=== PATIENT | male | born 1955 | race Caucasian/White ===

== ENCOUNTER 2022-02-25 22:36 | Inpatient (IN) | payer MEDICARE, SELFPAY ==
--- NOTE | 2022-02-25 22:45 | RT.EKG_ITS ---
APPROVED REPORT Exam: Resting ECG Reason for Exam: confusion Patient Location: E HR:60 bpm ECG Measurements Heart Rate 60 AXIS IL 268 P 42 QRSd 104 QRS 42 QT 444 T 32 QTc 446 Conclusion Sinus rhythm...normal P axis, V-rate 60- 99 Prolonged IL interval...IL >220, V-rate 50- 90 I have reviewed and interpreted ECG and agree with software generated interpretation.
[2022-02-25 22:46] VITALS: BP 183/83; PULSE 62; RESP 16; TEMP 36.8; O2SAT 96
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
--- NOTE | 2022-02-25 23:00 | DI.CT_ITS ---
Exam(s) CT HEAD WO EXAM: CT HEAD WO CLINICAL HISTORY: recent stroke, agressive behavior. TECHNIQUE: Imaging Protocol: Axial computed tomography images with coronal and sagittal reformatted images were created and reviewed COMPARISON: No exams were available for comparison FINDINGS: Ventricles and Extra axial spaces: Normal in size and morphology for the patient's age. Hemorrhage: None. Cerebral parenchyma: Bilateral electrodes terminating in the basal ganglia regions creating mild arleth fact. Midline shift: None. Brainstem/Cerebellum: Normal. Calvarium: Normal. Visualized Paranasal sinuses/Mastoids: Clear. Soft Tissues: Unremarkable. IMPRESSION: Brain stimulator device. No acute intracranial process. RADIATION DOSE DELIVERED: 1,048.27mGy.cm Total DLP DATA REPOSITORY: All CT scans at this facility are submitted to the National Radiology Data Registry (NRDR) Dose Index Registry (DIR) with the [employer] (ACR). RADIATION OPTIMIZATION: All CT scans at this facility use at least one of these dose optimization te chniques: automated exposure control; mA and/or kV adjustment per patient size (includes targeted exa ms where dose is matched to clinical indication); or iterative reconstruction.
[2022-02-25 23:42] LABS: Abs Immature Grans 0.02 10^3/uL (0.0-0.06); Absolute Basophil Count 0.03 10^3/uL (0.0-0.2); Absolute Eosinophil Count 0.06 10^3/uL (0.0-0.7); Absolute Lymphocyte Count 3.61 10^3/uL (1.2-3.4); Absolute Monocyte Count 0.82 10^3/uL (0.1-0.8); Absolute Neutrophil Count 6.54 10^3/uL (1.2-6.7); Basophils % 0.3; Eosinophils % 0.5; HCT 37.6 % (40.0-50.0); HGB 12.6 g/dL (13.5-17.5); Immature Grans % 0.2; Lymphocytes % 32.6; MCHC 33.5 % (32.0-36.0); MCV 87 fL (80-95); MPV 11.8 fL (8.0-11.0); Monocytes % 7.4; Platelet Count 149 10^3/uL (130-400); RBC 4.34 10^6/uL (4.36-5.78); RDW 13.5 % (11.8-14.1); RDW-SD 42.4 fL; WBC 11.08 10^3/uL (4.4-10.8)
[2022-02-25 23:43] LABS: Source Nasal/Nares
[2022-02-25 23:58] LABS: Ammonia < 10 umol/L (11-32)
[2022-02-26 00:14] LABS: ALT 46 U/L (16-63); AST 22 U/L (15-37); Albumin 4.5 g/dL (3.4-5.0); Alkaline Phosphatase 99 U/L (46-116); Anion Gap 9.7 mmol/L (3-11); BUN 16 mg/dL (7-18); Bilirubin, Total 1.1 mg/dL (0.2-1.0); CO2 26.3 mmol/L (21.0-32.0); Calcium 9.5 mg/dL (8.5-10.1); Chloride 104 mmol/L (98-107); ETHANOL BLOOD < 3.0 mg/dL (<10); Glucose 143 mg/dL (74-106); Potassium 3.7 mmol/L (3.5-5.1); Sodium 140 mmol/L (136-145); TSH (W/Ref FT4) 3.56 uIU/mL (0.36-3.74); Total Protein 7.4 g/dL (6.4-8.2)
[2022-02-26 00:26] LABS: Acetaminophen < 2 ug/mL (10-30); Salicylate 4.8 mg/dL (<2.8)
--- NOTE | 2022-02-26 00:38 | DI.VRAD_ITS ---
PROCEDURE INFORMATION: Exam: CT Head Without Contrast Exam date and time: 02/25/2022 11:48 PM Age: 66 years old Clinical indication: Recent stroke, agressive behavior; Prior surgery; Surgery date: 6+ months; Surgery type: Implanted device TECHNIQUE: Imaging protocol: Computed tomography of the head without contrast. Radiation optimization: All CT scans at this facility use at least one of these dose optimization techniques: automated exposure control; mA and/or kV adjustment per patient size (includes targeted exams where dose is matched to clinical indication); or iterative reconstruction. COMPARISON: No relevant prior studies available. FINDINGS: Limitations: Intracranial and subcutaneous electrodes cause streak artifact, which limits evaluation of the adjacent brain parenchyma. Tubes, catheters and devices: There is evidence of bilateral electrodes terminating in the region of the subthalamic nuclei. Brain: There is a region of hypodensity seen in the left parietal and left temporal regions, which may represent an infarct. There is a linear region of hyperdensity seen within this infarct (image 24, series 8). No mass effect or midline shift. Cerebral ventricles: The ventricles are prominent in size, at least in part due to global cerebral volume loss. Paranasal sinuses: The paranasal sinuses are clear. No air-fluid levels. Mastoid air cells: The mastoid air cells are unremarkable. Bones/joints: No acute fracture. Soft tissues: No subcutaneous hematoma. IMPRESSION: 1. Limited examination due to streak artifact from electrodes. Evidence of small prior infarct in the left parietal and left temporal lobes. Linear hyperdensity in the region of infarct, may represent microhemorrhage, cortical laminar necrosis or evolving hematoma. Compare with prior imaging for stability. 2. THIS REPORT CONTAINS FINDINGS THAT MAY BE CRITICAL TO PATIENT CARE. The findings were verbally communicated via telephone conference with Dr. ALEXIS, at 12:28 AM EDT on 02/26/2022. The findings were acknowledged and understood. Dictated and Authenticated by: Kaylyn Carolina MD. Ordering:RYLEE Pereira MD
[2022-02-26 00:42] LABS: COVID-19 PCR Negative (Negative)
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
[2022-02-26 02:46] LABS: Bilirubin Negative (Negative); Blood Negative (Negative); Clarity Clear (Clear); Glucose Negative (Negative); Ketones Negative (Negative); Leukocyte Esterase Negative (Negative); Nitrite Negative (Negative); Specific Gravity 1.025 (1.005-1.025); Urobilinogen 0.2 EU/dL (Up TO 0.2); pH 5.5 (5-8)
[2022-02-26] MEDS: Acetaminophen 500 MG TAB 1000 MG PO (03:28)
--- OUTSIDE RECORDS SUMMARY | 2022-02-26 03:58 | XMS_ITS | Encounter Summary ---
:1955 Author Organization [facility] [place] [address] Care Team Providers Name Role Phone Griselda Stanley MD Primary Care Provider Reason for Referral Physical Therapy (Routine) - Pending Review Specialty Diagnoses / Procedures Referred By Contact Refer red To Contact Physical Therapy Diagnoses At risk for falls Winnie Stevenson, Physical Therapy, [facility] [address] [place], [place] [id number] [place] [id number] Referral ID Status Reason Start Expiration Visits Visits Date Date Requested Authorized [id number] Pending Evaluate and 09/04/2021 03/03/2022 12 12 Review Treat Reason for Visit Reason Onset Date Comments Other 09/04/2021 Encounter Details Date Type Department Care Team Description 09/04/2021 Telephone Neurology at [facility] Winnie Stevenson, [facility] [place] [address] [place] [address] NEUROLOGY [place], [place] [address] (Wo rk) Social History Tobacco Use Types Packs/Day Years Used Date Former Smoker Cigarettes Quit: 12/10/18 78 Smokeless Tobacco: Never Used Alcohol Use Standard Drinks/Week Comments No 0 (1 standard drink = 0.6 oz pure alcoho l) Physical Activity Answer Date Recorded On average, how many days per week do you engage in moderate 3 days 09/22/2021 to strenuous exercise (like walking fast, running, jogging, dancing, swimming, biking, or other activities that cause a light or heavy sweat)? On average, how many minutes do you engage in exercise at No t asked this level? Financial Resource Strain Answer Date Recorded How hard is it for you to pay for the very basics like Somew hat hard 09/22/2021 food, housing, medical care, and heating? Food Insecurity Answer Date Recorded Within the past 12 months, you worried that your food would Never true 09/22/2021 run out before you got money to buy more. Within the past 12 months, the food you bought just didn't N ever true 09/22/2021 last and you didn't have money to get more. Transportation Needs Answer Date Recorded In the past 12 months, has lack of transportation kept you f rom No 09/22/2021 medical appointments or from getting medications? In the past 12 months, has lack of transportation kept you f rom No 09/22/2021 meetings, work, or getting things needed for daily living? Housing Stability Answer Date Recorded In the last 12 months, was there a time when you were not ab le No 09/22/2021 to pay the mortgage or rent on time? In the last 12 months, how many places have you lived? 1 09/22/2021 In the last 12 months, was there a time when you did not hav e a No 09/22/[address] or slept in a nursing home (including now)? Sex Assigned at Date Recorded Not on file documented as of this encounter Miscellaneous Notes Telephone Encounter - Roxanna Alatorre RN - 09/04/2021 1:20 PM EST I phoned spouse back. Spouse reports pt is losing ground. She states he is having severe issues with his right ankle andfoot. She states it bends down under and won't support his weight. She has tried braces and sturdy shoes but by the afternoon he can barely walk as his foot won't support his weight and he needs to usea wheelchair. She states he is sitting down now and his Left foot is normal but his right foot is resting on it's side/ankle. She states he has no control of his right foot and he falls a lot. She states he has no control of his right foot and can't straighten it. She states they will try PT again but states they don't really suggest what type of brace would be right. She states they tell me that is not my job. She states PT referral should go to [facility]. Plan: I will forward to Winnie Stevenson for review. Telephone Encounter - Roxanna Alatorre RN - 09/04/2021 9:22 AM EST I attempted to phone pt/spouse to see how pt is doing. There was no answer. Message left on named voice mail to call back [phone]. documented in this encounter Plan of Treatment Upcoming Encounters Date Type Specialty Care Team Description 03/20/2022 Office Visit Neurology Vishnu Hooper MD [facility] NEUROLOGY DEPT. [place], [place] [address] (Wo rk) Scheduled Referrals Name Type Priority Associated Diagnoses Order S chedule Referral to Outpatient Referral Routine At risk for falls Ord ered: Physical Therapy 09/04/2021 documented as of this encounter Visit Diagnoses Diagnosis At risk for falls Personal history of fall documented in this encounter Care Teams Resolution Manager Relationship Specialty Start Date End Date Griselda Stanley MD PCP - General 07/04/10 02/03/22 documented as of this encounter
--- OUTSIDE RECORDS SUMMARY | 2022-02-26 03:58 | XMS_ITS | Encounter Summary ---
:1955 Author Organization [facility] [place] [place] [address] Care Team Providers Name Role Phone Griselda Stanley MD Primary Care Provider Reason for Visit Reason Onset Date Comments Medical Care Coordination 05/03/2021 Encounter Details Date Type Department Care Team Description 05/03/2021 Telephone Neurology at [facility] Margareth Rose, Medical Care [facility] [place] [address] Social History Tobacco Use Types Packs/Day Years [...] place to sleep or slept in a assisted (including now)? Sex Assigned at Date Recorded Not on file documented as of this encounter Miscellaneous Notes Telephone Encounter - Margareth Rose MSW - 05/03/2021 10:27 AM EDT Left message for Ana Lilia and Marcell to follow up on if they had been able to obtain the U-Step walker recommended by PT. Encouraged them to call back if ART G[employer] could be of support and/or assistance ROSCOE Nick Continuing Glassware Defect Repairer Outpatient Neurology Clinic Pager [phone] documented in this encounter Plan of Treatment Upcoming Encounters Date Type Specialty Care Team Description 03/20/2022 Office Visit Neurology Vishnu Hooper MD [facility] NEUROLOGY DEPT. [place], [place] [address] (Wo rk) documented as of this encounter Visit Diagnoses Not on filedocumented in this encounter Care Teams Supply Clerk Relationship Specialty Start Date End Date Griselda Stanley MD PCP - General 07/04/10 02/03/22 documented as of this encounter
--- OUTSIDE RECORDS SUMMARY | 2022-02-26 03:58 | XMS_ITS | Encounter Summary ---
:1955 Author Organization [facility] [place] [address] Care Team Providers Name Role Phone Griselda Stanley MD Primary Care Provider Encounter Details Date Type Department Care Team Description 07/12/2021 Telephone Neurology at [facility] Winnie Stevenson, [facility] [place] [address] [facility] [phone] NEUROLOGY [place] [phone] (Wo rk) Social History Tobacco Use Types [...] place to sleep or slept in a jail (including now)? Sex Assigned at Date Recorded Not on file documented as of this encounter Miscellaneous Notes Telephone Encounter - Winnie Stevenson APRN - 07/12/2021 4:43 PM EST 07/12/21 4:43 PM Started taking Amantadine 200mg daily on 07/05 (last Saturday). 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 Hallucinations started on Saturday. Saturday Marcell didn't know who Ana Lilia was. He is currently unable to feed himself. She started giving him one pill a day on Saturday. She feels he is a little better, he can at least call out for her and hold a conversation now. 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 Picking at objects that aren't there. He has had 2 previous UTIs over the previous 2 years. Ana Lilia will call PCP and have a UA done. I will have our nurse fax this over first thing in the morning. I also prescribed some low dose Seroquel, 12.5mg nightly prn to help with hallucinations/behavior should Ana Lilia need this for safety. She currently feels he and she are safe. Last QTc in December She wonders what to do about his ankle. This started last December when he was hospitalized. We went overthe EMG studies which showed some peripheral neuropathy. I explained that there can be several causes for this including diabetes, smoking, etc. Once we get his mentation stabilized, we should bring him back into look at other possible causes. Winnie Stevenson APRN documented in this encounter Plan of Treatment Upcoming Encounters Date Type Specialty Care Team Description 03/20/2022 Office Visit Neurology Vishnu Hooper MD [facility] NEUROLOGY DEPT. [place], [place] [address] (Wo rk) Scheduled Orders Name Type Priority Associated Diagnoses Order S chedule Urinalysis with reflex Lab Routine Altered mental sta tus, Expected: 07/12/2021, Culture unspecified altered Expires: 01/10/2023 mental status type documented as of this encounter Visit Diagnoses Diagnosis Altered mental status, unspecified alter ed mental status type documented in this encounter Care Teams Caser Up Relationship Specialty Start Date End Date Griselda Stanley MD PCP - General 07/04/10 02/03/22 documented as of this encounter
--- OUTSIDE RECORDS SUMMARY | 2022-02-26 03:58 | XMS_ITS | Encounter Summary ---
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 Acute CVA (cerebrovascular accident) Cerebrovascular accident (CVA), unspecified mechanism Aphasia Dysarthria Gilbert Barksdale MD [facility] Neurology [address] [place] [phone] Referral ID Status Reason Start Date Expiration Visits Visits Date Requested Authorized [id number] Authorized Consult, 02/13/2022 02/13/2023 1 1 Test & Treat Encounter Details Date Type Department Care Team Description 02/13/2022 Transcribe Orders eDH Incoming Rachel Barksdale i schemic stroke; Referrals [place] Acute ischemic left middle cerebral sarah ry (MCA) stroke; [phone] [address] [facility] Acute CVA (cerebrovascular accident); [place], [place] Cerebrovascul ar accident (CVA), unspecified mechanism; [id number] Aphasia; [phone] Dysarthria (Work) Social History Tobacco Use Types Packs/Day Years [...] place to sleep or slept in a skilled nursing (including now)? Sex Assigned at Date Recorded Not on file documented as of this encounter Plan of Treatment Upcoming Encounters Date Type Specialty Care Team Description 03/20/2022 Office Visit Neurology Vishnu Hooper MD [facility] NEUROLOGY DEPT. [place], [place] [address] (Wo rk) Scheduled Referrals Name Type Priority Associated Diagnoses Order S chedule Referral to Outpatient Referral Routine Arterial ischemic Ord ered: Neurology stroke 02/13/2022 Acute ischemic left middle cerebral artery (MCA) str tres Acute CVA (cerebrovascular accident) Cerebrovascular accident (CVA), unspecified mechanism Aphasia Dysarthria documented as of this encounter Visit Diagnoses Diagnosis Arterial ischemic stroke Unspecified cerebral artery occlusion wi th cerebral infarction Acute ischemic left middle cerebral sarah ry (MCA) stroke Unspecified cerebral artery occlusion wi th cerebral infarction Acute CVA (cerebrovascular accident) Cerebrovascular accident (CVA), unspecif ied mechanism Aphasia Dysarthria documented in this encounter Care Teams Typesetting Machine Tender Relationship Specialty Start Date End Date None PCP - General 02/04/22 None documented as of this encounter
--- OUTSIDE RECORDS SUMMARY | 2022-02-26 03:58 | XMS_ITS | Encounter Summary ---
:1955 Author Organization [facility] [place] [address] Care Team Providers Name Role Phone Griselda Stanley MD Primary Care Provider Reason for Visit Reason Onset Date Comments Medical Care Coordination 04/13/2021 Encounter Details Date Type Department Care Team Description 04/13/2021 Notes Only Neurology at [facility] Margareth Rose, Medical Care [facility] [place] [address] Social History Tobacco Use Types Packs/Day [...] place to sleep or slept in a detention (including now)? Sex Assigned at Date Recorded Not on file documented as of this encounter Progress Notes Margareth Rose, VICTORIAN LITERATURE PROFESSOR - 04/13/2021 11:56 AM EDT Received referral from [facility] to assist Marcell and , Ana Lilia, with determining which walker to get andif it will be covered by insurance. Chart reviewed. Called their home phone and spoke with Ana Lilia. Established rapport and spent time getting to know Ana Lilia and Marcell. Ana Lilia reports she and Marcell have been for 47 years with his Parkinson's disease diagnosis being about 25 years ago. Ana Lilia shares that they have one son, who resides 1.5 hours and a 4 yo granddaughter that they see at least monthly. Ana Lilia reports that her family all reside in [place], but one of patient's siblings is more local. Ana Lilia feels fortunate that she is able to continue working (remotely currently) so that she can provide support to Marcell whom she feels cannot be left alone for extended periods at this time due to recent falls. Ana Lilia notes that due to her employment, they do not qualify for Medicaid and the only respite time she gets is her weekly trip the dump and the grocery store. VICTORIAN LITERATURE PROFESSOR normalized the challenges of family caregiving and validated Ana Lilia's emotions. Ana Lilia acknowledged some feelings of grief and anger and feels like she can't share these feelings with family/friends.VICTORIAN LITERATURE PROFESSOR offered support. Discussed caregiving support groups and Ana Lilia was open to receiving more information on this. VICTORIAN LITERATURE PROFESSOR agreed to send information on [employer] forum that has been started by and the resources available at [email or web address] Also reinforced that this VICTORIAN LITERATURE PROFESSOR would be available for ongoing support to assist not just Marcell but Ana Lilia as well Discussed Marcell's recent falls and current care needs. Ana Lilia reports that she recently purchased an electric scooter as she felt it would allow Marcell to remain as independent possible. They have not yet received it, but did obtain both a transport wheelchair and a standard walker (which is too short forRick per Ana Lilia). Ana Lilia would like to get a more appropriate walker for Marcell through insurance. Home health services have ended for Marcell, but he continues to do outpatient PT at [facility] twice/week. Sent Ana Lilia resources via email. Reached out to the rehab department at [facility] and am awaiting a call back to see if they can recommend the most appropriate walker. ROSCOE Nick Department of Neurology Continuing College Instructor documented in this encounter Plan of Treatment Upcoming Encounters Date Type Specialty Care Team Description 03/20/2022 Office Visit Neurology Vishnu Hooper MD [facility] NEUR[facility] DEPT. [place], [place] [address] (Wo rk) documented as of this encounter Visit Diagnoses Not on filedocumented in this encounter Care Teams Historic Sites Registrar Relationship Specialty Start Date End Date Griselda Stanley MD PCP - General 07/04/10 02/03/22 documented as of this encounter
--- OUTSIDE RECORDS SUMMARY | 2022-02-26 03:58 | XMS_ITS | Encounter Summary ---
:1955 Author Organization [facility] [place] [address] Care Team Providers Name Role Phone Griselda Stanley MD Primary Care Provider Reason for Visit Reason Onset Date Comments Medical Care Coordination 11/20/2021 Vacation/respi te Encounter Details Date Type Department Care Team Description 11/20/2021 Notes Only Neurology at [facility] Margareth Rose, Medical Care [facility] (Vacation/respite) [place] [phone] Social History Tobacco Use Types Packs/Day [...] place to sleep or slept in a long-term (including now)? Sex Assigned at Date Recorded Not on file documented as of this encounter Progress Notes Margareth Rose MSW - 11/20/2021 11:59 PM EDT Received voicemail from Arlyn asking for guidance on her taking a vacation with family. Called Arlyn who relayed that she has been invited by her sister and two friends to join them for a vacation in May. Arlyn reports feeling guilty about leaving Marcell in the care of someone else. Reinforced the importance of caregiver respite and normalized her feelings of ambiguity about going.Provided reassurance that she should not feel guilty as she is being thoughtful to Marcell's needs and preferences. Encouraged her to connect with a personal care agency prior to her trip, so she and Marcell can meet the workers and build trust with them. ROSCOE Nick Continuing Quality Management Coordinator Outpatient Neurology Clinic Pager [phone] documented in this encounter Plan of Treatment Upcoming Encounters Date Type Specialty Care Team Description 03/20/2022 Office Visit Neurology Vishnu Hooper MD [facility] [place] NEUROLOGY DEPT. [place], [place] [address] (Wo rk) documented as of this encounter Visit Diagnoses Not on filedocumented in this encounter Care Teams Golf Cart Attendant Relationship Specialty Start Date End Date Griselda Stanley MD PCP - General 07/04/10 02/03/22 documented as of this encounter
--- OUTSIDE RECORDS SUMMARY | 2022-02-26 03:58 | XMS_ITS | Encounter Summary ---
:1955 Author Organization [facility] [place] [address] Care Team Providers Name Role Phone Griselda Stanley MD Primary Care Provider Reason for Visit Reason Onset Date Comments Medical Care Coordination 09/01/2021 Ongoing caregi lupe support Encounter Details Date Type Department Care Team Description 09/01/2021 Notes Only Neurology at [facility] Margareth Rose, Medical Care [facility] ACQUISITION SPECIALIST Coordinat ion ([address] caregiver support) [place] [address] Social History Tobacco Use Types Packs/Day [...] place to sleep or slept in a m[facility]p (including now)? Sex Assigned at Date Recorded Not on file documented as of this encounter Progress Notes Margareth Rose MSW - 09/01/2021 11:59 PM EST Contacted Arlyn (Marcell's ) at home to reassess their functioning. Arlyn reports that Marcell has gotten weaker as his ankle continues to give him trouble making transfers and ambulation difficult. They do not have any family nearby, so Arlyn tries to limit leaving the house to once/week for groceries. She tries to get Marcell all set up before she leaves and makes him promise not to get up. She did share an incident when she went outside early in the morning and he gotout of bed and fell trying to look for her. They are planning to travel to [place] to visit family. Arlyn's brother has arranged a hotel for them andhis house is fully accessible as he has a disabled son. Arlyn is aware of their upcoming appointment, but is disappointed that she never heard back about moving up appointment or getting referrals (if needed) for Marcell's ankles. Agreed to forward requests again on Saturday and follow up with her. ROSCOE Nick Continuing Professor Of Business Administration Outpatient Neurology Clinic Pager [phone] documented in this encounter Plan of Treatment Upcoming Encounters Date Type Specialty Care Team Description 03/20/2022 Office Visit Neurology Vishnu Hooper MD [facility] NEUR[facility] DEPT. [place], [place] [address] (Wo rk) documented as of this encounter Visit Diagnoses Not on filedocumented in this encounter Care Teams Trailer Sections Assembler Relationship Specialty Start Date End Date Griselda Stanley MD PCP - General 07/04/10 02/03/22 documented as of this encounter
--- OUTSIDE RECORDS SUMMARY | 2022-02-26 03:58 | XMS_ITS | Encounter Summary ---
:1955 Author Organization [facility] Address [facility] [place] [address] Care Team Providers Name Role Phone Griselda Stanley MD Primary Care Provider Reason for Visit Reason Onset Date Comments Medical Care Coordination 11/07/2021 Ongoing suppor t Encounter Details Date Type Department Care Team Description 11/07/2021 Notes Only Neurology at [facility] Margareth Rose, Medical Care [facility] TILE CONDUIT LAYER Coordinat ion ([address] support) [place] [phone] Social History Tobacco Use Types Packs/Day [...] place to sleep or slept in a [place] (including now)? Sex Assigned at Date Recorded Not on file documented as of this encounter Progress Notes Margareth Rose MSW - 11/07/2021 11:59 PM EDT Contacted Arlyn to see how she and Marcell have been doing. Arlyn reports Marcell did some more PT and hada new brace recommended for his ankle, but Medicare has denied paying for it as they had previously covered a non-customized brace. Arlyn reports they are in the process of appealing the denial and in the meantime, she has learned to wrap his ankle to give it more support. Arlyn reports that Marcell's sister and with the support of Marcell's family they were able totravel down and see her. Arlyn was also eager to share that she had been able to take Marcell with her to the grocery store where he used a motorized cart and we shopped together like a real couple. Arlyn continues to balance work and Marcell's care and notes that she has not been able to connect withany of the support groups or caregiver classes due to her work schedule. Sent her the information roselyn group that meets on Saturday and is comprised of two groups (one for patients and one for carers). Encouraged Arlyn to reach out as needed for support and resources and provided assurance that I would continue to check in periodically. Margareth Rose, TILE CONDUIT LAYER Continuing Cook Pressure Outpatient Neurology Clinic Pager [phone] documented in this encounter Plan of Treatment Upcoming Encounters Date Type Specialty Care Team Description 03/20/2022 Office Visit Neurology Vishnu Hooper MD [facility] NEUROLOGY DEPT. [place], [place] [address] (Wo rk) documented as of this encounter Visit Diagnoses Not on filedocumented in this encounter Care Teams Therapeutic Dietitian Relationship Specialty Start Date End Date Griselda Stanley MD PCP - General 07/04/10 02/03/22 documented as of this encounter
--- OUTSIDE RECORDS SUMMARY | 2022-02-26 03:58 | XMS_ITS | Encounter Summary ---
:1955 Author Organization [facility] [address] Care Team Providers Name Role Phone None Primary Care Provider Unavailable Reason for Visit Reason Comments Cerebrovascular Accident Encounter Details Date Type Department Care Team Description 02/04/2022 Emergency Emergency Department Dhruv Limon Ce rebrovascular accident [facility] ([facility]), unspecified [facility] mechanism [facility] EMERGENCY MEDICINE [place] [phone] Social History Tobacco Use Types Packs/Day Years Used Date Never Assessed Physical Activity Answer Date Recorded On average, [...] on file documented as of this encounter Last Filed Vital Signs Vital Sign Reading Time Taken Comments Blood Pressure 150/76 02/04/2022 12:45 PM EDT Pulse 69 02/04/2022 12:45 PM EDT Temperature 36.3 ??C (97.3 ??F) 02/04/2022 11:18 AM EDT Respiratory Rate 16 02/04/2022 12:45 PM EDT Oxygen Saturation 95% 02/04/2022 12:45 PM EDT Inhaled Oxygen Concentration - - Weight - - Height - - Body Mass Index - - documented in this encounter Medications at Time of Discharge Medication Sig Dispensed Refills Start Date End Date QUEtiapine (SEROquel) 25 Take 0.5 tablets by 5 tablet 0 mg Tablet mouth nightly as needed. gabapentin (Neurontin) 100 mg daily. 0 02/16/2021 100 mg Capsule metoprolol tartrate Take 50 mg by mouth 0 021 (Lopressor) 100 mg daily. Half in the Tablet morning and half at night DULoxetine DR (Cymbalta) Take 60 mg by mouth 2 0 12/01/2020 60 mg Capsule, Delayed times daily. Release(E.C.) metFORMIN (GLUCOPHAGE) Take 1,000 mg by mouth 0 0 11/09/2020 1,000 mg Tablet 2 times daily. metoprolol succinate XL Take 1 tablet by mouth 30 tablet 12 12/27/2020 (Toprol-XL) 50 mg Tablet daily. Sustained Release 24 hr blood sugar diagnostic by Other route. Use as 0 strips Strip instructed carbidopa-levodopa Take 1 tablet by mouth 150 tablet 3 08/23 (Sinemet) 25-250 mg 5 times daily. Take at TabletIndications: 9am, 12noon, 3pm, 6pm Parkinson's disease and 9 pm polyethylene glycol Take 17 g by mouth 14 each 0 12/30/19 20 (Miralax) 17 gram Powder daily as needed. in Packet atorvastatin (Lipitor) Take 1 tablet by mouth 90 tablet 3 0 12/30/2019 10 mg Tablet every evening. glipiZIDE (Glucotrol) 5 Take 5 mg by mouth 0 mg Tablet daily. entacapone (Comtan) 200 Take 1 tablet by mouth 90 tablet 5 11/30/2019 mg Tablet 3 times daily. Take with each dose of carbidopa-levodopa. Aware of previous intolerance because nausea acetaminophen (TYLENOL) Take 1,000 mg by mouth 0 500 mg Tablet every 6 hours as needed for Pain. cholecalciferol, Vitamin Take 1,000 Units by 0 D3, 1,000 unit Tablet mouth daily. omeprazole (PRILOSEC) 40 Take 40 mg by mouth 0 mg Capsule, Delayed daily as needed. 1 Release(E.C.) capsule three times weekly documented as of this encounter ED Notes Preet Mane MD - 02/04/2022 11:14 AM EDT ED Resident Note HPI: Heladio Zapata Unknown is a 66 y.o. male who presents to the Emergency Department as a stroke alert. History is limited as the patient is not speaking, however [facility]. Last known well was at 0530. He is not on blood thinners. His fast ED score was 3. Little additional history is obtainable as the patient is not speaking. He does have a known history of Parkinson's disease. Pt was seen under the supervision of an attending physician. Review of Systems Limited 2/2 patient mental status except as per HPI. Past Medical and Surgical Histories, Social History, Medications, Allergies were reviewed in the chart. Physical Exam General: Opening eyes and responding to commands appropriately, making noises but not answering questions. HEENT: Normocephalic/atraumatic Neck: Trachea midline Cardiovascular: RRR Pulmonary: LCTAB Abdomen: Soft, nondistended, no TTP, no rebound/guarding Skin: [place], warm, dry Extremities: No deformities. Neuro: CN II-XII grossly intact bilaterally. Garbled speech. Strength 4/5 RUE and RLE and 5/5 LUE and LLE. ED Course: I have reviewed labs and imaging, images and available reports, and they are significant for: No orders to display Assessment and Plan: 66 y.o. male presents to the emergency department with right arm and right leg weakness as well as new difficulty with speaking. Patient was made a stroke alert in the prehospital setting and was met on his arrival by ED staff as well as neurology staff. Physical exam is pertinent for right-sided weakness. Please see details of neurology note for detailed neurologic exam. Patient was taken emergentlyfor CT CTA of the head. This demonstrated a left MCA occlusion. Patient was given rectal aspirin perdiscussion with neurology. He is outside the tPA window. As we have no neuro interventional radiology capability at this hospital, we will transport the patient to another facility for thrombectomy. Neurology was able to call and find an accepting service at the [facility] and the patient was transported by helicopter for emergent thrombectomy. Preet Mane MD Resident 02/04/22 1409 Associated attestation - Dhruv Limon DO - 02/05/2022 9:29 AM EDT ED ATTENDING ATTESTATION The patient was seen in conjunction with the resident physician. I have independently performed the melton portions of the history and physical exam. I have personally reviewed nursing notes, vital signs,and diagnostic studies including labs, imaging studies and EKGs. I have discussed the details of the case with the resident and agree with the assessment and plan as described in the resident's note, unless stated otherwise in my separate note. 66 yo male w parkinsons BIBA for acute dysphasia starting approximately 0530, per . On exam, hasgarbled intelligible speech and right side weakness, with drift. Glc normal. Stroke pager activated upon initial eval and examination. CT/CTA performed and revealed L M1 occlusion. ASA given, out of window for tPA. Given no neuro intervention services today at [facility], in consultation with stroke neuro, decision to transfer to [facility] for neuro interventional services. Patient and updated, consented angela. Did this case involve critical care? Yes CRITICAL CARE DOCUMENTATION: Is there a high potential of sudden, clinically significant, or life threatening deterioration? Yes Are there life and/or organ supporting interventions that require frequent personal assessment and manipulation or support to treat/prevent vital organ failure/deterioration? yes I personally performed 30 minutes of aggregate critical care time exclusive of procedures and teaching during this emergency department visit. This includes time spent during direct patient evaluation and reassessment, interpreting diagnostic tests, directing life and/or organ supporting interventions, and documentation. documented in this encounter Miscellaneous Notes Consult Note - Madison Ascencio MD - 02/04/2022 12:26 PM EDT Images from the original note were not included. . Neurology Admission History and Physical Patient name: Heladio Zapata Unknown Date of : 1955 PCP: No primary care provider on file. Stroke Assessment: Date last well known:: 02/04/22 Time last well known:: 05 Date of discovery of symptoms:: 02/04/22 Time of discovery of symptoms:: 0830 The time difference from patients last known well to ED arrival OR inpatient stroke alert was (choose one): Greater than 4.5 hours Date acute stroke team was at bedside:: 02/04/22 Time acute stroke team was at bedside:: 1110 CT interpretation date: 02/04/22 CT interpretation time:: 1145 Was dysphagia screen performed?: No (Patient aphasic and not following commands. Not appropiate) FAST-ED Score = 2 ??? Facial Palsy: 0 ??? Arm Weakness: 1 ??? Speech Change: 1 ??? Eye Deviation: 0 ??? Denial/Neglect: 0 CC: Muted and R arm weakness HPI: Heladio Zapata Unknown is a 66 y.o. male With PMH of PD s/p DBS who presents for garble speech and R UE weakness. Patient was in his usual state of health, LKW was 530 am today. Then found him at 830 am with Rarm weakness and garble speech. Family called EMS and he was transferred to [facility]. mentioned that he was not speaking and she noted the R arm weakness. No previous trauma. No blood thinners. No recent traumas or hospitalizations. Baseline, he has PD on DBS. Walks with walker, ADLs independent with some supervision. No concern for memory problems. Home Medications: No current facility-administered medications on file prior to encounter. No current outpatient medications on file prior to encounter. Current Medications: Scheduled Meds: Past Medical & Surgical History: No past medical history on file. No past surgical history on file. Allergy: Not on File Family History: No family history on file. Social History Socioeconomic History ??? Marital status: Not on file Spouse name: Not on file ??? Number of children: Not on file ??? Years of education: Not on file ??? Highest education level: Not on file Occupational History ??? Not on file Tobacco Use ??? Smoking status: Not on file ??? Smokeless tobacco: Not on file Substance and Sexual Activity ??? Alcohol use: Not on file ??? Drug use: Not on file ??? Sexual activity: Not on file Other Topics Concern ??? Not on file Social History Narrative ??? Not on file Social Determinants of Health Financial Resource Strain: Not on file Food Insecurity: Not on file Transportation Needs: Not on file Physical Activity: Not on file Housing Stability: Not on file Review of systems: Not able to perform Physical Exam: GCS Scale Vitals: Temp: [36.3 ??C (97.3 ??F)] Heart Rate: [67] Resp: [16] BP: (178)/(95) SpO2: [95 %] Heart Rate from SpO2: -- Gen: Patient of apparent stated age, NAD Neck: Supple,no occipital tenderness Neuro Exam: MS: Alert, muted, follows simple commands of squeezing fingers and moving extremities. Does not repeat his name. CN: PERRL, EOMI, tracks examiner Facial not possible to test Hearing - hard hearing baseline Does not open mouth to command. At baseline he does not smile due to rigidity. DBS in place for parkinson in place. Motor: Normal bulk and tone. UE: 5/5 R, 5/5 L Maintains arms for more than 10 seconds. Mild pronator drift R arm LE: 5/5 R, 5/5 L Sensation: Intact to light touch, temperature, and vibration throughout Reflexes: DTRs 2+ R, 2+ L Biceps 2+ R, 2+ L Brachioradialis 2+ R, 2+ L Triceps 2+ R, 2+ L Patellar 2+ R, 2+ L Achilles tendon Toes - R down, L down Coordination: Pilling rolling tremor in R hand. Gait: Not tested NIH Stroke Scale NIH Stroke Scale Date 02/04/22 NIH Stroke Scale Time 1141 Level of Consciousness 0 LOC Questions 1 LOC Commands 1 Best Gaze 0 Vision 0 Facial Palsy 0 Motor Arm, Left 0 Motor Arm, Right 0 Motor Leg, Left 0 Motor Leg, Right 0 Limb Ataxia 0 Sensory 0 Best Language 3 Dysarthria 1 Extinction and Inattention: 0 NIH Total Score 6 Labs: Recent Results (from the past 24 hour(s)) POCT Glucose Result Value Ref Range POC Glucose 148 65 - 199 mg/dL BLOOD GAS 2 VENOUS Result Value Ref Range pH Manny 7.37 7.32 - 7.42 pCO2 Manny 44 41 - 51 mmHg pO2 Manny 20 (L) 25 - 40 mmHg HCO3 Manny 24.7 mmol/L BE Manny -0.6 mmol/L Hgb Blood Gas 12.7 (L) 13.7 - 16.5 g/dL O2HB Manny 30.1 % COHB Manny 1.8 % METHB Manny 1.1 <=1.5 % Na Whole Blood 142 135 - 145 mmol/L K Whole Blood 4.3 3.5 - 5.0 mmol/L ICa Whole Blood 1.16 1.15 - 1.33 mmol/L CL Whole Blood 105 98 - 107 mmol/L Gluc Whole Bld 140 65 - 199 mg/dL Lactate WB 2.0 0.5 - 2.2 mmol/L BGas Source Venous Prothrombin Time Result Value Ref Range PT 12.2 9.4 - 12.5 sec INR 1.1 APTT Result Value Ref Range PTT 27 25 - 37 sec Basic Metabolic Panel (non-fasting) Result Value Ref Range Glucose Lvl 151 65 - 199 mg/dL BUN 12 10 - 20 mg/dL Creatinine 0.86 0.80 - 1.50 mg/dL Sodium 142 135 - 145 mmol/L Potassium 4.3 3.5 - 5.0 mmol/L Chloride 106 98 - 107 mmol/L CO2 25 22 - 31 mmol/L Anion Gap 11 5 - 15 mmol/L Calcium 9.3 8.5 - 10.5 mg/dL Estimated GFR 95 >=60 mL/min/1.73 m?? Hemogram Result Value Ref Range WBC 8.3 4.0 - 9.5 x10(3)/mcL RBC 4.33 (L) 4.58 - 5.54 x10(6)/mcL Hemoglobin 12.5 (L) 13.7 - 16.5 g/dL Hematocrit 37.2 (L) 40.5 - 48.5 % MCV 85.9 82.9 - 93.1 fL MCH 28.9 27.5 - 32.1 pg MCHC 33.6 32.0 - 35.7 g/dL Platelets 144 (L) 145 - 357 x10(3)/mcL RDWSD 43.9 36.0 - 45.0 fL RDWCV 14.0 (H) 11.4 - 13.8 % MPV 11.6 7.6 - 12.9 fL nRBC % Auto 0.0 % nRBC Abs Auto 0.000 0.000 - 0.000 x10(3)/mcL Differential, Automated Result Value Ref Range Neutrophils % 66.3 % Neutr Abs (ANC) 5.48 1.70 - 6.10 x10(3)/mcL Lymphocytes % 25.0 % Lymphocytes Abs 2.1 0.9 - 3.2 x10(3)/mcL Monocytes % 7.3 % Monocyte Abs 0.6 0.3 - 0.9 x10(3)/mcL Eosinophils % 0.8 % Eosinophils Abs 0.1 0.0 - 0.4 x10(3)/mcL Basophils % 0.4 % Basophils Abs 0.0 0.0 - 0.1 x10(3)/mcL Immature Gran % 0.20 % Anneliese Gran Abs 0.02 0.00 - 0.04 x10(3)/mcL Gold Tube HOLD Result Value Ref Range Gold Hold Sample in lab. Assessment and Plan: Heladio Zapata Unknown is a 66 y.o. male with h/o With PMH of PD s/p DBS who presents for garble speech and R UE weakness. At arrival RUE weakness resolved. Patient globally aphasic with mild pronator drift in R arm. CTA showed left M1 occlusion. Patient outside of window for tpa. Patinet is transferred to [facility]. agreed and consented with transfer for Mechanical thrombectomy. Patient received ASA 300 mg and fluids. Alteplase: IV Thrombolytics decision time: 1142 Was IV Thrombolytics given?: No Other reasons (Hospital-related or other factors) 3 - 4.5 hour treatment window. Select all that apply.: Delay in patient arrival/outside window Attending accepting patient: Analy Ramirez. [facility] - Patient to be transferred to [facility] for MI Catina Rowland Martin Márquez MD Vascular Neurology Pager [phone] Neurology Attending Attestation I evaluated the patient with the Neurology Residents at the time of the stroke alert on 02/04/2022. Ihteresa reviewed the medical records and patient's history, as well as the resident???s and student's history and examination findings and I agree with the details as written. My neurologic examination confirms the resident???s findings. We formulated the assessment and plan after a detailed discussion, as documented. 66 y/o male presenting with L MCA syndrome. Initial NIHSS 6 mostly given by aphasia. Not candidate for thrombolytics as he is out of therapeutic window. Head Ct with no large area of acute ischemia or bleed. CTA reporting a distal left M1 occlusion. Unfortunately, there is no neruointervention endovascular coverage today. Patient is transferred to [facility] for consideration for endovascular treatment. Madison Ascencio MD Vascular Neurology Standard [facility] Swallow Screen: This screen is to be used to document a Swallow Screen prior to ingestion of water and /or oral medications for patients with possible stroke (Ischemic or Hemorrhagic). Exclusion Criteria: A swallow screen is not to be performed on patients who: ?? have a decreased level of consciousness. ?? are not able to follow simple commands. ?? are hypoxic, or have increasing O2 needs or may need to be intubated. ?? have a G/J tube for nutrition. ?? have a recent history of a swallowing disorder *These patients should remain NPO (HOLD MEDS) and the physician notified for further orders. Swallow Screen Using Water: None of the Exclusion Criteria as mentioned above is present? Patient is alert and sitting upright? Able to close lips and tongue is midline? Able to cough, manage oral secretions with dry voice? ONLY IF ABOVE ALL YES, Able to swallow 30 ml of water without coughing, displaying a wet voice or choking? Repeat Twice. ??? If YES to all responses, proceed with water and oral medications as well as diet as medical provider deems appropriate. Consider COMMERCIAL DRONE PILOT consult for full evaluation and diet recommendations. ??? If NO to any of the responses, stop immediately, keep patient NPO and notify physician. DBS information if needed for transfer: ?? [facility] Neurostimulator Programming Note ?? Patient ID: Timbo Su is a 66 y.o. year old male who presents in follow-up. ?? Programming note: From a symptom standpoint, he is best in the morning. Able to walk wihtout a walker without freezing. Then, later in the day, the right ankle becomes troublesome. DBS programming was performed today. Device was interrogated. Impedence checks obtained. Brain sense survey obtained, confirming leads chosen were most effective at detecting beta frequencyrange activity. Group C was modified with improved parkinsonian symptoms. ? Vishnu Hooper MD PhD [facility] Neurology ??1:43 AM ED Triage - Jenny Stephen RN - 02/04/2022 11:15 AM EDT Patient BIBA as stroke alert. Patient having new difficulty speaking. LKW 0530. Hx Parkinson's Disease with implanted devices. Can't smile at baseline. EMS reports family said no blood thinner use. EMSFAST 3. BS 148. Pt not speaking. Respiratory rate regular and unlabored. Skin flushed, warm and dry.Patient following some commands. Weaker R side. HPI (Adult) Stated Reason for Visit: Stroke alert, new difficulty with speech. Last known well 529. Hx Parkinson's Disease. Can't smile at baseline, no blood thinners History Obtained From: EMS documented in this encounter Plan of Treatment Upcoming Encounters Date Type Specialty Care Team Description 03/20/2022 Office Visit Neurology Vishnu Hooper MD [facility] NEUROLOGY DEPT. [place], [place] [address] (Wo rk) documented as of this encounter Procedures Procedure Name Priority Date/Time Associated Comments Diagnosis RAPID COVID-19 PCR STAT 02/04/2022 12:30 Resul ts for this ([facility]) PM EDT procedure are in the results section. CT HEAD WO & MULTIPHASE STAT 02/04/2022 11:52 Results for this CTA HEAD/NECK W (STROKE AM EDT proc edure are in PROTOCOL) the results section. HEMOGRAM STAT 02/04/2022 11:30 Results for this AM EDT procedure are i n the results section. DIFFERENTIAL, AUTOMATED STAT 02/04/2022 11:30 Results for this AM EDT procedure are i n the results section. GOLD TUBE HOLD STAT 02/04/2022 11:30 Results f or this AM EDT procedure are i n the results section. HC PARTIAL STAT 02/04/2022 11:30 Results for this THROMBOPLASTIN TIME AM EDT procedur e are in the results section. HC PROTHROMBIN TIME STAT 02/04/2022 11:30 Resu lts for this AM EDT procedure are i n the results section. HC CBC,PLT & AUTO DIFF STAT 02/04/2022 11:30 AM EDT BASIC METABOLIC PANEL STAT 02/04/2022 11:30 Re sults for this (NON-FASTING) AM EDT procedure are in the results section. BLOOD GAS 2 VENOUS Routine 02/04/2022 11:28 Resul ts for this AM EDT procedure are i n the results section. EKG 12-LEAD STAT 02/04/2022 11:16 Results for this AM EDT procedure are i n the results section. POCT GLUCOSE Routine 02/04/2022 11:16 Results for this AM EDT procedure are i n the results section. documented in this encounter Results COVID-19 PCR (02/04/2022 12:30 PM EDT) [facility] Method Time Signature SARS-CoV-2 Not Detected Not Detected GIUSEPPE RNA PCR [facility] Comment: This result should be interpreted in com bination with the clinical observations, patient history and epidem iological information. For testing of asymptomatic individuals, assay performa nce characteristics and clinical utility have not been evaluated. Testing for SARS-CoV-2 (Severe acute respiratory syndrome coronavirus 2, form erly known as 2019 novel coronavirus or 2019-nCoV) to aid in the diagnosis of CO VID-19 is performed using the [employer] COVID-19 Direct Assay by [employer] as authorized by the FDA issued Emergency Use Authorization (EUA). This assay is intended for In-vitro Diagnostic (IVD) use with nasopharyngeal swabs collected from individuals meeting the [facility] criteria for testing. Th e assay is performed based on the instructions for use and additional guid ance provided by the FDA. Testing is performed in the Microbiology Laboratory within the Department of Pathology and Laboratory Medicine at [facility], certified under the Clinical Laboratory Improvement Amendmen ts of 1988 (CLIA), 42 U.S.C. section 263a, to perform high complexity tests. Assay performance has been verified according to clinical laboratory regulat ory requirements. Test results are provided above. A resul t of Not Detected indicates that the viral RNA target is not present but does not preclude SARS-CoV-2 infection. False negative results may occur if a sp ecimen is improperly collected, transported or handled; if amplification inhibitors are present; or if inadequate numbers of viral particles ar e present in the specimen. A result of Detected suggests a current or recent infection and the patient is presumed to be infected. Positive and negative pr edictive values for this test are highly dependent on disease prevalence. A result of Invalid indicates the inability to conclusively determine the presence or absence of SARS-CoV-2 RNA in the sample which can be due to a vari ety of factors. Recollection is recommended in the case of an invalid re sult. CDC COVID-19 criteria for testing on hum an specimens and clinical management guidance information are available at e CDC Coronavirus Disease 2019 (COVID-19) webpage under Information fo r Healthcare Professionals (https://www.cdc.gov/coronavirus/2019-nc ov/hcp/index.html). Additional information about this and ot her EUA tests can be found in provider and patient fact sheets at the following FDA website: https://www.fda.gov/medical-devices/yvputznhool-scrslpt-5582-szeoy-06-phafygdqk- unn-rgrlpcwoprsnya-zunajlg-devices/rrotz-aknhkadwxfg-jsds SARS-CoV-2 Source [employer] FINAL INSPECTOR Swab [facility] Specimen (Source) Anatomical Collection Method Collection Time Re ceived Time Location / / Volume Laterality Nasopharyngeal Swab 02/04/2022 12:30 06/01/2022 PM EDT 1:10 PM EDT Comment: Symptoms->Surveillance Resulting Agency Comment Spec In Lab Dhruv Limon DO MICROBIOLOGY - GENERAL ORDER SHEKHAR Performing Organization Address City/State/[place] [address] Head wo & Multiphase CTA Head/Neck (THROMBECTOMY PROTOCOL) (02/04/2022 11:52 AM EDT) Anatomical Region Laterality Modality Head Computed Tomography Specimen (Source) Anatomical Collection Method Collection Time Re ceived Time Location / / Volume Laterality 02/04/2022 12:06 PM EDT Addenda Addendum by Ileana Caldera MD on 0 02/04/2022 12:42 PM EDT --------ADDENDUM #1-------- Delayed flow in the left MCA distributio n is noted. Thank you for letting us participate in the care of this patient. ??If you are a health care provider and have any questi ons regarding this report, please contact the number below. ??For patients who have questions please contact the health ocular care technologist that requested your imaging first. ? --------ORIGINAL REPORT -------- EXAMINATION: CT HEAD WO & MULTIPHASE CTA HEAD/NECK (THROMBECTOMY PROTOCOL) CLINICAL HISTORY: R arm and leg weakness and garbled speech, rule out CVA TECHNIQUE: CT of head without intravenous contrast. Multiphase CTA of the carotids and [place] is performed after the administration of 65cc of Omnipaque 350 intravenous contrast. MIP reconstruction s were created. COMPARISON: None FINDINGS: Head: Bilateral frontal approach deep br ain stimulators are present, creating streak artifact. No acute hemorrhage, ma ss effect or extra-axial collection. Probable early loss of lam-white differ entiation in the posterior opercular region. Ventricles are mildly prominent, consistent with parenchymal atrophy. Paranasal sinuses and mastoid air cells are essentially clear. CTA: No stenosis of the great vessel jesus gins arising from the aortic arch. Common carotid arteries are normal in co urse and caliber. Mild calcified plaque at the carotid bifurcations without sign ificant stenosis of the proximal internal carotid arteries. Cervical ICAs are normal in course and caliber. Minimal plaque along the cavernous ICAs without stenosis. Abrupt cut off of the left MCA distal to the anterior temporal artery with poor opacification at the MCA bifurcation. Reconstitution of multi ple MCA branches in the sylvian fissure and distally. Normal right MCA, ACAs and posterior circulation. The left vertebral artery is dominant. Vertebral arteries are normal in course and caliber throughout. Probable small left and questionable tiny right posterior communicating artery. IMPRESSION: Proximal left MCA occlusion. No acute hemorrhage. Questionable early changes of infarct in the left posterior opercular region versus artifact. Discussed with Dr. Catina Márquez by Dr. Ileana Caldera in person at the time of the exam 02/04/2022 11:50 AM and verified that the results were understood. Thank you for letting us participate in the care of this patient. ??If you are a health care provider and have any questi ons regarding this report, please contact the number below. ??For patients who have questions please contact the health ocular care technologist that requested your imaging first. ? Impressions 02/04/2022 12:05 PM EDT Proximal left MCA occlusion. No acute hemorrhage. Questionable early changes of infarct in the left posterior opercular region versus artifact. Discussed with Dr. Catina Márquez by Dr. Ileana Caldera in person at the time of the exam 02/04/2022 11:50 AM and verified that the results were understood. Thank you for letting us participate in the care of this patient. ??If you are a health care provider and have any questi ons regarding this report, please contact the number below. ??For patients who have questions please contact the health ocular care technologist that requested your imaging first. ? Narrative 02/04/2022 12:05 PM EDT EXAMINATION: CT HEAD WO & MULTIPHASE CTA HEAD/NECK (THROMBECTOMY PROTOCOL) CLINICAL HISTORY: R arm and leg weakness and garbled speech, rule out CVA TECHNIQUE: CT of head without intravenous contrast. Multiphase CTA of the carotids and [place] is performed after the administration of 65cc of Omnipaque 350 intravenous contrast. MIP reconstruction s were created. COMPARISON: None FINDINGS: Head: Bilateral frontal approach deep br ain stimulators are present, creating streak artifact. No acute hemorrhage, ma ss effect or extra-axial collection. Probable early loss of lam-white differ entiation in the posterior opercular region. Ventricles are mildly prominent, consistent with parenchymal atrophy. Paranasal sinuses and mastoid air cells are essentially clear. CTA: No stenosis of the great vessel jesus gins arising from the aortic arch. Common carotid arteries are normal in co urse and caliber. Mild calcified plaque at the carotid bifurcations without sign ificant stenosis of the proximal internal carotid arteries. Cervical ICAs are normal in course and caliber. Minimal plaque along the cavernous ICAs without stenosis. Abrupt cut off of the left MCA distal to the anterior temporal artery with poor opacification at the MCA bifurcation. Reconstitution of multi ple MCA branches in the sylvian fissure and distally. Normal right MCA, ACAs and posterior circulation. The left vertebral artery is dominant. Vertebral arteries are normal in course and caliber throughout. Probable small left and questionable tiny right posterior communicating artery. Procedure Note Ileana Caldera MD - 02/04/2022Form atting of this note might be different from the original. EXAMINATION: CT HEAD WO & MULTIPHASE CTA HEAD/NECK (THROMBECTOMY PROTOCOL) CLINICAL HISTORY: R arm and leg weakness and garbled speech, rule out CVA TECHNIQUE: CT of head without intravenous contrast. Multiphase CTA of the carotids and [place] is performed after the administration of 65cc of Omnipaque 350 intravenous contrast. MIP reconstruction s were created. COMPARISON: None FINDINGS: Head: Bilateral frontal approach deep br ain stimulators are present, creating streak artifact. No acute hemorrhage, ma ss effect or extra-axial collection. Probable early loss of lam-white differ entiation in the posterior opercular region. Ventricles are mildly prominent, consistent with parenchymal atrophy. Paranasal sinuses and mastoid air cells are essentially clear. CTA: No stenosis of the great vessel jesus gins arising from the aortic arch. Common carotid arteries are normal in co urse and caliber. Mild calcified plaque at the carotid bifurcations without sign ificant stenosis of the proximal internal carotid arteries. Cervical ICAs are normal in course and caliber. Minimal plaque along the cavernous ICAs without stenosis. Abrupt cut off of the left MCA distal to the anterior temporal artery with poor opacification at the MCA bifurcation. Reconstitution of multi ple MCA branches in the sylvian fissure and distally. Normal right MCA, ACAs and posterior circulation. The left vertebral artery is dominant. Vertebral arteries are normal in course and caliber throughout. Probable small left and questionable tiny right posterior communicating artery. IMPRESSION Proximal left MCA occlusion. No acute hemorrhage. Questionable early changes of infarct in the left posterior opercular region versus artifact. Discussed with Dr. Catina Márquez by Dr. Ileana Caldera in person at the time of the exam 02/04/2022 11:50 AM and verified that the results were understood. Thank you for letting us participate in the care of this patient. If you are a health care provider and have any questi ons regarding this report, please contact the number below. For patients w ho have questions please contact the health ocular care technologist that requested your imaging first. Dhruv Limon DO IMG CT ORDERABLES Gold Tube HOLD (02/04/2022 11:30 AM EDT) athologist Signature Gold Hold Sample in [facility]. [facility] Specimen Anatomical Collection Method Collection Time Receive d Time (Source) Location / / Volume Laterality Blood Venous Draw / 02/04/2022 11:30 02/04/2022 Unknown AM EDT 11:30 AM EDT Maida Chavez MD CHEMISTRY ORDERABLES Performing Organization Address City/State/[place] [address] Differential, Automated (02/04/2022 11:30 AM EDT) athologist Signature Neutrophils % 66.3 % [facility] Neutr Abs (ANC) 5.48 1.70 - [facility] 6.10 [facility] x10(3)/[facility] LABORATORY Lymphocytes % 25.0 % [facility] Lymphocytes Abs 2.1 0.9 - 3.2 [facility] x10(3)/[facility] LABORATORY Monocytes % 7.3 % [facility] Monocyte Abs 0.6 0.3 - 0.9 [facility] x10(3)/[facility] LABORATORY Eosinophils % 0.8 % [facility] Eosinophils Abs 0.1 0.0 - 0.4 [facility] x10(3)/[facility] LABORATORY Basophils % 0.4 % [facility] Basophils Abs 0.0 0.0 - 0.1 [facility] x10(3)/[facility] LABORATORY Immature Gran % 0.20 % [facility] Comment: Immature granulocytes(IG's)percentage an d absolute count will include metamyelocytes, myelocytes, and promyelo cytes. Blood smears from CBCs yielding IG's will be scanned manually for concor dance. If this scan disagrees with the automated IG or if promyelocytes are not ed, a manual differential will be performed. Anneliese Gran Abs 0.02 0.00 - 0.04 x10(3)/[facility] Y [facility] Specimen Anatomical Collection Method Collection Time Receive d Time (Source) Location / / Volume Laterality Blood 02/04/2022 11:30 02/04/2022 AM EDT 11:30 AM EDT Resulting Agency Comment Spec In Lab Maida Chavez MD HEMATOLOGY ORDERABLES Performing Organization Address City/State/ZIP Code Phon e Number [place] [id number] (ABNORMAL) Hemogram (02/04/2022 11:30 AM EDT) Analysis Performed At Patho logist Time Signature WBC 8.3 4.0 - 9.5 [facility] x10(3)/[facility] LABORATORY RBC 4.33 (L) 4.58 - [facility] 5.54 [facility] x10(6)/[facility] LABORATORY Hemoglobin 12.5 (L) 13.7 - [facility] 16.5 g/dL [facility] Hematocrit 37.2 (L) 40.5 - [facility] 48.5 % [facility] MCV 85.9 82.9 - [facility] 93.1 fL [facility] MCH 28.9 27.5 - [facility] pg [facility] MCHC 33.6 32.0 - [facility] 35.7 g/dL [facility] Platelets 144 (L) 145 - 357 [facility] x10(3)/[facility] LABORATORY RDWSD 43.9 36.0 - [facility] 45.0 [facility] LABORATORY RDWCV 14.0 (H) 11.4 - [facility] 13.8 % [facility] MPV 11.6 7.6 - 12.9 [facility] LABORATORY nRBC % Auto 0.0 % [facility] nRBC Abs Auto 0.000 0.000 - [facility] 0.000 [facility] x10(3)/[facility] LABORATORY Specimen Anatomical Collection Method Collection Time Receive d Time (Source) Location / / Volume Laterality Blood 02/04/2022 11:30 02/04/2022 AM EDT 11:30 AM EDT Resulting Agency Comment Spec In Lab Maida Chavez MD HEMATOLOGY ORDERABLES Performing Organization Address City/State/[place] [address] Basic Metabolic Panel (non-fasting) (02/04/2022 11:30 AM EDT) P athologist Signature Glucose Lvl 151 65 - 199 [facility] mg/dL [facility] Comment: Diabetes: >=200 mg/dL plus symp toms BUN 12 10 - 20 mg/dL [facility] Creatinine 0.86 0.80 - 1.50 mg/dL [facility] Sodium 142 135 - 145 mmol/L [facility] Potassium 4.3 3.5 - 5.0 mmol/L [facility] Comment: Please note: ??Patients with WBC >100,00 0 may have falsely elevated Potassium levels. ??For accurate Potassium quantif ication in these patients send serum separator tube (gold top) for subsequent determinations. ??Contact the Clinical Chemistry Laboratory if there are any qu estions. Chloride 106 98 - 107 mmol/L [facility] CO2 25 22 - 31 mmol/L [facility] Anion Gap 11 5 - 15 mmol/L [facility] Calcium 9.3 8.5 - 10.5 mg/dL [facility] Estimated GFR 95 >=60 mL/min/1.73 m?? [facility] Comment: This patient's estimated GFR was calcula josias using the 2020 CKD-EPI equation. The estimated GFR can vary from the renee ured GFR by up to 30% in the absence of rapidly changing kidney function. Assess ment of the estimated GFR is not appropriate when creatinine concentratio ns are rapidly changing. For clinical situations in which a more precise estim ate of GFR is necessary, consider alternative methods of GFR estimation wilson ch as a 24-hour urine creatinine clearance. Assignment of CKD stage 1-5 for patients with an eGFR near the transition point between stages may be based on clinical assessment of muscle mass and symptoms in addition to eGFR. Specimen Anatomical Collection Method Collection Time Receive d Time (Source) Location / / Volume Laterality Blood 02/04/2022 11:30 02/04/2022 AM EDT 11:30 AM EDT Resulting Agency Comment Spec In Lab Dhruv Limon DO CHEMISTRY ORDERABLES Performing Organization Address City/State/ZIP Code Phon e Number [address] APTT (02/04/2022 11:30 AM EDT) P athologist Signature PTT 27 25 - 37 sec [facility] Comment: The PTT is NOT appropriate for heparin m onitoring. Use the Anti-Xa level for heparin monitoring (HEP UFH) or LMWH mon itoring (HEP LMW). A PTT less than 37 seconds generally indicates adequate hem ostasis. Specimen Anatomical Collection Method Collection Time Receive d Time (Source) Location / / Volume Laterality Blood 02/04/2022 11:30 02/04/2022 AM EDT 11:30 AM EDT Resulting Agency Comment Spec In Lab Dhruv Limon DO HEMATOLOGY ORDERABLES Performing Organization Address City/State/[place] [address] Prothrombin Time (02/04/2022 11:30 AM EDT) P athologist Signature PT 12.2 9.4 - 12.5 [facility] LABORATORY INR 1.1 [facility] Comment: An INR <2.0 indicates adequate procoagul ant activity for hemostasis in most patients without underlying bleeding dis orders, though the INR may not adequately reflect hemostatic capacity i n patients with liver disease and synthetic impairment. The recommended ta rget INR range for therapeutic anticoagulation is 2.0 ? 3.0 for most applications, though lower and higher ranges may be appropriate depending on c linical circumstances. Specimen Anatomical Collection Method Collection Time Receive d Time (Source) Location / / Volume Laterality Blood 02/04/2022 11:30 02/04/2022 AM EDT 11:30 AM EDT Resulting Agency Comment Spec In Lab Dhruv Limon DO HEMATOLOGY ORDERABLES Performing Organization Address City/State/[place] [address] (ABNORMAL) BLOOD GAS 2 VENOUS (02/04/2022 11:28 AM EDT) Analysis Performed At Patho logist Time Signature pH Manny 7.37 7.32 - [facility] 7.42 [facility] pCO2 Manny 44 41 - 51 [facility] LABORATORY pO2 Manny 20 (L) 25 - 40 [facility] LABORATORY HCO3 Manny 24.7 mmol/L [facility] BE Manny -0.6 mmol/L [facility] Hgb Blood Gas 12.7 (L) 13.7 - [facility] 16.5 g/dL [facility] O2HB Manny 30.1 % [facility] COHB Manny 1.8 % [facility] Comment: Nonsmokers: 0.5-1.5% COHB Smokers: Variable, but usually less than 10% Toxic: 20-30% COHB Lethal: Greater than 60% COHB METHB Manny 1.1 <=1.5 % [facility] Na Whole Blood 142 135 - 145 mmol/L [facility] K Whole Blood 4.3 3.5 - 5.0 mmol/L [facility] Comment: Please note: Patients with WBC >100,000 may have falsely elevated Potassium levels. Contact the Clinical Chemistry L aboratory if there are any questions. ICa Whole Blood 1.16 1.15 - 1.33 mmol/L [facility] Comment: Note: ??Total bilirubin higher than 20 m g/dL may lead to falsely low ionized calcium. CL Whole Blood 105 98 - 107 mmol/L [facility] Gluc Whole Bld 140 65 - 199 mg/dL [facility] Comment: Diabetes: >=200 mg/dL plus symp toms Lactate WB 2.0 0.5 - 2.2 mmol/L [facility] BGas Source Venous [facility] Specimen Anatomical Collection Method Collection Time Receive d Time (Source) Location / / Volume Laterality Blood 02/04/2022 11:28 02/04/2022 AM EDT 11:28 AM EDT Dhruv Limon DO CHEMISTRY ORDERABLES Performing Organization Address City/[facility]/[place] [address] EKG 12 Lead (02/04/2022 11:16 AM EDT) [facility] gist Method Time Signature Ventricular rate 65 BPM MUSE SYSTEM Atrial Rate 65 BPM MUSE SYSTEM P-R Interval 238 ms MUSE SYSTEM QRS Duration 84 ms MUSE SYSTEM Q-T Interval 408 ms MUSE SYSTEM QTC Calculated 424 ms MUSE SYSTEM (Bezet) Calculated P [place] 87 degrees MUSE SYSTEM Calculated R [place] 42 degrees MUSE SYSTEM Calculated T [place] 46 degrees MUSE SYSTEM INTERPRETATION Sinus rhythm with 1st degree A-V block MUSE SYSTEM Otherwise normal ECG No previous ECGs available Confirmed by Delia Pierce MD ([id number]) on 02/14/2022 12:58:37 PM Specimen Anatomical Collection Method Collection Time Receive d Time (Source) Location / / Volume Laterality 02/04/2022 11:16 02/14/2022 AM EDT 12:58 PM EDT Dhruv Limon DO ECG ORDERABLES Performing Organization Address City/[facility]/ZIP Code Phon e Number MUSE SYSTEM POCT Glucose (02/04/2022 11:16 AM EDT) P athologist Signature POC Glucose 148 65 - 199 [facility] mg/dL [facility] Comment: Supplemental ranges: <140 mg/dL before meals <180 mg/dL all other times of the day Specimen Anatomical Collection Method Collection Time Receive d Time (Source) Location / / Volume Laterality Blood 02/04/2022 11:16 02/04/2022 AM EDT 11:16 AM EDT Md Emergency Dept MD POINT OF CARE TEST ORDERABLE S Performing Organization Address City/State/ZIP Code Phon e Number [facility] [place] [address] documented in this encounter Visit Diagnoses Diagnosis Cerebrovascular accident (CVA), unspecif ied mechanism documented in this encounter Administered Medications Inactive Administered Medications - up to 3 most recent administrations Medication Order MAR Action Action Date Dose Rate Site aspirin suppository 300 mg Given 02/04/2022 12:01 PM EDT 300 mg 300 mg, Rectal, ONCE, 1 dose, On 02/04/22 at 1156, STAT iohexoL (Omnipaque) (350 mg/mL) solution Given 02/04/2022 11:52 AM EDT 65 mLs 0-200 mL 0-200 mL, Intravenous, ONCE PRN, 1 dose, Starting on 02/04/22 at 1152, Until 02/04/22 at 1152, Per Protocol, Warning Vesicant/Irritant Medication , Radiology Contrast, Routine labetaloL (Normodyne) (5 mg/mL) injectio n solution 20 mg 20 mg, Intravenous, ONCE PRN, 1 dose, St arting on 02/04/22 at 1214, Until 02/04/22 at 1544, High Blood Pressure, SBP greater than 185 and DBP greater than 110, If systolic BP greater than or equa l to 185 mmHg and/or diastolic BP greater than or equal to 110 mmHg on two reading s 5-10 minutes apart: Administer 20 mg of labetalol over 2 minutes. Recheck BP in 15 minutes. If Labetalol does not satisfactorily control BP within 30 minutes of first d ose, notify physician and start niCARdipine STAT. HOLD if heart ra te is less than 50. Notify physician and start niCARdipine. Do not exceed 300 mg total dose of Labetalol., STAT niCARdipine (Cardene) (0.2 mg/mL) in sod ium chloride 200 mL infusion 0-15 mg/hr (0-75 mL/hr), Intravenous, CO NTINUOUS PRN, Starting on 02/04/22 at 1114, Until 02/04/22 at 1544, control blood pressure, Administer if inadequate blood pressure control in 30 minutes nakia pite labetalol or if labetalol not ordered. Start niCARdipine at 5mg/hr; Titrate to maintain SBP less than 185 mmHg or DBP less than 110 mmHg by increasing infusion rat e by 2.5 mg/hr every 5 minutes to a maximum of 15mg/hr. Monitor vital signs every 15 minutes for 1 hour after initiation of the niCARdipine infusion and after a dose changes, then ev constantin 30 minutes., STAT sodium chloride 0.9 % (flush) (BD PosiFlush Given 02/04/2022 11:26 AM EDT 5 mLs Normal Saline 0.9) flush 5-20 mL 5-20 mL, Intravenous, ONCE, 1 dose, On 02/04/22 at 1116, STAT sodium chloride 0.9% infusion New Bag 02/04/2022 11:26 AM EDT 100 mL/hr 100 mL/hr 100 mL/hr, Intravenous, CONTINUOUS, Starting on 02/04/22 at 1116, Until 02/04/22 at 1544 documented in this encounter Active and Recently Administered Medications Times are shown in EDT. Scheduled Medication Order 02/02/2022 02/03/2022 02/04/2022 aspirin suppository 300 mg (COMPLETED) 1201 (Given - Provider: Gerardo Forbes, AIDEN) 300 mg, Rectal, ONCE, 1 dose, On 02/04/22 at 1156, STAT sodium chloride 0.9 % (flush) (BD PosiFl [facility] Normal Saline 0.9) flush 5-20 mL (COMPLETED) 1126 (Given - Provid er: Jenny Stephen RN) 5-20 mL, Intravenous, ONCE, 1 dose, On 02/04/22 at 1116, STAT Continuous Medication Order 02/02/2022 02/03/2022 02/04/2022 sodium chloride 0.9% infusion 11 (New Bag - Provider: Jenny Stephen RN)1544 (Due: Stopped) 100 mL/hr, Intravenous, CONTINUOUS, Star ting on 02/04/22 at 1116, Until 02/04/22 at 1544 PRN Medication Order 02/02/2022 02/03/2022 02/04/2022 iohexoL (Omnipaque) (350 mg/mL) solution 0-200 mL (COMPLETED) 1152 (Given - Provider: Joe Moreno) 0-200 mL, Intravenous, ONCE PRN, 1 dose, Starting on 02/04/22 at 1152, Until 02/04/22 at 1152, Per Protocol, Warning Vesicant/Irritant Medication , Radiology Contrast, Routine labetaloL (Normodyne) (5 mg/mL) injection solution 10 mg 10 mg, Intravenous, ONCE PRN, Starting o n 02/04/22 at 1114, Until 02/04/22 at 1213, High Blood Pressure, SBP greater than 185 and DBP greater than 110, If systolic BP greater than or equal to 185 mmHg and/or diastolic BP greater than or equal to 110 mmHg on two readings 5-10 minutes apart: Administer 10 mg over 2 minutes. If inadequate effect in 15 minutes, increase to 20 mg for subsequent dose and recheck BP in 15 minutes. If Labetal ol does not satisfactorily control BP within 15 minutes of first dose, administer the second dose of 20 mg labetalol. HOLD if heart rate is less than 50. Notify p hysician and start niCARdipine. Do not e xceed 300 mg total dose of Labetalol., STAT labetaloL (Normodyne) (5 mg/mL) injection solution 20 mg 20 mg, Intravenous, ONCE PRN, 1 dose, St arting on 02/04/22 at 1214, Until 02/04/22 at 1544, High Blood Pressure, SBP greater than 185 and DBP greater than 110, If systolic BP greater than or equal to 185 mmHg and/or diastolic BP greater than or equal to 110 mmHg on two readings 5-10 minutes apart: Administer 20 mg of labetalol over 2 minutes. Recheck BP in 15 minutes. If Labetalol does not satis factorily control BP within 30 minutes o f first dose, notify physician and start niCARdipine STAT. HOLD if heart rate is less than 50. Notify physician and start niCARdipine. Do not exceed 300 mg total dose of Labetalol., STAT niCARdipine (Cardene) (0.2 mg/mL) in sodium chloride 200 mL infu jose 0-15 mg/hr (0-75 mL/hr), Intravenous, CO NTINUOUS PRN, Starting on 02/04/22 at 1114, Until 02/04/22 at 1544, control blood pressure, Administer if inadequate blood pressure control in 30 minutes de spite labetalol or if labetalol not orde red. Start niCARdipine at 5mg/hr; Titrate to maintain SBP less than 185 mmHg or DBP less than 110 mmHg by increasing infusion rate by 2.5 mg/hr every 5 minutes to a maximum of 15mg/hr. Monitor vital sig ns every 15 minutes for 1 hour after initiation of the niCARdipine infusion and after a dose changes, then every 30 minutes., STAT documented in this encounter Care Teams Microfilm Equipment Inspector Relationship Specialty Start Date End Date None PCP - General 02/04/22 None documented as of this encounter
--- OUTSIDE RECORDS SUMMARY | 2022-02-26 03:58 | XMS_ITS | Encounter Summary ---
:1955 Author Organization [place] [address] Care Team Providers Name Role Phone Griselda Stanley MD Primary Care Provider Encounter Details Date Type Department Care Team Description 07/05/2021 External Results [place]rology [place] [facility] [place] Daniel Hanson MD [facility] [place] [id number] NEUROLOGY DEPT. [phone] [place], [place] [address] (Wo rk) Social History Tobacco [...] 03/20/2022 Office Visit Neurology Vishnu Hooper MD [facility] NEUROLOGY DEPT. [place], [place] [address] (Wo rk) documented as of this encounter Procedures Procedure Name Priority Date/Time Associated Diagnosis Comme nts EMG SCAN Routine 07/05/2021 documented in this encounter Results Scan Doc: EMG (07/05/2021) Narrative This result has an attachment that is no t available. Luis Daniel Hanson MD MEDIA MGR SCAN EXT ORDR/RSLT documented in this encounter Visit Diagnoses Not on filedocumented in this encounter Care Teams Heel Cutter Relationship Specialty Start Date End Date Griselda Stanley MD PCP - General 07/04/10 02/03/22 documented as of this encounter
--- OUTSIDE RECORDS SUMMARY | 2022-02-26 03:58 | XMS_ITS | Encounter Summary ---
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 [facility] [place] [address] [place] [address] Referral ID Status Reason Start Date Expiration Date Visits V isits Requested Authorized [id number] Closed Evaluate and 09/04/2021 09/04/2022 12 12 Treat Encounter Details Date Type Department Care Team Description 09/04/2021 Orders Only Neurology at [facility] Winnie Stevenson At risk for falls [facility] [place] [address] [facility] [phone] NEUROLOGY [place], [place] [address] (Wo rk) Social History Tobacco [...] place to sleep or slept in a fpc (including now)? Sex Assigned at Date Recorded Not on file documented as of this encounter Plan of Treatment Upcoming Encounters Date Type Specialty Care Team Description 03/20/2022 Office Visit Neurology Vishnu Hooper MD [facility] NEUROLOGY DEPT. [place], [place] [address] (Wo rk) Scheduled Referrals Name Type Priority Associated Diagnoses Order S chedule Referral to Outpatient Referral Routine At risk for falls Ord ered: Physical Therapy 09/04/2021 documented as of this encounter Visit Diagnoses Diagnosis At risk for falls Personal history of fall documented in this encounter Care Teams Tool Engine Lathe Set Up Operator Relationship Specialty Start Date End Date Griselda Stanley MD PCP - General 07/04/10 02/03/22 documented as of this encounter
--- OUTSIDE RECORDS SUMMARY | 2022-02-26 03:58 | XMS_ITS | Encounter Summary ---
:1955 Author Organization [facility] [place] [address] Care Team Providers Name Role Phone Griselda Stanley MD Primary Care Provider Reason for Visit Reason Onset Date Comments Medical Care Coordination 08/01/2021 Encounter Details Date Type Department Care Team Description 08/01/2021 Notes Only Neurology at [facility] Margareth Rose, [place] [address] Social History Tobacco Use Types Packs/Day [...] place to sleep or slept in a mcc (including now)? Sex Assigned at Date Recorded Not on file documented as of this encounter Progress Notes Margareth Rose MSW - 08/01/2021 12:34 PM EST Contacted Arlyn, Marcell's , to follow up on his hallucinations and falls. Arlyn reports that the hallucinations have resolved and Marcell has had less falls in the past few weeks. Arlyn states that Marcell is walking less in the home and Arlyn is with him whenever he does, so thisis likely what has reduced the falls. She reports his ankle still gives out on him unexpectedly which leads to loss of balance. Arlyn had some questions about Marcell's care that SQL SERVER CONSULTANT agreed to forward to care team (whether he needed a sooner appointment and whether or not DBS needed to be adjusted) Arlyn reports she was able to purchase a wheelchair at [facility] and this allowed her to take Marcell [employer] shopping which they enjoyed. Arlyn states her son and his family will be coming to their house for the holiday and they are looking forward to spending time with their grandchildren. Encouraged continued self-care and for Arlyn to reach out as additional needs arise. ROSCOE Nick Continuing Ophthalmic Surgical Assistant Outpatient Neurology Clinic Pager [phone] documented in this encounter Plan of Treatment Upcoming Encounters Date Type Specialty Care Team Description 03/20/2022 Office Visit Neurology Vishnu Hooper MD [facility] NEUROLOGY DEPT. [place], [place] [address] (Wo rk) documented as of this encounter Visit Diagnoses Not on filedocumented in this encounter Care Teams Sports Reporter Relationship Specialty Start Date End Date Griselda Stanley MD PCP - General 07/04/10 02/03/22 documented as of this encounter
--- OUTSIDE RECORDS SUMMARY | 2022-02-26 03:58 | XMS_ITS | Encounter Summary ---
:1955 Author Organization [facility] [place] [address] Care Team Providers Name Role Phone Griselda Stanley MD Primary Care Provider Reason for Visit Reason Onset Date Comments Medical Care Coordination 04/19/2021 Encounter Details Date Type Department Care Team Description 04/19/2021 Notes Only Neurology at [facility] Margareth Rose, Medical Care [facility] [place] [address] Social History Tobacco Use Types Packs/Day [...] encounter Progress Notes Margareth Rose MSW - 04/19/2021 8:55 AM EDT Received voicemail from Óscar Hodgson, PT at [facility] who has been working with Marcell. Óscar is recommending a [employer] Vantage Platform walker for Marcell as it is designed for patients with Parkinson's and is covered by Medicare Contacted Marcell's , Ana Lilia and relayed the above. Informed her I would work with the providers to obtain the necessary supporting documentation and Rx to send to [employer]. Ana Lilia voiced appreciation anddenied other concerns/questions at this time. Let her know she could call at any time as needs arise and that I would check back in with her in a few weeks. ROSCOE Nick Continuing Taximeter Repairer Outpatient Neurology Clinic Pager [phone] documented in this encounter Plan of Treatment Upcoming Encounters Date Type Specialty Care Team Description 03/20/2022 Office Visit Neurology Vishnu Hooper MD [facility] NEUROLOGY DEPT. [place], [place] [address] (Wo rk) documented as of this encounter Visit Diagnoses Not on filedocumented in this encounter Care Teams Paint Crew Supervisor Relationship Specialty Start Date End Date Stanley, Griselda M, MD PCP - General 07/04/10 02/03/22 documented as of this encounter
--- OUTSIDE RECORDS SUMMARY | 2022-02-26 03:58 | XMS_ITS | Encounter Summary ---
:1955 Author Organization [facility] [place] [address] Care Team Providers Name Role Phone Griselda Stanley MD Primary Care Provider Reason for Visit Reason Onset Date Comments Medical Care Coordination 07/13/2021 hallucinations & need for caregiver support Encounter Details Date Type Department Care Team Description 07/13/2021 Notes Only Neurology at [facility] Margareth Rose, Medical Care [facility] (hallucinations & [place] [address] for caregiver support) [phone] Social History Tobacco Use Types Packs/Day Years [...] encounter Progress Notes Margareth Rose MSW - 07/13/2021 11:36 AM EST Received voicemail yesterday from Arlyn, Marcell's , stating that he continues to have hallucinations and she is unsure who to reach out to. Forwarded message to clinic RN and MD Left for Arlyn yesterday afternoon Contacted Arlyn this morning. She confirms that URIAH Zhou, called her and recommended that the new medication be stopped as it was likely causing the hallucinations. Arlyn reports that it has now been a full 24 hours since his last dose of the medication and the hallucinations to be improving. Provided supportive rehab/pre vocational counselor and reassurance to Virgie as she discussed Marcell's hallucinations. Arlyn reports Winnie ordered a new medication (Seroquel) which is ready at the pharmacy, but Arlyn is reluctant to give him any new medications since the last one caused an adverse side effect. Informed Arlyn that I had located another support group for PD Caregivers that is in [facility]. Agreed to send her the info via Marcell's patient portal. Encouraged Arlyn to reach back out if Marcell's symptoms do not resolve or if she needs any additional support ROSCOE Nick Continuing Coding Clerk Outpatient Neurology Clinic Pager [phone] documented in this encounter Plan of Treatment Upcoming Encounters Date Type Specialty Care Team Description 03/20/2022 Office Visit Neurology Vishnu Hooper MD [facility] NEUROLOGY DEPT. [place], [place] [address] (Wo rk) documented as of this encounter Visit Diagnoses Not on filedocumented in this encounter Care Teams Grain Mill Worker Relationship Specialty Start Date End Date Griselda Stanley MD PCP - General 07/04/10 02/03/22 documented as of this encounter
--- OUTSIDE RECORDS SUMMARY | 2022-02-26 03:58 | XMS_ITS | Encounter Summary ---
:1955 Author Organization [facility] Address [address] [place] [address] Care Team Providers Name Role Phone Griselda Stanley MD Primary Care Provider Reason for Visit Reason Onset Date Comments Medical Care Coordination 07/05/2021 Office Visit w / Dr Hooper Encounter Details Date Type Department Care Team Description 07/05/2021 Notes Only Neurology at [facility] Margareth Rose, Medical Care [facility] INTERMEDIATE MANAGER Coordinat ion (Office Drive Visit w/ Dr Hooper) [place] [address] Social History Tobacco Use Types Packs/Day [...] place to sleep or slept in a longterm (including now)? Sex Assigned at Date Recorded Not on file documented as of this encounter Progress Notes Margareth Rose MSW - 07/05/2021 7:37 AM EST Met with Nati in 3C during Marcell's follow up with Dr Hooper yesterday (07/04/21) Arlyn and Marcell report that Marcell has been having difficulty with one of his legs/feet and is scheduled for an EMG study tomorrow here at . They share that this difficulty has led to frequent falls recently. They did obtain the specialized walker which they find helpful. Marcell notes that his declining his mobility is impacting his mood. His PT through home health recently maxed out under Medicare and was ended. Arlyn is trying to do the exercises with him, but she is still balancing work as well. Arlyn notes that at times, she feels impatient with Marcell's needs and she would benefit from a caregiver support group. Discussed caregiver support groups available through [facility], and offerings through [facility]. Reminded Marcell and Arlyn that they are able to reach out to me directly as needed for support, resources and assistance Plan: ?? Mail support group listings to Arlyn ?? Add Nati to the mailing list at [facility] ?? Arlyn and Marcell to reach out as needed ?? Reassess needs on ongoing basis ROSCOE Nick Continuing Biological Technical Officer Outpatient Neurology Clinic Pager [phone] documented in this encounter Plan of Treatment Upcoming Encounters Date Type Specialty Care Team Description 03/20/2022 Office Visit Neurology Vishnu Hooper MD [facility] NEUROLOGY DEPT. [place], [place] [address] (Wo rk) documented as of this encounter Visit Diagnoses Not on filedocumented in this encounter Care Teams Head Of Advertising Relationship Specialty Start Date End Date Griselda Stanley MD PCP - General 07/04/10 02/03/22 documented as of this encounter
--- OUTSIDE RECORDS SUMMARY | 2022-02-26 03:58 | XMS_ITS | Encounter Summary ---
:1955 Author Organization [facility] [place] [address] Care Team Providers Name Role Phone Griselda Stanley MD Primary Care Provider Encounter Details Date Type Department Care Team Description 06/06/2021 Notes Only Neurology at [facility] Margareth Rose, [place] [address] Social History Tobacco Use Types Packs/Day [...] place to sleep or slept in a fdc (including now)? Sex Assigned at Date Recorded Not on file documented as of this encounter Progress Notes Margareth Rose MSW - 06/06/2021 12:32 PM EDT Left message for Ana Lilia and Marcell to follow up and offer ongoing support. Encouraged them to reach outif I could be of support or assistance ROSCOE Nick Continuing Coagulating Bath Operator Outpatient Neurology Clinic Pager [phone] documented in this encounter Plan of Treatment Upcoming Encounters Date Type Specialty Care Team Description 03/20/2022 Office Visit Neurology Vishnu Hooper MD [facility] NEUROLOGY DEPT. [place], [place] [address] (Wo rk) documented as of this encounter Visit Diagnoses Not on filedocumented in this encounter Care Teams Orthopedic Physical Therapist Relationship Specialty Start Date End Date Griselda Stanley MD PCP - General 07/04/10 02/03/22 documented as of this encounter
--- OUTSIDE RECORDS SUMMARY | 2022-02-26 03:58 | XMS_ITS | Encounter Summary ---
:1955 [place] [address] Care Team Providers Name Role Phone Griselda Stanley MD Primary Care Provider Encounter Details Date Type Department Care Team Description 07/10/2021 Telephone Neurology at [facility] Kenneth Trejo [facility] Kali [facility] [address] NEUROLOGY DEPT [phone] [place], [place] [address] (Wo rk) Social History Tobacco [...] place to sleep or slept in a group home (including now)? Sex Assigned at Date Recorded Not on file documented as of this encounter Miscellaneous Notes Telephone Encounter - Kenneth Trejo DO - 07/10/2021 7:29 PM EST wondered what would happen if she abruptly stopped amantadine. She would prefer not giving amantadine if possible. She had been advised to do a taper instead earlier. Advised that abrupt discontinuation of amantadine can similarly result in altered mental status including hallucination and delirium as patient is currently experiencing. The taper might be more preferred if it's at all possible. will continue the taper as instructed and have patient sleep in recliner tonight while she sleep on couch to prevent him from falling/wandering. Kenneth Trejo DO 07/10/2021 documented in this encounter Plan of Treatment Upcoming Encounters Date Type Specialty Care Team Description 03/20/2022 Office Visit Neurology Vishnu Hooper MD [facility] NEUROLOGY DEPT. [place], [place] [address] (Wo rk) documented as of this encounter Visit Diagnoses Not on filedocumented in this encounter Care Teams Pharmacy Coordinator Relationship Specialty Start Date End Date Griselda Stanley MD PCP - General 07/04/10 02/03/22 documented as of this encounter
--- OUTSIDE RECORDS SUMMARY | 2022-02-26 03:58 | XMS_ITS | Encounter Summary ---
:1955 Author Organization [place] [address] Care Team Providers Name Role Phone Griselda Stanley MD Primary Care Provider Encounter Details Date Type Department Care Team Description 05/29/2021 Interpretation Only [facility] Eddie Pierson PA [address] [id number] [phone] Social History Tobacco Use Types Packs/Day Years [...] Visit Neurology Vishnu Hooper MD [facility] NEUROLOGY DEPT. [place], [place] [address] (Wo rk) documented as of this encounter Procedures Procedure Name Priority Date/Time Associated Diagnosis Comme nts XR ANKLE MIN 3 Routine 05/29/2021 3:23 PM Results for this VIEWS BILAT EDT procedure are i n the results section. documented in this encounter Results XR Ankle Min 3 views Bilat (Generic) (05/29/2021 3:23 PM EDT) P athologist Signature PT CLASS O RAD ADMITDTTM RAD PT RAD INFO [id number]^J RAD [place]ON^EDDIE EXAM DESC [id number]^XR RAD RIGHT ANKLE COMPLETE^RIS Anatomical Region Laterality Modality Ankle Bilateral Radiographic Imaging Specimen (Source) Anatomical Location Collection Method / Collectio n Time Received Time / Laterality Volume Impressions 05/29/2021 3:30 PM EDT No fractures identified. Thank you for letting us participate in the care of this patient. ??If you are a health care provider and have any questi ons regarding this report, please contact the number below. ??For patients who have questions please contact the health assurance services manager health care that requested your imaging first. ? Electronically signed by: Gonzalez garcía MD, [facility] ([phone]), at 05/29/2021 3:30 PM Narrative 05/29/2021 3:30 PM EDT EXAMINATION: XR RIGHT ANKLE COMPLETE CLINICAL HISTORY: Pain in right ankle an d joints of right foot; multiple twisting injuries secondary to peroneal neuropathy. Assess for fx TECHNIQUE: 3 views of the right ankle COMPARISON: None. FINDINGS: Limited due to suboptimal projections. N o fractures seen. Minimal degenerative changes noted at the tip of the medial m alleolus. Superior calcaneal spurring is seen. Procedure Note Gonzalez Mar MD - 05/29/2021For matting of this note might be different from the original. EXAMINATION: XR RIGHT ANKLE COMPLETE CLINICAL HISTORY: Pain in right ankle an d joints of right foot; multiple twisting injuries secondary to peroneal neuropathy. Assess for fx TECHNIQUE: 3 views of the right ankle COMPARISON: None. FINDINGS: Limited due to suboptimal projections. N o fractures seen. Minimal degenerative changes noted at the tip of the medial m alleolus. Superior calcaneal spurring is seen. IMPRESSION No fractures identified. Thank you for letting us participate in the care of this patient. If you are a health care provider and have any questi ons regarding this report, please contact the number below. For patients w ho have questions please contact the health assurance services manager health care that requested your imaging first. Electronically signed by: Gonzalez garcía MD, [facility] ([phone]), at 05/29/2021 3:30 PM Eddie GARCIA IMG DX ORDERABLES documented in this encounter Visit Diagnoses Not on filedocumented in this encounter Care Teams Fluid Dynamicist Relationship Specialty Start Date End Date Griselda Stanley MD PCP - General 07/04/10 02/03/22 documented as of this encounter
--- OUTSIDE RECORDS SUMMARY | 2022-02-26 03:58 | XMS_ITS | Encounter Summary ---
:1955 Author Organization [facility] [place] [address] Care Team Providers Name Role Phone Griselda Stanley MD Primary Care Provider Encounter Details Date Type Department Care Team Description 07/04/2021 Office Visit Neurology at [facility] Vishnu Hooper MD Parkinson's disease [facility] [place] [address] NEUROLOGY DEPT. [phone] [place], [place] [address] (Wo rk) Social History Tobacco [...] place to sleep or slept in a alf (including now)? Sex Assigned at Date Recorded Not on file documented as of this encounter Last Filed Vital Signs Vital Sign Reading Time Taken Comments Blood Pressure 152/77 07/04/2021 2:04 PM EST Pulse 67 07/04/2021 2:04 PM EST Temperature - - Respiratory Rate - - Oxygen Saturation - - Inhaled Oxygen Concentration - - Weight - - Height - - Body Mass Index - - documented in this encounter Patient Instructions Patient InstructionsVishnu Hooper MD - 07/04/2021 2:00 PM EST You were seen in follow up for freeziing of gait. We tried various combination with no significant changes to your stffness of your legs. To help with freezing, we can try amantadine 100 mg 2xdaily Mayincrease if found to be helpful. I have created a new group C with hope broad field will provide some benefit. Other medications to consider would be ritalin or donepezil. documented in this encounter Progress Notes Vishnu Hooper MD - 07/04/2021 2:00 PM EST Images from the original note were not included. [facility] Follow-up Note Patient ID: Timbo Su is a 65 y.o. year old male who presents in follow-up. Subjective Patient Active Problem List Diagnosis ??? Encephalopathy, toxic ??? Urinary tract infection ??? UTI (urinary tract infection) ??? Frailty ??? Parkinson's disease Added automatically from request for surgery [id number] ??? Dysphagia ??? Atrial fibrillation ??? Viral meningitis ??? S/P deep brain stimulator placement ??? Mixed anxiety and depressive disorder ??? Sensory ataxia ??? Diabetic polyneuropathy ??? Orthostatic hypotension ??? Hypertension ??? Hyperlipidemia ??? Diabetes mellitus With mild sensory polyneuropathy ??? Carpal tunnel syndrome, bilateral ??? Sciatica of left side ??? Abnormal LFTs (liver function tests) ??? Cholelithiasis ??? REM behavioral disorder ??? Ankle fracture, left ??? Fatigue Interval history: New problem with the right leg turning in leading to falls. He was seen by [facility] in March and he was supposed to have had EMG conduction studies with Dr. Linton, with the plan to add on lower extremity studies as well. He is scheduled for the studies with Dr. Hanson tomorrow. With regards to his Parkinson symptoms, he continues to have freezing of gait. This is despite the deep brain stimulator adjustments that were made earlier. Review of Systems: [ ] Review of Systems otherwise negative. Adverse reactions/allergies: No Known Allergies Medications at start of encounter: Outpatient Medications Prior to Visit Medication Sig Dispense Refill ??? gabapentin (Neurontin) 100 mg Capsule 100 mg 2 times daily. ??? metoprolol tartrate (Lopressor) 100 mg Tablet Take 50 mg by mouth 2 times daily. ??? DULoxetine DR (Cymbalta) 60 mg Capsule, Delayed Release(E.C.) Take 60 mg by mouth 2 times daily. ??? metFORMIN (GLUCOPHAGE) 1,000 mg Tablet Take 1,000 mg by mouth 2 times daily. ??? blood sugar diagnostic strips Strip by Other route. Use as instructed ??? carbidopa-levodopa (Sinemet) 25-250 mg Tablet Take 1 tablet by mouth 5 times daily. Take at 9am,12noon, 3pm, 6pm and 9 pm (Patient taking differently: Take 1 tablet by mouth 4 times daily. Take at8am, 12noon, 4pm, and 9 pm) 150 tablet 3 ??? polyethylene glycol (Miralax) 17 gram Powder in Packet Take 17 g by mouth daily as needed. 14 each 0 ??? atorvastatin (Lipitor) 10 mg Tablet Take 1 tablet by mouth every evening. 90 tablet 3 ??? glipiZIDE (Glucotrol) 5 mg Tablet Take 5 mg by mouth 2 times daily (before meals). ??? entacapone (Comtan) 200 mg Tablet Take 1 tablet by mouth 3 times daily. Take with each dose of carbidopa-levodopa. Aware of previous intolerance because nausea 90 tablet 5 ??? acetaminophen (TYLENOL) 500 mg Tablet Take 1,000 mg by mouth every 6 hours as needed for Pain. ??? cholecalciferol, Vitamin D3, 1,000 unit Tablet Take 1,000 Units by mouth daily. ??? omeprazole (PRILOSEC) 40 mg Capsule, Delayed Release(E.C.) Take 40 mg by mouth daily as needed. ??? metoprolol succinate XL (Toprol-XL) 50 mg Tablet Sustained Release 24 hr Take 1 tablet by mouth daily. (Patient not taking: Reported on 07/04/2021) 30 tablet 12 No facility-administered medications prior to visit. Family and Social History: Interval changes: No family history on file. No family status information on file. Social History Socioeconomic History ??? Marital status: Spouse name: Not on file ??? Number of children: Not on file ??? Years of education: Not on file ??? Highest education level: Not on file Occupational History ??? Not on file Tobacco Use ??? Smoking status: Former Smoker Types: Cigarettes Quit date: 12/10/1977 Years since quittin.6 ??? Smokeless tobacco: Never Used Vaping Use ??? Vaping Use: Never used Substance and Sexual Activity ??? Alcohol use: No ??? Drug use: No ??? Sexual activity: Not on file Comment: Deferred Other Topics Concern ??? Not on file Social History Narrative Lived in [place], moved to [place] 1980. Social Determinants of Health Financial Resource Strain: Not on file Food Insecurity: Not on file Transportation Needs: Not on file Physical Activity: Not on file Housing Stability: Not on file Objective: Vitals: 07/04/21 1404 BP: 152/77 Pulse: 67 In addition to parkinsonism, he has a right foot drop. This makes him very unsteady with transfers. Deep brain stimulator settings were interrogated to make sure that they were not secondary to interference along the parietal tract. Turning of the stimulators did not appear to improve his right foot drop. Assessment and Plan: Parkinson's disease Timbo Su (Marcell) is a 65-year-old with Parkinson's disease, status post GPI DBS, with freezing ofgait, and complicated by a new right foot drop likely from some polyneuropathy. He has an assessmentby EMG tomorrow. In the meantime, from a Parkinson's standpoint, will try amantadine 100 mg twice daily. I will see him in follow-up in 3 months or sooner if the need arises. This was a DBS programmingsession. Patient instructions Patient Instructions You were seen in follow up for freeziing of gait. We tried various combination with no significant changes to your stffness of your legs. To help with freezing, we can try amantadine 100 mg 2xdaily Mayincrease if found to be helpful. I have created a new group C with hope broad field will provide some benefit. Other medications to consider would be ritalin or donepezil. Orders No orders of the defined types were placed in this encounter. Medication changes: Medication ordered or changed during this encounter, will not show discontinued medications Medications ??? Amantadine 100 mg Tablet Sig: Take 1 tablet by mouth 2 times daily. For freezing of gait, If slight improvement, may increase to 3 times per day. Dispense: 60 tablet Refill: 3 I am having Timbo Faith start on Amantadine. I am also having him maintain his omeprazole, cholecalciferol (Vitamin D3), acetaminophen, entacapone, glipiZIDE, polyethylene glycoL, atorvastatin, blood sugar diagnostic strips, carbidopa-levodopa, metoprolol succinate XL, metoprolol tartrate, D ULoxetine DR, metFORMIN, and gabapentin. Vishnu Hooper MD PhD [facility] documented in this encounter Miscellaneous Notes Assessment & Plan Note - Vishnu Hooper MD - 07/18/2021 7:35 AM ESTAssociated Problem(s): Parkinson's disease Timbo Su (Marcell) is a 65-year-old with Parkinson's disease, status post GPI DBS, with freezing ofgait, and complicated by a new right foot drop likely from some polyneuropathy. He has an assessmentby EMG tomorrow. In the meantime, from a Parkinson's standpoint, will try amantadine 100 mg twice daily. I will see him in follow-up in 3 months or sooner if the need arises. This was a DBS programmingsession. documented in this encounter Plan of Treatment Upcoming Encounters Date Type Specialty Care Team Description 03/20/2022 Office Visit Neurology Vishnu Hooper MD [facility] NEUROLOGY DEPT. [place], [place] [address] (Wo rk) documented as of this encounter Visit Diagnoses Diagnosis Parkinson's disease Paralysis agitans documented in this encounter Care Teams Melting Operator Relationship Specialty Start Date End Date Griselda Stanley MD PCP - General 07/04/10 02/03/22 documented as of this encounter
--- OUTSIDE RECORDS SUMMARY | 2022-02-26 03:58 | XMS_ITS | Encounter Summary ---
:1955 Author Organization [facility] [place] [address] Care Team Providers Name Role Phone Griselda Stanley MD Primary Care Provider Encounter Details Date Type Department Care Team Description 08/24/2021 Telephone Neurology at [facility] Margareth Rose, [employer] [place] [address] Social History Tobacco Use Types Packs/Day [...] Telephone Encounter - Margareth Rose MSW - 08/25/2021 6:40 AM EST Left message for Arlyn and Marcell to check in and see how Marcell has been doing. Encouraged Arlyn to call back if I could be of support and/or assistance. [facility]uing [facility] Pager [phone] documented in this encounter Plan of Treatment Upcoming Encounters Date Type Specialty Care Team Description 03/20/2022 Office Visit Neurology Vishnu Hooper MD [facility] NEUROLOGY DEPT. [place], [place] [address] (Wo rk) documented as of this encounter Visit Diagnoses Not on filedocumented in this encounter Care Teams Director Funds Development Relationship Specialty Start Date End Date Griselda Stanley MD PCP - General 07/04/10 02/03/22 documented as of this encounter
--- OUTSIDE RECORDS SUMMARY | 2022-02-26 03:58 | XMS_ITS | Encounter Summary ---
:1955 Author Organization [facility] [place] [address] Care Team Providers Name Role Phone Griselda Stanley MD Primary Care Provider Reason for Visit Reason Onset Date Comments Medical Care Coordination 05/08/2021 Encounter Details Date Type Department Care Team Description 05/08/2021 Notes Only Neurology at [facility] Margareth Rose, [place] [address] Social History Tobacco Use Types Packs/Day [...] encounter Progress Notes Margareth Rose MSW - 05/08/2021 12:48 PM EDT Received voicemail from Ana Lilia (Marcell's ) stating they had not yet received the U-Step walker but had spoken with the vendor. Ana Lilia stated they need to pay [id number] for it initially and then submit for reimbursement, so she is waiting until they can afford it. Ana Lilia also stated in voicemail that she had not received information on support groups yet (UTILITY TRACTOR OPERATOR had sent email with information). Gathered resources to mail through the postal services. Contacted Ana Lilia by phone and let her know information would be coming in the mail. Ana Lilia reports they went away to see family for a few days and rented a motorized chair for Marcell which they found very helpful. The one she had ordered through [employer] ended up being a scam so she was refunded the money and is looking at other purchasing options. Encouraged Ana Lilia to reach out as needed for support and assistance ROSCOE Nick Continuing She[facility] [employer] [facility] Pager [phone] documented in this encounter Plan of Treatment Upcoming Encounters Date Type Specialty Care Team Description 03/20/2022 Office Visit Neurology Vishnu Hooper MD [facility] NEUROLOGY DEPT. [place], [place] [address] (Wo rk) documented as of this encounter Visit Diagnoses Not on filedocumented in this encounter Care Teams Toolroom Machinist Relationship Specialty Start Date End Date Griselda Stanley MD PCP - General 07/04/10 02/03/22 documented as of this encounter
--- OUTSIDE RECORDS SUMMARY | 2022-02-26 03:58 | XMS_ITS | Clinical Summary ---
:1955 Author Organization [facility] [place] [address] Care Team Providers Name Role Phone None Primary Care Provider Unavailable Allergies No known active allergies Medications Medication Sig Dispensed Refills Start Date End Date Status omeprazole (PRILOSEC) Take 40 mg by mouth 0 04/02/20 16 Active 40 mg Capsule, daily as needed. 1 Delayed Release(E.C.) capsule three times weekly cholecalciferol, Take 1,000 Units by 0 Active Vitamin D3, 1,000 mouth daily. unit Tablet acetaminophen Take 1,000 mg by 0 Active (TYLENOL) 500 mg mouth every 6 hours Tablet as needed for Pain. entacapone (Comtan) Take 1 tablet by 90 tablet 5 11/30/2019 Active 200 mg Tablet mouth 3 times daily. Take with each dose of carbidopa-levodopa. Aware of previous intolerance because nausea glipiZIDE (Glucotrol) Take 5 mg by mouth 0 Active 5 mg Tablet daily. polyethylene glycol Take 17 g by mouth 14 each 0 12/30/2019 Active (Miralax) 17 gram daily as needed. Powder in Packet Additional Information Patient not taking. Reported on 09/22/2021 atorvastatin (Lipitor) 10 mg Take 1 tablet by mouth 90 tablet 3 12/30/2019 Active Tablet every evening. Additional Information Patient not taking. Reported on 09/22/2021 blood sugar diagnostic by Other route. Use as 0 Active strips Strip instructed carbidopa-levodopa Take 1 tablet by mouth 5 150 tablet 3 08/23 Active (Sinemet) 25-250 mg times daily. Take at 9am, TabletIndications: 12noon, 3pm, 6pm and 9 pm Parkinson's disease Additional Information Patient taking differently: 1 tablet Oral 3 TIMES DAILY, Take at 8am, 12noon, 4pm, and 9 pm, Reported on 09/22/2021 metoprolol succinate XL Take 1 tablet by mouth 30 tablet 12 Active (Toprol-XL) 50 mg Tablet daily. Sustained Release 24 hr metoprolol tartrate Take 50 mg by mouth 0 09/07/2020 Active (Lopressor) 100 mg Tablet daily. Half in the morning and half at night DULoxetine DR (Cymbalta) 60 Take 60 mg by mouth 2 0 12/01/2020 Active mg Capsule, Delayed times daily. Release(E.C.) metFORMIN (GLUCOPHAGE) 1,000 Take 1,000 mg by mouth 2 0 11/09/2020 Active mg Tablet times daily. gabapentin (Neurontin) 100 100 mg daily. 0 1 Active mg Capsule QUEtiapine (SEROquel) 25 mg Take 0.5 tablets by 5 tablet 0 Active Tablet mouth nightly as needed. Additional Information Patient not taking. Reported on 09/22/2021 Active Problems Problem Noted Date Encephalopathy, toxic 12/23/2020 Urinary tract infection 12/23/2020 UTI (urinary tract infection) 12/21/2020 Frailty 12/20/2020 Parkinson's disease 08/23/2020 Overview: Added automatically from request for lucia danial [id number] Last Assessment & Plan: Timbo Su (Staci) is a 65-year-old wit h Parkinson's disease, status post GPI DBS, with freezing of gait, and complicated by a new right foot drop likely from some polyneuropathy. He has an assessment by EMG tomorrow. In the meantime, from a Parkinson's standpoint, will try amantadine 100 mg twice daily. I will see him in follow-up in 3 months or sooner if the need arises. This was a DBS programming session. Dysphagia 12/27/2019 Atrial fibrillation 12/21/2019 Viral meningitis 12/20/2019 S/P deep brain stimulator placement 07/26/2017 Last Assessment & Plan: Formatting of th is note might be different from the original. Continue DBS stimulation for Parkinson's disease Mixed anxiety and depressive disorder 11/15/2015 Sensory ataxia 11/04/2014 Diabetic polyneuropathy 11/04/2014 Orthostatic hypotension 03/23/2014 Hypertension 12/11/2011 Hyperlipidemia 12/11/2011 Diabetes mellitus 12/11/2011 Overview: With mild sensory polyneuropathy Carpal tunnel syndrome, bilateral 12/11/2011 Sciatica of left side 12/11/2011 Abnormal LFTs (liver function tests) 12/11/2011 Cholelithiasis 12/11/2011 REM behavioral disorder 12/11/2011 Ankle fracture, left 12/11/2011 Fatigue 12/11/2011 Resolved Problems Problem Noted Date Resolved Date Altered mental status 12/20/2019 12/27/2019 Parkinson's disease 12/11/2011 08/23/2020 Last Assessment & Plan: Formatting of th is note is different from the original. Patient Instructions You are seen in follow-up for Parkinson' s disease. Overall I am pleased with the new settings which we programmed today. There is a new program D. You can adjust this as needed. Examination otherwise shows some mild ri gidity in the lower extremities. I am not sure if there is a setting that can address that. For the anxiety, with add back the buspi pepito which was helpful in the past. I would like to start off with 10 mg once daily, and increase every 3 or 4 days to taking 1 tablet 3 times daily. We can go fr om there if any other prescriptions or d ose adjustments are needed. Encouraged to keep exercising. Keep on w alking. Continue staying active. If the left stimulator lead over the cla vicle continues to bother you, I can refer you back to Dr. Lopez to find some way to reposition the leads. Encounters Date Type Specialty Care Team Description 02/13/2022 Transcribe Orders Primary Care Shamir Arterial i schemic stroke; MD Gilbert Acute ischemic left middle cerebral artery (MCA) stroke; Acute CVA (cere brovascular accident); Cerebrovascular accident (CVA), unspecified mechanism; Aphasia; Dysarthria 02/04/2022 Hospital Encounter Emergency Medicine Daryl Ingram MD 02/04/2022 Emergency Emergency Medicine Braxton, Cerebrova scular accident DO Dhruv (CVA), unspecif ied mechanism from Last 3 Months Social History Tobacco Use Types Packs/Day Years [...] place to sleep or slept in a half-way (including now)? Sex Assigned at Date Recorded Not on file Last Filed Vital Signs Vital Sign Reading Time Taken Comments Blood Pressure 150/76 02/04/2022 12:45 PM EDT Pulse 69 02/04/2022 12:45 PM EDT Temperature 36.3 ??C (97.3 ??F) 02/04/2022 11:18 AM EDT Respiratory Rate 16 02/04/2022 12:45 PM EDT Oxygen Saturation 95% 02/04/2022 12:45 PM EDT Inhaled Oxygen Concentration - - Weight 104.3 kg (230 lb) 09/22/2021 9:15 AM EST reporte d Height 185.4 cm (6' 1) 09/22/2021 9:15 AM EST reported Body Mass Index 30.34 09/22/2021 9:15 AM EST Plan of Treatment Upcoming Encounters Date Type Specialty Care Team Description 03/20/2022 Office Visit Neurology Vishnu Hooper MD [facility] [place], [place] [address] (Wo rk) Health Maintenance Due Date Last Done Comments Covid-19 Vaccine (#1) 1960 Pneumoccocal Vaccine: 65+ (1 - 1961 PCV) DM Hemoglobin A1c 1965 DM Opthalmology Exam 1965 DM Urine Microalbumin yearly 1965 Hepatitis C Screening 1973 Tdap adult 1974 Tetanus vaccine 1974 Colonoscopy 2000 Zoster vaccine (1 of 2) 2005 AAA Screen 2020 Influenza (Flu) vaccine (1 of 1 - 04/12/2022 Influenza standard series) DM Creatinine yearly 02/04/2023 02/04/2022, 12/27/2020, 12/26/2020, Additional history exists Medical Devices Implanted Type Area Car Seat Upholsterer Device Shelf Model / Identifier Expiration Serial / Date Lot Tool,Extrct,Tb,Insert ([id number]) - [id number] IMPLANTS Rashawnheaven staci Love 70-CN-ET / Implanted: Qty: 1 on 06/17/2017 by Randall Sapp MD at [facility] & Company - / [id number] Exten,Act,Dbs,60cm ([id number]) - [id number] IMPLANTS Cranial Medtr onic-Neuro 03/23/2021 [id number] / Implanted: Qty: 1 on 06/24/2017 by Randall Sapp MD at [facility] logical Div - [id number] / [id number] Battery Generator Neurostimulator [employer] ([id number]) - Log [id number] IMPLANTS Left: [employer] [place] 02/22/2022 [id number] / Implanted: Qty: 1 on 09/21/2020 by Randall Sapp MD at [facility] Chest [employer] - [employer] [id number] / Explanted Type Area Car Seat Upholsterer Device Shelf Model / Identifier Expiration Serial / Date Lot Battery,Pc,Neurostimulator ([id number]) - [id number] IMPLANTS Chest Medtronic-Neurol 10/23/2018 [id number] / Implanted: Qty: 1 on 06/24/2017 by Randall Sapp MD at [facility] Wall ogical Div - [id number] / Explanted: Qty: 1 on 09/21/2020 by Randall Sapp MD [id number] Procedures Procedure Name Priority Date/Time Associated Comments Diagnosis RAPID COVID-19 PCR STAT 02/04/2022 12:30 Resul ts for this ([facility]D/[facility]) PM EDT procedure are in the results section. CT HEAD WO & MULTIPHASE STAT 02/04/2022 11:52 Results for this CTA HEAD/NECK W (STROKE AM EDT proc edure are in PROTOCOL) the results section. GOLD TUBE HOLD STAT 02/04/2022 11:30 Results f or this AM EDT procedure are i n the results section. DIFFERENTIAL, AUTOMATED STAT 02/04/2022 11:30 Results for this AM EDT procedure are i n the results section. HEMOGRAM STAT 02/04/2022 11:30 Results for this AM EDT procedure are i n the results section. BASIC METABOLIC PANEL STAT 02/04/2022 11:30 Re sults for this (NON-FASTING) AM EDT procedure are in the results section. HC PARTIAL STAT 02/04/2022 11:30 Results for this THROMBOPLASTIN TIME AM EDT procedur e are in the results section. HC PROTHROMBIN TIME STAT 02/04/2022 11:30 Resu lts for this AM EDT procedure are i n the results section. HC CBC,PLT & AUTO DIFF STAT 02/04/2022 11:30 AM EDT BLOOD GAS 2 VENOUS Routine 02/04/2022 11:28 Resul ts for this AM EDT procedure are i n the results section. EKG 12-LEAD STAT 02/04/2022 11:16 Results for this AM EDT procedure are i n the results section. POCT GLUCOSE Routine 02/04/2022 11:16 Results for this AM EDT procedure are i n the results section. from Last 3 Months Results COVID-19 PCR (02/04/2022 12:30 PM EDT) [facility] Method Time Signature SARS-CoV-2 Not Detected Not Detected GIUSEPPE RNA PCR [facility] Comment: This result should be interpreted in com bination with the clinical observations, patient history and epidem iological information. For testing of asymptomatic individuals, assay performa nce characteristics and clinical utility have not been evaluated. Testing for SARS-CoV-2 (Severe acute respiratory syndrome coronavirus 2, form erly known as 2018 novel coronavirus or 2018-nCoV) to aid in the diagnosis of CO VID-19 is performed using the Simplexa COVID-19 Direct Assay by [employer]am[employer] as authorized by the FDA issued Emergency Use Authorization (EUA). This assay is intended for In-vitro Diagnostic (IVD) use with nasopharyngeal swabs collected from individuals meeting the CDC criteria for testing. Th e assay is performed based on the instructions for use and additional guid geovany provided by the FDA. Testing is performed in the Microbiology Laboratory within the Department of Pathology and Laboratory Medicine at [facility], certified under the Clinical Laboratory Improvement [...] clinical management guidance information are available at [facility] CDC Coronavirus Disease 2019 (COVID-19) webpage under Information fo r Healthcare Professionals (https://www.cdc.gov/coronavirus/2019-nc ov/hcp/index.html). Additional information about this and ot her EUA tests can be found in provider and patient fact sheets at the following FDA website: https://www.fda.gov/medical-devices/ahlocdtyyld-gwpwgam-2869-jllwn-82-syjmlkrpo- oao-mumdhhqtvtoriq-cnpmkfa-devices/zeimo-czgqsjdtpwf-feqi SARS-CoV-2 Source REJOGGER Swab [facility] Specimen (Source) Anatomical Collection Method Collection Time Re ceived Time Location / / Volume Laterality Nasopharyngeal Swab 02/04/2022 12:30 0601/2022 PM EDT 1:10 PM EDT Comment: Symptoms->Surveillance Resulting Agency Comment Spec In Lab Dhruv Limon DO MICROBIOLOGY - GENERAL ORDER SHEKHAR Performing Organization Address City/State/[place] [address] Head wo & [...] who have questions please contact the health out of school hours care worker that requested your imaging first. ? Electronically signed by: NGOC Hua Counts Include [address] [facility] ([phone]), at 02/04/2022 12:37 PM --------ORIGINAL REPORT -------- EXAMINATION: CT HEAD WO & MULTIPHASE CTA HEAD/NECK (THROMBECTOMY PROTOCOL) CLINICAL HISTORY: R arm and leg weakness and garbled speech, rule out CVA TECHNIQUE: CT of head without intravenous contrast. Multiphase CTA of the carotids and rampart of Serrato is performed after the administration [...] who have questions please contact the health out of school hours care worker that requested your imaging first. ? Electronically signed by: Ileana Caldera [facility] ([phone]), at 02/04/2022 12:05 PM Impressions 02/04/2022 12:05 PM EDT Proximal left [...] who have questions please contact the health out of school hours care worker that requested your imaging first. ? Electronically signed by: NGOC Hua Counts Include [address] [facility] ([phone]), at 02/04/2022 12:05 PM Narrative 02/04/2022 12:05 PM EDT EXAMINATION: CT HEAD WO & MULTIPHASE CTA HEAD/NECK (THROMBECTOMY PROTOCOL) CLINICAL HISTORY: R arm and leg weakness and garbled speech, rule out CVA TECHNIQUE: CT of head without intravenous contrast. Multiphase CTA of the carotids and rampart of Serrato is performed after the administration [...] contrast. Multiphase CTA of the carotids and rampart of [place]err[place] is performed after the administration [...] ho have questions please contact the health out of school hours care worker that requested your imaging first. Electronically signed by: Ileana Caldera [facility] ([phone]), at 02/04/2022 12:05 PM Dhruv Limon DO IMStefany CT ORDERABLES (ABNORMAL) Hemogram (02/04/2022 11:30 AM EDT) Analysis Performed At Patho logist Time Signature WBC 8.3 4.0 - 9.5 [facility] ESTELITA x10(3)/[facility] LABORATORY RBC 4.33 (L) 4.58 - GIUSEPPE EST[place] 5.54 [facility] x10(6)/[facility] LABORATORY Hemoglobin 12.5 (L) 13.7 - [facility] [place] 16.5 g/dL [facility] Hematocrit 37.2 (L) 40.5 - [facility] [place] 48.5 % [facility] MCV 85.9 82.9 - [facility] [place] 93.1 fL [facility] MCH 28.9 27.5 - [facility] [place] 32.1 pg [facility] MCHC 33.6 32.0 - [facility] ESTEL[place] 35.7 g/dL [facility] Platelets 144 (L) 145 - 357 [facility] x10(3)[facility] LABORATORY RDWSD 43.9 36.0 - [facility] 45.0 [facility] RDWCV 14.0 (H) 11.4 - [facility] 13.8 % [facility] MPV 11.6 7.6 - 12.9 [facility] LABORATORY nRBC % Auto 0.0 % [facility] nRBC Abs Auto 0.000 0.000 - [facility] 0.000 [facility] x10(3)/[facility] LABORATORY Specimen Anatomical Collection Method Collection Time Receive d Time (Source) Location / / Volume Laterality Blood 02/04/2022 11:30 02/04/2022 AM EDT 11:30 AM EDT Resulting Agency Comment Spec In Lab Maida Chavez MD HEMATOLOGY ORDERABLES Performing Organization Address City/State/[place] [address] Differential, Automated (02/04/2022 11:30 AM EDT) P athologist Signature Neutrophils % 66.3 % [facility] Neutr Abs (ANC) 5.48 1.70 - [facility] 6.10 [facility] x10(3)[facility] LABORATORY Lymphocytes % 25.0 % [facility] Lymphocytes Abs 2.1 0.9 - 3.2 [facility] x10(3)/[facility] LABORATORY Monocytes % 7.3 % [facility] Monocyte Abs 0.6 0.3 - 0.9 [facility] x10(3)[facility] LABORATORY Eosinophils % 0.8 % [facility] Eosinophils Abs 0.1 0.0 - 0.4 [facility] x10(3)[facility] LABORATORY Basophils % 0.4 % [facility] Basophils Abs 0.0 0.0 - 0.1 [facility] x10(3)[facility] LABORATORY Immature Gran % 0.20 % [facility] Comment: Immature granulocytes(IG's)percentage an d absolute count will include metamyelocytes, myelocytes, and promyelo cytes. Blood smears from CBCs yielding IG's will be scanned manually for concor dance. If this scan disagrees with the automated IG or if promyelocytes are not ed, a manual differential will be performed. Anneliese Gran Abs 0.02 0.00 - 0.04 x10(3)/mcL MAR Y [facility] Specimen Anatomical Collection Method Collection Time Receive d Time (Source) Location / / Volume Laterality Blood 02/04/2022 11:30 02/04/2022 AM EDT 11:30 AM EDT Resulting Agency Comment Spec In Lab Maida Chavez MD HEMATOLOGY ORDERABLES Performing Organization Address City/[facility]/ZIP Code Phon e Number [address] Gold Tube HOLD (02/04/2022 11:30 AM EDT) P athologist Signature Gold Hold Sample in [facility] LABORATORY Specimen Anatomical Collection Method Collection Time Receive d Time (Source) Location / / Volume Laterality Blood Venous Draw / 02/04/2022 11:30 02/04/2022 Unknown AM EDT 11:30 AM EDT Maida Chavez MD CHEMISTRY ORDERABLES Performing Organization Address City/[facility]/ZIP Code Phon e Number [address] APTT (02/04/2022 11:30 AM EDT) P athologist Signature PTT 27 25 - [address] [facility] Comment: The PTT is NOT [...] Limon DO HEMATOLOGY ORDERABLES Performing Organization Address City/[facility]/[place] [address] Prothrombin Time (02/04/2022 11:30 AM EDT) P athologist Signature PT 12.2 9.4 - 12.5 [facility] LABORATORY INR 1.[address] [facility] Comment: An INR <2.0 indicates [...] Organization Address City/State/ZIP Code Phon e Number [address] Basic Metabolic Panel (non-fasting) (02/04/2022 11:30 AM EDT) athologist Signature Glucose Lvl 151 65 - 199 [facility] mg/dL [facility] Comment: Diabetes: >=200 mg/dL plus symp toms BUN 12 10 - 20 mg/dL [facility] Creatinine 0.86 0.80 - 1.50 mg/dL [facility] Sodium 142 135 - 145 mmol/L [facility] Potassium 4.3 3.5 - 5.0 mmol/L [facility] Comment: Please note: ??Patients with WBC >100,00 0 may have falsely elevated Potassium levels. ??For accurate Potassium quantif ication in these patients send serum separator tube (gold top) for subsequent determinations. ??Contact the Clinical Chemistry Laboratory if there are any qu estions. Chloride 106 98 - 107 mmol/L [facility] CO2 25 22 - 31 mmol/L [facility] Anion Gap 11 5 - 15 mmol/L [facility] Calcium 9.3 8.5 - 10.5 mg/dL [facility] Estimated GFR 95 >=60 mL/min/1.73 m?? [facility] Comment: This patient's estimated GFR [...] Organization Address City/State/[place] [address] (ABNORMAL) BLOOD GAS 2 VENOUS (02/04/2022 11:28 AM EDT) Analysis Performed At Patho logist Time Signature pH Manny 7.37 7.32 - [facility] 7.42 [facility] pCO2 Manny 44 41 - 51 [facility] LABORATORY pO2 Manny 20 (L) 25 - 40 [facility] LABORATORY HCO3 Manny 24.7 mmol/L [facility] BE Manny -0.6 mmol/L [facility] Hgb Blood Gas 12.7 (L) 13.7 - [facility] 16.5 g/dL [facility] O2HB Manny 30.1 % [facility] COHB Manny 1.8 % [facility] Comment: Nonsmokers: 0.5-1.5% COHB Smokers: Variable, but usually less than 10% Toxic: 20-30% COHB Lethal: Greater than 60% COHB METHB Manny 1.1 <=1.5 % [facility] Na Whole Blood 142 135 - 145 mmol/L [facility] K Whole Blood 4.3 3.5 - 5.0 mmol/L [facility] Comment: Please note: Patients with WBC >100,000 may have falsely elevated Potassium levels. Contact the Clinical Chemistry L aboratory if there are any questions. ICa Whole Blood 1.16 1.15 - 1.33 mmol/L [facility] Comment: Note: ??Total bilirubin higher than 20 m g/dL may lead to falsely low ionized calcium. CL Whole Blood 105 98 - 107 mmol/L [facility] Gluc Whole Bld 140 65 - 199 mg/dL [facility] Comment: Diabetes: >=200 mg/dL plus symp toms Lactate WB 2.0 0.5 - 2.2 mmol/L [facility] BGas Source Venous [facility] Specimen Anatomical Collection Method Collection Time Receive d Time (Source) Location / / Volume Laterality Blood 02/04/2022 11:28 02/04/2022 AM EDT 11:28 AM EDT Dhruv Limon DO CHEMISTRY ORDERABLES Performing Organization Address City/State/[place] [address] EKG 12 Lead (02/04/2022 11:16 AM EDT) [facility] gist Method Time Signature Ventricular rate 65 BPM MUSE SYSTEM Atrial Rate 65 BPM MUSE SYSTEM P-R Interval 238 ms MUSE SYSTEM QRS Duration 84 ms MUSE SYSTEM Q-T Interval 408 ms MUSE SYSTEM QTC Calculated 424 ms MUSE SYSTEM (Bezet) Calculated P [place] 87 degrees MUSE SYSTEM Calculated R [place] 42 degrees MUSE SYSTEM Calculated T [place] 46 degrees MUSE SYSTEM INTERPRETATION Sinus rhythm with 1st degree A-V block MUSE SYSTEM Otherwise normal ECG No previous ECGs available Confirmed by Delia Pierce MD ([id number]) on 02/14/2022 12:58:37 PM Specimen Anatomical Collection Method Collection Time Receive d Time (Source) Location / / Volume Laterality 02/04/2022 11:16 02/14/2022 AM EDT 12:58 PM EDT Dhruv Napierel DO ECG ORDERABLES Performing Organization Address City/State/ZIP Code Phon e Number MUSE SYSTEM POCT Glucose (02/04/2022 11:16 AM EDT) P athologist Signature POC Glucose 148 65 - 199 [facility]/dL [facility] Comment: Supplemental ranges: <140 mg/dL before meals <180 mg/dL all other times of the day Specimen Anatomical Collection Method Collection Time Receive d Time (Source) Location / / Volume Laterality Blood 02/04/2022 11:16 02/04/2022 AM EDT 11:16 AM EDT Emergency Dept POINT OF CARE TEST ORDERABLE S Performing Organization Address City/State/[place] [address] from Last 3 Months Insurance Payer Benefit Plan / Subscriber ID Effective Phone Address T ype Group Dates MEDICARE MEDICARE PART A [id number] 2013-Prese [phone] [place] [address] [employer] MEDICARE A[employer]NA MEDICARE [id number] 2020-Pres [address] [address] [place] [address] Advance Directives Documents on File Type Date Recorded Patient Perioperative Nurse Explanati on Advance Directives and 12/23/2020 1:18 PM 021 Living Will Personal Perioperative Nurse 09/21/2020 6:40 AM Silvino raman Sharlene: Latest Code Status on File Code Status Date Activated Date Inactivated Comments Attempt Cardiopulmonary Resuscitation - 12/23/2020 4:08 PM 021 8:41 PM Inpatient Code Status decision made by: Patient Full Code 12/20/2020 8:56 PM 12/23/2020 2:21 PM Does patient have capacity to make decision: Yes Full Code 12/25/2019 1:44 PM 12/30/2019 2:57 PM Does patient have capacity to make decision: Yes Full Code 12/20/2019 5:20 PM 12/25/2019 1:44 PM Does patient have capacity to make decision: Yes Full Code 06/24/2017 7:16 AM 06/24/2017 2:26 PM Does patient have capacity to make decision: Yes Care Teams Foot Setter Relationship Specialty Start Date End Date None PCP - General 02/04/22 None
--- OUTSIDE RECORDS SUMMARY | 2022-02-26 03:58 | XMS_ITS | Encounter Summary ---
:1955 Author Organization [facility] [place] [address] Care Team Providers Name Role Phone Griselda Stanley MD Primary Care Provider Reason for Visit Consultation (Routine) - Closed Specialty Diagnoses / Procedures Referred By Contact Refer red To Contact Neurology Diagnoses Parkinson's disease Winnie Stevenson, [facility] Neu[facility] 3c [employer] [place] [address] [place] [address] Referral ID Status Reason Start Date Expiration Date Visits V isits Requested Authorized [id number] Closed Consult, 04/11/2021 04/11/2022 1 1 Test & Treat Encounter Details Date Type Department Care Team Description 07/05/2021 Procedure visit Neurology at [facility] Lui sDaniel Hanson Polyneuropathy [facility] MD Nroberto associated with [facility] underlying disease [facility] [address] NEUROLOGY DEPT. [phone] [place] [address] Social History Tobacco Use Types Packs/Day Years [...] documented as of this encounter Progress Notes Luis Daniel Hanson MD - 07/05/2021 9:45 AM EST Timbo Su referred for EDX studies by Winnie Stevenson APRN [facility] [place] [address] [address] to look for evidence peripheral neuropathy and proximal myopathy. Report scanned into ED. 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 Proximal EMG showed no evidence of a myopathic process. He did have distal active and chronic changes i n the right lower extremity. There was no recruitment in the peroneus longus on the right which likely explains the patient's inversion of the right foot as he did have some recruitment in the tibialisposterior albeit diminished. We did not pursue paraspinal EMG on this patient as he had a very hard time positioning himself on the examining table. There was some subtle neuropathic changes proximallyin his legs that could suggest an underlying diabetic amyotrophy as well. documented in this encounter Plan of Treatment Upcoming Encounters Date Type Specialty Care Team Description 03/20/2022 Office Visit Neurology Vishnu Hooper MD [facility] NEUROLOGY DEPT. [place], [place] [address] (Wo rk) Scheduled Referrals Name Type Priority Associated Diagnoses Order S chedule Referral to Outpatient Referral Routine Parkinson's disease O rdered: Neurology 04/11/2021 documented as of this encounter Visit Diagnoses Diagnosis Polyneuropathy associated with underlyin g disease documented in this encounter Care Teams Book Cutter Relationship Specialty Start Date End Date Griselda Stanley MD PCP - General 07/04/10 02/03/22 documented as of this encounter
--- OUTSIDE RECORDS SUMMARY | 2022-02-26 03:58 | XMS_ITS | Encounter Summary ---
:1955 Author Organization [facility] [address] Care Team Providers Name Role Phone Griselda Stanley MD Primary Care Provider Encounter Details Date Type Department Care Team Description 12/30/2020 Office Visit Neurology at [facility] Vishnu Hooper MD S/P deep brain stimulator placement; [facility] [address] [place]. [address] [place] [address] [phone] Social History Tobacco Use Types Packs/Day Years [...] place to sleep or slept in a usp (including now)? Sex Assigned at Date Recorded Not on file documented as of this encounter Last Filed Vital Signs Vital Sign Reading Time Taken Comments Blood Pressure 131/65 12/30/2020 10:12 AM EDT Pulse 56 12/30/2020 10:12 AM EDT Temperature - - Respiratory Rate - - Oxygen Saturation - - Inhaled Oxygen Concentration - - Weight 106.6 kg (235 lb) 12/30/2020 10:12 AM EDT Height 185.4 cm (6' 1) 12/30/2020 10:12 AM EDT reporte d Body Mass Index 31 12/30/2020 10:12 AM EDT documented in this encounter Progress Notes Vishnu Hooper MD - 12/30/2020 10:00 AM EDT [facility] Follow-up Note Patient ID: Timbo Su is a 65 y.o. year old male who presents in follow-up. Subjective Patient Active Problem List Diagnosis ??? Encephalopathy, toxic ??? Urinary tract infection ??? UTI (urinary tract infection) ??? Frailty ??? Parkinson's disease Added automatically from request for surgery [id number] ??? Dysphagia ??? Atrial fibrillation ??? Viral [...] Ankle fracture, left ??? Fatigue Interval history: I had a chance to see Tibmo Su in neurological follow-up for Parkinson's disease. He was recently discharged from the hospital for a urinary tract infection. Over the last 6 months since he was last seen in August, the major problem seems to be an emergence of gait freezing. He is stumbling a lot more and his has noted that he tends to lean towards the right when he walks.He has had an outbreak of shingles. He is also had this urinary tract infection a few weeks before as well. Review of Systems: Notable for significant complaints of low back pain and hip pain presumably from arthritic problems.[ ] Review of Systems otherwise negative. Adverse reactions/allergies: No Known Allergies Medications at start of encounter: Outpatient Medications Prior to Visit Medication Sig Dispense Refill ??? metoprolol succinate XL (Toprol-XL) 50 mg Tablet Sustained Release 24 hr Take 1 tablet by mouth daily. 30 tablet 12 ??? blood sugar diagnostic strips Strip by Other route. Use as instructed ??? carbidopa-levodopa (Sinemet) 25-250 mg Tablet Take 1 tablet by mouth 5 times daily. Take at 9am,12noon, 3pm, 6pm and 9 pm 150 tablet 3 ??? polyethylene glycol (Miralax) [...] intolerance because nausea 90 tablet 5 ??? DULoxetine (CYMBALTA) 30 mg Capsule, Delayed Release(E.C.) Take 60 mg by mouth 2 times daily. ??? acetaminophen (TYLENOL) 500 mg Tablet Take 1,000 mg by mouth every 6 hours as needed for Pain. ??? cholecalciferol, Vitamin D3, 1,000 unit Tablet Take 1,000 Units by mouth daily. ??? omeprazole (PRILOSEC) 40 mg Capsule, Delayed Release(E.C.) Take 40 mg by mouth daily as needed. ??? metFORMIN (GLUCOPHAGE) 500 mg tablet Take 1,000 mg by mouth 2 times daily (with meals). ??? metoprolol tartrate (Lopressor) 100 mg Tablet Take 60 mg by mouth daily. ??? DULoxetine DR (Cymbalta) 60 mg Capsule, Delayed Release(E.C.) Take 60 mg by mouth daily. ??? metFORMIN (GLUCOPHAGE) 1,000 mg Tablet Take 1,000 mg by mouth 2 times daily. ??? Miconazole Nitrate (Fungoid Tincture) 2 % Tincture Apply topically 2 times daily. ??? mirabegron 25 mg Tablet Sustained Release 24 hr Take 25 mg by mouth daily. ??? melatonin 3 mg Tablet Take 6 mg by mouth nightly as needed. No facility-administered medications prior to visit. Family [...] Types: Cigarettes Quit date: 12/10/1977 Years since quittin.1 ??? Smokeless tobacco: Never Used Vaping Use ??? Vaping Use: Never used Substance and Sexual Activity ??? Alcohol use: No ??? Drug use: No ??? Sexual activity: Not on file Comment: Deferred Other Topics Concern ??? Not on file Social History Narrative Lived in [place], moved to [place] 1980. Social Determinants of Health Financial Resource Strain: ??? Difficulty of Paying Living Expenses: Food Insecurity: ??? Worried About Running Out of Food in the Last Year: ??? Ran Out of Food in the Last Year: Transportation Needs: ??? Lack of Transportation (Medical): ??? Lack of Transportation (Non-Medical): Physical Activity: ??? Days of Exercise per Week: ??? Minutes of Exercise per Session: Objective: Vitals: 12/30/20 1012 BP: 131/65 Pulse: 56 Weight: 106.6 kg (235 lb) Height: 185.4 cm (6' 1) Deep brain stimulators were interrogated and he had very mild parkinsonism on examination. He did not have the classic freezing of gait but he did have left hip gluteal weakness and was unable to standon his own unsupported on one leg due to what appears to be gluteal weakness bilaterally. He was unable to stand with the right leg as well. Because of the inability to bear weight on 1 leg, he had to shuffle in order to advance one leg in front of the other. He had absent reflexes in the patella and ankles. Sensory exam was also diminished to vibration. Presumably related to diabetic neuropathy. He did have very little muscle mass as well although I do not see any fasciculations, there appears to be significant atrophy in the lower extremities. Laboratory studies include troponin and CK which were negative for troponins but on the recent hospitalization was 637 and 425 respectively. Assessment and Plan: S/P deep brain stimulator placement Continue DBS stimulation for Parkinson's disease Parkinson's disease Parkinson's appears to be stable, I changed the pulse width from 90-60, without any long-term consequence. I am hoping this reduction a point to help with maintaining battery life. At this point he hasvery minimal Parkinson's and he is doing well on the current medications. I am concerned that his elevated CK may represent a proximal myopathy resulting in hip girdle weakness. Also in the differential would be neuromuscular weakness from lumbosacral radiculopathy secondary to severe degenerative disc disease. Other possible causes of lower extremity hip weakness would be diabetic amyotrophy, but heappears to be too well and not complaining of pain to the extent that would make me suspicious of this. In any event, it would be helpful to obtain electrodiagnostic studies to rule out any myopathic changes in the gluteal muscles and also to possibly evaluate for any other signs of denervation that would suggest that he has a particular radiculopathy. If the helpful if motor nerve conduction studiescould be done in the lower extremities. He already has an appointment with Dr. Linton to performa carpal tunnel evaluation, and I am hoping that they would be able to also direct her attention to the lower extremities as well. I communicated this to Gwen and will ask them to follow-up with 's office for a repeat CK level. I would like to have him come back to see Winnie messer [facility] nurse practitioner in 3 months and with me in 6 months. Patient instructions There are no Patient Instructions on file for this visit. Orders No orders of the defined types were placed in this encounter. Medication changes: I am having Timbo Faith maintain his omeprazole, cholecalciferol (Vitamin D3), acetaminophen, entacapone, glipiZIDE, polyethylene glycoL, atorvastatin, blood sugar diagnostic strips, carbidopa-levodopa, metoprolol succinate XL, metoprolol tartrate, DULoxetine DR, and metFORMIN. Vishnu Hooper MD PhD [facility] Neurology documented in this encounter Miscellaneous Notes Assessment & Plan Note - Vishnu Hooper MD - 01/10/2021 2:31 PM EDTAssociated Problem(s): Parkinson's disease Parkinson's appears to be stable, I changed the pulse width from 90-60, without any long-term consequence. I am hoping this reduction a point to help with maintaining battery life. At this point he hasvery minimal Parkinson's and he is doing well on the current medications. I am concerned that his elevated CK may represent a proximal myopathy resulting in hip girdle weakness. Also in the differential would be neuromuscular weakness from lumbosacral radiculopathy secondary to severe degenerative disc disease. Other possible causes of lower extremity hip weakness would be diabetic amyotrophy, but heappears to be too well and not complaining of pain to the extent that would make me suspicious of this. In any event, it would be helpful to obtain electrodiagnostic studies to rule out any myopathic changes in the gluteal muscles and also to possibly evaluate for any other signs of denervation that would suggest that he has a particular radiculopathy. If the helpful if motor nerve conduction studiescould be done in the lower extremities. He already has an appointment with Dr. Linton to performa carpal tunnel evaluation, and I am hoping that they would be able to also direct her attention to the lower extremities as well. I communicated this to Gwen and will ask them to follow-up with 's office for a repeat CK level. I would like to have him come back to see Winnie messer movem Assessment & Plan Note - Vishnu Hooper MD - 01/10/2021 2:31 PM EDTAssociated Problem(s): S/P deep brain stimulator placement Continue DBS stimulation for Parkinson's disease documented in this encounter Plan of Treatment Upcoming Encounters Date Type Specialty Care Team Description 03/20/2022 Office Visit Neurology Vishnu Hooper MD [facility] NEUROLOGY DEPT. [place], [place] [address] (Wo rk) documented as of this encounter Visit Diagnoses Diagnosis S/P deep brain stimulator placement Parkinson's disease Paralysis agitans documented in this encounter Care Teams Cloth Dyer Relationship Specialty Start Date End Date Griselda Stanley MD PCP - General 07/04/10 02/03/22 documented as of this encounter
--- OUTSIDE RECORDS SUMMARY | 2022-02-26 03:58 | XMS_ITS | Encounter Summary ---
:1955 Author Organization [facility] [place] [address] Care Team Providers Name Role Phone Griselda Stanley MD Primary Care Provider Encounter Details Date Type Department Care Team Description 10/18/2021 Office Visit Neurology at [facility] Vishnu Hooper MD Parkinson's disease [facility] [place] [address] NEUROLOGY DEPT. [phone] [place], [place] [address] (Wo rk) Social History Tobacco [...] documented as of this encounter Progress Notes Vishnu Hooper MD - 10/18/2021 1:30 PM EST Images from the original note were not included. [facility] Neurology Clinic Neurostimulator Programming Note Patient ID: Timbo Su is a 66 y.o. year old male who presents in follow-up. Programming note: From a symptom standpoint, he [...] C was modified with improved parkinsonian symptoms. Vishnu Hooper MD PhD [facility] Neu[facility] documented in this encounter Procedure Notes Vishnu Hooper MD - 10/18/2021 1:30 PM ESTAssociated Order(s): NEUROSTIMULATOR REPROGRAMMING Procedure(s): NEUROSTIMULATOR REPROGRAMMING Pre-Procedure Diagnose(s): Parkinson's disease Please see details in the progress note. documented in this encounter Plan of Treatment Upcoming Encounters Date Type Specialty Care Team Description 03/20/2022 Office Visit Neurology Vishnu Hooper MD [facility] NEUROLOGY DEPT. [place] [address] (Wo rk) documented as of this encounter Procedures Procedure Name Priority Date/Time Associated Comments Diagnosis NEUROSTIMULATOR Routine 10/18/2021 1:30 Parkinson's Results f or this REPROGRAMMING PM EST disease procedure are in the results section. documented in this encounter Results NEUROSTIMULATOR REPROGRAMMING (10/18/2021 1:30 PM EST) Narrative Vishnu Hooper MD - 10/18/2021 1:30 PM EST Vishnu Hooper MD ? 10/31/2021 ??1:43 AM Please see details in the progress note. Vishnu Hooper MD NEUROLOGY ORDERABLES documented in this encounter Visit Diagnoses Diagnosis Parkinson's disease Paralysis agitans documented in this encounter Care Teams Director Of Enrollment Relationship Specialty Start Date End Date Griselda Stanley MD PCP - General 07/04/10 02/03/22 documented as of this encounter
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
--- OUTSIDE RECORDS SUMMARY | 2022-02-26 03:58 | XMS_ITS | Encounter Summary ---
:1955 Author Organization [facility] [place] [address] Care Team Providers Name Role Phone Griselda Stanley MD Primary Care Provider Reason for Visit Reason Onset Date Comments Medication Problem 07/10/2021 Encounter Details Date Type Department Care Team Description 07/10/2021 Telephone Neurology at [facility] Vishnu Hooper MD Medication Problem [facility] [place] [address] NEUROLOG[address] DEPT. [phone] [place], [place] [address] (Wo rk) Social History Tobacco [...] place to sleep or slept in a long term (including now)? Sex Assigned at Date Recorded Not on file documented as of this encounter Miscellaneous Notes Telephone Encounter - Roxanna Alatorre RN - 07/14/2021 9:32 AM EST Per Winnie Stevenson: Jhonny Mcneal and Nirmala, I talked to Ana Lilia. She started the 100mg Amantadine on Saturday and he received a dose Saturday and today. I told her she can stop after today. He seems like he is slowly getting a little more conversant, etc. I called in some seroquel, 12.5 nightly prn for rescue if she needs it. He has hx of UTIs NIRMALA Hu. - would you be able to fax it over to PCP first thing in morning? Ana Lilia will take him over to get tested. I told her to message us and let us know how he is. I'm inpatient tomorrow, let me know what you hear. Courtney Urine culture order was faxed to PCP on 07/13/21 Plan: as above Telephone Encounter - Roxanna Monreal RN - 07/10/2021 2:33 PM EST Call returned to pt's . Pt started having vivid dreams almost immediately after starting the Amantadine Vivid dreams have gotten consistently worse, he is now Thrashing and stomping his feet at night. The hallucinations started on Saturday and are increasing. Pt is distressed by the hallucinations instructed to have pt stop Amantadine. He will reduce to 1 tablet daily for a week and then stop Will forward to Winnie Stevenson APRN and Vishnu Hooper MD Telephone Encounter - Leonard Martinez - 07/10/2021 12:35 PM EST Call Center / [place] Message - Medication Issue (Not to be used for refill request or medication prior auth request) Provider patient sees in Clinic: Vishnu Hooper Caller and relationship (if other than patient-full name): David Sung's Call Back Number: [phone] Ok to leave a message: yes Reason for call: Medication Issue (if medication issue is a symptom do not use this phrase) Message/information for the nurse: Pt's stated the Pt was started on a new prescription, Amantadine, which is working and releiving the Pt's rigidness. Pt's stated the Pt is starting to hallucinate and feels he can move around and he is falling, Pt is constantly trying to pepper picker something that is not there, Pt will fall asleep with food in his hand and having wild dreams. Pt's stated the medication does seem to be working for the problem it was prescribed for however it has brought on a series of problems that require her to watch the Pt more closely to ensure he does not get hurt. Name of Medication: Amantadine 100 mg Tablet Issue with the medication: side effects Disposition of Call: Routine Message sent to the Nurse Nurse contacted via: Message: y Call: n Pager: n documented in this encounter Plan of Treatment Upcoming Encounters Date Type Specialty Care Team Description 03/20/2022 Office Visit Neurology Vishnu Hooper MD [facility] NEUROLOGY DEPT. [place], [place] [address] (Wo rk) documented as of this encounter Visit Diagnoses Not on filedocumented in this encounter Care Teams Equipment Hire Manager Relationship Specialty Start Date End Date Griselda Stanley MD PCP - General 07/04/10 02/03/22 documented as of this encounter
--- OUTSIDE RECORDS SUMMARY | 2022-02-26 03:58 | XMS_ITS | Encounter Summary ---
:1955 Author Organization [facility] [address] Care Team Providers Name Role Phone Griselda Stanley MD Primary Care Provider Encounter Details Date Type Department Care Team Description 09/22/2021 Office Visit [place] [facility] Jasson Wilson, Diabetic polyneuropathy asso ciated with type 2 diabetes mellitus; [facility] KEN Treviño RN Parkinson's disease [facility] [phone] NEUROLOGY [phone] [place], [place] [address] Social History Tobacco Use Types Packs/Day Years [...] Sign Reading Time Taken Comments Blood Pressure 112/62 09/22/2021 9:15 AM EST Pulse 66 09/22/2021 9:15 AM EST Temperature - - Respiratory Rate - - Oxygen Saturation - - Inhaled Oxygen Concentration - - Weight 104.3 kg (230 lb) 09/22/2021 9:15 AM EST reporte d Height 185.4 cm (6' 1) 09/22/2021 9:15 AM EST reported Body Mass Index 30.34 09/22/2021 9:15 AM EST documented in this encounter Progress Notes Winnie Stevenson, URIAH - 09/22/2021 9:00 AM EST Movement Disorders Follow-up Note [facility] Timbo Su is a R -handed male who has no past medical history on file. here for a follow-up of PD. In review: Last seen by Dr. Hooper on 07/04 with some FOG, rigidity. DBS changed from pulse width 90-60, new groupcreated. Interim: Wasn't able to tolerate the amantadine. Had confusion and hallucinations. Still with R foot problems, very inverted. EMG studies with 2 weeks ago appt with GP: referral to company in [place], [place] [facility] and orthopedic br[facility]. In February, saw a someone in ortho, and got the brace they have now. Some fatigue by the end of the day which makes the foot worse. Stopped in June because of medicare benefits. Frustrated with PT services. Is still moving the foot and trying to exercise it to help avoid atrophy and contractures. C/L 25/250: 4x daily 8-9, 1 p.m., 5 pm and nighttime. Entacapone for for first three doses. Besides foot problems, is getting along pretty well. Problem List: Patient Active Problem List Diagnosis [...] (urinary tract infection) N39.0 ??? Encephalopathy, toxic G92.9 ??? Urinary tract infection N39.0 Current Medications See updated medication list below. Outpatient Medications Prior to Visit Medication Sig Dispense Refill ??? gabapentin (Neurontin) 100 mg Capsule 100 mg daily. ??? metoprolol tartrate (Lopressor) 100 mg Tablet Take 50 mg by mouth daily. Half in the morning andhalf at night ??? DULoxetine DR (Cymbalta) 60 mg Capsule, [...] taking differently: Take 1 tablet by mouth 3 times daily. Take at8am, 12noon, 4pm, and 9 pm) 150 tablet 3 ??? glipiZIDE (Glucotrol) 5 mg Tablet Take 5 mg by mouth daily. ??? entacapone (Comtan) 200 mg Tablet Take [...] 40 mg by mouth daily as needed. 1 capsule three times weekly ??? QUEtiapine (SEROquel) 25 mg Tablet Take 0.5 tablets by mouth nightly as needed. (Patient not taking: Reported on 09/22/2021) 5 tablet 0 ??? Amantadine 100 mg Tablet Take 1 tablet by mouth 2 times daily. For freezing of gait, If slight improvement, may increase to 3 times per day. (Patient not taking: No sig reported) 60 tablet 3 ??? polyethylene glycol (Miralax) 17 gram Powder in Packet Take 17 g by mouth daily as needed. (Patient not taking: Reported on 09/22/2021) 14 each 0 ??? atorvastatin (Lipitor) 10 mg Tablet Take 1 tablet by mouth every evening. (Patient not taking: Reported on 09/22/2021) 90 tablet 3 No facility-administered medications prior to visit. Drug [...] from waist below Bowel/bladder: urinary frequency/constipation Walking/Falls: as above Dropping: denies dropping or mishandling objects Freezing: denies FOG Numbness/Tingling/Pain: denies On/Off: n/a PHYSICAL EXAMINATION General Physical Examination Appearance: The patient is healthy-appearing and appears of stated age. he appears well-nourished and comfortable. Vital Signs: Recorded by the nurse as listed above. Head: Atruamatic. Normocephalic. Neck: Supple with normal range of movements. No cervical muscle spasm or tenderness. Extremities: Normal limb color and temperature; normal [...] L Elbow flexion 5/5 R, 5/5 L Home And Family Living Professor LE: 5/5 R, 5/5 L Hip flexion [...] resting tremor, mild intention tremor with FTN Gait: deferred. ASSESSMENT AND PLAN Timbo Su is a pleasant 66 y.o. yr old male here in f/u for PD. History and exam today notable for increased rigidity, continued R foot inversion. He is stable froma cognitive/hallucinatory standpoint. In conversation with both Marcell and Ana Lilia, they would like to see the [facility] facility in [place] for brace fitting first. After that, they are open to trying Aricept for assistance with gait/balance/rigidity. We will schedule a follow up for DBS interrogation, would like this kathy to assess if contributing to rigidity. All questions were answered. The patient was told to call with any additional questions or concerns that should arise in the interim. [facility]- Movement [place] [address] TEL: [phone] FAX: [phone] documented in this encounter Plan of Treatment Upcoming Encounters Date Type Specialty Care Team Description 03/20/2022 Office Visit Neurology Vishnu Hooper MD [facility] [address] NEUROLOGY DEPT. [place] [address] (Wo rk) documented as of this encounter Visit Diagnoses Diagnosis Diabetic polyneuropathy associated with type 2 diabetes mellitus Parkinson's disease Paralysis agitans documented in this encounter Care Teams Market Maker Relationship Specialty Start Date End Date Griselda Stanley MD PCP - General 07/04/10 02/03/22 documented as of this encounter
--- OUTSIDE RECORDS SUMMARY | 2022-02-26 03:58 | XMS_ITS | Encounter Summary ---
:1955 Author Organization [facility] [place] [address] Care Team Providers Name Role Phone Griselda Stanley MD Primary Care Provider Encounter Details Date Type Department Care Team Description 09/07/2021 Telephone Physical Therapy [place] [facility] [place], [facility] [place] [address] Social History Tobacco Use Types Packs/Day [...] place to sleep or slept in a senior living (including now)? Sex Assigned at Date Recorded Not on file documented as of this encounter Miscellaneous Notes Telephone Encounter - Ursula Diallo - 09/07/2021 4:31 PM EST Left message #1 on an unidentified voicemail to please call back [facility] in regards to a referral. When call back is received please inquire if wanting to schedule referral to PT. Thank you, Ursula documented in this encounter Plan of Treatment Upcoming Encounters Date Type Specialty Care Team Description 03/20/2022 Office Visit Neurology Vishnu Hooper MD [facility] NEUROLOGY DEPT. [place], [place] [address] (Wo rk) documented as of this encounter Visit Diagnoses Not on filedocumented in this encounter Care Teams Cloth Bin Packer Relationship Specialty Start Date End Date Griselda Stanley MD PCP - General 07/04/10 02/03/22 documented as of this encounter
--- OUTSIDE RECORDS SUMMARY | 2022-02-26 03:59 | XMS_ITS | Encounter Summary ---
:1955 Author Organization [place] [address] Care Team Providers Name Role Phone Griselda Stanley MD Primary Care Provider Encounter Details Date Type Department Care Team Description 09/02/2020 Telephone Neurosurgery at [facility] [place] [address] Social History Tobacco Use Types Packs/Day [...] this encounter Miscellaneous Notes Telephone Encounter - Madhuri Irwin - 09/05/2020 1:25 PM EST I called Gwen and told her that per Dr. Stanley OK to hold Xarelto for 48 hours pre-op. I relayed this information to Gwen. Telephone Encounter - Rashmi Byrd - 09/05/2020 1:[address] Stanley RN returning call to inform has OK from doctor to hold Xarelto. Telephone Encounter - Madhuri Irwin - 09/05/2020 10:02 AM EST I LM for the RN at Dr. Stanley's office and let her know we would like Marcell to hold his Xarelto for 48hours prior to his surgery per Fidel Han PA-C. Requesting they provide OK for him to do this given his conflicting history via chart review as to why he is on this medication. Telephone Encounter - Madhuri Irwin - 09/02/2020 1:18 PM EST I spoke with Marcell's Gwen about his Xarelto and the requirement prior to surgery in regards to holding this. Gwen believe Marcell takes Xarelto d/t the infection he had resulting in extended hospitalization in December 2019. In reviewing his chart he was started on Eliquis on 12/28/2019 for DVT prophylaxis/AF with RVR, however at d/c he was only given #14 tablets with no refills and he has not been seen back by Hematology. Gwen looked at the bottle and said refills had come from Griselda Stanley (PCP). I will call Dr. Stanley and double check that he is OK to hold, and see why a change in medication had been made. I told her I would f/u with her Saturday about when Marcell needs to hold this. --------- I spoke with Simin at Dr. Stanley's office. She informed me that Marcell was was transitioned to Xarelto d/t insurance reasons in January 2020. I asked her to discuss whether Marcell is OK to hold this medication prior to surgery which she will do. Telephone Encounter - Madhuri Irwin - 09/02/2020 1:18 PM EST ----- Message from Harsh Montoya sent at 09/02/2020 12:38 PM EST ----- Spoke with patients , said he is taking a blood thinner and it was something I hadn't heard of so just want to double check with you. He is to have surgery on 09-21 at the [facility] documented in this encounter Plan of Treatment Upcoming Encounters Date Type Specialty Care Team Description 03/20/2022 Office Visit Neurology Vishnu Hooper MD [facility] NEUROLOG[facility] DEPT. [place], [place] [address] (Wo rk) documented as of this encounter Visit Diagnoses Not on filedocumented in this encounter Care Teams Corporate Counselor Relationship Specialty Start Date End Date Griselda Stanley MD PCP - General 07/04/10 02/03/22 documented as of this encounter
--- OUTSIDE RECORDS SUMMARY | 2022-02-26 03:59 | XMS_ITS | Encounter Summary ---
:1955 Author Organization [facility] [place] [address] Care Team Providers Name Role Phone Griselda Stanley MD Primary Care Provider Encounter Details Date Type Department Care Team Description 09/21/2020 Anesthesia Event Outpatient Surgery Wendy Blevins MD [address] ANESTHESIOLOGY [facility], [facility] [address] [place] [address] [phone] Anesthesia Record Procedure Summary Procedure Name Responsible Anesthesia Start Anesthesia Stop Anesthesiologist Time Time PLACEMENT ADD'L CRANIAL Wendy Blevins MD 09/21/20 0742 09/21 0849 NEUROSTIMULATOR (WRVU 9.93) (Left Chest) Events Date Time Event Comment 09/21/2020 0721 0742 AN Verify 0742 Start 0742 An Start Data 0747 An Induction 0749 An Intubation 0751 Anesthesia Ready 0803 Procedure Start 0803 Skin Incision 0840 Extubation/LMA Out 0841 an stop data 0849 Recovery or ICU Handoff Patient care was transferred to the destination unit staff after review of the patient's medica l history, current anesthetic/surgi abelardo status and plan, according to the Provider Handoff Checklist. 0849 Stop Name Total fentaNYL 50 mcg IV Lidocaine 100 mg Propofol 200 mg Propofol INF 1,030 mg Dexamethasone 4 mg PHENYLephrine 240 mcg cefTRIAXone 1 g Vancomycin 1 g lactated ringers infusion 800 mL Agents Name O2 Air N2O Blood No blood administrations on file. Lines, Drains, and Airways Type Details Placement Removal Pressure Injury 06/17/17; 0709; yes; 06/17/17 0709 by 12/22/20 0 010 by coccyx; Stage 2; LDA not Maria D Rose RN O kojie, Cigal N, RN present upon assessment; 12/22/20; 0010 Incision 06/17/17; 0835; head; LDA 06/17/17 0835 by 12/25 1352 by not present upon Gloria Travis RN Romero, I ris M, RN assessment; 12/25/20; 1352 Incision 06/24/17; 0822; head 06/24/17 0822 by 12/25/20 1 353 by (Head, neck and chest); Gwen Figueredo Romero, Iris M, RN LDA not present upon chicken catcher; 12/25/20; 1353 Incision 06/24/17; 0830; other 06/24/17 0830 by Lauren, 1353 by (see comments) (Left JANNETTE Camilo Iri s M RN clavicular area); transverse; LDA not present upon assessment; 12/25/20; 1353 PIV 09/21/20; 0651; 09/21/20 0651 by Gavin, 09/21/20 0912 by metacarpal vein (top of JANNETTE Gonzalez Hannah E RN hand), left; frhl-imr-fzrbal catheter system; 20 gauge; sys; intradermal injection; 09/21/20; 0912 Supraglottic Mask Ventilation: Not 09/21/20 0749 by 09/21/20 0840 by Attempted (0); LMA Type: Julián Le, Julián Collier, iGel; LMA Size: 4; COVERED BUCKLE ASSEMBLER COVERED BUCKLE ASSEMBLER Inserted by: ROXY Le Incision 09/21/20; 0803; Left, 09/21/20 0803 by 12/25/20 1353 by upper; chest; 12/25/20; Chela Carrillo Ro mero, Iris M, RN 1353 RN documented in this encounter Social History Tobacco Use Types Packs/Day Years [...] on file documented as of this encounter OR Notes Anesthesia Postprocedure Evaluation - Wendy Blevins MD - 09/21/2020 11:14 AM EST Department of Anesthesiology Post-procedure Note Patient: Timbo Su Procedure Summary Date: 09/21/20 Room / Location: [address] Anesthesia Start: 741 Anesthesia Stop: 848 Procedures: PLACEMENT ADD'L CRANIAL NEUROSTIMULATOR (WRVU 9.93) (Left Chest) MODIFIER,NEUROSTIMULATOR,BATTERY EXCHANGE (N/A ) MODIFIER MOVEMENT DISORDER (N/A ) Diagnosis: Parkinson's disease (PD) Surgeons: Randall Sapp MD Responsible Provider: Wendy Blevins MD Anesthesia Type: general ASA Status: 3 All Anesthesia Providers: Anesthesiologist: Wendy Blevins MD COVERED BUCKLE ASSEMBLER: Sita Lan CRNA Student Nurse Mechanical Engineering Professor: Julián Le RN Vitals Value Taken Time BP 144/70 09/21/20 0900 Temp 36.1 ??C (97 ??F) 09/21/20 0846 Pulse 63 09/21/20 0907 Resp 16 09/21/20 0900 SpO2 92 % 09/21/20 0907 Pain Level 0 09/21/20 0900 Vitals shown include unvalidated device data. Patient Location: PACU/[facility] Level of Consciousness: Awake and Alert Pain Management: Satisfactory Analgesia PONV: None Cardiovascular Status: At Baseline Respiratory Status: At Baseline Postoperative Fluid Status: Intravascular EUvolemia Possible Anesthetic Complications: NONE apparent at time of evaluation Final Primary Anesthesia Type: General (The anesthetic type performed was the same as planned.) Comments: Anesthesia Preprocedure Evaluation - Wendy Blevins MD - 09/20/2020 6:19 PM EST Pre-Anesthesia Evaluation for: Timbo Su a 65 y.o. male. Procedure(s): PLACEMENT ADD'L CRANIAL NEUROSTIMULATOR (WRVU 9.93) MODIFIER,NEUROSTIMULATOR,BATTERY EXCHANGE MODIFIER MOVEMENT DISORDER Patient Active Problem List Diagnosis ??? Parkinson's disease Added automatically from request for surgery [id number] ??? Dysphagia ??? Atrial fibrillation ??? Viral [...] disorder ??? Ankle fracture, left ??? Fatigue No past medical history on file. Past Surgical History: Procedure Laterality Date ??? CHOLECYSTECTOMY ??? HIP SURGERY as a child ??? PRO APPLY/REMOVE CRANIAL FIX DEV Bilateral 06/10/2017 PLACEMENT-STARFIX FIDUCIALS (WRVU 4) performed by Randall Sapp MD at [facility] ? ? PRO IMP STIM, CRANIAL, SUBQ, >1 ARRAY Bilateral 06/24/2017 PLACEMENT ADD'L CRANIAL NEUROSTIMULATOR (WRVU 9.93) performed by Randall Sapp MD at [facility] ??? PRO IMPLANT NEUROELECTRDE, ADDL N/A 06/17/2017 @IMPLANTATION OF ADD'L NEUROSTIMULATOR ELECTRODE (WRVU 7.91) performed by Randall Sapp MD at [facility] ??? PRO IMPLANT NEUROELECTRODE Bilateral 06/17/2017 @IMPLANTATION OF NEUROSTIMULATOR ELECTRODE-LISBETH (WRVU 33.03) performed by Randall Sapp MD at [facility] Social History Tobacco Use ??? Smoking status: Former Smoker Types: Cigarettes Quit date: 12/10/1977 Years since quittin.8 ??? Smokeless tobacco: Never Used Substance Use Topics ??? Alcohol use: No Social History Substance and Sexual Activity Drug Use No No Known Allergies Medications: MAR and/or home medications have been reviewed. Physical Exam: No data found. There is no height or weight on file to calculate BMI. Airway Assessment: Mallampati: II TM distance: >3 FB Neck ROM: limited Cardiovascular Assessment: system normal Pulmonary Assessment: pulmonary exam normal Dental Assessment: - normal exam Misc Assessment: IV access: Peripheral line Anesthesia Plan: ASA 3 general, with a(n) intravenous induction 65 y/o gentleman with multiple comorbidities including HTN, hyperlipidemia, DM, afib, Parkinson's disease, diabetic neuropathy, anxiety/depression to undergo cranial neurostimulator battery change. Rivaroxaban held Plan GA with LMA Region - Other Informed Consent: Anesthetic plan and risks discussed with patient. Plan discussed with COVERED BUCKLE ASSEMBLER. PAT Clinic Note documented in this encounter Plan of Treatment Upcoming Encounters Date Type Specialty Care Team Description 03/20/2022 Office Visit Neurology Vishnu Hooper MD [facility] NEUROLOG[facility] DEPT. [place], [place] [address] (Wo rk) documented as of this encounter Visit Diagnoses Not on filedocumented in this encounter Administered Medications Inactive Administered Medications - up to 3 most recent administrations Medication Order MAR Action Action Date Dose Rate Site cefTRIAXone (Rocephin) injection Given 09/21/2020 7:51 AM EST 1 g Intravenous, PRN, Starting on Sat09/21/20 at 0800, Until Sat09/21/20 at 0852, Anesthesia Intra-op, Routine dexamethasone (Decadron) injection Given 09/21/2020 8:13 AM EST 4 mg Intravenous, PRN, Starting on Sat09/21/20 at 0813, Until Sat09/21/20 at 0852, Anesthesia Intra-op, Routine fentaNYL (pf) (50 mcg/mL) multi-dose Given 09/21/2020 8:02 AM ES T 25 mcg injection Intravenous, PRN, Starting on Sat09/21/20 at 0756, Until Sat09/21/20 at 0852, Anesthesia Intra-op, Routine Given 09/21/2020 7:56 AM EST 25 mcg lactated ringers infusion Restarted 09/21/2020 8:07 AM EST 1,000 mL, at 100 mL/hr, Intravenous, CONTINUOUS, Starting on Sat09/21/20 at 0645, Until Sat09/21/20 at 0936, Day of Surgery (Day of Procedure) New Bag 09/21/2020 6:52 AM EST 1,000 mLs 100 mL/hr lidocaine (pf) (Xylocaine) (20 mg/mL) 2% Given 09/21/2020 7:47 A M EST 100 mg injection syringe Intravenous, PRN, Starting on Sat09/21/20 at 0747, Until Sat09/21/20 at 0852, Anesthesia Intra-op, Routine PHENYLephrine in NS (PF) (DEMETRIUS-SYNEPHRINE) 0.8 Given 8:22 AM EST 80 mcg mg/10 mL (80 mcg/mL) multi-dose injection Syrg Intravenous, PRN, Starting on Sat09/21/20 at 0810, Until Sat09/21/20 at 0852, Anesthesia Intra-op, Routine Given 09/21/2020 8:10 AM EST 160 mcg propofoL (Diprivan) 10 mg/mL bolus injection Given 05/2021 7:47 AM EST 200 mg (Anesthesia) Intravenous, PRN, Starting on Sat09/21/20 at 0747, Until Sat09/21/20 at 0852, Anesthesia Intra-op propofoL (Diprivan) infusion Rate/Dose 09/21/2020 8:26 50 mcg/kg/min 30.9 mL/hr Intravenous, CONTINUOUS PRN, Change AM EST Starting on Sat09/21/20 at 0749, Until Sat09/21/20 at 0852, Anesthesia Intra-op, Routine Rate/Dose Change 09/21/2020 8:22 AM EST 150 mcg/kg/min 92.7 mL/hr Rate/Dose Change 09/21/2020 8:12 AM EST 175 mcg/kg/min 108.15 mL/hr vancomycin (Vancocin) injection Given 09/21/2020 7:42 AM EST 1 g Intravenous, PRN, Starting on Sat09/21/20 at 0742, Until Sat09/21/20 at 0852, Anesthesia Intra-op, Routine documented in this encounter Care Teams Slip Cover Sewer Relationship Specialty Start Date End Date Griselda Stanley MD PCP - General 07/04/10 02/03/22 documented as of this encounter
--- OUTSIDE RECORDS SUMMARY | 2022-02-26 03:59 | XMS_ITS | Encounter Summary ---
:1955 Author Organization [facility] [place] [address] Care Team Providers Name Role Phone Griselda Stanley MD Primary Care Provider Reason for Visit Reason Onset Date Comments Triage 12/15/2020 Encounter Details Date Type Department Care Team Description 12/15/2020 Telephone Neurology at [facility] Vishnu Hooper MD Triage [facility] [place] [address] NEUROLOGY DEPT. [phone] [place], [place] [address] (Wo rk) Social History Tobacco [...] encounter Miscellaneous Notes Telephone Encounter - Roxanna Monreal RN - 12/16/2020 10:34 AM EDT Call returned to , Pt diagnosed with Shingles about 1.5 weeks ago. Lesions are still present, completed anti-virals Saturday. Pt was hospitalized last December and says he has never really regained his strength. In the past 2 weeks, says pt has gotten really weak. Shingles lesions are on R buttock and down leg, pt c/o pain in hip and lower back. When toucheshim, pt says it feels like an electrical shock reassured that shingles infection will exacerbate chronic conditions. Pt does not have any pain medications for shingles, instructed to call PCP office and request home health referral for PT since he was seen recently for help with strengthening and balance. instructed to let PCP office know that pt needs medication for the shingles pain as well. reassured after call, will follow up with PCP Telephone Encounter - Yari Rodriguez - 12/15/2020 4:37 PM EDT Call Center / [place] Message Fall / Falls / Falling Provider patient sees in Clinic: Vishnu Hooper Caller and Relationship (if other than patient): dakota Stoddard Call back number: [phone] OK to leave message: yes Reason for call: Fall/Falls If the patient did not fall and hit head ask How often are falls occurrinx a day When was your last fall: 30 mins ago Current questions: She's very concerned with how often this is occurring currently Additional information for the nurse: Battery changed in his deep brain stimulator a few months ago.He recently had Shingles. Disposition of Call ??? Routine message sent to nurse documented in this encounter Plan of Treatment Upcoming Encounters Date Type Specialty Care Team Description 03/20/2022 Office Visit Neurology Vishnu Hooper MD [facility] NEUR[facility] DE[facility]. [place], [place] [address] [phone] (Wo rk) documented as of this encounter Visit Diagnoses Not on filedocumented in this encounter Care Teams Primary Care Md Relationship Specialty Start Date End Date Griselda Stanley MD PCP - General 07/04/10 02/03/22 documented as of this encounter
--- OUTSIDE RECORDS SUMMARY | 2022-02-26 03:59 | XMS_ITS | Encounter Summary ---
:1955 Author Organization [facility] [place] [address] Care Team Providers Name Role Phone Griselda Stanley MD Primary Care Provider Reason for Visit Reason Onset Date Comments Triage 04/04/2020 Encounter Details Date Type Department Care Team Description 04/04/2020 Telephone Neurology at [facility] Vishnu Hooper MD Triage [facility] [place] [address] NEUROLOGY DEPT. [phone] [place], [place] [address] (Wo rk) Social History Tobacco [...] Telephone Encounter - Roxanna Monreal RN - 04/04/2020 1:15 PM EDT Call returned to , verbal permission given by pt to speak with states she thinks the parkinson's is progressing, he has had worse symptoms since he was in thespital in December. is willing to complete 7 day symptom log to help pinpoint problem times. Pt currently taking Carbidopa-Levodopa 25-250 4x/day. says he is having more gait freezing than he did before. WIll ask scheduling legal secretary to look for earlier appt/put pt on cancellation list Telephone Encounter - Ami Zendejas - 04/04/2020 11:06 AM EDT Call Center / [place] Message - General Issue Call Provider patient sees in Clinic: Vishnu Hooper Caller and relationship (if other than patient-full name): Gwen, Call back number: [phone] Ok to leave a message: yes Reason for call: Gwen, , is calling today to schedule a sooner appt. This agent scheduled patient for 08/23/2019, Gwen states she is unsure if patient should wait that long. Gwen states patients' symptoms are worsening and would like to see Dr. Hooper before August. Please call gwen to discuss further. Disposition of Call (choose one and remove others): Routine Message sent to the Nurse: yes documented in this encounter Plan of Treatment Upcoming Encounters Date Type Specialty Care Team Description 03/20/2022 Office Visit Neurology Vishnu Hooper MD [facility] NEUROLOGY DEPT. [place], [place] [address] (Wo rk) documented as of this encounter Visit Diagnoses Not on filedocumented in this encounter Care Teams Lead Custodian Relationship Specialty Start Date End Date Griselda Stanley MD PCP - General 07/04/10 02/03/22 documented as of this encounter
--- OUTSIDE RECORDS SUMMARY | 2022-02-26 03:59 | XMS_ITS | Encounter Summary ---
:1955 Author Organization [facility] [address] Care Team Providers Name Role Phone Griselda Stanley MD Primary Care Provider Encounter Details Date Type Department Care Team Description 08/25/2020 Telephone Neurosurgery at [facility] [place] [address] Social History Tobacco Use Types Packs/Day [...] place to sleep or slept in a penitentiary (including now)? Sex Assigned at Date Recorded Not on file documented as of this encounter Miscellaneous Notes Telephone Encounter - Harsh Montoya - 08/25/2020 2:31 PM EST Patient wants 2-10 documented in this encounter Plan of Treatment Upcoming Encounters Date Type Specialty Care Team Description 03/20/2022 Office Visit Neurology Vishnu Hooper MD [facility] NEUROLOG[facility] DEPT. [place], [place] [address] (Wo rk) documented as of this encounter Visit Diagnoses Not on filedocumented in this encounter Care Teams Woodworking Bench Carpenter Relationship Specialty Start Date End Date Griselda Stanley MD PCP - General 07/04/10 02/03/22 documented as of this encounter
--- OUTSIDE RECORDS SUMMARY | 2022-02-26 03:59 | XMS_ITS | Encounter Summary ---
:1955 Author Organization [facility] [place] [address] Care Team Providers Name Role Phone Griselda Stanley MD Primary Care Provider Encounter Details Date Type Department Care Team Description 09/21/2020 Surgery Outpatient Surgery Randall Sapp, PASQUALE CEMENT ADD'L CRANIAL Center Pattie Krueger MD NEUROSTIMULATOR ([facility] 9.93) [facility] [place] [address] [place] [address] [phone] Social History Tobacco Use Types Packs/Day Years [...] Sign Reading Time Taken Comments Blood Pressure 136/69 09/21/2020 6:31 AM EST Pulse 63 09/21/2020 6:31 AM EST Temperature 36.5 ??C (97.7 ??F) 09/21/2020 6:31 AM EST Respiratory Rate 16 09/21/2020 6:31 AM EST Oxygen Saturation 100% 09/21/2020 6:31 AM EST Inhaled Oxygen Concentration - - Weight 103 kg (227 lb) 09/21/2020 6:25 AM EST Height 182.9 cm (6') 09/21/2020 6:25 AM EST Body Mass Index 30.79 09/21/2020 6:25 AM EST documented in this encounter Discharge Instructions Patient InstructionsJayesh Chatman MD - 09/21/2020 8:44 AM EST Primary Reason for Surgery: h/o PD s/p DBS with IPG depletion requiring replacement Condition at Discharge: stable Discharge Instructions DBS IPG Change CALL YOUR PHYSICIAN IF: 1. You have a fever greater than 101 degrees Farenheit within one month of your surgery. 2. You have worsening back/neck pain, not controlled with your pain medication. 3. You begin having new trouble moving your arms or legs. 4. You develop pain, burning, urgency/frequency with urination. 5. You develop redness, swelling, or milky or watery drainage from your wound. Medications: -May resume xarelto on 09/26, 5 days after surgery. Pain control: -Take tylenol over the counter for pain. You may take 650mg every 4 hours as needed for pain. Pleasedo not take more than 4000mg daily. Activities: Take it easy for two weeks. Remember, If it hurts, don't do it. ? No heavy lifting. You may lift what is comfortable to lift with one arm. ? Avoid pushing and/or pulling objects. No washing delgado, windows, or floors, and no vacuuming or lifting heavy laundry or grocery bags. ? No shoveling, mowing lawns, climbing onto roofs or up ladders and no painting. ? Avoid prolonged periods of straight-back sitting (e.g., no more than 20 minutes at a time), without changing your position. ? No bending, twisting, or lifting. It is better to bend at the knees. Diet: ??? Eat a well-balanced diet. Fresh fruits, vegetables and fiber-containing foods are recommended. This will assist in wound healing. Recommendations: ??? Take it easy for two weeks. Remember, If it hurts, don't do it. ??? Take several slow, short walks each day for the first two weeks, and gradually increase your distance. We recommend at least 4 times a day. ??? You can go up and down stairs, but take your time and make sure your feet are securely placed oneach step. ??? You can resume sexual activity over the next several weeks. You should be positioned on your back or side. ??? Ankle pump exercises (like pressing and releasing the gas pedal) should be done several times each day until you are back to your normal activities. Wound Care: - You have absorbable sutures. - You may remove the sterile dressing 1 day after surgery. - After 2 days, you can shower per usual routine and wash the incision area gently. Pat incision drywith a clean, dry towel. ? Do not submerge the wound under water (avoid spas, pools and bathtubs) for at least 6 weeks until it is fully healed ? Do not use creams, oils, or ointments on the wound. ? Keep the wound open to air if it is not draining. Follow-up Appointments: Follow up with Dr. Sapp as needed. (X)You have absorbable sutures. They will absorb on their own. Dermabond will flake-off gradually. IMPORTANT PHONE NUMBERS: ?? During business hours, please call our office at [phone] with any questions. ?? After office hours (5PM to 8AM) and on weekends you can reach neurosurgery by calling the hospital regrinder operator at and ask for the Neurosurgery resident on-call documented in this encounter Medications at Time of Discharge Medication Sig Dispensed Refills Start Date End Date metoprolol tartrate Take 50 mg by mouth 0 021 (Lopressor) 100 mg daily. Half in the Tablet morning and half at night blood sugar diagnostic by Other route. Use 0 strips Strip as instructed carbidopa-levodopa Take 1 tablet by 150 tablet 3 08/23/2020 (Sinemet) 25-250 mg mouth 5 times daily. TabletIndications: Take at 9am, 12noon, Parkinson's disease 3pm, 6pm and 9 pm polyethylene glycol Take 17 g by mouth 14 each 0 12/30/19 20 (Miralax) 17 gram daily as needed. Powder in Packet atorvastatin (Lipitor) Take 1 tablet by 90 tablet 3 020 10 mg Tablet mouth every evening. glipiZIDE (Glucotrol) 5 Take 5 mg by mouth 0 mg Tablet daily. entacapone (Comtan) 200 Take 1 tablet by 90 tablet 5 2019 mg Tablet mouth 3 times daily. Take with each dose of carbidopa-levodopa. Aware of previous intolerance because nausea acetaminophen (TYLENOL) Take 1,000 mg by 0 500 mg Tablet mouth every 6 hours as needed for Pain. cholecalciferol, Take 1,000 Units by 0 Vitamin D3, 1,000 unit mouth daily. Tablet omeprazole (PRILOSEC) Take 40 mg by mouth 0 04/02 40 mg Capsule, Delayed daily as needed. 1 Release(E.C.) capsule three times weekly rivaroxaban (Xarelto) Take 20 mg by mouth 0 12/23/2020 20 mg Tablet daily. Miconazole Nitrate Apply topically 2 0 12/30/2020 (Fungoid Tincture) 2 % times daily. Tincture dilTIAZem XR (Dilacor Take 1 capsule by 0 12/29/2 020 12/27/2020 XR) 240 mg mouth daily. Capsule,Degradable Cnt Release metoprolol succinate XL Take 3 tablets by 30 tablet 12 12/2912/27/2020 (Toprol-XL) 50 mg mouth daily. Tablet Sustained Release 24 hr mirabegron 25 mg Tablet Take 25 mg by mouth 0 12/30/2020 Sustained Release 24 hr daily. DULoxetine (CYMBALTA) Take 60 mg by mouth 2 0 12/30/2020 30 mg Capsule, Delayed times daily. Release(E.C.) melatonin 3 mg Tablet Take 6 mg by mouth 0 12/30/2020 nightly as needed. metFORMIN (GLUCOPHAGE) Take 1,000 mg by 0 12/30/2020 500 mg tablet mouth 2 times daily (with meals). documented as of this encounter Progress Notes Malathi Palacio RN - 09/21/2020 9:36 AM EST Discharge instructions and medications reviewed with patient and . All questions answered and written copy sent home with patient. Patient ambulated to car for discharge accompanied by [facility] staff member. Pt tolerating oral fluids prior to discharge. Maida Denney RN - 09/20/2020 1:59 PM EST During this call the patient was questioned regarding travel outside of [facility], fever, cough, SOB or other illness in the last 14 days. Patient also questioned regarding any exposure to a COVID positive person, a person awaiting results from testing or a person in quarantine.Patient also denies attending a gathering of 50 people indoors or 100 people outdoors where a mask was unable to beworn.Patient denies any positive responses to the above questions for themselves or their escort forthe day of procedure. Patient informed of procedure to be followed upon arrival to the [facility]. That being, COVID questions will be asked again, temperature will be taken, patient and caregiver/jitney driver will be given a mask to wear the entire time they are in the [facility] building. Hawa Garcia RN - 2020 2:52 PM EST During this call the patient was questioned regarding travel outside of [facility], fever, cough, SOB or other illness in the last 14 days. Patient also questioned regarding any exposure to a COVID positive person, a person awaiting results from testing or a person in quarantine.Patient also denies attending a gathering of 50 people indoors or 100 people outdoors where a mask was unable to beworn.Patient denies any positive responses to the above questions for themselves or their escort forthe day of procedure. Patient informed of procedure to be followed upon arrival to the [facility]. That being, COVID questions will be asked again, temperature will be taken, patient and caregiver/jitney driver will be given a mask to wear the entire time they are in the [facility] building. documented in this encounter H&P Notes Jayesh Chatman MD - 09/21/2020 7:29 AM EST Pre-Op Neurosurgery 24-Hour Update Timbo Su was seen and examined in SDP with at bedside. No interval events or changes in health status since preoperative clinic visit (see EPIC note dated 08/23/20 by Vishnu Otto). Denies angina/dyspnea/fevers or malaise within the last 14 days. All questions were answered. Stable for surgery as scheduled. HPI: 65M on xarelto for afib (last taken 3 days ago) with PD s/p DBS with L IPG needing IPG replacement due to battery depletion. Exam: NAD RRR CTAB Neuro: Intact Plan: -Proceed with surgery as planned (L IPG change). Jayesh Chatman MD 09/21/20 7:29 AM documented in this encounter Miscellaneous Notes Op Note - Randall Sapp MD - 09/21/2020 8:03 AM EST [facility] Operative Note Patient Name: Timbo Su : [id number] MR#: [id number] Case Date: 09/21/2020 Surgeon: Surgeon(s) and Role: * Randall Sapp MD - Primary * Jayesh Chatman MD - Resident Preoperative diagnosis: PD Postoperative diagnosis: PD Procedure: Removal and replacement of left DBS IPG with connection to TWO electrode arrays Anesthesia: General Estimated Blood Loss: 10cc Specimens removed during surgery: None Drains: None Surgical Closure: Primary Closure - skin incision is completely closed without any wires, kayla, drains or other devices Disposition: awakened from anesthesia, extubated and taken to the recovery room in a stable condition, having suffered no apparent untoward event. Condition: doing well without problems (Please see the Surgical Encounter Summary for any Implant and Specimen details pertinent to this patient.) HPI/Surgical Indications: 65 yo man with PD s/p DBS placement, now with IPG depleted and requiring replacement. Procedure Description: The patient was brought to the operating room and transferred from the stretcher to the operating room table. He was monitored by the anesthesia team. Following induction of general anesthesia, he was intubated by the anesthesia team. He was then positioned supine with his head resting on a gel donut,turned to the right side. All pressure points were well padded. Pre-operative antibiotics were given. The prior IPG incision was located on the left chest and marked. The area was then prepped and draped in the usual sterile fashion. A [facility] mandated hard- stop time out was then performed, confirming the patient's name, procedure, laterality, and imaging. We then began by injecting local anesthetic, 0.5% marcaine with epinephrine, along our planned incision. We then incised along the old incision using a #10 blade. Hemostasis was obtained via bipolar cautery. We then used blunt dissection to dissectin the pocket until we encountered the capsule around the previous battery. The capsule was opened. We then removed the depleted battery and using the included [email or web address] screwdriver, removed the electrode extensions from the old battery, which was then removed from the field. This was then connected to a new [employer] PC battery. The leads were secured to the battery using the included screwdriver. Thepocket was copiously irrigated with irrigation and vancomycin powder was placed in the pocket.. The e xcess wire was coiled behind the battery and the battery was replaced in to the pocket. It was tested and found to be worked correctly with appropriate impedances. The pocket was closed using interrupted 3-0 vicryl sutures, followed by a layer of deep dermal 3-0 vicryl sutures, and finally, subcutaneous running 4-0 vicryl rapide, followed by dermabond. A sterile dressing was applied over the incision. The patient was then allowed to awaken from anesthesia and was successfully extubated. He was awake, alert, and following commands in all extremities. He was then taken to the recovery room. All sponge, needle, and instrument counts were correct. Infection Bundle used? N/A Attestation: Case Date: 09/21/2020 I was present and I participated during the entire procedure (does not need to include opening and closing). Randall Sapp MD 09/21/2020 documented in this encounter Plan of Treatment Upcoming Encounters Date Type Specialty Care Team Description 03/20/2022 Office Visit Neurology Vishnu Hooper MD [facility] NEUROLOGY DEPT. [place], [place] [address] (Wo rk) documented as of this encounter Procedures Procedure Name Priority Date/Time Associated Diagnosis Comme nts MODIFIER MOVEMENT DISORDER 09/21/2020 7:41 AM Parkinso n's disease EST MODIFIER,NEUROSTIMULATOR,B 09/21/2020 7:41 AM Parkinso n's disease ATTERY EXCHANGE EST PLACEMENT ADD'L CRANIAL 09/21/2020 7:41 AM Parkinson's disease NEUROSTIMULATOR ([facility] EST 9.93) PLACEMENT ADD'L CRANIAL Routine 09/21/2020 6:14 AM Parkinson's disease NEUROSTIMULATOR EST documented in this encounter Visit Diagnoses Diagnosis Parkinson's disease - Primary Paralysis agitans Parkinson's disease Paralysis agitans documented in this encounter Admitting Diagnoses Diagnosis Parkinson's disease Paralysis agitans documented in this encounter Administered Medications Inactive Administered Medications - up to 3 most recent administrations Medication Order MAR Action Action Date Dose Rate Site lactated ringers infusion Restarted 09/21/2020 8:07 AM EST 1,000 mL, at 100 mL/hr, Intravenous, CONTINUOUS, Starting on Sat09/21/20 at 0645, Until Sat09/21/20 at 0936, Day of Surgery (Day of Procedure) New Bag 09/21/2020 6:52 AM EST 1,000 mLs 100 mL/hr lidocaine (Xylocaine) 1% (10 Given 09/21/2020 8:03 AM EST 7 mLs 19- Surgical Site mg/mL) injection ONCE PRN, Starting on Sat09/21/20 at 0803, Until Sat09/21/20 at 1137, Intra-Operative (Intra-Procedure), Routine vancomycin (Vancocin) Given 09/21/2020 8:11 AM EST 500 mg 19- Surgical Site injection ONCE PRN, Starting on Sat09/21/20 at 0811, Until Sat09/21/20 at 1137, Intra-Operative (Intra-Procedure), Routine vancomycin in 0.9% sodium Chloride New Bag 09/21/2020 6:52 AM EST 1,000 mg (Vancocin) 1 gram/200 mL infusion 1 dose, Starting on Sat09/21/20 at 0622, Until Sat09/21/20 at 0652, ZEN GARCIA: cabinet override documented in this encounter Active and Recently Administered Medications Times are shown in EST. Continuous Medication Order 09/19/2020 09/20/2020 09/21/2020 lactated ringers infusion (CANCELED) 0652 (New Bag - Provider: Yolis Alonso RN)0806 (Paused - Provider: Julián Le RN - Comment: Switch to gravity)0807 (Restarted - Provider: Julián Le, JANNETTE)0821 (Anesthesia Volume Adjustment - Provider: Julián Le, RN) 1,000 mL, at 100 mL/hr, Intravenous, CON TINUOUS, Starting Sat09/21/20 at 0645, Until Sat09/21/20 at 0936, Day of Surgery (Day of Procedure) 0836 (Anesthesia Volume Adjustment - Provider: Julián Le, RN) PRN Medication Order 09/19/2020 09/20/2020 09/21/2020 lidocaine (Xylocaine) 1% (10 mg/mL) injection (CANCELED) 0803 (Given - Provider: Randall Sapp MD) ONCE PRN, Starting Sat09/21/20 at 0803, Until Sat09/21/20 at 1137, Intra- Operative (Intra-Procedure), Routine vancomycin (Vancocin) injection (CANCELED) 810 (Given - Provider: Randall Sapp MD - Comment: SPRINKLED INTO SURGICAL SITE PRIOR TO CLOSING.) ONCE PRN, Starting Sat09/21/20 at 0811, Until Sat09/21/20 at 1137, Intra- Operative (Intra-Procedure), Routine No Frequency Medication Order 09/19/2020 09/20/2020 09/21/2020 vancomycin in 0.9% sodium Chloride (Vanc ocin) 1 gram/200 mL infusion (COMPLETED) 651 (New Bag - Prov ider: Yolis Alonso, JANNETTE) 1 dose, Starting Sat09/21/20 at 0622, Un til Sat09/21/20 at 0652, ZEN GARCIA: cabinet override documented in this encounter Care Teams Assistant Golf Course Superintendent Relationship Specialty Start Date End Date Griselda Stanley MD PCP - General 07/04/10 02/03/22 documented as of this encounter
--- OUTSIDE RECORDS SUMMARY | 2022-02-26 03:59 | XMS_ITS | Encounter Summary ---
:1955 [place] [address] Care Team Providers Name Role Phone Griselda Stanley MD Primary Care Provider Encounter Details Date Type Department Care Team Description 09/21/2020 Hospital Encounter Outpatient Surgery Randall Sapp Parkinson's disease; Center Pattie Ribeiro MD Parkinson's disease [facility] [phone] Social History Tobacco Use Types Packs/Day Years [...] Sign Reading Time Taken Comments Blood Pressure 144/70 09/21/2020 9:00 AM EST Pulse 62 09/21/2020 9:00 AM EST Temperature 36.1 ??C (97 ??F) 09/21/2020 8:46 AM EST Respiratory Rate 16 09/21/2020 9:00 AM EST Oxygen Saturation 94% 09/21/2020 9:00 AM EST Inhaled Oxygen Concentration - - [...] business hours, please call our office at [phone] with any questions. ?? After office hours (5PM to 8AM) and on weekends you can reach neurosurgery by calling the hospital calender let off operator at and ask for the Neurosurgery [...] patient was questioned regarding travel outside of [facility], fever, cough, SOB or other illness [...] again, temperature will be taken, patient and caregiver/lyft driver will be given a mask to wear the entire time they are in the [facility] building. Hawa Garcia RN - 2020 2:52 PM EST During this call the patient was questioned regarding travel outside of [facility], fever, cough, SOB or other illness [...] again, temperature will be taken, patient and caregiver/lyft driver will be given a mask to [...] Sapp MD - 09/21/2020 8:03 AM EST [facility] Operative Note Patient Name: Timbo Su : [id number] MR#: [id number] Case Date: 09/21/2020 Surgeon: Surgeon(s) and Role: [...] draped in the usual sterile fashion. A [facility] mandated hard- stop time out was then [...] the depleted battery and using the included [employer] screwdriver, removed the electrode extensions from the old battery, which was then removed from the field. This was then connected to a new [employer] PC battery. The leads were secured to [...] 03/20/2022 Office Visit Neurology Vishnu Hooper MD [facility] NEUROLOGY DEPT. [place], [place] [address] (Wo rk) documented as of [...] Diagnosis Parkinson's disease - Primary Paralysis agitans documented in this encounter Admitting [...] 6:52 AM EST 1,000 mLs 100 mL/hr vancomycin in 0.9% sodium Chloride New Bag [...] Yolis Alonso RN)0806 (Paused - Provider: Julián Le, JANNETTE - Comment: Switch to gravity)0807 (Restarted - [...] Operative (Intra-Procedure), Routine vancomycin (Vancocin) injection (CANCELED) 0811 (Given - Provider: Randall Sapp MD - Comment: SPRINKLED INTO SURGICAL SITE PRIOR TO CLOSING.) ONCE PRN, Starting Sat09/21/20 at 0811, Until Sat09/21/20 at 1137, Intra- Operative (Intra-Procedure), Routine No Frequency Medication Order 09/19/2020 09/20/2020 09/21/2020 vancomycin in 0.9% sodium Chloride (Vanc ocin) 1 gram/200 mL infusion (COMPLETED) 0652 (New Bag - Prov ider: Yolis Alonso RN) 1 dose, Starting Sat09/21/20 at 0622, Un til Sat09/21/20 at 0652, ZEN GARCIA: cabinet override documented in this encounter Care Teams Telephone Plant Power Operator Relationship Specialty Start Date End Date Griselda Stanley MD PCP - General 07/04/10 02/03/22 documented as of this encounter
--- OUTSIDE RECORDS SUMMARY | 2022-02-26 03:59 | XMS_ITS | Encounter Summary ---
:1955 Author Organization [place] [address] Care Team Providers Name Role Phone Griselda Stanley MD Primary Care Provider Reason for Visit Reason Comments Follow-up Encounter Details Date Type Department Care Team Description 08/23/2020 Office Visit Neurology at [facility] [place] Vishnu Hooper MD Parkinson's disease [address]ly [facility] [place] [address] NEUROLOGY DEPT. [phone] [place], [place] [address] (Wo rk) Social History Tobacco [...] Sign Reading Time Taken Comments Blood Pressure 148/118 08/23/2020 3:05 PM left arm, rig ht arm EST 157/82 Pulse 62 08/23/2020 3:05 PM EST Temperature 37 ??C (98.6 ??F) 08/23/2020 3:05 PM EST Respiratory Rate - - Oxygen Saturation 99% 08/23/2020 3:05 PM EST Inhaled Oxygen - - Concentration Weight 103 kg (227 lb) 08/23/2020 3:05 PM EST Height 177.8 cm (5' 10) 08/23/2020 3:05 PM EST Body Mass Index 32.57 08/23/2020 3:05 PM EST documented in this encounter Patient Instructions Patient InstructionsVishnu Hooper MD - 08/23/2020 3:00 PM EST You were seen in follow up for worsening symptoms of Parkinson's. You battery needs to be replaced. Would consider placement of a PERCEPT battery. Make sure you discuss with Dr. Sapp the pain in the pocket. documented in this encounter Progress Notes Vishnu Hooper MD - 08/23/2020 3:00 PM EST Images from the original note were not included. [facility] Follow-up Note Patient ID: Timbo Su is a 64 y.o. year old male who presents in follow-up in the company of his Gwen, who as needed for the provision of collateral history in person. Subjective Patient Active Problem List Diagnosis ??? Parkinson's disease Added automatically from request for surgery [id number] ??? Dysphagia ??? Atrial fibrillation ??? Viral [...] Ankle fracture, left ??? Fatigue Interval history: has lost ground since I saw him briefly in December to turn off the DBS for his EEG when he was hospitalized. He has some good days and bad days. He does not have as many hallucinations but has dreams. His Gwen has noted that he can suddenly fall asleep. In June, he complained of numbness and tingling of the hands. Her PCP started him on b12 and that seemed to have helped a little. Review of Systems: [ ] Review of Systems otherwise negative. Adverse reactions/allergies: No Known Allergies Medications at start of encounter: Outpatient Medications Prior to Visit Medication Sig Dispense Refill ??? rivaroxaban (Xarelto) 20 mg Tablet Take 20 mg by mouth daily. ??? Miconazole Nitrate (Fungoid Tincture) 2 % Tincture Apply topically 2 times daily. ??? blood sugar diagnostic strips Strip by Other route. Use as instructed ??? dilTIAZem XR (Dilacor XR) 240 mg Capsule,Degradable Cnt Release Take 1 capsule by mouth daily. ??? metoprolol succinate XL (Toprol-XL) 50 mg Tablet Sustained Release 24 hr Take 3 tablets by mouthdaily. 30 tablet 12 ??? polyethylene glycol (Miralax) 17 gram Powder in Packet Take 17 g by mouth daily as needed. 14 each 0 ??? atorvastatin (Lipitor) 10 mg Tablet Take 1 tablet by mouth every evening. 90 tablet 3 ??? apixaban (Eliquis) 5 mg Tablet Take 1 tablet by mouth 2 times daily. 14 tablet 0 ??? glipiZIDE (Glucotrol) 5 mg Tablet Take 5 mg by mouth 2 times daily (before meals). ??? entacapone (Comtan) 200 mg Tablet Take 1 tablet by mouth 3 times daily. Take with each dose of carbidopa-levodopa. Aware of previous intolerance because nausea 90 tablet 5 ??? DULoxetine (CYMBALTA) 30 mg Capsule, Delayed Release(E.C.) Take 30 mg by mouth 3 times daily. ??? cholecalciferol, Vitamin D3, 1,000 unit Tablet Take 1,000 Units by mouth daily. ??? melatonin 3 mg Tablet Take 6 mg by mouth nightly as needed. ??? omeprazole (PRILOSEC) 40 mg Capsule, Delayed Release(E.C.) Take 40 mg by mouth daily as needed. ??? metFORMIN (GLUCOPHAGE) 500 mg tablet Take 1,000 mg by mouth 2 times daily (with meals). ??? carbidopa-levodopa (SINEMET) 25-250 mg per tablet Take 1 tablet by mouth 4 times daily. ??? mirabegron 25 mg Tablet Sustained Release 24 hr Take 25 mg by mouth daily. ??? acetaminophen (TYLENOL) 500 mg Tablet Take 1,000 mg by mouth every 6 hours as needed for Pain. No facility-administered medications prior to visit. Family and Social History: Interval changes: No family history on file. No family status information on file. Social History Socioeconomic History ??? Marital status: Spouse name: None ??? Number of children: None ??? Years of education: None ??? Highest education level: None Occupational History ??? None Social Needs ??? Financial resource strain: None ??? Food insecurity Worry: None Inability: None ??? Transportation needs Medical: None Non-medical: None Tobacco Use ??? Smoking status: Former Smoker Types: Cigarettes Quit date: 12/10/1977 Years since quittin.7 ??? Smokeless tobacco: Never Used Substance and Sexual Activity ??? Alcohol use: No ??? Drug use: No ??? Sexual activity: None Comment: Deferred Lifestyle ??? Physical activity Days per week: None Minutes per session: None ??? Stress: None Relationships ??? Social connections Talks on phone: None Gets together: None Attends caodaism service: None Active member of club or organization: None Attends meetings of clubs or organizations: None Relationship status: None ??? Intimate partner violence Fear of current or ex partner: None Emotionally abused: None Physically abused: None Forced sexual activity: None Other Topics Concern ??? None Social History Narrative Lived in [place], moved to [place] 1980. Objective: Vitals: 08/23/20 1505 BP: (!) 148/118 BP Location (NBP): Left arm Patient Position: Sitting BP Cuff Sizes: Adult (25-34 cm) Pulse: 62 Temp: 37 ??C (98.6 ??F) SpO2: 99% Weight: 103 kg (227 lb) Height: 177.8 cm (5' 10) Assessment and Plan: No problem-specific Assessment & Plan notes found for this encounter. Patient instructions Patient Instructions You were seen in follow up for worsening symptoms of Parkinson's. You battery needs to be replaced. Would consider placement of a PERCEPT battery. Make sure you discuss with Dr. Sapp the pain in the pocket. Orders Orders Placed This Encounter Procedures ??? Vitamin B12 Standing Status: Future Standing Expiration Date: 08/24/2021 ??? Methylmalonic acid, serum Standing Status: Future Standing Expiration Date: 08/24/2021 Medication changes: Medication ordered or changed during this encounter, will not show discontinued medications Medications ??? carbidopa-levodopa (Sinemet) 25-250 mg Tablet Sig: Take 1 tablet by mouth 5 times daily. Take at 9am, 12noon, 3pm, 6pm and 9 pm Dispense: 150 tablet Refill: 3 I have changed Timbo Luca [employer] Faith's carbidopa-levodopa. I am also having him maintain his metFORMIN, omeprazole, melatonin, cholecalciferol (Vitamin D3), acetaminophen, DULoxetine DR, entacapone, glipiZIDE, mirabegron, dilTIAZem XR, metoprolol succinate XL, polyethylene glycoL, atorvastatin, rivaroxaban, Fungoid Tincture, and blood sugar diagnostic strips. Vishnu Hooper MD PhD [facility] Neurology documented in this encounter Miscellaneous Notes Assessment & Plan Note - Vishnu Hooper MD - 09/06/2020 8:52 AM ESTAssociated Problem(s): Parkinson's disease Battery at [facility] which explains his worsening symptoms. Dr. Sapp should address the pain that he ishaving in the pocket. documented in this encounter Plan of Treatment Upcoming Encounters Date Type Specialty Care Team Description 03/20/2022 Office Visit Neurology Vishnu Hooper MD [facility] NEUROLOGY DEPT. [place], [place] [address] (Wo rk) documented as of this encounter Visit Diagnoses Diagnosis Parkinson's disease Paralysis agitans documented in this encounter Care Teams Final Inspector Relationship Specialty Start Date End Date Griselda Stanley MD PCP - General 07/04/10 02/03/22 documented as of this encounter
--- OUTSIDE RECORDS SUMMARY | 2022-02-26 03:59 | XMS_ITS | Encounter Summary ---
:1955 Author Organization [facility] [place] [address] Care Team Providers Name Role Phone Griselda Stanley MD Primary Care Provider Reason for Visit Reason Comments Extremity Weakness Auth/Cert Specialty Diagnoses / Procedures Referred By Contact Refer red To Contact Diagnoses Frailty UTI (urinary tract infection) Referral ID Status Reason Start Date Expiration Date Visits Requ ested Visits Authorized [id number] 1 1 Encounter Details Date Type Department Care Team Description 12/20/2020 - Hospital Encounter [address] [facility] Domingo Aguilera MD [facility] [place] [address] UTI (urinary tract infection) (Primary D x); 12/23/2020 [facility] Julián Vasquez MD [facility] [place] [address] Frailty; [facility] Sergei Nice MD [facility] [place] [address] Acute cystitis without hematuria; [facility] Renny Reyes MD [facility] [place] [address] [place] [address] Social History Tobacco Use Types Packs/Day Years [...] Sign Reading Time Taken Comments Blood Pressure 136/77 12/23/2020 11:53 AM EDT Pulse 84 12/22/2020 10:04 AM EDT Temperature 37 ??C (98.6 ??F) 12/23/2020 11:53 AM EDT Respiratory Rate 20 12/23/2020 11:53 AM EDT Oxygen Saturation 94% 12/23/2020 11:53 AM EDT Inhaled Oxygen Concentration - - Weight 107.5 kg (236 lb 15.9 oz) 12/22/2020 2:02 AM EDT Height 182.9 cm (6' 0.01) 12/22/2020 2:02 AM EDT Body Mass Index 32.14 12/22/2020 2:02 AM EDT documented in this encounter Discharge Summaries Renny Reyes MD - 12/22/2020 2:01 PM EDT Inpatient - Discharge Summary Patient Name: Timbo Su Patient Age: 65 y.o. Birthdate: 1955 Admit date: 12/20/2020 Discharge date and time: 12/23/2020 Attending Physician: No att. providers found Follow Up recommendations for providers: - Marcell is being discharged on a course of Cefpodoxime to treat a UTI. He should take 200 mg PO BID through December 26. Discharge Diagnoses (Hospital Problems) and Secondary Diagnoses (Chronic Problems): Active Hospital Problems Diagnosis ??? Encephalopathy, toxic ??? UTI (urinary tract infection) ??? Frailty ??? Parkinson's disease Added automatically from request for surgery [id number] ??? S/P deep brain stimulator placement ??? Mixed anxiety and depressive disorder ??? Sensory ataxia ??? Hypertension ??? Hyperlipidemia ??? Diabetes mellitus With mild sensory polyneuropathy Resolved Hospital Problems No resolved problems to display. Active Non-Hospital Problems Diagnosis ??? Dysphagia ??? Atrial fibrillation ??? Viral meningitis ??? Diabetic polyneuropathy ??? Orthostatic hypotension ??? Carpal tunnel syndrome, bilateral ??? Sciatica of left side ??? Abnormal LFTs (liver function tests) ??? Cholelithiasis ??? REM behavioral disorder ??? Ankle fracture, left ??? Fatigue Operations/Major Procedures: None History of Presentation: Imaging in the ED (CT Head, C-spine and XR Pelvis) negative for fracture or other acute abnormality.He was diagnosed with shingles two weeks ago and completed his course of therapy one week ago. The patient's reports that she noticed the patient becoming weaker while he was taking Acyclovir, andthere was a noticeable progression in weakness over the weekend. ?? Prior to his progressive decline, the patient ambulated carefully around the house, had to start using a walker approximately one week prior to presentation, and then over the two days prior to presentation, was too weak to walk at all. Additionally his notes increasing hallucinations over the past 2 days. She denies fevers and chills. States she was checking his temperature daily and it was never higher than 99 degrees Fahrenheit. His also notes that he has demonstrated increasing frequency of tonic clonic jerking over the past two weeks. Prior to this it was well controlled by his deep brain stimulator. ?? In the ED, labs were notable for WBC 10, HgB 12.2, Plt 198, Creatinine 1.01 (Baseline ~0.6), HepaticFunction panel unremarkable UA unremarkable. The patient's lactate was normal upon arrival, uptrended to 3.7, and has normalized to 1.9. Hospital Course: UTI Acute toxic metabolic encephalopathy The patient received 2 doses of Ceftriaxone with notable improvement in his mental status. Although he had a recent diagnosis of herpes zoster, he underwent a full course of treatment with Acyclovir. He was evaluated by Neurology who felt there was no clear suspicion for myelopathy or encephalitis andLP was deferred. Encephalopathy likely due to already impaired PD dementia with acute infection. On the day prior to discharge, 200 mg Cefpodoxime BID was started with plan to treat for a total course of 7 days. Parkinson's disease Home medication regimen was continued. He has follow up in two weeks with Dr. Hooper. Discharge Conditions/Prognosis: Patient is being discharged to rehab due to physical deconditioning. He is hemodynamically stable, without an oxygen requirement, tolerating a stable PO regimen. Discharge to: [facility] Discharge Medications: Your Medications New Medications Dose Details cefpodoxime 200 mg Tab Commonly known as: Vantin Take 1 tablet by mouth 2 times daily for 4 days. 200 mg Quantity: 8 tablet Refills: 0 Continued medications, unchanged Dose Details acetaminophen 500 mg Tab Commonly known as: Tylenol Take 1,000 mg by mouth every 6 hours as needed for Pain. 1,000 mg Refills: 0 atorvastatin 10 mg Tab Commonly known as: Lipitor Take 1 tablet by mouth every evening. 10 mg Quantity: 90 tablet Refills: 3 blood sugar diagnostic strips Strp by Other route. Use as instructed Refills: 0 carbidopa-levodopa 25-250 mg Tab Commonly known as: Sinemet Take 1 tablet by mouth 5 times daily. Take at 9am, 12noon, 3pm, 6pm and 9 pm 1 tablet Quantity: 150 tablet Refills: 3 cholecalciferol (Vitamin D3) 1,000 unit Tab Commonly known as: Vitamin D3 Take 1,000 Units by mouth daily. 1,000 Units Refills: 0 dilTIAZem XR 240 mg Cdcr Commonly known as: Dilacor XR Take 1 capsule by mouth daily. 240 mg Refills: [address] 30 mg Cpdr Commonly known as: Cymbalta Take 30 mg by mouth 3 times daily. 30 mg Refills: 0 entacapone 200 mg Tab Commonly known as: Comtan Take 1 tablet by mouth 3 times daily. Take with each dose of carbidopa-levodopa. Aware of previous intolerance because nausea 200 mg Quantity: 90 tablet Refills: 5 Fungoid Tincture 2 % Tinc Apply topically 2 times daily. Generic drug: Miconazole Nitrate Refills: 0 glipiZIDE 5 mg Tab Commonly known as: Glucotrol Take 5 mg by mouth 2 times daily (before meals). 5 mg Refills: 0 melatonin 3 mg Tab Take 6 mg by mouth nightly as needed. 6 mg Refills: 0 metFORMIN 500 mg Tab Commonly known as: Glucophage Take 1,000 mg by mouth 2 times daily (with meals). 1,000 mg Refills: 0 metoprolol succinate XL 50 mg Tablet sr Commonly known as: Toprol-XL Take 3 tablets by mouth daily. 150 mg Quantity: 30 tablet Refills: 12 mirabegron 25 mg Tablet sr Take 25 mg by mouth daily. 25 mg Refills: 0 omeprazole 40 mg Cpdr Commonly known as: PriLOSEC Take 40 mg by mouth daily as needed. 40 mg Refills: 0 polyethylene glycoL 17 gram Pwpk Commonly known as: Miralax Take 17 g by mouth daily as needed. 17 g Quantity: 14 each Refills: 0 STOPPED Medications rivaroxaban 20 mg Tab Commonly known as: Xarelto Updated Allergies/ADRs: No Known Allergies Instructions Given to Patient at Discharge: Patient Instructions Patient Instructions on Discharge to Home Why you were hospitalized - urinary tract infection Call your doctor or seek medical attention if you develop the following - chest pain, shortness of breath, feeling dizzy upon standing, passing out, diarrhea, constipation lasting longer than 2 days, fevers (temperature over 100.3), chills, abdominal pain, vomiting, difficulty or discomfort when urinating, bloody or black bowel movements, or any other acute or concerning symptom. Changes in Your Medications: New Medications: Cefpodoxime 200 mg twice a day until 12/26/20 Follow-up Appointments Future Appointments Date Time Provider Department Center 12/30/2020 10:00 AM Vishnu Hooper MD [facility] NEURO [facility] Your Inpatient Medical Team at [facility] Name(s) of your inpatient provider(s): [facility] Medicine Purple Team, pager [phone] For questions regarding issues relating to your hospitalization on the Hospital Medicine Service, please contact your inpatient physician through the [facility] V Belt Builder [phone]. Issues after hours and on weekends will be handled by the Hospitalist staff on-call. Your Primary Care Provider Griselda Stanley MD [phone] General Instructions None Future Appointments and Orders Future Appointments and Orders Future Appointments Provider Department Dept Phone 12/30/2020 10:00 AM Vishnu Hooper MD Neurology at [facility] Arrive at: Rewrite Editor Area [phone] Discharge References/Attachments: Discharge References/Attachments None Inpatient Provider Contact Information: Hospital Medicine Purple Team, pager [phone] Electronically Signed By: RENNY REYES MD 12/23/2020 documented in this encounter Discharge Instructions Patient InstructionsJenny Zhou MD - 12/22/2020 1:53 PM EDT Patient Instructions on Discharge to Home Why you were hospitalized - urinary tract infection Call your doctor or seek medical attention if you develop the following - chest pain, shortness of breath, feeling dizzy upon standing, passing out, diarrhea, constipation lasting longer than 2 days, fevers (temperature over 100.3), chills, abdominal pain, vomiting, difficulty or discomfort when urinating, bloody or black bowel movements, or any other acute or concerning symptom. Changes in Your Medications: New Medications: Cefpodoxime 200 mg twice a day until 12/26/20 Follow-up Appointments Future Appointments Date Time Provider Department Center 12/30/2020 10:00 AM Vishnu Hooper MD [facility] NEURO [facility] Your Inpatient Medical Team at [facility] Name(s) of your inpatient provider(s): Hospital Medicine Purple Team, pager [phone] For questions regarding issues relating to your hospitalization on the Hospital Medicine Service, please contact your inpatient physician through the [facility] V Belt Builder [phone]. Issues after hours and on weekends will be handled by the Hospitalist staff on-call. Your Primary Care Provider Griselda Stanley MD [phone] documented in this encounter Medications at Time of Discharge Medication Sig Dispensed Refills Start Date End Date metoprolol tartrate Take 50 mg by mouth 0 021 (Lopressor) 100 mg daily. Half in the Tablet morning and half at night DULoxetine DR Take 60 mg by mouth 2 0 12/01/2020 (Cymbalta) 60 mg times daily. Capsule, Delayed Release(E.C.) metFORMIN (GLUCOPHAGE) Take 1,000 mg by 0 021 1,000 mg Tablet mouth 2 times daily. metoprolol succinate XL Take 1 tablet by 30 tablet 12 2020 (Toprol-XL) 50 mg mouth daily. Tablet Sustained Release 24 hr blood sugar diagnostic [...] needed. 1 Release(E.C.) capsule three times weekly cefpodoxime (Vantin) Take 1 tablet by 8 tablet 0 1 12/27/2020 200 mg Tablet mouth 2 times daily for 4 days. Miconazole Nitrate Apply topically 2 0 12/30/2020 (Fungoid Tincture) 2 % times daily. Tincture dilTIAZem XR (Dilacor Take 1 capsule by 0 2 020 12/27/2020 XR) 240 mg mouth daily. [...] documented as of this encounter Progress Notes Renny Reyes MD - 12/23/2020 1:59 PM EDT Hospital Medicine - Attending Day of Discharge Documentation Discharge diagnosis Active Hospital Problems Diagnosis ??? Encephalopathy, toxic ??? UTI (urinary tract infection) ??? Frailty ??? Parkinson's disease ??? S/P deep brain stimulator placement ??? Mixed anxiety and depressive disorder ??? Sensory ataxia ??? Hypertension ??? Hyperlipidemia ??? Diabetes mellitus Resolved Hospital Problems No resolved problems to display. Secondary Issues Active Non-Hospital Problems Diagnosis ??? Dysphagia ??? Atrial fibrillation ??? Viral meningitis ??? Diabetic polyneuropathy ??? Orthostatic hypotension ??? Carpal tunnel syndrome, bilateral ??? Sciatica of left side ??? Abnormal LFTs (liver function tests) ??? Cholelithiasis ??? REM behavioral disorder ??? Ankle fracture, left ??? Fatigue I have personally seen and examined the patient and they are ready for discharge. I spent >30 minutes (Day of Discharge Code 97636) involved in the final examination of the patient, discussion of the hospital stay, instructions for continuing care to all relevant caregivers, and preparation of discharge records, prescriptions and referral forms. Plans ? Discharge to Swing ? Follow-up scheduled with Neurology ? Please see the Discharge Summary for complete details of any medication changes and additional plans. Jenny Alonso RN - 12/23/2020 1:57 PM EDT Pt was discharged to [facility] by ambulance at 1355. AVS given to patient and education complete. All belongings taken with patient. Safety maintained. Elian Hoang MSW - 12/23/2020 1:26 PM EDT Chart reviewed. Discussed patients daily goals, and plan for potential discharge during IDR. Discussed and provided education around [place] Advance Directives. Provided booklet and forms. Patient reiterated multiple times and identified his Gwen Palacios as the individual who he wants to be his DPOA-H Patient has full capacity to appoint and chose Gwen Su (Spouse) as his DPOA-H. Patient completed his [place] AD and chose and appointed his Gwen Su (Spouse) as his DPOA-H. Original and copy provided to the patient. [place] AD scanned into [employer]. Following for TEAM LEAD support, including coping through illness process and resource needs, through disposition. Elian Hoang TEAM LEAD Pager #[phone] Extension [phone] Michelle Rojas RN - 12/23/2020 12:57 PM EDT CARE MANAGEMENT FINAL DISCHARGE NOTE Chart reviewed, care reviewed with primary team and at interdisciplinary rounds. Patient is medically ready for discharge 12/23/20. Needs for Transition of Care Plan for discharge is: Rehab Agency Referrals: 1) [facility] ([facility]) ([facility]) [address] [place] [address] PHONE: [phone] FAX: [phone] Patient spouse accepts bed offer 2) [facility] ([facility]) ([facility]) [address] [place] [address] PHONE: [phone] FAX: [phone] 3) [facility] PHONE: [phone] FAX: [phone] Nurse to Nurse report: [phone] [address] [place] [address] Transportation: Ambulance transportation is medically necessary at discharge related to weakness, Parkinson's, confusion. I have discussed Medicare/Private Insurance reimbursement guidelines for ambulance transport. Patient spouse, Maci Sharlene, verbalizes understanding of their potential financial obligation and agree with ambulance transport. medical information specialist, confirmed [facility] ambulance transport for today, 12/23/20@1330 via [facility] transport from [facility], [facility], room 133B to [facility]. Patient is COVID 19 negative - 12/21/20. SW completing advance directives for patient at request of [facility]. Marble Mechanic Helper spoke with spouse regarding patient Entacapone and fact that it is not on formulary at their facility. Spouse, Gwen to drop off to [facility]. DME Needed at DC: None indicated, attending Rehab Patient is insured through: Primary Insurance: MEDICARE Payor: MEDICARE / Plan: MEDICARE PART A & B / Product Type: *No Product type* / Secondary Insurance: [employer] MEDICARE SUPPLEMENT Prescription Coverage: Yes, see above Preferred Pharmacy: See below [facility] - [place], [place] - [address] [address] [id number] [place], [place] - [address] [address] This plan was formulated with input from patient, Timbo Faith, spouse, Gwen Palacios (Arlyn) and team. All are in agreement with plan. Due to current public health concerns, I have verbally reviewed Medicare Discharge Rights with patient. Patient verbalizes understanding of right to appeal this discharge if feeling not medically ready. Offered a copy of this letter to spouse, Arlyn, she declines stating I am comfortable with his disc harge. Michelle Rojas RN Case Oil Developer of Care Management Pager: [phone] Beverley Reno - 12/23/2020 12:56 PM EDT Office of Care Management(OCM)/Dean(RS) Patient Name: Timbo Su : 1955 Patient has been offered a Swing bed at [facility]. [facility] arranged for a 1330 transport. Ambulance will need: Medicare ambulance form completed and signed (MD or Collar Padder Blindstitch) Copy of patient demographics [place] Out of Hospital DNR/DNI order, if active Please have MD call Dr Aguayo at [phone]: Please call Nursing Report to [phone], ask for night baker. Info to accompany patient: Narcotic Prescriptions Copies of Medication Administration Records and IV sheets for past two weeks. Plan: Dean will be available to the patient and Collar Padder Blindstitch for further assistance. Patient will be discharged to: [address] [place] [id number] Beverley Reno Dean Elian Hoang MSW - 12/23/2020 8:35 AM EDT Chart reviewed. Treatment Team working on dispo plan to ensure a continuity of care at discharge. Care Management consult completed. Following for TEAM LEAD support, including coping through illness process and resource needs, through disposition. Elian Hoang TEAM LEAD Pager #[phone] Extension [phone] Michelle Rojas RN - 12/22/2020 7:55 PM EDT Based on discussions with the multi-disciplinary healthcare team, the patient would benefit from Rehab level of care at discharge. ?? I have met with the patient's spouse, Gwen, to discuss discharge planning needs. I have provided the [facility], Office of Care Management letter from the Hotel Breakfast Attendant pertaining to rehab referrals. I have also provided a letter describing our affiliations within the [facility] and educated them about their right to choose where referrals are. ?? Provided patient with [facility] Star Quality Rating for SNF, LTAC and/or IRF hand out. ?? I reviewed the different levels of rehab including SNF, swing, acute and LTAC with the patient spouse. ?? The patient spouse has been provided a list of facilities within their preferred geographic area. ?? I have requested that the patient spouse provide at least three choices for referral. ?? The patient's spouse has requested referrals to: 1. [facility] ([facility]) [facility] [address] [place] [address] ?? PHONE: [phone] FAX: [phone] 2. [facility] ([facility]) ([facility]) [address] [place] [address] ?? PHONE: [phone] FAX: [phone] 3. [facility] PHONE: [phone] FAX: [phone] Nurse to Nurse report: [phone] [address] [place] [address] ?? Expected date of discharge: 12/23/20. Note routed to Dean who will communicate referrals to facilities and provide any required information. CM to continue to monitor. LONI Garcias Pager: [phone] Jenny Alonso RN - 12/22/2020 6:45 PM EDT Pt has arrived from as a transfer at 1840. Pt is only oriented to self. VSS on RA. Bed alarm on and call white within reach. Safety maintained. Elian Hoang, TEAM LEAD - 12/22/2020 4:33 PM EDT Chart reviewed. Discussed patients daily goals, and plan for potential discharge during IDR. Received VM from Gwen Palacios ([phone]) expressing the need for more information regarding patients care plan and discharge plan. Returned call and left VM with my contact number and RNCM contactnumber. Plan: Follow up with Gwen on 12/23 Following for TEAM LEAD support, including coping through illness process and resource needs, through disposition. Elian Hoang TEAM LEAD Pager #[phone] Extension [phone] Michelle Rojas RN - 12/22/2020 4:20 PM EDT Marble Mechanic Helper attempted to phone spouse, Gwen, to discuss discharge planning at [phone] (H) [phone] (W) [phone] (M). Left voicemail message on all numbers. Awaiting return call. CM to continue to monitor. Dolores Rojas RNCM Pager: [phone] Mary Whiting OTA - 12/22/2020 10:52 AM EDT Occupational Therapy Treatment Note Treatment Number OT: 2 Patient profile: Timbo Su??is a 65 y.o.??male??with a hx of parkinson's disease??with vagal nerve stimulator who presents to the Emergency Department??with concerns for increasing falls over the last 2 weeks as well as concerns for right-sided weakness. Patient was recently diagnosed with herpes zoster infection treated with antivirals. notes that he has had some visual hallucinations overthe last several days. Social History: Patient lives with his in a mobile home with 5 steps to enter. DME: walker, cane Baseline ADL/Mobility: independent with ADL, per chart he ambulates ~1.5 miles. performs IADL. ?? Precautions/Special Considerations: fall risk, seizure precautions, DBS, cognitive impairment S: I feel unsteady. O: Patient seen for skilled OT treatment, and demonstrated the following: ?? Self-care & Functional Mobility: ?? Pt dependent to anusha socks while in long sit, pt reports completes for him at home ?? Supine>sit max Ax2 ?? Sitting EOB balance, mod/max A, pt retropusive vc to lean forward ?? Preformed UB bathing with increased time and vc ?? Donned stacy shirt with mod A, attempted to anusha pants, pt able to lift BLE to have pants threaded while at EOB pt unable to stand for long enough period of time to have pants hiked (pt pants removed and replaced with clean angeline gown ?? Preformed oral care with min A at EOB ?? Pt attempted to stand 2x with max, pt with strong lateral lean to R, with rigid body vc to bed atwaist ?? Pt was able to take 2x steps toward HOB with max Ax2 fww and gait belt ?? Pt attempted to assist therapist to boost up in bed by bending BLE with assist, max A x2 to boost ?? Cognition: ?? Behavior / Mood: alert, cooperative and flat affect ?? Alert and oriented to: person, place, time and situation ?? Follows commands: 1 step, requires increased time and requires repetition ?? Attention: slow to process ?? Safety awareness: mild impairment ?? Endurance: decreased activity tolerance ?? Vitals: VSS per monitor Pain: Did not co pain Education: Pt/family/caregiver education ongoing regarding: Role of occupational therapy/rehabilitation, Assistive device/technique, ADL and Functional Mobility. Staff Communication: Patient status, treatment, and mobility recommendations discussed with nursing/other staff. ASSESSMENT: Pt seen for continuation of POC. Pt alert and pleasant able to participating in ADL retraining activities at EOB then attempt to stand with max Ax2, fww and gait belt, pt unsteady and unable to preform transfers.. Pt will benefit from ongoing therapeutic interventions to achieve pt's and therapy goals Anticipated Discharge Disposition (OT): inpatient rehabilitation facility Equipment Recommendations: TBD Daily schedule / Staff Recommendations: ?? Pt is dependent for transfers ?? Please encourage up to chair for meal times as able. Goals: To be achieved by 01/06/21 Pt will perform grooming routine sitting unsupported with supervision. Pt will dress LB with min A using AE as needed. Pt will perform functional transfers with CGA. Pt will stand for 2 min with BUE support and CGA for hygiene/pants hike following toileting. Pt will ambulate to bathroom with CGA using least restrictive device Therapy Frequency (OT): 2-3 times/wk Total Minutes, Occupational Therapy: 32(2x schm) Pager: [phone] CONNIE Maldonado Occupational Therapy Rehabilitation Department Jenny Zhou MD - 12/22/2020 9:18 AM EDT Inpatient - Progress Note Admit Date: 12/20/2020 Hospital Day 1 day Patient ID: Timbo Su is a 65 y.o. male with a history of advanced Parkinson's disease s/p DBS,afib with RVR, HTN, DM and hyperlipidemia brought to the ED by his for progressive AMS, weakness and falls for two weeks, with 3 falls the morning of his presentation, found to have a UTI. Problem List: Active Hospital Problems Diagnosis ??? UTI (urinary tract infection) ??? Frailty ??? Parkinson's disease ??? S/P deep brain stimulator placement ??? Mixed anxiety and depressive disorder ??? Sensory ataxia ??? Hypertension ??? Hyperlipidemia ??? Diabetes mellitus Resolved Hospital Problems No resolved problems to display. Active Non-Hospital Problems Diagnosis ??? Dysphagia ??? Atrial fibrillation ??? Viral meningitis ??? Diabetic polyneuropathy ??? Orthostatic hypotension ??? Carpal tunnel syndrome, bilateral ??? Sciatica of left side ??? Abnormal LFTs (liver function tests) ??? Cholelithiasis ??? REM behavioral disorder ??? Ankle fracture, left ??? Fatigue 24 Hour Events: NAEO Patient with improved cognition this morning, reports feeling better Physical Exam: Last Set of Vitals and range of vitals over past 24 hours: Last value Range last 24 hrs Temperature Temp: 36.4 ??C (97.5 ??F) Temp: [36.4 ??C (97.5 ??F)-37 ??C (98.6 ??F)] Heart Rate Heart Rate: 89 Heart Rate: [89-94] Blood Pressure BP: 146/79 BP: (128-159)/(76-84) Respiratory Rate Resp: 16 Resp: [16-21] SpO2 SpO2: 95 % SpO2: [95 %-98 %] Physical Exam Gen: Lying in bed, appears uncomfortable, HEENT: PERRLA, EOMI, Anicteric sclera, MMM, OP clear Neck: Supple with normal ROM, No cervical LAD appreciated, JVP flat CV: RRR, S1 and S2 noted, no m/g/r appreciated Resp: CTAB with good air movement throughout, normal effort Abd: +normoactive BS, soft NTND, no HSM or masses appreciated Back: No CVA tenderness noted EXT: No cyanosis or edema, DP pulses 2+ and symmetric bilaterally Skin: Scattered scabs Neuro: frequent full body clonic jerking. Sometimes seems to be on intention of movement. Laboratory (Last 24 Hours): Recent Results (from the past 24 hour(s)) POCT Glucose Result Value Ref Range POC Glucose 161 65 - 199 mg/dL POCT Glucose Result Value Ref Range POC Glucose 147 65 - 199 mg/dL POCT Glucose Result Value Ref Range POC Glucose 118 65 - 199 mg/dL POCT Glucose Result Value Ref Range POC Glucose 133 65 - 199 mg/dL POCT Glucose Result Value Ref Range POC Glucose 163 65 - 199 mg/dL POCT Glucose Result Value Ref Range POC Glucose 127 65 - 199 mg/dL Prothrombin Time Result Value Ref Range PT 13.8 (H) 9.4 - 12.5 sec INR 1.2 APTT Result Value Ref Range PTT 29 25.0 - 37.0 sec POCT Glucose Result Value Ref Range POC Glucose 162 65 - 199 mg/dL Microbiology: COVID negative Urine culture pending Radiology: XR Pelvis & Lat Hip Bilat Final Result No fracture or dislocation of the right or left hip joints. I have personally reviewed the image(s) and the resident's interpretation and agree with the findings, Daniela Barone MD at 12/20/2020 7:42 PM Thank you for letting us participate in the care of this patient. If you are a health care provider and have any questions regarding this report, please contact the number below. For patients who have questions please contact the health occasional caregiver that requested your imaging first. Electronically signed by: Daniela Barone MD, [facility] ([phone]), at 12/20/2020 7:[address] Head & Cervical Spine wo Contrast (Generic) Final Result 1. No intracranial hemorrhage or calvarial fracture. 2. No acute cervical spine fracture. Thank you for letting us participate in the care of this patient. If you are a health care provider and have any questions regarding this report, please contact the number below. For patients who have questions please contact the health occasional caregiver that requested your imaging first. Fluoro Guided Lumbar Puncture (Results Pending) Assessment: Timbo Su is a 65 y.o. male with a history of advanced Parkinson's disease s/p DBS, afib with RVR, HTN, DM and hyperlipidemia brought to the ED by his for progressive AMS, weakness and falls for two weeks, with 3 falls the morning of his presentation, found to have a UTI. ?? As we have identified a source of infection, don't feel that LP is warranted at this time. However if patient fails to improve with treatment of UTI may reconsider. Will continue to engage Neurology for assistance in managing his Parkinson's' disease. Remainder of plan as below. ?? Plan: ?? #UTI - s/p 2 doses Ceftriaxone - start Cipro 500 mg BID to finish a total course of 7 days (end date 12/26) ?? #Parkinson's Disease - continue Sinemet - continue Entacapone - continue Cymbalta - Neurology consult, appreciate recs ?? #afib with RVR - continue Metoprolol ?? #post-herpetic pain - continue Gabapentin ?? Jenny Zhou MD 12/22/2020 Associated attestation - Renny Reyes MD - 12/23/2020 9:26 AM EDT Attending Attestation Please see Dr. Zhou's note for details of the patient history of presentation and data. I have discussed, reviewed and agree with the documented History, Physical findings, Assessment and Plan of care. I have examined the patient myself and personally reviewed all studies. In addition, I certify that I am a D-H credentialed attending provider with admitting privileges and that the patient meets or has met medical necessity to require an inpatient IPI level of care meeting a minimum of two midnights or is on the [facility] inpatient only procedure list (status C) due to: Acute toxic metabolic encephalopathy secondary to UTI. Akua Waters RN - 12/22/2020 5:57 AM EDT Illness Severity [] Stable [x] Watcher [] Unstable Patient Summary Reason for admission: brought to the ED by his for progressive AMS, weakness and falls for two weeks, with 3 falls the morning of his presentation, found to have a UTI Relevant PMH: advanced Parkinson's disease s/p DBS, afib with RVR, HTN, DM and hyperlipidemia Significant 24 hour events: Admitted via the ED @ 2034 in lethargic state, responds to pain only with intermittent increased tonic-clonic jerking noted, seen by MD pump station operator at bedside. Woke up at 2300, confused, impulsive, poor safety awareness and hallucinations claiming there's glue on his legs, reassured as needed, repositioned. Cognitive restraints ordered but not utilized as patient responded positively to environmental modification and reassurances. Safety ensured, monitoring maintained Neuro: Q shift Neuro exam: Alert and oriented to self only, intermittently follows commands, hallucinating, strengths are 5/5, intermittent generalized tonic-clonic jerking Drains: IV access CV: WDL Resp: WDL GI: NPO give meds, LBM- TELEPHONER : Incontinent Heme/ID: WDL Skin: scattered bruises, abrasions, large purplish bruise on Rt hip, sacrum red/ blanchable Social: Spouse involved in care Action List Q Shift neuro checks Q4 vitals Q8 I/O Q4 BG Mobility goals: Heavy 2 Assist with FWW pending PT evaluation Patient education: safety measures, use of call white however patient is confused and impulsive and is not compliant Serial Labs: AM labs Other: Maintain safety, ensure investigations Situational Awareness & Contingency Planning (If/Then) If changes in neuro status/ vitals occurs, notify team Akua aWters RN - 12/21/2020 11:53 PM EDT Timbo Su arrived to 503A @ 2034 from the ED in lethargic, unresponsive state, sleeping deeply,aroused only to pain by flinching, assessment done, numerous bruises and scrapes as well as a purplish bruise noted on Rt hip measuring >7cm, suspicious of hematoma/fracture, team notified of patient's state, reviewed at bedside, X-ray ordered. Woke up at 2300, alert and Oriented to self only, confused, impulsive, oriented to room, call white within reach, educated on importance of using prior to getting OOB though does not seem to understand,belongings updated in eDH, bed locked in low position, purposeful hourly rounding, bed alarm on. Safety and monitoring ensured Sandra Cain, PT - 12/21/2020 12:13 PM EDT Physical Therapy Evaluation Patient profile: 65 y.o. male with worsening stabilization c/w frequent falls (3x today) for the past 2 weeks coinsiding with his shingles diagnosis, which first presented on his right calf and spread to his right lower back. Patient with the following active problems: History reviewed. No pertinent past medical history. Past Surgical History: Procedure Laterality Date ??? CHOLECYSTECTOMY ??? HIP SURGERY as a child ??? PRO APPLY/REMOVE CRANIAL FIX DEV Bilateral 06/10/2017 PLACEMENT-STARFIX FIDUCIALS (WRVU 4) [facility] ? ? PRO IMP STIM, CRANIAL, SUBQ, >1 ARRAY Bilateral 06/24/2017 PLACEMENT ADD'L CRANIAL NEUROSTIMULATOR (WRVU 9.93) performed by Randall Sapp MD at [facility] ? ? PRO IMP STIM, CRANIAL, SUBQ, >1 ARRAY Left 09/21/2020 PLACEMENT ADD'L CRANIAL NEUROSTIMULATOR (WRVU 9.93) performed by Randall Sapp MD at [facility] ??? PRO IMPLANT NEUROELECTRDE, ADDL N/A 06/17/2017 @IMPLANTATION OF ADD'L NEUROSTIMULATOR ELECTRODE (WRVU 7.91) performed by Randall Sapp MD at [facility] ??? PRO IMPLANT NEUROELECTRODE Bilateral 06/17/2017 @IMPLANTATION OF NEUROSTIMULATOR ELECTRODE-RUBY (WRVU 33.03) performed by Rnadall Sapp MD at [facility] Social History: Pt resides with his in a mobile home with 5 RENÉ (per chart, son is supposed to build a ramp). At his baseline, pt is an independent ambulator and appears to use a cane at times. Per chart note, ptis able to ambulate a distance of 1.5 miles as well as use an exercise bike. Pt had frequent recent falls, but was not able to elaborate on the circumstances leading to the falls. Precautions/Special Considerations: Seizure precautions, fall risk, cognitive impairment, DBS Mobility and Positioning Recommendations: ?? Pt is dependent for transfers ?? Please encourage up to chair for meal times as able. Subjective: ???See that trampoline bouncing up and down? (pointing at blank wall) Objective: Pt seen for PT evaluation today. Pain: denied Vital Signs: HR 108 (ar rest), 117 (with activity) SpO2 97% ora BP 160/118 (seated EOB) Mental Status: a&o to self, follows simple commands. Not aware he is at the hospital. Hallucinating. Decreased period of responsiveness following shaking episode. Vision: appears functional Musculoskeletal: ROM: difficulty flexing knees and hips, tendency to extend Strength: globally impaired; unable to formally test, but required substantial assist to stand or come to EOB Sensation: per chart review, baseline diabetic neuropathy of feet Patient had two episodes of seizure-like activity, each time in supine and each time preceded by patient stating he felt it coming (described it as tingling all over). During episodes, patient's limbs are shaking violently for about 5-10 sec. After episode, patient appears subdued with increased response times. Per patient, these episodes are not his baseline, but have started to occur fairly recently. Team updated and aware. Bed Mobility: Supine to Sit: max A x 2 Sit to Supine: max a x 2 Initially required max A to sit upright sec to a strong posterior lean (actively retropulsed), then progressed to min A/CGA with frequent verbal cues to lean forward Transfers: Sit to Stand: max a x 2, retropulses Stand to Sit: max A X 2, poor eccentric control Briefly stood at bedside with pronounced posterior lean, legs extended, unable to weightshift or take steps Bed to Chair: dependent Gait: Unable during this assessment Stairs: Unable during this assessment Balance: Sitting Static: poor Sitting Dynamic: unable Standing Static: unable Standing Dynamic / Gait: unable Education: Patient has been educated on Bed mobility, Transfers, Safety , Precautions/protocol, Gait, Role of therapy, Balance and Discharge planning, but will need reinforcement to understand. Patient status, treatment, and mobility recommendations discussed with nursing. Assessment: Timbo Su was seen today for physical therapy evaluation and presents with the following impairments: decreased strength, postural impairment, cognitive deficits/AMS, sensory impairments, a recent hx of frequent falls, decreased motor control, and seizure-type events (twice during this assessment, see under Musculoskeletal above), visual hallucinations, and an overall compromised mobility status, all of which impact patient's current functional level. At his baseline, pt appears to be an independent ambulator, at times with a cane, and resides with his in a mobile home. During this assessment, patient was unable to ambulate and only briefly stood at bedside with max A x 2 with a pronounced posterior lean, precluding any weightshifting or stepping. Pt actively hallucinated (saw a moving trampoline on the blank wall) and had two episodes of seizure-like activity followed by decreased responsiveness. As patient appears to be far form his baseline, anticipate he will benefit from a rehab stay once medically improved. The pt would benefit from skilled therapy services while in the hospital to maximize functional abilities. Discharge Recommendations: Based on the current findings, Anticipated Discharge Disposition (PT): inpatient rehabilitation facility when medically ready for hospital discharge. Consult Recommendations: No other consults recommended at this time. Equipment needs: TBD Goals: To be achieved by 01/09/2021 1. Pt to transition from supine to sitting EOB with min A 2. Pt to maintain EOB sitting with CGA x 10 min 3. Pt to transfer from sit to stand with RW and min A 4. Pt to transfer between bed and recliner with min A 5. Pt to ambulate room distances with RW and min A x 2 Plan: Therapy Frequency (PT): 2-4 times/wk for therapy including balance training, bed mobility training, gait training, motor coordination training, neuromuscular re-education, orthotic fitting and training, range of motion, stair training, strengthening, stretching and transfer training. Patient/family understand and agree with plan as stated above. 2017 PT Evaluation Code Rationale: ?? Diagnosis & Pertinent Co-Morbidities, personal factors, and present illness affecting Plan ofCare: (see above); Additional personal factors or co- morbidities that impact plan: ?? Total # of Factors: 0 1-2 3+ x ?? Examination of body system impairments, functional limitations and behaviors, and/or participation restrictions. Addressing 1-2 elements Addressing 3 + elements Addressing 4 + elements x ?? Clinical presentation: See assessment above. Stable/Uncomplicated Evolving/Fluctuating Symptoms Unstable/Unpredictable x ?? Clinical decision making of high complexity based on pt's functional performance as outlined in this evaluation. Time IN / OUT: [id number] Sandra Cain DPT Board-Certified Clinical Specialist in Geriatric Physical Therapy Board-Certified Clinical Specialist in Neurologic Physical Therapy Inpatient Rehabilitation Pager #[phone] Dyana Pate MD - 12/21/2020 11:18 AM EDT Images from the original note were not included. Pre Procedure Neuroradiology Note: PCP: Griselda Stanley MD Referring Physician: JOSE Reece Indication: 65 year old male with increased confusion and altered mental status and a recent herpes zoster infection. CT head was obtained which was negative. The team is concern for encephalitis. We are consulted for fluoroscopic guided lumbar puncture. Planned Procedure: Fluoroscopic guided lumbar puncture Labs: Lab Results Component Value Date WBC 8.1 12/20/2020 HGB 11.1 (L) 12/20/2020 HCT 32.3 (L) 12/20/2020 MCV 86.6 12/20/2020 PLATELET 167 12/20/2020 Lab Results Component Value Date NA 141 12/20/2020 K 3.5 12/20/2020 CL 106 12/20/2020 CO2 24 12/20/2020 BUN 13 12/20/2020 CREATININE 0.85 12/20/2020 GLUCOSE 174 12/20/2020 CALCIUM 8.7 12/20/2020 Lab Results Component Value Date INR 1.3 12/20/2019 Lab Results Component Value Date PT 14.7 (H) 12/20/2019 PTT 32 12/20/2019 Medications Scheduled Meds: ??? cefTRIAXone 1 g Intravenous Once ??? carbidopa-levodopa 1 tablet Oral 4 Times Daily ??? DULoxetine DR 60 mg Oral TID ??? entacapone 200 mg Oral TID ??? metoprolol succinate XL 100 mg Oral Daily ??? insulin lispro 1-4 Units Subcutaneous Q4H ENA ??? insulin lispro 0-8 Units Subcutaneous TID WC ??? cephALEXin 500 mg Oral 4 Times Daily ??? gabapentin 300 mg Oral TID Continuous Infusions: ??? sodium chloride 0.9% 100 mL/hr (12/21/20 0854) PRN Meds:.glucose 40% oral geL OR dextrose 10% OR glucagon Allergies No Known Allergies Imaging Assessment 65 year old male with increased confusion and altered mental status and a recent herpes zoster infection. CT head was obtained which was negative. The team is concern for encephalitis. We are consultedfor fluoroscopic guided lumbar puncture. Plan: Fluoroscopic guided lumbar puncture # Medications to STOP None # Labs to order day of procedure: PT/INR. CSF labs # Sedation requirements None # Prophylactic Antibiotics None # Additional medications for procedure Lidocaine for local analgesia # Planned access site Lumbar # Position Prone # Consent: To be obtained day of procedure Dyana Pate MD [facility] Alberto Quijano, OT - 12/21/2020 8:55 AM EDT Occupational Therapy Evaluation Patient profile: Timbo Su??is a 65 y.o.??male??with a hx of parkinson's disease??with vagal nerve stimulator who presents to the Emergency Department??with concerns for increasing falls over the last 2 weeks as well as concerns for right-sided weakness. Patient was recently diagnosed with herpes zoster infection treated with antivirals. notes that he has had some visual hallucinations overthe last several days. History reviewed. No pertinent past medical history. Past Surgical History: Procedure Laterality Date ??? CHOLECYSTECTOMY ??? HIP SURGERY as a child ??? PRO APPLY/REMOVE CRANIAL FIX DEV Bilateral 06/10/2017 PLACEMENT-STARFIX FIDUCIALS (WRVU 4) performed by Randall Sapp MD at [facility] ? ? PRO IMP STIM, CRANIAL, SUBQ, >1 ARRAY Bilateral 06/24/2017 PLACEMENT ADD'L CRANIAL NEUROSTIMULATOR (WRVU 9.93) performed by Randall Sapp MD at [facility] ? ? PRO IMP STIM, CRANIAL, SUBQ, >1 ARRAY Left 09/21/2020 PLACEMENT ADD'L CRANIAL NEUROSTIMULATOR (WRVU 9.93) performed by Randall Sapp MD at [facility] ??? PRO IMPLANT NEUROELECTRDE, ADDL N/A 06/17/2017 @IMPLANTATION OF ADD'L NEUROSTIMULATOR ELECTRODE (WRVU 7.91) performed by Randall Sapp MD at [facility] ??? PRO IMPLANT NEUROELECTRODE Bilateral 06/17/2017 @IMPLANTATION OF NEUROSTIMULATOR ELECTRODE-RUBY (WRVU 33.03) performed by Randall Sapp MD at [facility] Social History: Patient lives with his in a mobile home with 5 steps to enter. DME: walker, cane Baseline ADL/Mobility: independent with ADL, per chart he ambulates ~1.5 miles. performs IADL. Precautions/Special Considerations: fall risk, seizure precautions, DBS, cognitive impairment Subjective: I get tingly before it happens. re: seizure like episodes Objective: Seen today for OT evaluation in conjunction with PT. 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 Range of motion, strength, coordination: BUE good strength, rigid and tremulous BLE good strength, rigid and tremulous Activities of Daily Living: Self-feeding: not observed - anticipate he will require assist Dressing: max A for socks Bathing: max A Toileting: max A to manage urinal while supine (unable to maintain balance EOB despite significant assist to trial voiding while upright) Functional Mobility: Supine to sit: max A of 2 Sit to stand: max A of 2 Ambulation: unable to weight shift Stand to sit: max A of 2 Sit to supine: max A of 2 Balance: Sitting balance: poor, (+)retropulsion Standing balance: poor, (+)retropulsion IADL???s: Assistance available to patient. Vitals: SpO2 97% R< HR 107-117, BP 160/118 sitting Pain: denies Education: Role of occupational therapy/rehabilitation, ADL, Safety, Functional Mobility, Balance, Recommendations and Discharge planning Patient status, treatment, and mobility recommendations discussed with nursing. Assessment: Pt has been seen for occupational therapy evaluation. Timbo Su presents with the following performance skill deficits and client factors: decreased activity tolerance, decreased flexibility/ROM, decreased strength, decreased sitting/standing balance, cognitive deficits, decreased motor control, decreased postural control and compromised mobility status. These performance deficits have led to activity limitations and participation restrictions in the following areas of occupation: dressing, bathing, grooming, toileting, self- feeding and transfers/mobility. Pt alert, cooperative, answering questions, and following simple commands. He required significant assistance from 2 people to come to the EOB, balance, and then stand. Pt with 2 episodes of full body shaking with decreased responsiveness afterwards. Anticipate need for rehab. Pt would benefit from further inpatient OT interventions to address performance deficits and maximize participation and independence with occupations of daily living. Equipment needs at discharge: TBD Anticipated Discharge Disposition (OT): inpatient rehabilitation facility Goals: To be achieved by 01/06/21 Pt will perform grooming routine sitting unsupported with supervision. Pt will dress LB with min A using AE as needed. Pt will perform functional transfers with CGA. Pt will stand for 2 min with BUE support and CGA for hygiene/pants hike following toileting. Pt will ambulate to bathroom with CGA using least restrictive device. Plan: Therapy Frequency (OT): 2-3 times/wk Planned OT interventions: Role of occupational therapy/rehabilitation, Transfers, Assistive device/technique, ADL, Safety, Functional Mobility, Balance, Recommendations and Discharge planning. Total Minutes, Occupational Therapy: 20(eval) 2017 OT Evaluation Code Rationale: ?? Diagnosis & Pertinent Co-Morbidities affecting Plan of Care: see PMHx ?? Occupational Profile & Client History: Brief Expanded Extensive X ?? Assessment of Occupational Performance: 1-3 performance deficits 3-5 performance deficits 5 + performance deficits X ?? Clinical Decision Making: Low Moderate High X Clinical decision making of high complexity using standardized patient assessment instrument and measurable assessment of functional outcome. Pager: [phone] ALBERTO QUIJANO OT 12/21/2020 Occupational Therapy Rehabilitation Department Kamari Ruth RN - 12/21/2020 6:45 AM EDT Pt oriented to self and place. Pt has been intermittently confused throughout the night and having hallucinations while eyes are shut. Pt easily redirectable and able to settle with minimal reorientation. VS stable and pt denies pain. He has been incontinent of dark yellow urine. Pt also has frequent full body seizure like convulsions. However, pt is able to verbalize his whereabouts while having these muscle twitches. Oxygen was placed on pt at this time for inconsistent oxygenation while sleeping. Pt continues on IVF and abx for current UTI. Louisa Moore RN - 12/20/2020 8:10 PM EDT Office of Care Management/ ED RN CM CDU/SDP/Emergency Department [phone] Patient: Timbo Su : 1955 (65 y.o.) Home: [facility] [id number] LOS: 0 days Problem List Items Addressed This Visit None Parkinson's hx Shingles two weeks ago per team. Based on discussions with the multi-disciplinary healthcare team, the patient would benefit from ACUTE REHAB level of care at discharge. ?? I have met with Xiomy to discuss discharge planning needs. I have provided the [facility], Office of Care Management letter from the Hotel Breakfast Attendant pertaining to rehab referrals. I have also provided a letter describing our affiliations within the [facility] and educated them about their right to choose where referrals are. ?? Provided patient with [facility] Star Quality Rating for SNF, LTAC and/or IRF hand out. ?? I reviewed the different levels of rehab including SNF, swing, acute and LTAC with Nasrin ?? The Nasrin were provided a list of facilities within their preferred geographic area. ?? I have requested that the Nasrin provide at least three choices for referral. ?? Marcell and Gwen have requested referrals to: ?? 1. [facility] ?? 2. [facility] ?? 3. [facility] ?? Expected date of discharge: 12/21/20 Note routed to Dean who will communicate referrals to facilities and provide any required information. Anticipate pt will be admitted OBSVO status under Frailty Protocol. Ambulance transportation is medically necessary at discharge related to Parkinson's disease, weakness secondary to hx of shingles two weeks agon I have discussed Medicare/Private Insurance reimbursement guidelines for ambulance transport. Gwen and Marcell verbalize understanding of their potential financial obligation and agree with ambulance transport. History reviewed. No pertinent past medical history. Patient Active Problem List Diagnosis Code ??? [...] Viral meningitis A87.9 ??? Parkinson's disease G20 Social History Social History Narrative Lived in [place], moved to [place] 1980. Extended Emergency Contact Information Primary Emergency Contact: Gwen Su Address: [address] [place] [address] [place] [address] [facility] [phone] Mobile Relation: Spouse Secondary Emergency Contact: Óscar Su [facility] Mobile Relation: Child ?? Code status: History [facility] - [place], [place] - [address] [facility] [address] [facility] [id number] [id number] [place], [place] - [address] [address] Plan: Care Management will continue to monitor progress, follow for continuity of care, and assist with discharge planning. ?? PCP: Griselda Stanley MD, Future Appointments Date Time Provider Department Center 12/30/2020 10:00 AM Vishnu Hooper MD [facility] NEURO [facility] documented in this encounter H&P Notes Jenny Zhou MD - 12/21/2020 10:31 AM EDT [facility] Department of Internal Medicine Inpatient History and Physical Note Patient info: Timbo Su 1955 [id number] Griselda Stanley MD Date of Admission: 12/20/2020 ( Hospital Day 0 days ) Attending: Dr. Reyes Service: Medicine Source: patient, patient's , chart review Chief Complaint: Chief Complaint Patient presents with ??? Extremity Weakness Patient ID: Timbo Su is a 65 y.o. male with a history of advanced Parkinson's disease s/p DBS, afib with RVR, HTN, DM and hyperlipidemia brought to the ED by his for progressive AMS, weakness and falls for two weeks, with 3 falls the morning of his presentation, found to have a UTI. History of Present Illness: Imaging in the ED (CT Head, C-spine and XR Pelvis) negative for fracture or other acute abnormality.He was diagnosed with shingles two weeks ago and completed his course of therapy one week ago. The patient's reports that she noticed the patient becoming weaker while he was taking Acyclovir, andthere was a noticeable progression in weakness over the weekend. Prior to his progressive decline, the patient ambulated carefully around the house, had to start using a walker approximately one week prior to presentation, and then over the two days prior to presentation, was too weak to walk at all. Additionally his notes increasing hallucinations over the past 2 days. She denies fevers and chills. States she was checking his temperature daily and it was never higher than 99 degrees Fahrenheit. His also notes that he has demonstrated increasing frequency of tonic clonic jerking over the past two weeks. Prior to this it was well controlled by his deep brain stimulator. In the ED, labs were notable for WBC 10, HgB 12.2, Plt 198, Creatinine 1.01 (Baseline ~0.6), HepaticFunction panel unremarkable UA unremarkable. The patient's lactate was normal upon arrival, uptrended to 3.7, and has normalized to 1.9. ROS: Negative for abdominal pain, chest pain, trouble breathing Past Medical History: History reviewed. No pertinent past medical history. Past Surgical History: Past Surgical History: Procedure Laterality Date ??? CHOLECYSTECTOMY ??? HIP SURGERY as a child ??? PRO APPLY/REMOVE CRANIAL FIX DEV Bilateral 06/10/2017 PLACEMENT-STARFIX FIDUCIALS (WRVU 4) performed by Randall Sapp MD at [facility] ? ? PRO IMP STIM, CRANIAL, SUBQ, >1 ARRAY Bilateral 06/24/2017 PLACEMENT ADD'L CRANIAL NEUROSTIMULATOR (WRVU 9.93) performed by Randall Sapp MD at [facility] ? ? PRO IMP STIM, CRANIAL, SUBQ, >1 ARRAY Left 09/21/2020 PLACEMENT ADD'L CRANIAL NEUROSTIMULATOR (WRVU 9.93) performed by Randall Sapp MD at [facility] ??? PRO IMPLANT NEUROELECTRDE, ADDL N/A 06/17/2017 @IMPLANTATION OF ADD'L NEUROSTIMULATOR ELECTRODE (WRVU 7.91) performed by Randall Sapp MD at [facility] ??? PRO IMPLANT NEUROELECTRODE Bilateral 06/17/2017 @IMPLANTATION OF NEUROSTIMULATOR ELECTRODE-RUBY (WRVU 33.03) performed by Randall Sapp MD at [facility] Medication History: Outpatient Medications Marked as Taking for the 12/20/20 encounter (Hospital Encounter) Medication Sig Dispense Refill ??? dilTIAZem XR (Dilacor XR) 240 mg Capsule,Degradable Cnt Release Take 1 capsule by mouth daily. Allergies: No Known Allergies PHYSICAL EXAM: Vitals: Last value Range last 24 hrs Temperature Temp: 37 ??C (98.6 ??F) Temp: [36.8 ??C (98.2 ??F)-37.5 ??C (99.5 ??F)] Heart Rate Heart Rate: 89 Heart Rate: [71-109] Blood Pressure BP: 143/76 BP: (113-149)/(65-125) Respiratory Rate Resp: 21 Resp: [13-25] SpO2 SpO2: 98 % SpO2: [90 %-100 %] Intake/Output Summary (Last 24 hours) at 12/21/2020 1715 Last data filed at 12/21/2020 0500 Gross per 24 hour Intake 1300 ml Output 350 ml Net 950 ml Patient Vitals for the past 168 hrs: Weight 12/20/20 1412 107.5 kg (237 lb) Wt Readings from Last 3 Encounters: 12/20/20 107.5 kg (237 lb) 09/21/20 103 kg (227 lb) 08/23/20 103 kg (227 lb) Physical Exam: Gen: Lying in bed, appears uncomfortable, HEENT: PERRLA, EOMI, Anicteric sclera, MMM, OP clear Neck: Supple with normal ROM, No cervical LAD appreciated, JVP flat CV: RRR, S1 and S2 noted, no m/g/r appreciated Resp: CTAB with good air movement throughout, normal effort Abd: +normoactive BS, soft NTND, no HSM or masses appreciated Back: No CVA tenderness noted EXT: No cyanosis or edema, DP pulses 2+ and symmetric bilaterally Skin: Scattered scabs Neuro: frequent full body clonic jerking. Sometimes seems to be on intention of movement. Labs: Recent Labs 12/20/20222312/20/20 1535 WBC 8.1 10.0* HGB 11.1* 12.2* HCT 32.3* 36.0* PLATELET 167 198 NEUTROABS 4.70 6.43* Recent Labs 12/20/20 22212/20/20 1535 NA 141 142 K 3.5 3.9 CL 106 104 CO2 24 24 BUN 13 14 CREATININE 0.85 1.01 Recent Labs 12/20/20 2224 12/20/20 1535 CALCIUM 8.7 9.4 Recent Labs 12/20/20 1535 AST 35 ALT 18 ALKPHOS 113 BILITOT 0.7 BILIDIR 0.2 Recent Labs 12/20/20 2224 INR 1.1 PT 12.8* Microbiology: COVID pending BCx pending Imaging Studies: XR Pelvis & Lat Hip Bilat Final Result No fracture or dislocation of the right or left hip joints. I have personally reviewed the image(s) and the resident's interpretation and agree with the findings, Daniela Barone MD at 12/20/2020 7:42 PM Thank you for letting us participate in the care of this patient. If you are a health care provider and have any questions regarding this report, please contact the number below. For patients who have questions please contact the health occasional caregiver that requested your imaging first. Electronically signed by: Daniela Barone MD, [facility] ([phone]), at 12/20/2020 7:[address] Head & Cervical Spine wo Contrast (Generic) Final Result 1. No intracranial hemorrhage or calvarial fracture. 2. No acute cervical spine fracture. Thank you for letting us participate in the care of this patient. If you are a health care provider and have any questions regarding this report, please contact the number below. For patients who have questions please contact the health occasional caregiver that requested your imaging first. Fluoro Guided Lumbar Puncture (Results Pending) Assessment: Timbo Su is a 65 y.o. male with a history of advanced Parkinson's disease s/p DBS, afib with RVR, HTN, DM and hyperlipidemia brought to the ED by his for progressive AMS, weakness and falls for two weeks, with 3 falls the morning of his presentation, found to have a UTI. As we have identified a source of infection, don't feel that LP is warranted at this time. However if patient fails to improve with treatment of UTI may reconsider. Will continue to engage Neurology for assistance in managing his Parkinson's' disease. Remainder of plan as below. Plan: #UTI - continue Keflex #Parkinson's Disease - continue Sinemet - continue Entacapone - continue Cymbalta - Neurology consult, appreciate recs #afib with RVR - continue Metoprolol #post-herpetic pain - continue Gabapentin Jenny Zhou MD PGY-1, Internal Medicine [facility] Purple Team pager [phone] 12/21/2020 Associated attestation - Renny Reyes MD - 12/21/2020 9:32 PM EDT Attending Staff Admission Documentation I have examined the patient myself on 12/21/2020 and reviewed all labs and studies personally. Please see Dr. Zhou's documentation for details of the patient history of presentation and data. I have discussed, reviewed and agree with the documented history with ROS, physical findings, labs/studies, assessment and plan of care. documented in this encounter Procedure Notes Julián Vasquez MD - 12/21/2020 4:59 PM EDTProcedure(s): LUMBAR PUNCTURE - ED ONLY Lumbar Puncture Procedure Note Primary Indications for Procedure: Diagnosis of mental status change. Procedure Diagnosis: encephalopathy, acute Location of Procedure: Emergency Department. Risks and Benefits: The risks and benefits of this procedure were reviewed and informed consent was obtained. Time Out: Prior to the start of the procedure, the patient's identity, intended procedure, site/side, correct patient positioning and presence of the site chio was confirmed as applicable. The medical history and chart were reviewed to rule out potential contraindications to the planned procedure. Patient Position for Procedure: Right lateral decubitus Procedure Technique: Sterile draping was applied. Skin was prepped with chlorhexidine. 5 ml of 1% Lidocaine was injected for local anesthesia. Procedure Details: The insertion site for this procedure was L3-4 and L4-5. There were multiple attempts. The needle used was a 3.5 inch 20 gauge Quincke. Findings: Unable to obtain CSF. Procedure Comments: Failed LP. documented in this encounter ED Notes Chante Mckinley RN - 12/21/2020 4:49 PM EDT Pt repositioned again to his left side Chante Mckinley RN - 12/21/2020 3:45 PM EDT Pt repositioned in bed again, as he had his legs draped over the side rails. Chante Mckinley RN - 12/21/2020 2:46 PM EDT Repositioned in bed onto right side with pillows. Anish Keith PA - 12/21/2020 1:35 PM EDT CLINICAL DECISION UNIT - TRANSFER NOTE Admit date: 12/20/2020 Transfer date and time: 12/21/2020 Attending Physician: Renny Reyes MD Diagnoses at Time of Transfer: UTI Altered mental Status Reason(s) for Transfer: Altered mental status History of Presentation (from ED Note): Timbo Su is a 65 y.o. male with a hx of parkinson's disease with vagal nerve stimulator who presents to the Emergency Department with concerns for increasing falls over the last 2 weeks as well as concerns for right-sided weakness in that timeframe. Patient was recently diagnosed with herpes zoster infection treated with antivirals. Since this time he has been falling more frequently at home. Was using a cane and now is using a walker. states that he can barely walk with a walker now and seems to be leaning to the right. She notes that he had 3 falls today. He did hit his head. Patient notes slight left- sided hip pain. notes that he has had some visual hallucinations over the last several days. Recently started gabapentin 5 days ago. Denies fever, chills, numbness, tingling, weakness. ?? Of note, patient was admitted to this hospital approximately 1 year ago with viral meningitis and encephalitis. Required intubation due to altered mental status at that time. CDU Course: Patient admitted to the CDU for the frailty protocol. On arrival this morning he was having a difficult time standing and also appeared altered. He had several moments of jerking his entirebody however was responsive during all of these events. He was evaluated by neurology yesterday and in their note they mention if he becomes more altered while being observed overnight that a lumbar puncture should be pursued. Given this new change in his mental status we did attempt a lumbar puncturehowever we were unsuccessful. We did contact IR to have them do this however hospital medicine who the patient was admitted to has decided against pursuing this at this time and then will have neurology continue to follow the patient. Patient was given a gram of ceftriaxone for UTI. He appeared hemodynamically stable however was altered from his baseline. Patient does have a history of shingles whichdeveloped 3 weeks ago on this Saturday. He was intubated and admitted to the hospital roughly a year ago with viral meningitis/encephalitis. His feels that his presentation today was similar to how he presented a year ago. I communicated with his Gwen on several occasions this morning and did consent him for the lumbar puncture procedure. We also discussed that he will need to stay in the hospital until his mental status improved. Exam at Time of Transfer: BP 128/84 (BP Location (NBP): Right arm, Patient Position: Lying) Pulse 94 Temp 37 ??C (98.6 ??F) (Oral) Resp 20 Wt 107.5 kg (237 lb) SpO2 97% BMI 32.14 kg/m?? Constitutional: Appears altered. Does not know the year or president. Head: Normocephalic and atraumatic. Eyes: EOM are normal. Neck: Normal range of motion. Cardiovascular: Normal rate and regular rhythm. Pulmonary/Chest: Effort normal and breath sounds normal. Abdominal: Soft. Exhibits no distension. There is no tenderness. Musculoskeletal: Exhibits no edema or tenderness. Neurological: Occasionally his entire body convulses. Patient unable to ambulate. Skin: No rashes or ulcerations. Emergency Department/Clinical Decision Unit Course: -H&P -Labs -Neuro Consult -Keflex and ceftriaxone for UTI Summary of Important Studies and Lab Data: XR Pelvis & Lat Hip Bilat Final Result No fracture or dislocation of the right or left hip joints. I have personally reviewed the image(s) and the resident's interpretation and agree with the findings, Daniela Barone MD at 12/20/2020 7:42 PM Thank you for letting us participate in the care of this patient. If you are a health care provider and have any questions regarding this report, please contact the number below. For patients who have questions please contact the health occasional caregiver that requested your imaging first. Electronically signed by: Daniela Barone MD, [facility] ([phone]), at 12/20/2020 7:[address] Head & Cervical Spine wo Contrast (Generic) Final Result 1. No intracranial hemorrhage or calvarial fracture. 2. No acute cervical spine fracture. Thank you for letting us participate in the care of this patient. If you are a health care provider and have any questions regarding this report, please contact the number below. For patients who have questions please contact the health occasional caregiver that requested your imaging first. Fluoro Guided Lumbar Puncture (Results Pending) Recent Results (from the past 24 hour(s)) Basic Metabolic Panel (non-fasting) Result Value Ref Range Glucose Lvl 157 65 - 199 mg/dL BUN 14 10 - 20 mg/dL Creatinine 1.01 0.80 - 1.50 mg/dL Sodium 142 135 - 145 mmol/L Potassium 3.9 3.5 - 5.0 mmol/L Chloride 104 98 - 107 mmol/L CO2 24 22 - 31 mmol/L Anion Gap 14 5 - 15 mmol/L Calcium 9.4 8.5 - 10.5 mg/dL Estimated GFR 78 >=60 mL/min/1.73 m?? Hepatic Function Panel Result Value Ref Range Total Protein 7.0 6.1 - 8.0 gm/dL Albumin 4.3 3.2 - 5.2 gm/dL AST 35 0 - 39 unit/L ALT 18 0 - 55 unit/L Alk Phos 113 40 - 130 unit/L Total Bilirubin 0.7 0.2 - 1.3 mg/dL Bili, Direct 0.2 0.0 - 0.3 mg/dL Hemogram Result Value Ref Range WBC 10.0 (H) 4.0 - 9.5 x10(3)/mcL RBC 4.17 (L) 4.58 - 5.54 x10(6)/mcL Hemoglobin 12.2 (L) 13.7 - 16.5 gm/dL Hematocrit 36.0 (L) 40.5 - 48.5 % MCV 86.3 82.9 - 93.1 fL MCH 29.3 27.5 - 32.1 pg MCHC 33.9 32.0 - 35.7 gm/dL Platelets 198 145 - 357 x10(3)/mcL RDWSD 44.8 36.0 - 45.0 fL RDWCV 14.3 (H) 11.4 - 13.8 % MPV 11.0 7.6 - 12.9 fL nRBC % Auto 0.0 % nRBC Abs Auto 0.000 0.000 - 0.000 x10(3)/mcL Differential, Automated Result Value Ref Range Neutrophils % 64.5 % Neutr Abs (ANC) 6.43 (H) 1 - 6 x10(3)/mcL Lymphocytes % 24.9 % Lymphocytes Abs 2.5 0.9 - 3.2 x10(3)/mcL Monocytes % 9.4 % Monocyte Abs 0.9 0.3 - 0.9 x10(3)/mcL Eosinophils % 0.6 % Eosinophils Abs 0.1 0.0 - 0.4 x10(3)/mcL Basophils % 0.2 % Basophils Abs 0.0 0.0 - 0.1 x10(3)/mcL Immature Gran % 0.40 % Anneliese Gran Abs 0.04 0.00 - 0.04 x10(3)/mcL Blue Tube HOLD Result Value Ref Range Blue Hold Sample in lab. Gold Tube HOLD Result Value Ref Range Gold Hold Sample in lab. BLOOD GAS 2 VENOUS Result Value Ref Range pH Manny 7.41 7.32 - 7.42 pCO2 Manny 39 (L) 41 - 51 mmHg pO2 Manny 41 (H) 25 - 40 mmHg HCO3 Manny 24.4 mmol/L BE Manny -0.2 mmol/L Hgb Blood Gas 12.4 (L) 13.7 - 16.5 gm/dL O2HB Manny 74.2 % COHB Manny 0.9 % METHB Manny 0.6 <=1.5 % Na Whole Blood 140 135 - 145 mmol/L K Whole Blood 4.8 3.5 - 5.0 mmol/L ICa Whole Blood 1.11 (L) 1.15 - 1.33 mmol/L CL Whole Blood 104 98 - 107 mmol/L Gluc Whole Bld 153 65 - 199 mg/dL Lactate WB 3.7 (H) 0.5 - 2.2 mmol/L BGas Source Venous COVID-19 PCR Specimen: Nasopharyngeal Swab Symptoms->Surveillance Result Value Ref Range Rapid SARS-CoV-2 RNA Not Detected Not Detected SARS-CoV-2 Source LEAF FAT SCRAPER Swab Urinalysis with reflex Culture Specimen: Urine Result Value Ref Range Glucose UA Negative Negative mg/dL Protein UA 30 (A) Negative mg/dL Bilirubin UA Small (A) Negative mg/dL Urobilinogen UA Normal Normal mg/dL pH UA 5.0 5.0 - 8.0 Blood UA Negative Negative mg/dL Ketones UA 15 (A) Negative mg/dL Nitrite UA Positive (A) Negative Leukocytes UA Trace (A) Negative mcL Appearance UA Clear Clear Spec [place] UA >=1.030 (A) 1.006 - 1.030 Color UA Dark Yellow Yellow Culture Reflexed Yes Urinalysis Microscopic Exam Result Value Ref Range RBC UA 4 (H) 0 - 3 /HPF WBC UA 3 0 - 3 /HPF Bacteria UA Rare (A) None /HPF Squam Epith UA 1 <=4 /HPF Hyaline Cast UA 11 (H) 0 - 2 /LPF POCT Glucose Result Value Ref Range POC Glucose 164 65 - 199 mg/dL Basic Metabolic Panel (non-fasting) Result Value Ref Range Glucose Lvl 174 65 - 199 mg/dL BUN 13 10 - 20 mg/dL Creatinine 0.85 0.80 - 1.50 mg/dL Sodium 141 135 - 145 mmol/L Potassium 3.5 3.5 - 5.0 mmol/L Chloride 106 98 - 107 mmol/L CO2 24 22 - 31 mmol/L Anion Gap 11 5 - 15 mmol/L Calcium 8.7 8.5 - 10.5 mg/dL Estimated GFR 91 >=60 mL/min/1.73 m?? Hemogram Result Value Ref Range WBC 8.1 4.0 - 9.5 x10(3)/mcL RBC 3.73 (L) 4.58 - 5.54 x10(6)/mcL Hemoglobin 11.1 (L) 13.7 - 16.5 gm/dL Hematocrit 32.3 (L) 40.5 - 48.5 % MCV 86.6 82.9 - 93.1 fL MCH 29.8 27.5 - 32.1 pg MCHC 34.4 32.0 - 35.7 gm/dL Platelets 167 145 - 357 x10(3)/mcL RDWSD 44.8 36.0 - 45.0 fL RDWCV 14.3 (H) 11.4 - 13.8 % MPV 11.0 7.6 - 12.9 fL nRBC % Auto 0.0 % nRBC Abs Auto 0.000 0.000 - 0.000 x10(3)/mcL Differential, Automated Result Value Ref Range Neutrophils % 58.1 % Neutr Abs (ANC) 4.70 1 - 6 x10(3)/mcL Lymphocytes % 29.2 % Lymphocytes Abs 2.4 0.9 - 3.2 x10(3)/mcL Monocytes % 11.3 % Monocyte Abs 0.9 0.3 - 0.9 x10(3)/mcL Eosinophils % 1.0 % Eosinophils Abs 0.1 0.0 - 0.4 x10(3)/mcL Basophils % 0.2 % Basophils Abs 0.0 0.0 - 0.1 x10(3)/mcL Immature Gran % 0.20 % Anneliese Gran Abs 0.02 0.00 - 0.04 x10(3)/mcL Blue Tube HOLD Result Value Ref Range Blue Hold Sample in lab. Gold Tube HOLD Result Value Ref Range Gold Hold Sample in lab. Prothrombin Time Result Value Ref Range PT 12.8 (H) 9.4 - 12.5 sec INR 1.1 L-Lactate2 Whole Blood Result Value Ref Range Lactate WB 1.9 0.5 - 2.2 mmol/L POCT Glucose Result Value Ref Range POC Glucose 165 65 - 199 mg/dL COVID-19 PCR Specimen: Nasopharyngeal Swab Symptoms->Surveillance Result Value Ref Range Rapid SARS-CoV-2 RNA Not Detected Not Detected SARS-CoV-2 Source LEAF FAT SCRAPER Swab POCT Glucose Result Value Ref Range POC Glucose 161 65 - 199 mg/dL Pending Studies and Lab Data: n/a Condition at Time of Transfer: stable Transfer to: Hospital Medicine Accepting Service: Hospital Medicine Anish Keith PA 12/21/20 1441 Julián Vasquez MD - 12/21/2020 9:53 AM EDT ED Attending Note I received signout on this patient at 6:15am. There was a declining mental status over night and thepatient is now delirious and encephalopathic. Requires admission. Given his recent zoster infection we attempted an LP multiple times without success. Contacted neuro and hospital medicine. Plan for abx for UTI, holding IV acyclovir given another source of confusion, and admission to medicine. MD Christina Moss Matthew A, MD 12/25/20 1435 Alberto Moore RN - 12/21/2020 3:13 AM EDT Report to JANNETTE Benites at this time. Alberto Moore RN - 12/21/2020 1:40 AM EDT Patient moved to a hospital bed with 4 assist at this time. Patient unable to move self- had to be moved over. Patient appears very weak, redness noted to face. Temp WNL. Pt alert, appears intermittently confused. Will answer questions appropriately at this time. Alberto Moore RN - 12/21/2020 12:31 AM EDT Pt noted to have ripped out IV to right arm, intermittent confusion noted. Temp 99.0F oral. Awaitinga hospital bed at this time. Respirations even and unlabored. Joseph Marsh LNA - 12/20/2020 10:45 PM EDT Performed blood lactate and results give to Alberto [place], JANNETTE and sent to the lab. Daniel Madrigal PA - 12/20/2020 10:27 PM EDT Patient was reevaluated this evening at 9 PM. He appears more confused. He believes he is in [place] and states that he tore down the house yesterday. He is unable to eat food at this timeand through his sandwich on the ground. Given declining mental status with evidence of infection on UA, case was discussed with hospital medicine for possible admission for UTI with delirium. Hospital medicine will evaluate patient. Daniel Madrigal PA 12/20/202227 Nick Jean RN - 12/20/2020 6:52 PM EDT Pt in bed, spouse at bedside, to be CDU pt overnight w/ PT/OT in a.m.. Daniel Madrigal PA - 12/20/2020 3:38 PM EDT ED Provider Note HPI: Timbo Su is a 65 y.o. male with a hx of parkinson's disease with vagal nerve stimulator who presents to the Emergency Department with concerns for increasing falls over the last 2 weeks as well as concerns for right-sided weakness in that timeframe. Patient was recently diagnosed with herpes zoster infection treated with antivirals. Since this time he has been falling more frequently at home. Was using a cane and now is using a walker. states that he can barely walk with a walker now and seems to be leaning to the right. She notes that he had 3 falls today. He did hit his head. Patient notes slight left- sided hip pain. notes that he has had some visual hallucinations over the last several days. Recently started gabapentin 5 days ago. Denies fever, chills, numbness, tingling, weakness. Of note, patient was admitted to this hospital approximately 1 year ago with viral meningitis and encephalitis. Required intubation due to altered mental status at that time. Goals of Care: Patient's concerns / fears at todays visit are symptoms will get worse. Patient's expectations/hopes at today's visit are testing / diagnosis. Review of Systems Pertinent positives and negatives are included in the HPI, otherwise at least ten systems were reviewed and negative. Past Medical and Surgical Histories, Social History, Medications, Allergies were reviewed in the chart. Vitals: ED Triage Vitals [12/20/20 1412] BP: 110/84 Heart Rate: 71 Resp: 16 Temp: 36.7 ??C (98 ??F) Temp src: Temporal SpO2: 98 % O2 Device: RA O2 Flow Rate (L/min): n/a Physical Exam Vitals and nursing note reviewed. Constitutional: General: He is not in acute distress. Appearance: He is well-developed. He is not diaphoretic. HENT: Head: Normocephalic and atraumatic. Nose: Nose normal. Mouth/Throat: Mouth: Mucous membranes are moist. Pharynx: Oropharynx is clear. No oropharyngeal exudate. Eyes: General: Right eye: No discharge. Left eye: No discharge. Extraocular Movements: Extraocular movements intact. Conjunctiva/sclera: Conjunctivae normal. Pupils: Pupils are equal, round, and reactive to light. Cardiovascular: Rate and Rhythm: Normal rate and regular rhythm. Pulses: Normal pulses. Heart sounds: Normal heart sounds. No murmur. Pulmonary: Effort: Pulmonary effort is normal. No respiratory distress. Breath sounds: Normal breath sounds. No wheezing or rales. Abdominal: General: Abdomen is flat. Bowel sounds are normal. There is no distension. Palpations: Abdomen is soft. Tenderness: There is no abdominal tenderness. There is no guarding. Musculoskeletal: Cervical back: Normal range of motion and neck supple. No tenderness. Right lower leg: No edema. Left lower leg: No edema. Skin: General: Skin is warm and dry. Findings: No rash. Neurological: Mental Status: He is alert. Sensory: No sensory deficit. Motor: No weakness. Comments: Equal strength in the upper and lower extremities bilaterally. A&O x2. Baseline. Slight tremor ED Course: I have reviewed labs and imaging, images and available reports, and they are significant for: No focal neurologic deficits on exam. No significant leukocytosis. Minimal anemia. No significant electrolyte abnormalities. Kidney function normal. LFTs normal. UA shows potential evidence of infection with positive nitrites but minimal bacteria or white blood cells. We will treat with Keflex, however I do not believe that this is causing his weakness or inability to ambulate, but could potentially be contributing to his deconditioning. He was evaluated by neurology who does not recommend changes to his Parkinson's meds, gabapentin, or further work-up for meningitis/encephalitis. CT head and C-spine showed no acute fracture or dislocation. X-ray of the pelvis bilaterally given bilateral hip pain showed no acute fractures. He is able to stand and bear weight, but unable to walk significantly at this time. Less likely occult fracture. Patient's weakness and decreased ambulation likely related to his postherpetic infection pain. UA does show a degree of dehydration which could be contributing to his symptoms and patient will be rehydrated. case discussed with Dr. Oneil who agrees with admission to CDU for frailty protocol. Last 3 wbc, hgb, hct plt Recent Labs 12/20/20 1535 WBC 10.0* HGB 12.2* HCT 36.0* PLATELET 198 Last 3 Lytes Recent Labs 12/20/20 1535 NA 142 K 3.9 CL 104 CO2 24 BUN 14 CREATININE 1.01 GLUCOSE 157 Last 3 LFTs Recent Labs 12/20/20 1535 AST 35 ALT 18 ALKPHOS 113 BILITOT 0.7 BILIDIR 0.2 Last UA Recent Labs 12/20/20 1830 PHUADIP 5.0 SPGRAVITYUA >=1.030* BLOODUADIP Negative KETONESUA 15* GLUCOSEU Negative PROTEINUADIP 30* BILIRUBINUA Small* UROBILIUADIP Normal NITRATEUA Positive* LEUKOESTERUA Trace* Last Urine Micro Recent Labs 12/20/20 1830 RBCU 4* WBCUA 3 BACTERIAUA Rare* SQUAMEPIUA 1 HYALCAST 11* I reviewed the EKG tracing: Rhythm: NSR Rate: 68 Relevant findings: none XR Pelvis & Lat Hip Bilat Final Result No fracture or dislocation of the right or left hip joints. I have personally reviewed the image(s) and the resident's interpretation and agree with the findings, Daniela Barone MD at 12/20/2020 7:42 PM Thank you for letting us participate in the care of this patient. If you are a health care provider and have any questions regarding this report, please contact the number below. For patients who have questions please contact the health occasional caregiver that requested your imaging first. Electronically signed by: Daniela Barone MD, [facility] ([phone]), at 12/20/2020 7:42 PM XR Pelvis and Hip [address] Head & Cervical Spine wo Contrast (Generic) Final Result 1. No intracranial hemorrhage or calvarial fracture. 2. No acute cervical spine fracture. Thank you for letting us participate in the care of this patient. If you are a health care provider and have any questions regarding this report, please contact the number below. For patients who have questions please contact the health occasional caregiver that requested your imaging first. Procedures Assessment and Plan: 65 y.o. male with frailty, weakness, frequent falls, and mild UTI. Patient is overall well-appearing. Vital signs normal. No focal neurologic deficits. Given reassuring neuro exam with neurology evaluation and likely source of his debility being recent herpes zoster infection with residual pain, patient will be admitted to the CDU for PT OT evaluation in the morning and discharged to acute rehab. PT OT in a.m. Case management arranging rehab stay- will go to Rehab after pt/ot eval Discharge to rehab via BLS Cephalexin QID for UTI- prescription sent NS maintenance fluids overnight The visit findings, diagnosis, and care plan were discussed with the patient. CDU Protocol: Daniel Velasco PA 12/20/202056 Associated attestation - Domingo Aguilera MD - 12/21/2020 2:37 PM EDT ED ATTENDING ATTESTATION NOTE The patient was seen in conjunction with the GLEN I have independently performed the melton portions of the history and physical exam. I have reviewed the nursing notes, vital signs, and all diagnostic studies personally including labs, imaging studies and EKGs. I have discussed the details of the case with the GLEN and agree with the assessment and plan as described in his note unless noted otherwise. Brief Summary: I was asked to see this patient by associate provider Rohan. Patient is a [id number] with Parkinson's and a 2-week history of shingles involving the right lower extremity and 2-week history of difficulty walking and falls associated with apparent right lower extremity weakness. Patient has been on gabapentin for 4 days and brings him in now for difficulty managing him secondary to confusion and gait instability. On exam, patient is slow to respond but appropriate and nontoxic. There is evidence of resolving shingles on the right lower extremity but distal sensorimotor examis otherwise unremarkable. Work-up includes unremarkable labs (UA pending), negative x-rays, normal head and neck CT. Final Assessment: Gait instability and worsening confusion. Suspect shingles and gabapentin superimposed on Parkinson's disease. No evidence of other worrisome acute DOOR PATCHER event or localized infection atthis time. Anticipate observation emergency department overnight with rehab placement tomorrow if possible. Addendum: Patient's confusion increased during his ED stay. Hospital medicine consulted for possibleadmission for delirium superimposed on conditions noted above. documented in this encounter Miscellaneous Notes Plan of Care - Jenny Alonso RN - 12/23/2020 12:03 PM EDT OUTCOME EVALUATION NOTE: OUTCOME SUMMARY: Alert but only oriented to self and intermittently to place. VSS on RA. Assessment as documented. Ptreports pain with intermittent tremors, PRN tylenol given. Pt reports no SOB and no numbness or tingling. BG monitored and insulin given per order. Safety maintained. Pt due to be transferred to [facility] today. PLAN MOVING FORWARD: Transfer to [facility]. Safety. Monitor VS. Monitor BG. Reorient. INDIVIDUALIZED FALL PREVENTION INTERVENTIONS: Patient-specific fall risk factors per assessment: [current deficits]: IV. Weakness. Tremors. Confusion. Assistance [level of assistance required for transfers and ambulation]: 2A w/ walker Supervision [direct monitoring required during toileting and ADLs]: Hands on Surveillance [continuous indirect monitoring]: Masimo. Room near nursing station. Call white within reach. Bed alarm. Patient-specific fall prevention interventions for sensory deficits provided, if applicable: [X] Yes CPG GOAL OUTCOME EVALUATION: Plan of Care - Sandro Gan RN - 12/22/2020 10:58 PM EDT OUTCOME EVALUATION NOTE: OUTCOME SUMMARY: Alert and oriented xto self only, confused. Able to be redirected, and resting comfortably in bed after nighttime meds. VSS on RA. Physical assessment as documented. Scheduled Meds And insulin given per OCT. PRN tylenol given x1 for gen discomfort. Voiding adequate amounts bright yellow urine, incontinent, urinal at bedside. No acute events, will continue to monitor and page MD with updates. PLAN MOVING FORWARD: Reorientation PRN, Abx course to finish 12/26, dc planning INDIVIDUALIZED FALL PREVENTION INTERVENTIONS: Patient-specific fall risk factors per assessment: [current deficits]: Gen weakness, IV access, hospenvironment Assistance [level of assistance required for transfers and ambulation]: 2A FWW Supervision [direct monitoring required during toileting and ADLs]: SBA Surveillance [continuous indirect monitoring]: Call white within reach, bed alarm on, room near nurses station, masimo on, hourly rounding utilized. Patient-specific fall prevention interventions for sensory deficits provided, if applicable: [X] Yes CPG GOAL OUTCOME EVALUATION: Plan of Care - Elen Bush RN - 12/22/2020 4:50 PM EDT OUTCOME EVALUATION NOTE: OUTCOME SUMMARY: PT had a good day today. Pt was mostly alert to himself and location, occasionally to events and time with prompting. Pt was easily redirected twice today. Pt was NPO in the morning but this was changed to CC diet for the afternoon and evening. Pt able to eat about 50% of lunch and dinner; carb coverage provided. PT worked with PT/OT today. Provider team met with patient and determined he had a UTI and abx was ordered and administered. Pts was at bedside in the evening. No SOB or difficulty breathing noted, no n/v/d noted. No neurological events noted or than occasional Parkinsonian tremors that are worse than baseline.. VSS, WCTM. Timbo Su transferred to [id number]. Report called to 1E. All belongings and medications sent with patient. IV site CDI, skin free from pressure ulcers. Family notified of transfer. PLAN MOVING FORWARD: D/C in the next day or two INDIVIDUALIZED FALL PREVENTION INTERVENTIONS: Patient-specific fall risk factors per assessment: AMS, Parkinsons Assistance: 1-2 assist, Mechanical Lift Supervision: Hands on Surveillance: Bed locked in low position, call white within reach, purposeful hourly rounding, clutter free environment, bed/chair alarm on Patient-specific fall prevention interventions for sensory deficits provided: no CPG GOAL OUTCOME EVALUATION: Continue care plan as documented. Consult Note - Bennett Lui MD - 12/22/2020 9:14 AM EDT Images from the original note were not included. Admit Date 12/20/2020 ( Hospital Day 1 day ) Responsible Attending: Renny Reyes MD Primary Provider: Griselda Stanley MD [phone] Consult Question Falls Patient ID 65 yo M with pmhx Parkinsons s/p DBS, HTN, DM, presenting with two weeks of lethargy and increased falls. Interval Events - NAEO - LP deferred based on discussions with primary team yesterday ROS (+) As per HPI ROS (-) weight loss, fevers, chills, night sweats, headache, photophobia, rhinitis, sore throat, neck stiffness, chest pain, cough, dyspnea, abdominal pain, nausea, vomiting, diarrhea, hematemesis, hematochezia, melena, dysuria, edema. No Known Allergies History reviewed. No pertinent past medical history. Past Surgical History: Procedure Laterality Date ??? CHOLECYSTECTOMY ??? HIP SURGERY as a child ??? PRO APPLY/REMOVE CRANIAL FIX DEV Bilateral 06/10/2017 PLACEMENT-STARFIX FIDUCIALS (WRVU 4) performed by Randall Sapp MD at [facility] ? ? PRO IMP STIM, CRANIAL, SUBQ, >1 ARRAY Bilateral 06/24/2017 PLACEMENT ADD'L CRANIAL NEUROSTIMULATOR (WRVU 9.93) performed by Randall Sapp MD at [facility] ? ? PRO IMP STIM, CRANIAL, SUBQ, >1 ARRAY Left 09/21/2020 PLACEMENT ADD'L CRANIAL NEUROSTIMULATOR (WRVU 9.93) performed by Randall Sapp MD at [facility] ??? PRO IMPLANT NEUROELECTRDE, ADDL N/A 06/17/2017 @IMPLANTATION OF ADD'L NEUROSTIMULATOR ELECTRODE (WRVU 7.91) performed by Randall Sapp MD at [facility] ??? PRO IMPLANT NEUROELECTRODE Bilateral 06/17/2017 @IMPLANTATION OF NEUROSTIMULATOR ELECTRODE-RUBY (WRVU 33.03) performed by Randall Sapp MD at [facility] History reviewed. No pertinent family history. Social History Socioeconomic History ??? Marital status: Spouse name: Not on file ??? Number of children: Not on file ??? Years of education: Not on file ??? Highest education level: Not on file Occupational History ??? Not on file Tobacco Use ??? Smoking status: Former Smoker Types: Cigarettes Quit date: 12/10/1977 Years since quittin.0 ??? Smokeless tobacco: Never Used Substance and Sexual Activity ??? Alcohol use: No ??? Drug use: No ??? Sexual activity: Not on file Comment: Deferred Other Topics Concern ??? Not on file Social History Narrative Lived in [place], moved to [place] 1980. Social Determinants of Health Financial Resource Strain: ??? Difficulty of Paying Living Expenses: Food Insecurity: ??? Worried About Running Out of Food in the Last Year: ??? Ran Out of Food in the Last Year: Transportation Needs: ??? Lack of Transportation (Medical): ??? Lack of Transportation (Non-Medical): Physical Activity: ??? Days of Exercise per Week: ??? Minutes of Exercise per Session: Stress: ??? Feeling of Stress : Social Connections: ??? Frequency of Communication with Friends and Family: ??? Frequency of Social Gatherings with Friends and Family: ??? Attends Restoration Services: ??? Active Member of Clubs or Organizations: ??? Attends Club or Organization Meetings: ??? Marital Status: Intimate Partner Violence: ??? Fear of Current or Ex-Partner: ??? Emotionally Abused: ??? Physically Abused: ??? Sexually Abused: Physical Exam BP 146/79 (BP Location (NBP): Right arm, Patient Position: Lying) Pulse 89 Temp 36.4 ??C (97.5 ??F) (Temporal) Resp 16 Ht 182.9 cm (6' 0.01) Wt 107.5 kg (236 lb 15.9 oz) SpO2 95% BMI 32.14 kg/m?? Gen: Patient of apparent stated age, well nourished, well developed, awake, alert, NAD Neck: Supple, no meningismus Resp: normal respiratory effort Abd: soft, nontender, nondistended Ext: No edema. No bony deformity Neuro Exam: MS: AAOx - self, place, month, year, not day of motnh, clear language, no dysarthria, follows commands, slow to speak CN: PERRL, EOMI, visual ward full Facial sensation intact, no facial asymmetry Hearing intact to conversation Palate elevates symmetrically, tongue protrudes midline SCM and trap strength intact Motor: Normal bulk, cogwheel rigidity Segment Muscle Action Left Right C5 Deltoid Shoulder Abduction 5 5 C6 Biceps Elbow flexion 5 5 C6 Extensor carpi radialis Wrist extension 5 5 C7 Triceps Elbow extension 5 5 C8 Finger flexors Grasp 5 5 T1 Interossei Finger abduction 5 5 L2 Iliopsoas Hip flexion 5- 5- L3 Quadriceps Knee extension 5 5 L4 Tibialis anterior Dorsiflexion 5 5 L5 Extensor hallucis Great toe extension 5 5 S1 Gastrocnemius Plantar flexion 5 5 Sensation: Intact to light touch, throughout Reflexes: DTRs Deferred today Toes - R down, L down Coordination: Finger to nose intact, no dysmetria Rapid alternating movements & finger taps slowed Resting tremor Gait: Deferred Weight: Patient Vitals for the past 168 hrs: Weight 12/22/20 0202 107.5 kg (236 lb 15.9 oz) 12/20/20 1412 107.5 kg (237 lb) Intake/Output Trend: I/O last 3 completed shifts: In: 1305 [I.V.:1255; IV Piggyback:50] Out: 350 [Urine:350] No intake/output data recorded. Scheduled Meds: ??? atorvastatin 10 mg Oral QPM ??? carbidopa-levodopa 1 tablet Oral 4 Times Daily ??? DULoxetine DR 60 mg Oral TID ??? entacapone 200 mg Oral TID ??? metoprolol succinate XL 100 mg Oral Daily ??? insulin lispro 1-4 Units Subcutaneous Q4H ENA ??? insulin lispro 0-8 Units Subcutaneous TID WC Continuous Infusions: PRN Meds:.acetaminophen, melatonin, glucose 40% oral geL OR dextrose 10% OR glucagon BMP Recent Labs 12/20/20 2224 12/20/20 1535 NA 141 142 K 3.5 3.9 CL 106 104 CO2 24 24 BUN 13 14 CREATININE 0.85 1.01 GLUCOSE 174 157 Recent Labs 12/20/20 2224 12/20/20 1535 CALCIUM 8.7 9.4 CBC Recent Labs 12/20/204 12/20/20 1535 WBC 8.1 10.0* HGB 11.1* 12.2* HCT 32.3* 36.0* PLATELET 167 198 MCV 86.6 86.3 NEUTROABS 4.70 6.43* Hepatic Function Tests and Coags Recent Labs 12/20/20 1535 AST 35 ALT 18 ALKPHOS 113 BILITOT 0.7 BILIDIR 0.2 Recent Labs 12/22/20 0506 12/20/20 2224 INR 1.2 1.1 PT 13.8* 12.8* PTT 29 -- Diabetes and Lipids No results for input(s): HA1C, XGFMP4H, NGE3KXXA, LABGLUC2, MICROALBUR in the last 168 hours. No results for input(s): CHLPL, HDL, TRIG, LDLDIRECT in the last 168 hours. Additional Testing No results for input(s): PHART, VVL2KKQ, PO2ART, ATN4VAM in the last 168 hours. No results for input(s): LDH, HAPTOGLOBIN, URICACID in the last 168 hours. Micro Microbiology Results (Last 30 days) Procedure Component Value Units Date/Time COVID-19 PCR [[id number]] Collected: 12/21/20 0201 Lab Status: Final result Specimen: Nasopharyngeal Swab Updated: 12/21/20 0419 Rapid SARS-CoV-2 RNA Not Detected Comment: This result should be interpreted in combination with the clinical observations, patient history and epidemiological information. For testing of asymptomatic individuals, assay performance characteristics and clinical utility have not been evaluated. Testing for SARS-CoV-2 (Severe acute respiratory syndrome coronavirus 2, formerly known as 2019 novel coronavirus or 2019-nCoV) to aid in the diagnosis of COVID-19 is performed using the Simplexa COVID-19 Direct Assay by [employer] as authorized by the FDA issued Emergency Use Authorization (EUA). This assay is intended for In-vitro Diagnostic (IVD) use with nasopharyngeal swabs collected from individuals meeting the CDC criteria for testing. The assay is performed based on the instructions for use and additional guidance provided by the FDA. Testing is performed in the Microbiology Laboratory within the Department of Pathology and Laboratory Medicine at [facility], certified under the Clinical Laboratory Improvement Amendments of 1988 (CLIA), 42 U.S.C. section 263a, to perform high complexity tests. Assay performance has been verified according to clinical laboratory regulatory requirements. Test results are provided above. A result of Not Detected indicates that the viral RNA target is not present but does not preclude SARS-CoV-2 infection. False negative results may occur if a specimen is improperly collected, transported or handled; if amplification inhibitors are present; or if inadequate numbers of viral particles are present in the specimen. A result of Detected suggests a current or recent infection and the patient is presumed to be infected. Positive and negative predictive values for this test are highly dependent on disease prevalence. A result of Invalid indicates the inability to conclusively determine the presence or absence of SARS-CoV-2 RNA in the sample which can be due to a variety of factors. Recollection is recommended in the case of an invalid result. CDC COVID-19 criteria for testing on human specimens and clinical management guidance information are available at the CDC Coronavirus Disease 2019 (COVID-19) webpage under Information for Healthcare Professionals (https://www.cdc.gov/coronavirus/2019-ncov/hcp/index.html). Additional information about this and other EUA tests can be found in provider and patient fact sheets at the following FDA website: https://www.fda.gov/medical-devices/iftxfsvpcdm-vtaasna-1436-lthhd-22-prksoaorw- btu-qaxtbkxxaphtsx-deetlrz-devices/lbrmo-uyvxycgljwc-yzzw SARS-CoV-2 Source [employer] Swab COVID-19 PCR [[id number]] Collected: 12/20/20 1734 Lab Status: Final result Specimen: Nasopharyngeal Swab Updated: 12/20/202101 Rapid SARS-CoV-2 RNA Not Detected Comment: This result should be interpreted in combination with the clinical observations, patient history and epidemiological information. For testing of asymptomatic individuals, assay performance characteristics and clinical utility have not been evaluated. Testing for SARS-CoV-2 (Severe acute respiratory syndrome coronavirus 2, formerly known as 2019 novel coronavirus or 2019-nCoV) to aid in the diagnosis of COVID-19 is performed using the Simplexa COVID-19 Direct Assay by [employer] as authorized by the FDA issued Emergency Use Authorization (EUA). This assay is intended for In-vitro Diagnostic (IVD) use with nasopharyngeal swabs collected from individuals meeting the CDC criteria for testing. The assay is performed based on the instructions for use and additional guidance provided by the FDA. Testing is performed in the Microbiology Laboratory within the Department of Pathology and Laboratory Medicine at [facility], certified under the Clinical Laboratory Improvement Amendments of 1988 (CLIA), 42 U.S.C. section 263a, to perform high complexity tests. Assay performance has been verified according to clinical laboratory regulatory requirements. Test results are provided above. A result of Not Detected indicates that the viral RNA target is not present but does not preclude SARS-CoV-2 infection. False negative results may occur if a specimen is improperly collected, transported or handled; if amplification inhibitors are present; or if inadequate numbers of viral particles are present in the specimen. A result of Detected suggests a current or recent infection and the patient is presumed to be infected. Positive and negative predictive values for this test are highly dependent on disease prevalence. A result of Invalid indicates the inability to conclusively determine the presence or absence of SARS-CoV-2 RNA in the sample which can be due to a variety of factors. Recollection is recommended in the case of an invalid result. CDC COVID-19 criteria for testing on human specimens and clinical management guidance information are available at the CDC Coronavirus Disease 2019 (COVID-19) webpage under Information for Healthcare Professionals (https://www.cdc.gov/coronavirus/2019-ncov/hcp/index.html). Additional information about this and other EUA tests can be found in provider and patient fact sheets at the following FDA website: https://www.fda.gov/medical-devices/ehhihyofrbf-eiuinea-0768-aexzq-49-nbcqhbuyx- lhs-xgerglkceycohf-wmgjerv-devices/apcgb-hyyhwntagvy-nhde SARS-CoV-2 Source [employer] Swab Imaging/EKG CT Head & Cervical Spine wo Contrast (Generic): 12/20/2020 1. No intracranial hemorrhage or calvarial fracture. 2. No acute cervical spine fracture. Assessment/Plan 65 yo M with pmhx Parkinsons s/p DBS, HTN, DM, presenting with two weeks of lethargy and increased falls. Exam is reassuring at this point, no clear suspicion for myelopathy or encephalitis. It appearsto be an progressive worsening course, perhaps related to occult infection or UTI. He has follow up i n two weeks with Dr. Hooper for his Parkinsons disease. It is unclear if his DBS and neurostimulator can be cleared for MRI however this is not needed at this point. If he worsens clinically and there is further concern for an encephalitis he is off his blood thinner and LP would be reasonable. # Falls # Worsening hallucinations in setting of UTI - PT/OT - further treatment of UTI per primary team - we will sign off at this time - follow up as previously anticipated with Dr. Hooper - update on rounds - please send TSH, B12, thiamine as part of full encephalopathy workup Bennett Lui PGY-3 Neurology Consult Pager #[phone] Associated attestation - Rober Pinedo MD - 12/22/2020 3:11 PM EDT I have seen the patient and reviewed the resident's above history and I agree with the details as written. The assessment and plan were formulated in discussion with me and I agree with them as documented. Also would recommend, mag, phos, and ammonia levels and IV thiamine replacement. Rober Pinedo MD Consult Note - Bennett Lui MD - 12/20/2020 7:01 PM EDT Images from the original note were not included. Admit Date 12/20/2020 ( Hospital Day 0 days ) Responsible Attending: No att. providers found Primary Provider: Griselda Stanley MD [phone] Consult Question Falls Patient ID 65 yo M with pmhx Parkinsons s/p DBS, HTN, DM, presenting with two weeks of lethargy and increased falls. History of Presenting Illness Falls started two weeks ago, mostly as he is rising from sitting to standing, seems as if he falls to the right more often. Legs feel a bit weak bilaterally, he is not dragging his feet or tripping on things. He has some lower back pain and R hip pain but this is chronic and does not appear particularly worse. He had shingles two weeks ago in a R sided L5 or S1 distribution which was treated with acyclovir. He has had some worsening hallucinations - thinking people are tearing down the house in the past three days or so. No headache, no significant worsening of baseline tremor, no neck stiffness, no fevers. At baseline he is able to walk maybe half a mile and use an exercise bike. The only new medication he has been taking is gabapentin for post-herpetic neuralgia, he feels it has been helping. No fecal or urinary incontinence, has chronic constipation. He has stopped his rivaroxaban as they were told by primary care said this was carlos- procedural afib. ROS (+) As per HPI ROS (-) weight loss, fevers, chills, night sweats, headache, photophobia, rhinitis, sore throat, neck stiffness, chest pain, cough, dyspnea, abdominal pain, nausea, vomiting, diarrhea, hematemesis, hematochezia, melena, dysuria, edema. No Known Allergies History reviewed. No pertinent past medical history. Past Surgical History: Procedure Laterality Date ??? CHOLECYSTECTOMY ??? HIP SURGERY as a child ??? PRO APPLY/REMOVE CRANIAL FIX DEV Bilateral 06/10/2017 PLACEMENT-STARFIX FIDUCIALS (WRVU 4) performed by Randall Sapp MD at [facility] ? ? PRO IMP STIM, CRANIAL, SUBQ, >1 ARRAY Bilateral 06/24/2017 PLACEMENT ADD'L CRANIAL NEUROSTIMULATOR (WRVU 9.93) performed by Randall Sapp MD at [facility] ? ? PRO IMP STIM, CRANIAL, SUBQ, >1 ARRAY Left 09/21/2020 PLACEMENT ADD'L CRANIAL NEUROSTIMULATOR (WRVU 9.93) performed by Randall Sapp MD at [facility] ??? PRO IMPLANT NEUROELECTRDE, ADDL N/A 06/17/2017 @IMPLANTATION OF ADD'L NEUROSTIMULATOR ELECTRODE (WRVU 7.91) performed by Randall Sapp MD at [facility] ??? PRO IMPLANT NEUROELECTRODE Bilateral 06/17/2017 @IMPLANTATION OF NEUROSTIMULATOR ELECTRODE-RUBY (WRVU 33.03) performed by Randall Sapp MD at [facility] History reviewed. No pertinent family history. Social History Socioeconomic History ??? Marital status: Spouse name: Not on file ??? Number of children: Not on file ??? Years of education: Not on file ??? Highest education level: Not on file Occupational History ??? Not on file Tobacco Use ??? Smoking status: Former Smoker Types: Cigarettes Quit date: 12/10/1977 Years since quittin.0 ??? Smokeless tobacco: Never Used Substance and Sexual Activity ??? Alcohol use: No ??? Drug use: No ??? Sexual activity: Not on file Comment: Deferred Other Topics Concern ??? Not on file Social History Narrative Lived in [place], moved to [place] 1980. Social Determinants of Health Financial Resource Strain: ??? Difficulty of Paying Living Expenses: Food Insecurity: ??? Worried About Running Out of Food in the Last Year: ??? Ran Out of Food in the Last Year: Transportation Needs: ??? Lack of Transportation (Medical): ??? Lack of Transportation (Non-Medical): Physical Activity: ??? Days of Exercise per Week: ??? Minutes of Exercise per Session: Stress: ??? Feeling of Stress : Social Connections: ??? Frequency of Communication with Friends and Family: ??? Frequency of Social Gatherings with Friends and Family: ??? Attends Restoration Services: ??? Active Member of Clubs or Organizations: ??? Attends Club or Organization Meetings: ??? Marital Status: Intimate Partner Violence: ??? Fear of Current or Ex-Partner: ??? Emotionally Abused: ??? Physically Abused: ??? Sexually Abused: Physical Exam BP 123/71 Pulse 71 Temp 36.7 ??C (98 ??F) (Temporal) Resp 18 Wt 107.5 kg (237 lb) SpO2 95% BMI 32.14 kg/m?? Gen: Patient of apparent stated age, well nourished, well developed, awake, alert, NAD Neck: Supple, no meningismus Resp: normal respiratory effort Abd: soft, nontender, nondistended Ext: No edema. No bony deformity Neuro Exam: MS: AAOx4, clear language, no dysarthria, follows commands, slow to speak CN: PERRL, EOMI, visual ward full Facial sensation intact, no facial asymmetry Hearing intact to conversation Palate elevates symmetrically, tongue protrudes midline SCM and trap strength intact Motor: Normal bulk, cogwheel rigidity Segment Muscle Action Left Right C5 Deltoid Shoulder Abduction 5 5 C6 Biceps Elbow flexion 5 5 C6 Extensor carpi radialis Wrist extension 5 5 C7 Triceps Elbow extension 5 5 C8 Finger flexors Grasp 5 5 T1 Interossei Finger abduction 5 5 L2 Iliopsoas Hip flexion 5 5 L3 Quadriceps Knee extension 5 5 L4 Tibialis anterior Dorsiflexion 5 5 L5 Extensor hallucis Great toe extension 5 5 S1 Gastrocnemius Plantar flexion 5 5 Sensation: Intact to light touch, throughout Reflexes: DTRs 1+ R, 1+ L Biceps 1+ R, 1+ L Brachioradialis 1+ R, 1+ L Triceps 1+ R, 1+ L Patellar 1+ R, 1+ L Achilles tendon Vieira's negative bilaterally Toes - R down, L down Coordination: Finger to nose intact, no dysmetria Rapid alternating movements & finger taps slowed Resting tremor Gait: Deferred Weight: Patient Vitals for the past 168 hrs: Weight 12/20/20 1412 107.5 kg (237 lb) Intake/Output Trend: No intake/output data recorded. No intake/output data recorded. Scheduled Meds: ??? sodium chloride 0.9 % (flush) 5 mL Intravenous BID ??? carbidopa-levodopa 1 tablet Oral Once Continuous Infusions: PRN Meds:.sodium chloride 0.9 % (flush), lidocaine BMP Recent Labs 12/20/20 1535 NA 142 K 3.9 CL 104 CO2 24 BUN 14 CREATININE 1.01 GLUCOSE 157 Recent Labs 12/20/20 1535 CALCIUM 9.4 CBC Recent Labs 12/20/20 1535 WBC 10.0* HGB 12.2* HCT 36.0* PLATELET 198 MCV 86.3 NEUTROABS 6.43* Hepatic Function Tests and Coags Recent Labs 12/20/20 1535 AST 35 ALT 18 ALKPHOS 113 BILITOT 0.7 BILIDIR 0.2 No results for input(s): INR, PT, PTT in the last 72 hours. Diabetes and Lipids No results for input(s): HA1C, FSWPB7T, UAK7ZUDS, LABGLUC2, MICROALBUR in the last 168 hours. No results for input(s): CHLPL, HDL, TRIG, LDLDIRECT in the last 168 hours. Additional Testing No results for input(s): PHART, GIN2JHH, PO2ART, URD9GDI in the last 168 hours. No results for input(s): LDH, HAPTOGLOBIN, URICACID in the last 168 hours. Micro Microbiology Results (Last 30 days) No results found for the last 720 hours. Imaging/EKG CT Head & Cervical Spine wo Contrast (Generic): 12/20/2020 1. No intracranial hemorrhage or calvarial fracture. 2. No acute cervical spine fracture. Assessment/Plan 65 yo M with pmhx Parkinsons s/p DBS, HTN, DM, presenting with two weeks of lethargy and increased falls. Exam is reassuring at this point, no clear suspicion for myelopathy or encephalitis. It appearsto be an progressive worsening course, perhaps related to occult infection or UTI. He has follow up i n two weeks with Dr. Hooper for his Parkinsons disease. It is unclear if his DBS and neurostimulator can be cleared for MRI however this is not needed at this point. If he worsens clinically and there is further concern for an encephalitis he is off his blood thinner and LP would be reasonable. #Falls - PT/OT for falls - evaluate for underlying infection - no further recommendations regarding intracranial or spinal imaging. Bennett Lui PGY-3 Neurology Consult Pager #[phone] Initial Assessments - Arelis Capone RN - 12/20/2020 5:36 PM EDTSummary: KULWINDER initial assessment Office of Care Management Initial Assessment Arelis Capone RN reviewed record and discussed patient with Care Team. Source of Information: Pt, , medical record, and team Introduced self/reviewed role; services accepted. Reason for Hospitalization: Pt presents to the ED d/t multiple falls at home. Pt has a hx of Parkinson's (25years) and a recent hx of Shingles. Per pt fell down 3 times this am. Last COVID test date and time: Lab Results Component Value Date COVID19 Not Detected 12/27/2019 History reviewed. No pertinent past medical history. Hospitalizations Within the Past 30 Days: none Anticipated Length Of Stay (If known): unknown, pt is being worked up in the ED. Current Decision-Making Capacity: self Advance Care Planning: No. Discussed with patient importance and process for doing Advance Directives. Provided copy(ies) of [place] [employer] Advance Directives Taking Steps booklet with forms to boththe pt and . Explained to pt and . If AD's have not been completed Gwen Su (spouse) would be surrogate decision maker per [place] surrogate decision making law. (Only good for 90 days) Any patient receiving care at [facility] must abide by [place] law. The hierarchy for surrogate decision making is: (a) Patient???s spouse, or civil union partner or common law spouse unless there is a divorce proceeding, separation agreement, or restraining order limiting that person???s relationship with the patient. (b) Any adult son or daughter of the patient. (c) Either parent of the patient. (d) Any adult brother or sister of the patient. (e) Any adult grandchild of the patient. (f) Any grandparent of the patient. (g) Any adult aunt, uncle, niece, or nephew of the patient. (h) A close friend of the patient. (i) The agent with financial power of trade mark attorney or a conservator appointed in accordance with RSA 464-A. (j) The guardian of the patient???s estate. Current Coping/Education/Information Needs: Pt and are still awaiting the decision from the MD. Current Functional Ability: Pt is now falling when ambulating with a FWW. Pt will require an eval from PT and OT. Functional Status Prior to Admission: Prior to illness pt was able to be pretty independent without an assistive device or a cane. Pt's just recently bought a FWW for the pt. Home Environment: Pt lives with his in a mobile home with 5 steps going in. Per , son is supposed to build a ramp to assist the pt. Social & Family Supports/Community Resources: Pt and have only the 1 son, Óscar, and he lives 1hr [place] 20 min away. Spoke to about needing to plan if the pt would require more help as the Parkinson's progresses. She said that this incident is an eye [employer] assistant and will start to formulate a plan with her son and pt. Spoke to her about Medicare coverage and looking into hiring caregivers. Behavioral Health History: none noted Substance Use/Abuse: none noted Other Pertinent/Service Specific Information: Pt has a deep brain stimulator for his Parkinson's. Health/Prescription Coverage: Primary Insurance: MEDICARE Secondary Insurance: [employer] Prescription Coverage: yes Preferred Pharmacy: [facility], [place], [place] Other: none Primary Care Provider: Griselda Stanley MD [phone] Patient/Caregiver Goals of Treatment: Pt and would like the pt to go to rehab post discharge d/t pt's weakness. Potential Needs for Transition of Care: Rehab/SNF: Pt may benefit from Acute Rehab Home Health: none DME: none Dialysis: none Community Resources: none Transportation: Gwen (pt's ) Other: none Anticipated Barriers to Discharge/Special Considerations: None observed at this moment. Assessment: Pt is still being worked up in the ED. Pt will benefit from Acute Rehab d/t being independent prior to illness. Plan: Pt will need a PT and OT eval and be evaluated by the ED MD for possible admission. A member of the Care Management team will continue to monitor progress, follow for continuity of care and assist with transition of care planning. Arelis Capone RN Pager: [phone] Associate Provider Student Progress Note - Mai Latif - 12/20/2020 3:32 PM EDT ED GLEN Student Note HPI: Timbo Su is a 65 y.o. male who presents to the Emergency Department with progressive weakness and falls x 2 weeks. He has fallen 3 times this morning with the latest being unwitnessed and admits to hitting his head, denies LOC. He was diagnosed with shingles 2 weeks ago and started on an antiviral medication, which he finished a week ago. He has a PMH of Parkinson's on Sinemet and s/p DBS placement, diabetes on Metformin and glipizide with fasting blood sugars around 186. He denies fever, chills, nausea, vomiting, headache, vision changes, chest pain, shortness of breath, or dysuria. Goals of Care: Patient's concerns / fears at todays visit are symptoms will get worse. Patient's expectations/hopes at today's visit are testing / diagnosis. Review of Systems Constitutional: Positive for activity change (unable to ambulate independently; worsening x 2 weeks). Negative for chills and fever. HENT: Negative for ear pain, nosebleeds, sore throat, tinnitus and trouble swallowing. Eyes: Negative for discharge, redness and visual disturbance. Respiratory: Negative for cough and shortness of breath. Cardiovascular: Negative for chest pain and palpitations. Gastrointestinal: Negative for abdominal pain, diarrhea, nausea and vomiting. Genitourinary: Negative for difficulty urinating and dysuria. Musculoskeletal: Negative for arthralgias, neck pain and neck stiffness. Skin: Positive for rash (right LE. dx w/Shingles 2 wks ago). Negative for pallor. Allergic/Immunologic: Negative for environmental allergies and food allergies. Neurological: Positive for dizziness and numbness (b/l feet; diabetic neuropathy). Negative for seizures, syncope, facial asymmetry and headaches. Psychiatric/Behavioral: Positive for confusion (A&O to person and place; at baseline) and hallucinations (visual; since Saturday/starting Gabapentin). Negative for behavioral problems. Pertinent positives and negatives are included in the HPI, otherwise at least ten systems were reviewed and negative. Past Medical and Surgical Histories, Social History, Medications, Allergies were reviewed in the chart. Vitals: ED Triage Vitals [12/20/20 1412] BP: 110/84 Heart Rate: 71 Resp: 16 Temp: 36.7 ??C (98 ??F) Temp src: Temporal SpO2: 98 % O2 Device: RA O2 Flow Rate (L/min): n/a Physical Exam Constitutional: Appearance: He is ill-appearing. HENT: Head: Normocephalic. Nose: Nose normal. Mouth/Throat: Mouth: Mucous membranes are moist. Pharynx: Oropharynx is clear. Eyes: Extraocular Movements: Extraocular movements intact. Conjunctiva/sclera: Conjunctivae normal. Pupils: Pupils are equal, round, and reactive to light. Cardiovascular: Rate and Rhythm: Normal rate and regular rhythm. Pulses: Normal pulses. Heart sounds: Normal heart sounds. Pulmonary: Effort: Pulmonary effort is normal. Breath sounds: Normal breath sounds. Musculoskeletal: General: Tenderness (Left hip) present. No deformity. Right lower leg: No edema. Left lower leg: No edema. Skin: General: Skin is warm and dry. Findings: Rash (right LE; dx w/Shingles) present. Neurological: Mental Status: He is alert. Mental status is at baseline. Cranial Nerves: No cranial nerve deficit. Gait: Gait abnormal. Psychiatric: Mood and Affect: Mood normal. Behavior: Behavior normal. ED Course: I have reviewed labs and imaging, images and available reports, and they are significant for: Last 3 wbc, hgb, hct plt Recent Labs 12/20/20 1535 WBC 10.0* HGB 12.2* HCT 36.0* PLATELET 198 Last 3 Lactates Recent Labs 12/20/20 1538 LACTATEVEN 3.7* Last UA Recent Labs 12/20/20 1830 PHUADIP 5.0 SPGRAVITYUA >=1.030* BLOODUADIP Negative KETONESUA 15* GLUCOSEU Negative PROTEINUADIP 30* BILIRUBINUA Small* UROBILIUADIP Normal NITRATEUA Positive* LEUKOESTERUA Trace* Last Urine Micro Recent Labs 12/20/20 1830 RBCU 4* WBCUA 3 BACTERIAUA Rare* SQUAMEPIUA 1 HYALCAST 11* I reviewed the EKG tracing: Rhythm: NSR Rate: 68 Relevant findings: artifact from DBS; nonspecific T and P-wave abnormalities XR Pelvis & Lat Hip Bilat Final Result No fracture or dislocation of the right or left hip joints. I have personally reviewed the image(s) and the resident's interpretation and agree with the findings, Daniela Barone MD at 12/20/2020 7:42 PM Thank you for letting us participate in the care of this patient. If you are a health care provider and have any questions regarding this report, please contact the number below. For patients who have questions please contact the health occasional caregiver that requested your imaging first. Electronically signed by: Daniela Barone MD, [facility] ([phone]), at 12/20/2020 7:[address] Head & Cervical Spine wo Contrast (Generic) Final Result 1. No intracranial hemorrhage or calvarial fracture. 2. No acute cervical spine fracture. Thank you for letting us participate in the care of this patient. If you are a health care provider and have any questions regarding this report, please contact the number below. For patients who have questions please contact the health occasional caregiver that requested your imaging first. Assessment and Plan: 65 y.o. male with worsening stabilization c/w frequent falls (3x today) for the past 2 weeks coinsiding with his shingles diagnosis, which first presented on his right calf and spread to his right lower back. During this time, he was complaining of shock-like lower back pain, which prompted his provider to prescribe him Gabapentin (started on CT Head & Cervical Spine was ordered d/t hitting his head during an unwitnessed fall today is reassuring and does not reveal an intracranial hemorrhage or fracture. X-Ray of Hip & Pelvis was ordered d/t tenderness to palpation on physical exam, and is unremarkable; no signs of fracture or dislocatoin. Patient was encouraged to get up with assistance and use of walker, however, he was significantly uncoordinated and could not take one step forward. Urinalysis is significant for nitrates, leukoesterase, and elevated specific gravity most likely due todehydration and possible infection. 1,000 mL IV NS bolus was administered as well as a course of Keflex was started. Patient will be admitted to CDU and consulted by PT/OT in the morning for further evaluation and discussion of options, such as acute rehab. The visit findings, diagnosis, and care plan were discussed with the patient. ED Triage - Jasvir Acuna RN - 12/20/2020 2:13 PM EDT HPI (Adult) Stated Reason for Visit: Pt with Hx of parkinson's here s/p fall today and hitting of his head. Pt denies LOC, is not on thinners. Diagnosed 2 weeks with shingles states pt has been getting progressively weaker, having difficutly ambulating. It is like his legs don't hold him at all. Pt AAXO, in wheelchair, pwd, RRR, even, unlabored. All lesions appear to be scabbed over. History Obtained From: patient, family documented in this encounter Plan of Treatment Upcoming Encounters Date Type Specialty Care Team Description 03/20/2022 Office Visit Neurology Vishnu Hooper MD [facility] NEUROLOGY DEPT. [place], [place] [address] (Wo rk) documented as of this encounter Procedures Procedure Name Priority Date/Time Associated Comments Diagnosis POCT GLUCOSE Routine 12/23/2020 11:45 Results for this AM EDT procedure are i n the results section. BMP W/FASTING GLUCOSE Routine 12/23/2020 8:10 AM Results for this EDT procedure are i n the results section. HEMOGRAM Routine 12/23/2020 8:10 AM Results f or this EDT procedure are i n the results section. DIFFERENTIAL, AUTOMATED Routine 12/23/2020 8:10 AM Results for this EDT procedure are i n the results section. HC [facility] THIAMIN Routine 12/23/2020 8:10 AM Results for this LVL(VITAMIN B1) [facility] EDT proc edure are in the results section. HC CBC,PLT & AUTO DIFF Routine 12/23/2020 8:10 AM EDT HC THYROID STIMULATING Routine 12/23/2020 8:10 AM Results for this HORMONE, SERUM EDT procedure are in the results section. HC PHOSPHORUS, SERUM Routine 12/23/2020 8:10 AM R esults for this EDT procedure are i n the results section. HC MAGNESIUM, SERUM Routine 12/23/2020 8:10 AM Re sults for this EDT procedure are i n the results section. HC VITAMIN B12 SERUM Routine 12/23/2020 8:10 AM R esults for this EDT procedure are i n the results section. HC AMMONIA, PLASMA Routine 12/23/2020 8:10 AM Res ults for this EDT procedure are i n the results section. POCT GLUCOSE Routine 12/23/2020 6:18 AM Results f or this EDT procedure are i n the results section. POCT GLUCOSE Routine 12/23/2020 4:29 AM Results f or this EDT procedure are i n the results section. POCT GLUCOSE Routine 12/22/2020 11:13 Results for this PM EDT procedure are i n the results section. POCT GLUCOSE Routine 12/22/2020 8:53 PM Results f or this EDT procedure are i n the results section. POCT GLUCOSE Routine 12/22/2020 4:18 PM Results f or this EDT procedure are i n the results section. POCT GLUCOSE Routine 12/22/2020 12:48 Results for this PM EDT procedure are i n the results section. POCT GLUCOSE Routine 12/22/2020 9:55 AM Results f or this EDT procedure are i n the results section. BMP W/FASTING GLUCOSE Routine 12/22/2020 9:51 AM Results for this EDT procedure are i n the results section. HEMOGRAM Routine 12/22/2020 9:51 AM Results f or this EDT procedure are i n the results section. DIFFERENTIAL, AUTOMATED Routine 12/22/2020 9:51 AM Results for this EDT procedure are i n the results section. HC VENIPUNCTURE Routine 12/22/2020 9:51 AM EDT POCT GLUCOSE Routine 12/22/2020 7:58 AM Results f or this EDT procedure are i n the results section. HC PARTIAL STAT 12/22/2020 5:06 AM Results f or this THROMBOPLASTIN TIME EDT procedur e are in the results section. HC PROTHROMBIN TIME STAT 12/22/2020 5:06 AM Re sults for this EDT procedure are i n the results section. POCT GLUCOSE Routine 12/22/2020 4:38 AM Results f or this EDT procedure are i n the results section. POCT GLUCOSE Routine 12/22/2020 12:51 Results for this AM EDT procedure are i n the results section. POCT GLUCOSE Routine 12/21/2020 9:45 PM Results f or this EDT procedure are i n the results section. POCT GLUCOSE Routine 12/21/2020 7:54 PM Results f or this EDT procedure are i n the results section. POCT GLUCOSE Routine 12/21/2020 4:52 PM Results f or this EDT procedure are i n the results section. POCT GLUCOSE Routine 12/21/2020 11:32 Results for this AM EDT procedure are i n the results section. RAPID COVID-19 PCR STAT 12/21/2020 2:01 AM Res ults for this ([facility]) EDT procedure are in the results section. POCT GLUCOSE Routine 12/21/2020 12:26 Results for this AM EDT procedure are i n the results section. L-LACTATE2 WHOLE BLOOD Routine 12/20/2020 10:41 R esults for this PM EDT procedure are i n the results section. HEMOGRAM STAT 12/20/2020 10:24 Results for this PM EDT procedure are i n the results section. DIFFERENTIAL, AUTOMATED STAT 12/20/2020 10:24 Results for this PM EDT procedure are i n the results section. GOLD TUBE HOLD STAT 12/20/2020 10:24 Results f or this PM EDT procedure are i n the results section. BLUE TUBE HOLD STAT 12/20/2020 10:24 Results f or this PM EDT procedure are i n the results section. PROTHROMBIN TIME STAT 12/20/2020 10:24 Results for this PM EDT procedure are i n the results section. HC CBC,PLT & AUTO DIFF STAT 12/20/2020 10:24 PM EDT BASIC METABOLIC PANEL STAT 12/20/2020 10:24 Re sults for this (NON-FASTING) PM EDT procedure are in the results section. POCT GLUCOSE Routine 12/20/2020 9:59 PM Results f or this EDT procedure are i n the results section. URINALYSIS MICROSCOPIC STAT 12/20/2020 6:30 PM Results for this EXAM EDT procedure are i n the results section. URINALYSIS WITH REFLEX STAT 12/20/2020 6:30 PM Results for this CULTURE EDT procedure are i n the results section. URINE CULTURE STAT 12/20/2020 6:30 PM Results for this EDT procedure are i n the results section. XR PELVIS AND LAT HIP STAT 12/20/2020 5:44 PM Results for this BILAT EDT procedure are i n the results section. RAPID COVID-19 PCR STAT 12/20/2020 5:34 PM Res ults for this ([facility]) EDT procedure are in the results section. CT HEAD AND CERVICAL STAT 12/20/2020 4:20 PM R esults for this SPINE WO CONTRAST EDT procedure are in the results section. EKG 12-LEAD STAT 12/20/2020 3:40 PM Results f or this EDT procedure are i n the results section. BLOOD GAS 2 VENOUS Routine 12/20/2020 3:38 PM Res ults for this EDT procedure are i n the results section. HEMOGRAM STAT 12/20/2020 3:35 PM Results f or this EDT procedure are i n the results section. DIFFERENTIAL, AUTOMATED STAT 12/20/2020 3:35 PM Results for this EDT procedure are i n the results section. GOLD TUBE HOLD STAT 12/20/2020 3:35 PM Results for this EDT procedure are i n the results section. BLUE TUBE HOLD STAT 12/20/2020 3:35 PM Results for this EDT procedure are i n the results section. HC CBC,PLT & AUTO DIFF STAT 12/20/2020 3:35 PM EDT HEPATIC FUNCTION PANEL STAT 12/20/2020 3:35 PM Results for this EDT procedure are i n the results section. BASIC METABOLIC PANEL STAT 12/20/2020 3:35 PM Results for this (NON-FASTING) EDT procedure are in the results section. documented in this encounter Results POCT Glucose (12/23/2020 11:45 AM EDT) athologist [facility] POC Glucose 180 65 - 199 [facility] mg/dL [facility] Comment: Supplemental ranges: <140 mg/dL before meals <180 mg/dL all other times of the day Specimen Anatomical Collection Method Collection Time Receive d Time (Source) Location / / Volume Laterality Blood specimen 12/23/2020 11:45 1 (specimen) AM EDT 11:45 AM EDT Renny Reyes MD POINT OF CARE TEST ORDERABLE S Performing Organization Address City/State/ZIP Code Phon e Number [place] [id number] Differential, Automated (12/23/2020 8:10 AM EDT) athologist [facility] Neutrophils % 56.6 % [facility] Neutr Abs (ANC) 4.17 1.70 - [facility] 6.10 [facility] x10(3)/[facility] LABORATORY Lymphocytes % 31.9 % [facility] Lymphocytes Abs 2.4 0.9 - 3.2 [facility] x10(3)/[facility] LABORATORY Monocytes % 9.4 % [facility] Monocyte Abs 0.7 0.3 - 0.9 [facility] x10(3)/[facility] LABORATORY Eosinophils % 1.6 % [facility] Eosinophils Abs 0.1 0.0 - 0.4 [facility] x10(3)/[facility] LABORATORY Basophils % 0.4 % [facility] Basophils Abs 0.0 0.0 - 0.1 [facility] x10(3)/[facility] LABORATORY Immature Gran % 0.10 % [facility] Comment: Immature granulocytes(IG's)percentage an d absolute count will include metamyelocytes, myelocytes, and promyelo cytes. Blood smears from CBCs yielding IG's will be scanned manually for concor dance. If this scan disagrees with the automated IG or if promyelocytes are not ed, a manual differential will be performed. Anneliese Gran Abs 0.01 0.00 - 0.04 x10(3)/[facility]ORY Specimen Anatomical Collection Method Collection Time Receive d Time (Source) Location / / Volume Laterality Blood specimen 12/23/2020 8:10 AM 021 8:23 (specimen) EDT AM EDT Resulting Agency Comment Spec In Lab Carmen Herman MD HEMATOLOGY ORDERABLES Performing Organization Address City/State/[place] [address] (ABNORMAL) Hemogram (12/23/2020 8:10 AM EDT) Analysis Performed At Patho logist Time Signature WBC 7.4 4.0 - 9.5 [facility] x10(3)/[facility] LABORATORY RBC 4.14 (L) 4.58 - [facility] 5.54 [facility] x10(6)/[facility] LABORATORY Hemoglobin 12.3 (L) 13.7 - [facility]m/dL [facility] Hematocrit 36.1 (L) 40.5 - [facility] 48.5 % [facility] MCV 87.2 82.9 - [facility] 93.[address] [facility] LABORATORY MCH 29.7 27.5 - [facility] 32.1 pg [facility] MCHC 34.1 32.0 - [facility] 35.7 gm/dL [facility] Platelets 186 145 - 357 [facility] RDWSD 44.4 36.0 - [facility] 45.0 [facility] RDWCV 14.1 (H) 11.4 - [facility] 13.8 % [facility] MPV 10.8 7.6 - 12.9 [facility] fL [facility] nRBC % Auto 0.0 % [facility] nRBC Abs Auto 0.000 0.000 - [facility] 0.[address] [facility] x10(3)/[facility] LABORATORY Specimen Anatomical Collection Method Collection Time Receive d Time (Source) Location / / Volume Laterality Blood specimen 12/23/2020 8:10 AM 021 8:23 (specimen) EDT AM EDT Resulting Agency Comment Spec In Lab Carmen Herman MD HEMATOLOGY ORDERABLES Performing Organization Address City/State/ZIP Code Phon e Number [address] Vitamin B1, whole blood (12/23/2020 8:10 AM EDT) athologist Signature Vit B1 Lvl WB 95 70 - 180 [facility] nmol/L [facility] Comment: ADDITIONAL INFORMATIO N This test was developed and its performa nce characteristics determined by [facility] in a manner co nsistent with CLIA requirements. This test has not been jose de jesus ared or approved by the U.S. Food and Drug Administration. Test Performed by: [facility] [address] [place] [address] Joint Filler: Rosendo Yin M.D. Ph. D.; CLIA# [id number] Specimen Anatomical Collection Method Collection Time Receive d Time (Source) Location / / Volume Laterality Blood 12/23/2020 8:10 AM EDT 10:25 AM EDT Resulting Agency Comment Spec In Lab Renny Reyes MD CHEMISTRY ORDERABLES Performing Organization Address City/[facility]/ZIP Code Phon e Number [address] (ABNORMAL) BMP w/fasting Glucose (12/23/2020 8:10 AM EDT) P athologist Signature Glucose 149 (H) 65 - 99 [facility] Fasting mg/dL [facility] Comment: ?Fasting* Glucose Interpretive C riteria Normal ?65-99 mg/dL Impaired Fasting glucose ?100-125 mg/dL Consistent with Diabetes Mellitus ? >or= 126 mg/dL *Fasting is defined as no caloric intake for at least 8 hours In the absence of unequivocal hypergly cemia a plasma glucose value of >or= 126 mg/dL should be repeated on a subseq uent day. Diagnosis and Classification of Diabetes Mellitus, Position Statement from the [place] [employer]. ??Diabete s Care, Volume 33, Supplement 1, Aug 2009 BUN 11 10 - 20 mg/dL [facility] Creatinine 0.85 0.80 - 1.50 mg/dL [facility] Sodium 144 135 - 145 mmol/L [facility] Potassium 3.8 3.5 - 5.0 mmol/L [facility] Comment: Please note: ??Patients with WBC >100,00 0 may have falsely elevated Potassium levels. ??For accurate Potassium quantif ication in these patients send serum separator tube (gold top) for subsequent determinations. ??Contact the Clinical Chemistry Laboratory if there are any qu estions. Chloride 106 98 - 107 mmol/L [facility] CO2 28 22 - 31 mmol/L [facility] Anion Gap 10 5 - 15 mmol/L [facility] Calcium 9.2 8.5 - 10.5 mg/dL [facility] Estimated GFR 91 >=60 mL/min/1.73 m?? [facility] Comment: This patient? s estimated glomerular filtration rate (eGFR) is between 91 mL/min/1.73 m2 (patients with less muscl e mass per kg body weight) and 106 mL/min/1.73 m2 (patients with more muscl e mass per kg body weight) as determined by the CKD-EPI equation. Asse ssment of eGFR is not appropriate when creatinine concentrations are rapidly ch anging. For clinical decisions where creatinine clearance will affect therapy , a 24-hour urine creatinine clearance may be advised. Assignment of CKD stage 1 - 5 for patien ts with an eGFR near the transition point between stages may be based on cli nical assessment of muscle mass and symptoms in addition to eGFR. Specimen Anatomical Collection Method Collection Time Receive d Time (Source) Location / / Volume Laterality Blood specimen 12/23/2020 8:10 AM 021 8:23 (specimen) EDT AM EDT Resulting Agency Comment Spec In Lab Renny Reyes MD CHEMISTRY ORDERABLES Performing Organization Address City/State/ZIP Code Phon e Number [address] Vitamin B12 (12/23/2020 8:10 AM EDT) athologist Signature Vitamin B-12 563 232 - 1,245 [facility] pg/mL [facility] Specimen Anatomical Collection Method Collection Time Receive d Time (Source) Location / / Volume Laterality Blood specimen 12/23/2020 8:10 AM 021 8:23 (specimen) EDT AM EDT Resulting Agency Comment Spec In Lab Renny Reyes MD CHEMISTRY ORDERABLES Performing Organization Address City/[facility]/ZIP Code Phon e Number [address] TSH (12/23/2020 8:10 AM EDT) athologist Signature TSH 3.25 0.27 - 4.20 [facility] mcIU/mL [facility] Specimen Anatomical Collection Method Collection Time Receive d Time (Source) Location / / Volume Laterality Blood specimen 12/23/2020 8:10 AM 021 8:23 (specimen) EDT AM EDT Resulting Agency Comment Spec In Lab Renny Reyes MD CHEMISTRY ORDERABLES Performing Organization Address City/State/Z[place] [address] Ammonia (12/23/2020 8:10 AM EDT) athologist Signature Ammonia 22 16 - 60 [facility] mcmol/L [facility] Specimen Anatomical Collection Method Collection Time Receive d Time (Source) Location / / Volume Laterality Blood specimen 12/23/2020 8:10 AM 021 8:20 (specimen) EDT AM EDT Resulting Agency Comment Spec In Lab Renny Reyes MD CHEMISTRY ORDERABLES Performing Organization Address City/State/ZIP Code Phon e Number [address] Phosphorus (12/23/2020 8:10 AM EDT) athologist Signature Phosphorus 3.9 2.5 - 4.5 [facility] mg/dL [facility] Specimen Anatomical Collection Method Collection Time Receive d Time (Source) Location / / Volume Laterality Blood specimen 12/23/2020 8:10 AM 021 8:23 (specimen) EDT AM EDT Resulting Agency Comment Spec In Lab Renny Reyes MD CHEMISTRY ORDERABLES Performing Organization Address City/State/ZIP Code Phon e Number [address] Magnesium (12/23/2020 8:10 AM EDT) athologist Signature Magnesium 0.76 0.69 - 1.07 [facility] mmol/L [facility] Specimen Anatomical Collection Method Collection Time Receive d Time (Source) Location / / Volume Laterality Blood specimen 12/23/2020 8:10 AM 021 8:23 (specimen) EDT AM EDT Resulting Agency Comment Spec In Lab Renny Reyes MD CHEMISTRY ORDERABLES Performing Organization Address City/State/ZIP Code Phon e Number [address] POCT Glucose (12/23/2020 6:18 AM EDT) athologist Signature POC Glucose 167 65 - 199 [facility] mg/dL [facility] Comment: Supplemental ranges: <140 mg/dL before meals <180 mg/dL all other times of the day Specimen Anatomical Collection Method Collection Time Receive d Time (Source) Location / / Volume Laterality Blood specimen 12/23/2020 6:18 AM 021 6:18 (specimen) EDT AM EDT Renny Reyes MD POINT OF CARE TEST ORDERABLE S Performing Organization Address City/[facility]/ZIP Code Phon e Number [address] POCT Glucose (12/23/2020 4:29 AM EDT) athologist Signature POC Glucose 152 65 - 199 [facility] mg/dL [facility] Comment: Supplemental ranges: <140 mg/dL before meals <180 mg/dL all other times of the day Specimen Anatomical Collection Method Collection Time Receive d Time (Source) Location / / Volume Laterality Blood specimen 12/23/2020 4:29 AM 021 4:29 (specimen) EDT AM EDT Renny Reyes MD POINT OF CARE TEST ORDERABLE S Performing Organization Address City/State/ZIP Code Phon e Number [address] POCT Glucose (12/22/2020 11:13 PM EDT) athologist Signature POC Glucose 148 65 - 199 [facility] mg/dL [facility] Comment: Supplemental ranges: <140 mg/dL before meals <180 mg/dL all other times of the day Specimen Anatomical Collection Method Collection Time Receive d Time (Source) Location / / Volume Laterality Blood specimen 12/22/2020 11:13 1 (specimen) PM EDT 11:13 PM EDT Renny Reyes MD POINT OF CARE TEST ORDERABLE S Performing Organization Address City/State/ZIP Code Phon e Number [address] POCT Glucose (12/22/2020 8:53 PM EDT) athologist Signature POC Glucose 160 65 - 199 [facility] mg/dL [facility] Comment: Supplemental ranges: <140 mg/dL before meals <180 mg/dL all other times of the day Specimen Anatomical Collection Method Collection Time Receive d Time (Source) Location / / Volume Laterality Blood specimen 12/22/2020 8:53 PM 021 8:53 (specimen) EDT PM EDT Renny Reyes MD POINT OF CARE TEST ORDERABLE S Performing Organization Address City/[facility]/ZIP Code Phon e Number [address] POCT Glucose (12/22/2020 4:18 PM EDT) athologist Signature POC Glucose 157 65 - 199 [facility] mg/dL [facility] Comment: Supplemental ranges: <140 mg/dL before meals <180 mg/dL all other times of the day Specimen Anatomical Collection Method Collection Time Receive d Time (Source) Location / / Volume Laterality Blood specimen 12/22/2020 4:18 PM 021 4:18 (specimen) EDT PM EDT Renny Reyes MD POINT OF CARE TEST ORDERABLE S Performing Organization Address City/[facility]/ZIP Code Phon e Number [address] POCT Glucose (12/22/2020 12:48 PM EDT) athologist Signature POC Glucose 178 65 - 199 [facility] mg/dL [facility] Comment: Supplemental ranges: <140 mg/dL before meals <180 mg/dL all other times of the day Specimen Anatomical Collection Method Collection Time Receive d Time (Source) Location / / Volume Laterality Blood specimen 12/22/2020 12:48 1 (specimen) PM EDT 12:48 PM EDT Renny Reyes MD POINT OF CARE TEST ORDERABLE S Performing Organization Address City/State/ZIP Code Phon e Number [address] POCT Glucose (12/22/2020 9:55 AM EDT) athologist Signature POC Glucose 174 65 - 199 [facility] mg/dL [facility] Comment: Supplemental ranges: <140 mg/dL before meals <180 mg/dL all other times of the day Specimen Anatomical Collection Method Collection Time Receive d Time (Source) Location / / Volume Laterality Blood specimen 12/22/2020 9:55 AM 021 9:55 (specimen) EDT AM EDT Renny Reyes MD POINT OF CARE TEST ORDERABLE S Performing Organization Address City/State/[place] [address] Differential, Automated (12/22/2020 9:51 AM EDT) P athologist Signature Neutrophils % 61.8 % [facility] Neutr Abs (ANC) 3.70 1.70 - [facility] 6.[address] [facility] x10(3)/[facility] LABORATORY Lymphocytes % 27.3 % [facility] Lymphocytes Abs 1.6 0.9 - 3.2 [facility] x10(3)/[facility] LABORATORY Monocytes % 9.4 % [facility] Monocyte Abs 0.6 0.3 - 0.9 [facility] x10(3)/[facility] LABORATORY Eosinophils % 1.0 % [facility] Eosinophils Abs 0.1 0.0 - 0.4 [facility] x10(3)/[facility] LABORATORY Basophils % 0.2 % [facility] Basophils Abs 0.0 0.0 - 0.1 [facility] x10(3)/[facility] LABORATORY Immature Gran % 0.30 % [facility] Comment: Immature granulocytes(IG's)percentage an d absolute count will include metamyelocytes, myelocytes, and promyelo cytes. Blood smears from CBCs yielding IG's will be scanned manually for concor dance. If this scan disagrees with the automated IG or if promyelocytes are not ed, a manual differential will be performed. Anneliese Gran Abs 0.02 0.00 - 0.04 x10(3)/[facility] Specimen Anatomical Collection Method Collection Time Receive d Time (Source) Location / / Volume Laterality Blood specimen 12/22/2020 9:51 AM 021 9:57 (specimen) EDT AM EDT Resulting Agency Comment Spec In Lab Carmen Herman MD HEMATOLOGY ORDERABLES Performing Organization Address City/State/[place] [address] (ABNORMAL) Hemogram (12/22/2020 9:51 AM EDT) Analysis Performed At Patho logist Time Signature WBC 6.0 4.0 - 9.5 [facility] LABORATORY RBC 3.89 (L) 4.58 - [facility] 5.[address] [facility] x10(6)/[facility] LABORATORY Hemoglobin 11.5 (L) 13.7 - [facility] 16.5 gm/dL [facility] Hematocrit 33.4 (L) 40.5 - [facility] 48.5 % [facility] MCV 85.9 82.9 - [facility] LABORATORY MCH 29.6 27.5 - [facility] 32.1 pg [facility] MCHC 34.4 32.0 - [facility] 35.7 gm/dL [facility] Platelets 161 145 - 357 [facility] x10(3)/[facility] LABORATORY RDWSD 42.9 36.0 - [facility] 45.[address] [facility]ATORY RDWCV 13.9 (H) 11.4 - [facility] 13.8 % [facility] MPV 10.6 7.6 - 12.9 [facility] LABORATORY nRBC % Auto 0.0 % [facility] nRBC Abs Auto 0.000 0.000 - [facility] [address] [facility] x10(3)/[facility] LABORATORY Specimen Anatomical Collection Method Collection Time Receive d Time (Source) Location / / Volume Laterality Blood specimen 12/22/2020 9:51 AM 021 9:57 (specimen) EDT AM EDT Resulting Agency Comment Spec In Lab Carmen Herman MD HEMATOLOGY ORDERABLES Performing Organization Address City/[facility]/[place] [address] (ABNORMAL) BMP w/fasting Glucose (12/22/2020 9:51 AM EDT) P athologist Signature Glucose 154 (H) 65 - 99 [facility] Fasting mg/dL [facility] Comment: ?Fasting* Glucose Interpretive C riteria Normal ?65-99 mg/dL Impaired Fasting glucose ?100-125 mg/dL Consistent with Diabetes Mellitus ? >or= 126 mg/dL *Fasting is defined as no caloric intake for at least 8 hours In the absence of unequivocal hypergly cemia a plasma glucose value of >or= 126 mg/dL should be repeated on a subseq uent day. Diagnosis and Classification of Diabetes Mellitus, Position Statement from the [place] [employer]. ??Diabete s Care, Volume 33, Supplement 1, Aug 2009 BUN 7 (L) 10 - 20 mg/dL [facility] Creatinine 0.83 0.80 - 1.50 mg/dL [facility] Sodium 142 135 - 145 mmol/L [facility] Potassium 3.6 3.5 - 5.0 mmol/L [facility] Comment: Please note: ??Patients with WBC >100,00 0 may have falsely elevated Potassium levels. ??For accurate Potassium quantif ication in these patients send serum separator tube (gold top) for subsequent determinations. ??Contact the Clinical Chemistry Laboratory if there are any qu estions. Chloride 106 98 - 107 mmol/L [facility] CO2 25 22 - 31 mmol/L [facility] Anion Gap 11 5 - 15 mmol/L [facility] Calcium 8.9 8.5 - 10.5 mg/dL [facility] Estimated GFR 92 >=60 mL/min/1.73 m?? [facility] Comment: This patient? s estimated glomerular filtration rate (eGFR) is between 92 mL/min/1.73 m2 (patients with less muscl e mass per kg body weight) and 107 mL/min/1.73 m2 (patients with more muscl e mass per kg body weight) as determined by the CKD-EPI equation. Asse ssment of eGFR is not appropriate when creatinine concentrations are rapidly ch anging. For clinical decisions where creatinine clearance will affect therapy , a 24-hour urine creatinine clearance may be advised. Assignment of CKD stage 1 - 5 for patien ts with an eGFR near the transition point between stages may be based on cli nical assessment of muscle mass and symptoms in addition to eGFR. Specimen Anatomical Collection Method Collection Time Receive d Time (Source) Location / / Volume Laterality Blood specimen 12/22/2020 9:51 AM 021 9:57 (specimen) EDT AM EDT Resulting Agency Comment Spec In Lab Renny Reyes MD CHEMISTRY ORDERABLES Performing Organization Address City/[facility]/ZIP Code Phon e Number [address] POCT Glucose (12/22/2020 7:58 AM EDT) athologist Signature POC Glucose 162 65 - 199 [facility] mg/dL [facility] Comment: Supplemental ranges: <140 mg/dL before meals <180 mg/dL all other times of the day Specimen Anatomical Collection Method Collection Time Receive d Time (Source) Location / / Volume Laterality Blood specimen 12/22/2020 7:58 AM 021 7:58 (specimen) EDT AM EDT Renny Reyes MD POINT OF CARE TEST ORDERABLE S Performing Organization Address City/[facility] [place] [address] APTT (12/22/2020 5:06 AM EDT) athologist Signature PTT 29 25 - 37 sec [facility] Comment: The PTT is NOT appropriate for heparin m onitoring. Use the Anti-Xa level for heparin monitoring (HEP UFH) or LMWH mon itoring (HEP LMW). A PTT less than 37 seconds generally indicates adequate hem ostasis. Specimen Anatomical Collection Method Collection Time Receive d Time (Source) Location / / Volume Laterality Blood specimen 12/22/2020 5:06 AM 021 5:14 (specimen) EDT AM EDT Resulting Agency Comment Spec In Lab Renny Reyes MD HEMATOLOGY ORDERABLES Performing Organization Address City/State/[place] [address] (ABNORMAL) Prothrombin Time (12/22/2020 5:06 AM EDT) athologist Signature PT 13.8 (H) 9.4 - 12.5 [facility] LABORATORY INR 1.2 [facility] Comment: An INR <2.0 indicates [...] (Source) Location / / Volume Laterality Blood specimen 12/22/2020 5:06 AM 021 5:14 (specimen) EDT AM EDT Resulting Agency Comment Spec In Lab Renny Reyes MD HEMATOLOGY ORDERABLES Performing Organization Address City/[facility]/ZIP [place] [address] POCT Glucose (12/22/2020 4:38 AM EDT) athologist Signature POC Glucose 127 65 - 199 [facility] mg/dL [facility] Comment: Supplemental ranges: <140 mg/dL before meals <180 mg/dL all other times of the day Specimen Anatomical Collection Method Collection Time Receive d Time (Source) Location / / Volume Laterality Blood specimen 12/22/2020 4:38 AM 021 4:38 (specimen) EDT AM EDT Renny Reyes MD POINT OF CARE TEST ORDERABLE S Performing Organization Address City/State/Z[place] [address] POCT Glucose (12/22/2020 12:51 AM EDT) athologist Signature POC Glucose 163 65 - 199 [facility] mg/dL [facility] Comment: Supplemental ranges: <140 mg/dL before meals <180 mg/dL all other times of the day Specimen Anatomical Collection Method Collection Time Receive d Time (Source) Location / / Volume Laterality Blood specimen 12/22/2020 12:51 1 (specimen) AM EDT 12:51 AM EDT Renny Reyes MD POINT OF CARE TEST ORDERABLE S Performing Organization Address City/State/ZIP Code Phon e Number [address] POCT Glucose (12/21/2020 9:45 PM EDT) athologist Signature POC Glucose 133 65 - 199 [facility] GOME[facility]ELITA mg/dL [facility] Comment: Supplemental ranges: <140 mg/dL before meals <180 mg/dL all other times of the day Specimen Anatomical Collection Method Collection Time Receive d Time (Source) Location / / Volume Laterality Blood specimen 12/21/2020 9:45 PM 021 9:45 (specimen) EDT PM EDT Renny Reyes MD POINT OF CARE TEST ORDERABLE S Performing Organization Address City/State/ZIP Code Phon e Number [address] POCT Glucose (12/21/2020 7:54 PM EDT) athologist Signature POC Glucose 118 65 - 199 [facility] [place] mg/dL [facility] Comment: Supplemental ranges: <140 mg/dL before meals <180 mg/dL all other times of the day Specimen Anatomical Collection Method Collection Time Receive d Time (Source) Location / / Volume Laterality Blood specimen 12/21/2020 7:54 PM 021 7:54 (specimen) EDT PM EDT Renny Reyes MD POINT OF CARE TEST ORDERABLE S Performing Organization Address City/State/ZIP Code Phon e Number [address] POCT Glucose (12/21/2020 4:52 PM EDT) P athologist Signature POC Glucose 147 65 - 199 [facility] Comment: Supplemental ranges: <140 mg/dL before meals <180 mg/dL all other times of the day Specimen Anatomical Collection Method Collection Time Receive d Time (Source) Location / / Volume Laterality Blood specimen 12/21/2020 4:52 PM 021 4:52 (specimen) EDT PM EDT Renny Reyes MD POINT OF CARE TEST ORDERABLE S Performing Organization Address City/State/ZIP Code Phon e Number [address] POCT Glucose (12/21/2020 11:32 AM EDT) athologist Signature POC Glucose 161 65 - 199 [facility] Comment: Supplemental ranges: <140 mg/dL before meals <180 mg/dL all other times of the day Specimen Anatomical Collection Method Collection Time Receive d Time (Source) Location / / Volume Laterality Blood specimen 12/21/2020 11:32 1 (specimen) AM EDT 11:32 AM EDT Renny Reyes MD POINT OF CARE TEST ORDERABLE S Performing Organization Address City/State/[place] [address] COVID-19 PCR (12/21/2020 2:01 AM EDT) [facility] Method Time Signature SARS-CoV-2 Not Detected Not Detected [facility]USEPPE RNA PCR [facility] Comment: This result should be interpreted [...] using the Simplexa COVID-19 Direct Assay by [employer] as authorized by the FDA issued Emergency [...] Department of Pathology and Laboratory Medicine at [facility], certified under the Clinical Laboratory Improvement Amendmen [...] clinical management guidance information are available at [facility] CDC Coronavirus Disease 2019 (COVID-19) webpage under Information fo r Healthcare Professionals (https://www.cdc.gov/coronavirus/2019-nc ov/hcp/index.html). Additional information about this and ot her EUA tests can be found in provider and patient fact sheets at the following FDA website: https://www.fda.gov/medical-devices/yttcdwbfutx-dhitgbd-5315-acodu-86-txrvkdizh- fth-voqfcoxsygrayq-iqqtobk-devices/epngq-qroihdaoknq-emxm SARS-CoV-2 Source [employer] Swab [facility] Specimen (Source) Anatomical Collection Method Collection Time Re ceived Time Location / / Volume Laterality Nasopharyngeal swab 12/21/2020 2:01 12/21 (specimen) AM EDT 2:27 AM EDT Comment: Symptoms->Surveillance Resulting Agency Comment Spec In Lab Courtney Looney MD MICROBIOLOGY - GENERAL ORDER SHEKHAR Performing Organization Address City/State/[place] [address] POCT Glucose (12/21/2020 12:26 AM EDT) athologist Signature POC Glucose 165 65 - 199 [facility] Comment: Supplemental ranges: <140 mg/dL before meals <180 mg/dL all other times of the day Specimen Anatomical Collection Method Collection Time Receive d Time (Source) Location / / Volume Laterality Blood specimen 12/21/2020 12:26 1 (specimen) AM EDT 12:26 AM EDT Domingo Aguilera MD POINT OF CARE TEST ORDERABLE S Performing Organization Address City/State/ZIP Code Phon e Number [address] L-Lactate2 Whole Blood (12/20/2020 10:41 PM EDT) athologist [facility] Lactate WB 1.9 0.5 - 2.2 [facility] mmol/L [facility] Specimen Anatomical Collection Method Collection Time Receive d Time (Source) Location / / Volume Laterality Blood specimen 12/20/2020 10:41 1 (specimen) PM EDT 10:41 PM EDT Domingo Aguilera MD CHEMISTRY ORDERABLES Performing Organization Address City/State/[place] [address] (ABNORMAL) Prothrombin Time (12/20/2020 10:24 PM EDT) athologist Signature PT 12.8 (H) 9.4 - 12.5 [facility] LABORATORY INR 1.1 [facility] Comment: An INR <2.0 indicates [...] (Source) Location / / Volume Laterality Blood specimen Venous Draw / 12/20/2020 10:24 12/21/19 21 (specimen) Unknown PM EDT 11:04 PM EDT Resulting Agency Comment Spec In Lab Anish GARCIA HEMATOLOGY ORDERABLES Performing Organization Address City/State/ZIP Code Phon e Number [address] Gold Tube HOLD (12/20/2020 10:24 PM EDT) P athologist Signature Gold Hold Sample in [facility] LABORATORY Specimen Anatomical Collection Method Collection Time Receive d Time (Source) Location / / Volume Laterality Blood specimen Venous Draw / 12/20/2020 10:24 12/21/19 21 (specimen) Unknown PM EDT 11:04 PM EDT Daniel GARCIA CHEMISTRY ORDERABLES Performing Organization Address City/[facility]/ZIP Code Phon e Number [address] Blue Tube HOLD (12/20/2020 10:24 PM EDT) P athologist Signature Blue Hold Sample in [facility] LABORATORY Specimen Anatomical Collection Method Collection Time Receive d Time (Source) Location / / Volume Laterality Blood specimen Venous Draw / 12/20/2020 10:24 12/21/19 21 (specimen) Unknown PM EDT 11:04 PM EDT Daniel GARCIA HEMATOLOGY ORDERABLES Performing Organization Address City/[facility]/ZIP Code Phon e Number [address] Differential, Automated (12/20/2020 10:24 PM EDT) P athologist Signature Neutrophils % 58.1 % [facility] Neutr Abs (ANC) 4.70 1.70 - [facility] 6.[address] [facility] x10(3)/[facility] LABORATORY Lymphocytes % 29.2 % [facility] Lymphocytes Abs 2.4 0.9 - 3.2 [facility] x10(3)/[facility] LABORATORY Monocytes % 11.3 % [facility] Monocyte Abs 0.9 0.3 - 0.9 [facility] x10(3)/[facility] LABORATORY Eosinophils % 1.0 % [facility] Eosinophils Abs 0.1 0.0 - 0.4 [facility] x10(3)/[facility] LABORATORY Basophils % 0.2 % [facility] Basophils Abs 0.0 0.0 - 0.1 [facility] x10(3)/[facility] LABORATORY Immature Gran % 0.20 % [facility] Comment: Immature granulocytes(IG's)percentage an d absolute count will include metamyelocytes, myelocytes, and promyelo cytes. Blood smears from CBCs yielding IG's will be scanned manually for concor dance. If this scan disagrees with the automated IG or if promyelocytes are not ed, a manual differential will be performed. Anneliese Gran Abs 0.02 0.00 - 0.04 x10(3)/[facility] MAR Y [facility] LABORATORY Specimen Anatomical Collection Method Collection Time Receive d Time (Source) Location / / Volume Laterality Blood specimen 12/20/2020 10:24 1 (specimen) PM EDT 11:04 PM EDT Resulting Agency Comment Spec In Lab Daniel GARCIA HEMATOLOGY ORDERABLES Performing Organization Address City/State/ZIP Code Phon e Number [place] [phone] (ABNORMAL) Hemogram (12/20/2020 10:24 PM EDT) Analysis Performed At Patho logist Time Signature WBC 8.1 4.0 - 9.5 [facility] x10(3)/[facility] LABORATORY RBC 3.73 (L) 4.58 - [facility] [address] [facility] x10(6)/[facility] LABORATORY Hemoglobin 11.1 (L) 13.7 - [facility] 16.5 gm/dL [facility] Hematocrit 32.3 (L) 40.5 - [facility] 48.5 % [facility] MCV 86.6 82.9 - [facility] 93.1 fL [facility] MCH 29.8 27.5 - [facility] 32.1 pg [facility] MCHC 34.4 32.0 - [facility] 35.[facility] gm/dL [facility] Platelets 167 145 - 357 [facility] x10(3)/[facility] LABORATORY RDWSD 44.8 36.0 - [facility] 45.[address] [facility] LABORATORY RDWCV 14.3 (H) 11.4 - [facility] ESTELITA 13.8 % [facility] MPV 11.0 7.6 - 12.9 [facility] LABORATORY nRBC % Auto 0.0 % [facility] nRBC Abs Auto 0.000 0.000 - [facility] [address] [facility] x10(3)/[facility] LABORATORY Specimen Anatomical Collection Method Collection Time Receive d Time (Source) Location / / Volume Laterality Blood specimen 12/20/2020 10:24 1 (specimen) PM EDT 11:04 PM EDT Resulting Agency Comment Spec In Lab Daniel GARCIA HEMATOLOGY ORDERABLES Performing Organization Address City/State/[place] [address] Basic Metabolic Panel (non-fasting) (12/20/2020 10:24 PM EDT) athologist Signature Glucose Lvl 174 65 - 199 [facility] mg/dL [facility] Comment: Diabetes: >=200 mg/dL plus symp toms BUN 13 10 - 20 mg/dL [facility] Creatinine 0.85 0.80 - 1.50 mg/dL [facility] Sodium 141 135 - 145 mmol/L [facility] Potassium 3.5 3.5 - 5.0 mmol/L [facility] Comment: Please note: ??Patients with WBC >100,00 0 may have falsely elevated Potassium levels. ??For accurate Potassium quantif ication in these patients send serum separator tube (gold top) for subsequent determinations. ??Contact the Clinical Chemistry Laboratory if there are any qu estions. Chloride 106 98 - 107 mmol/L [facility] CO2 24 22 - 31 mmol/L [facility] Anion Gap 11 5 - 15 mmol/L [facility] Calcium 8.7 8.5 - 10.5 mg/dL [facility] Estimated GFR 91 >=60 mL/min/1.73 m?? [facility] Comment: This patient? s estimated glomerular filtration rate (eGFR) is between 91 mL/min/1.73 m2 (patients with less muscl e mass per kg body weight) and 106 mL/min/1.73 m2 (patients with more muscl e mass per kg body weight) as determined by the CKD-EPI equation. Asse ssment of eGFR is not appropriate when creatinine concentrations are rapidly ch anging. For clinical decisions where creatinine clearance will affect therapy , a 24-hour urine creatinine clearance may be advised. Assignment of CKD stage 1 - 5 for patien ts with an eGFR near the transition point between stages may be based on cli nical assessment of muscle mass and symptoms in addition to eGFR. Specimen Anatomical Collection Method Collection Time Receive d Time (Source) Location / / Volume Laterality Blood specimen 12/20/2020 10:24 (specimen) PM EDT 11:04 PM EDT Resulting Agency Comment Spec In Lab Domingo Aguilera MD CHEMISTRY ORDERABLES Performing Organization Address City/State/ZIP Code Phon e Number [address] POCT Glucose (12/20/2020 9:59 PM EDT) P athologist Signature POC Glucose 164 65 - 199 [facility] mg/dL [facility] Comment: Supplemental ranges: <140 mg/dL before meals <180 mg/dL all other times of the day Specimen Anatomical Collection Method Collection Time Receive d Time (Source) Location / / Volume Laterality Blood specimen 12/20/2020 9:59 PM 021 9:59 (specimen) EDT PM EDT Domingo Aguilera MD POINT OF CARE TEST ORDERABLE S Performing Organization Address City/State/[place] [address] (ABNORMAL) Urine culture (12/20/2020 6:30 PM EDT) Patholo gist Method Time Signature Urine Culture 10,000-49,000 cfu/ml mixed mucosal matt GIUSEPPE Note: Culture shows multiple bacterial species suggesting [facility] contamination. If symptoms c ontinue to indicate urinary tract infection, submit [facility] a new specimen. [facility] ([facility] LABORATORY Specimen Anatomical Collection Method Collection Time Receive d Time (Source) Location / / Volume Laterality Urine specimen 12/20/2020 6:30 PM 021 4:57 (specimen) EDT AM EDT Resulting Agency Comment Spec In Lab Preet Mane MD MICROBIOLOGY - GENERAL ORDER SHEKHAR Performing Organization Address City/[facility]/ZIP [facility] [place] [address] (ABNORMAL) Urinalysis Microscopic Exam (12/20/2020 6:30 PM EDT) Analysis Performed At Patho logist Time Signature RBC UA 4 (H) 0 - 3 /HPF [facility] WBC UA 3 0 - 3 /HPF [facility] Bacteria UA Rare (A) None /HPF [facility] Squam Epith UA 1 <=4 /HPF [facility] Hyaline Cast 11 (H) 0 - 2 /LPF [facility]OR[facility]ORY Specimen Anatomical Collection Method Collection Time Receive d Time (Source) Location / / Volume Laterality Urine specimen 12/20/2020 6:30 PM 021 6:38 (specimen) EDT PM EDT Resulting Agency Comment Spec In Lab Preet Mane MD URINE ORDERABLES Performing Organization Address [facility]/ZIP [facility] [place] [address] (ABNORMAL) Urinalysis with reflex Culture (12/20/2020 6:30 PM EDT) Patholo gist Method Time Signature Glucose UA Negative Negative [facility] mg/dL [facility] Protein UA 30 (A) Negative [facility] Bilirubin UA Small (A) Negative [facility] mg/dL [facility] Comment: Clinical correlation required for positi ve Urine Bilirubin results as false positive may occur with some drugs and d rug related products. If a false positive is suspected a serum total bili kapadia should be considered if clinically indicated. Urobilinogen UA Normal Normal mg/dL [facility] pH UA 5.0 5.0 - 8.0 [facility] Blood UA Negative Negative mg/dL [facility] Ketones UA 15 (A) Negative mg/dL [facility] Nitrite UA Positive (A) Negative [facility] Leukocytes UA Trace (A) Negative [facility] LABORATORY Appearance UA Clear Clear [facility] Spec [place] UA >=1.030 (A) 1.006 - 1.030 [facility] Color UA Dark Yellow Yellow [facility] Culture Reflexed Yes [facility] Specimen Anatomical Collection Method Collection Time Receive d Time (Source) Location / / Volume Laterality Urine specimen 12/20/2020 6:30 PM 021 6:38 (specimen) EDT PM EDT Resulting Agency Comment Spec In Lab Domingo Aguilera MD URINE ORDERABLES Performing Organization Address City/State/[place] [address] XR Pelvis & Lat Hip Bilat (12/20/2020 5:44 PM EDT) Anatomical Region Laterality Modality Pelvis, Hip Bilateral Digital Radiography Specimen (Source) Anatomical Location Collection Method / Collectio n Time Received Time / Laterality Volume Impressions 12/20/2020 7:42 PM EDT No fracture or dislocation of the right or left hip joints. I have personally reviewed the image(s) and the resident's interpretation and agree with the findings, Daniela Barone MD at 12/20/2020 7:42 PM Thank you for letting us participate in the care of this patient. ??If you are a health care provider and have any questi ons regarding this report, please contact the number below. ??For patients who have questions please contact the health occasional caregiver that requested your imaging first. ? Narrative 12/20/2020 7:42 PM EDT EXAMINATION: XR PELVIS AND LAT HIP BILAT CLINICAL HISTORY: fall, bilat hip pain TECHNIQUE: AP view the pelvis, lateral views of the bilateral hips COMPARISON: CT abdomen pelvis, 12/18/2019 FINDINGS: There is no displaced fracture of the vi sualized pelvis. Advanced degenerative changes of the lower lumbar spine notabl y at L5-S1 are noted, grossly unchanged from CT. Degenerative changes of the ruby ateral sacroiliac joints are also noted. No fracture or dislocation of the right or left hip joint. No proximal femur fractures. Moderate degenerative changes are present. Procedure Note Daniela Barone MD - 12/20/2020 EXAMINATION: XR PELVIS AND LAT HIP BILAT CLINICAL HISTORY: fall, bilat hip pain TECHNIQUE: AP view the pelvis, lateral views of the bilateral hips COMPARISON: CT abdomen pelvis, 12/18/2019 FINDINGS: There is no displaced fracture of the vi sualized pelvis. Advanced degenerative changes of the lower lumbar spine notabl y at L5-S1 are noted, grossly unchanged from CT. Degenerative changes of the ruby ateral sacroiliac joints are also noted. No fracture or dislocation of the right or left hip joint. No proximal femur fractures. Moderate degenerative changes are present. IMPRESSION No fracture or dislocation of the right or left hip joints. I have personally reviewed the image(s) and the resident's interpretation and agree with the findings, Daniela Barone MD at 12/20/2020 7:42 PM Thank you for letting us participate in the care of this patient. If you are a health care provider and have any questi ons regarding this report, please contact the number below. For patients w ho have questions please contact the health occasional caregiver that requested your imaging first. Rashmi Arredondo MD IMG DX ORDERABLES COVID-19 PCR (12/20/2020 5:34 PM EDT) [facility] Method Time Signature SARS-CoV-2 Not Detected Not Detected GIUSEPPE RNA PCR [facility] Comment: This result should be interpreted in com bination with the clinical observations, patient history and epidem iological information. For testing of asymptomatic individuals, assay performa nce characteristics and clinical utility have not been evaluated. Testing for SARS-CoV-2 (Severe acute respiratory syndrome coronavirus 2, form erly known as 2018 novel coronavirus or 2019-nCoV) to aid in the diagnosis of CO VID-19 is performed using the Simplexa COVID-19 Direct Assay by [email or web address] as authorized by the FDA issued Emergency [...] Department of Pathology and Laboratory Medicine at [facility], certified under the Clinical Laboratory Improvement Amendmen [...] clinical management guidance information are available at [facility] CDC Coronavirus Disease 2019 (COVID-19) webpage under Information fo r Healthcare Professionals (https://www.cdc.gov/coronavirus/2019-nc ov/hcp/index.html). Additional information about this and ot her EUA tests can be found in provider and patient fact sheets at the following FDA website: https://www.fda.gov/medical-devices/xuvxjhtkeep-ckejcmf-5013-iswte-91-qzwbitiwb- fco-vnwbsbhmxdyohi-hskzzuk-devices/ggtyy-bkvlbipxlti-lxmt SARS-CoV-2 Source [employer] Swab [facility] Specimen (Source) Anatomical Collection Method Collection Time Re ceived Time Location / / Volume Laterality Nasopharyngeal swab 12/20/2020 5:34 12/20 (specimen) PM EDT 7:00 PM EDT Comment: Symptoms->Surveillance Resulting Agency Comment Spec In Lab Rashmi Arredondo MD MICROBIOLOGY - GENERAL ORDER SHEKHAR Performing Organization Address City/State/Z[place] [address] Head & Cervical Spine wo Contrast (Generic) (12/20/2020 4:20 PM EDT) Anatomical Region Laterality Modality Head Computed Tomography Specimen (Source) Anatomical Location Collection Method / Collectio n Time Received Time / Laterality Volume Impressions 12/20/2020 4:28 PM EDT 1. No intracranial hemorrhage or calvarial fracture. 2. No acute cervical spine fracture. Thank you for letting us participate in the care of this patient. ??If you are a health care provider and have any questi ons regarding this report, please contact the number below. ??For patients who have questions please contact the health occasional caregiver that requested your imaging first. ? Narrative 12/20/2020 4:28 PM EDT EXAMINATION: CT HEAD AND CERVICAL SPINE WO CONTRAST (GENERIC) CLINICAL HISTORY: Patient with fall and head strike with history of Parkinson's TECHNIQUE: CT head and cervical spine performed wit hout intravenous contrast administration. COMPARISON: 12/21/2019, 12/20/2019 FINDINGS: CT head: The ventricles remain normal in size and contour. There is no intracranial hemorrhage or extra-axial c ollection. No intracranial mass, mass effect, shift. Bilateral DBS electrodes are present. There is no calvarial fracture. The appearance of brain parenc hyma is unchanged compared to the prior study. Cervical spine: The right C2-C3 facet rafa ints are fused. Overall cervical alignment is normal. There is no acute c ervical spine fracture. Changes of cervical spondylosis are present with di sc height loss, uncovertebral and facet arthropathy at multiple levels. Procedure Note Vishnu Mcneil MD - 12/20/2020Format ting of this note might be different from the original. EXAMINATION: CT HEAD AND CERVICAL SPINE WO CONTRAST (GENERIC) CLINICAL HISTORY: Patient with fall and head strike with history of Parkinson's TECHNIQUE: CT head and cervical spine performed wit hout intravenous contrast administration. COMPARISON: 12/21/2019, 12/20/2019 FINDINGS: CT head: The ventricles remain normal in size and contour. There is no intracranial hemorrhage or extra-axial c ollection. No intracranial mass, mass effect, shift. Bilateral DBS electrodes are present. There is no calvarial fracture. The appearance of brain parenc hyma is unchanged compared to the prior study. Cervical spine: The right C2-C3 facet rafa ints are fused. Overall cervical alignment is normal. There is no acute c ervical spine fracture. Changes of cervical spondylosis are present with di sc height loss, uncovertebral and facet arthropathy at multiple levels. IMPRESSION 1. No intracranial hemorrhage or calvari al fracture. 2. No acute cervical spine fracture. Thank you for letting us participate in the care of this patient. If you are a health care provider and have any questi ons regarding this report, please contact the number below. For patients w ho have questions please contact the health occasional caregiver that requested your imaging first. Domingo Aguilera MD IMG CT ORDERABLES EKG 12 Lead (12/20/2020 3:40 PM EDT) [facility] gist Method Time Signature Ventricular rate 68 BPM MUSE SYSTEM Atrial Rate 68 BPM MUSE SYSTEM P-R Interval 204 ms MUSE SYSTEM QRS Duration 86 ms MUSE SYSTEM Q-T Interval 408 ms MUSE SYSTEM QTC Calculated 433 ms MUSE SYSTEM (Bezet) Calculated P Encampment 87 degrees MUSE SYSTEM Calculated R Encampment 163 degrees MUSE SYSTEM Calculated T Encampment 164 degrees MUSE SYSTEM INTERPRETATION LA/RA lead reversal MUSE SYSTEM Normal sinus rhythm with 1st degree A-V block Abnormal ECG When compared with ECG of 27-DEC-2019 09:49, LA/RA lead reversal now present Confirmed by MD Gisele, [facility] [place] ([id number]) on 12/21/2020 12:5 3:34 PM Specimen Anatomical Collection Method Collection Time Receive d Time (Source) Location / / Volume Laterality 12/20/2020 3:40 PM EDT 12:53 PM EDT Domingo Aguilera MD ECG ORDERABLES Performing Organization Address City/State/ZIP Code Phon e Number MUSE SYSTEM (ABNORMAL) BLOOD GAS 2 VENOUS (12/20/2020 3:38 PM EDT) Analysis Performed At [facility] logist Time Signature pH Manny 7.41 7.32 - [facility] 7.42 [facility] pCO2 Manny 39 (L) 41 - 51 [facility] pO2 Manny 41 (H) 25 - 40 [facility] HCO3 Manny 24.4 mmol/L [facility] BE Manny -0.2 mmol/L [facility] Hgb Blood Gas 12.4 (L) 13.7 - [facility] 16.5 gm/dL [facility] O2HB Manny 74.2 % [facility] COHB Manny 0.9 % [facility] Comment: Nonsmokers: 0.5-1.5% COHB Smokers: Variable, but usually less than 10% Toxic: 20-30% COHB Lethal: Greater than 60% COHB METHB Manny 0.6 <=1.5 % [facility] Na Whole Blood 140 135 - 145 mmol/L [facility] K Whole Blood 4.8 3.5 - 5.0 mmol/L [facility] Comment: Please note: Patients with WBC >100,000 may have falsely elevated Potassium levels. Contact the Clinical Chemistry L aboratory if there are any questions. ICa Whole Blood 1.11 (L) 1.15 - 1.33 mmol/L [facility] Comment: Note: ??Total bilirubin higher than 20 m g/dL may lead to falsely low ionized calcium. CL Whole Blood 104 98 - 107 mmol/L [facility] Gluc Whole Bld 153 65 - 199 mg/dL [facility] Comment: Diabetes: >=200 mg/dL plus symp toms Lactate WB 3.7 (H) 0.5 - 2.2 mmol/L [facility] BGas Source Venous [facility] Specimen Anatomical Collection Method Collection Time Receive d Time (Source) Location / / Volume Laterality Blood specimen 12/20/2020 3:38 PM 021 3:38 (specimen) EDT PM EDT Emergency Dept CHEMISTRY ORDERABLES Performing Organization Address City/[facility] Phon e Number [address] Gold Tube HOLD (12/20/2020 3:35 PM EDT) P athologist Signature Gold Hold Sample in [facility]OR[facility]ORY Specimen Anatomical Collection Method Collection Time Receive d Time (Source) Location / / Volume Laterality Blood specimen Venous Draw / 12/20/2020 3:35 PM 2020 4:04 (specimen) Unknown EDT PM EDT Preet Mane MD CHEMISTRY ORDERABLES Performing Organization Address City/[facility]/ZIP [facility] Phon e Number [address] Blue Tube HOLD (12/20/2020 3:35 PM EDT) P athologist Signature Blue Hold Sample in [facility]. [facility] Specimen Anatomical Collection Method Collection Time Receive d Time (Source) Location / / Volume Laterality Blood specimen Venous Draw / 12/20/2020 3:35 PM 2020 4:03 (specimen) Unknown EDT PM EDT Preet Mane MD HEMATOLOGY ORDERABLES Performing Organization Address City/State/[place] [address] (ABNORMAL) Differential, Automated (12/20/2020 3:35 PM EDT) Patholo gist Method Time Signature Neutrophils % 64.5 % [facility] Neutr Abs (ANC) 6.43 (H) 1.70 - [facility] [address] [facility] x10(3)/[facility] LABORATORY Lymphocytes % 24.9 % [facility] Lymphocytes Abs 2.5 0.9 - 3.2 [facility] x10(3)/[facility] LABORATORY Monocytes % 9.4 % [facility] Monocyte Abs 0.9 0.3 - 0.9 [facility] x10(3)/[facility] LABORATORY Eosinophils % 0.6 % [facility] Eosinophils Abs 0.1 0.0 - 0.4 [facility] x10(3)/[facility] LABORATORY Basophils % 0.2 % [facility] Basophils Abs 0.0 0.0 - 0.1 [facility] x10(3)/[facility] LABORATORY Immature Gran % 0.40 % [facility] Comment: Immature granulocytes(IG's)percentage an d absolute count will include metamyelocytes, myelocytes, and promyelo cytes. Blood smears from CBCs yielding IG's will be scanned manually for concor dance. If this scan disagrees with the automated IG or if promyelocytes are not ed, a manual differential will be performed. Anneliese Gran Abs 0.04 0.00 - 0.04 x10(3)/[facility] Specimen Anatomical Collection Method Collection Time Receive d Time (Source) Location / / Volume Laterality Blood specimen 12/20/2020 3:35 PM 021 4:02 (specimen) EDT PM EDT Resulting Agency Comment Spec In Lab Preet Mane MD HEMATOLOGY ORDERABLES Performing Organization Address City/State/[place] [address] (ABNORMAL) Hemogram (12/20/2020 3:35 PM EDT) Analysis Performed At Patho logist Time Signature WBC 10.0 (H) 4.0 - 9.5 [facility] LAB[facility]ATORY RBC 4.17 (L) 4.58 - [facility] [address] [facility] x10(6)/[facility] LABORATORY Hemoglobin 12.2 (L) 13.7 - [facility] 16.5 gm/dL [facility] Hematocrit 36.0 (L) 40.5 - [facility] 48.5 % [facility] MCV 86.3 82.9 - [facility] [address] [facility] LABORATORY MCH 29.3 27.5 - [facility] 32.1 pg [facility] MCHC 33.9 32.0 - [facility] 35.7 gm/dL [facility] Platelets 198 145 - 357 [facility] x10(3)/[facility] LABORATORY RDWSD 44.8 36.0 - [facility] [address] [facility] LABORATORY RDWCV 14.3 (H) 11.4 - [facility] 13.8 % [facility] MPV 11.0 7.6 - 12.9 [facility] LABORATORY nRBC % Auto 0.0 % [facility] nRBC Abs Auto 0.000 0.000 - [facility] [address] [facility] x10(3)/[facility] LABORATORY Specimen Anatomical Collection Method Collection Time Receive d Time (Source) Location / / Volume Laterality Blood specimen 12/20/2020 3:35 PM 021 4:02 (specimen) EDT PM EDT Resulting Agency Comment Spec In Lab Preet Mane MD HEMATOLOGY ORDERABLES Performing Organization Address City/State/ZIP Code Phon e Number [address] Hepatic Function Panel (12/20/2020 3:35 PM EDT) athologist Signature Total Protein 7.0 6.1 - 8.0 [facility] gm/dL [facility] Albumin 4.3 3.2 - 5.2 [facility] gm/dL [facility] AST 35 0 - 39 [facility] unit/L [facility] ALT 18 0 - 55 [facility] unit/L [facility] Alk Phos 113 40 - 130 [facility] unit/L [facility] Total 0.7 0.2 - 1.3 [facility] Bilirubin mg/dL [facility] Bili, Direct 0.2 0.0 - 0.3 [facility] mg/dL [facility] Specimen Anatomical Collection Method Collection Time Receive d Time (Source) Location / / Volume Laterality Blood specimen 12/20/2020 3:35 PM 021 4:02 (specimen) EDT PM EDT Resulting Agency Comment Spec In Lab Domingo Aguilera MD CHEMISTRY ORDERABLES Performing Organization Address City/State/ZIP Code Phon e Number [address] Basic Metabolic Panel (non-fasting) (12/20/2020 3:35 PM EDT) athologist Signature Glucose Lvl 157 65 - 199 [facility] mg/dL [facility] Comment: Diabetes: >=200 mg/dL plus symp toms BUN 14 10 - 20 mg/dL [facility] Creatinine 1.01 0.80 - 1.50 mg/dL [facility] Sodium 142 135 - 145 mmol/L [facility] Potassium 3.9 3.5 - 5.0 mmol/L [facility] Comment: Please note: ??Patients with WBC >100,00 0 may have falsely elevated Potassium levels. ??For accurate Potassium quantif ication in these patients send serum separator tube (gold top) for subsequent determinations. ??Contact the Clinical Chemistry Laboratory if there are any qu estions. Chloride 104 98 - 107 mmol/L [facility] CO2 24 22 - 31 mmol/L [facility] Anion Gap 14 5 - 15 mmol/L [facility] Calcium 9.4 8.5 - 10.5 mg/dL [facility] Estimated GFR 78 >=60 mL/min/1.73 m?? [facility] Comment: This patient? s estimated glomerular filtration rate (eGFR) is between 78 mL/min/1.73 m2 (patients with less muscl e mass per kg body weight) and 90 mL/min/1.73 m2 (patients with more muscl e mass per kg body weight) as determined by the CKD-EPI equation. Asse ssment of eGFR is not appropriate when creatinine concentrations are rapidly ch anging. For clinical decisions where creatinine clearance will affect therapy , a 24-hour urine creatinine clearance may be advised. Assignment of CKD stage 1 - 5 for patien ts with an eGFR near the transition point between stages may be based on cli nical assessment of muscle mass and symptoms in addition to eGFR. Specimen Anatomical Collection Method Collection Time Receive d Time (Source) Location / / Volume Laterality Blood specimen 12/20/2020 3:35 PM 021 4:02 (specimen) EDT PM EDT Resulting Agency Comment Spec In Lab Domingo Aguilera MD CHEMISTRY ORDERABLES Performing Organization Address City/State/[place] [address] documented in this encounter Visit Diagnoses Diagnosis Frailty Senility without mention of psychosis Acute cystitis without hematuria Acute cystitis Generalized weakness Other malaise and fatigue UTI (urinary tract infection) Urinary tract infection, site not specif ied Hypertension Unspecified essential hypertension Hyperlipidemia Other and unspecified hyperlipidemia Diabetes mellitus Type II or unspecified type diabetes troy litus without mention of complication, not stated as uncontrolled Sensory ataxia Lack of coordination S/P deep brain stimulator placement Parkinson's disease Paralysis agitans Mixed anxiety and depressive disorder Dysthymic disorder documented in this encounter Admitting Diagnoses Diagnosis Frailty Senility without mention of psychosis UTI (urinary tract infection) Urinary tract infection, site not specif ied documented in this encounter Administered Medications Inactive Administered Medications - up to 3 most recent administrations Medication Order MAR Action Action Date Dose Rate Site acetaminophen (Tylenol) tablet Given 12/23/2020 10:52 AM EDT 1,0 00 mg 1,000 mg 1,000 mg, Oral, EVERY 6 HOURS PRN, Starting on Sat12/21/20 at 2127, Until Sat12/23/20 at 1421, Pain, Maximum dose of acetaminophen is 4000 mg from all sources in 24 hours. When ordered for pain, acetaminophen should be given even when other ordered pain medications are indicated. , Routine Given 12/22/2020 11:33 PM EDT 1,000 mg atorvastatin (Lipitor) tablet 10 mg Given 12/22/2020 5:09 PM EDT 10 mg 10 mg, Oral, EVERY EVENING, First dose on Sat12/21/20 at 2215, Until Discontinued, Routine Given 12/21/2020 10:40 PM EDT 10 mg carbidopa-levodopa (Sinemet) 25-250 mg per Given 12/20 7:52 PM EDT 1 tablet tablet 1 tablet 1 tablet, Oral, ONCE, 1 dose, On Sat12/20/20 at 1852, STAT carbidopa-levodopa (Sinemet) 25-250 mg per Given 12/23 12:19 PM EDT 1 tablet tablet 1 tablet 1 tablet, Oral, 4 TIMES DAILY, First dose on Sat12/20/20 at 2100, Until Discontinued, Routine Given 12/23/2020 9:23 AM EDT 1 tablet Given 12/22/2020 8:54 PM EDT 1 tablet cefpodoxime (Vantin) tablet 200 mg Given 12/23/2020 9:24 AM EDT 200 mg 200 mg, Oral, 2 TIMES DAILY, First dose on Sat12/22/20 at 1115, Until Discontinued, Routine Given 12/22/2020 8:54 PM EDT 200 mg Given 12/22/2020 11:52 AM EDT 200 mg cefTRIAXone (Rocephin) 1 g vial attach New Bag 12/20/2020 7:53 PM EDT 1 g 100 mL/hr to sodium chloride 0.9% 50 mL Mini-Bag Plus 1 g, Intravenous, ONCE, 1 dose, On Sat12/20/20 at 1947, Administer over 30 Minutes, Indication for (Active or Suspected): Urinary Tract/Pyelonephritis cefTRIAXone (Rocephin) 1 g vial New Bag 12/21/2020 11:34 AM EDT 1 g 100 mL/hr attach to sodium chloride 0.9% 50 mL Mini-Bag Plus 1 g, Intravenous, ONCE, 1 dose, On Sat12/21/20 at 0853, Administer over 30 Minutes, Indication for (Active or Suspected): Urinary Tract/Pyelonephritis cephALEXin (Keflex) capsule 500 mg Given 12/21/2020 4:56 PM EDT 500 mg 500 mg, Oral, 4 TIMES DAILY, First dose on Sat12/20/20 at 2100, Until Discontinued, STAT Given 12/21/2020 8:54 AM EDT 500 mg Given 12/20/2020 10:27 PM EDT 500 mg dextrose 10% infusion 250 mL, at 1,000 mL/hr, Intravenous, MELA RY 30 MIN PRN, Starting on Sat12/20/20 at 2056, Until Sat12/23/20 at 1421, For BG 50-70 mg/dL: Oral treatment preferred:?? If able to drink, give 120 mL Juice or R egular (not diet) soda OR If NPO, give 15 gram glucose 40% oral gel massaged into buccal mucosa OR if unconscious or uncooperative, give 25 gram (250 mL) Dex trose 10% IV over 15 minutes per protocol OR, if no IV access, 1 mg Glucagon IM. * * For BG less than 50 mg/dL: Oral treatment preferred:?? If able to drink, give 240 mL Juice or Regular (not diet) soda OR If NPO, give 30 gram glucose 40% oral gel m assaged in buccal mucosa OR if unconscious or uncooperative, give 25 gram (250 mL) Dextrose 10% I V over 15 minutes per protocol OR, if no IV access, 1 mg Glucagon IM. Rech britt BG in 30 minutes. May repeat juice/soda, gel, dextrose or gluc agon once per episode. For persistent hypoglycemia, consider longer-acting treatment for the duration of the active insulin. DULoxetine DR (Cymbalta) capsule 30 mg Given 12/23/2020 9:23 AM EDT 30 mg 30 mg, Oral, 3 TIMES DAILY, First dose (after last modification) on Marianne 12/22/20 at 1500, Until Discontinued, Routine Given 12/22/2020 8:54 PM EDT 30 mg Given 12/22/2020 5:08 PM EDT [address] (Cymbalta) capsule 60 mg Given 12/21/2020 10:39 PM EDT 60 mg 60 mg, Oral, 3 TIMES DAILY, First dose on Sat12/20/20 at 2100, Until Discontinued, Routine Given 12/21/2020 4:57 PM EDT 60 mg Given 12/21/2020 11:23 AM EDT 60 mg entacapone (Comtan) tablet 200 mg Given 12/23/2020 9:23 AM EDT 200 mg 200 mg, Oral, 3 TIMES DAILY, First dose on Sat12/20/20 at 2100, Until Discontinued, Routine Given 12/22/2020 8:54 PM EDT 200 mg Given 12/22/2020 5:08 PM EDT 200 mg gabapentin (Neurontin) capsule 300 mg Given 12/21/2020 4:56 PM EDT 300 mg 300 mg, Oral, 3 TIMES DAILY, First dose on Sat12/20/20 at 2100, Until Discontinued, Routine Given 12/21/2020 8:54 AM EDT 300 mg Given 12/20/2020 10:27 PM EDT 300 mg glucagon (Glucagen) (1 mg/mL) injection solution 1 mg 1 mg, Intramuscular, EVERY 30 MIN PRN, S tarting on Sat12/20/20 at 2056, Until Sat12/23/20 at 1421, Low blood sugar, For BG 50-70 mg/d L: Oral treatment preferred:?? If able to drink, give 120 mL Juice or Regular (not diet) soda OR If NPO, give 15 gram glucose 40% oral gel massaged into b uccal mucosa OR if unconscious or uncooperative, give 25 gr am (250 mL) Dextrose 10% IV over 15 minutes per protocol OR, if no IV access, 1 mg G lucagon IM. For BG less than 50 mg/dL: Oral treatment preferred:?? If able to drink, give 240 mL Juice or Regular (not diet) soda OR If NPO, give 30 gram gluco se 40% oral gel massaged in buccal mucosa OR if unconscious or uncooperative, give 25 gram (250 mL) Dextrose 10% IV over 15 minutes per protocol OR, if no IV access, 1 mg Glucago n IM. Recheck BG in 30 minutes. May repeat juice/soda, gel, dex trose or glucagon once per episode. For persistent hypoglycemia, consider longer -acting treatment for the duration of the active insulin., Routine glucose (GLUTOSE) 40% oral geL 15-30 g, Buccal, EVERY 30 MIN PRN, Starting on 12/10 at 2056, Until Sat12/23/20 at 1421, Low blood sugar, For BG 50-70 mg/d L: Oral treatment preferred:?? If able to drink, give 120 mL Juice or Regular (not diet) soda OR If NPO, give 15 gram glucose 40% oral gel massaged into b uccal mucosa OR if unconscious or uncooperative, give 25 gr am (250 mL) Dextrose 10% IV over 15 minutes per protocol OR, if no IV access, 1 mg G lucagon IM. For BG less than 50 mg/dL: Oral treatment preferred:?? If able to drink, give 240 mL Juice or Regular (not diet) soda OR If NPO, give 30 gram gluco se 40% oral gel massaged in buccal mucosa OR if unconscious or uncooperative, give 25 gram (250 mL) Dextrose 10% IV over 15 minutes per protocol OR, if no IV access, 1 mg Glucago n IM. Recheck BG in 30 minutes. May repeat juice/soda, gel, dex trose or glucagon once per episode. For persistent hypoglycemia, consider longer -acting treatment for the duration of the active insulin. 1 tube contains 15 grams of glucose (n et weight of tube = 37.5 grams., Routine insulin lispro (HumaLOG;Admelog) (100 Given 12/22/2020 6:11 PM E DT 4 Units unit/mL) subcutaneous injection vial 0-8 Units 0-8 Units, Subcutaneous, 3 TIMES DAILY WITH MEALS, First dose on Sat12/21/20 at 0800, Until Discontinued, [employer] Give 1 unit for every 10 grams carbohydrate. Hold if not eating or if BG less than 70., Routine Given 12/22/2020 1:27 PM EDT 4 Units Given 12/21/2020 5:29 PM EDT 2 Units insulin lispro (HumaLOG;Admelog) (100 Given 12/23/2020 11:47 AM EDT 1 Units unit/mL) subcutaneous injection vial 1-4 Units 1-4 Units, Subcutaneous, EVERY 4 HOURS SCHEDULED, First dose on Sat12/20/20 at 2058, Until Discontinued, CORRECTION BOLUS [1-4 Units] Sensitive Sliding Scale: Correction factor 40 (1 unit of insulin is expected to drop the glucose 40 mg/dL) BG 160 - 200 Give 1 unit BG 201 - 240 Give 2 units BG 241 - 280 Give 3 units BG greater than 280, give 4 units and recheck BG in 2 hours. - If recheck BG is LESS than 280, give no insulin and resume schedule - If recheck BG is GREATER than 280, give 4 units and repeat BG in 2 hours (no more than 3 times) & call for new insulin orders. DO NOT hold if NPO, unless specifically told to do so. Per Blood Glucose Monitoring Policy, re-check a BG of > 240 in 2 hours., Routine Given 12/23/2020 7:00 AM EDT 1 Units Given 12/22/2020 8:49 PM EDT 1 Units lactated Ringers 1,000 mL IV bolus New Bag 12/20/2020 10:33 PM EDT 2000 mL/hr at 2,000 mL/hr, Intravenous, ONCE, 1 dose, On Sat12/20/20 at 2229 melatonin tablet 6 mg Given 12/22/2020 11:33 PM EDT 6 mg 6 mg, Oral, NIGHTLY PRN, Starting on Sat12/21/20 at 2127, Until Sat12/23/20 at 1421, sleep, Routine Given 12/22/2020 1:04 AM EDT 6 mg metoprolol succinate XL (Toprol-XL) tablet Given 12/23/2020 9:22 AM EDT 100 mg 100 mg 100 mg, Oral, DAILY, First dose on Sat12/21/20 at 0900, Until Discontinued, DO NOT CRUSH OR OPEN, Routine Given 12/22/2020 10:04 AM EDT 100 mg Given 12/21/2020 8:54 AM EDT 100 mg sodium chloride 0.9% 1,000 mL IV bolus New Bag 12/20/2020 7:52 PM EDT 2000 mL/hr at 2,000 mL/hr, Intravenous, ONCE, 1 dose, On Sat12/20/20 at 1946 sodium chloride 0.9% infusion New Bag 12/21/2020 2:34 PM EDT 100 mL/hr 100 mL/hr 100 mL/hr, Intravenous, CONTINUOUS, Starting on Sat12/20/20 at 2058, Until Sat12/21/20 at 2127 New Bag 12/21/2020 8:54 AM EDT 100 mL/hr 100 mL/hr New Bag 12/21/2020 1:43 AM EDT 100 mL/hr 100 mL/hr documented in this encounter Active and Recently Administered Medications Times are shown in EDT. Scheduled Medication Order 12/21/2020 12/22/2020 12/23/2020 atorvastatin (Lipitor) tablet 10 mg 2240 (Given - Provider: Akua Waters RN) 170 (Given - Provider: Elen Bush RN) 10 mg, Oral, EVERY EVENING, First dose o n Sat12/21/20 at 2215, Until Discontinued, Routine carbidopa-levodopa (Sinemet) 25-250 mg per tablet 1 ta blet 0900 (Not Given - Provider: Chante Mckinley RN - Reason: Medication not available)1124 (Given - Provider: Chante Mckinley RN - Comment: given when received from pharmacy)1656 (Given - Provider: Chante Mckinley RN) 1000 (Given - Provider: Elen Bush RN)1300 (Not Given - Provider: Elen Bush RN - Reason: Medication not available)1709 (Given - Provider: Elen Bush RN)2053 (Given - Provider: Sandro Gan RN) 0923 (Given - Provider: Jenny Alonso, JANNETTE)1219 (Given - Provider: Jenny Alonso, JANNETTE) 1 tablet, Oral, 4 TIMES DAILY, First dos e on Sat12/20/20 at 2100, Until Discontinued, Routine 1930 (Due - Provider: Chante sanderson RN)223 (Given - Provider: Akua Waters RN) cefpodoxime (Vantin) tablet 200 mg 1152 (Given - Provider: Elen Bush RN)205 (Given - Provider: Sandro Gan RN) 0924 (Given - Provider: Jenny Alonso, JANNETTE) 200 mg, Oral, 2 TIMES DAILY, First dose on Sat12/22/20 at 1115, Until Discontinued, Routine cefTRIAXone (Rocephin) 1 g vial attach t o sodium chloride 0.9% 50 mL Mini-Bag Plus (COMPLETED) 1134 (New Bag - Provider: Chante abbott, JANNETTE)1204 (Stopped - Provider: Chante Mckinley RN) 1 g, Intravenous, ONCE, 1 dose, 12/21 at 0853, Administer over 30 Minutes, Indication for (Active or Suspected): Urinary Tract/Pyelonephritis cephALEXin (Keflex) capsule 500 mg (CANCELED) 0854 (Gi manny - Provider: Courtney Garcia RN)1300 (Not Given - Provider: Chante Mckinley RN - Reason: Patient not available)1656 (Given - Provider: Chante Mckinley, JANNETTE)2100 (Not Given - Provider: Akua Waters RN - Reason: Per MD Order) 500 mg, Oral, 4 TIMES DAILY, First dose on Sat12/20/20 at 2100, Until Discontinued, STAT DULoxetine DR (Cymbalta) capsule 30 mg 1 708 (Given - Provider: Elen Bush RN)2053 (Given - Provider: Sandro Gan RN) 0923 (Given - Provider: Jenny Alonso, JANNETTE) 30 mg, Oral, 3 TIMES DAILY, First dose ( after last modification) on Sat12/22/20 at 1500, Until Discontinued, Routine DULoxetine DR (Cymbalta) capsule 60 mg (CANCELED) 0900 (Not Given - Provider: Chante Mckinley RN - Reason: Medication not available)1123 (Given - Provider: Chante Mckinley RN - Comment: given when received from pharmacy)165 (Given - Provider: Chante Mckinley RN) 0900 (Not Given - Provider: Elen Bush RN - Reason: Medication Discontinued) 60 mg, Oral, 3 TIMES DAILY, First dose o n Sat12/20/20 at 2100, Until Discontinued, Routine 2239 (Given - Provider: Akua Waters RN) entacapone (Comtan) tablet 200 mg 0900 (Not Given - Pr ovider: Chante Mckinley RN - Reason: Medication not available)1123 (Given - Provider: Chante Mckinley RN - Comment: given when received from pharmacy)1657 (Given - Provid er: Chante Mckinley RN) 1001 (Given - Provider: Elen Bush RN)1708 (Given - Provider: Elen Bush RN)2054 (Given - Provider: Sandro Gan RN) 0923 (Given - Provider: Avinash Bernal) 200 mg, Oral, 3 TIMES DAILY, First dose on Sat12/20/20 at 2100, Until Discontinued, Routine 2239 (Given - Provider: Akua Waters RN) gabapentin (Neurontin) capsule 300 mg (CANCELED) 0854 (Given - Provider: Courtney Garcia RN)1656 (Given - Provider: Chante Mckinley RN)2100 (Not Given - Provider: Akua Waters RN - Reason: Per MD Order) 300 mg, Oral, 3 TIMES DAILY, First dose on Sat12/20/20 at 2100, Until Discontinued, Routine insulin lispro (HumaLOG;Admelog) (100 un it/mL) subcutaneous injection vial 0-8 Units 0800 (Not Given - Provider: Chante hilton RN - Reason: See comment)1200 (Not Given - Provider: Chante Mckinley RN - Reason: NPO)1729 (Given - Provider: Chante Mckinley RN) 0800 (Not Given - Provider: Elen Bush RN - Reason: Patient Unable - Comment: did not eat breakfast)1327 (Given - Provider: Elen Bush RN)1811 (Given - Provider: Elen Bush RN) 0800 (Not Given - Provider: Jenny leos RN - Reason: Order parameters not met - Comment: pt only ate 5 grams)1200 (Not Given - Provider: Jenny Alonso RN - Reason: Order parameters not met - Comment: only ate 6 gm) 0-8 Units, Subcutaneous, 3 TIMES DAILY W ITH MEALS, First dose on Sat12/21/20 at 0800, Until Discontinued, MEAL ASSOCIATED Give 1 unit for every 10 grams carbohydrate. Hold if not eating or if BG less than 70., Routine insulin lispro (HumaLOG;Admelog) (100 un it/mL) subcutaneous injection vial 1-4 Units(Linked Group 1) 0000 (Not Given - Provider: Alberto baker RN - Reason: Patient/family refused)0400 (Given - Provider: Kamari Ruth RN)0800 (Not Given - Provider: Chante Mckinley RN - Reason: See comment) 0112 (Given - Provider: Akua Waters, JANNETTE)0440 (Not Given - Provider: Akua Waters RN - Reason: Order parameters not met)0958 (Given - Provider: Elen Bush RN)1328 (Given - Provider: Elen Bush RN) 0000 (Not Given - Provider: Sandro Gan RN - Reason: Order parameters not met)0400 (Not Given - Provider: Sandro Gan RN - Reason: Order parameters not met)0700 (Given - Provider: Sandro Gan RN - Comment: bg 167) 1-4 Units, Subcutaneous, EVERY 4 HOURS S CHEDULED, First dose on Sat12/20/20 at 2058, Until Discontinued, CORRECTION BOLUS [1-4 Units] Sensitive Sliding Scale: Correction factor 40 (1 unit of insulin 1143 (Not Given - Provider: Chante Mckinley RN - Reason: Order parameters not met)1600 (Not Given - Provider: Chante Mckinley RN - Reason: Order parameters not met) 1600 (Not Given - Provider: Elen Bush RN - Reason: Order parameters not met - Comment: bg 157)2049 (Given - Provider: Sandro Gan RN - Comment: bg 160) 1147 (Given - Provider: Avinash Bernal - Comment: BG 180) is expected to drop the glucose 40 mg/d L) BG 160 - 200 Give 1 unit BG 201 - 240 Give 2 units BG 241 - 280 Give 3 units BG greater than 280, give 4 units and recheck BG in 2 hours. - If recheck BG is LE 2145 (Not Given - Provider: Akua Waters RN - Reason: Order parameters not met) SS than 280, give no insulin and resume schedule - If recheck BG is GREATER than 280, give 4 units and repeat BG in 2 hours (no more than 3 times) & call for new insulin orders. DO NOT hold if NPO, unless specifically told to do so. Per [facility] Glucose Monitoring Policy, re-check a BG of > 240 in 2 hours., Routine metoprolol succinate XL (Toprol-XL) tablet 100 mg 0854 (Given - Provider: Courtney Garcia, JANNETTE) 1004 (Given - Provider: Elen Bush, JANNETTE) 0922 (Gi manny - Provider: Jenny Alonso, RN) 100 mg, Oral, DAILY, First dose on Sat at 0900, Until Discontinued, DO NOT CRUSH OR OPEN, Routine Continuous Medication Order 12/21/2020 12/22/2020 12/23/2020 sodium chloride 0.9% infusion (CANCELED) 0143 (New Bag - Provider: Alberto Moore RN)0854 (New Bag - Provider: Courtney Garcia, JANNETTE)1434 (New Bag - Provider: Chante Mckinley RN) 100 mL/hr, at 100 mL/hr, Intravenous, CO NTINUOUS, Starting Sat12/20/20 at 2058, Until Sat12/21/20 at 2127 PRN Medication Order 12/21/2020 12/22/2020 12/23/2020 acetaminophen (Tylenol) tablet 1,000 mg 2333 (Given - Provider: Sandro Gan RN) 1052 (Given - Provider: Avinash Bernal) 1,000 mg, Oral, EVERY 6 HOURS PRN, Start ing Sat12/21/20 at 2127, Until Sat12/23/20 at 1421, Pain, Maximum dose of acetaminophen is 4000 mg from all sources in 24 hours. When ordered for pain, acetaminop hen should be given even when other orde red pain medications are indicated. , Routine dextrose 10% infusion(Linked Group 2) 250 mL, at 1,000 mL/hr, Intravenous, MELA RY 30 MIN PRN, Starting Sat12/20/20 at 2055, Until Sat12/23/20 at 1421, For BG 50-70 mg/dL: Oral treatment preferred:?? If able to drink, give 120 mL Juice or Regular (not diet) soda OR If NPO, give 15 gram glucose 40% oral gel massaged into buccal mucosa OR if unconscious or uncooperative, give 25 gram (250 mL) Dextrose 10% IV over 15 minutes per protocol OR , if no IV access, 1 mg Glucagon IM. For BG less than 50 mg/dL: Oral treatment preferred:?? If able to drink, give 240 mL Juice or Regular (not diet) soda OR If NPO, give 30 gram glucose 40% oral gel massaged in buccal mucosa OR if unconsc ious or uncooperative, give 25 gram (250 mL) Dextrose 10% IV over 15 minutes per protocol OR, if no IV access, 1 mg Glucagon IM. Recheck BG in 30 minutes. May r epeat juice/soda, gel, dextrose or gluca juan once per episode. For persistent hypoglycemia, consider longer-acting treatment for the duration of the active insulin. glucagon (Glucagen) (1 mg/mL) injection solution 1 mg(Linked Du up 2) 1 mg, Intramuscular, EVERY 30 MIN PRN, S tarting Sat12/20/20 at 2055, Until Sat12/23/20 at 1421, Low blood sugar, For BG 50-70 mg/dL: Oral treatment preferred:?? If able to drink, give 120 mL Juice or Regular (not diet) soda OR If NPO, give 15 gram glucose 40% oral gel massaged into buccal mucosa OR if unconscious or uncooperative, give 25 gram (250 mL) Dextrose 10% IV over 15 minutes per protocol O R, if no IV access, 1 mg Glucagon IM. For BG less than 50 mg/dL: Oral treatment preferred:?? If able to drink, give 240 mL Juice or Regular (not diet) soda OR If NPO, give 30 gram glucose 40% oral ge l massaged in buccal mucosa OR if uncons cious or uncooperative, give 25 gram (250 mL) Dextrose 10% IV over 15 minutes per protocol OR, if no IV access, 1 mg Glucagon IM. Recheck BG in 30 minutes. May repeat juice/soda, gel, dextrose or gluc agon once per episode. For persistent hypoglycemia, consider longer-acting treatment for the duration of the active insulin., Routine glucose (GLUTOSE) 40% oral geL(Linked Group 2) 15-30 g, Buccal, EVERY 30 MIN PRN, Start ing Sat12/20/20 at 2056, Until Sat12/23/20 at 1421, Low blood sugar, For BG 50-70 mg/dL: Oral treatment preferred:?? If able to drink, give 120 mL Juice or Reg ular (not diet) soda OR If NPO, give 15 gram glucose 40% oral gel massaged into buccal mucosa OR if unconscious or uncooperative, give 25 gram (250 mL) Dextrose 10% IV over 15 minutes per protocol OR, i f no IV access, 1 mg Glucagon IM. For BG less than 50 mg/dL: Oral treatment preferred:?? If able to drink, give 240 mL Juice or Regular (not diet) soda OR If NPO, give 30 gram glucose 40% oral gel ma ssaged in buccal mucosa OR if unconsciou s or uncooperative, give 25 gram (250 mL) Dextrose 10% IV over 15 minutes per protocol OR, if no IV access, 1 mg Glucagon IM. Recheck BG in 30 minutes. May repe at juice/soda, gel, dextrose or glucagon once per episode. For persistent hypoglycemia, consider longer-acting treatment for the duration of the active insulin. 1 tube contains 15 grams of glucose (net weight of tube = 37.5 grams., Routine melatonin tablet 6 mg 0104 (Given - Prov ider: Akua Waters RN)2333 (Given - Provider: Sandro Gan RN) 6 mg, Oral, NIGHTLY PRN, Starting 08/01 at 2127, Until Sat12/23/20 at 1421, sleep, Routine Linked Groups Order Group 1: POCT Fingerstick Glucose (CANCELED) Routine, EVERY 4 HOURS, First occurrence on Sat12/20/20 at 2100, Until Specified
Consider choosing EVERY 4 HOURS as frequency for: - Type 1 Diabetes - At least 24 hours after coming off an insu sy drip - At least 24 hours after admis jose for DKA - Hypoglycemia unawareness - Patients who are otherwise unstable Select the same frequency for the correction bolus insulin order And insulin lispro (HumaLOG;Admelog) (100 unit/mL) subcutaneous injection vial 1-4 UnitsJump to med 1-4 Units, Subcutaneous, EVERY 4 HOURS S CHEDULED, First dose on Sat12/20/20 at 2057, Until Discontinued
CORRECTION BOLUS [1-4 Units] Sensitive Sliding Scale: Correction factor 40 ( 1 unit of insulin is expected to drop th e glucose 40 mg/dL) BG 160 - 200 Give 1 unit BG 201 - 240 Give 2 units BG 241 - 280 Give 3 units BG greater raphael n 280, give 4 units and recheck BG in 2 hours. - If recheck BG is LESS than 280, give no insulin and resume schedule - If recheck BG is GREATER than 280, give 4 units and repeat BG in 2 hours (no more than 3 times) &nb sp;& call for new insulin orders. DO NOT hold if NPO, unless specifically told to do so. Per Blood Glucose Monitoring Policy, re-check a BG of > 240 in 2 hours.
Routine Group 2: glucose (GLUTOSE) 40% oral geLJump to med 15-30 g, Buccal, EVERY 30 MIN PRN, Start ing Sat12/20/20 at 2055, Until Sat12/23/20 at 1421, Low blood sugar
For BG 50-70 mg/dL: Oral treatment preferred:?? If able to drink, give 120 mL Juic e or Regular (not diet) soda OR If NPO, give 15 gram glucose 40% oral gel massaged into buccal mucosa OR if unconscious or uncooperative, give 25 gram (250 mL) Dextrose 10% IV over 15 minutes per protoc ol OR, if no IV access, 1 mg Glucagon IM . For BG less than 50 mg/dL: Oral treatment preferred:?? If able to drink, give 240 mL Juice or Regular (not diet) soda OR If NPO, give 30 gram gluco se 40% oral gel massaged in buccal mucos a OR if unconscious or uncooperative, give 25 gram (250 mL) Dextrose 10% IV over 15 minutes per protocol OR, if no IV access, 1 mg Glucagon IM. Recheck BG in 30 minutes. May repeat juice/soda , gel, dextrose or glucagon once per episode. For persistent hypoglycemia, consider longer-acting treatment for the duration of the active insulin. 1 tube contains 15 grams o f glucose (net weight of tube = 37.5 grams.
Routine Or dextrose 10% infusionJump to med 250 mL, at 1,000 mL/hr, Intravenous, MELA RY 30 MIN PRN, Starting Sat12/20/20 at 2055, Until Sat12/23/20 at 1421
For BG 50-70 mg/dL: Oral treatment preferred:?? If able to drink, give 120 mL J uice or Regular (not diet) soda OR If LEAF FAT SCRAPER O, give 15 gram glucose 40% oral gel massaged into buccal mucosa OR if unconscious or uncooperative, give 25 gram (250 mL) Dextrose 10% IV over 15 minutes per pro tocol OR, if no IV access, 1 mg Glucagon IM. For BG less than 50 mg/dL: Oral treatment preferred:?? If able to drink, give 240 mL Juice or Regular (not diet) soda OR If NPO, give 30 gram gl ucose 40% oral gel massaged in buccal mu cosa OR if unconscious or uncooperative, give 25 gram (250 mL) Dextrose 10% IV over 15 minutes per protocol OR, if no IV access, 1 mg Glucagon IM. Rech britt BG in 30 minutes. May repeat juice/s raffi, gel, dextrose or glucagon once per episode. For persistent hypoglycemia, consider longer-acting treatment for the duration of the active insulin.
Or glucagon (Glucagen) (1 mg/mL) injection solution 1 mgJump to med 1 mg, Intramuscular, EVERY 30 MIN PRN, S tarting Sat12/20/20 at 2055, Until Sat12/23/20 at 1421, Low blood sugar
For BG 50-70 mg/dL: Oral treatment preferred:?? If able to drink, give 120 mL Juice or Regular (not diet) soda OR If N PO, give 15 gram glucose 40% oral gel massaged into buccal mucosa OR if unconscious or uncooperative, give 25 gram (250 mL) Dextrose 10% IV over 15 minutes per pr otocol OR, if no IV access, 1 mg Glucago n IM. For BG less than 50 mg/dL: Oral treatment preferred:?? If able to drink, give 240 mL Juice or Regular (not diet) soda OR If NPO, give 30 gram g lucose 40% oral gel massaged in buccal m ucosa OR if unconscious or uncooperative, give 25 gram (250 mL) Dextrose 10% IV over 15 minutes per protocol OR, if no IV access, 1 mg Glucagon IM. Rec heck BG in 30 minutes. May repeat juice/ soda, gel, dextrose or glucagon once per episode. For persistent hypoglycemia, consider longer-acting treatment for the duration of the active insulin.
Routine documented in this encounter Care Teams Quality Control Microbiologist Relationship Specialty Start Date End Date Griselda Stanley MD PCP - General 07/04/10 02/03/22 documented as of this encounter
--- OUTSIDE RECORDS SUMMARY | 2022-02-26 03:59 | XMS_ITS | Encounter Summary ---
:1955 Author Organization [facility] [place] [address] Care Team Providers Name Role Phone Griselda Stanley MD Primary Care Provider Encounter Details Date Type Department Care Team Description 08/23/2020 Orders Only [place] [facility] [place]app, Parkinson's disease [facility] [place] [address] [facility] [phone] [address] [place], [place] [address] Social History Tobacco Use Types [...] place to sleep or slept in a snf (including now)? Sex Assigned at Date Recorded Not on file documented as of this encounter Plan of Treatment Upcoming Encounters Date Type Specialty Care Team Description 03/20/2022 Office Visit Neurology Vishnu Hooper MD [facility] NEUROLOGY DEPT. [place], [place] [address] (Wo rk) documented as of this encounter Visit Diagnoses Diagnosis Parkinson's disease Paralysis agitans documented in this encounter Care Teams Vertical Borer Relationship Specialty Start Date End Date Griselda Stanley MD PCP - General 07/04/10 02/03/22 documented as of this encounter
--- OUTSIDE RECORDS SUMMARY | 2022-02-26 03:59 | XMS_ITS | Encounter Summary ---
:1955 Author Organization [facility] [place] [address] Care Team Providers Name Role Phone Griselda Stanley MD Primary Care Provider Reason for Visit Reason Onset Date Comments Other 03/02/2020 Encounter Details Date Type Department Care Team Description 03/02/2020 Telephone Neurology [place] [facility] [place]nu Hooper MD Other [facility] [place] [address] NEUROLOGY DEPT. [phone] [place], [place] [address] (Wo rk) Social History Tobacco [...] this encounter Miscellaneous Notes Telephone Encounter - Montserrat Jesus - 03/02/2020 10:13 AM EDT Call Center / Content Designer Message - General Issue Call Provider patient sees in Clinic: Vishnu Hooper Caller and relationship (if other than patient-full name): Gwen, spouse Call back number: [phone] Ok to leave a message: yes Reason for call: Gwen is calling stating she would like to reschedule this patients appointment from december, this remote mortgage underwriter offered thee first available being in May. Gwen is wondering if there is possibly something much sooner, please call back to discuss. Disposition of Call (choose one and remove others): ??? Routine message sent to Content Designer: x documented in this encounter Plan of Treatment Upcoming Encounters Date Type Specialty Care Team Description 03/20/2022 Office Visit Neurology Vishnu Hooper MD [facility] NEUROLOGY DEPT. [place], [place] [address] (Wo rk) documented as of this encounter Visit Diagnoses Not on filedocumented in this encounter Care Teams Studio Associate Relationship Specialty Start Date End Date Griselda Stanley MD PCP - General 07/04/10 02/03/22 documented as of this encounter
--- OUTSIDE RECORDS SUMMARY | 2022-02-26 03:59 | XMS_ITS | Encounter Summary ---
:1955 Author Organization [facility] [address] Care Team Providers Name Role Phone Griselda Stanley MD Primary Care Provider Reason for Visit Auth/Cert Specialty Diagnoses / Procedures Referred By Contact Refer red To Contact Diagnoses Urinary tract infection Physical deconditioning and falls Referral ID Status Reason Start Date Expiration Date Visits Requ ested Visits Authorized [id number] 1 1 Encounter Details Date Type Department Care Team Description 12/23/2020 - Hospital Encounter Med [place] [address] Syncope, unspecified syncope type; 12/27/2020 [place] [address] Parkinson's disease; 10 Acute [place]stitis [place] [address] Social History Tobacco Use Types Packs/Day Years [...] place to sleep or slept in a prison (including now)? Sex Assigned at Date Recorded Not on file documented as of this encounter Last Filed Vital Signs Vital Sign Reading Time Taken Comments Blood Pressure 142/74 12/27/2020 3:55 PM EDT Pulse - - Temperature 36.6 ??C (97.9 ??F) 12/27/2020 3:55 PM EDT Respiratory Rate 19 12/27/2020 3:55 PM EDT Oxygen Saturation 96% 12/27/2020 3:55 PM EDT Inhaled Oxygen Concentration - - Weight 102.2 kg (225 lb 5 oz) 12/24/2020 6:25 PM EDT Height 182.9 cm (6' 0.01) 12/24/2020 6:25 PM EDT Body Mass Index 30.55 12/24/2020 6:25 PM EDT documented in this encounter Discharge Summaries Matt Petit MD - 12/27/2020 2:29 PM EDT Images from the original note were not included. [facility] Discharge Summary Admit date: 12/23/2020 Expected D/C date and time: 12/27/2020 2:39 PM Attending Physician: Matt Petit MD Discharge Physician: Matt Petit MD Discharge disposition: Home with services Discharge Diagnoses (Hospital Problems) Active Hospital Problems Urinary tract infection Resolved Hospital Problems No resolved problems to display. Active Hospital Problems Diagnosis ??? Urinary tract infection Resolved Hospital Problems No resolved problems to display. Active Non-Hospital Problems Diagnosis ??? Encephalopathy, toxic ??? UTI (urinary tract infection) ??? Frailty ??? Parkinson's disease ??? Dysphagia ??? Atrial fibrillation ??? Viral meningitis ??? S/P deep brain stimulator placement ??? Mixed anxiety and depressive disorder ??? Sensory ataxia ??? Diabetic polyneuropathy ??? Orthostatic hypotension ??? Hypertension ??? Hyperlipidemia ??? Diabetes mellitus ??? Carpal tunnel syndrome, bilateral ??? Sciatica of left side ??? Abnormal LFTs (liver function tests) ??? Cholelithiasis ??? REM behavioral disorder ??? Ankle fracture, left ??? Fatigue Follow-up Recommendations for Providers: #Patient's diltiazem was discontinued. His metoprolol was reduced to 50 mg. He exhibited good heart rate control with heart rates in the 70s on this regimen. Would recommend decreasing further if possible so as to minimize side effects such as lightheadedness/dizziness and blunting of physiologic heart rate responses Pending Studies and Lab Data: none Hospital course: Timbo Su is a 65 y.o. male with hx of advanced Parkinson's disease status post deep brain stimulator, atrial fibrillation, hypertension, diabetes, hyperlipidemia who was admitted at [facility] from 12/21-12/23 for progressively worsening altered mental status, weakness, and falls. ?? notes that at baseline, patient ambulates around the house and is able to use a recumbent exercise bike, albeit he has progressively become weaker. has noted increased frequency of tonic-clonic jerking as well. Additionally, noted increased hallucinations. Initial labs were notable for a creatinine of 1.01 and a lactate of 3.7. ?? He was ultimately found to have a UTI and is currently on cefpodoxime. However, of note, there was not significant pyuria in admission urine sample (3 WBC/hpf) and eventually, urine culture grew 10,000-49,000 CFU mixed mucosal matt. ?? Neurology was consulted, but did not believe that there was suspicion for myelopathy or encephalitis. They had not recommended an LP at that time. ?? Patient was transferred to [facility] for continued rehab. Shortly after transfer, patient was noted to have an episode of brief loss of consciousness with resultant collapse after standing up froma seated position. Patient was mildly confused thereafter, but quickly recovered. He reported no pain and no headache. Patient did not have any other notable symptomatology. Discussed case with atArlyn ann, and she had confirmed above history. Additionally, she notes that prior to admission, patient had been feeling more dizzy. His lab work suggested hypovolemia as evidenced by an elevatedBUN:Creatinine as well as urinalysis with elevated specific gravity and hyaline casts. Orthostatic vital signs were limited by patient's functional status but blood pressure improved with IV fluids. His symptoms and functional status improved throughout his stay. He was noted to be on a beta-anjelica with heart rates generally in the 50s to low 60s. Due to persistent though improved lightheadednessand dizziness, his metoprolol succinate was down tapered from 150 mg daily to 50 mg daily. His resting heart rate improved from the 60s to mid 70s. Could consider further dose titration as an outpatient. The patient worked with physical therapy and Occupational Therapy during his stay with improvement. He ultimately met criteria for discharge home. Significant Procedures, Labs and Imaging Tests: Operations: None Other Major Procedures: none Labs: Recent Labs 12/27/20 0623 12/26/20 0555 12/25/20 0625 WBC 5.8 6.3 6.0 HGB 11.6* 11.8* 11.8* PLATELET 175 178 183 Recent Labs 12/27/20 0623 12/26/20 0555 12/25/20 0625 NA 140 139 141 K 3.7 3.7 3.9 CL 104 104 105 CO2 27 25 27 BUN 12 13 13 CREATININE 0.80 0.69* 0.77* Recent Labs 12/27/20 0623 12/26/20 0555 12/25/20 0625 CALCIUM 9.1 9.0 9.1 MAGNESIUM 0.80 0.70 0.70 PHOS 3.5 3.6 3.0 Recent Labs 12/20/20 1535 AST 35 ALT 18 ALKPHOS 113 BILITOT 0.7 BILIDIR 0.2 Recent Labs 12/24/20 0630 12/23/20 1915 TROPONINT <0.01 <0.01 CK 475* 637* Studies: none Discharge Medications/Significant Medication Changes: Your Medications Continued medications with new dosing Dose Details metoprolol succinate XL 50 mg Tablet sr Commonly known as: Toprol-XL Take 1 tablet by mouth daily. What changed: how much to take 50 mg Quantity: 30 tablet Refills: 12 Continued medications, unchanged Dose Details acetaminophen 500 [...] by mouth daily. 1,000 Units Refills: [address] 30 mg Cpdr [...] daily (with meals). 1,000 mg Refills: 0 mirabegron 25 mg Tablet sr Take 25 mg by mouth daily. 25 mg Refills: 0 omeprazole 40 mg Cpdr Commonly known as: PriLOSEC Take 40 mg by mouth daily as needed. 40 mg Refills: 0 polyethylene glycoL 17 gram Pwpk Commonly known as: Miralax Take 17 g by mouth daily as needed. 17 g Quantity: 14 each Refills: 0 STOPPED Medications cefpodoxime 200 mg Tab Commonly known as: Vantin dilTIAZem XR 240 mg Cdcr Commonly known as: Dilacor XR rivaroxaban 20 mg Tab Commonly known as: Xarelto Allergies: No Known Allergies Discharge Condition: At the time of discharge patient's vitals were as noted below. Patient Vitals for the past 8 hrs: BP Temp Temp src SpO2 12/27/20 0830 -- 36.4 ??C (97.5 ??F) Oral 95 % 12/27/20 0825 150/87 -- -- -- Patient Instructions: Patient Instructions You were hospitalized for falls. You were found to have a suspected urinary tract infection. You were treated with biotics and improved. We also suspect that you likely were a bit dehydrated, probably because of your infection. This likely contributed to your feelings of lightheadedness and dizziness which caused you to fall. As we discussed, one of your medications (metoprolol) slows your heart ratedown. This can impede your body's ability to compensate for changing positions or exerting herself as it prevents the heart from speeding up to provide blood to your brain. Because of this, I have tapered her dose of metoprolol down to 50 mg. It is possible that this medication could be decreased evenfurther, perhaps to 25 mg as an outpatient. Another medication which also slows your heart rate down(called diltiazem) was stopped while you were at [facility]. Your heart rate has remained under good control during monitoring here. As such, I do not think you need to restart the diltiazem. We have made no other changes to your medications. Please see below for details of your follow-up appointments and medication list. PCP appointment: Saturday at 9:15am with Dr. Stanley Future Appointments Date Time Provider Department Center 12/30/2020 10:00 AM Vishnu Hooper [place] [facility] [place] [place] Instructions Discharge to: Home with services: Specific instructions related to your condition: Physical Therapy recommendations: Complete this exercises below while holding onto your wooden rail/bar you have at home. Have your tie the cierra theraband around your ankles then complete taking as big side steps as you are able. X 2 lengths of your bar each direction. Use your Front wheeled walker at all times. Close supervision/ light Contact guard for all standing mobility to decrease risk of falls. Cues to lift feet up and to keep feet apart. Occupational Therapy recommendations: Equipment Needs: Mobility Aids: Front Wheeled Walker Adaptive Equipment: Activities of Daily Living: Bathe: Dress: Socks: Shoes: Toilet Transfers: Shower Transfers: Have someone with him when he is transferring in and out of the shower. Dry him off as much and as well as possible before stepping out of the wet shower. Functional Mobility: Marcell needs supervision and contact guard assist when up and ambulating currently. He may periodically need verbal cues as well. He is rather impulsive. Functional Activities: Meal Preparation/plan: Clothing and bathing item collection: Future Appointments and Orders Future Appointments and Orders Future Appointments Provider Department Dept Phone 12/30/2020 10:00 AM Vishnu Hooper MD [place] [facility] [place]rive at: [place] [phone] Future Orders Complete By Expires Referral to Home Health - at DISCHARGE [[id number] CPT(R)] As directed Process Instructions: Scheduling Instructions: Comments: DOCUMENTATION FOR VNA SERVICES (INCLUDING THOSE PATIENTS WITH MEDICARE COVERAGE REQUIRING HOME VNA SERVICES AND/OR HOSPICE SERVICES) PATIENT'[place] LOCATION: [place] [address] or [facility] [phone] (home) Cell: No relevant phone numbers on file. Developmental Therapist's Name: dakota Cramer In discussion with the attending physician, it is certified that this patient is under their care and that they, or a Nurse Practitioner,Clinical Nurse specialist or Physician Lastex Operator who is working directly with them, had a face to face encounter that meets the physician face to face encounter requirements with this patient on 12/27/2020 The encounter with the patient was in whole, or in part, for the following medical condition, which is the primary reason for home health care services: weakness/falls In discussion with the provider, it is certified that, based on their findings, the following services are medically necessary for home health services. To provide the following care/treatments with the clinical findings supporting the need for servicesas follows: HOME CARE ORDERS: RN ORDERS:Assess wound or incision, vital signs, cardiopulmonary status, nutrition, hydration, elimination, meds effectiveness and management; reinforce education re health issues TIRE CLASSIFIER to assist with community referrals PT ORDERS: Continue rehab for endurance, gait stability and strength with mobility and transfers. Home safety evaluation. Home exercise program if appropriate. OT: assess and continue rehab for managing ADL's. Assess for DITCH CLEANER need HOME HEALTH CARE AGENCY: [facility] PHONE: [phone] FAX: [phone] Start of care: 24-48 hours post dc FOR MEDICARE ONLY: (please delete this section if not Medicare) In discussion with the attending physician, it is certified that the clinical findings support that this patient is homebound because absences from home require considerable and taxing effort due to: Unable to ambulate community surfaces or distances unassisted due to pain, LE weakness or decreased balance and risk for falls Unsteady Gait, poor balance , requiring assistive devices and/or assistance of another Please note that any additional orders needs or changes will need to be obtained from this patient'sPCP: Griselda Stanley MD [address] [place] [address] / [facility] [id number] All A agencies which cover the area of patient's residence have been reviewed, either verbally or in writing, and patient/family have chosen the home health care agency noted Questions: Agency name and contact information: [facility] Patient location post discharge: Home What services are requested: Registered Nurse Physical Therapy Social Work Occupational Therapy Home Health Aide Start date: Responsible MD post discharge contact info: PCP Inpatient Provider Contact Information: For questions regarding this summary or this inpatient hospitalization, please call the hospital cat scanner operator at [phone] and ask for the hospitalist welder setter electron beam machine. Matt Petit MD 12/27/2020 documented in this encounter Discharge Instructions Discharge InstructionsMatt Petit MD - 12/27/2020 2:39 PM EDT Images from the original note were not included. Discharge to: Home with services: Specific instructions related to your condition: Physical Therapy recommendations: Complete this exercises below while holding onto your wooden rail/bar you have at home. Have your tie the cierra theraband around your ankles then complete taking as big side steps as you are able. X 2 lengths of your bar each direction. Use your Front wheeled walker at all times. Close supervision/ light Contact guard for all standing mobility to decrease risk of falls. Cues to lift feet up and to keep feet apart. Occupational Therapy recommendations: Equipment Needs: Mobility Aids: Front Wheeled Walker Adaptive Equipment: Activities of Daily Living: Bathe: Dress: Socks: Shoes: Toilet Transfers: Shower Transfers: Have someone with him when he is transferring in and out of the shower. Dry him off as much and as well as possible before stepping out of the wet shower. Functional Mobility: Marcell needs supervision and contact guard assist when up and ambulating currently. He may periodically need verbal cues as well. He is rather impulsive. Functional Activities: Meal Preparation/plan: Clothing and bathing item collection: Patient InstructionsMatt Petit MD - 12/27/2020 2:20 PM EDT You were hospitalized for falls. You were found to have a suspected urinary tract infection. You were treated with biotics and improved. We also suspect that you likely were a bit dehydrated, probably because of your infection. This likely contributed to your feelings of lightheadedness and dizziness which caused you to fall. As we discussed, one of your medications (metoprolol) slows your heart ratedown. This can impede your body's ability to compensate for changing positions or exerting herself as it prevents the heart from speeding up to provide blood to your brain. Because of this, I have tapered her dose of metoprolol down to 50 mg. It is possible that this medication could be decreased evenfurther, perhaps to 25 mg as an outpatient. Another medication which also slows your heart rate down(called diltiazem) was stopped while you were at [facility]. Your heart rate has remained under good control during monitoring here. As such, I do not think you need to restart the diltiazem. We have made no other changes to your medications. Please see below for details of your follow-up appointments and medication list. PCP appointment: Saturday at 9:15am with Dr. Stanley Future Appointments Date Time Provider Department Center 12/30/2020 10:00 AM Vishnu Hooper MD [facility] [place] documented in this encounter Medications at Time [...] 17 g by mouth 14 each 0 12/29/20 20 (Miralax) 17 gram daily as needed. [...] needed. 1 Release(E.C.) capsule three times weekly Miconazole Nitrate Apply topically 2 0 12/30/2020 (Fungoid Tincture) 2 % times daily. Tincture mirabegron 25 mg Tablet Take 25 mg [...] documented as of this encounter Progress Notes Lorrie Dockery RN - 12/27/2020 6:36 PM EDT Timbo Su discharged per provider order to home with VNA via car. All IV???s removed. Dischargeinstructions reviewed with patient and spouse. All questions or concerns answered at this time. Patient encouraged to call with any further questions or concerns. Copy of After Visit Summary given to patient at time of discharge. All personal belongings returned to patient, including prescription medications. Patient assisted to personal vehicle via staff member and wheelchair. Lorrie Dockery RN, 12/27/2020 Denisha Villarreal OT - 12/27/2020 6:36 PM EDT Pt discharged prior to being seen by evaluating therapist. At the time of discharge pts Goals and Recommendations were as follows: Goals: ?1. LTG: Pt demonstrate improved independence to??Min A?with total body dressing taskswith AE/AD as needed. ?STG:?Pt demonstrate improved independence to??Mod A??with total body dressing tasks with AE/AD as needed. ?Date Goal Established:??12/24/20 ?Estimated date to achieve goal by:??12/30/20?[]?New Goal ?[]?Goal Partially Met ?[x]?Goal Ongoing ?[]?Goal Met ?2. LTG:??Pt demonstrate improved independence to??Min A?with total body sink level/shower bathing with AE/AD as needed. ?STG:?Pt demonstrate improved independence to??Mod A??with total body sinklevel/shower bathing with AE/AD as needed. ?Date Goal Established:??12/24/20 ?Estimated date to achieve goal by:??12/30/20?[]?New Goal ?[]?Goal Partially Met ?[x]?Goal Ongoing ?[]?Goal Met ?3.??LTG: Pt demonstrate improved independence to??SUP A??with total toileting tasks including toileting transfers with AE/AD as needed. ?STG:?Pt demonstrate improved independence to??Min A?with total toileting tasks including toileting transfers with AE/AD as needed.?Date Goal Established:??12/24/20 ?Estimated date to achieve goal by:??12/30/20?[]?New Goal ?[]?Goal Partially Met ?[x]?Goal Ongoing ?[]?Goal Met ?4.??LTG: Pt demonstrate improved independence to??SUP A??with FM tasks including feedingand opening containers??with AE/AD as needed.?STG:?Pt demonstrate improved independence to??SUP A??with FM tasks including feeding and opening containers??with AE/AD as needed.?Date Goal Established:??12/24/20 ?Estimated date to achieve goal by:??12/30/20?[x]?New Goal ?[x]?Goal Partially Met: met for self-feeding with built up utensils ?[]?Goal Ongoing ?[]?Goal Met Recommendations: Recommendation for pt to continue OT via for independence and safety in the homesetting with self care tasks. Recommendation for pt to continue sitting to complete self care tasks including showering and dressing, use adaptive AE for self care tasks including built up utensils. Maryse Moore BOTTLE PACKING MACHINE CLEANER - 12/27/2020 5:42 PM EDT P.T. TREATMENT FLOWSHEET: Diagnosis: Continued weakness, Parkinson's disease. Rehab Potential: Good Evaluation Date: 12/24/2020 Orders through: 01/07/2021 Referring Physician: Jan Aguayo MD Anticipated DME and discharge needs: TBD, has front wheeled walker and hospital bed. Precautions: Full code, fall risk Weight Bearing status: full Mod I room privileges (y/n): no Treatment included: Tx date and day# 12/26 AM Day 1 12/26 PM Day 1 12/27 AM Day 2 12/27 PM Day 2 Transfer Bed Mobs Sit/supine Sit/stand Supervision with FWW Supervision with FWW Supervision with FWW Supervision with FWW Gait CGA and VCs for ground clearance and wider CAROLINE, FWW, w/c follow, 210' x 2 Pt wearing slipper socks. Light CGA, shoes on, 210' + 275'. PT needed VCs for safety awareness, decreased speed, and widerBOS. Light CGA, shoes on, 210' x 2. Pt needed VCs for ground clearance and for general safety with FWW. Light CGA, w/c follow, 1000'+ x 2, inside and outside terrain, uneven surfaces, inclines. VCs needed for general safety. PT needed assist for safety when going over edge of throw rug in hallway. Stairs Up and down 4 x 1 with bilateral rails. Up and down 4 x 3 with single rial and VCs needed to avoid crossing feet over one another going up and down stairs to improve safety. PT needed CGA. Therex: Standing // bars: forward stepping over barriers with supervision. RTB: side steps x 1 length of // bar each direction. Sit to stand without UE from standard 18 w/c x10. Short Sitting Long Sitting Supine Neuro: Time in: 1140 1435 1155 1355 Total minutes: 25 30 20 35 Charges: Gt-1 therex-1 Gt-2 Gt-1 Gt-2 Initials: AW AW AW AW Comments (write date, AM/PM, and your comments needed.): Matt Petit MD - 12/27/2020 2:17 PM EDT Hospital Medicine - Attending Day of Discharge Documentation Discharge diagnosis Active Hospital Problems Diagnosis ??? Urinary tract infection Resolved Hospital Problems No resolved problems to display. Secondary Issues Active Non-Hospital Problems Diagnosis ??? Encephalopathy, toxic ??? UTI (urinary tract infection) ??? Frailty ??? Parkinson's disease ??? Dysphagia ??? Atrial fibrillation ??? Viral meningitis ??? S/P deep brain stimulator placement ??? Mixed anxiety and depressive disorder ??? Sensory ataxia ??? Diabetic polyneuropathy ??? Orthostatic hypotension ??? Hypertension ??? Hyperlipidemia ??? Diabetes mellitus ??? Carpal tunnel syndrome, bilateral ??? Sciatica of left side ??? Abnormal LFTs (liver function tests) ??? Cholelithiasis ??? REM behavioral disorder ??? Ankle fracture, left ??? Fatigue I have personally seen and examined the patient and they are ready for discharge. I spent >30 minutes (Day of Discharge Code 48335) involved in the final examination of the patient, discussion of the hospital stay, instructions for continuing care to all relevant caregivers, and preparation of discharge records, prescriptions and referral forms. Plans ? Discharge to home with VNA ? Follow-up scheduled with PCP ? Please see the Discharge Summary for complete details of any medication changes and additional plans. Matt Petit MD Larry Robbins - 12/27/2020 1:54 PM EDT OT Progress Note Larry Robbins Note Type: Daily Note Order Date: 12/30/20 Frequency: QD 4-6 x weekly Equipment Recommendations: At home pt has lift chair, FWW/cane, ramp, built in shower seat, bed withbed rail and trapeze and horizontal grab bar Equipment Provided: []? Seo Strategist []?Sock Aid []?Shoe Horn []?Dressing Stick []?Long Handled Sponge []?Elastic Shoe laces []?Walker Basket []?Other: ?? Discharge Recommendations: Recommend increased caregiver support at home, potential LTC. ?? Precautions/Restrictions: Full code, DM, HIGH fall risk Patient Assessment: Pt was seen for OT session. Focus of the session was on education and demonstration of use of built up handles for feeding utensils. Pt was seated in the chair when therapist arrived for session. Pt completed task practice with built up handles for feeding tasks. At the end of the session pt was left seated in the chair with all needs met, call white in reach. At the time of session pt reported he did not want to get dressed at this time. Pt reported s/p lunch meal increase ease of utilizing utensils with built up handles. Date 12/27/20 Treatment Day # 1 ADL's Bathing [] Independent [] Mod. I [] Min A [] Mod A [] Max A [] Dep [] Verb. Cues [] Supervision [] Set up [] CGA Upper Body Dressing [] Independent [] Mod. I [] Min A [] Mod A [] Max A [] Dep [] Verb. Cues [] Supervision [] Set up [] CGA Lower Body Dressing [] Independent [] Mod. I [] Min A [] Mod A [] Max A [] Dep [] Verb. Cues [] Supervision [] Set up [] CGA Toileting [] Independent [] Mod. I [] Min A [] Mod A [] Max A [] Dep [] Verb. Cues [] Supervision [] Set up [] CGA Feeding [] Independent [] Mod. I [] Min A [] Mod A [] Max A [] Dep [] Verb. Cues [x] Supervision [x] Set up [] CGA Task practice of placing red foam tubing on utensils for build up handle to ease grasp required during feeding tasks. Pt reported increased ease with holding utensils with built up handles. Grooming [] Independent [] Mod. I [] Min A [] Mod A [] Max A [] Dep [] Verb. Cues [] Supervision [] Set up [] CGA Mobility Functional Mobility Bed Mobility Toilet Transfers Shower Transfers Wheelchair Mobility Therapeutic Exercises ROM FM Skills Sitting/Standing Balance/Tolerance Sensory Splinting Cognition IADL's O2 HR BP O2 HR BP O2 HR BP O2 HR BP O2 HR BP Pre-activity During activity Post activity Start Time 11:40 AM Minutes 16 minutes Charges [x] Self-Care/Home Management x1 [] Self-Care/Home Management x [] Self- Care/Home Managementx [] Self-Care/Home Management x [] Self-Care/Home Management x [] Therapeutic/Functional Dynamic Activities x [] Therapeutic/Functional Dynamic Activities x [] Therapeutic/Functional Dynamic Activities x [] Therapeutic/Functional Dynamic Activities x [] Therapeutic/Functional Dynamic Activities x [] Therapeutic Exercise x [] Therapeutic Exercise x [] Therapeutic Exercise x [] Therapeutic Exercise x [] Therapeutic Exercise x [] Neuro Re-education x [] Neuro Re-education x [] Neuro Re-education x [] Neuro Re-education x [] Neuro Re-education x [] [] [] [] [] Pain Reported/RN notified Pt declined pain at this time. Focus for Next Session: Assure safety with spouse providing care at home with all self care tasks CONNIE/OTR in continuous communication regarding POC, supervision ongoing. Barriers to d/c at this time include: [] Home environment [] Family support [] Equipment needs [x] Cognitive deficits impacting functional independence [x] Physical deficits impacting functional independence [x] Self-care deficits impacting functional independence [] Other Education Completed ?? Education Topics: Role of OT and Adaptive Equipment training and recommendations ?? Completed with: [x] Patient [] Spouse [] Significant other [] Family [] Caregiver ?? [] Other ?? Completed by [x] Verbal education [x] Demonstration [] Handout [] Other: ?? Response to Education: [] Stated Understanding [x] Reinforcement necessary [x] Returned demonstration [] Demonstrated understanding [] No evidence of learning [] Refused Goals: ?1. LTG: Pt demonstrate improved independence to Min A with total body dressing tasks with AE/AD as needed. ?STG:?Pt demonstrate improved independence to Mod A with total body dressing tasks with AE/AD as needed. ?Date Goal Established: 12/24/20 ?Estimated date to achieve goal by: 12/30/20 ?[]?New Goal ?[]?Goal Partially Met ?[x]?Goal Ongoing ?[]?Goal Met ?2. LTG:??Pt demonstrate improved independence to Min A with total body sink level/shower bathing with AE/AD as needed. ?STG:?Pt demonstrate improved independence to Mod A with total body sink level/shower bathing with AE/AD as needed. ?Date Goal Established: 12/24/20 ?Estimated date to achieve goal by: 12/30/20 ?[]?New Goal ?[]?Goal Partially Met ?[x]?Goal Ongoing ?[]?Goal Met ?3.??LTG: Pt demonstrate improved independence to SUP A with total toileting tasks including toileting transfers with AE/AD as needed. ?STG:?Pt demonstrate improved independence to Min A with total toileting tasks including toileting transfers with AE/AD as needed. ?Date Goal Established: 12/24/20 ?Estimated date to achieve goal by: 12/30/20 ?[]?New Goal ?[]?Goal Partially Met ?[x]?Goal Ongoing ?[]?Goal Met ?4.??LTG: Pt demonstrate improved independence to SUP A with FM tasks including feeding and opening containers with AE/AD as needed. ?STG:?Pt demonstrate improved independence to SUP A with FM tasks including feeding and opening containers with AE/AD as needed. ?Date Goal Established: 12/24/20 ?Estimated date to achieve goal by: 12/30/20 ?[x]?New Goal ?[x]?Goal Partially Met: met for self-feeding with built up utensils ?[]?Goal Ongoing ?[]?Goal Met Yudy Pinzon RN - 12/27/2020 12:23 PM EDT Case Management Discharge Plan advanced Parkinson's disease Continued weakness DISCHARGE PLANNING: Chart reviewed with team; patient discussed at daily rounds and at bedside where pt was given the opportunity to have there questions and concerns addressed relative to medical plan of care. Anticipated Discharge Disposition: Home care from [facility] once home orders pended for SN/PT/OT/DITCH CLEANER/TIRE CLASSIFIER Expected DC Date: 12/27 Barriers to Discharge: None at this time Cm spoke to . She stated she is able to take pt home today but it would be after work between 6-7pm. CM spoke to provider and rehab and they both cleared pt for d.c. and are ok with time frame. CM brought up looking to the future and time when pt may need more care or placement. stated she isconcerned about it and asked for suggestions. CM encouraged her to go visit some facilities she may like and speak to them about admisson and payment options. CM encouraged her to apply for medicaid aspt may qualify for some form of it and it would open up other avenues of support. agreed to this and cm provided [facility] website or to call 211. CM reminded her it is a process and to take on small pieces at a time but to keep chipping away at it. She agreed. Nitin BHATIA Nola North RN - 12/27/2020 5:32 AM EDT Patient had a good night. Assisted to reposition himself in bed. He is quite needy. Bed alarm on andcall white within reach. 0700 Patient ripped his tele leads off. Says he is going home.He is a bit confused. A&Ox 3 reassured and encouraged get breakfast ordered. Bed alarm on Maryse Moore PTA - 12/26/2020 5:42 PM EDT P.T. TREATMENT FLOWSHEET: Diagnosis: Continued weakness, Parkinson's disease. Rehab Potential: Good Evaluation Date: 12/24/2020 Orders through: 01/07/2021 Referring Physician: Jan Aguayo MD Anticipated DME and discharge needs: TBD, has front wheeled walker and hospital bed. Precautions: Full code, fall risk Weight Bearing status: full Mod I room privileges (y/n): no Treatment included: Tx date and day# 12/26 AM Day 1 Transfer Bed Mobs Sit/supine Sit/stand Supervision with FWW Supervision with FWW Gait CGA and VCs for ground clearance and wider CAROLINE, FWW, w/c follow, 210' x 2 Pt wearing slipper socks. Light CGA, shoes on, 210' + 275'. PT needed VCs for safety awareness, decreased speed, and widerBOS. Stairs Up and down 4 x 1 with bilateral rails. Up and down 4 x 3 with single rial and VCs needed to avoid crossing feet over one another going up and down stairs to improve safety. PT needed CGA. Therex: Standing // bars: forward stepping over barriers with supervision. RTB: side steps x 1 length of // bar each direction. Sit to stand without UE from standard 18 w/c x10. Short Sitting Long Sitting Supine Neuro: Time in: 1140 1435 Total minutes: 25 30 Charges: Gt-1 therex-1 Gt-2 Initials: AW AW Comments (write date, AM/PM, and your comments needed.): Delia Thakkar RD - 12/26/2020 2:49 PM EDT Nutrition Consult Note Patient admitted with UTI,, relevant medical history includes advanced parkinson's,A-FIB,toxic encephalopathy,depressive disorder Timbo Su is a 65 y.o. male Reason for intervention: Nutritional assessment,consult Nutrition Recommendations: Patient is inappropriate for education;could not interview patient;not oriented. Will phone to assess education needs. Will follow intakes,labs,progress,nutritional status Active Orders Diet Consistent Carbohydrate diet 60/60/75 Frequency: Effective Now Number of Occurrences: Until Specified Lab Results Component Value Date NA 139 12/26/2020 K 3.7 12/26/2020 CL 104 12/26/2020 CO2 25 12/26/2020 BUN 13 12/26/2020 CREATININE 0.69 (L) 12/26/2020 ESTGFR 100 12/26/2020 MAGNESIUM 0.70 12/26/2020 CALCIUM 9.0 12/26/2020 PHOS 3.6 12/26/2020 AST 35 12/20/2020 ALT 18 12/20/2020 ALKPHOS 113 12/20/2020 BILITOT 0.7 12/20/2020 BILIDIR 0.2 12/20/2020 [id number] 12/23/2020 Lab Results Component Value Date POCGLU 259 (H) 12/26/2020 POCGLU 111 12/26/2020 POCGLU 79 12/25/2020 POCGLU 99 12/25/2020 Skin Status: Shift Pressure Injury Prevention Occiput: No Injury Thoracic Spine: No Injury Sacral: No Injury Ischial - left: No Injury Ischial - right: No Injury Heel - left: No Injury Heel - right: No Injury Elbow - left: No Injury Elbow - right: No Injury Device Sites: O2 sat monitor Relevant medications: noted;glipizide and metformin Last Bowel Movement: 12/23/20 Admit Weight: 102.2 kg Estimated body mass index is 30.55 kg/m?? as calculated from the following: Height as of this encounter: 182.9 cm (6' 0.01). Weight as of this encounter: 102.2 kg (225 lb 5 oz). Bruin Body Weight: 77.6kg Usual Body Weight: 107.5kg is reported;stable weight. Wt Readings from Last 10 Encounters: 12/24/20 102.2 kg (225 lb 5 oz) 12/22/20 107.5 kg (236 lb 15.9 oz) 09/21/20 103 kg (227 lb) 08/23/20 103 kg (227 lb) 12/25/19 105.3 kg (232 lb 2.3 oz) 12/21/19 103.9 kg (229 lb 0.9 oz) 06/11/19 98.4 kg (217 lb) 11/18/18 96.2 kg (212 lb) 08/14/18 94.8 kg (209 lb) 03/31/18 102.1 kg (225 lb) Assessment: Estimated needs: Calories: 2025 ([id number] ) Protein: 77-93 grams (1.0-1.2g/kg) Nutrition Focused Physical Exam (NFPE): Not performed Not indicated Nutrition intake and intake history/Interview: consuming 100% of CCC;level two diet Protein-calorie Malnutrition: Not identified (BELKIS Le J Parenteral Enteral Nutr. 2011;36(3): 273-83) Nutrition to continue to follow up while inpatient Delia Thakkar RD [phone] Yudy Pinzon RN - 12/26/2020 12:39 PM EDT Case Management Discharge Plan advanced Parkinson's disease Continued weakness DISCHARGE PLANNING: Chart reviewed with team; patient discussed at daily rounds and at bedside where pt was given the opportunity to have there questions and concerns addressed relative to medical plan of care. Anticipated Discharge Disposition: Home care from [facility] once home orders pended for SN/PT/OT/DITCH CLEANER/TIRE CLASSIFIER Expected DC Date: 12/27 or 12/28 Barriers to Discharge: None at this time KULWINDER spoke to who states she is anxious to get pt home after the phone call she has this morning.She states he has memory issues and when he is in the hospital he gets worse and today was telling her he is being held here and given drugs. She feels he does better in his home. CM agreed. KULWINDER reviewed home care companies with her as she was asking for assistance at home and had used [facility] in the past. Cm completed referral and pended orders. KULWINDER spoke to [place] at [facility] [phone] and shestated they can see pt no issues. states they have FWW/adj bed/trapez/commode over toilet/shower bench and good grab bars. She and son are completing ramp today to enter home. Cm provided contact info. An Important Message from Medicare about Your Rights letter reviewed with over the phone she verbalized understanding, refused copy and original placed in chart. Notice of transfer or DC also reviewed with BARallisonclint BHATIA Yudy Pinzon RN - 12/26/2020 12:15 PM EDT I reviewed a list of Home Health Agencies/DME vendors with patient which serve the preferred geographic area. Education was provided about the right to choose where referrals are placed. Patient requests referral to [facility]. PHONE: [phone] FAX: [phone] Expected date of discharge: 12/27 or 12/28 SN/PT/OT/DITCH CLEANER [facility] from 12/21-12/23 for progressively worsening altered mental status, weakness,and falls APD for swing stay Referral routed to the Automobile Service Advisor for matching with agency/vendor and to provide any required information. Rebecca Conrad RN - 12/26/2020 11:12 AM EDT Pt woke up at 0930, very confused, not knowing where he was and paranoid; saying that 'you are keeping me here for no reason', not trusting the RN, and refusing morning meds from her. Charge Nurse notified, and called the to have a chat with the patient and to reassure him. After having had a chat with the , pt relaxed and calmed down. Pt took all his meds and had breakfast at 10:30. Lorrie Dockery RN - 12/26/2020 7:33 AM EDT Patient walked from his room to the hallway and back to his room Marcelle James RN - 12/25/2020 4:[address] Petit (hospitalist) if we can hold the meal associated insulin tonight since the patient's blood sugar was only 99mg/dl. Informed Dr. Petit what happened yesterday when the patient's blood sugar was only 95 mg/dl but received his meal associated insulin. According to the manufacturing supervisor 2nd shift, his blood sugar went down to 66mg/dl when they checked it last night as per report this morning. So Dr. Petit said that it's ok to hold the meal associated insulin and he will review the patient's insulin and will make some adjustments. Marcelle James RN - 12/25/2020 8:[address] Petit that the patient was not on any anticoagulant since he's bee here. Dr. Petit added lovenox. Lynn Levy RN - 12/25/2020 4:12 AM EDT Patient's blood sugar was 66 juice and crackers given recheck blood sugar 91. No Tele events overnight, denies chest pain. Voids with help in the urinal. Matt Petit MD - 12/24/2020 1:24 PM EDT Brief interval progress note. Met with patient today to introduce myself. We reviewed his course and medical management. Patient states that he is overall feeling better but is still a bit woozy and lightheaded with positional changes. I reviewed that I share Dr. Hernandez's opinion that this is likely due in part to hypovolemia/dehydration, especially given the patient's elevated specific gravity and presence of hyaline casts on his UA, as well as with his elevated creatinine which has since improved. I encouraged him to continue to push oral fluids. We will hold on additional IV fluids for now. It is likely that his metoprolol is contributing as well and blunting his autonomic response to positional changes. As such, we will begin to taper his metoprolol succinate and will reduce dose to 100 mg tomorrow (from 150 mg). Matt Petit MD Denisha Villarreal OT - 12/24/2020 11:58 AM EDT OT Initial Evaluation Denisha Villarreal OT Low - 89641 Moderate - 63148 High - 33708 History [] Brief history including review of medical record [x] Expanded review of medical records; additional review of physical, cognitive, or psychosocial skills [] Review of medical records; extensive additional review of physical, cognitive, or psychosocial skills Examination [] Identification of 1-3 performance deficits [x]Identification of 3-5 performance deficits [] Identification of 5 or more performance deficits Decision Making [] No comorbidities that affect occupational performance; modification of tasks or assistance is not needed to complete eval [x] May present with comorbidities; minimal to moderate modification of tasks or assistance is needed to complete eval [] Presents with comorbidities; significant modification of tasks or assistance is needed to complete eval Clinical Decision Making Complexity: [] Low 38791 [x] Moderate 41445 [] High 40333 Start Time: 900 Minutes: 35 Order Date: 12/30/2020 Frequency: QD 4-6x weekly Equipment Recommendations: Unclear what pt has at home, will continue to assess. Equipment Provided: [] Seo Strategist []Sock Aid []Shoe Horn []Dressing Stick []Long Handled Sponge []Elastic Shoe laces []Walker Basket []Other: Discharge Recommendations: Recommend increased caregiver support at home, potential LTC. Precautions/Restrictions: Full code, DM, HIGH fall risk Patient Assessment: Pt is a 65 yo male [place] [facility] [place] with a history of parkinson. Pts hx significant for Patient Active Problem List Diagnosis Code ??? [...] toxic G92 ??? Urinary tract infection N39.0 Chart reviewed, evaluation completed. Pt was sleeping when OT arrived, woke to name being called andwas agreeable to engage in session. Pt is a poor historian and required increased time for answeringquestion and would frequently state I don't remember as an answer. Pt requires verbal and visual cues for placement of body in preparation for sitting EOB and completing functional mobility tasks with FWW. He demonstrated decreased balance with difficulty sequencing tasks consistent with PD. Pt reports that recently simple daily tasks have been an increased challenge. Pt would continue to benefit from skilled OT services to address ADL's, IADL's, UE strengthening, Functional mobility, AE needs, D/C planning. Patient Living Environment: Pt lives with who works from home and is pts caregiver. There are 3-4 RENÉ into mobile home with one railing. Walk in shower with a built in bench and grab bars. Toilet is standard height. Pt reports having a BSC and FWW. Patient Prior Level of Functioning: Pt reports assistance with ADLS and IADLS including assistance with dressing and showering. Pt feeds self but reports increased difficulty with FM tasks. History of Falls: Significant HOF Vital Signs: Appeared to remain stable throughout Cognition: A & O x 2. Pt oriented to name and . Today's day reported at 2001 and unaware of location. Vision: Pt wears glasses for reading ROM/MMT: With increased time pt shows functional ROM ADL: Feeding - DEP for set up including opening containers with increased difficulty holding utensils. May benefit from adaptive tools to assist with independence during meal time. Mobility: Bed Mobility - MOD A with HOB elevated. Once siting EOB with feet on ground pt maintained seated balance without support Functional Mobility - CGA/ Min A with verbal cues for sequencing fxl mobility tasks as seen in pt pushing walker into bench and requiring cues for which direction to turn to sit on reclining chair. Pt has a shuffling gait and requires increased time for fxl mobility. Motor Skills: Sitting/standing balance/tolerance - Pt leans back when standing with use of FWW requiring Min A to maintain standing balance. Sitting EOB pt able to sit with both hands on bed. 1. LTG: Pt demonstrate improved independence to Min A with total body dressing tasks with AE/AD as needed. STG: Pt demonstrate improved independence to Mod A with total body dressing tasks with AE/AD as needed. Date Goal Established: 12/24/20 Estimated date to achieve goal by: 12/30/20 [x] New Goal [] Goal Partially Met [] Goal Ongoing [] Goal Met 2. LTG: Pt demonstrate improved independence to Min A with total body sink level/shower bathing with AE/AD as needed. STG: Pt demonstrate improved independence to Mod A with total body sink level/shower bathing with AE/AD as needed. Date Goal Established: 12/24/20 Estimated date to achieve goal by: 12/30/20 [x] New Goal [] Goal Partially Met [] Goal Ongoing [] Goal Met 3. LTG: Pt demonstrate improved independence to SUP A with total toileting tasks including toileting transfers with AE/AD as needed. STG: Pt demonstrate improved independence to Min A with total toileting tasks including toileting transfers with AE/AD as needed. Date Goal Established: 12/24/20 Estimated date to achieve goal by: 12/30/20 [x] New Goal [] Goal Partially Met [] Goal Ongoing [] Goal Met 4. LTG: Pt demonstrate improved independence to SUP A with FM tasks including feeding and opening containers with AE/AD as needed. STG: Pt demonstrate improved independence to SUP A with FM tasks including feeding and opening containers with AE/AD as needed. Date Goal Established: 12/24/20 Estimated date to achieve goal by: 12/30/20 [x] New Goal [] Goal Partially Met [] Goal Ongoing [] Goal Met Clinical Impression: Rehab Potential: Fair Therapy Frequency: QD Duration of Therapy Interventions: 4-6x weekly Planned Interventions: [x] ADL Training [x] IADL Training [x] Balance Training [x] Bed Mobility Training [x] Fine Motor Coordination Training [] Joint Mobilization [] Motor Control/Coordination Training [] Neuro Re-Education [] Orthotic Fitting/Training [] Prosthetic Fitting/Training [x] Range of Motion [x] Strengthening [x] Stretching [x] Transfer Training [x] Caregiver Training The patient did not demonstrate any signs of symptoms of pain throughout session Education Completed ?? Education Topics: Role of OT, Walker Safety with ADLs and functional transfers, Fall Prevention, Home Modifications, Adaptive Equipment training and recommendations, Functional transfer training, Discharge recommendations and Other ?? Completed with: [x] Patient [] Spouse [] Significant other [] Family [] Caregiver ?? [] Other ?? Completed by [x] Verbal education [x] Demonstration [] Handout [] Other: ?? Response to Education: [] Stated Understanding [x] Reinforcement necessary [] Returned demonstration [] Demonstrated understanding [] No evidence of learning [] Refused Focus for next session: BADLS, FM tasks Barriers to d/c at this time include: [] Home environment [] Family support [x] Equipment needs (TBD) [x] Cognitive deficits impacting functional independence [x] Physical deficits impacting functional independence [x] Self-care deficits impacting functional independence [] Other Vijaya Carbone - 12/24/2020 12:27 AM EDT Early in shift, patient became agitated and consistently tried to get out of bed. Patient stated he was being held here against his will and he is not here for rehab. Staff was unsuccessful at deescalating the situation. Patient's was at the hospital and allowed on unit to assist with patient. She was able to calm him down. pulled this business writer and the charge nurse aside to inform us that he has had 3 previous suicide attempts. mentioned that patient had stated I can't do this anymore. Bed alarm was set and he was closely monitored for safety purposes. Lorrie Dockery RN - 12/23/2020 7:26 PM EDT Fall Event Note Timbo Su 12/23/2020 Time of Fall: 1839 Was the fall witnessed? yes If yes, by whom? Lorrie Navarrete RN and Malou Hu [employer]RAYON SORTING MACHINE FEEDER Patient???s description of the fall: Unable to verbalize Witnesses??? description of the fall: Was called by Malou that patient is trying to get up. I quickly ran to the room and saw that patient is already up from the chair standing. As we try to talk to him to sit back down, patient starting going down slowly. I was able to guide the head and body from injury and I called for help Anatomical point(s) of impact: Body Vital sign observations: BP 132/79, T 98.2, HR 76, R 18 Neurological observations: same on admission Post fall physical assessment changes: No Provider notified (name): Memo New interventions/orders: Tele, Labs, EKG Patient support contact/guardian notified (name): Jean Terrazas RN - 12/23/2020 6:06 PM EDT Patient dosed with 2u insulin coverage for 185. Patient declined meal coverage, worried that it is too much. Jean Terrazas RN - 12/23/2020 5:20 PM EDT Patient requested enema. He uses this at home approx once a month and felt it appropriate after fiveminutes on commode. Enema conducted with good success. Patient stool large and dark brown, toleratedenema well. Now in chair and alarmed. Patient moved stiffly with pivot, mobility hampered not by strength but by kinetic considerations requiring significant prompts. Jan Aguayo MD - 12/23/2020 5:20 PM EDT [facility] Swing Bed Patient Physician Certification Patient Name: Timbo Su Admission Date: 12/23/2020 Certification: Inpatient shelter services or skilled rehabilitation services are required for a UTI and physical deconditioning on an inpatient basis. The estimated time of need for continued Swing care is 1-2 weeks. This is a condition for which this patient was treated or which arose in a hospital stay that ended on 12/23/20. This patient is expected to need homecare services after discharge. Details of the patient's condition, skilled services, need for continuing care, and the discharge plans can be found in the patient's medical record. I have reviewed that record and attest that the medical record supports the need for continuing care at [facility], in a Swing Bed, and contains plans for home care if appropriate. Dulce Maria Li RN 12/23/2020 Sil Walters OTA - 12/23/2020 4:22 PM EDT Occupational Therapy Treatment Note Treatment Number OT: 3 Patient Dx: Timbo Su??is a 65 y.o.??male??with a hx of parkinson's disease??with vagal nerve stimulator who presents to the Emergency Department??with concerns for increasing falls over the last 2 weeks as well as concerns for right-sided weakness.?Patient was recently diagnosed with herpes zoster infection treated with antivirals. ?? notes that he has had some visual hallucinations overthe last several days. ?? Social History: Patient lives??with his in a mobile home with 5 steps to enter.?? DME:??walker, cane Baseline ADL/Mobility:??independent with ADL, per chart he ambulates ~1.5 miles. ?? performs IADL Precautions/Special Considerations: fall risk, seizure precautions, DBS, cognitive impairment?? S: What do you want me to do? O: Patient seen for skilled OT treatment, and demonstrated the following: ?? Self-care & Functional Mobility: ?? Pt supine upon arrival,agreeable to therapy ?? Pt doned shoes supine HOB elevated Max A ?? Supine to sit eob Min A ?? Sit to stand x2 trials Mod A x2 FWW,vcs for hand placement ?? Completed oral hygiene seated in visitor chair with set up,required assistance to manipulate toothpaste top,apply toothpaste to toothbrush. Facial hygiene with set up,vcs to wash forehead and cheeks ?? Pt mobilized around the bed 6' x2 with Mod A x2 FWW,vcs to weight shift to L side,retropulsive attimes ?? Pt returned to bed with SBA,vcs to position LE's in bed. Max A x2 to scoot up in bed ?? Pt left in chair position,call white and essentials in reach,bed alarm activated ? Cognition: ?? Behavior / Mood: alert and cooperative ?? Alert and oriented to: person ?? Follows commands: 1 step, 100% of the time, requires increased time and requires repetition ?? Attention: requires cues to redirect,slow to process ?? Safety awareness: decreased insight into deficits ?? Vision: WFL ?? Endurance: Fatigued easily with activity ?? Vitals: Stable on RA ?? Strength/ROM: WFL Pain: L hip,did not quantify Education: Pt/family/caregiver education ongoing regarding: Role of occupational therapy/rehabilitation, Transfers, Assistive device/technique, ADL, Positioning, Safety, Precautions/Protocol, Functional Mobility, Activity pacing/Energy conservation and Balance. Staff Communication: Patient status, treatment, and mobility recommendations discussed with nursing/other staff. ASSESSMENT: Patient was motivated to participate in session. Pt required vcs to weight shift to L side during functional mobility,vcs to lean forward secondary retropulsion. Pt required 2A to mobilize around the bed. Pt will benefit from rehab placement when medically ready . Pt will benefit from ongoing therapeutic interventions to achieve pt's and therapy goals Anticipated Discharge Disposition (OT): inpatient rehabilitation facility Equipment Recommendations: TBD ?? Daily schedule / Staff Recommendations: Pt is dependent for transfers Please encourage up to chair for meal times as able Occupational Therapy Goals: To be achieved by??01/06/21 Pt will perform grooming routine??sitting unsupported with supervision. Pt will dress LB with min A using AE as needed. Pt will perform functional transfers with CGA. Pt will stand for 2 min with BUE support and CGA for hygiene/pants hike following toileting. Pt will ambulate to bathroom with CGA using least restrictive device Therapy Frequency (OT): 2-3 times/wk Total Minutes, Occupational Therapy: 37(Schmx2) Pager: [phone] CONNIE Burnette Occupational Therapy Rehabilitation Department Jean Terrazas RN - 12/23/2020 3:03 PM EDT Admission assessment. Patient is alert and responsive to name. Patient's answers require time and some translation as patient indirect in response. (Are you in pain? Constantly. Where is the pain? You know where.) Patient speaks of family as if they are in the room or are arriving for important dates. Presents with tremors and spasms down side that, per my report, have been [place] [facility] [place]. Patient with limited ability to input into his admission process. Lying in bed, with hob elevated. Drinking diet pepsi. Lungs clear. Patient able to take deep, comfortable breaths on command. No dyspnea noted. Heart sounds regular, no edema. No fever. Pulses equal and palpable in all extremities. Patient with good bowel sounds, no distension. Per [facility] [place] and notes, patient has not stooled since 12/20. Treated with softeners. Patient with multiple scabs, described in report as pursuant to fall. Patient has immediate history of shingles. Consulted with hospitalist who believes this to be non-active. Bruise on right hip in state of healing as evidenced by yellow on margins. Oriented to bed, white, bathroom, television. Reviewed chart, orders, labs, vitals, mar, etc. Will continue to reassess as needed. documented in this encounter H&P Notes Robinson Hernandez MD - 12/23/2020 9:21 PM EDT [facility] Medicine Attending Admission H&P Patient Name: TIMBO SU Date of : 1955 Age: 65 y.o. Hospital Admit Date: 12/23/2020 Inpatient Attending: Dr. Robinson Hernandez PCP: Griselda Stanley MD Presenting Diagnosis/Chief Complaint: Continued weakness History of Present Illness: Timbo Su is a 65 y.o. male with hx of advanced Parkinson's disease status post deep brain stimulator, atrial fibrillation, hypertension, diabetes, hyperlipidemia who was admitted at [facility] from 12/21-12/23 for progressively worsening altered mental status, weakness, and falls. notes that at baseline, patient ambulates around the house and is able to use a recumbent exercise bike, albeit he has progressively become weaker. has noted increased frequency of tonic-clonic jerking as well. Additionally, noted increased hallucinations. Initial labs were notable for a creatinine of 1.01 and a lactate of 3.7. He was ultimately found to have a UTI and is currently on cefpodoxime. However, of note, there was not significant pyuria in admission urine sample (3 WBC/hpf) and eventually, urine culture grew 10,000-49,000 CFU mixed mucosal matt. Neurology was consulted, but did not believe that there was suspicion for myelopathy or encephalitis. They had not recommended an LP at that time. Today, patient was transferred to [facility] for continued rehab. Shortly after transfer, patient was noted to have an episode of brief loss of consciousness with resultant collapse after standing up from a seated position. Patient was mildly confused thereafter, but quickly recovered. He reportedno pain and no headache. Patient did not have any other notable symptomatology. Discussed case with at bedside, Arlyn, and she had confirmed above history. Additionally, she notes that prior to admission, patient had been feeling more dizzy. Review of Systems: GENERAL HEENT CV PULM X All negative X All negative X All negative X All negative Weight loss Headache Chest Pain Non-productive cough Weight gain Vision change Palpitations Productive cough Fevers Sinus congestion Orthopnea Wheezing Chills Hoarseness LE edema Hemoptysis Night sweats Epistaxis PND Pleuritic pain Fatigue Syncope SOB Claudication GROSS MSK RENAL ENDO GI All negative X All negative X All negative X All negative Arthralgias Frequency Heat intolerance Blood in stool Myalgias Urgency Cold intolerance Dysphagia X Weakness Hematuria Polydipsia Odynophagia Stiffness Flank pain Polyphagia Abdominal discomfort Dysuria Cushingoid Constipation Foamy urine Diarrhea Discharge Nausea/Vomiting LYMPH SKIN NEURO PSYCH X All negative X All negative All negative X All negative Swollen nodes Rash Seizures Depressed affect Tender nodes Ulcers Tremors Occupational stress Diffuse nodes Bruising X Spasticity Anxiety Local nodes Tanned skin Focal weakness Insomnia Night sweats Telangiectasias Diplopia Paresthesias X Dizziness Past Medical History: No past medical history on file. Patient Active Problem List Diagnosis Code ??? [...] toxic G92 ??? Urinary tract infection N39.0 Past Surgical History: Past Surgical History: Procedure Laterality Date ??? CHOLECYSTECTOMY ??? HIP SURGERY as a child ??? PRO APPLY/REMOVE CRANIAL FIX DEV Bilateral 06/10/2017 PLACEMENT-STARFIX FIDUCIALS (WRVU 4) performed by Randall Sapp MD at [facility] ? ? PRO IMP STIM, CRANIAL, SUBQ, >1 ARRAY Bilateral 06/24/2017 PLACEMENT ADD'L CRANIAL NEUROSTIMULATOR (WRVU 9.93) performed by Randall Sapp MD at [facility] ? ? PRO IMP STIM, CRANIAL, SUBQ, >1 ARRAY Left 09/21/2020 PLACEMENT ADD'L CRANIAL NEUROSTIMULATOR (WRVU 9.93) performed by Randall Sapp MD at [facility] ??? PRO IMPLANT NEUROELECTRDE, ADDL N/A 06/17/2017 @IMPLANTATION OF ADD'L NEUROSTIMULATOR ELECTRODE (WRVU 7.91) performed by Randall Sapp MD at [facility] ??? PRO IMPLANT NEUROELECTRODE Bilateral 06/17/2017 @IMPLANTATION OF NEUROSTIMULATOR ELECTRODE-LISBETH (WRVU 33.03) performed by Randall Sapp MD at [facility] Social History: Social History Socioeconomic History ??? Marital status: [...] on file Social History Narrative Lived in [place], moved to [place] 1981. Social Determinants of Health Financial Resource Strain: [...] Gatherings with Friends and Family: ??? Attends Synagogue Services: ??? Active Member of Clubs or Organizations: ??? Attends Club or Organization Meetings: ??? Marital Status: Intimate Partner Violence: ??? Fear of Current or Ex-Partner: ??? Emotionally Abused: ??? Physically Abused: ??? Sexually Abused: Family History: No family history on file. Allergies: No Known Allergies Medications: Medications Prior to Admission Medication Sig Dispense Refill Last Dose ??? cefpodoxime (Vantin) 200 mg Tablet Take 1 tablet by mouth 2 times daily for 4 days. 8 tablet 0 12/23/2020 at 0924 ??? blood sugar diagnostic strips Strip by Other route. Use as instructed 12/23/2020 at 1145 ??? carbidopa-levodopa (Sinemet) 25-250 mg Tablet Take 1 tablet by mouth 5 times daily. Take at 9am,12noon, 3pm, 6pm and 9 pm 150 tablet 3 12/23/2020 at 1219 ??? metoprolol succinate XL (Toprol-XL) 50 mg Tablet Sustained Release 24 hr Take 3 tablets by mouthdaily. 30 tablet 12 12/23/2020 at 0922 ??? atorvastatin (Lipitor) 10 mg Tablet Take 1 tablet by mouth every evening. 90 tablet 3 12/22/2020 at 1709 ??? entacapone (Comtan) 200 mg Tablet Take 1 tablet by mouth 3 times daily. Take with each dose of carbidopa-levodopa. Aware of previous intolerance because nausea 90 tablet 5 12/23/2020 at 923 ??? DULoxetine (CYMBALTA) 30 mg Capsule, Delayed Release(E.C.) Take 30 mg by mouth 3 times daily. 12/23/2020 at 0923 ??? acetaminophen (TYLENOL) 500 mg Tablet Take 1,000 mg by mouth every 6 hours as needed for Pain. 12/23/2020 at 1052 ??? melatonin 3 mg Tablet Take 6 mg by mouth nightly as needed. 12/22/2020 at 2333 ??? Miconazole Nitrate (Fungoid Tincture) 2 % Tincture Apply topically 2 times daily. Unknown at Unknown time ??? dilTIAZem XR (Dilacor XR) 240 mg Capsule,Degradable Cnt Release Take 1 capsule by mouth daily. Unknown at Unknown time ??? polyethylene glycol (Miralax) 17 gram Powder in Packet Take 17 g by mouth daily as needed. 14 each 0 Unknown at Unknown time ??? glipiZIDE (Glucotrol) 5 mg Tablet Take 5 mg by mouth 2 times daily (before meals). Unknown at Unknown time ??? mirabegron 25 mg Tablet Sustained Release 24 hr Take 25 mg by mouth daily. Unknown at Unknown time ??? cholecalciferol, Vitamin D3, 1,000 unit Tablet Take 1,000 Units by mouth daily. Unknown at Unknown time ??? omeprazole (PRILOSEC) 40 mg Capsule, Delayed Release(E.C.) Take 40 mg by mouth daily as needed. Unknown at Unknown time ??? metFORMIN (GLUCOPHAGE) 500 mg tablet Take 1,000 mg by mouth 2 times daily (with meals). Unknown at Unknown time PHYSICAL EXAM: Last value Range last 24 hrs Temperature Temp: 36.8 ??C (98.2 ??F) Temp: [36.7 ??C (98.1 ??F)-37.4 ??C (99.3 ??F)] Heart Rate Heart Rate: -- Blood Pressure BP: 102/64 BP: (102-145)/(61-82) Respiratory Rate Resp: 18 Resp: [17-20] SpO2 SpO2: 95 % SpO2: [94 %-97 %] Gen: NAD, lying in bed HEENT: Oropharynx clear, dry mucus membranes, CVP within normal limits CV: Normal rate, regular rhythm, No murmurs/rubs/gallops Pulm: Normal respiratory effort, speaking normally, clear to auscultation bilaterally, normal expiratory phase, no rales/rhonchi/wheezes Abd: Non-distended, normal bowel sounds in all 4 quadrants, soft, non-tender Ext: No pedal edema, 2+ radial/DP pulses Skin: Warm, dry, no rashes. Bruising appreciated on R hip. Neuro: CN 2-12 intact, strength 5/5 in UE and LE b/l, cogwheel rigidity LABS: Recent Labs 12/23/20191412/23/20 0810 12/22/20 0951 WBC 7.7 7.4 6.0 HGB 12.6* 12.3* 11.5* HCT 36.2* 36.1* 33.4* PLATELET 200 186 161 Recent Labs 12/23/20191412/22/20 0506 12/20/20 2224 INR 1.2 1.2 1.1 Recent Labs 12/23/20191412/23/20 0810 12/22/20 0951 NA 142 144 142 K 3.3* 3.8 3.6 CL 103 106 106 CO2 24 28 25 BUN 17 11 7* CREATININE 1.02 0.85 0.83 Recent Labs 12/20/20 1535 AST 35 ALT 18 ALKPHOS 113 BILITOT 0.7 BILIDIR 0.2 Recent Labs 12/23/20 1915 12/23/20 0810 12/22/20 0951 CALCIUM 9.5 9.2 8.9 MAGNESIUM 0.80 0.76 -- PHOS 3.7 3.9 -- Recent Labs 12/23/201914 CK 637* TROPONINT <0.01 Recent Labs 12/23/20 0810 TSH 3.25 No results for input(s): HA1C in the last 7068 hours. Lab Results Component Value Date TRIG 369 12/22/2019 Imaging/Diagnostics: CT Head and Neck, 12/20 IMPRESSION 1. No intracranial hemorrhage or calvarial fracture. 2. No acute cervical spine fracture. ASSESSMENT and PLAN: Timbo Su is a 65 y.o. male with hx of advanced Parkinson's disease status post deep brain stimulator, atrial fibrillation, hypertension, diabetes, hyperlipidemia who was admitted at [facility] from 12/21-12/23 for progressively worsening altered mental status, weakness, and falls. He was ultimately found to have a UTI and is currently on cefpodoxime. However, of note, there was not significant pyuria in admission urine sample (3 WBC/hpf) and eventually, urine culture grew 10,000-49,000 CFU mixed mucosal matt. In reviewing [facility]'s hospital course, it could be that patient's presentation wasdriven by occult infection and also dehydration. It is unclear to me if UTI is the culprit given lack of pyuria and growth with urine cultures. However, reasonable to continue treatment with Cefpodoxime. Today, I believe that patient syncopized and is most consistent with orthostatic hypotension. Unfortunately, orthostatic vital signs were unreliable. However, given rising creatinine from baseline of0.6-0.7 to 1.02 this afternoon, reasonable to start bolus and maintenance fluids and then reassess tomorrow. #Orthostatic hypotension -Start 1 L LR bolus -Start LR at 100 cc an hour thereafter -Unable to do orthostatic vital signs -Start telemetry tonight, please note that twelve-lead EKG is unreliable due to artifact from deep brain stimulator -Troponin unremarkable #UTI -Status post ceftriaxone -Continue Cefpodoxime 200 mg twice daily until 12/26 #Parkinson's disease, advanced -Continue Sinemet 25-250mg 5 times daily -Continue entacapone 200 mg 3 times daily -Continue Cymbalta 30 mg 3 times daily -TSH, B12, folate within normal limits #Atrial fibrillation -Continue home metoprolol 1 and 50 mg daily #Diabetes -Continue meal associated insulin -Continue insulin sliding scale -Continue Metformin 1000 mg twice daily -Continue glipizide 5 mg twice daily #Hyperlipidemia -Continue atorvastatin ?? Admit to Hospital Medicine ?? If currently a smoker - advised about smoking cessation and will provide smoking cessation material and support. ?? Pneumovax and Influenza Immunizations given as needed. ?? IV access: pIV ?? DVT PPX: None ordered, ambulatory ?? PT/OT required: Ordered ?? Diet: Carb controlled diet Attempt Cardiopulmonary Resuscitation - Inpatient A copy of this document will be sent to the patient's Primary Care Physician and/or Referring Physician. Robinson Hernandez MD Pager [phone] documented in this encounter Miscellaneous Notes Plan of Care - Clarissa Pereira, PT - 12/27/2020 6:36 PM EDT Patient discharged prior to last session with evaluating physical therapist. Patient discharge recommendations and goal progress are as follows: Discharge home with home health PT services Goals: STGs: 1.??Bed mobility with min assist.MET 2. Stand pivot transfer with front wheeled walker and contact guard assist. MET 3. Standing tolerance increased to 10 minutes in order to safely complete ADL's. NOT MET 4. Ambulates 150' with a front wheeled walker and contact guard assist on level indoor surfaces. MET 5. Ascended / descended 4 steps with bilateral railings and min assist. MET LTGs: 1.??Bed mobility with modified independence and use of bed rails. MET 2. Stand pivot transfer with front wheeled walker and supervision. MET 3. Standing tolerance increased to 15 minutes in order to safely complete ADL's. NOT MET 4. Ambulates 250' with a front wheeled walker contact guard assist on level outdoor surfaces. MET 5. Ascended / descended??5??steps with bilateral railings and contact guard assist. MET Consult Note - Tamara Garcia OT - 12/27/2020 8:58 AM EDT Conversation with Arlyn (spouse) regarding pts status and current level of needs. Arlyn reported pt has a lift chair at home with a tray swivel feature, he was able to walk the entire length of the home. He was using a cane out in the community but a FWW that Arlyn was concerned about his ability to use it. Her son has installed a ramp so pt no longer has to manage the stairs. The shower has a 3 inchstep to enter, with a built in seat. Bed is adjustable with bedrail and a trapeze. Son has also installed a long horizontal grab bar that pt can use when he first gets out of bed. Arlyn noted pt was experiencing some numbness in his fingers possibly from carpal tunnel. Discussed using built up utensils. Discussed discharge with spouse, who is comfortable with picking the patient up this evening. Confirmed recommendation for VNA services this week. NCOT Time spent 10 min Plan of Care - Rebecca Conrad RN - 12/26/2020 12:17 PM EDT Pt is slowly getting re oriented to the surroundings, eating and drinking, incontinent of urine, last BM was 12/23/20; Miralax given. Denied any pain, working with the PT/OT. Initial Assessments - Red Solorio, PT - 12/24/2020 1:10 PM EDT PT Initial Evaluation Diagnosis: Continued weakness, Parkinson's disease. Rehab Potential: Good Evaluation Date: 12/24/2020 Orders through: 01/07/2021 Referring Physician: Jan Aguayo MD Anticipated DME and discharge needs: TBD, has front wheeled walker and hospital bed. Precautions: Full code, fall risk Weight Bearing status: refueler In/Out: not documented. Total time: Approximately 50 minutes Cognitive Status: Alert and oriented x 2. Patient Active Problem List Diagnosis ??? Encephalopathy, toxic ??? Urinary tract infection ??? UTI (urinary tract infection) ??? Frailty ??? Parkinson's disease Overview Note: Added automatically from request for surgery [id number] ??? Dysphagia ??? Atrial fibrillation ??? Viral meningitis ??? S/P deep brain stimulator placement ??? Mixed anxiety and depressive disorder ??? Sensory ataxia ??? Diabetic polyneuropathy ??? Orthostatic hypotension ??? Hypertension ??? Hyperlipidemia ??? Diabetes mellitus Overview Note: With mild sensory polyneuropathy ??? Carpal tunnel syndrome, bilateral ??? Sciatica of left side ??? Abnormal LFTs (liver function tests) ??? Cholelithiasis ??? REM behavioral disorder ??? Ankle fracture, left ??? Fatigue Past Surgical History: Procedure Laterality Date ??? CHOLECYSTECTOMY ??? HIP SURGERY as a child ??? PRO APPLY/REMOVE CRANIAL FIX DEV Bilateral 06/10/2017 PLACEMENT-STARFIX FIDUCIALS (WRVU 4) performed by Randall Sapp MD at [facility] ? ? PRO IMP STIM, CRANIAL, SUBQ, >1 ARRAY Bilateral 06/24/2017 PLACEMENT ADD'L CRANIAL NEUROSTIMULATOR (WRVU 9.93) performed by Randlal Sapp MD at [facility] ? ? PRO IMP STIM, CRANIAL, SUBQ, >1 ARRAY Left 09/21/2020 PLACEMENT ADD'L CRANIAL NEUROSTIMULATOR (WRVU 9.93) performed by Randall Sapp MD at [facility] ??? PRO IMPLANT NEUROELECTRDE, ADDL N/A 06/17/2017 @IMPLANTATION OF ADD'L NEUROSTIMULATOR ELECTRODE (WRVU 7.91) performed by Randall Sapp MD at [facility] ??? PRO IMPLANT NEUROELECTRODE Bilateral 06/17/2017 @IMPLANTATION OF NEUROSTIMULATOR ELECTRODE-LISBETH (WRVU 33.03) performed by Randall Sapp MD at [facility] Prior Hospital Care related to current admission: ######################## From H&P note: Timbo Su is a 65 y.o. male with hx of advanced Parkinson's disease status post deep brain stimulator, atrial fibrillation, hypertension, diabetes, hyperlipidemia who was admitted at [facility] from 12/21-12/23 for progressively worsening altered mental status, weakness, and falls. ?? notes that at baseline, patient ambulates around the house and is able to use a recumbent exercise bike, albeit he has progressively become weaker. has noted increased frequency of tonic-clonic jerking as well. Additionally, noted increased hallucinations. Initial labs were notable for a creatinine of 1.01 and a lactate of 3.7. ?? He was ultimately found to have a UTI and is currently on cefpodoxime. However, of note, there was not significant pyuria in admission urine sample (3 WBC/hpf) and eventually, urine culture grew 10,000-49,000 CFU mixed mucosal matt. ?? Neurology was consulted, but did not believe that there was suspicion for myelopathy or encephalitis. They had not recommended an LP at that time. ?? Today, patient was transferred to [facility] for continued rehab. Shortly after transfer, patient was noted to have an episode of brief loss of consciousness with resultant collapse after standing up from a seated position. Patient was mildly confused thereafter, but quickly recovered. He reportedno pain and no headache. Patient did not have any other notable symptomatology. Discussed case with at bedside, Arlyn, and she had confirmed above history. Additionally, she notes that prior to admission, patient had been feeling more dizzy. ######################## Subjective Patient reported history: As able he confirms above history. Prior Level of Function: At his baseline, he is an independent ambulator and appears to use a cane at times. Per chart note, he is able to ambulate a distance of 1.5 miles as well as use an exercise bike. Patient has suffered frequent recent falls. Home Set Up: Resides with his in a mobile home with 5 RENÉ (per chart, son is supposed to build a ramp). Pain: No mention of pain during evaluation. Objective Pt position at start of session: sitting Pt position and personal items at end of session: sitting call white in place Range of Motion Upper Extremity: Mild limitations bilaterally. Lower Extremity: Mild limitations bilaterally. Strength (quick screen in short sitting unless otherwise noted): Upper Extremities: WFL Lower Extremities: WFL Transfers: ??? Bed Mobility: Mod assist of one o Comments: Difficulty with coordinating / sequencing movements. ??? Sit/stand: Mod assist with front wheeled walker initially, later min assist o Comments: improved with repetition ??? Ambulation: 70' with front wheeled walker and min assist. o Comments: Narrow base of support with difficulty correcting, assist with walker management / control. ??? Stairs: not assessed. o Comments: - Balance ??? Static Balance Assessment: o Seated: Fair o Standing normal CAROLINE: Dependent on walker ??? Dynamic Balance Assessment o Seated: Fair o Standing: Unable Sensation: not assessed Coordination: Severe deficits globally consistent with Parkinson's disease. Today's Treatment: ?? PT Evaluation ?? [id number] x 2 Assessment Assessment:Pt is a pleasant 65 y.o. male who presents with the above mobility deficits related to his Parkinson's disease, co-morbidities and physical deconditioning. He requires skill physical therapyto address these deficits and facilitate a safe discharge home with follow up care being provide by a home health service. Additionally he needs training on mobility strategies and a home exercise program to prevent a decline, maintain independence and reduce risk of fall or other injury. Patient participated in establishing the following goals. Goals: STGs: 1. Bed mobility with min assist. 2. Stand pivot transfer with front wheeled walker and contact guard assist. 3. Standing tolerance increased to 10 minutes in order to safely complete ADL's. 4. Ambulates 150' with a front wheeled walker and contact guard assist on level indoor surfaces. 5. Ascended / descended 4 steps with bilateral railings and min assist. LTGs: 1. Bed mobility with modified independence and use of bed rails. 2. Stand pivot transfer with front wheeled walker and supervision. 3. Standing tolerance increased to 15 minutes in order to safely complete ADL's. 4. Ambulates 250' with a front wheeled walker contact guard assist on level outdoor surfaces. 5. Ascended / descended 5 steps with bilateral railings and contact guard assist. Plan Frequency: Q/BID; 4-6 times per week Planned Interventions: Therapeutic exercise, Therapeutic activities, Neuromuscular re-education, Gait training, , Patient / family education, and d/c planning Charges: 76352, 05751 x 2 2017 PT Evaluation Code Rationale: ?? Diagnosis [...] functional performance as outlined in this evaluation. Plan of Care - Vijaya Carbone - 12/24/2020 2:59 AM EDT OUTCOME EVALUATION NOTE: OUTCOME SUMMARY: Patient had a difficult night. He experienced an episode of syncope at start of shift. Agitation followed. Alert and oriented x1 (to self). No difficulties voiding in urinal. Unable to ambulate due to unsteady gait and weakness. No reports of pain. VSS. Will continue to monitor. PLAN MOVING FORWARD: PT/OT INDIVIDUALIZED FALL PREVENTION INTERVENTIONS: Patient-specific fall risk factors per assessment: [current deficits]: mobility aid at home, historyof falls, confused, needs assistance getting out of bed or chair, unsteady gait r/t Parkinsons Assistance [level of assistance required for transfers and ambulation]: 2 person assist, walker, non-skid shoes/slippers Supervision [direct monitoring required during toileting and ADLs]: Eyes on, hands on Surveillance [continuous indirect monitoring]: Purposeful rounding, call white in reach, bed alarm, masimo, telemetry Patient-specific fall prevention interventions for sensory deficits provided, if applicable: Lighting adjusted for task/safety, glasses Ancillary Services Notes - José Reich, RT - 12/23/2020 7:34 PM EDTSummary: EKG CONTROL MANAGER paged for EKG at 1915 EKG non diagnostic due to implant and or muscle tremors CONTROL MANAGER asked not to transmit EKG at this time by Dr. Aguayo EKG order pending in chart Initial Assessments - Dulce Maria Li RN - 12/23/2020 4:51 PM EDT Case Management Initial Assessment Dulce Maria Li, RN reviewed record and discussed patient with Interdisciplinary Team. CM introduced self and role of Case Management to patient and services accepted. Contact card left for patient and family???s reference. Source of Information: Patient Reason for Hospitalization: Urinary tract infection Expected length of stay expressed by patient: Unclear at this time. Hospitalized in the last 30 days: Yes Current decision making capacity: Patient is alert and oriented and able to make decisions. Advance Care Planning: Yes on file in eDH Functional status prior to admission: Ambulatory with a cane. Home environment: Lives with his who is his primary nanny caregiver. Has 5 steps to enter their mobile home. Social & Family Supports/Community Resources: Spouse is supportive. Behavioral Health History: Mixed anxiety and depressive disorder per medical record. Substance Use/Abuse: Denies Primary Care Provider: Griselda Stanley MD [phone] Pharmacy: [facility] - [address] [address] [id number] [address] Health /Prescription Coverage: Primary Insurance: MEDICARE Secondary Insurance: [employer] MEDICARE SUPPLEMENT DME: Owns a cane and a walker Community Resources: none VNA: Is open to utilizing VNA services at discharge. Transportation: Spouse will provide Anticipated Barriers to discharge: unsteady gait and high risk for falling due to Parkinson's disease. Plan: Home with home health services when medically ready for discharge. The best phone number to reach you post discharge is [phone]. A member of the Case Management team will continue to monitor progress and collaborate with the interdisciplinary team to create a safe discharge plan. See MCG guidelines for further clinical documentation during patient???s hospital stay. Dulce Maria Li, RN documented in this encounter Plan of Treatment Upcoming Encounters Date Type Specialty Care Team Description 03/20/2022 Office Visit Neurology Vishnu Hooper MD [facility] [place], [place] [address] (Wo rk) Scheduled Orders Name Type Priority Associated Diagnoses Order S chedule EKG 12 Lead ECG STAT Syncope, unspecified syncope One Time for 1 Occurrences type starting 2020 until 12/23/2020 documented as of this encounter Procedures Procedure Name Priority Date/Time Associated Comments Diagnosis POCT GLUCOSE Routine 12/27/2020 6:01 Results for this PM EDT procedure are i n the results section. POCT GLUCOSE Routine 12/27/2020 11:53 Results for this AM EDT procedure are i n the results section. HEMOGRAM Routine 12/27/2020 6:23 Results for this AM EDT procedure are i n the results section. DIFFERENTIAL, AUTOMATED Routine 12/27/2020 6:23 R esults for this AM EDT procedure are i n the results section. GOLD TUBE HOLD Routine 12/27/2020 6:23 Results fo r this AM EDT procedure are i n the results section. HC VENIPUNCTURE Routine 12/27/2020 6:23 AM EDT HC PHOSPHORUS, SERUM Routine 12/27/2020 6:23 Resu lts for this AM EDT procedure are i n the results section. HC MAGNESIUM, SERUM Routine 12/27/2020 6:23 Resul ts for this AM EDT procedure are i n the results section. BASIC METABOLIC PANEL Routine 12/27/2020 6:23 Res ults for this (NON-FASTING) AM EDT procedure are in the results section. POCT GLUCOSE Routine 12/27/2020 5:54 Results for this AM EDT procedure are i n the results section. POCT GLUCOSE Routine 12/26/2020 8:46 Results for this PM EDT procedure are i n the results section. POCT GLUCOSE Routine 12/26/2020 6:23 Results for this PM EDT procedure are i n the results section. POCT GLUCOSE Routine 12/26/2020 4:22 Results for this PM EDT procedure are i n the results section. POCT GLUCOSE Routine 12/26/2020 12:42 Results for this PM EDT procedure are i n the results section. POCT GLUCOSE Routine 12/26/2020 8:15 Results for this AM EDT procedure are i n the results section. HEMOGRAM Routine 12/26/2020 5:55 Results for this AM EDT procedure are i n the results section. DIFFERENTIAL, AUTOMATED Routine 12/26/2020 5:55 R esults for this AM EDT procedure are i n the results section. HC VENIPUNCTURE Routine 12/26/2020 5:55 AM EDT HC PHOSPHORUS, SERUM Routine 12/26/2020 5:55 Resu lts for this AM EDT procedure are i n the results section. HC MAGNESIUM, SERUM Routine 12/26/2020 5:55 Resul ts for this AM EDT procedure are i n the results section. BASIC METABOLIC PANEL Routine 12/26/2020 5:55 Res ults for this (NON-FASTING) AM EDT procedure are in the results section. POCT GLUCOSE Routine 12/25/2020 8:24 Results for this PM EDT procedure are i n the results section. POCT GLUCOSE Routine 12/25/2020 3:51 Results for this PM EDT procedure are i n the results section. POCT GLUCOSE Routine 12/25/2020 11:48 Results for this AM EDT procedure are i n the results section. POCT GLUCOSE Routine 12/25/2020 7:04 Results for this AM EDT procedure are i n the results section. HEMOGRAM Routine 12/25/2020 6:25 Results for this AM EDT procedure are i n the results section. DIFFERENTIAL, AUTOMATED Routine 12/25/2020 6:25 R esults for this AM EDT procedure are i n the results section. HC VENIPUNCTURE Routine 12/25/2020 6:25 AM EDT HC PHOSPHORUS, SERUM Routine 12/25/2020 6:25 Resu lts for this AM EDT procedure are i n the results section. HC MAGNESIUM, SERUM Routine 12/25/2020 6:25 Resul ts for this AM EDT procedure are i n the results section. BASIC METABOLIC PANEL Routine 12/25/2020 6:25 Res ults for this (NON-FASTING) AM EDT procedure are in the results section. POCT GLUCOSE Routine 12/24/2020 11:39 Results for this PM EDT procedure are i n the results section. POCT GLUCOSE Routine 12/24/2020 9:43 Results for this PM EDT procedure are i n the results section. POCT GLUCOSE Routine 12/24/2020 8:58 Results for this PM EDT procedure are i n the results section. POCT GLUCOSE Routine 12/24/2020 4:49 Results for this PM EDT procedure are i n the results section. POCT GLUCOSE Routine 12/24/2020 11:52 Results for this AM EDT procedure are i n the results section. POCT GLUCOSE Routine 12/24/2020 8:43 Results for this AM EDT procedure are i n the results section. EKG 12-LEAD Routine 12/24/2020 8:18 Syncope, Results for this AM EDT unspecified syncope procedur e are in type the results section. HEMOGRAM Routine 12/24/2020 6:30 Results for this AM EDT procedure are i n the results section. DIFFERENTIAL, AUTOMATED Routine 12/24/2020 6:30 R esults for this AM EDT procedure are i n the results section. HC CBC,PLT & AUTO DIFF Routine 12/24/2020 6:30 AM EDT HC TROPONIN T STAT 12/24/2020 6:30 Results for this AM EDT procedure are i n the results section. HC PHOSPHORUS, SERUM Routine 12/24/2020 6:30 Resu lts for this AM EDT procedure are i n the results section. HC MAGNESIUM, SERUM Routine 12/24/2020 6:30 Resul ts for this AM EDT procedure are i n the results section. HC CREATINE Routine 12/24/2020 6:30 Results for this PHOSPHOKINASE, SERUM AM EDT procedu re are in the results section. BASIC METABOLIC PANEL Routine 12/24/2020 6:30 Res ults for this (NON-FASTING) AM EDT procedure are in the results section. HEMOGRAM STAT 12/23/2020 7:15 Results for this PM EDT procedure are i n the results section. DIFFERENTIAL, AUTOMATED STAT 12/23/2020 7:15 R esults for this PM EDT procedure are i n the results section. HC PARTIAL STAT 12/23/2020 7:15 Results for this THROMBOPLASTIN TIME PM EDT procedur e are in the results section. HC PROTHROMBIN TIME STAT 12/23/2020 7:15 Resul ts for this PM EDT procedure are i n the results section. HC CBC,PLT & AUTO DIFF STAT 12/23/2020 7:15 PM EDT HC TROPONIN T STAT 12/23/2020 7:15 Results for this PM EDT procedure are i n the results section. HC PHOSPHORUS, SERUM STAT 12/23/2020 7:15 Resu lts for this PM EDT procedure are i n the results section. HC MAGNESIUM, SERUM STAT 12/23/2020 7:15 Resul ts for this PM EDT procedure are i n the results section. HC CREATINE STAT 12/23/2020 7:15 Results for this PHOSPHOKINASE, SERUM PM EDT procedu re are in the results section. BASIC METABOLIC PANEL STAT 12/23/2020 7:15 Res ults for this (NON-FASTING) PM EDT procedure are in the results section. POCT GLUCOSE Routine 12/23/2020 6:50 Results for this PM EDT procedure are i n the results section. POCT GLUCOSE Routine 12/23/2020 5:17 Results for this PM EDT procedure are i n the results section. documented in this encounter Results POCT Glucose (12/27/2020 6:01 PM EDT) athologist Signature POC Glucose 161 65 - 199 [facility] mg/dL LABORATORY Comment: Supplemental ranges: <140 mg/dL before meals <180 mg/dL all other times of the day Specimen Anatomical Collection Method Collection Time Receive d Time (Source) Location / / Volume Laterality Blood 12/27/2020 6:01 PM 6:01 EDT PM EDT Matt Petit MD POINT OF CARE TEST ORDERABLE S Performing Organization Address City/State/ZIP Code Phon e Number [facility] [address] [place], [place] [address] POCT Glucose (12/27/2020 11:53 AM EDT) P athologist Signature POC Glucose 112 65 - 199 mg/dL LABORATORY Comment: Supplemental ranges: <140 mg/dL before meals <180 mg/dL all other times of the day Specimen Anatomical Collection Method Collection Time Receive d Time (Source) Location / / Volume Laterality Blood 12/27/2020 11:53 12/27/2020 AM EDT 11:53 AM EDT Matt Petit MD POINT OF CARE TEST ORDERABLE S Performing Organization Address [facility]/ZIP [facility] [place] Phon e Number [facility] [address] [place], [place] [address] Gold Tube HOLD (12/27/2020 6:23 AM EDT) [facility] Gold Hold Sample in [facility]. LABORATORY Specimen Anatomical Collection Method Collection Time Receive d Time (Source) Location / / Volume Laterality Blood Venous Draw / 12/27/2020 6:23 AM 12/28/19 21 Unknown EDT 10:51 AM EDT Jan Aguayo MD CHEMISTRY ORDERABLES Performing Organization Address City/[facility] Phon e Number [facility] [address] [place], [place] [address] Differential, Automated (12/27/2020 6:23 AM EDT) [facility] Neutrophils % 52.4 % LABORATORY Neutr Abs (ANC) 3.04 1.70 - 6.10 LABORATORY x10(3)/mcL Lymphocytes % 35.5 % LABORATORY Lymphocytes Abs 2.1 0.9 - 3.2 x10(3)/mcL LABORATORY Monocytes % 8.4 % LABORATORY Monocyte Abs 0.5 0.3 - 0.9 x10(3)/mcL LABORATORY Eosinophils % 2.6 % LABORATORY Eosinophils Abs 0.2 0.0 - 0.4 x10(3)/mcL LABORATORY Basophils % 0.9 % LABORATORY Basophils Abs 0.0 0.0 - 0.1 x10(3)/mcL LABORATORY Immature Gran % 0.20 % LABORATORY Comment: Immature granulocytes(IG's)percentage an d absolute count will include metamyelocytes, myelocytes, and promyelo cytes. Blood smears from CBCs yielding IG's will be scanned manually for parris jimenez. If this scan disagrees with the automated IG or if promyelocytes are not ed, a manual differential will be performed. Anneliese Gran Abs 0.01 0.00 - 0.04 x10(3)/mcL LABORATORY Specimen Anatomical Collection Method Collection Time Receive d Time (Source) Location / / Volume Laterality Blood 12/27/2020 6:23 AM 7:22 EDT AM EDT Resulting Agency Comment Spec In Lab Jan Aguayo MD HEMATOLOGY ORDERABLES Performing Organization Address City/State/ZIP Code Phon e Number LABORATORY [address] [place], [place] [address] (ABNORMAL) Hemogram (12/27/2020 6:23 AM EDT) P athologist Signature WBC 5.8 4.0 - 9.5 x10(3)/mcL LABORATORY RBC 3.85 (L) 4.58 - 5.54 LABORATORY x10(6)/mcL Hemoglobin 11.6 (L) 13.7 - 16.5 gm/dL LABORATORY Hematocrit 34.3 (L) 40.5 - 48.5 % LABORATORY MCV 89.1 82.9 - 93.1 fL LABORATORY MCH 30.1 27.5 - 32.1 pg LABORATORY MCHC 33.8 32.0 - 35.7 gm/dL LABORATORY Platelets 175 145 - 357 x10(3)/mcL LABORATORY RDWSD 46.6 (H) 36.0 - 45.0 fL LABORATORY RDWCV 14.3 (H) 11.4 - 13.8 % LABORATORY MPV 10.4 7.6 - 12.9 fL LABORATORY Specimen Anatomical Collection Method Collection Time Receive d Time (Source) Location / / Volume Laterality Blood 12/27/2020 6:23 AM 1 7:22 EDT AM EDT Resulting Agency Comment Spec In Lab Jan Aguayo MD HEMATOLOGY ORDERABLES Performing Organization Address City/[facility]/ZIP [facility] [place] Phon e Number [facility] [address] [place], [place] [address] Phosphorus (12/27/2020 6:23 AM EDT) P athologist Signature Phosphorus 3.5 2.5 - 4.5 mg/dL LABORATORY Specimen Anatomical Collection Method Collection Time Receive d Time (Source) Location / / Volume Laterality Blood 12/27/2020 6:23 AM 7:22 EDT AM EDT Resulting Agency Comment Spec In Lab Jan Aguayo MD CHEMISTRY ORDERABLES Performing Organization Address [facility] Phon e Number [facility] [address] [place], [place] [address] Magnesium (12/27/2020 6:23 AM EDT) athologist Signature Magnesium 0.80 0.69 - 1.07 mmol/L LABORATORY Specimen Anatomical Collection Method Collection Time Receive d Time (Source) Location / / Volume Laterality Blood 12/27/2020 6:23 AM 7:22 EDT AM EDT Resulting Agency Comment Spec In Lab Jan Aguayo MD CHEMISTRY ORDERABLES Performing Organization Address [facility] Phon e Number [facility] [address] [place], [place] [address] Basic Metabolic Panel (non-fasting) (12/27/2020 6:23 AM EDT) P athologist Signature Glucose Lvl 98 65 - 199 DAY mg/dL LABORATORY Comment: Diabetes: >=200 mg/dL plus symp toms BUN 12 10 - 20 mg/dL [facility] DAY L ABORAT[facility] Creatinine 0.80 0.80 - 1.50 mg/dL [facility] DAY [facility] Sodium 140 135 - 145 mmol/L [facility] DA Y [facility] Potassium 3.7 3.5 - 5.0 mmol/L [facility] Comment: Please note: ??Patients with WBC >100,00 0 may have falsely elevated Potassium levels. ??For accurate Potassium quantif ication in these patients send serum separator tube (gold top) for subsequent determinations. ??Contact the Clinical Chemistry Laboratory if there are any qu estions. Chloride 104 98 - 107 mmol/L LABORATORY CO2 27 22 - 31 mmol/L LABORATORY Anion Gap 9 5 - 15 mmol/L L ABORATORY Calcium 9.1 8.5 - 10.5 mg/dL [facility] Y [facility] Estimated GFR 94 >=60 mL/min/1.73 m?? LABORATORY Comment: This patient? s estimated glomerular filtration rate (eGFR) is between 94 mL/min/1.73 m2 (patients with less muscl e mass per kg body weight) and 109 mL/min/1.73 m2 (patients with more muscl e [...] (Source) Location / / Volume Laterality Blood 12/27/2020 6:23 AM 1 7:22 EDT AM EDT Resulting Agency Comment Spec In Lab Jan Aguayo MD CHEMISTRY ORDERABLES Performing Organization Address City/State/ZIP Code Phon e Number [facility] [address] [place], [place] [address] POCT Glucose (12/27/2020 5:54 AM EDT) P athologist Signature POC Glucose 102 65 - 199 mg/dL LABORATORY Comment: Supplemental ranges: <140 mg/dL before meals <180 mg/dL all other times of the day Specimen Anatomical Collection Method Collection Time Receive d Time (Source) Location / / Volume Laterality Blood 12/27/2020 5:54 AM 1 5:54 EDT AM EDT Matt Petit MD POINT OF CARE TEST ORDERABLE S Performing Organization Address City/[facility]/ZIP Code Phon e [facility] [address] [place], [place] [address] POCT Glucose (12/26/2020 8:46 PM EDT) athologist Signature POC Glucose 94 65 - 199 [facility] DAY mg/dL LABORATORY Comment: Supplemental ranges: <140 mg/dL before meals <180 mg/dL all other times of the day Specimen Anatomical Collection Method Collection Time Receive d Time (Source) Location / / Volume Laterality Blood 12/26/2020 8:46 PM 8:46 EDT PM EDT Matt Petit MD POINT OF CARE TEST ORDERABLE S Performing Organization Address [facility] Code Phon e [facility] [address] [place], [place] [address] POCT Glucose (12/26/2020 6:23 PM EDT) athologist Signature POC Glucose 78 65 - 199 [facility] DAY mg/dL LABORATORY Comment: Supplemental ranges: <140 mg/dL before meals <180 mg/dL all other times of the day Specimen Anatomical Collection Method Collection Time Receive d Time (Source) Location / / Volume Laterality Blood 12/26/2020 6:23 PM 1 6:23 EDT PM EDT Matt Petit MD POINT OF CARE TEST ORDERABLE S Performing Organization Address City/[facility]/ZIP Code Phon e [facility] [address] [place], [place] [address] POCT Glucose (12/26/2020 4:22 PM EDT) athologist Signature POC Glucose 65 65 - 199 [facility] DAY mg/dL LABORATORY Comment: Supplemental ranges: <140 mg/dL before meals <180 mg/dL all other times of the day Specimen Anatomical Collection Method Collection Time Receive d Time (Source) Location / / Volume Laterality Blood 12/26/2020 4:22 PM 1 4:22 EDT PM EDT Matt Petit MD POINT OF CARE TEST ORDERABLE S Performing Organization Address City/State/ZIP Code Phon e Number [facility] [address] [place], [place] [address] (ABNORMAL) POCT Glucose (12/26/2020 12:42 PM EDT) athologist [facility] POC Glucose 259 (H) 65 - 199 [facility] AGUILAR mg/dL LABORATORY Comment: Supplemental ranges: <140 mg/dL before meals <180 mg/dL all other times of the day Specimen Anatomical Collection Method Collection Time Receive d Time (Source) Location / / Volume Laterality Blood 12/26/2020 12:42 12/26/2020 PM EDT 12:42 PM EDT Matt Petit MD POINT OF CARE TEST ORDERABLE S Performing Organization Address City/State/ZIP Code Phon e Number [facility] [address] [place], [place] [address] POCT Glucose (12/26/2020 8:15 AM EDT) [facility] Glucose 111 65 - 199 [facility] mg/dL LABORATORY Comment: Supplemental ranges: <140 mg/dL before meals <180 mg/dL all other times of the day Specimen Anatomical Collection Method Collection Time Receive d Time (Source) Location / / Volume Laterality Blood 12/26/2020 8:15 AM 8:15 EDT AM EDT Matt Petit MD POINT OF CARE TEST ORDERABLE S Performing Organization Address City/State/ZIP Code Phon e Number [facility] [address] [place], [place] [address] Differential, Automated (12/26/2020 5:55 AM EDT) athologist [facility] Neutrophils % 55.5 % LABORATORY Neutr Abs (ANC) 3.48 1.70 - 6.10 LABORATORY x10(3)/mcL Lymphocytes % 31.5 % LABORATORY Lymphocytes Abs 2.0 0.9 - 3.2 x10(3)/mcL LABORATORY Monocytes % 8.8 % LABORATORY Monocyte Abs 0.6 0.3 - 0.9 x10(3)/mcL LABORATORY Eosinophils % 3.4 % LABORATORY Eosinophils Abs 0.2 0.0 - 0.4 DAY x10(3)/mcL LABORATORY Basophils % 0.5 % LABORATORY Basophils Abs 0.0 0.0 - 0.1 DAY x10(3)/mcL LABORATORY Immature Gran % 0.30 % LABORATORY Comment: Immature granulocytes(IG's)percentage an d absolute count will include metamyelocytes, myelocytes, and promyelo cytes. Blood smears from CBCs yielding IG's will be scanned manually for concor dance. If this scan disagrees with the automated IG or if promyelocytes are not ed, a manual differential will be performed. Anneliese Gran Abs 0.02 0.00 - 0.04 x10(3)/mcL LABORATORY Specimen Anatomical Collection Method Collection Time Receive d Time (Source) Location / / Volume Laterality Blood 12/26/2020 5:55 AM 6:47 EDT AM EDT Resulting Agency Comment Spec In Lab Jan Aguayo MD HEMATOLOGY ORDERABLES Performing Organization Address City/State/ZIP Code Phon e Number LABORATORY [address] [place], [place] [address] (ABNORMAL) Hemogram (12/26/2020 5:55 AM EDT) Analysis Performed At Patho logist Time Signature WBC 6.3 4.0 - 9.5 DAY x10(3)/mcL LABORATORY RBC 3.88 (L) 4.58 - DAY 5.54 LABORATORY x10(6)/mcL Hemoglobin 11.8 (L) 13.7 - DAY 16.5 gm/dL LABORATORY Hematocrit 33.8 (L) 40.5 - 48.5 % LABORATORY MCV 87.1 82.9 - DAY 93.1 fL LABORATORY MCH 30.4 27.5 - DAY 32.1 pg LABORATORY MCHC 34.9 32.0 - DAY 35.7 gm/dL LABORATORY Platelets 178 145 - 357 DAY x10(3)/mcL LABORATORY RDWSD 45.2 (H) 36.0 - 45.0 fL LABORATORY RDWCV 14.3 (H) 11.4 - 13.8 % LABORATORY MPV 10.6 7.6 - 12.9 fL LABORATORY nRBC % Auto #NM % LABORATORY nRBC Abs Auto #NM 0.000 - 0.000 LABORATORY x10(3)/mcL Specimen Anatomical Collection Method Collection Time Receive d Time (Source) Location / / Volume Laterality Blood 12/26/2020 5:55 AM 1 6:47 EDT AM EDT Resulting Agency Comment Spec In Lab Jan Aguayo MD HEMATOLOGY ORDERABLES Performing Organization Address [facility] Phon e Number LABORATORY [address] [place], [place] [address] Phosphorus (12/26/2020 5:55 AM EDT) P athologist Signature Phosphorus 3.6 2.5 - 4.5 mg/dL LABORATORY Specimen Anatomical Collection Method Collection Time Receive d Time (Source) Location / / Volume Laterality Blood 12/26/2020 5:55 AM 1 6:48 EDT AM EDT Resulting Agency Comment Spec In Lab Jan Aguayo MD CHEMISTRY ORDERABLES Performing Organization Address [facility] Phon e Number LABORATORY [address] [facility] [place], [place] [address] Magnesium (12/26/2020 5:55 AM EDT) P athologist Signature Magnesium 0.70 0.69 - 1.07 mmol/L LABORATORY Specimen Anatomical Collection Method Collection Time Receive d Time (Source) Location / / Volume Laterality Blood 12/26/2020 5:55 AM 1 6:48 EDT AM EDT Resulting Agency Comment Spec In Lab Jan Aguayo MD CHEMISTRY ORDERABLES Performing Organization Address [facility] Phon e Number LABORATORY [address] [place], [place] [address] (ABNORMAL) Basic Metabolic Panel (non-fasting) (12/26/2020 5:55 AM EDT) P athologist Signature Glucose Lvl 126 65 - 199 [facility] mg/dL LABORATORY Comment: Diabetes: >=200 mg/dL plus symp toms BUN 13 10 - 20 mg/dL L ABORATORY Creatinine 0.69 (L) 0.80 - 1.50 mg/dL LABORATORY Sodium 139 135 - 145 mmol/L K [facility]ATORY Potassium 3.7 3.5 - 5.0 mmol/L [facility] Comment: Please note: ??Patients with WBC >100,00 0 may have falsely elevated Potassium levels. ??For accurate Potassium quantif ication in these patients send serum separator tube (gold top) for subsequent determinations. ??Contact the Clinical Chemistry Laboratory if there are any qu estions. Chloride 104 98 - 107 mmol/L LABORATORY CO2 25 22 - 31 mmol/L LABORATORY Anion Gap 10 5 - 15 mmol/L L [facility]ORY Calcium 9.0 8.5 - 10.5 mg/dL LABORATORY Estimated GFR 100 >=60 mL/min/1.73 m?? [facility] Comment: This patient? s estimated glomerular filtration rate (eGFR) is between 100 mL/min/1.73 m2 (patients with less muscl e mass per kg body weight) and 115 mL/min/1.73 m2 (patients with more muscl e [...] (Source) Location / / Volume Laterality Blood 12/26/2020 5:55 AM 6:48 EDT AM EDT Resulting Agency Comment Spec In Lab Jan Aguayo MD CHEMISTRY ORDERABLES Performing Organization Address City/State/ZIP Code Phon e Number [facility] [address] [place] [place] [address] POCT Glucose (12/25/2020 8:24 PM EDT) athologist Signature POC Glucose 79 65 - 199 [facility] mg/dL LABORATORY Comment: Supplemental ranges: <140 mg/dL before meals <180 mg/dL all other times of the day Specimen Anatomical Collection Method Collection Time Receive d Time (Source) Location / / Volume Laterality Blood 12/25/2020 8:24 PM 1 8:24 EDT PM EDT Matt Petit MD POINT OF CARE TEST ORDERABLE S Performing Organization Address City/[facility]/ZIP Code Phon e Number [facility] [address] [place], [place] [address] POCT Glucose (12/25/2020 3:51 PM EDT) athologist Signature POC Glucose 99 65 - 199 [facility] mg/dL LABORATORY Comment: Supplemental ranges: <140 mg/dL before meals <180 mg/dL all other times of the day Specimen Anatomical Collection Method Collection Time Receive d Time (Source) Location / / Volume Laterality Blood 12/25/2020 3:51 PM 1 3:51 EDT PM EDT Matt Petit MD POINT OF CARE TEST ORDERABLE S Performing Organization Address City/[facility]/ZIP Code Phon e Number [facility] [address], [place] [address] POCT Glucose (12/25/2020 11:48 AM EDT) athologist Signature POC Glucose 142 65 - 199 [facility] mg/dL LABORATORY Comment: Supplemental ranges: <140 mg/dL before meals <180 mg/dL all other times of the day Specimen Anatomical Collection Method Collection Time Receive d Time (Source) Location / / Volume Laterality Blood 12/25/2020 11:48 12/25/2020 AM EDT 11:48 AM EDT Matt Petit MD POINT OF CARE TEST ORDERABLE S Performing Organization Address City/State/ZIP Code Phon e Number [facility] [address], [place] [address] POCT Glucose (12/25/2020 7:04 AM EDT) athologist Signature POC Glucose 134 65 - 199 mg/dL LABORATORY Comment: Supplemental ranges: <140 mg/dL before meals <180 mg/dL all other times of the day Specimen Anatomical Collection Method Collection Time Receive d Time (Source) Location / / Volume Laterality Blood 12/25/2020 7:04 AM 7:04 EDT AM EDT Matt Petit MD POINT OF CARE TEST ORDERABLE S Performing Organization Address City/State/ZIP Code Phon e Number LABORATORY [address] [place], [place] [address] Differential, Automated (12/25/2020 6:25 AM EDT) athologist Signature Neutrophils % 53.3 % LABORATORY Neutr Abs (ANC) 3.21 1.70 - 6.10 LABORATORY x10(3)/mcL Lymphocytes % 30.0 % LABORATORY Lymphocytes Abs 1.8 0.9 - 3.2 DAY x10(3)/mcL LABORATORY Monocytes % 12.0 % LABORATORY Monocyte Abs 0.7 0.3 - 0.9 x10(3)/mcL LABORATORY Eosinophils % 4.2 % LABORATORY Eosinophils Abs 0.2 0.0 - 0.4 DAY x10(3)/mcL LABORATORY Basophils % 0.5 % LABORATORY Basophils Abs 0.0 0.0 - 0.1 DAY x10(3)/mcL LABORATORY Immature Gran % 0.00 % LABORATORY Comment: Immature granulocytes(IG's)percentage an d absolute count will include metamyelocytes, myelocytes, and promyelo cytes. Blood smears from CBCs yielding IG's will be scanned manually for concor danalesia. If this scan disagrees with the automated IG or if promyelocytes are not ed, a manual differential will be performed. Anneliese Gran Abs 0.00 0.00 - 0.04 x10(3)/mcL LABORATORY Specimen Anatomical Collection Method Collection Time Receive d Time (Source) Location / / Volume Laterality Blood 12/25/2020 6:25 AM 1 7:18 EDT AM EDT Resulting Agency Comment Spec In Lab Jan Aguayo MD HEMATOLOGY ORDERABLES Performing Organization Address City/[facility] Phon e Number LABORATORY [address] [place], [place] [address] (ABNORMAL) Hemogram (12/25/2020 6:25 AM EDT) P athologist Signature WBC 6.0 4.0 - 9.5 DAY x10(3)/mcL LABORATORY RBC 3.97 (L) 4.58 - DAY 5.54 LABORATORY x10(6)/mcL Hemoglobin 11.8 (L) 13.7 - DAY 16.5 gm/dL LABORATORY Hematocrit 35.1 (L) 40.5 - DAY 48.5 % LABORATORY MCV 88.4 82.9 - DAY 93.1 fL LABORATORY MCH 29.7 27.5 - DAY 32.1 pg LABORATORY MCHC 33.6 32.0 - DAY 35.7 gm/dL LABORATORY Platelets 183 145 - 357 DAY x10(3)/mcL LABORATORY RDWSD 45.6 (H) 36.0 - DAY 45.0 fL LABORATORY RDWCV 14.3 (H) 11.4 - DAY 13.8 % LABORATORY MPV 10.5 7.6 - 12.9 fL LABORATORY Specimen Anatomical Collection Method Collection Time Receive d Time (Source) Location / / Volume Laterality Blood 12/25/2020 6:25 AM 1 7:18 EDT AM EDT Resulting Agency Comment Spec In Lab Jan Aguayo MD HEMATOLOGY ORDERABLES Performing Organization Address City/[facility]/ZIP Code Phon e Number LABORATORY [address] [facility] [place], [place] [address] Phosphorus (12/25/2020 6:25 AM EDT) P athologist Signature Phosphorus 3.0 2.5 - 4.5 DAY mg/dL LABORATORY Specimen Anatomical Collection Method Collection Time Receive d Time (Source) Location / / Volume Laterality Blood 12/25/2020 6:25 AM 7:18 EDT AM EDT Resulting Agency Comment Spec In Lab Jan Aguayo MD CHEMISTRY ORDERABLES Performing Organization Address City/[facility] Phon e Number [facility] [address] [facility] [place] [address] Magnesium (12/25/2020 6:25 AM EDT) P athologist Signature Magnesium 0.70 0.69 - 1.07 mmol/L LABORATORY Specimen Anatomical Collection Method Collection Time Receive d Time (Source) Location / / Volume Laterality Blood 12/25/2020 6:25 AM 7:18 EDT AM EDT Resulting Agency Comment Spec In Lab Jan Aguayo MD CHEMISTRY ORDERABLES Performing Organization Address [facility] Phon e Number [facility] [address], [place] [address] (ABNORMAL) Basic Metabolic Panel (non-fasting) (12/25/2020 6:25 AM EDT) P athologist Signature Glucose Lvl 135 65 - 199 mg/dL LABORATORY Comment: Diabetes: >=200 mg/dL plus symp toms BUN 13 10 - 20 mg/dL L [facility]ORATORY Creatinine 0.77 (L) 0.80 - 1.50 mg/dL LABORATORY Sodium 141 135 - 145 mmol/L [facility] Potassium 3.9 3.5 - 5.0 mmol/L [facility] Comment: Please note: ??Patients with WBC >100,00 0 may have falsely elevated Potassium levels. ??For accurate Potassium quantif ication in these patients send serum separator tube (gold top) for subsequent determinations. ??Contact the Clinical Chemistry Laboratory if there are any qu estions. Chloride 105 98 - 107 mmol/L LABORATORY CO2 27 22 - 31 mmol/L [facility] Anion Gap 9 5 - 15 mmol/L [facility] L [facility]ORATORY Calcium 9.1 8.5 - 10.5 mg/dL [facility] Y [facility] Estimated GFR 95 >=60 mL/min/1.73 m?? LABORATORY Comment: This patient? s estimated glomerular filtration rate (eGFR) is between 95 mL/min/1.73 m2 (patients with less muscl e mass per kg body weight) and 110 mL/min/1.73 m2 (patients with more muscl e [...] (Source) Location / / Volume Laterality Blood 12/25/2020 6:25 AM 7:18 EDT AM EDT Resulting Agency Comment Spec In Lab Jan Aguayo MD CHEMISTRY ORDERABLES Performing Organization Address City/[facility] Phon e Number [facility] [address] [facility] [place] [address] POCT Glucose (12/24/2020 11:39 PM EDT) athologist Signature POC Glucose 133 65 - 199 mg/dL LABORATORY Comment: Supplemental ranges: <140 mg/dL before meals <180 mg/dL all other times of the day Specimen Anatomical Collection Method Collection Time Receive d Time (Source) Location / / Volume Laterality Blood specimen 12/24/2020 11:39 1 (specimen) PM EDT 11:39 PM EDT Matt Petit MD POINT OF CARE TEST ORDERABLE S Performing Organization Address City/[facility] Phon e Number [facility] [address] [place], [place] [address] POCT Glucose (12/24/2020 9:43 PM EDT) athologist Signature POC Glucose 91 65 - 199 mg/dL LABORATORY Comment: Supplemental ranges: <140 mg/dL before meals <180 mg/dL all other times of the day Specimen Anatomical Collection Method Collection Time Receive d Time (Source) Location / / Volume Laterality Blood specimen 12/24/2020 9:43 PM 021 9:43 (specimen) EDT PM EDT Matt Petit MD POINT OF CARE TEST ORDERABLE S Performing Organization Address City/[facility]/ZIP Code Phon e [facility] [address], [place] [address] POCT Glucose (12/24/2020 8:58 PM EDT) athologist Signature POC Glucose 66 65 - 199 [facility] DAY mg/dL LABORATORY Comment: Supplemental ranges: <140 mg/dL before meals <180 mg/dL all other times of the day Specimen Anatomical Collection Method Collection Time Receive d Time (Source) Location / / Volume Laterality Blood specimen 12/24/2020 8:58 PM 021 8:58 (specimen) EDT PM EDT Matt Petit MD POINT OF CARE TEST ORDERABLE S Performing Organization Address [facility]/ZIP Code Phon e [facility]ully [facility] [address] [place], [place] [address] POCT Glucose (12/24/2020 4:49 PM EDT) athologist Signature POC Glucose 95 65 - 199 [facility] mg/dL LABORATORY Comment: Supplemental ranges: <140 mg/dL before meals <180 mg/dL all other times of the day Specimen Anatomical Collection Method Collection Time Receive d Time (Source) Location / / Volume Laterality Blood specimen 12/24/2020 4:49 PM 021 4:49 (specimen) EDT PM EDT Matt Petit MD POINT OF CARE TEST ORDERABLE S Performing Organization Address City/[facility]/ZIP Code Phon e Number [facility] [address] [place], [place] [address] POCT Glucose (12/24/2020 11:52 AM EDT) athologist Signature POC Glucose 180 65 - 199 [facility] mg/dL LABORATORY Comment: Supplemental ranges: <140 mg/dL before meals <180 mg/dL all other times of the day Specimen Anatomical Collection Method Collection Time Receive d Time (Source) Location / / Volume Laterality Blood specimen 12/24/2020 11:52 1 (specimen) AM EDT 11:52 AM EDT Matt Petit MD POINT OF CARE TEST ORDERABLE S Performing Organization Address City/[facility]/ZIP [facility] [place] Phon e Number [facility] [address] [place], [place] [address] POCT Glucose (12/24/2020 8:43 AM EDT) athologist Signature POC Glucose 154 65 - 199 [facility] mg/dL LABORATORY Comment: Supplemental ranges: <140 mg/dL before meals <180 mg/dL all other times of the day Specimen Anatomical Collection Method Collection Time Receive d Time (Source) Location / / Volume Laterality Blood specimen 12/24/2020 8:43 AM 021 8:43 (specimen) EDT AM EDT Jan Aguayo MD POINT OF CARE TEST ORDERABLE S Performing Organization Address [facility] Phon e Number [facility] [address], [place] [address] EKG 12 Lead (12/24/2020 8:18 AM EDT) Component Value Ref Range Test Analysis Performed Pathologis t Method Time At Signature Ventricular rate 59 BPM MUSE SYSTEM Atrial Rate 62 BPM MUSE SYSTEM QRS Duration 72 ms MUSE SYSTEM Q-T Interval 458 ms MUSE SYSTEM QTC Calculated 453 ms MUSE SYSTEM (Bezet) Calculated R Lyons 23 degrees MUSE SYSTEM Calculated T Lyons -3 degrees MUSE SYSTEM INTERPRETATION Poor data quality, interpretation may be adversel y affected MUSE SYSTEM Normal sinus rhythm Artifact. Abnormal ECG When compared with ECG of 20-DEC-2020 15:40, Leads no longer reversed. More artifact. Confirmed by Clifton Richmond ([id number]) on 12/26/2020 4:55: 59 PM Specimen Anatomical Collection Method Collection Time Receive d Time (Source) Location / / Volume Laterality 12/24/2020 8:18 AM 4:55 EDT PM EDT Jan Aguayo MD ECG ORDERABLES Performing Organization Address City/[facility]/ZIP Code Phon e Number MUSE SYSTEM Differential, Automated (12/24/2020 6:30 AM EDT) P athologist Signature Neutrophils % 55.2 % LABORATORY Neutr Abs (ANC) 3.19 1.70 - 6.10 LABORATORY x10(3)/mcL Lymphocytes % 30.7 % LABORATORY Lymphocytes Abs 1.8 0.9 - 3.2 DAY x10(3)/mcL LABORATORY Monocytes % 10.5 % LABORATORY Monocyte Abs 0.6 0.3 - 0.9 DAY x10(3)/mcL LABORATORY Eosinophils % 3.3 % LABORATORY Eosinophils Abs 0.2 0.0 - 0.4 DAY x10(3)/mcL LABORATORY Basophils % 0.3 % LABORATORY Basophils Abs 0.0 0.0 - 0.1 DAY x10(3)/mcL LABORATORY Immature Gran % 0.00 % LABORATORY Comment: Immature granulocytes(IG's)percentage an d absolute count will include metamyelocytes, myelocytes, and promyelo cytes. Blood smears from CBCs yielding IG's will be scanned manually for concor dance. If this scan disagrees with the automated IG or if promyelocytes are not ed, a manual differential will be performed. Anneliese Gran Abs 0.00 0.00 - 0.04 x10(3)/mcL LABORATORY Specimen Anatomical Collection Method Collection Time Receive d Time (Source) Location / / Volume Laterality Blood specimen 12/24/2020 6:30 AM 021 6:51 (specimen) EDT AM EDT Resulting Agency Comment Spec In Lab Jan Aguayo MD HEMATOLOGY ORDERABLES Performing Organization Address City/State/ZIP Code Phon e Number LABORATORY [address] [place], [place] [address] (ABNORMAL) Hemogram (12/24/2020 6:30 AM EDT) P athologist Signature WBC 5.8 4.0 - 9.5 DAY x10(3)/mcL LABORATORY RBC 3.89 (L) 4.58 - [facility] DAY 5.54 LABORATORY x10(6)/mcL Hemoglobin 11.6 (L) 13.7 - 16.5 gm/dL LABORATORY Hematocrit 34.2 (L) 40.5 - 48.5 % LABORATORY MCV 87.9 82.9 - 93.1 fL LABORATORY MCH 29.8 27.5 - 32.1 pg LABORATORY MCHC 33.9 32.0 - 35.7 gm/dL LABORATORY Platelets 161 145 - 357 x10(3)/mcL LABORATORY RDWSD 45.7 (H) 36.0 - 45.0 fL LABORATORY RDWCV 14.4 (H) 11.4 - 13.8 % LABORATORY MPV 10.6 7.6 - 12.9 fL LABORATORY Specimen Anatomical Collection Method Collection Time Receive d Time (Source) Location / / Volume Laterality Blood specimen 12/24/2020 6:30 AM 021 6:51 (specimen) EDT AM EDT Resulting Agency Comment Spec In Lab Jan Aguayo MD HEMATOLOGY ORDERABLES Performing Organization Address City/[facility]/ZIP [facility] [place] Phon e Number LABORATORY [address] [facility] [place], [place] [address] Phosphorus (12/24/2020 6:30 AM EDT) P athologist Signature Phosphorus 3.6 2.5 - 4.5 mg/dL LABORATORY Specimen Anatomical Collection Method Collection Time Receive d Time (Source) Location / / Volume Laterality Blood specimen 12/24/2020 6:30 AM 021 6:51 (specimen) EDT AM EDT Resulting Agency Comment Spec In Lab Jan Aguayo MD CHEMISTRY ORDERABLES Performing Organization Address City/[facility] [place] Phon e Number LABORATORY [address] [place], [place] [address] Magnesium (12/24/2020 6:30 AM EDT) P athologist Signature Magnesium 0.70 0.69 - 1.07 mmol/L LABORATORY Specimen Anatomical Collection Method Collection Time Receive d Time (Source) Location / / Volume Laterality Blood specimen 12/24/2020 6:30 AM 021 6:51 (specimen) EDT AM EDT Resulting Agency Comment Spec In Lab Jan Aguayo MD CHEMISTRY ORDERABLES Performing Organization Address City/State/ZIP Code Phon e Number [facility] [address] [place], [place] [address] (ABNORMAL) Basic Metabolic Panel (non-fasting) (12/24/2020 6:30 AM EDT) P athologist Signature Glucose Lvl 132 65 - 199 mg/dL LABORATORY Comment: Diabetes: >=200 mg/dL plus symp toms BUN 15 10 - 20 mg/dL L ABORATORY Creatinine 0.77 (L) 0.80 - 1.50 mg/dL LABORATORY Sodium 141 135 - 145 mmol/L [facility] Potassium 4.0 3.5 - 5.0 mmol/L [facility] Comment: Please note: ??Patients with WBC >100,00 0 may have falsely elevated Potassium levels. ??For accurate Potassium quantif ication in these patients send serum separator tube (gold top) for subsequent determinations. ??Contact the Clinical Chemistry Laboratory if there are any qu estions. Chloride 105 98 - 107 mmol/L LABORATORY CO2 24 22 - 31 mmol/L LABORATORY Anion Gap 12 5 - 15 mmol/L L ABORATORY Calcium 8.7 8.5 - 10.5 mg/dL [facility] Estimated GFR 95 >=60 mL/min/1.73 m?? [facility] Comment: This patient? s estimated glomerular filtration rate (eGFR) is between 95 mL/min/1.73 m2 (patients with less muscl e mass per kg body weight) and 110 mL/min/1.73 m2 (patients with more muscl e [...] Location / / Volume Laterality Blood specimen 12/24/2020 6:30 AM 021 6:51 (specimen) EDT AM EDT Resulting Agency Comment Spec In Lab Jan Aguayo MD CHEMISTRY ORDERABLES Performing Organization Address City/[facility]/ZIP Code Phon e Number [facility] [address] [place], [place] [address] (ABNORMAL) CK (12/24/2020 6:30 AM EDT) P athologist Signature CK, Total 475 (H) 0 - 200 [facility] DAY unit/L LABORATORY Specimen Anatomical Collection Method Collection Time Receive d Time (Source) Location / / Volume Laterality Blood specimen 12/24/2020 6:30 AM 021 6:51 (specimen) EDT AM EDT Resulting Agency Comment Spec In Lab Jan Aguayo MD CHEMISTRY ORDERABLES Performing Organization Address City/[facility]/ZIP Code Phon e Number [facility] [address] [place], [place] [address] Troponin (12/24/2020 6:30 AM EDT) P athologist Signature Troponin-T <0.01 0.00 - 0.00 [facility] ng/mL LABORATORY Specimen Anatomical Collection Method Collection Time Receive d Time (Source) Location / / Volume Laterality Blood specimen 12/24/2020 6:30 AM 021 6:51 (specimen) EDT AM EDT Resulting Agency Comment Spec In Lab Jan Aguayo MD CHEMISTRY ORDERABLES Performing Organization Address City/[facility]/ZIP [facility] [place] Phon e Number [facility]IA [facility] [address] [place], [place] [address] (ABNORMAL) CK (12/23/2020 7:15 PM EDT) P athologist Signature CK, Total 637 (H) 0 - 200 [facility] DAY unit/L LABORATORY Specimen Anatomical Collection Method Collection Time Receive d Time (Source) Location / / Volume Laterality Blood specimen 12/23/2020 7:15 PM 05/14/2 021 7:22 (specimen) EDT PM EDT Resulting Agency Comment Spec In Lab Jan Aguayo MD CHEMISTRY ORDERABLES Performing Organization Address City/[facility]/ZIP Code Phon e Number LABORATORY [address] [place], [place] [address] Troponin (12/23/2020 7:15 PM EDT) athologist Signature Troponin-T <0.01 0.00 - 0.00 ng/mL LABORATORY Specimen Anatomical Collection Method Collection Time Receive d Time (Source) Location / / Volume Laterality Blood specimen 12/23/2020 7:15 PM 021 7:22 (specimen) EDT PM EDT Resulting Agency Comment Spec In Lab Jan Aguayo MD CHEMISTRY ORDERABLES Performing Organization Address [facility] [place] Phon e Number [facility] [address] [facility] [place], [place] [address] Differential, Automated (12/23/2020 7:15 PM EDT) athologist Signature Neutrophils % 64.7 % [facility] Neutr Abs (ANC) 5.00 1.70 - [facility] DAY 6.10 LABORATORY x10(3)/mcL Lymphocytes % 24.3 % [facility] Lymphocytes Abs 1.9 0.9 - 3.2 [facility] x10(3)/mcL LABORATORY Monocytes % 9.0 % [facility] Monocyte Abs 0.7 0.3 - 0.9 [facility] x10(3)/mcL LABORATORY Eosinophils % 1.4 % [facility] Eosinophils Abs 0.1 0.0 - 0.4 [facility] x10(3)/mcL LABORATORY Basophils % 0.5 % [facility] Basophils Abs 0.0 0.0 - 0.1 [facility] x10(3)/mcL LABORATORY Immature Gran % 0.10 % [facility] Comment: Immature granulocytes(IG's)percentage an d absolute count will include metamyelocytes, myelocytes, and promyelo cytes. Blood smears from CBCs yielding IG's will be scanned manually for concor danalesia. If this scan disagrees with the automated IG or if promyelocytes are not ed, a manual differential will be performed. Anneliese Gran Abs 0.01 0.00 - 0.04 x10(3)/mcL LABORATORY Specimen Anatomical Collection Method Collection Time Receive d Time (Source) Location / / Volume Laterality Blood specimen 12/23/2020 7:15 PM 021 7:22 (specimen) EDT PM EDT Resulting Agency Comment Spec In Lab Jan Aguayo MD HEMATOLOGY ORDERABLES Performing Organization Address City/State/ZIP Code Phon e Number LABORATORY [address] [place], [place] [address] (ABNORMAL) Hemogram (12/23/2020 7:15 PM EDT) P athologist Signature WBC 7.7 4.0 - 9.5 DAY x10(3)/mcL LABORATORY RBC 4.19 (L) 4.58 - DAY 5.54 LABORATORY x10(6)/mcL Hemoglobin 12.6 (L) 13.7 - DAY 16.5 gm/dL LABORATORY Hematocrit 36.2 (L) 40.5 - 48.5 % LABORATORY MCV 86.4 82.9 - DAY 93.1 fL LABORATORY MCH 30.1 27.5 - DAY 32.1 pg LABORATORY MCHC 34.8 32.0 - DAY 35.7 gm/dL LABORATORY Platelets 200 145 - 357 DAY x10(3)/mcL LABORATORY RDWSD 45.4 (H) 36.0 - DAY 45.0 fL LABORATORY RDWCV 14.2 (H) 11.4 - DAY 13.8 % LABORATORY MPV 10.3 7.6 - 12.9 fL LABORATORY Specimen Anatomical Collection Method Collection Time Receive d Time (Source) Location / / Volume Laterality Blood specimen 12/23/2020 7:15 PM 021 7:22 (specimen) EDT PM EDT Resulting Agency Comment Spec In Lab Jan Aguayo MD HEMATOLOGY ORDERABLES Performing Organization Address City/State/ZIP Code Phon e Number LABORATORY [address] [place], [place] [address] APTT (12/23/2020 7:15 PM EDT) P athologist Signature PTT 29 25 - 37 sec [facility] Specimen Anatomical Collection Method Collection Time Receive d Time (Source) Location / / Volume Laterality Blood specimen 12/23/2020 7:15 PM 021 7:22 (specimen) EDT PM EDT Resulting Agency Comment Spec In Lab Jan Aguayo MD HEMATOLOGY ORDERABLES Performing Organization Address City/[facility]/ZIP Code Phon e Number [facility] [address] [place], [place] [address] (ABNORMAL) Prothrombin Time (12/23/2020 7:15 PM EDT) P athologist Signature PT 13.5 (H) 9.4 - 12.5 sec LABORATORY INR 1.2 LABORATORY Comment: An INR <2.0 indicates adequate [...] / / Volume Laterality Blood specimen 12/23/2020 7:15 PM 021 7:22 (specimen) EDT PM EDT Resulting Agency Comment Spec In Lab Jan Aguayo MD HEMATOLOGY ORDERABLES Performing Organization Address City/State/ZIP Code Phon e Number [facility] [address] [place], [place] [address] Phosphorus (12/23/2020 7:15 PM EDT) P athologist Signature Phosphorus 3.7 2.5 - 4.5 mg/dL LABORATORY Specimen Anatomical Collection Method Collection Time Receive d Time (Source) Location / / Volume Laterality Blood specimen 12/23/2020 7:15 PM 021 7:22 (specimen) EDT PM EDT Resulting Agency Comment Spec In Lab Jan Aguayo MD CHEMISTRY ORDERABLES Performing Organization Address City/[facility]/ZIP Code Phon e Number [facility] [address] [facility] [place] [address] Magnesium (12/23/2020 7:15 PM EDT) P athologist Signature Magnesium 0.80 0.69 - 1.07 mmol/L LABORATORY Specimen Anatomical Collection Method Collection Time Receive d Time (Source) Location / / Volume Laterality Blood specimen 12/23/2020 7:15 PM 021 7:22 (specimen) EDT PM EDT Resulting Agency Comment Spec In Lab Jan Aguayo MD CHEMISTRY ORDERABLES Performing Organization Address [facility] Phon e Number [facility] [address] [facility] [address] [place] [place] [address] (ABNORMAL) Basic Metabolic Panel (non-fasting) (12/23/2020 7:15 PM EDT) athologist Signature Glucose Lvl 130 65 - 199 mg/dL LABORATORY Comment: Diabetes: >=200 mg/dL plus symp toms BUN 17 10 - 20 mg/dL L [facility]ORATORY Creatinine 1.02 0.80 - 1.50 mg/dL LABORATORY Sodium 142 135 - 145 mmol/L LABORATORY Potassium 3.3 (L) 3.5 - 5.0 mmol/L Y LABORATORY Comment: Please note: ??Patients with WBC >100,00 0 may have falsely elevated Potassium levels. ??For accurate Potassium quantif ication in these patients send serum separator tube (gold top) for subsequent determinations. ??Contact the Clinical Chemistry Laboratory if there are any qu estions. Chloride 103 98 - 107 mmol/L LABORATORY CO2 24 22 - 31 mmol/L LABORATORY Anion Gap 15 5 - 15 mmol/L L ABORATORY Calcium 9.5 8.5 - 10.5 mg/dL Y LABORATORY Estimated GFR 77 >=60 mL/min/1.73 m?? LABORATORY Comment: This patient? s estimated glomerular filtration rate (eGFR) is between 77 mL/min/1.73 m2 (patients with less muscl e mass per kg body weight) and 89 mL/min/1.73 m2 (patients with more muscl e [...] / / Volume Laterality Blood specimen 12/23/2020 7:15 PM 021 7:22 (specimen) EDT PM EDT Resulting Agency Comment Spec In Lab Jan Aguayo MD CHEMISTRY ORDERABLES Performing Organization Address City/[facility]/ZIP [facility] [place] Phon e Number [facility] [address], [place] [address] POCT Glucose (12/23/2020 6:50 PM EDT) athologist Signature POC Glucose 183 65 - 199 [facility] DAY mg/dL LABORATORY Comment: Supplemental ranges: <140 mg/dL before meals <180 mg/dL all other times of the day Specimen Anatomical Collection Method Collection Time Receive d Time (Source) Location / / Volume Laterality Blood specimen 12/23/2020 6:50 PM 021 6:50 (specimen) EDT PM EDT Jan Aguayo MD POINT OF CARE TEST ORDERABLE S Performing Organization Address City/[facility] Phon e Number [facility] [address], [place] [address] POCT Glucose (12/23/2020 5:17 PM EDT) athologist Signature POC Glucose 185 65 - 199 [facility] mg/dL LABORATORY Comment: Supplemental ranges: <140 mg/dL before meals <180 mg/dL all other times of the day Specimen Anatomical Collection Method Collection Time Receive d Time (Source) Location / / Volume Laterality Blood specimen 12/23/2020 5:17 PM 021 5:17 (specimen) EDT PM EDT Jan Aguayo MD POINT OF CARE TEST ORDERABLE S Performing Organization Address City/State/ZIP Code Phon e Number [facility] [address] [place], [place] [address] documented in this encounter Visit Diagnoses Diagnosis Syncope, unspecified syncope type Parkinson's disease Paralysis agitans Acute cystitis without hematuria Acute cystitis Urinary tract infection Urinary tract infection, site not specif ied documented in this encounter Admitting Diagnoses Diagnosis Urinary tract infection Urinary tract infection, site not specif ied documented in this encounter Administered Medications Inactive Administered Medications - up to 3 most recent administrations Medication Order MAR Action Action Date Dose Rate Site atorvastatin (Lipitor) tablet 10 mg Given 12/26/2020 8:56 PM EDT 10 mg 10 mg, Oral, NIGHTLY, First dose on Sat12/23/20 at 2100, Until Discontinued, Routine Given 12/25/2020 8:40 PM EDT 10 mg Given 12/24/2020 8:46 PM EDT 10 mg bisacodyL (Dulcolax) suppository 10 mg Given 12/27/2020 3:08 PM EDT 10 mg 10 mg, Rectal, DAILY PRN, Starting on Sat12/25/20 at 0902, Until Sat12/27/20 at 2035, Constipation, Routine carbidopa-levodopa (Sinemet) 25-250 mg per Given 12/27 6:17 PM EDT 1 tablet tablet 1 tablet 1 tablet, Oral, 5 TIMES DAILY, First dose on Sat12/23/20 at 1800, Until Discontinued, Routine Given 12/27/2020 3:08 PM EDT 1 tablet Given 12/27/2020 12:55 PM EDT 1 tablet cefpodoxime (Vantin) tablet 200 mg Given 12/26/2020 10:45 AM EDT 200 mg 200 mg, Oral, 2 TIMES DAILY, 6 doses, First dose on Sat12/23/20 at 2100, Last dose on Sat12/26/20 at 0900, Routine Given 12/25/2020 8:39 PM EDT 200 mg Given 12/25/2020 8:24 AM EDT 200 mg dextrose 50% intravenous solution 25-50 mL 25-50 mL (12.5-25 g), Intravenous, EVERY 1 HOUR PRN, S tarting on Sat12/23/20 at 1640, Until Sat12/27/20 at 2036, Low blo od sugar, For BG 50-70: 120 mL Juice or Regular (not diet) soda OR 12.5 gram (25 mL) Dextrose 50% IV OR, if no IV access, 1 mg Glucagon IM. Recheck BG in 30 minut es. May repeat juice, dextrose or glucagon once per episode For BG less than 50: 240 mL Juice or Regular (not diet) soda OR 25 grams (50 mL) Dextrose 50% IV OR, if no IV access, 1 mg Glucagon IM. Recheck BG in 30 minutes. May repeat juice, dext yadi, or glucagon once per episode. To avoid extravasation, push Dextrose 50% SLOWLY (3 mL ov er 1 minute) in a patent, running IV, preferably a central line. For persisten t hypoglycemia, consider longer-acting treatment for the duration of the active insulin., Routine DULoxetine DR (Cymbalta) capsule 30 mg Given 12/27/2020 3:08 PM EDT 30 mg 30 mg, Oral, 3 TIMES DAILY, First dose on Sat12/23/20 at 2100, Until Discontinued, Routine Given 12/27/2020 8:27 AM EDT 30 mg Given 12/26/2020 8:56 PM EDT 30 mg enoxaparin (Lovenox) (40 mg/0.4 mL) Given 12/26/2020 8:57 PM EDT 40 mg subcutaneous injection 40 mg 40 mg, Subcutaneous, NIGHTLY, First dose on Sat12/25/20 at 2100, Until Discontinued, Routine Given 12/25/2020 8:39 PM EDT 40 mg entacapone (Comtan) tablet 200 mg Given 12/27/2020 3:09 PM EDT 200 mg 200 mg, Oral, 3 TIMES DAILY, First dose (after last reorder) on Sat12/23/20 at 2100, Until Discontinued, to bring home supply, Routine Given 12/27/2020 8:29 AM EDT 200 mg Given 12/26/2020 8:59 PM EDT 200 mg glipiZIDE (Glucotrol) tablet 5 mg Given 12/27/2020 4:46 PM EDT 5 mg 5 mg, Oral, 2 TIMES DAILY BEFORE MEALS, First dose on Sat12/23/20 at 1730, Until Discontinued, Administer 30 minutes before the meal. Consider holding dose if patient is not eating. , Routine Given 12/27/2020 8:27 AM EDT 5 mg Given 12/26/2020 4:00 PM EDT 5 mg glucagon (Human Recombinant) injection 1 mg 1 mg, Intramuscular, EVERY 1 HOUR PRN, S tarting on Sat12/23/20 at 1640, Until Sat12/27/20 at 2035, Low Blood Sugar, For BG 50-70: 120 mL Juice or Regular (not diet) soda OR 12.5 gram (25 mL) Dextrose 50% IV OR, if no IV access, 1 mg Glucagon IM. Recheck BG in 30 minutes. May repeat juice, dext yadi or glucagon once per episode For BG less than 50: 240 mL Ju ice or Regular (not diet) soda OR 25 grams (50 mL) Dextrose 50% IV OR, if no IV acc ess, 1 mg Glucagon IM. Recheck BG in 30 minutes. May repeat juice, dextrose, or glucagon once per episode. To avoid extravasation, push Dextrose 50% SLOWLY (3 mL over 1 minute) in a patent, running IV, preferably a central line. For persistent hypogl ycemia, consider longer-acting treatment for the duration of the active insulin., Routine glucose (GLUTOSE) 40% oral geL 15-30 g, Buccal, EVERY 1 HOUR PRN, Starting on 12/10 at 1640, Until Sat12/27/20 at 2035, Low blood sugar, For BG 50-70 mg/dL: 120 mL Juice or Regular (not diet) soda OR 15 gram glucose 40% o ral gel OR 12.5 gram (15 mL) Dextrose 50% IV OR, if no IV access, 1 mg Glucagon IM . Recheck BG in 30 minutes. May repeat juice, gel, dextrose or glucagon once pe r episode For BG less than 50 mg/dL: 240 ml Juice or Regualr (not diet) soda OR 3 0 gram glucose 40% oral gel OR 25 gram (50 mL) Dextrose 50% IV OR, if no IV access, 1 mg Glucagon IM Recheck BG in 30 minutes. May repeat juice, gel, dextrose or glucagon once per episode. To avoid extravasation, push Dextrose 50% SLOWLY (3 mL over 1 minute) in a patent, running IV, preferably a central line For persistent hypogl ycemia, consider longer-acting treatment for the duration of the active insulin 1 tube contains 15 grams of glucose (net weight of tube = 37.5 grams., Ro utine insulin lispro (HumaLOG;Admelog) Given 12/25/2020 12:24 PM EDT 5 Units Right Arm (100 unit/mL) subcutaneous injection vial 0-8 Units 0-8 Units, Subcutaneous, 3 TIMES DAILY WITH MEALS, First dose on Sat12/23/20 at 1730, Until Discontinued, MEAL ASSOCIATED Give 1 unit for every 10 grams carbohydrate. Hold if not eating or if BG less than 70., Routine Given 12/25/2020 8:27 AM EDT 3 Units Given 12/24/2020 5:45 PM EDT 3 Units insulin lispro (HumaLOG;Admelog) (100 Given 12/26/2020 12:51 PM EDT 3 Units unit/mL) subcutaneous injection vial 1-3 Units 1-3 Units, Subcutaneous, 3 TIMES DAILY BEFORE MEALS, First dose (after last modification) on Sat12/26/20 at 0730, Until Discontinued, CORRECTION BOLUS Sensitive to insulin lean patient or total daily dose of all insulin needed to achieve glycemic control less than 30 units BG 161 - 200 Give 1 units BG 201 - 240 Give 2 units BG greater than 240, give 3 units and recheck BG in 2 hours. If less than 240 after two hours, give no insulin and resume prior schedule. If BG remains greater than 240, repeat 3 units (no more than three times) & call for new basal insulin orders. DO NOT hold if NPO, unless specifically told to do so., Routine insulin lispro (HumaLOG;Admelog) (100 Given 12/24/2020 1:00 PM E DT 2 Units unit/mL) subcutaneous injection vial 2-4 Units 2-4 Units, Subcutaneous, 3 TIMES DAILY BEFORE MEALS, First dose on Sat12/23/20 at 1730, Until Discontinued, CORRECTION BOLUS Sensitive to insulin lean patient or total daily dose of all insulin needed to achieve glycemic control less than 30 units BG 161 - 200 Give 2 units BG 201 - 240 Give 3 units BG greater than 240, give 4 units and recheck BG in 2 hours. If less than 240 after two hours, give no insulin and resume prior schedule. If BG remains greater than 240, repeat 4 units (no more than three times) & call for new basal insulin orders. DO NOT hold if NPO, unless specifically told to do so., Routine Given 12/23/2020 6:00 PM EDT 2 Units lactated Ringers 1,000 mL IV bolus New Bag 12/23/2020 9:58 PM EDT 500 mL/hr at 500 mL/hr, Intravenous, ONCE, 1 dose, On Sat12/23/20 at 2230 lactated ringers infusion New Bag 12/23/2020 9:55 PM EDT 100 mL/hr 100 mL/hr 100 mL/hr, Intravenous, CONTINUOUS, Starting on Sat12/23/20 at 2230, Until Sat12/24/20 at 0934 melatonin tablet 6 mg Given 12/26/2020 2:11 AM EDT 6 mg 6 mg, Oral, NIGHTLY PRN, Starting on Sat12/23/20 at 1640, Until Sat12/27/20 at 2036, insomnia, Routine Given 12/24/2020 12:01 AM EDT 6 mg metFORMIN (Glucophage) tablet 1,000 mg Given 12/27/2020 4:46 PM EDT 1,000 mg 1,000 mg, Oral, 2 TIMES DAILY WITH MEALS, First dose on Sat12/23/20 at 1730, Until Discontinued, Routine Given 12/27/2020 8:25 AM EDT 1,000 mg Given 12/26/2020 4:00 PM EDT 1,000 mg metoprolol succinate XL (Toprol-XL) tablet Given 12/25/2020 8:24 AM EDT 100 mg 100 mg 100 mg, Oral, DAILY, First dose (after last modification) on Sat12/25/20 at 0900, Until Discontinued, DO NOT CRUSH OR OPEN Hold for systolic < 100 or pulse < 60, Routine metoprolol succinate XL (Toprol-XL) tablet Given 12/24/2020 8:44 AM EDT 150 mg 150 mg 150 mg, Oral, DAILY, First dose on Sat12/24/20 at 0900, Until Discontinued, DO NOT CRUSH OR OPEN Hold for systolic < 100 or pulse < 60, Routine metoprolol succinate XL (Toprol-XL) tablet 50 Given 8:25 AM EDT 50 mg mg 50 mg, Oral, DAILY, First dose (after last modification) on Sat12/27/20 at 0900, Until Discontinued, DO NOT CRUSH OR OPEN Hold for systolic < 100 or pulse < 60, Routine oxybutynin (Ditropan) tablet 5 mg Given 12/27/2020 8:27 AM EDT 5 mg 5 mg, Oral, 2 TIMES DAILY, First dose on Sat12/26/20 at 2100, Until Discontinued, Routine Given 12/26/2020 8:56 PM EDT 5 mg polyethylene glycoL (Miralax) packet 17 g Given 12/27/2020 8:30 AM EDT 17 g 17 g, Oral, DAILY, First dose (after last modification) on Sat12/25/20 at 1000, Until Discontinued, Routine Given 12/26/2020 10:44 AM EDT 17 g Given 12/25/2020 11:50 AM EDT 17 g potassium chloride ER (K-Dur/Klor-Con) tablet Given 3:47 AM EDT 40 mEq 40 mEq 40 mEq, Oral, EVERY 4 HOURS, 2 doses, First dose on Sat12/23/20 at 2230, Last dose on Sat12/24/20 at 0230, Routine Given 12/23/2020 10:02 PM EDT 40 mEq senna (Senokot) tablet 17.2 mg Given 12/26/2020 8:56 PM EDT 17.2 mg 17.2 mg, Oral, NIGHTLY, First dose on Sat12/25/20 at 2100, Until Discontinued, Routine Given 12/25/2020 8:40 PM EDT 17.2 mg documented in this encounter Active and Recently Administered Medications Times are shown in EDT. Scheduled Medication Order 12/25/2020 12/26/2020 12/27/2020 atorvastatin (Lipitor) tablet 10 mg 2039 (Given - Prov ider: Lorrie Dockery RN) 2055 (Given - Provider: Nola North RN) 10 mg, Oral, NIGHTLY, First dose on Sat12/23/20 at 2100, Until Discontinued, Routine carbidopa-levodopa (Sinemet) 25-250 mg per tablet 1 ta blet 0824 (Given - Provider: Vishnu Phelps RN)1150 (Given - Provider: Vishnu Phelps RN)1506 (Given - Provider: Vishnu Phelps RN)1725 (Given - Provider: Marcelle James RN)2039 (Given - Provider: Lorrie Dockery RN) 1046 (Given - Provider: Rebecca Conrad RN)1240 (Given - Provider: Rebecca Conrad RN)1600 (Given - Provider: Rebecca Conrad RN)181 (Given - Provider: Rebecca Conrad RN)2055 (Given - Provider: Nola North RN) 08 (Given - Provider: Lorrie Sanders ba, RN)1255 (Given - Provider: Lorrie Dockery RN)150 (Given - Provider: Lorrie Dockery RN)181 (Given - Provider: Lorrie Dockery RN) 1 tablet, Oral, 5 TIMES DAILY, First dos e on Sat12/23/20 at 1800, Until Discontinued, Routine cefpodoxime (Vantin) tablet 200 mg (COMPLETED) 823 (G iven - Provider: Vishnu Phelps RN)2038 (Given - Provider: Lorrie Dockery RN) 1045 (Given - Provider: Rebecca Conrad RN) 200 mg, Oral, 2 TIMES DAILY, 6 doses, Fi rst dose on Sat12/23/20 at 2100, Last dose on Sat12/26/20 at 0900, Routine DULoxetine DR (Cymbalta) capsule 30 mg 823 (Given - P rovider: Vishnu Phelps RN)1506 (Given - Provider: Vishnu Phelps RN)2039 (Given - Provider: Lorrie Dockery RN) 1047 (Given - Provider: Avinash Nava)1600 (Given - Provider: Rebecca Conrad RN)2055 (Given - Provider: Nola North RN) 0827 (Given - Provider: Lorrie Dockery RN)150 (Given - Provider: Lorrie Dockery RN) 30 mg, Oral, 3 TIMES DAILY, First dose o n Sat12/23/20 at 2100, Until Discontinued, Routine enoxaparin (Lovenox) (40 mg/0.4 mL) subcutaneous injec tion 40 mg 2038 (Given - Provider: Lorrie Dockery RN) 2056 (Given - Provider: Nola North RN) 40 mg, Subcutaneous, NIGHTLY, First dose on Sat12/25/20 at 2100, Until Discontinued, Routine entacapone (Comtan) tablet 200 mg 0825 (Given - Provid er: Vishnu Phelps RN)1506 (Given - Provider: Vishnu Phelps RN)204 (Given - Provider: Lorrie Dockery RN) 1047 (Given - Provider: Avinash Nava)160 (Given - Provider: Rebecca Conrad RN)2058 (Given - Provider: Nola North RN) 0829 (Given - Provider: Lorrie Dockery RN)150 (Given - Provider: Lorrie Dockery RN) 200 mg, Oral, 3 TIMES DAILY, First dose (after last reorder) on Sat12/23/20 at 2100, Until Discontinued, to bring home supply, Routine glipiZIDE (Glucotrol) tablet 5 mg 0824 (Given - Provid er: Vishnu Phelps RN)1619 (Given - Provider: Marcelle James RN) 1045 (Given - Provider: Rebecca Conrad RN)1600 (Given - Provider: Rebecca Conrad RN) 0827 (Given - Provider: Lorire Dockery RN)1646 (Given - Provider: Lorrie Dockery, JANNETTE) 5 mg, Oral, 2 TIMES DAILY BEFORE MEALS, First dose on Sat12/23/20 at 1730, Until Discontinued, Administer 30 minutes before the meal. Consider holding dose if patient is not eating. , Routine insulin lispro (HumaLOG;Admelog) (100 un it/mL) subcutaneous injection vial 0-8 Units (CANCELED) 0827 (Given - Provider: Vishnu Phelps RN)1224 (Given - Provider: Vishnu Phelps RN) 0-8 Units, Subcutaneous, 3 TIMES DAILY W ITH MEALS, First dose on Sat12/23/20 at 1730, Until Discontinued, MEAL ASSOCIATED Give 1 unit for every 10 grams carbohydrate. Hold if not eating or if BG less than 70., Routine insulin lispro (HumaLOG;Admelog) (100 un it/mL) subcutaneous injection vial 1-3 Units(Linked Group 1) 0730 (Not Given - Provider: Rebecca Conrad RN - Reason: Order parameters not met)1251 (Given - Provider: Rebecca Conrad RN - Comment: pt had late breakfast at 1030)1630 (Not Given - Provider: Rebecca Conrad RN - Reason: Order parameters not met) 0730 (Not Given - Provider: Nola preciado RN - Reason: Order parameters not met)1130 (Not Given - Provider: Lorrie Dockrey RN - Reason: Order parameters not met) 1-3 Units, Subcutaneous, 3 TIMES DAILY B EFORE MEALS, First dose (after last modification) on Sat12/26/20 at 0730, Until Discontinued, CORRECTION BOLUS Sensitive to insulin lean patient or total isiah 1630 (Not Given - Provider: Lorrie Dockery RN - Reason: Order parameters not met) y dose of all insulin needed to achieve glycemic control less than 30 units BG 161 - 200 Give 1 units BG 201 - 240 Give 2 units BG greater than 240, give 3 units and recheck BG in 2 hours. If less than 240 after two hours, give no insulin and resume prior schedule. If BG remains greater than 240, repeat 3 units (no more than three times) & call for new basal insulin orders. DO NOT hold if NPO, unless specifically told to do so., Routine metFORMIN (Glucophage) tablet 1,000 mg 0824 (Given - P rovider: Vishnu Phelps RN)1619 (Given - Provider: Marcelle James RN) 1046 (Given - Provider: Rebecca Conrad RN)1600 (Given - Provider: Rebecca Conrad RN) 0825 (Given - Provider: Lorrie Dockery RN)1646 (Given - Provider: Lorrie Dockery RN) 1,000 mg, Oral, 2 TIMES DAILY WITH MEALS , First dose on Sat12/23/20 at 1730, Until Discontinued, Routine metoprolol succinate XL (Toprol-XL) tablet 100 mg (CAN CELED) 0824 (Given - Provider: Vishnu Phelps RN) 0900 (Not Given - Provider: Rebecca leos RN - Reason: Medication Discontinued) 100 mg, Oral, DAILY, First dose (after l ast modification) on Sat12/25/20 at 0900, Until Discontinued, DO NOT CRUSH OR OPEN Hold for systolic < 100 or pulse < 60, Routine metoprolol succinate XL (Toprol-XL) tablet 50 mg 824 (Given - Provider: Lorrie Dockery RN) 50 mg, Oral, DAILY, First dose (after la st modification) on Sat12/27/20 at 0900, Until Discontinued, DO NOT CRUSH OR OPEN Hold for systolic < 100 or pulse < 60, Routine oxybutynin (Ditropan) tablet 5 mg 2055 (Given - Provider: Nola North RN) 08 (Given - Provider: Lorrie Dockery RN) 5 mg, Oral, 2 TIMES DAILY, First dose on Sat12/26/20 at 2100, Until Discontinued, Routine polyethylene glycoL (Miralax) packet 17 g 1150 (Given - Provider: Vishnu Phelps RN) 1044 (Given - Provider: Rebecca Conrad RN) 0830 (Given - Provider: Lorrie Dockery RN) 17 g, Oral, DAILY, First dose (after las t modification) on Sat12/25/20 at 1000, Until Discontinued, Routine senna (Senokot) tablet 17.2 mg 2039 (Given - Provider: Danna Dockery RN) 2055 (Given - Provider: Nola North RN) 17.2 mg, Oral, NIGHTLY, First dose on 12/25/20 at 2100, Until Discontinued, Routine PRN Medication Order 12/25/2020 12/26/2020 12/27/2020 acetaminophen (Tylenol) tablet 1,000 mg 1,000 mg, Oral, EVERY 6 HOURS PRN, Start ing on Sat12/23/20 at 1640, Until Sat12/27/20 at 2036, Pain, Fever, Maximum dose of acetaminophen is 4000 mg from all sources in 24 hours. When ordered for pain, acetaminophen should be given even when other ordered pain medications are indicated. , Routine bisacodyL (Dulcolax) suppository 10 mg 1508 (Given - Provider: Lorrie Dockery RN) 10 mg, Rectal, DAILY PRN, Starting on 12/25/20 at 0902, Until Sat12/27/20 at 2035, Constipation, Routine dextrose 50% intravenous solution 25-50 mL(Linked Group 2) 25-50 mL (12.5-25 g), Intravenous, EVERY 1 HOUR PRN, Starting on Sat12/23/20 at 1640, Until Sat12/27/20 at 2035, Low blood sugar, For BG 50-70: 120 mL Juice or Regular (not diet) soda OR 12.5 gram (25 mL) Dextrose 50% IV OR, if no IV access , 1 mg Glucagon IM. Recheck BG in 30 minutes. May repeat juice, dextrose or glucagon once per episode For BG less than 50: 240 mL Juice or Regular (not diet) soda OR 25 grams (50 mL) Dextrose 50% IV OR, if no IV access, 1 mg Glucagon IM. Recheck BG in 30 minutes. May repeat juice, dextrose, or glucagon once per episode. To avoid extravasation, push Dextr ose 50% SLOWLY (3 mL over 1 minute) in a patent, running IV, preferably a central line. For persistent hypoglycemia, consider longer-acting treatment for the duration of the active insulin., Routine glucagon (Human Recombinant) injection 1 mg(Linked Group 2) 1 mg, Intramuscular, EVERY 1 HOUR PRN, S tarting on Sat12/23/20 at 1640, Until Sat12/27/20 at 2035, Low Blood Sugar, For BG 50-70: 120 mL Juice or Regular (not diet) soda OR 12.5 gram (25 mL) Dextrose 50% IV OR, if no IV access, 1 mg Glucago n IM. Recheck BG in 30 minutes. May repeat juice, dextrose or glucagon once per episode For BG less than 50: 240 mL Juice or Regular (not diet) soda OR 25 gra ms (50 mL) Dextrose 50% IV OR, if no IV access, 1 mg Glucagon IM. Recheck BG in 30 minutes. May repeat juice, dextrose, or glucagon once per episode. To avoid extravasation, push Dextrose 50% SLOWLY (3 mL over 1 minute) in a patent, runni ng IV, preferably a central line. For persistent hypoglycemia, consider longer-acting treatment for the duration of the active insulin., Routine glucose (GLUTOSE) 40% oral geL(Linked Group 2) 15-30 g, Buccal, EVERY 1 HOUR PRN, Start ing on Sat12/23/20 at 1640, Until Sat12/27/20 at 2035, Low blood sugar, For BG 50-70 mg/dL: 120 mL Juice or Regular (not diet) soda OR 15 gram glucose 40% oral gel OR 12.5 gram (15 mL) Dextrose 50% I V OR, if no IV access, 1 mg Glucagon IM. Recheck BG in 30 minutes. May repeat juice, gel, dextrose or glucagon once per episode For BG less than 50 mg/dL: 240 ml Juice or Regualr (not diet) soda OR 30 gram glucose 40% oral gel OR 25 gram (50 mL) Dextrose 50% IV OR, if no IV access, 1 mg Glucagon IM Recheck BG in 30 minutes. May repeat juice, gel, dextrose or glucagon once per episode. To avoid extravasation, push Dextrose 50% SLOWLY (3 mL over 1 minute) in a patent, running IV, preferably a central line For persistent hypoglycemia, consider longer-a cting treatment for the duration of the active insulin 1 tube contains 15 grams of glucose (net weight of tube = 37.5 grams., Routine melatonin tablet 6 mg 210 (Given - Provider: Baer RN) 6 mg, Oral, NIGHTLY PRN, Starting on Sat12/23/20 at 1640, Until Sat12/27/20 at 2035, insomnia, Routine Linked Groups Order Group 1: POCT Fingerstick Glucose (CANCELED) Routine, 4 TIMES DAILY BEFORE MEALS & AT BEDTIME, First occurrence on 12/25/20 at 1700, Until Specified
Consider choosing FOUR TIMES A DAY BEFORE MEALS AND AT BEDTIME as frequency fo r: Patients who have good hypoglycemia a wareness: -Patients who are eating meals during the day and sleeping at night -Patient who are otherwise stable And insulin lispro (HumaLOG;Admelog) (100 unit/mL) subcutaneous injection vial 1-3 UnitsJump to med 1-3 Units, Subcutaneous, 3 TIMES DAILY B EFORE MEALS, First dose (after last modification) on Sat12/26/20 at 0730, Until Discontinued
CORRECTION BOLUS Sensitive to insulin &nbsp ;lean patient or total daily dose of all insulin needed to achieve glycemic control less than 30 units BG 161 - 200 Give 1 units &n bsp;BG 201 - 240 Give 2 units BG greater than 240, give 3 units and recheck BG in 2 hours. If less than 240 after two hours, give no insulin and resume pr ior schedule. If BG remains greater than 240, repeat 3 units (no more than three times) & call for new basal insulin orders. DO NOT hold if NPO, unless specifically told to do so.
Routine Group 2: glucose (GLUTOSE) 40% oral geLJump to med 15-30 g, Buccal, EVERY 1 HOUR PRN, Start ing on Sat12/23/20 at 1640, Until Sat12/27/20 at 2036, Low blood sugar
For BG 50-70 mg/dL: 120 mL Juice or Regular (not diet) soda OR 15 gram glucose 40% oral gel OR 12.5 gram (15 mL) Dextro se 50% IV OR, if no IV access, 1 mg Glucagon IM. Recheck BG in 30 minutes. May repeat juice, gel, dextrose or glucagon once per episode For BG less than 50 mg /dL: 240 ml Juice or Regualr (not diet) soda OR 30 gram glucose 40% oral gel OR 25 gram (50 mL) Dextrose 50% IV OR, if no IV access, 1 mg Glucagon IM Recheck BG in 30 minutes. May repeat juice, gel, d extrose or glucagon once per episode. To avoid extravasation, push Dextrose 50% SLOWLY (3 mL over 1 minute) in a patent, running IV, preferably a central line For persistent hypoglycemia, consider longer-acting treatment for the duration of the active insulin 1 tube contains 15 grams of glucose (net weight of tube = 37.5 grams.
Routine Or dextrose 50% intravenous solution 25-50 mLJump to med 25-50 mL (12.5-25 g), Intravenous, EVERY 1 HOUR PRN, Starting on Sat12/23/20 at 1640, Until Sat12/27/20 at 2035, Low blood sugar
For BG 50- 70: 120 mL Juice or Regular (not diet) soda OR 12.5 gram (25 mL) Dextrose 50% IV OR, if no IV access, 1 mg Glucagon IM. Recheck BG in 30 minutes. May repeat juice, dextrose or glucagon once per e pisode For BG less than 50: 240 m L Juice or Regular (not diet) soda OR 25 grams (50 mL) Dextrose 50% IV OR, if no IV access, 1 mg Glucagon IM. Recheck BG in 30 minutes. &a mp;nbsp;May repeat juice, dextrose, or g lucagon once per episode. To avoid extravasation, push Dextrose 50% SLOWLY (3 mL over 1 minute) in a patent, running IV, preferably a central line.&amp ;nbsp;For persistent hypoglycemia, con loss prevention leader longer-acting treatment for the duration of the active insulin.
Routine Or glucagon (Human Recombinant) injection 1 mgJump to med 1 mg, Intramuscular, EVERY 1 HOUR PRN, S tarting on Sat12/23/20 at 1640, Until Sat12/27/20 at 2035, Low Blood Sugar
For BG 50-70: 120 mL Juice or Regular (not diet) soda OR 12.5 gram (25 mL) Dextrose 50% IV OR, if no IV access, 1 mg Glucagon IM. Recheck BG in 30 minutes. May repeat juice, dextrose or glucagon once per episode&nbs p;For BG less than 50: 240 mL Juice or Regular (not diet) soda OR 25 grams (50 mL) Dextrose 50% IV OR, if no IV access, 1 mg Glucagon IM. Recheck BG in 30 minutes. May re peat juice, dextrose, or glucagon once p er episode. To avoid extravasation, push Dextrose 50% SLOWLY (3 mL over 1 minute) in a patent, running IV, preferably a central line. For pe rsistent hypoglycemia, consider longer-a cting treatment for the duration of the active insulin.
Routine documented in this encounter Care Teams Supervisor [employer]ating [employer] Relationship Specialty Start Date End Date Griselda Stanley MD PCP - General 07/04/10 02/03/22 documented as of this encounter
--- OUTSIDE RECORDS SUMMARY | 2022-02-26 04:00 | XMS_ITS | Encounter Summary ---
:1955 Author Organization [facility] [place] [address] Care Team Providers Name Role Phone Griselda Stanley MD Primary Care Provider Encounter Details Date Type Department Care Team Description 12/20/2019 Telephone Neurology at [facility] Eloisa Stone MD [facility] [place] [address] NEUROLOGY DEPT [phone] [place] [id number] (Wo rk) Social History Tobacco Use Types [...] this encounter Miscellaneous Notes Telephone Encounter - Eloisa Stone MD - 12/20/2019 10:21 AM EDT Admitted to [facility]. Call from Dr. Preet Landon. 64 yo M w/ Parkinson's disease, s/p DBS, diabetes, hypertension, hyperlipidemia, sensory neuropathy.Admitted yesterday for work up of fever of unknown origin. He apparently had a fever for four days, along with general lethargy, malaise. They diagnosed him w a UTI (5 cells/HPF), but cx came back w/ mixed growth. Upon admission, he was able to answer questions, but has some baseline level of cognitive impairment. In the past 12-18 hours, he's become more febrile, his mental status has deteriorated, he is actively hallucinating. He's moving around too much, so Dr Leija has not been able to obtain a headCT or an LP. He says that he cannot tell if the patient is having seizures or rigors, because these happen periodically, are brief, and they cannot get him to follow commands because he is too altered.He says that the patient will shake all four extremities and become stiff with each episode, they are brief and stereotypical. I would say it is very hard to say that this gentleman is having seizures, rigors, or just altered mental status in the setting of an unclear infection, as if very often the case w/ patients w/ any type of neurological disorder. He certainly needs a thorough work up of infection, including blood cultures, CXRAY, CSF studies. We would be happy to see him and obtain an EEG if he does come here, but suspect that at first, he may be more appropriate for medicine. The calling clinician wonders if the patient needs to be intubated for the studies, I will defer to his clinical judgement. N.B. Since we have not evaluated this patient, this is not an official consultation and we are not stating that a specific treatment decision is correct or incorrect. Eloisa Stone MD Staff Neurologist documented in this encounter Plan of Treatment Upcoming Encounters Date Type Specialty Care Team Description 03/20/2022 Office Visit Neurology Vishnu Hooper MD [facility] NE[facility] DEPT. [place], [place] [address] (Wo rk) documented as of this encounter Visit Diagnoses Not on filedocumented in this encounter Care Teams Ship Purser Relationship Specialty Start Date End Date Griselda Stanley MD PCP - General 07/04/10 02/03/22 documented as of this encounter
--- OUTSIDE RECORDS SUMMARY | 2022-02-26 04:00 | XMS_ITS | Encounter Summary ---
:1955 Author Organization [facility] [place] [address] Care Team Providers Name Role Phone Griselda Stanley MD Primary Care Provider Encounter Details Date Type Department Care Team Description 12/20/2019 [place] [address] Social History Tobacco Use Types Packs/Day [...] on file documented as of this encounter Medications at Time of Discharge Medication Sig Dispensed Refills Start Date End Date polyethylene glycol Take 17 g by mouth 14 each 0 12/30/19 20 (Miralax) 17 gram Powder in daily as needed. Packet atorvastatin (Lipitor) 10 Take 1 tablet by 90 tablet 3 12/11 mg Tablet mouth every evening. glipiZIDE (Glucotrol) 5 mg Take 5 mg by mouth 0 Tablet daily. entacapone (Comtan) 200 mg Take 1 tablet by 90 tablet 5 Tablet mouth 3 times daily. Take with each dose of carbidopa-levodopa . Aware of previous intolerance because nausea acetaminophen (TYLENOL) 500 Take 1,000 mg by 0 mg Tablet mouth every 6 hours as needed for Pain. cholecalciferol, Vitamin Take 1,000 Units 0 D3, 1,000 unit Tablet by mouth daily. omeprazole (PRILOSEC) 40 mg Take 40 mg by 0 04/02 Capsule, Delayed mouth daily as Release(E.C.) needed. 1 capsule three times weekly dilTIAZem XR (Dilacor XR) Take 1 capsule by 0 12/27/2020 240 mg Capsule,Degradable mouth daily. Cnt Release apixaban (Eliquis) 5 mg Take 1 tablet by 0 201912/30/2019 Tablet mouth 2 times daily. metoprolol succinate XL Take 3 tablets by 30 tablet 12 12/2912/27/2020 (Toprol-XL) 50 mg Tablet mouth daily. Sustained Release 24 hr atorvastatin (Lipitor) 10 Take 1 tablet by 90 tablet 3 05/12/30/2019 mg Tablet mouth every evening. apixaban (Eliquis) 5 mg Take 1 tablet by 14 tablet 0 201909/02/2020 Tablet mouth 2 times daily. methylphenidate HCl Take 1 tablet by 60 tablet 0 12/11/2019 12/30/2019 (RITALIN) 10 mg mouth 2 times TabletIndications: Fatigue, daily. unspecified type mirabegron 25 mg Tablet Take 25 mg by 0 12/30/2020 Sustained Release 24 hr mouth daily. DULoxetine (CYMBALTA) 30 mg Take 60 mg by 0 12/30/2020 Capsule, Delayed mouth 2 times Release(E.C.) daily. hydroCHLOROthiazide Take 25 mg by 0 05/20/2018 (HYDRODIURIL) 25 mg Tablet mouth daily. melatonin 3 mg Tablet Take 6 mg by mouth 0 12/30/2020 nightly as needed. lisinopril Take 1 tablet by 0 08/31/2015 12/30/19 20 (PRINIVIL;ZESTRIL) 40 mg mouth daily. Tablet simvastatin (ZOCOR) 20 mg Take 20 mg by 0 12/30/2019 tablet mouth nightly. carbidopa-levodopa Take 1 tablet by 0 08/23/2020 (SINEMET) 25-250 mg per mouth 4 times tablet daily. metFORMIN (GLUCOPHAGE) 500 Take 1,000 mg by 0 12/30/2020 mg tablet mouth 2 times daily (with meals). metoprolol (LOPRESSOR) 100 Take 100 mg by 0 12/30/2019 mg tablet mouth 2 times daily. documented as of this encounter Plan of Treatment Upcoming Encounters Date Type Specialty Care Team Description 03/20/2022 Office Visit Neurology Vishnu Hooper MD [facility] NE[facility] DE[facility]. [place], [place] [address] (Wo rk) documented as of this encounter Visit Diagnoses Not on filedocumented in this encounter Care Teams Inspector Tool Relationship Specialty Start Date End Date Griselda Stanley MD PCP - General 07/04/10 02/03/22 documented as of this encounter
--- OUTSIDE RECORDS SUMMARY | 2022-02-26 04:00 | XMS_ITS | Encounter Summary ---
:1955 Author Organization [facility] [place] [address] Care Team Providers Name Role Phone Griselda Stanley MD Primary Care Provider Reason for Visit Auth/Cert Specialty Diagnoses / Procedures Referred By Contact Refer red To Contact Diagnoses Altered mental status sepsis Referral ID Status Reason Start Date Expiration Date Visits Requ ested Visits Authorized [id number] 1 1 Encounter Details Date Type Department Care Team Description 12/20/2019 - Hospital Encounter 1 Wiley [place] [address] Tachycardia; 12/30/2019 [facility] Remi [place] [address] Atrial fibrillation, unspecified type [facility] Kavon Celaya MD [facility] [place] [address] [facility] Magali Jo MD [facility] [place] [address] Magali Wesley [place] [address] RICKY Freeman [phone] Social History Tobacco Use Types Packs/Day Years [...] place to sleep or slept in a fci (including now)? Sex Assigned at Date Recorded Not on file documented as of this encounter Last Filed Vital Signs Vital Sign Reading Time Taken Comments Blood Pressure 126/69 12/30/2019 11:25 AM EDT Pulse 61 12/30/2019 7:33 AM EDT Temperature 36.8 ??C (98.2 ??F) 12/30/2019 11:25 AM EDT Respiratory Rate 18 12/30/2019 11:25 AM EDT Oxygen Saturation 94% 12/30/2019 2:13 AM EDT Inhaled Oxygen Concentration - - Weight 105.3 kg (232 lb 2.3 oz) 12/25/2019 4:00 AM EDT Height 180.3 cm (5' 10.98) 12/20/2019 7:57 PM EDT Body Mass Index 32.39 12/21/2019 8:45 PM EDT documented in this encounter Discharge Summaries Magali Lopez MD - 12/30/2019 10:53 AM EDT Discharge Summary Patient Name: Timbo Su Patient Age: 64 y.o. Language: Nigerian Race: White Ethnicity: Not nor Admit date: 12/20/2019 Discharge date and time: 12/30/2019 Attending Physician: Magali Lopez MD Discharge Physician: Britta Junior MD (Resident) ID: Timbo Su is a 64 y/o man with advanced Parkinson's disease s/p DBS, HTN, DM and hyperlipidemia who was admitted to [facility] 3 days ago with worsening hallucinations and encephalopathy, worsening tremor, and fevers of unknown origin, with course complicated by atrial fibrillation w/ RVR. Follow-up Recommendations for Providers: - Team discussed patient's high stroke and bleeding risk with cardiology curbside during admission and they recommended even with rhythm control patient would require continued anticoagulation. Insteadthey recommended outpatient consideration for Watchman procedure to decrease stroke and bleeding risk. - Please make sure patient has Neurology follow-up for Parkinson's Disease and Deep Brain Stimulatormanagement - If he becomes more rigid, increase Sinemet to 1 tab 5x/day - If he has dizziness, orthostatic hypotension, nausea, dyskinesias or hallucinations, reduce Sinemet to 1 tab TID - Though defer all changes to Parkinsonian medications to [facility] Neurologist - Consider adding back home lisinopril of 40 mg daily and HCTZ 25 mg daily when appropriate - Continue home glipizide 5 mg BID and home metformin 1,000 mg BID - Switched home simvastatin to atorvastatin; as diltiazem increases levels of simvastatin increasingrisk of adverse effects - Patient was placed on methylphenidate prior to admission though never actually started the medication; would follow-up on whether this is necessary to initiate Discharge Diagnoses (Hospital Problems) and Secondary Diagnoses (Chronic Problems): Active Hospital Problems Diagnosis ??? Dysphagia ??? Atrial fibrillation ??? Viral meningitis ??? Parkinson's disease Resolved Hospital Problems Diagnosis Date Resolved ??? Altered mental status 12/27/2019 Active Non-Hospital Problems Diagnosis ??? S/P deep brain stimulator placement ??? Mixed anxiety and depressive disorder ??? Sensory ataxia ??? Diabetic polyneuropathy ??? Orthostatic hypotension ??? Hypertension ??? Hyperlipidemia ??? Diabetes mellitus With mild sensory polyneuropathy ??? Carpal tunnel syndrome, bilateral ??? Sciatica of left side ??? Abnormal LFTs (liver function tests) ??? Cholelithiasis ??? REM behavioral disorder ??? Ankle fracture, left ??? Fatigue History of Presentation (per 12/20/2019 ICU transfer note) [facility] OSH diagnosed him with a suspected UTI, although cultures returned with mixed growth. He received vancomycin and zosyn at the OSH. Neurology was contacted at they advised CT head and aLumbar Puncture. Unfortunately, they were unable to obtain either, due to persistent movement. Per [facility], he shakes all four extremities and becomes stiff with each episode, they were briefand stereotypical. He was transferred to [facility] for further Neurologic and infectious workup. ?? Per the family, over the past 3 weeks he had worsening balance, dizziness, occasional hallucinations, and increased fatigue and lethargy. Moreover, 1 week ago, his symptoms worsened with an additional fall through wood paneling in his home and developed rib fractures and 2 vertebrae. ?? He has a history of suicide attempts, with the most recent being in August 2019 when he tried to overdose on sinemet. ?? On arrival at [facility], Mr. Su was febrile, tachycardic with rates in bed658b, demonstrating atrial fibrillation with RVR, and obtunded. He was initially admitted to hospital medicine. He was given IV metoprolol and magnesium, which returned him to Sinus Rhythm. Neurology was consulted and noted tremors and rigidity secondary to NMS from Sinemet withdrawal vs. ORTHOPEDIC SURGEON infection vs. Serotonin Syndrome werementioned. He was loaded with Keppra at the OSH. His sinemet dose was held a the OSH, but was givne on the first 2 days of admission 12/17, 12/18. ?? Critical care was consulted, and he was transferred to the ICU given worsening neurologic status andneed for intubation for airway protection. ?? Hospital Course: Timbo Su was admitted to the Critical Care Medicine Service on 12/20/2019. He was subsequently transferred to the hospital medicine service on 12/24 for what was possibly a presentation of severe sepsis secondary to viral infection. #Acute encephalopathy, resolved #Fevers of unknown etiology, resolved #Pancytopenia of uncertain etiology, resolved On arrival to the MICU, patient was not following commands, extremely tremulous and febrile up to 102.7F. Neurology was engaged on transfer, and concern for meningitis/encephalitis. Given his acute encephalopathy, and concern for aspiration, patient was intubated for airway protection on transfer. Also on differential was NMS and serotonin syndrome, as well as sinemet withdrawal. Patient has history of 2 prior suicide attempts, however per his meds have been well controlled and this became lessa concern the further out without improvement and despite being started on home sinemet. Patient was started on empiric CTX, ampicillin (for listeria coverage), acyclovir, and vancomycin onday of transfer and extensive infectious work up was obtained as follows. CSF was clear, with only 7nucleated cells (85% lymph) with elevated protein 108, and glucose 94. No fungal / bacterial growth,negative for HSV1/2, Cryptococcal Ag, Enterovirus, and VZV. Lyme was negative and acute tick borne panel neg for borrelia miyamotoi, babesia, ehrlichia, anaplasma. A brain MRI was recommended by by Neurology as well, however patient was intermittently febrile, and per MRI safety, his DBS + fevers are not compatible with MRI (electrical engineering draftsperson warning), and thus MRI was held off. Antibiotics were stopped as bacterial / tick-borne illnesses turned out to be negative. Acyclovir was continued until 12/23 whenpatient showed signs of clinical improvement, as MRI was not able to be obtained to definitively rule out meningitis/encephalitis. Patient continued to spike fevers and fever work-up was expanded to include any hematological malignancy or other inflammatory process - especially given his age and pancytopenia. His ESR/CRP were elevated (50, 59.1), LDH 345, immunolgobulins showed mildly elevated IgA 482 only, peripheral smear was ov erall stable and pancytopenia resolved with clinical improvement without explanation for his fevers (report below). By 12/23, patient was arousable by voice and following commands while intubated. He passed SBT and was extubated on 12/23, and transferred to hospital medicine on 12/24. Acyclovir was discontinued on 12/23and fevers resolved on 12/24. Ultimately the etiology of his fevers was not definitively identified. # Paroxysmal Afib w RVR Patient has a history of afib per his . On arrival he was in afib with RVR, rates in the 140s - 150s. He was given multiple IV metop pushes and started on oral metop, and subsequently started on diltiazem drip to control his rates. He was started on therapeutic lovenox and family informed about risks of bleeding, however no final decision regarding outpatient AC was made. Ultimately rate control was achieved with oral metoprolol and diltiazem. #Parkinson's Disease w/ DBS device - Home Sinemet 25-250 mg QID and Entacapone 200 mg TID were continued. # Overactive bladder Due to mirabegron being nonformulary, team discussed and began alternative of oxybutynin with patient for urinary incontinence likely secondary to overactive bladder. #Type II Diabetes Glucose while admitted was controlled with sliding scale insulin. Home metformin and glipizide were held on admisison. #HTN Home lisinopril and hydrochlorothiazide were held and patient remained normotensive. Procedures: Operations: Procedure(s): LUMBAR PUNCTURE, DX (WRVU 1.37) Important Studies and Lab Data: DISCHARGE BASIC LABS: Recent Labs 12/27/19 0353 12/26/19 0346 12/25/19 0116 WBC 4.8 4.4 4.1 HGB 8.9* 8.4* 9.1* HCT 29.2* 27.1* 27.7* PLATELET 172 154 141* Recent Labs 12/29/19 0934 12/27/19 0353 12/26/19 0346 12/25/19 0116 NA 139 139 139 139 K 3.9 4.1 4.4 3.8 CL 104 104 106 106 CO2 25 Not Perf 26 23 BUN 8* 9* 11 10 CREATININE 0.75* 0.73* 0.79* 0.61* MAGNESIUM -- 0.79 0.85 0.77 PHOS -- 3.7 3.4 2.8 Recent Labs 12/29/19 0934 12/26/19 0346 12/24/19 0608 BILITOT 0.6 0.6 0.7 BILIDIR -- 0.2 0.5* AST 60* 79* 76* ALT 43 24 60* ALKPHOS 117 129 140* No results for input(s): INR, PTT in the last 168 hours. OTHER [facility] LABS: Peripheral Smear 12/24/19: DISCUSSION The patient's history of critical illness is noted and likely contributory to the hemogram findings.Bleeding should be investigated given the degree of polychromasia seen. Reticulated hemoglobin (RET-HE test offered under reticulocyte count) is a more sensitive indicator of current iron stores availab le for hemoglobin synthesis and can be ordered if clinically indicated. No schistocytes are apparenton this periperhal smear, however if there is clinical concern for hemolysis, correlation with additional laboratory testing is recommended; LDH, bilirubin, reticulocyte count, haptoglobin, DIC screen,and direct antiglobulin testing may provide a more definitive evaluation. The reported history of thrombocytopenia is noted, however??that abnormality appears to have essentially resolved itself at thetime of this study. ?? CSF Cytology: DISCUSSION Cerebrospinal fluid, lumbar: predominantly lymphocytes histiocytes; likely reactive.??Should lymphoma be a clinical consideration, suggest LLS (lymphoma leukemia screen) studies.??LLS study is optimal for evaluation of abnormal lymphocytic infiltrates and blasts in fluid specimens. Microbiology: BCx (12/23): NGTD COVID-19??(12/19):??negative BCx??(12/19):??NGTD CMV IgM ??(12/19): negative HIV 1/2 Ab and Ag (12/23): negative CSF (12/20): - Negative Cryptococcal Antigen - Negative Fungal Culture - Negative HSV-1 and HSV-2 PCR - Negative Enterovirus PCR - Negative VZV Tick Borne Panel (12/20): negative Pertinent radiology/diagnostic studies: CT Head 12/21/19: IMPRESSION Question bioccipital hypoattenuation (particularly on the LEFT), difficult to assess given extensivestreak artifact although appears slightly more conspicuous compared to prior CT 12/20/2019; pathology in this region cannot be excluded. No acute intracranial hemorrhage or mass effect identified. ?? ECHO 12/21/19: SUMMARY: 1. Rhythm: AF with RVR. 2. The left ventricular chamber size is normal. ??Mild concentric left ventricular hypertrophy is observed. ??Basal septal hypertrophy is observed (2 cm). ??Global left ventricular systolic function appears hyperdynamic. ??Ejection fraction is estimated to be 75%. ??There are no left ventricular segmental wall motion abnormalities. 3. The right ventricle is normal in size. ??Right ventricular global systolic function is normal. ??Pulmonary artery hypertension could not be assessed due to inadequate tricuspid regurgitation jet. 4. There is no hemodynamically significant valve disease. 5. There is mild dilatation of the aortic root (4.1 cm). 6. See remainder of report for additional findings. ?? Discharge Conditions/Prognosis: Upon discharge the pt is hemodynamically stable, afebrile, fully ambulatory without requiring supplemental oxygen, holding down food/drink, and pain free. Vital Signs: Last value Range last 24 hrs Temperature Temp: 36.8 ??C (98.2 ??F) Temp: [36.7 ??C (98.1 ??F)-36.9 ??C (98.4 ??F)] Heart Rate Heart Rate: 61 Heart Rate: [61-79] Blood Pressure BP: 131/72 BP: (104-138)/(56-84) Respiratory Rate Resp: 18 Resp: [18-21] SpO2 SpO2: 94 % SpO2: [94 %-99 %] Exam: Constitutional: Oriented to person, place, and time. NAD HENT: Normocephalic, atraumatic, moist mucous membranes Cardiovascular: Normal rate, regular rhythm, normal heart sounds and intact distal pulses. Pulmonary/Chest: Effort normal and breath sounds normal. No respiratory distress. No wheezes or rale. Abdominal: Soft. BSx4, NTND Neurological: masked facies and resting tremor at baseline, cogwheel rigidity present Skin: Skin is warm and dry. No rash noted. No erythema. Psychiatric: Normal mood. Discharge to: [facility] Discharge Medications: Your Medications New Medications Dose Details apixaban 5 mg Tab Commonly known as: Eliquis Take 1 tablet by mouth 2 times daily. 5 mg Quantity: 14 tablet Refills: 0 atorvastatin 10 mg Tab Commonly known as: Lipitor Take 1 tablet by mouth every evening. 10 mg Quantity: 90 tablet Refills: 3 dilTIAZem XR 240 mg Cdcr Commonly known as: Dilacor XR Take 1 capsule by mouth daily. 240 mg Refills: 0 metoprolol succinate XL 50 mg Tablet sr Commonly known as: Toprol-XL Take 3 tablets by mouth daily. 150 mg Quantity: 30 tablet Refills: 12 polyethylene glycol 17 gram Pwpk Commonly known as: Miralax Take 17 g by mouth daily as needed. 17 g Quantity: 14 each Refills: 0 Continued medications, unchanged Dose Details acetaminophen 500 mg Tab Commonly known as: Tylenol Take 1,000 mg by mouth every 6 hours as needed for Pain. 1,000 mg Refills: 0 carbidopa-levodopa 25-250 mg Tab Commonly known as: Sinemet Take 1 tablet by mouth 4 times daily. 1 tablet Refills: 0 cholecalciferol (Vitamin D3) 1,000 unit Tab Commonly [...] 200 mg Quantity: 90 tablet Refills: 5 glipiZIDE 5 mg Tab Commonly known as: [...] daily as needed. 40 mg Refills: 0 STOPPED Medications hydroCHLOROthiazide 25 mg Tab Commonly known as: Hydrodiuril lisinopriL 40 mg Tab Commonly known as: Prinivil;Zestril methylphenidate HCl 10 mg Tab Commonly known as: RITALIN metoprolol 100 mg Tab Commonly known as: LOPRESSOR simvastatin 20 mg Tab Commonly known as: Zocor Updated Allergies/ADRs: No Active Allergies Instructions Given to Patient at Discharge: There are no outpatient Patient Instructions on file for this admission. General Instructions None Provider Contact Information: Griselda tSanley MD [address] [place], [place] [id number] Discharge References/Attachments: Discharge References/Attachments None documented in this encounter Medications at Time [...] needed. 1 Release(E.C.) capsule three times weekly dilTIAZem XR (Dilacor Take 1 capsule by 0 12/29/ 020 12/27/2020 XR) 240 mg mouth daily. Capsule,Degradable Cnt Release metoprolol succinate XL Take 3 tablets by 30 tablet 12 12/2912/27/2020 (Toprol-XL) 50 mg Tablet mouth daily. Sustained Release 24 hr apixaban (Eliquis) 5 mg Take 1 tablet by 14 tablet 0 201909/02/2020 Tablet mouth 2 times daily. mirabegron 25 mg Tablet Take 25 mg by mouth 0 12/30/2020 Sustained Release 24 hr daily. DULoxetine (CYMBALTA) 30 Take 60 mg by mouth 2 0 12/30/2020 mg Capsule, Delayed times daily. Release(E.C.) melatonin 3 mg Tablet Take 6 mg by mouth 0 12/30/2020 nightly as needed. carbidopa-levodopa Take 1 tablet by 0 08/23/2020 (SINEMET) 25-250 mg per mouth 4 times daily. tablet metFORMIN (GLUCOPHAGE) Take 1,000 mg by 0 12/30/2020 500 mg tablet mouth 2 times daily (with meals). documented as of this encounter Progress Notes Mary Barboza RN - 12/30/2019 12:46 PM EDT Timbo was here for tx of encephalopathy, fevers, and worsening tremors complicated by afib w/ RVR. His cardiac arrhythmia has been managed with scheduled metoprolol and diltiazem and has transitioned to NSR. He is AxO, VSS, and afebrile. Patient was accepted for rehab bed at [facility]. 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 Al lines/ drains were removed from patient. Patient was accepting and aware of transfer, (DPOA) was called and updated on the patient'sstatus. All questions/ concerns addressed. Patient was picked up by [facility] ambulance around 12:15. Report called to [facility] to JANNETTE Hawkins from Med/Surg. Michelle Rojas RN - 12/30/2019 11:17 AM EDT [facility] ambulance 11:45am for transport to [facility] from [facility]. RN aware. Dolores Rojas RNCM Pager: [phone] Chichi Clark - 12/30/2019 10:06 AM EDT Office of Care Management/Retail Loss Prevention Investigator Patient Name: Timbo Su : 1955 Patient has been offered a swing bed at [facility] arranged for a 1145 transport. Ambulance will need: Medicare ambulance form completed and signed (MD or Machine Heel Seat Laster RN/SIGN CARPENTER) Copy of patient demographics [place] Out of Hospital DNR/DNI order, if active No MD to MD report necessary Please call Nursing Report to ask for charge master coordinator (med surg unit). Info to accompany patient: Narcotic Prescriptions Copies of Medication Administration Records and IV sheets for past 10 days. Plan: Retail Loss Prevention Investigator will be available to the patient and Machine Heel Seat Laster-RN and/or Baking Assistant for further assistance. Patient will be discharged to: [address] [place] [id number] Chichi Clark Retail Loss Prevention Investigator Michelle Rojas RN - 12/30/2019 9:40 AM EDT Bed offer for [facility]. Serology Technician phoned , Arlyn, who provides primary care for her , and instructional writer spoke to patientMarcell, who both accept bed at [facility]. Discharge planned via ambulance at 11:00am from [facility] room [address]A to [facility], [address] [place] [address]. poison information specialist, please schedule ambulance transport as requested. Patient is COVID 19 -. Ambulance transportation is medically necessary at discharge related to Parkinsons and weakness. I have discussed Medicare/Private Insurance reimbursement guidelines for ambulance transport. Patient, Marcell, and , Arlyn, verbalize understanding of their potential financial obligation and agree with ambulance transport. An Important Message From Medicare about Your Rights letter was reviewed with pt via telephone, and , Arlyn, pt and acknowledged and was provided copy. RN please call report to [phone]. Dolores Rojas RN Pager: [phone] Huey Carty - 12/30/2019 8:51 AM EDT HOSPITAL MEDICINE PROGRESS NOTE Date: 12/30/19 Patient Information Name: Timbo Su : 1955 PCP: Griselda Stanley MD PCP Admit Date: 12/20/2019 ID: Timbo Su is a 64 y.o. male with a pmhx of Parkinson's Disease s/p DBS, DM-II, HTN, HLD, sensory neuropathy, previous suicide attempt with Sinemet (reported in Neurology telephone encounter from 08/23/19)?who presented as a transfer from [facility] following 4 days of AMS, worsening tremor, fever, general lethargy, and malaise. The OSH??diagnosed him with a suspected UTI, though cultures returned w/ mixed growth. He received vancomycin and zosyn at the OSH; though given his worsening AMS, persistent fevers, tremors, ?myoclonos, he was transferred to the [facility] MICU for further management. Patient was briefly on hospital medicine and then transfered to the MICU and intubated as he was unable to protect his airway. He was empirically treated for meningitis, though etiology of his presentation remains unclear despite improvement to near baseline. ?? Active Problems: Parkinson's disease Atrial fibrillation Dysphagia Viral meningitis SUBJECTIVE/24H EVENTS - No acute events overnight; VSS on RA - Tolerated addition of low-dose oxybutynin for urinary incontinence; will take time to work - Resting comfortably in bed this AM; denies fevers, chills, CP, SOB, abdominal pain - Awaiting rehabilitation or intermediate facility placement with active referrals in process Medications: Reviewed in eDH OBJECTIVE Last value Range last 24 hrs Temperature Temp: 36.8 ??C (98.2 ??F) Temp: [36.7 ??C (98.1 ??F)-36.9 ??C (98.4 ??F)] Heart Rate Heart Rate: 61 Heart Rate: [61-79] Blood Pressure BP: 131/72 BP: (104-138)/(56-84) Respiratory Rate Resp: 18 Resp: [18-21] SpO2 SpO2: 94 % SpO2: [94 %-99 %] Intake/Output Summary (Last 24 hours) at 12/30/2019 0851 Last data filed at 12/30/2019 0623 Gross per 24 hour Intake 600 ml Output 500 ml Net 100 ml Patient Vitals for the past 168 hrs: Weight 12/25/19 0400 105.3 kg (232 lb 2.3 oz) 12/24/19 0000 108.9 kg (240 lb 1.3 oz) Admit wt: 103 kg Physical Exam: Constitutional: Oriented to person, place, and time. NAD HENT: Normocephalic, atraumatic, moist mucous membranes Cardiovascular: Normal rate, regular rhythm, normal heart sounds and intact distal pulses. Pulmonary/Chest: Effort normal and breath sounds normal. No respiratory distress. No wheezes or rale. Abdominal: Soft. BSx4, NTND Neurological: masked facies and resting tremor at baseline, cogwheel rigidity present Skin: Skin is warm and dry. No rash noted. No erythema. Psychiatric: Normal mood. LABS: Last 3 wbc, hgb, hct plt Recent Labs 12/27/19 0353 12/26/19 0346 12/25/19 0116 WBC 4.8 4.4 4.1 HGB 8.9* 8.4* 9.1* HCT 29.2* 27.1* 27.7* PLATELET 172 154 141* Last 3 Lytes Recent Labs 12/29/19 0934 12/27/19 0353 12/26/19 0346 NA 139 139 139 K 3.9 4.1 4.4 CL 104 104 106 CO2 25 Not Perf 26 BUN 8* 9* 11 CREATININE 0.75* 0.73* 0.79* Last 3 LFTs Recent Labs 12/29/19 0934 12/26/19 0346 12/24/19 0608 12/21/19 0000 AST 60* 79* 76* 68* ALT 43 24 60* 69* ALKPHOS 117 129 140* 91 BILITOT 0.6 0.6 0.7 1.0 BILIDIR -- 0.2 0.5* 0.6* Last Ca, Mg, Phos Recent Labs 12/29/19 0934 12/27/19 0353 12/26/19 0346 12/25/19 0116 CALCIUM 8.6 8.1* 8.5 8.2* PHOS -- 3.7 3.4 2.8 MAGNESIUM -- 0.79 0.85 0.77 Last 3 Coags No results for input(s): PT, INR, PTT in the last 168 hours. MICROBIOLOGY: BCx (12/23): NGTD COVID-19 (12/19): negative BCx (12/19): NGTD CMV IgM (12/19): negative HIV 1/2 Ab and Ag (12/23): negative CSF (12/20): - Negative Cryptococcal Antigen - Negative Fungal Culture - Negative HSV-1 and HSV-2 PCR - Negative Enterovirus PCR - Negative VZV Tick Borne Panel (12/20): negative ?? PATHOLOGY: Peripheral Smear 12/24/19: DISCUSSION The patient's history of critical illness is noted and likely contributory to the hemogram findings.Bleeding should be investigated given the degree of polychromasia seen. Reticulated hemoglobin (RET-HE test offered under reticulocyte count) is a more sensitive indicator of current iron stores availab le for hemoglobin synthesis and can be ordered if clinically indicated. No schistocytes are apparenton this periperhal smear, however if there is clinical concern for hemolysis, correlation with additional laboratory testing is recommended; LDH, bilirubin, reticulocyte count, haptoglobin, DIC screen,and direct antiglobulin testing may provide a more definitive evaluation. The reported history of thrombocytopenia is noted, however??that abnormality appears to have essentially resolved itself at thetime of this study. ?? CSF Cytology: DISCUSSION Cerebrospinal fluid, lumbar: predominantly lymphocytes histiocytes; likely reactive. Should lymphomabe a clinical consideration, suggest LLS (lymphoma leukemia screen) studies.??LLS study is optimal for evaluation of abnormal lymphocytic infiltrates and blasts in fluid specimens. ?? IMAGING: CT Head 12/21/19: IMPRESSION Question bioccipital hypoattenuation (particularly on the LEFT), difficult to assess given extensivestreak artifact although appears slightly more conspicuous compared to prior CT 12/20/2019; pathology in this region cannot be excluded. No acute intracranial hemorrhage or mass effect identified. ?? ECHO 12/21/19: SUMMARY: 1. Rhythm: AF with RVR. 2. The left ventricular chamber size is normal. ??Mild concentric left ventricular hypertrophy is observed. ??Basal septal hypertrophy is observed (2 cm). ??Global left ventricular systolic function appears hyperdynamic. ??Ejection fraction is estimated to be 75%. ??There are no left ventricular segmental wall motion abnormalities. 3. The right ventricle is normal in size. ??Right ventricular global systolic function is normal. ??Pulmonary artery hypertension could not be assessed due to inadequate tricuspid regurgitation jet. 4. There is no hemodynamically significant valve disease. 5. There is mild dilatation of the aortic root (4.1 cm). 6. See remainder of report for additional findings. ? ASSESSMENT AND PLAN Mr. Su is a 64 yo male with a pmhx of Parkinson's Disease s/p DBS, DM-II, HTN, HLD, sensory neuropathy, previous suicide attempt with Sinemet (reported in Neurology telephone encounter from 08/23/19)?who presents as a transfer from [facility] following 4 days of AMS, worsening tremor, fever, general lethargy, and malaise. The OSH??diagnosed him with a suspected UTI, though cultures returned w/ mixed growth. He received vancomycin and zosyn at the OSH; though given his worsening AMS, persistent fevers, tremors, ?myoclonos, he was transferred to the [facility] for further management. ?? On arrival to the MICU on 12/19, patient was not following commands, extremely tremulous and febrile up to 102.7 F. Neurology was engaged on transfer, and there was concern for meningitis/encephalitis. As a result, Mr. Timbo Su was empirically started on CTX, ampicillin, vancomycin, and acyclovir (that have all been stopped given clinical improvement and negative infectious work-up). LP was largely unremarkable; though ?viral meningitis remained a consideration. MRI was not done given patient wasintermittently febrile, and per MRI safety, his DBS + fevers are not compatible with MRI (electrical engineering draftsperson warning). A hematologic process also remained a consideration, given intermittent fevers and pancytopenia which have now recovered and smear appears stable. ?? Patient was transferred to Hospital Medicine on 12/24 and continues to be alert with reasonable intact cognition, HDS, and markedly improved from admission. No issues with repeat fevers since transfer; etiology remains unclear. Of note, his ICU course was also complicated by paroxysmal A-Fib with RVR; which is now adequately rate controlled on diltiazem and metoprolol. I had a conversation with the on 12/26; she states prior to admission the patient was driving and taking care of many of his ADLs on his own. We discussed the risks and benefits of anti-coagulation; and the would like to initiate apixaban. She also does understand that he will need inpatient rehab; and is amenable to placement. 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 #Parkinson's Disease w/ DBS device - Passed Barium Swallow (12/27) --> transitioned to CC4 diet (12/28) - Continue: Sinemet 25-250 mg QID - Continue: Entacapone 200 mg TID - Neurology has signed off; patient appears at outpatient baseline - If he becomes more rigid, increase Sinemet to 1 tab 5x/day - If he has dizziness, orthostatic hypotension, nausea, dyskinesias or hallucinations, reduce Sinemet to 1 tab TID #Paroxysmal Atrial Fibrillation w/ RVR #Chronic HFpEF - c/w apixaban 5 mg BID (12/27-); discussed risks and benefits with - c/w diltiazem 240 mg daily (12/26-) - c/w metoprolol succinate 150 mg daily (12/26-) - c/w atorvastatin 10 mg QPM - discontinued enoxaparin 110 mg BID (12/27) - Mg >1,K>4 ?? #Previous Pancytopenia (2/2 unclear etiology), resolved #Normocytic Anemia - OSH B12 and Folate WNL - OSH iron studies c/w AOCD - Smudge cells were indicated on CBC, peripheral smear reviewed (stable) - CRP and LDH were elevated - If patient continues to fever MICU recommended: - Evaluation by Hematology; and possible non-contrast CT of Chest - Continue to monitor counts ?? #Type II Diabetes - Sensitive SSI Q4H - Hold: home glipizide 5 mg BID - Hold: home metformin 1,000 mg BID ?? #HTN - Hold: home lisinopril 40 mg daily ?? #Depression - Hold: duloxetine 30 mg TID ?? #?Hx of Overactive Bladder - started oxybutynin 5 mg daily (12/28) - will take time before effect is seen - starting this medication was discussed with pharmacy - Hold: home mirabegron 25 mg Daily (not in our formulary) ?? #Housekeeping DVT Prophylaxis: Apixaban 5 mg BID Diet: CC4 GI Prophylaxis: Pantoprazole 40 mg Daily (12/24) Disposition: Awaiting rehabilitation or SNF placement with active referrals in process Code Status: Full Code ?? Huey Carty, Internal Medicine Resident, PGY-1 12/30/19 8:51 AM Beverley Green RN - 12/29/2019 3:25 PM EDT OFFICE OF CARE MANAGEMENT [employer] Follow-up Note S/O: Discussed plan of care with Primary team and Nursing to assess continuing care and discharge needs. LOS: 8 days Primary Insurance: MEDICARE Secondary Insurance: GOVERNMENT PERSONNEL MUTUAL DECISION MAKER: Patient A/OX4 and able to make decisions. SIGN CARPENTER Consult to complete ADs. Pt continues to require hospitalization for: Parkinson's Disease- DBS was placed in 06/2017; it is being managed by Dr. Vishnu Hooper MD (neurlogist here at [facility]) Patient is medically ready for discharge awaiting a rehab bed. Current referrals in place: 1. [facility]- pending review- requesting patient be seen by therapies first thing in am. Serology Technician requesting this. 2. [facility] -spoke with CAYLA Pedroaz to have them review. 3. [facility] Acute Rehab -pending review Patient's spouse will be taking 2 weeks and can be with patient 04/03. If needed she will take a MARIN from work. Serology Technician has reached out to facilities via [employer] to answer questions about patient to obtain bed. Patient doing well and motivated to go to rehab and discharge home as soon as possible. A: Patient is medically ready for discharge and we are waiting for a rehab bed. P:Machine He[employer] Seat [employer] to follow with team and family to assist with discharge needs when patient ready for discharge. Beverley Green RN, [employer] Pager #[phone] Huey Carty - 12/29/2019 7:38 AM EDT [facility] MEDICINE PROGRESS NOTE Date: 12/29/19 Patient Information Name: Timbo Su : 1955 PCP: Griselda Stanley MD PCP Admit Date: 12/20/2019 ID: Timbo Su is a 64 y.o. male with a pmhx of Parkinson's Disease s/p DBS, DM-II, HTN, HLD, sensory neuropathy, previous suicide attempt with Sinemet (reported in Neurology telephone encounter from 08/23/19)?who presents as a transfer from [facility] following 4 days of AMS, worsening tremor, fever, general lethargy, and malaise. The OSH??diagnosed him with a suspected UTI, though cultures returned w/ mixed growth. He received vancomycin and zosyn at the OSH; though given his worseningAMS, persistent fevers, tremors, ?myoclonos, he was transferred to the [facility] for further management. Patient was briefly in hospital medicine and then transfer to the MICU and intubated as he unable to protect his airway.He was empirically treated for meningitis.Patient is now back at his baseline. ?? Active Problems: Parkinson's disease Atrial fibrillation Dysphagia SUBJECTIVE/24H EVENTS - No acute events overnight; VSS on RA - Diet advanced to CC4 after passing MBS - Patient converted to A-fib at 0055; heart rates - Continues to have urinary incontinence (not baseline per ); discussed with pharmacy - Resting comfortably in bed this AM; denies fevers, chills, CP, SOB, abdominal pain - Referrals placed for rehab Medications: Reviewed in eDH OBJECTIVE Last value Range last 24 hrs Temperature Temp: 36 ??C (96.8 ??F) Temp: [36 ??C (96.8 ??F)-37.6 ??C (99.7 ??F)] Heart Rate Heart Rate: 77 Heart Rate: -- Blood Pressure BP: 122/63 BP: (101-125)/(45-90) Respiratory Rate Resp: 18 Resp: [16-18] SpO2 SpO2: 92 % SpO2: [92 %-97 %] Intake/Output Summary (Last 24 hours) at 12/29/2019 0783 Last data filed at 12/29/2019 0524 Gross per 24 hour Intake -- Output 250 ml Net -250 ml Patient Vitals for the past 168 hrs: Weight 12/25/19 0400 105.3 kg (232 lb 2.3 oz) 12/24/19 0000 108.9 kg (240 lb 1.3 oz) 12/23/19 0000 106 kg (233 lb 11 oz) Admit wt: 103 kg Physical Exam: Constitutional: Oriented to person, place, and time. NAD HENT: Normocephalic, atraumatic, moist mucous membranes Cardiovascular: Normal rate, regular rhythm, normal heart sounds and intact distal pulses. Pulmonary/Chest: Effort normal and breath sounds normal. No respiratory distress. No wheezes or rale. Abdominal: Soft. BSx4, NTND Neurological: masked facies and resting tremor at baseline, cogwheel rigidity improved Skin: Skin is warm and dry. No rash noted. No erythema. Psychiatric: Normal mood. LABS: Last 3 wbc, hgb, hct plt Recent Labs 12/27/19 0353 12/26/19 0346 12/25/19 0116 WBC 4.8 4.4 4.1 HGB 8.9* 8.4* 9.1* HCT 29.2* 27.1* 27.7* PLATELET 172 154 141* Last 3 Lytes Recent Labs 12/27/19 0353 12/26/19 0346 12/25/19 0116 NA 139 139 139 K 4.1 4.4 3.8 CL 104 106 106 CO2 Not Perf 26 23 BUN 9* 11 10 CREATININE 0.73* 0.79* 0.61* Last 3 LFTs Recent Labs 12/26/19 0346 12/24/19 0608 12/21/19 0000 AST 79* 76* 68* ALT 24 60* 69* ALKPHOS 129 140* 91 BILITOT 0.6 0.7 1.0 BILIDIR 0.2 0.5* 0.6* Last Ca, Mg, Phos Recent Labs 12/27/19 0353 12/26/19 0346 12/25/19 0116 CALCIUM 8.1* 8.5 8.2* PHOS 3.7 3.4 2.8 MAGNESIUM 0.79 0.85 0.77 Last 3 Coags No results for input(s): PT, INR, PTT in the last 168 hours. MICROBIOLOGY: BCx (12/23): NGTD COVID-19 (12/19): negative BCx (12/19): NGTD CMV IgM (12/19): negative HIV 1/2 Ab and Ag (12/23): negative CSF (12/20): - Negative Cryptococcal Antigen - Negative Fungal Culture - Negative HSV-1 and HSV-2 PCR - Negative Enterovirus PCR - Negative VZV Tick Borne Panel (12/20): negative ?? PATHOLOGY: Peripheral Smear 12/24/19: DISCUSSION The patient's history of critical illness is noted and likely contributory to the hemogram findings.Bleeding should be investigated given the degree of polychromasia seen. Reticulated hemoglobin (RET-HE test offered under reticulocyte count) is a more sensitive indicator of current iron stores availab le for hemoglobin synthesis and can be ordered if clinically indicated. No schistocytes are apparenton this periperhal smear, however if there is clinical concern for hemolysis, correlation with additional laboratory testing is recommended; LDH, bilirubin, reticulocyte count, haptoglobin, DIC screen,and direct antiglobulin testing may provide a more definitive evaluation. The reported history of thrombocytopenia is noted, however??that abnormality appears to have essentially resolved itself at thetime of this study. ?? CSF Cytology: DISCUSSION Cerebrospinal fluid, lumbar: predominantly lymphocytes histiocytes; likely reactive. Should lymphomabe a clinical consideration, suggest LLS (lymphoma leukemia screen) studies.??LLS study is optimal for evaluation of abnormal lymphocytic infiltrates and blasts in fluid specimens. ?? IMAGING: CT Head 12/21/19: IMPRESSION Question bioccipital hypoattenuation (particularly on the LEFT), difficult to assess given extensivestreak artifact although appears slightly more conspicuous compared to prior CT 12/20/2019; pathology in this region cannot be excluded. No acute intracranial hemorrhage or mass effect identified. ?? ECHO 12/21/19: SUMMARY: 1. Rhythm: AF with RVR. 2. The left ventricular chamber size is normal. ??Mild concentric left ventricular hypertrophy is observed. ??Basal septal hypertrophy is observed (2 cm). ??Global left ventricular systolic function appears hyperdynamic. ??Ejection fraction is estimated to be 75%. ??There are no left ventricular segmental wall motion abnormalities. 3. The right ventricle is normal in size. ??Right ventricular global systolic function is normal. ??Pulmonary artery hypertension could not be assessed due to inadequate tricuspid regurgitation jet. 4. There is no hemodynamically significant valve disease. 5. There is mild dilatation of the aortic root (4.1 cm). 6. See remainder of report for additional findings. ? ASSESSMENT AND PLAN Mr. Su is a 64 yo male with a pmhx of Parkinson's Disease s/p DBS, DM-II, HTN, HLD, sensory neuropathy, previous suicide attempt with Sinemet (reported in Neurology telephone encounter from 08/23/19)?who presents as a transfer from [facility] following 4 days of AMS, worsening tremor, fever, general lethargy, and malaise. The OSH??diagnosed him with a suspected UTI, though cultures returned w/ mixed growth. He received vancomycin and zosyn at the OSH; though given his worsening AMS, persistent fevers, tremors, ?myoclonos, he was transferred to the [facility] for further management. ?? On arrival to the MICU on 12/19, patient was not following commands, extremely tremulous and febrile up to 102.7 F. Neurology was engaged on transfer, and there was concern for meningitis/encephalitis. As a result, Mr. Timbo Su was empirically started on CTX, ampicillin, vancomycin, and acyclovir (that have all been stopped given clinical improvement and negative infectious work-up). LP was largely unremarkable; though viral meningitis remained a consideration (VZV pending). MRI was not done given patient was intermittently febrile, and per MRI safety, his DBS + fevers are not compatible with MRI (electrical engineering draftsperson warning). A hematologic process also remained a consideration, given intermittent fevers and pancytopenia which have now recovered and smear appears stable. ?? Patient was transferred to Hospital Medicine on 12/24 and continues to be alert with reasonable intact cognition, HDS, and markedly improved from admission. No issues with repeat fevers since transfer; etiology remains unclear. Of note, his ICU course was also complicated by paroxysmal A-Fib with RVR; which is now adequately rate controlled on diltiazem and metoprolol. I had a conversation with the on 12/26; she states prior to admission the patient was driving and taking care of many of his ADLs on his own. We discussed the risks and benefits of anti-coagulation; and the would like to initiate apixaban. She also does understand that he will need inpatient rehab; and is amenable to placement. 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 #Parkinson's Disease w/ DBS device - Passed Barium Swallow (12/27) --> transitioned to CC4 diet - Continue: Sinemet 25-250 mg QID - Continue: Entacapone 200 mg TID - Neurology has signed off; patient appears at outpatient baseline - If he becomes more rigid, increase Sinemet to 1 tab 5x/day - If he has dizziness, orthostatic hypotension, nausea, dyskinesias or hallucinations, reduce Sinemet to 1 tab TID #Paroxysmal Atrial Fibrillation w/ RVR #Chronic HFpEF - c/w apixaban 5 mg BID (12/27-) - c/w diltiazem 240 mg daily (12/26-) - c/w metoprolol succinate 150 mg daily (12/26-) - c/w atorvastatin 10 mg QPM - discontinued enoxaparin 110 mg BID (12/27) - Mg >1,K>4 ?? #Previous Pancytopenia (2/2 unclear etiology), resolved #Normocytic Anemia - OSH B12 and Folate WNL - OSH iron studies c/w AOCD - Smudge cells were indicated on CBC, peripheral smear reviewed (stable) - SPEP not resulted - CRP and LDH were elevated - If patient continues to fever MICU recommended: - Evaluation by Hematology; and possible non-contrast CT of Chest - Continue to trend ?? #Type II Diabetes - Sensitive SSI Q4H - Hold: home glipizide 5 mg BID - Hold: home metformin 1,000 mg BID ?? #HTN - Hold: home lisinopril 40 mg daily ?? #Depression - Hold: duloxetine 30 mg TID ?? #?Hx of Overactive Bladder - Consider starting Oxybutynin; discussed with pharmacy - Continually removes condom catheter - Will discuss with pharmacy alternatives as mirabegron is not on our formulary - Hold: home mirabegron 25 mg Daily ?? #Housekeeping DVT Prophylaxis: Apixaban 5 mg BID Diet: Dysphagia Soft Diet GI Prophylaxis: Pantoprazole 40 mg Daily (12/24) Disposition: pending course Code Status: Full Code ?? Huey Carty DO Internal Medicine Resident, PGY-1 12/29/19 7:38 AM Associated attestation - Magali Lopez MD - 12/29/2019 7:48 PM EDT Attending Attestation Please see resident;s note for details of the patient history [...] of two midnights or is on the CMS inpatient only procedure list (status C) due to: the patient has met Inpatient IPI criteria and is awaiting rehabilitation or intermediate facility placement with active referrals inHuey Corrales - 12/28/2019 1:21 PM EDT HOSPITAL MEDICINE PROGRESS NOTE Date: 12/28/19 Patient Information Name: Timbo Su : 1955 PCP: Griselda Stanley MD PCP Admit Date: 12/20/2019 ID: Timbo Su is a 64 y.o. male with a pmhx of Parkinson's Disease s/p DBS, DM-II, HTN, HLD, sensory neuropathy, previous suicide attempt with Sinemet (reported in Neurology telephone encounter from 08/23/19)?who presents as a transfer from [facility] following 4 days of AMS, worsening tremor, fever, general lethargy, and malaise. The OSH??diagnosed him with a suspected UTI, though cultures returned w/ mixed growth. He received vancomycin and zosyn at the OSH; though given his worseningAMS, persistent fevers, tremors, ?myoclonos, he was transferred to the [facility] for further management. Patient was briefly in hospital medicine and then transfer to the MICU and intubated as he unable to protect his airway.He was empirically treated for meningitis.Patient is now back at his baseline. ?? Active Problems: Parkinson's disease Atrial fibrillation Dysphagia SUBJECTIVE/24H EVENTS - No acute events overnight - Patient converted to A-fib at 0204; HR 80s-90s asymptomatic - Nursing reports he pulled out condom catheter due to discomfort - Continues to have urinary incontinence (not baseline per ) - Resting comfortably in bed this AM; denies fevers, chills, CP, SOB, abdominal pain - Referrals placed for rehab Medications: Reviewed in eDH OBJECTIVE Last value Range last 24 hrs Temperature Temp: 36.7 ??C (98.1 ??F) Temp: [36.7 ??C (98.1 ??F)-37.6 ??C (99.7 ??F)] Heart Rate Heart Rate: 77 Heart Rate: -- Blood Pressure BP: 122/67 BP: (107-131)/(60-90) Respiratory Rate Resp: 16 Resp: [16-18] SpO2 SpO2: 94 % SpO2: [94 %-97 %] Intake/Output Summary (Last 24 hours) at 12/28/2019 1326 Last data filed at 12/28/2019 1200 Gross per 24 hour Intake 287 ml Output 300 ml Net -13 ml Patient Vitals for the past 168 hrs: Weight 12/25/19 0400 105.3 kg (232 lb 2.3 oz) 12/24/19 0000 108.9 kg (240 lb 1.3 oz) 12/23/19 0000 106 kg (233 lb 11 oz) 12/22/19 0400 105.5 kg (232 lb 9.4 oz) Admit wt: 103 kg Physical Exam: Constitutional: Oriented to person, place, and time. NAD HENT: Normocephalic, atraumatic, moist mucous membranes Cardiovascular: Normal rate, regular rhythm, normal heart sounds and intact distal pulses. Pulmonary/Chest: Effort normal and breath sounds normal. No respiratory distress. No wheezes or rale. Abdominal: Soft. BSx4, NTND : condom catheter in place Neurological: masked facies and resting tremor at baseline, cogwheel rigidity improved Skin: Skin is warm and dry. No rash noted. No erythema. Psychiatric: Normal mood. LABS: Last 3 wbc, hgb, hct plt Recent Labs 12/27/19 0353 12/26/19 0346 12/25/19 0116 WBC 4.8 4.4 4.1 HGB 8.9* 8.4* 9.1* HCT 29.2* 27.1* 27.7* PLATELET 172 154 141* Last 3 Lytes Recent Labs 12/27/19 0353 12/26/19 0346 12/25/19 0116 NA 139 139 139 K 4.1 4.4 3.8 CL 104 106 106 CO2 Not Perf 26 23 BUN 9* 11 10 CREATININE 0.73* 0.79* 0.61* Last 3 LFTs Recent Labs 12/26/19 0346 12/24/19 0608 12/21/19 0000 AST 79* 76* 68* ALT 24 60* 69* ALKPHOS 129 140* 91 BILITOT 0.6 0.7 1.0 BILIDIR 0.2 0.5* 0.6* Last Ca, Mg, Phos Recent Labs 12/27/19 0353 12/26/19 0346 12/25/19 0116 CALCIUM 8.1* 8.5 8.2* PHOS 3.7 3.4 2.8 MAGNESIUM 0.79 0.85 0.77 Last 3 Coags No results for input(s): PT, INR, PTT in the last 168 hours. MICROBIOLOGY: BCx (12/23): NGTD COVID-19 (12/19): negative BCx (12/19): NGTD CMV IgM (12/19): negative HIV 1/2 Ab and Ag (12/23): negative CSF (12/20): - Negative Cryptococcal Antigen - Negative Fungal Culture - Negative HSV-1 and HSV-2 PCR - Negative Enterovirus PCR - Negative VZV Tick Borne Panel (12/20): negative ?? PATHOLOGY: Peripheral Smear 12/24/19: DISCUSSION The patient's history of critical illness is noted and likely contributory to the hemogram findings.Bleeding should be investigated given the degree of polychromasia seen. Reticulated hemoglobin (RET-HE test offered under reticulocyte count) is a more sensitive indicator of current iron stores availab le for hemoglobin synthesis and can be ordered if clinically indicated. No schistocytes are apparenton this periperhal smear, however if there is clinical concern for hemolysis, correlation with additional laboratory testing is recommended; LDH, bilirubin, reticulocyte count, haptoglobin, DIC screen,and direct antiglobulin testing may provide a more definitive evaluation. The reported history of thrombocytopenia is noted, however??that abnormality appears to have essentially resolved itself at thetime of this study. ?? CSF Cytology: DISCUSSION Cerebrospinal fluid, lumbar: predominantly lymphocytes histiocytes; likely reactive. Should lymphomabe a clinical consideration, suggest LLS (lymphoma leukemia screen) studies.??LLS study is optimal for evaluation of abnormal lymphocytic infiltrates and blasts in fluid specimens. ?? IMAGING: CT Head 12/21/19: IMPRESSION Question bioccipital hypoattenuation (particularly on the LEFT), difficult to assess given extensivestreak artifact although appears slightly more conspicuous compared to prior CT 12/20/2019; pathology in this region cannot be excluded. No acute intracranial hemorrhage or mass effect identified. ?? ECHO 12/21/19: SUMMARY: 1. Rhythm: AF with RVR. 2. The left ventricular chamber size is normal. ??Mild concentric left ventricular hypertrophy is observed. ??Basal septal hypertrophy is observed (2 cm). ??Global left ventricular systolic function appears hyperdynamic. ??Ejection fraction is estimated to be 75%. ??There are no left ventricular segmental wall motion abnormalities. 3. The right ventricle is normal in size. ??Right ventricular global systolic function is normal. ??Pulmonary artery hypertension could not be assessed due to inadequate tricuspid regurgitation jet. 4. There is no hemodynamically significant valve disease. 5. There is mild dilatation of the aortic root (4.1 cm). 6. See remainder of report for additional findings. ? ASSESSMENT AND PLAN Mr. Su is a 64 yo male with a pmhx of Parkinson's Disease s/p DBS, DM-II, HTN, HLD, sensory neuropathy, previous suicide attempt with Sinemet (reported in Neurology telephone encounter from 08/23/19)?who presents as a transfer from [facility] following 4 days of AMS, worsening tremor, fever, general lethargy, and malaise. The OSH??diagnosed him with a suspected UTI, though cultures returned w/ mixed growth. He received vancomycin and zosyn at the OSH; though given his worsening AMS, persistent fevers, tremors, ?myoclonos, he was transferred to the [facility] for further management. ?? On arrival to the MICU on 12/19, patient was not following commands, extremely tremulous and febrile up to 102.7 F. Neurology was engaged on transfer, and there was concern for meningitis/encephalitis. As a result, Mr. Timbo Su was empirically started on CTX, ampicillin, vancomycin, and acyclovir (that have all been stopped given clinical improvement and negative infectious work-up). LP was largely unremarkable; though viral meningitis remained a consideration (VZV pending). MRI was not done given patient was intermittently febrile, and per MRI safety, his DBS + fevers are not compatible with MRI (electrical engineering draftsperson warning). A hematologic process also remained a consideration, given intermittent fevers and pancytopenia which have now recovered and smear appears stable. ?? Patient was transferred to Hospital Medicine on 12/24 and continues to be alert with reasonable intact cognition, HDS, and markedly improved from admission. No issues with repeat fevers since transfer; etiology remains unclear. Of note, his ICU course was also complicated by paroxysmal A-Fib with RVR. He was continued on therapeutic lovenox, metoprolol, and diltiazem. I had a conversation with the on 12/26; she states prior to admission the patient was driving and taking care of many of his ADLs on his own. We discussed the risks and benefits of anti-coagulation; and the would like to initiate apixaban. She also does understand that he will need inpatient rehab; and is amenable to placement. 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 #Parkinson's Disease w/ DBS device - Plans for Barium Swallow today - Continue: Sinemet 25-250 mg QID - Continue: Entacapone 200 mg TID - Neurology has signed off; patient appears at outpatient baseline - If he becomes more rigid, increase Sinemet to 1 tab 5x/day - If he has dizziness, orthostatic hypotension, nausea, dyskinesias or hallucinations, reduce Sinemet to 1 tab TID #Paroxysmal Atrial Fibrillation w/ RVR #Chronic HFpEF - Started: apixaban 5 mg BID (12/27-) - STOPPED: enoxaparin 110 mg BID (12/27) - c/w diltiazem 240 mg daily (12/26) - c/w metoprolol succinate 150 mg daily (12/26) - Continue: atorvastatin 10 mg QPM - Mg >1,K>4 ?? #Previous Pancytopenia (2/2 unclear etiology), resolved #Normocytic Anemia - OSH B12 and Folate WNL - OSH iron studies c/w AOCD - Smudge cells were indicated on CBC, peripheral smear reviewed (stable) - SPEP not resulted - CRP and LDH were elevated - If patient continues to fever MICU recommended: - Evaluation by Hematology; and possible non-contrast CT of Chest - Continue to trend ?? #Type II Diabetes - Sensitive SSI Q4H - Hold: home glipizide 5 mg BID - Hold: home metformin 1,000 mg BID ?? #HTN - Hold: home lisinopril 40 mg daily ?? #Depression - Hold: duloxetine 30 mg TID ?? #?Hx of Overactive Bladder - Continually removes condom catheter - Will discuss with pharmacy alternatives as mirabegron is not on our formulary - Hold: home mirabegron 25 mg Daily ? #Housekeeping DVT Prophylaxis: Apixaban 5 mg BID Diet: Dysphagia Soft Diet GI Prophylaxis: Pantoprazole 40 mg Daily (12/24) Disposition: pending course Code Status: Full Code ?? Huey Carty DO Internal Medicine Resident, PGY-1 12/28/19 1:26 PM Associated attestation - Magali Lopez MD - 12/28/2019 4:19 PM EDT Attending Attestation Please see residents note for details of the patient history [...] of two midnights or is on the [facility] inpatient only procedure list (status C) due to: the patient has met Inpatient IPI criteria and is awaiting rehabilitation or intermediate facility placement with active referrals inprocess Beverley Green RN - 12/28/2019 12:37 PM EDT OFFICE OF CARE MANAGEMENT Machine Heel Seat Laster Follow-up Note S/O: Discussed plan of care with Primary team and Nursing to assess continuing care and discharge needs. LOS: 7 days Primary Insurance: MEDICARE Secondary Insurance: GOVERNMENT PERSONNEL MUTUAL DECISION MAKER: Patient A/OX4 and able to make decisions. SIGN CARPENTER Consult to complete ADs. Pt continues to require hospitalization for: 12/27 Dr Lopez Progress Note: 64 y.o. male with a pmhx of Parkinson's Disease s/p DBS, DM-II, HTN, HLD, sensory neuropathy, previous suicide attempt with Sinemet (reported in Neurology telephone encounter from 08/23/19)?who presents as a transfer from [facility] following 4 days of AMS, worsening tremor, fever, general lethargy, and malaise. The OSH??diagnosed him with a suspected UTI, though cultures returned w/ mixed growth. He received vancomycin and zosyn??at the OSH;??though given??hisworsening AMS,??persistent??fevers, tremors, ?myoclonos,??he was transferred to the [facility] for further management.??Patient was briefly in hospital medicine and then transfer to the MICU and intubated as he unable to protect his airway.He was empirically treated for meningitis.Patient is now back at his baseline. -Barium Swallow Evaluation today at 1300 - Patient motivated to get back home and independent. He is getting stronger daily according to his spouse. Current referrals in place: Based on discussions with the multi-disciplinary healthcare team, the patient would benefit from ACUTE/SWING level of care at discharge. ?? I have met with the Arlyn spouse to discuss discharge planning needs. I have provided the [facility], Office of Care Management letter from the Telecommunication Operator pertaining to rehab referrals. I have alsoprovided a letter describing our affiliations within the [facility] and educated them about their right to choose where referrals are placed. ?? I reviewed the different levels of rehab including SNF, swing, acute and LTAC with aquiles [place] . ?? The patient/outside sales representative has been provided a list of facilities within their preferred geographic area. ?? I have requested that the Arlyn, spouse provide at least three choices for referral. ?? The patient/outside sales representative have requested referrals to: 1. [facility] 2. [facility] 3. [facility] Acute Rehab ?? Expected date of discharge: 12/28/2019 Note routed to Retail Loss Prevention Investigator who will communicate referrals to facilities and provide any required information. Patient's spouse will be taking 2 weeks and can be with patient 04/03. If needed she will take a MARIN from work. A: Patient nearing Medical readiness for discharge. Likely ready late this pm. Serology Technician reaching out to facilities on their ability to take patient today. P:Machine Heel Seat Laster to follow with team and family to assist with discharge needs when patient ready for discharge. Beverley Green RN, Machine Heel Seat Laster Pager #[phone] - 12/28/2019 9:42 AM EDT Nutrition Consult Note Patient admitted in transfer from [facility] following 4 days of AMS, worsening tremor, fever,general lethargy, and malaise -- he was empirically treated for meningitis. Relevant medical historyincludes Parkinson's Disease s/p DBS, DM-II, HTN, HLD, sensory neuropathy, previous suicide attempt with Sinemet (reported in Neurology telephone encounter from 08/23/19). Pt tolerating dysphagia soft diet following removal of DHT per 12/26 MD documentation. Timbo Su is a 64 y.o. male Reason for intervention: MST evaluation - MST = 2 Nutrition Recommendations: -Continue CC4 diet as needed. Consistency per ACROBATIC DANCER recs. -Adding cottage cheese w/ fruit at snacks BID per pt request. -Diet office to call nursing for menu choices. -Encouraged good po meal and hydration intake. -Monitor weight. Active Orders Diet Dysphagia Soft Diet Frequency: Effective Now Number of Occurrences: Until Specified Lab Results Component Value Date NA 139 12/27/2019 K 4.1 12/27/2019 CL 104 12/27/2019 CO2 Not Perf 12/27/2019 BUN 9 (L) 12/27/2019 CREATININE 0.73 (L) 12/27/2019 GFRAA 114 12/27/2019 ESTGFR 98 12/27/2019 MAGNESIUM 0.79 12/27/2019 CALCIUM 8.1 (L) 12/27/2019 PHOS 3.7 12/27/2019 AST 79 (H) 12/26/2019 ALT 24 12/26/2019 ALKPHOS 129 12/26/2019 BILITOT 0.6 12/26/2019 BILIDIR 0.2 12/26/2019 TRIG 369 12/22/2019 CRP 59.1 (H) 12/24/2019 IRON 21 (L) 12/21/2019 Lab Results Component Value Date POCGLU 141 12/28/2019 POCGLU 177 12/28/2019 POCGLU 148 12/27/2019 POCGLU 185 12/27/2019 POCGLU 168 12/27/2019 POCGLU 235 (H) 12/27/2019 Skin Status: Shift Pressure Injury Prevention Occiput: No Injury Thoracic Spine: No Injury Sacral: Redness, Blanchable Ischial - left: No Injury Ischial - right: No Injury Heel - left: No Injury Heel - right: No Injury Elbow - left: No Injury Elbow - right: No Injury Device Sites: O2 sat monitor, IV sites, ECG Leads Other Sites: NGT Relevant medications: lispro, lipitor, protonix, bowel regimen, others noted in eDH. Last Bowel Movement: 12/27/19 Admit Weight: 103 kg -- via bed scale Estimated body mass index is 32.39 kg/m?? as calculated from the following: Height as of 12/21/19: 180.3 cm (5' 10.98). Weight as of this encounter: 105.3 kg (232 lb 2.3 oz). Clarita Body Weight: 78.2kg Usual Body Weight: pt states he does not know Wt Readings from Last 10 Encounters: 12/25/19 105.3 kg (232 lb 2.3 oz) 12/21/19 103.9 kg (229 lb 0.9 oz) 06/11/19 98.4 kg (217 lb) 11/18/18 96.2 kg (212 lb) 08/14/18 94.8 kg (209 lb) 03/31/18 102.1 kg (225 lb) 01/28/18 102.1 kg (225 lb) 09/10/17 104.8 kg (231 lb) 07/25/17 (!) 102.4 kg (225 lb 12 oz) 06/24/17 100.3 kg (221 lb 1.9 oz) Above wt hx per chart review suggests weight stability WHISKEY REGAUGER. It appears bed scale was used to obtain weights this admit, possibly skewing actual value. Assessment: Estimated needs: Calories: 1955kcal/day (25kcal/kg IBW) Protein: 94grams/day (1.2g/kg IBW) Nutrition Focused Physical Exam (NFPE): Not performed Nutrition intake and intake history/Interview: Followed up with pt this afternoon upon his return from [facility]. Diet advanced to CC4. Pt reports a good appetite today. 75-100% po meal intake documented this admission. Whilst on TFs, per RD documentation between 12/21- pt received 86% daily goal volume for enteral feeds. Emphasized importance of good po nutritional intake given discontinuation of TFs. Ptverbalized understanding. Offered snacks/supplements - pt agreeable to cottage cheese w/ fruit BID. Food/nutrition-related hx: pt reports a good appetite WHISKEY REGAUGER. Protein-calorie Malnutrition: Not identified (Rey, JPEN J Parenteral Enteral Nutr. 2011;36(3): 273-83) Nutrition to continue to follow up while inpatient BEBE Leonard Pager #: [phone] Jessie Francisco, ACROBATIC DANCER - 12/28/2019 8:06 AM EDT Speech-Language Pathology Contact Note Pt tentatively scheduled for modified barium swallow in radiology at 1300 today. Jessie Francisco MS, [facility]-ACROBATIC DANCER Inpatient Rehabilitation Medicine pager:# [phone] Magali Lopez MD - 12/27/2019 1:21 PM EDT Hospital Medicine - Attending Day of Discharge Documentation Discharge diagnosis Active Hospital Problems Diagnosis ??? Dysphagia ??? Atrial fibrillation ??? Viral meningitis ??? Parkinson's disease Resolved Hospital Problems Diagnosis Date Resolved ??? Altered mental status 12/27/2019 Secondary Issues Active Non-Hospital Problems Diagnosis ??? S/P deep brain stimulator placement ??? [...] spent >30 minutes (Day of Discharge Code 59113) involved in the final examination of the patient, discussion of the hospital stay, instructions for continuing care to all relevant caregivers, and preparation of discharge records, prescriptions and referral forms. Plans ? [facility] ? Follow-up scheduled with PCP ? Please see the Discharge Summary for complete details of any medication changes and additional plans. Magali Lopez MD - 12/27/2019 8:20 AM EDT [facility] MEDICINE PROGRESS NOTE Date: 12/27/19 Patient Information Name: Timbo Su : 1955 PCP: Griselda Stanley MD PCP Admit Date: 12/20/2019 ID: Timbo Su is a 64 y.o. male with a pmhx of Parkinson's Disease s/p DBS, DM-II, HTN, HLD, sensory neuropathy, previous suicide attempt with Sinemet (reported in Neurology telephone encounter from 08/23/19)?who presents as a transfer from [facility] following 4 days of AMS, worsening tremor, fever, general lethargy, and malaise. The OSH??diagnosed him with a suspected UTI, though cultures returned w/ mixed growth. He received vancomycin and zosyn at the OSH; though given his worseningAMS, persistent fevers, tremors, ?myoclonos, he was transferred to the [facility] for further management. Patient was briefly in hospital medicine and then transfer to the MICU and intubated as he unable to protect his airway.He was empirically treated for meningitis.Patient is now back at his baseline. ?? Active Problems: Parkinson's disease Atrial fibrillation Dysphagia SUBJECTIVE/24H EVENTS Overnight: - Patient converted to a-fib at 0030, EKG confirmed atrial fibrillation (no RVR) though QTc was 749 (ordered lytes this AM); patient flipped back in NSR at 0342; on telemetry. Was given his scheduled metoprolol and diltiazem. Complained of epigastric discomfort that was relieved with 1x Tums. - Continues to be incontinent of urine; condom catheter in place - Unintentionally pulled out PIV; new one placed - Tolerating dysphagia soft diet This AM: - Sleeping comfortably in bed, VSS on RA - Repeated an EKG this morning; ovenrnight EKG showed a QTc of 749 - Lytes ordered as well - Denies chest pain, SOB, N/V, or abdominal pain Medications: Reviewed in eDH OBJECTIVE Last value Range last 24 hrs Temperature Temp: 37.3 ??C (99.1 ??F) Temp: [37 ??C (98.6 ??F)-37.5 ??C (99.5 ??F)] Heart Rate Heart Rate: 77 Heart Rate: [68-134] Blood Pressure BP: 111/56 BP: (111-144)/(56-80) Respiratory Rate Resp: 22 Resp: [18-22] SpO2 SpO2: 97 % SpO2: [94 %-99 %] Intake/Output Summary (Last 24 hours) at 12/27/2019 1319 Last data filed at 12/27/2019 1121 Gross per 24 hour Intake 820 ml Output 500 ml Net 320 ml Patient Vitals for the past 168 hrs: Weight 12/25/19 0400 105.3 kg (232 lb 2.3 oz) 12/24/19 0000 108.9 kg (240 lb 1.3 oz) 12/23/19 0000 106 kg (233 lb 11 oz) 12/22/19 0400 105.5 kg (232 lb 9.4 oz) 12/21/19 0600 103.7 kg (228 lb 9.9 oz) 12/20/19 1957 103 kg (227 lb 1.2 oz) Admit wt: 103 kg Physical Exam: Constitutional: Oriented to person, place, and time. NAD HENT: Normocephalic, atraumatic, moist mucous membranes Cardiovascular: Normal rate, regular rhythm, normal heart sounds and intact distal pulses. Pulmonary/Chest: Effort normal and breath sounds normal. No respiratory distress. No wheezes or rale. Abdominal: Soft. BSx4, NTND : condom catheter in place Neurological: masked facies and resting tremor at baseline, cogwheel rigidity improved Skin: Skin is warm and dry. No rash noted. No erythema. Psychiatric: Normal mood. LABS: Last 3 wbc, hgb, hct plt Recent Labs 12/27/19 0353 12/26/19 0346 12/25/19 0116 WBC 4.8 4.4 4.1 HGB 8.9* 8.4* 9.1* HCT 29.2* 27.1* 27.7* PLATELET 172 154 141* Last 3 Lytes Recent Labs 12/27/19 0353 12/26/19 0346 12/25/19 0116 NA 139 139 139 K 4.1 4.4 3.8 CL 104 106 106 CO2 Not Perf 26 23 BUN 9* 11 10 CREATININE 0.73* 0.79* 0.61* Last 3 LFTs Recent Labs 12/26/19 0346 12/24/19 0608 12/21/19 0000 AST 79* 76* 68* ALT 24 60* 69* ALKPHOS 129 140* 91 BILITOT 0.6 0.7 1.0 BILIDIR 0.2 0.5* 0.6* Last Ca, Mg, Phos Recent Labs 12/27/19 0353 12/26/19 0346 12/25/19 0116 CALCIUM 8.1* 8.5 8.2* PHOS 3.7 3.4 2.8 MAGNESIUM 0.79 0.85 0.77 Last 3 Coags Recent Labs 12/20/19 1725 PT 14.7* INR 1.3 PTT 32 MICROBIOLOGY: BCx (12/23): NGTD COVID-19 (12/19): negative BCx (12/19): NGTD CMV IgM (12/19): negative HIV 1/2 Ab and Ag (12/23): negative CSF (12/20): - Negative Cryptococcal Antigen - Negative Fungal Culture - Negative HSV-1 and HSV-2 PCR - Negative Enterovirus PCR - Negative VZV [place] Panel (12/20): negative ?? PATHOLOGY: Peripheral Smear 12/24/19: DISCUSSION The patient's history of critical illness is noted and likely contributory to the hemogram findings.Bleeding should be investigated given the degree of polychromasia seen. Reticulated hemoglobin (RET-HE test offered under reticulocyte count) is a more sensitive indicator of current iron stores availab le for hemoglobin synthesis and can be ordered if clinically indicated. No schistocytes are apparenton this periperhal smear, however if there is clinical concern for hemolysis, correlation with additional laboratory testing is recommended; LDH, bilirubin, reticulocyte count, haptoglobin, DIC screen,and direct antiglobulin testing may provide a more definitive evaluation. The reported history of thrombocytopenia is noted, however??that abnormality appears to have essentially resolved itself at thetime of this study. ?? CSF Cytology: DISCUSSION Cerebrospinal fluid, lumbar: predominantly lymphocytes histiocytes; likely reactive. Should lymphomabe a clinical consideration, suggest LLS (lymphoma leukemia screen) studies.??LLS study is optimal for evaluation of abnormal lymphocytic infiltrates and blasts in fluid specimens. ?? IMAGING: CT Head 5/11/20: IMPRESSION Question bioccipital hypoattenuation (particularly on the LEFT), difficult to assess given extensivestreak artifact although appears slightly more conspicuous compared to prior CT 12/20/2019; pathology in this region cannot be excluded. No acute intracranial hemorrhage or mass effect identified. ?? ECHO 12/21/19: SUMMARY: 1. Rhythm: AF with RVR. 2. The left ventricular chamber size is normal. ??Mild concentric left ventricular hypertrophy is observed. ??Basal septal hypertrophy is observed (2 cm). ??Global left ventricular systolic function appears hyperdynamic. ??Ejection fraction is estimated to be 75%. ??There are no left ventricular segmental wall motion abnormalities. 3. The right ventricle is normal in size. ??Right ventricular global systolic function is normal. ??Pulmonary artery hypertension could not be assessed due to inadequate tricuspid regurgitation jet. 4. There is no hemodynamically significant valve disease. 5. There is mild dilatation of the aortic root (4.1 cm). 6. See remainder of report for additional findings. ? ASSESSMENT AND PLAN Mr. Su is a 64 yo male with a pmhx of Parkinson's Disease s/p DBS, DM-II, HTN, HLD, sensory neuropathy, previous suicide attempt with Sinemet (reported in Neurology telephone encounter from 08/23/19)?who presents as a transfer from [facility] following 4 days of AMS, worsening tremor, fever, general lethargy, and malaise. The OSH??diagnosed him with a suspected UTI, though cultures returned w/ mixed growth. He received vancomycin and zosyn at the OSH; though given his worsening AMS, persistent fevers, tremors, ?myoclonos, he was transferred to the [facility] for further management. ?? On arrival to the MICU on 12/19, patient was not following commands, extremely tremulous and febrile up to 102.7 F. Neurology was engaged on transfer, and there was concern for meningitis/encephalitis. As a result, Mr. Timbo Su was empirically started on CTX, ampicillin, vancomycin, and acyclovir (that have all been stopped given clinical improvement and negative infectious work-up). LP was largely unremarkable; though viral meningitis remained a consideration (VZV pending). MRI was not done given patient was intermittently febrile, and per MRI safety, his DBS + fevers are not compatible with MRI (electrical engineering draftsperson warning). A hematologic process also remained a consideration, given intermittent fevers and pancytopenia which have now recovered and smear appears stable. ?? Patient was transferred to Hospital Medicine on 12/24 and continues to be alert with reasonable intact cognition, HDS, and markedly improved from admission. No issues with repeat fevers since transfer; etiology remains unclear. Of note, his ICU course was also complicated by paroxysmal A Fib with RVR. He was continued on therapeutic lovenox, metoprolol, and diltiazem. We will need to engage the familyand patient again to discuss risks and benefits of anti-coagulation. ?? Patient now tolerating dysphagia soft diet after removal of Dobbhoff. Modified Barium swallow is pending per ACROBATIC DANCER. Will continue to advance as tolerated. He continues to have urinary incontinence with acondom catheter in place; he did not have a morris catheter at home. ?? 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 #Parkinson's Disease w/ DBS device - Continue: Sinemet 25-250 mg QID - Continue: Entacapone 200 mg TID - Neurology has signed off; patient appears at outpatient baseline - If he becomes more rigid, increase Sinemet to 1 tab 5x/day - If he has dizziness, orthostatic hypotension, nausea, dyskinesias or hallucinations, reduce Sinemet to 1 tab TID #Paroxysmal Atrial Fibrillation w/ RVR #Chronic HFpEF - Continue: diltiazem 60 mg Q6H --> consider switching to long acting - Continue: metoprolol tartrate 37.5 mg Q6H --> consider switching to long acting - Continue: enoxaparin 110 mg BID (discuss anti-coagulation risks/benefits w/ family) - Continue: atorvastatin 10 mg QPM -Mg >1,K>4 ?? #Previous Pancytopenia (2/2 unclear etiology), resolved #Normocytic Anemia - OSH B12 and Folate WNL - OSH iron studies c/w AOCD - Smudge cells were indicated on CBC, peripheral smear reviewed (stable) - SPEP not resulted - CRP and LDH were elevated - If patient continues to fever MICU recommended: - Evaluation by Hematology; and possible non-contrast CT of Chest - Continue to trend ?? #Type II Diabetes - Sensitive SSI Q4H - Hold: home glipizide 5 mg BID - Hold: home metformin 1,000 mg BID ?? #HTN - Hold: home lisinopril 40 mg daily ?? #Depression - Hold: duloxetine 30 mg TID ?? #?Hx of Overactive Bladder - Condom Catheter in place - Hold: home mirabegron 25 mg Daily ? #Housekeeping DVT Prophylaxis: Therapeutic Lovenox Diet: Dysphagia Soft Diet GI Prophylaxis: Pantoprazole 40 mg Daily (12/24) Disposition: pending course Code Status: Full Code ?? Huey Carty DO Internal Medicine Resident, PGY-1 12/27/19 1:19 PM Attending Attestation Please see Carloz's note for details of the patient history [...] of two midnights or is on the CMS inpatient only procedure list (status C) due to: the patient has met Inpatient IPI criteria and is awaiting rehabilitation or intermediate facility placement with active referrals inprocess He Márquez MD - 12/26/2019 7:26 AM EDT [facility] MEDICINE PROGRESS NOTE Date: 12/26/19 Patient Information Name: Timbo Su : 1955 PCP: Griselda Stanley MD PCP Admit Date: 12/20/2019 ID: Timbo Su is a 64 y.o. male with a pmhx of Parkinson's Disease s/p DBS, DM-II, HTN, HLD, sensory neuropathy, previous suicide attempt with Sinemet (reported in Neurology telephone encounter from 08/23/19)?who presents as a transfer from [facility] following 4 days of AMS, worsening tremor, fever, general lethargy, and malaise. The OSH??diagnosed him with a suspected UTI, though cultures returned w/ mixed growth. He received vancomycin and zosyn at the OSH; though given his worseningAMS, persistent fevers, tremors, ?myoclonos, he was transferred to the [facility] for further management. Patient was briefly in hospital medicine and then transfer to the MICU and intubated as he unable to protect his airway.He was empirically treated for meningitis.Patient is now back at his baseline. ?? Active Problems: Altered mental status Atrial fibrillation SUBJECTIVE/24H EVENTS -No acute events overnight -Has not attempted to eat his dysphagia diet. -States that he feels over all ok. -Afebrile since 5 AM. Medications: Reviewed in eDH OBJECTIVE Last value Range last 24 hrs Temperature Temp: 36.8 ??C (98.2 ??F) Temp: [36.8 ??C (98.2 ??F)-37.5 ??C (99.5 ??F)] Heart Rate Heart Rate: 78 Heart Rate: [78-85] Blood Pressure BP: 145/78 BP: (118-145)/(63-78) Respiratory Rate Resp: 18 Resp: [16-25] SpO2 SpO2: 95 % SpO2: [93 %-97 %] Intake/Output Summary (Last 24 hours) at 12/26/2019 1259 Last data filed at 12/26/2019 0723 Gross per 24 hour Intake 500 ml Output 1020 ml Net -520 ml Patient Vitals for the past 168 hrs: Weight 12/25/19 0400 105.3 kg (232 lb 2.3 oz) 12/24/19 0000 108.9 kg (240 lb 1.3 oz) 12/23/19 0000 106 kg (233 lb 11 oz) 12/22/19 0400 105.5 kg (232 lb 9.4 oz) 12/21/19 0600 103.7 kg (228 lb 9.9 oz) 12/20/191956 103 kg (227 lb 1.2 oz) Admit wt: 103 kg Physical Exam: Constitutional: Oriented to person, place, and time. Well-developed and well- nourished. No acute distress. HENT: Normocephalic, atraumatic, moist mucous membranes, no cervical adenopathy Cardiovascular: Normal rate, regular rhythm, normal heart sounds and intact distal pulses. Exam reveals no gallop and no friction rub. No murmur heard. Pulmonary/Chest: Effort normal and breath sounds normal. No respiratory distress. No wheezes or rale. Abdominal: Soft. BSx4, NTND Neurological: Alert and oriented to person, place, and time.+ UE CWR ,bilateral LE weakness 4/5 Skin: Skin is warm and dry. No rash noted. No erythema. Psychiatric: Normal mood. Mask facies. LABS: Last 3 wbc, hgb, hct plt Recent Labs 12/26/1934512/25/1911512/24/19 1655 WBC 4.4 4.1 5.0 HGB 8.4* 9.1* 9.7* HCT 27.1* 27.7* 29.1* PLATELET 154 141* 149 Last 3 Lytes Recent Labs 12/26/1934512/25/1911512/24/19 0608 12/24/19 0038 NA 139 139 -- 133* K 4.4 3.8 4.2 3.9 CL 106 106 -- 100 CO2 26 23 -- 21* BUN 11 10 -- 10 CREATININE 0.79* 0.61* -- 0.64* Last 3 LFTs Recent Labs 12/26/1934512/24/19 0608 12/21/19 0000 AST 79* 76* 68* ALT 24 60* 69* ALKPHOS 129 140* 91 BILITOT 0.6 0.7 1.0 BILIDIR 0.2 0.5* 0.6* Last Ca, Mg, Phos Recent Labs 12/26/1934512/25/19 0116 12/24/19 0038 CALCIUM 8.5 8.2* 8.0* PHOS 3.4 2.8 2.9 MAGNESIUM 0.85 0.77 0.69 Last 3 Coags Recent Labs 12/20/19 1725 PT 14.7* INR 1.3 PTT 32 MICROBIOLOGY: BCx (12/23): pending COVID-19 (12/19): negative BCx (12/19): NGTD CMV IgM (12/19): negative HIV 1/2 Ab and Ag (12/23): negative CSF (12/20): - Negative Cryptococcal Antigen - Negative Fungal Culture - Negative HSV-1 and HSV-2 PCR - Negative Enterovirus PCR Tick Borne Panel (12/20): negative ?? PATHOLOGY: Peripheral Smear 12/24/19: DISCUSSION The patient's history of critical illness is noted and likely contributory to the hemogram findings.Bleeding should be investigated given the degree of polychromasia seen. Reticulated hemoglobin (RET-HE test offered under reticulocyte count) is a more sensitive indicator of current iron stores availab le for hemoglobin synthesis and can be ordered if clinically indicated. No schistocytes are apparenton this periperhal smear, however if there is clinical concern for hemolysis, correlation with additional laboratory testing is recommended; LDH, bilirubin, reticulocyte count, haptoglobin, DIC screen,and direct antiglobulin testing may provide a more definitive evaluation. The reported history of thrombocytopenia is noted, however??that abnormality appears to have essentially resolved itself at thetime of this study. ?? CSF Cytology: DISCUSSION Cerebrospinal fluid, lumbar: predominantly lymphocytes histiocytes; likely reactive. Should lymphomabe a clinical consideration, suggest LLS (lymphoma leukemia screen) studies.??LLS study is optimal for evaluation of abnormal lymphocytic infiltrates and blasts in fluid specimens. ?? IMAGING: CT Head 12/21/19: IMPRESSION Question bioccipital hypoattenuation (particularly on the LEFT), difficult to assess given extensivestreak artifact although appears slightly more conspicuous compared to prior CT 12/20/2019; pathology in this region cannot be excluded. No acute intracranial hemorrhage or mass effect identified. ?? ECHO 12/21/19: SUMMARY: 1. Rhythm: AF with RVR. 2. The left ventricular chamber size is normal. ??Mild concentric left ventricular hypertrophy is observed. ??Basal septal hypertrophy is observed (2 cm). ??Global left ventricular systolic function appears hyperdynamic. ??Ejection fraction is estimated to be 75%. ??There are no left ventricular segmental wall motion abnormalities. 3. The right ventricle is normal in size. ??Right ventricular global systolic function is normal. ??Pulmonary artery hypertension could not be assessed due to inadequate tricuspid regurgitation jet. 4. There is no hemodynamically significant valve disease. 5. There is mild dilatation of the aortic root (4.1 cm). 6. See remainder of report for additional findings. ? ASSESSMENT AND PLAN Mr. Su is a 64 yo male with a pmhx of Parkinson's Disease s/p DBS, DM-II, HTN, HLD, sensory neuropathy, previous suicide attempt with Sinemet (reported in Neurology telephone encounter from 08/23/19)?who presents as a transfer from [facility] following 4 days of AMS, worsening tremor, fever, general lethargy, and malaise. The OSH??diagnosed him with a suspected UTI, though cultures returned w/ mixed growth. He received vancomycin and zosyn at the OSH; though given his worsening AMS, persistent fevers, tremors, ?myoclonos, he was transferred to the [facility] for further management. ?? On arrival to the MICU on 12/19, patient was not following commands, extremely tremulous and febrile up to 102.7 F. Neurology was engaged on transfer, and there was concern for meningitis/encephalitis. As a result, Mr. Timbo Su was empirically started on CTX, ampicillin, vancomycin, and acyclovir (that have all been stopped given clinical improvement and negative infectious work-up). LP was largely unremarkable; though viral meningitis remained a consideration (VZV pending). MRI was not done given patient was intermittently febrile, and per MRI safety, his DBS + fevers are not compatible with MRI (electrical engineering draftsperson warning). A hematologic process also remains a consideration (given intermittent fevers and pancytopenia; now bicytopenic), though smear appears stable. Of note, his ICU course was also complicated by paroxysmal A Fib with RVR. He was continued on therapeutic lovenox, metoprolol, and diltiazem. We will need to engage the family and patient again to discuss risks and benefits of anti-coagulation. ?? In transfer to Hospital Medicine on 12/24, patient is currently alert with reasonable intact cognition, HDS, and markedly improved from admission. We will continue to monitor for intermittent fevers; etiology remains unclear. He was safely restarted on his sinemet and entacapone in the MICU. Neurology reports his Parkinsonian symptoms appear to be at his outpatient baseline and have signed-off. ?? Patient also remains with a dobhoff for tube feeding given original concern for aspiration and dysphagia. He was evaluated by [facility] on 12/24 who did not note overt risks of aspiration, though recommended trialing a dysphagia soft diet with the dobhoff in place (for now) to assess oropharyngeal strength. They will also follow this up with a modified barium swallow for confirmation next week. Based on thecurrent findings, PT has recommended inpatient acute rehabilitation, swing bed??when medically readyfor hospital discharge. ?? Otherwise, plan per below: Today Main Plan: -Barium Swallow -Remove Morris -If he tolerates PO today consider removing NG tomorrow -If pt tolerated PO switch rate control meds to long acting meds(orders pended) -Gave 2 G Mg for Mg <1 -Attempted to contact to discuss A/C but unable to. -Pending placement: Likely Saturday. #?Viral Meningitis #Fever of Unknown Origin - Monitor Temperature - No antiviral or antibiotics indicated given clinical improvement - BCx (12/23): pending - CSF panel (12/20): unremarkable - VZV pending - MRI was not done given patient was intermittently febrile, and per MRI safety, his DBS + fevers are not compatible with MRI (electrical engineering draftsperson warning) ?? #Parkinson's Disease w/ DBS device - Neurology has signed off; patient appears at outpatient baseline - If he becomes more rigid, increase Sinemet to 1 tab 5x/day - If he has dizziness, orthostatic hypotension, nausea, dyskinesias or hallucinations, reduce Sinemet to 1 tab TID - If symptoms persist or fluctuate, do not hesitate to call - Continue: Sinemet 25-250 mg QID - Continue: Entacapone 200 mg TID ?? #Paroxysmal Atrial Fibrillation w/ RVR #Chronic HFpEF - Continue: diltiazem 60 mg Q6H - Continue: metoprolol tartrate 37.5 mg Q6H - Continue: enoxaparin 110 mg BID (discuss anti-coagulation risks/benefits w/ family) - Continue: atorvastatin 10 mg QPM -Mg >1,K>4 ?? #Previous Pancytopenia (2/2 unclear etiology), resolving #Normocytic Anemia - OSH B12 and Folate WNL - OSH iron studies c/w AOCD - Smudge cells were indicated on CBC, peripheral smear reviewed (stable) - SPEP not resulted - CRP and LDH were elevated - If patient continues to fever MICU recommended: - Evaluation by Hematology; and possible non-contrast CT of Chest - Continue to trend ?? #Type II Diabetes - Sensitive SSI Q4H - Hold: home glipizide 5 mg BID - Hold: home metformin 1,000 mg BID ?? #HTN - Hold: home lisinopril 40 mg daily ?? #Depression - Hold: duloxetine 30 mg TID ?? #?Hx of Overactive Bladder - Removef Morris Catheter - Hold: home mirabegron 25 mg Daily ? #Housekeeping DVT Prophylaxis: Therapeutic Lovenox Diet: Tube feeds + Attempting Dysphagia Soft Diet GI Prophylaxis: Pantoprazole 40 mg Daily (12/24) Disposition: pending course Code Status: Full Code ?? He Márquez MD Internal Medicine Resident, PGY-2 12/26/19 12:59 PM Associated attestation - Magali Lopez MD - 12/26/2019 1:37 PM EDT Attending Attestation Please see resident's note for details of the patient history [...] of two midnights or is on the CMS inpatient only procedure list (status C) due to: PKD with dysphagia attempting to advance diet and remove NGT. If tolerates lunch today will remove NGT and continue dysphagia soft with crushed meds. Magali Jo MD - 12/25/2019 9:59 AM EDT MICU STAFF PROGRESS NOTE Critical Care Medicine Author: Magali Jo MD Patient seen and examined on critical care rounds. Brief HPI: Timbo Su is a 64 y.o. man with history of advanced Parkinson's disease managed withdeep brain stimulator and medications now in the ICU with acute on chronic encephalopathy and unexplained fevers. He has not improved despite therapy with antibiotics. Multiple etiologies under consideration. Active Problem and Important Diagnoses: ?? Acute encephalopathy ?? Atrial fibrillation with rapid ventricular response ?? Fever ?? Parkinsonism ?? Thrombocytopenia ?? Leukopenia ?? Abnormal liver test ?? Elevated ferritin ASSESSMENT, MANAGEMENT, and DECISION MAKING: Mental status is much improved, but sleepy for my visit. DBS adjusted by Neurology. Good heart rate control. Continue metoprolol and diltiazem. Did not pass swallow evaluation so started on enteric feeds. Temperature is down over all. Viral meningitis is a consideration. With a Tmax of only 38 for that last 24 hours. VZV in process. On acyclovir, but VZV felt unlikely. Stable smear review in process. SPEP not resulted. CRP and LDH were elevated. If fever continue recommend evalaution by hematology and possible non- contrast CT of chest. Might repeat CRP in a few days to see if it trending down. No longer with ICU needs as much as I would like to understand his fever more. EXAM: Physical Exam Constitutional: He is sleeping and cooperative. Eyes: Pupils are equal, round, and reactive to light. Cardiovascular: Normal heart sounds. An irregular rhythm present. Tachycardia present. Pulmonary/Chest: Effort normal and breath sounds normal. Abdominal: Soft. He exhibits no distension. Neurological: He exhibits abnormal muscle tone. Skin: Skin is warm and dry. Last value Range last 24 hrs Temperature Temp: 37.9 ??C (100.2 ??F) Temp: [37.2 ??C (99 ??F)-38.1 ??C (100.6 ??F)] Heart Rate Heart Rate: 86 Heart Rate: [79-124] Blood Pressure BP: (!) 137/108 BP: (87-137)/(51-108) Respiratory Rate Resp: 24 Resp: [18-27] SpO2 SpO2: 98 % SpO2: [92 %-99 %] Art BP BP (Arterial Line): -- Last Ht 12/20/19 180.3 cm (5' 10.98) Last Wt 12/25/19 105.3 kg (232 lb 2.3 oz) Body mass index is 32.39 kg/m??. IS PATIENT CRITICALLY ILL ? Is there a high potential of sudden, clinically significant, or life threatening deterioration? No Is there a need for direct personal assessment and management to treat/prevent multiple vital organfailure/deterioration? No If this patient is not critically ill, I certify the patient requires continued in-patient hospitalization for: Fever work up PATIENT IS CRITICALLY ILL WITH THESE DIAGNOSES BEING MANAGED BY [facility] TEAM: Encephalopathy Acute I personally performed 25 minutes of aggregate critical care time exclusive of procedures and teaching. This includes time spent during direct patient evaluation and reassessment, interpreting diagnostic tests, directing life and/or organ supporting interventions and documentation on the unit. Magali Jo MD, PhD 12/25/2019 Daniel Mooney MD - 12/25/2019 9:14 AM EDT Neurology Consult Progress Note - 12/25/2019 PCP: Griselda Stanley MD Attending: Magali Jo MD ID: Timbo Su is a 64 y.o. male with PMHx of advanced Parkinson's disease (s/p DBS and follows with Dr. Vishnu Hooper in neurology clinic), DM, HTN, HLD, neuropathy who was transferred from [facility] for further evaluation of worsening mental status in the setting of fevers of unknown origin. Interval Hx / Subjective: - Extubated, much clearer today - DBS reset to home settings - Back on acyclovir - No fevers overnight - Neurologic exam much improved Current Medications: Scheduled Meds: ??? melatonin 3 mg Oral Nightly ??? acyclovir 875 mg Intravenous Q8H ??? metoprolol tartrate 37.5 mg Oral Q6H ENA ??? insulin lispro 1-5 Units Subcutaneous Q4H ENA ??? dilTIAZem 60 mg Oral Q6H ENA ??? enoxaparin 110 mg Subcutaneous 2 times per day ??? famotidine 20 mg Oral BID ??? polyethylene glycol (MIRALAX)oral powder 17 g Oral Daily ??? senna-docusate 2 tablet Oral BID ??? chlorhexidine 15 mL Oral BID ??? atorvastatin 10 mg Oral QPM ??? sodium chloride 0.9 % (flush) 5 mL Intravenous BID ??? carbidopa-levodopa 1 tablet Oral 4 Times Daily ??? entacapone 200 mg Oral TID Continuous Infusions: ??? tube feeding diet 60 mL/hr at 12/25/19 0800 PRN Meds:.Glucose 40% oral gel OR dextrose 10% OR glucagon (human recombinant), acetaminophen, sodium chloride 0.9 % (flush), lidocaine Physical Exam: Vitals: Last value Range last 24 hrs Temperature Temp: 37.9 ??C (100.2 ??F) Temp: [37.2 ??C (99 ??F)-38.1 ??C (100.6 ??F)] Heart Rate Heart Rate: 86 Heart Rate: [79-124] Blood Pressure BP: (!) 137/108 BP: (87-137)/(51-108) Respiratory Rate Resp: 24 Resp: [18-27] SpO2 SpO2: 98 % SpO2: [92 %-99 %] I/O: 12/23 0701 - 12/24 0700 In: 2465 [I.V.:493] Out: 2885 [Urine:2885] General: Appears stated age, WDWN, sedated HEENT: NC/AT, intubated Pulm: Ventilated CV: Intermittently irregular rhythm on monitor Extremities: No C/C/E. Peripheral pulses intact. Neuro: MS: Alert, follows commands appropriately and crosses midline Orientation not assessed today; previously oriented to place ([facility]), month andyear. Speech: Fluent, no dysarthria or paraphasic errors, no significant hypophonia CN: CN II, III, IV, - PERRLA, EOMI without nystagmus CN VII - No facial asymmetry, moderate hypomimia CN VIII - Hearing intact to voice Motor: Normal bulk, mild cogwheeling rigidity (R baseline and with disinhibiting maneuvers, L disinhibiting maneuvers only). Slightly increased tone bilateral ankles. Moves all extremities spontaneously and purposefully (formal strength to confrontation not assessed, but limited antigravity strength noted at shoulders) Bradykinesia noted bilaterally, L>R (hands and feet) Sensory: Intact to light touch throughout Reflexes (R/L): Not assessed Coordination: FNF intact, no dysmetria; slight intention tremor noted on L>R with finger extension. Heel-srinivasan not assessed Gait: Not assessed. Labs: Recent Results (from the past 24 hour(s)) POCT Glucose Result Value Ref Range POC Glucose 216 (H) 65 - 199 mg/dL POCT Glucose Result Value Ref Range POC Glucose 163 65 - 199 mg/dL Sedimentation rate Result Value Ref Range Sed Rate 50 (H) 2 - 37 mm/hr CRP, acute inflammation Result Value Ref Range CRP 59.1 (H) <=4.9 mg/L Lactate Dehydrogenase Result Value Ref Range LDH 345 (H) 110 - 220 unit/L Peripheral Smear Review Result Value Ref Range Periph Smear Rev See Comment HIV Screen, 4th Generation ([facility]/CGP/APD) Result Value Ref Range HIV-1/2 Ab and Ag Negative Negative Immunoglobulins, Quantitative Result Value Ref Range IgG 1,203 700 - 1,600 mg/dL IgA 482 (H) 70 - 400 mg/dL IgM 141 40 - 230 mg/dL Protein Electrophoresis, serum Result Value Ref Range Total Prot Elec 5.8 (L) 6.1 - 8.0 gm/dL Hemogram Result Value Ref Range WBC 5.0 4.0 - 9.5 x10(3)/mcL RBC 3.22 (L) 4.58 - 5.54 x10(6)/mcL Hemoglobin 9.7 (L) 13.7 - 16.5 gm/dL Hematocrit 29.1 (L) 40.5 - 48.5 % MCV 90.4 82.9 - 93.1 fL MCH 30.1 27.5 - 32.1 pg MCHC 33.3 32.0 - 35.7 gm/dL Platelets 149 145 - 357 x10(3)/mcL RDWSD 49.0 (H) 36.0 - 45.0 fL RDWCV 14.7 (H) 11.4 - 13.8 % MPV 11.1 7.6 - 12.9 fL nRBC % Auto 0.0 % nRBC Abs Auto 0.000 0.000 - 0.000 x10(3)/mcL Differential, Automated Result Value Ref Range Neutrophils % 36.8 % Neutr Abs (ANC) 1.84 1.70 - 6.10 x10(3)/mcL Lymphocytes % 52.0 % Lymphocytes Abs 2.6 0.9 - 3.2 x10(3)/mcL Monocytes % 9.0 % Monocyte Abs 0.4 0.3 - 0.9 x10(3)/mcL Eosinophils % 0.2 % Eosinophils Abs 0.0 0.0 - 0.4 x10(3)/mcL Basophils % 0.6 % Basophils Abs 0.0 0.0 - 0.1 x10(3)/mcL Immature Gran % 1.40 % Anneliese Gran Abs 0.07 (H) 0.00 - 0.04 x10(3)/mcL Scan, Peripheral Blood Result Value Ref Range Plat Estimate Normal RBC Morphology Abnormal Polychromasia Present >5/HPF Smudge Cells Present POCT Glucose Result Value Ref Range POC Glucose 204 (H) 65 - 199 mg/dL POCT Glucose Result Value Ref Range POC Glucose 170 65 - 199 mg/dL Basic Metabolic Panel (non-fasting) Result Value Ref Range Glucose Lvl 167 65 - 199 mg/dL BUN 10 10 - 20 mg/dL Creatinine 0.61 (L) 0.80 - 1.50 mg/dL Sodium 139 135 - 145 mmol/L Potassium 3.8 3.5 - 5.0 mmol/L Chloride 106 98 - 107 mmol/L CO2 23 22 - 31 mmol/L Anion Gap 10 5 - 15 mmol/L Calcium 8.2 (L) 8.5 - 10.5 mg/dL eGFR 106 >=60 mL/min/1.73 m?? eGFR 122 >=60 mL/min/1.73 m?? Magnesium Result Value Ref Range Magnesium 0.77 0.69 - 1.07 mmol/L Phosphorus Result Value Ref Range Phosphorus 2.8 2.5 - 4.5 mg/dL Hemogram Result Value Ref Range WBC 4.1 4.0 - 9.5 x10(3)/mcL RBC 3.05 (L) 4.58 - 5.54 x10(6)/mcL Hemoglobin 9.1 (L) 13.7 - 16.5 gm/dL Hematocrit 27.7 (L) 40.5 - 48.5 % MCV 90.8 82.9 - 93.1 fL MCH 29.8 27.5 - 32.1 pg MCHC 32.9 32.0 - 35.7 gm/dL Platelets 141 (L) 145 - 357 x10(3)/mcL RDWSD 49.0 (H) 36.0 - 45.0 fL RDWCV 14.8 (H) 11.4 - 13.8 % MPV 11.2 7.6 - 12.9 fL nRBC % Auto 0.0 % nRBC Abs Auto 0.000 0.000 - 0.000 x10(3)/mcL Differential, Automated Result Value Ref Range Neutrophils % 38.1 % Neutr Abs (ANC) 1.57 (L) 1.70 - 6.10 x10(3)/mcL Lymphocytes % 49.0 % Lymphocytes Abs 2.0 0.9 - 3.2 x10(3)/mcL Monocytes % 9.5 % Monocyte Abs 0.4 0.3 - 0.9 x10(3)/mcL Eosinophils % 1.0 % Eosinophils Abs 0.0 0.0 - 0.4 x10(3)/mcL Basophils % 0.5 % Basophils Abs 0.0 0.0 - 0.1 x10(3)/mcL Immature Gran % 1.90 % Anneliese Gran Abs 0.08 (H) 0.00 - 0.04 x10(3)/mcL Scan, Peripheral Blood Result Value Ref Range Plat Estimate Decreased RBC Morphology Abnormal Microcytes 1-5 /HPF Hypochromia Slight Polychromasia Present >5/HPF Smudge Cells Present POCT Glucose Result Value Ref Range POC Glucose 177 65 - 199 mg/dL POCT Glucose Result Value Ref Range POC Glucose 168 65 - 199 mg/dL Diagnostic Tests and Imaging: CT Head (12/21/2019): Question bioccipital hypoattenuation (particularly on the LEFT), difficult to assess given extensivestreak artifact although appears slightly more conspicuous compared to prior CT 12/20/2019; pathologyin this region cannot be excluded. No acute intracranial hemorrhage or mass effect identified. Dental disease. Assessment and Plan: Timbo Su is a 64 y.o. male with PMHx of advanced Parkinson's disease (s/p DBS and follows withDrKush Hooper in neurology clinic), DM, HTN, HLD, neuropathy who was transferred from [facility] for further evaluation of worsening mental status in the setting of fevers of unknown origin. 12/24: Following extubation yesterday, patient was found to be alert with reasonably intact cognition; following DBS reset to home setting, his Parkinson's symptoms appear to be well-controlled. I suspect that his mental status has improved in the absence of sedating meds and fever, which should continue to be worked up. However, at this point we would not consider his condition to be consistent with HSV encephalitis, so acyclovir could be reasonably discontinued at this time. We will sign off at this time; his Parkinson's symptoms appear to be at his outpatient baseline. If there is a change in his status or other questions about his medication arise, feel free to re-engage. Recommendations: - F/u CSF cytopathology - Continue home Sinemet and entacapone - If he becomes more rigid, increase Sinemet to 1 tab 5x/day - If he has dizziness, orthostatic hypotension, nausea, dyskinesias or hallucinations, reduce Sinemet to 1 tab TID - If symptoms persist or fluctuate, do not hesitate to call. - PT/OT ?? Consult service will continue to follow patient. X Recommendations are above, please page [phone] if further consultation required. Daniel Mooney MD Neurology, PGY-3 Consult Neurology Service #[id number] 12/25/2019 Associated attestation - Koko Chester MD - 12/25/2019 1:26 PM EDT Neurology Attending Note I certify that I have seen and examined and discussed Timbo Su on 12/25/[address] Mooney, Resident Physician. The note reflects the patient's history of presentation, subjective findings,and physical findings. The assessment and plan were formulated together in discussion and I have pers onally reviewed all relevant studies. Ceasar Chester MD Department of Neurology [facility] [email or web address] Pager [phone] Emerita Sandhu MD - 12/25/2019 6:48 AM EDT Critical Care Progress Note Patient Name: Timbo Su Date of Admission: 12/20/2019 ( Hospital Day 5 days ) Service: Critical Care Medicine - Blue Team 1 #[id number] ID: 64 y/o man with advanced Parkinson's disease s/p DBS, HTN, DM and hyperlipidemia who was admitted to [facility] 3 days ago with worsening hallucinations and encephalopathy, worsening tremor, and fevers, with course complicated by atrial fibrillation w/ RVR. Interval Events: -Extubated yesterday, afebrile since, uneventful last 24hr -Hemodynamics: HDS without pressor needs, rates controlled with dilt 10 and metop 37.5 mg q6 -Vent settings: PS (8/5), FiO2 25, RR 22-29 -UOP: 1.175L total, net pos 1.9L yesterday, up 6.5L total since admission -Reports feeling well, having some sputum but able to cough. Access: Peripheral IV Line - Single Lumen 12/20/19 1600 cephalic vein (lateral side of arm), right 20 gauge (Active) Peripheral IV Line - Single Lumen 12/20/19 1800 cephalic vein (lateral side of arm), left 18 gauge;1in length (Active) Peripheral IV Line - Single Lumen 12/20/19 cephalic vein (lateral side of arm), left 20 gauge (Active) DHT Scheduled Meds: ??? melatonin 3 mg Oral Nightly ??? acyclovir 875 mg Intravenous Q8H ??? metoprolol tartrate 37.5 mg Oral Q6H ENA ??? insulin lispro 1-5 Units Subcutaneous Q4H ENA ??? dilTIAZem 60 mg Oral Q6H ENA ??? enoxaparin 110 mg Subcutaneous 2 times per day ??? famotidine 20 mg Oral BID ??? polyethylene glycol (MIRALAX)oral powder 17 g Oral Daily ??? senna-docusate 2 tablet Oral BID ??? chlorhexidine 15 mL Oral BID ??? atorvastatin 10 mg Oral QPM ??? sodium chloride 0.9 % (flush) 5 mL Intravenous BID ??? carbidopa-levodopa 1 tablet Oral 4 Times Daily ??? entacapone 200 mg Oral TID Continuous Infusions: ??? tube feeding diet 60 mL/hr at 12/25/19 0800 PRN Meds:.Glucose 40% oral gel OR dextrose 10% OR glucagon (human recombinant), acetaminophen, sodium chloride 0.9 % (flush), lidocaine Physical Exam: Last value Range last 24 hrs Temperature Temp: 37.9 ??C (100.2 ??F) Temp: [37.2 ??C (99 ??F)-38 ??C (100.4 ??F)] Heart Rate Heart Rate: 86 Heart Rate: [79-124] Blood Pressure BP: (!) 137/108 BP: (87-137)/(53-108) Respiratory Rate Resp: 24 Resp: [18-27] SpO2 SpO2: 98 % SpO2: [92 %-99 %] General: AOx3, comfortable, flat affect Neuro: pupils 3cm equal, round, reactive. Following commands,, +rigidity ruby UE/LE, +clonus Lungs: CTAB, no wheezes/rales/rhonci Heart: IRIR, no murmurs Abdomen: soft, protuberant Extremities: warm, well perfused, pulses 2+ ruby U/LE Skin: no rashes or ecchymosis ABG: Recent Labs 12/21/19 0009 PHART 7.43 [id number] 36 PO2ART 95 NAP0SSX 23.4 Ins/Outs: Intake/Output Summary (Last 24 hours) at 12/25/2019 1007 Last data filed at 12/25/2019 0800 Gross per 24 hour Intake 2136 ml Output 2525 ml Net -389 ml Patient Vitals for the past 168 hrs: Weight 12/25/19 0400 105.3 kg (232 lb 2.3 oz) 12/24/19 0000 108.9 kg (240 lb 1.3 oz) 12/23/19 0000 106 kg (233 lb 11 oz) 12/22/19 0400 105.5 kg (232 lb 9.4 oz) 12/21/19 0600 103.7 kg (228 lb 9.9 oz) 12/20/19 1957 103 kg (227 lb 1.2 oz) Vent settings: Oxygen Therapy O2 Device: None (Room air) O2 Flow Rate (L/min): 2 L/min FiO2 (%): 25 % Labs: Recent Labs 12/25/19 0116 12/24/19 1655 12/24/19 0038 WBC 4.1 5.0 5.5 HGB 9.1* 9.7* 9.8* HCT 27.7* 29.1* 28.8* PLATELET 141* 149 136* Recent Labs 12/25/19 0116 12/24/19 0608 12/24/19 0038 12/23/19 0020 NA 139 -- 133* -- 135 K 3.8 4.2 3.9 < > Not Perf CL 106 -- 100 -- 102 CO2 23 -- 21* -- 22 BUN 10 -- 10 -- 11 CREATININE 0.61* -- 0.64* -- 0.72* < > = values in this interval not displayed. Recent Labs 12/24/19 0608 12/21/19 0000 12/20/19 1725 AST 76* 68* 76* ALT 60* 69* 71* ALKPHOS 140* 91 100 BILITOT 0.7 1.0 1.3 BILIDIR 0.5* 0.6* 0.7* Recent Labs 12/25/19 0116 12/24/19 0038 12/23/19 0020 CALCIUM 8.2* 8.0* 8.2* MAGNESIUM 0.77 0.69 0.78 PHOS 2.8 2.9 2.6 Recent Labs 12/20/19 1725 INR 1.3 PT 14.7* PTT 32 Recent Labs 12/22/19 0115 12/21/19 0000 12/20/19 1725 CK 126 288* 447* ESR 50 CRP 59.1 LDH 345 immunolgobulins showed mildly elevated IgA 482 only peripheral smear pending SPEP pending Microbiology: COVID-19 negative 12/19 BCx 12/19 NGTD CSF: -culture NGTD -fungal culture NGTD -HSV1/2 PCR neg -Cryptococcal Ag neg -VZV pending -Lyme neg -Enterovirus neg Acute tick borne panel neg for borrelia miyamotoi, babesia, ehrlichia, anaplasma Imaging/Studies: None new Assessment: 64 y/o man with advanced Parkinson's disease s/p DBS, HTN, DM and hyperlipidemia who [facility] with worsening hallucinations and encephalopathy, worsening tremor, and fevers. Significantly improved. Suspect undetected viral meningitis v meningeal irritation, less likely drugeffect given time course. Fevers over last few days likely from SIRS response to ?aspiration v adrenergic effect of being intubated, now resolved. Rates well controlled. Still needs long-term AC GOC discussion. Ready for transfer to Neuro or Hospital medicine. Summary of Today's Plan (12/25/19): -F/u peripheral smear / SPEP -continue to monitor counts -transfer to Neurology v [facility] Neuro: #Possible Viral meningitis v drug effect - resolved -Neg for HSV/enterococus, all other infectious testing negative -f/u VZV, low suspicion - s/p Acyclovir (12/19-12/21), ampicillin 12/19-12/20, vancomycin (12/19-12/20), ceftriaxone (12/19 - 12/22) - Significantly improved - No urgent need for MRI brain at this point - Consider transfer to Neurology service [facility] #Sedation -Wean prop as able to extubate ?? #Depression -Holding home cymbalta, consider restarting when out of ICU setting Pulm #Respiratory alkalosis - resolved #Ventilated for airway protection - saturating well on room air ?? CV #Paroxysmal Atrial Fibrillation with RVR - resolved, pAF controlled #Chronic HFpEF - dilt 60 mg PO q6h, wean dilt ggt - metop 37.5 mg q6h, uptitrate as needed - -therapeutic lovenox -GOC discussion re AC prior to discharge ?? #Hypertension -Home meds: lisinopril 40, HCTZ 25, metop 100 BID -hold home antihypertensives #HLD -Lipitor for home simvastatin GI #Transaminitis - Noted to be a baseline issue noted on outpatient documentation - Continue to trend INR, LFTs - tube feeds ?? /FEN #Electrolyte Optimization - K>4 - Mg >1 #Nutrition -Tube feeds at goal -c/s to nutrition ?? #Elevated CK, Concern for muscle breakdown/rhabdo - resolved -continue to trend ?? ID #Concern for viral Meningitis #Fever of Unknown Origin -Non-HSV/VZV/Enterovirus -ESR/CRP, LDH, HIV, peripheral smear -Consider autoimmune causes -Routine EEG -SPEP, serum immunoglobulins ?? Heme #Pancytopenia, ?MDS #Normocytic anemia - OSH B12/folate wnl - Iron studies c/w anemia of chronic disease - Continue to monitor -Smudge cell on CBC, obtain peripheral smear - Appears to be chronic - Could be exacerbated by infection - Continue to trend ?? Endo #Type 2 Diabetes - SSI - Hold home glipizide ? Misc Code status: Full Code Dispo: MICU DVT PPx - therapeutic lovenox Nutrition - tube feeds GI: Famotidine Chaofan Yuan, MD Internal Medicine PGY-1 Blue Team 1, Team Pager # [phone] - 12/24/2019 1:56 PM EDT Nutrition Progress Note Timbo Su is a 64 y.o. male with advanced Parkinson's disease s/p DBS, HTN, DM and hyperlipidemia who was admitted to [facility] 3 days ago with worsening hallucinations and encephalopathy, worsening tremor, and fevers, with course complicated by atrial fibrillation w/ RVR. Reason for intervention: Follow up and ICU Tube-feeding Nutrition Recommendations: Propofol OFF. Yesterday received 86% of daily goal volume for enteral feeds. TFs presently off. Increase goal rate to 80 ml/hr of Peptamen AF. Rate adjusted to compensate for unplanned time off TFs 2/2 treatments, procedures, etc At goal: 1600 ml, 1920 calories, 122 grams protein, 1293 ml water from formula and 100% RDIs for vitamins and minerals. I was not able to discuss with patient's provider. Team paged with nutrition recommendations. Pager # [phone]. All Active TF Orders: Peptamen AF with a goal rate of 62 ml per hour. This rate is calculated to compensate for unplanned time off feedings due to potential procedures, etc. At goal, this will provide 1240 ml formula, 1488 calories, 93 grams protein, 1005 ml water from formula and 99% of RDI's for vitamins and minerals. Enteral access: OGT Oxygen Therapy/airway: O2 Device: Nasal cannula Lab Results Component Value Date NA 133 (L) 12/24/2019 K 4.2 12/24/2019 CL 100 12/24/2019 CO2 21 (L) 12/24/2019 BUN 10 12/24/2019 CREATININE 0.64 (L) 12/24/2019 GFRAA 120 12/24/2019 MAGNESIUM 0.69 12/24/2019 CALCIUM 8.0 (L) 12/24/2019 PHOS 2.9 12/24/2019 AST 76 (H) 12/24/2019 ALT 60 (H) 12/24/2019 ALKPHOS 140 (H) 12/24/2019 BILITOT 0.7 12/24/2019 BILIDIR 0.5 (H) 12/24/2019 TRIG 369 12/22/2019 IRON 21 (L) 12/21/2019 Lab Results Component Value Date POCGLU 216 (H) 12/24/2019 POCGLU 228 (H) 12/24/2019 POCGLU 180 12/24/2019 POCGLU 183 12/23/2019 Skin Status: Shift Pressure Injury Prevention Occiput: No Injury Thoracic Spine: No Injury Sacral: Redness, Blanchable Ischial - left: No Injury Ischial - right: No Injury Heel - left: No Injury Heel - right: No Injury Elbow - left: No Injury Elbow - right: No Injury Device Sites: ETT, OG, O2 sat monitor, wrist restraints, IV sites, morris, ECG Leads, BP Cuff Other Sites: ID band Relevant medications: liquid tylenol, lispro, sinemet, others noted Last Bowel Movement: 12/24/19 I/O from last 2 shifts: Intake/Output Summary (Last 24 hours) at 12/24/2019 1356 Last data filed at 12/24/2019 1000 Gross per 24 hour Intake 3342 ml Output 1680 ml Net 1662 ml Admit Weight: 103 kg Estimated body mass index is 33.5 kg/m?? as calculated from the following: Height as of 12/21/19: 180.3 cm (5' 10.98). Weight as of this encounter: 108.9 kg (240 lb 1.3 oz). 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 Estimated needs: Calories: 1950 (25 kcal/kg IBW) Protein: 93-117 grams (1.2-1.5 g/kg IBW) Tolerance or barriers to meeting needs: TF holds Nutrition Focused Physical Exam (NFPE): Not performed Protein-calorie Malnutrition: Not identified (Rey, BELKIS J Parenteral Enteral Nutr. 2011;36(3): 273-83) Nutrition to continue to follow up while inpatient BEBE JAEGER Pager #: [phone] Griselda Burrell RN - 12/24/2019 11:34 AM EDT Office of Care Management Progress/Care Transition Note Chart reviewed; patient discussed with interdisciplinary critical care team and in AM ICU nursing huddle. Mr. Su remains ICU level of care (intubated and mechanically ventilated) who has H advanced Parkinson's disease managed with deep brain stimulator (DBS) and medications. He was accepted as transfer from [facility] 12/20/2019. This is Hospital Day #4. In addition, active problems include acute on chronic encephalopathy and unexplained fevers. Mr. Su has not demonstrated clinical improvement in setting of IV abx. It is unclear why he has not responded to IV anti-infective; several etiologies are being considered. MRI study recommended by Neurology but patient has had persistent fevers. Given DBS, a concern exists for burn. Neuro exam this AM improved (he is able to follow some commands). Remains in a-fib, controlled with dilt gtt and po metoprolol. Discharge planning to date: Pending clinical outcome and PT/OT evals (he may benefit from rehab inpatient stay prior to return home). OCM RNCM will continue to monitor patient's progress with the medical plan of care and to support the patient/family during care transition. LONI Knight Pgr: [phone] Magali Ballard MD - 12/24/2019 10:56 AM EDT MICU STAFF PROGRESS NOTE Critical Care Medicine Author: Magali Jo MD Patient seen and examined on critical care rounds. Brief HPI: Timbo Su is a 64 y.o. man with history of advanced Parkinson's disease managed withdeep brain stimulator and medications now in the ICU with acute on chronic encephalopathy and unexplained fevers. He has not improved despite therapy with antibiotics. Multiple etiologies under consideration. Active Problem and Important Diagnoses: ?? Acute encephalopathy ?? Atrial fibrillation with rapid ventricular response ?? Fever ?? Parkinsonism ?? Thrombocytopenia ?? Leukopenia ?? Abnormal liver test ?? Elevated ferritin ASSESSMENT, MANAGEMENT, and DECISION MAKING: Mental status. Calm on spontaneous wakening trial. Passed spontaneous breathing trial. Extubated without early complications. Rate is controlled. Will try to convert to an oral regimen. Fevers continue. Will follow after extubation. Unable to get MRI. Some studies pending. VZV unlikelybut okay to resume acyclovir while waiting for tests to return. If not able to swallow he will need a feeding tube. Noting his cytopenia and smudge cell myelodysplasia and CLL are considered. Will do some basic evaluation. He may require input from hematology. In isolation labs and temperature make be think of mononuclosis, but this is not the right host. EXAM: Physical Exam Constitutional: He is cooperative. He is easily aroused. He is intubated. Eyes: Pupils are equal, round, and reactive to light. Cardiovascular: Normal heart sounds. An irregular rhythm present. Tachycardia present. Pulmonary/Chest: Effort normal and breath sounds normal. He is intubated. Abdominal: Soft. He exhibits no distension. Neurological: He is easily aroused. He exhibits abnormal muscle tone. GCS eye subscore is 4. GCS verbal subscore is 5. GCS motor subscore is 6. Skin: Skin is warm and dry. Last value Range last 24 hrs Temperature Temp: (!) 38.1 ??C (100.6 ??F) Temp: [37.6 ??C (99.7 ??F)-38.7 ??C (101.7 ??F)] Heart Rate Heart Rate: 95 Heart Rate: [73-141] Blood Pressure BP: 106/60 BP: (83-129)/(51-82) Respiratory Rate Resp: 27 Resp: [19-29] SpO2 SpO2: 96 % SpO2: [93 %-98 %] Art BP BP (Arterial Line): -- Last Ht 12/20/19 180.3 cm (5' 10.98) Last Wt 12/24/19 108.9 kg (240 lb 1.3 oz) Body mass index is 33.5 kg/m??. IS PATIENT CRITICALLY ILL ? Is there a high potential of sudden, clinically significant, or life threatening deterioration? Yes Is there a need for direct personal assessment and management to treat/prevent multiple vital organfailure/deterioration? Yes If this patient is not critically ill, I certify the patient requires continued in-patient hospitalization for: NA PATIENT IS CRITICALLY ILL WITH THESE DIAGNOSES BEING MANAGED BY [facility] TEAM: Encephalopathy Acute I personally performed 50 minutes of aggregate critical care time exclusive of procedures and teaching. This includes time spent during direct patient evaluation and reassessment, interpreting diagnostic tests, directing life and/or organ supporting interventions and documentation on the unit. Magali Jo MD, PhD 12/24/2019 Daniel Mooney MD - 12/24/2019 10:00 AM EDT Neurology Consult Progress Note - 12/24/2019 PCP: Griselda Stanley MD Attending: Magali Jo MD ID: Timbo Su is a 64 y.o. male with PMHx of advanced Parkinson's disease (s/p DBS and follows with Dr. Vishnu Hooper in neurology clinic), DM, HTN, HLD, neuropathy who was transferred from [facility] for further evaluation of worsening mental status in the setting of fevers of unknown origin. Interval Hx / Subjective: - Off acyclovir and antibiotics - Febrile overnight, acetaminophen held - Neurologic exam moderately improved (stable level of sedation) Current Medications: Scheduled Meds: ??? metoprolol tartrate 25 mg Oral Q6H ENA ??? enoxaparin 110 mg Subcutaneous 2 times per day ??? famotidine 20 mg Oral BID ??? polyethylene glycol (MIRALAX)oral powder 17 g Oral Daily ??? senna-docusate 2 tablet Oral BID ??? chlorhexidine 15 mL Oral BID ??? insulin lispro 1-5 Units Subcutaneous Q6H ENA ??? atorvastatin 10 mg Oral QPM ??? sodium chloride 0.9 % (flush) 5 mL Intravenous BID ??? carbidopa-levodopa 1 tablet Oral 4 Times Daily ??? entacapone 200 mg Oral TID Continuous Infusions: ??? dilTIAZem in D5W 10 mg/hr (12/24/19 0633) ??? tube feeding diet 62 mL/hr at 12/23/19 2100 ??? propofoL 20 mcg/kg/min (12/24/19 0950) PRN Meds:.Glucose 40% oral gel OR dextrose 10% OR glucagon (human recombinant), acetaminophen, sodium chloride 0.9 % (flush), lidocaine, potassium chloride in water OR potassium chloride inwater OR potassium chloride in water Physical Exam: Vitals: Last value Range last 24 hrs Temperature Temp: (!) 38 ??C (100.4 ??F) Temp: [37.6 ??C (99.7 ??F)-38.7 ??C (101.7 ??F)] Heart Rate Heart Rate: 79 Heart Rate: [73-141] Blood Pressure BP: 116/63 BP: (83-129)/(50-82) Respiratory Rate Resp: 20 Resp: [19-29] SpO2 SpO2: 97 % SpO2: [93 %-97 %] I/O: 12/22 0701 - 12/23 0700 In: 3497 [I.V.:1373] Out: 1643 [Urine:1535] General: Appears stated age, WDWN, sedated HEENT: NC/AT, intubated Pulm: Ventilated CV: Intermittently irregular rhythm on monitor Extremities: No C/C/E. Peripheral pulses intact. Neuro: NB: Patient is intubated and sedated on propofol 20mcg/kg/min MS: Eyes not open, but follows some appendicular commands (wiggles fingers and toes) CN: CN II, III, IV, - PERRL, VOR not assessed. CN V, VII - Corneal reflex not assessed, face symmetric at rest. CN IX, X - Cough/gag reflex not reported Sensorimotor: Atrophy: None appreciated. Abnormal movements: No fasciculations or myoclonus. RUE LUE RLE LLE Spontaneous X X X X Localizes* Withdraws* Postures* No response* * to noxious stimuli. Reflexes: Deferred Coordination: Not assessed Gait: Not assessable Labs: Recent Results (from the past 24 hour(s)) POCT Glucose Result Value Ref Range POC Glucose 192 65 - 199 mg/dL Enterovirus PCR, CSF Result Value Ref Range Enterovirus PCR, Qualitative Negative Negative Potassium Result Value Ref Range Potassium 3.8 3.5 - 5.0 mmol/L POCT Glucose Result Value Ref Range POC Glucose 183 65 - 199 mg/dL POCT Glucose Result Value Ref Range POC Glucose 180 65 - 199 mg/dL Basic Metabolic Panel (non-fasting) Result Value Ref Range Glucose Lvl 191 65 - 199 mg/dL BUN 10 10 - 20 mg/dL Creatinine 0.64 (L) 0.80 - 1.50 mg/dL Sodium 133 (L) 135 - 145 mmol/L Potassium 3.9 3.5 - 5.0 mmol/L Chloride 100 98 - 107 mmol/L CO2 21 (L) 22 - 31 mmol/L Anion Gap 12 5 - 15 mmol/L Calcium 8.0 (L) 8.5 - 10.5 mg/dL eGFR 103 >=60 mL/min/1.73 m?? eGFR 120 >=60 mL/min/1.73 m?? Magnesium Result Value Ref Range Magnesium 0.69 0.69 - 1.07 mmol/L Phosphorus Result Value Ref Range Phosphorus 2.9 2.5 - 4.5 mg/dL Hemogram Result Value Ref Range WBC 5.5 4.0 - 9.5 x10(3)/mcL RBC 3.25 (L) 4.58 - 5.54 x10(6)/mcL Hemoglobin 9.8 (L) 13.7 - 16.5 gm/dL Hematocrit 28.8 (L) 40.5 - 48.5 % MCV 88.6 82.9 - 93.1 fL MCH 30.2 27.5 - 32.1 pg MCHC 34.0 32.0 - 35.7 gm/dL Platelets 136 (L) 145 - 357 x10(3)/mcL RDWSD 47.8 (H) 36.0 - 45.0 fL RDWCV 14.6 (H) 11.4 - 13.8 % MPV 11.1 7.6 - 12.9 fL nRBC % Auto 0.0 % nRBC Abs Auto 0.000 0.000 - 0.000 x10(3)/mcL Differential, Automated Result Value Ref Range Neutrophils % 38.5 % Neutr Abs (ANC) 2.13 1.70 - 6.10 x10(3)/mcL Lymphocytes % 52.0 % Lymphocytes Abs 2.9 0.9 - 3.2 x10(3)/mcL Monocytes % 7.4 % Monocyte Abs 0.4 0.3 - 0.9 x10(3)/mcL Eosinophils % 0.5 % Eosinophils Abs 0.0 0.0 - 0.4 x10(3)/mcL Basophils % 0.9 % Basophils Abs 0.0 0.0 - 0.1 x10(3)/mcL Immature Gran % 0.70 % Anneliese Gran Abs 0.04 0.00 - 0.04 x10(3)/mcL Scan, Peripheral Blood Result Value Ref Range Plat Estimate Decreased RBC Morphology Abnormal [place] Cells 1-5 /HPF Smudge Cells Present Potassium Result Value Ref Range Potassium 4.2 3.5 - 5.0 mmol/L POCT Glucose Result Value Ref Range POC Glucose 228 (H) 65 - 199 mg/dL Diagnostic Tests and Imaging: CT Head (12/21/2019): Question bioccipital hypoattenuation (particularly on the LEFT), difficult to assess given extensivestreak artifact although appears slightly more conspicuous compared to prior CT 12/20/2019; pathologyin this region cannot be excluded. No acute intracranial hemorrhage or mass effect identified. Dental disease. Assessment and Plan: Timbo Su is a 64 y.o. male with PMHx of advanced Parkinson's disease (s/p DBS and follows withDr. Vishnu Hooper in neurology clinic), DM, HTN, HLD, neuropathy who was transferred from [facility] for further evaluation of worsening mental status in the setting of fevers of unknown origin. 12/23: Cannot obtain MRI while patient is persistently febrile. On discussion yesterday, routine EEG might give a clue to HSV encephalitis (in the form of lateralized periodic discharges or LPDs), and it could give additional insight into his level of encephalopathy while he is still intubated (if sedation can be paused long enough prior). Otherwise, if HSV cannot be reassessed any other way, repeating his LP would be considered. VZV PCR is still pending, but in the absence of non-neurologic manifestations the risk of VZV encephalitis is fairly low. Recommendations: - F/u CSF cytopathology and VZV PCR - MRI Brain w/wo contrast when able - Consider EEG (awake, asleep, drowsy, routine) and/or repeat CSF HSV PCR. - Continue home Sinemet and entacapone; will await sedation wean and DBS reset for medication changes. ?? X Consult service will continue to follow patient. Recommendations are above, please page [phone] if further consultation required. ?? Daniel Mooney MD Neurology, PGY-3 Consult Neurology Service #[id number] 12/24/2019 Associated attestation - Koko Chester MD - 12/24/2019 4:00 PM EDT Neurology Attending Note I certify that I have seen and examined and discussed Timbo Su on 12/24/[address] Mooney, Resident Physician. The note reflects the patient's history of presentation, subjective findings,and physical findings. The assessment and plan were formulated together in discussion and I have pers onally reviewed all relevant studies. Ceasar Chester MD Department of Neurology [facility] [email or web address] Pager [phone] Ping Barboza RCP - 12/24/2019 7:40 AM EDT AMV Protocol: Yes SBT Protocol: Yes SBT: Vent Settings: Ventilator Mode: PS/CPAP PEEP Set: 5 FiO2: 25 % PSV: 8 Ventilator Measurements: Resp: 24 Vt Spontaneous: 607 Ve: 13.6 SpO2: 97 % EtCO2: 27 mmHg Airway: 8.0 @ 24 cm at the Teeth. Skin Integrity: WDL Breath Sounds: Clear/diminished Secretions: Minimal Assessment / Events / Plan of the Day: Pt received on the above vent settings. 1149 SBT passed without complication. 1305 pt extubated to 4 lpm nc. Positive cuff leak, positive phonation, good cough and no stridor noted. Continue to monitor and encourage cough and deep breathing exercises. PING BARBOZA RCP Emerita Sandhu MD - 12/24/2019 6:09 AM EDT Critical Care Progress Note Patient Name: Timbo Su Date of Admission: 12/20/2019 ( Hospital Day 4 days ) Service: Critical Care Medicine - Blue Team 1 #[id number] ID: 64 y/o man with advanced Parkinson's disease s/p DBS, HTN, DM and hyperlipidemia who was admitted to [facility] 3 days ago with worsening hallucinations and encephalopathy, worsening tremor, and fevers, with course complicated by atrial fibrillation w/ RVR. Interval Events: -Continues to have low grade temps, Tmax 101.7 -Hemodynamics: HDS without pressor needs, rates controlled with dilt 10 and metop 25mg q6 -Vent settings: PS (8/5), FiO2 25, RR 22-29 -UOP: 1.175L total, net pos 1.9L yesterday, up 6.5L total since admission -Had 1x regular BM yesterday Access: Peripheral IV Line - Single Lumen 12/20/19 1600 cephalic vein (lateral side of arm), right 20 gauge (Active) Peripheral IV Line - Single Lumen 12/20/19 1800 cephalic vein (lateral side of arm), left 18 gauge;1in length (Active) Peripheral IV Line - Single Lumen 12/20/19 cephalic vein (lateral side of arm), left 20 gauge (Active) OGT Scheduled Meds: ??? metoprolol tartrate 25 mg Oral Q6H ENA ??? enoxaparin 110 mg Subcutaneous 2 times per day ??? famotidine 20 mg Oral BID ??? polyethylene glycol (MIRALAX)oral powder 17 g Oral Daily ??? senna-docusate 2 tablet Oral BID ??? chlorhexidine 15 mL Oral BID ??? insulin lispro 1-5 Units Subcutaneous Q6H ENA ??? atorvastatin 10 mg Oral QPM ??? sodium chloride 0.9 % (flush) 5 mL Intravenous BID ??? carbidopa-levodopa 1 tablet Oral 4 Times Daily ??? entacapone 200 mg Oral TID Continuous Infusions: ??? dilTIAZem in D5W 10 mg/hr (12/24/19 0633) ??? tube feeding diet 62 mL/hr at 12/23/19 2100 ??? propofoL 20 mcg/kg/min (12/24/19 0950) PRN Meds:.Glucose 40% oral gel OR dextrose 10% OR glucagon (human recombinant), acetaminophen, sodium chloride 0.9 % (flush), lidocaine, potassium chloride in water OR potassium chloride inwater OR potassium chloride in water Physical Exam: Last value Range last 24 hrs Temperature Temp: (!) 38.1 ??C (100.6 ??F) Temp: [37.6 ??C (99.7 ??F)-38.7 ??C (101.7 ??F)] Heart Rate Heart Rate: 95 Heart Rate: [73-141] Blood Pressure BP: 106/60 BP: (83-129)/(51-82) Respiratory Rate Resp: 27 Resp: [19-29] SpO2 SpO2: 96 % SpO2: [93 %-98 %] General: intubated and sedated Neuro: pupils 3cm equal, round, reactive. Withdraws to noxious stimuli, no nuchal rigidity, no rigidity ruby UE/LE, +clonus Lungs: CTAB, no wheezes/rales/rhonci Heart: IRIR, no murmurs Abdomen: soft, protuberant Extremities: warm, well perfused, pulses 2+ ruby U/LE Skin: no rashes or ecchymosis ABG: Recent Labs 12/21/19 0009 PHART 7.43 [id number] 36 PO2ART 95 [id number] 23.4 Ins/Outs: Intake/Output Summary (Last 24 hours) at 12/24/2019 1058 Last data filed at 12/24/2019 1000 Gross per 24 hour Intake 3560 ml Output 1963 ml Net 1597 ml Patient Vitals for the past 168 hrs: Weight 12/24/19 0000 108.9 kg (240 lb 1.3 oz) 12/23/19 0000 106 kg (233 lb 11 oz) 12/22/19 0400 105.5 kg (232 lb 9.4 oz) 12/21/19 0600 103.7 kg (228 lb 9.9 oz) 12/20/19 1957 103 kg (227 lb 1.2 oz) Vent settings: Oxygen Therapy O2 Device: Ventilator O2 Flow Rate (L/min): 30 L/min FiO2 (%): 25 % Labs: Recent Labs 12/24/19 0038 12/23/19 0020 12/22/19 0115 WBC 5.5 3.8* 5.9 HGB 9.8* 9.6* 10.9* HCT 28.8* 27.7* 32.6* PLATELET 136* 157 117* Recent Labs 12/24/19 0608 12/24/19 0038 12/23/19 1700 12/23/19 0020 12/22/19 0115 NA -- 133* -- -- 135 136 K 4.2 3.9 3.8 < > Not Perf 4.3 CL -- 100 -- -- 102 99 CO2 -- 21* -- -- 22 21* BUN -- 10 -- -- 11 12 CREATININE -- 0.64* -- -- 0.72* 0.73* < > = values in this interval not displayed. Recent Labs 12/21/19 0000 12/20/19 1725 AST 68* 76* ALT 69* 71* ALKPHOS 91 100 BILITOT 1.0 1.3 BILIDIR 0.6* 0.7* Recent Labs 12/24/19 0038 12/23/19 0020 12/22/19 0115 CALCIUM 8.0* 8.2* 7.8* MAGNESIUM 0.69 0.78 0.88 PHOS 2.9 2.6 2.5 Recent Labs 12/20/19 1725 INR 1.3 PT 14.7* PTT 32 Recent Labs 12/22/19 0115 12/21/19 0000 12/20/19 1725 CK 126 288* 447* LP labs: 12/21/2019 14:32 12/21/2019 14:[address] 7 (H) RBC CSF CT 5 Neutrophil CSF 5 Lymphocyte CSF 85 Macrophage CSF 10 Glucose, CSF 94 T Protein, CSF 108 (H) Xanthochromia Neg Microbiology: COVID-19 negative 12/19 BCx 12/19 NGTD CSF: -culture NGTD -fungal culture NGTD -HSV1/2 PCR neg -Cryptococcal Ag neg -VZV pending -Lyme neg -Enterovirus neg Acute tick borne panel neg for borrelia miyamotoi, babesia, ehrlichia, anaplasma Imaging/Studies: MRI Brain pending Assessment: 64 y/o man with advanced Parkinson's disease s/p DBS, HTN, DM and hyperlipidemia who [facility] with worsening hallucinations and encephalopathy, worsening tremor, and fevers. Summary of Today's Plan (12/24/19): -Labs: ESR/CRP, LDH, peripheral smear, LFTs, HIV -Routine EEG -Restart acyclovir -SPEP, immunoglobulins -SBt/extubate Neuro: #Concern for Meningitis - s/p Acyclovir (12/19-12/21), ampicillin 12/19-12/20, vancomycin (12/19-12/20), ceftriaxone (12/19 - 12/22) - f/u VZV - F/u neuro checks. - Discuss with Neurology about expanding work-up. ?reactive DBS - Routine EEG per Neuro #Sedation -Wean prop as able to extubate ?? Pulm #Respiratory alkalosis - resolved #Ventilated for airway protection - Mechanical ventilation - Pressure support - Trend ABGs - SBT, trial extubation ?? CV #Atrial Fibrillation with RVR #Chronic HFpEF - dilt 60mg PO q6h, wean dilt ggt - metop 25mg q6h, uptitrate as needed -therapeutic lovenox -GOC discussion re AC prior to discharge ?? #Hypertension -Home meds: lisinopril 40, HCTZ 25, metop 100 BID -hold home antihypertensives #HLD -Lipitor for home simvastatin GI #Transaminitis - Noted to be a baseline issue noted on outpatient documentation - Continue to trend INR, LFTs - Diet: NPO diet (Give Meds) ?? /FEN #Electrolyte Optimization - K>4 - Mg >1 #Nutrition -Trickle tube feeds for now -c/s to nutrition ?? #Elevated CK, Concern for muscle breakdown/rhabdo - resolved -continue to trend ?? ID #Concern for viral Meningitis #Fever of Unknown Origin -Non-HSV/VZV/Enterovirus -ESR/CRP, LDH, HIV, peripheral smear -Consider autoimmune causes -Routine EEG -SPEP, serum immunoglobulins ?? Heme #Pancytopenia, ?MDS #Normocytic anemia - OSH B12/folate wnl - Iron studies c/w anemia of chronic disease - Continue to monitor -Smudge cell on CBC, obtain peripheral smear - Appears to be chronic - Could be exacerbated by infection - Continue to trend ?? Endo #Type 2 Diabetes - SSI - Hold home glipizide ? Misc Code status: Full Code Dispo: MICU DVT PPx - therapeutic lovenox Nutrition - tube feeds GI: Famotidine Emerita Sandhu MD Internal Medicine PGY-1 Blue Team 1, Team Pager # [phone] Fadumo Morris RT - 12/24/2019 2:26 AM EDT AMV Protocol: Yes SBT Protocol: Yes SBT: not performed due to A-Fib Vent Settings: Ventilator Mode: PS/CPAP PEEP Set: 5 FiO2: 25 % PSV: 8 Ventilator Measurements: Resp: 29 Vt Spontaneous: 631 Ve: 13.8 SpO2: 96 % EtCO2: 30 mmHg Airway: 8.0 @ 24 cm at the Teeth. Skin Integrity: WDL Breath Sounds: diminished Secretions: small clear Assessment / Events / Plan of the Day: received pt on PSV 8/5 25%. MRI cancelled due to fever. Continue to manage per AMV protocol. RT Priscilla Daniel Mooney MD - 12/23/2019 9:49 AM EDT Neurology Consult Progress Note - 12/23/2019 PCP: Griselda Stanley MD Attending: Magali Jo MD ID: Timbo Su is a 64 y.o. male with PMHx of advanced Parkinson's disease (s/p DBS and follows with Dr. Vishnu Hooper in neurology clinic), DM, HTN, HLD, neuropathy who was transferred from [facility] for further evaluation of worsening mental status in the setting of fevers of unknown origin. Interval Hx / Subjective: - MRI pending - Neurologic exam moderately improved (decreased sedation) Current Medications: Scheduled Meds: ??? metoprolol tartrate 25 mg Oral Q6H ENA ??? enoxaparin 110 mg Subcutaneous 2 times per day ??? famotidine 20 mg Oral BID ??? polyethylene glycol (MIRALAX)oral powder 17 g Oral Daily ??? senna-docusate 2 tablet Oral BID ??? chlorhexidine 15 mL Oral BID ??? insulin lispro 1-5 Units Subcutaneous Q6H ENA ??? atorvastatin 10 mg Oral QPM ??? sodium chloride 0.9 % (flush) 5 mL Intravenous BID ??? cefTRIAXone 2 g Intravenous Q12H ??? carbidopa-levodopa 1 tablet Oral 4 Times Daily ??? entacapone 200 mg Oral TID Continuous Infusions: ??? dilTIAZem in D5W 10 mg/hr (12/23/19 0914) ??? tube feeding diet 1,240 mL (12/23/19 06) ??? propofoL 30 mcg/kg/min (12/23/19 0600) PRN Meds:.Glucose 40% oral gel OR dextrose 10% OR glucagon (human recombinant), acetaminophen, sodium chloride 0.9 % (flush), lidocaine, potassium chloride in water OR potassium chloride inwater OR potassium chloride in water Physical Exam: Vitals: Last value Range last 24 hrs Temperature Temp: 37.5 ??C (99.5 ??F) Temp: [37.2 ??C (99 ??F)-38.1 ??C (100.6 ??F)] Heart Rate Heart Rate: (!) 125 Heart Rate: [69-145] Blood Pressure BP: 113/77 BP: (69-147)/(47-77) Respiratory Rate Resp: 20 Resp: [17-25] SpO2 SpO2: 96 % SpO2: [92 %-99 %] I/O: 12/21 0701 - 12/22 0700 In: 2040 [I.V.:1120] Out: 1600 [Urine:1600] General: Appears stated age, WDWN, sedated HEENT: NC/AT, intubated Pulm: Ventilated CV: Intermittently irregular rhythm on monitor Extremities: No C/C/E. Peripheral pulses intact. Neuro: NB: Patient is intubated and sedated on propofol 20mcg/kg/min MS: Initially did not arouse to verbal or tactile stimulation; later would keep eyes open briefly without manual opening. With manual opening, attends to examiner Follows zero axial / appendicular commands CN: CN II, III, IV, - PERRL; on manual opening, horizontal eye movements preserved CN V, VII - Corneal reflex not assessed, face symmetric at rest. CN IX, X - Cough/gag reflex not reported Sensorimotor: Atrophy: None appreciated. Tone: Slightly increased on R arm as compared to left Abnormal movements: No fasciculations or myoclonus. RUE LUE RLE LLE Spontaneous Localizes* Withdraws* X (TF) Postures* No response* X X X * to noxious stimuli. TF = Triple Flexion Reflexes: DTRs deferred Toes upgoing on R with weak triple flexion response Coordination: Not assessable Gait: Not assessable Labs: Recent Results (from the past 24 hour(s)) POCT Glucose Result Value Ref Range POC Glucose 153 65 - 199 mg/dL POCT Glucose Result Value Ref Range POC Glucose 135 65 - 199 mg/dL POCT Glucose Result Value Ref Range POC Glucose 138 65 - 199 mg/dL POCT Glucose Result Value Ref Range POC Glucose 166 65 - 199 mg/dL Basic Metabolic Panel (non-fasting) Result Value Ref Range Glucose Lvl 179 65 - 199 mg/dL BUN 11 10 - 20 mg/dL Creatinine 0.72 (L) 0.80 - 1.50 mg/dL Sodium 135 135 - 145 mmol/L Potassium Not Perf 3.5 - 5.0 Chloride 102 98 - 107 mmol/L CO2 22 22 - 31 mmol/L Anion Gap 11 5 - 15 mmol/L Calcium 8.2 (L) 8.5 - 10.5 mg/dL eGFR 99 >=60 mL/min/1.73 m?? eGFR 114 >=60 mL/min/1.73 m?? Magnesium Result Value Ref Range Magnesium 0.78 0.69 - 1.07 mmol/L Phosphorus Result Value Ref Range Phosphorus 2.6 2.5 - 4.5 mg/dL Hemogram Result Value Ref Range WBC 3.8 (L) 4.0 - 9.5 x10(3)/mcL RBC 3.12 (L) 4.58 - 5.54 x10(6)/mcL Hemoglobin 9.6 (L) 13.7 - 16.5 gm/dL Hematocrit 27.7 (L) 40.5 - 48.5 % MCV 88.8 82.9 - 93.1 fL MCH 30.8 27.5 - 32.1 pg MCHC 34.7 32.0 - 35.7 gm/dL Platelets 157 145 - 357 x10(3)/mcL RDWSD 47.8 (H) 36.0 - 45.0 fL RDWCV 14.7 (H) 11.4 - 13.8 % MPV 11.8 7.6 - 12.9 fL nRBC % Auto 0.0 % nRBC Abs Auto 0.000 0.000 - 0.000 x10(3)/mcL Differential, Automated Result Value Ref Range Neutrophils % 43.7 % Neutr Abs (ANC) 1.68 (L) 1.70 - 6.10 x10(3)/mcL Lymphocytes % 45.2 % Lymphocytes Abs 1.7 0.9 - 3.2 x10(3)/mcL Monocytes % 8.8 % Monocyte Abs 0.3 0.3 - 0.9 x10(3)/mcL Eosinophils % 0.5 % Eosinophils Abs 0.0 0.0 - 0.4 x10(3)/mcL Basophils % 0.8 % Basophils Abs 0.0 0.0 - 0.1 x10(3)/mcL Immature Gran % 1.00 % Anneliese Gran Abs 0.04 0.00 - 0.04 x10(3)/mcL Scan, Peripheral Blood Result Value Ref Range Plat Estimate Normal RBC Morphology Abnormal Tear Drop Cells 1-5 /HPF Jack Cells 1-5 /HPF Potassium Result Value Ref Range Potassium 3.7 3.5 - 5.0 mmol/L POCT Glucose Result Value Ref Range POC Glucose 206 (H) 65 - 199 mg/dL POCT Glucose Result Value Ref Range POC Glucose 184 65 - 199 mg/dL Diagnostic Tests and Imaging: CT Head (12/21/2019): Question bioccipital hypoattenuation (particularly on the LEFT), difficult to assess given extensivestreak artifact although appears slightly more conspicuous compared to prior CT 12/20/2019; pathologyin this region cannot be excluded. No acute intracranial hemorrhage or mass effect identified. Dental disease. Assessment and Plan: Timbo Su is a 64 y.o. male with PMHx of advanced Parkinson's disease (s/p DBS and follows withDr. Vishnu Hooper in neurology clinic), DM, HTN, HLD, neuropathy who was transferred from [facility] for further evaluation of worsening mental status in the setting of fevers of unknown origin. 12/21: MRI pending. Continues on empiric coverage while additional results arrive. VZV is still pending and patient should remain on acyclovir until we rule it out. Cannot exclude other viral encephalitides at this time. If MRI demonstrates limbic enhancement would strongly consider repeat tap for HSV PCRs. Tone has increased somewhat as sedation is weaned. Would not make any adjustments to medicationuntil DBS can be put back to his home setting. Recommendations: - Continue empiric coverage for viral meningitis pending culture data - HSV negative - VZV pending - Crypto negative - Fungal culture negative to date - Continue home Sinemet - No adjustments until his DBS is reset to home setting. - MRI Brain w/wo contrast pending ? X Consult service will continue to follow patient. Recommendations are above, please page [phone] if further consultation required. ?? Daniel Mooney MD Neurology, PGY-3 Consult Neurology Service #[id number] 12/23/2019 Associated attestation - Catie Cardoso MD - 12/23/2019 10:40 AM EDT I saw and evaluated the patient with the resident. I have reviewed the medical records and the patient's history during the visit and I agree with the details as written. My physical examination confirms the findings. The assessment and plan were formulated in discussion with me at the time of the visit and I agree with them as documented. As examined on sedation this morning he did seem to be a little more responsive and did open his eyes to voice and track. He has rigidity worse on the LUE compared to RUE. Legs with paratonia bilaterally. MRI is ordered and was not done overnight because the patient spiked a fever. MD Berto BradleysdMiki lomeli [facility] - 12/23/2019 8:29 AM EDT AMV Protocol: Yes SBT Protocol: Yes Vent Settings: Ventilator Mode: PS/CPAP Tidal Volume Set: 600 Resp Rate Set: 14 PEEP Set: 5 FiO2: 25% Ventilator Measurements: Resp: 25 Vt Exhaled: 579 PIP: 14 MAP: 8.4 Plateau Press: 16 Ve: 15.1 PEEP: 5 cmH20 SpO2: 95 % EtCO2:26 mmHg Airway: 8.0 @ 24 cm at the Teeth. Skin Integrity: WDL Breath Sounds: diminished Secretions: thin, clear, small Assessment / Events : Received patient on PSV 8/5, FiO2-25%, patient resting comfortably. MRI planned today was cancelled due to high temperatures. Plan of the Day: Continue to manage patient per AMV protocol. Miki Jimenez RCP Magali Jo MD - 12/23/2019 8:10 AM EDT MICU STAFF PROGRESS NOTE Critical Care Medicine Author: Magali Jo MD Patient seen and examined on critical care rounds. Brief HPI: Timbo Su is a 64 y.o. man with history of advanced Parkinson's disease managed withdeep brain stimulator and medications now in the ICU with acute on chronic encephalopathy and unexplained fevers. He has not improved despite therapy with antibiotics. Multiple etiologies under consideration. Active Problem and Important Diagnoses: ?? Acute encephalopathy ?? Atrial fibrillation with rapid ventricular response ?? Fever ?? Parkinsonism ?? Thrombocytopenia ?? Leukopenia ?? Abnormal liver test ?? Elevated ferritin ASSESSMENT, MANAGEMENT, and DECISION MAKING: He should continue to get spontaneous wakening trial daily as long his his heart rate is controlled. Tick born panel and Lyme negative. Stop doxycycline and ceftriaxone. Elevated temperature caused the MRI to be cancelled. Need to discuss this with radiology and neurology. A controlled fever is considered a risk for burn related to his stimulator. His heart rate was increased again. Resumed diltiazem infusion, given fluids. Can increase metoprolol. His platelets are increasing. Start full anticoagulation with low molecular weight heparin. No bowel movements. I am confident we can fix this. On enteric feeds. Feeding: Enteric feeds Analgesia/Sedation: Propofol SAT Candidate: Yes Thromboprophylaxsis: Therapeutic anticoagulation for afib Ulcer prophylaxsis: H2 anjelica Glucose control: At goal 140 to 180 EXAM: Physical Exam Constitutional: He is sedated and intubated. Eyes: Pupils are equal, round, and reactive to light. Cardiovascular: Normal heart sounds. An irregular rhythm present. Tachycardia present. Pulmonary/Chest: Effort normal and breath sounds normal. He is intubated. Abdominal: Soft. He exhibits no distension. Neurological: He is unresponsive. He displays tremor. He exhibits abnormal muscle tone. GCS eye subscore is 1. GCS verbal subscore is 1. GCS motor subscore is 5. Skin: Skin is warm and dry. Last value Range last 24 hrs Temperature Temp: 37.5 ??C (99.5 ??F) Temp: [37.2 ??C (99 ??F)-38.1 ??C (100.6 ??F)] Heart Rate Heart Rate: (!) 125 Heart Rate: [69-145] Blood Pressure BP: 113/77 BP: (69-147)/(47-77) Respiratory Rate Resp: 20 Resp: [17-25] SpO2 SpO2: 96 % SpO2: [92 %-99 %] Art BP BP (Arterial Line): -- Last Ht 12/20/19 180.3 cm (5' 10.98) Last Wt 12/23/19 106 kg (233 lb 11 oz) Body mass index is 32.61 kg/m??. IS PATIENT CRITICALLY ILL ? Is there a high potential of sudden, clinically significant, or life threatening deterioration? Yes Is there a need for direct personal assessment and management to treat/prevent multiple vital organfailure/deterioration? Yes If this patient is not critically ill, I certify the patient requires continued in-patient hospitalization for: NA PATIENT IS CRITICALLY ILL WITH THESE DIAGNOSES BEING MANAGED BY [facility] TEAM: Encephalopathy Acute I personally performed 40 minutes of aggregate critical care time exclusive of procedures and teaching. This includes time spent during direct patient evaluation and reassessment, interpreting diagnostic tests, directing life and/or organ supporting interventions and documentation on the unit. Magali Jo MD, PhD 12/23/2019 Emerita Sandhu MD - 12/23/2019 6:30 AM EDT Critical Care Progress Note Patient Name: Timbo Su Date of Admission: 12/20/2019 ( Hospital Day 3 days ) Service: Critical Care Medicine - Blue Team 1 #[id number] ID: 64 y/o man with advanced Parkinson's disease s/p DBS, HTN, DM and hyperlipidemia who was admitted to [facility] 3 days ago with worsening hallucinations and encephalopathy, worsening tremor, and fevers, with course complicated by atrial fibrillation w/ RVR. Interval Events: -Febrile, Tmax 100.6, was not able to have MRI for concern of his temperature per MRI team. Patient back in afib w/ RVR overnight, requiring multiple IV metop and dilt ggt up to 15, oral metop increased to 37.5 q6, rates improved to 90s -Hemodynamics: BP was hypotensive to 80s, this morning, decreased dilt/prop ggts and given 500cc LR bolus to good effect -Vent settings: PS (8/5), FiO2 25, RR 17-25 -UOP: 1.6L total, net pos 440 Access: Peripheral IV Line - Single Lumen 12/20/19 1600 cephalic vein (lateral side of arm), right 20 gauge (Active) Peripheral IV Line - Single Lumen 12/20/19 1800 cephalic vein (lateral side of arm), left 18 gauge;1in length (Active) Peripheral IV Line - Single Lumen 12/20/19 cephalic vein (lateral side of arm), left 20 gauge (Active) OGT Scheduled Meds: ??? metoprolol tartrate 25 mg Oral Q6H ENA ??? atorvastatin 10 mg Oral QPM ??? enoxaparin 40 mg Subcutaneous Daily ??? doxycycline monohydrate 100 mg Oral BID ??? insulin lispro 1-5 Units Subcutaneous TID AC ??? sodium chloride 0.9 % (flush) 5 mL Intravenous BID ??? cefTRIAXone 2 g Intravenous Q12H ??? carbidopa-levodopa 1 tablet Oral 4 Times Daily ??? entacapone 200 mg Oral TID Continuous Infusions: ??? dilTIAZem in D5W Stopped (12/23/19 0700) ??? tube feeding diet 1,240 mL (12/23/19 0612) ??? propofoL 30 mcg/kg/min (12/23/19 0600) PRN Meds:.Glucose 40% oral gel OR dextrose 10% OR glucagon (human recombinant), acetaminophen, sodium chloride 0.9 % (flush), lidocaine, potassium chloride in water OR potassium chloride inwater OR potassium chloride in water Physical Exam: Last value Range last 24 hrs Temperature Temp: 37.5 ??C (99.5 ??F) Temp: [37.2 ??C (99 ??F)-38.1 ??C (100.6 ??F)] Heart Rate Heart Rate: (!) 125 Heart Rate: [69-145] Blood Pressure BP: 113/77 BP: (69-147)/(47-77) Respiratory Rate Resp: 20 Resp: [17-25] SpO2 SpO2: 96 % SpO2: [92 %-99 %] General: intubated and sedated Neuro: pupils 3cm equal, round, reactive. Withdraws to noxious stimuli, no nuchal rigidity, no rigidity ruby UE/LE, +clonus Lungs: CTAB, no wheezes/rales/rhonci Heart: IRIR, no murmurs Abdomen: soft, protuberant Extremities: warm, well perfused, pulses 2+ ruby U/LE Skin: no rashes or ecchymosis ABG: Recent Labs 12/21/19 0009 PHART 7.43 [id number] 36 PO2ART 95 [id number] 23.4 Ins/Outs: Intake/Output Summary (Last 24 hours) at 12/23/2019 0815 Last data filed at 12/23/2019 0600 Gross per 24 hour Intake 2004 ml Output 1540 ml Net 464 ml Patient Vitals for the past 168 hrs: Weight 12/23/19 0000 106 kg (233 lb 11 oz) 12/22/19 0400 105.5 kg (232 lb 9.4 oz) 12/21/19 0600 103.7 kg (228 lb 9.9 oz) 12/20/19 1957 103 kg (227 lb 1.2 oz) Vent settings: Oxygen Therapy O2 Device: Ventilator O2 Flow Rate (L/min): 30 L/min FiO2 (%): 25 % Labs: Recent Labs 12/23/19 0020 12/22/19 0115 12/21/19 0000 WBC 3.8* 5.9 3.1* HGB 9.6* 10.9* 9.9* HCT 27.7* 32.6* 28.5* PLATELET 157 117* 100* Recent Labs 12/23/19 0117 12/23/19 0020 12/22/19 0115 12/21/19 0315 12/21/19 0000 NA -- 135 136 138 137 K 3.7 Not Perf 4.3 4.0 4.0 CL -- 102 99 101 101 CO2 -- 22 21* 21* 21* BUN -- 11 12 -- 15 CREATININE -- 0.72* 0.73* -- 0.88 Recent Labs 12/21/19 0000 12/20/19 1725 AST 68* 76* ALT 69* 71* ALKPHOS 91 100 BILITOT 1.0 1.3 BILIDIR 0.6* 0.7* Recent Labs 12/23/19 0020 12/22/19 0115 12/21/19 0000 CALCIUM 8.2* 7.8* 8.3* MAGNESIUM 0.78 0.88 0.81 PHOS 2.6 2.5 3.8 Recent Labs 12/20/19 1725 INR 1.3 PT 14.7* PTT 32 Recent Labs 12/22/19 0115 12/21/19 0000 12/20/19 1725 CK 126 288* 447* LP labs: 12/21/2019 14:32 12/21/2019 14:[address] 7 (H) RBC CSF CT 5 Neutrophil CSF 5 Lymphocyte CSF 85 Macrophage CSF 10 Glucose, CSF 94 T Protein, CSF 108 (H) Xanthochromia Neg Microbiology: COVID-19 negative 12/19 BCx 12/19 NGTD CSF: -culture NGTD -fungal culture NGTD -HSV1/2 PCR neg -Cryptococcal Ag neg -VZV pending -Lyme pending Acute tick borne panel neg for borrelia miyamotoi, babesia, ehrlichia, anaplasma Imaging/Studies: MRI Brain pending Assessment: 64 y/o man with advanced Parkinson's disease s/p DBS, HTN, DM and hyperlipidemia who [facility] with worsening hallucinations and encephalopathy, worsening tremor, and fevers. Will discuss with Neurorads about obtaining MRI with physiologic low grade fevers. Understandable that patient's DBS precludes prolonged magnetic field exposure, however it is unclear why low grade fever would add to concern. No clear etiology presently for FUO and encephalopathy. Awaiting Lyme and VZV. Will continue metop and dilt ggt for rate control. Starting therapeutic lovenox for anticoagulation while inpatient. Given fall risk, has high fall risk, will need GOC/risk benefit discussion prior to discharge. Summary of Today's Plan (12/23/19): -?MRI brain -rate control with dilt ggt and PO metop -anticoagulation while inpatient: therapeutic lovenox Neuro: #Concern for Meningitis - s/p Acyclovir (12/19-12/21) - s/p Ampicillin 12/19-12/20, vancomycin (12/19-12/20) - Ceftriaxone 2g q12h -Consider empiric doxy if tick panel not back for anaplasma/ehrlichiosis - f/u VZV and lyme - F/u neuro checks. - ?MRI Brain #Sedation -Daily SAT -Wean prop as able ?? Pulm #Respiratory alkalosis - resolved #Ventilated for airway protection - Mechanical ventilation - Pressure support - Trend ABGs ?? CV #Atrial Fibrillation with RVR #Chronic HFpEF - Metop 25mg q6h, uptitrate as needed - dilt ggt - Consider dig if unable to control -therapeutic lovenox -GOC discussion re AC prior to discharge ?? #Hypertension -Home meds: lisinopril 40, HCTZ 25, metop 100 BID -hold home antihypertensives #HLD -Lipitor for home simvastatin GI #Transaminitis - Noted to be a baseline issue noted on outpatient documentation - Continue to trend INR, LFTs - Diet: NPO diet (Give Meds) ?? /FEN #Electrolyte Optimization - K>4 - Mg >1 #Nutrition -Trickle tube feeds for now -c/s to nutrition ?? #Elevated CK, Concern for muscle breakdown/rhabdo - resolved -continue to trend ?? ID #Concern for Meningitis -plan as above ?? Heme #Normocytic anemia - OSH B12/folate wnl - Iron studies c/w anemia of chronic disease - Continue to monitor ?? #Thrombocytopenia - Appears to be chronic - Could be exacerbated by infection - Continue to trend - Can consider immature platelet fraction, ?MDS ?? Endo #Type 2 Diabetes - SSI - Hold home glipizide ? Misc Code status: Full Code Dispo: MICU DVT PPx - therapeutic lovenox Nutrition - tube feeds GI: Famotidine Emerita Sandhu MD Internal Medicine PGY-1 Blue Team 1, Team Pager # [phone] Yudy Curiel RCP - 12/23/2019 3:48 AM EDT AMV Protocol: Yes SBT Protocol: Yes SBT: not done at this time. Pt in A-Fib Vent Settings: Ventilator Mode: PS/CPAP PEEP Set: 5 FiO2: 25 % PSV: 8 Ventilator Measurements: Resp: 25 Vt Spontaneous: 552 Ve: 13 SpO2: 94 % EtCO2: 29 mmHg Airway: 8.0 @ 24 cm at the Teeth. Skin Integrity: WDL Breath Sounds: decreased bilat Secretions: Large thick yellow sec. Assessment / Events / Plan of the Day: Pt remains intubated on vent settings PS 8/5 25%. Changed to heated circuit due to secretions. YUDY CURIEL RCP Kelli Calixto RD - 12/22/2019 12:30 PM EDT Nutrition Consult Note Timbo Su is a 64 y.o. male with advanced Parkinson's disease s/p DBS, HTN, DM and hyperlipidemia who was admitted to [facility] 3 days ago with worsening hallucinations and encephalopathy, worsening tremor, and fevers, with course complicated by atrial fibrillation w/ RVR. Reason for intervention: ICU Tube-feeding Nutrition Recommendations: Propofol at current rate will provide 488 calories from lipid daily. Suggest Peptamen AF with a goal rate of 62 ml per hour. This rate is calculated to compensate for unplanned time off feedings due to potential procedures, etc. At goal, this will provide 1240 ml formula, 1488 calories, 93 grams protein, 1005 ml water from formula and 99% of RDI's for vitamins and minerals. Suggest check triglyceride level twice weekly while on Propofol. Suggest check magnesium and phosphorus with daily labs. Noted already ordered. I was able to discuss plan with provider [id number]. All Active TF Orders: Tubefeeding Orders (From admission, onward) Start Dose/Rate Route Frequency Ordered Stop 12/22/19 1130 tube feeding diet Peptamen AF 240 mL 10 mL/hr Per G Tube CONTINUOUS 12/22/19 1104 Enteral access: OG Oxygen Therapy/airway: O2 Device: Ventilator Lab Results Component Value Date NA 136 12/22/2019 K 4.3 12/22/2019 CL 99 12/22/2019 CO2 21 (L) 12/22/2019 BUN 12 12/22/2019 CREATININE 0.73 (L) 12/22/2019 GFRAA 114 12/22/2019 MAGNESIUM 0.88 12/22/2019 CALCIUM 7.8 (L) 12/22/2019 PHOS 2.5 12/22/2019 AST 68 (H) 12/21/2019 ALT 69 (H) 12/21/2019 ALKPHOS 91 12/21/2019 BILITOT 1.0 12/21/2019 BILIDIR 0.6 (H) 12/21/2019 IRON 21 (L) 12/21/2019 Lab Results Component Value Date POCGLU 153 12/22/2019 POCGLU 173 12/22/2019 Skin Status: Shift Pressure Injury Prevention Occiput: No Injury Thoracic Spine: No Injury Sacral: No Injury Ischial - left: No Injury Ischial - right: No Injury Heel - left: No Injury Heel - right: No Injury Elbow - left: No Injury Elbow - right: No Injury Device Sites: ETT, OG, O2 sat monitor, IV sites, morris, ECG Leads Other Sites: id band Relevant medications: Propofol, lispro, sinemet, others noted Last Bowel Movement: (unknown) I/O from last 2 shifts: Intake/Output Summary (Last 24 hours) at 12/22/2019 1231 Last data filed at 12/22/2019 1200 Gross per 24 hour Intake 2853 ml Output 1190 ml Net 1663 ml Admit Weight: 103 kg Estimated body mass index is 32.45 kg/m?? as calculated from the following: Height as of 12/21/19: 180.3 cm (5' 10.98). Weight as of this encounter: 105.5 kg (232 lb 9.4 oz). 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 Estimated needs: Calories: 1950 (25 kcal/kg IBW) Protein: 93 grams (1.2g/kg IBW) Tolerance or barriers to meeting needs: Nutrition Focused Physical Exam (NFPE): Not performed Protein-calorie Malnutrition: Not identified (Rey, JPEN J Parenteral Enteral Nutr. 2011;36(3): 273-83) Nutrition to continue to follow up while inpatient BEBE ALLEN Pager #:[phone] Emerita Sandhu MD - 12/22/2019 12:19 PM EDT Critical Care Progress Note Patient Name: Timbo Su Date of Admission: 12/20/2019 ( Hospital Day 2 days ) Service: Critical Care Medicine - Blue Team 1 #[id number] ID: 64 y/o man with advanced Parkinson's disease s/p DBS, HTN, DM and hyperlipidemia who was admitted to [facility] 3 days ago with worsening hallucinations and encephalopathy, worsening tremor, and fevers, with course complicated by atrial fibrillation w/ RVR. Interval Events: -Febrile, Tmax 101.7 -Hemodynamics: No pressor, -Vent settings: PS, FiO2 25, 10/5, RR19-24, passed SBT, hypertensive up to 177 SBP -Sedation: propofol 30, JOAQUIN -3 to -4 -UOP: 1.3L total, net pos 2.1L -24 hr: transitioned to metop from dilt ggt, s/p LP yesterday, labs showing only elevated protein, vanc/ampicillin stopped ON. Access: Peripheral IV Line - Single Lumen 12/20/19 1600 cephalic vein (lateral side of arm), right 20 gauge (Active) Peripheral IV Line - Single Lumen 12/20/19 1800 cephalic vein (lateral side of arm), left 18 gauge;1in length (Active) Peripheral IV Line - Single Lumen 12/20/19 cephalic vein (lateral side of arm), left 20 gauge (Active) OGT Scheduled Meds: ??? atorvastatin 10 mg Oral QPM ??? enoxaparin 40 mg Subcutaneous Daily ??? lisinopriL 40 mg Oral Daily ??? doxycycline monohydrate 100 mg Oral BID ??? insulin lispro 1-5 Units Subcutaneous TID AC ??? metoprolol tartrate 25 mg Oral Q6H ENA ??? sodium chloride 0.9 % (flush) 5 mL Intravenous BID ??? cefTRIAXone 2 g Intravenous Q12H ??? carbidopa-levodopa 1 tablet Oral 4 Times Daily ??? entacapone 200 mg Oral TID Continuous Infusions: ??? tube feeding diet ??? propofoL 29.935 mcg/kg/min (12/22/19 1200) PRN Meds:.Glucose 40% oral gel OR dextrose 10% OR glucagon (human recombinant), acetaminophen, sodium chloride 0.9 % (flush), lidocaine, potassium chloride in water OR potassium chloride inwater OR potassium chloride in water Physical Exam: Last value Range last 24 hrs Temperature Temp: 37.3 ??C (99.1 ??F) Temp: [37.3 ??C (99.1 ??F)-38.7 ??C (101.7 ??F)] Heart Rate Heart Rate: 76 Heart Rate: [76-141] Blood Pressure BP: 138/70 BP: (102-177)/(50-80) Respiratory Rate Resp: 20 Resp: [12-28] SpO2 SpO2: 96 % SpO2: [91 %-98 %] General: intubated and sedated Neuro: pupils 3cm equal, round, reactive. Withdraws to noxious stimuli, no nuchal rigidity, no rigidity ruby UE/LE, +clonus Lungs: CTAB, no wheezes/rales/rhonci Heart: IRIR, no murmurs Abdomen: soft, protuberant Extremities: warm, well perfused, pulses 2+ ruby U/LE Skin: no rashes or ecchymosis ABG: Recent Labs 12/21/19 0009 PHART 7.43 [id number] 36 PO2ART 95 [id number] 23.4 Ins/Outs: Intake/Output Summary (Last 24 hours) at 12/22/2019 1219 Last data filed at 12/22/2019 1200 Gross per 24 hour Intake 2853 ml Output 1190 ml Net 1663 ml Patient Vitals for the past 168 hrs: Weight 12/22/19 0400 105.5 kg (232 lb 9.4 oz) 12/21/19 0600 103.7 kg (228 lb 9.9 oz) 12/20/19 195 103 kg (227 lb 1.2 oz) Vent settings: Oxygen Therapy O2 Device: Ventilator O2 Flow Rate (L/min): 30 L/min FiO2 (%): 25 % Labs: Recent Labs 12/22/19 01112/21/19 0000 12/20/19 1725 WBC 5.9 3.1* 2.9* HGB 10.9* 9.9* 10.2* HCT 32.6* 28.5* 29.5* PLATELET 117* 100* 108* Recent Labs 12/22/19 0115 12/21/19 0315 12/21/19 0000 12/20/19 1725 NA 136 138 137 136 K 4.3 4.0 4.0 3.6 CL 99 101 101 97* CO2 21* 21* 21* 24 BUN 12 -- 15 12 CREATININE 0.73* -- 0.88 0.90 Recent Labs 12/21/19 0000 12/20/19 1725 AST 68* 76* ALT 69* 71* ALKPHOS 91 100 BILITOT 1.0 1.3 BILIDIR 0.6* 0.7* Recent Labs 12/22/19 0115 12/21/19 0000 12/20/19 1725 CALCIUM 7.8* 8.3* 8.5 MAGNESIUM 0.88 0.81 0.57* PHOS 2.5 3.8 3.1 Recent Labs 12/20/19 1725 INR 1.3 PT 14.7* PTT 32 Recent Labs 12/22/19 0115 12/21/19 0000 12/20/19 1725 CK 126 288* 447* LP labs: 12/21/2019 14:32 12/21/2019 14:[address] 7 (H) RBC CSF CT 5 Neutrophil CSF 5 Lymphocyte CSF 85 Macrophage CSF 10 Glucose, CSF 94 T Protein, CSF 108 (H) Xanthochromia Neg Microbiology: COVID-19 negative 12/19 BCx 12/19 NGTD CSF: -culture pending -fungal culture pending -HSV1/2 PCR neg -Cryptococcal Ag neg -VZV pending -Lyme pending Acute tick borne panel pending Imaging/Studies: MRI Brain pending TTE 12/20 SUMMARY: 1. Rhythm: AF with RVR. 2. The left ventricular chamber size is normal. Mild concentric left ventricular hypertrophy is observed. Basal septal hypertrophy is observed (2 cm). Global left ventricular systolic function appears hyperdynamic. Ejection fraction is estimated to be 75%. There are no left ventricular segmental wall motion abnormalities. 3. The right ventricle is normal in size. Right ventricular global systolic function is normal. Pulmonary artery hypertension could not be assessed due to inadequate tricuspid regurgitation jet. 4. There is no hemodynamically significant valve disease. 5. There is mild dilatation of the aortic root (4.1 cm). Assessment: 64 y/o man with advanced Parkinson's disease s/p DBS, HTN, DM and hyperlipidemia who [facility] days ago with worsening hallucinations and encephalopathy, worsening tremor, and fevers. LP done yesterday, unlikely to be bacterial, and HSV negative. Unlikely to be VZV given clinical stability although lab pending. Awaiting tick-borne illnesses and lyme CSF study. At this point infectious etiology seems more likely, and less likely medication induced given how far out he now is, and with sinemet on board. Remains in afib, with rates well controlled on oral metoprolol now. Will touch base with NSGY regarding DBS and anticoagulation before starting any therapeutic AC in this critically ill patient. Summary of Today's Plan (12/22/19): -MRI brain / cervical spine -continue CTX, consider adding doxycycline if labs not back -f/u infectious labs -c/w metop and home lisinopril Neuro: #Concern for Meningitis - stop Acyclovir (12/19-12/21) - s/p Ampicillin 12/19-12/20, vancomycin (12/19-12/20) - Ceftriaxone 2g q12h -Consider empiric doxy if tick panel not back for anaplasma/ehrlichiosis - F/u LP labs (above) - F/u neuro checks. - MRI Brain + cervical spine pending ?? Pulm #Respiratory alkalosis - resolved #Ventilated for airway protection - Mechanical ventilation - Pressure support - Trend ABGs ?? CV #Atrial Fibrillation with RVR #Chronic HFpEF - Metop 25mg q6h, uptitrate as needed - Consider dig if unable to control - Consider anticoagulation with heparin/lovenox -discuss with NSGY if any concern for bleeding with DBS ?? #Hypertension -Home meds: lisinopril 40, HCTZ 25, metop 100 BID -c/w home lisinopril 40mg #HLD -Lipitor for home simvastatin GI #Transaminitis - Noted to be a baseline issue noted on outpatient documentation - Continue to trend INR, LFTs - Diet: NPO diet (Give Meds) ?? /FEN #Electrolyte Optimization - K>4 - Mg >1 #Nutrition -Trickle tube feeds for now -c/s to nutrition ?? #Elevated CK, Concern for muscle breakdown/rhabdo - resolved -continue to trend ?? ID #Concern for Meningitis -plan as above ?? Heme #Normocytic anemia - OSH B12/folate wnl - Iron studies c/w anemia of chronic disease - Continue to monitor ?? #Thrombocytopenia - Appears to be chronic - Could be exacerbated by infection - Continue to trend ?? Endo #Type 2 Diabetes - SSI - Hold home glipizide ? Misc Code status: Full Code Dispo: MICU DVT PPx - lovenox Nutrition - trickle tube feeds Emerita Sandhu MD Internal Medicine PGY-1 Blue Team 1, Team Pager # [phone] Magali Jo MD - 12/22/2019 10:43 AM EDT MICU STAFF PROGRESS NOTE Critical Care Medicine Author: Magali Jo MD Patient seen and examined on critical care rounds. Brief HPI: Timbo Su is a 64 y.o. man with history of advanced Parkinson's disease managed withdeep brain stimulator and medications now in the ICU with acute on chronic encephalopathy and unexplained fevers. He has not improved despite therapy with antibiotics. Multiple etiologies under consideration. Active Problem and Important Diagnoses: ?? Acute encephalopathy ?? Atrial fibrillation with rapid ventricular response ?? Fever ?? Parkinsonism ?? Thrombocytopenia ?? Leukopenia ?? Abnormal liver test ?? Elevated ferritin ASSESSMENT, MANAGEMENT, and DECISION MAKING: Mental status remains poor. Fevers continue. He should get a daily spontaneous wakening trial. On minimal ventilatory support. Passed spontaneous breathing trial today. Hypertensive. Was restarted on home lisinopril. Rate controlled. Off diltiazem infusion. On oral rate control. CSF with nucleated cells. 85% lymphocytes. HSV negative. Okay to stop acyclovir. Tick studies in process. Continue ceftriaxone add doxycycline for anaplasma coverage pending tests. Needs MRI brain and c-spine today per Neurology. His Nurse obtained new history from his about piror sinus and dental pain for two weeks. CT head without evidence of significant sinus disease or odontogenic infection. Exam supports this. Given atrial fibrillation would like to anticoagulation now that LP done. Discussed with neurosurgery and no concerns with his stimulator. Okay to use low molecular weight heparin while in ICU. EXAM: Physical Exam Constitutional: He is sedated and intubated. Eyes: Pupils are equal, round, and reactive to light. Cardiovascular: Normal heart sounds. An irregular rhythm present. Tachycardia present. Pulmonary/Chest: Effort normal and breath sounds normal. He is intubated. Abdominal: Soft. He exhibits no distension. Neurological: He is unresponsive. He displays tremor. He exhibits abnormal muscle tone. GCS eye subscore is 1. GCS verbal subscore is 1. GCS motor subscore is 5. Skin: Skin is warm and dry. Last value Range last 24 hrs Temperature Temp: 37.4 ??C (99.3 ??F) Temp: [37.4 ??C (99.3 ??F)-38.7 ??C (101.7 ??F)] Heart Rate Heart Rate: 81 Heart Rate: [78-141] Blood Pressure BP: 124/59 BP: (102-177)/(50-80) Respiratory Rate Resp: 23 Resp: [12-28] SpO2 SpO2: 96 % SpO2: [91 %-98 %] Art BP BP (Arterial Line): -- Last Ht 12/20/19 180.3 cm (5' 10.98) Last Wt 12/22/19 105.5 kg (232 lb 9.4 oz) Body mass index is 32.45 kg/m??. IS PATIENT CRITICALLY ILL ? Is there a high potential of sudden, clinically significant, or life threatening deterioration? Yes Is there a need for direct personal assessment and management to treat/prevent multiple vital organfailure/deterioration? Yes If this patient is not critically ill, I certify the patient requires continued in-patient hospitalization for: NA PATIENT IS CRITICALLY ILL WITH THESE DIAGNOSES BEING MANAGED BY [facility] TEAM: Encephalopathy Acute I personally performed 50 minutes of aggregate critical care time exclusive of procedures and teaching. This includes time spent during direct patient evaluation and reassessment, interpreting diagnostic tests, directing life and/or organ supporting interventions and documentation on the unit. Magali Jo MD, PhD 12/22/2019 Daniel Mooney MD - 12/22/2019 10:35 AM EDT Neurology Consult Progress Note - 12/22/2019 PCP: Griselda Stanley MD Attending: Magali Jo MD ID: Timbo Su is a 64 y.o. male with PMHx of advanced Parkinson's disease (s/p DBS and follows with Dr. Vishnu Hooper in neurology clinic), DM, HTN, HLD, neuropathy who was transferred from [facility] for further evaluation of worsening mental status in the setting of fevers of unknown origin. Interval Hx / Subjective: - DBS reprogrammed for MRI compatibility; it remains on and active but safe for MRI. - LP successful; CSF studies reported below (consistent with possible viral encephalitis or aseptic meningitis, vs incompletely treated atypical organism) - Neurologic exam stable to slightly improved (decreased sedation) Current Medications: Scheduled Meds: ??? acyclovir 864 mg Intravenous Q8H ??? atorvastatin 10 mg Oral QPM ??? enoxaparin 40 mg Subcutaneous Daily ??? lisinopriL 40 mg Oral Daily ??? insulin lispro 1-5 Units Subcutaneous TID AC ??? metoprolol tartrate 25 mg Oral Q6H ENA ??? sodium chloride 0.9 % (flush) 5 mL Intravenous BID ??? cefTRIAXone 2 g Intravenous Q12H ??? carbidopa-levodopa 1 tablet Oral 4 Times Daily ??? entacapone 200 mg Oral TID Continuous Infusions: ??? propofoL 29.935 mcg/kg/min (12/22/19 1000) PRN Meds:.Glucose 40% oral gel OR dextrose 10% OR glucagon (human recombinant), acetaminophen, sodium chloride 0.9 % (flush), lidocaine, potassium chloride in water OR potassium chloride inwater OR potassium chloride in water Physical Exam: Vitals: Last value Range last 24 hrs Temperature Temp: 37.4 ??C (99.3 ??F) Temp: [37.4 ??C (99.3 ??F)-38.7 ??C (101.7 ??F)] Heart Rate Heart Rate: 81 Heart Rate: [78-141] Blood Pressure BP: 124/59 BP: (102-177)/(50-80) Respiratory Rate Resp: 23 Resp: [12-28] SpO2 SpO2: 96 % SpO2: [91 %-98 %] I/O: 12/20 0701 - 12/21 0700 In: 3494 [I.V.:2269] Out: 1302 [Urine:1302] General: Appears stated age, WDWN, sedated HEENT: NC/AT, intubated Pulm: Ventilated CV: Intermittently irregular rhythm on monitor Extremities: No C/C/E. Peripheral pulses intact. Neuro: NB: Patient is intubated and sedated on propofol 30mcg/kg/min MS: Arouses to neither verbal nor tactile stimulation, but does resist manual eye opening. Follows zero axial / appendicular commands CN: CN II, III, IV, - PERRL; VOR intact CN V, VII - Corneal reflex not assessed, face symmetric at rest. Resists manual eye opening on exam. CN IX, X - Cough/gag reflex not reported Sensorimotor: Atrophy: None appreciated. Abnormal movements: No fasciculations or myoclonus. RUE LUE RLE LLE Spontaneous Localizes* Withdraws* X (TF) Postures* No response* X X X * to noxious stimuli. TF = Triple Flexion Reflexes: DTRs deferred Toes upgoing on R with weak triple flexion response Coordination: Not assessable Gait: Not assessable Labs: Recent Results (from the past 24 hour(s)) POCT Glucose Result Value Ref Range POC Glucose 149 65 - 199 mg/dL Cryptococcal Antigen CSF ([facility] [place]/[facility]P/APD) Result Value Ref Range CSF Cryptococcal Ag Negative Negative Protein Level CSF Result Value Ref Range T Protein, CSF 108 (H) 15 - 45 mg/dL Xanthochromia Neg Glucose Level CSF Result Value Ref Range Glucose, CSF 94 mg/dL CSF Culture Result Value Ref Range Central Nervous System Culture No growth to date. Gram Stain Cytocentrifuge Gram Stain performed No Neutrophils seen. No microorganisms seen. HSV 1 and 2 PCR Result Value Ref Range HSV-1 PCR Not Detected Not Detected HSV-2 PCR Not Detected Not Detected HSV Source CSF Fungus culture Cerebrospinal Fluid Result Value Ref Range Fungus Culture No Fungus isolated to date Body Fluid HOLD Cerebrospinal Fluid Result Value Ref Range Hold BF Type Sample in lab. CSF DESC 1 Result Value Ref Range Tube Num CSF #1 1 Color CSF #1 Yellow Colorless Appear CSF #1 Slightly Hazy Clear Tot Vol CSF #1 3.0 mL CSF Cell Count Result Value Ref Range Tube # Ct CSF [address] 7 (H) 0 - 5 /mcl RBC CSF CT 5 /mcl Neutrophil CSF 5 % Lymphocyte CSF 85 % Macrophage CSF 10 % CSF DESC 2 Result Value Ref Range Tube Num CSF #2 2 Color CSF #2 Colorless Colorless Appear CSF #2 Clear Clear Tot Vol CSF #2 3.0 mL CSF DESC 3 Result Value Ref Range Tube Num CSF #3 3 Color CSF #3 Yellow Colorless Appear CSF #3 Slightly Hazy Clear Tot Vol CSF #3 3.0 mL CSF DESC 4 Result Value Ref Range Tube Num CSF #4 4 Color CSF #4 Yellow Colorless Appear CSF #4 Slightly Hazy Clear Tot Vol CSF #4 7.0 mL Basic Metabolic Panel (non-fasting) Result Value Ref Range Glucose Lvl 180 65 - 199 mg/dL BUN 12 10 - 20 mg/dL Creatinine 0.73 (L) 0.80 - 1.50 mg/dL Sodium 136 135 - 145 mmol/L Potassium 4.3 3.5 - 5.0 mmol/L Chloride 99 98 - 107 mmol/L CO2 21 (L) 22 - 31 mmol/L Anion Gap 16 (H) 5 - 15 mmol/L Calcium 7.8 (L) 8.5 - 10.5 mg/dL eGFR 98 >=60 mL/min/1.73 m?? eGFR 114 >=60 mL/min/1.73 m?? Magnesium Result Value Ref Range Magnesium 0.88 0.69 - 1.07 mmol/L Phosphorus Result Value Ref Range Phosphorus 2.5 2.5 - 4.5 mg/dL Hemogram Result Value Ref Range WBC 5.9 4.0 - 9.5 x10(3)/mcL RBC 3.64 (L) 4.58 - 5.54 x10(6)/mcL Hemoglobin 10.9 (L) 13.7 - 16.5 gm/dL Hematocrit 32.6 (L) 40.5 - 48.5 % MCV 89.6 82.9 - 93.1 fL MCH 29.9 27.5 - 32.1 pg MCHC 33.4 32.0 - 35.7 gm/dL Platelets 117 (L) 145 - 357 x10(3)/mcL RDWSD 46.2 (H) 36.0 - 45.0 fL RDWCV 14.1 (H) 11.4 - 13.8 % MPV 11.9 7.6 - 12.9 fL nRBC % Auto 0.0 % nRBC Abs Auto 0.000 0.000 - 0.000 x10(3)/mcL Differential, Automated Result Value Ref Range Neutrophils % 45.4 % Neutr Abs (ANC) 2.69 1.70 - 6.10 x10(3)/mcL Lymphocytes % 37.1 % Lymphocytes Abs 2.2 0.9 - 3.2 x10(3)/mcL Monocytes % 14.9 % Monocyte Abs 0.9 0.3 - 0.9 x10(3)/mcL Eosinophils % 0.2 % Eosinophils Abs 0.0 0.0 - 0.4 x10(3)/mcL Basophils % 0.7 % Basophils Abs 0.0 0.0 - 0.1 x10(3)/mcL Immature Gran % 1.70 % Anneliese Gran Abs 0.10 (H) 0.00 - 0.04 x10(3)/mcL Scan, Peripheral Blood Result Value Ref Range Plat Estimate Decreased RBC Morphology Normal Atypical Lymph Moderate Giant Platelets Less than 1 /HPF POCT Glucose Result Value Ref Range POC Glucose 173 65 - 199 mg/dL Diagnostic Tests and Imaging: CT Head (12/21/2019): Question bioccipital hypoattenuation (particularly on the LEFT), difficult to assess given extensivestreak artifact although appears slightly more conspicuous compared to prior CT 12/20/2019; pathologyin this region cannot be excluded. No acute intracranial hemorrhage or mass effect identified. Dental disease. Assessment and Plan: Timbo Su is a 64 y.o. male with PMHx of advanced Parkinson's disease (s/p DBS and follows withDrKush Hooper in neurology clinic), DM, HTN, HLD, neuropathy who was transferred from [facility] for further evaluation of worsening mental status in the setting of fevers of unknown origin. 12/20: MRI pending. Continues on empiric coverage while additional results arrive. VZV is still pending and patient should remain on acyclovir until we rule it out. Cannot exclude other viral encephalitides at this time. Ceftriaxone is probably safe to discontinue at this time, but understand if primary team wants to continue for coverage of neuroborreliosis (pending Lyme titers). Continue supportive care. Recommendations: - Continue empiric coverage for viral meningitis pending culture data - HSV negative - VZV pending - Crypto negative - Fungal culture negative to date - Continue home Sinemet - MRI Brain w/wo contrast pending ? X Consult service will continue to follow patient. Recommendations are above, please page [phone] if further consultation required. ?? Daniel Mooney MD Neurology, PGY-3 Consult Neurology Service #[id number] 12/22/2019 Associated attestation - Catie Cardoso MD - 12/22/2019 11:11 AM EDT I saw and evaluated the patient with the resident. I have reviewed the medical records and the patient's history during the visit and I agree with the details as written. My physical examination confirms the findings. The assessment and plan were formulated in discussion with me at the time of the visit and I agree with them as documented. DBS interrogated in anticipation of DBS and all impedances are within an acceptable range. His right GPi lead was on bipolar settings contacts 9-/10+, 4.6V, PW 90, Freq 150, no changes neededfor MRI His left GPi lead was on monopolar settings contacts 1-/C+, 2.5V, PW 90, Freq 150. I put him on bipolar settings 1-/2+ for the MRI and kept the other parameters as is. MD Barbara Bradley Donald A, RCP - 12/22/2019 10:32 AM EDT AMV Protocol: Yes SBT Protocol: Yes Vent Settings: Ventilator Mode: PS/CPAP Tidal Volume Set: 600 Resp Rate Set: 14 PEEP Set: 5 FiO2: 25% Ventilator Measurements: Resp: 23 Vt Exhaled: 614 PIP: 16 MAP: 9.2 Plateau Press: 16 Ve: 12.3 PEEP: 5 cmH20 SpO2: 96 % EtCO2:30 mmHg Airway: 8.0 @ 24 cm at the Teeth. Skin Integrity: WDL Breath Sounds: diminished Secretions: clear,white, small Assessment / Events: Received patient orally intubated on PSV 10/5, FiO2-25%, patient resting comfortably. Pressure support titrated down to 8 during morning rounds. Plan of the Day: Maintain settings per AMV protocol, MRI planned for today Miki Jimenez RCP Yudy Curiel RCP - 12/22/2019 2:54 AM EDT AMV Protocol: Yes SBT Protocol: Yes SBT: passed Vent Settings: Ventilator Mode: PS/CPAP PEEP Set: 5 FiO2: 25 % PSV: 12 Ventilator Measurements: Resp: 22 Vt Spontaneous: 744 Ve: 14.3 SpO2: 96 % EtCO2: 27 mmHg Airway: 8.0 @ 24 cm at the Teeth. Skin Integrity: WDL Breath Sounds: decreased clear Secretions: moderate thick yellow Assessment / Events / Plan of the Day: Pt remains intubated on above vent settings. Suctioning largethick yellow secretions. Passed SBT YUDY CURIEL RCP Becki Carlson RT - 12/21/2019 3:37 PM EDT AMV Protocol: Yes SBT Protocol: Yes Vent Settings: Ventilator Mode: PS/CPAP PEEP Set: 5 FiO2: 25 % PSV: 10 Ventilator Measurements: Resp: 25 Vt Spontaneous: 744 Ve: 16.4 SpO2: 95 % EtCO2: 25 mmHg Airway: 8.0 @ 24 cm at the Teeth. Skin Integrity: WDL Breath Sounds: Diminished Secretions: None appreciated Assessment / Events / Plan of the Day: Patient received orally intubated and mechanically ventilated in PSV 10/5& 25%. No ventilator changes made this shift. LP done at bedside. Continue to support with mechanical ventilation, wean as tolerated. RT Isaac Magali Jo MD - 12/21/2019 11:00 AM EDT MICU STAFF PROGRESS NOTE Critical Care Medicine Author: Magali Jo MD Patient seen and examined on critical care rounds. Brief HPI: Timbo Su is a 64 y.o. man with history of advanced Parkinson's disease managed withdeep brain stimulator and medications now in the ICU with acute on chronic encephalopathy and unexplained fevers. He has not improved despite therapy with antibiotics. Multiple etiologies under consideration. Active Problem and Important Diagnoses: ?? Acute encephalopathy ?? Atrial fibrillation with rapid ventricular response ?? Fever ?? Parkinsonism ?? Thrombocytopenia ?? Leukopenia ?? Abnormal liver test ?? Elevated ferritin ASSESSMENT, MANAGEMENT, and DECISION MAKING: Remains altered and febrile. Lumbar puncture was attempted last night but unsuccessful, was scheduled for LP today but Dr. Dodd was able to obtain CSF for us before we needed fluoroscopy. Studies inprocess. Etiology of these findings is unclear to me. Serotonin syndrome a consideration, but off of medications at this time point this seems unlikely. He has not clearly improved since return of Sinemet, but fever was down overnight. Noting pattern of leukopenia with thrombocytopenia and abnormal liver test, tickborne infection is considered. This should be well covered by his present ceftriaxone but we will send an acute tickborne illness panel. He has been stable on minimal ventilatory support. We would likely further wean his pressure support. Heart rate is better, although not optimally, controlled with diltiazem. He may require dual nataliya blockade. Transthoracic echocardiogram has been performed but not read. EXAM: Physical Exam Constitutional: He appears toxic. He is sedated and intubated. Eyes: Pupils are equal, round, and reactive to light. Cardiovascular: Normal heart sounds. An irregular rhythm present. Tachycardia present. Pulmonary/Chest: Effort normal and breath sounds normal. He is intubated. Abdominal: Soft. He exhibits no distension. Neurological: He is unresponsive. He displays tremor. He exhibits abnormal muscle tone. GCS eye subscore is 1. GCS verbal subscore is 1. GCS motor subscore is 5. Skin: Skin is warm and dry. Last value Range last 24 hrs Temperature Temp: 37.3 ??C (99.1 ??F) Temp: [36.2 ??C (97.2 ??F)-39.3 ??C (102.7 ??F)] Heart Rate Heart Rate: (!) 113 Heart Rate: [88-160] Blood Pressure BP: 102/68 BP: (82-155)/(57-92) Respiratory Rate Resp: 22 Resp: [14-33] SpO2 SpO2: 97 % SpO2: [93 %-100 %] Art BP BP (Arterial Line): -- Last Ht 12/20/19 180.3 cm (5' 10.98) Last Wt 12/21/19 103.7 kg (228 lb 9.9 oz) Body mass index is 31.9 kg/m??. IS PATIENT CRITICALLY ILL ? Is there a high potential of sudden, clinically significant, or life threatening deterioration? Yes Is there a need for direct personal assessment and management to treat/prevent multiple vital organfailure/deterioration? Yes If this patient is not critically ill, I certify the patient requires continued in-patient hospitalization for: NA PATIENT IS CRITICALLY ILL WITH THESE DIAGNOSES BEING MANAGED BY [facility] TEAM: Encephalopathy Acute I personally performed 40 minutes of aggregate critical care time exclusive of procedures and teaching. This includes time spent during direct patient evaluation and reassessment, interpreting diagnostic tests, directing life and/or organ supporting interventions and documentation on the unit. Magali Jo MD, PhD 12/21/2019 Daniel Mooney MD - 12/21/2019 10:34 AM EDT Neurology Consult Progress Note - 12/21/2019 PCP: Griselda Stanley MD Attending: Magali Jo MD ID: Timbo Su is a 64 y.o. male with PMHx of advanced Parkinson's disease (s/p DBS and follows with Dr. Vishnu Hooper in neurology clinic), DM, HTN, HLD, neuropathy who was transferred from [facility] for further evaluation of worsening mental status in the setting of fevers of unknown origin. Interval Hx / Subjective: - LP attempted by multiple providers at bedside last night without success; plan for IR LP today - Intubated for procedures - Repeat head CT shows some vague bioccipital hypoattenuation (on my review, I favor streak artifact) - Neurologic exam stable Current Medications: Scheduled Meds: ??? insulin lispro 1-5 Units Subcutaneous TID AC ??? sodium chloride 0.9 % (flush) 5 mL Intravenous BID ??? ampicillin 2 g Intravenous Q4H ENA ??? cefTRIAXone 2 g Intravenous Q12H ??? vancomycin 1.75 g Intravenous Q12H ??? [START ON 12/22/2019] Vancomycin Level - MAR Order Reminder NOT APPLICABLE Once ??? acyclovir 10 mg/kg/dose (Adjusted) Intravenous Q8H ??? carbidopa-levodopa 1 tablet Oral 4 Times Daily ??? entacapone 200 mg Oral TID Continuous Infusions: ??? dilTIAZem in D5W 10 mg/hr (12/21/19 0848) ??? propofoL 30 mcg/kg/min (12/21/19 0955) PRN Meds:.Glucose 40% oral gel OR dextrose 10% OR glucagon (human recombinant), sodium chloride 0.9 % (flush), lidocaine, metoprolol, potassium chloride in water OR potassium chloride in water OR potassium chloride in water Physical Exam: Vitals: Last value Range last 24 hrs Temperature Temp: 37.3 ??C (99.1 ??F) Temp: [36.2 ??C (97.2 ??F)-39.3 ??C (102.7 ??F)] Heart Rate Heart Rate: (!) 113 Heart Rate: [88-160] Blood Pressure BP: 102/68 BP: (82-155)/(57-92) Respiratory Rate Resp: 22 Resp: [14-33] SpO2 SpO2: 97 % SpO2: [93 %-100 %] I/O: 12/19 0701 - 12/20 0700 In: 2612 [I.V.:2612] Out: 640 [Urine:640] General: Appears stated age, WDWN, sedated HEENT: NC/AT, intubated Pulm: Ventilated CV: Intermittently irregular rhythm on monitor Extremities: No C/C/E. Peripheral pulses intact. Neuro: NB: Patient is intubated and sedated on propofol 50mcg/kg/min MS: Arouses to neither verbal nor tactile stimulation, but does resist manual eye opening. Follows zero axial / appendicular commands CN: CN II, III, IV, - PERRL with marked hippus bilaterally; VOR intact CN V, VII - Corneal reflex not assessed, face symmetric at rest. Resists manual eye opening on exam. CN IX, X - Cough/gag reflex not reported Sensorimotor: Atrophy: None appreciated. Abnormal movements: No fasciculations or myoclonus. RUE LUE RLE LLE Spontaneous Localizes* Withdraws* Postures* No response* X X X X * to noxious stimuli. Reflexes: DTRs deferred Toes upgoing bilaterally Coordination: Not assessable Gait: Not assessable Labs: Recent Results (from the past 24 hour(s)) POCT Glucose Result Value Ref Range POC Glucose 139 65 - 199 mg/dL Basic Metabolic Panel (non-fasting) Result Value Ref Range Glucose Lvl 150 65 - 199 mg/dL BUN 12 10 - 20 mg/dL Creatinine 0.90 0.80 - 1.50 mg/dL Sodium 136 135 - 145 mmol/L Potassium 3.6 3.5 - 5.0 mmol/L Chloride 97 (L) 98 - 107 mmol/L CO2 24 22 - 31 mmol/L Anion Gap 15 5 - 15 mmol/L Calcium 8.5 8.5 - 10.5 mg/dL eGFR 90 >=60 mL/min/1.73 m?? eGFR 104 >=60 mL/min/1.73 m?? Magnesium Result Value Ref Range Magnesium 0.57 (L) 0.69 - 1.07 mmol/L Phosphorus Result Value Ref Range Phosphorus 3.1 2.5 - 4.5 mg/dL Hepatic Function Panel Result Value Ref Range Total Protein 6.3 6.1 - 8.0 gm/dL Albumin 3.3 3.2 - 5.2 gm/dL AST 76 (H) 0 - 39 unit/L ALT 71 (H) 0 - 55 unit/L Alk Phos 100 40 - 130 unit/L Total Bilirubin 1.3 0.2 - 1.3 mg/dL Bili, Direct 0.7 (H) 0.0 - 0.3 mg/dL Prothrombin Time Result Value Ref Range PT 14.7 (H) 9.4 - 12.5 sec INR 1.3 APTT Result Value Ref Range PTT 32 25 - 37 sec Hemogram Result Value Ref Range WBC 2.9 (L) 4.0 - 9.5 x10(3)/mcL RBC 3.39 (L) 4.58 - 5.54 x10(6)/mcL Hemoglobin 10.2 (L) 13.7 - 16.5 gm/dL Hematocrit 29.5 (L) 40.5 - 48.5 % MCV 87.0 82.9 - 93.1 fL MCH 30.1 27.5 - 32.1 pg MCHC 34.6 32.0 - 35.7 gm/dL Platelets 108 (L) 145 - 357 x10(3)/mcL RDWSD 43.6 36.0 - 45.0 fL RDWCV 13.6 11.4 - 13.8 % MPV 10.9 7.6 - 12.9 fL nRBC % Auto 0.0 % nRBC Abs Auto 0.000 0.000 - 0.000 x10(3)/mcL Differential, Automated Result Value Ref Range Neutrophils % 51.1 % Neutr Abs (ANC) 1.50 (L) 1.70 - 6.10 x10(3)/mcL Lymphocytes % 33.3 % Lymphocytes Abs 1.0 0.9 - 3.2 x10(3)/mcL Monocytes % 13.9 % Monocyte Abs 0.4 0.3 - 0.9 x10(3)/mcL Eosinophils % 0.7 % Eosinophils Abs 0.0 0.0 - 0.4 x10(3)/mcL Basophils % 0.3 % Basophils Abs 0.0 0.0 - 0.1 x10(3)/mcL Immature Gran % 0.70 % Anneliese Gran Abs 0.02 0.00 - 0.04 x10(3)/mcL CK Result Value Ref Range CK, Total 447 (H) 0 - 200 unit/L Scan, Peripheral Blood Result Value Ref Range Plat Estimate Decreased RBC Morphology Abnormal Polychromasia Present >5/HPF Blood Gas Venous Result Value Ref Range pH Manny 7.43 (H) 7.32 - 7.42 pCO2 Manny 40 (L) 41 - 51 mmHg pO2 Manny 21 (L) 25 - 40 mmHg HCO3 Manny 25.8 mmol/L BE Manny 1.5 mmol/L Hgb Blood Gas 11.0 (L) 13.7 - 16.5 gm/dL O2HB Manny 34.6 % COHB Manny 1.0 % METHB Manny 0.3 <=1.5 % Na Whole Blood 136 135 - 145 mmol/L K Whole Blood 3.8 3.5 - 5.0 mmol/L ICa Whole Blood 1.09 (L) 1.15 - 1.33 mmol/L CL Whole Blood 102 98 - 107 mmol/L Gluc Whole Bld 151 65 - 199 mg/dL Lactate WB 1.5 0.5 - 2.2 mmol/L BGas Source Venous Urinalysis with reflex Culture Result Value Ref Range Glucose UA Negative Negative mg/dL Protein UA 100 (A) Negative mg/dL Bilirubin UA Small (A) Negative mg/dL Urobilinogen UA 4.0 (A) Normal mg/dL pH UA 6.0 5.0 - 8.0 Blood UA Large (A) Negative mg/dL Ketones UA >=80 (CRIT) Negative mg/dL Nitrite UA Negative Negative Leukocytes UA Trace (A) Negative mcL Appearance UA Clear Clear Spec [place]e UA 1.026 1.002 - 1.030 Color UA Dark Yellow Yellow Culture Reflexed No Urinalysis Microscopic Exam Result Value Ref Range RBC UA >100 (H) 0 - 3 /HPF WBC UA 4 (H) 0 - 3 /HPF Squam Epith UA 4 <=4 /HPF Hyaline Cast UA 2 0 - 2 /LPF POCT Glucose Result Value Ref Range POC Glucose 165 65 - 199 mg/dL CK Result Value Ref Range CK, Total 288 (H) 0 - 200 unit/L Basic Metabolic Panel (non-fasting) Result Value Ref Range Glucose Lvl 180 65 - 199 mg/dL BUN 15 10 - 20 mg/dL Creatinine 0.88 0.80 - 1.50 mg/dL Sodium 137 135 - 145 mmol/L Potassium 4.0 3.5 - 5.0 mmol/L Chloride 101 98 - 107 mmol/L CO2 21 (L) 22 - 31 mmol/L Anion Gap 15 5 - 15 mmol/L Calcium 8.3 (L) 8.5 - 10.5 mg/dL eGFR 91 >=60 mL/min/1.73 m?? eGFR 105 >=60 mL/min/1.73 m?? Magnesium Result Value Ref Range Magnesium 0.81 0.69 - 1.07 mmol/L Phosphorus Result Value Ref Range Phosphorus 3.8 2.5 - 4.5 mg/dL Hepatic Function Panel Result Value Ref Range Total Protein 5.9 (L) 6.1 - 8.0 gm/dL Albumin 2.8 (L) 3.2 - 5.2 gm/dL AST 68 (H) 0 - 39 unit/L ALT 69 (H) 0 - 55 unit/L Alk Phos 91 40 - 130 unit/L Total Bilirubin 1.0 0.2 - 1.3 mg/dL Bili, Direct 0.6 (H) 0.0 - 0.3 mg/dL Hemogram Result Value Ref Range WBC 3.1 (L) 4.0 - 9.5 x10(3)/mcL RBC 3.25 (L) 4.58 - 5.54 x10(6)/mcL Hemoglobin 9.9 (L) 13.7 - 16.5 gm/dL Hematocrit 28.5 (L) 40.5 - 48.5 % MCV 87.7 82.9 - 93.1 fL MCH 30.5 27.5 - 32.1 pg MCHC 34.7 32.0 - 35.7 gm/dL Platelets 100 (L) 145 - 357 x10(3)/mcL RDWSD 44.1 36.0 - 45.0 fL RDWCV 13.7 11.4 - 13.8 % MPV 10.9 7.6 - 12.9 fL nRBC % Auto 0.0 % nRBC Abs Auto 0.000 0.000 - 0.000 x10(3)/mcL Differential, Automated Result Value Ref Range Neutrophils % 57.5 % Neutr Abs (ANC) 1.77 1.70 - 6.10 x10(3)/mcL Lymphocytes % 27.9 % Lymphocytes Abs 0.9 0.9 - 3.2 x10(3)/mcL Monocytes % 13.0 % Monocyte Abs 0.4 0.3 - 0.9 x10(3)/mcL Eosinophils % 0.3 % Eosinophils Abs 0.0 0.0 - 0.4 x10(3)/mcL Basophils % 0.3 % Basophils Abs 0.0 0.0 - 0.1 x10(3)/mcL Immature Gran % 1.00 % Anneliese Gran Abs 0.03 0.00 - 0.04 x10(3)/mcL Scan, Peripheral Blood Result Value Ref Range Plat Estimate Decreased RBC Morphology Abnormal Hypochromia Slight Toxic Granulation Present BLOOD GAS 2 ARTERIAL Result Value Ref Range pH Art 7.43 7.35 - 7.45 pCO2 Art 36 35 - 45 mmHg pO2 Art 95 85 - 104 mmHg HCO3 Art 23.4 20.0 - 26.0 mmol/L BE Art -0.9 -3.0 - 3.0 mmol/L Hgb Blood Gas 11.2 (L) 13.7 - 16.5 gm/dL O2HB Art 96.1 94.0 - 97.0 % COHB Art 0.0 % METHB Art 0.3 <=1.5 % Na Whole Blood 133 (L) 135 - 145 mmol/L K Whole Blood 3.9 3.5 - 5.0 mmol/L ICa Whole Blood 1.08 (L) 1.15 - 1.33 mmol/L CL Whole Blood 103 98 - 107 mmol/L Gluc Whole Bld 180 65 - 199 mg/dL Lactate WB 1.6 0.5 - 2.2 mmol/L FIO2 Art 30 % PF Ratio Art 317 Iron and TIBC Result Value Ref Range Iron 21 (L) 45 - 160 mcg/dL TIBC 158 (L) 250 - 450 mcg/dL Iron Saturation 13 (L) 20 - 50 % Ferritin Result Value Ref Range Ferritin 726 (H) 30 - 400 ng/mL Electrolytes panel Result Value Ref Range Sodium 138 135 - 145 mmol/L Potassium 4.0 3.5 - 5.0 mmol/L Chloride 101 98 - 107 mmol/L CO2 21 (L) 22 - 31 mmol/L Anion Gap 16 (H) 5 - 15 mmol/L Diagnostic Tests and Imaging: CT Head (12/21/2019): Question bioccipital hypoattenuation (particularly on the LEFT), difficult to assess given extensivestreak artifact although appears slightly more conspicuous compared to prior CT 12/20/2019; pathologyin this region cannot be excluded. No acute intracranial hemorrhage or mass effect identified. Dental disease. Assessment and Plan: Timbo Su is a 64 y.o. male with PMHx of advanced Parkinson's disease (s/p DBS and follows withDrKush Hooper in neurology clinic), DM, HTN, HLD, neuropathy who was transferred from [facility] for further evaluation of worsening mental status in the setting of fevers of unknown origin. 12/20: Still pending LP. No significant change in his exam. Given the continued issues with streak artifact and bioccipital hypoattenuation, would get MRI for better visualization. Will await further results and continue monitor. Recommendations: - Continue empiric coverage for bacterial and viral meningitis - Continue home Sinemet - Lumbar puncture: Cell count, glucose, protein, HSV, VZV, cryptococcal antigen body fluid hold - MRI Brain w/wo contrast ? X Consult service will continue to follow patient. Recommendations are above, please page [phone] if further consultation required. ?? Daniel Mooney MD Neurology, PGY-3 Consult Neurology Service #[id number] 12/21/2019 Associated attestation - Catie Cardoso MD - 12/22/2019 11:07 AM EDT I saw and evaluated the patient with the resident. I have reviewed the medical records and the patient's history during the visit and I agree with the details as written. My physical examination confirms the findings. The assessment and plan were formulated in discussion with me at the time of the visit and I agree with them as documented. MD Vaibhav Bradley Karen, MD - 12/21/2019 8:37 AM EDT Images from the original note were not included. FLUORO PRE-PROCEDURE NOTE Name: Timbo Su Date of : 1955 Referring Physician: Dr. Bubba Sinclair Indication: AMS Planned Procedure: fluoro guided lumbar puncture Chief Complaint/HPI: 64 y.o. male with a pmhx of Parkinson's Disease s/p DBS, T2DM, HTN, HLD, previous suicide attempt with overdose of Sinemet who presents as a transfer from [facility] following 4 days of AMS, worsening tremor, fever, general lethargy, and malaise. Radiology consulted for fluoroscopically guided lumbar puncture. Patient intubated requiring anesthesia. Patient Active Problem List Diagnosis Code ??? Parkinson's disease G20 ??? Hypertension I10 ??? Hyperlipidemia E78.5 ??? [...] S/P deep brain stimulator placement Z96.89 ??? Altered mental status R41.82 Allergies Allergen Reactions ??? Comtan [Entacapone] Nausea Only Shaking, muscle weakness. Inpatient medications:Scheduled Meds: ??? insulin lispro 1-5 Units Subcutaneous TID AC ??? sodium chloride 0.9 % (flush) 5 mL Intravenous BID ??? ampicillin 2 g Intravenous Q4H ENA ??? cefTRIAXone 2 g Intravenous Q12H ??? vancomycin 1.75 g Intravenous Q12H ??? [START ON 12/22/2019] Vancomycin Level - MAR Order Reminder NOT APPLICABLE Once ??? acyclovir 10 mg/kg/dose (Adjusted) Intravenous Q8H ??? carbidopa-levodopa 1 tablet Oral 4 Times Daily ??? entacapone 200 mg Oral TID Continuous Infusions: ??? dilTIAZem in D5W 10 mg/hr (12/21/19523) ??? propofoL 50 mcg/kg/min (12/21/19522) PRN Meds:.Glucose 40% oral gel OR dextrose 10% OR glucagon (human recombinant), sodium chloride 0.9 % (flush), lidocaine, metoprolol, potassium chloride in water OR potassium chloride in water OR potassium chloride in water Labs: Lab Results Component Value Date/Time WBC 3.1 (L) 12/21/2019 12:00 AM HCT 28.5 (L) 12/21/2019 12:00 AM PLATELET 100 (L) 12/21/2019 12:00 AM INR 1.3 12/20/2019 05:25 PM BUN 15 12/21/2019 12:00 AM CREATININE 0.88 12/21/2019 12:00 AM Imaging: CT Head 12/21/2019 Assessment / Plan: 64 y.o. male with a pmhx of Parkinson's Disease s/p DBS, T2DM, HTN, HLD, previous suicide attempt with overdose of Sinemet who presents as a transfer from [facility] following4 days of AMS, worsening tremor, fever, general lethargy, and malaise. Radiology consulted for fluoroscopically guided lumbar puncture. Patient intubated requiring anesthesia. Medications to hold: none Planned access site: tbd Position: prone Consent: phone consent prior to procedure Yudy Esposito MD Pager [phone] Emerita Sandhu MD - 12/21/2019 6:10 AM EDT Critical Care Progress Note Patient Name: Timbo Su Date of Admission: 12/20/2019 ( Hospital Day 1 day ) Service: Critical Care Medicine - Blue Team 1 #[id number] ID: 64 y/o man with advanced Parkinson's disease s/p DBS, HTN, DM and hyperlipidemia who was admitted to [facility] 3 days ago with worsening hallucinations and encephalopathy, worsening tremor, and fevers, with course complicated by atrial fibrillation w/ RVR. Interval Events: -Hemodynamics: no pressor requirement, SBP 90s - 100s -Vent settings: intubated for airway protection, PS, 25%, 10/, RR 16 -21 -Sedation: propofol 50 -UOP 585 (0.5-0.7cc/kg/h), net positive 2L -24 hr: Admitted yesterday evening, febrile and with altered mental status. Minimally following commands. Multiple attempts to obtain CSF failed. Fluoro guided ordered for today. -Intermittent afib w/ RVR, up to 140s. Did not respond to metop, was started on dilt ggt with improved control. Access: Peripheral IV Line - Single Lumen 12/20/19 1600 cephalic vein (lateral side of arm), right 20 gauge (Active) Peripheral IV Line - Single Lumen 12/20/19 1800 cephalic vein (lateral side of arm), left 18 gauge;1in length (Active) Peripheral IV Line - Single Lumen 12/20/19 cephalic vein (lateral side of arm), left 20 gauge (Active) Scheduled Meds: ??? insulin lispro 1-5 Units Subcutaneous TID AC ??? sodium chloride 0.9 % (flush) 5 mL Intravenous BID ??? ampicillin 2 g Intravenous Q4H ENA ??? cefTRIAXone 2 g Intravenous Q12H ??? vancomycin 1.75 g Intravenous Q12H ??? [START ON 12/22/2019] Vancomycin Level - MAR Order Reminder NOT APPLICABLE Once ??? acyclovir 10 mg/kg/dose (Adjusted) Intravenous Q8H ??? carbidopa-levodopa 1 tablet Oral 4 Times Daily ??? entacapone 200 mg Oral TID Continuous Infusions: ??? dilTIAZem in D5W 10 mg/hr (12/21/19 0848) ??? propofoL 20 mcg/kg/min (12/21/19 1047) PRN Meds:.Glucose 40% oral gel OR dextrose 10% OR glucagon (human recombinant), sodium chloride 0.9 % (flush), lidocaine, metoprolol, potassium chloride in water OR potassium chloride in water OR potassium chloride in water Physical Exam: Last value Range last 24 hrs Temperature Temp: 37.3 ??C (99.1 ??F) Temp: [36.2 ??C (97.2 ??F)-39.3 ??C (102.7 ??F)] Heart Rate Heart Rate: (!) 113 Heart Rate: [88-160] Blood Pressure BP: 102/68 BP: (82-155)/(57-92) Respiratory Rate Resp: 22 Resp: [14-33] SpO2 SpO2: 97 % SpO2: [93 %-100 %] General: intubated and sedated Neuro: pupils 3cm equal, round, reactive. Withdraws to noxious stimuli, no nuchal rigidity, no rigidity ruby UE/LE, +clonus Lungs: CTAB, no wheezes/rales/rhonci Heart: IRIR, no murmurs Abdomen: soft, protuberant Extremities: warm, well perfused, pulses 2+ ruby U/LE Skin: no rashes or ecchymosis ABG: Recent Labs 12/21/19 0009 PHART 7.43 [id number] 36 PO2ART 95 [id number] 23.4 Ins/Outs: Intake/Output Summary (Last 24 hours) at 12/21/2019 1106 Last data filed at 12/21/2019 0800 Gross per 24 hour Intake 3051 ml Output 800 ml Net 2251 ml Patient Vitals for the past 168 hrs: Weight 12/21/19 0600 103.7 kg (228 lb 9.9 oz) 12/20/19 1957 103 kg (227 lb 1.2 oz) Vent settings: Oxygen Therapy O2 Device: Ventilator O2 Flow Rate (L/min): 2 L/min FiO2 (%): 25 % Labs: Recent Labs 12/21/19 0000 12/20/19 1725 WBC 3.1* 2.9* HGB 9.9* 10.2* HCT 28.5* 29.5* PLATELET 100* 108* Recent Labs 12/21/19 0315 12/21/19 0000 12/20/19 1725 NA 138 137 136 K 4.0 4.0 3.6 CL 101 101 97* CO2 21* 21* 24 BUN -- 15 12 CREATININE -- 0.88 0.90 Recent Labs 12/21/19 0000 12/20/19 1725 AST 68* 76* ALT 69* 71* ALKPHOS 91 100 BILITOT 1.0 1.3 BILIDIR 0.6* 0.7* Recent Labs 12/21/19 0000 12/20/19 1725 CALCIUM 8.3* 8.5 MAGNESIUM 0.81 0.57* PHOS 3.8 3.1 Recent Labs 12/20/19 1725 INR 1.3 PT 14.7* PTT 32 Recent Labs 12/21/19 0000 12/20/19 1725 CK 288* 447* Microbiology: COVID-19 negative 12/19 Imaging/Studies: Results for orders placed or performed during the hospital encounter of 05/10/20 XR Chest One View (Exam End: 12/21/2019 12:19 AM) Impression 1. Endotracheal tube projects over satisfactory position. 2. Low lung volumes and mild atelectasis. Preliminary report signed by: Trevor Holbrook at 12/21/2019 12:50 AM I have personally reviewed the image(s) and the resident's interpretation and agree with the findings, Froilan Barker at 12/21/2019 12:56 AM Thank you for letting us participate in the care of this patient. For questions regarding this report, please contact the number below. Abdomen 1 view (Generic) (Exam End: 12/21/2019 12:19 AM) Impression FINDINGS/IMPRESSION: Esophagogastric tube side port and tip project over the stomach. Preliminary report signed by: Trevor Holbrook at 12/21/2019 12:47 AM I have personally reviewed the image(s) and the resident's interpretation and agree with the findings, Froilan Barker at 12/21/2019 12:54 AM Thank you for letting us participate in the care of this patient. For questions regarding this report, please contact the number below. Head wo Contrast (Generic) (Exam End: 12/21/2019 4:55 AM) Impression Question bioccipital hypoattenuation (particularly on the LEFT), difficult to assess given extensive streak artifact although appears slightly more conspicuous compared to prior CT 12/20/2019; pathology in this region cannot be excluded. No acute intracranial hemorrhage or mass effect identified. Dental disease. I have personally reviewed the image(s) and the resident's interpretation and agree with the findings, Froilan Barker at 12/21/2019 7:15 AM Thank you for letting us participate in the care of this patient. For questions regarding this report, please contact the number below. Assessment: 64 y/o man with advanced Parkinson's disease s/p DBS, HTN, DM and hyperlipidemia who [facility] with worsening hallucinations and encephalopathy, worsening tremor, and fevers. Concern for infection, will obtain fluoro guided LP and send for broad infectious work-up. Given pancytopenia, may be prone to opportunistic infection. Also question of drug effect at play given new methylphenidate rx, as well as missing dose of sinemet yesterday prior to admission. Will continue broad empiric treatment, and send for tick borne illness as well. Will work towards MRI brain approval, however needs signed form from DBS placement neurosurgeon and to turn the DBS off. For now will focus on LP, as post-LP MRI may show false neg leptomeningeal enhancement. Obtaining TTE for CV eval given newly diagnosed Afib. Summary of Today's Plan (12/21/19): -Fluoro-guided LP (time TBD today) -Continue empiric therapy -Tick born panel -TTE Neuro: #Concern for Meningitis - Acyclovir 10mg/kg/dose q8h - Ampicillin 2g q4h - Ceftriaxone 2g q12h - Vancomycin - per dosing protocol - F/u Fluoro LP: cultures, routine labs, HSV, VZV, fungal, cryptococcal - F/u neuro checks. - Consider MRI Brain ?? Pulm #Respiratory alkalosis - resolved #Ventilated for airway protection - Mechanical ventilation - Pressure support - Trend ABGs ?? CV #Atrial Fibrillation with RVR - Ordered TTE - S/p IV metoprolol boluses 20mg total - S/p Diltiazem IV bolus 20mg - On diltiazem gtt with goal HR low 100s. - Consider dig if unable to control - Hold anticoagulation, will likely need long-term AC when able ?? GI #Transaminitis - Noted to be a baseline issue noted on outpatient documentation - Continue to trend INR, LFTs - Diet: NPO diet (Give Meds) ?? /FEN #Electrolyte Optimization - K>4 - Mg >1 ?? #Elevated CK, Concern for muscle breakdown/rhabdo - resolving - Continue to trend CK q6h ?? ID #Concern for Meningitis - Empiric abx and Antiviral plan as above - XR fluoro guided LP with opening pressure ?? Heme #Normocytic anemia - OSH B12/folate wnl - Iron studies c/w anemia of chronic disease - Continue to monitor ?? #Thrombocytopenia - Appears to be chronic - Could be exacerbated by infection - Continue to trend ?? Endo #Type 2 Diabetes - SSI - Hold home glipizide ? Misc Code status: Full Code Dispo: MICU DVT PPx - Holding in anticipation of Fluoro guided LP Emerita Sandhu MD Internal Medicine PGY-1 Blue Team 1, Team Pager # [phone] Yudy Curiel RCP - 12/21/2019 3:13 AM EDT AMV Protocol: SBT Protocol: SBT: passed Vent Settings: Ventilator Mode: PS/CPAP PEEP Set: 5 FiO2: 25 % PSV: 10 Ventilator Measurements: Resp: 16 Vt Spontaneous: 514 Ve: 12.5 SpO2: 98 % EtCO2: 33 mmHg Airway: 8.0 @ 24 cm at the Teeth. Skin Integrity: WDL Breath Sounds: bilat clear Secretions: Small pale yellow secretions Assessment / Events / Plan of the Day: Pt transferred to the unit on 1999 Pt was intubated by anesthesia. Placed in VC 600 x 14. 2105 Changed to PSV 10/5. Oxygen decreased. Passed SBT this morning ABG 0009 7.43/36/95 Lac 1.65 Continue to follow. YUDY CURIEL RCP Kavon Celaya MD - 12/20/2019 7:21 PM EDT MICU STAFF PROGRESS NOTE Critical Care Medicine Author: KAVON CELAYA Patient seen and examined on transfer to the MICU. Briefly, this is a 64 y/o man with advanced Parkinson's disease s/p DBS, HTN, DM and hyperlipidemia who was admitted to [facility] 3 days ago with worsening hallucinations and encephalopathy, worsening tremor, and fevers. He was initially treated for a UTI, however his fevers and tremors persisted and his mental status continued to decline. He was transferred to [facility] today to hospital medicine. This afternoon, he was noted to be increasingly lethargic and less responsive and was transferred to the MICU. He has also had intermittent rapid afibwhich recurred on arrival to the MICU. By report, he had been taking roughly 75% of his sinemet doses prior to admission, but was not able to take any for the past 24 hours. He has not had any record of new antipsychotic medications or change in his SSRI dosing. Active problems: Acute encephalopathy, possibly infectious Severe parkinson's disease Possible levodopa withdrawal Possible serotonin syndrome Exam: Last value Range last 24 hrs Temperature Temp: (!) 39 ??C (102.2 ??F) Temp: [38.3 ??C (100.9 ??F)-39 ??C (102.2 ??F)] Heart Rate Heart Rate: (!) 151 Heart Rate: [131-160] Blood Pressure BP: 121/70 BP: (110-155)/(64-92) Respiratory Rate Resp: (!) 33 Resp: [26-33] SpO2 SpO2: 98 % SpO2: [93 %-98 %] Art BP BP (Arterial Line): -- Ventilator: RA Current Drips: None Unresponsive to voice, mildly tachypneic Loud snoring intermittently Roving lateral eye movements Pupils equal and reactive Lungs clear bilaterally Heart regular Abdomen soft, non-tender No extremity edema Some non-rhythmic myoclonic jerking, increased motor tone with passive manipulation Not hyper-reflexic No rashes or joint erythema Labs/studies: WBC 2.9 Hg 10.2 plt 108 Na 136 K 3.6 Cl 97 CO2 24 BUN 12 Creat 0.9 AST 76 ALT 71 TB 1.3 CK 447 U/A 4 WBCs COVID negative on 12/17 ASSESSMENT, MANAGEMENT, and DECISION MAKIN64 y/o man with advanced parkinson's now admitted with acute progressive encephalopathy, fevers, andmyoclonic movements. By report, there were no recent changes to his medications which makes serotonin syndrome or NMS less likely. He was also compliant with sinemet prior to admission, which makes withdrawal less likely as a cause of his initial presentation. It is certainly possible this is now a contributing factor to his worsening fever and mental status as he has not been able to take it for thepast day. His presentation is concerning for an infectious encephalitis. He will require intubation for LP and OG tube placement to restart his sinemet. Pending LP results, he will need treatment with broad spectrum antibiotics including vanc, acyclovir and ceftriaxone. If his LP is negative, we will discuss the possible merits of EEG with neurology. IS PATIENT CRITICALLY ILL ? Is there a high potential of sudden, clinically significant, or life threatening deterioration? Yes Is there a need for direct personal assessment and management to treat/prevent multiple vital organfailure/deterioration? Yes If this patient is not critically ill, I certify the patient requires continued in-patient hospitalization for [ ] PATIENT IS CRITICALLY ILL WITH THESE DIAGNOSES BEING MANAGED BY [facility] TEAM: Arrhythmia Atrial fibrillation Paroxysmal Encephalopathy Acute I personally performed 45 minutes of aggregate critical care time exclusive of procedures and teaching. This includes time spent during direct patient evaluation and reassessment, interpreting diagnostic tests, directing life and/or organ supporting interventions and documentation on the unit. KAVON CELAYA Bubba Sinclair MD - 12/20/2019 5:45 PM EDT Critical Care Blue Team Transfer Note Admit date: Hospital day: Service: Attending 12/20/2019 1 ICU Blue Team Pager [phone] Kavon Celaya MD Patient Description: Mr. Su is a 64 year old male with a pmhx of Parkinson's Disease s/p DBS, T2DM, HTN, HLD, previous suicide attempt with overdose of Sinemet who presents as a transfer from [facility] following 4 days of AMS, worsening tremor, fever, general lethargy, and malaise. Major 24 Hour Events: [facility] OSH diagnosed him with a suspected UTI, although cultures returned with mixed growth. He received vancomycin and zosyn at the OSH. Neurology was contacted at they advised CT head and aLumbar Puncture. Unfortunately, they were unable to obtain either, due to persistent movement. Per [facility], he shakes all four extremities and becomes stiff with each episode, they were briefand stereotypical. He was transferred to [facility] for further Neurologic and infectious workup. Per the family, over the past 3 weeks he had worsening balance, dizziness, occasional hallucinations, and increased fatigue and lethargy. Moreover, 1 week ago, his symptoms worsened with an additional fall through wood paneling in his home and developed rib fractures and 2 vertebrale. He has a history of suicide attempts, with the most recent being in August 2019 when he tried to overdose on sinemet. On arrival at [facility], Mr. Su was febrile, tachycardic with rates in [id number], demonstrating atrial fibrillation with RVR, and obtunded. He was initially admitted to hospital medicine. He was given IV metoprolol and magnesium, which returned him to Sinus Rhythm. Neurology was consulted and noted tremors and rigidity secondary to NMS from Sinemet withdrawal vs. ORTHOPEDIC SURGEON infection vs. Serotonin Syndrome werementioned. He was loaded with Keppra at the OSH. His sinemet dose was held a the OSH, but was givne on the first 2 days of admission 12/17, 12/18. Critical care was consulted, and he was transferred to the ICU given worsening neurologic status andneed for intubation for airway protection. Vitals: Temp: [36.9 ??C (98.4 ??F)-39.3 ??C (102.7 ??F)] Heart Rate: [122-160] Resp: [14-33] BP: (82-155)/(57-92) SpO2: [93 %-100 %] Heart Rate from SpO2: [95 bpm-150 bpm] I/O: Intake/Output Summary (Last 24 hours) at 12/21/2019 0128 Last data filed at 12/21/2019 0000 Gross per 24 hour Intake 733 ml Output 300 ml Net 433 ml Patient Vitals for the past 168 hrs: Weight 12/20/197 103 kg (227 lb 1.2 oz) Physical Exam General: intubated, sedated, appearing stated age. Neuro: RASS -4, CN II-XII grossly intact; Brisk pupillary response. grossly non- focal. No muscular rigidity. 2 beats of ankle clonus bilaterally. HEENT: PERRLA, no pallor, anicteric conjunctiva. OP clear, MMM. Cardiac: Normal rate, regular rhythm, no m/g/r. Respiratory: Nonlabored. CTA-B without wheezes/rhonchi/rales. Abd: NABS; soft, non-tender, non-distended, no obvious masses Ext: WWP, no C/C/E. Pulses full and equal. Skin: Intact without rash; no lesions, no petechiae Vent: Mode PEEP PS RR TV FIO2 MV PS 5 10 17 600 35 N/a Lines: 2x peripheral IV ET Tube Drips: - Propofol 50mcg/kg/min - Diltiazem 5-15 Meds: Scheduled Meds: ??? sodium chloride 0.9 % (flush) 5 mL Intravenous BID ??? magnesium sulfate 2 g Intravenous Once ??? ampicillin 2 g Intravenous Q4H ENA ??? cefTRIAXone 2 g Intravenous Q12H ??? vancomycin 1.75 g Intravenous Q12H ??? [START ON 12/22/2019] Vancomycin Level - MAR Order Reminder NOT APPLICABLE Once ??? acyclovir 10 mg/kg/dose (Adjusted) Intravenous Q8H ??? carbidopa-levodopa 1 tablet Oral 4 Times Daily ??? entacapone 200 mg Oral TID PRN Meds: sodium chloride 0.9 % (flush), lidocaine, metoprolol, potassium chloride in water OR potassium chloride in water OR potassium chloride in water Labs CBC: Recent Labs 12/21/19 0000 12/20/19 1725 WBC 3.1* 2.9* HGB 9.9* 10.2* PLATELET 100* 108* Chemistry: Recent Labs 12/21/19 0000 12/20/19 1725 NA 137 136 K 4.0 3.6 CL 101 97* CO2 21* 24 BUN 15 12 CREATININE 0.88 0.90 GLUCOSE 180 150 Recent Labs 12/21/19 0000 12/20/19 1725 CALCIUM 8.3* 8.5 MAGNESIUM 0.81 0.57* PHOS 3.8 3.1 LFT's: Recent Labs 12/21/19 0000 12/20/19 1725 BILITOT 1.0 1.3 BILIDIR 0.6* 0.7* ALBUMIN 2.8* 3.3 ALKPHOS 91 100 ALT 69* 71* AST 68* 76* Coags: Recent Labs 12/20/19 1725 PT 14.7* INR 1.3 PTT 32 Cardiac enzymes: Recent Labs 12/21/19 0000 12/20/19 1725 CK 288* 447* Venous Blood Gas 7.43/40/21 Micro (pertinent, last 24hr): - CSF cultures pending - Blood Cultures Pending - COVDI-19 RNA - Negative Radiology/Studies (pertinent, last 24hr) Impression, Active Problems with Plan Mr. Su is a 64 year old male with a history of Parkinson's disease with DBS and on Sinemet, priorsuicide attempt, and T2DM presenting as a transfer to the ICU due to obtundation. The etiology of his obtundation could be due to an NMS- like picture from sinemet withdrawal vs. meninigitis given his DBS instrumentation. We will need to empirically treat him for infectious meningitis with a combination of ampicillin/ceftriaxone/vancomycin/acyclovir. We will obtain a lumbar puncture to help further differentiate the etiology. He is demonstrating hyperthermia, diaphoresis, and mild clonus. This, in conjunction with his AMS, could represent sinemet withdrawal, although it was noted he received doses at the OSH. We will obtain enteric access and begin redosing him at his home dose. He is also demonstrating atrial fibrillation with rapid ventricular response with stable hemodynamics. We will continue to manage with beta-blockade and calcium channel blockers. Neuro: #Meningitis - Acyclovir 10mg/kg/dose q8h - Ampicillin 2g q4h - Ceftriaxone 2g q12h - Vancomycin - per dosing protocol - F/u LP - F/u neuro checks. - Will need to obtain CT head Pulm #Respiratory alkalosis - Secondary to likely infection vs. Tachypnea from sinemet withdrawal. - Mechanical ventilation - Pressure support - Trend ABGs CV #Atrial Fibrillation with RVR - S/p IV metoprolol boluses 20mg total - S/p Diltiazem IV bolus 20mg - On diltiazem gtt with goal HR low 100s. GI #Transaminitis - Noted to be a baseline issue noted on outpatient documentation - Continue to trend INR, LFTs - Diet: NPO diet (Give Meds) /FEN #Electrolyte Optimization - K>4 - Mg >1 #Elevated CK, Concern for muscle breakdown/rhabdo - Continue to trend CK q6h ID Meningitis - Abx and Antiviral plan as above - XR fluoro guided LP with opening pressure Heme #Normocytic anemia - F/u Iron studies #Thrombocytopenia - Appears to be chronic - Could be exacerbated by infection - Continue to trend Endo #Type 2 Diabetes - SSI - Hold home glipizide Misc Code status: Full Code Dispo: MICU DVT PPx - Holding in anticipation of Fluoro guided LP Bubba Sinclair MD ICU Blue Team, pager # [phone] 12/21/2019 documented in this encounter H&P Notes CarlozHuey - 12/25/2019 1:54 PM EDT HOSPITAL MEDICINE TRANSFER NOTE Date: 12/25/19 Patient Information Name: Timbo Su : 1955 PCP: Griselda Stanley MD PCP Admit Date: 12/20/2019 ID: Mr. Su is a 64 yo male with a pmhx of Parkinson's Disease s/p DBS, DM-II, HTN, HLD, sensory neuropathy, previous suicide attempt with Sinemet (reported in Neurology telephone encounter from 08/23/19) who presents as a transfer from [facility] following 4 days of AMS, worsening tremor, fever, general lethargy, and malaise. The OSH diagnosed him with a suspected UTI, though cultures returned w/ mixed growth. He received vancomycin and zosyn at the OSH; though given his worsening AMS, persistent fevers, tremors, ?myoclonos, he was transferred to the [facility] MICU for further management. Active Problems: Altered mental status Atrial fibrillation ICU COURSE: On arrival to the MICU on 12/19, patient was not following commands, extremely tremulous and febrile up to 102.7 F. Neurology was engaged on transfer, and there was concern for meningitis/encephalitis. In short, patient was empirically started on CTX, ampicillin, vancomycin, and acyclovir (that have all been stopped given clinical improvement and negative infectious work-up). LP was largely unremarkable; though viral meningitis remained a consideration (VZV pending). MRI was not done given patient was intermittently febrile, and per MRI safety, his DBS + fevers are not compatible with MRI (electrical engineering draftsperson warning). A hematologic process also remained a consideration (given intermittent fevers and pancytopenia), though smear appears stable. Of note, his ICU course was also complicated by paroxysmal AFib with RVR. He was continued on therapeutic lovenox, metoprolol, and diltiazem. Given his acute encephalopathy on admission and concern for aspiration the patient was intubated forairway protection; now, safely extubated on 12/23. He is currently alert with reasonable intact cognition, HDS, and markedly improved from admission. He was safely restarted on his sinemet and entacapone. Neurology reports his Parkinsonian symptoms appear to be at his outpatient baseline. Medications: Reviewed in eDH OBJECTIVE Last value Range last 24 hrs Temperature Temp: 37.8 ??C (100 ??F) Temp: [37.2 ??C (99 ??F)-38 ??C (100.4 ??F)] Heart Rate Heart Rate: 84 Heart Rate: [79-124] Blood Pressure BP: 124/65 BP: (87-137)/(53-108) Respiratory Rate Resp: 19 Resp: [18-27] SpO2 SpO2: 96 % SpO2: [92 %-99 %] Intake/Output Summary (Last 24 hours) at 12/25/2019 1355 Last data filed at 12/25/2019 1200 Gross per 24 hour Intake 2052 ml Output 2355 ml Net -303 ml Patient Vitals for the past 168 hrs: Weight 12/25/19 0400 105.3 kg (232 lb 2.3 oz) 12/24/19 0000 108.9 kg (240 lb 1.3 oz) 12/23/19 0000 106 kg (233 lb 11 oz) 12/22/19 0400 105.5 kg (232 lb 9.4 oz) 12/21/19 0600 103.7 kg (228 lb 9.9 oz) 12/20/19 1957 103 kg (227 lb 1.2 oz) Admit wt: 103 kg Physical Exam: Constitutional: Masked facies, confused (AAOx1 (self)), NAD HENT: Normocephalic, atraumatic Cardiovascular: Sinus rhythm, normal heart sounds and intact distal pulses. Exam reveals no gallop and no friction rub. No murmur heard. Pulmonary/Chest: Effort normal and breath sounds normal. No respiratory distress. No wheezes or rale. Abdominal: dobbhoff tube in place, belly soft, BSx4, NTND : Morris catheter in place Neurological: masked facies, w/ resting tremor, cogwheel rigidity improved from admission Skin: Skin is warm and dry. No rash noted. No erythema. Psychiatric: Judgment and thought content appear normal. LABS: Last 3 wbc, hgb, hct plt Recent Labs 12/25/19 0116 12/24/19 1655 12/24/19 0038 WBC 4.1 5.0 5.5 HGB 9.1* 9.7* 9.8* HCT 27.7* 29.1* 28.8* PLATELET 141* 149 136* Last 3 Lytes Recent Labs 12/25/19 0116 12/24/19 0608 12/24/19 0038 12/23/19 0020 NA 139 -- 133* -- 135 K 3.8 4.2 3.9 < > Not Perf CL 106 -- 100 -- 102 CO2 23 -- 21* -- 22 BUN 10 -- 10 -- 11 CREATININE 0.61* -- 0.64* -- 0.72* < > = values in this interval not displayed. Last 3 LFTs Recent Labs 12/24/19 0608 12/21/19 0000 12/20/19 1725 AST 76* 68* 76* ALT 60* 69* 71* ALKPHOS 140* 91 100 BILITOT 0.7 1.0 1.3 BILIDIR 0.5* 0.6* 0.7* Last Ca, Mg, Phos Recent Labs 12/25/19 0116 12/24/19 0038 12/23/19 0020 CALCIUM 8.2* 8.0* 8.2* PHOS 2.8 2.9 2.6 MAGNESIUM 0.77 0.69 0.78 Last 3 Coags Recent Labs 12/20/19 1725 PT 14.7* INR 1.3 PTT 32 MICROBIOLOGY: BCx (12/23): pending COVID-19 (12/19): negative BCx (12/19): NGTD CMV IgM (12/19): negative HIV 1/2 Ab and Ag (12/23): negative CSF (12/20): - Negative Cryptococcal Antigen - Negative Fungal Culture - Negative HSV-1 and HSV-2 PCR - Negative Enterovirus PCR Tick Borne Panel (12/20): negative PATHOLOGY: Peripheral Smear 12/24/19: DISCUSSION The patient's history of critical illness is noted and likely contributory to the hemogram findings.Bleeding should be investigated given the degree of polychromasia seen. Reticulated hemoglobin (RET-HE test offered under reticulocyte count) is a more sensitive indicator of current iron stores availab le for hemoglobin synthesis and can be ordered if clinically indicated. No schistocytes are apparenton this periperhal smear, however if there is clinical concern for hemolysis, correlation with additional laboratory testing is recommended; LDH, bilirubin, reticulocyte count, haptoglobin, DIC screen,and direct antiglobulin testing may provide a more definitive evaluation. The reported history of thrombocytopenia is noted, however??that abnormality appears to have essentially resolved itself at thetime of this study. CSF Cytology: DISCUSSION Cerebrospinal fluid, lumbar: predominantly lymphocytes histiocytes; likely reactive. Should lymphomabe a clinical consideration, suggest LLS (lymphoma leukemia screen) studies.??LLS study is optimal for evaluation of abnormal lymphocytic infiltrates and blasts in fluid specimens. IMAGING: CT Head 12/21/19: IMPRESSION Question bioccipital hypoattenuation (particularly on the LEFT), difficult to assess given extensivestreak artifact although appears slightly more conspicuous compared to prior CT 12/20/2019; pathology in this region cannot be excluded. No acute intracranial hemorrhage or mass effect identified. ECHO 12/21/19: SUMMARY: 1. Rhythm: AF with RVR. 2. The left ventricular chamber size is normal. Mild concentric left ventricular hypertrophy is observed. Basal septal hypertrophy is observed (2 cm). Global left ventricular systolic function appears hyperdynamic. Ejection fraction is estimated to be 75%. There are no left ventricular segmental wall motion abnormalities. 3. The right ventricle is normal in size. Right ventricular global systolic function is normal. Pulmonary artery hypertension could not be assessed due to inadequate tricuspid regurgitation jet. 4. There is no hemodynamically significant valve disease. 5. There is mild dilatation of the aortic root (4.1 cm). 6. See remainder of report for additional findings. ASSESSMENT AND PLAN Mr. Su is a 64 yo male with a pmhx of Parkinson's Disease s/p DBS, DM-II, HTN, HLD, sensory neuropathy, previous suicide attempt with Sinemet (reported in Neurology telephone encounter from 08/23/19)who presents as a transfer from [facility] following 4 days of AMS, worsening tremor, fever, general lethargy, and malaise. The OSH diagnosed him with a suspected UTI, though cultures returned w/mixed growth. He received vancomycin and zosyn at the OSH; though given his worsening AMS, persistent fevers, tremors, ?myoclonos, he was transferred to the [facility] MICU for further management. On arrival to the MICU on 12/19, patient was not following commands, extremely tremulous and febrile up to 102.7 F. Neurology was engaged on transfer, and there was concern for meningitis/encephalitis. As a result, Mr. Timbo Su was empirically started on CTX, ampicillin, vancomycin, and acyclovir (that have all been stopped given clinical improvement and negative infectious work-up). LP was largely unremarkable; though viral meningitis remained a consideration (VZV pending). MRI was not done given patient was intermittently febrile, and per MRI safety, his DBS + fevers are not compatible with MRI (electrical engineering draftsperson warning). A hematologic process also remains a consideration (given intermittent fevers and pancytopenia; now bicytopenic), though smear appears stable. Of note, his ICU course was also complicated by paroxysmal A Fib with RVR. He was continued on therapeutic lovenox, metoprolol, and diltiazem. We will need to engage the family and patient again to discuss risks and benefits of anti-coagulation. In transfer to Hospital Medicine on 12/24, patient is currently alert with reasonable intact cognition, HDS, and markedly improved from admission. We will continue to monitor for intermittent fevers; etiology remains unclear. He was safely restarted on his sinemet and entacapone in the MICU. Neurology reports his Parkinsonian symptoms appear to be at his outpatient baseline and have signed-off. Patient also remains with a dobhoff for tube feeding given original concern for aspiration and dysphagia. He was evaluated by ACROBATIC DANCER on 12/24 who did not note overt risks of aspiration, though recommended trialing a dysphagia soft diet with the dobhoff in place (for now) to assess oropharyngeal strength. They will also follow this up with a modified barium swallow for confirmation next week. Based on thecurrent findings, PT has recommended inpatient acute rehabilitation, swing bed when medically ready for hospital discharge. Otherwise, plan per below: #?Viral Meningitis #Fever of Unknown Origin - Monitor Temperature - No antiviral or antibiotics indicated given clinical improvement - BCx (12/23): pending - CSF panel (12/20): unremarkable - VZV pending - MRI was not done given patient was intermittently febrile, and per MRI safety, his DBS + fevers are not compatible with MRI (electrical engineering draftsperson warning) #Parkinson's Disease w/ DBS device - Neurology has signed off; patient appears at outpatient baseline - Continue: Sinemet 25-250 mg QID - Continue: Entacapone 200 mg TID #Paroxysmal Atrial Fibrillation w/ RVR #Chronic HFpEF - Continue: diltiazem 60 mg Q6H - Continue: metoprolol tartrate 37.5 mg Q6H - Continue: enoxaparin 110 mg BID (discuss anti-coagulation risks/benefits w/ family) - Continue: atorvastatin 10 mg QPM #Previous Pancytopenia (2/2 unclear etiology), resolving #Normocytic Anemia - OSH B12 and Folate WNL - OSH iron studies c/w AOCD - Smudge cells were indicated on CBC, peripheral smear reviewed (stable) - SPEP not resulted - CRP and LDH were elevated; Consider repeating CRP - If patient continues to fever MICU recommended: - Evaluation by Hematology; and possible non-contrast CT of Chest - May all be 2/2 to exacerbated unclear infection or chronic - Continue to trend #Type II Diabetes - Sensitive SSI Q4H - Hold: home glipizide 5 mg BID - Hold: home metformin 1,000 mg BID #HTN - Hold: home lisinopril 40 mg daily #Depression - Hold: duloxetine 30 mg TID #?Hx of Overactive Bladder - Consider removal of Morris Catheter - Hold: home mirabegron 25 mg Daily #Housekeeping DVT Prophylaxis: Therapeutic Lovenox Diet: Tube feeds + Attempting Dysphagia Soft Diet GI Prophylaxis: Restarted Pantoprazole 40 mg Daily (12/24) Disposition: pending course Code Status: Full Code Huey Carty DO Internal Medicine Resident, PGY-1 12/25/19 1:55 PM Associated attestation - Remi Tenorio MD - 12/25/2019 3:53 PM EDT Attestation: Attending Attestation Please see Dr. Carty's note for details of the patient history of presentation and data. I have examined the patient myself and personally reviewed all studies. I have discussed, reviewed and agree with the documented history, physical findings, assessment and plan of care with any additions and/or cor rections noted below. 64 yo M with h/o parkinson's disease who was admitted to the ICU with fever, leukopenia and toxic metabolic encephalopathy of unclear etiology who was empirically treated for bacterial/viral meningitisbut w/u has been thus far negative. Antibiotics and antivirals have been stopped, neurology has been consulted and no definitive etiology has been elucidated at this time, however pt has reassuringly improved and defervesced. Per family his mental status is close to his baseline. Ongoing issues include possible dysphagia with plan for modified barium swallow but also close observation for improvementafter intubation, ongoing monitoring for fever/infection off antivirals/antibiotics, ongoing titration of his sinemet as NMS was on differential on arrival, and PT/OT for disposition planning. Pt couldbe medically ready for discharge in next 1-2 days pending course, but he will need SNF. Appreciate care management input/support. In addition, I certify that I am a [facility] credentialed attending provider with admitting privileges andthat the patient meets or has met medical necessity to require an inpatient IPI level of care meeting a minimum of two midnights or is on the [facility] inpatient only procedure list (status C) due to: toxic metabolic encephalopathy Remi Tenorio MD pager [phone] 12/25/2019 3:49 PM Dairi, Obaida - 12/20/2019 6:12 PM EDT Images from the original note were not included. Inpatient Medicine - Admission Note Patient Name: Timbo Su Patient Age: 64 y.o. Admit date: 12/20/2019 Attending Physician: Kavon Celaya MD PCP: Griselda Stanley MD History of Present Illness: Mr. Su is a 64 yo male with a pmhx of Parkinson's Disease s/p DBS, DM-II, HTN, HLD, sensory neuropathy, previous suicide attempt with Sinemet (reported in Neurology telephone encounter from 08/23/19)who presents as a transfer from [facility] following 4 days of AMS, worsening tremor, fever, general lethargy, and malaise. The OSH diagnosed him with a suspected UTI, though cultures returned w/mixed growth. He received vancomycin and zosyn, though his cognition, fevers, tremors, ?myoclonos, and AMS worsened in the 24 [address] Stone, a neurologist at [facility], received the transfer call on 12/20/19. There had been difficulty in obtaining a adequate CT head (results below) or LP given the patient's persistent movement. Reportsfrom the OSH, shakes all four extremities and become stiff with each episode, they were brief and st ereotypical. He was transferred to [facility] primarily for further neurologic and ?infectious work-up. Per the family, specifically the , over the last 3 weeks the patient had worsening balance, dizziness, occasional hallucinations, and increased fatigue and lethargy. Moreover, 1 week ago the aforementioned symptoms worsened with an additional fall through wood paneling in his home (which is likelywhen he fractured his rib and two vertebrae (refer to CT a/p). Of note, he was never started on methylphenidate per the family. The patient also has notably attempted to commit suicide twice, since that time his has taken full control of his medications. At the OSH, prior to transfer, labs were significant for a WBC of 2.8, Hbg 9.6 w/ a normal range MCV, platelets 100, BUN 14, Cr 1.17, AL 80, AST 75, T bili 1.4 (d bili 0.69), and a lactate of 2.2. COVID was negative on 12/19. On arrival to [facility], the patient was febrile, tachycardic (160s), and obtunded. EKG was ordered though not helpful. CXR at the OSH was negative for acute cardiopulmonary process. Stat CBC, BMP, CK, VBG were ordered. IV metoprolol and magnesium administered. Neurology was consulted to the bedside and parkinsonian tremors and rigidity questionable for NMS 2/2 to sinemet withdrawal vs ORTHOPEDIC SURGEON infection vs serotonin syndrome were mentioned. Unlikely seizures, though patient did receive a dose of Keppra at the OSH. His Sinemet dose was held at the OSH today, though was given on the first two days of admission (12/17, 12/18). Critical Care was also consulted, and they accepted the patient, give the patient's neurologic status may require intubation for further testing (LP, MRI, etc.). Review of Systems Reviewed 10 systems; pertinent positives in HPI Past Medical and Surgical History: No past medical history on file. Past Surgical History: Procedure Laterality Date ??? CHOLECYSTECTOMY ??? HIP SURGERY as a child ??? PRO APPLY/REMOVE CRANIAL FIX DEV Bilateral 06/10/2017 PLACEMENT-STARFIX FIDUCIALS (WRVU 4) performed by Randall Sapp MD at [facility] ? ? PRO IMP STIM, CRANIAL, SUBQ, >1 ARRAY Bilateral 06/24/2017 PLACEMENT ADD'L CRANIAL NEUROSTIMULATOR (WRVU 9.93) performed by Randall Sapp MD at [facility] ??? PRO IMPLANT NEUROELECTRDE, ADDL N/A 06/17/2017 @IMPLANTATION OF ADD'L NEUROSTIMULATOR ELECTRODE (WRVU 7.91) performed by Randall Sapp MD at [facility] ??? PRO IMPLANT NEUROELECTRODE Bilateral 06/17/2017 @IMPLANTATION OF NEUROSTIMULATOR ELECTRODE-RUBY (WRVU 33.03) performed by Randall Sapp MD at [facility] Prior To Admission Medications: Medications reviewed in eDH. Allergies: Allergies Allergen Reactions ??? Comtan [Entacapone] Nausea Only Shaking, muscle weakness. Social History and Habits: Unable to assess given patient's mental status. Refer to [facility] for information from the family. Objective Last Set of Vitals and range of vitals over past 24 hours: Last value Range last 24 hrs Temperature Temp: (!) 39 ??C (102.2 ??F) Temp: [38.3 ??C (100.9 ??F)-39 ??C (102.2 ??F)] Heart Rate Heart Rate: (!) 154 Heart Rate: [131-160] Blood Pressure BP: 142/83 BP: (110-155)/(64-92) Respiratory Rate Resp: (!) 33 Resp: [26-33] SpO2 SpO2: 98 % SpO2: [93 %-98 %] Physical Exam: Constitutional: Obtunded, GCS of 9 HENT: crusted erythematous lesions on the upper and lower lip, hard to visualize oropharynx for tongue lacerations Cardiovascular: Tachycardic w/ regular rhythm, normal heart sounds and intact distal pulses. Pulmonary/Chest: symmetrical expansion Abdominal: NTND Neuro exam: MS: Obtunded, GCS of 9 CN: PEERLA Hearing intact to voice, incomprehensible sounds Motor: Cogwheel rigidity b/l UEs Sensation: unable to assess Reflexes: DTRs 0+ R, 0+ L Patellar Coordination: Resting tremor Gait: unable to assess Laboratory (Last 24 Hours): Recent Results (from the past 24 hour(s)) POCT Glucose Result Value Ref Range POC Glucose 139 65 - 199 mg/dL Basic Metabolic Panel (non-fasting) Result Value Ref Range Glucose Lvl 150 65 - 199 mg/dL BUN 12 10 - 20 mg/dL Creatinine 0.90 0.80 - 1.50 mg/dL Sodium 136 135 - 145 mmol/L Potassium 3.6 3.5 - 5.0 mmol/L Chloride 97 (L) 98 - 107 mmol/L CO2 24 22 - 31 mmol/L Anion Gap 15 5 - 15 mmol/L Calcium 8.5 8.5 - 10.5 mg/dL eGFR 90 >=60 mL/min/1.73 m?? eGFR 104 >=60 mL/min/1.73 m?? Magnesium Result Value Ref Range Magnesium 0.57 (L) 0.69 - 1.07 mmol/L Phosphorus Result Value Ref Range Phosphorus 3.1 2.5 - 4.5 mg/dL Hepatic Function Panel Result Value Ref Range Total Protein 6.3 6.1 - 8.0 gm/dL Albumin 3.3 3.2 - 5.2 gm/dL AST 76 (H) 0 - 39 unit/L ALT 71 (H) 0 - 55 unit/L Alk Phos 100 40 - 130 unit/L Total Bilirubin 1.3 0.2 - 1.3 mg/dL Bili, Direct 0.7 (H) 0.0 - 0.3 mg/dL Prothrombin Time Result Value Ref Range PT 14.7 (H) 9.4 - 12.5 sec INR 1.3 APTT Result Value Ref Range PTT 32 25 - 37 sec Hemogram Result Value Ref Range WBC 2.9 (L) 4.0 - 9.5 x10(3)/mcL RBC 3.39 (L) 4.58 - 5.54 x10(6)/mcL Hemoglobin 10.2 (L) 13.7 - 16.5 gm/dL Hematocrit 29.5 (L) 40.5 - 48.5 % MCV 87.0 82.9 - 93.1 fL MCH 30.1 27.5 - 32.1 pg MCHC 34.6 32.0 - 35.7 gm/dL Platelets 108 (L) 145 - 357 x10(3)/mcL RDWSD 43.6 36.0 - 45.0 fL RDWCV 13.6 11.4 - 13.8 % MPV 10.9 7.6 - 12.9 fL nRBC % Auto 0.0 % nRBC Abs Auto 0.000 0.000 - 0.000 x10(3)/mcL Differential, Automated Result Value Ref Range Neutrophils % 51.1 % Neutr Abs (ANC) 1.50 (L) 1.70 - 6.10 x10(3)/mcL Lymphocytes % 33.3 % Lymphocytes Abs 1.0 0.9 - 3.2 x10(3)/mcL Monocytes % 13.9 % Monocyte Abs 0.4 0.3 - 0.9 x10(3)/mcL Eosinophils % 0.7 % Eosinophils Abs 0.0 0.0 - 0.4 x10(3)/mcL Basophils % 0.3 % Basophils Abs 0.0 0.0 - 0.1 x10(3)/mcL Immature Gran % 0.70 % Anneliese Gran Abs 0.02 0.00 - 0.04 x10(3)/mcL CK Result Value Ref Range CK, Total 447 (H) 0 - 200 unit/L Scan, Peripheral Blood Result Value Ref Range Plat Estimate Decreased RBC Morphology Abnormal Polychromasia Present >5/HPF Blood Gas Venous Result Value Ref Range pH Manny 7.43 (H) 7.32 - 7.42 pCO2 Mnany 40 (L) 41 - 51 mmHg pO2 Manny 21 (L) 25 - 40 mmHg HCO3 Manny 25.8 mmol/L BE Manny 1.5 mmol/L Hgb Blood Gas 11.0 (L) 13.7 - 16.5 gm/dL O2HB Manny 34.6 % COHB Manny 1.0 % METHB Manny 0.3 <=1.5 % Na Whole Blood 136 135 - 145 mmol/L K Whole Blood 3.8 3.5 - 5.0 mmol/L ICa Whole Blood 1.09 (L) 1.15 - 1.33 mmol/L CL Whole Blood 102 98 - 107 mmol/L Gluc Whole Bld 151 65 - 199 mg/dL Lactate WB 1.5 0.5 - 2.2 mmol/L BGas Source Venous POCT Glucose Result Value Ref Range POC Glucose 165 65 - 199 mg/dL Studies: CT Head at OSH (12/20/19) Exam was limited because of motion and artifact CT A/P (12/18/19) Non-displaced complete fracture of the R 12th rib at the costotransverse processes Non specific fracture of hte L1 and L2 R as well as L3 Left transverse processes Refer to OSH records for further details CXR at OSH (12/18/19) No acute cardiopulmonary changes seen. Assessment/Plan: Mr. Su is a 64 yo male with a pmhx of Parkinson's Disease s/p DBS, DM-II, HTN, HLD, sensory neuropathy, previous suicide attempt with Sinemet (reported in Neurology telephone encounter from 08/23/19)who presents as a transfer from [facility] following 4 days of AMS, worsening tremor, fever, general lethargy, and malaise. They had diagnosed him with a suspected UTI, though cultures returned w/ mixed growth. He received vancomycin and zosyn, though his cognition, fevers, tremors, ?myoclonos, and AMS worsened in the 24 hours prior to admission. On arrival to [facility], the patient was febrile, tachycardic (160s), and obtunded. EKG was ordered though not helpful. CXR at the OSH was negative for acute cardiopulmonary process. COVID PCR was negative.Stat labs ordered on arrival to are facility were significant for a WBC 2.9, Hbg 10.9; Mag 0.57, CK 447, D bili 0.7, AST 76, ALT 71, and a VBG pH 7.43/pCO2 40/HCO3 25.8 w/ a normal lactate. Refer to history obtained from and son in the HPI. Otherwise, IV metoprolol and magnesium were administered. Neurology was consulted to the bedside andparkinsonian tremors and rigidity questionable for NMS 2/2 sinemet withdrawal vs ORTHOPEDIC SURGEON infection vs serotonin syndrome were mentioned. Unlikely seizures, though patient did receive a dose of Keppra at the OSH. His Sinemet dose was held at the OSH today, though was given on the first two days of admission (12/17, 12/18). The patient is not hyperreflexic and pupils are not dilated, so this makes serotonin syndrome less likely. Notably, the patient's admits the patient has had a previous suicide attemptwith Sinemet (reported in Neurology telephone encounter from 08/23/19). Given the aforementioned, Critical Care was also consulted and has accepted the patient as patient's neurologic status may requireintubation for further testing (LP, MRI, etc.). #?ORTHOPEDIC SURGEON infection vs NMS 2/2 to Sinemet Withdrawal vs Serotonin Syndrome - ICU has taken over care; please refer to transfer note for further plan - Will need intubation for further neurologic work-up and imaging (LP, MRI, etc.) - EEG suggested, though unlikely seizures - Neurology consulted; recommend empiric treatment of meningitis for now - Notable labs in assessement Huey Carty, DO Internal Medicine PGY-1 12/20/2019 Associated attestation - Remi Tenorio MD - 12/20/2019 7:54 PM EDT Attestation: Attending Attestation Please see Dr. Carty's note for details of the patient history of presentation and data. I have examined the patient myself and personally reviewed all studies. I have discussed, reviewed and agree with the documented history, physical findings, assessment and plan of care with any additions and/or cor rections noted below. 64 yo M with h/o Parkinson's disease, DMII, HTN and HLD with recent worsening PD symptoms characterized by tremor, stiffness and hallucinations who was admitted to [facility] with fever and AMS. W/u at OSH was negative for SARS-CoV-2, with BCx pending, and pt was started on zosyn for presumed UTI but as his mental status deteriorated and he continued to have fevers pt was given empiric Vanc andtransferred to [facility] for LP and neuro evaluation with concern for new onset seizures (pt received ativan and keppra prior to transfer). On exam the patient is altered, minimally responsive, tachycardic with apparent Afib (which he has no history of) stiff, absent reflexes and with intermittent myoclonus. I am most concerned for an infectious process however NMS syndrome is also on the differential, with less likely serotonin syndrome (difficult to know if hyper- reflexia would be masked in a PD patient without knowing his baseline exam better). Critical care was consulted on arrival as patient was critically ill with Afib with RVR, severely depressed mental status, fever, and need for an LP requiring sedation. Neurology was consulted as well and recommended empiric treatment for meningitis to include HSV coverage while w/u proceeded. IS PATIENT CRITICALLY ILL ? Is there a high potential of sudden, clinically significant, or life threatening deterioration? Yes Is there a need for direct personal assessment and management to treat/prevent multiple vital organ failure/deterioration? Yes PATIENT IS CRITICALLY ILL WITH THESE DIAGNOSES BEING MANAGED BY Hospital Medicine TEAM: #Afib with RVR with high risk for decompensation #Toxic Metabolic Encephalopathy with agitation requiring sedation for diagnostic studies #Septic physiology with tachycardia, fever, tachypnea and leukopenia requiring close monitoring #Possible neuroleptic malignant syndrome I personally performed 80 minutes ([id number]) of aggregate critical care time, exclusive of procedures and teaching. This includes time spent during direct patient evaluation and reassessment, interpretation of diagnostic studies, directing life and/or organ supporting interventions, and documentation. Remi Tenorio MD pager [phone] 12/20/2019 7:39 PM documented in this encounter Procedure Notes Harrison Dodd MD - 12/21/2019 2:28 PM EDTProcedure(s): LUMBAR PUNCTURE Pre-Procedure Diagnose(s): Acute delirium Post-Procedure Diagnose(s): Acute delirium Lumbar Puncture Procedure Procedure: A time-out was conducted just before the start of the procedure to verify the correct patient and procedure, procedure location, and all relevant critical information. In the left lateral decubitus position, a sterile prep and drape was performed. Chlorhexidine was used, it was allowed to completely dry. Full barrier precautions including gown, mask, gloves. 1% lidocaine 1 ml at the L23 interspace. 22 gauge Quinke, one attempt. Initially slightly cloudy CSFreturned, this quickly cleared to clear. Samples were drawn in 4 sterile tubes. Laboratory studies per the primary team. The patient was turned supine. The procedure was well tolerated, no complications. Jenny Arora - 12/20/2019 11:50 PM EDTAssociated Order(s): LUMBAR PUNCTURE Procedure(s): LUMBAR PUNCTURE Pre-Procedure Diagnose(s): Altered mental status, unspecified altered mental status type Post-Procedure Diagnose(s): Altered mental status, unspecified altered mental status type Lumbar Puncture Procedure Note Primary Indications for Procedure: Rule out meningitis. Procedure Diagnosis: altered mental status, fever Location of Procedure: Critical Care. Risks and Benefits: The risks and benefits of this procedure were reviewed and informed consent was obtained from family via phone. Patient was intubated prior to procedure to facilitate LP. Time Out: Prior to the start of the procedure, the patient's identity, intended procedure, site/side, correct patient positioning and presence of the site chio was confirmed as applicable. The medical history and chart were reviewed to rule out potential contraindications to the planned procedure. Patient Position for Procedure: Right lateral decubitus Procedure Technique: Sterile draping was applied. Skin was prepped with chlorhexidine. 3 ml of 1% Lidocaine was injected for local anesthesia. Procedure Details: The insertion site for this procedure was L3/4 and L4/5. There several attempts by 3 providers without success. The needle used was a 3.5 inch 20 gauge Quincke. Findings: Unable to obtain CSF. Arthritis was not a limiting factor in gaining access to CSF, ratherthere was no return of CSF when it seemed the there should have been at times. Specimens were sent for the following test(s): n/a Post Procedure: Patient placed flat and advised to lie flat for 45-60 minutes. No immediate complications were observed.. Procedure Comments: Dr Mitch Celaya was present for the duration of the procedure and URIAH Davila with Nerology attempted and assisted as well Associated attestation - Kavon Celaya MD - 12/24/2019 6:43 PM EDT I was the attending physician supervising the resident in the above care and I was present with the resident for the entire procedure. Sergei Krueger MD - 12/20/2019 8:24 PM EDT .Intubation Procedure Note Intubation time 2000 Reason for Intubation: ?? Airway protection and need for procedures Location of Procedure: ICU South. Time Out: Prior to the start of the procedure, the patient's identity, intended procedure, site/side, correct patient positioning and presence of the site chio was confirmed as applicable. The medical history and chart were reviewed to rule out potential contraindications to the planned procedure. Intubation Assessment: ?? Dentition natural Additional Intubation Assessment: Preoxygenation was administered. RSI performed Laryngoscope Blade and Size: D blade The endotracheal tube size was 8 mm. The tube was cuffed. Common Adjuvant Equipment: A stylet was used. Additional Adjuvant Equipment: Type scope:Videoscope Intubation Method: direct laryngoscopy IV Medications: ?? 100 mg propofol ?? 100 mg rocuronium ?? 80 mg bernie Insertion Attempts: 1 Visualization of Vocal Chords: A Grade I view of the vocal cords was observed. Confirmation of Tube Placement: ?? Chest X-ray ordered ?? end tidal CO2 ?? bilateral breath sounds Status Post Intubation: ?? The patient was hemodynamically stable. Tube secured (at lip or nares): 24cm Other post intubation status comments: Atraumatic Sergei Krueger MD 12/20/2019 documented in this encounter Miscellaneous Notes Plan of Care - Olamide Butts, OT - 12/30/2019 9:03 AM EDT Occupational Therapy Treatment Note Treatment Number OT: 3 Patient profile:??Timbo Su??is a 64 y.o.?male??admitted on 12/20/2019??by Dr. Magali Jo MD??transferred from [facility] after arriving to ED with fever and altered mental status.?Stayed @ [facility] x 3 days with worsening hallucinations and encephalopathy. W/u at OSH was negative for SARS-CoV-2, with BCx pending, and pt was started on zosyn for presumed UTI but as his mental status deteriorated, transferred to [facility] for neuro exam as he has hx of advancedParkinsons with deep brain stimulator. ??Admitted to ICU, required intubation, ??lumbar puncture attempts @ bedside 12/19 &??performed 12/20 under fluroscopy due to concern for infection/meningitis, on antibiotics. ??On IV metoprolol and diltiazem for A-fibrillation. DBS interrogated: within acceptable ranges, adjusted by Neurology. MRI brain planned 12/21(still pending). ??Extubated 12/22 to 4 L O2 nasal cannula. Pt was transferred to medicine. Social History: Patient lives with his spouse Arlyn, who works at a bank and isn't available during the day. Home Setup: 3 steps to enter w/ a railing, 1 level, has a walk-in shower w/ a seat and grab bars, nothing around his toilet DME: shower seat, grab bars, walker Baseline ADL/Mobility: Pt ambulates w/ a walker at baseline (reports he hasn't fallen in a while but when he does it is usually from walking backwards, per chart, he fell ~1 week earlier through woodpaneling). He reports he dresses himself ( occasionally helps w/ getting socks/shoes on). He manages his ADL's independently. He manages grooming standing at the sink. He helps w/ cooking, cleaning, laundry, etc. He drives only short distances. 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 Precautions/Special Considerations: fall, Parkinson's Disease w/ deep brain stimulator Interval History: transferred to hospital medicine S: Will my be able to visit me? We been 52 years and this is the longest we've been without seeing each other. O: Patient seen for therapeutic activities and demonstrated the following: ?? Self-care: ?? LB dressing: not observed today, can reach feet; min A for pant hike and initiation ?? UB dressing: carmen marcus with setup and cues ?? Toileting: CGA with cues for hand placement for toilet transfer, able to complete BM hygiene (after continent episode on toilet) with CGA for standing balance with FWW and assist only for completionof hygiene (but he had done most of it) ?? Bathing: min A; able to complete seated sponge bath w/ bath wipes and cues for progression of task, CGA for standing balance w/FWW ?? Feeding: able to drink from cup w/ straw w/ one UE and place back on table, increased effort noted when he gets close to the mouth with UE tremor ?? Grooming: pt stood at the sink and washed his hands, washed his face, and brushed his teeth, required extra time with fine motor tasks but able to manage; with fatigue noted slight trunk flexion butstood for ~10 mins ?? Functional Mobility: ?? Supine to sit: supervision w/ bed rails ?? Sit to stand: CGA with FWW, cue for hand placement ?? Pt ambulated to/from the bathroom with CGA and FWW ?? Stand to sit: CGA, assist for arm placement ?? Cognition: ?? Behavior / Mood: alert and cooperative ?? Alert and oriented to: person, place, time and situation ?? Follows commands: 1 step and 100% of the time, delayed responses ?? Attention: slightly delayed/decreased , improved from prior sessions, asking appropriate questions about rehab ?? Safety awareness: chair alarm in place, agrees to call for help ?? Able to use TV remote, remembers this therapist from the other day ?? Continues w/ flattened affect ?? Vision: glasses on during session ?? Vitals: Sp20: 98% on RA, HR: 60-70's ?? Therex: had pt complete UE, LE and trunk exercises seated with focus on big movements sitting EOB before standing Pain: pt reported mild abdominal pain, reporting constipation (but did have some production on the toilet) Education: Pt/family/caregiver education ongoing regarding: Role of occupational therapy/rehabilitation, Transfers, ADL, Exercise, Positioning, Safety, Precautions/Protocol, Functional Mobility, Balance, Recommendations and Discharge planning. Staff Communication: Patient status, treatment, and mobility recommendations discussed with nursing/other staff. ASSESSMENT: Pt was seen for ongoing progression of activity. Pt is progressing well, now managing his ADL's with contact guard to min A. He still benefits from cues for hand placement and positioning and reports a fear of falling. Pt will continue to benefit from a short rehab stay to improve his balance, activity tolerance, independence, and confidence. Still strongly recommend eventual outpatient [facility] program. Pt remains very motivated to preserve his independence and maximize his functional capacity. Pt benefits from assist for balance and cues for bigger movements. Pt will benefit from ongoing therapeutic interventions to achieve pt's and therapy goals. Anticipated Discharge Disposition: inpatient acute rehabilitation Equipment Recommendations: TBD Daily schedule / Staff Recommendations: ?? transfer to recliner chair as appropriate with min a x 2 and FWW, ambulate as tolerated with min A x 2 and FWW, benefits from cues for taking big steps' and may need assist to steer the walker ?? Encourage participation in ADL's by providing set up A on tray table and physical assist only as needed Goals: To be achieved within 1 week, by 01/01/20: 2. Patient will complete grooming tasks standing with distant supervision. 3. Patient will be modified independent A for toileting, including transfer, hygiene and clothing management. 4. Patient will be modified independent for LB dressing. 5. Patient will be modified independent for seated sponge bath/shower w/ setup. 6. Patient will consistently be oriented x 4. (MET) Therapy Frequency: 2-4 times/wk Total Evaluation Minutes, Occupational Therapy: 55(self-care x 4) Pager: [phone] OLAMIDE BUTTS OT Occupational Therapy Rehabilitation Department Plan of Care - Eh Ruff RN - 12/30/2019 12:53 AM EDT Problem: Patient Care Overview Goal: Plan of Care Review Outcome: Ongoing (Interventions Implemented as Appropriate) 12/26/19 1709 12/29/192019 Coping/Psychosocial Plan Of Care Reviewed With -- patient Plan of Care Review Progress progress towards functional goals is fair -- OUTCOME EVALUATION NOTE: OUTCOME SUMMARY: He is alert and oriented. Able to walk with walker, 2 assist. Telemetry order and discontinued. MD aware. It was NSR before D/C. He denies chest pain or SOB. V/S stable. He is incontinence of urine. Frequent incontinence care and position changed done. PLAN MOVING FORWARD: Waiting for rehab PT/OT INDIVIDUALIZED FALL PREVENTION INTERVENTIONS: Patient-specific fall risk factors per assessment: [current deficits]: Medications, Parkinson's, weakness. Assistance [level of assistance required for transfers and ambulation]: 2 assist with walker. Supervision [direct monitoring required during toileting and ADLs]: Hands on. Surveillance [continuous indirect monitoring]: Hourly rounding, call white in reach, room near the nursing station, bed alarm on. Patient-specific fall prevention interventions for sensory deficits provided, if applicable: [X] N/A CPG GOAL OUTCOME EVALUATION: Ongoing Goal: Fall Prevention-Safe Patient Handling Outcome: Ongoing (Interventions Implemented as Appropriate) 12/29/19 0948 12/29/19201912/29/19 2248 Restraint Interventions Safety Promotion/Fall Prevention -- activity supervised;fall prevention program maintained;nonskid shoes/slippers when out of bed;safety round/check completed -- Activity Activity Type -- ambulated in room -- Activity Assistance Provided -- assistance, 2 people -- Assistive Device Utilized -- front-wheel walker -- Positioning Body Position -- -- supine Daily Care Interventions Self-Care Promotion independence encouraged -- -- Polanco Fall Risk History of Falling -- -- 0 Secondary Diagnosis -- -- 15 Ambulatory Aids -- -- 15 Intravenous Therapy/Heparin/Saline Lock -- -- 20 Gait/Transferring -- -- 10 Mental Status -- -- 15 Score -- -- 75 OTHER Polanco Fall Risk -- -- High Goal: Infection Control Outcome: Ongoing (Interventions Implemented as Appropriate) 12/29/192019 Safety Interventions Isolation Precautions standard precautions maintained Infection Prevention visitors restricted/screened;single patient room provided;rest/sleep promoted;personal protective equipment utilized;environmental surveillance performed Coping Strategies Supportive Measures active listening utilized;verbalization of feelings encouraged Goal: Discharge Needs Assessment Outcome: Ongoing (Interventions Implemented as Appropriate) 12/22/19 17412/27/19 2244 Discharge Needs Assessment Concerns To Be Addressed cognitive/perceptual concerns;home safety concerns -- Readmission Within The Last 30 Days unable to assess -- Discharge Disposition -- still a patient Living Environment Transportation Available car -- Goal: Interdisciplinary Rounds/Family Conf Outcome: Ongoing (Interventions Implemented as Appropriate) 12/26/19 1554 Interdisciplinary Rounds/Family Conf Participants nursing;patient Problem: Skin Integrity Impairment, Risk/Actual (Adult) Goal: Identify Related Risk Factors and Signs and Symptoms Related risk factors and signs and symptoms are identified upon initiation of Human Response Clinical Practice Guideline (CPG) Outcome: Ongoing (Interventions Implemented as Appropriate) 12/21/19 1955 Skin Integrity Impairment, Risk/Actual Skin Integrity Impairment, Risk/Actual: Related Risk Factors cognitive impairment;edema;fluid/nutrition status;immobility Goal: Skin Integrity/Wound Healing Patient will demonstrate the desired outcomes by discharge/transition of care. Outcome: Ongoing (Interventions Implemented as Appropriate) 12/29/19 0424 Skin Integrity Impairment, Risk/Actual (Adult) Skin Integrity/Wound Healing making progress toward outcome Plan of Care - Tamara Sahu RN - 12/29/2019 4:48 PM EDT Problem: Patient Care Overview Goal: Plan of Care Review Outcome: Ongoing (Interventions Implemented as Appropriate) 12/26/19 1709 12/29/19 0948 Coping/Psychosocial Plan Of Care Reviewed With -- patient Plan of Care Review Progress progress towards functional goals is fair -- OUTCOME EVALUATION NOTE: OUTCOME SUMMARY: VSS. Afebrile. Pt denies chest pain. A&Ox4, however often has difficulty expressing needs. He reports SOB and nausea, PRN IV zofran given w/ good relief. Pt rates 9-10/10 pain in back and hips, PRNtylenol and lidocaine patch applied. Remained on tele, in controlled a fib, converted back to NSR at~1300. Continues to be frequently incontinent of urine, intermittently able to use urinal. Pt workedw/ PT, refer to note. Up in chair throughout the day. BG covered per OCT. PLAN MOVING FORWARD: Monitor vs and labs Awaiting rehab placement INDIVIDUALIZED FALL PREVENTION INTERVENTIONS: Patient-specific fall risk factors per assessment: [current deficits]: High fall risk r/t generalized weakness Assistance [level of assistance required for transfers and ambulation]: Ax1 w/ walker Supervision [direct monitoring required during toileting and ADLs]: Hands on Surveillance [continuous indirect monitoring]: Hourly rounding, call white within reach, masimo, bed alarm, tele Patient-specific fall prevention interventions for sensory deficits provided, if applicable: N/A CPG GOAL OUTCOME EVALUATION: Goal: Individualization & Mutuality Outcome: Ongoing (Interventions Implemented as Appropriate) 12/26/19 0253 Mutuality/Individual Preferences What Anxieties, Fears or Concerns Do You Have About Your Health or Care? none at this time What Questions Do You Have About Your Health or Care? none at this time What Information Would Help Us Give You More Personalized Care? none at this time Goal: Fall Prevention-Safe Patient Handling Outcome: Ongoing (Interventions Implemented as Appropriate) 12/29/19 0344 12/29/19 0948 Restraint Interventions Safety Promotion/Fall Prevention -- activity supervised;fall prevention program maintained;nonskid shoes/slippers when out of bed;safety round/check completed Activity Activity Type -- activity adjusted per tolerance Activity Assistance Provided -- assistance, 1 person Assistive Device Utilized -- front-wheel walker Positioning Body Position side-lying, right -- Daily Care Interventions Self-Care Promotion -- independence encouraged Polanco Fall Risk History of Falling -- 0 Secondary Diagnosis -- 15 Ambulatory Aids -- 0 Intravenous Therapy/Heparin/Saline Lock -- 20 Gait/Transferring -- 10 Mental Status -- 15 Score -- 60 OTHER Polanco Fall Risk -- High Goal: Infection Control Outcome: Ongoing (Interventions Implemented as Appropriate) 12/29/19 0948 Safety Interventions Isolation Precautions standard precautions maintained Infection Prevention personal protective equipment utilized;rest/sleep promoted;single patient room provided Coping Strategies Supportive Measures active listening utilized;self-care encouraged;verbalization of feelings encouraged Goal: Discharge Needs Assessment Outcome: Ongoing (Interventions Implemented as Appropriate) 12/22/19 1741 12/27/19 2244 Discharge Needs Assessment Concerns To Be Addressed cognitive/perceptual concerns;home safety concerns -- Readmission Within The Last 30 Days unable to assess -- Discharge Disposition -- still a patient Living Environment Transportation Available car -- Problem: Skin Integrity Impairment, Risk/Actual (Adult) Goal: Identify Related Risk Factors and Signs and Symptoms Related risk factors and signs and symptoms are identified upon initiation of Human Response Clinical Practice Guideline (CPG) Outcome: Ongoing (Interventions Implemented as Appropriate) 12/21/19 1955 Skin Integrity Impairment, Risk/Actual Skin Integrity Impairment, Risk/Actual: Related Risk Factors cognitive impairment;edema;fluid/nutrition status;immobility Signs and Symptoms (Skin Integrity Impairment) edema Goal: Skin Integrity/Wound Healing Patient will demonstrate the desired outcomes by discharge/transition of care. Outcome: Ongoing (Interventions Implemented as Appropriate) 12/29/19 0424 Skin Integrity Impairment, Risk/Actual (Adult) Skin Integrity/Wound Healing making progress toward outcome Plan of Care - Danya Muller PTA - 12/29/2019 2:52 PM EDT Physical Therapy Note Treatment Number PT: 3 Patient profile: Timbo Su??is a 64 y.o.?male??admitted on 12/20/2019??by Dr. Magali Jo MD??transferred from [facility] after arriving to ED with fever and altered mental status.?Stayed @ [facility] x 3 days with worsening hallucinations and encephalopathy. W/u at OSH was negative for SARS-CoV-2, with BCx pending, and pt was started on zosyn for presumed UTI but as his mental status deteriorated, transferred to [facility] for neuro exam as he has hx of advancedParkinsons with deep brain stimulator. ??Admitted to ICU, required intubation, ??lumbar puncture attempts @ bedside 12/19 &??performed 12/20 under fluroscopy due to concern for infection/meningitis, on antibiotics. ??On IV metoprolol and diltiazem for A-fibrillation. DBS interrogated: within acceptable ranges, adjusted by Neurology. MRI brain planned 12/21(still pending). ??Extubated 12/22 to 4 L O2 nasal cannula. Multiple etiologies under consideration:?undetected viral meningitis or??other viral encephalitides??or drug effect. ?- HSV negative ?- VZV pending ?- Crypto negative ?- Fungal culture negative to date ?? Interval History: -Diet advanced to CC4 after passing MBS - Patient converted to A-fib at 0055; heart rates Social History: Lives in [place], [place] with in a one level home with 3 steps to enter with a railing. ?? working @ [employer]. Bathroom Set-up:??walk-in shower with seat and grab bars. Baseline Mobility:??Amb w/ FWW?? Equipment at home:??FWW, seat in shower & grab bars ?? Precautions/Special Considerations:??Parkinsons with deep brain stimulator Diet:??dysphagia soft diet ?? Mobility and Positioning Recommendations: ?? Pt. to utilize??walker/gait belt??and min/cga X 1??for ambulation and transfers??with nursing. ?? Please encourage up to chair for meal times as able. ?? Pt encouraged to ambulate frequently with staff, getting into the bathroom for toileting and walking out in the malave >/= 3 times daily as able. ? Subjective: I am sore from yesterday in my hips, but I want to move. ?? Objective: Patient seen for physical therapy and demonstrated the following: ?? Pain: R hip pain 03/21 ?? Vital Signs: NSR 70's, other vitals stable Bed Mobility: HOB raised with use of bed railing Supine to Sit: close supervision Sit to Supine: up in chair Transfers: FWW in place/gait belt Sit to Stand: min assist X 1, Verbal cues Stand to Sit: CGA Gait: Distance: 70 feet Device used: rolling walker/gait belt Level of assist: Min/CGA, second person but not needed Gait mechanics: Verbal cues to increase step length. Decrease step length with turning Balance: Sitting Static: WNL Sitting Dynamic: Good Standing Static: Fair Standing Dynamic / Gait: Fair- Education: Pt ed: re fall risk, need for assist and rehab expectation. Pt left in bedside recliner chair, with all needs met and with chair alarm active, heat applied to Rhip following visit. ?? Assessment: [facility] Improved overall mobility. Patient with increase hip pain today, so wanted to limited mobility distance. Patient has decreased step length when turning putting him at risk for fall. Remains highlymotivated to increase overall mobility. Will benefit from rehab post hospitalization. Pt will benefit from ongoing therapeutic interventions to achieve therapy goals. ?? Discharge Recommendations: Based on the current findings, Anticipated Discharge Disposition: inpatient rehabilitation facility,swing bed when medically ready for hospital discharge. ?? Consult Recommendations: No other consults recommended at this time. ?? Equipment needs: none ? Physical Therapy Goals: To be achieved by??01-08-20: Remains ongoing ?? 1. Pt demonstrate knowledge of safety precautions??by??appropriately request assistance to mobilize. 2. Pt. to demonstrate understanding of appropriate??bed/chair??exercises to help strength to performon his own. 3. Pt. to perform bed mobility??independently. 4. Pt. to perform??sit >< stand??transfers independently??using a front wheeled walker. ?? 5. Pt. to ambulate??50??feet independently??using a a front wheeled walker. 6. Pt. to ambulate up/down??3??step/stairs using ??one rail?independently??to enter home. 7. Pt will tolerate progression towards upright with stable vital signs. Plan: Therapy Frequency: 2-4 times/wk for as outlined in initial evaluation. Patient agrees with plan as stated. Total Evaluation Minutes, Physical Therapy: 24(TE-F 2 Time in/out 2:00-2:24) DANYA MULLER PTA Pager: [phone] Physical Therapy Inpatient Rehabilitation Department Plan of Care - Rosa Moody RN - 12/29/2019 4:28 AM EDT Problem: Patient Care Overview Goal: Individualization & Mutuality Outcome: Ongoing (Interventions Implemented as Appropriate) OUTCOME EVALUATION NOTE: OUTCOME SUMMARY: Marcell very restless, rigid overnight. Constantly pulling off telemetry pads/wires, gown, socks, Masimo monitor. Verbalizes general feelings of discomfort. Heating pad placed per patient request to good effect Incontinent of urine very frequently, absorbant pads changed and skin hygiene provided. Sacral mepilex in place. On tele, flipped into Afib at 0055 HR 90s-120s, unable to convert to NSR at this time. PLAN MOVING FORWARD: ?? Q2 turns, sacral mepilex. Scheduled voids, incontinence care PRN. On tele, monitor for Afib. PT/OT following, DC to rehab this week ?? INDIVIDUALIZED FALL PREVENTION INTERVENTIONS: ?? Patient-specific fall risk factors per assessment: [current deficits]: Medications, cognitive status, weakness ?? Assistance [level of assistance required for transfers and ambulation]: 1 assist with walker ?? Supervision [direct monitoring required during toileting and ADLs]: Dependent ?? Surveillance [continuous indirect monitoring]: Masimo, call light in reach, bed alarm ?? Patient-specific fall prevention interventions for sensory deficits provided, if applicable: NA ? CPG GOAL OUTCOME EVALUATION: Problem: Skin Integrity Impairment, Risk/Actual (Adult) Goal: Skin Integrity/Wound Healing Patient will demonstrate the desired outcomes by discharge/transition of care. Outcome: Ongoing (Interventions Implemented as Appropriate) 12/29/19 0424 Skin Integrity Impairment, Risk/Actual (Adult) Skin Integrity/Wound Healing making progress toward outcome Plan of Care - Mc Corley RN - 12/28/2019 2:13 PM EDT Problem: Patient Care Overview Goal: Plan of Care Review Outcome: Ongoing (Interventions Implemented as Appropriate) 12/26/19 1709 12/28/19 0957 Coping/Psychosocial Plan Of Care Reviewed With -- patient Plan of Care Review Progress progress towards functional goals is fair -- OUTCOME EVALUATION NOTE: OUTCOME SUMMARY: Patient had modified barium swallow study done this afternoon, carb controlled diet ordered. Pt works with OT/PT and ambulates x1 loop with front wheeled walker and 1-2x assist. Patient alert to self and time. Able to take medications whole with applesauce. Adequate urinary output, incontinent at times. updated on plan of care and patient's condition. Patient up to chair at this time and appearscomfortable. Patient is normal sinus rhythm on telemetry. Denies chest pain and shortness of breath.94% SpO2 on room air. Continuing to monitor. Patient Vitals for the past 8 hrs: BP Temp Temp src Resp SpO2 12/28/19 1202 122/67 36.7 ??C (98.1 ??F) Oral 16 94 % 12/28/19 0803 125/90 37.6 ??C (99.7 ??F) Oral 18 97 % Tele note: S- Denies chest pain, shortness of breath, nausea, dizziness, headache. O- Vital signs stable, see tele strips. A- Patient tolerating rate and rhythm. P- Continue telemetry monitoring per MD order. PLAN MOVING FORWARD: Discharge planning Encourage activity Blood sugar control INDIVIDUALIZED FALL PREVENTION INTERVENTIONS: Patient-specific fall risk factors per assessment: [current deficits]: Unfamiliar environment, tethering devices Assistance [level of assistance required for transfers and ambulation]: x1 assist with walker Supervision [direct monitoring required during toileting and ADLs]: Arms reach Surveillance [continuous indirect monitoring]: Purposeful rounding, call white within reach, bed alarm, telemetry, Masimo Patient-specific fall prevention interventions for sensory deficits provided, if applicable: Yes, lighting adjusted, nonskid socks worn while OOB CPG GOAL OUTCOME EVALUATION: Ongoing Plan of Care - Jessie Francisco, ACROBATIC DANCER - 12/28/2019 1:55 PM EDT Speech Therapy Modified Barium Swallow Evaluation Patient Profile: Timbo Su is a 64 y.o. male admitted on 12/20/2019 for worsening hallucinations, encephalopathy, worsening tremor, and fever with course c/b atrial fibrillation with RVR. PMH significant for advanced Parkinson's disease s/p DBS, HTN, DM and hyperlipidemia. ACROBATIC DANCER consulted for bedside swallow assessment. Upon bedside swallow exam, pt reports increasing dysphagia for dry particulate solids and pills. Given primary diagnosis and lack of ACROBATIC DANCER intervention in past, proposed MBS to assess for pharyngeal swallow function and baseline swallow. Subjective: Pt reports feeling he is at his baseline for swallow at this time. Objective: Pt seen for evaluation today. Radiologist was present for entire study. Pain: Pt. denies pain at this time. Current Diet: Dysphagia Soft Diet Feeding / Oral Care Status: Pt is independent Cognitive-Linguistic Status: alert, oriented to person, place, and time Positioning: Sitting in Haustead chair at approximately 85 degrees hip flexion. Bolus Presentation(s): (all mixed with Barium) ?? Thin liquid via spoon, via cup, via straw, sequential sips ?? Puree ?? Dysphagia soft ?? Regular solid Oral Preparatory Phase Oral phase is characterized by prolonged mastication that is lacking true rotary motion for more complex solids. Transit is slowed, particularly for soft solids. Poor oral control for liquids with premature spillage over base of tongue. Pharyngeal Phase: Pharyngeal phase is characterized by delayed pharyngeal swallow initiation, to the level of the pyriforms with liquids. Once initiated, pharyngeal swallow appears adequate for consistencies trialed. Esophageal Phase: Normal relaxation of upper esophageal sphincter Aspiration / Penetration Scale Score (Mildred Almodovar et al. Dysphagia, 1995) 1 = no material enters the airway 2 = material enters the airway, does not touch the vocal cords, and is completely ejected 3 = material enters the airway, does not touch the vocal cords, but is not ejected 4 = material enters the airway, contacts the vocal cords, but is ejected 5 = material enters the airway, contacts the vocal cords, but is not ejected 6 = material enters the airway, passes below the vocal cords, and is ejected 7 = material passes below the vocal cords, is not ejected, but there is effort made to expel material 8 = material passes below the vocal cords, and there is no attempt to eject it Education: Patient has been educated on results and recommendations, and verbalized understanding. Patient status, treatment and swallow recommendations were communicated to primary team. Assessment: Pt presents with mild oral dysphagia characterized by poor oral transit, reduced efficiency in mastication, and poor bolus control resulting in trace oral residue, delayed pharyngeal swallow initiation. He is appropriate to upgrade to baseline diet consistency (regular solids, thin liquids). Given emerging oral dysphagia and hypophonia, would recommend assessment for outpatient intervention with LSVT to maximize function. Diagnosis: mild oral dysphagia, hypophonia Recommendations: Diet: Regular solids, Thin liquids PO medications: whole in bite of pudding or applesauce Aspiration precautions: Upright position during meals and for at least 30 mins following Small sips and bites while eating Alternate liquids and solids Speech Therapy Goals: (To be met by discharge) Pt will tolerate least restrictive diet without evidence of dysphagia / aspiration. Pt / caregiver will be independent with aspiration precautions, diet modifications, and safe swallowing strategies. Plan: Therapy Frequency: 1-3 more visits Pt./family are in agreement with treatment plan. Total Evaluation Minutes, Speech Language Pathology: 60 Thank you for this consult with this patient. Please feel free to page me with any questions or concerns. Jessie Francisco MS, [facility]ANCER Inpatient Speech Pathologist Pager #[phone] Plan of Care - Olamide Butts, OT - 12/28/2019 12:05 PM EDT Occupational Therapy Treatment Note Treatment Number OT: 2 Patient profile:??Timbo Su??is a 64 y.o.?male??admitted on 12/20/2019??by Dr. Magali Jo MD??transferred from [facility] after arriving to ED with fever and altered mental status.?Stayed @ [facility] x 3 days with worsening hallucinations and encephalopathy. W/u at OSH was negative for SARS-CoV-2, with BCx pending, and pt was started on zosyn for presumed UTI but as his mental status deteriorated, transferred to [facility] for neuro exam as he has hx of advancedParkinsons with deep brain stimulator. ??Admitted to ICU, required intubation, ??lumbar puncture attempts @ bedside 12/19 &??performed 12/20 under fluroscopy due to concern for infection/meningitis, on antibiotics. ??On IV metoprolol and diltiazem for A-fibrillation. DBS interrogated: within acceptable ranges, adjusted by Neurology. MRI brain planned 12/21(still pending). ??Extubated 12/22 to 4 L O2 nasal cannula. Pt was transferred to medicine. Social History: Patient lives with his spouse Arlyn, who works at a [employer] and isn't available during the day. Home Setup: 3 steps to enter w/ a railing, 1 level, has a walk-in shower w/ a seat and grab bars, nothing around his toilet DME: shower seat, grab bars, walker Baseline ADL/Mobility: Pt ambulates w/ a walker at baseline (reports he hasn't fallen in a while but when he does it is usually from walking backwards, per chart, he fell ~1 week earlier through woodpaneling). He reports he dresses himself ( occasionally helps w/ getting socks/shoes on). He manages his ADL's independently. He manages grooming standing at the sink. He helps w/ cooking, cleaning, laundry, etc. He drives only short distances. 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 Precautions/Special Considerations: fall, Parkinson's Disease w/ deep brain stimulator Interval History: transferred to hospital medicine S: I'm tired! (at the end of the session, but still doing exercises) O: Patient seen for therapeutic activities and demonstrated the following: ?? Self-care: ?? LB dressing: donned socks w/ min A (assist to get over end of toes, then able to draw each LE up on opposite knee and pull sock up w/ extra effort) ?? Toileting: used urinal seated w/ assist to hold once positioned; ambulated to the toilet in room w/ CGA x 1-2 and FWW, assist for hand placement during toilet transfer; stood w/ CGA for dependent BMhygiene (was completely continent of urine and bowel and asked for assistance appropriately) ?? Feeding: able to drink from cup w/ straw w/ one UE and place back on table ?? Functional Mobility: ?? Had been lifted to the recliner by nursing ?? Sit to stand: CGA with FWW, cue for hand placement ?? Pt ambulated to/from the bathroom then 150' with FWW and CGA x 2, assist for walker management/positioning and cues for taking big steps or stepping over a curb etc, tending to lean to the L ?? Stand to sit: CGA, assist for arm placement ?? Cognition: ?? Behavior / Mood: alert and cooperative ?? Alert and oriented to: person, place, time and situation (loooking at whiteboard) ?? Follows commands: 1 step and 100% of the time, delayed responses ?? Attention: slightly delayed/decreased ?? Safety awareness: chair alarm in place, agrees to call for help ?? Able to use TV remote, remembers working with therapists last week ?? Continues w/ flattened affect ?? Vision: glasses on during session ?? Vitals: Sp20: 98% on RA, HR: 70's ?? Therex: had pt complete UE, LE and trunk exercises seated with focus on big movements Pain: pt reported R hip and low back pain, did not rate (chronic, feels better w/ movement) Education: Pt/family/caregiver education ongoing regarding: Role of occupational therapy/rehabilitation, Transfers, ADL, Exercise, Positioning, Safety, Precautions/Protocol, Functional Mobility, Balance, Recommendations and Discharge planning. Staff Communication: Patient status, treatment, and mobility recommendations discussed with nursing/other staff. ASSESSMENT: Pt was seen for ongoing progression of activity. Pt had not been mobilizing over the weekend, but was able to ambulate to/from the bathroom with the FWW, participate in lower body dressing,feeding and toileting, walk 150' in the hallway, and complete seated exercises. Pt is very motivatedto preserve his independence and maximize his functional capacity. Pt benefits from assist for balance and cues for bigger movements. Pt will benefit from ongoing therapeutic interventions to achieve pt's and therapy goals. Anticipated Discharge Disposition: inpatient acute rehabilitation Equipment Recommendations: TBD Daily schedule / Staff Recommendations: ?? transfer to recliner chair as appropriate with min a x 2 and FWW, ambulate as tolerated with min A x 2 and FWW, benefits from cues for taking big steps' and may need assist to steer the walker ?? Encourage participation in ADL's by providing set up A on tray table and physical assist only as needed Goals: To be achieved within 1 week, by 01/01/20: 2. Patient will complete grooming tasks seated w/ setup only. 3. Patient will be mod A for toileting, including transfer, hygiene and clothing management. 4. Patient will be mod A for LB dressing. 5. Patient will be min A for seated sponge bath w/ setup. 6. Patient will consistently be oriented x 4. Therapy Frequency: 2-4 times/wk Total Evaluation Minutes, Occupational Therapy: 40(self-care x3) Pager: [phone] OLAMIDE BUTTS OT Occupational Therapy Rehabilitation Department Plan of Matthias - Lon Lomeli PT - 12/28/2019 12:00 PM EDT Physical Therapy Note Treatment Number PT: 2 Patient profile: Timbo Su is a 64 y.o. male admitted on 12/20/[address] Magali Jo MD transferred from [facility] after arriving to ED with fever and altered mental status. Stayed @ [facility] x 3 days with worsening hallucinations and encephalopathy. W/u at OSH was negative for SARS-CoV-2, with BCx pending, and pt was started on zosyn for presumed UTI but as his mental status deteriorated, transferred to [facility] for neuro exam as he has hx of advancedParkinsons with deep brain stimulator. Admitted to ICU, required intubation, lumbar puncture attempts @ bedside 12/19 & performed 12/20 under fluroscopy due to concern for infection/meningitis, on antibiotics. On IV metoprolol and diltiazem for A-fibrillation. DBS interrogated: within acceptable ranges, adjusted by Neurology. MRI brain planned 12/21(still pending). Extubated 12/22 to 4 L O2 nasal cannula. Multiple etiologies under consideration: undetected viral meningitis or other viral encephalitides or drug effect. ?- HSV negative ? - VZV pending ?- Crypto negative ?- Fungal culture negative to date Interval History: Moved out of ICU on 12/24. Barium swallow test today 12/27 Continues on telemetry as he's going NSR><a-fib Social History: Lives in [place], [place] with in a one level home with 3 steps to enter with a railing. working @ [employer]. Bathroom Set-up: walk-in shower with seat and grab bars. Baseline Mobility: Amb w/ FWW Equipment at home: FWW, seat in shower & grab bars ?? Precautions/Special Considerations: Parkinsons with deep brain stimulator Lines: IV, monitors Activity Orders: Act as tolerated Diet: dysphagia soft diet ?? Mobility and Positioning Recommendations: ?? Pt. to utilize walker and CGA x 2 for ambulation and transfers with nursing. ?? Please encourage up to chair for meal times as able. ?? Pt encouraged to ambulate frequently with staff, getting into the bathroom for toileting and walking out in the malave >/= 3 times daily as able. ?? Subjective: I need the urinal please, I need to go into the BR, move my bowels Objective: Patient seen for physical therapy and demonstrated the following: Pain: (B) hips are sore but more the R hip Vital Signs: HR= 80, SpO2=97% RA ?? Patient sitting reclined in chair when I entered his room, nurses mechanically lifted him bed > chair earlier today. ?? Sat chair upright so feet on floor and performed exercises as he felt and was very stiff. He's able to perform the following: ankle pumps, LAQ, marching (hip flexion sitting), leaning forwards and backwards, reaching s><s to work on rotation, raising arms overhead and high-five therapist with opposite arms to reach across his body and rotate. ?? He stood from chair on his own to walker and amb to BR with CGA, assist to turn ?? Assist with hygiene by OT after BM with him standing as he felt too stiff to perform seated on his own. ?? He stood from toilet pulling up on walker, walker stabilized by therapists. ?? He amb around 1 west unit 150' using FWW with CGA x 2, assist to steer walker, tends to lean to his L and veer that direction with gait, constant cues for larger steps, stopped a few times when he'dget taking small steps/shuffling & caught up on ball of foot, when stopped he'd widen his stanceand then able to begin with larger steps, also given auditory cue of monotone/rhythm to follow with his steps. ?? Returned to his room after walk and he sat up in chair and was agreeable to continue exercises seated as he commented his hips felt better after moving. ?? Pt left in bedside recliner chair with needs in reach following visit. Education: Pt reminded to call for help before getting up, encouraged him to walk more X's/day with staff while here. Assessment: Timbo Su [facility] (with [facility] & here) for work-up of worsening hallucinations and encephalopathy, worsening tremor, and fevers. He also has Parkinsons Dz and has deep brain stimulator. He presents alert and participatory but rigid. He is able to follow commands and perform exercises sitting as well as transfers and gait with walker. He seemed stronger with ability to stand on his own power but has difficulty backing up so assist with transfers. 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 He has less lines attached today and was continent and able to walk to BR. He is oriented to self but looked to the [employer] board to read the date and place. Pt will benefit from ongoing therapeutic interventions to achieve therapy goals. Discharge Recommendations: Based on the current findings, Anticipated Discharge Disposition: inpatient rehabilitation facility,swing bed when medically ready for hospital discharge. Consult Recommendations: No other consults recommended at this time. Equipment needs: he has FWW, shower seat, & grab bars @ home Physical Therapy Goals: To be achieved by 01-08-20: ?? 1. Pt demonstrate knowledge of safety precautions by appropriately request assistance to mobilize. 2. Pt. to demonstrate understanding of appropriate bed/chair exercises to help strength to perform on his own. 3. Pt. to perform bed mobility independently. 4. Pt. to perform sit >< stand transfers independently using a front wheeled walker. 5. Pt. to ambulate 50 feet independently using a a front wheeled walker. (distance met but not on his own) 6. Pt. to ambulate up/down 3 step/stairs using one rail independently to enter home. 7. Pt will tolerate progression towards upright with stable vital signs. ?? Plan: Therapy Frequency: 2-4 times/wk for therapy including balance training, bed mobility training,gait training, patient/family education, stair training, strengthening and transfer training. Patient/family understand and agree with plan as stated above. Time IN / OUT: 11:20-12:00 Total Evaluation Minutes, Physical Therapy: 40(TE-F x 3) LON LOMELI, PT Pager: [phone] Physical Therapy Inpatient Rehabilitation Department Plan of Care - Lisy Mckeon RN - 12/28/2019 12:46 AM EDT Problem: Patient Care Overview Goal: Plan of Care Review Outcome: Ongoing (Interventions Implemented as Appropriate) 12/28/19 0023 Coping/Psychosocial Plan Of Care Reviewed With patient OUTCOME EVALUATION NOTE: OUTCOME SUMMARY: Timbo Faith was A/O x4, VSS, afebrile, no pain reported. Patient denied SOB, chest pain, N/V. Administered scheduled medications with applesauce; patient accepted and tolerated well. (See Mar) Heating pad applied to L hip. Incontinent care of urine/linen change provided x5 (See Doc Flowsheets) Q 2hrturns maintained. (See Doc Flowsheets) 2L NC applied. Telemetry monitoring continued. Patient convert to A-fib at 0204; HR 80's - 90's; MD notified. Q 4hr BS maintained and insulin administered per MD orders. (See Results Review & Mar) Cluster care provided. Patient rested in bed in between nursing care. PLAN MOVING FORWARD: Monitor VS, pain, labs, I & O. Q 2hr turns. Q 4hr BS. Telemetry Barium Swallow Test 12/28/19? D/C to Rehab pending. INDIVIDUALIZED FALL PREVENTION INTERVENTIONS: Patient-specific fall risk factors per assessment: [current deficits]: Generalized weakness, limitedmobility, diagnosis. Assistance [level of assistance required for transfers and ambulation]: Ax2, mechanical lift. Supervision [direct monitoring required during toileting and ADLs]: Dependent Surveillance [continuous indirect monitoring]: Safety checks and hourly rounding, bed alarm on, callbell within reach, Masimo, Telemetry. Patient-specific fall prevention interventions for sensory deficits provided, if applicable: N/A CPG GOAL OUTCOME EVALUATION: Plan of Care - Rosa Moody RN - 12/27/2019 4:56 PM EDT Problem: Patient Care Overview Goal: Individualization & Mutuality Outcome: Ongoing (Interventions Implemented as Appropriate) OUTCOME EVALUATION NOTE: OUTCOME SUMMARY: Marcell with waxing and waning cognition today. Disoriented at times, especially after waking from a nap. Sometimes with a blank stare and increased facial flushing. Appearing more clear this afternoon, able to carry full, appropriate conversation. Fed himself lunch. Incontinent of stool x3, bowel medications held this AM. Incontinent of urine hourly, encouraging scheduled voiding with urinal. Q2 turns,patient reporting L hip pain relieved with repositioning and heat packs. On tele, NSR. Unable to obtain accurate EKG d/t interference from DBS. COVID r/o swab sent in anticipation for DC to rehab this week. PLAN MOVING FORWARD: Q2 turns, sacral mepilex. Scheduled voids, incontinence care PRN. On tele, monitor for Afib. PT/OT following, DC to rehab this week INDIVIDUALIZED FALL PREVENTION INTERVENTIONS: Patient-specific fall risk factors per assessment: [current deficits]: Medications, cognitive status, weakness Assistance [level of assistance required for transfers and ambulation]: Mechanical lift, 2 assist inbed Supervision [direct monitoring required during toileting and ADLs]: Dependent Surveillance [continuous indirect monitoring]: Masimo, call light in reach, bed alarm Patient-specific fall prevention interventions for sensory deficits provided, if applicable: NA CPG GOAL OUTCOME EVALUATION: Problem: Skin Integrity Impairment, Risk/Actual (Adult) Goal: Skin Integrity/Wound Healing Patient will demonstrate the desired outcomes by discharge/transition of care. Outcome: Ongoing (Interventions Implemented as Appropriate) 12/27/19 1647 Skin Integrity Impairment, Risk/Actual (Adult) Skin Integrity/Wound Healing making progress toward outcome Plan of Care - India Maldonado RN - 12/27/2019 3:15 AM EDT Problem: Patient Care Overview Goal: Plan of Care Review Outcome: Ongoing (Interventions Implemented as Appropriate) 12/26/19 1709 Coping/Psychosocial Plan Of Care Reviewed With patient Plan of Care Review Progress progress towards functional goals is fair OUTCOME EVALUATION NOTE: OUTCOME SUMMARY: Continues on Tele. Sustained Afib in 120-130's w/ c/o chest discomfort and/or indigestion, MD aware,EKG ordered, Tums given with some relief, will continue to follow. BP 120's. Afebrile, MTemp 99.5F. C/o slight SOB, SpO2 >93%, supplemental O2 given for comfort. Speech delayed. Dysphagia soft diet,takes pills crushed in . Incontinent of urine frequently this shift, MD aware. LBM 12/25. Q2hr turns. PLAN MOVING FORWARD: Monitor labs/VS Tele Modified Barium swallow study D/C to SNF INDIVIDUALIZED FALL PREVENTION INTERVENTIONS: Patient-specific fall risk factors per assessment: [current deficits]: Parkinsons, limited mobility,anxiety. Assistance [level of assistance required for transfers and ambulation]: X2-3 assist to roll in bed/lift. Supervision [direct monitoring required during toileting and ADLs]: Hands on. Surveillance [continuous indirect monitoring]: Masimo, tele, call white within reach, hourly rounding. Patient-specific fall prevention interventions for sensory deficits provided, if applicable: [X] N/A CPG GOAL OUTCOME EVALUATION: Plan of Care - Bibi Grande RN - 12/26/2019 5:15 PM EDT Problem: Patient Care Overview Goal: Plan of Care Review Outcome: Ongoing (Interventions Implemented as Appropriate) 12/26/19 1709 Coping/Psychosocial Plan Of Care Reviewed With patient Plan of Care Review Progress progress towards functional goals is fair OUTCOME EVALUATION NOTE: OUTCOME SUMMARY: Assumed care of patient at 1450. A+Ox4. VSS and afebrile on RA. Denies pain, nausea, or SOB. Patientincontinent of urine throughout shift - incontinence care provided. Patient bladder scanned - 0 mL. Assistance provided w/ meals. Frequent turns completed. Patient resting in bed in between nursing care. PLAN MOVING FORWARD: Monitor labs, VS Modified Barium swallow study D/C to SNF INDIVIDUALIZED FALL PREVENTION INTERVENTIONS: Patient-specific fall risk factors per assessment: [current deficits]: Generalized weakness, hx Parkinson's disease Assistance [level of assistance required for transfers and ambulation]: Total care Supervision [direct monitoring required during toileting and ADLs]: Hands on Surveillance [continuous indirect monitoring]: Hourly rounding, call light in reach, room near nurse's station, bed alarm, masimo Patient-specific fall prevention interventions for sensory deficits provided, if applicable: [X] N/A CPG GOAL OUTCOME EVALUATION: Plan of Care - Sissy Amezcua RN - 12/26/2019 3:59 PM EDT Problem: Patient Care Overview Goal: Plan of Care Review Outcome: Ongoing (Interventions Implemented as Appropriate) 12/26/19 1539 Coping/Psychosocial Plan Of Care Reviewed With patient Plan of Care Review Progress progress towards functional goals is fair OUTCOME EVALUATION NOTE: OUTCOME SUMMARY: VSS, sating well on RA, remained afebrile. Reported minimal lower back pain, stated it was tolerable. Morris discontinued this am, pt having urinary frequency, intermittently incontinent, incontinence care provided. NGT came out from 57cm to 54 cm, MD notified. NGT removed per MD this afternoon as pt is tolerating dysphagia soft diet well. Pt repositioned frequently as tolerated. Magnesium replenishedthis am. Pt transferred to 105, report given to RN. PLAN MOVING FORWARD: Monitor labs/vs Modified Barium swallow study D/C to SNF INDIVIDUALIZED FALL PREVENTION INTERVENTIONS: Patient-specific fall risk factors per assessment: [current deficits]: Mobility moderately impaired,hx of parkinson's disease Assistance [level of assistance required for transfers and ambulation]: ax2-3 in bed Supervision [direct monitoring required during toileting and ADLs]: Hands on Surveillance [continuous indirect monitoring]: Hourly rounding, masimo, bed alarm Patient-specific fall prevention interventions for sensory deficits provided, if applicable: N/A CPG GOAL OUTCOME EVALUATION: Plan of Care - Lou Dale RN - 12/26/2019 3:10 AM EDT Problem: Patient Care Overview Goal: Plan of Care Review Outcome: Ongoing (Interventions Implemented as Appropriate) 12/25/19 1717 12/25/19 1939 Coping/Psychosocial Plan Of Care Reviewed With -- patient Plan of Care Review Progress improving -- OUTCOME EVALUATION NOTE: OUTCOME SUMMARY: Pt arrived from ICU at change of shift. Oriented to room, bed alarm system, call light. Pt verbalized understanding, utilizing call light appropriately. Pt being treated for AMS w/ worsening tremor c/bAfib w/ RVR. Pt VSS, afebrile, course RA. A&Ox4. Noted BUE tremor and generalized rigidity. NGT in place, taped to center nostril. Flushed NGT per policy. Continued on telemetry, Afib intermittently. Morris in place, urine output adequate. Incontinent of stool. Pt taking pills crushed in pudding orapplesauce. Continued on dysphagia soft diet. Pt rested comfortably between care. Plan to discharge to SNF pending course. PLAN MOVING FORWARD: Monitor VS, labs, I&Os Monitor morris UOP Monitor Parkinson's symptoms Monitor telemetry- continue on scheduled diltiazem Monitor NGT - encourage dysphagia diet INDIVIDUALIZED FALL PREVENTION INTERVENTIONS: Patient-specific fall risk factors per assessment: [current deficits]: generalized weakness, recent admit from ICU, NGT Assistance [level of assistance required for transfers and ambulation]: Ax2 w/ FWW Supervision [direct monitoring required during toileting and ADLs]: eyes on, hands on Surveillance [continuous indirect monitoring]: Purposeful rounding, call white within reach, room near nurses station, bed alarm on, masimo on Patient-specific fall prevention interventions for sensory deficits provided, if applicable: N/A CPG GOAL OUTCOME EVALUATION: Goal: Individualization & Mutuality Outcome: Ongoing (Interventions Implemented as Appropriate) 12/26/19 0253 Mutuality/Individual Preferences What Anxieties, Fears or Concerns Do You Have About Your Health or Care? none at this time What Questions Do You Have About Your Health or Care? none at this time What Information Would Help Us Give You More Personalized Care? none at this time Goal: Fall Prevention-Safe Patient Handling Outcome: Ongoing (Interventions Implemented as Appropriate) 12/25/19 0812/25/19 2100 Restraint Interventions Safety Promotion/Fall Prevention -- activity supervised;fall prevention program maintained;muscle strengthening facilitated;nonskid shoes/slippers when out of bed;safety round/check completed Activity Activity Type -- activity adjusted per tolerance Activity Assistance Provided -- assistance, 2 people Assistive Device Utilized -- front-wheel walker Positioning Body Position -- supine Daily Care Interventions Self-Care Promotion independence encouraged -- Polanco Fall Risk History of Falling -- 0 Secondary Diagnosis -- 15 Ambulatory Aids -- 0 Intravenous Therapy/Heparin/Saline Lock -- 20 Gait/Transferring -- 10 Mental Status -- 15 Score -- 60 OTHER Polanco Fall Risk -- High Goal: Infection Control Outcome: Ongoing (Interventions Implemented as Appropriate) 12/25/19 1939 12/25/19 2100 Safety Interventions Isolation Precautions -- standard precautions maintained Infection Prevention -- barrier precautions utilized;equipment surfaces disinfected;single patient room provided;rest/sleep promoted;personal protective equipment utilized Coping Strategies Supportive Measures active listening utilized;self-responsibility promoted;verbalization of feelingsencouraged -- Goal: Discharge Needs Assessment Outcome: Ongoing (Interventions Implemented as Appropriate) 12/22/19 1741 12/26/19 025 Discharge Needs Assessment Concerns To Be Addressed cognitive/perceptual concerns;home safety concerns -- Readmission Within The Last 30 Days unable to assess -- Discharge Disposition -- still a patient Living Environment Transportation Available car -- Goal: Interdisciplinary Rounds/Family Conf Outcome: Ongoing (Interventions Implemented as Appropriate) 12/26/19 025 Interdisciplinary Rounds/Family Conf Participants nursing;patient Problem: Skin Integrity Impairment, Risk/Actual (Adult) Goal: Identify Related Risk Factors and Signs and Symptoms Related risk factors and signs and symptoms are identified upon initiation of Human Response Clinical Practice Guideline (CPG) Outcome: Ongoing (Interventions Implemented as Appropriate) 12/21/191954 Skin Integrity Impairment, Risk/Actual Skin Integrity Impairment, Risk/Actual: Related Risk Factors cognitive impairment;edema;fluid/nutrition status;immobility Signs and Symptoms (Skin Integrity Impairment) edema Goal: Skin Integrity/Wound Healing Patient will demonstrate the desired outcomes by discharge/transition of care. Outcome: Ongoing (Interventions Implemented as Appropriate) 12/21/191954 Skin Integrity Impairment, Risk/Actual (Adult) Skin Integrity/Wound Healing making progress toward outcome Plan of Care - Marya Maradiaga RN - 12/25/2019 5:39 PM EDT Problem: Patient Care Overview Goal: Plan of Care Review Outcome: Ongoing (Interventions Implemented as Appropriate) 12/25/191716 Coping/Psychosocial Plan Of Care Reviewed With patient Plan of Care Review Progress improving OUTCOME EVALUATION NOTE: OUTCOME SUMMARY: Pt had a good day. Tolerated RA with good O2 sats. Worked with PT/OT. Cleared for dysphagia soft/thin liquids per ACROBATIC DANCER. Tube feeds held. Taking pills whole in applesauce or pudding without issue. Ate dinner with assistance. VSS. PLAN MOVING FORWARD: Transfer to floor, PT/OT INDIVIDUALIZED FALL PREVENTION INTERVENTIONS: Patient-specific fall risk factors per assessment: [current deficits]: Generalized weakness, mobility deficits d/t Parkinsons, unfamiliar environment, lines and drains Assistance [level of assistance required for transfers and ambulation]: 2-3 assist Supervision [direct monitoring required during toileting and ADLs]: Purposeful rounding Surveillance [continuous indirect monitoring]: Spencer monitor Patient-specific fall prevention interventions for sensory deficits provided, if applicable: [X] Yes CPG GOAL OUTCOME EVALUATION: Plan of Care - Connie Roldan SLP - 12/25/2019 12:20 PM EDT Speech Therapy Note Patient Profile: Timbo Su is a 64 y.o. male admitted on 12/20/2019 for worsening hallucinations, encephalopathy, worsening tremor, and fever with course c/b atrial fibrillation with RVR. PMH significant for advanced Parkinson's disease s/p DBS, HTN, DM and hyperlipidemia. ACROBATIC DANCER following for dysphagia. Interval History: DHT placed last night & TF initiated Transferred to hospital medicine team Subjective: Patient with some confusion and perseverative thought pattern but agreeable to PO trials. Patient reports that experiences coughing with dry foods at has started to have to take pills one criselda time with water. Objective: Pt seen for dysphagia management and demonstrated the following: Pain: Patient reports pain in stomach & back. RN aware. Respiratory Status: Room air Current Diet: NPO diet (Give Meds) Feeding / Oral Care Status: Pt requires cues and / or assistance Cognitive-Linguistic Status: Patient alert. Delayed responses, some confused utterances & perseverative thought pattern. Command Following: Follows single step commands, Requires increased time to complete Positioning: Pt up to chair Oral / Laryngeal Mechanism Clinical Assessment: Tongue protrudes midline, slowed lateralization. Adequate labial seal. Mildly reduced intelligibility 2/2 reduced vocal intensity. Bolus Presentation(s): ?? Ice chips ?? Thin liquid via spoon, via straw, sequential sips ?? Thorofare thickened liquid via spoon ?? Puree ?? Regular solid Oral Preparatory Phase: Prolonged mastication and reduced bolus cohesion with solids. Delayed oral transit across consistencies. Mild bolus holding with thin liquids. Negative anterior loss, negative oral stasis. Pharyngeal Phase: Swallow initiation appears mildly delayed. Negative cough, throat clear, or changein vocal quality even with sequential sips of thin liquids. Esophageal Phase: No s/sx of esophageal dysphagia Education: Patient educated on results and recommendations. Patient status, treatment and swallow recommendations were discussed with nursing & hospital medicine MD Assessment: Pt was seen today for a follow-up ACROBATIC DANCER visit for dysphagia. Patient presents with mild oral dysphagia and suspected pharyngeal dysphagia characterized by prolonged mastication, delayed oral transit, reduced bolus cohesion, and delayed appearing pharyngeal swallow. Patient did not demonstrate any overt s/sx of aspiration across trials including with sequential sips of thin liquids. Recommend initiation of a dysphagia soft diet & thin liquids with adherence to aspiration precautions as below. Please monitor closely for fluctuations in status and s/sx of aspiration with PO. Given patient's diagnosis and self-reported progression of dysphagia continue to recommend instrumental assessment with modified barium swallow. This was discussed with MD and will try and schedule forearly next week. Pt will benefit from continued therapeutic interventions to achieve therapy goals. Diagnosis: mild oral phase and suspected pharyngeal phase dysphagia Recommendations: Diet: Dysphagia soft, Thin liquids PO medications: whole in bite of pudding or applesauce Aspiration Precautions: ?? Upright position during meals and for at least 30 mins following ?? Small sips and bites while eating ?? Slow rate; swallow between bites ?? Excellent oral care ?? Recommend MBS to formally assess swallow Speech Therapy Goals: Pt will tolerate least restrictive diet without evidence of dysphagia / aspiration. Pt / caregiver will be independent with aspiration precautions, diet modifications, and safe swallowing strategies. Plan: Therapy Frequency: 2-4 times/wk Pt./family are in agreement with treatment plan. Total Evaluation Minutes, Speech Language Pathology: 30 Connie Ribeiro. Yuli, MS, CCC-ACROBATIC DANCER Pager: [phone] Speech-Language Pathologist Inpatient Rehabilitation Medicine Plan of Care - Olamide Butts OT - 12/25/2019 11:05 AM EDT Occupational Therapy Evaluation Patient profile: Timbo Su is a 64 y.o. male admitted on 12/20/[address] Magali Jo MD transferred from [facility] after arriving to ED with fever and altered mental status. Stayed @ [facility] x 3 days with worsening hallucinations and encephalopathy. W/u at OSH was negative for SARS-CoV-2, with BCx pending, and pt was started on zosyn for presumed UTI but as his mental status deteriorated, transferred to [facility] for neuro exam as he has hx of advancedParkinsons with deep brain stimulator. Admitted to ICU, required intubation, lumbar puncture attempts @ bedside 12/19 & performed 12/20 under fluroscopy due to concern for infection/meningitis, on antibiotics. On IV metoprolol and diltiazem for A-fibrillation. DBS interrogated: within acceptable ranges, adjusted by Neurology. MRI brain planned 12/21(still pending). Extubated 12/22 to 4 L O2 nasal cannula. Multiple etiologies under consideration: undetected viral meningitis or other viral encephalitides or drug effect. ?- HSV negative ? - VZV pending ?- Crypto negative ?- Fungal culture negative to date No past medical history on file. Past Surgical History: Procedure Laterality Date ??? CHOLECYSTECTOMY ??? HIP SURGERY as a child ??? PRO APPLY/REMOVE CRANIAL FIX DEV Bilateral 06/10/2017 PLACEMENT-STARFIX FIDUCIALS (WRVU 4) performed by Randall Sapp MD at [facility] ? ? PRO IMP STIM, CRANIAL, SUBQ, >1 ARRAY Bilateral 06/24/2017 PLACEMENT ADD'L CRANIAL NEUROSTIMULATOR (WRVU 9.93) performed by Randall Sapp MD at [facility] ??? PRO IMPLANT NEUROELECTRDE, ADDL N/A 06/17/2017 @IMPLANTATION OF ADD'L NEUROSTIMULATOR ELECTRODE (WRVU 7.91) performed by Randall Sapp MD at [facility] ??? PRO IMPLANT NEUROELECTRODE Bilateral 06/17/2017 @IMPLANTATION OF NEUROSTIMULATOR ELECTRODE-RUBY (WRVU 33.03) performed by Randall Sapp MD at [facility] Social History: Patient lives with his spouse Arlyn, who works at a bank and isn't available during the day. Home Setup: 3 steps to enter w/ a railing, 1 level, has a walk-in shower w/ a seat and grab bars, nothing around his toilet DME: shower seat, grab bars, walker Baseline ADL/Mobility: Pt ambulates w/ a walker at baseline (reports he hasn't fallen in a while but when he does it is usually from walking backwards, per chart, he fell ~1 week earlier through woodpaneling). He reports he dresses himself ( occasionally helps w/ getting socks/shoes on). He manages his ADL's independently. He manages grooming standing at the sink. He helps w/ cooking, cleaning, laundry, etc. He drives only short distances. 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 Precautions/Special Considerations: fall, DHT, morris, flexiseal, h/o Parkinson's Disease with deep brain stimulator, NPO Subjective: What are those people looking at? (appears slightly paranoid, RN aware) Objective: Seen today for OT evaluation and self-care. Cognitive Status/Behavior: ?? Behavior / Mood: alert, cooperative and impaired task initiation ?? Alert and oriented to: person, aware but unable to state Month accurately (said October thenwhen asked the month that comes after October, he said December). Unclear if he was oriented to hospital/[facility] ?? Follows commands: 1 step, 100% of the time, requires increased time and requires repetition ?? Attention: difficulty attending to task/directions, cues to redirect ?? Safety awareness: decreased insight into deficits-may overestimate abilities, but agrees to call for help (chair alarm in place) ?? Vague responses ?? Appeared slightly paranoid-asking for blind to be shut and curtain closed at different points, then asking where the noise was coming from (from TV remote- seemed better after explained) then asking about what the people outside the room were all talking about (4 people huddled looking in a different direction). RN was made aware Vision & Perception: ?? corrective lenses for reading-able to see the clock on the wall Communication: grossly functional but hypophonic and somewhat vague responses Range of motion, strength, coordination: Hand dominance: right UE status: ROM is grossly WFL, strength is grossly WFL but poor coordination w/ tremors and jerky movements LE limitations: reported some discomfort in his hips w/ hip flexion x ~1 week; stiffness, mild weakness, see PT note for details Decreased trunk flexibility (tends to extend, needs assist to maintain trunk flexion) Sensation: denied numbness/tingling Activities of Daily Living: Self-feeding: NPO, DHT in place Grooming: mod A to brush hair 2/2 poor coordination Dressing: UB dressing: min A to change angeline; LB dressing: able to draw LE's up to reach his feet but unable to pull his socks up (poor trunk flexibility to lean forward and poor UE coordination); would be max A for pant hike Bathing: completed sponge bath seated w/ mod A, needed assist for initiation and progression of task, poor coordination with jerking motions and occasionally got stuck in certain areas Toileting: morris and flexiseal in place, dependent for hygiene when flexi leaked (RN aware).; could transfer to a commode/toilet w/ 2 assist Functional Mobility: Progressed to the chair position of the bed w/ footboard removed Sit to stand: mod A x 2 with FWW but progressed to min A x 2 with FWW Pt stood on several occassions during session Pt pivoted to the chair on his R side w/ min A x 2, assist to steer walker, cues for taking big steps, took a seated break, then ambulated mostly straight w/ CGA to min a x 1-2, IV pole and chair follow w/ cues for big steps (takign shuffling steps) and assist to maneuver his walker Pt was left in the chair w/ alarm in place Balance: Sitting balance: difficulty maintaining unsupported sitting forward, significant effort to pull himself forward Standing balance: CGA to min a x 1 w/ FWW Vitals: At Rest With Activity SpO2 98% 80-98%, inconsistent reading but did not appear to really desaturate Heart Rate 80's 100's Blood Pressure 139/69 (85) 139/67 (82) Pain: 5/10 in his R hip, unable to elaborate, appeared worse with hip flexion, better when standing/walking Skin: bruises Education: Patient was educated on Role of occupational therapy/rehabilitation, Transfers, Assistivedevice/technique, ADL, Exercise, Breathing exercises, Positioning, Safety, Precautions/Protocol, Functional Mobility, Balance and Recommendations and verbalizes understanding but may benefit from reinforcement. Patient status, treatment, and mobility recommendations discussed with nursing. Assessment: Pt was seen for an occupational therapy evaluation. Timbo Su presents with the following performance skill deficits and client factors: variable right hip pain, decreased activity tolerance, decreased flexibility/ROM with stiffness throughout, decreased strength in LE's, decreased sit ting/standing balance, cognitive deficits with decreased sustained attention/delayed responses, decreased motor control, decreased postural control and compromised mobility status. Pt was seen for lengthy session with sponge bath, upper and lower body dressing, toileting hygiene, and ambulation. He is motivated to progress his functional status and appears to value his independence. At this time, would recommend acute rehab at d/c given recent falls. Pt will benefit from further inpatient OT interventions to address performance deficits and maximize participation and independence with occupations of daily living. Equipment needs at discharge: TBD Anticipated Discharge Disposition: inpatient acute rehabilitation Other Recommendations: ?? transfer to recliner chair as appropriate with min a x 2 and FWW, ambulate as tolerated with min A x 2 and FWW, benefits from cues for taking big steps' and may need assist to steer the walker ?? Encourage participation in ADL's by providing set up A on tray table and physical assist only as needed. Other Recommendations: No other consults recommended at this time Goals: To be achieved within 1 week, by 01/01/20: 1. Patient will complete grooming tasks seated w/ setup only. 2. Patient will be mod A for toileting, including transfer, hygiene and clothing management. 3. Patient will be mod A for LB dressing. 4. Patient will be min A for seated sponge bath w/ setup. 5. Patient will consistently be oriented x 4. Plan: OT: Therapy Frequency: 2-4 times/wk Planned OT interventions: Role of occupational therapy/rehabilitation, Transfers, Assistive device/technique, Adaptive equipment training, ADL, Exercise, Breathing exercises, Positioning, Safety, Precautions/Protocol, Functional Mobility, Activity pacing/Energy conservation, Balance, Recommendations, Family training and Discharge planning. Total Evaluation Minutes, Occupational Therapy: 90(eval and self=care x 1) 2017 OT Evaluation Code Rationale: ?? Diagnosis & Pertinent Co-Morbidities affecting Plan of Care: see PMHx ?? Occupational Profile & Client History: Brief Expanded Extensive x ?? Assessment of Occupational Performance: 1-3 performance deficits 3-5 performance deficits 5 + performance deficits x ?? Clinical Decision Making: Low Moderate High x Clinical decision making of high complexity using standardized patient assessment instrument and measurable assessment of functional outcome. Pager: [phone] OLAMIDE BUTTS OT 12/25/2019 Occupational Therapy Rehabilitation Department Plan of Care - Lon Lomeli, PT - 12/25/2019 10:50 AM EDT Physical Therapy Evaluation Patient profile: Timbo Su is a 64 y.o. male admitted on 12/20/[address] Magali Jo MD transferred from [facility] after arriving to ED with fever and altered mental status. Stayed @ [facility] x 3 days with worsening hallucinations and encephalopathy. W/u at OSH was negative for SARS-CoV-2, with BCx pending, and pt was started on zosyn for presumed UTI but as his mental status deteriorated, transferred to [facility] for neuro exam as he has hx of advancedParkinsons with deep brain stimulator. Admitted to ICU, required intubation, lumbar puncture attempts @ bedside 12/19 & performed 12/20 under fluroscopy due to concern for infection/meningitis, on antibiotics. On IV metoprolol and diltiazem for A-fibrillation. DBS interrogated: within acceptable ranges, adjusted by Neurology. MRI brain planned 12/21(still pending). Extubated 12/22 to 4 L O2 nasal cannula. Multiple etiologies under consideration: undetected viral meningitis or other viral encephalitides or drug effect. - HSV negative - VZV pending - Crypto negative - Fungal culture negative to date Patient with the following active problems: Past Surgical History: Procedure Laterality Date ??? CHOLECYSTECTOMY ??? HIP SURGERY as a child ??? PRO APPLY/REMOVE CRANIAL FIX DEV Bilateral 06/10/2017 PLACEMENT-STARFIX FIDUCIALS (WRVU 4) performed by Randall Sapp MD at [facility] ? ? PRO IMP STIM, CRANIAL, SUBQ, >1 ARRAY Bilateral 06/24/2017 PLACEMENT ADD'L CRANIAL NEUROSTIMULATOR (WRVU 9.93) performed by aRndall Sapp MD at [facility] ??? PRO IMPLANT NEUROELECTRDE, ADDL N/A 06/17/2017 @IMPLANTATION OF ADD'L NEUROSTIMULATOR ELECTRODE (WRVU 7.91) performed by Randall Sapp MD at [facility] ??? PRO IMPLANT NEUROELECTRODE Bilateral 06/17/2017 @IMPLANTATION OF NEUROSTIMULATOR ELECTRODE-RUBY (WRVU 33.03) performed by Randall Sapp MD at [facility] Active Non-Hospital Problems Diagnosis ??? S/P deep brain stimulator placement ??? Mixed anxiety and depressive disorder ??? Sensory ataxia ??? Diabetic polyneuropathy ??? Orthostatic hypotension ??? Parkinson's disease ??? Hypertension ??? Hyperlipidemia ??? Diabetes mellitus ??? Carpal tunnel syndrome, bilateral ??? Sciatica of left side ??? Abnormal LFTs (liver function tests) ??? Cholelithiasis ??? REM behavioral disorder ??? Ankle fracture, left ??? Fatigue Social History: Lives in [place], [place] with in a one level home with 3 steps to enter with a railing. working @ [employer]. Bathroom Set-up: walk-in shower with seat and grab bars. Baseline Mobility: Amb w/ FWW Equipment at home: FWW, seat in shower & grab bars Precautions/Special Considerations: Parkinsons with deep brain stimulator Lines: IV's, ICU monitors, morris & flexiseal. Activity Orders: Act as tolerated Diet: dysphagia soft diet Mobility and Positioning Recommendations: ?? Pt. to utilize walker and min A x 2 for ambulation and transfers with nursing. ?? Please encourage up to chair for meal times as able. ?? Pt encouraged to ambulate frequently with staff, getting into the bathroom for toileting and walking out in the malave >/= 3 times daily as able. Subjective: ???I'd like to get up?? Objective: Pt seen for evaluation today. Pain: reported L hip/groin pain that comes & goes Vital Signs: HR=88 SpO2=98% RA MU=809/69 Using Acapella, strong productive cough, using yankeur suction. Mental Status: alert, oriented to self, place, not date or year, able to follow commands Vision: reading glasses not here in hospital Skin: calloused knee's Musculoskeletal: ROM: Able to raise arms to comb hair, able to perform ankle pumps, LAQ, marching seated (hip flexion). Bradykinesia and dec coordination noted when performing ADL tasks. Decrease flexibility when trying to bring up his leg into figure 4 style to don socks. Strength: anti-gravity strength otherwise generalize weakness Bed Mobility: Supine > Sit: ICU bed moved into full chair position w/ footboard removed, he was able to pull self forwards with railings. Sit to Supine: didn't get back to bed, stayed in recliner chair. Transfers: Sit to Stand: min A x 2 to walker Stand to Sit: min A to help transition hands to armrests to lower into chair Bed to Chair: Mod A x 2 with walker difficulty backing up Gait: Distance: across room just outside door ~ 15' total (unfortunately flexiseal leaking but pt commented he'd had enough). Device used: walker Level of assist: Min A x 2 & pushing IV pole and chair following Gait mechanics: slow reza, shuffled feet, very small steps Stairs: not assessed today Balance: Sitting Static: fair-initially needed min A, once he sat few min's then able to hold midline. Sitting Dynamic: poor-assist, tends to lean to the side even in supported sitting in chair. Standing Static: fair- holding walker and min A Standing Dynamic / Gait: Fair-FWW and min A x 2 for short distances. Education: patient has been educated on Safety , Role of therapy and Discharge planning and acknowledged understanding. Patient status, treatment, and mobility recommendations discussed with nursing. Assessment: Timbo Su was seen today for physical therapy evaluation. Hospital day #8 (with OSH & here) for work-up of worsening hallucinations and encephalopathy, worsening tremor, and fevers. He is on empiric coverage for viral meningitis and team awaiting other results, etiology unknown. He is now awake, oriented to self but not to date, able to follow commands but is very slow, bradykinesia & hx of Parkinson Dz. He is now extubated and not requiring any supplemental oxygen, has a productive cough, able to use Acapella & suction for secretions. Decreased AROM seated in bed for ADL's, feeling stiff and demonstrating decrease coordination to don socks or brush hair requiring assist to complete tasks, assist to stand due to decrease strength, decrease sitting balance with difficulty maintaining midline posture, decrease balance requiring walker and min A x 2 to walk short distance, dec activity tolerance asfatigued with 12' of ambulation & has a shuffle gait pattern but has been hospitalized for a week and with minimal activity. Baseline he states still works so he is home alone and usually is (I) with ADL's and helps around the home. Since is working and he's not at his baseline level currently, would recommend short rehab stay prior to return home. The pt would benefit from skilled therapy services while in the hospital to maximize functional abilities. Discharge Recommendations: Based on the current findings, Anticipated Discharge Disposition: inpatient acute rehabilitation, swing bed when medically ready for hospital discharge. Consult Recommendations: CM for rehab referrals Equipment needs: assess ongoing, he has FWW, shower seat, & grab bars @ home Goals: To be achieved by 529-20: 1. Pt demonstrate knowledge of safety precautions by appropriately request assistance to mobilize. 2. Pt. to demonstrate understanding of appropriate bed/chair exercises to help strength to perform on his own. 3. Pt. to perform bed mobility independently. 4. Pt. to perform sit >< stand transfers independently using a front wheeled walker. 5. Pt. to ambulate 50 feet independently using a a front wheeled walker. 6. Pt. to ambulate up/down 3 step/stairs using one rail independently to enter home. 7. Pt will tolerate progression towards upright with stable vital signs. Plan: Therapy Frequency: 2-4 times/wk for therapy including balance training, bed mobility training,gait training, patient/family education, stair training, strengthening and transfer training. Patient/family understand and agree [...] Addressing 1-2 elements Addressing 3 + elements x Addressing 4 + elements ?? Clinical presentation: See assessment above. Stable/Uncomplicated Evolving/Fluctuating Symptoms Unstable/Unpredictable x ?? Clinical decision making of moderate complexity based on pt's functional performance as outlined in this evaluation. Time IN / OUT: -9:40-10:50 Total Evaluation Minutes, Physical Therapy: 80(EV) LON LOMELI, PT Pager: [phone] Physical Therapy Inpatient Rehabilitation Department Plan of Care - Pattie Andrade RN - 12/24/2019 6:58 PM EDT OUTCOME EVALUATION NOTE: OUTCOME SUMMARY: Marcell was extubated this afternoon ~1300 to NC; currently on 2L maintaining O2 sat mid to high 90's. RASS 0/-1. Follows commands. IV dilt d/c'd this afternoon; pt transitioned to PO. One time IV metopgiven this evening for HR jumping up to 140's-150's non-sustaining with good effect. DHT placed per small bore team post ACROBATIC DANCER eval (see note). TF initiated. Incontinent of stool, care provided. Morris draining adequate UOP. DBS re-adjusted per provider. Turned and repositioned as tolerated. Able to makeneeds known. Will CTM. PLAN MOVING FORWARD: - Monitor neuro status - Monitor PD symptoms - MRI magali? INDIVIDUALIZED FALL PREVENTION INTERVENTIONS: Patient-specific fall risk factors per assessment: [current deficits]: Unfamiliar environment, generalized weakness, hx fall, Parkinson's, TF, DHT, morris, IV sites/pole, monitor cords, DBS, high fall risk assessment score Assistance [level of assistance required for transfers and ambulation]: Bedrest/2 assist Supervision [direct monitoring required during toileting and ADLs]: Bedrest/2assist Surveillance [continuous indirect monitoring]: Eyes-on, hands-on, bed alarm, Spencer ICU monitor, room near nurses' station Patient-specific fall prevention interventions for sensory deficits provided, if applicable: [X] N/A CPG GOAL OUTCOME EVALUATION: Plan of Care - Jessie Francisco ACROBATIC DANCER - 12/24/2019 4:02 PM EDT Speech Therapy Bedside Swallow Evaluation Patient Profile: Timbo Su is a 64 y.o. male admitted on 12/20/2019 for worsening hallucinations, encephalopathy, worsening tremor, and fever with course c/b atrial fibrillation with RVR. PMH significant for advanced Parkinson's disease s/p DBS, HTN, DM and hyperlipidemia. ACROBATIC DANCER consulted for bedside swallow assessment. Prior Level of Swallow Function: At last office visit with Dr. Hooper (neurology) in May 2019, pt with slight softening of voice but otherwise no overt speech or swallow deficits. At that time, consuming regular diet consistency without concern for dysphagia. According to pt, he has begun to experience difficulty with PO medications. He also endorses dysphagia for dry particulate solids (like crackers),tough breads, meats. He has not seen ACROBATIC DANCER in past for voice or swallow. Subjective: Pt extubated earlier in day. Pt sitting in chair position in bed, conversant but confused. Objective: Pt seen for evaluation today. Pain: pt denies pain at this time, but has been reporting neuropathic pain to RN Respiratory Status: nasal canula, 1 L/min Vision: did not assess Hearing: possible mild hearing loss Current Diet: NPO diet (Give Meds) Feeding / Oral Care Status: Pt is dependent currently due to edema in bilateral UE Cognitive-Linguistic Status: Pt alert, minimally conversant. Oriented to self, place, and recall forsome recent medical events. Slow to respond, some answers to questions are a little odd, otherwise generally appropriate. Follows Commands: Follows single step commands, Requires increased time to complete Positioning: HOB at 60 degrees Oral / Laryngeal Mechanism Clinical Assessment: ?? Lingual: fasciculations, particularly with protrusion. Lateralization is reduced, but improves with tactile cue. Strength appears reduced significantly ?? Labial / Buccal: reduced lip closure for cheek puff ?? Velar: diminished elevation ?? Sensation: appears intact ?? Vocal fold function and airway protection: reduced vocal intensity, particularly for longer utterances. cough is weak and only somewhat productive. ?? Speech Intelligibility: mildly impaired given above ?? Mucosa: dry ?? Dentition: present and adequate Bolus Presentation(s) ?? Ice chips ?? Thorofare thickened liquid 5 mL, via spoon, via cup, via straw, sequential sips ?? Puree Oral Preparatory Phase ?? Mastication: reduced jaw opening for chewing, minimal rotary motion observed for ice chip ?? Oral Transit: appears adequate for consistencies trialed, some small amount of bolus holding is evident ?? Bolus Cohesion: adequate for consistencies trialed, suspect would be problematic for more complexsolids ?? Labial Seal / Loss: negative ?? Oral Stasis: negative Pharyngeal Phase ?? Laryngeal Elevation: present, perhaps slightly diminished ?? Vocal quality change: negative ?? Cough / throat clear: immediate after ice chip ?? Pt. complaint of food getting stuck: negative ?? Fatigue across trials: No ?? Respiratory rate and respiratory swallow pattern: coordinated Esophageal Phase ?? Appears to be WFL, No overt clinical s/s of esophageal phase dysphagia noted during this evaluation. Education: Patient educated on results and recommendations, and verbalized understanding. Patient status, treatment and swallow recommendations were discussed with nursing. Assessment: Pt presents with moderate oral phase and suspected pharyngeal phase dysphagia characterized by lingual weakness, decreased lingual coordination resulting in delayed oral initiation and suspected delayed pharyngeal phase initiation, with overt s/s aspiration for single ice chips. While pt appears to tolerate smooth purees and nectar thickened liquids, given his diagnosis and self-reported progression of dysphagia would strongly recommend instrumental assessment with modified barium swallow prior to diet progression. In meantime, discussed that DHT placement would be optimal to allow for safe, timely administration of PD medications in particular. ACROBATIC DANCER team will follow closely. Diagnosis: moderate oral phase and suspected pharyngeal phase dysphagia Recommendations: Diet: NPO PO medications: IV or other alternative means only Aspiration precautions: Excellent oral care Recommend MBS to formally assess swallow Pt will benefit from continued ACROBATIC DANCER services while hospitalized and Pt will benefit from ACROBATIC DANCER servicesin the discharge location. Speech Therapy Goals: (To be met by discharge) Pt will tolerate least restrictive diet without evidence of dysphagia / aspiration. Pt / caregiver will be independent with aspiration precautions, diet modifications, and safe swallowing strategies. Plan: Therapy Frequency: 2-4 times/wk Pt./family are in agreement with treatment plan. Total Evaluation Minutes, Speech Language Pathology: 20 Thank you for this consult with this patient. Please feel free to page me with any questions or concerns. Jessie Francisco MS, [facility]-ACROBATIC DANCER Inpatient Speech Pathologist Pager #[phone] Plan of Care - Jeb Breen RN - 12/24/2019 5:29 AM EDT Problem: Patient Care Overview Goal: Plan of Care Review Outcome: Ongoing (Interventions Implemented as Appropriate) 12/24/19 0517 Coping/Psychosocial Plan Of Care Reviewed With patient;spouse Plan of Care Review Progress no change OUTCOME EVALUATION NOTE: OUTCOME SUMMARY: Patient condition remains generally the same, still in A-Fib, controlled, febrile, less rigid and easily arousable but not following commands, Dilt @15mg/hr and propofol continues at 20. Mag and k replaced, back and pressure care done. PLAN MOVING FORWARD: Continue with hemodynamic, electrolytes monitoring and management INDIVIDUALIZED FALL PREVENTION INTERVENTIONS: Patient-specific fall risk factors per assessment: [current deficits]: Sedated and not following commands Assistance [level of assistance required for transfers and ambulation]: tota Supervision [direct monitoring required during toileting and ADLs]: devices Surveillance [continuous indirect monitoring]: spencer icu Patient-specific fall prevention interventions for sensory deficits provided, if applicable: [X] Yes CPG GOAL OUTCOME EVALUATION: Plan of Care - Sydnie Guillermo RN - 12/23/2019 7:52 PM EDT Problem: Patient Care Overview Goal: Plan of Care Review Outcome: Ongoing (Interventions Implemented as Appropriate) 12/23/19 0510 12/23/19 0800 Coping/Psychosocial Plan Of Care Reviewed With -- patient;spouse Plan of Care Review Progress no change -- OUTCOME EVALUATION NOTE: OUTCOME SUMMARY: Patient continues to open eyes to voice, and intermittently obey commands, rigid muscle tone in all extremities, propofol maintained at 20mcg/kg/min. Hypotensive (MAP 55) refractory to paused diltiazemdrip, administered 500mL LR with good effect. Diltiazem titrated to 15mg/hr to maintain HR approximately 100. MRI will not accept patient for scan while on acetaminophen and/or febrile. Tmax 39.2, PRN Tylenol held per provider and hyperthermia treated with ice- packs to little effect. MRI cancelled. OGT feed advanced to goal 62mL/hr. Continues to put out low-100s/2hr orange/chary UO. Spouse, Gwen, updated. PLAN MOVING FORWARD: MRI, TTE, continue to monitor and manage BP and hyperthermia. CPG GOAL OUTCOME EVALUATION: Goal: Infection Control Outcome: Ongoing (Interventions Implemented as Appropriate) 12/23/19 0800 12/23/19 1200 12/23/19 1800 Safety Interventions Isolation Precautions -- -- standard precautions maintained Infection Prevention -- environmental surveillance performed;equipment surfaces disinfected;personalprotective equipment utilized;rest/sleep promoted;single patient room provided;visitors restricted/screened -- Coping Strategies Supportive Measures relaxation techniques promoted -- -- Problem: Skin Integrity Impairment, Risk/Actual (Adult) Goal: Identify Related Risk Factors and Signs and Symptoms Related risk factors and signs and symptoms are identified upon initiation of Human Response Clinical Practice Guideline (CPG) Outcome: Ongoing (Interventions Implemented as Appropriate) 12/21/191954 Skin Integrity Impairment, Risk/Actual Skin Integrity Impairment, Risk/Actual: Related Risk Factors cognitive impairment;edema;fluid/nutrition status;immobility Signs and Symptoms (Skin Integrity Impairment) edema Goal: Skin Integrity/Wound Healing Patient will demonstrate the desired outcomes by discharge/transition of care. Outcome: Ongoing (Interventions Implemented as Appropriate) 12/21/191954 Skin Integrity Impairment, Risk/Actual (Adult) Skin Integrity/Wound Healing making progress toward outcome Problem: Ventilation, Mechanical Invasive (Adult) Goal: Signs and Symptoms of Listed Potential Problems Will be Absent, Minimized or Managed (Ventilation, Mechanical Invasive) Signs and symptoms of listed potential problems will be absent, minimized or managed by discharge/transition of care (reference Ventilation, Mechanical Invasive (Adult) CPG). Outcome: Ongoing (Interventions Implemented as Appropriate) 12/23/191941 Ventilation, Mechanical Invasive Problems Assessed (Mechanical Ventilation, Invasive) all Problems Present (Mechanical Ventilation, Invasive) inability to wean Plan of Care - Jeb Breen RN - 12/23/2019 5:27 AM EDT Problem: Patient Care Overview Goal: Plan of Care Review Outcome: Ongoing (Interventions Implemented as Appropriate) 12/23/19 0510 Coping/Psychosocial Plan Of Care Reviewed With patient Plan of Care Review Progress no change OUTCOME EVALUATION NOTE: OUTCOME SUMMARY: Upon hand off, pt on sinus rhythm, normotensive, mild fever, MRI postponed due to fever,around 2 patient goes into A fib RVR, metoprolol 5mg iv stat given without respite, Dilt 5mg iv push, started on on infusion, now at 15mg/hr, , neuro aguayo extremities rigid , open eyed to pain but does not track, withdraws from pain, Mag and K replaced, back and pressure care done. PLAN MOVING FORWARD: Hemodynamic monitoring, heart rate management, electrolytes monitoring and management INDIVIDUALIZED FALL PREVENTION INTERVENTIONS: Patient-specific fall risk factors per assessment: [current deficits]: sedated Assistance [level of assistance required for transfers and ambulation]: total Supervision [direct monitoring required during toileting and ADLs]: devices Surveillance [continuous indirect monitoring]: Spencer icu Patient-specific fall prevention interventions for sensory deficits provided, if applicable: [X] Yes CPG GOAL OUTCOME EVALUATION: Plan of Care - Marcelino Payne RN - 12/22/2019 5:48 PM EDT Problem: Patient Care Overview Goal: Plan of Care Review 12/22/191740 Coping/Psychosocial Plan Of Care Reviewed With spouse;patient Plan of Care Review Progress unable to show any progress toward functional goals Goal: Fall Prevention-Safe Patient Handling 12/22/191740 Restraint Interventions Safety Promotion/Fall Prevention activity supervised Activity Activity Type bedrest Activity Assistance Provided assistance, 2 people Assistive Device Utilized mechanical lift Positioning Body Position neutral body alignment;neutral head position;with 2-person assist Daily Care Interventions Self-Care Promotion safe use of adaptive equipment encouraged Polanco Fall Risk History of Falling 25 Secondary Diagnosis 15 Ambulatory Aids 0 Intravenous Therapy/Heparin/Saline Lock 20 Gait/Transferring 20 Mental Status 15 Score 95 Goal: Infection Control 12/22/191740 Safety Interventions Isolation Precautions standard precautions maintained Coping Strategies Supportive Measures active listening utilized;relaxation techniques promoted Goal: Discharge Needs Assessment 12/22/191740 Discharge Needs Assessment Concerns To Be Addressed cognitive/perceptual concerns;home safety concerns Readmission Within The Last 30 Days unable to assess Living Environment Transportation Available car Pt with stable VS, temp 37.6 remains on vent, unable to do mri until 8pm tonight, updated related to care, awaiting lab results, pt dosent follow commands at this time. Remains on propfol for sedation, tube feeds started at 10ml advance by 10 ml q4 hours, Consult Note - Eneida Quinonez RN - 12/22/2019 12:01 PM EDT Certified Wound Care Nurse Rounding Note Situation: Asked to see Timbo Su by Yari Chairez RN for low Edwin Score. Background: eD-H notes reviewed for history, admitting diagnosis and active problem list. Rounded on patient, discussed patient with RN. Reviewed assessment of all bony prominences and underdevices for pressure ulcer development, ability to turn/reposition and if there are any barriers dueto patient condition for routine care, turning schedules and or pressure ulcer prevention. ? Issues/concerns identified: None, right knee with blanchable red areas. RN states sacral skin intact, patient is able to be turned. ? Current Wound Care Recommendations reviewed: Follow hospital standard for pressure injury prevention and skin care. Refer to adult/pediatric pressure ulcer prevention job aid in the clinical policy library. ? ? Discussed with RN: Edgardo ? Please contact Azul Quinonez RN on pager [phone] or the wound care team at [phone] or pager [phone] with skin and wound care concerns or questions. Electronically Signed By: Eneida Quinonez RN Plan of Care - Enedelia Hale RN - 12/21/2019 8:02 PM EDT Problem: Patient Care Overview Goal: Plan of Care Review Outcome: Ongoing (Interventions Implemented as Appropriate) 12/21/19 1957 Coping/Psychosocial Plan Of Care Reviewed With patient Plan of Care Review Progress progress toward functional goals is gradual OUTCOME EVALUATION NOTE: OUTCOME SUMMARY: Pt. Sedated on Prop,wean down to 30. Diltiazem gtt titrated up to 15 today r/t increased HR 150/afib. Converted this evening. RASS -4. LP at bedside today, echo today, tested for lyme. Remains in PS 25%. PLAN MOVING FORWARD: MRI, wean sedation as tolerated INDIVIDUALIZED FALL PREVENTION INTERVENTIONS: Patient-specific fall risk factors per assessment: [current deficits]: Sedated, parkinsons, weak Assistance [level of assistance required for transfers and ambulation]: bedrest Supervision [direct monitoring required during toileting and ADLs]: Frequent visual checks Surveillance [continuous indirect monitoring]: Bed alarm Patient-specific fall prevention interventions for sensory deficits provided, if applicable: [X] N/A CPG GOAL OUTCOME EVALUATION: Plan of Care - Latasha Butler RN - 12/21/2019 8:09 AM EDT Problem: Patient Care Overview Goal: Plan of Care Review Outcome: Ongoing (Interventions Implemented as Appropriate) 12/21/19 0800 Coping/Psychosocial Plan Of Care Reviewed With spouse;patient Plan of Care Review Progress progress towards functional goals is fair OUTCOME EVALUATION NOTE: OUTCOME SUMMARY: Pt received from floor, was quickly intubated for airway protection r/t somnolence. Pt remained in afib with RVR throughout the night without conversion or slowed rate; pt was given 40mg metoprolol without affect and started on a dilt drip without much change. Pt did have multiple episodes of hypotensive that Blue team was aware of and ordered fluid boluses that pt was responsive to. The team did notwant to start a pressor overnight to potentially switch to amiodarone (this instructional writer had concerns of pt's hypotension worsening without a pressor if switched to amio). Blue team had stay on dilt and titrate to 10 and ok with pt's heartrate in low 100's. Pt remained in pressure support 5/10 and had not issues with vent setting. Sedation of prop remained@50 and pt did not need any additional sedation. Pt did have an extended LP; did not produce a successful sample and plan will be for pt to go to IR in the AM for floro guided LP. updated with plan. PLAN MOVING FORWARD: IR for LP, antibiotics; continue with medical plan of care INDIVIDUALIZED FALL PREVENTION INTERVENTIONS: Patient-specific fall risk factors per assessment: [current deficits]: vented, IV lines, morris, weakness Assistance [level of assistance required for transfers and ambulation]: Full assist/bedbound Supervision [direct monitoring required during toileting and ADLs]: Hourly rounding, safety checks * Surveillance [continuous indirect monitoring]: Spencer monitoring Goal: Fall Prevention-Safe Patient Handling Outcome: Ongoing (Interventions Implemented as Appropriate) 12/20/19199912/21/19 0600 Polanco Fall Risk History of Falling 0 -- Secondary Diagnosis 15 -- Ambulatory Aids 0 -- Intravenous Therapy/Heparin/Saline Lock 20 -- Gait/Transferring 20 -- Mental Status 15 -- Score 70 -- OTHER Polanco Fall Risk High -- Restraint Interventions Safety Promotion/Fall Prevention -- safety round/check completed Positioning Body Position -- side-lying, left Activity Activity Type -- bedrest Activity Assistance Provided -- assistance, 2 people Goal: Infection Control Outcome: Ongoing (Interventions Implemented as Appropriate) 12/20/19 1708 12/20/191999 Safety Interventions Isolation Precautions -- standard precautions maintained Infection Prevention environmental surveillance performed;rest/sleep promoted;single patient room provided -- Initial Assessments - Griselda Burrell RN - 12/21/2019 7:49 AM EDT Office of Care Management Initial Assessment Griselda Burrell RN reviewed record and discussed patient with Care Team. Patient prefers to be called Marcell. Source of Information: patient is intubated and mechanically ventilated VM left for spouse Gwen Su (Candy) Chart review; [place] [place] RN/[facility] Introduced self/reviewed role; services accepted. Reason for Hospitalization: 12/21/2019 Accepted as transfer from [facility] on 12/20/2019 for further management of altered mental status. COVID19 NEG 12/19/2019 No past medical history on file. Hospitalizations Within the Past 30 Days: admitted to [facility] four days prior to transfer [place] [facility] [place] Anticipated Length Of Stay (If known): TBD Current Decision-Making Capacity: unable; intubated and mechanically ventilated Advance Care Planning: Code Status: Full Code No [place] Advance Directive on file in eD or at [facility]/PCP's clinic. If AD's have not been completed spouse Gwen Su (Candi) would be surrogate decision maker per [place] surrogate decision making law. Any patient receiving care at [facility] must abide by [place] law. The hierarchy for surrogate decision making [...] (i) The agent with financial power of body masker or a conservator appointed in accordance with RSA 464-A. (j) The guardian of the patient???s estate. Has not been interested in completing a AD document in the past. Current Coping/Education/Information Needs: clinical updates have been provided to the patient priorto his intubation and to his spouse by the [facility] team. The patient and his family were given the opportunity to have their questions and concerns addressed. Testing results still pending at this time (LP, MRI Brain; TTE for CV eval). Patient appears to have had increasing fatigue prior to admission; noticed by spouse who had been working remotely in light of COVID19 restrictions. Current Functional Ability: intubated and mechanically ventilated; care dependent. Soft restraint for safety in setting of ETT and [place] sump tubes. LP to be performed by IR 12/21/2019 Functional Status Prior to Admission: modified independence in home community. Advanced Parkinson's Disease; s/p Deep Brain Stimulator admitted to [facility] ? 12/18/2019 for worsening hallucinations and encephalopathy, worsening tremor, fevers and new onset afib w/RVR Home Environment: single family residence in [place], [place]; 3 steps to enter then one main level lives with spouse Home environment/living spaces needs further assessment. Social & Family Supports/Community Resources: family; aware of community resources [employer] disability 2010; SS (worked in [employer]) Behavioral Health History: anxiety and depression Chart review mentions question of intentional Sinemet OD in the past. Substance Use/Abuse: no mention of current tobacco, alcohol, or illicit drug use. Other Pertinent/Service Specific Information: may benefit from Palliative Medicine Consultation for serious illness discussion Health/Prescription Coverage: Primary Insurance: MEDICARE Secondary Insurance: [employer] Prescription Coverage: yes Preferred Pharmacy: [facility]in [facility]ment [facility] in [place], [place] Other: TBD Disability halfway 2010; Social security Primary Care Provider: Griselda Stanley MD [phone] Patient/Caregiver Goals of Treatment: to be discussed with patient once he is extubated; ? Rehab v Home w/[facility] Potential Needs for Transition of Care: Rehab/SNF: to be determined Home Health: to be determined DME: to be assessed; has cane but unclear what other DME patient has Dialysis: not anticipated Community Resources: aware Transportation: private car v TBD Other: ? Home safety evaluation Anticipated Barriers to Discharge/Special Considerations: as above. Patient's spouse Ana Lilia Su hasbeen at home with her since COVID [id number] orders were implemented. S/he notice increased fatigue; unclear once Ana Lilia returns to work if Marcell will be safe at home. Assessment: Marcell Su is a 64 yo male who was accepted as transfer from [facility] for escalation of care in setting of altered mental status and ongoing fevers with concern for infection. PMH noted for advanced Parkinson's disease, s/p deep brain stimulator which is programmed at maximum settings. Possible Infectious Disease consultation 09/13 ? Meningitis. Mr. Su has supportive family. 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 Receives SS. Waiting for call-back from spouse Ana Lilia Su for additional details. Would benefit from PT/OT referrals when able to participate with therapy. Has adequate insurance coverage so could potentially participate in inpatient rehab. Plan: Continue IA with spouse/patient when extubated Other needs TBD pending IA completion. A member of the Care Management team will continue to monitor progress, follow for continuity of care and assist with transition of care planning. Griselda Burrell RN Pager: [phone] Consult Note - Eloisa Pearl, [facility] - 12/20/2019 8:21 PM EDT Clinical Pharmacist Note-Vanc Timbo Su [id number] 1955 Timbo Su is a 64 y.o. male is being monitored due to antibiotic therapy which includes intravenous vancomycin. Targeted Goal Range: 15 - 20 mcg/mL Pharmacokinetic information: Wt Readings from Last 1 Encounters: 12/20/19 103 kg (227 lb 1.2 oz) Ht Readings from Last 1 Encounters: 06/11/19 180.3 cm (5' 11) Labs: Vancomycin: No results found for: VANCOTR Creatinine clearance: Creatinine (mg/dL) Date Value 12/20/2019 0.90 Recommendations: Dosing recommendations: ?? Based on this information a dose of 1750 mg every 12 hours, to start now should achieve an estimated trough level of 15 - 20 mcg/mL. Monitoring recommendations: ?? A new steady state level should be achieved after 4 half-lives. I suggest rechecking a vancomycintrough level (30 minutes prior to a scheduled dose) at 0830 (time) on 12/22/19. We will continue to monitor the patient as long as he remains on vancomycin therapy. Please watch SCr, BUN and fluid status closely. Please page the care area pharmacist with any questions you may have. Alternately, during off-hours you may call [phone] to contact a pharmacist. Eloisa Pearl RPH Consult Note - Irene Perales MD - 12/20/2019 7:35 PM EDT Neurology Consultation Note - 12/20/2019 Patient name: Timbo Su Date of : 1955 PCP: Griselda Stanley MD Primary Team #:MICU CC: ? NMS HPI: History is limited at the time of writing of this note please see primary team H&P for more details: Briefly is a 64-year-old male with history of advanced Parkinson's disease (s/p DBS and follows withDr. Vishnu Hooper in neurology clinic), DM, HTN, HLD, neuropathy who was transferred from [facility] for further evaluation of worsening mental status in the setting of fevers of unknown origin. He presented to [facility] with 4 days of altered mental status, fevers, malaise, worsening tremors. Thought to be a urinary tract infection. There he was treated with vancomycin and Zosyn. Over the 24 hours prior to transfer he had worsening mental status, increasing tremors or myoclonus and was unclear if these could be rigors, tremor or seizures. At the outside hospital labs notable for WBC of 2.8, hemoglobin 9.6, BUN 14, creatinine 1.17. On arrival of patient I was consulted to the bedside to help assess patient. Work-up thus far has showed a T-max of 102.2. Labs pending at the time of this note he was not following commands for the primary team. On my assessment I did get him to open his eyes and look left and right as well as lift his arms in the air but could not follow any other commands. Current Medications: Scheduled Meds: ??? sodium chloride 0.9 % (flush) 5 mL Intravenous BID ??? magnesium sulfate 2 g Intravenous Once Continuous Infusions: PRN Meds:.sodium chloride 0.9 % (flush), lidocaine, metoprolol, potassium chloride in water OR potassium chloride in water OR potassium chloride in water Past Medical & Surgical History: No past medical history on file. Past Surgical History: Procedure Laterality Date ??? CHOLECYSTECTOMY ??? HIP SURGERY as a child ??? PRO APPLY/REMOVE CRANIAL FIX DEV Bilateral 06/10/2017 PLACEMENT-STARFIX FIDUCIALS (WRVU 4) performed by Randall Sapp MD at [facility] ? ? PRO IMP STIM, CRANIAL, SUBQ, >1 ARRAY Bilateral 06/24/2017 PLACEMENT ADD'L CRANIAL NEUROSTIMULATOR (WRVU 9.93) performed by Randall Sapp MD at [facility] ??? PRO IMPLANT NEUROELECTRDE, ADDL N/A 06/17/2017 @IMPLANTATION OF ADD'L NEUROSTIMULATOR ELECTRODE (WRVU 7.91) performed by Randall Sapp MD at [facility] ??? PRO IMPLANT NEUROELECTRODE Bilateral 06/17/2017 @IMPLANTATION OF NEUROSTIMULATOR ELECTRODE-RUBY (WRVU 33.03) performed by Randall Sapp MD at [facility] Home Medications: No current facility-administered medications on file prior to encounter. Current Outpatient Medications on File Prior to Encounter Medication Sig Dispense Refill ??? methylphenidate HCl (RITALIN) 10 mg Tablet Take 1 tablet by mouth 2 times daily. 60 tablet 0 ??? glipiZIDE (Glucotrol) 5 mg Tablet Take 5 mg by mouth 2 times daily (before meals). ??? mirabegron 25 mg Tablet Sustained Release 24 hr Take 25 mg by mouth daily. ??? entacapone (Comtan) 200 mg Tablet Take 1 tablet by mouth 3 times daily. Take with each dose of carbidopa-levodopa. Aware of previous intolerance because nausea 90 tablet 5 ??? DULoxetine (CYMBALTA) 30 mg Capsule, Delayed Release(E.C.) Take 30 mg by mouth 3 times daily. ??? hydroCHLOROthiazide (HYDRODIURIL) 25 mg Tablet Take 25 mg by mouth daily. ??? [...] mg by mouth daily as needed. ??? lisinopril (PRINIVIL;ZESTRIL) 40 mg Tablet Take 1 tablet by mouth daily. ??? simvastatin (ZOCOR) 20 mg tablet Take 20 mg by mouth nightly. ??? carbidopa-levodopa (SINEMET) 25-250 mg per tablet Take 1 tablet by mouth 4 times daily. ??? metFORMIN (GLUCOPHAGE) 500 mg tablet Take 1,000 mg by mouth 2 times daily (with meals). ??? metoprolol (LOPRESSOR) 100 mg tablet Take 100 mg by mouth 2 times daily. Allergy: Allergies Allergen Reactions ??? Comtan [Entacapone] Nausea Only Shaking, muscle weakness. Family History: No family history on file. Social History: Social History Socioeconomic History ??? Marital status: Spouse name: Not on file ??? Number of children: Not on file ??? Years of education: Not on file ??? Highest education level: Not on file Occupational History ??? Not on file Social Needs ??? Financial resource strain: Not on file ??? Food insecurity Worry: Not on file Inability: Not on file ??? Transportation needs Medical: Not on file Non-medical: Not on file Tobacco Use ??? Smoking status: Former Smoker Types: Cigarettes Last attempt to quit: 12/10/1977 Years since quittin.0 ??? Smokeless tobacco: Never Used Substance and Sexual Activity ??? Alcohol use: No ??? Drug use: No ??? Sexual activity: Not on file Comment: Deferred Lifestyle ??? Physical activity Days per week: Not on file Minutes per session: Not on file ??? Stress: Not on file Relationships ??? Social connections Talks on phone: Not on file Gets together: Not on file Attends rastafari service: Not on file Active member of club or organization: Not on file Attends meetings of clubs or organizations: Not on file Relationship status: Not on file ??? Intimate partner violence Fear of current or ex partner: Not on file Emotionally abused: Not on file Physically abused: Not on file Forced sexual activity: Not on file Other Topics Concern ??? Not on file Social History Narrative Lived in [place], moved to [place] 1980. Review of systems: Unable to assess Physical Exam: Vitals: Temp: [38.3 ??C (100.9 ??F)-39 ??C (102.2 ??F)] Heart Rate: [131-160] Resp: [26-33] BP: (110-155)/(64-92) SpO2: [93 %-98 %] Heart Rate from SpO2: [136 bpm-150 bpm] Patient is obtunded and does not respond to voice initially. He would fight eye- opening. After turning off the lights he did open his eyes to command look left to right and pupils were equal and reactive to light. When asked his name he did say his name although was very slurred and I could not understand any of the other words he was saying. He did raise his upper extremities to command. He would not follow any other commands. He had moderate to severe cogwheel rigidity of all 4 extremities worse on the left than the right but I was able to passively flex and extend his extremities and when there was less stimulation in the room and he was more relaxed his rigidity had mildly improved. He does have intermittent resting tremors of the 4 extremities. He does have myoclonic-like jerks.His reflexes are depressed but symmetric. He does not have any clonus in his ankles. Babinski sign is absent. Labs: Recent Results (from the past 24 hour(s)) POCT Glucose Result Value Ref Range POC Glucose 139 65 - 199 mg/dL Basic Metabolic Panel (non-fasting) Result Value Ref Range Glucose Lvl 150 65 - 199 mg/dL BUN 12 10 - 20 mg/dL Creatinine 0.90 0.80 - 1.50 mg/dL Sodium 136 135 - 145 mmol/L Potassium 3.6 3.5 - 5.0 mmol/L Chloride 97 (L) 98 - 107 mmol/L CO2 24 22 - 31 mmol/L Anion Gap 15 5 - 15 mmol/L Calcium 8.5 8.5 - 10.5 mg/dL eGFR 90 >=60 mL/min/1.73 m?? eGFR 104 >=60 mL/min/1.73 m?? Magnesium Result Value Ref Range Magnesium 0.57 (L) 0.69 - 1.07 mmol/L Phosphorus Result Value Ref Range Phosphorus 3.1 2.5 - 4.5 mg/dL Hepatic Function Panel Result Value Ref Range Total Protein 6.3 6.1 - 8.0 gm/dL Albumin 3.3 3.2 - 5.2 gm/dL AST 76 (H) 0 - 39 unit/L ALT 71 (H) 0 - 55 unit/L Alk Phos 100 40 - 130 unit/L Total Bilirubin 1.3 0.2 - 1.3 mg/dL Bili, Direct 0.7 (H) 0.0 - 0.3 mg/dL Prothrombin Time Result Value Ref Range PT 14.7 (H) 9.4 - 12.5 sec INR 1.3 APTT Result Value Ref Range PTT 32 25 - 37 sec Hemogram Result Value Ref Range WBC 2.9 (L) 4.0 - 9.5 x10(3)/mcL RBC 3.39 (L) 4.58 - 5.54 x10(6)/mcL Hemoglobin 10.2 (L) 13.7 - 16.5 gm/dL Hematocrit 29.5 (L) 40.5 - 48.5 % MCV 87.0 82.9 - 93.1 fL MCH 30.1 27.5 - 32.1 pg MCHC 34.6 32.0 - 35.7 gm/dL Platelets 108 (L) 145 - 357 x10(3)/mcL RDWSD 43.6 36.0 - 45.0 fL RDWCV 13.6 11.4 - 13.8 % MPV 10.9 7.6 - 12.9 fL nRBC % Auto 0.0 % nRBC Abs Auto 0.000 0.000 - 0.000 x10(3)/mcL Differential, Automated Result Value Ref Range Neutrophils % 51.1 % Neutr Abs (ANC) 1.50 (L) 1.70 - 6.10 x10(3)/mcL Lymphocytes % 33.3 % Lymphocytes Abs 1.0 0.9 - 3.2 x10(3)/mcL Monocytes % 13.9 % Monocyte Abs 0.4 0.3 - 0.9 x10(3)/mcL Eosinophils % 0.7 % Eosinophils Abs 0.0 0.0 - 0.4 x10(3)/mcL Basophils % 0.3 % Basophils Abs 0.0 0.0 - 0.1 x10(3)/mcL Immature Gran % 0.70 % Anneliese Gran Abs 0.02 0.00 - 0.04 x10(3)/mcL CK Result Value Ref Range CK, Total 447 (H) 0 - 200 unit/L Scan, Peripheral Blood Result Value Ref Range Plat Estimate Decreased RBC Morphology Abnormal Polychromasia Present >5/HPF Blood Gas Venous Result Value Ref Range pH Manny 7.43 (H) 7.32 - 7.42 pCO2 Manny 40 (L) 41 - 51 mmHg pO2 Manny 21 (L) 25 - 40 mmHg HCO3 Manny 25.8 mmol/L BE Manny 1.5 mmol/L Hgb Blood Gas 11.0 (L) 13.7 - 16.5 gm/dL O2HB Manny 34.6 % COHB Manny 1.0 % METHB Manny 0.3 <=1.5 % Na Whole Blood 136 135 - 145 mmol/L K Whole Blood 3.8 3.5 - 5.0 mmol/L ICa Whole Blood 1.09 (L) 1.15 - 1.33 mmol/L CL Whole Blood 102 98 - 107 mmol/L Gluc Whole Bld 151 65 - 199 mg/dL Lactate WB 1.5 0.5 - 2.2 mmol/L BGas Source Venous POCT Glucose Result Value Ref Range POC Glucose 165 65 - 199 mg/dL Diagnostic Tests and Imaging: Repeat CT head pending Assessment and Plan: Briefly is a 64-year-old male with history of advanced Parkinson's disease (s/p DBS and follows withDr. Vishnu Hooper in neurology clinic), DM, HTN, HLD, neuropathy who was transferred from [facility] for further evaluation of worsening mental status in the setting of fevers of unknown origin. Here the patient continues to be febrile. He is extremely lethargic but intermittently will respond to verbal stimuli. He is rigid but does not have hyperreflexia. His CK is mildly elevated. There is no clear history of antipsychotics or medications that may have triggered a NMS picture. Unclear how many doses of Sinemet he missed but on discussion with the she gets 90% of the medication into him. Sinemet withdrawal can certainly cause an NMS-like picture and may be contributing to his clinicalpresentation but the most pressing matter would be to rule out bacterial/viral meningitis and resumehis Sinemet when possible. # Recommendations - Empiric coverage for bacterial and viral meningitis - resume home sinemet when enteral access is gained -Lumbar puncture: Cell count, glucose, protein, HSV, VZV, cryptococcal antigen body fluid hold - Repeat CT head when hemodynamically stable given the amount of artifact on his CT head at outside hospital - Routine EEG (unless he will be sedated overnight) ?X Consult service will continue to follow patient. Recommendations are above, please page if further consultation required. ?? Irene Perales MD Neurology Resident PGY3 Neurology # [id number] 12/20/2019 Associated attestation - Catie Cardoso MD - 12/21/2019 10:23 AM EDT I saw and evaluated the patient with the resident. I have reviewed the medical records and the patient's history during the visit and I agree with the details as written. My physical examination confirms the findings. The assessment and plan were formulated in discussion with me at the time of the visit and I agree with them as documented. Catie Cardoso MD documented in this encounter Plan of Treatment Upcoming Encounters Date Type Specialty Care Team Description 03/20/2022 Office Visit Neurology Vishnu Hooper MD [facility] [place], [place] [address] (Wo rk) documented as of this encounter Procedures Procedure Name Priority Date/Time Associated Comments Diagnosis POCT GLUCOSE Routine 12/30/2019 8:13 Results for this AM EDT procedure are i n the results section. POCT GLUCOSE Routine 12/30/2019 4:35 Results for this AM EDT procedure are i n the results section. POCT GLUCOSE Routine 12/30/2019 2:24 Results for this AM EDT procedure are i n the results section. POCT GLUCOSE Routine 12/29/2019 11:47 Results for this PM EDT procedure are i n the results section. POCT GLUCOSE Routine 12/29/2019 7:41 Results for this PM EDT procedure are i n the results section. POCT GLUCOSE Routine 12/29/2019 3:34 Results for this PM EDT procedure are i n the results section. POCT GLUCOSE Routine 12/29/2019 11:29 Results for this AM EDT procedure are i n the results section. HC LIPASE Routine 12/29/2019 9:34 Results for this AM EDT procedure are i n the results section. HC VENIPUNCTURE Routine 12/29/2019 9:34 Results f or this AM EDT procedure are i n the results section. POCT GLUCOSE Routine 12/29/2019 7:58 Results for this AM EDT procedure are i n the results section. POCT GLUCOSE Routine 12/29/2019 3:34 Results for this AM EDT procedure are i n the results section. POCT GLUCOSE Routine 12/28/2019 11:26 Results for this PM EDT procedure are i n the results section. POCT GLUCOSE Routine 12/28/2019 8:08 Results for this PM EDT procedure are i n the results section. POCT GLUCOSE Routine 12/28/2019 4:16 Results for this PM EDT procedure are i n the results section. XR FLUORO BARIUM Routine 12/28/2019 1:52 Results for this SWALLOW (MODIFIED/VIDEO PM EDT proc edure are in SWALLOW PHARYNX) the results section. POCT GLUCOSE Routine 12/28/2019 12:07 Results for this PM EDT procedure are i n the results section. POCT GLUCOSE Routine 12/28/2019 8:08 Results for this AM EDT procedure are i n the results section. POCT GLUCOSE Routine 12/28/2019 3:45 Results for this AM EDT procedure are i n the results section. POCT GLUCOSE Routine 12/27/2019 11:29 Results for this PM EDT procedure are i n the results section. POCT GLUCOSE Routine 12/27/2019 8:05 Results for this PM EDT procedure are i n the results section. POCT GLUCOSE Routine 12/27/2019 3:46 Results for this PM EDT procedure are i n the results section. HC SARS-COV-2 Routine 12/27/2019 2:19 Results for this (COVID-19) (MOLECULAR PM EDT proced ure are in PATHOLOGY) the results section. POCT GLUCOSE Routine 12/27/2019 11:31 Results for this AM EDT procedure are i n the results section. EKG 12-LEAD Routine 12/27/2019 9:49 Atrial Results for this AM EDT fibrillation, procedure are in unspecified type the results section. POCT GLUCOSE Routine 12/27/2019 7:24 Results for this AM EDT procedure are i n the results section. POCT GLUCOSE Routine 12/27/2019 3:56 Results for this AM EDT procedure are i n the results section. SCAN, PERIPHERAL BLOOD Routine 12/27/2019 3:53 Re sults for this AM EDT procedure are i n the results section. HEMOGRAM Routine 12/27/2019 3:53 Results for this AM EDT procedure are i n the results section. DIFFERENTIAL, AUTOMATED Routine 12/27/2019 3:53 R esults for this AM EDT procedure are i n the results section. GREEN TUBE HOLD Routine 12/27/2019 3:53 Results f or this AM EDT procedure are i n the results section. HC VENIPUNCTURE Routine 12/27/2019 3:53 AM EDT PHOSPHORUS Routine 12/27/2019 3:53 Results for this AM EDT procedure are i n the results section. MAGNESIUM Routine 12/27/2019 3:53 Results for this AM EDT procedure are i n the results section. BASIC METABOLIC PANEL Routine 12/27/2019 3:53 Res ults for this (NON-FASTING) AM EDT procedure are in the results section. EKG 12-LEAD STAT 12/27/2019 1:41 Atrial Results for this AM EDT fibrillation, procedure are in unspecified type the results section. POCT GLUCOSE Routine 12/26/2019 11:57 Results for this PM EDT procedure are i n the results section. POCT GLUCOSE Routine 12/26/2019 7:54 Results for this PM EDT procedure are i n the results section. POCT GLUCOSE Routine 12/26/2019 4:36 Results for this PM EDT procedure are i n the results section. POCT GLUCOSE Routine 12/26/2019 12:23 Results for this PM EDT procedure are i n the results section. POCT GLUCOSE Routine 12/26/2019 8:12 Results for this AM EDT procedure are i n the results section. POCT GLUCOSE Routine 12/26/2019 3:46 Results for this AM EDT procedure are i n the results section. SCAN, PERIPHERAL BLOOD Routine 12/26/2019 3:46 Re sults for this AM EDT procedure are i n the results section. HEMOGRAM Routine 12/26/2019 3:46 Results for this AM EDT procedure are i n the results section. DIFFERENTIAL, AUTOMATED Routine 12/26/2019 3:46 R esults for this AM EDT procedure are i n the results section. HC VENIPUNCTURE Routine 12/26/2019 3:46 AM EDT HC PHOSPHORUS, SERUM Routine 12/26/2019 3:46 Resu lts for this AM EDT procedure are i n the results section. HC MAGNESIUM, SERUM Routine 12/26/2019 3:46 Resul ts for this AM EDT procedure are i n the results section. HEPATIC FUNCTION PANEL Routine 12/26/2019 3:46 Re sults for this AM EDT procedure are i n the results section. BASIC METABOLIC PANEL Routine 12/26/2019 3:46 Res ults for this (NON-FASTING) AM EDT procedure are in the results section. POCT GLUCOSE Routine 12/26/2019 12:13 Results for this AM EDT procedure are i n the results section. POCT GLUCOSE Routine 12/25/2019 8:50 Results for this PM EDT procedure are i n the results section. POCT GLUCOSE Routine 12/25/2019 4:17 Results for this PM EDT procedure are i n the results section. POCT GLUCOSE Routine 12/25/2019 12:17 Results for this PM EDT procedure are i n the results section. POCT GLUCOSE Routine 12/25/2019 7:44 Results for this AM EDT procedure are i n the results section. POCT GLUCOSE Routine 12/25/2019 4:18 Results for this AM EDT procedure are i n the results section. SCAN, PERIPHERAL BLOOD Routine 12/25/2019 1:16 Re sults for this AM EDT procedure are i n the results section. HEMOGRAM Routine 12/25/2019 1:16 Results for this AM EDT procedure are i n the results section. DIFFERENTIAL, AUTOMATED Routine 12/25/2019 1:16 R esults for this AM EDT procedure are i n the results section. HC CBC,PLT & AUTO DIFF Routine 12/25/2019 1:16 AM EDT HC PHOSPHORUS, SERUM Routine 12/25/2019 1:16 Resu lts for this AM EDT procedure are i n the results section. HC MAGNESIUM, SERUM Routine 12/25/2019 1:16 Resul ts for this AM EDT procedure are i n the results section. BASIC METABOLIC PANEL Routine 12/25/2019 1:16 Res ults for this (NON-FASTING) AM EDT procedure are in the results section. POCT GLUCOSE Routine 12/25/2019 1:15 Results for this AM EDT procedure are i n the results section. POCT GLUCOSE Routine 12/24/2019 8:46 Results for this PM EDT procedure are i n the results section. XR ABDOMEN 1 VIEW STAT 12/24/2019 5:16 Results for this PM EDT procedure are i n the results section. HC BLOOD CULTURE- Routine 12/24/2019 5:00 Results for this PM EDT procedure are i n the results section. HC C-REACTIVE PROTEIN Routine 12/24/2019 4:55 Res ults for this PM EDT procedure are i n the results section. PERIPHERAL SMEAR REVIEW Routine 12/24/2019 4:55 R esults for this PM EDT procedure are i n the results section. HC IGG, SERUM Routine 12/24/2019 4:55 Results for this PM EDT procedure are i n the results section. SMEAR REVIEW REPORT Routine 12/24/2019 4:55 Resul ts for this PM EDT procedure are i n the results section. IMMUNOFIXATION Routine 12/24/2019 4:55 Results fo r this ELECTROPHORESIS PM EDT procedure ar e in the results section. SCAN, PERIPHERAL BLOOD Routine 12/24/2019 4:55 Re sults for this PM EDT procedure are i n the results section. HEMOGRAM Routine 12/24/2019 4:55 Results for this PM EDT procedure are i n the results section. DIFFERENTIAL, AUTOMATED Routine 12/24/2019 4:55 R esults for this PM EDT procedure are i n the results section. HC HIV SCREEN, 4TH Routine 12/24/2019 4:55 Result s for this GENERATION PM EDT procedure are i n the results section. HC ESR-SEDIMENTATION Routine 12/24/2019 4:55 Resu lts for this RATE, BLOOD PM EDT procedure are i n the results section. HC SERUM PROT. Routine 12/24/2019 4:55 Results fo r this ELECTROPHORESIS PM EDT procedure ar e in the results section. HC LACTIC DEHYDROGENASE Routine 12/24/2019 4:55 R esults for this PM EDT procedure are i n the results section. POCT GLUCOSE Routine 12/24/2019 3:35 Results for this PM EDT procedure are i n the results section. EXTUBATE Routine 12/24/2019 12:55 PM EDT POCT GLUCOSE Routine 12/24/2019 12:02 Results for this PM EDT procedure are i n the results section. POCT GLUCOSE Routine 12/24/2019 6:08 Results for this AM EDT procedure are i n the results section. HC POTASSIUM Routine 12/24/2019 6:08 Results for this AM EDT procedure are i n the results section. HEPATIC FUNCTION PANEL Routine 12/24/2019 6:08 Re sults for this AM EDT procedure are i n the results section. SCAN, PERIPHERAL BLOOD Routine 12/24/2019 12:38 R esults for this AM EDT procedure are i n the results section. HEMOGRAM Routine 12/24/2019 12:38 Results for this AM EDT procedure are i n the results section. DIFFERENTIAL, AUTOMATED Routine 12/24/2019 12:38 Results for this AM EDT procedure are i n the results section. HC CBC,PLT & AUTO DIFF Routine 12/24/2019 12:38 AM EDT HC PHOSPHORUS, SERUM Routine 12/24/2019 12:38 Res ults for this AM EDT procedure are i n the results section. HC MAGNESIUM, SERUM Routine 12/24/2019 12:38 Resu lts for this AM EDT procedure are i n the results section. BASIC METABOLIC PANEL Routine 12/24/2019 12:38 Re sults for this (NON-FASTING) AM EDT procedure are in the results section. POCT GLUCOSE Routine 12/24/2019 12:13 Results for this AM EDT procedure are i n the results section. POCT GLUCOSE Routine 12/23/2019 6:01 Results for this PM EDT procedure are i n the results section. HC POTASSIUM Routine 12/23/2019 5:00 Results for this PM EDT procedure are i n the results section. ENTEROVIRUS PCR, CSF Routine 12/23/2019 12:47 Res ults for this PM EDT procedure are i n the results section. POCT GLUCOSE Routine 12/23/2019 12:19 Results for this PM EDT procedure are i n the results section. POCT GLUCOSE Routine 12/23/2019 9:17 Results for this AM EDT procedure are i n the results section. POCT GLUCOSE Routine 12/23/2019 9:16 Results for this AM EDT procedure are i n the results section. EKG 12-LEAD STAT 12/23/2019 3:09 Tachycardia Results for this AM EDT procedure are i n the results section. HC POTASSIUM Routine 12/23/2019 1:17 Results for this AM EDT procedure are i n the results section. SCAN, PERIPHERAL BLOOD Routine 12/23/2019 12:20 R esults for this AM EDT procedure are i n the results section. HEMOGRAM Routine 12/23/2019 12:20 Results for this AM EDT procedure are i n the results section. DIFFERENTIAL, AUTOMATED Routine 12/23/2019 12:20 Results for this AM EDT procedure are i n the results section. HC CBC,PLT & AUTO DIFF Routine 12/23/2019 12:20 AM EDT HC PHOSPHORUS, SERUM Routine 12/23/2019 12:20 Res ults for this AM EDT procedure are i n the results section. HC MAGNESIUM, SERUM Routine 12/23/2019 12:20 Resu lts for this AM EDT procedure are i n the results section. BASIC METABOLIC PANEL Routine 12/23/2019 12:20 Re sults for this (NON-FASTING) AM EDT procedure are in the results section. POCT GLUCOSE Routine 12/22/2019 11:52 Results for this PM EDT procedure are i n the results section. POCT GLUCOSE Routine 12/22/2019 7:42 Results for this PM EDT procedure are i n the results section. POCT GLUCOSE Routine 12/22/2019 4:23 Results for this PM EDT procedure are i n the results section. HC LYME DISEASE, KAYLEE STAT 12/22/2019 12:30 R esults for this PM EDT procedure are i n the results section. POCT GLUCOSE Routine 12/22/2019 11:29 Results for this AM EDT procedure are i n the results section. POCT GLUCOSE Routine 12/22/2019 7:48 Results for this AM EDT procedure are i n the results section. SCAN, PERIPHERAL BLOOD Routine 12/22/2019 1:15 Re sults for this AM EDT procedure are i n the results section. HEMOGRAM Routine 12/22/2019 1:15 Results for this AM EDT procedure are i n the results section. DIFFERENTIAL, AUTOMATED Routine 12/22/2019 1:15 R esults for this AM EDT procedure are i n the results section. HC CBC,PLT & AUTO DIFF Routine 12/22/2019 1:15 AM EDT TRIGLYCERIDE Routine 12/22/2019 1:15 Results for this AM EDT procedure are i n the results section. HC PHOSPHORUS, SERUM Routine 12/22/2019 1:15 Resu lts for this AM EDT procedure are i n the results section. HC MAGNESIUM, SERUM Routine 12/22/2019 1:15 Resul ts for this AM EDT procedure are i n the results section. CK Routine 12/22/2019 1:15 Results for this AM EDT procedure are i n the results section. BASIC METABOLIC PANEL Routine 12/22/2019 1:15 Res ults for this (NON-FASTING) AM EDT procedure are in the results section. NON-BED OPERATOR FINAL REPORT Routine 12/21/2019 2:40 Resu lts for this PM EDT procedure are i n the results section. CSF CELL COUNT Routine 12/21/2019 2:40 Results fo r this PM EDT procedure are i n the results section. CSF DESC 4 Routine 12/21/2019 2:40 Results for this PM EDT procedure are i n the results section. CSF DESC 3 Routine 12/21/2019 2:40 Results for this PM EDT procedure are i n the results section. CSF DESC 2 Routine 12/21/2019 2:40 Results for this PM EDT procedure are i n the results section. CSF DESC 1 Routine 12/21/2019 2:40 Results for this PM EDT procedure are i n the results section. HC HERPES SIMPLEX VIRUS Routine 12/21/2019 2:32 R esults for this 08/13 BY PCR PM EDT procedure are i n the results section. BODY FLUID HOLD Routine 12/21/2019 2:32 Results f or this PM EDT procedure are i n the results section. HC PCH VARICELLA ZOSTER Routine 12/21/2019 2:32 R esults for this PCR PM EDT procedure are i n the results section. EBV PCR QUALITATIVE, Routine 12/21/2019 2:32 Resu lts for this CSF PM EDT procedure are i n the results section. HC CRYPTOCOCCAL ANTIGEN Routine 12/21/2019 2:32 R esults for this PM EDT procedure are i n the results section. HC GRAM STAIN FOR Routine 12/21/2019 2:32 Results for this BACTERIA PM EDT procedure are i n the results section. HC FUNGUS CULTURE, MISC Routine 12/21/2019 2:32 R esults for this SOURCE PM EDT procedure are i n the results section. HC PROTEIN, CSF Routine 12/21/2019 2:32 Results f or this PM EDT procedure are i n the results section. HC GLUCOSE, CSF Routine 12/21/2019 2:32 Results f or this PM EDT procedure are i n the results section. ECHOCARDIOGRAM COMPLETE Routine 12/21/2019 2:26 Atrial R esults for this PM EDT fibrillation, procedure are in unspecified type the results section. CYTOPATHOLOGY Routine 12/21/2019 2:22 Results for this NON-GYNECOLOGICAL PM EDT procedure are in the results section. HC TICK BORNE DISEASE, Routine 12/21/2019 1:40 Re sults for this PCR PM EDT procedure are i n the results section. POCT GLUCOSE Routine 12/21/2019 11:45 Results for this AM EDT procedure are i n the results section. EKG 12-LEAD STAT 12/21/2019 7:37 Tachycardia Results for this AM EDT procedure are i n the results section. CT HEAD WO CONTRAST Routine 12/21/2019 4:55 Resul ts for this (GENERIC) AM EDT procedure are i n the results section. HC IRON BINDING Routine 12/21/2019 3:15 Results f or this CAPACITY AM EDT procedure are i n the results section. HC FERRITIN, SERUM Routine 12/21/2019 3:15 Result s for this AM EDT procedure are i n the results section. ELECTROLYTES PANEL Routine 12/21/2019 3:15 Result s for this AM EDT procedure are i n the results section. XR ABDOMEN 1 VIEW STAT 12/21/2019 12:19 Result s for this AM EDT procedure are i n the results section. XR CHEST ONE VIEW STAT 12/21/2019 12:19 Result s for this AM EDT procedure are i n the results section. BLOOD GAS 2 ARTERIAL Routine 12/21/2019 12:09 Res ults for this AM EDT procedure are i n the results section. SCAN, PERIPHERAL BLOOD Routine 12/21/2019 12:00 R esults for this AM EDT procedure are i n the results section. HEMOGRAM Routine 12/21/2019 12:00 Results for this AM EDT procedure are i n the results section. DIFFERENTIAL, AUTOMATED Routine 12/21/2019 12:00 Results for this AM EDT procedure are i n the results section. HC CBC,PLT & AUTO DIFF Routine 12/21/2019 12:00 AM EDT HC PHOSPHORUS, SERUM Routine 12/21/2019 12:00 Res ults for this AM EDT procedure are i n the results section. HC MAGNESIUM, SERUM Routine 12/21/2019 12:00 Resu lts for this AM EDT procedure are i n the results section. HC CREATINE STAT 12/21/2019 12:00 Results for this PHOSPHOKINASE, SERUM AM EDT procedu re are in the results section. HEPATIC FUNCTION PANEL Routine 12/21/2019 12:00 R esults for this AM EDT procedure are i n the results section. BASIC METABOLIC PANEL Routine 12/21/2019 12:00 Re sults for this (NON-FASTING) AM EDT procedure are in the results section. LUMBAR PUNCTURE Routine 12/20/2019 11:50 Results for this PM EDT procedure are i n the results section. EKG 12-LEAD STAT 12/20/2019 7:23 Tachycardia Results for this PM EDT procedure are i n the results section. POCT GLUCOSE Routine 12/20/2019 7:00 Results for this PM EDT procedure are i n the results section. URINALYSIS MICROSCOPIC Routine 12/20/2019 6:29 Re sults for this EXAM PM EDT procedure are i n the results section. URINALYSIS WITH REFLEX Routine 12/20/2019 6:29 Re sults for this CULTURE PM EDT procedure are i n the results section. HC BLOOD CULTURE- STAT 12/20/2019 6:20 Results for this PM EDT procedure are i n the results section. HC BLOOD CULTURE- STAT 12/20/2019 6:00 Results for this PM EDT procedure are i n the results section. BLOOD GAS VENOUS ([facility]) Routine 12/20/2019 5:59 Re sults for this PM EDT procedure are i n the results section. SCAN, PERIPHERAL BLOOD Routine 12/20/2019 5:25 Re sults for this PM EDT procedure are i n the results section. HEMOGRAM Routine 12/20/2019 5:25 Results for this PM EDT procedure are i n the results section. DIFFERENTIAL, AUTOMATED Routine 12/20/2019 5:25 R esults for this PM EDT procedure are i n the results section. HC PARTIAL Routine 12/20/2019 5:25 Results for this THROMBOPLASTIN TIME PM EDT procedur e are in the results section. HC PROTHROMBIN TIME Routine 12/20/2019 5:25 Resul ts for this PM EDT procedure are i n the results section. HC CBC,PLT & AUTO DIFF Routine 12/20/2019 5:25 PM EDT HC PHOSPHORUS, SERUM Routine 12/20/2019 5:25 Resu lts for this PM EDT procedure are i n the results section. HC MAGNESIUM, SERUM Routine 12/20/2019 5:25 Resul ts for this PM EDT procedure are i n the results section. CK Routine 12/20/2019 5:25 Results for this PM EDT procedure are i n the results section. HEPATIC FUNCTION PANEL Routine 12/20/2019 5:25 Re sults for this PM EDT procedure are i n the results section. BASIC METABOLIC PANEL Routine 12/20/2019 5:25 Res ults for this (NON-FASTING) PM EDT procedure are in the results section. POCT GLUCOSE Routine 12/20/2019 5:09 Results for this PM EDT procedure are i n the results section. documented in this encounter Results POCT Glucose (12/30/2019 8:13 AM EDT) athologist Signature POC Glucose 141 65 - 199 [facility] Comment: Supplemental ranges: <140 mg/dL before meals <180 mg/dL all other times of the day Specimen Anatomical Collection Method Collection Time Receive d Time (Source) Location / / Volume Laterality Blood specimen 12/30/2019 8:13 AM 020 8:13 (specimen) EDT AM EDT Magali Lopez MD POINT OF CARE TEST ORDERABLE S Performing Organization Address City/[facility]/[place] [address] POCT Glucose (12/30/2019 4:35 AM EDT) athologist Signature POC Glucose 171 65 - 199 [facility] Comment: Supplemental ranges: <140 mg/dL before meals <180 mg/dL all other times of the day Specimen Anatomical Collection Method Collection Time Receive d Time (Source) Location / / Volume Laterality Blood specimen 12/30/2019 4:35 AM 020 4:35 (specimen) EDT AM EDT Magali Lopez MD POINT OF CARE TEST ORDERABLE S Performing Organization Address City/State/ZIP Code Phon e Number [address] POCT Glucose (12/30/2019 2:24 AM EDT) athologist Signature POC Glucose 158 65 - 199 [place] mg/dL [facility] Comment: Supplemental ranges: <140 mg/dL before meals <180 mg/dL all other times of the day Specimen Anatomical Collection Method Collection Time Receive d Time (Source) Location / / Volume Laterality Blood specimen 12/30/2019 2:24 AM 020 2:24 (specimen) EDT AM EDT Magali Lopez MD POINT OF CARE TEST ORDERABLE S Performing Organization Address City/State/ZIP Code Phon e Number [address] POCT Glucose (12/29/2019 11:47 PM EDT) athologist Signature POC Glucose 182 65 - [address] [facility] mg/dL [facility] Comment: Supplemental ranges: <140 mg/dL before meals <180 mg/dL all other times of the day Specimen Anatomical Collection Method Collection Time Receive d Time (Source) Location / / Volume Laterality Blood specimen 12/29/2019 11:47 0 (specimen) PM EDT 11:47 PM EDT Magali Lopez MD POINT OF CARE TEST ORDERABLE S Performing Organization Address City/State/ZIP Code Phon e Number [address] POCT Glucose (12/29/2019 7:41 PM EDT) athologist Signature POC Glucose 197 65 - 199 [place] mg/dL [facility] Comment: Supplemental ranges: <140 mg/dL before meals <180 mg/dL all other times of the day Specimen Anatomical Collection Method Collection Time Receive d Time (Source) Location / / Volume Laterality Blood specimen 12/29/2019 7:41 PM 020 7:41 (specimen) EDT PM EDT Magali Lopez MD POINT OF CARE TEST ORDERABLE S Performing Organization Address City/State/ZIP Code Phon e Number [address] POCT Glucose (12/29/2019 3:34 PM EDT) athologist Signature POC Glucose 160 65 - 199 [facility] mg/dL [facility] Comment: Supplemental ranges: <140 mg/dL before meals <180 mg/dL all other times of the day Specimen Anatomical Collection Method Collection Time Receive d Time (Source) Location / / Volume Laterality Blood specimen 12/29/2019 3:34 PM 020 3:34 (specimen) EDT PM EDT Magali Lopez MD POINT OF CARE TEST ORDERABLE S Performing Organization Address City/[facility]/ZIP [facility] [place] [address] (ABNORMAL) POCT Glucose (12/29/2019 11:29 AM EDT) athologist Signature POC Glucose 226 (H) 65 - 199 [facility] mg/dL [facility] Comment: Supplemental ranges: <140 mg/dL before meals <180 mg/dL all other times of the day Specimen Anatomical Collection Method Collection Time Receive d Time (Source) Location / / Volume Laterality Blood specimen 12/29/2019 11:29 0 (specimen) AM EDT 11:29 AM EDT Magali Lopez MD POINT OF CARE TEST ORDERABLE S Performing Organization Address City/[facility]/[place] [address] (ABNORMAL) Lipase (12/29/2019 9:34 AM EDT) athologist Signature Lipase 76 (H) 0 - 60 [facility] unit/L [facility] Specimen Anatomical Collection Method Collection Time Receive d Time (Source) Location / / Volume Laterality Blood specimen 12/29/2019 9:34 AM 020 9:44 (specimen) EDT AM EDT Resulting Agency Comment Spec In Lab Magali Lopez MD CHEMISTRY ORDERABLES Performing Organization Address City/[facility]/ZIP [facility] [place] [address] (ABNORMAL) Comprehensive metabolic panel (non-fasting) (12/29/2019 9:34 AM EDT) P athologist Signature Glucose Lvl 227 (H) 65 - 199 [facility] mg/dL [facility] Comment: Diabetes: >=200 mg/dL plus symp toms BUN 8 (L) 10 - 20 mg/dL [facility] Creatinine 0.75 (L) 0.80 - 1.50 mg/dL [facility] Sodium 139 135 - 145 mmol/L [facility] Potassium 3.9 3.5 - 5.0 mmol/L [facility] Comment: Please note: ??Patients with WBC >100,00 0 may have falsely elevated Potassium levels. ??For accurate Potassium quantif ication in these patients send serum separator tube (gold top) for subsequent determinations. ??Contact the Clinical Chemistry Laboratory if there are any qu estions. Chloride 104 98 - 107 mmol/L [facility] CO2 25 22 - 31 mmol/L [facility] Anion Gap 10 5 - 15 mmol/L [facility] Calcium 8.6 8.5 - 10.5 mg/dL [facility] Total Protein 6.4 6.1 - 8.0 gm/dL [facility] Albumin 3.2 3.2 - 5.2 gm/dL [facility] AST 60 (H) 0 - 39 unit/L [facility] ALT 43 0 - 55 unit/L [facility] Alk Phos 117 40 - 130 unit/L [facility] Total Bilirubin 0.6 0.2 - 1.3 mg/dL [facility] Estimated GFR 97 >=60 mL/min/1.73 m?? [facility] Comment: The eGFR was calculated using the CKD-EP I equation. As with all creatinine based estimates of kidney function, eGFR values calculated with the CKD-EPI equation are not accurate in patients wi th acute kidney failure, extremes of body mass or the acutely ill. [email or web address] eGFR 112 >=60 mL/min/1.73 m?? [facility] Comment: The eGFR was calculated using the CKD-EP I equation. As with all creatinine based estimates of kidney function, eGFR values calculated with the CKD-EPI equation are not accurate in patients wi th acute kidney failure, extremes of body mass or the acutely ill. [email or web address] Specimen Anatomical Collection Method Collection Time Receive d Time (Source) Location / / Volume Laterality Blood specimen 12/29/2019 9:34 AM 020 9:44 (specimen) EDT AM EDT Resulting Agency Comment Spec In Lab Magali Lopez MD CHEMISTRY ORDERABLES Performing Organization Address City/[facility] Phon e Number [address] POCT Glucose (12/29/2019 7:58 AM EDT) athologist Signature POC Glucose 134 65 - 199 [facility] mg/dL [facility] Comment: Supplemental ranges: <140 mg/dL before meals <180 mg/dL all other times of the day Specimen Anatomical Collection Method Collection Time Receive d Time (Source) Location / / Volume Laterality Blood specimen 12/29/2019 7:58 AM 020 7:58 (specimen) EDT AM EDT Magali Lopez MD POINT OF CARE TEST ORDERABLE S Performing Organization Address City/[facility]/ZIP Code Phon e Number [address] POCT Glucose (12/29/2019 3:34 AM EDT) athologist Signature POC Glucose 143 65 - 199 [facility] mg/dL [facility] Comment: Supplemental ranges: <140 mg/dL before meals <180 mg/dL all other times of the day Specimen Anatomical Collection Method Collection Time Receive d Time (Source) Location / / Volume Laterality Blood specimen 12/29/2019 3:34 AM 020 3:34 (specimen) EDT AM EDT Magali Lopez MD POINT OF CARE TEST ORDERABLE S Performing Organization Address City/[facility]/[place] [address] [facility] [address] POCT Glucose (12/28/2019 11:26 PM EDT) athologist Signature POC Glucose 179 65 - 199 [place] [place] mg/dL [facility] Comment: Supplemental ranges: <140 mg/dL before meals <180 mg/dL all other times of the day Specimen Anatomical Collection Method Collection Time Receive d Time (Source) Location / / Volume Laterality Blood specimen 12/28/2019 11:26 0 (specimen) PM EDT 11:26 PM EDT Magali Lopez MD POINT OF CARE TEST ORDERABLE S Performing Organization Address City/State/ZIP Code Phon e Number [place], [place] [id number] [place] [address] POCT Glucose (12/28/2019 8:08 PM EDT) athologist Signature POC Glucose 184 65 - 199 [place] [place] mg/dL [facility] Comment: Supplemental ranges: <140 mg/dL before meals <180 mg/dL all other times of the day Specimen Anatomical Collection Method Collection Time Receive d Time (Source) Location / / Volume Laterality Blood specimen 12/28/2019 8:08 PM 020 8:08 (specimen) EDT PM EDT Magali Lopez MD POINT OF CARE TEST ORDERABLE S Performing Organization Address City/State/[place] [address] [facility] [address] POCT Glucose (12/28/2019 4:16 PM EDT) athologist Signature POC Glucose 195 65 - 199 [place] mg/dL [facility] Comment: Supplemental ranges: <140 mg/dL before meals <180 mg/dL all other times of the day Specimen Anatomical Collection Method Collection Time Receive d Time (Source) Location / / Volume Laterality Blood specimen 12/28/2019 4:16 PM 020 4:16 (specimen) EDT PM EDT Magali Lopez MD POINT OF CARE TEST ORDERABLE S Performing Organization Address City/State/ZIP Code Phon e [place] [facility] [place] [address] XR Fluoro Modified Barium Swallow (12/28/2019 1:52 PM EDT) Anatomical Region Laterality Modality N/A Radio Fluoroscopy Specimen (Source) Anatomical Location Collection Method / Collectio n Time Received Time / Laterality Volume Impressions 12/28/2019 2:27 PM EDT 1. ??Delayed triggering of the swallow at the level of the piriform sinus. 2. ??Moderate pooling in the valleculae clears with subsequent swallows. 3. ??No aspiration or penetration. For further discussion please see speech pathologist's note. I have personally reviewed the image(s) and the resident's interpretation and agree with the findings, Elena magdaleno at 12/28/2019 2:27 PM Thank you for letting us participate in the care of this patient. For questions regarding this report, please contact [facility] number below. ? Electronically signed by: Elena carrasquillo [facility] ([phone]), at 12/28/2019 2:27 PM Narrative 12/28/2019 2:27 PM EDT EXAMINATION: XR FLUORO MODIFIED BARIUM SWALLOW CLINICAL HISTORY: Dysphagia, aspiration Please asses swallowing function TECHNIQUE: The examination was performed in conjunc tion with speech pathology. ??Varying consistencies of barium were administere d under lateral fluoroscopic observation. Fluoro time: 0.88 minutes COMPARISON: None FINDINGS: The oral phase of swallowing is normal. Triggering of the swallow is delayed and occurs at the level of the piriform sinu s. There is normal elevation of the larynx and normal epiglottic inversion w ith swallowing.No penetration of the airway or aspiration occurred with any c onsistency. Moderate pooling in the valleculae clear s with subsequent swallows. Procedure Note Elena Goodwin MD - 12/28/2019Form atting of this note might be different from the original. EXAMINATION: XR FLUORO MODIFIED BARIUM S WALL CLINICAL HISTORY: Dysphagia, aspiration Please asses swallowing function TECHNIQUE: The examination was performed in conjunc tion with speech pathology. Varying consistencies of barium were administere d under lateral fluoroscopic observation. Fluoro time: 0.88 minutes COMPARISON: None FINDINGS: The oral phase of swallowing is normal. Triggering of the swallow is delayed and occurs at the level of the piriform sinu s. There is normal elevation of the larynx and normal epiglottic inversion w ith swallowing.No penetration of the airway or aspiration occurred with any c onsistency. Moderate pooling in the valleculae clear s with subsequent swallows. IMPRESSION 1. Delayed triggering of the swallow at the level of the piriform sinus. 2. Moderate pooling in the valleculae cl ears with subsequent swallows. 3. No aspiration or penetration. For further discussion please see speech pathologist's note. I have personally reviewed the image(s) and the resident's interpretation and agree with the findings, Elena magdaleno at 12/28/2019 2:27 PM Thank you for letting us participate in the care of this patient. For questions regarding this report, please contact e number below. Electronically signed by: Elena carrasquillo, [facility] ([phone]), at 12/28/2019 2:27 PM Remi Tenorio MD IMG FLUORO ORDERABLES POCT Glucose (12/28/2019 12:07 PM EDT) athologist Signature POC Glucose 191 65 - 199 [facility] mg/dL [facility] Comment: Supplemental ranges: <140 mg/dL before meals <180 mg/dL all other times of the day Specimen Anatomical Collection Method Collection Time Receive d Time (Source) Location / / Volume Laterality Blood specimen 12/28/2019 12:07 0 (specimen) PM EDT 12:07 PM EDT Magali Lopez MD POINT OF CARE TEST ORDERABLE S Performing Organization Address City/State/[place] [address] POCT Glucose (12/28/2019 8:08 AM EDT) athologist Signature POC Glucose 141 65 - 199 [place] mg/dL [facility] Comment: Supplemental ranges: <140 mg/dL before meals <180 mg/dL all other times of the day Specimen Anatomical Collection Method Collection Time Receive d Time (Source) Location / / Volume Laterality Blood specimen 12/28/2019 8:08 AM 020 8:08 (specimen) EDT AM EDT Magali Lopez MD POINT OF CARE TEST ORDERABLE S Performing Organization Address City/State/ZIP Code Phon e Number [address] POCT Glucose (12/28/2019 3:45 AM EDT) athologist Signature POC Glucose 177 65 - 199 [facility]/dL [facility] Comment: Supplemental ranges: <140 mg/dL before meals <180 mg/dL all other times of the day Specimen Anatomical Collection Method Collection Time Receive d Time (Source) Location / / Volume Laterality Blood specimen 12/28/2019 3:45 AM 020 3:45 (specimen) EDT AM EDT Magali Lopez MD POINT OF CARE TEST ORDERABLE S Performing Organization Address City/State/ZIP Code Phon e Number [address] POCT Glucose (12/27/2019 11:29 PM EDT) athologist Signature POC Glucose 148 65 - 199 [place] mg/dL [facility] Comment: Supplemental ranges: <140 mg/dL before meals <180 mg/dL all other times of the day Specimen Anatomical Collection Method Collection Time Receive d Time (Source) Location / / Volume Laterality Blood specimen 12/27/2019 11:29 0 (specimen) PM EDT 11:29 PM EDT Magali Lopez MD POINT OF CARE TEST ORDERABLE S Performing Organization Address City/State/ZIP Code Phon e Number [address] POCT Glucose (12/27/2019 8:05 PM EDT) athologist Signature POC Glucose 185 65 - 199 [facility] mg/dL [facility] Comment: Supplemental ranges: <140 mg/dL before meals <180 mg/dL all other times of the day Specimen Anatomical Collection Method Collection Time Receive d Time (Source) Location / / Volume Laterality Blood specimen 12/27/2019 8:05 PM 020 8:05 (specimen) EDT PM EDT Magali Lopez MD POINT OF CARE TEST ORDERABLE S Performing Organization Address City/[facility]/ZIP Code Phon e Number [address] POCT Glucose (12/27/2019 3:46 PM EDT) athologist Signature POC Glucose 168 65 - 199 [facility] Comment: Supplemental ranges: <140 mg/dL before meals <180 mg/dL all other times of the day Specimen Anatomical Collection Method Collection Time Receive d Time (Source) Location / / Volume Laterality Blood specimen 12/27/2019 3:46 PM 020 3:46 (specimen) EDT PM EDT Magali Lopez MD POINT OF CARE TEST ORDERABLE S Performing Organization Address City/[facility]/ZIP Code Phon e Number [address] COVID-19 PCR (12/27/2019 2:19 PM EDT) [facility] gist Method Time Signature SARS-CoV-2 Not Detected Not Detected [facility] Comment: This result should be interpreted [...] of CO VID-19 is performed using the [employer] RealTime SARS-CoV-2 as authorized by the FDA Emergency Use Authorization (EUA). This EUA assay is intended for In-vitro Diagnostic (IVD) use with respiratory specimens such as nasopharyngeal swabs c ollected from individuals during the acute phase of infection. This assay is performed based on the instructions for use provided by the [employer] and additional guidance provided by CDC and FDA. Testing is performed in the [facility] within the Department of Path ology and Laboratory Medicine at [facility], cert ified under the Clinical Laboratory Improvement Amendments of 1988 (CLIA), 4 2 U.S.C. ?? 263a, to perform high complexity tests. Assay [...] the patient is presumed to be infected. As required or requested by public health authorities, positive specimens may be sent for additional glenis ting. Positive and negative predictive values for this test are highly dependen t on disease prevalence. A result of Invalid indicates that neither the vir al RNA targets nor the internal control target was detected. An invalid result s uggests the presence of inhibitors. Recollection is recommended in the case of an invalid result. CDC COVID-19 criteria for testing on hum an specimens and clinical management guidance information are available at th e CDC Coronavirus Disease 2019 (COVID-19) webpage under Information fo r Healthcare Professionals (https://www.cdc.gov/coronavirus/2019-nc ov/hcp/index.html) Additional information about this and ot her EUA tests can be found in provider and patient fact sheets at the following FDA website: https://www.fda.gov/medical-devices/eexaccucc-ijenghhxpk-vkwaziu-devices/emergen io-wes-wlgvmwotkilmlf#dattg68xgu SARS-Cov-2 RNA Source [employer] Swab [facility] Specimen (Source) Anatomical Collection Method Collection Time Re ceived Time Location / / Volume Laterality Nasopharyngeal swab 12/27/2019 2:19 12/26 (specimen) PM EDT 2:49 PM EDT Comment: Symptoms->Asymptomatic Resulting Agency Comment Spec In Lab Magali Lopez MD MICROBIOLOGY - GENERAL ORDER SHEKHAR Performing Organization Address City/State/[place] [address] (ABNORMAL) POCT Glucose (12/27/2019 11:31 AM EDT) P athologist Signature POC Glucose 235 (H) 65 - 199 [place] mg/dL [facility] Comment: Supplemental ranges: <140 mg/dL before meals <180 mg/dL all other times of the day Specimen Anatomical Collection Method Collection Time Receive d Time (Source) Location / / Volume Laterality Blood specimen 12/27/2019 11:31 0 (specimen) AM EDT 11:31 AM EDT Magali Lopez MD POINT OF CARE TEST ORDERABLE S Performing Organization Address [facility] Phon e Number [address] EKG 12 Lead (12/27/2019 9:49 AM EDT) Component Value Ref Range Test Analysis Performed Pathologis t Method Time At Signature Ventricular rate 72 BPM MUSE SYSTEM Atrial Rate 72 BPM MUSE SYSTEM QRS Duration 76 ms MUSE SYSTEM Q-T Interval 402 ms MUSE SYSTEM QTC Calculated 440 ms MUSE SYSTEM (Bezet) Calculated R [place] 46 degrees MUSE SYSTEM Calculated T [place] -6 degrees MUSE SYSTEM INTERPRETATION Sinus rhythm MUSE SYSTEM Artifact Normal EKG When compared with ECG of 27-DEC-2019 01:41, (unconfirmed) Junctional rhythm has replaced Atrial fibrillation ST more elevated in Lateral leads Nonspecific T wave abnormality no longer evident in Anterior leads T wave amplitude has decreased in Lateral leads QT has shortened Confirmed by MD Sherice, Hai ([id number]) on 12/27/2019 10:50:34 PM Specimen Anatomical Collection Method Collection Time Receive d Time (Source) Location / / Volume Laterality 12/27/2019 9:49 AM 0 EDT 10:50 PM EDT Magali Lopez MD ECG ORDERABLES Performing Organization Address City/[facility]/ZIP Code Phon e Number MUSE SYSTEM POCT Glucose (12/27/2019 7:24 AM EDT) P athologist Signature POC Glucose 163 65 - 199 PATTIE GOMEZESTELITA mg/dL [facility] Comment: Supplemental ranges: <140 mg/dL before meals <180 mg/dL all other times of the day Specimen Anatomical Collection Method Collection Time Receive d Time (Source) Location / / Volume Laterality Blood specimen 12/27/2019 7:24 AM 020 7:24 (specimen) EDT AM EDT Magali Lopez MD POINT OF CARE TEST ORDERABLE S Performing Organization Address City/State/ZIP Code Phon e Number [address] POCT Glucose (12/27/2019 3:56 AM EDT) athologist Signature POC Glucose 178 65 - 199 [place] ESTELITA mg/dL [facility] Comment: Supplemental ranges: <140 mg/dL before meals <180 mg/dL all other times of the day Specimen Anatomical Collection Method Collection Time Receive d Time (Source) Location / / Volume Laterality Blood specimen 12/27/2019 3:56 AM 020 3:56 (specimen) EDT AM EDT Magali Lopez MD POINT OF CARE TEST ORDERABLE S Performing Organization Address City/State/ZIP Code Phon e Number [address] Phosphorus (12/27/2019 3:53 AM EDT) athologist Signature Phosphorus 3.7 2.5 - 4.[address] [facility] ESTELITA mg/dL [facility] Specimen Anatomical Collection Method Collection Time Receive d Time (Source) Location / / Volume Laterality Blood specimen Venous Draw / 12/27/2019 3:53 AM 2019 4:31 (specimen) Unknown EDT AM EDT Resulting Agency Comment Spec In Lab Huey Carty DO CHEMISTRY ORDERABLES Performing Organization Address City/State/ZIP Code Phon e Number [address] Magnesium (12/27/2019 3:53 AM EDT) athologist Signature Magnesium 0.79 0.69 - 1.07 [place] ESTELITA mmol/L [facility] Specimen Anatomical Collection Method Collection Time Receive d Time (Source) Location / / Volume Laterality Blood specimen Venous Draw / 12/27/2019 3:53 AM 2019 4:31 (specimen) Unknown EDT AM EDT Resulting Agency Comment Spec In Lab Huey Carty DO CHEMISTRY ORDERABLES Performing Organization Address City/State/[place] [address] (ABNORMAL) Basic Metabolic Panel (non-fasting) (12/27/2019 3:53 AM EDT) P athologist Signature Glucose Lvl 154 65 - 199 [facility] mg/dL [facility] Comment: Diabetes: >=200 mg/dL plus symp toms BUN 9 (L) 10 - 20 mg/dL [facility] Creatinine 0.73 (L) 0.80 - 1.50 mg/dL [facility] Sodium 139 135 - 145 mmol/L [facility] Potassium 4.1 3.5 - 5.0 mmol/L [facility] Comment: Please note: ??Patients with WBC >100,00 0 may have falsely elevated Potassium levels. ??For accurate Potassium quantif ication in these patients send serum separator tube (gold top) for subsequent determinations. ??Contact the Clinical Chemistry Laboratory if there are any qu estions. Chloride 104 98 - 107 mmol/L [facility] CO2 Not Perf 22 - 31 [facility] Comment: Add-on request. Sample too old to perform test. Anion Gap Unable to Calculate 5 - 15 mmol/L [facility] Calcium 8.1 (L) 8.5 - 10.5 mg/dL [facility] Estimated GFR 98 >=60 mL/min/1.73 m?? [facility] Comment: The eGFR was calculated using the CKD-EP I equation. As with all creatinine based estimates of kidney function, eGFR values calculated with the CKD-EPI equation are not accurate in patients wi th acute kidney failure, extremes of body mass or the acutely ill. [email or web address] eGFR 114 >=60 mL/min/1.73 m?? [facility] Comment: The eGFR was calculated using the CKD-EP I equation. As with all creatinine based estimates of kidney function, eGFR values calculated with the CKD-EPI equation are not accurate in patients wi th acute kidney failure, extremes of body mass or the acutely ill. [email or web address] Specimen Anatomical Collection Method Collection Time Receive d Time (Source) Location / / Volume Laterality Blood specimen Venous Draw / 12/27/2019 3:53 AM 2019 4:31 (specimen) Unknown EDT AM EDT Resulting Agency Comment Spec In Lab Obaida Dairi DO CHEMISTRY ORDERABLES Performing Organization Address City/[facility]/ZIP Code Phon e Number [address] Scan, Peripheral Blood (12/27/2019 3:53 AM EDT) Patholo gist Method Time Signature Plat Estimate Normal [facility] RBC Morphology Abnormal [facility] Microcytes 1-5 /HPF [facility] Hypochromia Slight [facility] Polychromasia Present >5/HPF [facility] Smudge Cells Present [facility] Toxic Granulation Present [facility] Giant Platelets Less than 1 /HPF [facility] Specimen Anatomical Collection Method Collection Time Receive d Time (Source) Location / / Volume Laterality Blood specimen 12/27/2019 3:53 AM 020 4:29 (specimen) EDT AM EDT Resulting Agency Comment Spec In Lab Obaida Dairi DO HEMATOLOGY ORDERABLES Performing Organization Address City/[facility]/ZIP Code Phon e Number [address] Green Tube HOLD (12/27/2019 3:53 AM EDT) P athologist Signature Green Hold Sample in [facility] LABORATORY Specimen Anatomical Collection Method Collection Time Receive d Time (Source) Location / / Volume Laterality Blood specimen Venous Draw / 12/27/2019 3:53 AM 2019 4:29 (specimen) Unknown EDT AM EDT Obaida Dairi DO CHEMISTRY ORDERABLES Performing Organization Address City/State/[place] [address] (ABNORMAL) Differential, Automated (12/27/2019 3:53 AM EDT) P athologist Signature Neutrophils % 38.0 % [facility] Neutr Abs (ANC) 1.81 1.70 - [facility] 6.10 [facility] x10(3)/[facility] LABORATORY Lymphocytes % 48.5 % [facility] Lymphocytes Abs 2.3 0.9 - 3.2 [facility] x10(3)/[facility] LABORATORY Monocytes % 10.0 % [facility] Monocyte Abs 0.5 0.3 - 0.9 [facility] x10(3)/[facility] LABORATORY Eosinophils % 0.4 % [facility] Eosinophils Abs 0.0 0.0 - 0.4 [facility] x10(3)/[facility] LABORATORY Basophils % 0.6 % [facility] Basophils Abs 0.0 0.0 - 0.1 [facility] x10(3)/[facility] LABORATORY Immature Gran % 2.50 % [facility] Comment: Immature granulocytes(IG's)percentage an d absolute count will include metamyelocytes, myelocytes, and promyelo cytes. Blood smears from CBCs yielding IG's will be scanned manually for concor dance. If this scan disagrees with the automated IG or if promyelocytes are not ed, a manual differential will be performed. Anneliese Gran Abs 0.12 (H) 0.00 - 0.04 x10(3)/[facility] LABORATORY Specimen Anatomical Collection Method Collection Time Receive d Time (Source) Location / / Volume Laterality Blood specimen 12/27/2019 3:53 AM 020 4:29 (specimen) EDT AM EDT Resulting Agency Comment Spec In Lab Huey Carty DO HEMATOLOGY ORDERABLES Performing Organization Address City/[facility]/[place] [address] (ABNORMAL) Hemogram (12/27/2019 3:53 AM EDT) Analysis Performed At Patho logist Time Signature WBC 4.8 4.0 - 9.5 [facility] x10(3)/[facility] LABORATORY RBC 3.02 (L) 4.58 - [place] GE[place] 5.54 [facility] x10(6)/[facility] LABORATORY Hemoglobin 8.9 (L) 13.7 - [facility] 16.5 gm/dL [facility] Hematocrit 29.2 (L) 40.5 - [facility] 48.5 % [facility] MCV 96.7 (H) 82.9 - [facility] 93.1 [facility] LABORATORY MCH 29.5 27.5 - [place] ESTELITA 32.1 pg [facility] MCHC 30.5 (L) 32.0 - [place] ESTELITA 35.7 gm/dL [facility] Platelets 172 145 - 357 [facility] x10(3)/[facility] LABORATORY RDWSD 53.7 (H) 36.0 - [facility] 45.0 [facility] LABORATORY RDWCV 15.3 (H) 11.4 - [facility] 13.8 % [facility] MPV 11.0 7.6 - 12.9 [facility] LABORATORY nRBC % Auto 0.0 % [facility] nRBC Abs Auto 0.000 0.000 - [facility] 0.000 [facility] x10(3)/[facility] LABORATORY Specimen Anatomical Collection Method Collection Time Receive d Time (Source) Location / / Volume Laterality Blood specimen 12/27/2019 3:53 AM 020 4:29 (specimen) EDT AM EDT Resulting Agency Comment Spec In Lab Obzahidaa Carloz DO HEMATOLOGY ORDERABLES Performing Organization Address City/State/[place] [address] EKG 12 Lead (12/27/2019 1:41 AM EDT) Component Value Ref Range Test Analysis Performed Pathologis t Method Time At Signature Ventricular rate 92 BPM MUSE SYSTEM Atrial Rate 83 BPM MUSE SYSTEM QRS Duration 74 ms MUSE SYSTEM Q-T Interval 360 ms MUSE SYSTEM QTC Calculated 446 ms MUSE SYSTEM (Bezet) Calculated R [place] 33 degrees MUSE SYSTEM Calculated T [place] -14 degrees MUSE SYSTEM INTERPRETATION Atrial fibrillation MUSE SYSTEM T wave abnormality, consider inferior ischemia or digitalis effect Abnormal ECG When compared with ECG of 23-DEC-2019 03:09, Vent. rate has decreased BY ??[address] elevation now present in Lateral leads Nonspecific T wave abnormality has replaced inve rted T waves in Lateral leads Confirmed by MD Smiley Evan ([id number]) on 12/27/2019 10:57:04 PM Specimen Anatomical Collection Method Collection Time Receive d Time (Source) Location / / Volume Laterality 12/27/2019 1:41 AM 0 EDT 10:57 PM EDT Magali Lopez MD ECG ORDERABLES Performing Organization Address City/[facility]/ZIP Code Phon e Number MUSE SYSTEM POCT Glucose (12/26/2019 11:57 PM EDT) athologist Signature POC Glucose 161 65 - 199 [facility] Comment: Supplemental ranges: <140 mg/dL before meals <180 mg/dL all other times of the day Specimen Anatomical Collection Method Collection Time Receive d Time (Source) Location / / Volume Laterality Blood specimen 12/26/2019 11:57 0 (specimen) PM EDT 11:57 PM EDT Magali Lopez MD POINT OF CARE TEST ORDERABLE S Performing Organization Address City/[facility]/[place] [address] (ABNORMAL) POCT Glucose (12/26/2019 7:54 PM EDT) athologist Signature POC Glucose 215 (H) 65 - 199 [facility] mg/dL [facility] Comment: Supplemental ranges: <140 mg/dL before meals <180 mg/dL all other times of the day Specimen Anatomical Collection Method Collection Time Receive d Time (Source) Location / / Volume Laterality Blood specimen 12/26/2019 7:54 PM 020 7:54 (specimen) EDT PM EDT Magali Lopez MD POINT OF CARE TEST ORDERABLE S Performing Organization Address City/[facility]/[place] [address] POCT Glucose (12/26/2019 4:36 PM EDT) athologist Signature POC Glucose 132 65 - 199 [place] ESTELITA mg/dL [facility] Comment: Supplemental ranges: <140 mg/dL before meals <180 mg/dL all other times of the day Specimen Anatomical Collection Method Collection Time Receive d Time (Source) Location / / Volume Laterality Blood specimen 12/26/2019 4:36 PM 020 4:36 (specimen) EDT PM EDT Magali Lopez MD POINT OF CARE TEST ORDERABLE S Performing Organization Address City/State/ZIP Code Phon e Number [address] (ABNORMAL) POCT Glucose (12/26/2019 12:23 PM EDT) athologist Signature POC Glucose 203 (H) 65 - 199 [place] ESTELITA mg/dL [facility] Comment: Supplemental ranges: <140 mg/dL before meals <180 mg/dL all other times of the day Specimen Anatomical Collection Method Collection Time Receive d Time (Source) Location / / Volume Laterality Blood specimen 12/26/2019 12:23 0 (specimen) PM EDT 12:23 PM EDT Magali Lopez MD POINT OF CARE TEST ORDERABLE S Performing Organization Address City/State/ZIP Code Phon e Number [address] POCT Glucose (12/26/2019 8:12 AM EDT) athologist Signature POC Glucose 169 65 - 199 P[place] ESTELITA mg/dL [facility] Comment: Supplemental ranges: <140 mg/dL before meals <180 mg/dL all other times of the day Specimen Anatomical Collection Method Collection Time Receive d Time (Source) Location / / Volume Laterality Blood specimen 12/26/2019 8:12 AM 020 8:12 (specimen) EDT AM EDT Remi Tenorio MD POINT OF CARE TEST ORDERABLE S Performing Organization Address City/State/ZIP Code Phon e Number [address] Scan, Peripheral Blood (12/26/2019 3:46 AM EDT) [facility] Method Time Signature Plat Estimate Normal [facility] RBC Morphology Abnormal [facility] Microcytes 1-5 /HPF [facility] Hypochromia Slight [facility] Polychromasia Present >5/HPF [facility] Smudge Cells Present [facility] Toxic Granulation Present [facility] Giant Platelets Less than 1 /HPF [facility] Specimen Anatomical Collection Method Collection Time Receive d Time (Source) Location / / Volume Laterality Blood specimen 12/26/2019 3:46 AM 020 4:06 (specimen) EDT AM EDT Resulting Agency Comment Spec In Lab Huey Carty DO HEMATOLOGY ORDERABLES Performing Organization Address City/State/ZIP Code Phon e Number [address] POCT Glucose (12/26/2019 3:46 AM EDT) P athologist Signature POC Glucose 154 65 - 199 [facility] mg/dL [facility] Comment: Supplemental ranges: <140 mg/dL before meals <180 mg/dL all other times of the day Specimen Anatomical Collection Method Collection Time Receive d Time (Source) Location / / Volume Laterality Blood specimen 12/26/2019 3:46 AM 020 3:46 (specimen) EDT AM EDT Remi Tenorio MD POINT OF CARE TEST ORDERABLE S Performing Organization Address City/State/ZIP Code Phon e Number [address] (ABNORMAL) Differential, Automated (12/26/2019 3:46 AM EDT) [facility] Method Time Signature Neutrophils % 32.5 % [facility] Neutr Abs (ANC) 1.44 (L) 1.70 - [facility] 6.10 [facility] x10(3)/[facility] LABORATORY Lymphocytes % 52.9 % [facility] Lymphocytes Abs 2.3 0.9 - 3.2 [facility] x10(3)/[facility] LABORATORY Monocytes % 10.9 % [facility] Monocyte Abs 0.5 0.3 - 0.9 [facility] x10(3)/[facility] LABORATORY Eosinophils % 0.7 % [facility] Eosinophils Abs 0.0 0.0 - 0.4 [facility] x10(3)/[facility] LABORATORY Basophils % 0.5 % [facility] Basophils Abs 0.0 0.0 - 0.1 [facility] x10(3)/[facility] LABORATORY Immature Gran % 2.50 % [facility] Comment: Immature granulocytes(IG's)percentage an d absolute count will include metamyelocytes, myelocytes, and promyelo cytes. Blood smears from CBCs yielding IG's will be scanned manually for concor dance. If this scan disagrees with the automated IG or if promyelocytes are not ed, a manual differential will be performed. Anneliese Gran Abs 0.11 (H) 0.00 - 0.04 x10(3)/[facility] LABORATORY Specimen Anatomical Collection Method Collection Time Receive d Time (Source) Location / / Volume Laterality Blood specimen 12/26/2019 3:46 AM 020 4:06 (specimen) EDT AM EDT Resulting Agency Comment Spec In Lab Huey Carty DO HEMATOLOGY ORDERABLES Performing Organization Address City/State/[place] [address] (ABNORMAL) Hemogram (12/26/2019 3:46 AM EDT) [facility] gist Method Time Signature WBC 4.4 4.0 - 9.5 [facility] x10(3)/[facility] LABORATORY RBC 2.85 (L) 4.58 - [facility] 5.54 [facility] x10(6)/[facility] LABORATORY Hemoglobin 8.4 (L) 13.7 - [facility] 16.5 gm/dL [facility] Hematocrit 27.1 (L) 40.5 - [facility] 48.5 % [facility] MCV 95.1 (H) 82.9 - [place] 93.1 [facility] LABORATORY MCH 29.5 27.5 - [place] 32.1 pg [facility] MCHC 31.0 (L) 32.0 - [place] CAPONE 35.7 gm/dL [facility] Platelets 154 145 - 357 [facility] x10(3)/[facility] LABORATORY RDWSD 52.8 (H) 36.0 - [place] 45.0 [facility] LABORATORY RDWCV 15.3 (H) 11.4 - [place] CAPONE 13.8 % [facility] MPV 11.2 7.6 - 12.9 P[place] CAPONE [facility] LABORATORY nRBC % Auto 0.5 % [facility] nRBC Abs Auto 0.020 (H) 0.000 - [place] CAPONE 0.000 [facility] x10(3)/[facility] LABORATORY Specimen Anatomical Collection Method Collection Time Receive d Time (Source) Location / / Volume Laterality Blood specimen 12/26/2019 3:46 AM 020 4:06 (specimen) EDT AM EDT Resulting Agency Comment Spec In Lab Huey Carty DO HEMATOLOGY ORDERABLES Performing Organization Address City/[facility]/ZIP Code Phon e Number [address] Phosphorus (12/26/2019 3:46 AM EDT) P athologist Signature Phosphorus 3.4 2.5 - 4.[address] [facility] mg/dL [facility] Specimen Anatomical Collection Method Collection Time Receive d Time (Source) Location / / Volume Laterality Blood specimen 12/26/2019 3:46 AM 020 4:06 (specimen) EDT AM EDT Resulting Agency Comment Spec In Lab Magali Jo MD CHEMISTRY ORDERABLES Performing Organization Address City/[facility]/ZIP Code Phon e Number [address] Magnesium (12/26/2019 3:46 AM EDT) P athologist Signature Magnesium 0.85 0.69 - 1.07 P[place] CAPONE mmol/L [facility] Specimen Anatomical Collection Method Collection Time Receive d Time (Source) Location / / Volume Laterality Blood specimen 12/26/2019 3:46 AM 020 4:06 (specimen) EDT AM EDT Resulting Agency Comment Spec In Lab Magali Jo MD CHEMISTRY ORDERABLES Performing Organization Address City/State/[place] [address] (ABNORMAL) Basic Metabolic Panel (non-fasting) (12/26/2019 3:46 AM EDT) P athologist Signature Glucose Lvl 149 65 - 199 [facility] mg/dL [facility] Comment: Diabetes: >=200 mg/dL plus symp toms BUN 11 10 - 20 mg/dL [facility] Creatinine 0.79 (L) 0.80 - 1.50 mg/dL [facility] Sodium 139 135 - 145 mmol/L [facility] Potassium 4.4 3.5 - 5.0 mmol/L [facility] Comment: Please note: ??Patients with WBC >100,00 0 may have falsely elevated Potassium levels. ??For accurate Potassium quantif ication in these patients send serum separator tube (gold top) for subsequent determinations. ??Contact the Clinical Chemistry Laboratory if there are any qu estions. Chloride 106 98 - 107 mmol/L [facility] CO2 26 22 - 31 mmol/L [facility] Anion Gap 7 5 - 15 mmol/L [facility] Calcium 8.5 8.5 - 10.5 mg/dL [facility] Estimated GFR 95 >=60 mL/min/1.73 m?? [facility] Comment: The eGFR was calculated using the CKD-EP I equation. As with all creatinine based estimates of kidney function, eGFR values calculated with the CKD-EPI equation are not accurate in patients wi th acute kidney failure, extremes of body mass or the acutely ill. [email or web address] eGFR 110 >=60 mL/min/1.73 m?? [facility] Comment: The eGFR was calculated using the CKD-EP I equation. As with all creatinine based estimates of kidney function, eGFR values calculated with the CKD-EPI equation are not accurate in patients wi th acute kidney failure, extremes of body mass or the acutely ill. [email or web address] Specimen Anatomical Collection Method Collection Time Receive d Time (Source) Location / / Volume Laterality Blood specimen 12/26/2019 3:46 AM 020 4:06 (specimen) EDT AM EDT Resulting Agency Comment Spec In Lab Magali Jo MD CHEMISTRY ORDERABLES Performing Organization Address City/[facility]/ZIP Code Phon e Number [address] (ABNORMAL) Hepatic Function Panel (12/26/2019 3:46 AM EDT) athologist Signature Total Protein 6.1 6.1 - 8.0 [facility] gm/[facility] Albumin 2.7 (L) 3.2 - 5.[address] [facility] gm/dL [facility] AST 79 (H) 0 - 39 [place] unit/L [facility] ALT 24 0 - 55 [place] EST[place] unit/L [facility] Alk Phos 129 40 - [address] [facility] unit/L [facility] Total 0.6 0.2 - 1.3 [place] Bilirubin mg/dL [facility] Bili, Direct 0.2 0.0 - 0.[address] [facility] mg/dL [facility] Specimen Anatomical Collection Method Collection Time Receive d Time (Source) Location / / Volume Laterality Blood specimen 12/26/2019 3:46 AM 020 4:06 (specimen) EDT AM EDT Resulting Agency Comment Spec In Lab Magali Jo MD CHEMISTRY ORDERABLES Performing Organization Address City/[facility] [place] [address] POCT Glucose (12/26/2019 12:13 AM EDT) athologist Signature POC Glucose 148 65 - 199 [place] ESTELITA mg/dL [facility] Comment: Supplemental ranges: <140 mg/dL before meals <180 mg/dL all other times of the day Specimen Anatomical Collection Method Collection Time Receive d Time (Source) Location / / Volume Laterality Blood specimen 12/26/2019 12:13 0 (specimen) AM EDT 12:13 AM EDT Remi Tenorio MD POINT OF CARE TEST ORDERABLE S Performing Organization Address City/State/ZIP Code Phon e Number [address] POCT Glucose (12/25/2019 8:50 PM EDT) athologist Signature POC Glucose 159 65 - 199 [place] ESTEL[place] mg/dL [facility] Comment: Supplemental ranges: <140 mg/dL before meals <180 mg/dL all other times of the day Specimen Anatomical Collection Method Collection Time Receive d Time (Source) Location / / Volume Laterality Blood specimen 12/25/2019 8:50 PM 020 8:50 (specimen) EDT PM EDT Remi Tenorio MD POINT OF CARE TEST ORDERABLE S Performing Organization Address City/State/ZIP Code Phon e Number [address] POCT Glucose (12/25/2019 4:17 PM EDT) athologist Signature POC Glucose 165 65 - 199 [place] ESTEL[place] mg/dL [facility] Comment: Supplemental ranges: <140 mg/dL before meals <180 mg/dL all other times of the day Specimen Anatomical Collection Method Collection Time Receive d Time (Source) Location / / Volume Laterality Blood specimen 12/25/2019 4:17 PM 020 4:17 (specimen) EDT PM EDT Magali Jo MD POINT OF CARE TEST ORDERABLE S Performing Organization Address City/State/[place] [address] (ABNORMAL) POCT Glucose (12/25/2019 12:17 PM EDT) athologist Signature POC Glucose 210 (H) 65 - 199 PATTIE ESTELITA mg/dL [facility] Comment: Supplemental ranges: <140 mg/dL before meals <180 mg/dL all other times of the day Specimen Anatomical Collection Method Collection Time Receive d Time (Source) Location / / Volume Laterality Blood specimen 12/25/2019 12:17 0 (specimen) PM EDT 12:17 PM EDT Magali Jo MD POINT OF CARE TEST ORDERABLE S Performing Organization Address City/State/ZIP Code Phon e Number [address] POCT Glucose (12/25/2019 7:44 AM EDT) P athologist Signature POC Glucose 168 65 - 199 [facility] Comment: Supplemental ranges: <140 mg/dL before meals <180 mg/dL all other times of the day Specimen Anatomical Collection Method Collection Time Receive d Time (Source) Location / / Volume Laterality Blood specimen 12/25/2019 7:44 AM 020 7:44 (specimen) EDT AM EDT Magali Jo MD POINT OF CARE TEST ORDERABLE S Performing Organization Address City/State/ZIP Code Phon e Number [address] POCT Glucose (12/25/2019 4:18 AM EDT) P athologist Signature POC Glucose 177 65 - 199 [facility]/dL [facility] Comment: Supplemental ranges: <140 mg/dL before meals <180 mg/dL all other times of the day Specimen Anatomical Collection Method Collection Time Receive d Time (Source) Location / / Volume Laterality Blood specimen 12/25/2019 4:18 AM 020 4:18 (specimen) EDT AM EDT Magali Jo MD POINT OF CARE TEST ORDERABLE S Performing Organization Address City/State/ZIP Code Phon e Number [address] Scan, Peripheral Blood (12/25/2019 1:16 AM EDT) Patholo gist Method Time Signature Plat Estimate Decreased [facility] RBC Morphology Abnormal [facility] Microcytes 1-5 /HPF [facility] Hypochromia Slight [facility] Polychromasia Present >5/HPF [facility] Smudge Cells Present [facility] Specimen Anatomical Collection Method Collection Time Receive d Time (Source) Location / / Volume Laterality Blood specimen 12/25/2019 1:16 AM 020 1:36 (specimen) EDT AM EDT Resulting Agency Comment Spec In Lab Emerita Sandhu MD HEMATOLOGY ORDERABLES Performing Organization Address City/State/[place] [address] (ABNORMAL) Differential, Automated (12/25/2019 1:16 AM EDT) [facility] Method Time Signature Neutrophils % 38.1 % [facility] Neutr Abs (ANC) 1.57 (L) 1.70 - [facility] 6.10 [facility] x10(3)/[facility] LABORATORY Lymphocytes % 49.0 % [facility] Lymphocytes Abs 2.0 0.9 - 3.2 [facility] x10(3)/[facility] LABORATORY Monocytes % 9.5 % [facility] Monocyte Abs 0.4 0.3 - 0.9 [facility] x10(3)/[facility] LABORATORY Eosinophils % 1.0 % [facility] Eosinophils Abs 0.0 0.0 - 0.4 [facility] x10(3)[facility] LABORATORY Basophils % 0.5 % [facility] Basophils Abs 0.0 0.0 - 0.1 [facility] x10(3)/[facility] LABORATORY Immature Gran % 1.90 % [facility] Comment: Immature granulocytes(IG's)percentage an d absolute count will include metamyelocytes, myelocytes, and promyelo cytes. Blood smears from CBCs yielding IG's will be scanned manually for concor dance. If this scan disagrees with the automated IG or if promyelocytes are not ed, a manual differential will be performed. Anneliese Gran Abs 0.08 (H) 0.00 - 0.04 x10(3)/[facility] LABORATORY Specimen Anatomical Collection Method Collection Time Receive d Time (Source) Location / / Volume Laterality Blood specimen 12/25/2019 1:16 AM 020 1:36 (specimen) EDT AM EDT Resulting Agency Comment Spec In Lab Emerita Sandhu MD HEMATOLOGY ORDERABLES Performing Organization Address City/State/[place] [address] (ABNORMAL) Hemogram (12/25/2019 1:16 AM EDT) Analysis Performed At Patho logist Time Signature WBC 4.1 4.0 - 9.5 [facility] x10(3)/[facility] LABORATORY RBC 3.05 (L) 4.58 - [facility] 5.54 [facility] x10(6)/[facility] LABORATORY Hemoglobin 9.1 (L) 13.7 - [facility] 16.5 gm/dL [facility] Hematocrit 27.7 (L) 40.5 - [facility] 48.5 % [facility] MCV 90.8 82.9 - [facility] 93.1 [facility] LABORATORY MCH 29.8 27.5 - [facility] 32.1 pg [facility] MCHC 32.9 32.0 - [facility] 35.7 gm/dL [facility] Platelets 141 (L) 145 - 357 [facility] x10(3)/[facility] LABORATORY RDWSD 49.0 (H) 36.0 - [facility] 45.0 [facility] LABORATORY RDWCV 14.8 (H) 11.4 - [facility] ESTELITA 13.8 % [facility] MPV 11.2 7.6 - 12.9 [facility] LABORATORY nRBC % Auto 0.0 % [facility] nRBC Abs Auto 0.000 0.000 - [facility] ESTELITA 0.000 [facility] x10(3)/[facility] LABORATORY Specimen Anatomical Collection Method Collection Time Receive d Time (Source) Location / / Volume Laterality Blood specimen 12/25/2019 1:16 AM 020 1:36 (specimen) EDT AM EDT Resulting Agency Comment Spec In Lab Emerita Sandhu MD HEMATOLOGY ORDERABLES Performing Organization Address City/State/ZIP Code Phon e Number [address] Phosphorus (12/25/2019 1:16 AM EDT) athologist Signature Phosphorus 2.8 2.5 - 4.5 [facility]/dL [facility] Specimen Anatomical Collection Method Collection Time Receive d Time (Source) Location / / Volume Laterality Blood specimen 12/25/2019 1:16 AM 020 1:36 (specimen) EDT AM EDT Resulting Agency Comment Spec In Lab Magali Jo MD CHEMISTRY ORDERABLES Performing Organization Address City/State/ZIP Code Phon e Number [address] Magnesium (12/25/2019 1:16 AM EDT) athologist Signature Magnesium 0.77 0.69 - 1.07 [facility] mmol/L [facility] Specimen Anatomical Collection Method Collection Time Receive d Time (Source) Location / / Volume Laterality Blood specimen 12/25/2019 1:16 AM 020 1:36 (specimen) EDT AM EDT Resulting Agency Comment Spec In Lab Magali Jo MD CHEMISTRY ORDERABLES Performing Organization Address City/[facility]/ZIP Code Phon e Number [address] (ABNORMAL) Basic Metabolic Panel (non-fasting) (12/25/2019 1:16 AM EDT) athologist Signature Glucose Lvl 167 65 - 199 [facility] Comment: Diabetes: >=200 mg/dL plus symp toms BUN 10 10 - 20 mg/dL [facility] LABORATORY Creatinine 0.61 (L) 0.80 - 1.50 mg/dL [facility] LAB[facility]ORY Sodium 139 135 - 145 mmol/L [facility] Potassium 3.8 3.5 - 5.0 mmol/L [facility] Comment: Please note: ??Patients with WBC >100,00 0 may have falsely elevated Potassium levels. ??For accurate Potassium quantif ication in these patients send serum separator tube (gold top) for subsequent determinations. ??Contact the Clinical Chemistry Laboratory if there are any qu estions. Chloride 106 98 - 107 mmol/L [facility] CO2 23 22 - 31 mmol/L [facility] Anion Gap 10 5 - 15 mmol/L [facility] Calcium 8.2 (L) 8.5 - 10.5 mg/dL [facility]ORY Estimated GFR 106 >=60 mL/min/1.73 m?? [facility] Comment: The eGFR was calculated using the CKD-EP I equation. As with all creatinine based estimates of kidney function, eGFR values calculated with the CKD-EPI equation are not accurate in patients wi th acute kidney failure, extremes of body mass or the acutely ill. [email or web address] CITYnkf eGFR 122 >=60 mL/min/1.73 m?? [facility] Comment: The eGFR was calculated using the CKD-EP I equation. As with all creatinine based estimates of kidney function, eGFR values calculated with the CKD-EPI equation are not accurate in patients wi th acute kidney failure, extremes of body mass or the acutely ill. [email or web address] Specimen Anatomical Collection Method Collection Time Receive d Time (Source) Location / / Volume Laterality Blood specimen 12/25/2019 1:16 AM 020 1:36 (specimen) EDT AM EDT Resulting Agency Comment Spec In Lab Magali Jo MD CHEMISTRY ORDERABLES Performing Organization Address City/State/[place] [address] POCT Glucose (12/25/2019 1:15 AM EDT) P athologist Signature POC Glucose 170 65 - 199 [facility] mg/dL [facility] Comment: Supplemental ranges: <140 mg/dL before meals <180 mg/dL all other times of the day Specimen Anatomical Collection Method Collection Time Receive d Time (Source) Location / / Volume Laterality Blood specimen 12/25/2019 1:15 AM 020 1:15 (specimen) EDT AM EDT Magali Jo MD POINT OF CARE TEST ORDERABLE S Performing Organization Address City/State/ZIP Code Phon e Number [address] (ABNORMAL) POCT Glucose (12/24/2019 8:46 PM EDT) P athologist Signature POC Glucose 204 (H) 65 - 199 PATTIE ESTELITA mg/dL [facility] Comment: Supplemental ranges: <140 mg/dL before meals <180 mg/dL all other times of the day Specimen Anatomical Collection Method Collection Time Receive d Time (Source) Location / / Volume Laterality Blood specimen 12/24/2019 8:46 PM 020 8:46 (specimen) EDT PM EDT Magali Jo MD POINT OF CARE TEST ORDERABLE S Performing Organization Address City/State/ZIP Code Phon e Number [address] XR Abdomen 1 view (Generic) (12/24/2019 5:16 PM EDT) Anatomical Region Laterality Modality Abdomen N/A Digital Radiography Specimen (Source) Anatomical Location Collection Method / Collectio n Time Received Time / Laterality Volume Impressions 12/24/2019 5:19 PM EDT Esophagogastric tube with weighted tip projected in the LEFT upper quadrant region of the stomach. Thank you for letting us participate in the care of this patient. For questions regarding this report, please contact e number below. ? Narrative 12/24/2019 5:19 PM EDT EXAMINATION: XR ABDOMEN 1 VIEW (GENERIC) CLINICAL HISTORY: Confirm placement of d obhoff tube TECHNIQUE: AP portable 35 degrees uprigh t lower chest and upper abdomen COMPARISON: Prior imaging 12/20/2019 FINDINGS: Esophagogastric tube with tip positioned in the LEFT upper quadrant region of the stomach. Cholecystectomy clips noted in the RIGHT upper quadrant. Lung bases are clear. Procedure Note May Mccallum MD - 12/24/2019Forma tting of this note might be different from the original. EXAMINATION: XR ABDOMEN 1 VIEW (GENERIC) CLINICAL HISTORY: Confirm placement of d obhoff tube TECHNIQUE: AP portable 35 degrees uprigh t lower chest and upper abdomen COMPARISON: Prior imaging 12/20/2019 FINDINGS: Esophagogastric tube with tip positioned in the LEFT upper quadrant region of the stomach. Cholecystectomy clips noted in the RIGHT upper quadrant. Lung bases are clear. IMPRESSION Esophagogastric tube with weighted tip p rojected in the LEFT upper quadrant region of the stomach. Thank you for letting us participate in the care of this patient. For questions regarding this report, please contact e number below. Magali Jo MD IMG DX ORDERABLES Blood culture (12/24/2019 5:00 PM EDT) [facility] gist Method Time Signature Blood Culture No growth [facility] at 5 days. [facility] Specimen Anatomical Collection Method Collection Time Receive d Time (Source) Location / / Volume Laterality Blood specimen 12/24/2019 5:00 PM 020 5:33 (specimen) EDT PM EDT Resulting Agency Comment Spec In Lab Magali Jo MD MICROBIOLOGY - BLOOD ORDERAB LES Performing Organization Address City/State/[place] [address] Immunofixation Electrophoresis (12/24/2019 4:55 PM EDT) athologist Signature ALBINA See Note [facility] Comment: There is approximately 0.06 g/dL of mono clonal IgG kappa immunoglobulin present in this patient's serum. Dr. Fiorella Lan 12/28/2019 Please see scanned report in Chart Revie w under the [facility] Heading. Specimen Anatomical Collection Method Collection Time Receive d Time (Source) Location / / Volume Laterality Blood specimen Venous Draw / 12/24/2019 4:55 PM 2019 5:24 (specimen) Unknown EDT PM EDT Narrative This result has an attachment that is no t available. Resulting Agency Comment Spec In Lab Bubba Sinclair MD CHEMISTRY ORDERABLES Performing Organization Address City/State/ZIP Code Phon e [place] [address] [facility] [address] Smear Review Report (12/24/2019 4:55 PM EDT) Component Value Ref Test Analysis Performed At [facility] Range Method Time Signature Smear Review [id number] ? Location: IC3N; IC39; A PATTIE Cast GERLAW The signing pathologist has (i) examined the relevant preparation(s) for the [facility] specimen(s) and (ii) rendered or confirmed the diagnosis(es) . HOSPITAL LABORATORY . ? Sm ear Review DIAGNOSIS PERIPHERAL BLOOD, SMEAR: ?? 1. ??Marked hypochromic normocytic anemia (see discussio n) Electronically signed by: ??Celestina SANTIAGO, Alban Verified: ??12/25/2019 ?Hematopathologist Performed at: ??-[facility] Dept. of Pathology, [place], [place] DISCUSSION The patient's history of cri tical illness is noted and likely contributory to the hemogram findings. Bleeding should be investigated given the degree of polychromasia seen. Reticulated hemoglobi n (RET-HE test offered under reticulocyte count) is a more sensitive indicator of current iron stores available for hemoglobin synthesis and can be ordered if clini erika indicated. No schistocytes are apparent on this periperhal smear, however i f there is clinical concern for hemolysis, correlation with additional laboratory testing is recommended; LDH, bilirubin, reticulocyte count, haptoglobin, DIC scr een, and direct antiglobulin testing may provide a more definitive evaluation. The reported history of thrombocytopenia is noted, however that abnormality appears to have essentially resolved itself at the time of this study. ADDITIONAL STUDIES WBC 5.0K/uL, RBC 3.2M/uL, HGB 9.7g/dL, MCV 90.4fL, RDW 14.7% , PLT 149K/uL The peripheral smear shows a marked hypochromic normocytic a nemia. Anisopoikilocytosis is incr eased, and ovalocytes, microcytes, and polychromatic macrocytes are seen. The to louis leukocyte count is normal, and all relative and absolute leukocyte-subset c ounts are within reference limits. The neutrophils are mostly mature and without s ignificant left-shift. Occasional atypical lymphocytes are appreciated but no frankly abnormal forms are see n. Remaining leukocyte morphology is generally unr emarkable. The platelet counts and morphology are normal. CLINICAL INFORMATION A 64 year old man for whom s mear review was requested to evaluate cytopenia. The patient is admitted for acu te on chronic encephalopathy with unexplained fevers non-responsive to antibioti cs. He has a history of advanced Parkinson's disease and chronic thrombocytopenia. Specimen (Source) Anatomical Collection Method Collection Time Re ceived Time Location / / Volume Laterality 12/24/2019 4:55 PM EDT Emerita Sandhu MD PATHOLOGY/CYTOLOGY ORDERABLE S Performing Organization Address City/State/ZIP Code Phon e Number [address] Scan, Peripheral Blood (12/24/2019 4:55 PM EDT) [facility] gist Method Time Signature Plat Estimate Normal [facility] RBC Morphology Abnormal [facility] Polychromasia Present >5/HPF [facility] Smudge Cells Present [facility] Specimen Anatomical Collection Method Collection Time Receive d Time (Source) Location / / Volume Laterality Blood specimen 12/24/2019 4:55 PM 020 5:05 (specimen) EDT PM EDT Resulting Agency Comment Spec In Lab Emerita Sandhu MD HEMATOLOGY ORDERABLES Performing Organization Address City/[facility]/[place] [address] (ABNORMAL) Differential, Automated (12/24/2019 4:55 PM EDT) P athologist Signature Neutrophils % 36.8 % [facility] Neutr Abs (ANC) 1.84 1.70 - [facility] 6.10 [facility] x10(3)/[facility] LABORATORY Lymphocytes % 52.0 % [facility] Lymphocytes Abs 2.6 0.9 - 3.2 [facility] x10(3)/[facility] LABORATORY Monocytes % 9.0 % [facility] Monocyte Abs 0.4 0.3 - 0.9 [facility] x10(3)/[facility] LABORATORY Eosinophils % 0.2 % [facility] Eosinophils Abs 0.0 0.0 - 0.4 [facility] x10(3)/[facility] LABORATORY Basophils % 0.6 % [facility] Basophils Abs 0.0 0.0 - 0.1 [facility] x10(3)/[facility] LABORATORY Immature Gran % 1.40 % [facility] Comment: Immature granulocytes(IG's)percentage an d absolute count will include metamyelocytes, myelocytes, and promyelo cytes. Blood smears from CBCs yielding IG's will be scanned manually for concor dance. If this scan disagrees with the automated IG or if promyelocytes are not ed, a manual differential will be performed. Anneliese Gran Abs 0.07 (H) 0.00 - 0.04 x10(3)/[facility] LABORATORY Specimen Anatomical Collection Method Collection Time Receive d Time (Source) Location / / Volume Laterality Blood specimen 12/24/2019 4:55 PM 020 5:05 (specimen) EDT PM EDT Resulting Agency Comment Spec In Lab Emerita Sandhu MD HEMATOLOGY ORDERABLES Performing Organization Address City/State/[place] [address] (ABNORMAL) Hemogram (12/24/2019 4:55 PM EDT) Analysis Performed At Patho logist Time Signature WBC 5.0 4.0 - 9.5 [facility] x10(3)/[facility] LABORATORY RBC 3.22 (L) 4.58 - [facility] 5.54 [facility] x10(6)/[facility] LABORATORY Hemoglobin 9.7 (L) 13.7 - PATTIE GOMEZESTELITA 16.5 gm/dL [facility] Hematocrit 29.1 (L) 40.5 - [facility] 48.5 % [facility] MCV 90.4 82.9 - [facility] 93.1 [facility] LABORATORY MCH 30.1 27.5 - PATTIE GOMEZESTELITA 32.1 pg [facility] MCHC 33.3 32.0 - PATTIE GOMEZESTELITA 35.7 gm/dL [facility] Platelets 149 145 - 357 [facility] x10(3)/[facility] LABORATORY RDWSD 49.0 (H) 36.0 - [facility] 45.0 [facility] LABORATORY RDWCV 14.7 (H) 11.4 - [facility] 13.8 % [facility] MPV 11.1 7.6 - 12.9 [facility] LABORATORY nRBC % Auto 0.0 % [facility] nRBC Abs Auto 0.000 0.000 - PATTIE ESTELITA 0.000 [facility] x10(3)/[facility] LABORATORY Specimen Anatomical Collection Method Collection Time Receive d Time (Source) Location / / Volume Laterality Blood specimen 12/24/2019 4:55 PM 020 5:05 (specimen) EDT PM EDT Resulting Agency Comment Spec In Lab Emerita Sandhu MD HEMATOLOGY ORDERABLES Performing Organization Address City/State/[place] [address] (ABNORMAL) Protein Electrophoresis, serum (12/24/2019 4:55 PM EDT) Analysis Performed At Patho logist Time Signature Total Prot 5.8 (L) 6.1 - 8.0 PATTIE CAPONE Elec gm/dL [facility] Albumin Elect 2.80 (L) 3.60 - PATTIE GOMEZESTELITA 6.00 gm/dL [facility] Alpha1-Globuli 0.32 (H) 0.10 - PATTIE AREVALOCK n 0.30 gm/dL [facility] Alpha2-Globuli 0.69 0.40 - PATTIE CAPONE n 0.90 gm/dL [facility] Beta Globulin 0.65 0.50 - P[facility]IE ESTELITA 1.00 gm/dL [facility] Gamma Globulin 1.34 (H) 0.50 - P[place]IE ESTELITA 1.30 gm/dL [facility] M1 Band 0.06 gm/dL [facility] SPEP Comments See Note [facility] Comment: The serum protein electrophoresis (PEP) shows a band that is consistent with a paraprotein. Immunofixation (ALBINA) and qu antitative immunoglobulin (BAUTISTA) testing will be performed on this sample to veri fy that it is a monoclonal immunoglobulin. Specimen Anatomical Collection Method Collection Time Receive d Time (Source) Location / / Volume Laterality Blood specimen 12/24/2019 4:55 PM 020 5:05 (specimen) EDT PM EDT Narrative This result has an attachment that is no t available. Resulting Agency Comment Spec In Lab Magali Jo MD CHEMISTRY ORDERABLES Performing Organization Address City/[facility]/[place] [address] (ABNORMAL) Immunoglobulins, Quantitative (12/24/2019 4:55 PM EDT) athologist Signature IgG 1,203 700 - 1,600 [facility] mg/dL [facility] Comment: Pediatric Reference Intervals obtained f rom the Caliper Reference Interval project. http://www.sickkids.ca/caliperp roject/index.html IgA 482 (H) 70 - 400 mg/dL [facility] IgM 141 40 - 230 mg/dL [facility] Specimen Anatomical Collection Method Collection Time Receive d Time (Source) Location / / Volume Laterality Blood specimen 12/24/2019 4:55 PM 020 5:05 (specimen) EDT PM EDT Resulting Agency Comment Spec In Lab Magali Jo MD CHEMISTRY ORDERABLES Performing Organization Address City/[facility]/[place] [address] HIV Screen, 4th Generation ([facility]/CGP/APD) (12/24/2019 4:55 PM EDT) Analysis Performed At Patho logist Time Signature HIV-1/2 Ab and Negative Negative [facility] LABORATORY Comment: This 4th Generation HIV test screens for the presence of the HIV-1 p24 antigen as well as antibodies reactive against H IV-1 and HIV-2. A negative screen does not rule out an acute HIV infection. If acute HIV infection is suspected, testing should be repeated in 2 - 3 week s or HIV nucleic acid testing performed. Specimen Anatomical Collection Method Collection Time Receive d Time (Source) Location / / Volume Laterality Blood specimen 12/24/2019 4:55 PM 020 5:05 (specimen) EDT PM EDT Resulting Agency Comment Spec In Lab Magali Jo MD IMMUNOLOGY ORDERABLES Performing Organization Address [facility] [place] [address] Peripheral Smear Review (12/24/2019 4:55 PM EDT) Patholo gist Method Time Signature Periph Smear See Comment [facility] LABORATORY Comment: When completed by the Pathologist, repor t [id number] will display under Hematopathology Reports. Specimen Anatomical Collection Method Collection Time Receive d Time (Source) Location / / Volume Laterality Blood specimen 12/24/2019 4:55 PM 020 5:05 (specimen) EDT PM EDT Resulting Agency Comment Spec In Lab Magali Jo MD HEMATOLOGY ORDERABLES Performing Organization Address City/[facility] [place] [address] (ABNORMAL) Lactate Dehydrogenase (12/24/2019 4:55 PM EDT) P athologist Signature LDH 345 (H) 110 - 220 [facility] LABORATORY Specimen Anatomical Collection Method Collection Time Receive d Time (Source) Location / / Volume Laterality Blood specimen 12/24/2019 4:55 PM 020 5:05 (specimen) EDT PM EDT Resulting Agency Comment Spec In Lab Magali Jo MD CHEMISTRY ORDERABLES Performing Organization Address City/[facility]/[place] [address] (ABNORMAL) CRP, acute inflammation (12/24/2019 4:55 PM EDT) athologist Signature CRP 59.1 (H) <=4.9 mg/L [facility] LABORATORY Specimen Anatomical Collection Method Collection Time Receive d Time (Source) Location / / Volume Laterality Blood specimen 12/24/2019 4:55 PM 020 5:05 (specimen) EDT PM EDT Resulting Agency Comment Spec In Lab Magali Jo MD CHEMISTRY ORDERABLES Performing Organization Address City/[facility]/[place] [address] (ABNORMAL) Sedimentation rate (12/24/2019 4:55 PM EDT) athologist Signature Sed Rate 50 (H) 2 - 37 [facility] mm/hr [facility] Comment: Effective July 22, 2019 new capillar y photometric technology has resulted in a change in reference ranges. It is r ecommended that each ESR result be reviewed with its own age appropriate re ference range. Specimen Anatomical Collection Method Collection Time Receive d Time (Source) Location / / Volume Laterality Blood specimen 12/24/2019 4:55 PM 020 5:05 (specimen) EDT PM EDT Resulting Agency Comment Spec In Lab Magali Jo MD HEMATOLOGY ORDERABLES Performing Organization Address City/[facility]/[place] [address] POCT Glucose (12/24/2019 3:35 PM EDT) athologist Signature POC Glucose 163 65 - 199 [facility] mg/dL [facility] Comment: Supplemental ranges: <140 mg/dL before meals <180 mg/dL all other times of the day Specimen Anatomical Collection Method Collection Time Receive d Time (Source) Location / / Volume Laterality Blood specimen 12/24/2019 3:35 PM 020 3:35 (specimen) EDT PM EDT Magali Jo MD POINT OF CARE TEST ORDERABLE S Performing Organization Address City/State/[place] [address] (ABNORMAL) POCT Glucose (12/24/2019 12:02 PM EDT) athologist Signature POC Glucose 216 (H) 65 - 199 [facility] mg/dL [facility] Comment: Supplemental ranges: <140 mg/dL before meals <180 mg/dL all other times of the day Specimen Anatomical Collection Method Collection Time Receive d Time (Source) Location / / Volume Laterality Blood specimen 12/24/2019 12:02 0 (specimen) PM EDT 12:02 PM EDT Magali Jo MD POINT OF CARE TEST ORDERABLE S Performing Organization Address City/[facility]/[place] [address] (ABNORMAL) Hepatic Function Panel (12/24/2019 6:08 AM EDT) athologist Signature Total Protein 5.9 (L) 6.1 - 8.[address] [facility] gm/dL [facility] Albumin 2.5 (L) 3.2 - 5.[address] [facility] gm/dL [facility] AST 76 (H) 0 - 39 [facility] unit/L [facility] ALT 60 (H) 0 - [address] [facility] unit/L [facility] Alk Phos 140 (H) 40 - [address] [facility] unit/L [facility] Total 0.7 0.2 - 1.3 [facility] Bilirubin mg/dL [facility] Bili, Direct 0.5 (H) 0.0 - 0.3 [facility] mg/dL [facility] Specimen Anatomical Collection Method Collection Time Receive d Time (Source) Location / / Volume Laterality Blood specimen Venous Draw / 12/24/2019 6:08 AM 2019 6:21 (specimen) Unknown EDT AM EDT Resulting Agency Comment Spec In Lab Emerita Sandhu MD CHEMISTRY ORDERABLES Performing Organization Address City/[facility]/[place] [address] (ABNORMAL) POCT Glucose (12/24/2019 6:08 AM EDT) P athologist Signature POC Glucose 228 (H) 65 - 199 [facility] mg/dL [facility] Comment: Supplemental ranges: <140 mg/dL before meals <180 mg/dL all other times of the day Specimen Anatomical Collection Method Collection Time Receive d Time (Source) Location / / Volume Laterality Blood specimen 12/24/2019 6:08 AM 020 6:08 (specimen) EDT AM EDT Magali Jo MD POINT OF CARE TEST ORDERABLE S Performing Organization Address City/[facility]/ZIP Code Phon e Number [address] Potassium (12/24/2019 6:08 AM EDT) athologist Signature Potassium 4.2 3.5 - 5.0 [facility] mmol/L [facility] Comment: Please note: ??Patients with WBC >100,00 0 may have falsely elevated Potassium levels. ??For accurate Potassium quantif ication in these patients send serum separator tube (gold top) for subsequent determinations. ??Contact the Clinical Chemistry Laboratory if there are any qu estions. Specimen Anatomical Collection Method Collection Time Receive d Time (Source) Location / / Volume Laterality Blood specimen 12/24/2019 6:08 AM 020 6:15 (specimen) EDT AM EDT Resulting Agency Comment Spec In Lab Magali Jo MD CHEMISTRY ORDERABLES Performing Organization Address City/[facility]/ZIP Code Phon e Number [address] Scan, Peripheral Blood (12/24/2019 12:38 AM EDT) Patholo gist Method Time Signature Plat Estimate Decreased [facility]OR[facility] RBC Morphology Abnormal [facility] Jack Cells 1-5 /HPF [facility] Smudge Cells Present [facility] Specimen Anatomical Collection Method Collection Time Receive d Time (Source) Location / / Volume Laterality Blood specimen 12/24/2019 12:38 0 (specimen) AM EDT 12:46 AM EDT Resulting Agency Comment Spec In Lab Bubba Sinclair MD HEMATOLOGY ORDERABLES Performing Organization Address City/State/ZIP Code Phon e Number [address] Differential, Automated (12/24/2019 12:38 AM EDT) P athologist Signature Neutrophils % 38.5 % [facility] LABORATORY Neutr Abs (ANC) 2.13 1.70 - [facility] 6.10 [facility] x10(3)/[facility] LABORATORY Lymphocytes % 52.0 % [facility] LABORATORY Lymphocytes Abs 2.9 0.9 - 3.2 [facility] x10(3)/[facility] LABORATORY Monocytes % 7.4 % [facility] LABORATORY Monocyte Abs 0.4 0.3 - 0.9 [facility] x10(3)/[facility] LABORATORY Eosinophils % 0.5 % [facility] LABORATORY Eosinophils Abs 0.0 0.0 - 0.4 [facility] x10(3)/[facility] LABORATORY Basophils % 0.9 % [facility] LABORATORY Basophils Abs 0.0 0.0 - 0.1 [facility] x10(3)/[facility] LABORATORY Immature Gran % 0.70 % [facility] Comment: Immature granulocytes(IG's)percentage an d absolute count will include metamyelocytes, myelocytes, and promyelo cytes. Blood smears from CBCs yielding IG's will be scanned manually for concor dance. If this scan disagrees with the automated IG or if promyelocytes are not ed, a manual differential will be performed. Anneliese Gran Abs 0.04 0.00 - 0.04 x10(3)/[facility] Y [facility] LABORATORY Specimen Anatomical Collection Method Collection Time Receive d Time (Source) Location / / Volume Laterality Blood specimen 12/24/2019 12:38 0 (specimen) AM EDT 12:46 AM EDT Resulting Agency Comment Spec In Lab Bubba Sinclair MD HEMATOLOGY ORDERABLES Performing Organization Address City/[facility]/ZIP Code Phon e Number [address] (ABNORMAL) Hemogram (12/24/2019 12:38 AM EDT) Analysis Performed At Patho logist Time Signature WBC 5.5 4.0 - 9.5 [facility] x10(3)/[facility] LABORATORY RBC 3.25 (L) 4.58 - [facility] 5.54 [facility] x10(6)/[facility] LABORATORY Hemoglobin 9.8 (L) 13.7 - [facility] 16.5 gm/dL [facility] Hematocrit 28.8 (L) 40.5 - [facility] 48.5 % [facility] MCV 88.6 82.9 - [facility] 93.1 [facility] LABORATORY MCH 30.2 27.5 - [facility] 32.1 pg [facility] MCHC 34.0 32.0 - [facility] 35.7 gm/dL [facility] Platelets 136 (L) 145 - 357 [facility] x10(3)/[facility] LABORATORY RDWSD 47.8 (H) 36.0 - [facility] 45.0 [facility] LABORATORY RDWCV 14.6 (H) 11.4 - [facility] 13.8 % [facility] MPV 11.1 7.6 - 12.9 [facility] LABORATORY nRBC % Auto 0.0 % [facility]ORATORY nRBC Abs Auto 0.000 0.000 [facility] x10(3)/[facility] LABORATORY Specimen Anatomical Collection Method Collection Time Receive d Time (Source) Location / / Volume Laterality Blood specimen 12/24/2019 12:38 0 (specimen) AM EDT 12:46 AM EDT Resulting Agency Comment Spec In Lab Bubba Sinclair MD HEMATOLOGY ORDERABLES Performing Organization Address City/State/[place] [address] Phosphorus (12/24/2019 12:38 AM EDT) P athologist Signature Phosphorus 2.9 2.5 - 4.5 [facility] mg/dL [facility] Specimen Anatomical Collection Method Collection Time Receive d Time (Source) Location / / Volume Laterality Blood specimen 12/24/2019 12:38 0 (specimen) AM EDT 12:46 AM EDT Resulting Agency Comment Spec In Lab Magali Jo MD CHEMISTRY ORDERABLES Performing Organization Address City/[facility]/ZIP Code Phon e Number [address] Magnesium (12/24/2019 12:38 AM EDT) P athologist Signature Magnesium 0.69 0.69 - 1.07 [facility] LABORATORY Specimen Anatomical Collection Method Collection Time Receive d Time (Source) Location / / Volume Laterality Blood specimen 12/24/2019 12:38 0 (specimen) AM EDT 12:46 AM EDT Resulting Agency Comment Spec In Lab Magali Jo MD CHEMISTRY ORDERABLES Performing Organization Address City/[facility] Code Phon e Number [address] (ABNORMAL) Basic Metabolic Panel (non-fasting) (12/24/2019 12:38 AM EDT) athologist Signature Glucose Lvl 191 65 - 199 [facility] mg/dL [facility] Comment: Diabetes: >=200 mg/dL plus symp toms BUN 10 10 - 20 mg/dL [facility] LABORATORY Creatinine 0.64 (L) 0.80 - 1.50 mg/dL [facility] LABORATORY Sodium 133 (L) 135 - 145 mmol/L [facility] LABORATORY Potassium 3.9 3.5 - 5.0 mmol/L [facility] LABORATORY Comment: Please note: ??Patients with WBC >100,00 0 may have falsely elevated Potassium levels. ??For accurate Potassium quantif ication in these patients send serum separator tube (gold top) for subsequent determinations. ??Contact the Clinical Chemistry Laboratory if there are any qu estions. Chloride 100 98 - 107 mmol/L [facility] CO2 21 (L) 22 - 31 mmol/L [facility] Anion Gap 12 5 - 15 mmol/L [facility] LABORATORY Calcium 8.0 (L) 8.5 - 10.5 mg/dL [facility] LABORATORY Estimated GFR 103 >=60 mL/min/1.73 m?? [facility] Comment: The eGFR was calculated using the CKD-EP I equation. As with all creatinine based estimates of kidney function, eGFR values calculated with the CKD-EPI equation are not accurate in patients wi th acute kidney failure, extremes of body mass or the acutely ill. [email or web address] CITYnkf eGFR 120 >=60 mL/min/1.73 m?? [facility] Comment: The eGFR was calculated using the CKD-EP I equation. As with all creatinine based estimates of kidney function, eGFR values calculated with the CKD-EPI equation are not accurate in patients wi th acute kidney failure, extremes of body mass or the acutely ill. [email or web address] Specimen Anatomical Collection Method Collection Time Receive d Time (Source) Location / / Volume Laterality Blood specimen 12/24/2019 12:38 0 (specimen) AM EDT 12:46 AM EDT Resulting Agency Comment Spec In Lab Magali Jo MD CHEMISTRY ORDERABLES Performing Organization Address City/State/ZIP Code Phon e Number [address] POCT Glucose (12/24/2019 12:13 AM EDT) athologist Signature POC Glucose 180 65 - 199 [facility]dL [facility] Comment: Supplemental ranges: <140 mg/dL before meals <180 mg/dL all other times of the day Specimen Anatomical Collection Method Collection Time Receive d Time (Source) Location / / Volume Laterality Blood specimen 12/24/2019 12:13 0 (specimen) AM EDT 12:13 AM EDT Magali Jo MD POINT OF CARE TEST ORDERABLE S Performing Organization Address City/[facility]/ZIP Code Phon e Number [address] POCT Glucose (12/23/2019 6:01 PM EDT) athologist Signature POC Glucose 183 65 - 199 [facility] mg/dL [facility] Comment: Supplemental ranges: <140 mg/dL before meals <180 mg/dL all other times of the day Specimen Anatomical Collection Method Collection Time Receive d Time (Source) Location / / Volume Laterality Blood specimen 12/23/2019 6:01 PM 020 6:01 (specimen) EDT PM EDT Magali Jo MD POINT OF CARE TEST ORDERABLE S Performing Organization Address City/[facility]/[place] [address] Potassium (12/23/2019 5:00 PM EDT) P athologist Signature Potassium 3.8 3.5 - 5.0 [facility] mmol/L [facility] Comment: Please note: ??Patients with WBC >100,00 0 may have falsely elevated Potassium levels. ??For accurate Potassium quantif ication in these patients send serum separator tube (gold top) for subsequent determinations. ??Contact the Clinical Chemistry Laboratory if there are any qu estions. Specimen Anatomical Collection Method Collection Time Receive d Time (Source) Location / / Volume Laterality Blood specimen 12/23/2019 5:00 PM 020 5:11 (specimen) EDT PM EDT Resulting Agency Comment Spec In Lab Magali Jo MD CHEMISTRY ORDERABLES Performing Organization Address City/[facility] [place] [address] Enterovirus PCR, CSF (12/23/2019 12:47 PM EDT) Patholo gist Method Time Signature Enterovirus Negative Negative [facility] PCR, [facility] LABORATORY Specimen (Source) Anatomical Collection Method Collection Time Re ceived Time Location / / Volume Laterality Cerebrospinal fluid Other / Unknown 12/23/2019 12:47 0 12/23/2019 sample (specimen) PM EDT 12:47 PM E DT Resulting Agency Comment Spec In Lab Emerita Sandhu MD MICROBIOLOGY - GENERAL ORDER SHEKHAR Performing Organization Address City/[facility]/[place] [address] POCT Glucose (12/23/2019 12:19 PM EDT) athologist Signature POC Glucose 192 65 - 199 [facility] mg/dL [facility] Comment: Supplemental ranges: <140 mg/dL before meals <180 mg/dL all other times of the day Specimen Anatomical Collection Method Collection Time Receive d Time (Source) Location / / Volume Laterality Blood specimen 12/23/2019 12:19 0 (specimen) PM EDT 12:19 PM EDT Magali Jo MD POINT OF CARE TEST ORDERABLE S Performing Organization Address City/State/ZIP Code Phon e Number [address] POCT Glucose (12/23/2019 9:17 AM EDT) athologist Signature POC Glucose 184 65 - 199 [facility] mg/dL [facility] Comment: Supplemental ranges: <140 mg/dL before meals <180 mg/dL all other times of the day Specimen Anatomical Collection Method Collection Time Receive d Time (Source) Location / / Volume Laterality Blood specimen 12/23/2019 9:17 AM 020 9:17 (specimen) EDT AM EDT Magali Jo MD POINT OF CARE TEST ORDERABLE S Performing Organization Address City/[facility]/[place] [address] (ABNORMAL) POCT Glucose (12/23/2019 9:16 AM EDT) athologist Signature POC Glucose 206 (H) 65 - 199 [facility] mg/dL [facility] Comment: Supplemental ranges: <140 mg/dL before meals <180 mg/dL all other times of the day Specimen Anatomical Collection Method Collection Time Receive d Time (Source) Location / / Volume Laterality Blood specimen 12/23/2019 9:16 AM 020 9:16 (specimen) EDT AM EDT Magali Jo MD POINT OF CARE TEST ORDERABLE S Performing Organization Address City/State/ZIP Code Phon e Number [address] EKG 12 Lead (12/23/2019 3:09 AM EDT) Component Value Ref Range Test Analysis Performed Pathologis t Method Time At Signature Ventricular rate 141 BPM MUSE SYSTEM Atrial Rate 178 BPM MUSE SYSTEM QRS Duration 90 ms MUSE SYSTEM Q-T Interval 314 ms MUSE SYSTEM QTC Calculated 480 ms MUSE SYSTEM (Bezet) Calculated R [place] 60 degrees MUSE SYSTEM Calculated T [place] -112 degrees MUSE SYSTEM INTERPRETATION Atrial fibrillation with rapid ventricular response MUSE SYSTEM ST & T wave abnormality, consider inferolateral ischemia Abnormal ECG When compared with ECG of 21-DEC-2019 07:37, ST no longer elevated in Inferior leads ST no longer elevated in Lateral leads T wave inversion no longer evident in Anterior leads Confirmed by Laura Stanley ([id number]) on 12/23/2019 9:19:09 A M Specimen Anatomical Collection Method Collection Time Receive d Time (Source) Location / / Volume Laterality 12/23/2019 3:09 AM 0 9:19 EDT AM EDT Magali Jo MD ECG ORDERABLES Performing Organization Address City/[facility]/ZIP Code Phon e Number MUSE SYSTEM Potassium (12/23/2019 1:17 AM EDT) P athologist Signature Potassium 3.7 3.5 - 5.0 [facility] mmol/L [facility] Comment: Please note: ??Patients with WBC >100,00 0 may have falsely elevated Potassium levels. ??For accurate Potassium quantif ication in these patients send serum separator tube (gold top) for subsequent determinations. ??Contact the Clinical Chemistry Laboratory if there are any qu estions. Specimen Anatomical Collection Method Collection Time Receive d Time (Source) Location / / Volume Laterality Blood specimen 12/23/2019 1:17 AM 020 2:00 (specimen) EDT AM EDT Resulting Agency Comment Spec In Lab Magali Jo MD CHEMISTRY ORDERABLES Performing Organization Address City/State/[place] [address] Scan, Peripheral Blood (12/23/2019 12:20 AM EDT) Patholo gist Method Time Signature Plat Estimate Normal [facility]OR[facility]ORY RBC Morphology Abnormal [facility] Tear Drop Cells 1-5 /HPF [facility]ORY [place] Cells 1-5 /HPF [facility]OR[facility]ORY Specimen Anatomical Collection Method Collection Time Receive d Time (Source) Location / / Volume Laterality Blood specimen 12/23/2019 12:20 0 (specimen) AM EDT 12:32 AM EDT Resulting Agency Comment Spec In Lab Bubba Sinclair MD HEMATOLOGY ORDERABLES Performing Organization Address City/State/[place] [address] (ABNORMAL) Differential, Automated (12/23/2019 12:20 AM EDT) [facility] Method Time Signature Neutrophils % 43.7 % [facility] LABORATORY Neutr Abs (ANC) 1.68 (L) 1.70 - [facility] 6.10 [facility] x10(3)/[facility] LABORATORY Lymphocytes % 45.2 % [facility] LABORATORY Lymphocytes Abs 1.7 0.9 - 3.2 [facility] x10(3)/[facility] LABORATORY Monocytes % 8.8 % [facility]ORATORY Monocyte Abs 0.3 0.3 - 0.9 [facility] x10(3)/[facility] LABORATORY Eosinophils % 0.5 % [facility]OR[facility]ORY Eosinophils Abs 0.0 0.0 - 0.4 [facility] x10(3)/[facility] LABORATORY Basophils % 0.8 % [facility]ORATORY Basophils Abs 0.0 0.0 - 0.1 [facility] x10(3)/[facility] LABORATORY Immature Gran % 1.00 % [facility] Comment: Immature granulocytes(IG's)percentage an d absolute count will include metamyelocytes, myelocytes, and promyelo cytes. Blood smears from CBCs yielding IG's will be scanned manually for concor dance. If this scan disagrees with the automated IG or if promyelocytes are not ed, a manual differential will be performed. Anneliese Gran Abs 0.04 0.00 - 0.04 x10(3)/[facility] MAR Y [facility] LABORATORY Specimen Anatomical Collection Method Collection Time Receive d Time (Source) Location / / Volume Laterality Blood specimen 12/23/2019 12:20 05/13/202 0 (specimen) AM EDT 12:32 AM EDT Resulting Agency Comment Spec In Lab Bubba Sinclair MD HEMATOLOGY ORDERABLES Performing Organization Address City/State/ZIP Code Phon e Number [address] (ABNORMAL) Hemogram (12/23/2019 12:20 AM EDT) Analysis Performed At Patho logist Time Signature WBC 3.8 (L) 4.0 - 9.5 [facility] x10(3)/[facility] LABORATORY RBC 3.12 (L) 4.58 - [facility] 5.54 [facility] x10(6)/[facility] LABORATORY Hemoglobin 9.6 (L) 13.7 - [facility] 16.5 gm/dL [facility] Hematocrit 27.7 (L) 40.5 - [facility] 48.5 % [facility] MCV 88.8 82.9 - [facility] 93.1 [facility] LABORATORY MCH 30.8 27.5 - [facility] 32.1 pg [facility] MCHC 34.7 32.0 - [facility] 35.7 gm/dL [facility] Platelets 157 145 - 357 [facility] x10(3)/[facility] LABORATORY RDWSD 47.8 (H) 36.0 - [facility] 45.0 [facility] LABORATORY RDWCV 14.7 (H) 11.4 - [facility] 13.8 % [facility] LABORATORY MPV 11.8 7.6 - 12.[address] [facility] LABORATORY nRBC % Auto 0.0 % [facility] LABORATORY nRBC Abs Auto 0.000 0.000 - [facility] 0.000 [facility] x10(3)/[facility] LABORATORY Specimen Anatomical Collection Method Collection Time Receive d Time (Source) Location / / Volume Laterality Blood specimen 12/23/2019 12:20 0 (specimen) AM EDT 12:32 AM EDT Resulting Agency Comment Spec In Lab Bubba Sinclair MD HEMATOLOGY ORDERABLES Performing Organization Address City/State/[place] [address] Phosphorus (12/23/2019 12:20 AM EDT) athologist Signature Phosphorus 2.6 2.5 - 4.5 [facility] mg/dL [facility] Specimen Anatomical Collection Method Collection Time Receive d Time (Source) Location / / Volume Laterality Blood specimen 12/23/2019 12:20 0 (specimen) AM EDT 12:32 AM EDT Resulting Agency Comment Spec In Lab Magali Jo MD CHEMISTRY ORDERABLES Performing Organization Address City/[facility]/ZIP Code Phon e Number [address] Magnesium (12/23/2019 12:20 AM EDT) athologist Signature Magnesium 0.78 0.69 - 1.07 [facility] mmol/L [facility] Specimen Anatomical Collection Method Collection Time Receive d Time (Source) Location / / Volume Laterality Blood specimen 12/23/2019 12:20 0 (specimen) AM EDT 12:32 AM EDT Resulting Agency Comment Spec In Lab Magali oJ MD CHEMISTRY ORDERABLES Performing Organization Address City/State/ZIP Code Phon e Number [address] (ABNORMAL) Basic Metabolic Panel (non-fasting) (12/23/2019 12:20 AM EDT) athologist Signature Glucose Lvl 179 65 - 199 [facility] mg/dL [facility] Comment: Diabetes: >=200 mg/dL plus symp toms BUN 11 10 - 20 mg/dL [facility] LABORATORY Creatinine 0.72 (L) 0.80 - 1.50 mg/dL [facility] Sodium 135 135 - 145 mmol/L [facility] LABORATORY Potassium Not Perf 3.5 - 5.0 [facility] LABORATORY Comment: Unable to quantitate due to sample hemol ysis. ??Sample redraw suggested. Called by: marichuy, Read back by: Antonia Costello, Date/Time:12/23/19 01:07. Please note: ??Patients with WBC >100,00 0 may have falsely elevated Potassium levels. ??For accurate Potassium quantif ication in these patients send serum separator tube (gold top) for subsequent determinations. ??Contact the Clinical Chemistry Laboratory if there are any qu estions. Chloride 102 98 - 107 mmol/L [facility]ORAT[facility] CO2 22 22 - 31 mmol/L [facility] Anion Gap 11 5 - 15 mmol/L [facility] Calcium 8.2 (L) 8.5 - 10.5 mg/dL [facility] LABORATORY Estimated GFR 99 >=60 mL/min/1.73 m?? [facility] Comment: The eGFR was calculated using the CKD-EP I equation. As with all creatinine based estimates of kidney function, eGFR values calculated with the CKD-EPI equation are not accurate in patients wi th acute kidney failure, extremes of body mass or the acutely ill. [email or web address] eGFR 114 >=60 mL/min/1.73 m?? [facility]ORAT[facility] Comment: The eGFR was calculated using the CKD-EP I equation. As with all creatinine based estimates of kidney function, eGFR values calculated with the CKD-EPI equation are not accurate in patients wi th acute kidney failure, extremes of body mass or the acutely ill. [email or web address] Specimen Anatomical Collection Method Collection Time Receive d Time (Source) Location / / Volume Laterality Blood specimen 12/23/2019 12:20 0 (specimen) AM EDT 12:32 AM EDT Resulting Agency Comment Spec In Lab Magali Jo MD CHEMISTRY ORDERABLES Performing Organization Address City/State/[place] [address] POCT Glucose (12/22/2019 11:52 PM EDT) P athologist Signature POC Glucose 166 65 - 199 [facility] mg/dL [facility] Comment: Supplemental ranges: <140 mg/dL before meals <180 mg/dL all other times of the day Specimen Anatomical Collection Method Collection Time Receive d Time (Source) Location / / Volume Laterality Blood specimen 12/22/2019 11:52 0 (specimen) PM EDT 11:52 PM EDT Magali Jo MD POINT OF CARE TEST ORDERABLE S Performing Organization Address City/[facility]/[place] [address] POCT Glucose (12/22/2019 7:42 PM EDT) athologist Signature POC Glucose 138 65 - 199 [facility] mg/dL [facility] Comment: Supplemental ranges: <140 mg/dL before meals <180 mg/dL all other times of the day Specimen Anatomical Collection Method Collection Time Receive d Time (Source) Location / / Volume Laterality Blood specimen 12/22/2019 7:42 PM 020 7:42 (specimen) EDT PM EDT Magali Jo MD POINT OF CARE TEST ORDERABLE S Performing Organization Address City/[facility]/[place] [address] POCT Glucose (12/22/2019 4:23 PM EDT) athologist Signature POC Glucose 135 65 - 199 [facility] mg/dL [facility] Comment: Supplemental ranges: <140 mg/dL before meals <180 mg/dL all other times of the day Specimen Anatomical Collection Method Collection Time Receive d Time (Source) Location / / Volume Laterality Blood specimen 12/22/2019 4:23 PM 020 4:23 (specimen) EDT PM EDT Magali Jo MD POINT OF CARE TEST ORDERABLE S Performing Organization Address City/State/[place] [address] Lyme IgG & IgM Antibody (12/22/2019 12:30 PM EDT) athologist Signature Lyme Screening Neg Neg [facility] LABORATORY Specimen Anatomical Collection Method Collection Time Receive d Time (Source) Location / / Volume Laterality Blood specimen 12/22/2019 12:30 0 7:09 (specimen) PM EDT AM EDT Resulting Agency Comment Spec In Lab Magali Jo MD IMMUNOLOGY ORDERABLES Performing Organization Address City/State/[place] [address] POCT Glucose (12/22/2019 11:29 AM EDT) athologist Signature POC Glucose 153 65 - 199 [facility] mg/dL [facility] Comment: Supplemental ranges: <140 mg/dL before meals <180 mg/dL all other times of the day Specimen Anatomical Collection Method Collection Time Receive d Time (Source) Location / / Volume Laterality Blood specimen 12/22/2019 11:29 0 (specimen) AM EDT 11:29 AM EDT Magali Jo MD POINT OF CARE TEST ORDERABLE S Performing Organization Address City/[facility]/[place] [address] POCT Glucose (12/22/2019 7:48 AM EDT) athologist Signature POC Glucose 173 65 - 199 [facility] mg/dL [facility] Comment: Supplemental ranges: <140 mg/dL before meals <180 mg/dL all other times of the day Specimen Anatomical Collection Method Collection Time Receive d Time (Source) Location / / Volume Laterality Blood specimen 12/22/2019 7:48 AM 020 7:48 (specimen) EDT AM EDT Magali Jo MD POINT OF CARE TEST ORDERABLE S Performing Organization Address City/State/[place] [address] Triglyceride (12/22/2019 1:15 AM EDT) athologist Signature Triglycerides 369 mg/dL [facility] Comment: Average Risk/Lower Risk: <150 mg/dL Borderline High Risk: 150-199 mg/dL High Risk: 200-499 mg/dL Very High Risk: >px=513 mg/dL Specimen Anatomical Collection Method Collection Time Receive d Time (Source) Location / / Volume Laterality Blood specimen Venous Draw / 12/22/2019 1:15 AM 2019 1:24 (specimen) Unknown EDT AM EDT Resulting Agency Comment Spec In Lab Kavon Sheldon MD CHEMISTRY ORDERABLES Performing Organization Address City/State/ZIP Code Phon e Number [address] CK (12/22/2019 1:15 AM EDT) athologist Signature CK, Total 126 0 - 200 [facility] unit/L [facility]ORY Specimen Anatomical Collection Method Collection Time Receive d Time (Source) Location / / Volume Laterality Blood specimen Venous Draw / 12/22/2019 1:15 AM 2019 1:24 (specimen) Unknown EDT AM EDT Resulting Agency Comment Spec In Lab Emerita Sandhu MD CHEMISTRY ORDERABLES Performing Organization Address City/[facility]/ZIP Code Phon e Number [address] Scan, Peripheral Blood (12/22/2019 1:15 AM EDT) [facility] gist Method Time Signature Plat Estimate Decreased [facility] RBC Morphology Normal [facility] Atypical Lymph Moderate [facility] Giant Less than 1 /HPF [facility] LABORATORY Specimen Anatomical Collection Method Collection Time Receive d Time (Source) Location / / Volume Laterality Blood specimen 12/22/2019 1:15 AM 020 1:24 (specimen) EDT AM EDT Resulting Agency Comment Spec In Lab Bubba Sinclair MD HEMATOLOGY ORDERABLES Performing Organization Address City/[facility]/ZIP Code Phon e Number [address] (ABNORMAL) Differential, Automated (12/22/2019 1:15 AM EDT) athologist Signature Neutrophils % 45.4 % [facility]OR[facility] Neutr Abs (ANC) 2.69 1.70 - [facility] 6.10 [facility] x10(3)/[facility] LABORATORY Lymphocytes % 37.1 % [facility] LABORATORY Lymphocytes Abs 2.2 0.9 - 3.2 [facility] x10(3)/[facility] LABORATORY Monocytes % 14.9 % [facility] LABORATORY Monocyte Abs 0.9 0.3 - 0.9 [facility] x10(3)/[facility] LABORATORY Eosinophils % 0.2 % [facility] Eosinophils Abs 0.0 0.0 - 0.4 [facility] x10(3)/[facility] LABORATORY Basophils % 0.7 % [facility] LABORATORY Basophils Abs 0.0 0.0 - 0.1 [facility] x10(3)/[facility] LABORATORY Immature Gran % 1.70 % [facility] Comment: Immature granulocytes(IG's)percentage an d absolute count will include metamyelocytes, myelocytes, and promyelo cytes. Blood smears from CBCs yielding IG's will be scanned manually for concor dance. If this scan disagrees with the automated IG or if promyelocytes are not ed, a manual differential will be performed. Anneliese Gran Abs 0.10 (H) 0.00 - 0.04 x10(3)/[facility] LABORATORY Specimen Anatomical Collection Method Collection Time Receive d Time (Source) Location / / Volume Laterality Blood specimen 12/22/2019 1:15 AM 020 1:24 (specimen) EDT AM EDT Resulting Agency Comment Spec In Lab Bubba Sinclair MD HEMATOLOGY ORDERABLES Performing Organization Address City/State/ZIP Code Phon e Number [place] [id number] HOSP[address] LAB[address]ATORY Drive (ABNORMAL) Hemogram (12/22/2019 1:15 AM EDT) Analysis Performed At Patho logist Time Signature WBC 5.9 4.0 - 9.5 [facility] x10(3)/[facility] LABORATORY RBC 3.64 (L) 4.58 - [facility] 5.54 [facility] x10(6)/[facility] LABORATORY Hemoglobin 10.9 (L) 13.7 - [facility] 16.5 gm/dL [facility] Hematocrit 32.6 (L) 40.5 - [facility] MCV 89.6 82.9 - [facility] 93.1 fL [facility] MCH 29.9 27.5 - [facility] 32.1 pg [facility] MCHC 33.4 32.0 - [place] CAPONE 35.7 gm/dL [facility] Platelets 117 (L) 145 - 357 [facility] x10(3)/[facility] LABORATORY RDWSD 46.2 (H) 36.0 - [place] ESTELITA 45.0 [facility] LABORATORY RDWCV 14.1 (H) 11.4 - [facility] ESTELITA 13.8 % [facility]OR[facility] MPV 11.9 7.6 - 12.9 [facility] LABORATORY nRBC % Auto 0.0 % [facility] LABORATORY nRBC Abs Auto 0.000 0.000 - [place] ESTELITA 0.000 [facility] x10(3)/[facility] LABORATORY Specimen Anatomical Collection Method Collection Time Receive d Time (Source) Location / / Volume Laterality Blood specimen 12/22/2019 1:15 AM 020 1:24 (specimen) EDT AM EDT Resulting Agency Comment Spec In Lab Bubba Sinclair MD HEMATOLOGY ORDERABLES Performing Organization Address City/[facility]/ZIP Code Phon e Number [address] Phosphorus (12/22/2019 1:15 AM EDT) P athologist Signature Phosphorus 2.5 2.5 - 4.[address] [facility] ESTELITA mg/dL [facility] Specimen Anatomical Collection Method Collection Time Receive d Time (Source) Location / / Volume Laterality Blood specimen 12/22/2019 1:15 AM 020 1:24 (specimen) EDT AM EDT Resulting Agency Comment Spec In Lab Magali Jo MD CHEMISTRY ORDERABLES Performing Organization Address City/State/ZIP Code Phon e Number [address] Magnesium (12/22/2019 1:15 AM EDT) P athologist Signature Magnesium 0.88 0.69 - 1.[address] [facility] ESTEL[place] mmol/L [facility] Specimen Anatomical Collection Method Collection Time Receive d Time (Source) Location / / Volume Laterality Blood specimen 12/22/2019 1:15 AM 020 1:24 (specimen) EDT AM EDT Resulting Agency Comment Spec In Lab Magali Jo MD CHEMISTRY ORDERABLES Performing Organization Address City/State/[place] [address] (ABNORMAL) Basic Metabolic Panel (non-fasting) (12/22/2019 1:15 AM EDT) P athologist Signature Glucose Lvl 180 65 - 199 [facility] mg/dL [facility] Comment: Diabetes: >=200 mg/dL plus symp toms BUN 12 10 - 20 mg/dL [facility] LABORATORY Creatinine 0.73 (L) 0.80 - 1.50 mg/dL [facility] LABORATORY Sodium 136 135 - 145 mmol/L [facility] LABORATORY Potassium 4.3 3.5 - 5.0 mmol/L [facility] LABOR[facility]ORY Comment: Please note: ??Patients with WBC >100,00 0 may have falsely elevated Potassium levels. ??For accurate Potassium quantif ication in these patients send serum separator tube (gold top) for subsequent determinations. ??Contact the Clinical Chemistry Laboratory if there are any qu estions. Chloride 99 98 - 107 mmol/L [facility]ORY CO2 21 (L) 22 - 31 mmol/L [facility] Anion Gap 16 (H) 5 - 15 mmol/L [facility]ORY Calcium 7.8 (L) 8.5 - 10.5 mg/dL [facility] LABORATORY Estimated GFR 98 >=60 mL/min/1.73 m?? [facility] Comment: The eGFR was calculated using the CKD-EP I equation. As with all creatinine based estimates of kidney function, eGFR values calculated with the CKD-EPI equation are not accurate in patients wi th acute kidney failure, extremes of body mass or the acutely ill. [email or web address]/DHMCnkf eGFR 114 >=60 mL/min/1.73 m?? [facility] Comment: The eGFR was calculated using the CKD-EP I equation. As with all creatinine based estimates of kidney function, eGFR values calculated with the CKD-EPI equation are not accurate in patients wi th acute kidney failure, extremes of body mass or the acutely ill. http://[employer]/[facility]nkf Specimen Anatomical Collection Method Collection Time Receive d Time (Source) Location / / Volume Laterality Blood specimen 12/22/2019 1:15 AM 020 1:24 (specimen) EDT AM EDT Resulting Agency Comment Spec In Lab Magali Jo MD CHEMISTRY ORDERABLES Performing Organization Address City/State/ZIP Code [place] [address] Non-Public Health Epidemiologist Final Report (12/21/2019 2:40 PM EDT) Component Value Ref Test Analysis Performed At [facility] gist Range Method Time Signature Non-Public Health Epidemiologist Final [id number] ? Location: IC3N; IC39; A [facility] The signing pathologist has (i) examined the relevant preparation(s) for the [facility] specimen(s) and (ii) rendered or confirmed the diagnosis(es) . HOSPITAL LABORATORY . ? No n-Public Health Epidemiologist Final DIAGNOSIS See Discussion Electronically signed by: ??Celestina SANTIAGO, Alban Verified: ??12/25/2019 ?Hematopathologist Performed at: ??-[facility] Dept. of Pathology, [place], [place] DISCUSSION Cerebrospinal fluid, lumbar: predominantly lymphocytes histiocytes; likely reactive . Should lymphoma be a clinic al consideration, ??suggest LLS ( lymphoma leukemia screen) studies . ??LLS jodee dy is optimal for evaluation of abnormal lymphocytic infiltrates and blasts in fluid specimens. CLINICAL INFORMATION Specimen Source : Cerebrospinal fluid, lumbar Pertinent Clinical Data and Significant Therapy: 64 YO with parkinson's disease, worsening AMS Clinical Impression : Likely infectious Pertinent Radiologic Findings ??: (not provided) Gross Description: Received ??fresh approximately 3 mL tota l volume of ?? clear, colorless fluid. Total Preparation: Cytospin 2. ?? [id number] Specimen (Source) Anatomical Collection Method Collection Time Re ceived Time Location / / Volume Laterality 12/21/2019 2:40 PM EDT Emerita Sandhu MD PATHOLOGY/CYTOLOGY ORDERABLE S Performing Organization Address City/[facility]/ZIP [facility] Phon e Number [address] CSF DESC 4 (12/21/2019 2:40 PM EDT) [facility] gist Method Time Signature Tube Num CSF 4 [place] GOMEZESTELITA #4 [facility] Color CSF #4 Yellow Colorless [facility] Appear CSF #4 Slightly Clear [place] LABORATORY Tot Vol CSF 7.[address] [facility] ESTELITA #4 [facility] Specimen (Source) Anatomical Collection Method Collection Time Re ceived Time Location / / Volume Laterality Cerebrospinal fluid Other / Unknown 12/21/2019 2:40 sample (specimen) PM EDT 3:18 PM ED T Resulting Agency Comment Spec In Lab Emerita Sandhu MD BODY FLUIDS AND STOOLS ORDER SHEKHAR Performing Organization Address City/[facility]/[place] [address] CSF DESC 3 (12/21/2019 2:40 PM EDT) [facility] [employer] Method Time Signature Tube Num CSF 3 [place] GOMEZESTELITA #3 [facility] Color CSF #3 Yellow Colorless [facility] Appear CSF #3 Slightly Clear [place] LABORATORY Tot Vol CSF 3.[address] [facility] ESTELITA #3 [facility] Specimen (Source) Anatomical Collection Method Collection Time Re ceived Time Location / / Volume Laterality Cerebrospinal fluid Other / Unknown 12/21/2019 2:40 sample (specimen) PM EDT 3:17 PM ED T Resulting Agency Comment Spec In Lab Emerita Sandhu MD BODY FLUIDS AND STOOLS ORDER SHEKHAR Performing Organization Address City/[facility]/[place] [address] CSF DESC 2 (12/21/2019 2:40 PM EDT) [facility] [employer] Method Time Signature Tube Num CSF 2 [place] #2 [facility] Color CSF #2 Colorless Colorless [facility] Appear CSF #2 Clear Clear [facility] Tot Vol CSF #2 3.0 mL [facility] Specimen (Source) Anatomical Collection Method Collection Time Re ceived Time Location / / Volume Laterality Cerebrospinal fluid Other / Unknown 12/21/2019 2:40 sample (specimen) PM EDT 3:17 PM ED T Resulting Agency Comment Spec In Lab Emerita Sandhu MD BODY FLUIDS AND STOOLS ORDER SHEKHAR Performing Organization Address City/[facility]/ZIP Code Phon e Number [address] (ABNORMAL) CSF Cell Count (12/21/2019 2:40 PM EDT) P athologist Signature Tube # Ct CSF 4 [facility] Nucleated CSF 7 (H) 0 - 5 /mcl [facility] Comment: If Nucleated CSF CT result equals Zero, no smear is made and no Differential is performed. If Nucleated CSF CT result is 1-5 / mcL, a smear is made and scanned but no results are reported unless abnormalitie s are noted. If Nucleated CSF CT result is 6 /mcL or greater, a smear is made and manual differential is performed and reported. Nucleated CSF CT results on a CSF fluid must be correlated with clinical condition. RBC CSF CT 5 /mcl [facility]ORY Neutrophil CSF 5 % [facility] Lymphocyte CSF 85 % [facility] Macrophage CSF 10 % [facility] Specimen (Source) Anatomical Collection Method Collection Time Re ceived Time Location / / Volume Laterality Cerebrospinal fluid Other / Unknown 12/21/2019 2:40 sample (specimen) PM EDT 3:17 PM ED T Resulting Agency Comment Spec In Lab Emerita Sandhu MD BODY FLUIDS AND STOOLS ORDER SHEKHAR Performing Organization Address City/[facility]/ZIP Code Phon e Number [place], [place] [id number] [place] [address] CSF DESC 1 (12/21/2019 2:40 PM EDT) Patholo gist Method Time Signature Tube Num CSF 1 [facility] #1 [facility] Color CSF #1 Yellow Colorless [facility] Appear CSF #1 Slightly Clear [place] EST[facility]ITA [facility] Tot Vol CSF 3.0 mL [place] #1 [facility] Specimen (Source) Anatomical Collection Method Collection Time Re ceived Time Location / / Volume Laterality Cerebrospinal fluid Other / Unknown 12/21/2019 2:40 sample (specimen) PM EDT 3:17 PM ED T Resulting Agency Comment Spec In Lab Emerita Sandhu MD BODY FLUIDS AND STOOLS ORDER SHEKHAR Performing Organization Address City/State/[place] [address] EBV PCR Qualitative, CSF (12/21/2019 2:32 PM EDT) Component Value Ref Test Analysis Performed At [facility] Range Method Time Signature EBV PCR, [place]ATTIE Qual Test ? Result ?Flag ??Unit ??RefValue ESTELITA [facility] Seferino-Aleman Virus PCR HOSPITA L ??Specimen Source ?CSF LABORATORY ??Seferino-Aleman Virus PCR ? Negative ?Negative ? ADDITIONAL INFORMATION ------ ?This test was developed using an analyte specific reag ent. ?Its performance characteristics were determined by Jessica o ?Clinic in a manner consistent with CLIA requirements. This ?test has not been cleared or approved by the U.S. Food and ?Drug Administration. ?Test Performed by: ?[facility] ?[address] [place] [address] ?Drapery Counselor: Rosendo Yin M.D. Ph.D.; CLIA# [id number] Specimen (Source) Anatomical Collection Method Collection Time Re ceived Time Location / / Volume Laterality Cerebrospinal fluid Other / Unknown 12/21/2019 2:32 sample (specimen) PM EDT 4:15 PM ED T Resulting Agency Comment Spec In Lab Emerita Sandhu MD MICROBIOLOGY - GENERAL ORDER SHEKHAR Performing Organization Address City/State/[place] [address] VZV PCR, CSF (12/21/2019 2:32 PM EDT) Component Value Ref Test Analysis Performed At [facility] gist Range Method Time Signature Varicella-Zo PATTIE ster PCR Test ?Result ? Flag ??Unit ??RefValue [facility] Varicella-Zoster Virus PCR HOS PITAL ??Specimen Source ? CSF LABORATORY ??Varicella-Zoster Virus PC R ?Negative ? Negative ? ADDITIONAL INFORMATION ------ ?This test was developed and its performance characteri stics ?determined by [facility] in a manner consistent with CLIA ?requirements. This test has not been cleared or approv ed by ?the U.S. Food and Drug Administration. ?Test Performed by: ?[facility] ?[address] [place] [address] ?Drapery Counselor: Rosendo Yin M.D. Ph.D.; CLIA# [id number] Specimen (Source) Anatomical Collection Method Collection Time Re ceived Time Location / / Volume Laterality Cerebrospinal fluid 12/21/2019 2:32 12/23 sample (specimen) PM EDT 8:45 AM ED T Resulting Agency Comment Spec In Lab Magali Jo MD MICROBIOLOGY - GENERAL ORDER SHEKHAR Performing Organization Address [facility] Phon e Number [address] Cryptococcal Antigen CSF ([facility]/CGP/APD) (12/21/2019 2:32 PM EDT) [employer] Method Time Signature CSF Cryptococcal Negative Negative [facility] LABORATORY Specimen (Source) Anatomical Collection Method Collection Time Re ceived Time Location / / Volume Laterality Cerebrospinal fluid 12/21/2019 2:32 12/20 sample (specimen) PM EDT 4:58 PM ED T Resulting Agency Comment Spec In Lab Magali Jo MD MICROBIOLOGY - GENERAL ORDER SHEKHAR Performing Organization Address City/[facility]/ZIP Code Phon e Number [address] Body Fluid HOLD Cerebrospinal Fluid (12/21/2019 2:32 PM EDT) [employer] gist Method Time Signature Hold BF Type Sample in [facility]. [facility] Specimen Anatomical Collection Method Collection Time Receive d Time (Source) Location / / Volume Laterality Body fluid 12/21/2019 2:32 PM 0 3:02 sample EDT PM EDT (specimen) Magali Jo MD BODY FLUIDS AND STOOLS ORDER SHEKHAR Performing Organization Address City/[facility]/[place] [address] Fungus culture Cerebrospinal Fluid (12/21/2019 2:32 PM EDT) [facility] [employer] Method Time Signature Fungus No Fungus [facility] Culture isolated [facility] Specimen (Source) Anatomical Collection Method Collection Time Re ceived Time Location / / Volume Laterality Cerebrospinal fluid 12/21/2019 2:32 12/20 sample (specimen) PM EDT 3:59 PM ED T Resulting Agency Comment Spec In Lab Magali Jo MD MICROBIOLOGY - GENERAL ORDER SHEKHAR Performing Organization Address City/[facility]/ZIP Code Phon e Number [address] HSV 1 and 2 PCR (12/21/2019 2:32 PM EDT) [facility] [employer] Method Time Signature HSV-1 PCR Not Detected Not Detected [facility] HSV-2 PCR Not Detected Not Detected [facility] HSV Source CSF [facility] Comment: The only FDA approved specimen types for this assay are CSF and genital lesions. Specimen (Source) Anatomical Collection Method Collection Time Re ceived Time Location / / Volume Laterality Cerebrospinal fluid 12/21/2019 2:32 12/20 sample (specimen) PM EDT 3:59 PM ED T Comment: Specimen Type:->Cerebrospinal F luid Resulting Agency Comment Spec In Lab Magali Jo MD MICROBIOLOGY - GENERAL ORDER SHEKHAR Performing Organization Address City/[facility]/[place] [address] CSF Culture (12/21/2019 2:32 PM EDT) Component Value Ref Test Analysis Performed At [facility] [employer] Range Method Time Signature Central No growth [facility] Nervous [facility] LABORATORY Gram Stain Cytocentrifuge Gram Stain performed [facility] No Neutrophils seen. GER[facility]W No microorganisms seen. [facility] LABORAT[facility] Specimen (Source) Anatomical Collection Method Collection Time Re ceived Time Location / / Volume Laterality Cerebrospinal fluid 12/21/2019 2:32 12/20 sample (specimen) PM EDT 3:59 PM ED T Resulting Agency Comment Spec In Lab Magali Jo MD MICROBIOLOGY - GENERAL ORDER SHEKHAR Performing Organization Address City/[facility]/[place] [address] Glucose Level CSF (12/21/2019 2:32 PM EDT) P athologist Signature Glucose, CSF 94 mg/dL [facility] Comment: CSF at equilibrium equals appro ximately 60-80% of plasma glucose. Specimen (Source) Anatomical Collection Method Collection Time Re ceived Time Location / / Volume Laterality Cerebrospinal fluid 12/21/2019 2:32 12/20 sample (specimen) PM EDT 3:02 PM ED T Resulting Agency Comment Spec In Lab Magali Jo MD BODY FLUIDS AND STOOLS ORDER SHEKHAR Performing Organization Address City/[facility]/[place] [address] (ABNORMAL) Protein Level CSF (12/21/2019 2:32 PM EDT) Analysis Performed At Patho logist Time Signature T Protein, CSF 108 (H) 15 - 45 [facility]dL [facility] Xanthochromia Neg [facility] Specimen (Source) Anatomical Collection Method Collection Time Re ceived Time Location / / Volume Laterality Cerebrospinal fluid 12/21/2019 2:32 12/20 sample (specimen) PM EDT 3:02 PM ED T Resulting Agency Comment Spec In Lab Magali Jo MD BODY FLUIDS AND STOOLS ORDER SHEKHAR Performing Organization Address City/[facility]/[place] [address] ECHOCARDIOGRAM COMPLETE (12/21/2019 2:26 PM EDT) P athologist Signature EF 75 [facility] Specimen (Source) Anatomical Location Collection Method / Collectio n Time Received Time / Laterality Volume 12/21/2019 Narrative [facility] - 12/21/2019 3:21 PM EDT Procedure: ?Transthoracic Echocardiogram Patient: ?SHARLENE EDWARDS R ?(Age): 1955(64y) Med Rec#: ? [id number] ?Sex: ?M ? Site Loc: ? [facility] ?Ht / Wt: ??180(cm)/104(kg) Pt. Loc: ?ICU ? BSA: ?2.23 Study Date: ?? 12/21/2019 ?Pt. Type: Inpatient Tape: ? Referring: Magali Jo Referring: BIBI Reading: Giovanni Jade ([id number]) Health Assessment And Treatment Teacher: Kati Rios Diagnosis: *Unspecified atrial fibrillation (I48.9 1) BP: ? 116/65 SUMMARY: 1. Rhythm: AF with RVR. 2. The left ventricular chamber size is normal. ??Mild concentric left ventricular hypertrophy is observed. ??B amari septal hypertrophy is observed (2 cm). ??Global left ventricul ar systolic function appears hyperdynamic. ??Ejection fraction is est imated to be 75%. ??There are no left ventricular segmental wall motion a bnormalities. 3. The right ventricle is normal in size . ??Right ventricular global systolic function is normal. ??Pulmonary artery hypertension could not be assessed due to inadequate tricuspid reg urgitation jet. 4. There is no hemodynamically significa nt valve disease. 5. There is mild dilatation of the aorti c root (4.1 cm). 6. See remainder of report for additiona l findings. Findings ? : Study Quality: ? Technically limited Left Ventricle: ? The left ventricul ar chamber size is normal. ?Mild concentric left ventricular h ypertrophy is observed. ?Basal septal hypertrophy is observ ed.2 cm ?No ventricular septal defect is vi sualized. ?Global left ventricular systolic f unction appears hyperdynamic. Ejection fraction is estimated to be 75% . ?There are no left ventricular segm ental wall motion abnormalities. ?Doppler assessment is consistent w ith normal left sided filling pressure. Left Atrium: ? The left atrium is se verely dilated. Right Ventricle: ? The right ventric le is normal in size. ?Right ventricular global systolic function is normal. ?Pulmonary artery hypertension coul d not be assessed due to inadequate tricuspid regurgitation jet. ?The estimated right atrial pressur e is 8 mmHg. Right Atrium: ? The right atrium slick ears normal. Aortic Valve: ? The aortic valve is tricuspid. ?The aortic valve leaflets are mild ly thickened. ?Systolic excursion of the aortic v alve is normal. ?There is aortic annular calcificat ion. ?There is no evidence of aortic ori ve stenosis. ?There is no evidence of aortic reg urgitation. Mitral Valve: ? The mitral valve slick ears normal in structure and function. ?There is trace mitral regurgitatio n present. Tricuspid Valve: ? The tricuspid ori ve appears normal in structure and function. ?There is trace tricuspid regurgita tion present. Pulmonic Valve: ? The pulmonic valve is not well visualized. Pericardium: ? A trivial pericardial effusion is visualized. Aorta: ? There is mild dilatation of the aortic root. 4.1 cm. ?The ascending aorta is normal in s ize. Pulmonary Artery: ? The main pulmona ry artery is not well visualized. Venous: ? The inferior vena cava slick ears normal in size. ?There is less than 50% respiratory change in the inferior vena cava dimension consistent with elevated right atrial pressure. Misc: ? There is no hemodynamically significant valve disease. ?See remainder of report for additi onal findings. ?Two-dimensional echo, spectral Dop pler and color Doppler performed. Chambers 2D ?Value ?Units (Range) ? IVSd (2D) ? 2.04 ? cm ? LVPWd (2D) ?1.45 ? cm ? IVS:LVPW ratio (2D) 1.41 ? ratio ? RWT (2D) ?1.15 ? ratio ? RWT PW (2D) ? 0.96 ? ratio ? LVIDd (2D) ?3.03 ? cm ? LVIDs (2D) ?1.99 ? cm ? LVIDd (2D) index ?1.36 ? cm/m2 ? LVIDs (2D) index ?0.89 ? cm/m2 ? LV FS (2D) ?34.48 ?% ? EF Teichholz (2D) ?? 65.16 ?% ? Ao root diameter (2D4.1 ?cm (2.1 - 3.6) ? Ascending Ao ?3.3 ?cm (2 - 3.5) ? Volumes/Mass ?Value ?Units (Range) ? LA Area 4 CH ?28 ? cm2 (<21) ? LA ESV BP (A/L) inde51.28 ? ml/m2 ? RA AREA 4CH ? 14.5 ? cm2 ? LV mass (2D) ?207.84 ? g ? LV mass (2D) index ??93.12 ?g/m2 ? Diastolic/Systolic Function ?Value ?Units (Range) ? MV E-wave Vmax ?0.82 ? m/sec ? LV septal e' Vmax ?? 0.09 ? m/sec ? LV lateral e' Vmax ??0.15 ? m/sec ? LV average e' Vmax ??0.12 ? m/sec ? LV E:e' septal ratio9.11 ? ratio ? LV E:e' lateral rati5.46 ? ratio ? LV average E:e' rati6.83 ? ratio ? Tricuspid Valve ?Value ?Units (Range) ? RAP ? 8 ?mmHg ? Wall Motion: Segment Name ?Rest ? Base-Anteroseptal ?? Normal ? Base-Anterior ? Normal ? Base-Anterolateral ??Normal ? Base-Posterolateral Normal ? Base-Inferior ? Normal ? Base-Inferoseptal ?? Normal ? Mid-Anteroseptal ?Normal ? Mid-Anterior ?Normal ? Mid-Anterolateral ?? Normal ? Mid-Posterolateral ??Normal ? Mid-Inferior ?Normal ? Mid-Inferoseptal ?Normal ? [place]-Septal ? Normal ? [place]-Anterior ? Normal ? [place]-Lateral ?Normal ? [place]-Inferior ? Normal ? [place]-Tip ?Normal ? This report has been electronically sign ed by: _ Giovanni Jade MD ? 12/21/2019 1 5:21:03 Images reviewed and interpretation verif ied [facility] Cardiac Ultrasound Laboratory Procedure Note Giovanni Jade MD - 12/21/2019Format ting of this note might be different from the original. Procedure: Transthoracic Echocardiogram Patient: SHARLENE Da Silva (Age): 1955(64y) Med Rec#: [id number] Sex: M Site Loc: [facility] Ht / Wt: 180(cm)/104(kg) Pt. Loc: ICU BSA: 2.23 Study Date: 12/21/2019 Pt. Type: Inpatie nt Tape: Referring: Magali Jo Referring: BIBI Reading: Giovanni Jade ([id number]) Health Assessment And Treatment Teacher: Kati Rios Diagnosis: *Unspecified atrial fibrillation (I48.9 1) BP: 116/65 SUMMARY: 1. Rhythm: AF with RVR. 2. The left ventricular chamber size is normal. Mild concentric left ventricular hypertrophy is observed. Bas al septal hypertrophy is observed (2 cm). Global left ventricular systolic function appears hyperdynamic. Ejection fraction is estim ated to be 75%. There are no left ventricular segmental wall motion a bnormalities. 3. The right ventricle is normal in size . Right ventricular global systolic function is normal. Pulmonary a rtery hypertension could not be assessed due to inadequate tricuspid reg urgitation jet. 4. There is no hemodynamically significa nt valve disease. 5. There is mild dilatation of the aorti c root (4.1 cm). 6. See remainder of report for additiona l findings. Findings : Study Quality: Technically limited Left Ventricle: The left ventricular clarke mber size is normal. Mild concentric left ventricular hypert rophy is observed. Basal septal hypertrophy is observed.2 cm No ventricular septal defect is visuali zed. Global left ventricular systolic functi on appears hyperdynamic. Ejection fraction is estimated to be 75% . There are no left ventricular segmental wall motion abnormalities. Doppler assessment is consistent with n ormal left sided filling pressure. Left Atrium: The left atrium is severely dilated. Right Ventricle: The right ventricle is normal in size. Right ventricular global systolic funct ion is normal. Pulmonary artery hypertension could not be assessed due to inadequate tricuspid regurgitation jet. The estimated right atrial pressure is 8 mmHg. Right Atrium: The right atrium appears n ormal. Aortic Valve: The aortic valve is tricus pid. The aortic valve leaflets are mildly th ickened. Systolic excursion of the aortic valve is normal. There is aortic annular calcification. There is no evidence of aortic valve st enosis. There is no evidence of aortic regurgit ation. Mitral Valve: The mitral valve appears n ormal in structure and function. There is trace mitral regurgitation pre sent. Tricuspid Valve: The tricuspid valve slick ears normal in structure and function. There is trace tricuspid regurgitation present. Pulmonic Valve: The pulmonic valve is no t well visualized. Pericardium: A trivial pericardial effus ion is visualized. Aorta: There is mild dilatation of the a ortic root. 4.1 cm. The ascending aorta is normal in size. Pulmonary Artery: The main pulmonary art constantin is not well visualized. Venous: The inferior vena cava appears n ormal in size. There is less than 50% respiratory raymundo ge in the inferior vena cava dimension consistent with elevated right atrial pressure. Misc: There is no hemodynamically signif icant valve disease. See remainder of report for additional findings. Two-dimensional echo, spectral Doppler and color Doppler performed. Chambers 2D Value Units (Range) IVSd (2D) 2.04 cm LVPWd (2D) 1.45 cm IVS:LVPW ratio (2D) 1.41 ratio RWT (2D) 1.15 ratio RWT PW (2D) 0.96 ratio LVIDd (2D) 3.03 cm LVIDs (2D) 1.99 cm LVIDd (2D) index 1.36 cm/m2 LVIDs (2D) index 0.89 cm/m2 LV FS (2D) 34.48 % EF Teichholz (2D) 65.16 % Ao root diameter (2D4.1 cm (2.1 - 3.6) Ascending Ao 3.3 cm (2 - 3.5) Volumes/Mass Value Units (Range) LA Area 4 CH 28 cm2 (<21) LA ESV BP (A/L) inde51.28 ml/m2 RA AREA 4CH 14.5 cm2 LV mass (2D) 207.84 g LV mass (2D) index 93.12 g/m2 Diastolic/Systolic Function Value Units (Range) MV E-wave Vmax 0.82 m/sec LV septal e' Vmax 0.09 m/sec LV lateral e' Vmax 0.15 m/sec LV average e' Vmax 0.12 m/sec LV E:e' septal ratio9.11 ratio LV E:e' lateral rati5.46 ratio LV average E:e' rati6.83 ratio Tricuspid Valve Value Units (Range) RAP 8 mmHg Wall Motion: Segment Name Rest Base-Anteroseptal Normal Base-Anterior Normal Base-Anterolateral Normal Base-Posterolateral Normal Base-Inferior Normal Base-Inferoseptal Normal Mid-Anteroseptal Normal Mid-Anterior Normal Mid-Anterolateral Normal Mid-Posterolateral Normal Mid-Inferior Normal Mid-Inferoseptal Normal [place]-Septal Normal [place]-Anterior Normal [place]-Lateral Normal [place]-Inferior Normal [place]-Tip Normal This report has been electronically sign ed by: _ Giovanni Jade MD 12/21/2019 15:21:0 3 Images reviewed and interpretation verif ied [facility] Cardiac Ultrasound Laboratory Magali Jo MD ECHO ORDERABLES Performing Organization Address City/State/ZIP Code Phon e Number [facility] Cytopathology Non-Gynecological (12/21/2019 2:22 PM EDT) Specimen Anatomical Collection Method Collection Time Receive d Time (Source) Location / / Volume Laterality AP Specimen 12/21/2019 2:22 PM 0 3:02 EDT PM EDT Narrative [facility] - 12/21/2019 3:02 PM EDT Specimen requisition ordered. ??Separate Pathology report to follow Resulting Agency Comment Spec In Lab Magali Jo MD PATHOLOGY/CYTOLOGY ORDERABLE S Performing Organization Address City/State/[place] [address] Acute Tick Borne Infection Panel (12/21/2019 1:40 PM EDT) [facility] Method Time Signature Anaplasma Not Not PATTIE phagocytophilum Detected Detected [facility] Comment: INTERPRETATION: A positive result indica glenis DNA was detected from Anaplasma phagocytophilum. A negative result indic ates the absence of any detectable DNA from Anaplasma phagocytophilum. METHODS: This test was performed using m [employer] real-time PCR to interrogate DNA isolated from whole blood for the gr oEL gene found in Anaplasma phagocytophilum. The sensitivity of the assay is approximately 10 genome equivalents per PCR reaction. LIMITATIONS AND DISCLAIMERS: Although un likely, rare variants (known or unknown), have the potential to interfer e with the performance of this test, producing false negative or false positi ve results. Additionally, it is possible that this test may provide posi tive results for species closely related to the ones tested for in this a ssay. When results are not consistent with other clinical observations or test results, additional testing should be considered. This test detects DNA sequen rosa and cannot discriminate between live and organisms. This test was developed and its performa nce characteristics determined by the Clinical [facility] and Advanced Technolog y ([facility]AT) Laboratory at [facility]. It has not been cleared or approved by the FDA. The laboratory is regulated under CLIA as qualified to perform high-complexity glenis ting. This test is used for clinical purposes. It should not be regarded as i nvestigational or for research. Ehrlichia chaffeensis PCR Not Detected Not Detected [facility] Comment: INTERPRETATION: A positive result indica glenis DNA was detected from Ehrlichia chaffeensis. A negative result indicates the absence of any detectable DNA from Ehrlichia chaffeensis. METHODS: This test was performed using m [employer]ot[employer] real-time PCR to interrogate DNA isolated from whole blood for the 16 S rRNA gene found in Ehrlichia chaffeensis. The sensitivity of the assa y is approximately 10 genome equivalents per PCR reaction. LIMITATIONS AND DISCLAIMERS: Although un likely, rare variants (known or unknown), have the potential to interfer e with the performance of this test, producing false negative or false positi ve results. Additionally, it is possible that this test may provide posi tive results for species closely related to the ones tested for in this a ssay. When results are not consistent with other clinical observations or test results, additional testing should be considered. This test detects DNA sequen rosa and cannot discriminate between live and organisms. This test was developed and its performa nce characteristics determined by the Clinical [facility] Technolog y (CGAT) Laboratory at [facility]. It has not been cleared or approved by the FDA. The laboratory is regulated under CLIA as qualified to perform high-complexity glenis ting. This test is used for clinical purposes. It should not be regarded as i nvestigational or for research. Babesia microti PCR Not Detected Not Detected [facility] Comment: INTERPRETATION: A positive result indica glenis DNA was detected from Babesia microti. A negative result indicates the absence of any detectable DNA from Babesia microti. METHODS: This test was performed using m ultiplex real-time PCR to interrogate DNA isolated from whole blood for the 18 S rRNA gene found in Babesia microti. The sensitivity of the assay is approxim ately 10 genome equivalents per PCR reaction. LIMITATIONS AND DISCLAIMERS: Although un likely, rare variants (known or unknown), have the potential to interfer e with the performance of this test, producing false negative or false positi ve results. Additionally, it is possible that this test may provide posi tive results for species closely related to the ones tested for in this a ssay. When results are not consistent with other clinical observations or test results, additional testing should be considered. This test detects DNA sequen rosa and cannot discriminate between live and organisms. This test was developed and its performa nce characteristics determined by the Clinical [facility] and [employer] [facility] y (CGAT) Laboratory at [facility]. It has not been cleared or approved by the FDA. The laboratory is regulated under CLIA as qualified to perform high-complexity glenis ting. This test is used for clinical purposes. It should not be regarded as i nvestigational or for research. Borrelia miyamotoi PCR Not Detected Not Detected [facility] Comment: INTERPRETATION: A positive result indica glenis DNA was detected from Borrelia miyamotoi. A negative result indicates t he absence of any detectable DNA from Borrelia miyamotoi. METHODS: This test was performed using m ultiplex real-time PCR to interrogate DNA isolated from whole blood for the fl aB gene found in Borrelia miyamotoi. The sensitivity of the assay is approxim ately 10 genome equivalents per PCR reaction. LIMITATIONS AND DISCLAIMERS: Although un likely, rare variants (known or unknown), have the potential to interfer e with the performance of this test, producing false negative or false positi ve results. Additionally, it is possible that this test may provide posi tive results for species closely related to the ones tested for in this a ssay. When results are not consistent with other clinical observations or test results, additional testing should be considered. This test detects DNA sequen rosa and cannot discriminate between live and organisms. This test was developed and its performa nce characteristics determined by the Clinical [facility] and Advanced Technolog y ([facility]AT) Laboratory at [facility]. It has not been cleared or approved by the FDA. The laboratory is regulated under CLIA as qualified to perform high-complexity glenis ting. This test is used for clinical purposes. It should not be regarded as i nvestigational or for research. Specimen Anatomical Collection Method Collection Time Receive d Time (Source) Location / / Volume Laterality Blood specimen 12/21/2019 1:40 PM 020 5:42 (specimen) EDT PM EDT Resulting Agency Comment Spec In Lab Magali Jo MD HEMATOLOGY ORDERABLES Performing Organization Address City/State/[place] [address] POCT Glucose (12/21/2019 11:45 AM EDT) athologist Signature POC Glucose 149 65 - 199 [facility] mg/dL [facility] Comment: Supplemental ranges: <140 mg/dL before meals <180 mg/dL all other times of the day Specimen Anatomical Collection Method Collection Time Receive d Time (Source) Location / / Volume Laterality Blood specimen 12/21/2019 11:45 0 (specimen) AM EDT 11:45 AM EDT Magali Jo MD POINT OF CARE TEST ORDERABLE S Performing Organization Address City/State/[place] [address] EKG 12 Lead (12/21/2019 7:37 AM EDT) Component Value Ref Range Test Analysis Performed Pathologis t Method Time At Signature Ventricular rate 119 BPM MUSE SYSTEM Atrial Rate 141 BPM MUSE SYSTEM QRS Duration 76 ms MUSE SYSTEM Q-T Interval 370 ms MUSE SYSTEM QTC Calculated 520 ms MUSE SYSTEM (Bezet) Calculated R [place] 37 degrees MUSE SYSTEM Calculated T [place] -10 degrees MUSE SYSTEM INTERPRETATION Atrial fibrillation with rapid ventricular response MUSE SYSTEM Nonspecific ST and T wave abnormality poor data quality impedes interpretation Prolonged QT Abnormal ECG When compared with ECG of 20-DEC-2019 19:23, Atrial fibrillation has replaced Undetermined rhythm I personally reviewed the tracing and edited the fellows int erpretation Confirmed by fellow SenserMarbin ([id number]) on 12/21/2019 4: 45:38 PM Confirmed by Laura Stanley ([id number]) on 12/22/2019 11:42:05 AM Specimen Anatomical Collection Method Collection Time Receive d Time (Source) Location / / Volume Laterality 12/21/2019 7:37 AM 0 EDT 11:42 AM EDT Kavon Celaya MD ECG ORDERABLES Performing Organization Address City/State/ZIP Code Phon e Number MUSE SYSTEM CT Head wo Contrast (Generic) (12/21/2019 4:55 AM EDT) Anatomical Region Laterality Modality Head Computed Tomography Specimen (Source) Anatomical Location Collection Method / Collectio n Time Received Time / Laterality Volume Impressions 12/21/2019 7:15 AM EDT Question bioccipital hypoattenuation (particularly on the LEFT), difficult to assess given extensive streak artifact a lthough appears slightly more conspicuous compared to prior CT 12/20/19 20; pathology in this region cannot be excluded. No acute intracranial hemorrhage or mass effect identified. Dental disease. I have personally reviewed the image(s) and the resident's interpretation and agree with the findings, Froilan Barker at 12/21/2019 7:15 AM Thank you for letting us participate in the care of this patient. For questions regarding this report, please contact e number below. ? 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 COMPARISON: CT head 12/20/2019 FINDINGS: Redemonstrated bilateral stimulator lead s is causing streak artifact resulting in regional obscuration. Question bioccipital hypoattenuation (pa rticularly on the LEFT). No acute intracranial hemorrhage identif ied. No significant mass effect appreciated. Scattered mild mucosal thickening within the included paranasal sinuses. Included mastoid air cells appear well-a erated. Calvarium appears intact. LEFT maxillary molar tiny periapical faye ency. 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 COMPARISON: CT head 12/20/2019 FINDINGS: Redemonstrated bilateral stimulator lead s is causing streak artifact resulting in regional obscuration. Question bioccipital hypoattenuation (pa rticularly on the LEFT). No acute intracranial hemorrhage identif ied. No significant mass effect appreciated. Scattered mild mucosal thickening within the included paranasal sinuses. Included mastoid air cells appear well-a erated. Calvarium appears intact. LEFT maxillary molar tiny periapical faye ency. IMPRESSION Question bioccipital hypoattenuation (pa rticularly on the LEFT), difficult to assess given extensive streak artifact a lthough appears slightly more conspicuous compared to prior CT 12/20/19 20; pathology in this region cannot be excluded. No acute intracranial hemorrhage or mass effect identified. Dental disease. I have personally reviewed the image(s) and the resident's interpretation and agree with the findings, Froilan Barker at 12/21/2019 7:15 AM Thank you for letting us participate in the care of this patient. For questions regarding this report, please contact e number below. Kavon Celaya MD IMG CT ORDERABLES (ABNORMAL) Electrolytes panel (12/21/2019 3:15 AM EDT) athologist Signature Sodium 138 135 - 145 [facility] mmol/L [facility] Potassium 4.0 3.5 - 5.0 [facility] mmol/L [facility] Comment: Please note: ??Patients with WBC >100,00 0 may have falsely elevated Potassium levels. ??For accurate Potassium quantif ication in these patients send serum separator tube (gold top) for subsequent determinations. ??Contact the Clinical Chemistry Laboratory if there are any qu estions. Chloride 101 98 - 107 mmol/L [facility] CO2 21 (L) 22 - 31 mmol/L [facility] Anion Gap 16 (H) 5 - 15 mmol/L [facility] Specimen Anatomical Collection Method Collection Time Receive d Time (Source) Location / / Volume Laterality Blood specimen Venous Draw / 12/21/2019 3:15 AM 2019 3:35 (specimen) Unknown EDT AM EDT Resulting Agency Comment Spec In Lab Bubba Sinclair MD CHEMISTRY ORDERABLES Performing Organization Address City/State/[place] [address] (ABNORMAL) Ferritin (12/21/2019 3:15 AM EDT) P athologist Signature Ferritin 726 (H) 30 - 400 [facility] ng/mL [facility] Comment: Pediatric reference ranges not verified at [facility], interpret with caution. Reference ranges for females greater raphael n 50 years of age approach values for men, i.e., 30-400 ng/mL. Specimen Anatomical Collection Method Collection Time Receive d Time (Source) Location / / Volume Laterality Blood specimen 12/21/2019 3:15 AM 020 3:31 (specimen) EDT AM EDT Resulting Agency Comment Spec In Lab Kavon Celaya MD CHEMISTRY ORDERABLES Performing Organization Address City/[facility]/ZIP Code Phon e Number [address] (ABNORMAL) Iron and TIBC (12/21/2019 3:15 AM EDT) Analysis Performed At Patho logist Time Signature Iron 21 (L) 45 - 160 [facility] mcg/dL [facility] TIBC 158 (L) 250 - 450 [facility] mcg/dL [facility] Iron Saturation 13 (L) 20 - 50 % [facility] Specimen Anatomical Collection Method Collection Time Receive d Time (Source) Location / / Volume Laterality Blood specimen 12/21/2019 3:15 AM 020 3:31 (specimen) EDT AM EDT Resulting Agency Comment Spec In Lab Kavon Celaya MD CHEMISTRY ORDERABLES Performing Organization Address City/[facility]/ZIP Code Phon e Number [address] XR Abdomen 1 view (Generic) (12/21/2019 12:19 AM EDT) Anatomical Region Laterality Modality Abdomen N/A Digital Radiography Specimen (Source) Anatomical Location Collection Method / Collectio n Time Received Time / Laterality Volume Impressions 12/21/2019 12:54 AM EDT FINDINGS/IMPRESSION: Esophagogastric tube side port and tip p roject over the stomach. Preliminary report signed by: Trevor ponce at 12/21/2019 12:47 AM I have personally reviewed the image(s) and the resident's interpretation and agree with the findings, Froilan Barker at 12/21/2019 12:54 AM Thank you for letting us participate in the care of this patient. For questions regarding this report, please contact e number below. ? Narrative 12/21/2019 12:54 AM EDT EXAMINATION: XR ABDOMEN 1 VIEW (GENERIC) CLINICAL HISTORY: Confirm enteric tube p lacement. TECHNIQUE: Targeted single supine portab le frontal radiograph centered over the upper abdomen dedicated for evaluation o f transesophageal enteric tube positioning, and otherwise nondiagnostic . COMPARISON: None Procedure Note Froilan Barker MD - 12/21/2019 EXAMINATION: XR ABDOMEN 1 VIEW (GENERIC) CLINICAL HISTORY: Confirm enteric tube p lacement. TECHNIQUE: Targeted single supine portab le frontal radiograph centered over the upper abdomen dedicated for evaluation o f transesophageal enteric tube positioning, and otherwise nondiagnostic . COMPARISON: None IMPRESSION FINDINGS/IMPRESSION: Esophagogastric tube side port and tip p roject over the stomach. Preliminary report signed by: Trevor ponce at 12/21/2019 12:47 AM I have personally reviewed the image(s) and the resident's interpretation and agree with the findings, Froilan Barker at 12/21/2019 12:54 AM Thank you for letting us participate in the care of this patient. For questions regarding this report, please contact e number below. Kavon Celaya MD IMG DX ORDERABLES XR Chest One View (12/21/2019 12:19 AM EDT) Anatomical Region Laterality Modality Chest N/A Digital Radiography Specimen (Source) Anatomical Location Collection Method / Collectio n Time Received Time / Laterality Volume Impressions 12/21/2019 12:56 AM EDT 1. ??Endotracheal tube projects over satisfactory position. 2. ??Low lung volumes and mild atelectas is. Preliminary report signed by: Trevor ponce at 12/21/2019 12:50 AM I have personally reviewed the image(s) and the resident's interpretation and agree with the findings, Froilan Barker at 12/21/2019 12:56 AM Thank you for letting us participate in the care of this patient. For questions regarding this report, please contact e number below. ? Narrative 12/21/2019 12:56 AM EDT EXAMINATION: XR CHEST ONE VIEW CLINICAL HISTORY: Post-intubation to pos ition ET tube. TECHNIQUE: 1 view of the chest , AP portable semiup right COMPARISON: Chest radiograph performed earlier the day 12/20/2019 FINDINGS: Interval placement of endotracheal tube, with tip approximately 4 cm above the dajuan. Enteric tube courses below the l evel of the diaphragm tip not included in the [id number]-[id number]-qdwb but side port proje cting over the stomach. Pulse generator projects over the LEFT chest/axilla with leads coursing superiorly off the qaisz-ta-leqr towards the neck. Low lung volumes bilaterally with result ant bronchovascular crowding. Mild streaky opacity in the right base, likel y atelectasis. No large pleural effusion or pneumothorax seen. Cardiomediastinal contours without significant change appreciated. Procedure Note Froilan Barker MD - 12/21/2019 EXAMINATION: XR CHEST ONE VIEW CLINICAL HISTORY: Post-intubation to pos ition ET tube. TECHNIQUE: 1 view of the chest , AP portable semiup right COMPARISON: Chest radiograph performed earlier the day 12/20/2019 FINDINGS: Interval placement of endotracheal tube, with tip approximately 4 cm above the dajuan. Enteric tube courses below the l evel of the diaphragm tip not included in the [id number]-xy-[id number] but side port proje cting over the stomach. Pulse generator projects over the LEFT chest/axilla with leads coursing superiorly off the kumcl-yl-lgkx towards the neck. Low lung volumes bilaterally with result ant bronchovascular crowding. Mild streaky opacity in the right base, likel y atelectasis. No large pleural effusion or pneumothorax seen. Cardiomediastinal contours without significant change appreciated. IMPRESSION 1. 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 2. Low lung volumes and mild atelectasis . Preliminary report signed by: Trevor ponce at 12/21/2019 12:50 AM I have personally reviewed the image(s) and the resident's interpretation and agree with the findings, Froilan Barker at 12/21/2019 12:56 AM Thank you for letting us participate in the care of this patient. For questions regarding this report, please contact e number below. Kavon Celaya MD IMG DX ORDERABLES (ABNORMAL) BLOOD GAS 2 ARTERIAL (12/21/2019 12:09 AM EDT) Analysis Performed At Patho logist Time Signature pH Art 7.43 7.35 - [facility] 7.45 [facility] pCO2 Art 36 35 - 45 [facility] mmHg [facility] pO2 Art 95 85 - 104 [facility]ORY HCO3 Art 23.4 20.0 - [facility] 26.0 [facility] mmol/L [facility] BE Art -0.9 -3.0 - 3.0 [facility] mmol/L [facility] Hgb Blood Gas 11.2 (L) 13.7 - [facility] 16.5 gm/dL [facility] O2HB Art 96.1 94.0 - [facility] 97.0 % [facility] COHB Art 0.0 % [facility] Comment: Nonsmokers: 0.5-1.5% COHB Smokers: Variable, but usually less than 10% Toxic: 20-30% COHB Lethal: Greater than 60% COHB METHB Art 0.3 <=1.5 % [facility] Na Whole Blood 133 (L) 135 - 145 mmol/L [facility] K Whole Blood 3.9 3.5 - 5.0 mmol/L [facility] Comment: Please note: Patients with WBC >100,000 may have falsely elevated Potassium levels. Contact the Clinical Chemistry L aboratory if there are any questions. ICa Whole Blood 1.08 (L) 1.15 - 1.33 mmol/L [facility] Comment: Note: ??Total bilirubin higher than 20 m g/dL may lead to falsely low ionized calcium. CL Whole Blood 103 98 - 107 mmol/L [facility] Gluc Whole Bld 180 65 - 199 mg/dL [facility] Comment: Diabetes: >=200 mg/dL plus symp toms. Lactate WB 1.6 0.5 - 2.2 mmol/L [facility] FIO2 Art 30 % [facility] PF Ratio Art 317 [facility] Specimen Anatomical Collection Method Collection Time Receive d Time (Source) Location / / Volume Laterality Blood specimen 12/21/2019 12:09 0 (specimen) AM EDT 12:09 AM EDT Kavon Celaya MD CHEMISTRY ORDERABLES Performing Organization Address City/State/[place] [address] Scan, Peripheral Blood (12/21/2019 12:00 AM EDT) [facility] gist Method Time Signature Plat Estimate Decreased [facility] RBC Morphology Abnormal [facility] Hypochromia Slight [facility] Toxic Present [facility] LABORATORY Specimen (Source) Anatomical Collection Method Collection Time Re ceived Time Location / / Volume Laterality Blood specimen 12/21/2019 12/21/2019 12 :30 (specimen) AM EDT Resulting Agency Comment Spec In Lab Bubba Sinclair MD HEMATOLOGY ORDERABLES Performing Organization Address City/State/[place] [address] Differential, Automated (12/21/2019 12:00 AM EDT) P athologist Signature Neutrophils % 57.5 % [facility] Neutr Abs (ANC) 1.77 1.70 - [facility] 6.10 [facility] x10(3)/[facility] LABORATORY Lymphocytes % 27.9 % [facility] Lymphocytes Abs 0.9 0.9 - 3.2 [facility] x10(3)/[facility] LABORATORY Monocytes % 13.0 % [facility] Monocyte Abs 0.4 0.3 - 0.9 [facility] x10(3)/[facility] LABORATORY Eosinophils % 0.3 % [facility] Eosinophils Abs 0.0 0.0 - 0.4 [facility] x10(3)/[facility] LABORATORY Basophils % 0.3 % [facility] Basophils Abs 0.0 0.0 - 0.1 [facility] x10(3)/[facility] LABORATORY Immature Gran % 1.00 % [facility] Comment: Immature granulocytes(IG's)percentage an d absolute count will include metamyelocytes, myelocytes, and promyelo cytes. Blood smears from CBCs yielding IG's will be scanned manually for concor dance. If this scan disagrees with the automated IG or if promyelocytes are not ed, a manual differential will be performed. Anneliese Gran Abs 0.03 0.00 - 0.04 x10(3)/[facility] MAR Y [facility] LABORATORY Specimen (Source) Anatomical Collection Method Collection Time Re ceived Time Location / / Volume Laterality Blood specimen 12/21/2019 12/21/2019 12 :30 (specimen) AM EDT Resulting Agency Comment Spec In Lab Bubba Sinclair MD HEMATOLOGY ORDERABLES Performing Organization Address City/State/[place] [address] (ABNORMAL) Hemogram (12/21/2019 12:00 AM EDT) Analysis Performed At Patho logist Time Signature WBC 3.1 (L) 4.0 - 9.5 [facility] x10(3)/[facility] LABORATORY RBC 3.25 (L) 4.58 - [facility] 5.54 [facility] x10(6)/[facility] LABORATORY Hemoglobin 9.9 (L) 13.7 - [facility] 16.5 gm/dL [facility] Hematocrit 28.5 (L) 40.5 - [facility] 48.5 % [facility] MCV 87.7 82.9 - [facility] 93.1 [facility] LABORATORY MCH 30.5 27.5 - [facility] 32.1 pg [facility] MCHC 34.7 32.0 - [facility] 35.7 gm/dL [facility] Platelets 100 (L) 145 - 357 [facility] x10(3)/[facility] LABORATORY RDWSD 44.1 36.0 - [facility] 45.0 [facility] LABORATORY RDWCV 13.7 11.4 - [facility] 13.8 % [facility] MPV 10.9 7.6 - 12.9 [facility] LABORATORY nRBC % Auto 0.0 % [facility] nRBC Abs Auto 0.000 0.000 - [facility] x10(3)/[facility] LABORATORY Specimen (Source) Anatomical Collection Method Collection Time Re ceived Time Location / / Volume Laterality Blood specimen 12/21/2019 12/21/2019 12 :30 (specimen) AM EDT Resulting Agency Comment Spec In Lab Bubba Sinclair MD HEMATOLOGY ORDERABLES Performing Organization Address City/State/[place] [address] Phosphorus (12/21/2019 12:00 AM EDT) P athologist Signature Phosphorus 3.8 2.5 - 4.5 [facility] mg/dL [facility] Specimen (Source) Anatomical Collection Method Collection Time Re ceived Time Location / / Volume Laterality Blood specimen 12/21/2019 12/21/2019 12 :30 (specimen) AM EDT Resulting Agency Comment Spec In Lab Magali Jo MD CHEMISTRY ORDERABLES Performing Organization Address City/State/[place] [address] [facility] [address] Magnesium (12/21/2019 12:00 AM EDT) athologist Signature Magnesium 0.81 0.69 - 1.07 [facility] mmol/L [facility] Specimen (Source) Anatomical Collection Method Collection Time Re ceived Time Location / / Volume Laterality Blood specimen 12/21/2019 12/21/2019 12 :30 (specimen) AM EDT Resulting Agency Comment Spec In Lab Magali Jo MD CHEMISTRY ORDERABLES Performing Organization Address City/State/ZIP Code Phon e Number [address] (ABNORMAL) Basic Metabolic Panel (non-fasting) (12/21/2019 12:00 AM EDT) athologist Signature Glucose Lvl 180 65 - 199 [facility] mg/dL [facility] Comment: Diabetes: >=200 mg/dL plus symp toms BUN 15 10 - 20 mg/dL [facility] Creatinine 0.88 0.80 - 1.50 mg/dL [facility] Sodium 137 135 - 145 mmol/L [facility] Potassium 4.0 3.5 - 5.0 mmol/L [facility] Comment: Please note: ??Patients with WBC >100,00 0 may have falsely elevated Potassium levels. ??For accurate Potassium quantif ication in these patients send serum separator tube (gold top) for subsequent determinations. ??Contact the Clinical Chemistry Laboratory if there are any qu estions. Chloride 101 98 - 107 mmol/L [facility] CO2 21 (L) 22 - 31 mmol/L [facility] Anion Gap 15 5 - 15 mmol/L [facility] Calcium 8.3 (L) 8.5 - 10.5 mg/dL [facility] Estimated GFR 91 >=60 mL/min/1.73 m?? [facility] Comment: The eGFR was calculated using the CKD-EP I equation. As with all creatinine based estimates of kidney function, eGFR values calculated with the CKD-EPI equation are not accurate in patients wi th acute kidney failure, extremes of body mass or the acutely ill. [email or web address] eGFR 105 >=60 mL/min/1.73 m?? [facility] Comment: The eGFR was calculated using the CKD-EP I equation. As with all creatinine based estimates of kidney function, eGFR values calculated with the CKD-EPI equation are not accurate in patients wi th acute kidney failure, extremes of body mass or the acutely ill. [email or web address] Specimen (Source) Anatomical Collection Method Collection Time Re ceived Time Location / / Volume Laterality Blood specimen 12/21/2019 12/21/2019 12 :30 (specimen) AM EDT Resulting Agency Comment Spec In Lab Magali Jo MD CHEMISTRY ORDERABLES Performing Organization Address City/[facility]/ZIP Code Phon e Number [address] (ABNORMAL) CK (12/21/2019 12:00 AM EDT) P athologist Signature CK, Total 288 (H) 0 - 200 [facility] unit/[facility] Specimen (Source) Anatomical Collection Method Collection Time Re ceived Time Location / / Volume Laterality Blood specimen 12/21/2019 12/21/2019 12 :30 (specimen) AM EDT Resulting Agency Comment Spec In Lab Kavon Celaya MD CHEMISTRY ORDERABLES Performing Organization Address City/[facility]/ZIP [facility] [place] [place] [address] (ABNORMAL) Hepatic Function Panel (12/21/2019 12:00 AM EDT) P athologist Signature Total Protein 5.9 (L) 6.1 - 8.0 [facility] gm/dL [facility] Albumin 2.8 (L) 3.2 - 5.[address] [facility] gm/dL [facility] AST 68 (H) 0 - [address] [facility] [facility] unit/L [facility] ALT 69 (H) 0 - 55 [facility] unit/L [facility] Alk Phos 91 40 - 130 [place] unit/L [facility] Total 1.0 0.2 - 1.[address] [facility] Bilirubin mg/dL [facility] Bili, Direct 0.6 (H) 0.0 - 0.[address] [facility] mg/dL [facility] Specimen (Source) Anatomical Collection Method Collection Time Re ceived Time Location / / Volume Laterality Blood specimen 12/21/2019 12/21/2019 12 :30 (specimen) AM EDT Resulting Agency Comment Spec In Lab Kavon Celaya MD CHEMISTRY ORDERABLES Performing Organization Address City/State/[place] [address] Lumbar Puncture (12/20/2019 11:50 PM EDT) Narrative Kavon Celaya MD - 12/20/2019 11:50 PM EDT Jenny Arora, DO ? 12/21/2019 12:21 AM Lumbar Puncture Procedure Note Primary Indications for Procedure: Rule out meningitis. Procedure Diagnosis: altered mental stat us, fever Location of Procedure: Critical Care. Risks and Benefits: The risks and benefi ts of this procedure were reviewed and informed consent was obtain ed from family via phone. Patient was intubated prior to procedure to facilitate LP. Time Out: Prior to the start of the proc edure, the patient's identity, intended procedure, site/side, correct patient positioning and presence of the site mar k was confirmed as applicable. The medical history and brenda t were reviewed to rule out potential contraindications to the p lanned procedure. Patient Position for Procedure: Right la teral decubitus Procedure Technique: Sterile draping was applied. Skin was prepped with ??chlorhexidine. 3 ml of 1% Lidocaine was injected for local anesthesia. Procedure Details: The insertion site fo r this procedure was L3/4 and L4/5. There several attempts by 3 pr brian without success. ?? The needle used was a 3.5 inch 20 gauge Quincke. ? Findings: Unable to obtain CSF. ??Arthri tis was not a limiting factor in gaining access to CSF, rather there was no return of CSF when it seemed the there should have been at times. Specimens were sent for the following te st(s): n/a Post Procedure: Patient placed flat and advised to lie flat for 45-60 minutes. No immediate complication s were observed.. Procedure Comments: Dr Mitch Celaya was p resent for the duration of the procedure and URIAH Davila with Nerology attempted and assisted as well Kavon Celaya MD PROCEDURE/MINOR SURGICAL ORD ERABLES EKG 12 Lead (12/20/2019 7:23 PM EDT) Component Value Ref Range Test Analysis Performed Pathologis t Method Time At Signature Ventricular rate 143 BPM MUSE SYSTEM Atrial Rate 144 BPM MUSE SYSTEM P-R Interval 144 ms MUSE SYSTEM QRS Duration 72 ms MUSE SYSTEM Q-T Interval 348 ms MUSE SYSTEM QTC Calculated 537 ms MUSE SYSTEM (Bezet) Calculated P [place] -11 degrees MUSE SYSTEM Calculated R [place] 39 degrees MUSE SYSTEM Calculated T [place] -85 degrees MUSE SYSTEM INTERPRETATION poor baseline, consider sinus tachycardia MUSE SYSTEM ST & T wave abnormality, consider inferior ischemia ST & T wave abnormality, consider anterolateral ischemia Abnormal ECG When compared with ECG of 31-MAR-2018 16:57, Vent. rate has increased BY ??80 BPM QRS duration has decreased ST elevation now present in Inferior leads ST now depressed in Anterolateral leads T wave inversion now evident in Anterior leads Confirmed by Laura Stanley ([email or web address]) on 12/21/2019 9:12:24 A M Specimen Anatomical Collection Method Collection Time Receive d Time (Source) Location / / Volume Laterality 12/20/2019 7:23 PM 0 9:12 EDT AM EDT Kavon Celaya MD ECG ORDERABLES Performing Organization Address City/[facility]/ZIP Code Phon e Number MUSE SYSTEM POCT Glucose (12/20/2019 7:00 PM EDT) P athologist Signature POC Glucose 165 65 - 199 [facility] mg/dL [facility] Comment: Supplemental ranges: <140 mg/dL before meals <180 mg/dL all other times of the day Specimen Anatomical Collection Method Collection Time Receive d Time (Source) Location / / Volume Laterality Blood specimen 12/20/2019 7:00 PM 020 7:00 (specimen) EDT PM EDT Kavon Celaya MD POINT OF CARE TEST ORDERABLE S Performing Organization Address City/State/[place] [address] (ABNORMAL) Urinalysis Microscopic Exam (12/20/2019 6:29 PM EDT) Analysis Performed At Patho logist Time Signature RBC UA >100 (H) 0 - 3 /HPF [facility] WBC UA 4 (H) 0 - 3 /HPF [facility] Squam Epith UA 4 <=4 /HPF [facility] Hyaline Cast 2 0 - 2 /LPF [facility] Specimen (Source) Anatomical Collection Method Collection Time Re ceived Time Location / / Volume Laterality Urine specimen 12/20/2019 6:29 12/20/2019 8:32 obtained via PM EDT PM EDT indwelling urinary catheter (specimen) Resulting Agency Comment Spec In Lab Obaida Dairi DO URINE ORDERABLES Performing Organization Address City/State/[place] [address] (ABNORMAL) Urinalysis with reflex Culture (12/20/2019 6:29 PM EDT) Patholo gist Method Time Signature Glucose UA Negative Negative [facility] mg/dL [facility] Protein UA 100 (A) Negative [facility] mg/dL [facility] Bilirubin UA Small (A) Negative [facility] mg/dL [facility] Comment: Clinical correlation required for positi ve Urine Bilirubin results as false positive may occur with some drugs and d rug related products. If a false positive is suspected a serum total bili kapadia should be considered if clinically indicated. Urobilinogen UA 4.0 (A) Normal mg/dL [facility] pH UA 6.0 5.0 - 8.0 [facility] Blood UA Large (A) Negative mg/dL [facility] Ketones UA >=80 (Critical) Negative mg/dL [facility] Comment: Urinalysis result NOT critical without a combination of Glucose greater than or equal to 500 mg/dL AND Ketones greate r than or equal to 80 mg/dL Nitrite UA Negative Negative [facility] Leukocytes UA Trace (A) Negative [facility] LABORATORY Appearance UA Clear Clear PATTIE Leija [facility] Spec [place] UA 1.026 1.002 - 1.030 [facility] Color UA Dark Yellow Yellow [facility] Culture Reflexed No [facility] Specimen (Source) Anatomical Collection Method Collection Time Re ceived Time Location / / Volume Laterality Urine specimen 12/20/2019 6:29 12/20/2019 8:32 obtained via PM EDT PM EDT indwelling urinary catheter (specimen) Resulting Agency Comment Spec In Lab Remi Tenorio MD URINE ORDERABLES Performing Organization Address City/[facility]/[place] [address] Blood culture (12/20/2019 6:20 PM EDT) Patholo gist Method Time Signature Blood Culture No growth PATTIE CAPONE at 5 days. [facility] Specimen Anatomical Collection Method Collection Time Receive d Time (Source) Location / / Volume Laterality Blood specimen 12/20/2019 6:20 PM 020 6:44 (specimen) EDT PM EDT Comment: 2ND SITE: LEFT ? CANT READ IT Resulting Agency Comment Spec In Lab Remi Tenorio MD MICROBIOLOGY - BLOOD ORDERAB LES Performing Organization Address City/[facility]/[place] [address] Blood culture (12/20/2019 6:00 PM EDT) Patholo gist Method Time Signature Blood Culture No growth PATTIE CAPONE at 5 days. [facility] Specimen Anatomical Collection Method Collection Time Receive d Time (Source) Location / / Volume Laterality Blood specimen STRUCTURE OF LEFT 12/20/2019 6:00 PM 6:44 (specimen) FOREARM / Unknown EDT PM EDT Resulting Agency Comment Spec In Lab Remi Tenorio MD MICROBIOLOGY - BLOOD ORDERAB LES Performing Organization Address City/[facility]/[place] [address] (ABNORMAL) Blood Gas Venous (12/20/2019 5:59 PM EDT) Analysis Performed At Patho logist Time Signature pH Manny 7.43 (H) 7.32 - [facility] 7.42 [facility] pCO2 Manny 40 (L) 41 - 51 [facility]ORATORY pO2 Manny 21 (L) 25 - 40 [facility] LABORATORY HCO3 Manny 25.8 mmol/L [facility] BE Manny 1.5 mmol/L [facility] Hgb Blood Gas 11.0 (L) 13.7 - [facility] 16.5 gm/dL [facility] O2HB Manny 34.6 % [facility] COHB Manny 1.0 % [facility] Comment: Nonsmokers: 0.5-1.5% COHB Smokers: Variable, but usually less than 10% Toxic: 20-30% COHB Lethal: Greater than 60% COHB METHB Manny 0.3 <=1.5 % [facility] Na Whole Blood 136 135 - 145 mmol/L [facility] K Whole Blood 3.8 3.5 - 5.0 mmol/L [facility] Comment: Please note: Patients with WBC >100,000 may have falsely elevated Potassium levels. Contact the Clinical Chemistry L aboratory if there are any questions. ICa Whole Blood 1.09 (L) 1.15 - 1.33 mmol/L [facility] Comment: Note: ??Total bilirubin higher than 20 m g/dL may lead to falsely low ionized calcium. CL Whole Blood 102 98 - 107 mmol/L [facility] Gluc Whole Bld 151 65 - 199 mg/dL [facility] Comment: Diabetes: >=200 mg/dL plus symp toms Lactate WB 1.5 0.5 - 2.2 mmol/L [facility] BGas Source Venous [facility] Specimen Anatomical Collection Method Collection Time Receive d Time (Source) Location / / Volume Laterality Blood specimen Venous Draw / 12/20/2019 5:59 PM 2019 5:59 (specimen) Unknown EDT PM EDT Resulting Agency Comment Spec In Lab Huey Carty DO CHEMISTRY ORDERABLES Performing Organization Address City/State/[place] [address] Scan, Peripheral Blood (12/20/2019 5:25 PM EDT) [facility] Method Time Signature Plat Estimate Decreased [facility] RBC Morphology Abnormal [facility] Polychromasia Present >5/HPF [facility] Specimen Anatomical Collection Method Collection Time Receive d Time (Source) Location / / Volume Laterality Blood specimen 12/20/2019 5:25 PM 020 5:36 (specimen) EDT PM EDT Resulting Agency Comment Spec In Lab Obaida Dairi DO HEMATOLOGY ORDERABLES Performing Organization Address City/State/[place] [address] (ABNORMAL) CK (12/20/2019 5:25 PM EDT) P athologist Signature CK, Total 447 (H) 0 - 200 [facility] unit/[facility]ORY Specimen Anatomical Collection Method Collection Time Receive d Time (Source) Location / / Volume Laterality Blood specimen Venous Draw / 12/20/2019 5:25 PM 2019 5:39 (specimen) Unknown EDT PM EDT Resulting Agency Comment Spec In Lab Obtaylor Dairi DO CHEMISTRY ORDERABLES Performing Organization Address City/[facility]/[place] [address] (ABNORMAL) Differential, Automated (12/20/2019 5:25 PM EDT) [facility] Method Time Signature Neutrophils % 51.1 % [facility] Neutr Abs (ANC) 1.50 (L) 1.70 - [facility] 6.10 [facility] x10(3)/[facility] LABORATORY Lymphocytes % 33.3 % [facility] Lymphocytes Abs 1.0 0.9 - 3.2 [facility] x10(3)/[facility] LABORATORY Monocytes % 13.9 % [facility] Monocyte Abs 0.4 0.3 - 0.9 [facility] x10(3)/[facility] LABORATORY Eosinophils % 0.7 % [facility] Eosinophils Abs 0.0 0.0 - 0.4 [facility] x10(3)/[facility] LABORATORY Basophils % 0.3 % [facility] Basophils Abs 0.0 0.0 - 0.1 [facility] x10(3)/[facility] LABORATORY Immature Gran % 0.70 % [facility] Comment: Immature granulocytes(IG's)percentage an d absolute count will include metamyelocytes, myelocytes, and promyelo cytes. Blood smears from CBCs yielding IG's will be scanned manually for concor dance. If this scan disagrees with the automated IG or if promyelocytes are not ed, a manual differential will be performed. Anneliese Gran Abs 0.02 0.00 - 0.04 x10(3)/[facility] LABORATORY Specimen Anatomical Collection Method Collection Time Receive d Time (Source) Location / / Volume Laterality Blood specimen 12/20/2019 5:25 PM 020 5:36 (specimen) EDT PM EDT Resulting Agency Comment Spec In Lab Franka Carloz DO HEMATOLOGY ORDERABLES Performing Organization Address City/State/[place] [address] (ABNORMAL) Hemogram (12/20/2019 5:25 PM EDT) Analysis Performed At Patho logist Time Signature WBC 2.9 (L) 4.0 - 9.5 [facility] x10(3)/[facility] LABORATORY RBC 3.39 (L) 4.58 - [facility] 5.54 [facility] x10(6)/[facility] LABORATORY Hemoglobin 10.2 (L) 13.7 - [facility] 16.5 gm/dL [facility] Hematocrit 29.5 (L) 40.5 - [facility] 48.5 % [facility] MCV 87.0 82.9 - [facility] 93.1 fL [facility] MCH 30.1 27.5 - [facility] 32.1 pg [facility] MCHC 34.6 32.0 - PATTIE CAPONE 35.7 gm/dL [facility] Platelets 108 (L) 145 - 357 PATTIE ESTELITA x10(3)/[facility] LABORATORY RDWSD 43.6 36.0 - PATTIE CAPONE 45.0 [facility] LABORATORY RDWCV 13.6 11.4 - PATTIE CAPONE 13.8 % [facility] MPV 10.9 7.6 - 12.[address] [facility] nRBC % Auto 0.0 % [facility] nRBC Abs Auto 0.000 0.000 - PATTIE CAPONE 0.000 [facility] x10(3)/[facility] LABORATORY Specimen Anatomical Collection Method Collection Time Receive d Time (Source) Location / / Volume Laterality Blood specimen 12/20/2019 5:25 PM 020 5:36 (specimen) EDT PM EDT Resulting Agency Comment Spec In Lab Huey Carty DO HEMATOLOGY ORDERABLES Performing Organization Address City/State/[place] [address] APTT (12/20/2019 5:25 PM EDT) P athologist Signature PTT 32 25 - 37 sec [facility] Comment: The PTT is NOT appropriate for heparin m onitoring. Use the Anti-Xa level for heparin monitoring (HEP UFH) or LMWH mon itoring (HEP LMW). A PTT less than 37 seconds generally indicates adequate hem ostasis. Specimen Anatomical Collection Method Collection Time Receive d Time (Source) Location / / Volume Laterality Blood specimen 12/20/2019 5:25 PM 020 5:36 (specimen) EDT PM EDT Resulting Agency Comment Spec In Lab Remi Tenorio MD HEMATOLOGY ORDERABLES Performing Organization Address City/State/[place] [address] (ABNORMAL) Prothrombin Time (12/20/2019 5:25 PM EDT) P athologist Signature PT 14.7 (H) 9.4 - 12.5 [facility] LABORATORY INR 1.3 [facility] Comment: An INR <2.0 indicates adequate [...] Location / / Volume Laterality Blood specimen 12/20/2019 5:25 PM 020 5:36 (specimen) EDT PM EDT Resulting Agency Comment Spec In Lab Remi Tenorio MD HEMATOLOGY ORDERABLES Performing Organization Address City/[facility]/ZIP Code Phon e Number [address] (ABNORMAL) Hepatic Function Panel (12/20/2019 5:25 PM EDT) P athologist Signature Total Protein 6.3 6.1 - 8.0 PATTIE ESTELITA gm/dL [facility] Albumin 3.3 3.2 - 5.2 PATTIE ESTELITA gm/dL [facility] AST 76 (H) 0 - 39 PATTIE ESTELITA unit/L [facility] ALT 71 (H) 0 - 55 PATTIE ESTELITA unit/L [facility] Alk Phos 100 40 - 130 PATTIE ESTELITA unit/L [facility] Total 1.3 0.2 - 1.3 PATTIE ESTELITA Bilirubin mg/dL [facility] Bili, Direct 0.7 (H) 0.0 - 0.3 PATTIE ESTELITA mg/dL [facility] Specimen Anatomical Collection Method Collection Time Receive d Time (Source) Location / / Volume Laterality Blood specimen 12/20/2019 5:25 PM 020 5:36 (specimen) EDT PM EDT Resulting Agency Comment Spec In Lab Remi Tenorio MD CHEMISTRY ORDERABLES Performing Organization Address City/[facility]/[place] [address] Phosphorus (12/20/2019 5:25 PM EDT) P athologist Signature Phosphorus 3.1 2.5 - 4.5 PATTIE ESTELITA mg/dL [facility] Specimen Anatomical Collection Method Collection Time Receive d Time (Source) Location / / Volume Laterality Blood specimen 12/20/2019 5:25 PM 020 5:36 (specimen) EDT PM EDT Resulting Agency Comment Spec In Lab Remi Tenorio MD CHEMISTRY ORDERABLES Performing Organization Address City/[facility]/[place] [address] (ABNORMAL) Magnesium (12/20/2019 5:25 PM EDT) P athologist Signature Magnesium 0.57 (L) 0.69 - 1.07 [facility] mmol/L [facility] Specimen Anatomical Collection Method Collection Time Receive d Time (Source) Location / / Volume Laterality Blood specimen 12/20/2019 5:25 PM 020 5:36 (specimen) EDT PM EDT Resulting Agency Comment Spec In Lab Remi Tenorio MD CHEMISTRY ORDERABLES Performing Organization Address City/[facility]/[place] [address] (ABNORMAL) Basic Metabolic Panel (non-fasting) (12/20/2019 5:25 PM EDT) athologist Signature Glucose Lvl 150 65 - 199 [facility] mg/dL [facility] Comment: Diabetes: >=200 mg/dL plus symp toms BUN 12 10 - 20 mg/dL [facility] Creatinine 0.90 0.80 - 1.50 mg/dL [facility] Sodium 136 135 - 145 mmol/L [facility] Potassium 3.6 3.5 - 5.0 mmol/L [facility] Comment: Please note: ??Patients with WBC >100,00 0 may have falsely elevated Potassium levels. ??For accurate Potassium quantif ication in these patients send serum separator tube (gold top) for subsequent determinations. ??Contact the Clinical Chemistry Laboratory if there are any qu estions. Chloride 97 (L) 98 - 107 mmol/L [facility] CO2 24 22 - 31 mmol/L [facility] Anion Gap 15 5 - 15 mmol/L [facility] Calcium 8.5 8.5 - 10.5 mg/dL [facility] Estimated GFR 90 >=60 mL/min/1.73 m?? [facility] Comment: The eGFR was calculated using the CKD-EP I equation. As with all creatinine based estimates of kidney function, eGFR values calculated with the CKD-EPI equation are not accurate in patients wi th acute kidney failure, extremes of body mass or the acutely ill. [email or web address]/[facility] eGFR 104 >=60 mL/min/1.73 m?? [facility] Comment: The eGFR was calculated using the CKD-EP I equation. As with all creatinine based estimates of kidney function, eGFR values calculated with the CKD-EPI equation are not accurate in patients wi th acute kidney failure, extremes of body mass or the acutely ill. [email or web address]/[facility] Specimen Anatomical Collection Method Collection Time Receive d Time (Source) Location / / Volume Laterality Blood specimen 12/20/2019 5:25 PM 020 5:36 (specimen) EDT PM EDT Resulting Agency Comment Spec In Lab Remi Tenorio MD CHEMISTRY ORDERABLES Performing Organization Address City/State/[place] [address] POCT Glucose (12/20/2019 5:09 PM EDT) P athologist Signature POC Glucose 139 65 - 199 [facility] Comment: Supplemental ranges: <140 mg/dL before meals <180 mg/dL all other times of the day Specimen Anatomical Collection Method Collection Time Receive d Time (Source) Location / / Volume Laterality Blood specimen 12/20/2019 5:09 PM 020 5:09 (specimen) EDT PM EDT Remi Tenorio MD POINT OF CARE TEST ORDERABLE S Performing Organization Address City/State/[place] [address] documented in this encounter Visit Diagnoses Diagnosis Tachycardia Tachycardia, unspecified Atrial fibrillation, unspecified type Altered mental status Dysphagia Dysphagia, unspecified Parkinson's disease Paralysis agitans Viral meningitis Unspecified viral meningitis documented in this encounter Admitting Diagnoses Diagnosis Altered mental status documented in this encounter Administered Medications Inactive Administered Medications - up to 3 most recent administrations Medication Order MAR Action Action Date Dose Rate Site acetaminophen (OFIRMEV) Given 12/20/2019 9:11 PM 1,000 mg 400 mL/hr injection 1,000 mg EDT 1,000 mg, Intravenous, at 400 mL/hr, ONCE, 1 dose, On Sat12/20/19 at 2015, Maximum dose of acetaminophen is 4000 mg from all sources in 24 hours., Routine acetaminophen (Tylenol) (32.02 mg/mL) oral Given 12/25/2019 4:27 PM EDT 650 mg liquid 650 mg 650 mg, Oral, EVERY 4 HOURS PRN, Starting on Sat12/21/19 at 1211, Until Sat12/25/19 at 2354, Fever, Maximum dose of acetaminophen is 4000 mg from all sources in 24 hours. Should be given concomitantly if other Analgesics are ordered., Routine Given 12/24/2019 9:02 PM EDT 650 mg Given 12/23/2019 9:24 AM EDT 650 mg acetaminophen (Tylenol) tablet 650 mg Given 12/29/2019 11:32 PM EDT 650 mg 650 mg, Oral, EVERY 6 HOURS PRN, Starting on Sat12/29/19 at 1038, Until Sat12/30/19 at 1452, Pain, Maximum dose of acetaminophen is 4000 mg from all sources in 24 hours., STAT Given 12/29/2019 10:44 AM EDT 650 mg acyclovir (ZOVIRAX) 864 mg in New Bag 12/21/2019 8:51 PM EDT 864 m g 267.3 mL/hr sodium chloride 0.9% 267.28 mL 864 mg (10 mg/kg/dose ? 86.4 kg Adjusted weight), Intravenous, EVERY 8 HOURS, First dose (after last modification) on Sat12/21/19 at 0500, Until Discontinued, Administer over 60 Minutes, Indication for (Active or Suspected): ORTHOPEDIC SURGEON/Meningitis New Bag 12/21/2019 12:35 PM EDT 864 mg 267.3 mL/hr New Bag 12/21/2019 6:36 AM EDT 864 mg 267.3 mL/hr acyclovir (ZOVIRAX) 864 mg in New Bag 12/22/2019 4:32 AM EDT 864 m g 267.3 mL/hr sodium chloride 0.9% 267.28 mL 864 mg, Intravenous, EVERY 8 HOURS, First dose on Sat12/22/19 at 0500, Until Discontinued, Administer over 60 Minutes, Indication for (Active or Suspected): ORTHOPEDIC SURGEON/Meningitis acyclovir (ZOVIRAX) 875 mg in New Bag 12/25/2019 4:22 AM EDT 875 m g 267.5 mL/hr sodium chloride 0.9% 267.5 mL 875 mg, Intravenous, EVERY 8 HOURS, First dose on Sat12/24/19 at 1230, Until Discontinued, Administer over 60 Minutes, Indication for (Active or Suspected): ORTHOPEDIC SURGEON/Meningitis [facility] 12/24/2019 8:35 PM EDT 875 mg 267.5 mL/hr New 12/24/2019 12:46 PM EDT 875 mg 267.5 mL/hr ampicillin 2g vial attach to [facility] 12/22/2019 12:12 AM EDT 2,000 mg 400 mL/hr sodium chloride 0.9% 100 mL Mini-Bag Plus 2,000 mg (2 g), Intravenous, EVERY 4 HOURS SCHEDULED, First dose on Sat12/20/19 at 2015, Until Discontinued, Administer over 15 Minutes, Warning Vesicant/Irritant Medication , Indication for (Active or Suspected): ORTHOPEDIC SURGEON/Meningitis [facility] 12/21/2019 8:42 PM EDT 2,000 mg 400 mL/hr 12/21/2019 5:27 PM EDT 2,000 mg 400 mL/hr apixaban (Eliquis) tablet 5 mg Given 12/30/2019 10:01 AM EDT 5 mg 5 mg, Oral, 2 TIMES DAILY, First dose on Sat12/28/19 at 2100, Until Discontinued, Anticoagulant Pharmacy - please time to start this afternoon to replace therapeutic lovenox. Thanks!, Routine Given 12/29/2019 8:02 PM EDT 5 mg Given 12/29/2019 9:50 AM EDT 5 mg atorvastatin (Lipitor) tablet 10 mg Given 12/29/2019 4:19 PM EDT 10 mg 10 mg, Oral, EVERY EVENING, First dose on Sat12/22/19 at 1700, Until Discontinued, Routine Given 12/28/2019 4:16 PM EDT 10 mg Given 12/27/2019 5:36 PM EDT 10 mg barium sulfate (VARIBAR PUDDING) oral paste Given 12/28/2019 2:15 PM EDT 10 mLs 10 mL 10 mL, Oral, ONCE, 1 dose, On Sat12/28/19 at 1415, Routine barium sulfate (Varibar Thin Liquid) oral Given 12/28/2019 2:15 PM EDT 10 mLs powder 10 mL 10 mL, Oral, ONCE, 1 dose, On Sat12/28/19 at 1415, Routine calcium carbonate (Tums) chewable tablet Given 12/27/2019 1:45 A M EDT 1,000 mg 1,000 mg 1,000 mg, Oral, ONCE, 1 dose, On Sat12/27/19 at 0115, Routine carbidopa-levodopa (Sinemet) 25-250 mg per Given 12/29 10:01 AM EDT 1 tablet tablet 1 tablet 1 tablet, Oral, 4 TIMES DAILY, First dose on Sat12/21/19 at 0900, Until Discontinued, Routine Given 12/29/2019 8:02 PM EDT 1 tablet Given 12/29/2019 4:20 PM EDT 1 tablet cefTRIAXone (ROCEPHIN) 2 g vial attach New Bag 12/23/2019 9:08 AM EDT 2 g 100 mL/hr to sodium chloride 0.9% 50 mL Mini-Bag Plus 2 g, Intravenous, EVERY 12 HOURS, First dose on Sat12/20/19 at 2015, Until Discontinued, Administer over 30 Minutes, Indication for (Active or Suspected): ORTHOPEDIC SURGEON/Meningitis New Bag 12/22/2019 7:32 PM EDT 2 g 100 mL/hr New Bag 12/22/2019 7:43 AM EDT 2 g 100 mL/hr chlorhexidine (PERIDEX) 0.12 % oral solution Given 10:50 AM EDT 15 mLs 15 mL 15 mL, Oral, 2 TIMES DAILY, First dose on Sat12/23/19 at 1000, Until Discontinued, Routine Given 12/24/2019 8:25 AM EDT 15 mLs Given 12/23/2019 8:19 PM EDT 15 mLs dextrose 10% infusion 250 mL, at 1,000 mL/hr, Intravenous, MELA RY 30 MIN PRN, Starting on Sat12/21/19 at 0140, Until Sat12/30/19 at 1452, For BG 50-70 mg/dL: Oral treatment preferred:?? [...] for the duration of the active insulin. dilTIAZem (CARDIZEM) 125 mg Rate/Dose Change 12/21/2019 3:01 AM EDT 5 mg/hr 5 mL/hr in D5W 125 mL infusion 5-15 mg/hr (5-15 mL/hr), Intravenous, CONTINUOUS, Starting on Sat12/20/19 at 2030, Until Sat12/21/19 at 0432, Titrate to maintain heart rate of 100 ; Call MD for rate heart less than 60. Initiate infusion at 5 mg/hr and increase every 30 minutes by 5 mg/hr to a maximum dose of 15 mg/hr., Routine Rate/Dose Change 12/21/2019 1:20 AM EDT 10 mg/hr 10 mL/hr New Bag 12/20/2019 8:48 PM EDT 5 mg/hr 5 mL/hr dilTIAZem (CARDIZEM) 125 mg Rate/Dose Change 12/21/2019 10:36 PM ED T 3 mg/hr 3 mL/hr in D5W 125 mL infusion 5-15 mg/hr (5-15 mL/hr), Intravenous, CONTINUOUS, Starting on Sat12/21/19 at 0530, Until Sat12/21/19 at 2300, Titrate to maintain heart rate of 100 ; Call MD for rate heart less than 60. Initiate infusion at 5 mg/hr and increase every 30 minutes by 5 mg/hr to a maximum dose of 15 mg/hr., Routine Rate/Dose Verify 12/21/2019 9:16 PM EDT 5 mg/hr 5 mL/hr Rate/Dose Change 12/21/2019 8:00 PM EDT 5 mg/hr 5 mL/hr dilTIAZem (CARDIZEM) 125 mg in D5W New Bag 12/24/2019 6:33 AM EDT 10 mg/hr 10 mL/hr 125 mL infusion 5-15 mg/hr (5-15 mL/hr), Intravenous, CONTINUOUS, Starting on Sat12/23/19 at 0400, Until Sat12/24/19 at 1118, Titrate to maintain heart rate of 100 ; Call MD for rate heart less than 60. Initiate infusion at 5 mg/hr and increase every 30 minutes by 5 mg/hr to a maximum dose of 15 mg/hr., Routine New Bag 12/23/2019 10:28 PM EDT 15 mg/hr 15 mL/hr Rate/Dose Verify 12/23/2019 6:00 PM EDT 15 mg/hr 15 mL/hr dilTIAZem (CARDIZEM) injection 5 mg/mL Given 12/20/2019 8:30 PM EDT 20 mg 20 mg, Intravenous, ONCE, 1 dose, On Sat12/20/19 at 2030, Routine dilTIAZem (CARDIZEM) injection 5 mg/mL Given 12/23/2019 3:38 AM EDT 5 mg 5 mg, Intravenous, ONCE, 1 dose, On Sat12/23/19 at 0400, STAT dilTIAZem (Cardizem) tablet 60 mg Given 12/27/2019 12:43 PM EDT 60 mg 60 mg, Oral, EVERY 6 HOURS SCHEDULED, First dose on Sat12/24/19 at 1200, Until Discontinued, Routine Given 12/27/2019 6:00 AM EDT 60 mg Given 12/27/2019 12:39 AM EDT 60 mg dilTIAZem XR (Dilacor XR) capsule 240 mg Given 12/29/2019 5:44 PM EDT 240 mg 240 mg, Oral, DAILY, First dose on Sat12/27/19 at 1800, Until Discontinued, DO NOT CRUSH OR OPEN, Routine Given 12/28/2019 5:18 PM EDT 240 mg Given 12/27/2019 5:36 PM EDT 240 mg doxycycline monohydrate (Monodox) capsule 100 Given 8:03 PM EDT 100 mg mg 100 mg, Oral, 2 TIMES DAILY, First dose on Sat12/22/19 at 1245, Until Discontinued, Routine Given 12/22/2019 12:24 PM EDT [address] (Cymbalta) capsule 30 mg Given 12/30/2019 10:01 AM EDT 30 mg 30 mg, Oral, 2 TIMES DAILY, First dose on Sat12/29/19 at 1300, Until Discontinued, Routine Given 12/29/2019 8:02 PM EDT 30 mg Given 12/29/2019 2:45 PM EDT 30 mg enoxaparin (LOVENOX) injection 110 mg Given 12/28/2019 8:40 AM EDT 110 mg 110 mg, Subcutaneous, EVERY 12 HOURS SCHEDULED (2 times per day), First dose on Sat12/23/19 at 1000, Until Discontinued, Routine Given 12/27/2019 9:17 PM EDT 110 mg Given 12/27/2019 10:04 AM EDT 110 mg enoxaparin (LOVENOX) injection 40 mg Given 12/22/2019 2:28 PM EDT 40 mg 40 mg, Subcutaneous, EVERY 24 HOURS SCHEDULED (Daily), First dose on Sat12/22/19 at 1400, Until Discontinued, Routine entacapone (Comtan) tablet 200 mg Given 12/30/2019 10:03 AM EDT 200 mg 200 mg, Oral, 3 TIMES DAILY, First dose on Sat12/21/19 at 0900, Until Discontinued, Routine Given 12/29/2019 4:19 PM EDT 200 mg Given 12/29/2019 12:14 PM EDT 200 mg famotidine (Pepcid) tablet 20 mg Given 12/25/2019 9:16 AM EDT 20 mg 20 mg, Oral, 2 TIMES DAILY, First dose on Sat12/23/19 at 0900, Until Discontinued, Routine Given 12/24/2019 8:34 PM EDT 20 mg Given 12/24/2019 8:25 AM EDT 20 mg fentaNYL (PF) 50mcg/mL injection Given 12/20/2019 9:43 PM EDT 50 mcg 50 mcg, Intravenous, ONCE, 1 dose, On Sat12/20/19 at 2200, If medication ordered subcutaneously, do not administer more than 2 mL as a single injection., Routine glucagon (human recombinant) injection S olR 1 mg 1 mg, Intramuscular, EVERY 30 MIN PRN, S tarting on Sat12/21/19 at 0140, Until Sat12/30/19 at 1452, Low blood sugar, For BG 50-70 mg/d [...] active insulin., Routine glucose (GLUTOSE) 40% oral gel 15-30 g, Buccal, EVERY 30 MIN PRN, Starting on 12/10 at 0140, Until Sat12/30/19 at 1452, Low blood sugar, For BG 50-70 mg/d [...] weight of tube = 37.5 grams., Routine heparin (Porcine) subcutaneous injection Given 6:10 AM EDT 5,000 Units 5,000 Units 5,000 Units, Subcutaneous, EVERY 8 HOURS SCHEDULED, First dose on Sat12/21/19 at 1730, Until Discontinued, Routine Given 12/21/2019 9:13 PM EDT 5,000 Units Given 12/21/2019 5:35 PM EDT 5,000 Units insulin lispro (HumaLOG) VIAL injection 1-5 Given 12/10 7:48 AM EDT 1 Units Units 1-5 Units, Subcutaneous, 3 TIMES DAILY BEFORE MEALS, First dose on Sat12/21/19 at 0730, Until Discontinued, CORRECTION BOLUS [1-4 Units] Sensitive [...] of > 240 in 2 hours., Routine insulin lispro (HumaLOG) VIAL injection 1-5 Given 12/10 6:15 AM EDT 2 Units Units 1-5 Units, Subcutaneous, EVERY 6 HOURS SCHEDULED, First dose (after last modification) on Sat12/23/19 at 1200, Until Discontinued, CORRECTION BOLUS [1-4 Units] Sensitive [...] > 240 in 2 hours., Routine Given 12/24/2019 12:15 AM EDT 1 Units Given 12/23/2019 6:02 PM EDT 1 Units insulin lispro (HumaLOG) VIAL injection 1-5 Given 12/11 4:38 AM EDT 1 Units Units 1-5 Units, Subcutaneous, EVERY 4 HOURS SCHEDULED, First dose (after last modification) on [facility] 12/24/19 at 1200, Until Discontinued, CORRECTION BOLUS [1-4 Units] Sensitive [...] > 240 in 2 hours., Routine Given 12/29/2019 11:49 PM EDT 1 Units Given 12/29/2019 8:02 PM EDT 1 Units lactated Ringers 1,000 mL IV bolus New Bag 12/21/2019 12:19 AM EDT Intravenous, ONCE, 1 dose, On Sat12/21/19 at 0030 lactated Ringers 1,000 mL IV bolus New Bag 12/21/2019 3:16 AM EDT 500 mL/hr at 500 mL/hr, Intravenous, ONCE, 1 dose, On Sat12/21/19 at 0315 lactated Ringers 500 mL IV bolus 12/23/2019 7:15 AM EDT 500 mL/hr at 500 mL/hr, Intravenous, ONCE, 1 dose, On Sat12/23/19 at 0730 lidocaine (LIDODERM) 5 % Patch Applied 12/30/2019 11:26 AM 1 patch 08- Back Lower patch 1 patch EDT (Right) 1 patch, Transdermal, EVERY 24 HOURS, First dose on Sat12/29/19 at 1100, Until Discontinued, Apply patch(es) for 12 hours, and then remove for 12 hours, Routine Patch Applied 12/29/2019 10:44 AM EDT 1 patch 20- Other (document in comment section) lidocaine (LIDODERM) 5 %(700 mg/patch) P atch Removal Transdermal, EVERY 24 HOURS, First dose on Sat12/29/19 at 2245, Until Discontinued, Remove lidocaine 5 %(700 mg/patch) patch lidocaine (XYLOCAINE) 2 % jelly Given 12/24/2019 4:44 PM EDT Topical (Top), ONCE, On Sat12/24/19 at 1645, 1 dose lisinopriL (Prinivil;Zestril) tablet 40 mg Given 12/22/2019 9:00 AM EDT 40 mg 40 mg, Oral, DAILY, First dose on Sat12/22/19 at 0900, Until Discontinued, Routine magnesium sulfate 2 g in sterile water 12/20/2019 5:30 PM EDT 2 g 25 mL/hr 50 mL 2 g, Intravenous, ONCE, 1 dose, On Sat12/20/19 at 1745, Administer over 120 Minutes magnesium sulfate 2 g in sterile water 12/21/2019 12:2 8 AM EDT 2 g 25 mL/hr 50 mL 2 g, Intravenous, ONCE, 1 dose, On Sat12/20/19 at 2000, Administer over 120 Minutes, Minimum infusion duration is 2 hours. magnesium sulfate 2 g in sterile water 12/21/2019 5:31 AM EDT 2 g 25 mL/hr 50 mL 2 g, Intravenous, ONCE, 1 dose, On Sat12/21/19 at 0445, Administer over 120 Minutes, Minimum infusion duration is 2 hours. magnesium sulfate 2 g in sterile water 12/21/2019 9:15 PM EDT 2 g 25 mL/hr 50 mL 2 g, Intravenous, ONCE, 1 dose, On Sat12/21/19 at 2100, Administer over 120 Minutes magnesium sulfate 2 g in sterile water New Bag 12/22/2019 4:27 AM EDT 2 g 25 mL/hr 50 mL 2 g, Intravenous, ONCE, 1 dose, On Tu12/22/19 at 0400, Administer over 120 Minutes, Minimum infusion duration is 2 hours. magnesium sulfate 2 g in sterile water New Bag 12/23/2019 4:15 AM EDT 2 g 25 mL/hr 50 mL 2 g, Intravenous, ONCE, 1 dose, On Sat12/23/19 at 0430, Administer over 120 Minutes, Minimum infusion duration is 2 hours. magnesium sulfate 2 g in sterile water New Bag 12/24/2019 4:15 AM EDT 2 g 25 mL/hr 50 mL 2 g, Intravenous, ONCE, 1 dose, On Marianne 12/24/19 at 0430, Administer over 120 Minutes, Minimum infusion duration is 2 hours. magnesium sulfate 2 g in sterile water New Bag 12/25/2019 6:54 AM EDT 2 g 25 mL/hr 50 mL 2 g, Intravenous, ONCE, 1 dose, On Sat12/25/19 at 0645, Administer over 120 Minutes, Minimum infusion duration is 2 hours. magnesium sulfate 2 g in sterile water New Bag 12/26/2019 8:13 AM EDT 2 g 25 mL/hr 50 mL 2 g, Intravenous, ONCE, 1 dose, On Sat12/26/19 at 0800, Administer over 120 Minutes, Minimum infusion duration is 2 hours. magnesium sulfate 2 g in sterile water New Bag 12/27/2019 10:2 3 AM EDT 2 g 25 mL/hr 50 mL 2 g, Intravenous, ONCE, 1 dose, On Sat12/27/19 at 0900, Administer over 120 Minutes melatonin tablet 3 mg Given 12/29/2019 8:02 PM EDT 3 mg 3 mg, Oral, NIGHTLY, First dose on Sat12/25/19 at 2100, Until Discontinued, Routine Given 12/28/2019 8:52 PM EDT 3 mg Given 12/27/2019 9:17 PM EDT 3 mg metoprolol (LOPRESSOR) 5 mg/5 mL injecti on 1 dose, Starting on Sat12/20/19 at 1726, Until 12/10 at 1727, Beverley Sheppard: cabinet override metoprolol (LOPRESSOR) injection 5 mg Given 12/20/2019 6:03 PM EDT 5 mg 5 mg, Intravenous, EVERY 5 MIN PRN, 3 doses, Starting on Sat12/20/19 at 1725, Until Sat12/20/19 at 1803, High Blood Pressure Given 12/20/2019 5:32 PM EDT 5 mg Given 12/20/2019 5:27 PM EDT 5 mg metoprolol (LOPRESSOR) injection 5 mg Given 12/21/2019 3:05 PM EDT 5 mg 5 mg, Intravenous, EVERY 5 MIN PRN, 3 doses, Starting on Sat12/20/19 at 1911, Until Sat12/21/19 at 1505, Elevated Heart Rate Given 12/20/2019 7:43 PM EDT 5 mg Given 12/20/2019 7:19 PM EDT 5 mg metoprolol (LOPRESSOR) injection 5 mg Given 12/23/2019 3:22 AM EDT 5 mg 5 mg, Intravenous, EVERY 5 MIN PRN, Starting on Sat12/23/19 at 0302, Until Sat12/23/19 at 0334, High Blood Pressure metoprolol (LOPRESSOR) injection 5 mg Given 12/24/2019 5:34 PM EDT 5 mg 5 mg, Intravenous, ONCE, 1 dose, On Sat12/24/19 at 1745, Routine metoprolol succinate XL (Toprol-XL) tablet Given 12/29/2019 5:44 PM EDT 150 mg 150 mg 150 mg, Oral, DAILY, First dose on Sat12/27/19 at 1800, Until Discontinued, DO NOT CRUSH OR OPEN, Routine Given 12/28/2019 5:16 PM EDT 150 mg Given 12/27/2019 5:36 PM EDT 150 mg metoprolol tartrate (Lopressor) tablet 12.5 Given 12/10 5:28 PM EDT 12.5 mg mg 12.5 mg, Oral, EVERY 6 HOURS SCHEDULED, First dose on 12/21/19 at 1800, Until Discontinued, Please hold if systolic < 90 or if HR < 60, Routine metoprolol tartrate (Lopressor) tablet 2 5 mg Given 12/22/2019 11:30 PM EDT 25 mg 25 mg, Oral, EVERY 6 HOURS SCHEDULED, First dose (after last modification) on Sat12/22/19 at 0000, Until Discontinued, Please hold if systolic < 90 or if HR < 60, Routine Given 12/22/2019 5:05 PM EDT 25 mg Given 12/22/2019 12:24 PM EDT 25 mg metoprolol tartrate (Lopressor) tablet 2 5 mg Given 12/24/2019 5:52 AM EDT 25 mg 25 mg, Oral, EVERY 6 HOURS SCHEDULED, First dose (after last modification) on Sat12/23/19 at 1200, Until Discontinued, Please hold if systolic < 90 or if HR < 60, Routine Given 12/24/2019 12:21 AM EDT 25 mg Given 12/23/2019 6:03 PM EDT 25 mg metoprolol tartrate (Lopressor) tablet 37.5 Given 12/10 5:37 AM EDT 37.5 mg mg 37.5 mg, Oral, EVERY 6 HOURS SCHEDULED, First dose (after last modification) on Sat12/23/19 at 0600, Until Discontinued, Please hold if systolic < 90 or if HR < 60, Routine metoprolol tartrate (Lopressor) tablet 37.5 Given 12/10 12:42 PM EDT 37.5 mg mg 37.5 mg, Oral, EVERY 6 HOURS SCHEDULED, First dose (after last modification) on Sat12/24/19 at 1200, Until Discontinued, Please hold if systolic < 90 or if HR < 60, Routine Given 12/27/2019 6:00 AM EDT 37.5 mg Given 12/27/2019 12:39 AM EDT 37.5 mg ondansetron (ZOFRAN) injection 4 mg Given 12/29/2019 10:24 AM EDT 4 mg 4 mg, Intravenous, EVERY 8 HOURS PRN, Starting on Sat12/29/19 at 0953, Until Sat12/30/19 at 1452, Nausea oxybutynin (Ditropan) tablet 5 mg Given 12/30/2019 10:01 AM EDT 5 mg 5 mg, Oral, DAILY, First dose on Sat12/29/19 at 0930, Until Discontinued, Routine Given 12/29/2019 9:50 AM EDT 5 mg pantoprazole EC (Protonix) tablet 40 mg Given 12/30/2019 10:01 AM EDT 40 mg 40 mg, Oral, DAILY, First dose on Sat12/25/19 at 1545, Until Discontinued, DO NOT CRUSH OR OPEN, Routine Given 12/29/2019 9:50 AM EDT 40 mg Given 12/28/2019 8:40 AM EDT 40 mg polyethylene glycol (Miralax) packet 17 g Given 12/26/2019 8:13 AM EDT 17 g 17 g, Oral, DAILY, First dose on Sat12/23/19 at 0900, Until Discontinued, Routine Given 12/24/2019 8:25 AM EDT 17 g Given 12/23/2019 9:23 AM EDT 17 g polyethylene glycol (Miralax) packet 17 g 17 g, Oral, DAILY PRN, Starting on Sat at 1000, Until Sat12/30/19 at 1452, Constipation, Routine potassium bicarbonate (Effer-K) effervescent Given 7:03 AM EDT 20 mEq tablet 20 mEq 20 mEq, Oral, ONCE, 1 dose, On Sat12/25/19 at 0715, DO NOT GIVE UNDILUTED MEDICATION TO PATIENT. Dissolve tablet completely in 3-4 ounces of cold water or juice. May further dilute if adverse GI effects occur., Routine potassium chloride 10 mEq in 100 mL New Bag 12/24/2019 3:39 AM EDT 10 mEq 100 mL/hr 10 mEq, Intravenous, EVERY 1 HOUR PRN, Starting on Sat12/20/19 at 1929, Until Sat12/25/19 at 0652, Administer over 60 Minutes, hypokalemia, Administer 2 times 10 meq/100 mL bags, each over 30-60 minutes for serum potassium (mMol/L) of 3.9 - 4 See instructions for Potassium Protocol in online policies. New Bag 12/24/2019 2:33 AM EDT 10 mEq 100 mL/hr potassium chloride 10 mEq in 100 mL New Bag 12/25/2019 5:35 AM EDT 10 mEq 100 mL/hr 10 mEq, Intravenous, EVERY 1 HOUR PRN, Starting on Sat12/20/19 at 1929, Until Sat12/25/19 at 0652, Administer over 60 Minutes, hypokalemia, Administer 4 times 10 meq/100 mL bags, each over 30-60 minutes for serum potassium (mMol/L) of 3.3 - 3.8 See instructions for Potassium Protocol in online policies. New Bag 12/25/2019 4:23 AM EDT 10 mEq 100 mL/hr New Bag 12/23/2019 9:47 PM EDT 10 mEq 100 mL/hr propofoL (DIPRIVAN) 10 mg/mL infusion 1 dose, Starting on 12/20/19 at 1946, Until Sun 12/10 at 2115, Garret Barillas (pravin): cabinet override propofol (DIPRIVAN) New Bag 12/24/2019 9:50 AM EDT 20 mcg/kg/min 1 2.4 mL/hr infusion 0-50 mcg/kg/min ? 103 kg (0-30.9 mL/hr), Intravenous, CONTINUOUS, Starting on 12/20/19 at 2100, Until Marianne 12/24/19 at 1721, Titrate to sedation level of RASS Goal (-)1 to 0 . Start at 20 mcg/kg/min, adjust rate by 10 mcg/kg/min every 3 minutes. Once stable, reassess patient every 30 minutes. Rate not to exceed 50 mcg/kg/minute. Change rate only after assessing and documenting RASS. Reassess sedation scores within 30 minutes after every rate change. If under sedated, increase rate by 10 mcg/kg/min. If over sedated, hold sedative until target RASS (-)1 to 0 achieved and then restart at 50% of previous rate. Call household appliance mechanic if goal not achieved at maximum rate. If SAT is ordered and if patient meets criteria for Spontaneous Awakening Trial, titrate per protocol., Routine Rate/Dose Verify 12/24/2019 6:00 AM EDT 20 mcg/kg/min 12.4 mL/hr Rate/Dose Verify 12/24/2019 4:00 AM EDT 20 mcg/kg/min 12.4 mL/hr senna-docusate (Pericolace) 8.6-50 mg per Given 2019 8:40 AM EDT 2 tablets tablet 2 tablet 2 tablet, Oral, 2 TIMES DAILY, First dose on Sat12/23/19 at 0900, Until Discontinued, Routine Given 12/27/2019 9:17 PM EDT 2 tablets Given 12/26/2019 8:06 PM EDT 2 tablets sodium chloride 0.9 % (flush) flush 5 mL Given 12/29/2019 8:02 PM EDT 5 mLs 5 mL, Intravenous, 2 TIMES DAILY, First dose on Sat12/20/19 at 2100, Until Discontinued, Routine Given 12/28/2019 8:41 AM EDT 5 mLs Given 12/27/2019 9:00 PM EDT 5 mLs sodium chloride 0.9 % (flush) flush 5 mL Given 12/29/2019 9:51 AM EDT 10 mLs 5 mL, Intravenous, 2 TIMES DAILY, First dose on Sat12/25/19 at 1400, Until Discontinued, Routine Given 12/28/2019 8:59 PM EDT 5 mLs Given 12/28/2019 8:39 AM EDT 5 mLs tube feeding diet New Bag 12/22/2019 11:30 AM EDT 240 mLs 10 mL/hr 240 mL, Per G Tube, at 10 mL/hr, CONTINUOUS, Starting on Sat12/22/19 at 1130, Until Sat12/22/19 at 1348, Administer flushes and check residuals per policy tube feeding diet Rate/Dose Change 12/23/2019 9:00 PM EDT 62 mL/hr 1,240 mL, Per G Tube, at 62 mL/hr, CONTINUOUS, Starting on Sat12/22/19 at 1415, Until Sat12/24/19 at 1721, Administer flushes and check residuals per policy Rate/Dose Verify 12/23/2019 6:00 PM EDT 50 mL/hr Rate/Dose Change 12/23/2019 5:31 PM EDT 50 mL/hr tube feeding diet Rate/Dose Verify 12/25/2019 8:00 AM EDT 60 mL/hr 1,600 mL, Per NG tube, CONTINUOUS, Starting on Sat12/24/19 at 1745, Until Sat12/29/19 at 0837, Administer flushes and check residuals per policy Rate/Dose Change 12/25/2019 5:45 AM EDT 60 mL/hr New Bag 12/24/2019 6:55 PM EDT 1,600 mLs 40 mL/hr vancomycin (VANCOCIN) 1,750 mg New Bag 12/21/2019 8:48 PM EDT 1,750 mg 162.9 mL/hr in sodium chloride 0.9% 285 mL 1,750 mg (1.75 g), Intravenous, EVERY 12 HOURS, First dose on 12/20/19 at 2100, Until Discontinued, Administer over 105 Minutes, Maximum infusion rate is 1 gram/hour. If flushing of the face, neck, upper body, arms, and/or back occurs decrease infusion rate by 50% to reduce the severity of symptoms. This medication may have an associated drug lab level. Please see MAR for scheduled level. Warning Vesicant/Irritant Medication , Indication for (Active or Suspected): ORTHOPEDIC SURGEON/Meningitis New Bag 12/21/2019 8:51 AM EDT 1,750 mg 162.9 mL/hr New Bag 12/21/2019 12:12 AM EDT 1,750 mg 162.9 mL/hr documented in this encounter Active and Recently Administered Medications Times are shown in EDT. Scheduled Medication Order 12/28/2019 12/29/2019 12/30/2019 apixaban (Eliquis) tablet 5 mg 2051 (Given - Provider: Rosa Carlisle Rai, JANNETTE) 0950 (Given - Provider: Tamara Sahu, JANNETTE)2001 (Given - Provider: Eh Ruff, JANNETTE) 100 (Given - Provider: Mary Barboza, JANNETTE) 5 mg, Oral, 2 TIMES DAILY, First dose on Sat12/28/19 at 2100, Until Discontinued, Anticoagulant Pharmacy - please time to start this afternoon to replace therapeutic lovenox. Thanks!, Routine atorvastatin (Lipitor) tablet 10 mg 1616 (Given - Provider: Mc Corley RN) 1619 (Given - Provider: Cecelia Azul RN) 10 mg, Oral, EVERY EVENING, First dose o n 12/22/19 at 1700, Until Discontinued, Routine barium sulfate (VARIBAR PUDDING) oral paste 10 mL (COM PLETED) 1415 (Given - Provider: Clarissa Saenz) 10 mL, Oral, ONCE, 1 dose, 12/28/19 at 1415, Routine barium sulfate (Varibar Thin Liquid) oral powder 10 mL (COMPLETED) 1415 (Given - Provider: Clarissa Saenz) 10 mL, Oral, ONCE, 1 dose, 12/28/19 at 1415, Routine carbidopa-levodopa (Sinemet) 25-250 mg per tablet 1 ta blet 0840 (Given - Provider: Mc Corley RN)1215 (Given - Provider: Mc Corley RN)161 (Given - Provider: Mc Corley RN)2051 (Given - Provider: Rosa Carlisle Rai, RN) 0950 (Given - Provider: Tamara Sahu RN)121 (Given - Provider: Tamara Sahu RN)1620 (Given - Provider: Cecelia Azul, JANNETTE)2001 (Given - Provider: Eh Ruff RN) 100 (Given - Provider: Mary Barboza RN ) 1 tablet, Oral, 4 TIMES DAILY, First dos e on Sat12/21/19 at 0900, Until Discontinued, Routine dilTIAZem XR (Dilacor XR) capsule 240 mg 1717 (Given - Provider: Mc Corley RN) 174 (Given - Provider: Tamara Sahu RN) 240 mg, Oral, DAILY, First dose on Sat at 1800, Until Discontinued, DO NOT CRUSH OR OPEN, Routine DULoxetine DR (Cymbalta) capsule 30 mg 1 445 (Given - Provider: Tamara Sahu RN)2001 (Given - Provider: Eh Ruff RN) 100 (Given - Provider: Mary Barboza RN) 30 mg, Oral, 2 TIMES DAILY, First dose o n Sat12/29/19 at 1300, Until Discontinued, Routine enoxaparin (LOVENOX) injection 110 mg (CANCELED) 0840 (Given - Provider: Mc Corley RN) 110 mg, Subcutaneous, EVERY 12 HOURS ENA EDULED (2 times per day), First dose on Sat12/23/19 at 1000, Until Discontinued, Routine entacapone (Comtan) tablet 200 mg 0840 (Given - Provid er: Mc Corley RN)121 (Given - Provider: Mc Corley RN)161 (Given - Provider: Mc Corley RN) 0950 (Given - Provider: Tamara Sahu RN)121 (Given - Provider: Tamara Sahu RN)161 (Given - Provider: Cecelia Azul, JANNETTE) 100 (Given - Provider: Mary Barboza RN) 200 mg, Oral, 3 TIMES DAILY, First dose on 12/21/19 at 0900, Until Discontinued, Routine insulin lispro (HumaLOG) VIAL injection 1-5 Units(Link ed Group 1) 0000 (Not Given - Provider: Lisy Mckeon RN - Reason: Order parameters not met)0402 (Given - Provider: Lisy Mckeon RN)0839 (Not Given - Provider: Mc Corley RN - Reason: Order parameters not met) 0400 (Not Given - Provider: Rosa Carlisle Rai, RN - Reason: Order parameters not met)0800 (Not Given - Provider: Tamara Sahu RN - Reason: Order parameters not met)1214 (Given - Provider: Tamara Sahu, JANNETTE) 0438 (Given - Provider: Eh Ruff RN) 0800 (Not Given - Provider: Mary Barboza RN - Reason: Order parameters not met - Comment: BG [phone] (Due) 1-5 Units, Subcutaneous, EVERY 4 HOURS S CHEDULED, First dose (after last modification) on Marianne 12/24/19 at 1200, Until Discontinued, CORRECTION BOLUS [1-4 Units] Sensitive Sliding Scale: Correction fa 1213 (Given - Provider: Mc Corley RN - Comment: Blood sugar of 191.)161 (Given - Provider: Mc Corley RN)2051 (Given - Provider: Rosa Carlisle Rai, RN)233 (Given - Provider: Rosa Carlisle Rai, RN) 161 (Given - Provider: Cecelia gray RN)2001 (Given - Provider: Eh Ruff RN)234 (Given - Provider: Eh Ruff RN) ctor 40 (1 unit of insulin is expected t o drop the glucose 40 mg/dL) BG 160 - 200 Give 1 unit BG 201 - 240 Give 2 units BG 241 - 280 Give 3 units BG greater than 280, give 4 units and recheck BG in 2 ho urs. - If recheck BG is LESS than 280, g darwin no insulin and resume schedule - If recheck BG is GREATER than 280, give 4 units and repeat BG in 2 hours (no more than 3 times) & call for new insulin or ders. DO NOT hold if NPO, unless specifi erika told to do so. Per Blood Glucose Monitoring Policy, re-check a BG of > 240 in 2 hours., Routine lidocaine (LIDODERM) 5 % patch 1 patch(Linked Group 2) 1044 (Patch Applied - Provider: Tamara Sahu RN - Comment: Dona garcia) 1126 (Patch Applied - Provider: Mary Barboza RN) 1 patch, Transdermal, EVERY 24 HOURS, Fi rst dose on Sat12/29/19 at 1100, Until Discontinued, Apply patch(es) for 12 hours, and then remove for 12 hours, Routine lidocaine (LIDODERM) 5 %(700 mg/patch) Patch Removal(Linked Group 2) 2244 (Patch Removed - Provider: Eh Ruff RN) Transdermal, EVERY 24 HOURS, First dose on Sat12/29/19 at 2245, Until Discontinued, Remove lidocaine 5 %(700 mg/patch) patch melatonin tablet 3 mg 2051 (Given - Provider: Avinash Maldonado Rai) 2001 (Given - Provider: Eh Ruff RN) 3 mg, Oral, NIGHTLY, First dose on Sat at 2100, Until Discontinued, Routine metoprolol succinate XL (Toprol-XL) tablet 150 mg 171 (Given - Provider: Mc Corley RN) 1744 (Given - Provider: Tamara Sahu RN) 150 mg, Oral, DAILY, First dose on Sat at 1800, Until Discontinued, DO NOT CRUSH OR OPEN, Routine oxybutynin (Ditropan) tablet 5 mg 0950 (Given - Provider: Tamara Sahu RN) 1001 (Given - Provider: Mary Barboza RN) 5 mg, Oral, DAILY, First dose on 12/10 at 0930, Until Discontinued, Routine pantoprazole EC (Protonix) tablet 40 mg 0840 (Given - Provider: Mc Corley RN) 0950 (Given - Provider: Tamara Sahu RN) 1001 (Giv en - Provider: Mary Barboza RN) 40 mg, Oral, DAILY, First dose on Sat at 1545, Until Discontinued, DO NOT CRUSH OR OPEN, Routine senna-docusate (Pericolace) 8.6-50 mg per tablet 2 tab let (CANCELED) 0840 (Given - Provider: Mc Corley RN) 2 tablet, Oral, 2 TIMES DAILY, First dos e on Sat12/23/19 at 0900, Until Discontinued, Routine sodium chloride 0.9 % (flush) flush 5 mL 0841 (Given - Provider: Mc Corley RN)2099 (Not Given - Provider: Rosa Carlisle Rai, RN - Reason: Contraindicated) 09 (Not Given - Provider: Tamara Sahu RN - Reason: See comment - Comment: duplicate order)2001 (Given - Provider: Eh Ruff RN) 09 (Not Given - Provider: Mary Barboza RN - Reason: See comment - Comment: duplicate order) 5 mL, Intravenous, 2 TIMES DAILY, First dose on Sat12/20/19 at 2100, Until Discontinued, Routine sodium chloride 0.9 % (flush) flush 5 mL 0839 (Given - Provider: Mc Corley RN)2058 (Given - Provider: Rosa Carlisle Rai, RN) 09 (Given - Provider: Tamara Sahu RN)2100 (Not Given - Provider: Eh Ruff RN - Reason: See comment) 09 (Not Given - Provider: Mary Barboza RN - Reason: See comment - Comment: already given) 5 mL, Intravenous, 2 TIMES DAILY, First dose on Sat12/25/19 at 1400, Until Discontinued, Routine PRN Medication Order 12/28/2019 12/29/2019 12/30/2019 acetaminophen (Tylenol) tablet 650 mg 10 44 (Given - Provider: Tamara Sahu RN)2332 (Given - Provider: Eh Ruff RN) 650 mg, Oral, EVERY 6 HOURS PRN, Startin g 12/29/19 at 1038, Until Sat12/30/19 at 1452, Pain, Maximum dose of acetaminophen is 4000 mg from all sources in 24 hours., STAT dextrose 10% infusion(Linked Group 3) 250 mL, at 1,000 mL/hr, Intravenous, MELA RY 30 MIN PRN, Starting 12/21/19 at 0140, Until Sat12/30/19 at 1452, For BG 50-70 mg/dL: Oral treatment preferred:?? [...] the duration of the active insulin. glucagon (human recombinant) injection SolR 1 mg(Linked Group 3) 1 mg, Intramuscular, EVERY 30 MIN PRN, S tarting 12/21/19 at 0140, Until 12/30/19 at 1452, Low blood sugar, For BG 50-70 mg/dL: [...] active insulin., Routine glucose (GLUTOSE) 40% oral gel(Linked Group 3) 15-30 g, Buccal, EVERY 30 MIN PRN, Start ing 12/21/19 at 0140, Until Sat12/30/19 at 1452, Low blood sugar, For BG 50-70 mg/dL: [...] weight of tube = 37.5 grams., Routine lidocaine (XYLOCAINE) 10 mg/mL (1 %) injection 3 mg 3 mg (0.3 mL), Subcutaneous, ONCE PRN, 1 dose, Starting 12/20/19 at 1720, Until Sat12/30/19 at 1452, for discomfort with PIV insertion, Routine lidocaine (XYLOCAINE) 10 mg/mL (1 %) injection 3 mg 3 mg (0.3 mL), Subcutaneous, ONCE PRN, 1 dose, Starting Sat12/25/19 at 1343, Until Sat12/30/19 at 1452, for discomfort with PIV insertion, Routine ondansetron (ZOFRAN) injection 4 mg 1024 (Given - Provider: Tamara Sahu RN) 4 mg, Intravenous, EVERY 8 HOURS PRN, [facility] hospital Sat12/29/19 at 0953, Until Sat12/30/19 at 1452, Nausea polyethylene glycol (Miralax) packet 17 g 17 g, Oral, DAILY PRN, Starting Mon 12/27 at 1000, Until Sat12/30/19 at 1452, Constipation, Routine sodium chloride 0.9 % (flush) flush 5-20 mL 5-20 mL, Intravenous, EVERY 1 MIN PRN, S tarting 12/20/19 at 1720, Until Sat12/30/19 at 1452, flush, Flush pertains to all indwelling lines. Flush per protocol found in the job aid using the link provided on this medication record., Routine sodium chloride 0.9 % (flush) flush 5-20 mL 5-20 mL, Intravenous, EVERY 1 MIN PRN, S tarting 12/25/19 at 1343, Until Sat12/30/19 at 1452, flush, Flush pertains to all indwelling lines. Flush per protocol found in the job aid using the link provided on this medication record., Routine Linked Groups Order Group 1: POCT Fingerstick Glucose (CANCELED) Routine, EVERY 4 HOURS, First occurrence on [facility] 12/24/19 at 1200, Until Specified
Consider choosing FOUR TIMES A DAY BEFORE MEALS AND AT BEDTIME as frequency for: Patients who have good hypoglyc emia awareness: -Patients who are eating meals during the day and sleeping at night -Patient who are otherwise stable And insulin lispro (HumaLOG) VIAL injection 1-5 UnitsJump to med 1-5 Units, Subcutaneous, EVERY 4 HOURS S CHEDULED, First dose (after last modification) on Marianne 12/24/19 at 1200, Until Discontinued
CORRECTION BOLUS [1-4 Units] Sensitive Sliding Sca le: Correction factor 40 (1 unit of insu sy is expected to drop the glucose 40 mg/dL) BG 160 - 200 Give 1 unit BG 201 - 240 Give 2 units BG 241 - 280 Give 3 unit s BG greater than 280, give 4 unit s and recheck BG in 2 hours. - If recheck BG is LESS than 280, give no insulin and resume schedule - If recheck BG is GREATER than 280, giv e 4 units and repeat BG in 2 hours (no m ore than 3 times) & call for new insulin orders. DO NOT hold if NPO, unless specifically told to do so. &a mp;nbsp; Per Blood Glucose Mo nitoring Policy, re-check a BG of > 240 in 2 hours.
Routine Group 2: lidocaine (LIDODERM) 5 % patch 1 patchJump to med 1 patch, Transdermal, EVERY 24 HOURS, Fi rst dose on Sat12/29/19 at 1100, Until Discontinued
Apply patch(es) for 12 hours, and then remove for 12 hours
Routine And lidocaine (LIDODERM) 5 %(700 mg/patch) Patch RemovalJump to med Transdermal, EVERY 24 HOURS, First dose on Sat12/29/19 at 2245, Until Discontinued
Remove lidocaine 5 %(700 mg/patch) patch
Group 3: glucose (GLUTOSE) 40% oral gelJump to med 15-30 g, Buccal, EVERY 30 MIN PRN, Start ing Sat12/21/19 at 0140, Until Sat12/30/19 at 1452, Low blood sugar
For BG 50-70 mg/dL: [...] Intravenous, MELA RY 30 MIN PRN, Starting 12/21/19 at 0140, Until Sat12/30/19 at 1452
For BG 50-70 mg/dL: Oral treatment preferred:?? If able to drink, give 120 mL J uice or Regular (not diet) soda OR If [employer] O, give 15 gram glucose 40% oral [...] duration of the active insulin.
Or glucagon (human recombinant) injection SolR 1 mgJump to med 1 mg, Intramuscular, EVERY 30 MIN PRN, S tarting 12/21/19 at 0140, Until Sat12/30/19 at 1452, Low blood sugar
For BG 50-70 mg/dL: [...]
Routine documented in this encounter Care Teams Manager Retail Relationship Specialty Start Date End Date Griselda Stanley MD PCP - General 07/04/10 02/03/22 documented as of this encounter
--- OUTSIDE RECORDS SUMMARY | 2022-02-26 04:00 | XMS_ITS | Encounter Summary ---
:1955 [place] [address] Care Team Providers Name Role Phone Griselda Stanley MD Primary Care Provider Encounter Details Date Type Department Care Team Description 12/20/2019 [facility] [place] [address] Social History Tobacco Use Types Packs/Day [...] 03/20/2022 Office Visit Neurology Vishnu Hooper MD [facility] ER NEUROLOGY DEPT. [place], [place] [address] (Wo rk) documented as of this encounter Procedures Procedure Name Priority Date/Time Associated Diagnosis Comme nts CMV ANTIBODY, IGM Routine 12/20/2019 3:28 PM Resu lts for this EDT procedure are i n the results section. documented in this encounter Results CMV Antibody, IgM (12/20/2019 3:28 PM EDT) P athologist Signature CMV IgM Negative Negative [facility] Specimen Anatomical Collection Method Collection Time Receive d Time (Source) Location / / Volume Laterality Blood specimen Venous Draw / 12/20/2019 3:28 PM 2019 7:34 (specimen) Unknown EDT AM EDT Resulting Agency Comment Spec In Lab Lab IMMUNOLOGY ORDERABLES Performing Organization Address City/State/[place] [address] documented in this encounter Visit Diagnoses Not on filedocumented in this encounter Care Teams Rn Bariatric Relationship Specialty Start Date End Date Griselda Stanley MD PCP - General 07/04/10 02/03/22 documented as of this encounter
--- OUTSIDE RECORDS SUMMARY | 2022-02-26 04:01 | XMS_ITS | Encounter Summary ---
:1955 [place] [address] Care Team Providers Name Role Phone Griselda Stanley MD Primary Care Provider Encounter Details Date Type Department Care Team Description 06/24/2017 Hospital Encounter Same Day Program at [facility] [place] [address] [place] [address] [place] [address] [phone] (Wo rk) Social History Tobacco Use Types [...] Sign Reading Time Taken Comments Blood Pressure 151/89 06/24/2017 10:30 AM EST Pulse 61 06/24/2017 6:35 AM EST Temperature 36.7 ??C (98.1 ??F) 06/24/2017 9:23 AM EST Respiratory Rate 18 06/24/2017 10:30 AM EST Oxygen Saturation 95% 06/24/2017 11:00 AM EST Inhaled Oxygen Concentration - - Weight 100.3 kg (221 lb 1.9 oz) 06/24/2017 6:35 AM EST Height 185.4 cm (6' 1) 06/24/2017 6:35 AM EST Body Mass Index 29.17 06/24/2017 6:35 AM EST documented in this encounter Discharge Instructions Discharge InstructionsJulián Aguilar RN - 06/24/2017 11:01 AM EST POST ANESTHESIA INSTRUCTIONS Go home, rest, use caution on stairs. Change positions slowly. Do not smoke if you are alone. Diet light to regular as tolerated today. If nausea occurs start with clear liquids and progress slowly. No driving, operating machinery, alcoholic beverages and no important decisions for 24 hours. Monitor IV site for signs and symptoms of infection: increasing redness, swelling, foul drainage, ifoccurs contact M.D. Patients who have had endotrachial tubes (this tube, used by anesthesia department, is passed down your throat after you are asleep, to ensure safe air passage during your operation). A sore throat is normal due to the tube. Cold liquids or soothing lozenges will help ease the discomfort. The generalized muscle aches are due to the medication given to you just before the tube is inserted. As the medication wears off, you may develop muscle soreness, which usually goes away in 12-24 hours. Patient InstructionsBraxton Hoang MD - 06/24/2017 9:18 AM EST DBS Discharge Instructions You had the following procedure during this hospitalization: - DBS battery placement What to Expect.... The healing process varies with each person. Pain (short term and mcc) ??? With any surgery there is some discomfort or pain. Please acetaminophen (tylenol) for pain, which is available over the counter. ??? Drink plenty of water. ??? You will may have nerve pain after your surgery because the nerve endings have been disturbed. Nerve pain may feel like a burning sensation, itching or a shooting, electric shock pain. This is normal and will get better as you heal. Medications Anti-parkinson's medications ?? Please continue to take your home medications as directed by your neurologist Showering Typically, you may shower 48 hours following your surgery. Do not take a bath or use a hot tub untilincisions are completely healed. Incisions/Dressings ??? You may have some red, pink, yellow/clear drainage from your incisions for the first 1-2 weeks. Change dressings as needed. ??? Keep incisional site clean and dry. You can remove your dressing 2 days after surgery. ??? You may shower and shampoo incisional site, per your usual routine 4 days after surgery. ??? Your sutures are absorbable Activity (???If it hurts, don???t do it?? ) ??? Please try to walk as much as possible. This will help prevent a DVT (see below). ??? Do not lift more than 3-5 pounds (a gallon of milk). Restrict other strenuous activity (such as running, jumping, jogging, vacuuming, shoveling, etc). You will be advised at your follow-up appointment when you may resume these activities. ??? Driving Restrictions : ?? Do NOT drive until cleared by Neurosurgery. ?? Do NOT drive when you are on narcotic pain medications, OR if pain limits your range of motion orreaction time. ?? Do NOT drive if you have a seizure disorder Diet ?? Eat a well-balanced diet. Fresh fruits, vegetables and fiber-containing foods are recommended. This is necessary for your wound to heal. ?? If you experience constipation (difficulty with hard stools), prune juice or prunes, stool softeners (such as Colace), or mild laxatives, (such as Sennakot or Milk of Magnesia), may be used as needed. These qzoh-ndo-kazvwds (OTC) medications are available at your pharmacy without a prescription. Call the neurosurgery PARAMEDICAL AIDE tape making machine operator if you have questions. Complications Call your doctor with the following signs of infection: ??? a temperature over 100.4 F or 38 C ??? redness at the incision line that spreads away from the incision after the first 48 hours ??? thick yellow, foul smelling drainage ??? increasing pain that is not relieved by your pain medicine ??? Inability to keep fluids down due to nausea or vomiting Call your doctor with the following signs of DVT (deep vein thromobsis: this is a blood clot that develops in a deep vein, usually in the leg. It can lead to serious complications if a piece of the clot breaks off and travels to the lungs.) ??? Swelling of the leg ??? Warmth/redness of the leg ??? Chest pain or shortness of breath ??? Pain in the leg, which can be worse when standing or walking PLEASE CALL FOR: ?? Worsening headaches not controlled with your pain medication ?? Drowsiness/mental confusion ?? Unsteadiness when walking/new weakness ?? New visual changes ?? Nausea/vomiting not controlled with anti-nausea medication ?? Slurred speech ?? Convulsions/seizures Follow-up Appointments: Your sutures are absorbable. Please call with any questions or concerns. Contact your Doctor Office Hours: Saturday through Ghassan, 8am-5pm. Call . On weekends or after office hours: Call [phone] and ask the solution make up operator to page the Neurourgery Resident outplacement consultant. IMPORTANT PHONE NUMBERS: Outpatient Nurse (Geeta Rees) Inpatient Nurses Neurosurgical Resident Risk Assessor (after 5pm or before 8am) Neurosurgery offices (between 8am-5pm): Dr. Vaz Dr. Arguello: Pediatric Patients , Adult Patients Dr. Tran Dr. Sapp Fidel Han, Physician Consumer Insights Specialist * Your surgeon may not be call box wirer, so be ready to tell about yourself and your surgery when you call, especially after hours or on the weekend. documented in this encounter Medications at Time of Discharge Medication Sig Dispensed Refills Start Date End Date acetaminophen (TYLENOL) Take 1,000 mg by 0 500 mg Tablet mouth every 6 hours as needed for Pain. cholecalciferol, Vitamin Take 1,000 Units by 0 D3, 1,000 unit Tablet mouth daily. omeprazole (PRILOSEC) 40 Take 40 mg by mouth 0 mg Capsule, Delayed daily as needed. 1 Release(E.C.) capsule three times weekly cephalexin (KEFLEX) 500 Take 1 capsule by 20 capsule 0 06/2406/29/2017 mg Capsule mouth 4 times daily for 5 days. citalopram (CELEXA) 40 mg Take 1 tablet by 30 tablet 1 03/1311/18/2018 Tablet mouth daily. busPIRone (BUSPAR) 7.5 mg Take 1 tablet by 90 tablet 5 03/1201/29/2019 Tablet mouth 3 times daily. benztropine (COGENTIN) 1 Take 1 mg by mouth 0 01/23/2019 mg Tablet daily. melatonin 3 mg Tablet Take 6 mg by mouth 0 12/30/2020 nightly as needed. lisinopril Take 1 tablet by 0 08/31/2015 12/30/19 20 (PRINIVIL;ZESTRIL) 40 mg mouth daily. Tablet simvastatin (ZOCOR) 20 mg Take 20 mg by mouth 0 12/30/2019 tablet nightly. carbidopa-levodopa Take 1 tablet by 0 08/23/2020 (SINEMET) 25-250 mg per mouth 4 times tablet daily. metFORMIN (GLUCOPHAGE) Take 1,000 mg by 0 12/30/2020 500 mg tablet mouth 2 times daily (with meals). metoprolol (LOPRESSOR) Take 100 mg by 0 12/30/2019 100 mg tablet mouth 2 times daily. documented as of this encounter H&P Notes Braxton Hoang MD - 06/24/2017 7:15 AM EST 24-HOUR UPDATE Timbo Su was seen in SDP. No interval events or changes in health status since preoperative H+P (see EPIC). Denies angina/dyspnea/fevers or malaise within the last 14 days. All questions were answered. Stable for surgery as scheduled. documented in this encounter Miscellaneous Notes Op Note - [facility] MD - 06/24/2017 11:32 AM EST [facility] Patient Name: Timbo Su : [id number] MR#: [id number] Case Date: 06/24/2017 Surgeon: Surgeon(s) and Role: * [facility] MD - Primary * Braxton Hoang MD - Resident-Surgeon Medardo Preoperative diagnosis: PARKINSON'S Postoperative diagnosis: PARKINSON'S Procedure: Tunneling of electrode extensions and placement of LEFT infraclavicular pulse generator with connection to TWO electrode arrays Anesthesia: General Estimated Blood Loss: 20 mL Specimens removed during surgery: None Drains: None Surgical Closure: Primary Closure - closure of ALL tissue levels during the original surgery regardless of wires, wickes, drains, or other devices extruding through the incision Disposition: awakened from anesthesia, extubated and taken to the recovery room in a stable condition, having suffered no apparent untoward event. Condition: doing well without problems (Please see the Surgical Encounter Summary for any Implant and Specimen details pertinent to this patient.) HPI/Surgical Indications: 61 yo man with Parkinson's Disease s/p DBS electrode placement last week now presenting for tunneling of extension leads and placement of pulse generator. Procedure Description: The patient was brought to the operating room and transferred from the stretcher to the operating room table. He was monitored by the anesthesia team. Following induction of general anesthesia, He was intubated by the anesthesia team. He was then positioned supine with his head resting on a cerebellarheadrest, turned to the right side. We planned on re-opening his prior cranial incision. A 4 cm linear incision was drawn 2 cm below the clavicle on the left. The hair between the two incisions was shaved along her scalp and chest. All pressure points were well padded. Pre-operative antibiotics were given. The area was then prepped and draped in the usual sterile fashion. [facility] mandated hard-stop time out was then performed, confirming the patient's name, procedure, laterality, and imaging. We then began by injecting local anesthetic, 0.5% marcaine with epinephrine, along the chest incision. We began by using Metzenbaum scissors to re-open the scalp incision cutting the prior galeal sutures. We then were able to identify both distal electrode ends and teased both through the partial re- opening of his scalp incision. We identified the right-sided electrode by the cut tip of the cap of the electrode. We then turned our attention to creating the pocket for the pulse generator. A #10 blade was used to incise the skin. Hemostasis was obtained via bipolar cautery. We then used blunt dissection to c reate a 5 cm x 4 cm pocket to fit the pulse generator. We then used the [employer] tunneler to tunnelsubcutaneously from the cranial incision to the chest site. We encountered a tight band along the side of his head, and so made a small transverse incision and exited the skin. We then used the tunneler to go from this incision behind his ear to the chest incision. We then fitted the extension wire carrier on to the tunneler and as we removed the tunneler from the retroauricular incision, pulled the extension wires from the chest to the head. We then passed the tunneler again from the cranial incision to behind his ear, and again fitted the dual extension carrier to the tunneler, finally pulling the extension leads all the way to cranial wound. We then removed the existing cap and boot from the left-sided electrode and placed the new boot on the electrode. The left electrode was then attached to the extension cable and secured in place with the 4 screws at each contact. The boot was then fitted in place and 3-0 silk ties placed at each end. We then attached the distal end to the [employer] pulsegenerator. We repeated this procedure for the right-sided lead, using the white radio-opaque boot. We then tested the impedance and found no problems with either side. Excess wire was gently placed into the cranial pocket and the excess distal wire coiled behind the IPG, which was then placed in to the infraclavicular pocket. We then copiously irrigated both wounds with bacitracin irrigation. For thescalp wounds, galea was closed with inverted 3-0 vicryl sutures followed by running 4-0 vicryl rapide and dermabond. For the chest, deep tissues were closed with a layer of 3-0 vicryl, followed by a layer of deep dermal 3-0 vicryl sutures, and finally, subcutaneous running 4-0 vicryl rapide, followed by dermabond. A sterile gauze dressing was then applied over the chest incision. The patient was thenallowed to awaken from anesthesia and was successfully extubated. He was awake, alert, and followingcommands in all extremities. He was then taken to the recovery room. Infection Bundle used? See Brief Op note Attestation: Case Date: 06/24/2017 I was present and I participated during the entire procedure (does not need to include opening and closing). [facility] MD 06/24/2017 Brief Op Note - Braxton Hoang MD - 06/24/2017 9:44 AM EST Brief Operative Note Patient Name: Timbo Su : [id number] MR#: [id number] Case Date: 06/24/2017 Surgeon: Surgeon(s) and Role: * [facility] MD - Primary * Braxton Hoang MD - Resident-Surgeon Medardo Preoperative diagnosis: PARKINSON'S Postoperative diagnosis: PARKINSON'S Procedure(s): PLACEMENT ADD'L CRANIAL NEUROSTIMULATOR (WRVU 9.93) MODIFIER MOVEMENT DISORDER MODIFIER DBS Anesthesia: General Findings: Successful placement of LEFT IPG Complications: None Estimated Blood Loss: 20 mL Specimens removed during surgery: None Fluids: Intraprocedure Crystalloid Total None Fluids: ANES IntraOp Crystalloid (Filter: (AN Fluids) Medications Shown) Medication Calculated Total No medications were administered. Blood: none Urine Output: (no blood products) Drains: None Disposition: awakened from anesthesia, extubated and taken to the recovery room in a stable condition, having suffered no apparent untoward event. Condition: doing well without problems (Please see the Surgical Encounter Summary for any Implant and Specimen details pertinent to this patient.) Infection Bundle used? Yes, Neurosurgery ANES IntraOp Crystalloid (Filter: (AN Fluids) Medications Shown) Medication Calculated Total No medications were administered. documented in this encounter Plan of Treatment Upcoming Encounters Date Type Specialty Care Team Description 03/20/2022 Office Visit Neurology Vishnu Hooper MD [facility]. [place], [place] [address] (Wo rk) documented as of this encounter Procedures Procedure Name Priority Date/Time Associated Comments Diagnosis POCT GLUCOSE Routine 06/24/2017 10:39 Results for this AM EST procedure are i n the results section. MODIFIER DBS 06/24/2017 7:34 PARKINSON'S AM EST MODIFIER MOVEMENT 06/24/2017 7:34 PARKINSON'S DISORDER AM EST PLACEMENT ADD'L CRANIAL 06/24/2017 7:34 PARKINSON'S NEUROSTIMULATOR (WRVU AM EST 9.93) POCT GLUCOSE Routine 06/24/2017 6:55 Results for this AM EST procedure are i n the results section. IMPLANTABLE DEVICES SCAN 06/24/2017 12:00 Results for this AM EST procedure are i n the results section. documented in this encounter Results POCT Glucose (06/24/2017 10:39 AM EST) athologist Signature POC Glucose 148 65 - [facility] Comment: Supplemental ranges: <140 mg/dL before meals <180 mg/dL all other times of the day Specimen Anatomical Collection Method Collection Time Receive d Time (Source) Location / / Volume Laterality Blood specimen 06/24/2017 10:39 7 (specimen) AM EST 10:39 AM EST [facility] MD POINT OF CARE TEST ORDERABLE S Performing Organization Address City/State/[place] [address] POCT Glucose (06/24/2017 6:55 AM EST) athologist Signature POC Glucose 119 65 - 199 [facility]dL [facility] Comment: Supplemental ranges: <140 mg/dL before meals <180 mg/dL all other times of the day Specimen Anatomical Collection Method Collection Time Receive d Time (Source) Location / / Volume Laterality Blood specimen 06/24/2017 6:55 AM 017 6:55 (specimen) EST AM EST [facility] MD POINT OF CARE TEST ORDERABLE S Performing Organization Address City/State/[place] [address] SCAN DOC: IMPLANTABLE DEVICES (06/24/2017 12:00 AM EST) Narrative 06/24/2017 12:00 AM EST This result has an attachment that is no t available. Ordered by an unspecified provider. Scanning Provider MEDIA MGR SCAN EXT ORDR/RSLT documented in this encounter Visit Diagnoses Not on filedocumented in this encounter Administered Medications Inactive Administered Medications - up to 3 most recent administrations Medication Order MAR Action Action Date Dose Rate Site acetaminophen (TYLENOL) tablet Given 06/24/2017 11:45 AM EST 650 mg 650 mg 650 mg, Oral, EVERY 4 HOURS PRN, Starting on Sat06/24/17 at 0921, Until Sat06/24/17 at 1431, Pain, Maximum dose of acetaminophen is 4000 mg from all sources in 24 hours., Routine cefTRIAXone (ROCEPHIN) 2g in dextrose 5% 50mL Given 06/24/2017 7:54 AM EST 2 g 2 g, Intravenous, EVERY 24 HOURS, First dose on Sat06/24/17 at 0745, Until Discontinued, Administer over 30 Minutes, Indication for (Active or Suspected): Prophylaxis lactated Ringers infusion 1,000 New Bag 06/24/2017 7:05 AM EST 1,000 mLs 100 mL/hr mL 1,000 mL, at 100 mL/hr, Intravenous, CONTINUOUS, Starting on Sat06/24/17 at 0700, Until Sat06/24/17 at 1224, Day of Surgery (Day of Procedure) lidocaine (XYLOCAINE) 10 mg/mL (1 %) injection Given 1 08/24/2016 7:05 AM EST 3 mg 3 mg 3 mg (0.3 mL), Subcutaneous, ONCE PRN, 1 dose, Starting on Sat06/24/17 at 0632, Until Sat06/24/17 at 0705, for discomfort with PIV insertion, Day of Surgery (Day of Procedure), Routine oxyCODONE (ROXICODONE) immediate release tablet 5 mg 5 mg, Oral, EVERY 4 HOURS PRN, Starting on Sat06/24/17 at 0921, Until Sat06/24/17 at 1431, Pain, Routine vancomycin 1.5 g in sodium New Bag 06/24/2017 7:28 AM EST 1.5 g 166.7 mL/hr chloride 0.9% 250 mL 1.5 g, Intravenous, ONCE, 1 dose, On Sat06/24/17 at 0745, Administer over 90 Minutes, Maximum infusion rate is 1 gram/hour. If flushing of the face, neck, upper body, arms, and/or back occurs decrease infusion rate by 50% to reduce the severity of symptoms. This medication may have an associated drug lab level. Please see MAR for scheduled level. Warning Vesicant/Irritant Medication , Indication for (Active or Suspected): Prophylaxis documented in this encounter Active and Recently Administered Medications Times are shown in EST. Scheduled Medication Order 06/22/2017 06/23/2017 06/24/2017 cefTRIAXone (ROCEPHIN) 2g in dextrose 5% 50mL 0754 (Given - Provider: Estela Stone CRNA) 2 g, Intravenous, EVERY 24 HOURS, First dose on Sat06/24/17 at 0745, Until Discontinued, Administer over 30 Minutes, Indication for (Active or Suspected): Prophylaxis vancomycin 1.5 g in sodium chloride 0.9% 250 mL (COMPLETED) 0728 (New Bag - Provider: Yolis Barnett, JANNETTE)0858 (Due: Stopped - Provider: Yolis Barnett RN) 1.5 g, Intravenous, ONCE, 1 dose, Sat at 0745, Administer over 90 Minutes, Maximum infusion rate is 1 gram/hour. If flushing of the face, neck, upper body, arms, and/or back occurs decrease inf usion rate by 50% to reduce the severity of symptoms. This medication may have an associated drug lab level. Please see MAR for scheduled level. Warning Vesicant/Irritant Medication , Indication for (Active or Suspected): Prophylaxis Continuous Medication Order 06/22/2017 06/23/2017 06/24/2017 lactated Ringers infusion 1,000 mL (CANCELED) 0705 (New Bag - Provider: Yolis Barnett RN)0901 (Anesthesia Volume Adjustment - Provider: Estela Stone CRNA) 1,000 mL, at 100 mL/hr, Intravenous, CON TINUOUS, Starting Sat06/24/17 at 0700, Until Sat06/24/17 at 1224, Day of Surgery (Day of Procedure) PRN Medication Order 06/22/2017 06/23/2017 06/24/2017 acetaminophen (TYLENOL) tablet 650 mg 1145 (Given - Provider: Julián Aguilar RN) 650 mg, Oral, EVERY 4 HOURS PRN, Startin g Sat06/24/17 at 0921, Until Sat06/24/17 at 1431, Pain, Maximum dose of acetaminophen is 4000 mg from all sources in 24 hours., Routine bacitracin injection (CANCELED) 821 (Given - Provider: Braxton Hoang MD) ONCE PRN, Starting Sat06/24/17 at 0822, Until Sat06/24/17 at 1431, Intra- Operative (Intra-Procedure), Routine BUpivacaine-EPINEPHrine 0.25 %-1:200,000 injection (CANCELED) 820 (Given - Provider: Braxton Hoang MD) ONCE PRN, Starting Sat06/24/17 at 0821, Until Sat06/24/17 at 1431, Intra- Operative (Intra-Procedure), Routine lidocaine (XYLOCAINE) 10 mg/mL (1 %) injection 3 mg (COMPLETED) 0705 (Given - Provider: Yolis Barnett RN) 3 mg (0.3 mL), Subcutaneous, ONCE PRN, 1 dose, Starting Sat06/24/17 at 0632, Until Discontinued, for discomfort with PIV insertion, Day of Surgery (Day of Procedure), Routine oxyCODONE (ROXICODONE) immediate release tablet 5 mg 5 mg, Oral, EVERY 4 HOURS PRN, Starting Sat06/24/17 at 0921, Until Sat06/24/17 at 1431, Pain, Routine documented in this encounter Care Teams Hand Candy Cutter Relationship Specialty Start Date End Date Griselda Stanley MD PCP - General 07/04/10 02/03/22 documented as of this encounter
--- OUTSIDE RECORDS SUMMARY | 2022-02-26 04:01 | XMS_ITS | Encounter Summary ---
:1955 Author Organization [facility] [place] [address] Care Team Providers Name Role Phone Griselda Stanley MD Primary Care Provider Encounter Details Date Type Department Care Team Description 07/25/2017 [place] [facility] [place]eta Rees S/Quintin deep brain [facility] L, [place] [phone] Social History Tobacco Use Types Packs/Day [...] place to sleep or slept in a intermediate (including now)? Sex Assigned at Date Recorded Not on file documented as of this encounter Progress Notes Geeta Rees RN - 07/25/2017 9:30 AM EST Samuel is a 61 year old man diagnosed with Parkinson's disease in 1996. He first noticed a tremor in the left hand that progressed to the right hand and later to the lower extremities. He doesn't have tremor normally at rest when relaxed but mostly with activity. He c/o bradykinesia, stiffness, shufflingwhen tired, and dyskinesias 40 min after taking his medication. Samuel c/o feeling tired a lot. He is taking Sinemet and Cogentin, which he stopped for a while due to decreased memory but his tremor worsened so he resumed it. His has noticed some confusion as to the day, since restarting it in March. Samuel is s/p bilateral Active GPi DBS placement on 06/17/17 and IPG placement on 06/24/17. Samuel is accompanied by his , Bela. He is alert, oriented, and appropriate in NAD. His speech is clear but Bela reports he has more difficulty getting words out when tired. He SHAW well with very little rigidity today. Jmtrzk-rf-cpod testing is without dysmetria. His ambulation is steady without a cane. Samuel states he feels better with less rigidity, bradykinesia, and tremor. He doesn't remember the last time he had dyskinesia. He feels his balance has improved. Samuel reports he is having less difficulty putting his seatbelt on and Bela reports he is able to get into chairs at the table easier. Samuel has a slight intermittent left hand tremor. Samuel fell two weeks prior to surgery and suffered a thoracic fracture and was recently diagnosed withan ulcer, both of which could have contributed to the anxiety and difficulty with initial programming. Overall he feels much better now and is pleased with his progress. They had increased the amplitude by 7/10's since I last saw him with the last increase of 1/10th 2 days ago. Samuel reports he had a bubbly feeling in the left arm that subsided over the course of that day. I increased the amplitude by 2/10's today which he tolerated well. 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 LEFT? Electrodes ?? Amplitude ?? Width ?? Rate ?? Original settings ?? Case + 1 - 1.7 90 150 ? Final settings ?? Case + 1 -?? 1.9 90 ?? 150 ? RIGHT? Electrodes ?? Amplitude ?? Width ?? Rate ?? Original settings ?? 9 - 10 + 1.7 90 150 ? Final settings ?? 9 - ??10 + 1.9 90 ?? 150 ?? I will see Samuel prn. He knows to call with questions or concerns. A total of 30 minutes was spent in assessment, DBS programming, education, and evaluation. documented in this encounter Plan of Treatment Upcoming Encounters Date Type Specialty Care Team Description 03/20/2022 Office Visit Neurology Vishnu Hooper MD [facility] NEUROLOGY DEPT. [place], [place] [address] (Wo rk) documented as of this encounter Visit Diagnoses Diagnosis S/P deep brain stimulator placement documented in this encounter Care Teams Handkerchief Sample Clerk Relationship Specialty Start Date End Date Griselda Stanley MD PCP - General 07/04/10 02/03/22 documented as of this encounter
--- OUTSIDE RECORDS SUMMARY | 2022-02-26 04:01 | XMS_ITS | Encounter Summary ---
:1955 [place] [address] Care Team Providers Name Role Phone Griselda Stanley MD Primary Care Provider Reason for Visit Auth/Cert Specialty Diagnoses / Procedures Referred By Contact Refer red To Contact Diagnoses Parkinson's disease PARKINSON'S unknown Procedures PRO IMPLANT NEUROELECTRODE PRO IMPLANT NEUROELECTRDE, ADDL @IMPLANTATION OF NEUROSTIMULATOR ELECTRODE-LISBETH (WRVU 33.03) @IMPLANTATION OF ADD'L NEUROSTIMULATOR ELECTRODE (WRVU 7.91) MODIFIER MOVEMENT DISORDER MODIFIER DBS Referral ID Status Reason Start Date Expiration Date Visits Requ ested Visits Authorized [id number] 1 1 Encounter Details Date Type Department Care Team Description 06/17/2017 Anesthesia Event [facility] Vonnie Bauer MD [facility] [place] [address] [place] [facility] Kaila Pendleton CRNA [facility] [place] [address] [facility] [place] [address] Anesthesia Record Procedure Summary Procedure Name Responsible Anesthesia Start Anesthesia Stop Anesthesiologist Time Time @IMPLANTATION OF Doroteo Bauer MD 06/17/17 0736 06/17/17 1152 NEUROSTIMULATOR ELECTRODE-LISBETH (WRVU 33.03) (Bilateral Head) Events Date Time Event Comment 06/17/2017 0704 0736 AN Verify 0736 Start 0736 An Start Data 0744 Anesthesia Ready 0950 Quick Note Artifacts of NIB P As testing of tremor in R UE occurring 1132 an stop data 1152 Recovery or ICU Handoff Patient care was transferred to the destination unit staff after review of the patient's medica l history, current anesthetic/surgi abelardo status and plan, according to the Provider Handoff Checklist. 1152 Stop Name Total Midazolam 4 mg fentaNYL 100 mcg IV Lidocaine 40 mg Propofol INF 482.93 mg cefTRIAXone (ROCEPHIN) 2g in dextrose 5% 50mL 2 g vancomycin 1.5 g in sodium chloride 0.9% 250 mL 1.5 g Dexmedetomidine 24 mcg Dexmedetomidine INF 44.24 mcg lactated Ringers infusion 1,000 mL 400 mL Agents Name O2 Blood No blood administrations on file. Lines, Drains, and Airways Type Details Placement Removal Pressure Injury 06/17/17; 0709; yes; 06/17/17 0709 by 12/22/20 0 010 by coccyx; Stage 2; LDA not Maria D Rose RN O Akua fragoso, RN present upon assessment; 12/22/20; 0010 PIV 06/17/17; 0734; 06/17/17 0734 by 06/24/17 1224 b y [id number] catheter Maria D Rose RN N Julián rangel RN system; 18 gauge, 1 in length; Laquita Rose RN; distraction, intradermal injection, tolerated well, appears comfortable; 0; 06/24/17; 1224 Incision 06/17/17; 0835; head; LDA 06/17/17 0835 by 12/25 1352 by not present upon Gloria Travis RN Romero, I ris M brassiere cup mold cutter; 12/25/20; 1352 documented in this encounter Social History Tobacco [...] encounter OR Notes Anesthesia Postprocedure Evaluation - Doroteo Bauer MD - 06/17/2017 11:53 AM EST [facility] Department of Anesthesiology Post-procedure Note Patient: Timbo Su Procedure Summary Date Anesthesia Start Anesthesia Stop Room / Location 06/17/17 0736 1152 [facility] 2 / [facility] Procedure Diagnosis Surgeon Responsible Provider @IMPLANTATION OF NEUROSTIMULATOR ELECTRODE-LISBETH (WRVU 33.03) (Bilateral Head); @IMPLANTATION OF ADD'L NEUROSTIMULATOR ELECTRODE (WRVU 7.91) (N/A Head); MODIFIER MOVEMENT DISORDER (N/A ); MODIFIER DBS (N/A ) (PARKINSON'S) Sekou, Randall P, MD Burchman, Doroteo A, MD All Anesthesia Providers: Anesthesiologist: Doroteo Bauer MD SENIOR GROUP MANAGER: Manny Hua CRNA Most Recent Vitals: 06/17/17 1150 BP: 142/82 Pulse: 73 Resp: 14 Temp: 36.5 ??C (97.7 ??F) SpO2: 97% Pain Patient Location: ICU Level of Consciousness: Conscious but Sleepy Pain Management: Pain Being Addressed PONV: None Cardiovascular Status: At Baseline Respiratory Status: At Baseline Postoperative Fluid Status: Intravascular EUvolemia Possible Anesthetic Complications: NONE apparent at time of evaluation Final Primary Anesthesia Type: General (The anesthetic type performed was the same as planned.) Comments: DOROTEO BAUER MD Anesthesia Preprocedure Evaluation - Doroteo Bauer MD - 06/17/2017 7:04 AM EST Pre-Anesthesia Evaluation for: Timbo Su a 61 y.o. male. Procedure(s): @IMPLANTATION OF NEUROSTIMULATOR ELECTRODE-LISBETH (WRVU 33.03) @IMPLANTATION OF ADD'L NEUROSTIMULATOR ELECTRODE (WRVU 7.91) MODIFIER MOVEMENT DISORDER MODIFIER DBS Patient Active Problem List Diagnosis ??? Mixed anxiety and depressive disorder ??? [...] 4) performed by Randall Sapp MD at [facility] Social History Substance Use Topics ??? Smoking status: Former Smoker Types: Cigarettes Quit date: 12/10/1977 ??? Smokeless tobacco: Never Used ??? Alcohol use No History Drug Use No Allergies Allergen Reactions ??? Comtan [Entacapone] Nausea Only Shaking, muscle weakness. Medications: MAR and/or home medications have been reviewed. Physical Exam: Most Recent Vitals: 06/17/17 0640 BP: 176/80 Pulse: 61 Resp: 16 Temp: 36.6 ??C (97.9 ??F) SpO2: 99% Body mass index is 29.69 kg/(m^2). Height: 185.4 cm (6' 1) Weight - Scale: (!) 102.1 kg (225 lb) Airway Assessment: Mallampati: II TM distance: >3 FB Neck ROM: full Cardiovascular Assessment: cardiovascular exam normal Pulmonary Assessment: pulmonary exam normal Dental Assessment: - normal exam Misc Assessment: Anesthesia Plan: ASA 2 general and General, with a(n) intravenous induction 61 y.o. male for implantation DBS with a PMH of longstanding Parkinson's disease, depression, anxiety, DM The patient has been followed neurology department for almost 20 years now. Plan: - MAC - standard ASA monitors and adequate IV access - Code Status: Full Code The risks and benefits of our anesthesic plan and viable alternatives were discussed with the patient including the risks of hypotension, arrhythmia, [place], stroke and the extremely rare risk of or awareness under anesthesia. All of the patient's questions were answered. Region - Intracranial (non-vascular) Informed Consent: Anesthetic plan and risks discussed with patient. Plan discussed with SENIOR GROUP MANAGER. PAT Staff Note documented in this encounter Plan of Treatment Upcoming Encounters Date Type Specialty Care Team Description 03/20/2022 Office Visit Neurology Vishnu Hooper MD [facility] NEUROLOGY DEPT. [place], [place] [address] (Wo rk) documented as of this encounter Visit Diagnoses Not on filedocumented in this encounter Administered Medications Inactive Administered Medications - up to 3 most recent administrations Medication Order MAR Action Action Date Dose Rate Site cefTRIAXone (ROCEPHIN) 2g in Given 06/17/2017 7:55 AM EST 2 g dextrose 5% 50mL 2 g, Intravenous, ONCE, 1 dose, On Sat06/17/17 at 0730, Administer over 30 Minutes, In OR, Indication for (Active or Suspected): Prophylaxis dexmedetomidine (PRECEDEX) injection Given 06/17/2017 9:04 AM EST 8 mcg PRN, Starting on Sat06/17/17 at 0902, Until Sat06/17/17 at 1152, Anesthesia Intra-op, Routine Given 06/17/2017 9:02 AM EST 8 mcg Given 06/17/2017 9:00 AM EST 8 mcg dexmedetomidine (PRECEDEX) IV New Bag 06/17/2017 10:10 0.4 mcg/kg/ hr 10.2 mL/hr infusion (anesthesia) AM EST CONTINUOUS PRN, Starting on Sat06/17/17 at 1010, Until Sat06/17/17 at 1152, Anesthesia Intra-op, Routine fentaNYL 50 mcg/mL multi-dose injection Given 06/17/2017 9:27 AM EST 25 mcg PRN, Starting on Sat06/17/17 at 0804, Until Sat06/17/17 at 1152, Pain, Anesthesia Intra-op, Routine Given 06/17/2017 9:01 AM EST 25 mcg Given 06/17/2017 8:56 AM EST 25 mcg lidocaine (PF) (XYLOCAINE) 100 mg/5 mL (2 %) Given 7 7:54 AM EST 40 mg injection PRN, Starting on Sat06/17/17 at 0754, Until Sat06/17/17 at 1152, Anesthesia Intra-op, Routine midazolam (PF) (VERSED) 1 mg/mL multi-dose Given 06/17/2017 8:24 AM EST 1 mg injection PRN, Starting on Sat06/17/17 at 0740, Until Sat06/17/17 at 1152, Sleep, Anesthesia Intra-op, Routine Given 06/17/2017 8:13 AM EST 1 mg Given 06/17/2017 8:01 AM EST 1 mg propofol (DIPRIVAN) Rate/Dose Change 06/17/2017 10:50 80 mcg/kg/min 4 9 mL/hr infusion AM EST CONTINUOUS PRN, Starting on Sat06/17/17 at 0755, Until Sat06/17/17 at 1152, Anesthesia Intra-op, Routine Restarted 06/17/2017 10:44 AM EST 60 mcg/kg/min 36.8 mL/hr Rate/Dose Change 06/17/2017 9:04 AM EST 60 mcg/kg/min 36.8 mL/hr vancomycin 1.5 g in sodium chloride 0.9% 250 Given 7 7:40 AM EST 1.5 g mL 1.5 g, Intravenous, ONCE, 1 dose, On 06/17/17 at 0730, Administer over 90 Minutes, Maximum infusion rate is 1 gram/hour. If flushing of the face, neck, upper body, arms, and/or back occurs decrease infusion rate by 50% to reduce the severity of symptoms. This medication may have an associated drug lab level. Please see MAR for scheduled level. Warning Vesicant/Irritant Medication , Indication for (Active or Suspected): Prophylaxis documented in this encounter Care Teams Clinical Data Management Director Relationship Specialty Start Date End Date Griselda Stanley MD PCP - General 07/04/10 02/03/22 documented as of this encounter
--- OUTSIDE RECORDS SUMMARY | 2022-02-26 04:01 | XMS_ITS | Encounter Summary ---
:1955 Author Organization [facility] [place] [address] Care Team Providers Name Role Phone Griselda Stanley MD Primary Care Provider Encounter Details Date Type Department Care Team Description 04/09/2018 Hospital [place] [address] Social History Tobacco Use Types Packs/Day [...] needed. 1 Release(E.C.) capsule three times weekly citalopram (CELEXA) 40 mg Take 1 tablet [...] 03/20/2022 Office Visit Neurology Vishnu Hooper MD [facility] NEUROLOGY DEPT. [place], [place] [address] (Wo rk) documented as of this encounter Procedures Procedure Name Priority Date/Time Associated Diagnosis Comme nts SURGICAL PATHOLOGY Routine 04/09/2018 3:00 PM Res ults for this REPORT EDT procedure are i n the results section. documented in this encounter Results Surgical Pathology Report (04/09/2018 3:00 PM EDT) Component Value Ref Test Analysis Performed At [facility] gist Range Method Time Signature Surgical [id number] ? Location: [facility] The signing pathologist has (i) examined the relevant preparation(s) for the [facility] specimen(s) and (ii) rendered or confirmed the diagnosis(es) . HOSPITAL LABORATORY . ?Surgic al Pathology DIAGNOSIS A - Antrum, ??biopsy: Gastric antral mucosa with r eactive gastropathy, no H. pylori-like organism seen on H &E stain B - Body of stomach, ?? biopsy: Gastric fundic gland mucosa with nonspecific parietal cell alterations of the type seen in patients on PPI the rapy, no H. pylori-like organism seen on H ?&E stain C - Distal esophagus, ?? biopsy: Squamous esophageal mucosa with changes suggestive of reflux D - Proximal esophagus, ?? biopsy: Esophageal squamous mucosa within normal limits Electronically signed by: ??Chao Moore MD, I Verified: ??04/11/2018 ?Pathologist Performed at: ??-[facility] Dept. of Pathology, [place], [place] CLINICAL INFORMATION Specimen Submitted: A - Antrum bx B - Body of stomach bx C - Distal esophagus bx D - Proximal esophagus bx Clinical History and Diagnosis: Epigastric pain, on (illegible) Report to: Griselda Stanley Referring Identifier: ?(not provided) SPECIMEN PROCESSING A - Labeled/Fixative: Antral biopsy, formalin. Quantity/Size: Two, 0.3 cm. Tissue Description: Soft, agarwal-pink tissue. Sections/Processing: (T1) B - Labeled/Fixative: Body of stomach biopsy, formalin. Quantity/Size: Two, 0.2 cm. Tissue Description: Soft, agarwal-pink tissue. Sections/Processing: (T1) C - Labeled/Fixative: Distal esophagus biopsy, formalin. Quantity/Size: Two, 0.2 and 0.3 cm. Tissue Description: Soft, agarwal-pink tissue. Sections/Processing: (T1) D - Labeled/Fixative: Proximal esophagus, formalin. Quantity/Size: Two, 0.2 cm. Tissue Description: Soft, agarwal-pink tissue. Sections/Processing: (T1) ??pps Specimen (Source) Anatomical Collection Method Collection Time Re ceived Time Location / / Volume Laterality 04/09/2018 3:00 PM EDT Bennett Trinidad DO PATHOLOGY/CYTOLOGY ORDERABL ES Performing Organization Address City/State/Z[place] [address] documented in this encounter Visit Diagnoses Not on filedocumented in this encounter Care Teams Youth Counselor Relationship Specialty Start Date End Date Griselda Stanley MD PCP - General 07/04/10 02/03/22 documented as of this encounter
--- OUTSIDE RECORDS SUMMARY | 2022-02-26 04:01 | XMS_ITS | Encounter Summary ---
:1955 Author Organization [facility] [place] [address] Care Team Providers Name Role Phone Griselda Stanley MD Primary Care Provider Encounter Details Date Type Department Care Team Description 01/28/2018 Office Visit Neurology [place] [facility] [place]ishnu Hooper MD Parkinson's disease [facility] [place] [address] NEUROLOGY DEPT. [phone] [place], [place] [address] (Wo rk) Social History Tobacco [...] Sign Reading Time Taken Comments Blood Pressure 155/76 01/28/2018 1:46 PM EDT Pulse 58 01/28/2018 1:46 PM EDT Temperature - - Respiratory Rate - - Oxygen Saturation - - Inhaled Oxygen Concentration - - Weight 102.1 kg (225 lb) 01/28/2018 1:46 PM EDT Height 185.4 cm (6' 1) 01/28/2018 1:46 PM EDT reported Body Mass Index 29.69 01/28/2018 1:46 PM EDT documented in this encounter Patient Instructions Patient InstructionsVishnu Hooper MD - 01/28/2018 1:45 PM EDT 1. Questions for Medtronic Hot tub recs Length of the wire is bothersome 2. Tapreing off the buspirone. Week 1, take 1 x 7.5 mg 3 x daily. Week 2, take 1 2 xdaily Week 3, take once daily. Week 4: off. documented in this encounter Progress Notes Vishnu Hooper MD - 01/28/2018 1:45 PM EDT [facility] Neurology [facility] Follow-up Note Patient ID: Timbo Su is a 62 y.o. year old male who presents in follow-up in the setting of the following problem list: Patient Active Problem List Diagnosis Code ??? [...] ??? S/P deep brain stimulator placement Z96.89 Subjective Patient Active Problem List Diagnosis ??? S/P deep brain stimulator placement [...] Ankle fracture, left ??? Fatigue Interval history: Occasional tremor no trouble with balance. He fell the other weekend because he tripped over a piece of wire. Mood is good. Ana Lilia has some question about medications for anxiety. Current Outpatient Prescriptions Medication Sig Dispense Refill ??? acetaminophen (TYLENOL) 500 mg Tablet Take 1,000 mg by mouth every 6 hours as needed for Pain. ??? citalopram (CELEXA) 40 mg Tablet Take 1 tablet by mouth daily. 30 tablet 1 ??? busPIRone (BUSPAR) 7.5 mg Tablet Take 1 tablet by mouth 3 times daily. (Patient taking differently: Take 7.5 mg by mouth 4 times daily.) 90 tablet 5 ??? cholecalciferol, Vitamin D3, 1,000 unit Tablet Take 1,000 Units by mouth daily. ??? benztropine (COGENTIN) 1 mg Tablet Take 1 mg by mouth daily. ??? melatonin 3 mg Tablet Take 6 mg by mouth nightly as needed. ??? omeprazole (PRILOSEC) 40 mg Capsule, Delayed Release(E.C.) Take 40 mg by mouth daily. ??? lisinopril (PRINIVIL;ZESTRIL) 40 mg Tablet Take 1 tablet by mouth daily. ??? simvastatin (ZOCOR) 20 mg tablet Take 20 mg by mouth nightly. ??? carbidopa-levodopa (SINEMET) 25-250 mg per tablet Take 1 tablet by mouth 4 times daily. ??? metFORMIN (GLUCOPHAGE) 500 mg tablet Take 250 mg by mouth 2 times daily (with meals). ??? metoprolol (LOPRESSOR) 100 mg tablet Take 100 mg by mouth 2 times daily. No current facility-administered medications for this visit. Issue with pain from the wire. When turning to the left When driving, seatbelt. Bother s elftight. Review of Systems: [ ] Review of Systems otherwise negative. Adverse reactions/allergies: Allergies Allergen Reactions ??? Comtan [Entacapone] Nausea Only Shaking, muscle weakness. Medications at start of encounter: Outpatient Medications Prior to Visit Medication Sig Dispense Refill ??? acetaminophen (TYLENOL) 500 mg Tablet Take 1,000 mg by mouth every 6 hours as needed for Pain. ??? citalopram (CELEXA) 40 mg Tablet Take 1 tablet by mouth daily. 30 tablet 1 ??? busPIRone (BUSPAR) 7.5 mg Tablet Take 1 tablet by mouth 3 times daily. (Patient taking differently: Take 7.5 mg by mouth 4 times daily.) 90 tablet 5 ??? cholecalciferol, Vitamin D3, 1,000 unit Tablet Take 1,000 Units by mouth daily. ??? benztropine (COGENTIN) 1 mg Tablet Take 1 mg by mouth daily. ??? melatonin 3 mg Tablet Take 6 mg by mouth nightly as needed. ??? omeprazole (PRILOSEC) 40 mg Capsule, Delayed Release(E.C.) Take 40 mg by mouth daily. ??? lisinopril (PRINIVIL;ZESTRIL) 40 mg Tablet Take 1 tablet by mouth daily. ??? simvastatin (ZOCOR) 20 mg tablet Take 20 mg by mouth nightly. ??? carbidopa-levodopa (SINEMET) 25-250 mg per tablet Take 1 tablet by mouth 4 times daily. ??? metFORMIN (GLUCOPHAGE) 500 mg tablet Take 250 mg by mouth 2 times daily (with meals). ??? metoprolol (LOPRESSOR) 100 mg tablet Take 100 mg by mouth 2 times daily. No facility-administered medications prior to visit. Family and Social History: Interval changes: No family history on file. No family status information on file. Social History Social History ??? Marital status: Spouse name: N/A ??? Number of children: N/A ??? Years of education: N/A Social History Main Topics ??? Smoking status: Former Smoker Types: Cigarettes Quit date: 12/10/1977 ??? Smokeless tobacco: Never Used ??? Alcohol use No ??? Drug use: No ??? Sexual activity: Not Asked Comment: Deferred Other Topics Concern ??? None Social History Narrative Objective: Vitals: 01/28/18 1346 BP: 155/76 BP Location ([facility]): Left arm Patient Position: Sitting BP Cuff Sizes: Adult (25-34 cm) Pulse: 58 Weight: 102.1 kg (225 lb) Height: 185.4 cm (6' 1) General examination: Shows a very pleasant man who is well nourished and in no distress. Neurological examination: ?? Mental status: He does have difficulty with short-term recall. Speech is slightly hypophonic. There is slight loss of prosody. There is decreased blink rate. ?? Cranial nerves: Facial expression is slightly diminished but otherwise intact cranial nerves to detailed testing. ?? Motor examination reveals right greater than left rigidity and bradykinesia. No rest tremor is noted. ?? Sensory examination: Extremity examination shows moderate hair loss distally to proximally, suggestive of a peripheral neuropathy. Vibratory sensation however was surprisingly preserved. He did havesome decreased pinprick sensation from a distal to proximal gradient. ?? Deep tendon reflexes were also 2+ at the patellar and 2+ at the ankles, and 1+ at the biceps and triceps. ?? Coordination is intact to zehuxq-bhgf-cpjadu nose except for very slight left-handed action tremor which did not increase upon reaching the target (was not an intention tremor) [id number]-[id number] was intact bilaterally. ?? Gait examination shows that he is able to ambulate but had decreased bilateral arm swing. He was unable to tandem, nearly falling when standing on the right, but was stable with a slightly wider base gait. Postural reflexes were impaired, with tendency to fall backwards if not caught by the examiner. Romberg is notable for significant swaying but he did not fall. 01/28/2018 TIMBO SU (Activa PC) Second Title line Third Title line Fourth Title line Medtronic Neuromodulation Activa PC Model [id number] Patient TIMBO SU Diagnosis Parkinson's Disease Session date 01/28/2018 Manhole Stripper 8840 [id number] Session Summary Report Profile Physician information: Notes: Lead configuration 2x4 Leads: Model Left GPi 3387 Right GPi 3387 Neurostimulator date: 01/28/2018 Neurostimulator time: 14:03:33 Implantation date: 06/24/2017 Session Start End -------- -------- Session (24 hr) 15:08 15:12 Duration (hrs) 0.05 Neurostimulator ON ON Available groups 3 3 Active group A A (* indicates changes) Observations Check device clock Report continued > - - - - - - - - - - - - - - - - - - - - Session Summary Report Continued Device Usage Last session: 11/05/2017 Use (%): 99 Use (hours): 2,014 Lifetime hours used: 4,811 Most used groups: A 97% B 0% C 3% Neurostimulator Status: OK Electrode Impedance Hemisphere Left Amplitude: 1.50 No electrodes yii-ui-vdnuq (Unipolar Range: 250 - 2000 Ohms) (Bipolar Range: 250 - 4000 Ohms) Hemisphere Right Amplitude: 1.50 Some electrodes thv-ia-wyizj (Unipolar Range: 250 - 2000 Ohms) (Bipolar Range: 250 - 4000 Ohms) C & 8 2522 8 & 11 7445 C & 11 2913 9 & 11 4585 8 & 9 4121 10 & 11 4063 Baseline Information No Data Available Page 1 Of 3 - - - - - - - - - - - - - - - - - - - - Medtronic Neuromodulation Activa PC Model 04399 [id number] TIMBO YESSY 01/28/2018 Measurements Report Neurostimulator Status Service life: OK Battery: 2.94V Electrode Impedance Lead configuration 2x4 Leads: Model Left GPi 3387 Right GPi 3387 Results (Ohms) Hemisphere Left Amplitude: 1.50 C & 0 1804 0 & 2 3656 C & 1 1054 0 & 3 3931 C & 2 1645 1 & 2 2296 C & 3 1675 1 & 3 2594 0 & 1 2143 2 & 3 2986 Hemisphere Right Amplitude: 1.50 C & 8 2522 8 & 10 3655 C & 9 1517 8 & 11 7445 C & 10 1203 9 & 10 2236 C & 11 2913 9 & 11 4585 8 & 9 4121 10 & 11 4063 Group Impedance No Data Available Report continued > - - - - - - - - - - - - - - - - - - - - Groups Report Group A Rate range (Hz): 150-150-150 Cycling On/Off (?/?) Off SoftStart/Stop (s) 8 A: Left GPi C + 0 Amp PW 1- (V) (??s) 2 ----- ----- 3 Upper 4.5 90 Programmed 3.4 90 Lower 2.5 90 Resolution 0.1 Na A: Right GPi C 8 Amp PW 9- (V) (??s) 10+ ----- ----- 11 Upper 4.8 90 Programmed 4.8 90 Lower 2.8 90 Resolution 0.1 Na Group B Rate range (Hz): 150-150-150 Cycling On/Off (?/?) Off SoftStart/Stop (s) 8 Page 2 Of 3 - - - - - - - - - - - - - - - - - - - - Medtronic Neuromodulation Activa PC Model 87801 [id number] TIMBO YESSY 01/28/2018 Groups Report Continued B: Left GPi C + 0 Amp PW 1- (V) (??s) 2 ----- ----- 3 Upper 4.5 90 Programmed 3.8 90 Lower 2.5 90 Resolution 0.1 Na B: Right GPi C + 8- Amp PW 9 (V) (??s) 10 ----- ----- 11 Upper 3.5 90 Programmed 1.3 90 Lower 0.0 90 Resolution 0.1 Na Group C Rate range (Hz): 150-150-150 Cycling On/Off (?/?) Off SoftStart/Stop (s) 8 Report continued > - - - - - - - - - - - - - - - - - - - - Groups Report Continued C: Left GPi C + 0 Amp PW 1- (V) (??s) 2 ----- ----- 3 Upper 4.5 90 Programmed 4.2 90 Lower 2.5 90 Resolution 0.1 Na C: Right GPi C + 8 Amp PW 9- (V) (??s) 10 ----- ----- 11 Upper 3.5 90 Programmed 1.2 90 Lower 0.0 90 Resolution 0.1 Na End of Report Page 3 Of 3 - - - - - - - - - - - - - - - - - - - - Assessment and Plan: Parkinson's disease The patient is a 62-year-old male who is now status post GPI DBS with excellent response. He has some wearing end of the electrode leads, and he was encouraged to continue working his range of motion. This will eventually improve. As far as his other symptoms are concerned, they seem to be under better control after the deep brain stimulation, we will continue medications for now. This was a 25 minute visit, during which greater than 15 minutes were spent in discussion regarding the above assessmentand plan. Patient instructions Patient Instructions 1. Questions for Medtronic Hot tub recs Length of the wire is bothersome 2. Tapreing off the buspirone. Week 1, take 1 x 7.5 mg 3 x daily. Week 2, take 1 2 xdaily Week 3, take once daily. Week 4: off. Vishnu Hooper MD PhD [facility] Neurology documented in this encounter Miscellaneous Notes Assessment & Plan Note - Vishnu Hooper MD - 02/11/2018 5:48 AM EDTAssociated Problem(s): Parkinson's disease (Resolved 08/23/2020) The patient is a 62-year-old male who is now status post GPI DBS with excellent response. He has some wearing end of the electrode leads, and he was encouraged to continue working his range of motion. This will eventually improve. As far as his other symptoms are concerned, they seem to be under better control after the deep brain stimulation, we will continue medications for now. This was a 25 minute visit, during which greater than 15 minutes were spent in discussion regarding the above assessmentand plan. documented in this encounter Plan of Treatment Upcoming Encounters Date Type Specialty Care Team Description 03/20/2022 Office Visit Neurology Vishnu Hooper MD [facility] DR NEUROLOGY DEPT. [place], [place] [address] (Wo rk) documented as of this encounter Visit Diagnoses Diagnosis Parkinson's disease Paralysis agitans documented in this encounter Care Teams Anatomic Pathology Manager Relationship Specialty Start Date End Date Griselda Stanley MD PCP - General 07/04/10 02/03/22 documented as of this encounter
--- OUTSIDE RECORDS SUMMARY | 2022-02-26 04:01 | XMS_ITS | Encounter Summary ---
:1955 Author Organization [facility] [place] [address] Care Team Providers Name Role Phone Griselda Stanley MD Primary Care Provider Reason for Visit Reason Comments Medication Refill Encounter Details Date Type Department Care Team Description 05/24/2019 [place]ill [place] [facility] [place]nu [place] [facility] [place] [address] NEUROLOGY DEPT. [phone] [place], [place] [address] (Wo rk) Social History Tobacco [...] 03/20/2022 Office Visit Neurology Vishnu Hooper MD [facility] NEUROLOGY DEPT. [place], [place] [address] (Wo rk) documented as of this encounter Visit Diagnoses Not on filedocumented in this encounter Care Teams Cooperative Extension Agent Relationship Specialty Start Date End Date Griselda Stanley MD PCP - General 07/04/10 02/03/22 documented as of this encounter
--- OUTSIDE RECORDS SUMMARY | 2022-02-26 04:01 | XMS_ITS | Encounter Summary ---
:1955 Author Organization [facility] Address [facility] [place] [address] Care Team Providers Name Role Phone Griselda Stanley MD Primary Care Provider Encounter Details Date Type Department Care Team Description 12/10/2019 Refill [place]rology [place] [facility] [place]ishnu Hooper MD Fatigue, unspecified [facility] [place] [address] NEUROLOGY DEPT. [phone] [place], [place] [address] (Wo rk) Social History Tobacco [...] documented as of this encounter Miscellaneous Notes Addendum Note - Lopez Monreal RN - 12/11/2019 1:48 PM EDT Addended by: LOPEZ MONREAL on: 12/11/2019 01:48 PM Modules accepted: Orders Telephone Encounter - Lopez Monreal RN - 12/11/2019 1:[address] Hooper, will have pt start Methylphendidate for fatigue. Call placed to PCP office, he has appt Saturday given acute change and they will get baseline EKG Telephone Encounter - Vishnu Hooper MD - 12/11/2019 6:02 AM EDT Hi, Yes, let???s start methylphenidate for his fatigue. Misha Telephone Encounter - Lopez Monreal RN - 12/10/2019 4:50 PM EDT Call returned to , pt has had longstanding fatigue but she notes that in last few weeks the fatigue has worsened. Pt had similar fatigue back in in summer and Buspar was stopped which resolved symptoms. Pt did start Mirabegron about a month ago. reports that pt is also sitting in chair with eyes open but not really seeing anything, he willdo things with his hands such as tying knots or looking for change. says symptoms are worseneinvhy instructed that pt should have appt with PCP office to r/o UTI or other acute illness , will also for forward additional information to Dr Hooper Telephone Encounter - Margareth Corado - 12/10/2019 2:31 PM EDT Call Center / Food And Beverage Director Message - General Issue Call Provider patient sees in Clinic:Rufus Caller and relationship (if other than patient-full name): Gwen Spouse Call back number: [phone] Ok to leave a message: Yes Reason for call: Would like to talk to someone about his spells Disposition of Call (choose one and remove others): ??? Routine Message sent to the Nurse: documented in this encounter Plan of Treatment Upcoming Encounters Date Type Specialty Care Team Description 03/20/2022 Office Visit Neurology Vishnu Hooper MD [facility] NEUROLOGY DEPT. [place], [place] [address] (Wo rk) documented as of this encounter Visit Diagnoses Diagnosis Fatigue, unspecified type documented in this encounter Care Teams Hearing Therapist Relationship Specialty Start Date End Date Griselda Stanley MD PCP - General 07/04/10 02/03/22 documented as of this encounter
--- OUTSIDE RECORDS SUMMARY | 2022-02-26 04:01 | XMS_ITS | Encounter Summary ---
:1955 Author Organization [facility] [place] [address] Care Team Providers Name Role Phone Griselda Stanley MD Primary Care Provider Encounter Details Date Type Department Care Team Description 07/08/2017 Office Visit Neuro[place] [facility] [place] Geeta Rees S/Quintin deep brain [facility] L, [place] [address] Social History Tobacco Use Types Packs/Day [...] place to sleep or slept in a halfway (including now)? Sex Assigned at Date Recorded Not on file documented as of this encounter Progress Notes Geeta Rees RN - 07/08/2017 10:00 AM EST Samuel is a 61 year [...] in NAD. His speech is clear but his reports it sounds a little hoarse to her today. He SHAW well with bradykinesia and rigidity, lower extremities > upper extremities and LUE > RUE. . His ambulation is steady with a cane. Samuel has bilateral intermittent hand tremor. Samuel fell on 06/26/17 and has been anxious about doing damage to the DBS even though I spoke with Bela and assured her he did no harm. I did an impedence check and reassured Samuel no damage was done. Samuel is feeling very anxious in general and has since the surgeries. We discussed increasing the Buspirone 7.5 mg to four x daily from the current three x daily for a short time. Samuel was anxious about how far out the IPG sticks out in his chest and thought it was infected. He has mild edema over the IPG but otherwise the site has healed well without s/s of infection. He has no fever, chills, erythema, or pain. I let him know it protrudes more now that the swelling around it has gone down and that it wasn't placed deep in his muscle. I turned the DBS on and started testing the electrodes and Samuel started c/o multiple complaints ie: pressure in his cheek, shoulders, chest, dizzy, numbness in his feet, etc even with the stimulation off. I explained that it was going to be very difficult to program with his level of anxiety today and that I felt we should just set it using a low amplitude and he could increase it using the patient scientific programmer analyst over the next few weeks as he felt comfortable. I showed Samuel and Bela how to use the patient scientific programmer analyst and they could demonstrate it without difficulty. They may increase the amplitude by 1.0 volt. At the end of our session, Samuel was more relaxed and admitted to feeling less anxious. LEFT? Electrodes ?? Amplitude ?? Width ?? Rate ?? Original settings ? Final settings ?? Case + 1 -?? 1.0 90 ?? 150 ? RIGHT? Electrodes ?? Amplitude ?? Width ?? Rate ?? Original settings ? Final settings ?? 9 - ??10 + 1.0 90 ?? 150 ?? I will see Samuel on 07/25/17. He knows to call with questions or concerns. A total of 60 minutes was spent in assessment, DBS programming, education, and evaluation. documented in this encounter Plan of Treatment Upcoming Encounters Date Type Specialty Care Team Description 03/20/2022 Office Visit Neurology Vishnu Hooper MD [facility] NEUROLOGY DEPT. [place], [place] [address] (Wo rk) documented as of this encounter Visit Diagnoses Diagnosis S/P deep brain stimulator placement documented in this encounter Care Teams Paper Coater Relationship Specialty Start Date End Date Griselda Stanley MD PCP - General 07/04/10 02/03/22 documented as of this encounter
--- OUTSIDE RECORDS SUMMARY | 2022-02-26 04:01 | XMS_ITS | Encounter Summary ---
:1955 Author Organization [facility] [place] [address] Care Team Providers Name Role Phone Griselda Stanley MD Primary Care Provider Reason for Visit Reason Onset Date Comments Other 01/29/2019 Encounter Details Date Type Department Care Team Description 01/29/2019 Telephone Neurology at [facility] [place]ishnu Hooper MD Other [facility] [place] [address] NEUROLOGY DEPT. [phone] [place], [place] [address] (Wo rk) Social History Tobacco [...] Telephone Encounter - Roxanna Monreal RN - 01/29/2019 6:30 PM EDT Call returned to , she feels he is doing better in general. He is more alert and clearer. He is more movtivated. In the past, when they stopped Cogentin, pt developed a tremor, he has not gotten a tremor this time. Around the same time pt's Cymbalta was reduced to 60mg am and 30mg pm. Pt in background says he feels more alert with the changes. Pt and are going to observe for another week and call with update. is concerned about pt's REM sleep disorder, says he moves around all the time in his sleep. He has vivid dreams and when he awakens thinks the dreams really happened. She would like to discuss treatment options in the future. Telephone Encounter - Jocelin Antonio - 01/29/2019 10:26 AM EDT Clinical [place] Message Caller: Gwen If not Pt / Relation to pt: Spouse Call back Number: [phone] Reason for call: Small improvement Message/information for the nurse: Pt's called stating that Dr. Hooper had the pt stop taking a medication and that there has been little improvement. She did not give any further information and is requesting to speak with a nurse. Disposition of Call ?? Routine Message sent to the Nurse documented in this encounter Plan of Treatment Upcoming Encounters Date Type Specialty Care Team Description 03/20/2022 Office Visit Neurology Vishnu Hooper MD [facility] NEUROLOGY DEPT. [place], [place] [address] (Wo rk) documented as of this encounter Visit Diagnoses Not on filedocumented in this encounter Care Teams Stripping And Booking Machine Operator Relationship Specialty Start Date End Date Griselda Stanley MD PCP - General 07/04/10 02/03/22 documented as of this encounter
--- OUTSIDE RECORDS SUMMARY | 2022-02-26 04:01 | XMS_ITS | Encounter Summary ---
:1955 Author Organization [facility] [place] [address] Care Team Providers Name Role Phone Griselda Stanley MD Primary Care Provider Reason for Visit Reason Comments Follow-up Encounter Details Date Type Department Care Team Description 07/25/2017 Office Visit Neurosurgery at [facility] Randall Sapp Parkinson's disease; [facility] MD Quintin S/P deep [place] [address] [place] [address] NEUROSURGERY [place] [address] Social History Tobacco Use Types Packs/Day Years [...] Sign Reading Time Taken Comments Blood Pressure 153/70 07/25/2017 9:25 AM EST Pulse 58 07/25/2017 9:25 AM EST Temperature - - Respiratory Rate - - Oxygen Saturation - - Inhaled Oxygen Concentration - - Weight 102.4 kg (225 lb 12 oz) 07/25/2017 9:25 AM EST Height 185.4 cm (6' 1) 07/25/2017 9:25 AM EST Body Mass Index 29.78 07/25/2017 9:25 AM EST documented in this encounter Progress Notes Randall Sapp MD - 07/25/2017 10:30 AM EST Neurosurgery Clinic Note Timbo Su is a 61 yo man with PD s/p bilateral GPi DBS placement on 06/17 ([facility] on 06/24), now presenting to clinic for routine post-op follow-up. He has undergone two programming sessions. Heand his are pleased with the results from surgery and describe improvements in walking, decreased tremor, improvements in getting up out of a chair, better dexterity when buttoning his shirt, and improvements in buckling the seatbelt of the car. He denies side effects such as tingling or other sensory change, but does describe a brief bubbly feeling in his LUE when increasing amplitude that quickly resolves. . His wounds are healing well. Overall, he is recovering very well from surgery with improvements in motor symptoms. He has very slight L>R UE tremor. We will plan to see him back in 1 year. He will continue to follow up with [facility] for programming. Randall Sapp MD documented in this encounter Plan of Treatment Upcoming Encounters Date Type Specialty Care Team Description 03/20/2022 Office Visit Neurology Vishnu Hooper MD [facility] NEUROLOGY DEPT. [place], [place] [address] (Wo rk) documented as of this encounter Visit Diagnoses Diagnosis Parkinson's disease Paralysis agitans S/P deep brain stimulator placement documented in this encounter Care Teams Chain Person Relationship Specialty Start Date End Date Griselda Stanley MD PCP - General 07/04/10 02/03/22 documented as of this encounter
--- OUTSIDE RECORDS SUMMARY | 2022-02-26 04:01 | XMS_ITS | Encounter Summary ---
:1955 [place] [address] Care Team Providers Name Role Phone Griselda Stanley MD Primary Care Provider Encounter Details Date Type Department Care Team Description 06/24/2017 Anesthesia Event Main Operating Room Antony Llamas MD [facility] [place] [address] [facility] Estela Stone [facility] [address] [facility] [place] [address] Anesthesia Record Procedure Summary Procedure Name Responsible Anesthesia Start Anesthesia Stop Anesthesiologist Time Time PLACEMENT ADD'L CRANIAL Antony Moise MD 06/24/17 0730 7 0928 NEUROSTIMULATOR (WRVU 9.93) (Bilateral Chest) Events Date Time Event Comment 06/24/2017 0730 AN Verify 0730 Start 0734 An Start Data 0744 An Induction 0748 An Intubation 0751 Anesthesia Ready 0821 Quick Note 10cc Local with epinephrine by surgeon 0822 Procedure Start 0915 Procedure Stop 0920 Extubation/LMA Out 0920 an stop data 0928 Recovery or ICU Handoff Patient care was transferred to the destination unit staff after review of the patient's medica l history, current anesthetic/surgi abelardo status and plan, according to the Provider Handoff Checklist. 0928 Stop 0932 Name Total Midazolam 1 mg fentaNYL 100 mcg IV Lidocaine 50 mg Propofol 250 mg Rocuronium 60 mg ePHEDrine 10 mg Ondansetron 8 mg Vancomycin 1.5 g cefTRIAXone (ROCEPHIN) 2g in dextrose 5% 50mL 2 g Dexmedetomidine INF 25.74 mcg Dexmedetomidine 20 mcg lactated Ringers infusion 1,000 mL 550 mL Agents Name O2 Air N2O Sevoflurane (et) Blood No blood administrations on file. Lines, Drains, and Airways Type Details Placement Removal Pressure Injury 06/17/17; 0709; yes; 06/17/17 0709 by 12/22/20 0 010 by coccyx; Stage 2; LDA not Maria D Rose RN O kojie, Cigal N RN present upon assessment; 12/22/20; 0010 PIV 06/17/17; 0734; 06/17/17 0734 by 06/24/17 1224 b y uhzu-vmg-faghho catheter Maria D Rose RN N ola, Matthew T, RN system; 18 gauge, 1 in length; Laquita Rose RN; distraction, intradermal injection, tolerated well, appears comfortable; 0; 06/24/17; 1224 Incision 06/17/17; 0835; head; LDA 06/17/17 0835 by 12/25 1352 by not present upon Gloria Travis RN Romero, Landon Leija RNassessment manager; 12/25/20; 1352 PIV 06/24/17; 0644; median 06/24/17 0644 by 06/24/17 1224 by cubital vein (antecubital Brown, Yolis Campbell, R Julián Caro RN fossa), right; vjyp-vwn-wfesgh catheter system; 20 gauge; Catia BHTAIA; distraction, intradermal injection, tolerated well; 1; Location1: (select this item first), metacarpal vein (top of hand), right; 06/24/17; 1224 ETT Mask Ventilation: Easy 06/24/17 0748 by Chase, 1 08/24/16 0920 by (1); ETT Type: Cuffed, Estela K, PROCESSING SPECIALIST Chase, Sa kiara K, PROCESSING SPECIALIST Oral; ETT Size: 7.5 mm; Mac Blade: 4; Notes: Asleep, Pre-O2, Cricoid Pressure, Stylette, Troop Elev.; Attempts: 1; Laryngoscopy Grade: 1; ETT Placement Verified By: Auscultation, Capnometry; Secured at Teeth: 23 cm; Inserted by: FLORI Stone Incision 06/24/17; 08; head 06/24/17 0822 by 12/25/20 1 353 by (Head, neck and chest); Gwen Figueredo Romero, Iris M, RN LDA not present upon assessment manager; 12/25/20; 1353 Incision 06/24/17; 0830; other (see 06/24/17 0830 by Lauren , 12/25/20 1353 by comments) (Left clavicular JANNETTE Camilo Iris M, RN area); transverse; LDA not present upon assessment; 12/25/20; 1353 documented in this encounter Social History Tobacco [...] encounter OR Notes Anesthesia Postprocedure Evaluation - Antony Moise MD - 06/24/2017 9:32 AM EST [facility] Department of Anesthesiology Post-procedure Note Patient: Timbo Su Procedure Summary Date Anesthesia Start Anesthesia Stop Room / Location 06/24/17 0730 0928 [facility] OR 24 / [facility] MAIN OR Procedure Diagnosis Surgeon Responsible Provider PLACEMENT ADD'L CRANIAL NEUROSTIMULATOR (WRVU 9.93) (Bilateral Chest); MODIFIER MOVEMENT DISORDER (N/A Head); MODIFIER DBS (N/A Head) (PARKINSON'S) Randall Sapp MD Toth, Adam R, MD All Anesthesia Providers: Anesthesiologist: Antony Moise MD PROCESSING SPECIALIST: Estela Stone CRNA Most Recent Vitals: 06/24/17 0635 BP: 158/89 Pulse: 61 Resp: 16 Temp: 36.9 ??C (98.4 ??F) SpO2: 97% Pain Patient Location: PACU/[facility] Level of Consciousness: Awake and Alert Pain Management: Satisfactory Analgesia PONV: None Cardiovascular Status: At Baseline and Hemodynamically Stable Respiratory Status: At Baseline and Room Air Postoperative Fluid Status: Intravascular EUvolemia Possible Anesthetic Complications: NONE apparent at time of evaluation Final Primary Anesthesia Type: General (The anesthetic type performed was the same as planned.) Comments: Antony Moise MD Anesthesia Preprocedure Evaluation - Antony Moise MD - 06/23/2017 8:47 PM EST Pre-Anesthesia Evaluation for: Timbo Su a 61 y.o. male. Procedure(s): PLACEMENT ADD'L CRANIAL NEUROSTIMULATOR (WRVU 9.93) MODIFIER MOVEMENT DISORDER MODIFIER DBS Patient Active [...] 4) performed by Randall Sapp MD at [facility] ??? PRO IMPLANT NEUROELECTRDE, ADDL N/A 06/17/2017 @IMPLANTATION OF ADD'L NEUROSTIMULATOR ELECTRODE (WRVU 7.91) performed by Randall Sapp MD at [facility] ??? PRO IMPLANT NEUROELECTRODE Bilateral 06/17/2017 @IMPLANTATION OF NEUROSTIMULATOR ELECTRODE-LISBETH (WRVU 33.03) performed by Randall Sapp MD at [facility] Social History Substance Use Topics ??? Smoking status: Former Smoker Types: Cigarettes Quit date: 12/10/1977 ??? Smokeless tobacco: Never Used ??? Alcohol use No History Drug Use No Allergies Allergen Reactions ??? Comtan [Entacapone] Nausea Only Shaking, muscle weakness. Medications: MAR and/or home medications have been reviewed. Physical Exam: There were no vitals filed for this visit. There is no height or weight on file to calculate BMI. Airway Assessment: Mallampati: I TM distance: >3 FB Neck ROM: full Cardiovascular Assessment: Pulmonary Assessment: Dental Assessment: Misc Assessment: IV access: Peripheral line Other exam findings: Dental bridge, already removed prior to my visit Anesthesia Plan: ASA 3 general, with a(n) intravenous induction 61yo male with longstanding hx of Parkinson's disease, s/p placement of DBS on 06/17 under MAC, now presenting for placement of implanted pulse generator. No issues with that last anesthetic. NPO appropriate Other medical hx: HTN (baseline BP 150s/70s), DM2 with polyneuropathy (AM blood sugar 114), anxiety/depression, sciatica, GERD on PPI (controlled). Did not take Parkinsons medications today due to pt and being unclear about this. I had him take his carbidopa/levodopa and benztropine prior to us heading back. Plan: GAETT Risks of anesthesia reviewed; consent signed Region - Other Informed Consent: Anesthetic plan and risks discussed with patient. Plan discussed with PROCESSING SPECIALIST. PAT Staff Note documented in this encounter Plan of Treatment Upcoming Encounters Date Type Specialty Care Team Description 03/20/2022 Office Visit Neurology Vishnu Hooper MD [facility] NEUROLOGY DEPT. [place], [place] [address] (Wo rk) documented as of this encounter Visit Diagnoses Not on filedocumented in this encounter Administered Medications Inactive Administered Medications - up to 3 most recent administrations Medication Order MAR Action Action Date Dose Rate Site cefTRIAXone (ROCEPHIN) 2g in Given 06/24/2017 7:54 AM EST 2 g dextrose 5% 50mL 2 g, Intravenous, EVERY 24 HOURS, First dose on Sat06/24/17 at 0745, Until Discontinued, Administer over 30 Minutes, Indication for (Active or Suspected): Prophylaxis dexmedetomidine (PRECEDEX) injection Given 06/24/2017 8:26 AM EST 12 mcg PRN, Starting on Sat06/24/17 at 0822, Until Sat06/24/17 at 0928, Anesthesia Intra-op, Routine Given 06/24/2017 8:24 AM EST 4 mcg Given 06/24/2017 8:22 AM EST 4 mcg dexmedetomidine (PRECEDEX) IV Rate/Dose 06/24/2017 8:36 0.2 mcg/kg/h r 5 mL/hr infusion (anesthesia) Change AM EST CONTINUOUS PRN, Starting on Sat06/24/17 at 0758, Until Sat06/24/17 at 0928, Anesthesia Intra-op, Routine Rate/Dose Change 06/24/2017 8:29 AM EST 0.4 mcg/kg/hr 10 mL/hr New Bag 06/24/2017 7:58 AM EST 0.2 mcg/kg/hr 5 mL/hr ePHEDrine 5 mg/mL multi-dose injection Given 06/24/2017 9:00 AM EST 5 mg PRN, Starting on Sat06/24/17 at 0755, Until Sat06/24/17 at 0928, Anesthesia Intra-op, Routine Given 06/24/2017 7:55 AM EST 5 mg fentaNYL 50 mcg/mL multi-dose injection Given 06/24/2017 8:27 AM EST 50 mcg PRN, Starting on Sat06/24/17 at 0744, Until Sat06/24/17 at 0928, Pain, Anesthesia Intra-op, Routine Given 06/24/2017 8:20 AM EST 25 mcg Given 06/24/2017 7:34 AM EST 25 mcg lidocaine (PF) (XYLOCAINE) 100 mg/5 mL (2 %) Given 7 7:44 AM EST 50 mg injection PRN, Starting on Sat06/24/17 at 0744, Until Sat06/24/17 at 0928, Anesthesia Intra-op, Routine midazolam (PF) (VERSED) 1 mg/mL multi-dose Given 06/24/2017 7:30 AM EST 1 mg injection PRN, Starting on Sat06/24/17 at 0730, Until Sat06/24/17 at 0928, Sleep, Anesthesia Intra-op, Routine ondansetron (ZOFRAN) injection Given 06/24/2017 9:05 AM EST 8 mg PRN, Starting on Sat06/24/17 at 0905, Until Sat06/24/17 at 0928, Nausea, Anesthesia Intra-op, Routine propofol (DIPRIVAN) 10 mg/mL bolus injection Given 7 8:26 AM EST 50 mg (Anesthesia) PRN, Starting on Sat06/24/17 at 0744, Until Sat06/24/17 at 0928, Anesthesia Intra-op Given 06/24/2017 7:48 AM EST 30 mg Given 06/24/2017 7:46 AM EST 30 mg rocuronium (ZEMURON) multi-dose injectio n Given 06/24/2017 8:06 AM EST 10 mg PRN, Starting on Sat06/24/17 at 0745, Until Sat06/24/17 at 0928, Anesthesia Intra-op, Routine Given 06/24/2017 7:45 AM EST 50 mg vancomycin (VANCOCIN) injection Given 06/24/2017 7:30 AM EST 1.5 g PRN, Starting on Sat06/24/17 at 0744, Until Sat06/24/17 at 0928, Anesthesia Intra-op, Routine documented in this encounter Care Teams Polishing Wheel Setter Relationship Specialty Start Date End Date Griselda Stanley MD PCP - General 07/04/10 02/03/22 documented as of this encounter
--- OUTSIDE RECORDS SUMMARY | 2022-02-26 04:01 | XMS_ITS | Encounter Summary ---
:1955 Author Organization [facility] [place] [address] Care Team Providers Name Role Phone Griselda Stanley MD Primary Care Provider Reason for Referral Consultation (Routine) - Specialty Diagnoses / Procedures Referred By Contact Refer red To Contact Urology Diagnoses Abnormal urinary stream Vishnu Hooper MD [facility] [place] [address] Referral ID Status Reason Start Date Expiration Date Visits V isits Requested Authorized [id number] Consult, 11/18/2018 05/17/2019 1 1 Test & Treat Encounter Details Date Type Department Care Team Description 11/18/2018 Office Visit Neurology [place] [facility] Vishnu Hooper MD Abnormal urinary stream; [facility] [address] [place] NEUROLOGY [place]PT. [address] [place] [address] [phone] Social History Tobacco Use Types Packs/Day Years [...] to sleep or slept in a senior care (including now)? Sex Assigned at Date Recorded Not on file documented as of this encounter Last Filed Vital Signs Vital Sign Reading Time Taken Comments Blood Pressure 137/73 11/18/2018 3:06 PM EDT Pulse 67 11/18/2018 3:06 PM EDT Temperature - - Respiratory Rate - - Oxygen Saturation - - Inhaled Oxygen Concentration - - Weight 96.2 kg (212 lb) 11/18/2018 3:06 PM EDT Height 185.4 cm (6' 1) 11/18/2018 3:06 PM EDT Body Mass Index 27.97 11/18/2018 3:06 PM EDT documented in this encounter Patient Instructions Patient InstructionsVishnu Hooper MD - 11/18/2018 3:15 PM EDT You're doing better on the higher dose of duloxetine but let's explore 120 mg per day. For Parkinson's, you still have a lot of stffness and I would liek to see if you respond to the entacapone (previously did not in a Different situation). Finally, referral to urology for abnormal stream. Continue exercise (Waking, balance exercise). Try some hobbies as soon as the weather cooperates. documented in this encounter Progress Notes Vishnu Hooper MD - 11/18/2018 3:15 PM EDT [facility] Neurology Clinic Follow-up Note Patient ID: Timbo Su is a 63 y.o. year old male who presents in [...] Ankle fracture, left ??? Fatigue Interval history: Definitely better in terms of anxiety and depression, but the question is what is the endpoint. He likes to work on cars, he likes to fish. Still have a boat. He likes to do his own projects in the house instead of having someone else fix the house. He has had a chronic neuropathy problem. Right after we increased the depression medicaiton, the blood glucose went really high. He had to increase the metformin. Review of Systems: [ ] Review of Systems otherwise negative. Adverse reactions/allergies: Allergies Allergen Reactions ??? Comtan [Entacapone] Nausea Only Shaking, muscle weakness. Medications at start of encounter: Outpatient Medications Prior to Visit Medication Sig Dispense Refill ??? DULoxetine (CYMBALTA) 30 mg Capsule, Delayed Release(E.C.) Take 120 mg by mouth daily. Or take 2x 60 mg daily ??? hydroCHLOROthiazide (HYDRODIURIL) 25 mg Tablet Take [...] 100 mg by mouth 2 times daily. ??? citalopram (CELEXA) 40 mg Tablet Take 1 tablet by mouth daily. (Patient not taking: Reported on 08/14/2018) 30 tablet 1 ??? busPIRone (BUSPAR) 7.5 mg Tablet Take 1 tablet by mouth 3 times daily. (Patient not taking: Reported on 08/14/2018) 90 tablet 5 No facility-administered medications prior to visit. Family and Social History: Interval changes: History reviewed. No pertinent family history. No family status information on file. Social History Socioeconomic History ??? Marital status: Spouse name: None ??? Number of children: None ??? Years of education: None ??? Highest education level: None Occupational History ??? None Social Needs ??? Financial resource strain: None ??? Food insecurity: Worry: None Inability: None ??? Transportation needs: Medical: None Non-medical: None Tobacco Use ??? Smoking status: Former Smoker Types: Cigarettes Last attempt to quit: 12/10/1977 Years since quittin.9 ??? Smokeless tobacco: Never Used Substance and Sexual Activity ??? Alcohol use: No ??? Drug use: No ??? Sexual activity: None Comment: Deferred Lifestyle ??? Physical activity: Days per week: None Minutes per session: None ??? Stress: None Relationships ??? Social connections: Talks on phone: None Gets together: None Attends orthodox service: None Active member of club or organization: None Attends meetings of clubs or organizations: None Relationship status: None ??? Intimate partner violence: Fear of current or ex partner: None Emotionally abused: None Physically abused: None Forced sexual activity: None Other Topics Concern ??? None Social History Narrative ??? None Objective: Vitals: 11/18/18 1506 BP: 137/73 BP Location (NBP): Right arm Patient Position: Sitting BP Cuff Sizes: Large Adult (32-43 cm) Pulse: 67 Weight: 96.2 kg (212 lb) Height: 185.4 cm (6' 1) General examination: Shows a very pleasant man who is well nourished and in no distress. Neurological examination: ?? Mental status: intelligent and conversant. Speech is slightly hypophonic. There is slight loss ofprosody. There is decreased blink rate. ?? Cranial [...] and triceps. ?? Coordination is intact to [id number]-joaked nose except for very slight left-handed action tremor which did not increase upon reaching the target (was not an intention tremor) ghsu-[id number] was intact bilaterally. ?? Gait examination shows [...] significant swaying but he did not fall. Assessment and Plan: Parkinson's disease The patient is a 63-year-old male with Parkinson's disease status post deep brain stimulator placement with improved mood on duloxetine. He is doing better on a higher dose but I would like to explore a higher dose at 120 mg/day. From a Parkinson's perspective, I would like to see whether entacapone will increase his response to levodopa. He also complains of an abnormal urinary stream and I will refer him to urology for this. He was encouraged to continue exercise such as walking and balance exercises. It sounds like his mood will improve as the weather improves. I will see him in follow-up in 3 months or sooner if the need arises. This was a 40 min visit with > 20 min in counseling and supportive discussion regarding the above assessment and plan. Patient instructions Patient Instructions You're doing better on the higher dose of duloxetine but let's explore 120 mg per day. For Parkinson's, you still have a lot of stffness and I would liek to see if you respond to the entacapone (previously did not in a Different situation). Finally, referral to urology for abnormal stream. Continue exercise (Waking, balance exercise). Try some hobbies as soon as the weather cooperates. Orders Orders Placed This Encounter Procedures ??? Referral to Urology Referral Priority: Routine Referral Type: Consultation Referral Reason: Consult, Test & Treat Requested Specialty: Urology Number of Visits Requested: 1 Medication changes: I have changed Timbo Faith's entacapone. I am also having him maintain his carbidopa-levodopa, metFORMIN, metoprolol, simvastatin, lisinopril, omeprazole, melatonin, cholecalciferol (VitaminD3), benztropine, busPIRone, acetaminophen, DULoxetine, and hydroCHLOROthiazide. Vishnu Hooper MD PhD [facility] Neurology documented in this encounter Miscellaneous Notes Assessment & Plan Note - Vishnu Hooper MD - 11/28/2018 9:10 AM EDTAssociated Problem(s): Parkinson's disease (Resolved 08/23/2020) The patient is a 63-year-old male with Parkinson's disease status post deep brain stimulator placement with improved mood on duloxetine. He is doing better on a higher dose but I would like to explore a higher dose at 120 mg/day. From a Parkinson's perspective, I would like to see whether entacapone will increase his response to levodopa. He also complains of an abnormal urinary stream and I will refer him to urology for this. He was encouraged to continue exercise such as walking and balance exercises. It sounds like his mood will improve as the weather improves. I will see him in follow-up in 3 months or sooner if the need arises. This was a 40 min visit with > 20 min in counseling and supportive discussion regarding the above assessment and plan. documented in this encounter Plan of Treatment Upcoming Encounters Date Type Specialty Care Team Description 03/20/2022 Office Visit Neurology Vishnu Hooper MD [facility] NEUROLOGY DEPT. [place], [place] [address] (Wo rk) Scheduled Referrals Name Type Priority Associated Diagnoses Order S chedule Referral to Outpatient Referral Routine Abnormal urinary Orde red: Urology stream 11/18/2018 documented as of this encounter Visit Diagnoses Diagnosis Abnormal urinary stream Other abnormality of urination Parkinson's disease Paralysis agitans documented in this encounter Care Teams Solar Development Engineer Relationship Specialty Start Date End Date Griselda Stanley MD PCP - General 07/04/10 02/03/22 documented as of this encounter
--- OUTSIDE RECORDS SUMMARY | 2022-02-26 04:01 | XMS_ITS | Encounter Summary ---
:1955 [place] [address] Care Team Providers Name Role Phone Griselda Stanley MD Primary Care Provider Encounter Details Date Type Department Care Team Description 07/01/2017 Telephone [place] [facility] Harvey Muniz DO [facility] [place] [address] NEUROSURGERY [phone] [place], [place] [address] (Wo rk) Social History Tobacco [...] this encounter Miscellaneous Notes Telephone Encounter - Harvey Muniz DO - 07/01/2017 4:38 AM EST TELEPHONE CONVERSATION The patient is a 61-year-old male who had phase 2 DBS placement on 06/24/[address] Sapp, where IPG was placed on the left side. The patient's contacted our Neurosurgery Clinic today on 07/01/2017 stating that over the last several days he has been complaining of right flank pain which has now increased in the last several hours. The patient has not had any fevers. The patient does not have dysuria or blood-tinged urine. The patient's incision appears to be healing well. The patient's denied that there is any drainage, any heat, any tenderness, any puffiness, or wound dehiscence. Per her assessment, it appears to be healing well, without any evidence of infection. She will take her to a local hospital to further work up possibility of nephrolithiasis. Should any questions arise, we would be available to answer them. documented in this encounter Plan of Treatment Upcoming Encounters Date Type Specialty Care Team Description 03/20/2022 Office Visit Neurology Vishnu Hooper MD [facility] NEUROLOGY DEPT. [place], [place] [address] (Wo rk) documented as of this encounter Visit Diagnoses Not on filedocumented in this encounter Care Teams Language Arts Teacher Relationship Specialty Start Date End Date Griselda Stanley MD PCP - General 07/04/10 02/03/22 documented as of this encounter
--- OUTSIDE RECORDS SUMMARY | 2022-02-26 04:01 | XMS_ITS | Encounter Summary ---
:1955 Author Organization [facility] [place] [address] Care Team Providers Name Role Phone Griselda Stanley MD Primary Care Provider Encounter Details Date Type Department Care Team Description 06/24/2017 Surgery Main Operating Room Randall Sapp PL ACEMENT ADD'L CRANIAL Pattie Krueger MD NEUROSTIMULATOR ([facility] 9.93) [facility] [place] [address] [place] [address] [phone] Social History Tobacco Use Types Packs/Day Years [...] Sign Reading Time Taken Comments Blood Pressure 158/89 06/24/2017 6:35 AM EST Pulse 61 06/24/2017 6:35 AM EST Temperature 36.9 ??C (98.4 ??F) 06/24/2017 6:35 AM EST Respiratory Rate 16 06/24/2017 6:35 AM EST Oxygen Saturation 97% 06/24/2017 6:35 AM EST Inhaled Oxygen Concentration - - Weight 100.3 kg (221 lb 1.9 oz) 06/24/2017 6:35 AM EST Height 185.4 cm (6' 1) 06/24/2017 6:35 AM EST Body Mass Index 29.17 06/24/2017 6:35 AM EST documented in this encounter Discharge Instructions Discharge Julián Osorio RN - 06/24/2017 11:01 AM EST POST [...] with each person. Pain (short term and shelter) ??? With any surgery there is some [...] Magnesia), may be used as needed. These punp-rpj-dqhqaoj (OTC) medications are available at your pharmacy without a prescription. Call the neurosurgery WORKERS COMPENSATION DEFENSE ATTORNEY director of analytics if you have questions. Complications Call your [...] Contact your Doctor Office Hours: Saturday through Saturday, 8am-5pm. Call . On weekends or after office hours: Call [phone] and ask the cager operator to page the Neurourgery Resident saturation equipment operator. IMPORTANT PHONE NUMBERS: Outpatient Nurse (Geeta Rees) Inpatient Nurses Neurosurgical Resident Spice Grinder (after 5pm or before 8am) Neurosurgery offices (between 8am-5pm): Dr. Vaz Dr. Arguello: Pediatric Patients , Adult Patients Dr. Tran Dr. Sapp Fidel Han, Physician White Metal Corrosion Proofer * Your surgeon may not be carbon capture power plant engineer, so be ready to tell about yourself [...] Sapp MD - 06/24/2017 11:32 AM EST [facility] Operative Note Patient Name: Timbo Su : [id number] MR#: [id number] Case Date: 06/24/2017 Surgeon: Surgeon(s) and Role: [...] draped in the usual sterile fashion. A [facility] mandated hard-stop time out was then [...] the pulse generator. We then used the Deemtronic tunneler to tunnelsubcutaneously from the cranial incision [...] then attached the distal end to the Brain[employer] PC pulsegenerator. We repeated this procedure for [...] Operative Note Patient Name: Timbo Su : [id number] MR#: [id number] Case Date: 06/24/2017 Surgeon: Surgeon(s) and Role: [...] 03/20/2022 Office Visit Neurology Vishnu Hooper MD [facility] NEUROLOGY DEPT. [place], [place] [address] (Wo rk) documented as of [...] Signature POC Glucose 148 65 - 199 [facility] mg/dL [facility] Comment: Supplemental ranges: <140 mg/dL before meals <180 mg/dL all other times of the day Specimen Anatomical Collection Method Collection Time Receive d Time (Source) Location / / Volume Laterality Blood specimen 06/24/2017 10:39 7 (specimen) AM EST 10:39 AM EST Randall Sapp MD POINT OF CARE TEST ORDERABLE S Performing Organization Address City/State/[place] [address] POCT Glucose (06/24/2017 6:55 AM EST) athologist Signature POC Glucose 119 65 - 199 [facility] mg/dL [facility] Comment: Supplemental ranges: <140 mg/dL before meals <180 mg/dL all other times of the day Specimen Anatomical Collection Method Collection Time Receive d Time (Source) Location / / Volume Laterality Blood specimen 06/24/2017 6:55 AM 017 6:55 (specimen) EST AM EST Randall Sapp MD POINT OF CARE TEST ORDERABLE S Performing Organization Address City/State/[place] [address] SCAN DOC: IMPLANTABLE DEVICES [...] sources in 24 hours., Routine bacitracin injection Given 06/24/2017 8:22 AM 10,000 Units 19- Surgi abelardo Site ONCE PRN, Starting on Sat EST 06/24/17 at 0822, Until Sat06/24/17 at 1431, Intra-Operative (Intra-Procedure), Routine BUpivacaine-EPINEPHrine 0.25 Given 06/24/2017 8:21 AM 10 mLs 19- Surgical Site %-1:200,000 injection EST ONCE PRN, Starting on Sat06/24/17 at 0821, Until Sat06/24/17 at 1431, Intra-Operative (Intra-Procedure), Routine cefTRIAXone (ROCEPHIN) 2g in dextrose 5% [...] (COMPLETED) 0728 (New Bag - Provider: Yolis Barnett RN)0858 (Due: Stopped - Provider: Yolis Barnett RN) [...] in 24 hours., Routine bacitracin injection (CANCELED) 0822 (Given - Provider: Braxton Hoang MD) ONCE PRN, Starting Sat06/24/17 at 0822, Until Sat06/24/17 at 1431, Intra- Operative (Intra-Procedure), Routine BUpivacaine-EPINEPHrine 0.25 %-1:200,000 injection (CANCELED) 0821 (Given - Provider: Braxton Hoang MD) ONCE PRN, Starting Sat06/24/17 at 0821, Until Sat06/24/17 at 1431, Intra- Operative (Intra-Procedure), Routine lidocaine (XYLOCAINE) 10 mg/mL (1 %) injection 3 mg (COMPLETED) 704 (Given - Provider: Yolis Barnett RN) 3 mg (0.3 mL), Subcutaneous, ONCE PRN, 1 dose, Starting Sat06/24/17 at 0632, Until Discontinued, for discomfort with PIV insertion, Day of Surgery (Day of Procedure), Routine oxyCODONE (ROXICODONE) immediate release tablet 5 mg 5 mg, Oral, EVERY 4 HOURS PRN, Starting Sat06/24/17 at 0921, Until Sat06/24/17 at 1431, Pain, Routine documented in this encounter Care Teams Canoe Builder Relationship Specialty Start Date End Date Griselda Stanley MD PCP - General 07/04/10 02/03/22 documented as of this encounter
--- OUTSIDE RECORDS SUMMARY | 2022-02-26 04:01 | XMS_ITS | Encounter Summary ---
:1955 Author Organization [place] [address] Care Team Providers Name Role Phone Griselda Stanley MD Primary Care Provider Encounter Details Date Type Department Care Team Description 09/10/2017 Office Visit Neurology at [facility] Vishnu Hooper MD Parkinson's disease [facility] [place] [address] NEUROLOGY DEPT. [phone] [place], [place] [address] (Wo rk) Social History Tobacco [...] place to sleep or slept in a chcf (including now)? Sex Assigned at Date Recorded Not on file documented as of this encounter Last Filed Vital Signs Vital Sign Reading Time Taken Comments Blood Pressure 150/78 09/10/2017 8:51 AM EST Pulse 62 09/10/2017 8:51 AM EST Temperature - - Respiratory Rate - - Oxygen Saturation - - Inhaled Oxygen Concentration - - Weight 104.8 kg (231 lb) 09/10/2017 8:51 AM EST Height 185.4 cm (6' 1) 09/10/2017 8:51 AM EST Body Mass Index 30.48 09/10/2017 8:51 AM EST documented in this encounter Progress Notes Vishnu Hooper MD - 09/10/2017 9:00 AM EST [facility] Follow-up Note Patient ID: Timbo Su is a 61 y.o. year old male who presents in follow-up for Parkinson's disease in the setting of the following problem list: Patient Active Problem List Diagnosis Code ??? Parkinson's disease G20 ??? Hypertension I10 ??? Hyperlipidemia E78.5 ??? Diabetes mellitus E11.9 ??? Carpal tunnel syndrome, bilateral G56.03 ??? Sciatica of left side M54.32 ??? Abnormal LFTs (liver function tests) R79.89 ??? Cholelithiasis K80.20 ??? REM behavioral disorder G47.52 ??? Ankle fracture, left S82.892A ??? Fatigue R53.83 ??? Orthostatic hypotension I95.1 ??? Sensory ataxia R27.8 ??? Diabetic polyneuropathy E11.42 ??? Mixed anxiety and depressive disorder F41.8 ??? S/P deep brain stimulator placement Z96.89 Subjective Interval history: He is here in the company of his Ana Lilia. He was followed since [address] Shields, who recently retired and was followed by Dr. Pattie Nevarez. She had initiated a workup with the intention of preoperative evaluation for deep brain stimulator surgery. This was initiated back in [facility], and he underwent neuropsychological testing that raise concern for neurocognitive impairment. It was felt that his problems were related to the dose of benztropine that he has been taking for tremor. He managed to retake for neuropsychological testing this January and there were improvements, but itwas not normal. He was unable to take himself completely off of the benztropine because the tremor became too severe. He was able to reach a compromise by taking only 0.5 mg which is equal to one half tablet twice daily. They had discussed the results with Dr. Gibbs. It was felt that it would be compatible to continue with deep brain stimulation with anticipating some mild cognitive worsening that coul d be managed by compensatory measures. Review of Systems: [x] Review of Systems otherwise negative. Adverse reactions/allergies: Allergies Allergen Reactions ??? Comtan [Entacapone] Nausea Only Shaking, muscle weakness. Medications at start of encounter: Current Outpatient Prescriptions Medication Sig Note ??? acetaminophen (TYLENOL) 500 mg Tablet Take 1,000 mg by mouth every 6 hours as needed for Pain. ??? citalopram (CELEXA) 40 mg Tablet Take 1 tablet by mouth daily. ??? busPIRone (BUSPAR) 7.5 mg Tablet Take 1 tablet by mouth 3 times daily. 07/25/2017: qid ??? cholecalciferol, Vitamin D3, 1,000 unit Tablet [...] 100 mg by mouth 2 times daily. Family and Social History: Interval changes: History [...] ??? None Social History Narrative Objective: Vitals: 09/10/17 0851 BP: 150/78 Pulse: 62 Weight: 104.8 kg (231 lb) Height: 185.4 cm (6' 1) examination shows a very pleasant man who is well nourished and in no distress. He does have difficulty with short-term recall. Speech is slightly hypophonic. There is slight loss of prosody. There isdecreased blink rate. Facial expression is slightly diminished but otherwise intact cranial nerves to detailed testing. Motor examination reveals right greater than left rigidity and bradykinesia. No rest tremor is noted. Extremity examination shows moderate hair loss distally to proximally, suggestive of a peripheral neuropathy. Vibratory sensation however was surprisingly preserved. He did have some decreased pinprick sensation from a distal to proximal gradient. Deep tendon reflexes were also 2+ at the patellar and 2+ at the ankles, and 1+ at the biceps and triceps. Coordination is intact to ejholi-ryeg-wozooc nose except for very slight left- handed action tremor which did not increase upon reaching the target (was not an intention tremor) [id number] was intact bilaterally. Gait examination shows that he is able [...] he did not fall. Assessment and Plan: No problem-specific Assessment & Plan notes found for this encounter. We spent 20 minutes of this 40 minute visit in consultation and discussion regarding the next stepsfor his surgical treatment of his Parkinson's disease. Vishnu Hooper MD PhD [facility] Neurology This note was generated with speech recognition software and may contain operations recruiter errors. documented in this encounter Plan of Treatment Upcoming Encounters Date Type Specialty Care Team Description 03/20/2022 Office Visit Neurology Vishnu Hooper MD [facility] NEUROLOGY DEPT. [place], [place] [address] (Wo rk) documented as of this encounter Visit Diagnoses Diagnosis Parkinson's disease Paralysis agitans documented in this encounter Care Teams Manager Renewable Energy Relationship Specialty Start Date End Date Griselda Stanley MD PCP - General 07/04/10 02/03/22 documented as of this encounter
--- OUTSIDE RECORDS SUMMARY | 2022-02-26 04:01 | XMS_ITS | Encounter Summary ---
:1955 Author Organization [facility] [place] [address] Care Team Providers Name Role Phone Griselda [...] Expiration Date Visits Requ ested Visits Authorized [id number] 1 1 Encounter Details Date Type Department Care Team Description 06/17/2017 - Hospital Encounter Surgical Intensive Randall Sapp, 06/18/2017 Care Unit - [facility] MD [facility] [place] [address] [place], [place] [phone] [id number] (Work) [phone] Social History Tobacco Use Types Packs/Day Years [...] Sign Reading Time Taken Comments Blood Pressure 125/69 06/18/2017 8:00 AM EST Pulse 65 06/18/2017 8:00 AM EST Temperature 37.1 ??C (98.8 ??F) 06/18/2017 8:00 AM EST Respiratory Rate 17 06/18/2017 8:00 AM EST Oxygen Saturation 99% 06/18/2017 8:00 AM EST Inhaled Oxygen Concentration - - Weight 100.3 kg (221 lb 1.9 oz) 06/18/2017 4:00 AM EST Height 185.4 cm (6' 1) 06/17/2017 6:40 AM EST Body Mass Index 29.17 06/17/2017 6:40 AM EST documented in this encounter Discharge Summaries Thony Quan PA - 06/18/2017 8:21 AM EST Inpatient - Discharge Summary Patient Name: Timbo Su Patient Age: 61 y.o. Birthdate: 1955 Admit date: 06/17/2017 Discharge date and time: 06/18/2017 Attending Physician: Randall Sapp MD Discharge Diagnoses (Hospital Problems) and Secondary Diagnoses (Chronic Problems): Active Hospital Problems Diagnosis ??? Parkinson's disease Resolved Hospital Problems Diagnosis Date Resolved No resolved problems to display. Active Non-Hospital Problems Diagnosis ??? Mixed anxiety and depressive disorder ??? Sensory ataxia ??? Diabetic polyneuropathy ??? Orthostatic hypotension ??? Hypertension ??? Hyperlipidemia ??? Diabetes mellitus With mild sensory polyneuropathy ??? Carpal tunnel syndrome, bilateral ??? Sciatica of left side ??? Abnormal LFTs (liver function tests) ??? Cholelithiasis ??? REM behavioral disorder ??? Ankle fracture, left ??? Fatigue Operations/Major Procedures: Operations: Procedure(s) with comments: @IMPLANTATION OF NEUROSTIMULATOR ELECTRODE-LISBETH (WRVU 33.03) - SAME DAY- Dr. Sapp History of Presentation: Timbo Su is a 61 yo man with medically refractory Parkinson's Disease primarily with UE R>Ltremor as well as bradykinesia and rigidity. He also has significant anxiety. His on-off testing demonstrated good responsiveness to dopamine replacement. Given his anxiety history, we discussed GPi target for DBS placement. He indicated understanding of the risks, benefits, and alternatives to surgery and a consent was signed. Hospital Course: Timbo Su underwent the aforementioned procedure on 06/17/2017. He tolerated the procedure well and there were no intraoperative complications. Pateint has remained neurologically and hemodynamically stable during the hospitalization. Patient was evaluated by PT/OT and deemed safe for discharge Home. On the day of discharged he is tolerating a regular diet, ambulating, voiding spontaneously, and his pain is controlled with oral medications. His incision is dry and intact. Important Studies and Lab Data: Labs: Lab Results Component Value Date/Time WBC 13.3 (H) 06/18/2017 01:00 AM HGB 12.4 (L) 06/18/2017 01:00 AM HCT 34.9 (L) 06/18/2017 01:00 AM PLATELET 140 (L) 06/18/2017 01:00 AM NA 141 06/18/2017 01:00 AM K 3.3 (L) 06/18/2017 01:00 AM CL 102 06/18/2017 01:00 AM CO2 24 06/18/2017 01:00 AM BUN 11 06/18/2017 01:00 AM CREATININE 0.71 (L) 06/18/2017 01:00 AM Studies: CT Head Wo Contrast Result Date: 06/17/2017 COMPARISON: CT head 06/10/2017 FINDINGS: Interval bilateral placement of deep brain stimulating electrodes, terminating in the region of the subthalamic nucleus.. Ventricles and sulci are normal in size and configuration. There is no intracranial hemorrhage, extra-axial collection,.. Postsurgical findings including pneumocephalus adjacent to the inner table of the frontal bones is present. The orbitsare normal. . The paranasal sinuses, mastoid air cells, and middle ear spaces are clear. The calvarium is intact other than bilateral fly holes. Incidental note made of dental caries left mandibular tooth 21 Interval placement of bilateral DBS electrodes in the basal ganglia. Expected postsurgical findings without acute abnormality. CT Head Wo Contrast Result Date: 06/10/2017 COMPARISON: Brain MRI 06/10/2017. FINDINGS: Examination performed for preoperative planning and intraoperative navigation. Fiducial markers are in place. No abnormalities detected. MRI Brain Wo Contrast Result Date: 06/10/2017 COMPARISON: CT head performed the same day FINDINGS: T1 and T2 signal drop out projecting over the left zygoma. Mild generalized sulcal prominence and commensurate ventricular dilation. No intra-axial or extra-axial hemorrhage, collection, mass, or mass effect. Increased T2 signal adjacent to the substantia nigra bilaterally, within the right paramedian yanely, and right middle cerebellar peduncle, andan etat crible pattern within the bilateral globus pallidus and putamen, likely represent dilated perivascular spaces or alternatively small lacunar infarcts. Central arterial T2 flow voids are normal in course and caliber. The orbits are normal. The paranasal sinuses, mastoid air cells, and middle ear spaces are clear. MRI for surgical planning. No acute process. Discharge Conditions/Prognosis: Stable Discharge to: Home Discharge Medications: Your Medications Continued medications, unchanged Dose Details acetaminophen 500 mg Tab Commonly known as: TYLENOL Take 1,000 mg by mouth every 6 hours as needed for Pain. 1000 mg Refills: 0 benztropine 1 mg Tab Commonly known as: COGENTIN Take by mouth 2 times daily. 1, 1 and half tab qhs Refills: 0 busPIRone 7.5 mg Tab Commonly known as: BUSPAR Take 1 tablet by mouth 3 times daily. 7.5 mg Quantity: 90 tablet Refills: 5 carbidopa-levodopa 25-250 mg Tab Commonly known as: SINEMET Take 1 tablet by mouth 4 times daily. 1 tablet Refills: 0 cholecalciferol (Vitamin D3) 1,000 unit Tab Take 1,000 Units by mouth daily. 1000 Units Refills: 0 citalopram 40 mg Tab Commonly known as: CeleXA Take 1 tablet by mouth daily. 40 mg Quantity: 30 tablet Refills: 1 lisinopril 40 mg Tab Commonly known as: PRINIVIL;ZESTRIL Take 1 tablet by mouth daily. 1 tablet Refills: 0 melatonin 3 mg Tab Take 6 mg by mouth nightly. 6 mg Refills: 0 metFORMIN 500 mg Tab Commonly known as: GLUCOPHAGE Take 250 mg by mouth 2 times daily (with meals). 250 mg Refills: 0 meTOPROLOL 100 mg Tab Commonly known as: LOPRESSOR Take 100 mg by mouth 2 times daily. 100 mg Refills: 0 omeprazole 40 mg Cpdr Commonly known as: PriLOSEC Take 40 mg by mouth as needed. 40 mg Refills: 0 oxyCODONE 5 mg Cap Take 5 mg by mouth every 6 hours as needed. 5 mg Refills: 0 simvastatin 20 mg Tab Commonly known as: ZOCOR Take 20 mg by mouth nightly. 20 mg Refills: 0 STOPPED Medications aspirin 81 mg Tbec ibuprofen 600 mg Tab Commonly known as: ADVIL;MOTRIN Updated Allergies/ADRs: Allergies Allergen Reactions ??? Comtan [Entacapone] Nausea Only Shaking, muscle weakness. Instructions Given to Patient at Discharge: Patient Instructions DBS PART 1 DISCHARGE INSTRUCTIONS PRESCRIPTION INSTRUCTIONS: Please see the medication reconciliation list on this discharge summary for a current list of your medications. Stop the use of blood thinning medications until instructed otherwise by your surgical team. This includes medications known as antiplatelet, anticoagulant, and non-steroidal anti-inflammatory (NSAIDs)drugs. Common dsmh-gvw-rvptvpp medications which should be avoided include Aspirin, ibuprofen, and naproxen among others. These medications are sometimes combined with other drugs or are sold under a trade name. Common prescription medications which should be avoided include Plavix (clopidogrel) and Coumadin (warfarin) among others. The following medications are commonly prescribed after surgery. An [X] indicates that these medications have been prescribed for you. [ ] Opioids - Pain relief: medications such as Roxicodone (oxycodone) or Dilaudid (hydromorphone) Opioids are commonly prescribed after surgery for severe pain. DO NOT use alcohol, drive, or operateheavy machinery while taking these medications. These medications may cause constipation. Stool softeners - Constipation relief: medications such as docusate or senakot Stool softeners are commonly used after surgery to help make stools easier to pass. These medications can be obtained lmej-awd-catuqry and their use is recommended on an as needed basis for hard or difficult stools. They should be discontinued for loose stools and diarrhea. WHEN TO SEEK MEDICAL CARE: - Signs or symptoms of an infection - Fever over 101F - Redness, swelling, or increasing pain around your incision - Drainage of pus, blood, or clear fluid from your incision - New neurologic symptoms - Worsening headaches not controlled with your pain medication - Drowsiness, confusion, and lethargy - Visual changes - Difficulty speaking or slurred speech - Facial droop - New weakness or sensory changes - New unsteadiness when walking - Seizures - Constipation not relieved by diet and over the counter stool softeners and laxatives - Nausea/vomiting (upset stomach) not controlled with your anti-nausea medication - Symptoms of a deep venous thrombosis (DVT) or pulmonary embolism (PE): -swelling/warmth/redness of the leg -pain in the leg, which can be worse with standing or walking -chest pain or shortness of breath To help prevent a DVT: -Exercise regularly. Walking, at least several times daily, is helpful. -Ankle pump exercises (like pressing and releasing the gas pedal) should be done regularly. -Keep hydrated with water or other clear liquids (coffee/tea/cola can dehydrate you). -Avoid alcohol and crossing your legs. -Remember not to sit or lay in bed, while awake, for prolonged amounts of time. WOUND CARE: - Keep incisional site clean and dry. If you have a dressing, it can be removed 2 days after surgery. - You may shower and shampoo incisional site, per your usual routine, 4 days after surgery. - Your incisions were closed with surgical glue and absorbable sutures. The sutures will dissolve ontheir own and do not need to be removed. DIET: - You may resume your usual diet. - A well-balanced diet is recommended for wound healing. - Prune juice or prunes can be added to your diet to assist with any constipation. ACTIVITY: - You may increase your activities as tolerated. - Restrict strenuous activity (such as running, jumping, jogging, shoveling, etc.) until cleared by your surgical team DRIVING: - [ ] You may return to driving 2 weeks after surgery. - [x] Do NOT drive until cleared by Neurosurgery. - [ ] You have had a seizure and driving is prohibited. (see State regulations). Speak to your doctor for further recommendations. FOLLOW UP PLAN: [x] You are scheduled to return on 06/24/2017 for DBS surgery part II. [x] Your scheduled postoperative follow up appointments are listed under the Future Appointments and Orders section of this document General Instructions None Future Appointments and Orders Future Appointments Provider Department Dept Phone 07/08/2017 10:00 AM Geeta Rees RN [facility] [phone] 07/25/2017 9:30 AM Geeta Rees RN [facility] [phone] 07/25/2017 10:30 AM Fidel Han PA; Randall Sapp MD [facility] [phone] 09/10/2017 9:00 AM Vishnu Hooper MD [facility] [phone] Electronically Signed By: JOSE Martines 06/18/2017 documented in this encounter Discharge Instructions Patient InstructionsThony Quan PA - 06/18/2017 8:42 AM EST DBS PART 1 DISCHARGE INSTRUCTIONS PRESCRIPTION INSTRUCTIONS: Please see the medication reconciliation list on this discharge summary for a current list of your medications. Stop the use of blood thinning medications until instructed otherwise by your surgical team. This includes medications known as antiplatelet, anticoagulant, and non-steroidal anti-inflammatory (NSAIDs)drugs. Common emco-whr-zfrigzt medications which should be avoided include Aspirin, ibuprofen, and naproxen among others. These medications are sometimes combined with other drugs or are sold under a trade name. Common prescription medications which should be avoided include Plavix (clopidogrel) and Coumadin (warfarin) among others. The following medications are commonly prescribed after surgery. An [X] indicates that these medications have been prescribed for you. [ ] Opioids - Pain relief: medications such as Roxicodone (oxycodone) or Dilaudid (hydromorphone) Opioids are commonly prescribed after surgery for severe pain. DO NOT use alcohol, drive, or operateheavy machinery while taking these medications. These medications may cause constipation. Stool softeners - Constipation relief: medications such as docusate or senakot Stool softeners are commonly used after surgery to help make stools easier to pass. These medications can be obtained mvqn-upc-nnavngt and their use is recommended on an as needed basis for hard or difficult stools. They should be discontinued for loose stools and diarrhea. WHEN TO SEEK MEDICAL CARE: - Signs or symptoms of an infection - Fever over 101F - Redness, swelling, or increasing pain around your incision - Drainage of pus, blood, or clear fluid from your incision - New neurologic symptoms - Worsening headaches not controlled with your pain medication - Drowsiness, confusion, and lethargy - Visual changes - Difficulty speaking or slurred speech - Facial droop - New weakness or sensory changes - New unsteadiness when walking - Seizures - Constipation not relieved by diet and over the counter stool softeners and laxatives - Nausea/vomiting (upset stomach) not controlled with your anti-nausea medication - Symptoms of a deep venous thrombosis (DVT) or pulmonary embolism (PE): -swelling/warmth/redness of the leg -pain in the leg, which can be worse with standing or walking -chest pain or shortness of breath To help prevent a DVT: -Exercise regularly. Walking, at least several times daily, is helpful. -Ankle pump exercises (like pressing and releasing the gas pedal) should be done regularly. -Keep hydrated with water or other clear liquids (coffee/tea/cola can dehydrate you). -Avoid alcohol and crossing your legs. -Remember not to sit or lay in bed, while awake, for prolonged amounts of time. WOUND CARE: - Keep incisional site clean and dry. If you have a dressing, it can be removed 2 days after surgery. - You may shower and shampoo incisional site, per your usual routine, 4 days after surgery. - Your incisions were closed with surgical glue and absorbable sutures. The sutures will dissolve ontheir own and do not need to be removed. DIET: - You may resume your usual diet. - A well-balanced diet is recommended for wound healing. - Prune juice or prunes can be added to your diet to assist with any constipation. ACTIVITY: - You may increase your activities as tolerated. - Restrict strenuous activity (such as running, jumping, jogging, shoveling, etc.) until cleared by your surgical team DRIVING: - [ ] You may return to driving 2 weeks after surgery. - [x] Do NOT drive until cleared by Neurosurgery. - [ ] You have had a seizure and driving is prohibited. (see State regulations). Speak to your doctor for further recommendations. FOLLOW UP PLAN: [x] You are scheduled to return on 06/24/2017 for DBS surgery part II. [x] Your scheduled postoperative follow up appointments are listed under the Future Appointments and Orders section of this document documented in this encounter Medications at Time [...] times daily. documented as of this encounter Progress Notes Rashmi Bhakta - 06/18/2017 7:45 AM EST NEUROSURGERY PROGRESS NOTE Timbo Su [id number] 1955 ID: 61 y.o. gentleman with parkinson's disease, POD 1 DBS implant GPi HD# 1 POD # 1 Day Post-Op INTERVAL HX/ROS: - No acute events - post-op CT with good placement, no hemorrhage MEDICATIONS: Scheduled Meds: ??? busPIRone 7.5 mg Oral TID ??? carbidopa-levodopa 1 tablet Oral 4 Times Daily ??? citalopram 40 mg Oral Daily ??? lisinopril 40 mg Oral Daily ??? melatonin 6 mg Oral Nightly ??? meTOPROLOL 100 mg Oral BID ??? simvastatin 20 mg Oral Daily with dinner ??? vancomycin 1.5 g Intravenous Q12H ??? sodium chloride 0.9 % 5 mL Intravenous BID ??? famotidine 20 mg Oral BID Or ??? famotidine 20 mg Intravenous BID ? ? insulin lispro 2-8 Units Subcutaneous 4 Times Daily AC & HS ??? senna-docusate 2 tablet Oral BID ??? benztropine 1 mg Oral Daily And ??? benztropine 1 mg Oral Q24H And ??? benztropine 0.5 mg Oral Nightly Continuous Infusions: ??? sodium chloride 0.9% 75 mL/hr (06/18/17 0202) PRN Meds: dextrose 50% OR glucagon (human recombinant), sodium chloride 0.9 %, lidocaine, ondansetron OR ondansetron, polyethylene glycol, acetaminophen OR acetaminophen, oxyCODONE OR oxyCODONE, labetalol, hydrALAZINE EXAM: Body mass index is 29.17 kg/(m^2). Temp: [36.5 ??C (97.7 ??F)-37.1 ??C (98.8 ??F)] Heart Rate: [56-73] Resp: [12-24] BP: (113-171)/(58-93) SpO2: [96 %-100 %] Heart Rate from SPO2: [56 bpm-73 bpm] I/O:I/O last 3 completed shifts: In: 2318 [P.O.:780; I.V.:1538] Out: 1175 [Urine:1175] GEN:NAD NEURO:AA+Ox3 Speech fluent and appropriate. Naming and repetition intact. PERRL. EOMI. Visual ward full to confrontation. No facial asymmetry Tongue midline MOTOR: RUE:5/5 LUE:5/5 RLE: 5/5 LLE: 5/5 No pronator drift LT sensation intact x 4 incision dry and intact LABS: Recent Labs 06/18/17 0100 WBC 13.3* HGB 12.4* PLATELET 140* Recent Labs 06/18/17 0100 06/17/17 1400 NA 141 142 K 3.3* 4.1 CL 102 100 CO2 24 25 BUN 11 14 CREATININE 0.71* 0.83 No results for input(s): PT, INR in the last 72 hours. IMAGING: post-op CT with good placement, no hemorrhage A/P: 61 y.o. gentleman with parkinson's disease, POD 1 DBS implant GPi. Doing well post-op. D/c home today. 1. Neuro: Close monitoring. Q4 neuro checks. 2. CVS: BP control, keep SBP<160 3. Resp: IS 4. GI: regular diet, PPI 5. Hem: Hold off anticoagulation. SCDs. 6. ID: vanc/ctx carlos-op 7. : DC bowen 8. FEK: IVF until good PO. Monitor lytes. PLEASE PAGE [phone] WITH QUESTIONS NEUROLOGIC: brain compression GI: malnutrition (protein/calorie restriction) cerebral edema post-operative ileus comatose delirium FLUIDS: hyponatremia encephalopathy hypernatremia alcohol withdrawal hyperkalemia seizures hypokalemia hypovolemia CARDIOVASCULAR: atrial fibrillation atrial flutter ENDOCRINE: diabetes mellitus hypertension hyperglycemia hypotension hypothyroid heart failure shock RENAL: acute renal failure venous thrombosis chronic renal failure RESPIRATORY: acute respiratory failure HEMATOLOGY: anemia atelectasis neutropenia pleural effusion thrombocytopenia pneumonia coagulopathy pneumothorax DIC pulmonary embolism INFECTION: bacteremia UTI OTHER: morbid obesity (BMI >40) SIRS underweight (BMI <19) sepsis wound care Active Hospital Problems Diagnosis ??? Parkinson's disease Resolved Hospital Problems Diagnosis Date Resolved No resolved problems to display. Active Non-Hospital Problems Diagnosis ??? Mixed anxiety and depressive disorder ??? Sensory ataxia ??? Diabetic polyneuropathy ??? Orthostatic hypotension ??? Hypertension ??? Hyperlipidemia ??? Diabetes mellitus ??? Carpal tunnel syndrome, bilateral ??? Sciatica of left side ??? Abnormal LFTs (liver function tests) ??? Cholelithiasis ??? REM behavioral disorder ??? Ankle fracture, left ??? Fatigue Rosa Nicole RCP - 06/17/2017 5:31 PM EST 06/17/17 1400 Oxygen Therapy O2 Device RA SpO2 97 % Resp 13 pt on room air maintaining sat. Pt has no treatments ordered at this time Will continue to monitor pt documented in this encounter H&P Notes Larry Canas MD - 06/17/2017 11:14 AM EST Critical Care - Admission Note History of Present Illness: Timbo Su is a 61 y.o. man with a PMH of Parkinson's disease (1996) symptomatic with refractoryR>L tremors, diabetic polyneuropathy (with sensory loss and sensory gait ataxia), HTN, HLP, and anxiety/depression. He was admitted to ICU s/p DBS implant for close neurological monitoring. Parkinson's symptoms medically managed prior to DBS with benztropine and carbidopa/levodopa. Benztropine caused memory issues and dose was reduced several months ago. He received precidex/propofol MAC anesthetic intraoperatively and OR course was unremarkable. He is here for Q1H neurochecks. Review of Systems: Negative except as noted above in 10 organ systems including general, cardiac, pulmonary, GI, renal,endocrine, neurological, psychiatric, MSK, and dermatologic. Past Medical History: Patient Active Problem List Diagnosis ??? Mixed [...] disorder ??? Ankle fracture, left ??? Fatigue GERD Past and Surgical History: Past Surgical History: Procedure Laterality Date ??? CHOLECYSTECTOMY ??? HIP SURGERY as a child ??? PRO APPLY/REMOVE CRANIAL FIX DEV Bilateral 06/10/2017 PLACEMENT-STARFIX FIDUCIALS (WRVU 4) performed by Randall Sapp MD at [facility] Current Medications: ??? BUpivacaine-EPINEPHrine 0.5 %-1:200,000 injection ??? gelatin adsorbable (GELFOAM) sponge ??? thrombin (bovine) (THROMBIN-JMI) solution ??? bacitracin injection ??? benztropine (COGENTIN) tablet 1 mg ??? busPIRone (BUSPAR) tablet 7.5 mg ??? carbidopa-levodopa (SINEMET) 25-250 mg per tablet 1 tablet ??? citalopram (CeleXA) tablet 40 mg ??? lisinopril (PRINIVIL;ZESTRIL) tablet 40 mg ??? melatonin tablet 6 mg ??? meTOPROLOL tartrate (LOPRESSOR) tablet 100 mg ??? simvastatin (ZOCOR) tablet 20 mg ??? vancomycin 1.5 g in sodium chloride 0.9% 250 mL ??? dextrose 50% IV syringe 25-50 mL OR glucagon (human recombinant) injection SolR 1 mg ??? sodium chloride 0.9 % flush 5 mL ??? sodium chloride 0.9 % flush 5-20 mL ??? lidocaine (XYLOCAINE) 10 mg/mL (1 %) injection 3 mg ??? ondansetron (ZOFRAN) tablet 4 mg OR ondansetron (ZOFRAN) injection 4 mg ??? famotidine (PEPCID) tablet 20 mg OR famotidine (PEPCID) injection 20 mg ??? POCT Fingerstick Glucose AND insulin lispro (humaLOG) VIAL injection 2-8 Units ??? sodium chloride 0.9% infusion ??? senna-docusate (PERICOLACE) 8.6-50 mg per tablet 2 tablet ??? polyethylene glycol (MIRALAX) packet 17 g ??? acetaminophen (TYLENOL) tablet 650 mg OR acetaminophen (TYLENOL) suppository 650 mg ??? oxyCODONE (ROXICODONE) immediate release tablet 5 mg OR oxyCODONE (ROXICODONE) immediate release tablet 10 mg ??? labetalol (NORMODYNE,TRANDATE) injection 10-20 mg ??? hydrALAZINE (APRESOLINE) injection 10 mg Home medications: Acetaminophen 500mg PO q6h PRN pain/headache ASA 81mg PO daily Benztropine 1mg PO daily, and 1.5mg PO nightly Buspirone 7.5mg PO TID Carbidopa/levodopa 25-250mg tab, 1tab PO QID Cholecalciferol 1000 units PO daily Citalopram 40mg PO daily Ibuprofen 600mg PO q6h PRN Lisinopril 40mg PO daily Melatonin 6mg PO qHS Metformin 250mg PO BID Metoprolol 100mg PO BID Omeprazole 40mg PO Daily Oxycodone 5mg PO q6h PRN pain Simvastatin 20mg PO qHS Allergies: Allergies Allergen Reactions ??? Comtan [Entacapone] Nausea Only Shaking, muscle weakness. Family History: Non-contributory Social History and Habits: Social History Social History ??? Marital status: Spouse name: N/A ??? Number of children: N/A ??? Years of education: N/A Occupational History ??? Not on file. Social History Main Topics ??? Smoking status: Former Smoker Types: Cigarettes Quit date: 12/10/1977 ??? Smokeless tobacco: Never Used ??? Alcohol use No ??? Drug use: No ??? Sexual activity: Not on file Comment: Deferred Other Topics Concern ??? Not on file Social History Narrative Physical Exam: Last Set of Vitals and range of vitals over past 24 hours: Last value Range last 24 hrs Temperature Temp: 36.5 ??C (97.7 ??F) Temp: [36.5 ??C (97.7 ??F)-36.6 ??C (97.9 ??F)] Heart Rate Heart Rate: 64 Heart Rate: [61-73] Blood Pressure BP: 126/62 BP: (123-176)/(62-82) Respiratory Rate Resp: 14 Resp: [14-24] SpO2 SpO2: 97 % SpO2: [96 %-99 %] Gen: AAOx4, sitting up in bed. Comfortable. HEENT: Sclera non-icteric, PERRL, craniotomy incision clean dry and intact, open to air CV: RRR, no m/r/g RESP: CTAB, no wheezing ABD: Soft, normoactive bowel sounds, ND/NT EXT: WWP, palpable pulses bilaterally Neuro: Moving all extremities. No facial asymmetry. Tongue is midline. Equal shoulder shrug. Speech is clear and fluent. Strength 5/5 all 4 ext. Sensation grossly intact all 4 ext. Laboratory (Last 24 Hours): Recent Results (from the past 24 hour(s)) POCT Glucose Result Value Ref Range POC Glucose 122 65 - 199 mg/dL POCT Glucose Result Value Ref Range POC Glucose 153 65 - 199 mg/dL Assessment/Plan: 61 y.o. man with PMH of Parkinson's disease dxed 1996 symptomatic with refractory R>L tremors, diabetic polyneuropathy (with sensory loss and sensory gait ataxia), HTN, HLP, and anxiety/depression admitted to ICU s/p DBS implant for close neurological monitoring. Neuro:- q1h neuro checks - pain control: oxycodone 5-10 mg q6h PRN - resume home meds: Celexa 40 mg PO daily, buspar 7.5mg PO TID, benztropine 1 mg PO QAM, 1.5 mg qhs, Sinemet 25/250 mg PO QID CV: - SBP goal: <160 - restart simvastatin Pulm: - stable on RA FEN: - monitor Na - BMP now to monitor vanco dosing, then check daily. GI: - PO as tolerated, no prophylaxis indicated : - monitor UOP Endo: - Q4 Hour Finger Sticks - SSI - BG <180 ID: - Vancomycin for ppx Heme: No active issues PPx: - DVT: SCDs, hold anticoag - GI: none indicated Disp: admit to ICU, Critical Care Red 1 Larry Canas MD 06/17/17 Braxton Hoang MD - 06/17/2017 6:59 AM EST H and P Timbo Su was seen in SDP. He is here for implantation of DBS electrodes. No interval events orchanges in health status since preoperative H+P (see EPIC). Denies angina/dyspnea/fevers or malaise within the last 14 days. All questions were answered. Allergies Allergen Reactions ??? Comtan [Entacapone] Nausea Only Shaking, muscle weakness. Patient Active Problem List Diagnosis Code ??? [...] ??? 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 INTRAOPERATIVE MONITORING REPORT Name: Timbo Su : 1955 Date of Surgery: 06/17/2017 Surgeon(s): Randall Sapp MD, Braxton Hoang MD. Surgical Procedure: Bilateral GPi Deep Brain Stimulator Placement Monitoring Procedure: Microelectrode recording of spontaneous and movement related extracellular unit and multiunit activity. This was done bilaterally along trajectories traversing MRI-defined stereotactic targets in the left and right GPi, and used to define/verify the deep brain stimulator (DBS) placements. Each DBS was subsequently inserted and tested using an external stimulator to ensure adequate operation and assess for side effects. Clinical History: 61-year-old male with longstanding Parkinson???s disease, depression, anxiety and DM. He feels that his tremor has gotten worse over the past year. CPT Codes: 14405 (ECoG), 27111 (FM 1st hr), 71629 (FM additional hour), 59865 (DBS stim testing, 2 units), IOM period = 1 hour 56 min. During this time period, the IOM attending was present in the operating room for a total of 1 hour and 56 mins. Total monitoring time: 1 hour 56 min. Monitoring Team: Chapin Mccabe MD/PhD, Jose Maria Colby PhD, Antonia Jean Baptiste CNNOA Anesthesia: Local anesthesia w/ sedation used as needed during dissection and closing Monitoring Time: 1 hour 56 min. Report: Following local anesthesia of the scalp and sterile draping, fly holes were drilled to accommodate three stereotactic guide tubes which defined linear trajectories passing through the anterior (A), central (C) and medial (M) parts of the MRI targets, and allowing introduction of the microelectrodes for neurophysiological assessment and subsequently the DBS for testing and final securement at the desired location. A 3-D accelerometer was placed on the contralateral arm to correlate cellular activityto contralateral spontaneous or intentional tremor. Microelectrodes??? impedances were measured to be 0.32 (A), 0.47 (C), and 0.40 (M) megaohms during the left insertions, 0.34 (A), 0.26 (C), and 0.46 (M) megaohms during the right insertions, respectively. The DBS electrode impedance ranges were 7439-6779 ohms and 2678-6375 ohms on the left and right, respectively. The left-sided microelectrodes revealed moderate amplitude multiple unit and bursting unit activity typical of the GPi most prominently from approximately 4.25 mm to 0.625 mm above the MRI target through all trajectories. The macroelectrode contacts from all three trajectories were sequentially stimulated up to 5 V using the microTargeting system. However, we did not see any significant improvement in the tremor for the anterior and central electrodes. There was some noted improvement with stimulating the medial electrode from 2- 4V. The patient did not report any side effects during this test stimulation. After some discussion, the DBS permanent electrode was then inserted with the bottom of contact 0 (0 is most distal, 3 most proximal) at the MRI target through the medial trajectory. This was then connected to a handheld trial stimulator, and a range of stimulation intensities from 0 to 4 V wastested. Reduced tremor and improvement of muscle tone with no adverse effects of the right upper extremity was noted with contact 1 negative and contact 2 positive from 1-4V. However, we did not observe as significantly improve result when stimulating with contact 0 negative and contact 1 positive from 1-4V. Based on this, it was agreed that placement at the target through the medial trajectory wouldbe sufficient for effective outpatient programming of the DBS. The electrode was then secured in place, and preparations were made for the right GPi DBS placement. The right-sided microelectrodes revealed relatively moderate amplitude activity from 5 mm above to the MRI target through the central trajectory. The DBS electrode was inserted with the bottom of contact 0 (0 is most distal, 3 most proximal) at the MRI target through the central trajectory. This was then connected to a handheld trial stimulator, and a range of stimulation intensities was tested. Improved tone and movement, and reduced tremor with no adverse effects of the right upper extremity were noted with contact 1 negative and contact 2 positive from 1 to 4 V. Some improvement in these respects was also noted with stimulation of electrodes 0- and 1+ from 1-4 V. Based on this, it was agreed that this placement would be sufficient for effective outpatient programming of the DBS. The electrode was then secured in place, and the operation was completed without incident. Chapin Mccabe MD/PhD CC: Randall Sapp MD documented in this encounter Miscellaneous Notes Initial Assessments - Lulu Medina RN - 06/18/2017 10:37 AM EST Office of Care Management Initial Assessment Lulu Medina RN reviewed record and discussed patient with Care Team. Source of Information: Patient and spouse Introduced self/reviewed role; services accepted. Reason for Hospitalization: Reason for Admission as Stated by Patient: brain surgery No past medical history on file. Hospitalizations Within the Past 30 Days: None identified Anticipated Length Of Stay (If known): Expected Length of Hospitalization: 1 day Current Decision-Making Capacity: Limited, patient has Parkinson's. Advance Care Planning: No, patient is not interested in advance directives. Current Coping/Education/Information Needs: Patient does have all his needs met by his spouse. Current Functional Ability: Patient uses a cane to ambulate out of doors. Functional Status Prior to Admission: Patient uses a cane to ambulate out of doors. Home Environment: 3 steps to get into home, no other steps inside of home to other living quarters. Social & Family Supports/Community Resources: No needs identified. Behavioral Health History: Parkinson's disease, anxiety, depression Substance Use/Abuse: Patient denies use of tobacco products, EtOH, and illicit drugs. Other Pertinent/Service Specific Information: None noted Health/Prescription Coverage: Primary Insurance: MEDICARE Secondary Insurance: [employer] Prescription Coverage:Medicare/Government Person[employer] [place] Preferred Pharmacy: [facility]-[place], [place] Other: TBD Primary Care Provider: Griselda Stanley MD [phone] Patient/Caregiver Goals of Treatment: Per spouse, patient is to have another surgery before he can resume outpatient PT/OT. Potential Needs for Transition of Care: Rehab/SNF: N/A Home Health: N/A DME: Uses cane out of doors. Dialysis: N/A Community Resources: TBD Transportation: will drive patient home in her private vehicle Other: None identified. Anticipated Barriers to Discharge/Special Considerations: No barriers anticipated to discharge. Plan: To go home with . A member of the Care Management team will continue to monitor progress, follow for continuity of care and assist with transition of care planning. Lulu Medina RN Pager: [phone] Plan of Care - Keren Haney RN - 06/18/2017 3:49 AM EST Problem: Patient Care Overview Goal: Plan of Care Review Outcome: Ongoing (Interventions Implemented as Appropriate) 06/17/171999 Coping/Psychosocial Plan Of Care Reviewed With patient OUTCOME EVALUATION NOTE: OUTCOME SUMMARY: Neuros unchanged through the night. Incontinent of urine, condom cath applied. PRN tylenol for pain. PLAN MOVING FORWARD: Continue to monitor neuro status INDIVIDUALIZED FALL PREVENTION INTERVENTIONS: Patient-specific fall risk factors per assessment: [current deficits]: S/p crani Assistance [level of assistance required for transfers and ambulation]: 2 assist Supervision [direct monitoring required during toileting and ADLs]: Hands on Surveillance [continuous indirect monitoring]: Alarms on and audible, room near nurses station, purposeful rounding Patient-specific fall prevention interventions for sensory deficits provided, if applicable: [X] No CPG GOAL OUTCOME EVALUATION: Op Note - Randall Sapp MD - 06/17/2017 7:19 PM EST [facility] [place] Patient Name: Timbo Su : [id number] MR#: [id number] Case Date: 06/17/2017 Surgeon: Surgeon(s) and Role: * Randall Sapp MD - Primary * Braxton Hoang MD - Resident-Surgeon Medardo Preoperative diagnosis: PARKINSON'S Postoperative diagnosis: PARKINSON'S Procedures: 1) Left fly hole for implantation of LEFT GPi DBS electrode with intraoperative microelectrode recordings 2) Additional RIGHT fly hole for implantation of additional RIGHT GPi DBS electrode with intraoperative microelectrode recordings Anesthesia: MAC Estimated Blood Loss: 50 cc Specimens removed during surgery: None Drains: None Surgical Closure: Primary Closure - closure of ALL tissue levels during the original surgery regardless of wires, wickes, drains, or other devices extruding through the incision Disposition: aroused from sedation, and taken to the recovery room in a stable condition Condition: doing well without problems (Please see the Surgical Encounter Summary for any Implant and Specimen details pertinent to this patient.) HPI/Surgical Indications: 61 yo man with medically refractory Parkinson's Disease primarily with UE R>L tremor as well as bradykinesia and rigidity. He also has significant anxiety. His on-off testing demonstrated good responsiveness to dopamine replacement. Given his anxiety history, we discussed GPi target for DBS placement. He indicated understanding of the risks, benefits, and alternatives to surgery and a consent was signed. Procedure Description: The patient was brought to the operating room and transferred from the stretcher to the operative room table. He was positioned supine with his head resting on a cerebellar head rest. An incision was marked along the coronal suture in an arc to encompass 4 cm off the midline in each direction. We thenused 1000 drapes to delineate an area anterior-posterior to our planned incision. We then prepped and draped in the usual sterile fashion. We performed a [facility] mandatory hard stop timeout, confirming the patient's name, medical record number, laterality of procedures, and imaging. We then began by instilling local anesthetic, which was 0.5% Marcaine with epinephrine along the incision, along the posterior right margin, in the planned tunneling trajectory, and at each of the 4 fiducial marker sites. We then used Metzenbaum scissors to bluntly dissect down to the bone anchors/fiducial markers. The PEEK plastic standoffs were then screwed in place at each of the 4 sites. The 3-D printed [employer] microTargeting platform frame was then brought onto the field and fitted in place. We then confirmed our incision location and removed the frame from the field. We used a #10 blade to incise the skin along the coronal suture and then used Weitlaner retractors to reflect the skin edges. We then replaced the frame and using the awl we marked the site of our fly holes. The frame was again removed and a rag baler bit attached the [place] [place] electric drill was used to create fly holes bilaterally. A 0 straightcuret was then used to remove any bony remnants. The stim lock was then positioned over each fly hole and screwed in place using 5 mm screws from the [employer] plating kit. We then used bipolar cautery to cauterize the dura and then used monopolar cautery to open the dura at the left- sided fly hole. We then opened the kathryn using bipolar forceps. The frame was then brought back onto the field and secured in place using the thumb screws at all 4 sites. The star drive was then placed onto the frame and the 3 cannulas were then placed in a [id number] directions through the star drive. We then advanced the recording electrodes through the 3 cannulas. Beginning 10 mm above the target we started microelectrode recordings. Based on our microelectrode recording activity and macrostimulation 1 cm above target, we determined that the medial trajectory was most favorable. Thus we chose to place the permanent electrode along the medial trajectory. We then tested stimulation and side effects. We found no significant side effects. We then placed the locking washer in to the stim lock and secured the electrode in place. The stylet was removed from the electrode. It was removed from the cannula anddrive, and the final cap was then placed. We then turned our attention to the right side. The star drive was moved to the right trajectory and the dura was opened as on the left side. The cannulas wereinserted, followed by microelectrodes. We then carried forward with microelectrode recordings, and determined the center trajectory was suitable. We again tested for simulation and side effects. We found no significant adverse effects. We also noted significant improvement in overall fluidy of movements. Thus, we were satisfied with our electrode placement and with her primary effect and side effect profile. The locking washer was then placed in the StimLoc device and locked into place. The stylet was then removed from the DBS electrode and the cap placed over the StimLoc to ensure the electrode did not migrate. The permanent electrodes were both Medtronic 3887 electrodes. At this point the microTargeting platform was removed along with the star drive. The cap and boot were then placed on the electrodes and secured in place using silk ties. A subgaleal pocket was created in the right posterior region of the scalp using Metzenbaum scissors, and the ends of the electrodes were then placed in thispocket with all the wires secured towards the pocket. We irrigated the wound copiously with bacitracin irrigation, and closed our incision using 3-0 Vicryl sutures in the galea in inverted fashion followed by a running 4-0 Vicryl Rapide suture and covered the wound with Dermabond. He was following commands briskly with good strength and no neurologic deficits. Speech was intact. A CT scan was obtained which demonstrated good electrode position and no acute bleeding. He was then taken to the Intensive Care Unit for further monitoring. Infection Bundle used? See Brief Op note Attestation: Case Date: 06/17/2017 I was present and I participated during the entire procedure (does not need to include opening and closing). Randall Sapp MD 06/17/2017 Plan of Care - Cathy Lowery RN - 06/17/2017 2:30 PM EST Problem: Skin Integrity Impairment, Risk/Actual (Adult) Goal: Identify Related Risk Factors and Signs and Symptoms Related risk factors and signs and symptoms are identified upon initiation of Human Response Clinical Practice Guideline (CPG) Outcome: Ongoing (Interventions Implemented as Appropriate) 06/17/17 1425 Skin Integrity Impairment, Risk/Actual Skin Integrity Impairment, Risk/Actual: Related Risk Factors surgery/procedure Goal: Skin Integrity/Wound Healing Patient will demonstrate the desired outcomes by discharge/transition of care. Outcome: Ongoing (Interventions Implemented as Appropriate) 06/17/17 1425 Skin Integrity Impairment, Risk/Actual (Adult) Skin Integrity/Wound Healing making progress toward outcome Problem: Patient Care Overview Goal: Plan of Care Review Outcome: Ongoing (Interventions Implemented as Appropriate) OUTCOME EVALUATION NOTE: OUTCOME SUMMARY: Pt arrived from OR at approximately 1145. Pt was A+OX4 at arrival. 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 Pt got a bath. Pt has baselines tremors from parkinsons and some tingling in feet from neuropathy. Familyhas been at bedside. Pain has been controled with PRN tylenol. When pt is anxious he becomes hypertensive but is able to be talked through anxiety and BP goes down. INDIVIDUALIZED FALL PREVENTION INTERVENTIONS: Patient-specific fall risk factors per assessment: [current deficits]: Lethargy, IVs Assistance [level of assistance required for transfers and ambulation]: Two assist Supervision [direct monitoring required during toileting and ADLs]: CRAS and RN Surveillance [continuous indirect monitoring]: Telemetry Patient-specific fall prevention interventions for sensory deficits provided, if applicable: [X] No CPG GOAL OUTCOME EVALUATION: Goal: Fall Prevention-Safe Patient Handling Outcome: Ongoing (Interventions Implemented as Appropriate) 06/17/17 1245 06/17/17 1400 Polanco Fall Risk History of Falling 25 -- Secondary Diagnosis 15 -- Ambulatory Aids 0 -- Intravenous Therapy/Heparin/Saline Lock 20 -- Gait/Transferring 0 -- Mental Status 15 -- Score 75 -- OTHER Polanco Fall Risk High -- Restraint Interventions Safety Promotion/Fall Prevention -- safety round/check completed Positioning Body Position -- neutral body alignment Goal: Infection Control Outcome: Ongoing (Interventions Implemented as Appropriate) 06/17/17 1200 Safety Interventions Isolation Precautions standard precautions maintained Infection Prevention single patient room provided Brief Op Note - Braxton Hoang MD - 06/17/2017 10:37 AM EST Brief Operative Note Patient Name: Timbo Su : [id number] MR#: [id number] Case Date: 06/17/2017 Surgeon: Surgeon(s) and Role: * Randall Sapp MD - Primary * Braxton Hoang MD - Resident-Surgeon Medardo Preoperative diagnosis: PARKINSON'S Postoperative diagnosis: PARKINSON'S Procedure(s): @IMPLANTATION OF NEUROSTIMULATOR ELECTRODE-LISBETH (WRVU 33.03) @IMPLANTATION OF ADD'L NEUROSTIMULATOR ELECTRODE (WRVU 7.91) MODIFIER MOVEMENT DISORDER MODIFIER DBS Anesthesia: General Findings: Successful placement of DBS bilaterally Complications: None Estimated Blood Loss: * No values recorded between 06/17/2017 8:37 AM and 06/17/2017 11:17 AM * Specimens removed during surgery: None Fluids: Intraprocedure [...] Visit Neurology Vishnu Hooper MD [facility] [address] NEUROLOGY DEPT. [place], [place] [address] (Wo rk) documented as of this encounter Procedures Procedure Name Priority Date/Time Associated Comments Diagnosis METAL WEATHER STRIPPER SCAN 06/19/2017 12:00 Res ults for this AM EST procedure are i n the results section. POCT GLUCOSE Routine 06/18/2017 8:13 Results for this AM EST procedure are i n the results section. POCT GLUCOSE Routine 06/18/2017 7:47 Results for this AM EST procedure are i n the results section. HEMOGRAM Routine 06/18/2017 1:00 Results for this AM EST procedure are i n the results section. DIFFERENTIAL, AUTOMATED Routine 06/18/2017 1:00 R esults for this AM EST procedure are i n the results section. CBC (WITH DIFF) Routine 06/18/2017 1:00 AM EST BASIC METABOLIC PANEL Routine 06/18/2017 1:00 Res ults for this (NON-FASTING) AM EST procedure are in the results section. POCT GLUCOSE Routine 06/17/2017 7:34 Results for this PM EST procedure are i n the results section. POCT GLUCOSE Routine 06/17/2017 3:23 Results for this PM EST procedure are i n the results section. BASIC METABOLIC PANEL Routine 06/17/2017 2:00 Res ults for this (NON-FASTING) PM EST procedure are in the results section. POCT GLUCOSE Routine 06/17/2017 11:53 Results for this AM EST procedure are i n the results section. CT HEAD WO CONTRAST Routine 06/17/2017 11:36 Resu lts for this (GENERIC) AM EST procedure are i n the results section. MODIFIER DBS Yes 06/17/2017 7:35 PARKINSON'S AM EST MODIFIER MOVEMENT Yes 06/17/2017 7:35 PARKINSON'S DISORDER AM EST @IMPLANTATION OF ADD'L Yes 06/17/2017 7:35 PARKINSON'S NEUROSTIMULATOR AM EST ELECTRODE (WRVU 7.91) @IMPLANTATION OF Yes 06/17/2017 7:35 PARKINSON'S NEUROSTIMULATOR AM EST ELECTRODE-LISBETH (WRVU 33.03) POCT GLUCOSE Routine 06/17/2017 6:42 Results for this AM EST procedure are i n the results section. IMPLANTABLE DEVICES SCAN 06/17/2017 12:00 Results for this AM EST procedure are i n the results section. documented in this encounter Results SCAN DOC: METAL WEATHER STRIPPER (06/19/2017 12:00 AM EST) Narrative 06/19/2017 12:00 AM EST This result has an attachment that is no t available. Ordered by an unspecified provider. Scanning Provider MEDIA MGR SCAN EXT ORDR/RSLT POCT Glucose (06/18/2017 8:13 AM EST) athologist Signature POC Glucose 182 65 - 199 [facility] mg/dL [facility] Comment: Supplemental ranges: <140 mg/dL before meals <180 mg/dL all other times of the day Specimen Anatomical Collection Method Collection Time Receive d Time (Source) Location / / Volume Laterality Blood specimen 06/18/2017 8:13 AM 017 8:13 (specimen) EST AM EST Randall Sapp MD POINT OF CARE TEST ORDERABLE S Performing Organization Address City/State/[place] [address] POCT Glucose (06/18/2017 7:47 AM EST) athologist Signature POC Glucose 165 65 - 199 [facility] mg/dL [facility] Comment: Supplemental ranges: <140 mg/dL before meals <180 mg/dL all other times of the day Specimen Anatomical Collection Method Collection Time Receive d Time (Source) Location / / Volume Laterality Blood specimen 06/18/2017 7:47 AM 017 7:47 (specimen) EST AM EST Randall Sapp MD POINT OF CARE TEST ORDERABLE S Performing Organization Address City/State/[place] [address] (ABNORMAL) Differential, Automated (06/18/2017 1:00 AM EST) [facility] gist Method Time Signature Neutrophils % 70.9 % [facility] Neutr Abs (ANC) 9.44 (H) 1.70 - [facility] 6.10 [facility] x10(3)/[facility] LABORATORY Lymphocytes % 18.6 % [facility] Lymphocytes Abs 2.5 0.9 - 3.2 [facility] x10(3)/[facility] LABORATORY Monocytes % 9.5 % [facility] Monocyte Abs 1.3 (H) 0.3 - 0.9 [facility] x10(3)/[facility] LABORATORY Eosinophils % 0.5 % [facility] Eosinophils Abs 0.1 0.0 - 0.4 [facility] x10(3)/[facility] LABORATORY Basophils % 0.1 % [facility] Basophils Abs 0.0 0.0 - 0.1 [facility] x10(3)/[facility] LABORATORY Immature Gran % 0.40 % [facility] Comment: Immature granulocytes(IG's)percentage an d absolute count will include metamyelocytes, myelocytes, and promyelo cytes. Blood smears from CBCs yielding IG's will be scanned manually for concor dance. If this scan disagrees with the automated IG or if promyelocytes are not ed, a manual differential will be performed. Anneliese Gran Abs 0.05 (H) 0.00 - 0.04 x10(3)/[facility] LABORATORY Specimen Anatomical Collection Method Collection Time Receive d Time (Source) Location / / Volume Laterality Blood specimen 06/18/2017 1:00 AM 017 1:10 (specimen) EST AM EST Resulting Agency Comment Spec In Lab Randall Sapp MD HEMATOLOGY ORDERABLES Performing Organization Address City/State/[place] [address] (ABNORMAL) Hemogram (06/18/2017 1:00 AM EST) Analysis Performed At Patho logist Time Signature WBC 13.3 (H) 4.0 - 9.5 [facility] x10(3)/[facility] LABORATORY RBC 3.95 (L) 4.58 - [facility] x10(6)/[facility] LABORATORY Hemoglobin 12.4 (L) 13.7 - [facility] 16.5 gm/dL [facility] LABORATORY Hematocrit 34.9 (L) 40.5 - [facility] 48.5 % [facility] LABORATORY MCV 88.4 82.9 - [facility] 93.1 [facility] LABORATORY MCH 31.4 27.5 - [facility] ESTELITA 32.1 pg [facility] LABORATORY MCHC 35.5 32.0 - [facility] 35.7 gm/dL [facility] LABORATORY Platelets 140 (L) 145 - 357 [facility] x10(3)/[facility] LABORATORY RDWSD 39.9 36.0 - [facility] 45.0 [facility] LABORATORY RDWCV 12.3 11.4 - [facility] 13.8 % [facility] LABORATORY MPV 10.7 7.6 - 12.9 [facility] LABORATORY nRBC % Auto 0.0 % [facility] LABORATORY nRBC Abs Auto 0.000 0.000 - [facility] 0.000 [facility] x10(3)/[facility] LABORATORY Specimen Anatomical Collection Method Collection Time Receive d Time (Source) Location / / Volume Laterality Blood specimen 06/18/2017 1:00 AM 017 1:10 (specimen) EST AM EST Resulting Agency Comment Spec In Lab Randall Sapp MD HEMATOLOGY ORDERABLES Performing Organization Address City/State/ZIP Code Ph[place] [address] (ABNORMAL) Basic Metabolic Panel (non-fasting) (06/18/2017 1:00 AM EST) P athologist Signature Glucose Lvl 132 65 - 199 [facility] mg/dL [facility] LABORATORY Comment: Diabetes: >=200 mg/dL plus symp toms BUN 11 10 - 20 mg/dL [facility] LABORATORY Creatinine 0.71 (L) 0.80 - 1.50 mg/dL [facility] LABORATORY Sodium 141 135 - 145 mmol/L [facility] LABORATORY Potassium 3.3 (L) 3.5 - 5.0 mmol/L [facility] LABORATORY Comment: Please note: ??Patients with WBC >100,00 0 may have falsely elevated Potassium levels. ??For accurate Potassium quantif ication in these patients send serum separator tube (gold top) for subsequent determinations. ??Contact the Clinical Chemistry Laboratory if there are any qu estions. Chloride 102 98 - 107 mmol/L [facility] LABORATORY CO2 24 22 - 31 mmol/L [facility] LABORATORY Anion Gap 15 5 - 15 mmol/L [facility] LABORATORY Calcium 8.3 (L) 8.5 - 10.5 mg/dL [facility] LABORATORY Estimated GFR >60 >=60 [facility] LABORATORY Comment: The reported eGFR should be multiplied b y 1.2 for patients. The MDRD is not an appropriate measure o f renal function for patients with body mass extremes or in patients with acute kidney failure. http://Fluidigm.viaCycle/DHnkdep http://Shoppilot/DHMCnkf Specimen Anatomical Collection Method Collection Time Receive d Time (Source) Location / / Volume Laterality Blood specimen 06/18/2017 1:00 AM 017 1:10 (specimen) EST AM EST Resulting Agency Comment Spec In Lab Randall Sapp MD CHEMISTRY ORDERABLES Performing Organization Address City/State/ZIP [place] [address] POCT Glucose (06/17/2017 7:34 PM EST) athologist Signature POC Glucose 156 65 - 199 [facility] mg/dL [facility] LABORATORY Comment: Supplemental ranges: <140 mg/dL before meals <180 mg/dL all other times of the day Specimen Anatomical Collection Method Collection Time Receive d Time (Source) Location / / Volume Laterality Blood specimen 06/17/2017 7:34 PM 017 7:34 (specimen) EST PM EST Randall Sapp MD POINT OF CARE TEST ORDERABLE S Performing Organization Address City/[facility]/ZIP Code Phon e Number [address] POCT Glucose (06/17/2017 3:23 PM EST) athologist Signature POC Glucose 112 65 - 199 [facility] mg/dL [facility] LABORATORY Comment: Supplemental ranges: <140 mg/dL before meals <180 mg/dL all other times of the day Specimen Anatomical Collection Method Collection Time Receive d Time (Source) Location / / Volume Laterality Blood specimen 06/17/2017 3:23 PM 017 3:23 (specimen) EST PM EST Randall Sapp MD POINT OF CARE TEST ORDERABLE S Performing Organization Address City/[facility]/ZIP [place] [address] (ABNORMAL) Basic Metabolic Panel (non-fasting) (06/17/2017 2:00 PM EST) athologist Signature Glucose Lvl 126 65 - 199 [facility] mg/dL [facility] LABORATORY Comment: Diabetes: >=200 mg/dL plus symp toms BUN 14 10 - 20 mg/dL [facility] LABORATORY Creatinine 0.83 0.80 - 1.50 mg/dL [facility] LABORATORY Sodium 142 135 - 145 mmol/L [facility] LABORATORY Potassium 4.1 3.5 - 5.0 mmol/L [facility] LABORATORY Comment: Please note: ??Patients with WBC >100,00 0 may have falsely elevated Potassium levels. ??For accurate Potassium quantif ication in these patients send serum separator tube (gold top) for subsequent determinations. ??Contact the Clinical Chemistry Laboratory if there are any qu estions. Chloride 100 98 - 107 mmol/L [facility] LABORATORY CO2 25 22 - 31 mmol/L [facility] LABORATORY Anion Gap 17 (H) 5 - 15 mmol/L [facility] LABORATORY Calcium 8.9 8.5 - 10.5 mg/dL [facility] LABORATORY Estimated GFR >60 >=60 [facility] LABORATORY Comment: The reported eGFR should be multiplied b y 1.2 for patients. The MDRD is not an appropriate measure o f renal function for patients with body mass extremes or in patients with acute kidney failure. http://Shoppilot/DHnkdep http://Shoppilot/DHMCnkf Specimen Anatomical Collection Method Collection Time Receive d Time (Source) Location / / Volume Laterality Blood specimen 06/17/2017 2:00 PM 017 2:13 (specimen) EST PM EST Resulting Agency Comment Spec In Lab Randall Sapp MD CHEMISTRY ORDERABLES Performing Organization Address City/State/ZIP Code Phon e Number [address] POCT Glucose (06/17/2017 11:53 AM EST) P athologist Signature POC Glucose 153 65 - 199 [facility] mg/dL [facility] LABORATORY Comment: Supplemental ranges: <140 mg/dL before meals <180 mg/dL all other times of the day Specimen Anatomical Collection Method Collection Time Receive d Time (Source) Location / / Volume Laterality Blood specimen 06/17/2017 11:53 7 (specimen) AM EST 11:53 AM EST Randall Sapp MD POINT OF CARE TEST ORDERABLE S Performing Organization Address City/State/[place] [address] Head wo Contrast (Generic) (06/17/2017 11:36 AM EST) Anatomical Region Laterality Modality Head Computed Tomography Specimen (Source) Anatomical Location Collection Method / Collectio n Time Received Time / Laterality Volume Impressions 06/17/2017 4:21 PM EST Interval placement of bilateral DBS electrodes in the basal ganglia. Expected postsurgical findings without a cute abnormality. I have personally reviewed the image(s) and the residents interpretation and agree with the findings, Elian Rowland MD at 06/17/2017 4:21 PM Narrative 06/17/2017 4:21 PM EST EXAMINATION: CT HEAD WO CONTRAST (GENERIC) CLINICAL HISTORY: PARKINSON'S TECHNIQUE: Helically acquired CT section s through the head were obtained without intravenous contrast. COMPARISON: CT head 06/10/2017 FINDINGS: Interval bilateral placement o f deep brain stimulating electrodes, terminating in the region of the subthal amic nucleus.. Ventricles and sulci are normal in size and configuration. There is no intracranial hemorrhage, extra-axial collection,.. Postsurgical f indings including pneumocephalus adjacent to the inner table of the front al bones is present. The orbits are normal. ??. The paranasal sinuses, masto id air cells, and middle ear spaces are clear. The calvarium is intact other raphael n bilateral fly holes. Incidental note made of dental caries le ft mandibular tooth 21 Procedure Note Elian Mckinnon MD - 06/17/2017Formatt ing of this note might be different from the original. EXAMINATION: CT HEAD WO CONTRAST (GENERI C) CLINICAL HISTORY: PARKINSON'S TECHNIQUE: Helically acquired CT section s through the head were obtained without intravenous contrast. COMPARISON: CT head 06/10/2017 FINDINGS: Interval bilateral placement o f deep brain stimulating electrodes, terminating in the region of the subthal amic nucleus.. Ventricles and sulci are normal in size and configuration. There is no intracranial hemorrhage, extra-axial collection,.. Postsurgical f indings including pneumocephalus adjacent to the inner table of the front al bones is present. The orbits are normal. . The paranasal sinuses, mastoid air cells, and middle ear spaces are clear. The calvarium is intact other raphael n bilateral fly holes. Incidental note made of dental caries le ft mandibular tooth 21 IMPRESSION Interval placement of bilateral DBS elec trodes in the basal ganglia. Expected postsurgical findings without a cute abnormality. I have personally reviewed the image(s) and the residents interpretation and agree with the findings, Elian Rowland MD at 06/17/2017 4:21 PM Randall Sapp MD IMG CT ORDERABLES POCT Glucose (06/17/2017 6:42 AM EST) athologist Signature POC Glucose 122 65 - 199 [facility] mg/dL [facility] LABORATORY Comment: Supplemental ranges: <140 mg/dL before meals <180 mg/dL all other times of the day Specimen Anatomical Collection Method Collection Time Receive d Time (Source) Location / / Volume Laterality Blood specimen 06/17/2017 6:42 AM 017 6:42 (specimen) EST AM EST Randall Sapp MD POINT OF CARE TEST ORDERABLE S Performing Organization Address City/State/Z[place] [address] SCAN DOC: IMPLANTABLE DEVICES (06/17/2017 12:00 AM EST) Narrative 06/17/2017 12:00 AM EST This result has an attachment that is no t available. Ordered by an unspecified provider. Scanning Provider MEDIA MGR SCAN EXT ORDR/RSLT documented in this encounter Visit Diagnoses Diagnosis Parkinson's disease Paralysis agitans documented in this encounter Administered Medications Inactive Administered Medications - up to 3 most recent administrations Medication Order MAR Action Action Date Dose Rate Site acetaminophen (TYLENOL) suppository 650 mg 650 mg, Rectal, EVERY 4 HOURS PRN, Starting on 01/26 at 1151, Until Sat06/18/17 at 1242, Pain, mild pain, Give p er rectum ([place]) if unable to take PO. May repeat once in 30 minutes if desired effect not achiev ed. Do not exceed 4000 mg acetaminophen per day. Mild pain (1-3)., Routine acetaminophen (TYLENOL) tablet 650 mg Given 06/18/2017 12:51 AM EST 650 mg 650 mg, Oral, EVERY 4 HOURS PRN, Starting on Sat06/17/17 at 1151, Until Sat06/18/17 at 1242, Pain, mild pain, May repeat once in 30 minutes if desired effect not achieved. Do not exceed 4000 mg acetaminophen per day. Mild pain (1-3)., Routine Given 06/17/2017 12:40 PM EST 650 mg benztropine (COGENTIN) tablet 0.5 mg Given 06/17/2017 8:37 PM EST 0.5 mg 0.5 mg, Oral, NIGHTLY, First dose on Sat06/17/17 at 2100, Until Discontinued, Routine benztropine (COGENTIN) tablet 1 mg Given 06/17/2017 4:00 PM EST 1 mg 1 mg, Oral, EVERY MORNING, First dose (after last modification) on Sat06/17/17 at 1530, Until Discontinued, Routine benztropine (COGENTIN) tablet 1 mg Given 06/18/2017 8:32 AM EST 1 mg 1 mg, Oral, DAILY, First dose on Sat06/18/17 at 0900, Until Discontinued, Routine benztropine (COGENTIN) tablet 1 mg 1 mg, Oral, EVERY 24 HOURS, First dose o n Sat06/17/17 at 1400, Until Discontinued, Routine busPIRone (BUSPAR) tablet 7.5 mg Given 06/18/2017 8:27 AM EST 7.5 mg 7.5 mg, Oral, 3 TIMES DAILY, First dose on Sat06/17/17 at 1500, Until Discontinued, Routine Given 06/17/2017 8:42 PM EST 7.5 mg Given 06/17/2017 3:59 PM EST 7.5 mg carbidopa-levodopa (SINEMET) 25-250 mg per Given 06/18 8:32 AM EST 1 tablet tablet 1 tablet 1 tablet, Oral, 4 TIMES DAILY, First dose on Sat06/17/17 at 1300, Until Discontinued, Routine Given 06/17/2017 8:37 PM EST 1 tablet Given 06/17/2017 5:51 PM EST 1 tablet citalopram (CeleXA) tablet 40 mg Given 06/18/2017 8:33 AM EST 40 mg 40 mg, Oral, DAILY, First dose on Sat06/17/17 at 1400, Until Discontinued, Routine Given 06/17/2017 1:55 PM EST 40 mg dextrose 50% IV syringe 25-50 mL 25-50 mL (12.5-25 g), Intravenous, EVERY 1 HOUR PRN, S tarting on Sat06/17/17 at 1151, Until Sat06/18/17 at 1242, Low blo od sugar, For BG 50-70: [...] the duration of the active insulin., Routine famotidine (PEPCID) injection 20 mg 20 mg, Intravenous, 2 TIMES DAILY, First dose on Sat08/17/16 at 1215, Until Discontinued, Routine famotidine (PEPCID) tablet 20 mg Given 06/18/2017 8:27 AM EST 20 mg 20 mg, Oral, 2 TIMES DAILY, First dose on Sat06/17/17 at 1215, Until Discontinued, If unable to take PO, may give IV, Routine Given 06/17/2017 8:41 PM EST 20 mg glucagon (human recombinant) injection S olR 1 mg 1 mg, Intramuscular, EVERY 1 HOUR PRN, S tarting on Sat06/17/17 at 1151, Until Sat06/18/17 at 1242, Low blood sugar, For BG 50-70: 120 [...] the duration of the active insulin., Routine insulin lispro (humaLOG) VIAL injection 2-8 Given 02/2017 8:30 AM EST 4 Units Units 2-8 Units, Subcutaneous, 4 TIMES DAILY BEFORE MEALS & NIGHTLY, First dose on Sat06/17/17 at 1300, Until Discontinued, CORRECTION BOLUS Moderate BG 140 - 160 Give 2 units BG 161 - 200 Give 4 units BG 201 - 240 Give 6 units BG greater than 240, give 8 units and recheck BG in 2 hours.If BG less than 240 after two hours, give no insulin and resume prior schedule. If BG remains greater than 240, repeat 8 units (no more than three times) & call for new basal insulin orders. DO NOT hold if NPO, unless specifically told to do so., Routine Given 06/17/2017 8:30 PM EST 2 Units Given 06/17/2017 12:26 PM EST 2 Units labetalol (NORMODYNE,TRANDATE) injection 10-20 Given 08/17/2016 5:48 PM EST 10 mg mg 10-20 mg, Intravenous, EVERY 1 HOUR PRN, Starting on Sat06/17/17 at 1151, Until Sat06/18/17 at 1242, High Blood Pressure, Target systolic blood pressure (SBP) less than 160 mmHg. Administer 10 mg over 2 minutes. May repeat every 15 minutes if SBP remains above goal. If inadequate effect with second 10 mg dose then increase dose to 20 mg for subsequent dosing every 15 minutes. Dose not to exceed 300 mg per day. Hold if pulse is less than 50 beats per minute., Routine lactated Ringers infusion 1,000 New Bag 06/17/2017 7:25 AM EST 1,000 mLs 100 mL/hr mL 1,000 mL, at 100 mL/hr, Intravenous, CONTINUOUS, Starting on Sat06/17/17 at 0730, Until Sat06/17/17 at 1151, Day of Surgery (Day of Procedure) lidocaine (XYLOCAINE) 10 mg/mL (1 %) injection Given 08/17/2016 7:20 AM EST 3 mg 3 mg 3 mg (0.3 mL), Subcutaneous, ONCE PRN, 1 dose, Starting on Sat06/17/17 at 0704, Until Sat06/17/17 at 0720, for discomfort with PIV insertion, Day of Surgery (Day of Procedure), Routine lisinopril (PRINIVIL;ZESTRIL) tablet 40 mg Given 06/18/2017 8:33 AM EST 40 mg 40 mg, Oral, DAILY, First dose on Sat06/17/17 at 1215, Until Discontinued, Routine melatonin tablet 6 mg Given 06/17/2017 8:41 PM EST 6 mg 6 mg, Oral, NIGHTLY, First dose on Sat06/17/17 at 2100, Until Discontinued, Routine meTOPROLOL tartrate (LOPRESSOR) tablet 1 00 mg Given 06/18/2017 8:27 AM EST 100 mg 100 mg, Oral, 2 TIMES DAILY, First dose on Sat06/17/17 at 1215, Until Discontinued, Routine Given 06/17/2017 8:41 PM EST 100 mg Given 06/17/2017 12:40 PM EST 100 mg ondansetron (ZOFRAN) injection 4 mg 4 mg, Intravenous, EVERY 8 HOURS PRN, St arting on Sat06/17/17 at 1151, Until Sat06/18/17 at 1242, Nausea, If multiple antiemetics are ordered, use ondansetron first, prochlorperazine second, and meta clopramide third. May repeat times one in 30 minutes if ineffective ondansetron (ZOFRAN) tablet 4 mg 4 mg, Oral, EVERY 8 HOURS PRN, Starting on Sat06/17/17 at 1151, Until Sat06/18/17 at 1242, Nausea, Vomiting, If multipl e antiemetics are ordered, use ondansetron first, prochlorperazine second, and metaclopramide thi rd. PO Preferred. If patient unable to take PO, may give IV if ordered. May repeat times one in 45 minutes if ineffective., Routine oxyCODONE (ROXICODONE) immediate release tablet 10 mg 10 mg, Oral, EVERY 4 HOURS PRN, Starting on Sat06/17/17 at 1151, Until Sat06/18/17 at 1242, Pain, severe pain (7-10), May g darwin an additional 5 mg in 30 minutes once if pain not relieved. Severe pain (7-10), Routine oxyCODONE (ROXICODONE) immediate release tablet 5 mg 5 mg, Oral, EVERY 4 HOURS PRN, Starting on Sat06/17/17 at 1151, Until Sat06/18/17 at 1242, Pain, mild to moderate pain (1-6), May give a n additional 5 mg in 30 minutes once if pain not relieved. Mild to moderate pa in (1-6), Routine potassium chloride (K-DUR/KLOR-CON) extended Given 02/2017 2:01 AM EST 40 mEq release tablet 40 mEq 40 mEq, Oral, ONCE, 1 dose, On Sat06/18/17 at 0215, Routine senna-docusate (PERICOLACE) 8.6-50 mg per Given 2016 12:40 PM EST 2 tablets tablet 2 tablet 2 tablet, Oral, 2 TIMES DAILY, First dose on Sat06/17/17 at 1215, Until Discontinued, Routine simvastatin (ZOCOR) tablet 20 mg Given 06/17/2017 5:50 PM EST 20 mg 20 mg, Oral, DAILY WITH DINNER, First dose on Sat06/17/17 at 1700, Until Discontinued, Routine sodium chloride 0.9 % flush 5 mL Given 06/17/2017 8:43 PM EST 5 mLs 5 mL, Intravenous, 2 TIMES DAILY, First dose on Sat06/17/17 at 1215, Until Discontinued, Recovery (Recovery-Hospital Unit), Routine Given 06/17/2017 12:25 PM EST 5 mLs sodium chloride 0.9% infusion New Bag 06/18/2017 2:02 AM EST 75 mL/hr 75 mL/hr 75 mL/hr, Intravenous, CONTINUOUS, Starting on Sat06/17/17 at 1215, Until Sat06/18/17 at 1242, Recovery (Recovery-Hospital Unit) New Bag 06/17/2017 12:26 PM EST 75 mL/hr 75 mL/hr vancomycin 1.5 g in sodium New Bag 06/18/2017 8:25 AM EST 1.5 g 166.7 mL/hr chloride 0.9% 250 mL 1.5 g, Intravenous, EVERY 12 HOURS, First dose (after last modification) on Sat06/17/17 at 2000, Until Discontinued, Administer over 90 Minutes, Maximum infusion rate is 1 gram/hour. If flushing of the face, neck, upper body, arms, and/or back occurs decrease infusion rate by 50% to reduce the severity of symptoms. This medication may have an associated drug lab level. Please see MAR for scheduled level. Warning Vesicant/Irritant Medication , Indication for (Active or Suspected): Prophylaxis New Bag 06/17/2017 8:32 PM EST 1.5 g 166.7 mL/hr documented in this encounter Active and Recently Administered Medications Due to Daylight Saving Time, this section may contain times in both EDT and EST. Scheduled Medication Order 06/16/2017 06/17/2017 06/18/2017 benztropine (COGENTIN) tablet 0.5 mg(Linked Group 1) 2036 (Given - Provider: Keren Haney RN) 0.5 mg, Oral, NIGHTLY, First dose on Sat06/17/17 at 2100, Until Discontinued, Routine benztropine (COGENTIN) tablet 1 mg (CANCELED) 1600 (Given - Provider: Cathy Lowery RN) 1 mg, Oral, EVERY MORNING, First dose on Sat06/17/17 at 1530, Until Discontinued, Routine benztropine (COGENTIN) tablet 1 mg(Linked Group 1) 0832 (Given - Provider: Calli Webb RN) 1 mg, Oral, DAILY, First dose on 02/25 at 0900, Until Discontinued, Routine benztropine (COGENTIN) tablet 1 mg(Linked Group 1) 1 mg, Oral, EVERY 24 HOURS, First dose o n Sat06/17/17 at 1400, Until Discontinued, Routine busPIRone (BUSPAR) tablet 7.5 mg 1559 (G iven - Provider: Cathy Lowery, JANNETTE)2042 (Given - Provider: Keren Haney RN) 0827 (Given - Provider: Calli Webb RN) 7.5 mg, Oral, 3 TIMES DAILY, First dose on Sat06/17/17 at 1500, Until Discontinued, Routine carbidopa-levodopa (SINEMET) 25-250 mg per tablet 1 tablet 1355 (Given - Provider: Cathy Lowery RN)1751 (Given - Provider: Diego Lopez RN)2036 (Given - Provider: Keren Haney RN) 0832 (Given - Provider: Calli Webb RN) 1 tablet, Oral, 4 TIMES DAILY, First dos e on Sat06/17/17 at 1300, Until Discontinued, Routine cefTRIAXone (ROCEPHIN) 2g in dextrose 5% 50mL (COMPLETED) 0755 (Given - Provider: Manny Hua CRNA) 2 g, Intravenous, ONCE, 1 dose, 06/17 at 0730, Administer over 30 Minutes, In OR, Indication for (Active or Suspected): Prophylaxis citalopram (CeleXA) tablet 40 mg 1355 (G iven - Provider: Cathy Lowery RN) 0833 (Given - Provider: Calli Wolfe i, RN) 40 mg, Oral, DAILY, First dose on Sat at 1400, Until Discontinued, Routine famotidine (PEPCID) injection 20 mg(Linked Group 2) 121 (See Alternative - Provider: Cathy Lowery RN)2040 (See Alternative - Provider: Keren Haney RN) 0827 (See Alternative - Provider: Aj Webb RN) 20 mg, Intravenous, 2 TIMES DAILY, First dose on Sat06/17/17 at 1215, Until Discontinued, Routine famotidine (PEPCID) tablet 20 mg(Linked Group 2) 1215 (Not Given - Provider: Cathy Lowery RN - Reason: See comment - Comment: Not verified)2040 (Given - Provider: Keren Haney RN) 0827 (Given - Provider: Calli Wolfe i, RN) 20 mg, Oral, 2 TIMES DAILY, First dose o n Sat06/17/17 at 1215, Until Discontinued, If unable to take PO, may give IV, Routine insulin lispro (humaLOG) VIAL injection 2-8 Units(Linked Du up 3) 1226 (Given - Provider: Cathy Lowery RN)2029 (Given - Provider: Keren Haney RN) 0830 (Given - Provider: Calli Webb RN) 2-8 Units, Subcutaneous, 4 TIMES DAILY B EFORE MEALS & NIGHTLY, First dose on Sat06/17/17 at 1300, Until Discontinued, CORRECTION BOLUS Moderate BG 140 - 160 Give 2 units BG 161 - 200 Give 4 unit s BG 201 - 240 Give 6 units BG greater t lin 240, give 8 units and recheck BG in 2 hours.If BG less than 240 after two hours, give no insulin and resume prior schedule. If BG remains greater than 240, re peat 8 units (no more than three times) & call for new basal insulin orders. DO NOT hold if NPO, unless specifically told to do so., Routine lisinopril (PRINIVIL;ZESTRIL) tablet 40 mg 1215 (Hold - Provider: Cathy Lowery RN - Reason: Medication Discontinued) 0833 (Given - Provider: Calli Webb RN) 40 mg, Oral, DAILY, First dose on Sat at 1215, Until Discontinued, Routine melatonin tablet 6 mg 2040 (Given - Provider: Dwayne Haney RN) 6 mg, Oral, NIGHTLY, First dose on Sat08/17/16 at 2100, Until Discontinued, Routine meTOPROLOL tartrate (LOPRESSOR) tablet 100 mg 1240 (Given - Provider: Cathy Lowery RN)2040 (Given - Provider: Keren Haney RN) 0827 (Given - Provider: Calli Webb RN) 100 mg, Oral, 2 TIMES DAILY, First dose on Sat06/17/17 at 1215, Until Discontinued, Routine potassium chloride (K-DUR/KLOR-CON) extended release tablet 40 mEq (COMPLETED) 0201 (Given - Provider: Avinash Blanco N) 40 mEq, Oral, ONCE, 1 dose, Sat06/18/17 at 0215, Routine senna-docusate (PERICOLACE) 8.6-50 mg per tablet 2 tablet 1240 (Given - Provider: Cathy Lowery RN)2100 (Not Given - Provider: Keren Haney RN - Reason: Contraindicated) 0900 (Not Given - Provider: Calli eden RN - Reason: Patient/family refused) 2 tablet, Oral, 2 TIMES DAILY, First dos e on Sat06/17/17 at 1215, Until Discontinued, Routine simvastatin (ZOCOR) tablet 20 mg 1750 (Given - P rovider: Diego Lopez RN) 20 mg, Oral, DAILY WITH DINNER, First do se on Sat06/17/17 at 1700, Until Discontinued, Routine sodium chloride 0.9 % flush 5 mL (CANCELED) 1225 (Given - Provider: Cathy Lowery RN)2042 (Given - Provider: Keren Haney RN) 5 mL, Intravenous, 2 TIMES DAILY, First dose on Sat06/17/17 at 1215, Until Discontinued, Recovery (Recovery-Hospital Unit), Routine vancomycin 1.5 g in sodium chloride 0.9% 250 mL (COMPLETED) 0740 (Given - Provider: Manny Hua CRNA) 1.5 g, Intravenous, ONCE, 1 dose, Sat at 0730, Administer over 90 Minutes, Maximum infusion rate is 1 gram/hour. If flushing of the face, neck, upper body, arms, and/or back occurs decrease infu jose rate by 50% to reduce the severity of symptoms. This medication may have an associated drug lab level. Please see MAR for scheduled level. Warning Vesicant/Irritant Medication , Indication for (Active or Suspected): Prophylaxis vancomycin 1.5 g in sodium chloride 0.9% 250 mL 2031 (New Bag - Provider: Keren Haney RN)220 (Stopped - Provider: Keren Haney RN) 0825 (New Bag - Provider: Calli Webb RN)0955 (Due: Stopped - Provider: Calli Webb RN) 1.5 g, Intravenous, EVERY 12 HOURS, Firs t dose on Sat06/17/17 at 2000, Until Discontinued, Administer over 90 Minutes, Maximum infusion rate is 1 gram/hour. If flushing of the face, neck, upper body, ar ms, and/or back occurs decrease infusion rate by 50% to reduce the severity of symptoms. This medication may have an associated drug lab level. Please see MAR for scheduled level. Warning Vesicant/Ir ritant Medication , Indication for (Active or Suspected): Pro phylaxis Continuous Medication Order 06/16/2017 06/17/2017 06/18/2017 lactated Ringers infusion 1,000 mL (CANCELED) 0725 (New Bag - Provider: Maria D Rose RN)0810 (Anesthesia Volume Adjustment - Provider: Manny Hua CRNA)0922 (Anesthesia Volume Adjustment - Provider: Manny Hua CRNA) 1,000 mL, at 100 mL/hr, Intravenous, CON TINUOUS, Starting Sat06/17/17 at 0730, Until Sat06/17/17 at 1151, Day of Surgery (Day of Procedure) sodium chloride 0.9% infusion 1226 (New Bag - Provider: Cathy Lowery RN) 0202 (New Bag - Provider: Keren Haney RN) 75 mL/hr, at 75 mL/hr, Intravenous, CONT INUOUS, Starting Sat06/17/17 at 1215, Until Sat06/18/17 at 1242, Recovery (Recovery-Hospital Unit) PRN Medication Order 06/16/2017 06/17/2017 06/18/2017 acetaminophen (TYLENOL) suppository 650 mg(Linked Group 4) 1240 (See Alternative - Provider: Cathy Lowery RN) 005 (See Alternative - Provider: Keren Haney RN) 650 mg, Rectal, EVERY 4 HOURS PRN, Start ing Sat06/17/17 at 1151, Until Sat06/18/17 at 1242, Pain, mild pain, Give per rectum (OH) if unable to take PO. May repeat once in 30 minutes if desired effect no t achieved. Do not exceed 4000 mg acetam inophen per day. Mild pain (1-3)., Routine acetaminophen (TYLENOL) tablet 650 mg(Linked Group 4) 1240 (Given - Provider: Cathy Lowery RN) 005 (Given - Provider: Avinash Blanco) 650 mg, Oral, EVERY 4 HOURS PRN, Startin g Sat06/17/17 at 1151, Until Sat06/18/17 at 1242, Pain, mild pain, May repeat once in 30 minutes if desired effect not achieved. Do not exceed 4000 mg acetaminophen per day. Mild pain (1-3)., Routine bacitracin injection (CANCELED) 1040 (Gi analilia - Provider: Randall Sapp MD - Comment: 02486 units added to a liter LR) ONCE PRN, Starting Sat06/17/17 at 1040, Until Sat06/17/17 at 1803, Intra- Operative (Intra-Procedure), Routine BUpivacaine-EPINEPHrine 0.5 %-1:200,000 injection (CANCELED) 0834 (Given - Provider: Randall Sapp MD)0837 (Given - Provider: Randall Sapp MD) ONCE PRN, Starting Sat06/17/17 at 0834, Until Sat06/17/17 at 1803, Intra- Operative (Intra-Procedure), Routine dextrose 50% IV syringe 25-50 mL(Linked Group 5) 25-50 mL (12.5-25 g), Intravenous, EVERY 1 HOUR PRN, Starting Sat06/17/17 at 1151, Until Sat06/18/17 at 1242, Low blood sugar, For BG 50-70: 120 mL Juice or Regular (not diet) soda OR 12.5 gram (25 mL ) Dextrose 50% IV OR, if no IV access, 1 mg Glucagon IM. Recheck BG in 30 minutes. May repeat juice, dextrose or glucagon once per episode For BG less than 50: 240 mL Juice or Regular (not diet) sod a OR 25 grams (50 mL) Dextrose 50% IV OR , if no IV access, 1 mg Glucagon IM. Recheck BG in 30 minutes. May repeat juice, dextrose, or glucagon once per episode. To avoid extravasation, push Dextrose 50% SLOWLY (3 mL over 1 minute) in a pa tent, running IV, preferably a central line. For persistent hypoglycemia, consider longer-acting treatment for the duration of the active insulin., Routine gelatin adsorbable (GELFOAM) sponge (CANCELED) 0836 (Given - Provider: Randall Sapp MD - Comment: Small gelfoam soaked in thrombin 5,000 units and used as needed throughout the case.)0925 (Given - Provider: Randall Sapp MD - Comment: Small gelfoam soaked in thrombin 5,000 units ONCE PRN, Starting Sat06/17/17 at 0836, Intra-Operative (Int ra-Procedure) and used as needed throughout the case.) glucagon (human recombinant) injection SolR 1 mg(Linked Group 5) 1 mg, Intramuscular, EVERY 1 HOUR PRN, S tarting Sat06/17/17 at 1151, Until Sat06/18/17 at 1242, Low blood sugar, For BG 50-70: 120 mL Juice or Regular (not diet) soda OR 12.5 gram (25 mL) Dextrose 50% IV OR, if no IV access, 1 mg Glucagon I M. Recheck BG in 30 minutes. May repeat [...] the duration of the active insulin., Routine hydrALAZINE (APRESOLINE) injection 10 mg 10 mg, Intravenous, EVERY 1 HOUR PRN, St arting Sat06/17/17 at 1151, Until Sat06/18/17 at 1242, High Blood Pressure, Target systolic blood pressure (SBP) less than 160 mmHg. Administer 10 mg IV . May rep eat once in 15 minutes if SBP greater th an target BP (caution if HR greater than 90). Use if labetalol ineffective after 1 hour., Routine labetalol (NORMODYNE,TRANDATE) injection 10-20 mg 1747 (Given - Provider: Diego Lopez RN) 10-20 mg, Intravenous, EVERY 1 HOUR PRN, Starting Sat06/17/17 at 1151, Until Sat06/18/17 at 1242, High Blood Pressure, Target systolic blood pressure (SBP) less than 160 mmHg. Administer 10 mg over 2 mi nutes. May repeat every 15 minutes if SB P remains above goal. If inadequate effect with second 10 mg dose then increase dose to 20 mg for subsequent dosing every 15 minutes. Dose not to exceed 300 mg pe r day. Hold if pulse is less than 50 beats per minute., Routi ne lidocaine (XYLOCAINE) 10 mg/mL (1 %) injection 3 mg (COMPLET ED) 0720 (Given - Provider: MariaD Rose RN) 3 mg (0.3 mL), Subcutaneous, ONCE PRN, 1 dose, Starting Sat06/17/17 at 0704, Until Discontinued, for discomfort with PIV insertion, Day of Surgery (Day of Procedure), Routine ondansetron (ZOFRAN) injection 4 mg(Linked Group 6) 4 mg, Intravenous, EVERY 8 HOURS PRN, St arting Sat06/17/17 at 1151, Until Sat06/18/17 at 1242, Nausea, If multiple antiemetics are ordered, use ondansetron first, prochlorperazine second, and metaclo pramide third. May repeat times one in 30 minutes if ineffecti ve ondansetron (ZOFRAN) tablet 4 mg(Linked Group 6) 4 mg, Oral, EVERY 8 HOURS PRN, Starting Sat06/17/17 at 1151, Until Sat06/18/17 at 1242, Nausea, Vomiting, If multiple antiemetics are ordered, use ondansetron first, prochlorperazine second, and meta clopramide third. PO Preferred. If pat ient unable to take PO, may give IV if ordered. May repeat times one in 45 minutes if ineffective., Routine oxyCODONE (ROXICODONE) immediate release tablet 10 mg(Linked Du up 7) 10 mg, Oral, EVERY 4 HOURS PRN, Starting Sat06/17/17 at 1151, Until Sat06/18/17 at 1242, Pain, severe pain (7-10), May give an additional 5 mg in 30 minutes once if pain not relieved. Severe pain (7-10), Routine oxyCODONE (ROXICODONE) immediate release tablet 5 mg(Linked Grou p 7) 5 mg, Oral, EVERY 4 HOURS PRN, Starting Sat06/17/17 at 1151, Until Sat06/18/17 at 1242, Pain, mild to moderate pain (1-6), May give an additional 5 mg in 30 minutes once if pain not relieved. Mild to moderate pain (1-6), Routine polyethylene glycol (MIRALAX) packet 17 g 17 g, Oral, DAILY PRN, Starting 06/17 at 1151, Until Sat06/18/17 at 1242, Constipation, Administer if needed per patient's routine or if no bowel movement within 48 hours to achieve: 1) One bowel movement at least every 48 hours, AND 2) Without straining. If multiple bowel medications ordered, consider polyethylene glycol(MIRALAX) first., Routine thrombin (bovine) (THROMBIN-JMI) solution (CANCELED) 0836 (Given - Provider: Randall Sapp MD - Comment: Small gelfoam soaked in thrombin 5,000 units and used as needed throughout the case.)0925 (Given - Provider: Randall Sapp MD - Comment: Small gelfoam soaked in thrombin 5,000 units ONCE PRN, Starting Sat06/17/17 at 0836, Intra-Operative (Int ra-Procedure) and used as needed throughout the case.) Linked Groups Order Group 1: benztropine (COGENTIN) tablet 1 mgJump to med 1 mg, Oral, DAILY, First dose on 02/25 at 0900, Until Discontinued, Routine And benztropine (COGENTIN) tablet 1 mgJump to med 1 mg, Oral, EVERY 24 HOURS, First dose o n Sat06/17/17 at 1400, Until Discontinued, Routine And benztropine (COGENTIN) tablet 0.5 mgJump to med 0.5 mg, Oral, NIGHTLY, First dose on Sat06/17/17 at 2100, Until Discontinued, Routine Group 2: famotidine (PEPCID) tablet 20 mgJump to med 20 mg, Oral, 2 TIMES DAILY, First dose o n Sat06/17/17 at 1215, Until Discontinued
If unable to take PO, may give IV
Routine Or famotidine (PEPCID) injection 20 mgJump to med 20 mg, Intravenous, 2 TIMES DAILY, First dose on Sat06/17/17 at 1215, Until Discontinued, Routine Group 3: POCT Fingerstick Glucose (CANCELED) Routine, 4 TIMES DAILY BEFORE MEALS & AT BEDTIME, First occurrence on Sat06/17/17 at 1700, Until Specified
Consider choosing FOUR TIMES A DAY BEFORE MEALS AND AT BEDTIME as frequency fo r: Patients who have a good hypoglycemia awareness: -Patients who are eating meals during the day and sleeping at night -Patient who are otherwise stable And insulin lispro (humaLOG) VIAL injection 2-8 UnitsJump to med 2-8 Units, Subcutaneous, 4 TIMES DAILY B EFORE MEALS & NIGHTLY, First dose on Sat06/17/17 at 1300, Until Discontinued
CORRECTION BOLUS Moderate BG 140 - 160 Give 2 units BG 161 - 200 & nbsp;Give 4 units BG 20 1 - 240 Give 6 units BG greater than 240, give 8 units and recheck BG in 2 hours.If BG less than 240 a fter two hours, give no insulin and resu me prior schedule. If BG remains greater than 240, repeat 8 units (no more than three times) & call for new basal insulin orders. & nbsp; DO NOT hold if NPO, unless sp ecifically told to do so.
Routine Group 4: acetaminophen (TYLENOL) tablet 650 mgJump to med 650 mg, Oral, EVERY 4 HOURS PRN, Startin g Sat06/17/17 at 1151, Until Sat06/18/17 at 1242, Pain, mild pain
May repeat once in 30 minutes if desired effect not achieved. Do not exceed 4000 mg adams taminophen per day. Mild pain (1-3).
Routine Or acetaminophen (TYLENOL) suppository 650 mgJump to med 650 mg, Rectal, EVERY 4 HOURS PRN, Start ing Sat06/17/17 at 1151, Until Sat06/18/17 at 1242, Pain, mild pain
Give per rectum (OH) if unable to take PO. May repeat once in 30 minutes if desired e ffect not achieved. Do not exceed 4000 m g acetaminophen per day. Mild pain (1-3).
Routine Group 5: dextrose 50% IV syringe 25-50 mLJump to med 25-50 mL (12.5-25 g), Intravenous, EVERY 1 HOUR PRN, Starting Sat06/17/17 at 1151, Until Sat06/18/17 at 1242, Low blood sugar
For BG 50- 70: 120 mL Juice or Regular (not t) soda OR 12.5 gram (25 mL) Dextrose 50 % IV OR, if no IV access, 1 mg Glucagon IM. Recheck BG in 30 minutes. May repeat juice, dextrose or glucagon once per epis ode For BG less than 50: 240 mL J uice or Regular (not diet) soda OR 25 grams (50 mL) Dextrose 50% IV OR, if no IV access, 1 mg Glucagon IM. Recheck BG in 30 minutes. & nbsp;May repeat juice, dextrose, or gluc agon once per episode. To avoid extravasation, push Dextrose 50% SLOWLY (3 mL over 1 minute) in a patent, running IV, preferably a central line.&nb sp;For persistent hypoglycemia, consid er longer-acting treatment for the duration of the active insulin.
Routine Or glucagon (human recombinant) injection SolR 1 mgJump to med 1 mg, Intramuscular, EVERY 1 HOUR PRN, S tarting Sat06/17/17 at 1151, Until Sat06/18/17 at 1242, Low blood sugar
For BG 50-70: 120 mL Juice or Regular (not diet) soda OR 12. 5 gram (25 mL) Dextrose 50% IV OR, if no IV access, 1 mg Glucagon IM. Recheck BG in 30 minutes. May repeat juice, dextrose or glucagon once per episode * *For BG less than 50: 240 mL Juice or Re gular (not diet) soda OR 25 grams (50 mL) Dextrose 50% IV OR, if no IV access, 1 mg Glucagon IM. Recheck BG in 30 minutes. May repea t juice, dextrose, or glucagon once per episode. To avoid extravasation, push Dextrose 50% SLOWLY (3 mL over 1 minute) in a patent, running IV, preferably a central line. For persi stent hypoglycemia, consider longer-acti ng treatment for the duration of the active insulin.
Routine Group 6: ondansetron (ZOFRAN) tablet 4 mgJump to med 4 mg, Oral, EVERY 8 HOURS PRN, Starting Sat06/17/17 at 1151, Until Sat06/18/17 at 1242, Nausea, Vomiting
If multiple antiemetics are ordered, use ondansetron first, prochlorperazine second, and metaclopramide third. PO Pref erred. If patient unable to take PO, may give IV if ordered. May repeat times one in 45 minutes if ineffective.
Routine Or ondansetron (ZOFRAN) injection 4 mgJump to med 4 mg, Intravenous, EVERY 8 HOURS PRN, St arting Sat06/17/17 at 1151, Until Sat06/18/17 at 1242, Nausea
If multiple antiemetics are ordered, use ondansetron first, prochlorperazine second, and metaclopramide third. May repeat times one in 30 minutes if ineffective
Group 7: oxyCODONE (ROXICODONE) immediate release tablet 5 mgJump to med 5 mg, Oral, EVERY 4 HOURS PRN, Starting Sat06/17/17 at 1151, Until Sat06/18/17 at 1242, Pain, mild to moderate pain (1-6)
May give an additional 5 mg in 30 minutes once if pain not relieved. Mild to moderate pain (1-6)
Routine Or oxyCODONE (ROXICODONE) immediate release tablet 10 mgJump to med 10 mg, Oral, EVERY 4 HOURS PRN, Starting Sat06/17/17 at 1151, Until 11/7/17 at 1242, Pain, severe pain (7-10)
May give an additional 5 mg in 30 minutes once if pain not relieved. Severe pain (7-10)
Routine documented in this encounter Care Teams Data Control Clerk Relationship Specialty Start Date End Date Griselda Stanley MD PCP - General 07/04/10 02/03/22 documented as of this encounter
--- OUTSIDE RECORDS SUMMARY | 2022-02-26 04:01 | XMS_ITS | Encounter Summary ---
:1955 Author Organization [facility] [place] [address] Care Team Providers Name Role Phone Griselda Stanley MD Primary Care Provider Encounter Details Date Type Department Care Team Description 08/23/2019 Telephone Neurology at [facility] [place] Yeimy Junior MD [facility] [place] [address] NEUROLOGY DEPT [phone] [place] [id number] (Wo rk) Social History Tobacco Use Types [...] this encounter Miscellaneous Notes Telephone Encounter - Yeimy Junior MD - 08/23/2019 6:36 PM EST Telephone Encounter Note - 08/23/2019 6:36 PM Timbo Su is a 63 y.o. male with a PMHx of PD (being followed by Dr. Hooper; s/p DBS, on entacapone 200 mg TID and Sinemet 25-250 1 tablet QID) whose called after she had learned that he intentionally took 10 Sinemet tablets on Saturday in an attempted suicide attempt. Per , she did not learn about this until today and he had been doing well since Saturday. His is concerned about toxicity and further management. She does admitted they have firearms in the house but they are locked in a secure area. At present, she is at home from taking medical leave for her knee replacements and can supervise him at home. Quang that she has taken his vital signs at home and they are normal. Informed that any ill effect from Sinemet overdose should have been seen by now and recommendedcontinued dosing of his Sinemet as schedule but all medications should be administered by her. Advised to take patient to the ED if she is concerned about his safety at home. Yeimy Junior MD Neurology, PGY3 Personal Pager #[phone] 08/23/2019 N.B. Since we have not evaluated this patient, this is not an official consultation and we are not stating that a specific treatment decision is correct or incorrect. documented in this encounter Plan of Treatment Upcoming Encounters Date Type Specialty Care Team Description 03/20/2022 Office Visit Neurology Vishnu Hooper MD [facility] [place] [address] (Wo rk) documented as of this encounter Visit Diagnoses Not on filedocumented in this encounter Care Teams Eye Glass Frame Polisher Relationship Specialty Start Date End Date Griselda Stanley MD PCP - General 07/04/10 02/03/22 documented as of this encounter
--- OUTSIDE RECORDS SUMMARY | 2022-02-26 04:01 | XMS_ITS | Encounter Summary ---
:1955 Author Organization [facility] [place] [address] Care Team Providers Name Role Phone Griselda Stanley MD Primary Care Provider Encounter Details Date Type Department Care Team Description 08/14/2018 Office Visit [place]rology [place] [facility] [place]nu Hooper MD Parkinson's disease [facility] [place] [address] NEUROLOGY DEPT. [phone] [place], [place] [address] (Wo rk) Social History Tobacco [...] Sign Reading Time Taken Comments Blood Pressure 125/59 08/14/2018 1:33 PM EST Pulse 63 08/14/2018 1:33 PM EST Temperature - - Respiratory Rate - - Oxygen Saturation - - Inhaled Oxygen Concentration - - Weight 94.8 kg (209 lb) 08/14/2018 1:33 PM EST Height 182.9 cm (6') 08/14/2018 1:33 PM EST reported Body Mass Index 28.35 08/14/2018 1:33 PM EST documented in this encounter Patient Instructions Patient InstructionsVishnu Hooper MD - 08/14/2018 1:45 PM EST So far, doing well on PD medicaitons and DBS. Would not change anything at this point. From an anxietry and depression standpoint, would agree with stahing away from celexxa. Not sure whyduloxetin benefit has beeen incomplete. Would suggest thtat w e try a higher dose (90 mg ) a day and assess in a month. If you're still not feeling well after that would advise switching to s venlafaxine or sertraline. . documented in this encounter Progress Notes Vishnu Hooper MD - 08/14/2018 1:45 PM EST [facility] Follow-up Note Patient ID: [...] ??? S/P deep brain stimulator placement ??? Parkinson's disease Interval history: He had some issues with upset mid epigastic burning pain. He had some testing thatsuggested. He has some NSAID related problems which resolved after stopping. He saw Geeta in October of last year. When I saw him 6 months ago, he still complains of tight leads. It still protrudes. I also took him off the buspar and he was started on the duloxetine and has been on that since April. He feels that is helping for depression. He still cronin sanxoety. Has been on Duloxtine 30 mg bid, since the end of May. It's helping but he still has problems. Review of Systems: [ ] Review of Systems otherwise negative. Adverse reactions/allergies: Allergies Allergen Reactions ??? Comtan [Entacapone] Nausea Only Shaking, muscle weakness. Medications at start of encounter: Outpatient Medications Prior to Visit Medication Sig Dispense Refill ??? DULoxetine (CYMBALTA) 30 mg Capsule, Delayed Release(E.C.) Take 60 mg by mouth daily. ??? hydroCHLOROthiazide (HYDRODIURIL) 25 mg Tablet [...] education: None ??? Highest education level: None Social Needs ??? Financial resource strain: None ??? Food insecurity - worry: None ??? Food insecurity - inability: None ??? Transportation needs - medical: None ??? Transportation needs - non-medical: None Occupational History ??? None Tobacco Use ??? Smoking status: Former Smoker Types: Cigarettes Last attempt to quit: 12/10/1977 Years since quittin.7 ??? Smokeless tobacco: Never Used Substance and Sexual Activity ??? Alcohol use: No ??? Drug use: No ??? Sexual activity: None Comment: Deferred Other Topics Concern ??? None Social History Narrative ??? None Objective: Vitals: 08/14/18 1333 BP: 125/59 BP Location (NBP): Left arm Patient Position: Sitting BP Cuff Sizes: Adult (25-34 cm) Pulse: 63 Weight: 94.8 kg (209 lb) Height: 182.9 cm (6') General examination: Shows a very pleasant man [...] and triceps. ?? Coordination is intact to [id number] nose except for very slight left-handed action tremor which did not increase upon reaching the target (was not an intention tremor) [id number] was intact bilaterally. ?? Gait examination shows [...] not fall. Assessment and Plan: Parkinson's disease Timbo Su is a 62 yo male with tremor, and bradykinesia that has responded well to PD medicationsand DBS. I would not change any thing at this point. From anxiety and depresson, would avoid celexa and would try a higher dose of duloxetine. He is not feeling any better would opt for venlafaxine or sertraline. In this 25 minute visit, greater than 15 minutes were spent in supportive counseling and therapeuticplanning regarding the above assesssment and plan. Patient instructions Patient Instructions So far, doing well on PD medicaitons and DBS. Would not change anything at this point. From an anxietry and depression standpoint, would agree with stahing away from celexxa. Not sure whyduloxetin benefit has beeen incomplete. Would suggest thtat w e try a higher dose (90 mg ) a day and assess in a month. If you're still not feeling well after that would advise switching to s venlafaxine or sertraline. . Orders No orders of the defined types were placed in this encounter. Medication changes: I am having Timbo Su maintain his carbidopa-levodopa, metFORMIN, meTOPROLOL, simvastatin, lisinopril, omeprazole, melatonin, cholecalciferol (Vitamin D3), benztropine, busPIRone, citalopram, acetaminophen, DULoxetine, and hydroCHLOROthiazide. Vishnu Hooper MD PhD [facility] documented in this encounter Miscellaneous Notes Assessment & Plan Note - Vishnu Hooper MD - 08/22/2018 2:17 AM ESTAssociated Problem(s): Parkinson's disease (Resolved 08/23/2020) Timbo Su is a 62 yo male with tremor, and bradykinesia that has responded well to PD medicationsand DBS. I would not change any thing at this point. From anxiety and depresson, would avoid celexa and would try a higher dose of duloxetine. He is not feeling any better would opt for venlafaxine or sertraline. documented in this encounter Plan of Treatment Upcoming Encounters Date Type Specialty Care Team Description 03/20/2022 Office Visit Neurology Vishnu Hooper MD [facility]UR[facility] DEPT. [place], [place] [address] (Wo rk) documented as of this encounter Visit Diagnoses Diagnosis Parkinson's disease Paralysis agitans documented in this encounter Care Teams Flavoring Oil Filterer Relationship Specialty Start Date End Date Griselda Stanley MD PCP - General 07/04/10 02/03/22 documented as of this encounter
--- OUTSIDE RECORDS SUMMARY | 2022-02-26 04:01 | XMS_ITS | Encounter Summary ---
:1955 Author Organization [place] [address] Care Team Providers Name Role Phone Griselda Stanley MD Primary Care Provider Encounter Details Date Type Department Care Team Description 12/18/2019 Orders Only Lab Fidel Prithcard MD [address] [address] [place] [address] [phone] Social History Tobacco Use Types Packs/Day Years [...] Visit Neurology Vishnu Hooper MD [facility] ER NEUROLOGY DEPT. [place], [place] [address] (Wo rk) documented as of this encounter Procedures Procedure Name Priority Date/Time Associated Diagnosis Comme nts COVID-19 PCR Routine 12/18/2019 9:45 PM Results f or this EDT procedure are i n the results section . documented in this encounter Results COVID-19 PCR (12/18/2019 9:45 PM EDT) [facility] Method Time Signature SARS-CoV-2 Not Detected [...] the instructions for use provided by the [employer] and additional guidance provided by CDC and FDA. Testing is performed in the [facility] within the Department of Path ology and Laboratory Medicine at [facility], cert ified under the Clinical Laboratory [...] fact sheets at the following FDA website: https://www.fda.gov/medical-devices/dmvxxfcmz-zrjdjzzvfq-aywlzej-devices/emergen vu-bex-ragnoarxzmgqil#kwyoy19prg SARS-Cov-2 RNA Source OUTREACH ASSISTANT Swab [facility] Specimen (Source) Anatomical Collection Method Collection Time Re ceived Time Location / / Volume Laterality Nasopharyngeal swab Other / Unknown 12/18/2019 9:45 (specimen) PM EDT 2:51 PM EDT Resulting Agency Comment Spec In Lab Fidel Carrasco MD MICROBIOLOGY - GENERAL ORDER [facility] Performing Organization Address City/State/ZIP Code Phon e Number [place] [phone] documented in this encounter Visit Diagnoses Not on filedocumented in this encounter Care Teams Engineering Administrator Relationship Specialty Start Date End Date Griselda Stanley MD PCP - General 07/04/10 02/03/22 documented as of this encounter
--- OUTSIDE RECORDS SUMMARY | 2022-02-26 04:01 | XMS_ITS | Encounter Summary ---
:1955 Author Organization [facility] [place] [address] Care Team Providers Name Role Phone Griselda Stanley MD Primary Care Provider Encounter Details Date Type Department Care Team Description 06/27/2017 [place] [facility] [place] Givens [place] [facility] [place] [address] NEUROLOGY DEPT [phone] [place] [id number] (Wo rk) Social History Tobacco Use Types [...] place to sleep or slept in a retirement (including now)? Sex Assigned at Date Recorded Not on file documented as of this encounter Miscellaneous Notes Telephone Encounter - Vern Givens MD - 06/27/2017 10:21 PM EST I was called by the of this patient. The patient had deep brain stimulation placement recently. Yesterday, the patient had a mechanical fall. He fell forward and caught himself with his hands. He had no head trauma or LOC with the fall. He did not hit his chest on the ground. Since then he has been very anxious that he has possibly hurt the device associated with the DBS. His incisions look good, no swelling or discharge. He is complaining of feeling anxious and now nauseous. His tremor is baseline, not increased. His balance and tone are also baseline. As he had no head trauma or direct trauma to the area associated with DBS I think it is highly unlikely that this fall could have resulted in any damage to the DBS components. I will forward this message to his neurosurgery clinic. His would like someone from the clinic to check in tomorrow when the office is open. documented in this encounter Plan of Treatment Upcoming Encounters Date Type Specialty Care Team Description 03/20/2022 Office Visit Neurology Vishnu Hooper MD [facility] ER NEUROLOGY DEPT. [place], [place] [address] (Wo rk) documented as of this encounter Visit Diagnoses Not on filedocumented in this encounter Care Teams Pantry Cook Relationship Specialty Start Date End Date Griselda Stanley MD PCP - General 07/04/10 02/03/22 documented as of this encounter
--- OUTSIDE RECORDS SUMMARY | 2022-02-26 04:01 | XMS_ITS | Encounter Summary ---
:1955 Author Organization [facility] [place] [address] Care Team Providers Name Role Phone Griselda Stanley MD Primary Care Provider Reason for Visit Reason Comments Medication Refill Encounter Details Date Type Department Care Team Description 11/29/2019 Refill Neurology at [facility] Vishnu Hooper [place] [address] NEUROLOGY DEPT. [phone] [place], [place] [address] (Wo rk) Social History Tobacco [...] 03/20/2022 Office Visit Neurology Vishnu Hooper MD [facility] NEUROLOGY DEPT. [place], [place] [address] (Wo rk) documented as of this encounter Visit Diagnoses Not on filedocumented in this encounter Care Teams Applied Psychology Teacher Relationship Specialty Start Date End Date Griselda Stanley MD PCP - General 07/04/10 02/03/22 documented as of this encounter
--- OUTSIDE RECORDS SUMMARY | 2022-02-26 04:01 | XMS_ITS | Encounter Summary ---
:1955 Author Organization [facility] [place] [address] Care Team Providers Name Role Phone Griselda Stanley MD Primary Care Provider Reason for Visit Reason Comments Chest Pain Dizziness Fatigue Encounter Details Date Type Department Care Team Description 03/31/2018 Emergency Emergency Department Bethel Han, [facility] [place] [address] Abdominal pain, Bessie Gillette MD [facility] [place] [address] unspecified abdominal [facility] [place] [address] Social History Tobacco Use Types Packs/Day [...] Sign Reading Time Taken Comments Blood Pressure 161/83 03/31/2018 9:30 PM EDT Pulse 65 03/31/2018 4:29 PM EDT Temperature 36.5 ??C (97.7 ??F) 03/31/2018 4:29 PM EDT Respiratory Rate 15 03/31/2018 9:30 PM EDT Oxygen Saturation 95% 03/31/2018 9:30 PM EDT Inhaled Oxygen Concentration - - Weight 102.1 kg (225 lb) 03/31/2018 4:29 PM EDT Height 185.4 cm (6' 1) 03/31/2018 4:29 PM EDT Body Mass Index 29.69 03/31/2018 4:29 PM EDT documented in this encounter Discharge Instructions Discharge InstructionsWrisaac, Casey Ribeiro MD - 03/31/2018 10:08 PM EDT You have been seen by a doctor in the emergency department today for abdominal pain and chest pain. Your lab work and imaging showed no evidence of any abnormalities requiring emergent intervention at this time. We recommend following up with your PCP for re-evaluation. We also recommend following up w ith the gastrointestinal service for an endoscopy. Please return to the ED if you experience any worsening pain, inability to stay hydrated, or any other concerning symptoms. documented in this encounter Medications at Time [...] times daily. documented as of this encounter ED Notes Stella Mai RN - 03/31/2018 10:24 PM EDT 1910; Report from JANNETTE Escoto. Care assumed. 1944; Dr. Han at bedside. 1999; In to greet patient, they aware we are awaiting CT scan. Denies needs. 2103; Patient to CT with [facility]. 2119; Patient denies needs, at bedside. 2143; Patient medicated as ordered, effects pending. 2212; IV no longer indicated, Discontinued tip intact as per policy/procedure, bleeding controlled, DSD in place; Patient tolerated well. 2214; Reviewed patient's discharge instructions and follow up as ordered by provider; changes to be made to medications and concerns and symptoms to return for discussed. Patient and verbalized their understanding. Des Sarabia LNA - 03/31/2018 9:04 PM EDT Transported patient to CT4 Casey Taylor MD - 03/31/2018 5:55 PM EDT Timbo Su is an 62 y.o. male who presents to the ED with: Chief Complaint Patient presents with ??? Chest Pain ??? Dizziness ??? Fatigue I saw this patient 04/01/2018 at ~ 12:42 AM HPI Timbo Su is a 62 y.o. male with a PMH significant for Parkinson's disease, DM, HTN, and HLD who presents to the Emergency Department with chest pain and abdominal pain. Patient states he has had a lower chest pain and epigastric abdominal pain for the past month. Patient's chest pain is not exertional. His abdominal pain is not worse with eating, and he has had no appetite change. He reports diarrhea and nausea as well. Patient also states he has had a headache since last (03/27/18). He had an appointment with his PCP last week for similar symptoms. He reports that he was started on Carafate and his buspirone was increased. These changes to his medications have not seemed to help. Patient in no acute distress on arrival. Review of Systems: Review of Systems Constitutional: Negative for appetite change, chills and fever. HENT: Negative for hearing loss. Eyes: Negative for visual disturbance. Respiratory: Positive for shortness of breath. Negative for cough. Cardiovascular: Positive for chest pain. Gastrointestinal: Positive for abdominal pain, diarrhea and nausea. Negative for constipation and vomiting. Genitourinary: Negative for difficulty urinating, dysuria and hematuria. Musculoskeletal: Negative for arthralgias. Skin: Negative for rash. Neurological: Positive for dizziness, light-headedness and headaches. Psychiatric/Behavioral: Positive for confusion. Patient Vitals for the past 8 hrs: BP Resp SpO2 03/31/18 2130 161/83 15 95 % 03/31/18 2100 156/76 18 95 % 03/31/18 2030 160/85 12 99 % 03/31/18 2000 134/78 13 99 % 03/31/18 1930 146/72 14 94 % 03/31/18 1900 157/87 15 97 % 03/31/18 1830 149/80 14 96 % 03/31/18 1800 147/86 - 94 % 03/31/18 1730 150/80 - 94 % 03/31/18 1700 144/84 - 96 % Physical Exam: Physical Exam Constitutional: He is oriented to person, place, and time. He appears well- developed and well-nourished. No distress. HENT: Head: Normocephalic and atraumatic. Eyes: EOM are normal. Pupils are equal, round, and reactive to light. Cardiovascular: Normal rate, regular rhythm and normal heart sounds. Exam reveals no gallop and no friction rub. No murmur heard. Pulmonary/Chest: Effort normal and breath sounds normal. No stridor. No respiratory distress. He hasno wheezes. He has no rales. Abdominal: Soft. He exhibits no distension. There is tenderness in the epigastric area, left upper quadrant and left lower quadrant. There is no guarding. Musculoskeletal: He exhibits no edema. Neurological: He is alert and oriented to person, place, and time. Skin: Skin is warm and dry. Psychiatric: His behavior is normal. His affect is blunt. Nursing note and vitals reviewed. ED Course: - Patient was evaluated and discussed with Dr. Han - Medications, allergies and past medical history reviewed ED Course: ED Course Casey Taylor Documentation Value Comment Time WBC: (!) 10.5 (Reviewed) 03/31 1900 Hemoglobin: 14.8 (Reviewed) 03/31 1900 Platelets: (!) 142 (Reviewed) 03/31 1900 Glucose Lvl: 134 (Reviewed) 03/31 1900 BUN: 19 (Reviewed) 03/31 1900 Creatinine: 0.88 (Reviewed) 03/31 1900 Potassium: 3.8 (Reviewed) 03/31 1900 AST: 27 (Reviewed) 03/31 1900 ALT: 20 (Reviewed) 03/31 1900 Alk Phos: 79 (Reviewed) 03/31 1900 Lipase: 35 (Reviewed) 03/31 1900 Blood UA: Negative (Reviewed) 03/31 1955 Nitrite UA: Negative (Reviewed) 03/31 1955 Leukocytes UA: Negative (Reviewed) 03/31 1955 XR Chest PA & Lateral (Generic) No acute cardiopulmonary disease. 03/[address] Abdomen & Pelvis w Contrast Scattered colonic diverticula without diverticulitis. No evidenceof colitis or other acute abdominal process. 03/31 2148 Troponin-T: <0.01 (Reviewed) 04/01 42 BMX solution (diphenhydramine, aluminum-magnesium hydroxide with simethicone/lidocaine) given Assessment and Plan: MDM: 62 y.o. male who presents for chest pain and abdominal pain. Patient's physical exam showed tenderness in his left lower, left upper, epigastric regions of his abdomen. The rest of his exam was unremarkable. Pt's troponin was negative, and his EKG showed no evidence of acute ischemia. Patient's WBC was 10.5. His other lab work showed no signs pancreatitis, hepatitis or urinary tract infection. CXR showed no acute cardiopulmonary disease. Pt remained tender, and a CT abdomen and pelvis as performed. It showed no evidence of diverticulitis, colitis, or any other acute abdominal processes. Patient is given BMX solution for worsening reflux symptoms, which helped relieve the symptoms. Discussion was had with the patient regarding his lab and imaging results. We recommended that he follow-up withhis PCP for reevaluation. Patient states he is already been evaluated by gastrointestinal service near their home, and they are awaiting an EGD at this time. Patient's questions were answered, and he was discharged home. Return precautions were verbally discussed with the patient. he expressed understanding that he could come back to the ED at any time and agreed to the follow-up plan. Plan: - Discharge home - Follow up with PCP for re-evaluation - Follow up with gastrointestinal service for EGD - Return precautions were discussed with the pt Casey Taylor MD Resident 04/01/18 0045 Associated attestation - Ashvin Han DO - 04/02/2018 9:10 AM EDT ED ATTENDING ATTESTATION The patient was seen in conjunction with Dr. Taylor, the resident physician. I have independently performed the melton portions of the history and physical exam. I have personally reviewed nursing notes, vital signs, and diagnostic studies including labs, imaging studies and EKGs. I have discussed the details of the case with the resident and agree with the assessment and plan as described in the resident note unless stated differently in my separate note. Patient is a 62-year-old male presenting to the emergency department with upper abdominal discomfortradiating to the low chest. Patient describes it as a piece of hot cold sitting in his stomach and pain is slightly more to the left than the right. Patient has been started on omeprazole and Carafate without any improvement in symptoms over the past week. Here in the emergency department the patient states his chest pain is really abdominal pain. On my exam he is moderately tender in the epigastric region. Physical exam is otherwise at his baseline without any cranial nerve deficits and normal strength and sensation in his upper and lower extremities from the patient's baseline. Given the patient's lack of symptoms resolution a CT scan of the abdomen and pelvis was ordered and returned negative for bowel pathology, pancreatitis, abscess or perforation. At this time I have a low suspicion for cardiac etiology of the patient's abdominal pain given his moderate tenderness in the belly. I have considered ACS, CHF but feel these are clinically unlikely at this time. Patient will follow up with his primary care doctor within the next week for reevaluation. Strict return precautions discussed in detail and all questions answered bedside prior to discharge. documented in this encounter Miscellaneous Notes ED Triage - Stella Mai RN - 03/31/2018 4:29 PM EDT Patient presents to the ED today with visitor for complaint of feeling under the weather for the last month. Patient endorses a frontal headache, it's a lot of pressure, stomach burning (patient awaiting diagnostic testing as he is being followed by provider), and numbness in fingers on both of his hands. These symptoms have been ongoing. When assessed regarding chest pain or shortness of breath,patient stated no. Though his visitor endorses that patient called her home from work due to feelingdizzy and experiencing chest pain. Patient with history of Parkinson's with deep brain simulator, slow shuffling gait. PWD, NAD, RRR even and unlabored, speaking in logical sentences. Awake and alert. documented in this encounter Plan of Treatment Upcoming Encounters Date Type Specialty Care Team Description 03/20/2022 Office Visit Neurology Vishnu Hooper MD [facility] ER NEUROLOGY DEPT. [place], [place] [address] (Wo rk) documented as of this encounter Procedures Procedure Name Priority Date/Time Associated Comments Diagnosis CT ABDOMEN AND STAT 03/31/2018 8:47 PM Results for this PELVIS W CONTRAST EDT procedure are in the results section. URINALYSIS WITH STAT 03/31/2018 7:08 PM Result s for this REFLEX CULTURE EDT procedure are in the results section. XR CHEST PA AND STAT 03/31/2018 7:03 PM Result s for this LATERAL EDT procedure are i n the results section. HEMOGRAM STAT 03/31/2018 6:20 PM Results f or this EDT procedure are i n the results section. DIFFERENTIAL, STAT 03/31/2018 6:20 PM Results for this AUTOMATED EDT procedure are i n the results section. GOLD TUBE HOLD STAT 03/31/2018 6:20 PM Results for this EDT procedure are i n the results section. BLUE TUBE HOLD STAT 03/31/2018 6:20 PM Results for this EDT procedure are i n the results section. CBC (WITH DIFF) STAT 03/31/2018 6:20 PM EDT TROPONIN STAT 03/31/2018 6:20 PM Results f or this EDT procedure are i n the results section. LIPASE STAT 03/31/2018 6:20 PM Results f or this EDT procedure are i n the results section. HEPATIC FUNCTION STAT 03/31/2018 6:20 PM Resul ts for this PANEL EDT procedure are i n the results section. BASIC METABOLIC STAT 03/31/2018 6:20 PM Result s for this PANEL (NON-FASTING) EDT procedur e are in the results section. EKG 12-LEAD Routine 03/31/2018 4:57 PM Results f or this EDT procedure are i n the results section. EKG 12-LEAD STAT 03/31/2018 4:36 PM Results f or this EDT procedure are i n the results section. documented in this encounter Results CT Abdomen & Pelvis w Contrast (03/31/2018 8:47 PM EDT) Anatomical Region Laterality Modality Abdomen, Pelvis Computed Tomography Specimen (Source) Anatomical Location Collection Method / Collectio n Time Received Time / Laterality Volume Impressions 03/31/2018 9:39 PM EDT Scattered colonic diverticula without diverticulitis. No evidence of colitis or other acute abdominal process. Narrative 03/31/2018 9:39 PM EDT EXAMINATION: ??CT ABDOMEN AND PELVIS W CONTRAST CLINICAL HISTORY: ??worsening of diffuse abdominal pain - possible diverticulitis or colitis TECHNIQUE: Helical CT of the abdomen and pelvis was performed following the intravenous administration of contrast. 117 cc of Omnipaque 350 was given. Oral contrast was not administered. COMPARISON: ??Prior CTs, Most recent fro m July 10, 2017 FINDINGS: Lower chest: Minimal dependent atelectas is. Liver: Mild hepatomegaly and diffuse low -attenuation compatible with diffuse hepatic steatosis. Stable small cyst at the inferior aspect of the right hepatic lobe. Bile ducts: No intra or extrahepatic ruby e duct dilation. Gallbladder: Status post cholecystectomy . Pancreas: Normal attenuation. No duct di lation. Spleen: Normal. Adrenals: Normal. Kidneys: Symmetric enhancement. Stable s imple cyst at the lower left parapelvic region. No hydronephrosis. Vasculature: Mild atherosclerosis, no an eurysm. Lymph Nodes: No lymphadenopathy.. Bowel: The stomach and small bowel are d ecompressed. Normal appendix. Scattered colonic diverticula without diverticulit is. No appreciable wall thickening or surrounding inflammatory change. Peritoneum and mesentery: No free air or free fluid. Abdominal wall: There is a 2.3 cm mildly hypodense nodule just below the skin surface in the anterior pubic region, li lisa a sebaceous cyst. Bilateral fat-containing inguinal hernias are note d. Urinary Bladder: Normal. Reproductive organs: Punctate calcificat ion within a normal sized prostate gland. Osseous structures: Unchanged straighten ing of the normal lumbar lordosis with advanced multilevel degenerative changes of the lower thoracic and lumbar spine, grossly unchanged. Additional posttrauma tic deformities of the left transverse processes and posterior left 12th rib ar e noted. Procedure Note Daniela Barone MD - 03/31/2018 EXAMINATION: CT ABDOMEN AND PELVIS W CON TRAST CLINICAL HISTORY: worsening of diffuse a bdominal pain - possible diverticulitis or colitis TECHNIQUE: Helical CT of the abdomen and pelvis was performed following the intravenous administration of contrast. 117 cc of Omnipaque 350 was given. Oral contrast was not administered. COMPARISON: Prior CTs, Most recent from July 10, 2017 FINDINGS: Lower chest: Minimal dependent atelectas is. Liver: Mild hepatomegaly and diffuse low -attenuation compatible with diffuse hepatic steatosis. Stable small cyst at the inferior aspect of the right hepatic lobe. Bile ducts: No intra or extrahepatic ruby e duct dilation. Gallbladder: Status post cholecystectomy . Pancreas: Normal attenuation. No duct di lation. Spleen: Normal. Adrenals: Normal. Kidneys: Symmetric enhancement. Stable s imple cyst at the lower left parapelvic region. No hydronephrosis. Vasculature: Mild atherosclerosis, no an eurysm. Lymph Nodes: No lymphadenopathy.. Bowel: The stomach and small bowel are d ecompressed. Normal appendix. Scattered colonic diverticula without diverticulit is. No appreciable wall thickening or surrounding inflammatory change. Peritoneum and mesentery: No free air or free fluid. Abdominal wall: There is a 2.3 cm mildly hypodense nodule just below the skin surface in the anterior pubic region, li lisa a sebaceous cyst. Bilateral fat-containing inguinal hernias are note d. Urinary Bladder: Normal. Reproductive organs: Punctate calcificat ion within a normal sized prostate gland. Osseous structures: Unchanged straighten ing of the normal lumbar lordosis with advanced multilevel degenerative changes of the lower thoracic and lumbar spine, grossly unchanged. Additional posttrauma tic deformities of the left transverse processes and posterior left 12th rib ar e noted. IMPRESSION Scattered colonic diverticula without di verticulitis. No evidence of colitis or other acute abdominal process. Ashvin Han DO IMG CT ORDERABLES (ABNORMAL) Urinalysis with reflex Culture (03/31/2018 7:08 PM EDT) [facility] gist Method Time Signature Glucose UA Negative Negative [facility] mg/dL [facility] Protein UA Negative Negative [facility] mg/dL [facility] Bilirubin UA Negative Negative [facility] mg/dL [facility] Comment: Clinical correlation required for positi ve Urine Bilirubin results as false positive may occur with some drugs and d rug related products. If a false positive is suspected a serum total bili kapadia should be considered if clinically indicated. Urobilinogen UA Normal Normal mg/dL [facility] pH UA 5.0 5.0 - 8.0 [facility] Blood UA Negative Negative mg/dL [facility] Ketones UA 5 (A) Negative mg/dL [facility] Nitrite UA Negative Negative [facility] Leukocytes UA Negative Negative [facility] Appearance UA Clear Clear [facility] Spec [place] UA 1.023 1.002 - 1.030 [facility] Color UA Yellow Yellow [facility] Culture Reflexed No [facility] Specimen (Source) Anatomical Collection Method Collection Time Re ceived Time Location / / Volume Laterality Urine specimen 03/31/2018 7:08 03/31/2018 7:15 obtained by clean PM EDT PM EDT catch procedure (specimen) Resulting Agency Comment Spec In Lab Ashvin Han DO URINE ORDERABLES Performing Organization Address City/State/[place] [address] XR Chest PA & Lateral (Generic) (03/31/2018 7:03 PM EDT) Anatomical Region Laterality Modality Chest N/A Digital Radiography Specimen (Source) Anatomical Location Collection Method / Collectio n Time Received Time / Laterality Volume Impressions 03/31/2018 7:50 PM EDT No acute cardiopulmonary disease. Narrative 03/31/2018 7:50 PM EDT EXAMINATION: XR CHEST PA AND LATERAL (GENERIC) CLINICAL HISTORY: chest pain - possible pneumonia TECHNIQUE: Two-view chest COMPARISON: 07/29/2012 frontal chest FINDINGS: Cardiomediastinal silhouettes normal. Th e pulmonary vasculature is normal. There are no pleural effusions or airspace dis ease. Degenerative change thoracic spine noted anteriorly. The pulmonary vasculat ure is normal. These wires project over the exam. No pneumothorax. Procedure Note Demetrio Hoang MD - 03/31/2018Format ting of this note might be different from the original. EXAMINATION: XR CHEST PA AND LATERAL (GE NERIC) CLINICAL HISTORY: chest pain - possible pneumonia TECHNIQUE: Two-view chest COMPARISON: 07/29/2012 frontal chest FINDINGS: Cardiomediastinal silhouettes normal. Th e pulmonary vasculature is normal. There are no pleural effusions or airspace dis ease. Degenerative change thoracic spine noted anteriorly. The pulmonary vasculat ure is normal. These wires project over the exam. No pneumothorax. IMPRESSION No acute cardiopulmonary disease. Ashvin VALENTIN DX ORDERABLES Gold Tube HOLD (03/31/2018 6:20 PM EDT) athologist Signature Gold Hold Sample in [facility]. [facility] Specimen Anatomical Collection Method Collection Time Receive d Time (Source) Location / / Volume Laterality Blood specimen Venous Draw / 03/31/2018 6:20 PM 2017 6:31 (specimen) Unknown EDT PM EDT Casey Taylor MD CHEMISTRY ORDERABLES Performing Organization Address City/State/ZIP Code Phon [place] [facility] [place] [address] Blue Tube HOLD (03/31/2018 6:20 PM EDT) athologist Signature Blue Hold Sample in [facility]. [facility] Specimen Anatomical Collection Method Collection Time Receive d Time (Source) Location / / Volume Laterality Blood specimen Venous Draw / 03/31/2018 6:20 PM 2017 6:32 (specimen) Unknown EDT PM EDT Casey Taylor MD HEMATOLOGY ORDERABLES Performing Organization Address City/State/[place] [address] (ABNORMAL) Differential, Automated (03/31/2018 6:20 PM EDT) [facility] Method Time Signature Neutrophils % 55.0 % [facility] Neutr Abs (ANC) 5.79 1.70 - [facility] 6.10 [facility] x10(3)/[facility] LAB[facility]ORY Lymphocytes % 34.8 % [facility] Lymphocytes Abs 3.6 (H) 0.9 - 3.2 [facility] x10(3)/[facility] LABORATORY Monocytes % 8.6 % [facility] Monocyte Abs 0.9 0.3 - 0.9 [facility] x10(3)/[facility] LABORATORY Eosinophils % 1.0 % [facility] Eosinophils Abs 0.1 0.0 - 0.4 [facility] x10(3)/[facility] LABORATORY Basophils % 0.3 % [facility] Basophils Abs 0.0 0.0 - 0.1 [facility] x10(3)/[facility] LABORATORY Immature Gran % 0.30 % [facility] Comment: Immature granulocytes(IG's)percentage an d absolute count will include metamyelocytes, myelocytes, and promyelo cytes. Blood smears from CBCs yielding IG's will be scanned manually for concor dance. If this scan disagrees with the automated IG or if promyelocytes are not ed, a manual differential will be performed. Anneliese Gran Abs 0.03 0.00 - 0.04 x10(3)/[facility] Specimen Anatomical Collection Method Collection Time Receive d Time (Source) Location / / Volume Laterality Blood specimen 03/31/2018 6:20 PM 018 6:30 (specimen) EDT PM EDT Resulting Agency Comment Spec In Lab Casey Taylor MD HEMATOLOGY ORDERABLES Performing Organization Address City/State/[place] [address] (ABNORMAL) Hemogram (03/31/2018 6:20 PM EDT) Patholo gist Method Time Signature WBC 10.5 (H) 4.0 - 9.5 [facility] x10(3)/[facility] LABORATORY RBC 4.78 4.58 - [facility] 5.54 [facility] x10(6)/[facility] LAB[facility]ATORY Hemoglobin 14.8 13.7 - [facility] 16.5 gm/dL [facility] Hematocrit 41.7 40.5 - [facility] 48.5 % [facility] MCV 87.2 82.9 - [facility] 93.1 [facility] LAB[facility]ORY MCH 31.0 27.5 - [facility] 32.1 pg [facility] MCHC 35.5 32.0 - [facility] 35.7 gm/dL [facility] Platelets 142 (L) 145 - 357 [facility] LAB[facility]ORY RDWSD 40.2 36.0 - [facility] 45.0 [facility] LAB[facility]ORY RDWCV 12.6 11.4 - [facility] 13.8 % [facility] MPV 11.6 7.6 - 12.9 [facility] LAB[facility]ORY nRBC % Auto 0.2 % [facility] nRBC Abs Auto 0.020 (H) 0.000 - [facility] 0.000 [facility] x10(3)/[facility] LABORATORY Specimen Anatomical Collection Method Collection Time Receive d Time (Source) Location / / Volume Laterality Blood specimen 03/31/2018 6:20 PM 018 6:30 (specimen) EDT PM EDT Resulting Agency Comment Spec In Lab Casey Taylor MD HEMATOLOGY ORDERABLES Performing Organization Address City/State/[place] [address] Troponin T (03/31/2018 6:20 PM EDT) P athologist Signature Troponin-T <0.01 0.00 - 0.00 [facility] ng/mL [facility] Comment: The 99th percentile for Troponin T is le ss than 0.01 ng/mL, any detectable cTnT concentration using this assay should be considered elevated. According to the third universal definit ion of myocardial infarction the following criteria with a clinical prese ntation consistent with acute myocardial ischemia meets the diagnosis for a myocardial infarction (MA). Detection of a rise and/or fall of cTnT, with at least one value greater than the 99th percentile (> or = 0.01) and wi th at least one of the following ?? Symptoms of ischemia ?? New or presumed new significant ST-se gment-T wave (ST-T) changes or new left bundle branch block (LBBB) ?? Development of pathologic Q waves in the ECG ?? Imaging evidence of new loss of viabl e myocardium or new regional wall motion abnormality ?? Identification of an intracoronary th rombus by angiography or autopsy Samples for cTnT testing should be obtai andrés serially upon first assessment and again 3 to 6 hours later. If the clinica l suspicion is high and previous samples have been negative an additional sample may be indicated. Reference: Third [place] Definition of Myocardial Infarction. Journal of the [place] [employer] 2012;60:1581-98 Specimen Anatomical Collection Method Collection Time Receive d Time (Source) Location / / Volume Laterality Blood specimen 03/31/2018 6:20 PM 018 6:30 (specimen) EDT PM EDT Resulting Agency Comment Spec In Lab Ashvin P Guille DO CHEMISTRY ORDERABLES Performing Organization Address City/[facility]/[place] [address] Lipase (03/31/2018 6:20 PM EDT) athologist Signature Lipase 35 0 - 60 [facility] unit/L [facility] Specimen Anatomical Collection Method Collection Time Receive d Time (Source) Location / / Volume Laterality Blood specimen 03/31/2018 6:20 PM 018 6:30 (specimen) EDT PM EDT Resulting Agency Comment Spec In Lab Ashvin P Guille DO CHEMISTRY ORDERABLES Performing Organization Address City/[facility]/[place] [address] Hepatic Function Panel (03/31/2018 6:20 PM EDT) athologist Signature Total Protein 7.3 6.1 - 8.0 [facility] gm/dL [facility] Albumin 4.5 3.2 - 5.2 [facility] gm/dL [facility] AST 27 0 - 39 [facility] unit/L [facility] ALT 20 0 - [facility] unit/L [facility] Alk Phos 79 40 - 120 [facility] Total 0.7 0.2 - 1.3 [facility] Bilirubin mg/dL [facility] Bili, Direct 0.1 0.0 - 0.3 [facility] mg/dL [facility] Specimen Anatomical Collection Method Collection Time Receive d Time (Source) Location / / Volume Laterality Blood specimen 03/31/2018 6:20 PM 018 6:30 (specimen) EDT PM EDT Resulting Agency Comment Spec In Lab Ashvin aHn DO CHEMISTRY ORDERABLES Performing Organization Address City/State/[place] [address] Basic Metabolic Panel (non-fasting) (03/31/2018 6:20 PM EDT) athologist [facility] Glucose Lvl 134 65 - 199 [facility] mg[facility]dL [facility] Comment: Diabetes: >=200 mg/dL plus symp toms BUN 19 10 - 20 mg/dL [facility] Creatinine 0.88 0.80 - 1.50 mg/dL [facility] Sodium 143 135 - 145 mmol/L [facility] Potassium 3.8 3.5 - 5.0 mmol/L [facility] Comment: Please note: ??Patients with WBC >100,00 0 may have falsely elevated Potassium levels. ??For accurate Potassium quantif ication in these patients send serum separator tube (gold top) for subsequent determinations. ??Contact the Clinical Chemistry Laboratory if there are any qu estions. Chloride 100 98 - 107 mmol/L [facility] CO2 29 22 - 31 mmol/L [facility] Anion Gap 14 5 - 15 mmol/L [facility] Calcium 9.6 8.5 - 10.5 mg/dL [facility] Estimated GFR 92 >=60 mL/min/1.73 m?? [facility] Comment: The eGFR was calculated using the CKD-EP I equation. As with all creatinine based estimates of kidney function, eGFR values calculated with the CKD-EPI equation are not accurate in patients wi th acute kidney failure, extremes of body mass or the acutely ill. http://PROnoise/[facility] TULSAnkf eGFR 107 >=60 mL/min/1.73 m?? [facility] Comment: The eGFR was calculated using the CKD-EP I equation. As with all creatinine based estimates of kidney function, eGFR values calculated with the CKD-EPI equation are not accurate in patients wi th acute kidney failure, extremes of body mass or the acutely ill. http://PROnoise/[facility] TULSAnkf Specimen Anatomical Collection Method Collection Time Receive d Time (Source) Location / / Volume Laterality Blood specimen 03/31/2018 6:20 PM 018 6:30 (specimen) EDT PM EDT Resulting Agency Comment Spec In Lab Ashvin Han DO CHEMISTRY ORDERABLES Performing Organization Address City/State/[place] [address] EKG 12 Lead (03/31/2018 4:57 PM EDT) Component Value Ref Range Test Analysis Performed Pathologis t Method Time At Signature Ventricular rate 63 BPM MUSE SYSTEM Atrial Rate 63 BPM MUSE SYSTEM P-R Interval 202 ms MUSE SYSTEM QRS Duration 96 ms MUSE SYSTEM Q-T Interval 426 ms MUSE SYSTEM QTC Calculated 435 ms MUSE SYSTEM (Bezet) Calculated P Prue 75 degrees MUSE SYSTEM Calculated R Prue 11 degrees MUSE SYSTEM Calculated T Prue -26 degrees MUSE SYSTEM INTERPRETATION Normal sinus rhythm MUSE SYSTEM Normal ECG ST no longer depressed in Anterolateral leads QT has shortened Confirmed by MD ERLINDA, ZOË ([id number]) on 04/01/2018 9:53:36 AM Specimen Anatomical Collection Method Collection Time Receive d Time (Source) Location / / Volume Laterality 03/31/2018 4:57 PM 8 9:53 EDT AM EDT Unknown ECG ORDERABLES Performing Organization Address City/State/ZIP Code Phon e Number MUSE SYSTEM EKG 12 Lead (03/31/2018 4:36 PM EDT) Component Value Ref Range Test Analysis Performed Pathologis t Method Time At Signature Ventricular rate 65 BPM MUSE SYSTEM Atrial Rate 0 BPM MUSE SYSTEM QRS Duration 112 ms MUSE SYSTEM Q-T Interval 470 ms MUSE SYSTEM QTC Calculated 488 ms MUSE SYSTEM (Bezet) Calculated R Prue -170 degrees MUSE SYSTEM Calculated T Prue -178 degrees MUSE SYSTEM INTERPRETATION Electrical interference arleth fact precludes comprehensive evaluation MUSE SYSTEM Suggest repeat EKG Regular narrow QRS rhythm - ??Probable Normal sinus rhythm Abnormal ECG No previous ECGs available Confirmed by MD ERLINDA, ZOË ([id number]) on 04/01/2018 9:53:12 AM Specimen Anatomical Collection Method Collection Time Receive d Time (Source) Location / / Volume Laterality 03/31/2018 4:36 PM 8 9:53 EDT AM EDT Narrative This result has an attachment that is no t available. Ashvin Quintin Bondscy ECG ORDERABLES Performing Organization Address City/[facility]/ZIP Code Phon e Number MUSE SYSTEM documented in this encounter Visit Diagnoses Diagnosis Abdominal pain, unspecified abdominal lo cation documented in this encounter Administered Medications Inactive Administered Medications - up to 3 most recent administrations Medication Order MAR Action Action Date Dose Rate Site diphenhydrAMINE/aluminum-magnesium Given 03/31/2018 9:44 PM EDT 5 mLs hydroxide with simethicone/lidocaine (BMX) oral suspension 5 mL, Oral, ONCE, 1 dose, On Sat03/31/18 at 2142, Each 5 mL contains equal parts of diphenhydramine (BENADYL), aluminum-magnesium hydroxide w/ simethicone (MAALOX), and lidocaine (XYLOCAINE) , STAT iohexol (OMNIPAQUE) 350 mg/mL solution 0-200 Given 8:47 PM EDT 117 mLs mL 0-200 mL, Intravenous, ONCE PRN, 1 dose, Starting on Sat03/31/18 at 2047, Until Sat03/31/18 at 2047, Per Protocol, Warning Vesicant/Irritant Medication , Radiology Contrast, Routine documented in this encounter Active and Recently Administered Medications Times are shown in EDT. Scheduled Medication Order 03/29/2018 03/30/2018 03/31/2018 diphenhydrAMINE/aluminum-magnesium hydro xide with simethicone/lidocaine (BMX) oral suspension (COMPLETED) 2143 (Given - Provider: Stella Mai, RN) 5 mL, Oral, ONCE, 1 dose, 03/31/18 at 2142, Each 5 mL contains equal parts of diphenhydramine (BENADYL), aluminum-magnesium hydroxide w/ simethicone (MAALOX), and lidocaine (XYLOCAINE) , STAT PRN Medication Order 03/29/2018 03/30/2018 03/31/2018 iohexol (OMNIPAQUE) 350 mg/mL solution 0-200 mL (COMPLETED) 2046 (Given - Provider: Julián Stringer) 0-200 mL, Intravenous, ONCE PRN, 1 dose, Starting Sat03/31/18 at 2047, Until Sat03/31/18 at 204, Per Protocol, Warning Vesicant/Irritant Medication , Radiology Contrast, Routine documented in this encounter Care Teams Solids Control Technician Relationship Specialty Start Date End Date Griselda Stanley MD PCP - General 07/04/10 02/03/22 documented as of this encounter
--- OUTSIDE RECORDS SUMMARY | 2022-02-26 04:01 | XMS_ITS | Encounter Summary ---
:1955 Author Organization [facility] [place] [address] Care Team Providers Name Role Phone Griselda Stanley MD Primary Care Provider Encounter Details Date Type Department Care Team Description 11/05/2017 Office Visit Neurosurgery at [facility] Geeta Rees S/Quintin deep brain [facility] L, [place] [address] Social History Tobacco Use Types Packs/Day [...] encounter Progress Notes Geeta Rees RN - 11/05/2017 3:00 PM EDT Samuel is a 62 year old man diagnosed with Parkinson's disease [...] in NAD. His speech is clear but he reports it is a little slurred at times. He SHAW well with very little rigidity today. Samuel states that he has felt more relaxed since the amplitude was increased 3 days ago. His ambulationis steady without a cane. Samuel states he is able to put his watch on and coat on without assistance which he couldn't do before. He reports he has hardly any dyskinesia. Samuel has a slight intermittent left hand tremor which is worse in the evening. I decreased the amplitude on the left to see if his speech would improve which he felt it did. I settwo new groups with different electrode settings on the right. When I increased the amplitude he c/ovisual changes and pressure in his head. I gave him the option of trying the other electrodes with alow amplitude that he can gradually increase as he did in the current setting. I advised him to keepa log if he chooses to use the other groups to see which setting works best in controlling his symptoms. He may also stay in the current group (A) and continue to increase the amplitude to try to control the LUE tremor. I showed Samuel and Ana Lilia how to use the patient mainframe programmer to change the groups which Ana Lilia feels comfortable with. They are traveling to [place] soon for 10 days so he may wait to try the other groups until after he returns. Group B: case + 9 - Group C: case + 8 - LEFT? Electrodes ?? Amplitude ?? Width ?? Rate ?? Original settings ?? Case + 1 - 3.8 90 150 ? Final settings ?? Case + 1 -?? 3.5 90 ?? 150 ? RIGHT? Electrodes ?? Amplitude ?? Width ?? Rate ?? Original settings ?? 9 - 10 + 3.8 90 150 ? Final settings ?? 9 - ??10 + 3.8 90 ?? 150 ?? I will see Samuel prn. He knows to call with questions or concerns. A total of 60 minutes was spent in assessment, DBS programming, education, and evaluation. documented in this encounter Plan of Treatment Upcoming Encounters Date Type Specialty Care Team Description 03/20/2022 Office Visit Neurology Vishnu Hooper MD [facility] NEUROLOGY DEPT. [place], [place] [address] (Wo rk) documented as of this encounter Visit Diagnoses Diagnosis S/P deep brain stimulator placement documented in this encounter Care Teams Automotive Wholesale Parts Advisor Relationship Specialty Start Date End Date Griselda Stanley MD PCP - General 07/04/10 02/03/22 documented as of this encounter
--- OUTSIDE RECORDS SUMMARY | 2022-02-26 04:01 | XMS_ITS | Encounter Summary ---
:1955 Author Organization [facility] [place] [address] Care Team Providers Name Role Phone Griselda Stanley MD Primary Care Provider Reason for Visit Reason Onset Date Comments Other 01/23/2019 Encounter Details Date Type Department Care Team Description 01/23/2019 Telephone Neurology at [facility] Vishnu Hooper MD Other [place] [address] NEUROLOGY DEPT. [phone] [place], [place] [address] (Wo rk) Social History Tobacco [...] Telephone Encounter - Roxanna Monreal RN - 01/23/2019 5:11 PM EDT Discussed with Dr Hooper, would have pt stop the Cogentin, pt currently taking 0.5 tabs daily, could also reduce Carbidopa-Levodopa to TID if no improvement with discontinuation of Cogentin Discussed with , agreeable with plan. She will call Saturday or Saturday with update Telephone Encounter - Caridad Irizarry - 01/23/2019 4:09 PM EDT Pts called back. States that the pts symptoms aren't totally new but they have gotten worse. States that the pt had seen his PCP this week and suggested speaking to Neurology team. Telephone Encounter - Roxanna Monreal RN - 01/23/2019 3:52 PM EDT Call returned to , message left on voicemail instructing that if symptoms are new that pt should see PCP or be seen in urgent care. Requested call back Telephone Encounter - Caridad Irizarry - 01/23/2019 12:34 PM EDT Clinical Transportation Engineer Message Caller: Ana Lilia If not Pt / Relation to pt: Call back Number: [phone] Reason for call: Side effects from Entacapone Message/information for the nurse: States the pt has been having a lot of confusion, hallucinations,and been sleeping a lot since starting medication. Would like to discuss. Disposition of Call ?? Routine Message sent to the Nurse documented in this encounter Plan of Treatment Upcoming Encounters Date Type Specialty Care Team Description 03/20/2022 Office Visit Neurology Vishnu Hooper MD [facility] NEUROLOGY DEPT. [place], [place] [address] (Wo rk) documented as of this encounter Visit Diagnoses Not on filedocumented in this encounter Care Teams Haulpak Driver Relationship Specialty Start Date End Date Griselda Stanley MD PCP - General 07/04/10 02/03/22 documented as of this encounter
--- OUTSIDE RECORDS SUMMARY | 2022-02-26 04:01 | XMS_ITS | Encounter Summary ---
:1955 Author Organization [place] [address] Care Team Providers Name Role Phone Griselda [...] Expiration Date Visits Requ ested Visits Authorized [id number] 1 1 Encounter Details Date Type Department Care Team Description 06/17/2017 [facility] Sapp, @[place] MPLANT[facility] OF [facility] [place] SANTIAGO NEUROSTIMULATOR [facility] GAY CTRODE-LISBETH (WRVU 33.03) [facility] NEUROSURGERY [address] [address] [phone] Social History Tobacco Use Types Packs/Day Years [...] Sign Reading Time Taken Comments Blood Pressure 142/82 06/17/2017 11:50 AM EST Pulse 73 06/17/2017 11:50 AM EST Temperature 36.5 ??C (97.7 ??F) 06/17/2017 11:50 AM EST Respiratory Rate 14 06/17/2017 11:50 AM EST Oxygen Saturation 97% 06/17/2017 11:50 AM EST Inhaled Oxygen Concentration - - Weight 102.1 kg (225 lb) 06/17/2017 6:40 AM EST Height 185.4 cm (6' 1) [...] antiplatelet, anticoagulant, and non-steroidal anti-inflammatory (NSAIDs)drugs. Common bwgn-tje-fkqfugj medications which should be avoided include Aspirin, [...] to pass. These medications can be obtained qlnq-qim-clvhsyd and their use is recommended on an [...] 10:00 AM Geeta Rees RN [facility] [place] [phone] 07/25/2017 9:30 AM Geeta Rees RN [facility] [place] [phone] 07/25/2017 10:30 AM Fidel Han PA; Randall Sapp MD [facility] [place] [phone] 09/10/2017 9:00 AM Vishnu Hooper MD [facility] [place] [phone] Electronically Signed By: JOSE Martines 06/18/2017 documented [...] antiplatelet, anticoagulant, and non-steroidal anti-inflammatory (NSAIDs)drugs. Common hofi-fns-gzcabdj medications which should be avoided include Aspirin, [...] to pass. These medications can be obtained guow-uxv-divazkg and their use is recommended on an [...] AM EST NEUROSURGERY PROGRESS NOTE Timbo Su [id number] 1955 ID: [id number] y.o. gentleman with parkinson's [...] midline MOTOR: RUE:5/5 LUE:5/5 RLE: 5/5 LLE: 5/ No pronator drift LT sensation intact x [...] until good PO. Monitor lytes. PLEASE PAGE [phone] WITH QUESTIONS NEUROLOGIC: brain compression GI: malnutrition [...] pt documented in this encounter H&P Notes Wolffing, Larry B, MD - 06/17/2017 11:14 AM EST Critical [...] 4) performed by Randall Sapp MD at [facility] Current Medications: ??? BUpivacaine-EPINEPHrine 0.5 %-1:200,000 injection [...] and P Timbo Su was seen in [facility]. He is here for implantation of DBS [...] - 06/17/2017 10:37 AM EST NEURODIAGNOSTIC LABORATORY [facility] INTRAOPERATIVE MONITORING REPORT Name: Timbo Su : [...] worse over the past year. CPT Codes: 89035 (ECoG), 79936 (FM 1st hr), 12134 (FM additional hour), 33770 (DBS stim testing, 2 units), IOM period = 1 hour 56 min. During this time period, the IOM attending was present in the operating room for a total of 1 hour and 56 mins. Total monitoring time: 1 hour 56 min. Monitoring Team: Chapin Mccabe MD/PhD, Jose Maria Colby PhD, Antonia BEARD Anesthesia: Local anesthesia w/ sedation used as [...] respectively. The DBS electrode impedance ranges were 8267-3572 ohms and 5166-7598 ohms on the left and right, respectively. [...] Insurance: [employer] Prescription Coverage:Medicare/Government Personnel [place] Preferred Pharmacy: [facility], [place] Other: TBD Primary Care Provider: Griselda Stanley MD [phone] Patient/Caregiver Goals of Treatment: Per spouse, patient [...] of care planning. Lulu Medina RN Pager: [phone] Plan of Care - Keren Haney RN [...] Sapp MD - 06/17/2017 7:19 PM EST [facility] [place] Note Patient Name: Timbo Su : [id number] MR#: [id number] Case Date: 06/17/2017 Surgeon: Surgeon(s) and Role: [...] the usual sterile fashion. We performed a [facility] mandatory hard stop timeout, confirming the patient's [...] of the 4 sites. The 3-D printed [employer] I/O microTargeting platform frame was then brought onto [...] The frame was again removed and a line installation supervisor bit attached the [employer] electric drill was used to create fly holes bilaterally. A 0 straightcuret was then used to remove any bony remnants. The stim lock was then positioned over each fly hole and screwed in place using 5 mm screws from the [employer] plating kit. We then used bipolar cautery [...] 3 cannulas were then placed in a zksoyafw-osxenl-bpljhi directions through the star drive. We then [...] not migrate. The permanent electrodes were both Remotemedicaltronic 3887 electrodes. At this point the microTargeting [...] at arrival. 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 Pt got a bath. Pt has baselines [...] [direct monitoring required during toileting and ADLs]: TRAILER TECHNICIAN and RN Surveillance [continuous indirect monitoring]: Telemetry [...] Operative Note Patient Name: Timbo Su : [id number] MR#: [id number] Case Date: 06/17/2017 Surgeon: Surgeon(s) and Role: [...] Vishnu Hooper MD [facility] [address] NEUROLOGY DEPT. [place], [place] [address] (Wo rk) documented as of this encounter Procedures Procedure Name Priority Date/Time Associated Comments Diagnosis ASSISTED LIVING CARE MANAGER SCAN 06/19/2017 12:00 Res ults for this [...] documented in this encounter Results SCAN DOC: ASSISTED LIVING CARE MANAGER (06/19/2017 12:00 AM EST) Narrative 06/19/2017 12:00 AM EST This result has an attachment that is no t available. Ordered by an unspecified provider. Scanning Provider MEDIA MGR SCAN EXT ORDR/RSLT POCT Glucose (06/18/2017 8:13 AM EST) athologist Signature POC Glucose 182 65 - 199 [facility] mg/dL [facility] Comment: Supplemental ranges: <140 mg/dL before meals <180 mg/dL all other times of the day Specimen Anatomical Collection Method Collection Time Receive d Time (Source) Location / / Volume Laterality Blood specimen 06/18/2017 8:13 AM 017 8:13 (specimen) EST AM EST Randall Sapp MD POINT OF CARE TEST ORDERABLE S Performing Organization Address City/State/[place] [address] POCT Glucose (06/18/2017 7:47 AM EST) athologist Signature POC Glucose 165 65 - 199 [facility] mg/dL [facility] Comment: Supplemental ranges: <140 mg/dL before meals <180 mg/dL all other times of the day Specimen Anatomical Collection Method Collection Time Receive d Time (Source) Location / / Volume Laterality Blood specimen 06/18/2017 7:47 AM 017 7:47 (specimen) EST AM EST Randall Sapp MD POINT OF CARE TEST ORDERABLE S Performing Organization Address City/State/[place] [address] (ABNORMAL) Differential, Automated (06/18/2017 1:00 AM EST) [facility] gist Method Time Signature Neutrophils % 70.9 % [facility] Neutr Abs (ANC) 9.44 (H) 1.70 - [facility] 6.10 [facility] x10(3[facility] LABORATORY Lymphocytes % 18.6 % [facility] Lymphocytes Abs 2.5 0.9 - 3.2 [facility] x10(3)/[facility] LABORATORY Monocytes % 9.5 % [facility] Monocyte Abs 1.3 (H) 0.3 - 0.9 [facility] x10(3)/[facility] LABORATORY Eosinophils % 0.5 % [facility] Eosinophils Abs 0.1 0.0 - 0.4 [facility] x10(3)/[facility] LABORATORY Basophils % 0.1 % [facility] Basophils Abs 0.0 0.0 - 0.1 [facility] x10(3)/[facility] LABORATORY Immature Gran % 0.40 % [facility] Comment: Immature granulocytes(IG's)percentage an d absolute count will include metamyelocytes, myelocytes, and promyelo cytes. Blood smears from CBCs yielding IG's will be scanned manually for concor dance. If this scan disagrees with the automated IG or if promyelocytes are not ed, a manual differential will be performed. Anneliese Gran Abs 0.05 (H) 0.00 - 0.04 x10(3)/[facility] LABORATORY Specimen Anatomical Collection Method Collection Time Receive d Time (Source) Location / / Volume Laterality Blood specimen 06/18/2017 1:00 AM 017 1:10 (specimen) EST AM EST Resulting Agency Comment Spec In Lab Randall Sapp MD HEMATOLOGY ORDERABLES Performing Organization Address City/State/[place] [address] (ABNORMAL) Hemogram (06/18/2017 1:00 AM EST) Analysis Performed At Patho logist Time Signature WBC 13.3 (H) 4.0 - 9.5 [facility] x10(3)/[facility] LABORATORY RBC 3.95 (L) 4.58 - [facility] 5.54 [facility] x10(6)/[facility] LABORATORY Hemoglobin 12.4 (L) 13.7 - [facility] 16.[facility] gm/dL [facility] Hematocrit 34.9 (L) 40.5 - [facility] 48.5 % [facility] MCV 88.4 82.9 - [facility] 93.1 [facility] LABORATORY MCH 31.4 27.5 - [facility] 32.1 pg [facility] MCHC 35.5 32.0 - [facility] 35.7 gm/dL [facility] Platelets 140 (L) 145 - 357 [facility] x10(3)/[facility] LABORATORY RDWSD 39.9 36.0 - [facility] 45.0 [facility] LABORATORY RDWCV 12.3 11.4 - [facility] 13.8 % [facility] MPV 10.7 7.6 - 12.9 [facility] LABORATORY nRBC % Auto 0.0 % [facility] nRBC Abs Auto 0.000 0.000 - [facility] 0.000 [facility] x10(3)/[facility] LABORATORY Specimen Anatomical Collection Method Collection Time Receive d Time (Source) Location / / Volume Laterality Blood specimen 06/18/2017 1:00 AM 017 1:10 (specimen) EST AM EST Resulting Agency Comment Spec In Lab Randall Sapp MD HEMATOLOGY ORDERABLES Performing Organization Address City/State/ZIP [place] [address] (ABNORMAL) Basic Metabolic Panel (non-fasting) (06/18/2017 1:00 AM EST) athologist Signature Glucose Lvl 132 65 - 199 [facility] mg/dL [facility] Comment: Diabetes: >=200 mg/dL plus symp toms BUN 11 10 - 20 mg/dL [facility] Creatinine 0.71 (L) 0.80 - 1.50 mg/dL [facility] Sodium 141 135 - 145 mmol/L [facility] Potassium 3.3 (L) 3.5 - 5.0 mmol/L [facility] Comment: Please note: ??Patients with WBC >100,00 0 may have falsely elevated Potassium levels. ??For accurate Potassium quantif ication in these patients send serum separator tube (gold top) for subsequent determinations. ??Contact the Clinical Chemistry Laboratory if there are any qu estions. Chloride 102 98 - 107 mmol/L [facility] CO2 24 22 - 31 mmol/L [facility] Anion Gap 15 5 - 15 mmol/L [facility] Calcium 8.3 (L) 8.5 - 10.5 mg/dL [facility] Estimated GFR >60 >=60 [facility] Comment: The reported eGFR should be multiplied b y 1.2 for patients. The MDRD is not an appropriate measure o f renal function for patients with body mass extremes or in patients with acute kidney failure. http://Sellerout[employer].CombineNet/DHnkdep http://[employer]out[employer].CombineNet/DHMCnkf Specimen Anatomical Collection Method Collection Time Receive d Time (Source) Location / / Volume Laterality Blood specimen 06/18/2017 1:00 AM 017 1:10 (specimen) EST AM EST Resulting Agency Comment Spec In Lab Randall Sapp MD CHEMISTRY ORDERABLES Performing Organization Address City/State/ZIP Code Phon e Number [address] POCT Glucose (06/17/2017 7:34 PM EST) athologist Signature POC Glucose 156 65 - 199 [facility] mg/dL [facility] Comment: Supplemental ranges: <140 mg/dL before meals <180 mg/dL all other times of the day Specimen Anatomical Collection Method Collection Time Receive d Time (Source) Location / / Volume Laterality Blood specimen 06/17/2017 7:34 PM 017 7:34 (specimen) EST PM EST Randall Sapp MD POINT OF CARE TEST ORDERABLE S Performing Organization Address City/State/ZIP Code Phon e Number [address] POCT Glucose (06/17/2017 3:23 PM EST) athologist Signature POC Glucose 112 65 - 199 [facility] mg/dL [facility] Comment: Supplemental ranges: <140 mg/dL before meals <180 mg/dL all other times of the day Specimen Anatomical Collection Method Collection Time Receive d Time (Source) Location / / Volume Laterality Blood specimen 06/17/2017 3:23 PM 017 3:23 (specimen) EST PM EST Randall Sapp MD POINT OF CARE TEST ORDERABLE S Performing Organization Address City/State/ZIP Code Phon e Number [address] (ABNORMAL) Basic Metabolic Panel (non-fasting) (06/17/2017 2:00 PM EST) athologist Signature Glucose Lvl 126 65 - 199 [facility] mg/dL [facility] Comment: Diabetes: >=200 mg/dL plus symp toms BUN 14 10 - 20 mg/dL [facility] Creatinine 0.83 0.80 - 1.50 mg/dL [facility] Sodium 142 135 - 145 mmol/L [facility] Potassium 4.1 3.5 - 5.0 mmol/L [facility] Comment: Please note: ??Patients with WBC >100,00 0 may have falsely elevated Potassium levels. ??For accurate Potassium quantif ication in these patients send serum separator tube (gold top) for subsequent determinations. ??Contact the Clinical Chemistry Laboratory if there are any qu estions. Chloride 100 98 - 107 mmol/L [facility] CO2 25 22 - 31 mmol/L [facility] Anion Gap 17 (H) 5 - 15 mmol/L [facility] Calcium 8.9 8.5 - 10.5 mg/dL [facility] Estimated GFR >60 >=60 [facility] Comment: The reported eGFR should be multiplied b y 1.2 for patients. The MDRD is not an appropriate measure o f renal function for patients with body mass extremes or in patients with acute kidney failure. http://[employer]/DHnkdep http://[employer]/DHMCnkf Specimen Anatomical Collection Method Collection Time Receive d Time (Source) Location / / Volume Laterality Blood specimen 06/17/2017 2:00 PM 017 2:13 (specimen) EST PM EST Resulting Agency Comment Spec In Lab Randall Sapp MD CHEMISTRY ORDERABLES Performing Organization Address City/State/ZIP Code Phon e Number [address] POCT Glucose (06/17/2017 11:53 AM EST) P athologist Signature POC Glucose 153 65 - 199 [facility] mg/dL [facility] Comment: Supplemental ranges: <140 mg/dL before meals <180 mg/dL all other times of the day Specimen Anatomical Collection Method Collection Time Receive d Time (Source) Location / / Volume Laterality Blood specimen 06/17/2017 11:53 7 (specimen) AM EST 11:53 AM EST Randall Sapp MD POINT OF CARE TEST ORDERABLE S Performing Organization Address City/State/Z[place] [address] Head wo Contrast [...] ORDERABLES POCT Glucose (06/17/2017 6:42 AM EST) P athologist Signature POC Glucose 122 65 - 199 [facility] mg/dL [facility] Comment: Supplemental ranges: <140 mg/dL before meals <180 mg/dL all other times of the day Specimen Anatomical Collection Method Collection Time Receive d Time (Source) Location / / Volume Laterality Blood specimen 06/17/2017 6:42 AM 017 6:42 (specimen) EST AM EST Randall Sapp MD POINT OF CARE TEST ORDERABLE S Performing Organization Address City/State/[place] [address] SCAN DOC: IMPLANTABLE DEVICES [...] Pain, mild pain, Give p er rectum (AL) if unable to take PO. May repeat [...] Given 06/17/2017 12:40 PM EST 650 mg bacitracin injection Given 06/17/2017 10:40 AM 10,000 Units 19- Surg ical Site ONCE PRN, Starting on Sat06/17/17 at 1040, Until Sat06/17/17 at 1803, Intra-Operative (Intra-Procedure), Routine benztropine (COGENTIN) tablet 0.5 mg Given 06/17/2017 [...] n Sat06/17/17 at 1400, Until Discontinued, Routine BUpivacaine-EPINEPHrine 0.5 Given 06/17/2017 8:37 AM 8 mLs 19- Surgical Site %-1:200,000 injection EST ONCE PRN, Starting on Sat06/17/17 at 0834, Until Sat06/17/17 at 1803, Intra-Operative (Intra-Procedure), Routine Given 06/17/2017 8:34 AM EST 10 mLs 19- S urgical Site busPIRone (BUSPAR) tablet 7.5 mg Given 06/18/2017 [...] Given 06/17/2017 8:41 PM EST 20 mg gelatin adsorbable (GELFOAM) Given 06/17/2017 9:25 AM EST 1 each 19- Surgical Site sponge ONCE PRN, Starting on Sat06/17/17 at 0836, Until Sat06/17/17 at 1803, Intra-Operative (Intra-Procedure) Given 06/17/2017 8:36 AM EST 1 each 19- S urgical Site glucagon (human recombinant) injection S olR 1 [...] 2 Units labetalol (NORMODYNE,TRANDATE) injection 10-20 Given 1 08/17/2016 5:48 PM EST 10 mg mg [...] less than 50 beats per minute., Routine lisinopril (PRINIVIL;ZESTRIL) tablet 40 mg Given [...] Mild to moderate pa in (1-6), Routine senna-docusate (PERICOLACE) 8.6-50 mg per Given 2016 12:40 PM EST 2 tablets tablet 2 tablet 2 tablet, Oral, 2 TIMES DAILY, First dose on Sat06/17/17 at 1215, Until Discontinued, Routine simvastatin (ZOCOR) tablet 20 mg Given 06/17/2017 5:50 PM EST 20 mg 20 mg, Oral, DAILY WITH DINNER, First dose on Sat06/17/17 at 1700, Until Discontinued, Routine sodium chloride 0.9% infusion New Bag 06/18/2017 2:02 AM EST 75 mL/hr 75 mL/hr 75 mL/hr, Intravenous, CONTINUOUS, Starting on Sat06/17/17 at 1215, Until Sat06/18/17 at 1242, Recovery (Recovery-Hospital Unit) New Bag 06/17/2017 12:26 PM EST 75 mL/hr 75 mL/hr thrombin (bovine) Given 06/17/2017 9:25 AM 5,000 Units 19- Surgical Site (THROMBIN-JMI) solution EST ONCE PRN, Starting on Sat06/17/17 at 0836, Until Sat06/17/17 at 1803, Intra-Operative (Intra-Procedure) Given 06/17/2017 8:36 AM EST 5,000 Units 19- S urgical Site vancomycin 1.5 g in sodium New Bag [...] mg 1559 (G iven - Provider: Cathy Lowery RN)204 (Given - Provider: Keren Haney RN) 0827 [...] (CANCELED) 1225 (Given - Provider: Cathy Lowery RN)204 (Given - Provider: Keren Haney RN) 5 [...] 2031 (New Bag - Provider: Keren Haney RN)2201 (Stopped - Provider: Keren Haney RN) 0825 (New Bag - Provider: Calli Webb, JANNETTE)0955 (Due: Stopped - Provider: Calli Webb RN) [...] 1242, Pain, mild pain, Give per rectum (AL) if unable to take PO. May repeat [...] - Provider: Randall Sapp MD - Comment: 59802 units added to a liter LR) ONCE [...] hour., Routine labetalol (NORMODYNE,TRANDATE) injection 10-20 mg 1748 (Given - Provider: Diego Lopez RN) 10-20 [...] mg (COMPLET ED) 0720 (Given - Provider: Maria D Rose RN) 3 mg (0.3 mL), Subcutaneous, [...] 1242, Pain, mild pain
Give per rectum (AL) if unable to take PO. May repeat [...] Until Sat06/18/17 at 1242, Pain, severe pain (7-10)
May give an additional 5 mg in 30 minutes once if pain not relieved. Severe pain (7-10)
Routine documented in this encounter Care Teams Plate Take Out Worker Relationship Specialty Start Date End Date Griselda Stanley MD PCP - General 07/04/10 02/03/22 documented as of this encounter
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
--- OUTSIDE RECORDS SUMMARY | 2022-02-26 04:02 | XMS_ITS | Encounter Summary ---
:1955 Author Organization [facility] Address [facility] [place] [address] Care Team Providers Name Role Phone Griselda Stanley MD Primary Care Provider Reason for Visit Reason Onset Date Comments Medication Management 06/20/2015 Encounter Details Date Type Department Care Team Description 06/20/2015 Telephone [place] [facility] [place] Bakari Shields MD Medication Management [facility] [address] [place] [address] NEUROLOGY DEPT. [phone] [place], [place] [address] (Wo rk) Social History Tobacco [...] this encounter Miscellaneous Notes Telephone Encounter - Bakari Shields MD - 06/20/2015 5:34 AM EST Jhonny Zee. I saw Marcell Su (55) the other day; he is complaining alot about neuropathic pain. Any problemswith starting low-dose gabapentin? (I've seen some people who develop myoclonic jerking with this, didn't want to make his dyskinesias worse, but I think that was just an idiosyncratic reaction). WOuld amitriptyline be better? Thanks, hope all is well, Vikki Jhonny Florez, Both gabapentin and amitriptyline are reasonable choices. The possible advantage of amitriptyline isthat its anticholinergic effect might help his Parkinson's disease. The disadvantage is that its anticholinergic effect could impair his cognitive function if he has any cognitive symptoms. Low-dose gabapentin is usually fairly well tolerated by most people although some have annoying sideeffects even on the lowest doses. On balance, perhaps gabapentin should be the first choice at 100 mg BID or TID with increases as tolerated. All the best! Yayo documented in this encounter Plan of Treatment Upcoming Encounters Date Type Specialty Care Team Description 03/20/2022 Office Visit Neurology Vishnu Hooper MD [facility] [place] [address] (Wo rk) documented as of this encounter Visit Diagnoses Not on filedocumented in this encounter Care Teams Director Digital Analytics Relationship Specialty Start Date End Date Griselda Stanley MD PCP - General 07/04/10 02/03/22 documented as of this encounter
--- OUTSIDE RECORDS SUMMARY | 2022-02-26 04:02 | XMS_ITS | Encounter Summary ---
:1955 Author Organization [facility] [place] [address] Care Team Providers Name Role Phone Griselda Stanley MD Primary Care Provider Encounter Details Date Type Department Care Team Description 06/06/2017 Telephone [place] [facility] [place] [address] Social History Tobacco Use Types Packs/Day [...] this encounter Miscellaneous Notes Telephone Encounter - Geeta Rees RN - 06/06/2017 12:36 PM EDT Bela, , called stating Samuel (Timbo) fell on some steps on Saturday and bumped his back. He is c/o spasms and saw his PCP who prescribed Valium for bedtime. Samuel is scheduled for part 0 DBS surgery on Saturday, 06.10.17. He was claustraphobic the last time he had a MRI and required pre medication. His feels he will need something again to have the MRI on Saturday because now his back bothers him to lie flat and because of the claustrophobia. I told her to remind the nurse when he comes in on Saturday and that I would relay this information toDr. Sapp. documented in this encounter Plan of Treatment Upcoming Encounters Date Type Specialty Care Team Description 03/20/2022 Office Visit Neurology Vishnu Hooper MD [facility] NEUROLOGY DEPT. [place], [place] [address] (Wo rk) documented as of this encounter Visit Diagnoses Not on filedocumented in this encounter Care Teams Film Vault Supervisor Relationship Specialty Start Date End Date Griselda Stanley MD PCP - General 07/04/10 02/03/22 documented as of this encounter
--- OUTSIDE RECORDS SUMMARY | 2022-02-26 04:02 | XMS_ITS | Encounter Summary ---
:1955 Author Organization [facility] [place] [address] Care Team Providers Name Role Phone Griselda Stanley MD Primary Care Provider Reason for Visit Reason Comments Tremors to discuss DBS... Consultation (Routine) - Closed Specialty Diagnoses / Procedures Referred By Contact Refer red To Contact Neurosurgery Diagnoses Parkinson's disease Vishnu Hooper MD Aronson, Joshua P, MD [facility] NEUROLOGY [place]PT[place] [address] Fax: Referral ID Status Reason Start Date Expiration Date Visits V isits Requested Authorized [id number] Closed Consult, 03/29/2017 03/29/2018 1 1 Test & Treat Encounter Details Date Type Department Care Team Description 04/18/2017 Office Visit Neurosurgery at [facility] Randall Sapp MD [facility] [address] [place] [address] Parkinson's disease; [facility] Luis Felipe Tay MD [facility] [place] [place] [address] Mixed [place] and [place] [address] Social History Tobacco Use Types Packs/Day [...] place to sleep or slept in a care home (including now)? Sex Assigned at Date Recorded Not on file documented as of this encounter Last Filed Vital Signs Vital Sign Reading Time Taken Comments Blood Pressure 149/74 04/18/2017 2:21 PM EDT Pulse 59 04/18/2017 2:21 PM EDT Temperature - - Respiratory Rate - - Oxygen Saturation - - Inhaled Oxygen Concentration - - Weight 102.7 kg (226 lb 6.6 oz) 04/18/2017 2:21 PM EDT Height 185.4 cm (6' 1) 04/18/2017 2:21 PM EDT Body Mass Index 29.87 04/18/2017 2:21 PM EDT documented in this encounter Progress Notes Luis Felipe Tay MD - 04/18/2017 2:30 PM EDT Neurosurgery - Clinic Note Date & Time: 04/18/2017 7:43 PM ID: Timbo Su, 61 y.o. male, CC: Parkinson's disease HPI: This is a 61 y.o. male with a PMH of longstanding Parkinson's disease, depression, anxiety, DM, who was referred to our clinic for evaluation of DBS. The patient has been followed by our neurology department for almost 20 years now. He feels that his tremor has gotten worse over the past year. He was s tarted on benztropin to control his tremors but developed memory problems and the dose was halved. He was also started on an anxiolytic and antidepressant last winter and feels his anxiety and depression symptoms have improved significantly. Since his last clinic visit with us he has had on-off testing which showed a 58% improvement and while his neuropsychological testing was not normal, when he weaned the dose of his benztropin, his results improved. He visits to discuss possibility of DBS surgery. Denies headache, nausea, vomiting, numbness, weakness, paresthesias, LOC, difficulties with balance,visual or auditory symptoms. Denies bowel or bladder symptoms. Past Medical Hx: History reviewed. No pertinent past medical history. Past Surgical History: Procedure Laterality Date ??? CHOLECYSTECTOMY ??? HIP SURGERY as a child Medications: Current Outpatient Prescriptions on File Prior to Visit Medication Sig Dispense Refill ??? citalopram (CELEXA) 40 mg Tablet Take 1 tablet by mouth daily. 30 tablet 1 ??? busPIRone (BUSPAR) 7.5 mg Tablet Take 1 tablet by mouth 3 times daily. 90 tablet 5 ??? cholecalciferol, Vitamin D3, 1,000 unit Tablet Take 1,000 Units by mouth daily. ??? benztropine (COGENTIN) 1 mg Tablet Take by mouth 2 times daily. 1, 1 and half tab qhs ??? melatonin 3 mg Tablet Take 6 mg by mouth nightly. ??? omeprazole (PRILOSEC) 40 mg Capsule, Delayed Release(E.C.) Take 40 mg by mouth as needed. ??? lisinopril (PRINIVIL;ZESTRIL) 40 mg Tablet Take 1 tablet by mouth daily. ??? aspirin 81 mg EC tablet Take 81 mg by mouth daily. ??? simvastatin (ZOCOR) 20 mg tablet Take 20 mg by mouth nightly. ??? carbidopa-levodopa (SINEMET) 25-250 mg per tablet Take 1 tablet by mouth 4 times daily. ??? ibuprofen (ADVIL;MOTRIN) 600 mg tablet Take 600 mg by mouth every 6 hours as needed. ??? metFORMIN (GLUCOPHAGE) 500 mg tablet Take 250 mg by mouth 2 times daily (with meals). ??? metoprolol (LOPRESSOR) 100 mg tablet Take 100 mg by mouth 2 times daily. No current facility-administered medications on file prior to visit. Allergies: Allergies Allergen Reactions ??? Comtan [Entacapone] Nausea Only Shaking, muscle weakness. Family Hx: History reviewed. No pertinent family history. Social Hx: Social History Social History ??? Marital status: Spouse name: N/A ??? Number of children: N/A ??? Years of education: N/A Social History Main Topics ??? Smoking status: Former Smoker Types: Cigarettes Quit date: 12/10/1977 ??? Smokeless tobacco: Never Used ??? Alcohol use No ??? Drug use: No ??? Sexual activity: Not Asked Comment: Deferred Other Topics Concern ??? None Social History Narrative ROS: Constitutional: No recent weight loss, fevers, chills, night sweats. HEENT: No recent visual changes, hearing changes. Cardiovascular: No chest pain, palpitations. Pulmonary: No shortness of breath, cough, wheezing. GI: No abdominal pain, vomiting, change in bowel pattern. : No dysuria, urinary retention, urinary incontinence. MS: No new joint pain. Endo:No heat/cold intolerance, polyuria. Skin: No new rashes. Heme: No easy bruising, no bleeding problems. Vitals: Vitals: 04/18/17 1421 BP: 149/74 Pulse: 59 Weight: (!) 102.7 kg (226 lb 6.6 oz) Height: 185.4 cm (6' 1) Physical Exam: Gen: NAD. HEENT: ATNC. Normal sclera and conjunctiva. Mental Status/Cognitive: Awake, alert, oriented x3 Speech fluent, appropriate. Naming and repetition intact. Cranial Nerves: PERRL CN II - Visual acuity and ward grossly intact CN III, IV, - EOMI CN V - Sensation intact in V1,2 and 3 distributions CN VII - No facial asymmetry/droop CN VIII - Intact hearing bilaterally to finger rub CN IX, X - Palate and uvula midline CN XI - Trapezius 5/5 bilat CN XII - Tongue midline Tone: Moderate-severe increase in tone bilaterally Power: Segment Muscle Action Left Right C5 Biceps Elbow flexion 5 5 C6 Extensor carpi radialis Wrist extension 5 5 C7 Triceps Elbow extension 5 5 C8, T1 Hand intrinsics Grasp 5 5 L2 Iliopsoas Hip flexion 5 5 L3 Quadriceps Knee extension 5 5 L4 Tibialis anterior Dorsiflexion 5 5 L5 Extensor hallucis Great toe extension 5 5 S1 Gastrocnemius Plantar flexion 5 5 Gait: Mildly stooped forward Sensation in the extremities: Light touch: Decreased sensation bilaterally below the knees (baseline), rest intact Radiology: No relevant exams for this visit. Assessment/Plan: 61 y.o. male with a PMH of longstanding Parkinson's disease, anxiety and depression. Since his last clinic visit, the patient's anxiety and depression have improved significantly and his pre-op testinghas yielded encouraging results. He is therefore a suitable candidate for DBS surgery. Will likely ta rget GPi due to his psychiatric history. The risks, benefits and alternatives were discussed with the patient and questions answered. The patient and the requested surgery. We will plan to scheduled this at our next availability. Consents were signed. I have reviewed the assessment and plan with Dr. Sapp. Randall Sapp MD - 04/18/2017 2:30 PM EDT I have seen the patient as part of a shared visit with Dr. Tay. Please see attached note for further details. I agree with the details as written. The assessment and plan were formulated in discussionwith me and I agree with them as documented. Briefly, this is a 61 yo man with PD seen in 07/2016 for consideration of DBS, felt to be a good candidate, but then with debilitating anxiety, which placed his surgical workup on hold. Since that timehe was tapered down on benztropin and was started on celexa and buspar, with good effect. He does continue to have difficulty with rigidity and tremor and remains interested in DBS. We again discussed the expected benefits, risks, and alternatives to surgery. His on-off testing demonstrates a good response to dopamine replacement, and his psychiatric issues are clearly under better management. Thus, I believe at this point he is a reasonable candidate for DBS, and given his psychiatric history, I would plan on GPi as a target. We did discuss that STN is an alternate target often utilized in patientwith tremor predominance, but his neurocognitive issues are at higher risk of worsening with STN stimulation. He and his would like to proceed and consents for surgery were signed. Randall Sapp MD Total visit time 50 minutes, of which 30 were spent counseling and coordinating care, including reviewing relevant imaging, lab results, and/or medical records. documented in this encounter Plan of Treatment Upcoming Encounters Date Type Specialty Care Team Description 03/20/2022 Office Visit Neurology Vishnu Hooper MD [facility] NEUROLOGY DEPT. [place], [place] [address] (Wo rk) Scheduled Referrals Name Type Priority Associated Order Schedule Diagnoses Referral to Outpatient Referral Routine Parkinson's disease O rdered: Neurosurgery 03/29/2017 documented as of this encounter Visit Diagnoses Diagnosis Parkinson's disease Paralysis agitans Mixed anxiety and depressive disorder Dysthymic disorder documented in this encounter Care Teams Fruit And Vegetable Inspector Relationship Specialty Start Date End Date Griselda Stanley MD PCP - General 07/04/10 02/03/22 documented as of this encounter
--- OUTSIDE RECORDS SUMMARY | 2022-02-26 04:02 | XMS_ITS | Encounter Summary ---
:1955 Author Organization [facility] [place] [address] Care Team Providers Name Role Phone Griselda Stanley MD Primary Care Provider Encounter Details Date Type Department Care Team Description 02/27/2017 Office Visit Neurology at [facility] Vishnu Hooper MD Parkinson's disease; [facility] [place] cognitive disorder; [facility] Fatigue, unspecified type [place], [place] NEUROLOGY DEPT. [id number] [place] [address] [phone] Social History Tobacco Use Types Packs/Day Years Used Date Former Smoker Cigarettes Quit: 12/10/18 78 Smokeless Tobacco: Never Used Alcohol Use Standard Drinks/Week Comments Yes 0 (1 standard drink = 0.6 oz pure alcoho l) Rare Alcohol Habits Answer Date Recorded How often do you have a drink containing alcohol? Not asked How many drinks containing alcohol do you have on a typical Not asked day when you are drinking? How often do you have six or more drinks on one occasion? No t asked Comment: Rare 02/27/2017 Physical Activity Answer Date Recorded On average, [...] Sign Reading Time Taken Comments Blood Pressure 140/71 02/27/2017 12:52 PM EDT Pulse 57 02/27/2017 12:52 PM EDT Temperature - - Respiratory Rate - - Oxygen Saturation - - Inhaled Oxygen Concentration - - Weight 101.6 kg (224 lb) 02/27/2017 12:52 PM EDT Height 185.4 cm (6' 1) 02/27/2017 12:52 PM EDT reporte d Body Mass Index 29.55 02/27/2017 12:52 PM EDT documented in this encounter Progress Notes Vishnu Hooper MD - 02/27/2017 1:00 PM EDT [facility] Follow-up Note Patient ID: [...] ??? Mixed anxiety and depressive disorder F41.8 Subjective Interval history: He is here in the company of his Ana Lilia. He was followed since [address] Shields, who recently retired and was followed by Dr. Giuseppe Nevarez. She had initiated a workup with the intention of preoperative evaluation for deep brain stimulator surgery. This was initiated back in [facility], and he underwent neuropsychological testing that raise [...] of encounter: Current Outpatient Prescriptions Medication Sig ??? cholecalciferol, Vitamin D3, 1,000 unit Tablet Take 1,000 Units by mouth daily. ??? benztropine (COGENTIN) 1 mg Tablet Take by mouth 2 times daily. Indications: 1 tablet in AM, 0.5tablet in PM ??? melatonin 3 mg Tablet Take 6 mg by mouth nightly. ??? citalopram (CELEXA) 40 mg Tablet Take 1 tablet by mouth daily. ??? busPIRone (BUSPAR) 7.5 mg Tablet Take 1 tablet by mouth 3 times daily. ??? omeprazole (PRILOSEC) 40 mg Capsule, [...] per tablet Take 1 tablet by mouth 5 times daily. ??? ibuprofen (ADVIL;MOTRIN) 600 mg [...] Smokeless tobacco: Never Used ??? Alcohol use Yes Comment: Rare ??? Drug use: No ??? Sexual activity: Not Asked Comment: Deferred Other Topics Concern ??? None Social History Narrative Objective: Vitals: 02/27/17 1252 BP: 140/71 BP Location ([facility]): Right arm Patient Position: Sitting BP Cuff Sizes: Large Adult (32-43 cm) Pulse: 57 Weight: (!) 101.6 kg (224 lb) Height: 185.4 cm (6' 1) examination [...] biceps and triceps. Coordination is intact to [id number]-[id number] nose except for very slight left- handed action tremor which did not increase upon reaching the target (was not an intention tremor) [id number] was intact bilaterally. Gait examination shows that [...] Plan: Parkinson's disease Timbo Su is a 61-year-old man with a 22 year history of Parkinson's disease presenting with right-sided tremor worse than the left side, that has been responsive to levodopa, but, stated by neurocognitive impairment from the trihexyphenidyl. I recommended that we proceed with neurosurgery. However, given the history of elevated liver function tests, I wanted to check a serum ceruloplasmin to evaluate for the possibility of Dwayne's disease. I could not detect a Castañeda Will ring on bedside examination. I also wanted to confirm that his neurocognitive impairment was not secondary to a vitamin deficiency, so we ordered a vitamin B12 level which was in the 500 range. Assuming all of the testsare normal, I believe it is adequate to refer him back to neurosurgery. He and his are anxious to hear about neurosurgery's decision and I will discuss this with the team. Also of note, is that issac have partial instability on examination but according to Giuseppe's on examination, this went to normal with good postural control. It is also important to note that during the examination today, he was examined nearly in the end of dose state, which would have been close to an off examination. We spent 20 minutes of this 40 minute visit in consultation and discussion regarding the next stepsfor his surgical treatment of his Parkinson's disease. Vishnu Hooper MD PhD [facility] This note was generated with speech recognition software and may contain facility specialist errors. documented in this encounter Miscellaneous Notes Assessment & Plan Note - Vishnu Hooper MD - 02/27/2017 6:10 PM EDTAssociated Problem(s): Parkinson's disease (Resolved 08/23/2020) Timbo Su is a 61-year-old man with a 22 year history of Parkinson's disease presenting with right-sided tremor worse than the left side, that has been responsive to levodopa, but, stated by neurocognitive impairment from the trihexyphenidyl. I recommended that we proceed with neurosurgery. However, given the history of elevated liver function tests, I wanted to check a serum ceruloplasmin to evaluate for the possibility of Dwayne's disease. I could not detect a Castañeda Will ring on bedside examination. I also wanted to confirm that his neurocognitive impairment was not secondary to a vitamin deficiency, so we ordered a vitamin B12 level which was in the 500 range. Assuming all of the testsare normal, I believe it is adequate to refer him back to neurosurgery. He and his are anxious to hear about neurosurgery's decision and I will discuss this with the team. Also of note, is that issac have partial instability on examination but according to Giuseppe's on examination, this went to normal with good postural control. It is also important to note that during the examination today, he was examined nearly in the end of dose state, which would have been close to an off examination. documented in this encounter Plan of Treatment Upcoming Encounters Date Type Specialty Care Team Description 03/20/2022 Office Visit Neurology Vishnu Hooper MD [facility] NEUROLOGY DEPT. [place], [place] [address] (Wo rk) documented as of this encounter Procedures Procedure Name Priority Date/Time Associated Comments Diagnosis METHYLMALONIC ACID, Routine 02/27/2017 2:53 PM Parkinson 's disease Results for this SERUM EDT Mild cognitive procedure are in disorder the results section. CERULOPLASMIN Routine 02/27/2017 2:53 PM Parkinson's disease R esults for this EDT procedure are i n the results section. TSH Routine 02/27/2017 2:53 PM Fatigue, Results f or this EDT unspecified type procedure a re in the results section. VITAMIN B12 Routine 02/27/2017 2:53 PM Parkinson's d isease Results for this EDT Mild cognitive procedure are in disorder the results section. documented in this encounter Results Ceruloplasmin (02/27/2017 2:53 PM EDT) athologist Signature Ceruloplasmin 21.1 15.0 - GIUSEPPE GOMEZESTELITA 30.0 mg/dL [facility] Specimen Anatomical Collection Method Collection Time Receive d Time (Source) Location / / Volume Laterality Blood specimen 02/27/2017 2:53 PM 017 2:56 (specimen) EDT PM EDT Resulting Agency Comment Spec In Lab Vishnu Hooper MD CHEMISTRY ORDERABLES Performing Organization Address City/State/ZIP Code Phon e Number [address] TSH (02/27/2017 2:53 PM EDT) athologist Signature TSH 1.51 0.27 - 4.20 GIUSEPPE GOMEZESTELITA mlU/ML [facility] Specimen Anatomical Collection Method Collection Time Receive d Time (Source) Location / / Volume Laterality Blood specimen 02/27/2017 2:53 PM 017 2:56 (specimen) EDT PM EDT Resulting Agency Comment Spec In Lab Vishnu Hooper MD CHEMISTRY ORDERABLES Performing Organization Address City/[facility]/ZIP Code Phon e Number [address] Methylmalonic acid, serum (02/27/2017 2:53 PM EDT) Patholo gist Method Time Signature Methylmalonic Acid 0.18 <=0.40 GIUSEPPE GOMEZJACINTO OCK nmol/mL [facility] Comment: ADDITIONAL INFORMATIO N This test was developed and its performa nce characteristics determined by [facility] in a manner co nsistent with CLIA requirements. This test has not been jose de jesus ared or approved by the U.S. Food and Drug Administration. Test Performed by: [facility] - [address] [address] Specimen Anatomical Collection Method Collection Time Receive d Time (Source) Location / / Volume Laterality Blood specimen 02/27/2017 2:53 PM 017 9:07 (specimen) EDT AM EDT Resulting Agency Comment Spec In Lab Vishnu Hooper MD CHEMISTRY ORDERABLES Performing Organization Address City/State/[place] [address] Vitamin B12 (02/27/2017 2:53 PM EDT) athologist Signature Vitamin B-12 [phone] [facility] pg/mL [facility] Specimen Anatomical Collection Method Collection Time Receive d Time (Source) Location / / Volume Laterality Blood specimen 02/27/2017 2:53 PM 017 2:56 (specimen) EDT PM EDT Resulting Agency Comment Spec In Lab Vishnu Hooper MD CHEMISTRY ORDERABLES Performing Organization Address City/[facility]/ZIP [facility] [place] [address] documented in this encounter Visit Diagnoses Diagnosis Parkinson's disease Paralysis agitans Mild cognitive disorder Unspecified persistent mental disorders due to conditions classified elsewhere Fatigue, unspecified type documented in this encounter Care Teams Computer Support Specialist Relationship Specialty Start Date End Date Griselda Stanley MD PCP - General 07/04/10 02/03/22 documented as of this encounter
--- OUTSIDE RECORDS SUMMARY | 2022-02-26 04:02 | XMS_ITS | Encounter Summary ---
:1955 Author Organization [facility] Address [facility] [place] [address] Care Team Providers Name Role Phone Griselda Stanley MD Primary Care Provider Encounter Details Date Type Department Care Team Description 10/21/2012 Follow-Up Neurology at [facility] Bakari Shields MD Parkinson's disease (Primary Dx); [facility] [place] [address] NEUROLOGY DEPT. 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 HISTORY History of Present Illness Neurological History [id number] from my office notes: He had been [...] tunnel syndromes from his work in the [employer] were better with nocturnal splints. 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 From deconditioning and lack of exercise, his periods of shuffling and tremor have worsened. His PD symptoms in his legs got bad enough so that he had to take a medical correction from the [employer] in February 2011. He is not working [...] to his present weight of 239 lbs. Over the past 10 months. He was able to lose more weight: a total of 32 lbs to his present weight of227 lbs. His blood sugar has improved as has his BP. He is doing much more exercise at my direction:aerobics, walking, stationary bicycle, and stretching. His PD symptoms are better with mild dyskinesias that are not bothersome. He enrolled in the Parkinson's Disease Wellness Program which has helped. He still has imbalance from his diabetic polyneuropathy which is improved with looking at the ground and using a walking stick on uneven ground. His feet have diminished sensation but are not painful.No weakness. His left ankle fracture is better and his standing support from it is more stable. He was begun on Celexa for depression. He is sleeping quite a bit of the day in naps, especially after a busy day. His vitamin D level was slightly low at 28 and he takes D3 1000 u/day. Past Medical History Patient Active Problem List Diagnoses Code ??? Parkinson's disease 332.0 ??? Hypertension 401.9 ??? Hyperlipidemia 272.4 ??? Diabetes mellitus 250.00 ??? Carpal tunnel syndrome, bilateral 354.0 ??? Sciatica of left side 724.3 ??? Abnormal LFTs (liver function tests) 790.6 ??? Cholelithiasis 574.20 ??? 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 Ankle fracture, left 824.8 ??? Fatigue 780.79 Current Medications Current Outpatient Prescriptions Medication Sig Dispense Refill ??? citalopram (CELEXA) 10 mg/5 mL suspension Take 10 mg by mouth daily. ??? simvastatin (ZOCOR) 20 mg tablet Take 20 mg by mouth nightly. ??? amlodipine (NORVASC) 10 mg tablet Take 10 mg by mouth daily. ??? benztropine (COGENTIN) 1 mg tablet Take 1 mg by mouth 4 times daily. ??? carbidopa-levodopa (SINEMET) 25-250 mg per tablet Take 1 tablet by mouth 4 times daily. ??? clonAZEpam (KLONOPIN) 0.5 mg tablet Take 0.5 mg by mouth. At bedtime a few nights per week. ??? hydrochlorothiazide (HYDRODIURIL) 25 mg tablet Take 25 mg by mouth daily. ??? ibuprofen (ADVIL;MOTRIN) 600 mg tablet Take 600 mg by mouth every 6 hours as needed. ??? losartan (COZAAR) 100 mg tablet Take 100 mg by mouth daily. ??? metFORMIN (GLUCOPHAGE) 500 mg tablet Take 500 mg by mouth 2 times daily (with meals). ??? metoprolol (LOPRESSOR) 100 mg tablet Take 100 mg by mouth 2 times daily. Drug Allergies and Adverse Drug Reactions None Family History Positive for hypertension and coronary artery disease. Only neurological history is an uncle, who had a tremor that was said to be due to his medications. 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 He smoked cigarettes for a total of 13 years but stopped years ago. He does not use alcohol. He no longer rides a motorcycle. Review of Systems Positive and relevant symptoms, in addition to those mentioned in HPI, include: fatigue. No left ankle pain. PHYSICAL EXAMINATION General Physical Examination Appearance: The patient is a healthy-appearing man who appears of stated age who was examined in thepresence of his . He appears well-nourished and comfortable. Vital Signs: Recorded by the nurse as listed above. Head: Atruamatic. Extremities: Normal limb color and temperature; no pedal or ankle edema. Neurological Examination Mental status: The patient is alert, calm, oriented x 3, and exhibits normal language function, attention, concentration, and praxis. Short-term and long- term memory are normal. Fund of knowledge is normal. Cranial nerves: Pupils are symmetric, equal, round, and normally reactive to light. Eye movements are conjugate and full without nystagmus. He has mild facial akinesia but normal facial movements and facial sensation. Jaw movements, speech, swallow, and palatal elevation are normal. Shoulder shrug andhead movements are normal. Tongue protrudes in the midline and shows no atrophy. Motor: Limb muscles show no weakness, atrophy, fasciculations, myoclonus, or drift. He has a slight action tremor of outstretched hands. He has mild bradykinesia worse on left arm/hand and leg. He has a few limb dyskinesias today. Sensory: Legs have mildly reduced sensation to vibration below knees, worse on left with normal temperature sensation. Coordination: Ooehuy-bj-sujt test and rapid rhythmic movements of upper and lower extremities show minimal bradykinesia. Gait and station: Normal stance; gait is mildly off balance with combination of mild PD features andmild sensory ataxia. Romberg negative. Can stand on one foot for only a few seconds. Tendon reflexes: biceps triceps BR patellar AJ Plantars Right 1 1 1 1 0 NE Left 1 1 1 1 0 NE RADIOLOGY AND LABORATORY Radiology: None new. Laboratory: None new. ASSESSMENT This 57-year-old man has had Parkinson's disease for 16 years, with fairly good control on Sinemet and Cogentin with gradual progression over the past few years and a few dyskinesias that will limit future dosage escalation. His bilateral carpal tunnel syndromes are better. He has nocturnal myoclonus or REM behavior disorder for which he can take clonazepam qhs. His PD is stable and generally doing well. It is OK for him to take an extra Sinemet prn. I reassured him about the minimal danger of dyskinesias. He also has a mild diabetic sensory polyneuropathy adding an element of sensory gait ataxia to that caused by his PD. I explained that, given the relatively mild effect of PD on his gait, that the polyneuropathy is the majority factor causing is imbalance. He needs to look at the ground and use a walking stick on uneven ground. His fatigue may be due to his PD plus side effects of his medications, especially Sinemet and his antihypertensives. I wonder if he still needs triple drug antihypertensive therapy now that he has lostweight. He will be seeing Dr. Stanley soon who can decide. PLAN 1. Discussion, explanation, question answering, reassurance. 2. Continue current PD medications/doses. 3 Continue Vitamin D3 1000 units daily[address] 4. Ask Dr. Stanley about antihypertensive regimen. 5. Revisit in 9 months. Bakari Shields [place] [address] TEL: [phone] FAX: [phone] [email or web address] documented in this encounter Plan of Treatment Upcoming Encounters Date Type Specialty Care Team Description 03/20/2022 Office Visit Neurology Vishnu Hooper MD [facility] NEUROLOGY DEPT. [place] [address] (Wo rk) documented as of this encounter Visit Diagnoses Diagnosis Parkinson's disease - Primary Paralysis agitans Diabetes mellitus Type II or unspecified type diabetes troy litus without mention of complication, not stated as uncontrolled documented in this encounter Care Teams Vocational Trainer Relationship Specialty Start Date End Date Griselda Stanley MD PCP - General 07/04/10 02/03/22 documented as of this encounter
--- OUTSIDE RECORDS SUMMARY | 2022-02-26 04:02 | XMS_ITS | Encounter Summary ---
:1955 Author Organization [facility] [place] [address] Care Team Providers Name Role Phone Griselda Stanley MD Primary Care Provider Encounter Details Date Type Department Care Team Description 11/29/2011 Abstract Neurology at [place] Bakari Shields MD [place] [address] NEUROLOGY DEPT. [phone] [place] [id number] (Wo rk) Social History Tobacco Use Types [...] Visit Neurology Vishnu Hooper MD [facility] NEUROLOGY DEPT. [place], [place] [address] (Wo rk) documented as of this encounter Visit Diagnoses Not on filedocumented in this encounter Care Teams Registry Np Relationship Specialty Start Date End Date Griselda Stanley MD PCP - General 07/04/10 02/03/22 documented as of this encounter
--- OUTSIDE RECORDS SUMMARY | 2022-02-26 04:02 | XMS_ITS | Encounter Summary ---
:1955 Author Organization [facility] [place] [address] Care Team Providers Name Role Phone Griselda Stanley MD Primary Care Provider Encounter Details Date Type Department Care Team Description 07/24/2016 Office Visit Neurosurgery at [facility] Geeta Rees Parkinson's disease [facility] [place], [place] [address] Social History Tobacco Use Types Packs/Day [...] encounter Progress Notes Geeta Rees RN - 07/24/2016 9:45 AM EST Samuel is a 60 year old man diagnosed with Parkinson's disease [...] since restarting it in March. Samuel is accompanied by his . He is alert, oriented, and appropriate in NAD. His speech is clear. He SHAW well. His ambulation is steady. Samuel took his medication just prior to my visit. He had an occasional left hand tremor. I reviewed my DBS information sheet and gave him a copy. All questions were answered. He was given my business card and knows to call with any further questions. Samuel will need neuropsych testing and on/off testing prior to DBS surgery. documented in this encounter Plan of Treatment Upcoming Encounters Date Type Specialty Care Team Description 03/20/2022 Office Visit Neurology Vishnu Hooper MD [facility] NEUROLOGY DEPT. [place], [place] [address] (Wo rk) documented as of this encounter Visit Diagnoses Diagnosis Parkinson's disease Paralysis agitans documented in this encounter Care Teams Training Facilitator Relationship Specialty Start Date End Date Griselda Stanley MD PCP - General 07/04/10 02/03/22 documented as of this encounter
--- OUTSIDE RECORDS SUMMARY | 2022-02-26 04:02 | XMS_ITS | Encounter Summary ---
:1955 Author Organization [facility] [place] [address] Care Team Providers Name Role Phone Griselda Stanley MD Primary Care Provider Reason for Visit Reason Onset Date Comments Results 09/21/2016 Encounter Details Date Type Department Care Team Description 09/21/2016 Telephone Psychiatry and Behavioral Tyrone Gibbs, PhD Results Health at [facility] PSYCHIATRY DEPT. [facility] [place] [address] [place] [address] [phone] (Wo rk) Social History Tobacco Use Types [...] this encounter Miscellaneous Notes Telephone Encounter - Tyrone Gibbs, PhD - 09/26/2016 5:17 PM EST CONFIDENTIAL FEEDBACK NOTE ON NEUROPSYCHOLOGICAL EVALUATION Patient's Name: Timbo Cheney#: [id number] Date of Evaluation: 09/10/2016 Age: 60 years Date of : 1955 Occupation: On Disability Sex: Male Education: 12 years Lateral Dominance: Right-handed Referred By: Bola Chavez Date of Feedback: 09/21/2016 Mr. Su participated in a 15 minute phone feedback session to discuss the results of his [facility] neuropsychological evaluation. Briefly, Mr. uS???s neuropsychological findings should be interpreted with caution in light of variable effort as reflected in performance validity tests. With that caveat,he had difficulty with verbal and visual learning and memory, visual abstract reasoning, cognitive flexibility, fine motor dexterity and simple speed, and had variable working memory, processing speed,and inhibition. He otherwise demonstrated intact performance on measures of simple attention, language (expressive and receptive), and visuospatial and visuoconstruction. On questionnaire measures, he endorsed severe problems with depression and anxiety. Findings and recommendations were reviewed, though he was made aware that due to variable effort it is difficult to ascertain the etiology of his cognitive concerns as well as his candidacy for DBS. Itwas highlighted that his affective distress and poor sleep may be contributing to his cognitive concerns; thus, he may benefit from psychotherapy and medical care for his REM sleep behavior disorder. Mr. Su expressed understanding of the information provided and that his questions were answered, and reported that he was recently placed on an antidepressant. The report is available in full in eD. Thank you for referring Mr. Su for neuropsychological evaluation. If you would like additional information, please do not hesitate to contact us at . Tyrone Gibbs, Ph.D. Clinical Neuropsychologist Gym Instructorinspector line documented in this encounter Plan of Treatment Upcoming Encounters Date Type Specialty Care Team Description 03/20/2022 Office Visit Neurology Vishnu Hooper MD [facility] NEUROLOGY DEPT. [place], [place] [address] (Wo rk) documented as of this encounter Visit Diagnoses Not on filedocumented in this encounter Care Teams Fiscal Manager Relationship Specialty Start Date End Date Griselda Stanley MD PCP - General 07/04/10 02/03/22 documented as of this encounter
--- OUTSIDE RECORDS SUMMARY | 2022-02-26 04:02 | XMS_ITS | Encounter Summary ---
:1955 Author Organization [facility] [address] Care Team Providers Name Role Phone Griselda Stanley MD Primary Care Provider Reason for Visit Reason Onset Date Comments Medication Refill 04/01/2017 Encounter Details Date Type Department Care Team Description 04/01/2017 Refill Neurology at [facility] Matteo Macias MD [facility] [place] [address] NEUROLOGY DEPT. [phone] [place], [place] [address] (Wo rk) Social History Tobacco [...] Visit Neurology Vishnu Hooper MD [facility] NEUROLOGY DEPT. [place], [place] [address] (Wo rk) documented as of this encounter Visit Diagnoses Not on filedocumented in this encounter Care Teams Radiation Therapist Relationship Specialty Start Date End Date Griselda Stanley MD PCP - General 07/04/10 02/03/22 documented as of this encounter
--- OUTSIDE RECORDS SUMMARY | 2022-02-26 04:02 | XMS_ITS | Encounter Summary ---
:1955 Author Organization [facility], [place] [address] Care Team Providers Name Role Phone Griselda Stanley MD Primary Care Provider Reason for Referral Psychiatric (Routine) - Closed Specialty Diagnoses / Procedures Referred By Contact Refer red To Contact Psychiatry Diagnoses Parkinson's disease Fidel Han PA [facility] Psych Neuro 5d Procedures PRO NEUROPSYCHOLOGICAL TESTING,PER HOUR BY CLAIMS INVESTIGATOR [facility] [place] [address] [place] [address] Phone: Referral ID Status Reason Start Date Expiration Date Visits V isits Requested Authorized [id number] Closed Consult, 07/24/2016 07/24/2017 1 1 Test & Treat Reason for Visit Reason Comments Advice Only DBS CONSULT Consultation (Routine) - Closed Specialty Diagnoses / Procedures Referred By Contact Refer red To Contact Neurosurgery Diagnoses TREMOR - DISCUSS DBS Griselda Stanley MD Aronson, Joshua P, MD Procedures TREMOR - DISCUSS DBS [address] [facility] [address] [place], [place] [address] [place] [address] Phone: Fax: Referral ID Status Reason Start Date Expiration Date Visits Requ ested Visits Authorized [id number] Closed 06/07/2016 06/07/2017 1 1 Encounter Details Date Type Department Care Team Description 07/24/2016 Office Visit [place] [facility] [place] Sapp MD [facility] [place] [address] [place] [address] Parkinson's disease [facility] Fidel Han PA [facility] [place] [address] [place] [address] [place] [address] Social History Tobacco Use Types Packs/Day [...] Sign Reading Time Taken Comments Blood Pressure 137/77 07/24/2016 8:54 AM EST Pulse 64 07/24/2016 8:54 AM EST Temperature - - Respiratory Rate - - Oxygen Saturation - - Inhaled Oxygen Concentration - - Weight 103.4 kg (228 lb) 07/24/2016 8:54 AM EST Height 185.4 cm (6' 1) 07/24/2016 8:54 AM EST Body Mass Index 30.08 07/24/2016 8:54 AM EST documented in this encounter Progress Notes Fidel Han PA - 07/24/2016 9:00 AM EST Name: Timbo Su : 1955 PCP: Griselda Stanley MD REF: Griselda Stanley Date of Service: 07/24/2016 History & Physical CHIEF COMPLAINT Chief Complaint Patient presents with ??? Advice Only DBS CONSULT HISTORY OF PRESENT ILLNESS Timbo Su is a 60 y.o. male with a 20 year history of Parkinson disease who presents to the Neurosurgery clinic at the request of Dr. Nevarez to discuss possible deep brain stimulation surgery. Heis accompanied by his . Notes from Dr. Nevarez were reviewed in preparation for this consultation. In brief, Mr. Su has a20 year history of symptoms of Parkinson disease. He was a patient of Dr. Shields's prior to seeing Dr. Nevarez. Mr. Su first noticed tremor in his left upper extremity and this has progressed to involve both upper extremities. He also notices bradykinesias, rigidity, and gait instability. He deniespain or difficulty swallowing. He has had a good response to dopamine therapy and clearly notices the benefits and as the medication wears off. His tremor has been well controlled with the addition of Cogentin as well, but this has caused memory impairment. Cutting back on the dose resulted in improvement in memory but intolerable tremor. He returned to his original dose. Mr. Su was felt to be a good candidate for deep brain stimulation surgery given the length of his PD, his levodopa responsiveness, and medication side effects, thus he was referred to Neurosurgery. PAST MEDICAL HISTORY Patient Active Problem List Diagnosis Code ??? [...] ??? 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 No pertinent past medical history. Past Surgical History Procedure Laterality Date ??? Cholecystectomy ??? Hip surgery as a child ALLERGIES Allergies Allergen Reactions ??? Comtan [Entacapone] Nausea Only Shaking, muscle weakness. MEDICATIONS Current Outpatient Prescriptions: ??? benztropine (COGENTIN) 1 mg Tablet, TAKE ONE TABLET FOUR TIMES DAILY, Disp: 120 tablet, Rfl: 3 ??? omeprazole (PRILOSEC) 40 mg Capsule, Delayed Release(E.C.), Take 40 mg by mouth every other day., Disp: , Rfl: ??? ondansetron (ZOFRAN) 4 mg Tablet, Take 1 tablet by mouth as needed., Disp: , Rfl: ??? citalopram (CELEXA) 20 mg Tablet, Take 1 tablet by mouth daily., Disp: , Rfl: ??? lisinopril (PRINIVIL;ZESTRIL) 40 mg Tablet, Take 1 tablet by mouth daily., Disp: , Rfl: ??? aspirin 81 mg EC tablet, Take 81 mg by mouth daily., Disp: , Rfl: ??? simvastatin (ZOCOR) 20 mg tablet, Take 20 mg by mouth nightly., Disp: , Rfl: ??? carbidopa-levodopa (SINEMET) 25-250 mg per tablet, Take 1 tablet by mouth 5 times daily., Disp: , Rfl: ??? ibuprofen (ADVIL;MOTRIN) 600 mg tablet, Take 600 mg by mouth every 6 hours as needed., Disp: , Rfl: ??? losartan (COZAAR) 100 mg tablet, Take 100 mg by mouth daily., Disp: , Rfl: ??? metFORMIN (GLUCOPHAGE) 500 mg tablet, Take 500 mg by mouth 2 times daily (with meals)., Disp: , Rfl: ??? metoprolol (LOPRESSOR) 100 mg tablet, Take 100 mg by mouth 2 times daily., Disp: , Rfl: ??? ketorolac (TORADOL) 10 mg Tablet, Take 1 tablet by mouth as needed., Disp: , Rfl: SOCIAL HISTORY Social History Social History ??? Marital status: Spouse name: N/A ??? Number of children: N/A ??? Years of education: N/A Occupational History ??? Not on file. Social History Main Topics ??? Smoking status: Former Smoker Types: Cigarettes Quit date: 12/10/1977 ??? Smokeless tobacco: Never Used ??? Alcohol use Yes Comment: Beer Occasionally ??? Drug use: No ??? Sexual activity: Not on file Comment: Deferred Other Topics Concern ??? Not on file Social History Narrative FAMILY HISTORY History reviewed. No pertinent family history. REVIEW OF SYSTEMS General: Denies recent fever or illness. Eyes: Denies recent changes in vision. ENT: Denies recent changes in hearing or dysphagia. Cardiovascular: Denies CP, palpitations, or irregular heart beat. Respiratory: Denies SOB, cough, or recent respiratory infections. GI: Denies N/V/D/C or change in appetite. : Denies changes in urination; frequency, urgency or burning. Musculoskeletal: +Diabetic peripheral neuropathy. +PD symptoms per HPI. Denies focal motor weakness. Heme: Denies recent or history of bleeding or clotting disorder. Neuro: Per HPI. PHYSICAL EXAM BP 137/77 Pulse 64 Ht 185.4 cm (6' 1) Wt (!) 103.4 kg (228 lb) BMI 30.08 kg/m2 Constitutional: Well developed, well nourished, in NAD. Neuro: Mental Status/Cognitive: Awake, alert, answers questions appropriately. Cranial Nerves: CN II - Vision grossly intact, PERRLA CN III, IV, - EOMI CN V - V1-3 dermatomes intact to light touch CN VII - No facial asymmetry CN VIII - Hearing intact to limited bedside exam CN IX, X - Uvula midline CN XI - Shoulder shrug 5/5 bilaterally CN XII - Tongue midline Motor: Normal muscle bulk. Mildly increased tone L>R. Left hand tremor noted at rest toward end of examination. Bilateral tremulousness in posture. No tremor with action/intention. No pronator drift. Strength 5/5 throughout all muscle groups in all four extremities. Sensory: Sensation grossly intact to light touch in all four extremities. Cerebellar: No dysmetria with finger to nose testing bilaterally Gait: Normal gait. Reflexes: DTRs hypoactive and symmetric. No abnormal reflexes. ASSESSMENT & PLAN Timbo Su is a 60 y.o. male with a 20 year history of Parkinson disease who presents to the Neurosurgery clinic at the request of Dr. Nevarez to discuss possible deep brain stimulation surgery. Heis felt to be a good candidate for deep brain stimulation surgery since he has had a good response to levodopa therapy which is a good indicator for favorable responsiveness to stimulation, but has also been having side effects to medical management. We discussed the details of the surgery including risks, benefits, expectations and alternatives. He wishes to proceed and will make a tentative plan for surgery, but will need formal on-off testing and neuropsych testing prior. He uses baby ASA for general preventative health and he was informed that this would need to be stopped at least two weeks prior to surgery. He was also informed to avoid NSAIDs as well. Shared visit with Dr. Sapp. Patient independently seen and examined. Assessment and plan formulated with Dr. Sapp. Fidel Han PA-C Randall Sapp MD - 07/24/2016 9:00 AM EST I have seen the patient as part of a shared visit with Fidel Han PA-C. Please see his attached note for further details. I agree with the details as written. The assessment and plan were formulated in discussion with me and I agree with them as documented. Briefly, this is a 60 yo man with PD x [address] Pattie Nevarez for consideration of DBS placement. His first symptom was left upper extremity tremor, but this has progressed to bilateral upper extremity tremor, as well as bradykinesia. He also complains of dyskinesias. He has had a good response to dopamine replacement therapy, and has been managed medically for the past 20 years. However, cogentin has caused memory difficulties, which have improved when his dose has been lowered. On exam, he has significant bilateral upper extremity resting tremor, rigidity, and shuffling gait. Overall, given Mr. Su's symptoms, with good dopamine response, he would be a reasonable candidatefor DBS. We discussed that DBS would potentially help with tremor and bradykinesia, allow decreased medication dosage, and would help with postural instability. We discussed that DBS generally does nothelp with cognitive and autonomic issues. We discussed all parts of surgery (Part 0, 1 and 2), and the expected benefits, risks, and alternatives to surgery. He and his indicated understanding andall questions were answered. He does need on-off testing and neuropsych testing, which is all pending. Consents for surgery were signed. We will schedule surgery once pending testing is completed and re viewed. Randall Sapp MD Total visit time 85 minutes, of which 75 were spent counseling and coordinating care, including reviewing relevant imaging, lab results, and/or medical records. documented in this encounter Plan of Treatment Upcoming Encounters Date Type Specialty Care Team Description 03/20/2022 Office Visit Neurology Vishnu Hooper MD [facility] NEUROLOGY DEPT. [place], [place] [address] (Wo rk) Scheduled Referrals Name Type Priority Associated Order Schedule Diagnoses Referral to Outpatient Routine Parkinson's Ordered: Neuropsychology Referral disease 07/24/2016 documented as of this encounter Visit Diagnoses Diagnosis Parkinson's disease Paralysis agitans documented in this encounter Care Teams Supervisor Special Services Relationship Specialty Start Date End Date Griselda Stanley MD PCP - General 07/04/10 02/03/22 documented as of this encounter
--- OUTSIDE RECORDS SUMMARY | 2022-02-26 04:02 | XMS_ITS | Encounter Summary ---
:1955 Author Organization [facility] [place] [address] Care Team Providers Name Role Phone Griselda Stanley MD Primary Care Provider Encounter Details Date Type Department Care Team Description 09/12/2016 Procedure visit Neurology at [facility] Giuseppe Cherry, Parkinson's disease; [facility] DO Dyskinesia due to Parkinson's disease; [facility] Mild cognitive disorder; [facility] EVELYN (generalized anxiety disorder); [id number] [place] [address] Other depression [phone] Social History Tobacco Use Types Packs/Day Years [...] place to sleep or slept in a residential (including now)? Sex Assigned at Date Recorded Not on file documented as of this encounter Last Filed Vital Signs Vital Sign Reading Time Taken Comments Blood Pressure 183/82 09/12/2016 7:58 AM EST Pulse 62 09/12/2016 7:58 AM EST Temperature - - Respiratory Rate - - Oxygen Saturation - - Inhaled Oxygen Concentration - - Weight 101.6 kg (224 lb) 09/12/2016 7:58 AM EST Height 182.9 cm (6') 09/12/2016 7:58 AM EST reported Body Mass Index 30.38 09/12/2016 7:58 AM EST documented in this encounter Patient Instructions Patient InstructionsGiuseppe Cherry DO - 09/12/2016 8:00 AM EST Medication Instructions: Increase Celexa to 40 mg. Take 1 every morning. Try Melatonin, 6 mg every night at bedtime (over the counter med) for REM behavior sleep disorder. After 1 week, as long as you are feeling well - we are going to add Buspar, for anxiety. After 2 MORE weeks - CUT the Benztropine (Cogentin) to only TWO doses daily. One in the AM, and one mid-afternoon. We may try to cut this out completely, because I would like you to repeat the memory test. Call me for any problems Giuseppe CherryDO, documented in this encounter Progress Notes Giuseppe Cherry DO - 09/12/2016 8:00 AM EST UPDRS III Motor OFF Score ON Score III. MOTOR EXAMINATION 18. Speech 0 = Normal. 2 1 1 = Slight loss of expression, diction and/or volume. 2 = Monotone, slurred but understandable; moderately impaired. 3 = Marked impairment, difficult to understand. 4 = Unintelligible. 19. Facial Expression (head, upper and lower extremities) 0 = Normal. 2 1 1 = Minimal hypomimia, could be normal Poker Face. 2 = Slight but definitely abnormal diminution of facial expression 3 = Moderate hypomimia; lips parted some of the time. 4 = Masked or fixed facies with severe or complete loss of facial expression; lips parted 1/4 inch or more. 20. Tremor at rest Tremor at Rest: Face. lips, chin 0 0 0 = Absent. 1 = Slight and infrequently present. 2 = Mild in amplitude and persistent. Or moderate in amplitude, but only intermittently present. 3 = Moderate in amplitude and present most of the time. 4 = Marked in amplitude and present most of the time. Tremor at Rest: RUE 0 = Absent. 0 1 = Slight and infrequently present. 2 2 = Mild in amplitude and persistent. Or moderate in amplitude, but only intermittently present. 3 = Moderate in amplitude and present most of the time. 4 = Marked in amplitude and present most of the time. Tremor at Rest: LUE 0 0 = Absent. 1 = Slight and infrequently present. 3 2 = Mild in amplitude and persistent. Or moderate in amplitude, but only intermittently present. 3 = Moderate in amplitude and present most of the time. 4 = Marked in amplitude and present most of the time. Tremor at Rest: RLE 0 0 = Absent. 0 1 = Slight and infrequently present. 2 = Mild in amplitude and persistent. Or moderate in amplitude, but only intermittently present. 3 = Moderate in amplitude and present most of the time. 4 = Marked in amplitude and present most of the time. Tremor at Rest: LLE 0 0 0 = Absent. 1 = Slight and infrequently present. 2 = Mild in amplitude and persistent. Or moderate in amplitude, but only intermittently present. 3 = Moderate in amplitude and present most of the time. 4 = Marked in amplitude and present most of the time. 21. Action or Postural Tremor of hands RUE 1 1 0 = Absent. 1 = Slight; present with action. 2 = Moderate in amplitude, present with action. 3 = Moderate in amplitude with posture holding as well as action. 4 = Marked in amplitude; interferes with feeding. LUE 0 = Absent. 1 1 1 = Slight; present with action. 2 = Moderate in amplitude, present with action. 3 = Moderate in amplitude with posture holding as well as action. 4 = Marked in amplitude; interferes with feeding. 22. Rigidity (Judged on passive movement of major joints with patient relaxed in sitting position. Cogwheeling to be ignored.) Rigidity: Neck 0 0 = Absent. 1 = Slight or detectable only when activated by mirror or other movements. 2 2 = Mild to moderate. 3 = Marked, but full range of motion easily achieved. 4 = Severe, range of motion achieved with difficulty. Rigidity RUE 0 0 = Absent. 1 1 = Slight or detectable only when activated by mirror or other movements. 2 = Mild to moderate. 3 = Marked, but full range of motion easily achieved. 4 = Severe, range of motion achieved with difficulty. Rigidity: LUE 0 0 = Absent. 1 1 = Slight or detectable only when activated by mirror or other movements. 2 = Mild to moderate. 3 = Marked, but full range of motion easily achieved. 4 = Severe, range of motion achieved with difficulty. Rigidity: RLE 0 = Absent. 1 1 = Slight or detectable only when activated by mirror or other movements. 3 2 = Mild to moderate. 3 = Marked, but full range of motion easily achieved. 4 = Severe, range of motion achieved with difficulty. Rigidity: LLE 0 = Absent. 2 1 = Slight or detectable only when activated by mirror or other movements. 2 = Mild to moderate. 3 3 = Marked, but full range of motion easily achieved. 4 = Severe, range of motion achieved with difficulty. 23. Finger Taps (Patient taps thumb with index finger in rapid succession.) Finger Taps RUE 0 = Normal. 1 1 = Mild slowing and/or reduction in amplitude. 2 2 = Moderately impaired. Definite and early fatiguing. May have occasional arrests in movement. 3 = Severely impaired. Frequent hesitation in initiating movements or arrests in ongoing movement. 4 = Can barely perform the task. Finger Taps LUE 0 = Normal. 2 1 1 = Mild slowing and/or reduction in amplitude. 2 = Moderately impaired. Definite and early fatiguing. May have occasional arrests in movement. 3 = Severely impaired. Frequent hesitation in initiating movements or arrests in ongoing movement. 4 = Can barely perform the task. 24. Hand Movements (Patient opens and closes hands in rapid succesion.) Hand Movements: RUE 0 = Normal. 1 1 = Mild slowing and/or reduction in amplitude. 2 2 = Moderately impaired. Definite and early fatiguing. May have occasional arrests in movement. 3 = Severely impaired. Frequent hesitation in initiating movements or arrests in ongoing movement. 4 = Can barely perform the task. Hand Movements: LUE 0 = Normal. 3 2 1 = Mild slowing and/or reduction in amplitude. 2 = Moderately impaired. Definite and early fatiguing. May have occasional arrests in movement. 3 = Severely impaired. Frequent hesitation in initiating movements or arrests in ongoing movement. 4 = Can barely perform the task. 25. Rapid Alternating Movements of Hands RUE (Pronation-supination movements of hands, vertically and horizontally, with as large an amplitude as possible, both hands simultaneously.) 0 = Normal. 1 1 = Mild slowing and/or reduction in amplitude. 3 2 = Moderately impaired. Definite and early fatiguing. May have occasional arrests in movement. 3 = Severely impaired. Frequent hesitation in initiating movements or arrests in ongoing movement. 4 = Can barely perform the task. 25. Rapid Alternating Movements of Hands LUE 0 = Normal. 1 = Mild slowing and/or reduction in amplitude. 3 2 = Moderately impaired. Definite and early fatiguing. May have occasional arrests in movement. 4 3 = Severely impaired. Frequent hesitation in initiating movements or arrests in ongoing movement. 4 = Can barely perform the task. 26. Leg Agility RLE (Patient taps heel on the ground in rapid succession picking up entire leg. Amplitude should be at least 3 inches.) 0 = Normal. 1 1 = Mild slowing and/or reduction in amplitude. 3 2 = Moderately impaired. Definite and early fatiguing. May have occasional arrests in movement. 3 = Severely impaired. Frequent hesitation in initiating movements or arrests in ongoing movement. 4 = Can barely perform the task. Leg Agility LLE 0 = Normal. 1 = Mild slowing and/or reduction in amplitude. 2 2 = Moderately impaired. Definite and early fatiguing. May have occasional arrests in movement. 4 3 = Severely impaired. Frequent hesitation in initiating movements or arrests in ongoing movement. 4 = Can barely perform the task. 27. Arising from Chair (Patient attempts to rise from a straightbacked chair, with arms folded across chest.) 1 0 0 = Normal. 1 = Slow; or may need more than one attempt. 2 = Pushes self up from arms of seat. 3 = Tends to fall back and may have to try more than one time, but can get up without help. 4 = Unable to arise without help. 28. Posture 0 = Normal erect. 1 1 1 = Not quite erect, slightly stooped posture; could be normal for older person. 2 = Moderately stooped posture, definitely abnormal; can be slightly leaning to one side. 3 = Severely stooped posture with kyphosis; can be moderately leaning to one side. 4 = Marked flexion with extreme abnormality of posture. 29. Gait (Response to sudden, strong posterior displacement produced by pull on shoulders while patient erect with eyes open and feet slightly apart. Patient is prepared.) 0 = Normal. 1 1 = Walks slowly, may shuffle with short steps, but no festination (hastening steps) or propulsion. 2 2 = Walks with difficulty, but requires little or no assistance; may have some festination, shortsteps, or propulsion. 3 = Severe disturbance of gait, requiring assistance. 4 = Cannot walk at all, even with assistance. 30. Postural Stability (Combining slowness, hesitancy, decreased armswing, small amplitude, and poverty of movement in general.) 0 = Normal. 0 1 = Retropulsion, but recovers unaided. 2 2 = Absence of postural response; would fall if not caught by examiner. 3 = Very unstable, tends to lose balance spontaneously. 4 = Unable to stand without assistance. 31. Body Bradykinesia and Hypokinesia 0 = None. 1 1 = Minimal slowness, giving movement a deliberate character; could be normal for some persons. Possibly reduced amplitude. 3 2 = Mild degree of slowness and poverty of movement which is definitely abnormal. Alternatively, some reduced amplitude. 3 = Moderate slowness, poverty or small amplitude of movement. 4 = Marked slowness, poverty or small amplitude of movement. Off score: 53 On score: 22 % improvement on levodopa, 58%. Pt does have dyskinesia. From a motor perspective, he appears to be an excellent DBS candidate. Today we discussed his anxiety and depression at length. His said that his anxiety is becoming so severe, that he really does not even want to leave the house. He had great deal of difficulty performing during his neuropsych testing on Saturday. In fact, they had to stop the testing a few hours and. He was not able to comprehend or focus on the directions given to him. He became extremely anxious.The optical technician said that his anxiety and depression were off the charts. He has been on Celexa, 20mg, for quite some time now. During her first visit in April, he also endorsed short-term memorydifficulty. He is on a very high dose of Cogentin - 4 mg daily. This is also likely playing a role. I would like him to repeat the neuropsych testing is possible, when his anxiety and depression is under better control, and off the Cogentin. I have made the following recommendations: Patient Instructions Medication Instructions: Increase Celexa to 40 mg. Take 1 every morning. Try Melatonin, 6 mg every night at bedtime (over the counter med) for REM behavior sleep disorder. After 1 week, as long as you are feeling well - we are going to add Buspar, for anxiety. After 2 MORE weeks - CUT the Benztropine (Cogentin) to only TWO doses daily. One in the AM, and one mid-afternoon. We may try to cut this out completely, because I would like you to repeat the memory test. Call me for any problems Giuseppe Cherry DO, I spent 1 hour and 1/2 with the patient today with on/off testing and follow-up. GIUSEPPE CHERRY DO Movement Disorders [facility] Neurology documented in this encounter Plan of Treatment Upcoming Encounters Date Type Specialty Care Team Description 03/20/2022 Office Visit Neurology Vishnu Hooper MD [facility] NEUROLOGY DEPT. [place], [place] [address] (Wo rk) documented as of this encounter Visit Diagnoses Diagnosis Parkinson's disease Paralysis agitans Dyskinesia due to Parkinson's disease Lack of coordination Mild cognitive disorder Unspecified persistent mental disorders due to conditions classified elsewhere EVELYN (generalized anxiety disorder) Generalized anxiety disorder Other depression documented in this encounter Care Teams Bellmaker Relationship Specialty Start Date End Date Griselda Stanley MD PCP - General 07/04/10 02/03/22 documented as of this encounter
--- OUTSIDE RECORDS SUMMARY | 2022-02-26 04:02 | XMS_ITS | Encounter Summary ---
:1955 Author Organization [facility] [place] [address] Care Team Providers Name Role Phone Griselda Stanley MD Primary Care Provider Encounter Details Date Type Department Care Team Description 08/24/2010 Follow-Up Neurology at [facility] Bakari Shields MD [facility] [place] [address] NEUROLOGY DEPT. [phone] [place], [place] [address] (Wo rk) Social History Tobacco [...] Visit Neurology Vishnu Hooper MD [facility] NEUROLOGY DEPT. [place], [place] [address] (Wo rk) documented as of this encounter Visit Diagnoses Not on filedocumented in this encounter Care Teams Computer Game Tester Relationship Specialty Start Date End Date Griselda Stanley MD PCP - General 07/04/10 02/03/22 documented as of this encounter
--- OUTSIDE RECORDS SUMMARY | 2022-02-26 04:02 | XMS_ITS | Encounter Summary ---
:1955 [place] [address] Care Team Providers Name Role Phone Griselda Stanley MD Primary Care Provider Encounter Details Date Type Department Care Team Description 06/10/2017 [facility]counter [facility] [place] [address] [place] [address] [phone] Social History Tobacco Use Types Packs/Day Years [...] 20 (PRINIVIL;ZESTRIL) 40 mg mouth daily. Tablet aspirin 81 mg EC tablet Take 81 mg by mouth 0 06/18/2017 daily. simvastatin (ZOCOR) 20 mg Take 20 mg by mouth 0 12/30/2019 tablet nightly. carbidopa-levodopa Take 1 tablet by 0 08/23/2020 (SINEMET) 25-250 mg per mouth 4 times tablet daily. ibuprofen (ADVIL;MOTRIN) Take 600 mg by 0 06/18/2017 600 mg tablet mouth every 6 hours as needed. metFORMIN (GLUCOPHAGE) Take 1,000 mg by 0 12/30/2020 500 mg tablet mouth 2 times daily (with meals). metoprolol (LOPRESSOR) Take 100 mg by 0 12/30/2019 100 mg tablet mouth 2 times daily. documented as of this encounter H&P Notes Randall Sapp MD - 06/10/2017 3:00 PM EDT 24-HOUR UPDATE ?? Timbo Su was seen in SDP. No interval events or changes in health status since preoperative H+P (see EPIC). Denies angina/dyspnea/fevers or malaise within the last 14 days. All questions were answered. Stable for procedure as scheduled. Randall Sapp MD documented in this encounter Miscellaneous Notes Op Note - Randall Sapp MD - 06/10/2017 2:21 PM EDT [facility] [place] Patient Name: Timbo Su : [id number] MR#: [id number] Case Date: 06/10/2017 Surgeon: Surgeon(s) and Role: * Randall Sapp MD - Primary Preoperative diagnosis: PARKINSON'S Postoperative diagnosis: * No post-op diagnosis entered * Procedure(s) (LRB): PLACEMENT-STARFIX FIDUCIALS (WRVU 4) (Bilateral) Anesthesia: Local Estimated Blood Loss: <5 cc Specimens removed during surgery: None Drains: None Surgical Closure: Primary Closure - closure of ALL tissue levels during the original surgery regardless of wires, wickes, drains, or other devices extruding through the incision Disposition: regional anesthesia administered without incident Condition: doing well without problems (Please see the Surgical Encounter Summary for any Implant and Specimen details pertinent to this patient.) HPI/Surgical Indications: 61 yo man with medically refractory Parkinson's Disease with plan for DBS placement, now presenting for StarFIX bone anchor placement in preparation of DBS electrode placementnext week. Procedure Description: The patient was brought in to the procedure room. Her head was resting on a gel donut. The coronal suture was identified and tentative fly holes locations were marked just in front of the coronal suture and 3 cm to either side of midline. Using the fiducial template, four fiducial implant sites were marked at least 5 cm from the planned fly holes. We then performed a [facility] mandated hard stop timeout confirming patient's name, medical record number, and planned procedure. We shaved the hair around each site and prepped the skin using betadine. We began by instilling local anesthetic at each implant site, 0.5% marcaine with epinephrine, 1cc per site. We then incised the skin using a #11 blade, making a 4mm incision down to the bone surface. We then used the electric drill to drill a ems helicopter pilot hole. We then switched to the flatbed company driver bit and screwed the fiducial in to place ensuring it seated fully on the bone surface. This was repeated until all 4 fiducials were inserted. We then irrigated and closed each site using a 4-0 monocryl suture in a figure of 8 fashion. Dermabond was then placed over each incision. The patient tolerated the procedure well without complication. Infection Bundle used? No Attestation: Case Date: 06/10/2017 I performed this procedure without the involvement of a resident. Randall Sapp MD 06/10/2017 documented in this encounter Plan of Treatment Upcoming Encounters Date Type Specialty Care Team Description 03/20/2022 Office Visit Neurology Vishnu Hooper MD [facility] NEUROLOGY DEPT. [place], [place] [address] (Wo rk) documented as of this encounter Procedures Procedure Name Priority Date/Time Associated Diagnosis Comme nts CT HEAD WO CONTRAST Routine 06/10/2017 11:09 AM R esults for this (GENERIC) EDT procedure are i n the results section. MRI BRAIN WO Routine 06/10/2017 10:27 AM Results for this CONTRAST EDT procedure are i n the results section. PLACEMENT-STARFIX Yes 06/10/2017 10:23 AM PARKINSON'S FIDUCIALS (WRVU 4) EDT documented in this encounter Results CT Head wo Contrast (Generic) (06/10/2017 11:09 AM EDT) Anatomical Region Laterality Modality Head Computed Tomography Specimen (Source) Anatomical Location Collection Method / Collectio n Time Received Time / Laterality Volume Impressions 06/10/2017 1:23 PM EDT See above. Narrative 06/10/2017 1:23 PM EDT EXAMINATION: CT HEAD WO CONTRAST (GENERIC) CLINICAL HISTORY: Post Screw Placement TECHNIQUE: CT Head was performed without contrast COMPARISON: Brain MRI 06/10/2017. FINDINGS: Examination performed for preo perative planning and intraoperative navigation. Fiducial markers are in plac e. No abnormalities detected. Procedure Note Lisa Garcia MD - 06/10/2017Formatti ng of this note might be different from the original. EXAMINATION: CT HEAD WO CONTRAST (GENERI C) CLINICAL HISTORY: Post Screw Placement TECHNIQUE: CT Head was performed without contrast COMPARISON: Brain MRI 06/10/2017. FINDINGS: Examination performed for preo perative planning and intraoperative navigation. Fiducial markers are in plac e. No abnormalities detected. IMPRESSION See above. Randall Sapp MD IMG CT ORDERABLES MRI Brain wo Contrast (06/10/2017 10:27 AM EDT) Anatomical Region Laterality Modality Head Magnetic Resonance Specimen (Source) Anatomical Location Collection Method / Collectio n Time Received Time / Laterality Volume Impressions 06/10/2017 12:00 PM EDT MRI for surgical planning. No acute process. I have personally reviewed the image(s) and the residents interpretation and agree with the findings, Ileana Caldera at 06/10/2017 12:00 PM Narrative 06/10/2017 12:00 PM EDT EXAMINATION: MRI BRAIN WO CONTRAST CLINICAL HISTORY: Fiducial Screw Placeme nt pre-op planning TECHNIQUE: Limited MRI of the brain without contras t. COMPARISON: CT head performed the same day FINDINGS: T1 and T2 signal drop out projecting ove r the left zygoma. Mild generalized sulcal prominence and c ommensurate ventricular dilation. No intra-axial or extra-axial hemorrhage, c ollection, mass, or mass effect. Increased T2 signal adjacent to the subs tantia nigra bilaterally, within the right paramedian yanely, and right middle cerebellar peduncle, and an etat crible pattern within the bilateral globus pall idus and putamen, likely represent dilated perivascular spaces or alternati vely small lacunar infarcts. Central arterial T2 flow voids are nirmala l in course and caliber. The orbits are normal. The paranasal sinuses, mastoid a ir cells, and middle ear spaces are clear. Procedure Note Ileana Caldera MD - 06/10/2017Form atting of this note might be different from the original. EXAMINATION: MRI BRAIN WO CONTRAST CLINICAL HISTORY: Fiducial Screw Placeme nt pre-op planning TECHNIQUE: Limited MRI of the brain without contras t. COMPARISON: CT head performed the same day FINDINGS: T1 and T2 signal drop out projecting ove r the left zygoma. Mild generalized sulcal prominence and c ommensurate ventricular dilation. No intra-axial or extra-axial hemorrhage, c ollection, mass, or mass effect. Increased T2 signal adjacent to the subs tantia nigra bilaterally, within the right paramedian yanely, and right middle cerebellar peduncle, and an etat crible pattern within the bilateral globus pall idus and putamen, likely represent dilated perivascular spaces or alternati vely small lacunar infarcts. Central arterial T2 flow voids are nirmala l in course and caliber. The orbits are normal. The paranasal sinuses, mastoid a ir cells, and middle ear spaces are clear. IMPRESSION MRI for surgical planning. No acute proc ess. I have personally reviewed the image(s) and the residents interpretation and agree with the findings, Ileana Caldera at 06/10/2017 12:00 PM Randall Sapp MD IMG MRI ORDERABLES documented in this encounter Visit Diagnoses Not on filedocumented in this encounter Active and Recently Administered Medications Times are shown in EDT. PRN Medication Order 06/08/2017 06/09/2017 06/10/2017 BUpivacaine-EPINEPHrine 0.5 %-1:200,000 Soln (CANCELED) 1146 (Given - Provider: Randall Sapp MD - Comment: 5ml of 10ml vial administered) ONCE PRN, Starting 06/10/17 at 1146, Intra-Operative (Intra- Procedure) documented in this encounter Care Teams Collision Technician Relationship Specialty Start Date End Date Griselda Stanley MD PCP - General 07/04/10 02/03/22 documented as of this encounter
--- OUTSIDE RECORDS SUMMARY | 2022-02-26 04:02 | XMS_ITS | Encounter Summary ---
:1955 Author Organization [facility] [place] [address] Care Team Providers Name Role Phone Griselda Stanley MD Primary Care Provider Reason for Visit Reason Onset Date Comments Medication Refill 03/21/2017 Encounter Details Date Type Department Care Team Description 03/21/2017 Refill Neurology at [place] Vishnu Hooper MD [facility] [place] [address] NEUROLOGY DEPT. [phone] [place], [place] [address] (Wo rk) Social History Tobacco [...] Visit Neurology Vishnu Hooper MD [facility] NEUROLOGY DEPT. [place], [place] [address] (Wo rk) documented as of this encounter Visit Diagnoses Not on filedocumented in this encounter Care Teams Garland Machine Operator Relationship Specialty Start Date End Date Griselda Stanley MD PCP - General 07/04/10 02/03/22 documented as of this encounter
--- OUTSIDE RECORDS SUMMARY | 2022-02-26 04:02 | XMS_ITS | Encounter Summary ---
:1955 Author Organization [facility] [place] [address] Care Team Providers Name Role Phone Griselda Stanley MD Primary Care Provider Encounter Details Date Type Department Care Team Description 06/10/2017 [facility] ACEMENT-STARFIX [place] [facility] [place] SANTIAGO FIDUCIALS (WRVU 4) [facility] [place] [address] [place] [address] [phone] Social History Tobacco Use Types Packs/Day Years [...] Sapp MD - 06/10/2017 2:21 PM EDT [facility] Operative Note Patient Name: Timbo Su : [id number] MR#: [id number] Case Date: 06/10/2017 Surgeon: Surgeon(s) and Role: [...] planned fly holes. We then performed a [facility] mandated hard stop timeout confirming patient's name, [...] used the electric drill to drill a airplane pilot commercial hole. We then switched to the certified driver examiner bit and screwed the fiducial in to [...] Visit Neurology Vishnu Hooper MD [facility] NEUROLOGY DEPT. [place], [place] [address] (Wo rk) documented as of [...] MAR Action Action Date Dose Rate Site BUpivacaine-EPINEPHrine Given 06/10/2017 11:46 AM 1 vial 19- Surgical Site 0.5 %-1:200,000 Soln EDT ONCE PRN, Starting on Sat06/10/17 at 1146, Until Sat06/12/17 at 0944, Intra-Operative (Intra-Procedure) documented in this encounter Active and Recently Administered Medications Times are shown in EDT. PRN Medication Order 06/08/2017 06/09/2017 06/10/2017 BUpivacaine-EPINEPHrine 0.5 %-1:200,000 Soln (CANCELED) 1146 (Given - Provider: Randall Sapp MD - Comment: 5ml of 10ml vial administered) ONCE PRN, Starting Sat06/10/17 at 1146, Intra-Operative (Intra- Procedure) documented in this encounter Care Teams Primer Waterproofing Machine Operator Relationship Specialty Start Date End Date Griselda Stanley MD PCP - General 07/04/10 02/03/22 documented as of this encounter
--- OUTSIDE RECORDS SUMMARY | 2022-02-26 04:02 | XMS_ITS | Encounter Summary ---
:1955 Author Organization [facility] [place] [address] Care Team Providers Name Role Phone Griselda Stanley MD Primary Care Provider Reason for Visit Reason Onset Date Comments Other 12/05/2015 Starting new medicat ion and discontinuing another Encounter Details Date Type Department Care Team Description 12/05/2015 Telephone Neurology at [facility] Bakari Shields, Other (Starting [facility] medication and [address] [facility] discontinuing another) [place] [address] NEUROLOGY DEPT. [place], [place] [address] Social History Tobacco Use Types [...] this encounter Miscellaneous Notes Telephone Encounter - Catie Shelton RN - 01/02/2016 11:13 AM EDT Call placed to [facility] with the following message from Dr. Shields--I would like to Rx: Comtan 200 mg, one-half tablet four times daily as an addition to his other medications. Please ask them to call back with report in 10 days or sooner if side effects. Watch for dyskinesias. Script sent to [facility]. Pt has follow up appt with Dr. Shields on 01/11. Telephone Encounter - Ctaie Shelton RN - 01/02/2016 8:55 AM EDT Call placed to Arlyn, pt's , to discuss medication use and symptoms. She states that he's takingcarbidopa levodopa 25/250 mg 5 times daily and benztropine 1/2 tab QID. She states that he has a very pronounced tremor. With activity, the tremor increases in his arms and is also present in his legs.She wonders about adding another medication that Dr. Shields was going to talk with Dr. Stanley about. I will forward message on to Dr. Shields and call Aristidesmick back. Telephone Encounter - Josette Schilling RN - 12/05/2015 5:01 PM EDT I want him to: ? 1) Continue half-doses of benztropine that he has been taking since I saw him; ? 2) Increase Sinemet 25/250 from one four times daily to one five times daily by reducing the interval between each dose from around 5 hours to around 4 hours; and ? 3) Call back next Saturday with a report, or sooner if worse. ? Thanks, ? JLB ? Spouse/patient returned call for direction. Advised in above per Dr Shields. He has been taking Benztropine 1/2 tab 4 x per day. Will continue with this dose. He will change the Sinemet 25/250 to 5 x per day. He notes has been taking approximately every 4 hours. He will fit an extra dose in shortening the time between doses. They will call with an update on Saturday. Sooner if problems. No refills needed at this time. Med list updated. Telephone Encounter - Catie Shelton RN - 12/05/2015 2:05 PM EDT Call placed to Arlyn, pt's , to discuss benztropine use. She states that pt has decreased the medication to 1/2 mg QID. His tremor has increased tremendously but his cognition is much better. She states that he is also much worse. She states that Dr. Stanley is now out of the office x 3 weeks and they're not sure what to do about medication use. Will forward message on to Dr. Shields and call Candmick back. Telephone Encounter - Nataly Orellana - 12/05/2015 8:53 AM EDT Patient's calling in regards to decreasing benztropine to 0.5 mg four times daily, patient is almost out of this medication and she thought that Dr. Shields wanted to start patient on new medication in it's place. Please call back to home # [phone]. documented in this encounter Plan of Treatment Upcoming Encounters Date Type Specialty Care Team Description 03/20/2022 Office Visit Neurology Vishnu Hooper MD [facility] NEUROLOGY DEPT. [place], [place] [address] (Wo rk) documented as of this encounter Visit Diagnoses Not on filedocumented in this encounter Care Teams Realty Loan Specialist Relationship Specialty Start Date End Date Griselda Stanley MD PCP - General 07/04/10 02/03/22 documented as of this encounter
--- OUTSIDE RECORDS SUMMARY | 2022-02-26 04:02 | XMS_ITS | Encounter Summary ---
:1955 Author Organization [facility] [place] [address] Care Team Providers Name Role Phone Griselda Stanley MD Primary Care Provider Encounter Details Date Type Department Care Team Description 01/12/2016 Office Visit Neurology at [facility] Bakari Shields, Parkinson's disease; [facility] [place] [address] NEUROLOGY DEPT. [phone] [place], [place] [address] Social History Tobacco Use Types [...] Sign Reading Time Taken Comments Blood Pressure 154/85 01/12/2016 8:17 AM EDT Pulse 56 01/12/2016 8:17 AM EDT Temperature - - Respiratory Rate - - Oxygen Saturation - - Inhaled Oxygen Concentration - - Weight 99.8 kg (220 lb) 01/12/2016 8:17 AM EDT Height 182.9 cm (6') 01/12/2016 8:17 AM EDT Body Mass Index 29.84 01/12/2016 8:17 AM EDT documented in this encounter Progress Notes Bakari Shields MD - 01/12/2016 12:08 PM EDT Reason for Revisit Consultation I am seeing this 60-year-old man with Parkinson's disease of onset in 1996, and 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 HISTORY History of Present Illness Neurological History [id number] from my office notes: He had been [...] tunnel syndromes from his work in the [employer] were better with nocturnal splints. 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 From deconditioning and lack of exercise, his periods of shuffling and tremor have worsened. His PD symptoms in his legs got bad enough so that he had to take a medical half-way from the [employer] in February 2011. He is not working [...] has been worse. On a visit to [place] over the summer, he tripped and fell [...] He had to be admitted overnight to [facility] the night before they drove to [place] because of his anxiety. An SC was ruled out. He also had an [...] while. He is under the care of extrusion process operator. His explains his sleep movement disorder in which he kicks, punches, and screams in his sleep. His says that he has much anxiety and worries about things constantly. In November 2015, I noted that he has not been doing well for many months. His tremor is worse, his bradykinesia is more prominent, his gait is slower and more shuffling, he [...] 40 minutes. His said that he has significantanxiety and depression. Dr. Stanley Rx Celexa which [...] nearly normal in cognition and motor function. Because of symptoms of cognitive impairment, in November 2015, I reduced his benztropine dose by 50% to0.5 mg four times daily. This induced an improvement in his cognition but a worsening in his PD motor function. A week ago, he began taking Comtan 200 mg one-half tablet 4 times daily. This has improved him, especially his tremor, but not quite yet back to how he was before I reduced the dose of benztropine. He is getting no dyskinesias but attributes some head fogginess to Comtan. He remains on Sinemet 25/250 five times daily. He has developed a shooting pain in his right buttock down his lateralthigh to his knee and no lower that was diagnosed as sciatica and treated with NSAIDs which have nothelped and more recently with a short course of prednisone which also did not help. He is doing stretching exercise which he demonstrated to me, that include touching his toes with his knees fully extended (that stretch his sciatic nerves). His gait is unchanged and is a combination of PD and sensory ataxia from diabetic polyneuropathy. Past Medical History Patient Active Problem List [...] Take 1 capsule by mouth daily. ??? citalopram (CELEXA) 20 mg Tablet Take 1 tablet by mouth daily. ??? lisinopril (PRINIVIL;ZESTRIL) 40 mg Tablet Take 1 tablet by mouth daily. ??? aspirin 81 mg EC tablet Take 81 mg by mouth daily. ??? simvastatin (ZOCOR) 20 mg tablet Take 20 mg by mouth nightly. ??? benztropine (COGENTIN) 1 mg tablet Take 0.5 mg by mouth 4 times daily. ??? [...] mg by mouth 2 times daily. ??? entacapone (COMTAN) 200 mg Tablet Take 1 tablet by mouth 4 times daily. 120 tablet 11 ??? ketorolac (TORADOL) 10 mg Tablet Take 1 tablet by mouth as needed. ??? ondansetron (ZOFRAN) 4 mg Tablet Take 1 tablet by mouth as needed. ??? sildenafil (VIAGRA) 50 mg tablet Take 50 mg by mouth as needed. ??? losartan (COZAAR) 100 mg tablet Take 100 mg by mouth daily. No current facility-administered medications for this visit. Drug Allergies and Adverse Drug Reactions No Known Allergies Family History Positive for hypertension and coronary artery disease. Only neurological history is an uncle, who had a tremor that was said to be due to his medications. 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 He smoked [...] noticeably anxious. Vital Signs: Recorded by the ADULT EDUCATION TEACHER as listed. Head: Atruamatic. Extremities: some LOM to hip external rotation; positive SLR on right at 45 degrees. Negative on left. Spine: he has flexed posture, especially neck [...] atrophy, fasciculations, myoclonus, or drift. He has an intermittent static > action Parkinsonian tremor of left > right hands which is less prominent than on the November 2015 exam. He has moderate bradykinesia worse on left arm/hand and leg. He has no limb dyskinesias today. Sensory: Legs have mildly reduced sensation to vibration below knees, worse on left with normal temperature sensation. Coordination: Ogtydx-ry-[id number] test and rapid rhythmic movements of upper and lower extremities show bradykinesia. Gait and station: Normal stance; gait is mildly off balance with combination of PD features and sensory ataxia. He shuffles less today and has less bradykinesia than on the November 2015 exam. Romberg positive. Can stand on one foot for only a few seconds. Tendon reflexes: biceps triceps BR patellar AJ Plantars Right 1 1 0 1 0 NE Left 1 1 0 1 0 NE RADIOLOGY AND LABORATORY Radiology: None new. Laboratory: None new. ASSESSMENT This 60-year-old man has had Parkinson's disease for 19 years, with fairly good control on Sinemet and Cogentin until his progression over the past several years with dose-related dyskinesias that limit future dosage escalation. His PD is clearly worse in the past year which requires changing his medication regimen. I remain concerned about his periods of confusion. The anticholinergic drug, benztropine, aggravates confusion and I plan to taper and stop it. After a 50% dose reduction in November 2015, his cognition is better. His PD motor symptoms (especially tremor) worsened after reducing benztropine and is somewhat better with the addition of low-dose Comtan. My plan is to increase Comtan to 200 mg four times daily and then to slowly taper benztropine by 0.5 mg each step until discontinued. His will call me in 2 weeks with a progress report. He has nocturnal myoclonus or REM behavior disorder for which clonazepam qhs initially helped. His daytime sleepiness, limb jerking while asleep, and loud snoring at night may represent obstructive sleep apnea and periodic movements of sleep. He also has a mild diabetic sensory polyneuropathy causing a growing element of sensory gait ataxia to that caused by his PD. I explained that, given the relatively mild effect of PD on his gait, that the polyneuropathy is the majority factor causing is imbalance. He needs to look at the ground and use a walking stick on uneven ground. His bilateral carpal tunnel syndromes are better. He is having right sciatica. After he demonstrated to me that he is doing exercising stretching his sciatic nerves, I suggested that he discontinue them (touching his toes with his knees fully extended). I told him he needs to stoop to belt picker things and not bend at the waist with his knees extended because that stretches and can further injure his sciatic nerve. We discussed my half-way from medical practice on February 09. I will ask Dr. Nevarez to follow him. PLAN 1. Discussion, explanation, question answering. 2. Continue current Sinemet 25/25o five times daily. 3. For the present, continue benztropine to 0.5 mg four times daily. 4. Increase Comtan 200 mg to one tablet 4 times daily. Rx e-faxed to [facility]. 5. to call me in 2 weeks with progress report. If he is tolerating the higher dose on Comtan, Iwill begin a slow taper of benztropine. 6. Avoid exercises that stretch his sciatic nerve (see above). 7. Revisit in 2-[address] Nevarez. Bakari Shields M.D. Neurology Department [address] [address] TEL: [phone] FAX: [phone] [email or web address] documented in this encounter Plan of Treatment Upcoming Encounters Date Type Specialty Care Team Description 03/20/2022 Office Visit Neurology Vishnu Hooper MD [facility] NEUROLOGY DEPT. [place] [address] (Wo rk) documented as of this encounter Visit Diagnoses Diagnosis Parkinson's disease Paralysis agitans Sensory ataxia Lack of coordination documented in this encounter Care Teams Thai Masseur Relationship Specialty Start Date End Date Griselda Stanley MD PCP - General 07/04/10 02/03/22 documented as of this encounter
--- OUTSIDE RECORDS SUMMARY | 2022-02-26 04:02 | XMS_ITS | Encounter Summary ---
:1955 Author Organization [facility] [address] Care Team Providers Name Role Phone Griselda Stanley MD Primary Care Provider Reason for Visit Reason Onset Date Comments Other 02/07/2016 Encounter Details Date Type Department Care Team Description 02/07/2016 Telephone Neurology at [facility] Bakari Shields MD Other [facility] [place] [address] NEUROLOGY DEPT. [phone] [place], [place] [address] (Wo rk) Social History Tobacco [...] encounter Miscellaneous Notes Telephone Encounter - Catie Sehlton RN - 02/28/2016 10:[address] Nevarez has no recommendations at this time as she hasn't seen the patient. He has been placed on a cancellation list. If the tremor gets too bad, he can be scheduled with the clinic attending. Telephone Encounter - Catie Shelton RN - 02/27/2016 11:35 AM EDT Call placed to Gwen and pt. They state that pt stopped the Comtan as pt was having terrible side effects. He's taking benztropine 0.5 mg QID. He was taking 1 mg QID until November of this year when it was decreased by 50% because of cognitive impairment. The cognitive impairment improved but his Parkinson's symptoms increased. He states that in the middle of the night, his tremor is so terrible his whole body is shaking. When he awakes in the morning prior to take his AM meds, his arms and legs are all shaking and his legs are incredibly weak. After he takes his first dose of benztropine, the tremor decreases slightly but not much. He continues with a bad tremor all day and wonders what to do about this. Telephone Encounter - Consuelo Milligan - 02/27/2016 9:24 AM EDT Gwen called in and sked for a call back from the nurse. Telephone Encounter - Re Li LPN - 02/07/2016 1:50 PM EDT Call placed to patient. Left message on answering machine that per Dr. Shields patient should discontinue Comtan/entacapone. Patient to call if any questions, direct phone line left and told to call by 3:30. If unable to call today can call and speak with Catie tomorrow. Telephone Encounter - Nadiya Mccormick - 02/07/2016 10:48 AM EDT Patient called regarding his new medication entacapone. He states that even with the change in the medications he is still having his tremor and other side effects, woozy feeling, dizzy and fatigue. Please call and advise. documented in this encounter Plan of Treatment Upcoming Encounters Date Type Specialty Care Team Description 03/20/2022 Office Visit Neurology Vishnu Hooper MD [facility] NEUROLOGY DEPT. [place], [place] [address] (Wo rk) documented as of this encounter Visit Diagnoses Not on filedocumented in this encounter Care Teams Dental Tech Relationship Specialty Start Date End Date Griselda Stanley MD PCP - General 07/04/10 02/03/22 documented as of this encounter
--- OUTSIDE RECORDS SUMMARY | 2022-02-26 04:02 | XMS_ITS | Encounter Summary ---
:1955 Author Organization [facility] [place] [address] Care Team Providers Name Role Phone Griselda Stanley MD Primary Care Provider Reason for Visit Reason Onset Date Comments Other 01/25/2016 Encounter Details Date Type Department Care Team Description 01/25/2016 Telephone Neurology at [facility] Bakari Shields MD Other [facility] [place] [address] NEUROLOGY DEPT. [phone] [place], [place] [address] (Wo rk) Social History Tobacco [...] Telephone Encounter - Catie Shelton RN - 02/02/2016 7:44 AM EDT Patient called stating that he has cut his medication back as instructed (entacapone). He states that he feels better with the decrease, still has the tremor but it has improved. He would like to stay on this dose for another week, at least, as he is going away this weekend. His PCP believes that he has arthritis in his hip and lower back. Will forward message on to Dr. Shields Telephone Encounter - Bakari Shields MD - 01/26/2016 12:44 PM EDT I phoned him to discuss. He cannot tolerate Comtan 200 mg four times daily but he could tolerate Comtan 200 mg one-half tab four times daily. I asked him to restore the original, smaller dosage and call back next week with a report. Telephone Encounter - Catie Shelton Shravan RN - 01/26/2016 8:16 AM EDT Call placed to pt to discuss medication use and side effects. He states that he's been taking carbidopa levodopa 25/250 mg 5 times/day, Comtan 200 mg QID and benztropine 0.5 mg QID. Since starting the Comtan, he's felt sick to his stomach everyday. He hasn't vomited but has felt like he could almost everyday. He also states that he feels weaker and isn't sleeping well at night, which makes him very tired during the day. He wonders if he should decrease the Comtan or try something different. Current Outpatient Prescriptions on File Prior to Visit Medication Sig Dispense Refill ??? entacapone (COMTAN) 200 mg Tablet Take 1 tablet by mouth 4 times daily. 120 tablet 11 ??? esomeprazole (NEXIUM) 40 mg Capsule, Delayed [...] facility-administered medications on file prior to visit. Telephone Encounter - Dhruv Carlisle - 01/25/2016 3:37 PM EDT Patient called regarding his medication. Patient stated that he recently switched to entacapone. Patient stated that since making this change he has been nauseated, weak, and tired. Patient requested acall back to discuss. documented in this encounter Plan of Treatment Upcoming Encounters Date Type Specialty Care Team Description 03/20/2022 Office Visit Neurology Visnhu Hooper MD [facility] NEUROLOGY DEPT. [place], [place] [address] (Wo rk) documented as of this encounter Visit Diagnoses Not on filedocumented in this encounter Care Teams Supervisor Graphite Relationship Specialty Start Date End Date Griselda Stanley MD PCP - General 07/04/10 02/03/22 documented as of this encounter
--- OUTSIDE RECORDS SUMMARY | 2022-02-26 04:02 | XMS_ITS | Encounter Summary ---
:1955 Author Organization [facility] [place] [address] Care Team Providers Name Role Phone Griselda Stanley MD Primary Care Provider Reason for Visit Reason Onset Date Comments Other 05/31/2016 Encounter Details Date Type Department Care Team Description 05/31/2016 Telephone Neurology at [facility] Pattie Nevarez, DO Other [facility] [place] [address] [place] [address] [phone] (Wo rk) Social History Tobacco Use Types [...] this encounter Miscellaneous Notes Telephone Encounter - Josette Schilling RN - 06/11/2016 8:53 AM EDT . Telephone Encounter - Fili Garces - 06/08/2016 8:28 AM EDT Caller: Gwen Su If not Pt / Relation to pt: Caller Contact Number: [phone] ext. [phone] Best time to reach pt back: Business hours. Reason for call: [facility] called because she and her have decided they would like to go aheadwith the deep brain stimulation and would like to get the process started. Gwen specifically asked that she be called back at work because the patient can't hear very well and can get things mixed up on the phone. Before 230 pm - Informed caller that if the nurse does not call back by the end of the day they willbe called Saturday, as neither Dr. Nevarez nor Josette are here today. [facility] was fine with this. Bestnumber for tomorrow am: Same as above. I spoke with Arlyn at work. She would like to know how to proceed to get all testing done and have the surgery in August. I will send on to Dr Sekou Pulido's litigation legal secretary as I believe they need to meet with Geeta Rees RN prior and am unsure of other testing. Appt with Dr Sapp is scheduled for August. Telephone Encounter - Keren Jo - 05/31/2016 9:06 AM EDT Images from the original note were not included. Caller: Arlyn If not Pt / Relation to pt: Caller Contact Number: [phone] Best time to reach pt back: Reason for call: Arlyn states that her has been recommended for the DBS surgery, and was told that she would be put in contact with some patients who have had this procedure done. As she and Timbo discussed this with Dr. Nevarez a few months ago, she just wanted to touch base and make sure this is still being arranged. Before 2:30pm - Informed caller that nurse will call back by the end of the day After 230 pm - Informed caller that if the nurse does not call back by the end of the day they will be called tomorrow AM - Best number for tomorrow am: Geeta Rees RN to Pattie Nevarez, DO ?? 8:33 AM I spoke with Arlyn yesterday and gave her a couple of names and numbers. All set. documented in this encounter Plan of Treatment Upcoming Encounters Date Type Specialty Care Team Description 03/20/2022 Office Visit Neurology Vishnu Hooper MD [facility] NEUROLOGY DEPT. [place], [place] [address] (Wo rk) documented as of this encounter Visit Diagnoses Not on filedocumented in this encounter Care Teams Electrical And Instrument Technician Relationship Specialty Start Date End Date Griselda Stanley MD PCP - General 07/04/10 02/03/22 documented as of this encounter
--- OUTSIDE RECORDS SUMMARY | 2022-02-26 04:02 | XMS_ITS | Encounter Summary ---
:1955 Author Organization [facility] [place] [address] Care Team Providers Name Role Phone Griselda Stanley MD Primary Care Provider Reason for Visit Reason Onset Date Comments Other 10/17/2016 Encounter Details Date Type Department Care Team Description 10/17/2016 Telephone Neurology at [facility] Giuseppe Cherry, DO Other [facility] [place] [address] [place] [address] [phone] (Wo rk) Social History Tobacco Use Types [...] Telephone Encounter - Josette Schilling RN - 10/17/2016 5:19 PM EST We have been going slowly - So he shouldn't have significant issues. He WILL have more tremors. And in general, it is NORMAL to have GOOD days and BAD days... Before he stopped, what dose was he on? Thanks - GIUSEPPE TAMEZMAN, DO If she is concerned about w/d, she could go to 1/2 tablet BID, for a few days, Then 1/2 tablet in the AM, for a few days. Then off. ?But I seriously doubt w/d. Thanks - MF Telephone Encounter - Josette Schilling RN - 10/17/2016 4:41 PM EST Candy calling with concerns about withdrawals from benztropine as Marcell has been taking this medication for years and yesterday was a bad day in that he had tremors and was weak and achy allover. She would like a list of withdrawal symptoms and would like to know when to call and what is urgent. It has been a week and she does not really want to restart it. She states that he noted that he is generally weaker and his legs feel spongy. It was expected that the tremor would increase. She will keep in touch. (This note started before recommendations below,not sure why it is appearing above.) documented in this encounter Plan of Treatment Upcoming Encounters Date Type Specialty Care Team Description 03/20/2022 Office Visit Neurology Vishnu Hooper MD [facility] NEUROLOGY DEPT. [place], [place] [address] (Wo rk) documented as of this encounter Visit Diagnoses Not on filedocumented in this encounter Care Teams Horse Exerciser Relationship Specialty Start Date End Date Griselda Stanley MD PCP - General 07/04/10 02/03/22 documented as of this encounter
--- OUTSIDE RECORDS SUMMARY | 2022-02-26 04:02 | XMS_ITS | Encounter Summary ---
:1955 Author Organization [facility] [place] [address] Care Team Providers Name Role Phone Griselda Stanley MD Primary Care Provider Reason for Visit Reason Comments Cognitive Problems neuropsych eval Psychiatric (Routine) - Closed Specialty Diagnoses / Procedures Referred By Contact Refer red To Contact Psychiatry Diagnoses Parkinson's disease Fidel Han PA [facility] Psych Neuro 5d Procedures PRO NEUROPSYCHOLOGICAL TESTING,PER HOUR BY CREDIT CONTROL ASSISTANT [facility] [place] [address] [place] [address] Phone: Referral ID Status Reason Start Date Expiration Date Visits V isits Requested Authorized [id number] Closed Consult, 07/24/2016 07/24/2017 1 1 Test & Treat Encounter Details Date Type Department Care Team Description 09/10/2016 Office Visit Psychiatry and Tyrone Gibbs, Parkinson disease; Behavioral Health at [facility] Depression, unspecified depression type; [facility]. [facility] [address] [place] [phone] Social History Tobacco Use Types Packs/Day Years [...] documented as of this encounter Progress Notes Tyrone Gibbs, PhD - 09/10/2016 8:30 AM EST CONFIDENTIAL NEUROPSYCHOLOGICAL EVALUATION Patient's Name: Timbo Cheney#: [id number] Date of Evaluation: 09/10/2016 Age: 60 years Date of : 1955 Occupation: On Disability Sex: Male Education: 12 years Lateral Dominance: Right-handed Referred By: Bola Chavez REASON FOR REFERRAL AND BACKGROUND: This is Mr. Su???s first [facility] neuropsychological evaluation. He was referred as a candidate for deep brain stimulation in the context of Parkinson???s disease (PD). As his history is well known to you, it will be only briefly reviewed for our files. Please refer to his medical records for additional information. Background information was obtained from an interview with Mr. Su, Ms. Ana Lilia Su (), and from a review of the available medical records. Mr. Su reported being diagnosed with PD 20 years ago, having initially experienced muscle rigidity and right upper extremity tremors. He indicated that symptoms are currently affecting all his extremities, have worsened over time, and show minimal benefit from medications. In term of his cognition,he stated that he has difficulty remembering names and conversations, requiring questions or comments to be repeated within a short time period, misplacing items, being highly distractible which makes it hard to stay on task, losing his train of thought, sometimes becoming confused, and noticing that tasks require more effort/attention. He also reported difficulties with multitasking, planning and organization, word finding, understanding what other are saying due to missing the major details of theconversation, slowed thinking, and excessive fatigue. Regarding motor and sensory skills, he indicated having problems with fine motor control bilaterally, writing secondary to tremors, gait due to weakness, shuffling, and having a forward tilt (became pronounced five years ago), hearing loss bilaterally, decreased sensitivity to smell, and numbness in all extremities. His concurred with the above problems and stated that they become more noticeable when he is fatigued or anxious. She reported that these problems began insidiously about two year ago and had improved when his carbidopa-levodopawas reduced (Summer 2015), though they have become progressive since his dosage was increased in March 2016. He denied any problems with autobiographical memory, impulse control, decision making, or spatial skills. He reported being able to complete most basic and instrumental activities of daily living without assistance. He indicated having marked difficulty fastening buttons and zippers due to tremors. He reported driving without difficulty and abstaining when his tremors and muscle weakness are pronounced. Medical History: Medical history is otherwise significant for diabetes, hypertension, and REM sleep behavior disorder. He indicated having sustained a head injury at the age of 16 when he struck a poletrying to catch a football, and experiencing intermittent reduced awareness for about 1.5 days; he indicated possibly losing consciousness and denied any subsequent cognitive changes. Psychiatric History: Mr. Su reported his current mood as ???well,?? though he experiences intermittent episodes of anxiety and excessive worry due to his PD. Appetite was described as good. He indicated sleeping about six hours per night, waking up tired, having REM sleep behavior disorder (diagnosed 10 years ago), and experiencing frequent daytime fatigue and thus takes naps. He reported that over the past five years, about once a week, he has seen figures and heard music when he wakes up in the middle of the night and is drowsy; he related this only happens at nighttime. He indicated having participated in psychotherapy for about six months when he was initially diagnosed with PD to help himcope with his medical condition, and sometimes attends a PD support group through [facility]. He stated that he seldom consumes alcohol and has no history of excessive alcohol use resulting in significant problems (e.g., legal, medical, social). He indicated that he quit smoking 36 years ago and having no history of illicit substance use. Family Medical and Psychiatric History: Family history is notable for possible PD, cancer, hypertension, heart disease, myocardial infarct, lung disease, and depression. Developmental, Educational and Occupational History: Mr. Su reported that his mother may have consumed alcohol during his gestation and that he was premature, weighting 4.5 pounds. He indicated reaching developmental milestones at appropriate ages. He reported having been left-handed, but was forced to write with his right hand due to societal beliefs. He completed high school, related having beenan average student, and denied any learning or attention problems, failing classes, or repetition ofgrades. 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 Medication Status: Mr. Su reported taking the following medications at the time of the evaluation: Omeprazole 40mg, benztropine 4mg, carbidopa-levodopa 25- 250mg, simvastatin 20mg, citalopram 20mg, Lisinopril 40mg, metoprolol 200mg, metformin 500mg, aspirin 80mg, vitamin D 1000 IU, ibuprofen 600mg as needed. BEHAVIORAL OBSERVATIONS: Mr. Su arrived on time for his appointment with his , was casually dressed and appropriately groomed, and wore his glasses throughout the evaluation. He was oriented to person, place, time, and situation but was unable to provide the date, though he benefited from multiple choices. He had a shuf fling gait and had a forward tilt of the trunk when ambulating. Hand tremors bilaterally were apparent while at rest and with movement. Spontaneous speech was intermittently slow and without overt wordfinding difficulty. At times directions had to be repeated and simplified. Thought processes were linear and coherent, and of normal content. He reported his mood as ???well,?? though affect was overall anxious and he tended to become easily overwhelmed when tasks were perceived as difficult. Although Mr. Su was cooperative with the interview and testing, scores on stand-alone and embedded validity measures were variable and testing was discontinued. Thus, the present results are of questionablevalidity and may be an underrepresentation of his current cognitive functioning. PROCEDURES ADMINISTERED: Clinical Interview; [employer] [Test of Premorbid Functioning (TOPF) and Word Choice (WCT)]; Carver Anxiety Inventory (CJ); Carver Depression Inventory-II (BDI-II); Eagle Naming Test (BNT); Brief Visuospatial Memory Test- Revised (BVMT-R); California Verbal Learning Test, Second Edition(CVLT-II); Comprehension of Complex Ideational Material (from BDAE; Eagle Diagnostic Aphasia Examination); Bernadette-Conde Executive Function System (D-KEFS, selected subtest); Finger Tapping Test (FTT);Grooved Pegboard Test; Lateral Dominance Examination; [place] Cognitive Assessment (MoCA); [id number] Memorization Test and Recognition Trial; Denison Making Test; TOMM; Kim Adult Intelligence Scale - 4th edition (WAIS-IV, selected subtests). Total time spent in testing, interpretation, and report Writin hours. TEST RESULTS: Note: Descriptors are based on appropriate normative data and the chart below and are adjusted basedon clinical judgment. The terms impaired and ???within normal limits?? are used when a more specific level of functioning cannot be determined. DESCRIPTOR Percentile Rank DESCRIPTOR Percentile Rank Very Superior 98 and above Borderline 2 to 9 Superior 91 to 97 Extremely Low 1.9 and below High Average 75 to 90 Mildly Impaired 0.38 to 1.9 Average 25 to 74 Moderately Impaired 0.13 to 0.37 Low Average 10 to 24 Severely Impaired 0.12 and below DESCRIPTOR Cognitive Screening: Raw Score MoCA: 16/30 Impaired General Intellectual Functioning: WAIS-IV: Age-Scaled Score Perceptual Reasoning Index: 75 Borderline Block Design 7 Low Average Matrix Reasoning 4 Borderline Standard Score Test of Premorbid Functionin Low Average Memory: California Verbal Learning Test-II: Raw Score Total Trials 1 to 5 22/80 (5-4-4-3-6) Borderline Short-Delay Free Recall 4/16 Borderline Short-Delay Cued Recall 4/16 Mildly Impaired Long-Delay Free Recall 2/16 Borderline Long-Delay Cued Recall 2/16 Moderately Impaired Recognition Hits 14/16 Average False Positive Errors 17 Moderately Impaired Discriminability 1.1 Borderline BVMT-R: Raw Score Total Learning (Trials 1-3) 6/36 (2-2-2) Impaired Delayed Recall 1/12 Impaired Recognition Hits 6/6 Within Normal Limits False Positive Errors 2 Impaired Discrimination Index 4 Low Average-Borderline Attention/Executive Function: WAIS-IV: Scaled Score (Max. Span) Digit Span 4 Borderline Forward 7 (5) Low Average Backward 6 (3) Low Average Sequencing 4 (3) Borderline Symbol Digit Modalities Test: Raw Score (Z-Score) Written 18 (-3.06) Moderately Impaired Oral 14 (-3.87) Severely Impaired Denison Making Test: Raw Score (T Score) Part A 72 secs., 0 errors (25) Mildly Impaired Part B Discontinued -- D-KEFS Color-Word Interference Test: Raw Score (scaled score) Color Naming 43 secs. (6), 0 errors Low Average Word Reading 40 secs. (2), 0 errors Mildly Impaired Inhibition 90 secs. (6), 0 errors Low Average Inhibition/Switching 178 secs. (1), 0 errors Moderately-Severely Impaired Language: Raw Score BDAE Sentence Comprehension: 10/12 Low Average Confrontation Naming (BNT): 56/60 Average Sensory-Motor: Grooved Pegboard Test: Raw Score Dominant Hand (Right) Discontinued Non-Dominant Hand Discontinued Finger Tapping Test: Mean Dominant Hand (Right) Discontinued Non-Dominant Hand Discontinued Other: Raw Score ACS Word Choice: 39/50 Below Expectation Reliable Digit Span: 7 Within Normal Limits Sal 15 & Recognition Combined: 30 Below Expectation TOMM Trial 1 47/50 Within Normal Limits TOMM Trial 2 50/50 Within Normal Limits CVLT-II, Forced Choice Recognition: 13/16 Below Expectation Mood: Raw Score Carver Depression Inventory - II: 29 Severe Carver Anxiety Inventory: 34 Severe REVIEW OF TEST RESULTS: Cognitive Screening: Overall performance on a brief cognitive screening measure (MoCA) was in the impaired range. Points were lost for executive function (made several errors alternating between numbers and letters); aspects of visuoconstruction skills (did not draw all the lines on a copy cube task; on a clock task he omitted numbers and hands were drawn incorrectly, indicating the wrong time); aspects of attention (unable to repeat digits backwards and only provided 2/5 correct answers on a mentalarithmetic task); language (omitted several words when having to repeat sentences and only provided nine correct words on a verbal fluency subtest); memory (did not recall any words and showed minimal benefit from multiple choice but not category cues); and he did not know the exact date (i.e., number). In contrast, his performance was intact for confrontational naming, vigilance, abstraction, and provided the correct month, year, day, place, and city. Intellectual Functioning: Core perceptual abilities fell in the borderline range. Baseline abilitieswere estimated to fall in the low average range based on a word reading test (TOPF) and demographic characteristics. This suggests current perceptual intellectual functioning at a level generally commensurate with baseline level of functioning. Learning and Memory: Learning of a 16-item word list over five trials was in the borderline range, with no significant benefit from repetition. He initially recalled five words and did not improve withsubsequent trials until the last trial, recalling six words. He independently applied a serial orderapproach during learning across learning trials (average range), relative to a more efficient semantic organization approach (low average range). Short- and long- delay recall was in the borderline range, with no benefit from category cues. Recognition discriminability was in the borderline range; he was able to correctly recognize 14/16 words (average range) while making 17 false positive errors (moderately impaired range), suggestive of a positive response bias. Notably, he also made numerous intrusion errors (raw total across all recall trials = 23). Learning and delayed recall of a display of six geometric figures was in the impaired range, with minimal recollection despite repeated presentation of the stimuli. Recognition discriminability was in the low average to borderline range; he recalled 6/6 figures and made two false positive errors (impaired range), suggesting a positive response bias. Overall, verbal and visual learning and memory were impaired and characterized by limited encoding and consolidation, as well as difficulty discriminating previously learned from new information across measures. Attention and Executive Functions: Immediate auditory attention was in the low average range for basic repetition of digits. Maintaining and manipulating information in working memory was in the low average range for repeating digits backwards and in the borderline range when having to repeat them in sequential order. Performance on a timed measure of written symbol-digit substitution fell in the moderately impaired range; his performance fell in the severely impaired range on the oral version of the test. Timed number sequencing was in the mildly impaired range with no errors. When task demands increased by requiring alternation between letter and number sequencing, he demonstrated marked difficulties completing the sample item, making several sequencing and set-loss errors; thus, the task was discontinued. Visual abstract reasoning was in the borderline range; he appeared overwhelmed by the detailed patterns, which may have impacted his performance. Rapid reading and naming for overlearned inf ormation (e.g., words and colors) was in the low average and mildly impaired range, respectively. Ability to inhibit a prepotent response was in the low average range, while ability to concurrently think flexibly and inhibit responses was in the moderately to severely impaired range. Overall, attention and executive functions were notable for variable working memory, processing speed, and inhibition with difficulties in cognitive flexibility. Language: Performance on a task of comprehending nuanced language in brief questions and short stories was in the low average range. Confrontation naming was in the average range, was without paraphasic errors or perceptual distortions, and showed some benefit from the provision of phonemic cues (2/4 c orrect). Overall, assessed expressive and receptive language abilities were within normal limits. Visuospatial/Visuoconstruction: Ability to reproduce two dimensional designs using blocks was in thelow average range. Overall visuospatial and visuoconstruction abilities were within normal limits. Sensory-Motor: Fine motor dexterity and simple motor speed could not be assessed due to the severityof his hand tremors and muscle rigidity. Testing was discontinued on the Grooved Pegboard Test when using his right (dominant) hand after the allotted time had ; he had completed slots andhad three drops. Questionnaire Measures: On self-report mood screening measures, Mr. Hirsch?s pattern of responses indicated a severe level of symptoms consistent with depression and anxiety at the time of the evaluation. He denied suicidal ideation, intent or plan. This suggests that his affective distress may be imp acting his cognitive functioning. SUMMARY AND RECOMMENDATIONS: The current findings should be interpreted with caution in light of variable effort as reflected in performance validity tests. With that caveat, Mr. Su had difficulty with verbal and visual learning and memory, visual abstract reasoning, cognitive flexibility, fine motor dexterity and simple speed, and had variable working memory, processing speed, and inhibition. He otherwise demonstrated intactperformance on measures of simple attention, language (expressive and receptive), and visuospatial and visuoconstruction. On questionnaire measures, he endorsed severe problems with depression and anxiety. Due to variable effort, it is difficult to ascertain the etiology of Mr. Hirsch?s cognitive concerns and his status as a candidate for DBS from a neuropsychological perspective. He has vascular risk factors (i.e., diabetes, hypertension) that may also be affecting his cognition. Most notably, he endor sed a severe level of affective distress and poor sleep, which are likely contributing to his cognitive concerns. We offer the following recommendations: ??? He would likely benefit from cognitive-behavioral therapy for his mood. You may wish to considera referral to psychiatry for medication management. ??? He is diagnosed with REM sleep behavior disorder but does not receive medical care. As he reported continued sleep disruption and fatigue, you may wish to consider whether his medication regimen can be modified to enhance treatment of this condition. ??? He reported general sleep difficulties. Having a more typical sleep schedule would likely be helpful in increasing opportunities for activities during the daytime. It may be helpful to review general sleep hygiene tips to help promote restful sleep, such as: ??? No caffeine 4-6 hours before bedtime. ??? No nicotine around bedtime or during nighttime awakenings. ??? A light snack but no heavy meal or food around bedtime. ??? No vigorous exercise 3-4 hours before bedtime ??? Minimize noise, light, and excessive temperature during sleep time. ??? Get out of bed if you can???t fall asleep or return to sleep within 10-20 minutes. ??? Maintain regular waking time. ??? No naps during the day. ??? Pacing activities, especially those that are mentally taxing may reduce his fatigue levels. He may also benefit from taking regular breaks throughout the day and completing most mentally demanding tasks at a time of the day he is likely to feel most well rested. ??? Attending to lifestyle issues such as regular exercise and healthy nutrition, all of which can contribute to optimal cognitive functioning and improve mood, may be helpful. ??? Reevaluation may be considered if his cognitive functioning declines after the above possible contributing factors (e.g., sleep, mood) have been addressed. Thank you for referring Mr. Su for neuropsychological evaluation. If you would like additional information, please do not hesitate to contact us at . Nino Calvillo, Ph.D. Tyrone Gibbs, Ph.D. Postdoctoral Fellow in Neuropsychology Clinical Neuropsychologist Licensed Psychologist Account Consultantindustrial management teacher A postdoctoral fellow in neuropsychology was involved in test administration, interpretation, and report development. The interpretation and integration of pertinent clinical information found in this report was directed and verified by the supervising neuropsychologist/licensed clinical psychologist. documented in this encounter Plan of Treatment Upcoming Encounters Date Type Specialty Care Team Description 03/20/2022 Office Visit Neurology Vishnu Hooper MD [facility] NEUROLOG[facility] DEPT. [place], [place] [address] (Wo rk) Scheduled Referrals Name Type Priority Associated Order Schedule Diagnoses Referral to Outpatient Routine Parkinson's Ordered: Neuropsychology Referral disease 07/24/2016 documented as of this encounter Visit Diagnoses Diagnosis Parkinson disease Paralysis agitans Depression, unspecified depression type Anxiety Anxiety state, unspecified documented in this encounter Care Teams Toolroom Clerk Relationship Specialty Start Date End Date Griselda Stanley MD PCP - General 07/04/10 02/03/22 documented as of this encounter
--- OUTSIDE RECORDS SUMMARY | 2022-02-26 04:02 | XMS_ITS | Encounter Summary ---
:1955 Author Organization [facility] [place] [address] Care Team Providers Name Role Phone Griselda Stanley MD Primary Care Provider Encounter Details Date Type Department Care Team Description 04/17/2016 Office Visit Neurology at [facility] Pattie Nevarez, Parkinson's disease; [facility] DO Abnormality of gait and mobility; [facility] Diabetic polyneuropathy asso ciated with type 2 diabetes mellitus [facility] [id number] [place] [address] [phone] Social History Tobacco Use Types Packs/Day Years [...] Sign Reading Time Taken Comments Blood Pressure 151/92 04/17/2016 10:08 AM EDT Pulse 65 04/17/2016 10:08 AM EDT Temperature - - Respiratory Rate - - Oxygen Saturation - - Inhaled Oxygen Concentration - - Weight 102.6 kg (226 lb 3.2 oz) 04/17/2016 10:08 AM EDT Height 182.9 cm (6') 04/17/2016 10:08 AM EDT Body Mass Index 30.68 04/17/2016 10:08 AM EDT documented in this encounter Progress Notes Pattie Nevarez, - 04/17/2016 10:00 AM EDT Movement Disorders Follow-up Note [facility] [place] Su is here for a follow-up, former patient of Dr. Shields. He said that he had tremors onthe left side initially about 19-20 yrs ago, intially diagnosed by his PCP, and confirmed by Dr. Shields. He has been on Sinemet, 25/250, 5 times daily. He has been on Benztropine 1 tablet 4 times daily- which was recently attempted to be weaned down as he was experiencing cognitive side effects (primarily short-term memory deficits). When the medicine was cut in half, his memory improved significantly, however he experienced a much worsened tremor, and felt that the tremor simply was not worth having back - therefore wanted to go back up on the Cogentin, 1 tablet 4 times daily. He has not entertained deeper instillation surgery in the past. He was told that his symptoms were not bad enough. Current Medications See updated medication list below. Outpatient Medications Prior to Visit Medication Sig Dispense Refill ??? benztropine (COGENTIN) 1 mg Tablet Take 1 tablet by mouth 4 times daily. 120 tablet 3 ??? ondansetron (ZOFRAN) 4 mg Tablet Take 1 tablet by mouth as needed. ??? citalopram (CELEXA) 20 mg Tablet Take 1 tablet by mouth daily. ??? lisinopril (PRINIVIL;ZESTRIL) 40 mg Tablet Take 1 tablet by mouth daily. ??? esomeprazole (NEXIUM) 40 mg Capsule, Delayed Release(E.C.) Take 1 capsule by mouth daily. ??? aspirin 81 mg [...] 1 tablet by mouth 4 times daily. (Patient not taking: Reported on 02/27/2016) 120 tablet 11 ??? ketorolac (TORADOL) 10 mg Tablet Take 1 tablet by mouth as needed. No facility-administered medications prior to visit. Drug Allergies and Adverse Drug Reactions See updated allergy/ADR list below. Comtan [entacapone] Review of Systems I reviewed 11 systems. Positive and relevant symptoms, in addition to those mentioned in HPI, include: As per above. All other systems were negative. PHYSICAL EXAMINATION General Physical Examination Appearance: The [...] Skin: Without rash or lesions Neurological Examination Mental status: The patient is alert, calm, oriented x 3, and exhibits normal language function, attention, concentration, and praxis. Short-term and long- term memory are normal. Fund of knowledge is normal for educational level. Cranial nerves: Pupils are symmetric, equal, round, and normally reactive to light. Visual ward are full in all ward. Eye movements are conjugate and full without nystagmus. Facial movements and facial sensation are normal. Hearing is normal bilaterally. Tongue and uvula are midline. Speech is clear and fluent. Shoulder shrug and head movements are normal. Motor: Limb muscles show no weakness, atrophy, fasciculations, myoclonus, or drift. He does have bradykinesia bilaterally, mildly worse in the left arm and left leg compared to the right side. There isno dyskinesia today. He has mild rigidity more prominent on the left side compared to the right. Sensory: Sensation intact to light touch Cerebellar: No cerebellar ataxia Gait and station: Romberg negative, he has mild shuffling of gait and mild impaired balance. Tendon reflexes: Intact symmetrically ASSESSMENT AND PLAN Timbo Su is a pleasant 60 y.o. 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 He is on Sinemet, 25/250, 5 times a daily, as well as Cogentin, 1 tablet of 1 mg, 4 times daily and attempts to control his tremor. Because of the high dose of anticholinergic, the patient is experiencing some short-term memory difficulty. On lowerdoses of the Cogentin, he experienced a reemergence of his tremor. I talked to him extensively aboutdeeper instillation surgery today. I feel that he is a very good candidate considering the length oftime of his Parkinson's disease, the tremor predominant nature of his Parkinson's, the good levodopa responsiveness, and the fact that he is experiencing side effects from his medications. We talked about the procedure, the neuropsychological testing required before hand, as well as the fact that we would need to get neuroimaging as well as a neurosurgical consultation. Mr. Su would like to talk to some other patients that have gone through [facility], and go from there. Unfortunately, I do not have anyother good medication options to help control his tremor. I explained that Cogentin is a very stronganticholinergic, and he is on relatively high doses. Without the Cogentin, he certainly will experience significant tremor once again. He will think about all that we have discussed today, I will get back in touch with me. I will otherwise see him back in 6 months. All questions were answered. The patient was told to call with any additional questions or concerns that should arise in the interim. Please excuse any errors, this document was typed using [employer] speech recognition software. Pattie Nevarez D.O. Movement Disorders Neurology Department [address] [address] TEL: [phone] FAX: [phone] [email or web address] documented in this encounter Plan of Treatment Upcoming Encounters Date Type Specialty Care Team Description 03/20/2022 Office Visit Neurology Vishnu Hooper MD [facility] NEUROLOGY DEPT. [place] [id number] (Wo rk) documented as of this encounter Visit Diagnoses Diagnosis Parkinson's disease Paralysis agitans Abnormality of gait and mobility Abnormality of gait Diabetic polyneuropathy associated with type 2 diabetes mellitus documented in this encounter Care Teams Tissue Recovery Technician Relationship Specialty Start Date End Date Griselda Stanley MD PCP - General 07/04/10 02/03/22 documented as of this encounter
--- OUTSIDE RECORDS SUMMARY | 2022-02-26 04:02 | XMS_ITS | Encounter Summary ---
:1955 Author Organization [facility] [place] [address] Care Team Providers Name Role Phone Griselda Stanley MD Primary Care Provider Reason for Visit Reason Onset Date Comments Results 12/12/2011 Encounter Details Date Type Department Care Team Description 12/12/2011 Telephone Neurology at [facility] Bakari Shields MD Results [facility] [place] [facility] [place] [id number] NEUROLOGY DEPT. [phone] [place], [place] [address] (Wo rk) Social History Tobacco [...] Telephone Encounter - Bakari Shields MD - 12/12/2011 9:02 AM EDT I phoned him to report that his vitamin D level was slightly low at 28. I recommended that he take supplementation with vitamin D3 1000 iu daily. documented in this encounter Plan of Treatment Upcoming Encounters Date Type Specialty Care Team Description 03/20/2022 Office Visit Neurology Vishnu Hooper MD [facility] NEUROLOGY DEPT. [place], [place] [address] (Wo rk) documented as of this encounter Visit Diagnoses Not on filedocumented in this encounter Care Teams Machine Sewer Relationship Specialty Start Date End Date Griselda Stanley MD PCP - General 07/04/10 02/03/22 documented as of this encounter
--- OUTSIDE RECORDS SUMMARY | 2022-02-26 04:02 | XMS_ITS | Encounter Summary ---
:1955 Author Organization [facility] [place] [address] Care Team Providers Name Role Phone Griselda Stanley MD Primary Care Provider Reason for Visit Reason Comments Cognitive Problems neuropsych eval Psychiatric (Routine) - Closed Specialty Diagnoses / Procedures Referred By Contact Refer red To Contact Psychiatry Diagnoses Parkinson's disease Pattie Nevarez DO [facility] Psychiatry 5d Procedures PRO NEUROPSYCHOLOGICAL TESTING,PER HOUR BY PUBLICITY PERSON [facility] [place] [address] [place] [address] Phone: Fax: Referral ID Status Reason Start Date Expiration Date Visits V isits Requested Authorized [id number] Closed Consult, 10/15/2016 10/15/2017 1 1 Test & Treat Encounter Details Date Type Department Care Team Description 12/24/2016 Office Visit Psychiatry and Tyrone Gibbs, PhD Memory deficit; Behavioral Health at PSYCHIATRY DEPT. Parkinson disease [facility] [address] [place] [id number] [phone] Social History Tobacco Use Types Packs/Day Years [...] encounter Progress Notes Tyrone Gibbs, PhD - 12/24/2016 8:30 AM EDT CONFIDENTIAL NEUROPSYCHOLOGICAL RE-EVALUATION Patient's Name: Timbo Cheney#: [id number] Date of Evaluation: 12/24/2016 Age: 61 years Date of : 1955 Occupation: On Disability Sex: Male Education: 12 years Lateral Dominance: Right-handed Referred By: Pattie Nevarez D.O. REASON FOR REFERRAL AND BACKGROUND: This is Timbo Su???s second [facility] neuropsychological evaluation. He was referred as a candidate for deep brain stimulation in the context of Parkinson???s disease (PD). As his history is well known to you, it will be only briefly reviewed for our files. Please refer to his medical records for additi onal information. Background information was obtained from an interview with Mr. Su, Ms. Ana Lilia Su (), and from a review of the available medical records, including his previous [facility] neuropsychological evaluation (September 10, 2016). Mr. Su completed a neuropsychological evaluation on September 10, 2016 was discontinued due to variable effort. At the time of that evaluation, he had reported concerns with remembering names and conversations, requiring questions or comments to be repeated within a short time period, misplacing items, being highly distractible which made it hard to stay on task, losing his train of thought, sometimes becoming confused, and noticing that tasks required more effort/attention. He also reported difficulties with multitasking, planning and organization, word finding, understanding what other are saying due to missing the major details of the conversation, slowed thinking, and excessive fatigue. Regarding motor and sensory skills, he indicated having problems with fine motor control bilaterally, writing secondary to tremors, gait due to weakness, shuffling, and having a forward tilt, hearing loss bilaterally, decreased sensitivity to smell, and numbness in all extremities. Currently, he and his reported that the majority of the aforementioned cognitive symptoms have improved, and that some have resolved (i.e., requiring questions or comments to be repeated within a short time period, misplacing items, losing his train of thought, being confused, planning and organization, understanding what other are saying due to missing the major details of the conversation) since titrating down his benztropine (was on 4mg, currently taking 1mg) which began in August 2016 (soon after his first neuropsychological evaluation). They reported that he is able to complete most basic and instrumental activities of daily living without assistance. He indicated having difficulty fastening buttons and zippers due to tremors, and that his has always managed their finances. They reported that he drives without difficulty and abstains when his tremors and muscle weakness are [...] consciousness and denied any subsequent cognitive changes. He reported that he was placed on antibiotics about one week ago after having been bitten by two ticks, and denied anysubsequent worsening of fatigue or cognitive concerns. Psychiatric History: Mr. Su reported his current mood as ???pretty good?? and that his appetite is also good. He indicated that his anxiety has significantly improved since being placed on buspirone in August 2016. They related that he has been more active since his last neuropsychological evaluat ion, doing yard work and driving his tractor. He stated that he sleeps better since being placed on melatonin about three months ago, goes to bed at 10 or 11pm, wakes up at 8am, and sometimes takes daytime naps due to fatigue. He reported no longer seeing figures or hearing music, which he previously had mentioned occurred when he would wake up in the middle of the night and was drowsy. He indicated having participated in psychotherapy for about six months after being diagnosed with PD to help him cope with his medical condition, and sometimes attends a PD support group through [facility]. 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 Medication Status: Mr. Su reported taking the following medications at the time of the evaluation: Metformin 1000mg, vitamin D 1000 IU, melatonin 6mg, omeprazole 40mg, buspirone 7.5mg, carbidopa-levodopa 25-250mg, benztropine 1mg, citalopram 40mg, simvastatin 20mg, Lisinopril 40mg, metoprolol 100mg, and aspirin 81mg. They indicated that he did not take his benztropine the day of the evaluation so that he can perform to the best of his abilities. BEHAVIORAL OBSERVATIONS: Mr. Su arrived on time for his appointment with his , was casually dressed and appropriately groomed, and wore his glasses throughout the evaluation. He was oriented to person, place, time, and situation with the exception of city, stating [place]. He had a shuffling gait, had a slight forward tilt of the trunk when ambulating, and required assistance standing from a seated position. Bilateralhand tremors were apparent while at rest and with movement; thus, sensory-motor tests were not administered. Spontaneous speech was slightly slow and without word finding difficulty. Receptive language appeared intact, and he was able to understand test instructions without difficulty. Thought processes were linear and coherent, and of normal content. He reported his mood as ???pretty good?? and affect was slightly anxious. Although Mr. Su was cooperative with the interview and testing, scores on performance validity measures were variable. Thus, the present results may underrepresent his current cognitive functioning. PROCEDURES ADMINISTERED: Clinical Interview; [employer] [Word Choice (WCT)]; Carver Anxiety Inventory (CJ); Carver Depression Inventory-II (BDI-II); Norlina Naming Test (BNT); Brief Visuospatial Memory Test- Revised, Form 3 (BVMT-R); [place] Verbal Learning Test, Second Edition, Alternate Form (CVLT-II); Comprehension of Complex Ideational Material (from BDAE; Norlina Diagnostic Aphasia Examination); Bernadette-Conde Executive Function System (D-KEFS, selected subtest); Dot Counting Test; Malhotra Visual Organization Test (HVOT); Lateral Dominance Examination; [place] Cognitive Assessment, Version 2 (MoCA); Dsb87-Tbqy Memorization Test and Recognition Trial; Palermo Making Test; Kim Adult Intelligence Scale -4th edition (WAIS-IV, selected subtests). Total time spent in testing, interpretation, and report writin hours 20 minutes. TEST RESULTS: Note: Descriptors are based on appropriate normative data and the chart below and are adjusted basedon clinical judgment. The terms impaired and ???within normal limits?? are used when a more specific level of functioning cannot be determined. Descriptors refer only to results of the current evaluation. DESCRIPTOR Percentile Rank DESCRIPTOR Percentile Rank Very Superior 98 and above Borderline 2 to 9 Superior 91 to 97 Extremely Low 1.9 and below High Average 75 to 90 Mildly Impaired 0.38 to 1.9 Average 25 to 74 Moderately Impaired 0.13 to 0.37 Low Average 10 to 24 Severely Impaired 0.12 and below 2016 DESCRIPTOR Cognitive Screening: Raw Score Raw Score MoCA: Impaired General Intellectual Functioning: WAIS-IV: Age-Scaled Score Age-Scaled Score Verbal Comprehension Index: -- 95 Average Similarities -- 10 Average Vocabulary -- 8 Average Standard Score Test of Premorbid Functionin -- -- Memory: . Kim Memory Scale-IV: Raw Score (Scaled Score) Logical Memory I -- 21 (8) Average Logical Memory II -- 16 (8) Average Logical Memory Recognition -- Average California Verbal Learning Test-II: Raw Score Raw Score Total Trials 1 to 5 22 (5-4-4-3-6) 31 (2-3-9-8-9) Low Average Short-Delay Free Recall 11/25 7/16 Average Short-Delay Cued Recall 11/25 9 Low Average Long-Delay Free Recall 09/27 0/16 Moderately Impaired Long-Delay Cued Recall 09/27 816 Low Average Recognition Hits 1416 Low Average False Positive Errors 17 16 Severely Impaired Discriminability 1.1 0.9 Borderline Forced Choice Recognition 1616 Within Expectation BVMT-R: Raw Score Raw Score Total Learning (Trials 1-3) (2-2-2) 8 (2-3-3) Impaired Delayed Recall 08/23 3 Impaired Recognition Hits 01/15 6 Within Normal Limits False Positive Errors 2 2 Impaired Discrimination Index 4 4 Low Average-Borderline Attention/Executive Function: WAIS-IV: Scaled Score (Max. Span) Scaled Score (Max. Span) Digit Span 4 8 Average Forward 7 (5) 10 (7) Average Backward 6 (3) 8 (4) Average Sequencing 4 (3) 6 (4) Low Average Symbol Digit Modalities Test: Raw Score (z-Score) Raw Score (z-Score) Written 18 (-3.06) 21 (-2.69) Mildly Impaired Oral 14 (-3.87) 17 (-3.55) Severely Impaired Palermo Making Test: Raw Score (T-Score) Raw Score (T-Score) Part A 72 secs., 0 errors (25) 72 secs., 0 errors (25) Mildly Impaired Part B Discontinued 280 secs., 3 errors (24) Mildly Impaired D-KEFS Verbal Fluency Test: Raw Score (Scaled Score) Letter Total Correct -- 26 (7) Low Average Category Total Correct -- 10 (1) Moderately-Severely Impaired Category Switching Total Correct -- 10 (7) Low Average Category Switching Accuracy -- 9 (8) Average D-KEFS Color-Word Interference: Raw Score (Scaled Score) Raw Score (Scaled Score) Color Naming 43 secs. (6), 0 errors 36 secs. (9), 0 errors Average Word Reading 40 secs. (2), 0 errors 27 secs. (9), 0 errors Average Inhibition 90 secs. (6), 0 errors 85 secs. (7), 1 error Low Average Inhibition/Switching 178 secs. (1), 0 errors 92 secs. (8), 1 error Average Wisconsin Card Sorting Test: -- Raw Score Categories (trials) -- 1 (128) Low Average-Borderline Perseverative Errors -- 26 Low Average Failure to Maintain Set -- 3 Low Average Language: Raw Score Raw Score BDAE Sentence Comprehension: 05/23 05/23 Low Average Cookie Theft: -- -- Within Normal Limits Visuospatial/Visuoconstruction: Raw Score BVMT-R, Copy: -- 06/23 Within Normal Limits Judgment of Line Orientation: -- 22 Low Average HVOT: -- Borderline Other: Raw Score Raw Score ACS Word Choice: 39 44 Below Expectation Dot Counting Test: -- 13 Within Expectation Reliable Digit Span: 7 8 Within Expectation Sal 15 & Recognition Combined: 5 12 Below Expectation Mood: Raw Score Raw Score Carver Depression Inventory - II: 29 10 Minimal Carver Anxiety Inventory: 34 20 Moderate REVIEW OF CURRENT TEST RESULTS: Cognitive Screening: Overall performance on a brief cognitive screening measure (MoCA) was in the impaired range. Points were lost for aspects of visuoconstruction skills (did not draw all the lines ema copy cube task; on a clock task omitted numbers, and hands indicated the wrong time); attention (se rial seven subtraction); language (omitted and inserted words when having to repeat a sentence, and only provided nine correct words on a verbal fluency subtest); memory (did not recall any words but showed benefit from category and multiple choice cues); and did not know the name of the city. In contrast, his performance was intact for confrontational naming, repeating digits forward and backward, vigilance, abstraction, and provided the correct date (i.e., number), month, year, day, and place. Intellectual Functioning: Core verbal abilities fell in the average range, generally commensurate with his baseline level of functioning as noted in his August 2016 evaluation. Learning and Memory: Immediate and delayed recall for contextual verbal information (i.e., stories) was in the average range, with good retention over time. Recognition memory for the information was in the average range. Learning of a 16-item word list over five trials was in the low average range, with benefit from repetition. He did not show preference for a semantic organization approach during learning across learning trials, relative to a serial order approach (both average range). Short- and long-delay recall was in the average and moderately impaired range (did not recall any words), respectively, with benefit from category cues. Recognition discriminability was in the borderline range; hewas able to correctly recognize 13/16 words (low average range) while making 16 false positive errors (severely impaired range), suggestive of a positive response bias. Notably, he also made numerous intrusion errors (raw total across all recall trials = 20). Learning and delayed recall of a display of six geometric figures was in the impaired range, though he was able to retain what he had encoded. Recognition discriminability was in the low average to borderline range; he recalled 6/6 figures and made two false positive errors (impaired range), suggesting a positive response bias. Overall, difficulties were noted with retrieval of noncontextual verbal and visual information, as well as difficulty discriminating previously learned from new information across these measures. Attention and Executive Functions: Immediate auditory attention was in the average range for basic repetition of digits. Maintaining and manipulating information in working memory was in the average range for repeating digits backwards and in the low average range when having to repeat them in sequential order. Performance on a timed measure of written symbol-digit substitution fell in the mildly impaired range; his performance fell in the severely impaired range on the oral version of the test. Timed number sequencing was in the mildly impaired range with no errors. When task demands increased by requiring alternation between letter and number sequencing, he scored in the mildly impaired range with three errors (two set-loss and one sequencing). On a task that required alternating between word categories, performance fell in the average range for switching accuracy. Verbal abstract reasoning was in the average range. Naming abilities and rapid reading for overlearned information (e.g., colors and words) was in the average range. Ability to inhibit a prepotent response was in the low average range, while ability to concurrently think flexibly and inhibit responses was in the average range. Darius unstructured problem solving task, 1/6 category sorts were completed (low average to borderline range), there were some perseverative errors (low average range), suggesting a fair ability to think flexibly when provided with examiner feedback, though he took longer than expected in developing a successful strategy initially (Trials to Complete First Category = 35, borderline range). Overall, attention and executive functions were notable for variable processing speed and cognitive flexibility, and difficulty with aspects of novel problem solving (i.e., took longer than expected to initially conceptualize task demands). Language: Performance on a task of comprehending nuanced language in brief questions and short stories was in the low average range. Vocabulary knowledge was in the average range. Expressive language abilities fell in the low average range for rapid word generation to letter cues and in the moderatelyto severely impaired range for semantic category cues. A brief written description of an illustratedscene was generally within normal limits, though his handwriting was remarkable for small print thatmade some words illegible, and some sentences were incomplete due to omitting words. Overall, difficulty was noted with semantic fluency. Visuospatial/Visuoconstruction: Copy of a display of six geometric figures was intact (06/23). Performance was in the low average range on a task assessing ability to stereotype finisher the orientation of lines. Ema visual organization test, performance fell in the borderline range. Overall, difficulty was noted with conceptual reorganization. Questionnaire Measures: On self-report mood screening measures, Mr. Su???s pattern of responses indicated a minimal level of symptoms consistent with depression and a moderate level of symptoms consistent with anxiety at the time of the evaluation. He denied suicidal ideation, intent or plan. This suggests that his affective distress may be impacting his cognitive functioning. SUMMARY AND RECOMMENDATIONS: The current findings should be interpreted with caution in light of variable effort as reflected in performance validity tests. With that caveat, Mr. Su had difficulty with retrieval of noncontextual verbal and visual information, as well as difficulty discriminating previously learned from new information across these measures, aspects of novel problem solving (initially conceptualizing task demands), semantic fluency, conceptual reorganization, psychomotor speed, and variable cognitive flexibility. Performance was within normal limits for contextual verbal memory, attention, aspect of executive functions (working memory, inhibition), verbal abstract reasoning, language (receptive, word knowledge, letter fluency), and aspects of visuospatial and visuoconstruction. On questionnaire measures, he endorsed minimal depression and moderate anxiety. Comparison to a prior evaluation in August 2016 should be interpreted with caution in light of previous and current variable effort. With that caveat, he did not show any declines but continues to demonstrate difficulties with visual learning and memory, discriminating previously learned from new information suggestive of a positive response bias on measures of noncontextual verbal and visual memory, and aspects of processing speed. Improvements were noted for encoding of noncontextual verbal information, attention, naming abilities and rapid reading for overlearned information, cognitive flexibility, mood, and on a cognitive screening test (MoCA score from 16 to 19). Despite somewhat variable effort during the prior and present evaluation, Mr. Su showed several areas of intact cognitive functioning and some amelioration since the evaluation earlier this year, including on performance validity tests (though we cannot completely rule out a contribution from practice effects). As previously mentioned in his August 2016 evaluation, in addition to PD he has vascular risk factors (i.e., diabetes, hypertension) that may be affecting his cognition. Although his moodhas improved, his endorsement continue to demonstrate anxiety that may also be contributing to his cognitive concerns. 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 Su would benefit from DBS surgery though implementation of post-surgical compensatory strategies for cognitive problems and assistance will be important. We offer the following recommendations: ??? He would likely benefit from cognitive-behavioral therapy for his mood. ??? Mr. Su showed good memory for information that was well organized beforehand (e.g., short story format). Thus, information should be provided to him in a clearly organized manner, or he should be encouraged to organize information in a personally meaningful way to help with later recall. He also benefitted from repetition of information. Thus, having him rehearse information to be remembered may also be helpful. Nonetheless, important information such as post-surgical care instructions, should be provided in a clearly organized written format. ??? He has difficulty discriminating been previously presented from new information, when the information is abstract or not inherently organized. Thus, his responses to yes/no questions about such information may not be reliable. Important information should be independently verified. Asking him openended rather than close ended questions may also be helpful (e.g., ???what did you buy at the store??? rather than ???did you buy milk, bread, and cheese??? ) ??? His processing speed was limited, even when manual responses were not required. He should therefore be mindful that it may take longer for him to complete tasks that he may initially estimate. Allowing himself ample time to complete tasks is therefore recommended. ??? Mr. Su showed some difficulty with problem solving, taking longer than expected to conceptualize task demands. He may therefore benefit from assistance when faced with novel and/or complex problems. ??? Pacing activities, especially those that are mentally taxing may help reduce his fatigue. He mayalso benefit from taking regular breaks throughout the day, and completing most mentally demanding tasks at a time of the day he is likely to feel most well rested. ??? Attending to lifestyle issues such as regular exercise and healthy nutrition, all of which can contribute to optimal cognitive functioning and improve mood, may be helpful. Thank you for referring Mr. Su for neuropsychological evaluation. If you would like additional information, please do not hesitate to contact us at . Nino Calvillo, Ph.D. Tyrone Gibbs, Ph.D., ABPP Postdoctoral Fellow in Neuropsychology Board Certified in Clinical Neuropsychology Label [employer] up A postdoctoral fellow in neuropsychology was involved [...] [facility] NE[facility] DE[facility]. [place] [address] (Wo rk) Scheduled Referrals Name Type Priority Associated Order Schedule Diagnoses Referral to Outpatient Routine Parkinson's Ordered: Neuropsychology Referral disease 10/15/2016 documented as of this encounter Visit Diagnoses Diagnosis Memory deficit Memory loss Parkinson disease Paralysis agitans documented in this encounter Care Teams Printed Circuit Boards Laminator Relationship Specialty Start Date End Date Griselda Stanley MD PCP - General 07/04/10 02/03/22 documented as of this encounter
--- OUTSIDE RECORDS SUMMARY | 2022-02-26 04:02 | XMS_ITS | Encounter Summary ---
:1955 Author Organization [facility] [address] Care Team Providers Name Role Phone Griselda Stanley MD Primary Care Provider Reason for Visit Reason Onset Date Comments Results 02/24/2014 [email or web address] Encounter Details Date Type Department Care Team Description 02/24/2014 Telephone Cardiology at Mahin Verma Jr., Results Juni SANTIAGO ([email or web address]) [address] [facility] [address] [facility] [place] A OSITO A [place], [place] [id number] [phone] Social History Tobacco Use Types Packs/Day Years [...] this encounter Miscellaneous Notes Telephone Encounter - Mahin Verma Jr., MD - 03/01/2014 7:54 AM EDT holter scanned- frequent VPCs, NSR documented in this encounter Plan of Treatment Upcoming Encounters Date Type Specialty Care Team Description 03/20/2022 Office Visit Neurology Vishnu Hooper MD [facility] NEUROLOGY DEPT. [place], [place] [address] (Wo rk) documented as of this encounter Visit Diagnoses Not on filedocumented in this encounter Care Teams Fabric Inspector Relationship Specialty Start Date End Date Griselda Stanley MD PCP - General 07/04/10 02/03/22 documented as of this encounter
--- OUTSIDE RECORDS SUMMARY | 2022-02-26 04:02 | XMS_ITS | Encounter Summary ---
:1955 Author Organization [facility] [place] [address] Care Team Providers Name Role Phone Griselda Stanley MD Primary Care Provider Encounter Details Date Type Department Care Team Description 05/01/2017 Telephone Neurosurgery at [facility] Irina Martinez, [facility] [place] [address] [facility] [phone] [place], [place] [address] (Wo rk) Social History Tobacco [...] this encounter Miscellaneous Notes Telephone Encounter - Irina Martinez APRN - 05/01/2017 10:24 AM EDT Gwen Su left message on NS line this morning inquiring about scheduling for her Timbo's DBS surgery with Dr. Sapp. Says they were expecting a call. Forwarding to medical assistant secretary, niecy Vergara. -BB documented in this encounter Plan of Treatment Upcoming Encounters Date Type Specialty Care Team Description 03/20/2022 Office Visit Neurology Vishnu Hooper MD [facility] NEUROLOGY DEPT. [place], [place] [address] (Wo rk) documented as of this encounter Visit Diagnoses Not on filedocumented in this encounter Care Teams Sales Marketing Coordinator Relationship Specialty Start Date End Date Griselda Stanley MD PCP - General 07/04/10 02/03/22 documented as of this encounter
--- OUTSIDE RECORDS SUMMARY | 2022-02-26 04:02 | XMS_ITS | Encounter Summary ---
:1955 Author Organization [facility] Address [facility] [place] [address] Care Team Providers Name Role Phone Griselda Stanley MD Primary Care Provider Reason for Referral Consultation (Routine) - Declined by Patient Specialty Diagnoses / Procedures Referred By Contact Refer red To Contact Sleep Center Diagnoses Sleep disorder Bakari Shields MD [facility] Sleep Medicine [facility] D R [address] [place] [address] [place] [address] Referral ID Status Reason Start Expiration Visits Visits Date Date Requested Authorized [id number] Declined by Consult 11/04/2014 11/04/2015 1 1 Patient Only Encounter Details Date Type Department Care Team Description 11/04/2014 Follow-Up Neurology at [facility] Bakari Shields MD Parkinson's disease; [facility] Sen sharron ataxia; Pierre JACKMAN Diabetic polyneuropathy; [place] [address] NEUROLOGY DEPT. Sleep disorder [phone] [place], [place] [address] (Wo rk) Social History [...] place to sleep or slept in a correction (including now)? Sex Assigned at Date Recorded Not on file documented as of this encounter Last Filed Vital Signs Vital Sign Reading Time Taken Comments Blood Pressure 136/75 11/04/2014 10:29 AM EDT Pulse 63 11/04/2014 10:29 AM EDT Temperature - - Respiratory Rate - - Oxygen Saturation - - Inhaled Oxygen Concentration - - Weight 104.7 kg (230 lb 12.8 11/04/2014 10:29 AM oz) EDT Height 188 cm (6' 2) 11/04/2014 10:29 AM per patient EDT Body Mass Index 29.63 11/04/2014 10:29 AM EDT documented in this encounter Progress Notes Bakari Shields MD - 11/04/2014 3:34 PM EDT Reason for Revisit Consultation I am seeing this 59-year-old man with left > right Parkinson's disease with onset 1996, and 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 HISTORY History of Present Illness Neurological History [phone] from my office notes: He had been [...] tunnel syndromes from his work in the [employer] were better with nocturnal splints. 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 From deconditioning and lack of exercise, his periods of shuffling and tremor have worsened. His PD symptoms in his legs got bad enough so that he had to [place] a medical [place] [facility] [place] from the [employer] in February 2011. He is not working [...] has been worse. On a visit to [place] over the summer, he tripped and fell [...] He had to be admitted overnight to [facility] the night before they drove to [place] because of his anxiety. An [place] was ruled out. He also had an echocardiogram. Another problem is jerking of limbs during sleep and loud snoring. He admits to daytime sleepiness. He had orthostatic hypotension with presyncopal collapses. Dr. Stanley discontinued his amlodipine andsince then, he has had no more such [...] while. He is under the care of school speech therapist. His explains his sleep movement disorder in which he kicks, punches, and screams in his sleep. His says that he has much anxiety and worries about things constantly. Past Medical History Patient Active Problem List Diagnosis Code ??? Parkinson's disease 332.0 ??? Hypertension 401.9 ??? Hyperlipidemia 272.4 ??? Diabetes mellitus 250.00 ??? Carpal tunnel syndrome, bilateral 354.0 ??? Sciatica of left side 724.3 ??? Abnormal LFTs (liver function tests) 790.6 ??? Cholelithiasis 574.20 ??? 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 Ankle fracture, left 824.8 ??? Fatigue 780.79 ??? Orthostatic hypotension 458.0 ??? Sensory ataxia 781.3 ??? Diabetic polyneuropathy 250.60, 357.2 Current Medications Current Outpatient Prescriptions Medication Sig Dispense Refill ??? lisinopril (PRINIVIL;ZESTRIL) 20 mg tablet Take 1 tablet by mouth daily. ??? citalopram (CELEXA) 10 mg tablet Take 1 tablet by mouth daily. ??? [...] tablet by mouth 4 times daily. ??? 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 He smoked cigarettes for a total of 13 years but stopped years ago. He does not use alcohol. He no longer rides a motorcycle. He helps his disabled mother. Review of Systems Positive and relevant symptoms, in addition to those mentioned in HPI, include: fatigue; anxiety; nopain. No weight change. PHYSICAL EXAMINATION General Physical Examination Appearance: The patient is a mildly parkinsonian-appearing man who appears of stated age who was examined in the presence of his . He appears well- nourished and comfortable. Vital Signs: Recorded by the LICENSED AIRCRAFT MAINTENANCE ENGINEER as listed. Head: Atruamatic. Neurological Examination Mental status: The patient is [...] on left with normal temperature sensation. Coordination: Whertc-ri-xrsb test and rapid rhythmic movements of upper and lower extremities show minimal bradykinesia. Gait and station: Normal stance; gait is mildly off balance with combination of mild PD features andmild sensory ataxia. Romberg slightly positive today. Can stand on one foot for only a few seconds. Tendon reflexes: biceps triceps BR patellar AJ Plantars Right 1 1 1 1 0 NE Left 1 1 1 1 0 NE RADIOLOGY AND LABORATORY Radiology: None new. Laboratory: None new. ASSESSMENT This 59-year-old man has had Parkinson's disease for 18 years, with fairly good control on Sinemet and Cogentin with gradual progression over the past several years and dose-related dyskinesias that will limit future dosage escalation. His bilateral carpal tunnel syndromes are better. His PD is stableand generally doing well so I will continue the same medications and doses. He has nocturnal myoclonus or REM behavior [...] use a walking stick on uneven ground. Today we discussed it again and I offered he could use a ski polewhich he might prefer. His orthostatic hypotension from PD, Sinemet, and his antihypertensive drugs improved after amlodipine was discontinued. We discussed his feet and shoes. It may be time for him to get molded shoes. He will discuss it withhis school speech therapist next week. PLAN 1. Discussion, explanation, question answering. 2. Continue current PD medications/doses. 3. Continue Vitamin D3 1000 units daily. 4. Use walking stick!. 5. Sleep consultation. 6. Discuss molded shoes with school speech therapist. 7. Revisit in 9 months. Bakari Shields M.D. Neurology Department [address] [address] TEL: [phone] FAX: [phone] [email or web address] documented in this encounter Plan of Treatment Upcoming Encounters Date Type Specialty Care Team Description 03/20/2022 Office Visit Neurology Vishnu Hooper MD [facility] DR NEUROLOGY DEPT. [place] [address] (Wo rk) Scheduled Referrals Name Type Priority Associated Diagnoses Order S chedule Referral to Sleep Outpatient Referral Routine Sleep disorder O rdered: Disorders Center 11/04/2014 documented as of this encounter Visit Diagnoses Diagnosis Parkinson's disease Paralysis agitans Sensory ataxia Lack of coordination Diabetic polyneuropathy Type II or unspecified type diabetes troy litus with neurological manifestations, not stated as uncontrolled Sleep disorder Sleep disturbance, unspecified documented in this encounter Care Teams Inverform Machine Operator Relationship Specialty Start Date End Date Griselda Stanley MD PCP - General 07/04/10 02/03/22 documented as of this encounter
--- OUTSIDE RECORDS SUMMARY | 2022-02-26 04:02 | XMS_ITS | Encounter Summary ---
:1955 Author Organization [facility] [place] [address] Care Team Providers Name Role Phone Griselda Stanley MD Primary Care Provider Encounter Details Date Type Department Care Team Description 06/10/2017 Hospital Encounter Radiology [place] [facility] [place] Sapp [facility] [place] [address] [place], [place] [address] (Wo rk) Social History Tobacco [...] Vishnu Hooper MD [facility] ER NEUROLOGY DEPT. [place], [place] [address] (Wo rk) documented as of this encounter Procedures Procedure Name Priority Date/Time Associated Diagnosis Comme nts CT HEAD WO CONTRAST Routine 06/10/2017 11:09 AM R esults for this (GENERIC) EDT procedure are i n the results section. documented in this encounter Results CT Head [...] above. Randall Sapp MD IMG CT ORDERABLES documented in this encounter Visit Diagnoses Not on filedocumented in this encounter Care Teams Tank Terminal Gauger Relationship Specialty Start Date End Date Griselda Stanley MD PCP - General 07/04/10 02/03/22 documented as of this encounter
--- OUTSIDE RECORDS SUMMARY | 2022-02-26 04:02 | XMS_ITS | Encounter Summary ---
:1955 Author Organization [facility] [place] [address] Care Team Providers Name Role Phone Griselda Stanley MD Primary Care Provider Reason for Visit Reason Onset Date Comments Results 01/16/2017 Encounter Details Date Type Department Care Team Description 01/16/2017 Telephone Psychiatry and Behavioral Tyrone Gibbs, PhD Results Health at [facility] PSYCHIATRY DEPT. [facility] [place] [address] [place] [address] [phone] (Wo rk) Social History Tobacco Use Types [...] Telephone Encounter - Tyrone Gibbs, PhD - 01/29/2017 10:25 AM EDT CONFIDENTIAL FEEDBACK NOTE ON NEUROPSYCHOLOGICAL EVALUATION Patient's Name: Timbo Cheney#: [id number] Date of Evaluation: 12/24/2016 Age: 61 years Date of : 1955 Occupation: On Disability Sex: Male Education: 12 years Lateral Dominance: Right-handed Referred By: Pattie Nevarez D.O. Date of Feedback: 01/16/2017 Mr. Su and his (Ms. Ana Lilia Su) participated in a 15 minute phone feedback session to discuss the results of his [facility] neuropsychological evaluation. Briefly, Mr. Su???s neuropsychological findings should be interpreted with caution in light of variable effort as reflected in performance validity tests. With that caveat, he demonstrated difficulties with retrieval of noncontextual verbal and visual information, as well as difficulty discriminating previously learned from new information across these measures, aspects of novel problem solving (initially conceptualizing task demands), seman tic fluency, conceptual reorganization, psychomotor speed, and variable cognitive flexibility. Performance was within normal limits for contextual verbal memory, attention, aspect of executive functions (working memory, inhibition), verbal abstract reasoning, language (receptive, word knowledge, letter fluency), and aspects of visuospatial and visuoconstruction. On questionnaire measures, he endorsedminimal depression and moderate anxiety. Findings and recommendations were reviewed within the context of variable effort. His current cognitive profile was compared to his prior evaluation on August 2016. They were notified that his patternof findings suggest that he would benefit from DBS surgery, though implementation of post-surgical co mpensatory strategies for cognitive problems and assistance would be important. Mr. Su and his expressed understanding of the information provided and that their questions were answered. The report is available in full in eDH. Thank you for referring Mr. Su for neuropsychological evaluation. If you would like additional information, please do not hesitate to contact us at . Nino Calvillo, Ph.D. Tyrone Gibbs, Ph.D., ABPP Postdoctoral Fellow in Neuropsychology Board Certified in Clinical Neuropsychology Evp Marketingbilingual customer service documented in this encounter Plan of Treatment Upcoming Encounters Date Type Specialty Care Team Description 03/20/2022 Office Visit Neurology Vishnu Hooper MD [facility] NEUROLOGY DEPT. [place], [place] [address] (Wo rk) documented as of this encounter Visit Diagnoses Not on filedocumented in this encounter Care Teams Airport Utility Worker Relationship Specialty Start Date End Date Griselda Stanley MD PCP - General 07/04/10 02/03/22 documented as of this encounter
--- OUTSIDE RECORDS SUMMARY | 2022-02-26 04:02 | XMS_ITS | Encounter Summary ---
:1955 Author Organization [facility] Address [facility] [place] [address] Care Team Providers Name Role Phone Griselda Stanley MD Primary Care Provider Reason for Visit Reason Onset Date Comments Other 12/19/2015 Reminder to reach ou t to PCP Encounter Details Date Type Department Care Team Description 12/19/2015 Telephone Neurology at [facility] Bakari Shields MD Other (Reminder to [facility] judy ch out to PCP) [place] [address] NEUROLOGY DEPT. [phone] [place], [place] [address] (Wo rk) Social History Tobacco [...] Telephone Encounter - Catie Shelton RN - 12/19/2015 11:[address] Shields-- ??I phoned Dr. Stanley's office (se is still away and back tomorrow) and then called the patient's phone and spoke to him. ? S/ ??He has been taking Sinemet 25/250 five daily (up from his previous four) for the past 10 days and remains on half the dose of benztropine. ? His confusion is much less (according to his son) and his tremor is doing OK on the higher Sinemet dose without worse dyskinesias. ? A/ ??His cognitive function is better and his PD motor symptoms are doing OK. ? P/ ??Continue current doses for another 2 weeks and then call with report. If he needs more, I may add Comtan. Telephone Encounter - Nataly Orellana - 12/19/2015 8:[address] Shields to reach out to Dr. Stanley, PCP regarding new medication changes. mentions Dr. Stanley is back in office today after being on vacation last week. documented in this encounter Plan of Treatment Upcoming Encounters Date Type Specialty Care Team Description 03/20/2022 Office Visit Neurology Vishnu Hooper MD [facility] NEUROLOGY DEPT. [place], [place] [address] (Wo rk) documented as of this encounter Visit Diagnoses Not on filedocumented in this encounter Care Teams Billing And Insurance Coordinator Relationship Specialty Start Date End Date Griselda Stanley MD PCP - General 07/04/10 02/03/22 documented as of this encounter
--- OUTSIDE RECORDS SUMMARY | 2022-02-26 04:02 | XMS_ITS | Encounter Summary ---
:1955 [place] [address] Care Team Providers Name Role Phone Griselda Stanley MD Primary Care Provider Encounter Details Date Type Department Care Team Description 03/06/2016 Telephone Neurology at [facility] Pattei Nevarez, [facility] [place] [address] [place] [address] [phone] (Wo rk) Social History Tobacco Use Types [...] this encounter Miscellaneous Notes Telephone Encounter - Re Li LPN - 03/06/2016 1:15 PM EDT Patient's Arlyn reports that Marcell's(Timbo)Cogentin one mg four times daily was decreased to 0.5 tab four times daily on 11/15/15 and Comtan 200 mg 0.5 tab was added. Arlyn reports that Marcell is having increased tremors in both upper and lower extremities and this is making his life terrible. Aristidesmick asked if Marcell could stop the Comtan and go back on Cogentin one mg four times daily. Per Dr. Nevarez patient may resume Cogentin one mg four times daily and d/c Comtan. New script e-faxed to [facility]. Message left for patient's Arlyn re: medication changes and new script. documented in this encounter Plan of Treatment Upcoming Encounters Date Type Specialty Care Team Description 03/20/2022 Office Visit Neurology Vishnu Hooper MD [facility] ER NEUROLOGY DEPT. [place], [place] [address] (Wo rk) documented as of this encounter Visit Diagnoses Not on filedocumented in this encounter Care Teams Bobbin Painter Relationship Specialty Start Date End Date Griselda Stanley MD PCP - General 07/04/10 02/03/22 documented as of this encounter
--- OUTSIDE RECORDS SUMMARY | 2022-02-26 04:02 | XMS_ITS | Encounter Summary ---
:1955 Author Organization [facility] [place] [address] Care Team Providers Name Role Phone Griselda Stanley MD Primary Care Provider Reason for Visit Reason Comments Medication Refill Encounter Details Date Type Department Care Team Description 07/18/2016 Refill [place]rology at [facility] Pattie Nevarez, [place] [address] [place] [address] [phone] (Wo rk) Social History Tobacco Use Types [...] MD [facility] NEUROLOGY DEPT. [place], [place] [address] (Wo rk) documented as of this encounter Visit Diagnoses Not on filedocumented in this encounter Care Teams Hydraulic Controls Technician Relationship Specialty Start Date End Date Griselda Stanley MD PCP - General 07/04/10 02/03/22 documented as of this encounter
--- OUTSIDE RECORDS SUMMARY | 2022-02-26 04:02 | XMS_ITS | Encounter Summary ---
:1955 Author Organization [facility] [place] [address] Care Team Providers Name Role Phone Griselda Stanley MD Primary Care Provider Encounter Details Date Type Department Care Team Description 06/10/2017 Hospital Encounter Radiology at [facility] Randall Sapp [facility] [place] [address] [place], [place] [address] (Wo rk) Social History Tobacco [...] Vishnu Hooper MD [facility] ER NEUROLOGY DEPT. [place], [place] [address] (Wo rk) documented as of this encounter Procedures Procedure Name Priority Date/Time Associated Diagnosis Comme nts MRI BRAIN WO Routine 06/10/2017 10:27 AM Results for this CONTRAST EDT procedure are i n the results section. documented in this encounter Results MRI Brain wo Contrast (06/10/2017 10:27 AM [...] on filedocumented in this encounter Care Teams Mowing Machine Operator Relationship Specialty Start Date End Date Griselda Stanley MD PCP - General 07/04/10 02/03/22 documented as of this encounter
--- OUTSIDE RECORDS SUMMARY | 2022-02-26 04:02 | XMS_ITS | Encounter Summary ---
:1955 Author Organization [facility] Address [facility] [place] [address] Care Team Providers Name Role Phone Griselda Stanley MD Primary Care Provider Encounter Details Date Type Department Care Team Description 12/11/2011 Follow-Up Neurology at [facility] Bakari Shields MD Parkinson's disease; [facility] [place] [address] NEUROLOGY DEPT. [phone] [place] [id number] (Wo rk) Social History Tobacco Use Types [...] Sign Reading Time Taken Comments Blood Pressure 144/68 12/11/2011 8:48 AM EDT Pulse 68 12/11/2011 8:48 AM EDT Temperature - - Respiratory Rate - - Oxygen Saturation - - Inhaled Oxygen Concentration - - Weight 108.4 kg (239 lb) 12/11/2011 8:48 AM EDT Height 182.9 cm (6') 12/11/2011 8:48 AM EDT Body Mass Index 32.41 12/11/2011 8:48 AM EDT documented in this encounter Progress Notes Bakari Shields MD - 12/11/2011 12:52 PM EDT Reason for Revisit Consultation I am seeing this 56-year-old man with left > right Parkinson's disease with onset 1996, who I have followed since 1997, and who I last examined on August 24, 2010. HISTORY History of Present Illness Neurological History [id number] He had been under very good control [...] tunnel syndromes from his work in the [employer] were better with nocturnal splints. 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 From deconditioningand lack of exercise, his periods of shuffling and tremor have worsened. His PD symptoms in his legs got bad enough so that he had to take a medical care home from the [employer] February 2011. He is not working at all. He reports that his upper extremities are doing well but he continues to have leg problems, especially involving his left ankle that was severely fractured two years ago. His legs feel weak when he stands and they get cramps when he sits in a car. His feet burn,tingle, sweat, and can get numb. His left medial ankle is sore and painful. A recent xray of his ankle show healing as good as could be expected with his type of fracture. His BP, cholesterol and DM are doing well. He has lost 14 lbs to his present weight of 239 lbs. Past Medical History Patient Active Problem List Diagnoses Code ??? Parkinson's disease 332.0AB ??? Hypertension 401.9AJ ??? Hyperlipidemia 272.4S ??? Diabetes mellitus 250.00A ??? Carpal tunnel syndrome, bilateral 354.0T ??? Sciatica of left side 724.3W ??? Abnormal LFTs (liver function tests) 790.6CU ??? Cholelithiasis 574.20D ??? REM behavioral disorder 327.42D ??? Ankle fracture, left 824.8AE ??? Fatigue 780.79B Current Medications Current outpatient prescriptions Medication Sig Dispense Refill ??? simvastatin (ZOCOR) 20 mg tablet Take [...] mg by mouth 2 times daily. ??? clonAZEpam (KLONOPIN) 0.5 mg tablet Take 0.5 mg by mouth. At bedtime a few nights per week. Drug Allergies and Adverse Drug Reactions None Family History Positive for hypertension and coronary artery disease. Only neurological history is an uncle, who had a tremor that was said to be due to his medications. 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 He smoked cigarettes for a total of 13 years but stopped years ago. He does not use alcohol. He no longer rides a motorcycle. Review of Systems Positive and relevant symptoms, in addition to those mentioned in HPI, include: fatigue. No pain except in left ankle. PHYSICAL EXAMINATION General Physical Examination Appearance: The patient is a healthy-appearing man who appears of stated age who was examined in thepresence of his . He appears well-nourished and comfortable. Vital Signs: Recorded by the nurse as listed above. Head: Atruamatic. Extremities: Normal limb color and temperature; no pedal or ankle edema. Discolored and slight tender left medial ankle fracture site. Neurological Examination Mental status: The patient is [...] of outstretched hands. He has mild bradykinesia bilaterally. He has a few limb dyskinesias today. Sensory: Legs have reduced sensation to vibration below knees, worse on left with normal temperaturesensation. Coordination: [id number] test and rapid rhythmic movements of upper and lower extremities show minimal bradykinesia. Gait and station: Normal stance; gait is mildly off balance with combination of mild PD features andmild sensory ataxia. Romberg negative. Tendon reflexes: biceps triceps BR patellar AJ Plantars Right 1 1 1 1 0 NE Left 1 1 1 1 0 NE RADIOLOGY AND LABORATORY Radiology: None new. Laboratory: None new. ASSESSMENT This 56-year-old man has had Parkinson's disease for 15 years, with formerly good control on Sinemetand Cogentin with gradual progression over the past two years and a few dyskinesias that will limit future dosage escalation. His bilateral carpal tunnel syndromes are better. He has nocturnal myoclonus or REM behavior disorder for which he can take clonazepam qhs. He also has developed a mild diabetic sensory polyneuropathy adding an element of sensory gait ataxia to that caused by his PD. His fatigue may be due to his PD plus side effects of his medications. He needs a more active exercise regimen and to be screen for vitamin D deficiency. PLAN 1. Discussion, explanation, question answering, reassurance. 2. Continue current medications. 3. Enroll in Parkinson's Disease Wellness Program. 4. Vitamin D level today. I will call and advise replacement dose if low as I suspect. 5. Revisit in 9 months. Bakari Shields M.D. Neurology Department [address] [address] TEL: [phone] FAX: [phone] [email or web address] documented in this encounter Plan of Treatment Upcoming Encounters Date Type Specialty Care Team Description 03/20/2022 Office Visit Neurology Vishnu Hooper MD [facility] ER DR NEUROLOGY DEPT. [place], [place] [address] (Wo rk) documented as of this encounter Procedures Procedure Name Priority Date/Time Associated Diagnosis Comme nts VITAMIN D, Routine 12/11/2011 9:30 AM Parkinson's disease Re sults for this 25-HYDROXY EDT procedure are i n the results section. documented in this encounter Results (ABNORMAL) VIT D Total Evaluation (12/11/2011 9:30 AM EDT) P athologist Signature 25-OH Vit D 28 (L) 30 - 100 CERNER Total ng/mL [facility] Comment: Deficient <10 ng/mL Insufficient 10 to 29 ng/mL Sufficient 30 to 100 ng/mL Potential Intoxication >100 ng/mL According to the US National Osteoporosi s Foundation, Vitamin D concentrations >30 ng/mL are sufficient to protect bone health. ??The National Kidney Foundation has similarly stated that pat ients with Vitamin D concentrations <30ng/mL should be considered to be insu fficient or deficient. http://www.kidney.org/professionals/KDOQ I/guidelines_bone/Guide7.htm http://www.nof.org/professionals/clinica l-guidelines The [employer] iSYS Vitamin D Immunoassay detec ts both 25-OH Vitamin D2 and 25-OH Vitamin D3, but only a total Vitamin D c oncentration is reported. Please note, the performing location for this test has changed. ??As of 09/18/2011 the Vitamin D Total, 25 Mora xy assays are being analyzed by the [facility] Chemistry Laboratory. ??There is NO CHANGE in units. ??Please contact the chemistry laboratory at [phone] with ques tions. Specimen Anatomical Collection Method Collection Time Receive d Time (Source) Location / / Volume Laterality Blood specimen 12/11/2011 9:30 AM 05/01/2 012 9:35 (specimen) EDT AM EDT Resulting Agency Comment Spec In Lab Bakari Shields MD CHEMISTRY ORDERABLES Performing Organization Address City/State/ZIP Code Phon e Number [place] [id number] [facility] documented in this encounter Visit Diagnoses Diagnosis Parkinson's disease Paralysis agitans Diabetes mellitus Type II or unspecified type diabetes troy litus without mention of complication, not stated as uncontrolled documented in this encounter Care Teams Cargo Agent Relationship Specialty Start Date End Date Griselda Stanley MD PCP - General 07/04/10 02/03/22 documented as of this encounter
--- OUTSIDE RECORDS SUMMARY | 2022-02-26 04:02 | XMS_ITS | Encounter Summary ---
:1955 Author Organization [facility] [place] [address] Care Team Providers Name Role Phone Griselda Stanley MD Primary Care Provider Reason for Visit Reason Onset Date Comments Other 06/18/2016 Encounter Details Date Type Department Care Team Description 06/18/2016 Telephone Neurology at [facility] Pattie Nevarez, DO Other [facility] D [facility] [place] [address] [place] [address] [phone] (Wo rk) Social History Tobacco Use Types [...] Telephone Encounter - Josette Schilling RN - 06/18/2016 5:28 PM EST I called and spoke with Vaishnavi. Advised in scheduled appts. They did not know. Would like to ask questions of Geeta prior and also if sooner consult for DBS available, would like to move that up. Telephone Encounter - Dhruv Carlisle - 06/18/2016 9:01 AM EST Caller: Arlyn Su If not Pt / Relation to pt: pt's Caller Contact Number: [phone] Best time to reach pt back: any Reason for call: Patient's stated that she is calling to speak with Josette to follow up on a conversation from last week. She requested a call back. Before 2:30pm - Informed caller that nurse will call back by the end of the day After 230 pm - Informed caller that if the nurse does not call back by the end of the day they will be called tomorrow AM - Best number for tomorrow am: documented in this encounter Plan of Treatment Upcoming Encounters Date Type Specialty Care Team Description 03/20/2022 Office Visit Neurology Vishnu Hooper MD [facility] NEUROLOGY DEPT. [place], [place] [address] (Wo rk) documented as of this encounter Visit Diagnoses Not on filedocumented in this encounter Care Teams Elevator Constructor Hydraulic Relationship Specialty Start Date End Date Griselda Stanley MD PCP - General 07/04/10 02/03/22 documented as of this encounter
--- OUTSIDE RECORDS SUMMARY | 2022-02-26 04:02 | XMS_ITS | Encounter Summary ---
:1955 Author Organization [facility] [place] [address] Care Team Providers Name Role Phone Griselda Stanley MD Primary Care Provider Reason for Visit Reason Onset Date Comments Other 10/15/2016 Encounter Details Date Type Department Care Team Description 10/15/2016 Telephone Neurology at [facility] Pattie Nevarez, DO Other [facility] D [facility] [place] [address] [place] [address] [phone] (Wo rk) Social History Tobacco Use Types [...] this encounter Miscellaneous Notes Addendum Note - Josette Phoenix RN - 10/17/2016 4:41 PM EST Addended by: JOSETTE PHOENIX on: 10/17/2016 04:41 PM Modules accepted: Orders Telephone Encounter - Josette Phoenix RN - 10/15/2016 4:00 PM EST Spoke with Arlyn she has already scheduled the neuro psych in December. States that they called her and noted they have special slots for DBS but really did not know that was what the referral was for until she mentioned it. She is very concerned that Dr Nevarez is leaving and that the same thing happened last year with thetransition from Dr Shields to Dr Nevarez as they were also tapering off medication and she felt like they had to start all over again. Enc that I will have Dr Hooper's engineering secretary contact her to schedule a February appt as Dr Nevarez suggested that was soon enough for follow up. Enc that I am here to contact with any questions or concerns in the interim. Telephone Encounter - Rebecca Bautista - 10/15/2016 3:43 PM EST Caller: Timbo Best time to reach caller: After 230 pm (if not red arrow message) - Informed caller that if the nurse does not call back by the end of the day they will be called tomorrow AM Best number to reach caller: [phone] Reason for call: patient's called Her has been scheduled for the memory 12/24/2016. Whowill be doing Follow up since Dr Nevarez will be gone? Who do they speak to when Dr Nevarez is gone? I is a concern they have about her care after Dr Nevarez leaves. Please call to discuss documented in this encounter Plan of Treatment Upcoming Encounters Date Type Specialty Care Team Description 03/20/2022 Office Visit Neurology Vishnu Hooper MD [facility] ER NEUROLOGY DEPT. [place], [place] [address] (Wo rk) documented as of this encounter Visit Diagnoses Not on filedocumented in this encounter Care Teams Mine Utility Operator Relationship Specialty Start Date End Date Griselda Stanley MD PCP - General 07/04/10 02/03/22 documented as of this encounter
--- OUTSIDE RECORDS SUMMARY | 2022-02-26 04:02 | XMS_ITS | Encounter Summary ---
:1955 Author Organization [facility] [place] [address] Care Team Providers Name Role Phone Griselda Stanley MD Primary Care Provider Reason for Visit Reason Onset Date Comments Other 01/02/2016 new medication for t remor Encounter Details Date Type Department Care Team Description 01/02/2016 Telephone Neurology at [facility] Bakari Shields MD Other (new medication [facility] for tremor) [place] [address] NEUROLOGY DEPT. [phone] [place] [id number] (Wo rk) Social History Tobacco Use Types [...] Encounter - Catie Shelton RN - 01/02/2016 11:15 AM EDT See Telephone Note dated 12/04. Telephone Encounter - Dhruv Carlisle - 01/02/2016 8:22 AM EDT Patient's called about a new medication for the patient's tremor. Patient's stated that Dr. Shields was going to speak with the patient's PCP about starting up a new medication. Patient's wifestated that the patient still has not been able to start this new medication as his PCP has been on vacation. Patient's requested a call to discuss. documented in this encounter Plan of Treatment Upcoming Encounters Date Type Specialty Care Team Description 03/20/2022 Office Visit Neurology Vishnu Hooper MD [facility] ER NEUROLOGY DEPT. [place], [place] [address] (Wo rk) documented as of this encounter Visit Diagnoses Not on filedocumented in this encounter Care Teams Graphics Software Engineer Relationship Specialty Start Date End Date Griselda Stanley MD PCP - General 07/04/10 02/03/22 documented as of this encounter
--- OUTSIDE RECORDS SUMMARY | 2022-02-26 04:02 | XMS_ITS | Encounter Summary ---
:1955 Author Organization [place] [address] Care Team Providers Name Role Phone Griselda Stanley MD Primary Care Provider Reason for Visit Reason Onset Date Comments Other 02/01/2016 Encounter Details Date Type Department Care Team Description 02/01/2016 Telephone Neurology at [facility] Bakari Shields MD Other [facility] [place] [address] NEUROLOGY DEPT. [phone] [place], [place] [address] (Wo rk) Social History Tobacco [...] Encounter - Catie Shelton RN - 02/02/2016 7:45 AM EDT See Telephone Note dated 01/25/2016. Telephone Encounter - Nadiya Mccormick - 02/01/2016 3:34 PM EDT Patient called stating that he has [...] arthritis in his hip and lower back. Please call and advise. documented in this encounter Plan of Treatment Upcoming Encounters Date Type Specialty Care Team Description 03/20/2022 Office Visit Neurology Vishnu Hooper MD [facility] ER NEUROLOGY DEPT. [place], [place] [address] (Wo rk) documented as of this encounter Visit Diagnoses Not on filedocumented in this encounter Care Teams Dealership General Manager Relationship Specialty Start Date End Date Griselda Stanley MD PCP - General 07/04/10 02/03/22 documented as of this encounter
--- OUTSIDE RECORDS SUMMARY | 2022-02-26 04:02 | XMS_ITS | Encounter Summary ---
:1955 Author Organization [facility] [place] [address] Care Team Providers Name Role Phone Griselda Stanley MD Primary Care Provider Reason for Visit Reason Onset Date Comments Other 03/28/2017 Encounter Details Date Type Department Care Team Description 03/28/2017 Telephone Neurology at [facility] Vishnu Hooper MD Other [facility] [place] [address] NEUROLOGY DEPT. [phone] [place], [place] [address] (Wo rk) Social History Tobacco [...] this encounter Miscellaneous Notes Telephone Encounter - Lynn Alejandra RN - 03/29/2017 3:21 PM EDT See patient email. Telephone Encounter - Jessie Hwang - 03/28/2017 11:38 AM EDT Caller: Maci If not Pt / Relation to pt: spouse Best time to reach caller: 8-5 Before 2:30pm - Informed caller that nurse will call back by the end of the day Best number to reach caller: [phone] Reason for call: Patient's called to discuss with Dr. Hooper the treatment of the DBS surgery. They were told that they would be spoken to in a month but have not heard anything. Please Call and advise documented in this encounter Plan of Treatment Upcoming Encounters Date Type Specialty Care Team Description 03/20/2022 Office Visit Neurology Vishnu Hooper MD [facility] ER NEUROLOGY DEPT. [place], [place] [address] (Wo rk) documented as of this encounter Visit Diagnoses Not on filedocumented in this encounter Care Teams Community Health Promoter Relationship Specialty Start Date End Date Griselda Stanley MD PCP - General 07/04/10 02/03/22 documented as of this encounter
--- OUTSIDE RECORDS SUMMARY | 2022-02-26 04:02 | XMS_ITS | Encounter Summary ---
:1955 [place] [address] Care Team Providers Name Role Phone Griselda Stanley MD Primary Care Provider Encounter Details Date Type Department Care Team Description 09/12/2016 Office Visit Neurology at [facility] [place] Giuseppe Cherry DO Parkinson's disease [facility] [place] [address] [place] [address] [phone] (Wo rk) Social History Tobacco Use Types [...] Sign Reading Time Taken Comments Blood Pressure 183/83 09/12/2016 9:59 AM EST Pulse 62 09/12/2016 9:59 AM EST Temperature - - Respiratory Rate - - Oxygen Saturation - - Inhaled Oxygen Concentration - - Weight 101.6 kg (224 lb) 09/12/2016 9:59 AM EST Height 182.9 cm (6') 09/12/2016 9:59 AM EST Body Mass Index 30.38 09/12/2016 9:59 AM EST documented in this encounter Progress Notes Giuseppe Cherry, - 09/12/2016 10:00 AM EST UPDRS III Motor OFF Score ON Score III. MOTOR EXAMINATION 18. Speech 0 = Normal. 1 = Slight loss of expression, diction and/or volume. 2 = Monotone, slurred but understandable; moderately impaired. 3 = Marked impairment, difficult to understand. 4 = Unintelligible. 19. Facial Expression (head, upper and lower extremities) 0 = Normal. 1 = Minimal hypomimia, could be normal Poker Face. 2 = Slight but definitely abnormal diminution of facial expression 3 = Moderate hypomimia; lips parted some of the time. 4 = Masked or fixed facies with severe or complete loss of facial expression; lips parted 1/4 inch or more. 20. Tremor at rest Tremor at Rest: Face. lips, chin 0 = Absent. 1 = Slight and infrequently present. 2 = Mild in amplitude and persistent. Or moderate in amplitude, but only intermittently present. 3 = Moderate in amplitude and present most of the time. 4 = Marked in amplitude and present most of the time. Tremor at Rest: RUE 0 = Absent. 1 = Slight and infrequently present. 2 = Mild in amplitude and persistent. Or moderate in amplitude, but only intermittently present. 3 = Moderate in amplitude and present most of the time. 4 = Marked in amplitude and present most of the time. Tremor at Rest: LUE 0 = Absent. 1 = Slight and infrequently present. 2 = Mild in amplitude and persistent. Or moderate in amplitude, but only intermittently present. 3 = Moderate in amplitude and present most of the time. 4 = Marked in amplitude and present most of the time. Tremor at Rest: RLE 0 = Absent. 1 = Slight and infrequently present. 2 = Mild in amplitude and persistent. Or moderate in amplitude, but only intermittently present. 3 = Moderate in amplitude and present most of the time. 4 = Marked in amplitude and present most of the time. Tremor at Rest: LLE 0 = Absent. 1 = Slight and infrequently present. 2 = Mild in amplitude and persistent. Or moderate in amplitude, but only intermittently present. 3 = Moderate in amplitude and present most of the time. 4 = Marked in amplitude and present most of the time. 21. Action or Postural Tremor of hands RUE 0 = Absent. 1 = Slight; present with action. 2 = Moderate in amplitude, present with action. 3 = Moderate in amplitude with posture holding as well as action. 4 = Marked in amplitude; interferes with feeding. LUE 0 = Absent. 1 = Slight; present with action. 2 = Moderate in amplitude, present with action. 3 = Moderate in amplitude with posture holding as well as action. 4 = Marked in amplitude; interferes with feeding. 22. Rigidity (Judged on passive movement of major joints with patient relaxed in sitting position. Cogwheeling to be ignored.) Rigidity: Neck 0 = Absent. 1 = Slight or detectable only when activated by mirror or other movements. 2 = Mild to moderate. 3 = Marked, but full range of motion easily achieved. 4 = Severe, range of motion achieved with difficulty. Rigidity RUE 0 = Absent. 1 = Slight or detectable only when activated by mirror or other movements. 2 = Mild to moderate. 3 = Marked, but full range of motion easily achieved. 4 = Severe, range of motion achieved with difficulty. Rigidity: LUE 0 = Absent. 1 = Slight or detectable only when activated by mirror or other movements. 2 = Mild to moderate. 3 = Marked, but full range of motion easily achieved. 4 = Severe, range of motion achieved with difficulty. Rigidity: RLE 0 = Absent. 1 = Slight or detectable only when activated by mirror or other movements. 2 = Mild to moderate. 3 = Marked, but full range of motion easily achieved. 4 = Severe, range of motion achieved with difficulty. Rigidity: LLE 0 = Absent. 1 = Slight or detectable only when activated by mirror or other movements. 2 = Mild to moderate. 3 = Marked, but full range of motion easily achieved. 4 = Severe, range of motion achieved with difficulty. 23. Finger Taps (Patient taps thumb with index finger in rapid succession.) Finger Taps RUE 0 = Normal. 1 = Mild slowing and/or reduction in amplitude. 2 = Moderately impaired. Definite and early fatiguing. May have occasional arrests in movement. 3 = Severely impaired. Frequent hesitation in initiating movements or arrests in ongoing movement. 4 = Can barely perform the task. Finger Taps LUE 0 = Normal. 1 = Mild [...] Hand Movements: RUE 0 = Normal. 1 = Mild slowing and/or reduction in amplitude. 2 = Moderately impaired. Definite and early fatiguing. May have occasional arrests in movement. 3 = Severely impaired. Frequent hesitation in initiating movements or arrests in ongoing movement. 4 = Can barely perform the task. Hand Movements: LUE 0 = Normal. 1 = Mild [...] both hands simultaneously.) 0 = Normal. 1 = Mild slowing [...] least 3 inches.) 0 = Normal. 1 = Mild slowing [...] straightbacked chair, with arms folded across chest.) 0 = Normal. 1 = Slow; or may need more than one attempt. 2 = Pushes self up from arms of seat. 3 = Tends to fall back and may have to try more than one time, but can get up without help. 4 = Unable to arise without help. 28. Posture 0 = Normal erect. 1 = Not quite erect, slightly stooped [...] Patient is prepared.) 0 = Normal. 1 = Walks slowly, may shuffle with short steps, but no festination (hastening steps) or propulsion. 2 = Walks with difficulty, but requires little or no assistance; may have some festination, short steps, or propulsion. 3 = Severe disturbance of gait, requiring assistance. 4 = Cannot walk at all, even with assistance. 30. Postural Stability (Combining slowness, hesitancy, decreased armswing, small amplitude, and poverty of movement in general.) 0 = Normal. 1 = Retropulsion, but recovers unaided. 2 = Absence of postural response; would fall if not caught by examiner. 3 = Very unstable, tends to lose balance spontaneously. 4 = Unable to stand without assistance. 31. Body Bradykinesia and Hypokinesia 0 = None. 1 = Minimal slowness, giving movement a deliberate character; could be normal for some persons. Possibly reduced amplitude. 2 = Mild degree of slowness and poverty of movement which is definitely abnormal. Alternatively, some reduced amplitude. 3 = Moderate slowness, poverty or small amplitude of movement. 4 = Marked slowness, poverty or small amplitude of movement. Please see on/off testing note from earlier today. % improvement is 58% on levodopa. I feel he is a good candidate if he could adequately pass neuropsych testing. GIUSEPPE CHERRY DO documented in this encounter Plan of Treatment Upcoming Encounters Date Type Specialty Care Team Description 03/20/2022 Office Visit Neurology Vishnu Hooper MD [facility] NEUROLOGY DEPT. [place], [place] [address] (Wo rk) documented as of this encounter Visit Diagnoses Diagnosis Parkinson's disease Paralysis agitans documented in this encounter Care Teams Journeyman Level Acoustic Analyst Relationship Specialty Start Date End Date Griselda Stanley MD PCP - General 07/04/10 02/03/22 documented as of this encounter
--- OUTSIDE RECORDS SUMMARY | 2022-02-26 04:02 | XMS_ITS | Encounter Summary ---
:1955 Author Organization [facility] Address [facility] [place] [address] Care Team Providers Name Role Phone Griselda Stanley MD Primary Care Provider Encounter Details Date Type Department Care Team Description 03/23/2014 Follow-Up Neurology at [facility] [place] Bakari Shields MD Parkinson's disease; [facility] [address] [place] [address] NEUROLOGY DEPT. [phone] [place], [place] [address] (Wo rk) Social History Tobacco [...] Sign Reading Time Taken Comments Blood Pressure 122/60 03/23/2014 8:53 AM EDT Pulse 60 03/23/2014 8:53 AM EDT Temperature - - Respiratory Rate - - Oxygen Saturation - - Inhaled Oxygen Concentration - - Weight 104.8 kg (231 lb) 03/23/2014 8:53 AM EDT Height 182.9 cm (6') 03/23/2014 8:53 AM EDT Body Mass Index 31.33 03/23/2014 8:53 AM EDT documented in this encounter Progress Notes Bakari Shields MD - 03/23/2014 1:03 PM EDT Reason for Revisit Consultation I am seeing this 58-year-old man with left > right Parkinson's disease with onset 1996, and 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 HISTORY History of Present Illness Neurological History [id number] from my office notes: He had been [...] tunnel syndromes from his work in the [employer] were better with nocturnal splints. 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 From deconditioning and lack of exercise, his periods of shuffling and tremor have worsened. His PD symptoms in his legs got bad enough so that he had to take a medical snf from the [employer] in February 2011. He is not working [...] 28 and he takes D3 1000 u/day. His PD symptom complex has been relatively stable on Sinemet 25/250 four tablets daily, Cogentin 1 mg four tablets daily, and vitamin D3 1000 u daily, but his gait sensory ataxia from his diabetic polyneuropathy has been worse. On a visit to [place] over the summer, he tripped and fell twice on stairs that had no handrails. He has a walking stick that helps maintain his balance when he [...] his first daily dose of Sinemet. His notes that he has an anxiety disorder. He had to be admitted overnight to [facility] the night before they drove to [place] because of his anxiety. An ND was ruled out. He also had an echocardiogram. Another problem is jerking of limbs during sleep andloud snoring. He admits to daytime sleepiness. Past Medical History Patient Active Problem List Diagnosis Code ??? Parkinson's disease 332.0 ??? Hypertension 401.9 ??? Hyperlipidemia 272.4 ??? Diabetes mellitus 250.00 ??? Carpal tunnel syndrome, bilateral 354.0 ??? Sciatica of left side 724.3 ??? Abnormal LFTs (liver function tests) 790.6 ??? Cholelithiasis 574.20 ??? 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 Ankle fracture, left 824.8 ??? Fatigue 780.79 ??? Orthostatic hypotension 458.0 Current Medications Current Outpatient Prescriptions Medication Sig [...] mg by mouth 2 times daily. ??? losartan (COZAAR) 100 mg tablet Take 100 mg by mouth daily. ??? [DISCONTINUED] clonAZEpam (KLONOPIN) 0.5 mg tablet Take 0.5 mg by mouth. At bedtime a few nightsper week. Drug Allergies and Adverse Drug Reactions No Known Allergies Family History Positive for hypertension and coronary artery disease. Only neurological history is an uncle, who had a tremor that was said to be due to his medications. 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 He smoked [...] and comfortable. Vital Signs: Recorded by the RECORDING ENGINEER as listed above. I checked orthostatic VS: BP sitting right arm 112/62; standing 94/60. Head: Atruamatic. Neurological Examination Mental status: The [...] on left with normal temperature sensation. Coordination: [id number] test and rapid rhythmic movements of upper and lower extremities show minimal bradykinesia. Gait and station: Normal stance; gait is mildly off balance with combination of mild PD features andmild sensory ataxia. He gets dyskinesias of his arms and hand on observed gait. Romberg negative. Can stand on one foot for only a few seconds. Tendon reflexes: biceps triceps BR patellar AJ Plantars Right 1 1 1 1 0 NE Left 1 1 1 1 0 NE RADIOLOGY AND LABORATORY Radiology: None new. Laboratory: None new. ASSESSMENT This 58-year-old man has had Parkinson's disease for 17 years, with fairly good control on Sinemet and Cogentin with gradual progression over the past few years and a few dyskinesias that will limit future dosage escalation. His bilateral carpal tunnel syndromes are better. He has nocturnal myoclonus or REM behavior disorder for which he can take clonazepam qhs. His PD is stable and generally doing well so I will continue the same medications and doses. He also has a mild diabetic sensory polyneuropathy causing a growing element of sensory gait ataxia to that caused by his PD. I explained that, given the relatively mild effect of PD on his gait, that the polyneuropathy is the majority factor causing is imbalance. He needs to look at the ground and use a walking stick on uneven ground. He has also developed orthostatic hypotension from PD, Sinemet, and his antihypertensive drugs. I wonder if any of his antihypertensive drugs can be lessened in dose. I will ask Dr. Stanley to decide. Inthe mean time, i explained the need for hydration, prevention of overheating, and lying flat if he felt lightheadedness and tunnel vision again. His daytime sleepiness, limb jerking while asleep, and loud snoring at night may represent obstructive sleep apnea and periodic movements of sleep. I will request a sleep consultation. PLAN 1. Discussion, explanation, question answering. 2. Continue current PD medications/doses. 3. Continue Vitamin D3 [address] units daily[address] 4[address]. Stanley about reducing antihypertensive regimen because of orthostatic hypotension. 5. Sleep consultation. 6. Revisit in 9 months. Bakari Shields [place]. [place] [address] TEL: [phone] FAX: [phone] [email or web address] documented in this encounter Plan of Treatment Upcoming Encounters Date Type Specialty Care Team Description 03/20/2022 Office Visit Neurology Vishnu Hooper MD [facility] NEUROLOGY DEPT. [place] [address] (Wo rk) documented as of this encounter Visit Diagnoses Diagnosis Parkinson's disease Paralysis agitans Orthostatic hypotension documented in this encounter Care Teams Digital Circuit Designer Relationship Specialty Start Date End Date Griselda Stanley MD PCP - General 07/04/10 02/03/22 documented as of this encounter
--- OUTSIDE RECORDS SUMMARY | 2022-02-26 04:07 | XMS_ITS | Clinical Summary ---
:1955 Author Organization [facility] Address [address] [place] [address] Care Team Providers Name Role Phone Griselda Stanley MD Primary Care Provider Allergies No known active allergies Medications Medication Sig Dispensed Refills Start Date End Date Status carbidopa-levodopa Take 1 0 A ctive (SINEMET) 25-250 mg Tablet by per tablet mouth 4 times daily. entacapone (COMTAN) Take 200 mg 0 Active 200 mg tablet by mouth 3 times daily. gabapentin Take 100 mg 0 Active (NEURONTIN) 100 mg by mouth 2 capsule times daily. DULoxetine Take 60 mg 0 Active (CYMBALTA) 30 mg by mouth delayed release daily. capsule metoprolol TARtrate Take 50 mg 0 Active (LOPRESSOR) 50 mg by mouth 2 tablet times daily. atorvastatin Take 4 60 Tablet 2 02/10/2022 Active (LIPITOR) 10 mg Tablets by tablet mouth daily. aspirin chewable 81 Take 1 0 02/10/2022 Active mg tablet Tablet by mouth daily. acetaminophen Take 2 0 02/21/2022 Activ e (TYLENOL) 325 mg Tablets by tablet mouth every 4 hours as needed for Pain. polyethylene glycol Take 17 g by 0 02/21/2022 Active 3350 (MIRALAX) 17 mouth daily gram packet as needed (constipatio n). senna (SENOKOT) 8.6 Take 2 0 02/21/2022 Active mg tablet Tablets by mouth at bedtime. metFORMIN Take 1 30 Tablet 0 02/23/2022 Active (GLUCOPHAGE) 500 mg Tablet by tablet mouth daily with breakfast. atorvastatin Take 10 mg 0 Discon tinued (LIPITOR) 10 mg by mouth 2 (Reo rder) tablet daily. glipiZIDE Take 5 mg by 0 Discont inued (GLUCOTROL) 5 mg mouth 2 2 tablet times daily. insulin aspart Sliding 0 02/10/2022 Disc ontinued U-100 (NOVOLOG scale as 2 FLEXPEN) 100 above unit/mL (3 mL) injectable pen Active Problems Problem Noted Date History of recent stroke 02/10/2022 Acute CVA (cerebrovascular accident) ([facility]) 022 Stroke ([facility]) 02/04/2022 Arterial ischemic stroke, MCA (middle cerebral artery) , left, acute 02/04/2022 ([facility]) Aphasia 02/04/2022 Dysarthria 02/04/2022 Encounters Date Type Specialty Care Team Description 02/18/2022 Emergency Emergency Medicine Louisa Law (Primary Dx) MD Shravan 02/12/2022 Emergency Emergency Medicine Julián Pérez Aphasia as late effect MD Shannan MSc of cerebrovascu lar accident (Prima ry Dx) 02/12/2022 Travel 02/10/2022 [facility] Arterial isc hemic stroke, MCA (middle cerebral artery), left, acute ([facility]) ([facility]) (Primary Dx); - Encounter MD Agata Aphasia; 02/22/2022 Nadiya Roldan Dysarthria; MD Lidya Diabetes [facility] type 2 in nonobese ([facility]) ([facility]); Parkinson's dis ease ([facility]) ([facility]); Longstanding pe rsistent atrial fibrillation ([facility]) ([facility]); Other constipat ion 02/04/2022 Anesthesia Event Radiology Jared Maravilla MD Harmeyer, Don W, PARTS INTERPRETER 02/04/2022 [facility] Arterial isch emic stroke, MCA (middle cerebral artery), left, acute ([facility]) ([facility]) (Primary Dx); - Encounter MD Heladio Stroke (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 Last Filed Vital Signs Vital Sign Reading Time Taken Comments Blood Pressure 127/77 02/22/2022 0630 EDT Pulse 67 02/22/2022 0630 EDT Temperature 35.6 ??C (96.1 ??F) 02/22/2022 0630 EDT Respiratory Rate 14 02/22/2022 0630 EDT Oxygen Saturation 97% 02/22/2022 0630 EDT Inhaled Oxygen Concentration - - Weight 97.7 kg (215 lb 6.2 oz) 02/12/2022 1454 EDT Height 185.4 cm (6' 1) 02/12/2022 1454 EDT Body Mass Index 28.42 02/12/2022 1454 EDT Plan of Treatment Health Maintenance Due Date Last Done Comments Eye Exam 1955 Foot Exam 1955 Hepatitis C Screen 1955 Microalbumin/Creatinine Ratio 1955 COVID-19 Vaccine (#1) 03/14/1956 Fall Risk Screening 2020 Hemoglobin A1C (Ha1C) 08/07/2022 02/05/2022 Lipid Profile Screening (Cholesterol) 02/05/2023 02/05/2022 Implants Implanted Type Area Spin Tank Tender Device Identifier Shelf Exp iration Model / Date Serial / L ot [employer] Percept Pc Dbs Mr Cond 1.5/3t Description: [employer] PERCEPT PC DBS wi th (2) [id number] leads and (2) [id number] extensions are MR COND 1.5/3T (fully body eligible unless there is a problem found by managing MD on interrogation) Managing MD needs to complete eligibilit y form prior to any MRI exam. Please visit: [email or web address] For latest MRI conditions. MRI scan duration should not exceed a to louis of 30 minutes of active scan time within a 90 minute window (every 90 minute window should include a total of 60 minutes of wait time) Per [employer] verified via phone MJS Procedures Procedure Name Priority Date/Time Associated Comments Diagnosis POCT GLUCOSE, Routine 02/22/2022 6:30 Results for this INTERFACED EDT procedure are i n the results section. POCT GLUCOSE, Routine 02/21/2022 20:31 Results fo r this INTERFACED EDT procedure are i n the results section. POCT GLUCOSE, Routine 02/21/2022 17:11 Results fo r this INTERFACED EDT procedure are i n the results section. POCT GLUCOSE, Routine 02/21/2022 11:32 Results fo r this INTERFACED EDT procedure are i n the results section. POCT GLUCOSE, Routine 02/21/2022 6:19 Results for this INTERFACED EDT procedure are i n the results section. POCT GLUCOSE, Routine 02/20/2022 20:36 Results fo r this INTERFACED EDT procedure are i n the results section. POCT GLUCOSE, Routine 02/20/2022 17:00 Results fo r this INTERFACED EDT procedure are i n the results section. POCT GLUCOSE, Routine 02/20/2022 12:13 Results fo r this INTERFACED EDT procedure are i n the results section. POCT GLUCOSE, Routine 02/19/2022 20:32 Results fo r this INTERFACED EDT procedure are i n the results section. POCT GLUCOSE, Routine 02/19/2022 20:21 Results fo r this INTERFACED EDT procedure are i n the results section. POCT GLUCOSE, Routine 02/19/2022 17:02 Results fo r this INTERFACED EDT procedure are i n the results section. POCT GLUCOSE, Routine 02/19/2022 11:58 Results fo r this INTERFACED EDT procedure are i n the results section. POCT GLUCOSE, Routine 02/19/2022 6:44 Results for this INTERFACED EDT procedure are i n the results section. POCT GLUCOSE, Routine 02/18/2022 20:54 Results fo r this INTERFACED EDT procedure are i n the results section. POCT GLUCOSE, Routine 02/18/2022 16:30 Results fo r this INTERFACED EDT procedure are i n the results section. POCT GLUCOSE, Routine 02/18/2022 14:02 Results fo r this INTERFACED EDT procedure are i n the results section. URINE CHEMICAL (DIP) & STAT 02/18/2022 10:57 R esults for this SEDIMENT (MICRO) WITH EDT proced ure are in REFLEX TO CULTURE the result s section. COMPREHENSIVE STAT 02/18/2022 9:41 Results for this METABOLIC PANEL (CMP) EDT proced ure are in the results section. COMPLETE BLOOD COUNT STAT 02/18/2022 9:41 Resu lts for this AND DIFFERENTIAL EDT procedure a re in the results section. CT HEAD WO CONTRAST STAT 02/18/2022 9:23 Resul ts for this EDT procedure are i n the results section. XR CHEST PORTABLE 1 STAT 02/18/2022 9:00 Resul ts for this VIEW EDT procedure are i n the results section. POCT GLUCOSE, Routine 02/18/2022 6:37 Results for this INTERFACED EDT procedure are i n the results section. POCT GLUCOSE, Routine 02/17/2022 20:44 Results fo r this INTERFACED EDT procedure are i n the results section. POCT GLUCOSE, Routine 02/17/2022 16:53 Results fo r this INTERFACED EDT procedure are i n the results section. POCT GLUCOSE, Routine 02/17/2022 11:57 Results fo r this INTERFACED EDT procedure are i n the results section. POCT GLUCOSE, Routine 02/17/2022 7:14 Results for this INTERFACED EDT procedure are i n the results section. POCT GLUCOSE, Routine 02/16/2022 20:37 Results fo r this INTERFACED EDT procedure are i n the results section. POCT GLUCOSE, Routine 02/16/2022 16:51 Results fo r this INTERFACED EDT procedure are i n the results section. POCT GLUCOSE, Routine 02/16/2022 11:41 Results fo r this INTERFACED EDT procedure are i n the results section. POCT GLUCOSE, Routine 02/16/2022 6:21 Results for this INTERFACED EDT procedure are i n the results section. POCT GLUCOSE, Routine 02/15/2022 20:33 Results fo r this INTERFACED EDT procedure are i n the results section. POCT GLUCOSE, Routine 02/15/2022 17:38 Results fo r this INTERFACED EDT procedure are i n the results section. POCT GLUCOSE, Routine 02/15/2022 11:37 Results fo r this INTERFACED EDT procedure are i n the results section. POCT GLUCOSE, Routine 02/15/2022 11:25 Results fo r this INTERFACED EDT procedure are i n the results section. POCT GLUCOSE, Routine 02/15/2022 6:32 Results for this INTERFACED EDT procedure are i n the results section. POCT GLUCOSE, Routine 02/14/2022 20:25 Results fo r this INTERFACED EDT procedure are i n the results section. POCT GLUCOSE, Routine 02/14/2022 17:03 Results fo r this INTERFACED EDT procedure are i n the results section. IMPLANT RECORD - 02/14/2022 15:00 SCANNED EDT POCT GLUCOSE, Routine 02/14/2022 11:33 Results fo r this INTERFACED EDT procedure are i n the results section. POCT GLUCOSE, Routine 02/14/2022 6:30 Results for this INTERFACED EDT procedure are i n the results section. POCT GLUCOSE, Routine 02/13/2022 20:17 Results fo r this INTERFACED EDT procedure are i n the results section. POCT GLUCOSE, Routine 02/13/2022 16:35 Results fo r this INTERFACED EDT procedure are i n the results section. POCT GLUCOSE, Routine 02/13/2022 11:32 Results fo r this INTERFACED EDT procedure are i n the results section. POCT GLUCOSE, Routine 02/13/2022 6:13 Results for this INTERFACED EDT procedure are i n the results section. POCT GLUCOSE, Routine 02/12/2022 20:34 Results fo r this INTERFACED EDT procedure are i n the results section. POCT GLUCOSE, Routine 02/12/2022 17:18 Results fo r this INTERFACED EDT procedure are i n the results section. COVID-19 TEST [facility] Today 02/12/2022 15:48 LAB PCR EDT COVID-19 TESTING Routine 02/12/2022 15:48 Results for this EDT procedure are i n the results section. XR CHEST 2 VIEWS STAT 02/12/2022 15:22 Results for this EDT procedure are i n the results section. EKG 12-LEAD STAT 02/12/2022 14:54 EDT Procedure Note - 02/12/2022 14:54 EDT Wave form only; Final to fol low after physician interpretation. 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 CT ANGIO HEAD NECK STAT 02/12/2022 14:37 EDT R esults for this procedure are i n the results section . BLOOD BANK HOLD Routine 02/12/2022 14:26 EDT Resu lts for this procedure are i n the results section . TROPONIN I STAT 02/12/2022 14:25 EDT Results for this procedure are i n the results section . PTT STAT 02/12/2022 14:25 EDT Results for this procedure are i n the results section . PROTIME STAT 02/12/2022 14:25 EDT Results for this procedure are i n the results section . BASIC METABOLIC PANEL (BMP) STAT 02/12/2022 14:25 EDT Results for this procedure are i n the results section . COMPLETE BLOOD COUNT AND STAT 02/12/2022 14:25 EDT Results for this DIFFERENTIAL procedure are i n the results section . POCT GLUCOSE, INTERFACED STAT 02/12/2022 14:20 EDT Results for this procedure are i n the results section . POCT GLUCOSE, INTERFACED Routine 02/12/2022 11:44 EDT Results for this procedure are i n the results section . POCT GLUCOSE, INTERFACED Routine 02/12/2022 11:21 EDT Results for this procedure are i n the results section . POCT GLUCOSE, INTERFACED Routine 02/12/2022 6:39 EDT Results for this procedure are i n the results section . POCT GLUCOSE, INTERFACED Routine 02/11/2022 20:23 EDT Results for this procedure are i n the results section . POCT GLUCOSE, INTERFACED Routine 02/11/2022 17:20 EDT Results for this procedure are i n the results section . POCT GLUCOSE, INTERFACED Routine 02/11/2022 11:22 EDT Results for this procedure are i n the results section . POCT GLUCOSE, INTERFACED Routine 02/11/2022 6:43 EDT Results for this procedure are i n the results section . POCT GLUCOSE, INTERFACED Routine 02/10/2022 20:33 EDT Results for this procedure are i n the results section . POCT GLUCOSE, INTERFACED Routine 02/10/2022 17:15 EDT Results for this procedure are i n the results section . POCT GLUCOSE, INTERFACED Routine 02/10/2022 12:10 EDT Results for this procedure are i n the results section . POCT GLUCOSE, INTERFACED Routine 02/10/2022 8:57 EDT Results for this procedure are i n the results section . COVID-19 TEST [facility] LAB PCR Today 02/10/2022 4:10 EDT COVID-19 TESTING Routine 02/10/2022 4:10 EDT Resu lts for this procedure are i n the results section . POCT GLUCOSE, INTERFACED Routine 02/09/2022 21:27 EDT Results for this procedure are i n the results section . POCT GLUCOSE, INTERFACED Routine 02/09/2022 18:28 EDT Results for this procedure are i n the results section . POCT GLUCOSE, INTERFACED Routine 02/09/2022 14:06 EDT Results for this procedure are i n the results section . POCT GLUCOSE, INTERFACED Routine 02/09/2022 10:02 EDT Results for this procedure are i n the results section . COMPLETE BLOOD COUNT Routine 02/09/2022 5:47 EDT Results for this procedure are i n the results section . CREATININE Routine 02/09/2022 5:47 EDT Results for this procedure are i n the results section . ELECTROLYTES Routine 02/09/2022 5:47 EDT Results for this procedure are i n the results section . POCT GLUCOSE, INTERFACED Routine 02/08/2022 21:34 EDT Results for this procedure are i n the results section . POCT GLUCOSE, INTERFACED Routine 02/08/2022 19:01 EDT Results for this procedure are i n the results section . POCT GLUCOSE, INTERFACED Routine 02/08/2022 12:59 EDT Results for this procedure are i n the results section . POCT GLUCOSE, INTERFACED Routine 02/08/2022 9:16 EDT Results for this procedure are i n the results section . COMPLETE BLOOD COUNT Routine 02/08/2022 5:47 EDT Results for this procedure are i n the results section . CREATININE Routine 02/08/2022 5:47 EDT Results for this procedure are i n the results section . ELECTROLYTES Routine 02/08/2022 5:47 EDT Results for this procedure are i n the results section . POCT GLUCOSE, INTERFACED Routine 02/07/2022 20:26 EDT Results for this procedure are i n the results section . POCT GLUCOSE, INTERFACED Routine 02/07/2022 18:00 EDT Results for this procedure are i n the results section . POCT GLUCOSE, INTERFACED Routine 02/07/2022 13:15 EDT Results for this procedure are i n the results section . POCT GLUCOSE, INTERFACED Routine 02/07/2022 8:39 EDT Results for this procedure are i n the results section . COMPLETE BLOOD COUNT Routine 02/07/2022 6:42 EDT Results for this procedure are i n the results section . CREATININE Routine 02/07/2022 6:42 EDT Results for this procedure are i n the results section . ELECTROLYTES Routine 02/07/2022 6:42 EDT Results for this procedure are i n the results section . POCT GLUCOSE, INTERFACED Routine 02/06/2022 21:59 EDT Results for this procedure are i n the results section . POCT GLUCOSE, INTERFACED Routine 02/06/2022 18:57 EDT Results for this procedure are i n the results section . POCT GLUCOSE, INTERFACED Routine 02/06/2022 12:55 EDT Results for this procedure are i n the results section . POCT GLUCOSE, INTERFACED Routine 02/06/2022 9:23 EDT Results for this procedure are i n the results section . COMPLETE BLOOD COUNT Routine 02/06/2022 7:42 EDT Results for this procedure are i n the results section . CREATININE Routine 02/06/2022 7:42 EDT Results for this procedure are i n the results section . ELECTROLYTES Routine 02/06/2022 7:42 EDT Results for this procedure are i n the results section . POCT GLUCOSE, INTERFACED Routine 02/05/2022 21:51 EDT Results for this procedure are i n the results section . POCT GLUCOSE, INTERFACED Routine 02/05/2022 17:05 EDT Results for this procedure are i n the results section . CT HEAD WO CONTRAST Routine 02/05/2022 13:39 EDT Results for this procedure are i n the results section . POCT GLUCOSE, INTERFACED Routine 02/05/2022 12:52 EDT Results for this procedure are i n the results section . TRANSTHORACIC ECHO (TTE) Routine 02/05/2022 10:00 EDT Results for this COMPLETE procedure are i n the results section . POCT GLUCOSE, INTERFACED Routine 02/05/2022 5:25 EDT Results for this procedure are i n the results section . COMPLETE BLOOD COUNT Routine 02/05/2022 4:15 EDT Results for this procedure are i n the results section . THYROID CASCADE Routine 02/05/2022 4:15 EDT Resul ts for this procedure are i n the results section . LIPID PROFILE (INCLUDES Routine 02/05/2022 4:15 EDT Results for this CHOLESTEROL, TRIGLYCERIDES, procedure are in the HDL, LDL) results section . HEMOGLOBIN A1C Routine 02/05/2022 4:15 EDT Result s for this procedure are i n the results section . ALT Routine 02/05/2022 4:15 EDT Results for this procedure are i n the results section . AST Routine 02/05/2022 4:15 EDT Results for this procedure are i n the results section . CREATININE Routine 02/05/2022 4:15 EDT Results for this procedure are i n the results section . PHOSPHORUS Routine 02/05/2022 4:15 EDT Results for this procedure are i n the results section . MAGNESIUM Routine 02/05/2022 4:15 EDT Results for this procedure are i n the results section . CALCIUM Routine 02/05/2022 4:15 EDT Results for this procedure are i n the results section . ELECTROLYTES Routine 02/05/2022 4:15 EDT Results for this procedure are i n the results section . POCT GLUCOSE, INTERFACED Routine 02/04/2022 23:07 EDT Results for this procedure are i n the results section . POCT GLUCOSE, INTERFACED Routine 02/04/2022 20:50 EDT Results for this procedure are i n the results section . COVID-19 TEST [facility] LAB PCR STAT 02/04/2022 18:53 EDT COVID-19 TESTING STAT 02/04/2022 18:53 EDT Res ults for this procedure are i n the results section . POCT GLUCOSE, INTERFACED Routine 02/04/2022 18:15 EDT Results for this procedure are i n the results section . XR FEEDING TUBE PLACEMENT STAT 02/04/2022 17:37 EDT Results for this procedure are i n the results section . IR STROKE THROMBECTOMY STAT 02/04/2022 15:48 EDT Results for this procedure are i n the results section . ANESTHESIA INTUBATION Routine 02/04/2022 14:56 EDT Results for this procedure are i n the results section . ANESTHESIA INTUBATION Routine 02/04/2022 14:56 EDT Results for this procedure are i n the results section . CT HEAD WO CONTRAST STAT 02/04/2022 14:45 EDT Results for this procedure are i n the results section . TYPE AND SCREEN STAT 02/04/2022 14:40 EDT Resu lts for this procedure are i n the results section . HOLD BLUE TOP STAT 02/04/2022 14:40 EDT Result s for this procedure are i n the results section . TROPONIN I STAT 02/04/2022 14:40 EDT Results for this procedure are i n the results section . PTT STAT 02/04/2022 14:40 EDT Results for this procedure are i n the results section . PROTIME STAT 02/04/2022 14:40 EDT Results for this procedure are i n the results section . CREATININE STAT 02/04/2022 14:40 EDT Results for this procedure are i n the results section . BUN STAT 02/04/2022 14:40 EDT Results for this procedure are i n the results section . ELECTROLYTES STAT 02/04/2022 14:40 EDT Results for this procedure are i n the results section . COMPLETE BLOOD COUNT AND STAT 02/04/2022 14:40 EDT Results for this DIFFERENTIAL procedure are i n the results section . SCREENING GLUCOSE STAT 02/04/2022 14:40 EDT Re sults for this procedure are i n the results section . PROFILE ED STROKE PANEL STAT 02/04/2022 14:40 EDT Results for this procedure are i n the results section . POCT GLUCOSE, INTERFACED Routine 02/04/2022 14:34 EDT Results for this procedure are i n the results section . ED CRITICAL CARE Routine 02/04/2022 14:30 EDT Res ults for this procedure are i n the results section . ED CRITICAL CARE Routine 02/04/2022 14:30 EDT Res ults for this procedure are i n the results section . from Last 3 Months Results (ABNORMAL) POCT GLUCOSE, INTERFACED (02/22/2022 6:30 EDT)Only the most recent of 76 resultswithin the time period is included. Glucose, POC 158 (H) 70 - 100 [facility] mg/dL LABORATORY SERVICES HN LAB POC COMMENT Test Performed by [facility] R (GLUCOSE) Nursing Services LABORATORY SERVICES Specimen Blood - Capillary blood (substance) Performing Organization Address City/State/ZIP Code Phon e Number [facility] LABORATORY [address] [place] [address] SERVICES URINE CHEMICAL (DIP) & SEDIMENT (MICRO) WITH REFLEX TO CULTURE (02/18/2022 10:57 EDT)Only the most recent of2 resultswithin the time period is included. Color UA Yellow Colorless, Yellow [facility] SERVICES Clarity UA Clear Clear [facility] SERVICES Glucose UA Negative Negative [facility] SERVICES Bilirubin UA Negative Negative [facility] SERVICES Ketones UA Negative Negative [facility] LABORATORY SERVICES Specific [place], 1.010 1.001 - 1.035 [facility] Urine LABORATORY SERVICES Blood UA Negative Negative [facility] LABOR[facility]ORY SERVICES Urobilinogen UA Normal Normal mg/dL [facility] SERVICES Nitrite UA Negative Negative [facility] SERVICES Leukocyte Esterase UA Negative Negative [facility] SERVICES Protein UA Negative Negative [facility] LAB[facility]ORY SERVICES pH, UA 6.0 4.6 - 8.0 [facility] LABORATORY SERVICES Urine RBC Count, Auto 0 - 2 0 - 2 Cells/HPF [facility] LABORATORY SERVICES Urine WBC Count, Auto 0 - 3 0 - 3 Cells/HPF [facility]ATORY SERVICES Urine Squamous Count, None Seen None Seen [facility] Auto Cells/HPF LABORATORY SERVICES Urine Hyaline Cast <=10 <=10 Casts/LPF [facility] Count, Auto LABORATORY SERVICES Urine Bacteria Count, None Seen None Seen [facility] Auto Bacteria/HPF LABORATORY SERVICES Specimen Urine - Urine specimen collection, clean catch (procedure) Narrative [facility] LABORATORY SERVICES - 02/18/2022 11:21 EDT NOTE: Reflex to Urine Culture test is not aung cated based on Urine Sediment Analysis results. Urine Sediment Analysis results are unre liable on urines that are unrefrigerated for >2 hrs or refrigerated >8 hrs. Performing Organization Address City/State/ZIP Code Phon e Number [facility] [address] [place] [address] SERVICES COMPLETE BLOOD COUNT AND DIFFERENTIAL (02/18/2022 9:41 EDT)Only the most recent of3 resultswithin the time period is included. Pathologist Sig nature WBC 9.48 4.00 - 10.40 [facility] [facility] LABORATORY SERVICES RBC 4.84 4.36 - 5.78 [facility] LABORATORY SERVICES Hemoglobin 14.2 13.8 - 17.3 [facility] gm/dL LABORATORY SERVICES HCT 41.8 39.5 - 50.2 % [facility] LABORATORY SERVICES MCV 86 81 - 95 fl [facility] LABORATORY SERVICES MCH 29.3 27.6 - 33.0 pg [facility] LABORATORY SERVICES MCHC 34.0 32.8 - 36.4 [facility] gm/dL LABORATORY SERVICES RDW-CV 13.7 <14.2 % [facility] LABORATORY SERVICES RDW-SD 42.1 <46.0 fl [facility] LABORATORY SERVICES PLT 193 141 - 377 /[facility] LABORATORY SERVICES MPV 11.3 9.5 - 12.7 fl [facility] LABORATORY SERVICES Neutrophils 61.2 % [facility] LABORATORY SERVICES Lymphocytes 32.0 % [facility] LABORATORY SERVICES Monocytes 5.5 % [facility] LABORATORY SERVICES Eosinophils 0.6 % [facility] LABORATORY SERVICES Basophils 0.4 % [facility] LABORATORY SERVICES Immature Grans 0.3 % [facility] LABORATORY SERVICES Absolute Neutrophils 5.80 2.20 - 8.85 [facility] LABORATORY SERVICES Absolute Lymphocytes 3.03 1.09 - 3.30 [facility] LABORATORY SERVICES Absolute Monocytes 0.52 0.10 - 0.80 [facility] K/[facility] LABORATORY SERVICES Absolute Eosinophils 0.06 0.03 - 0.61 [facility] K/[facility] LABORATORY SERVICES Absolute Basophils 0.04 0.01 - 0.11 [facility] K/[facility] LABORATORY SERVICES Absolute Immature 0.03 0.00 - 0.06 [facility] K/[facility] LABORATORY SERVICES Type of Differential: Auto [facility] LABORATORY SERVICES Specimen Blood - Venous blood (substance) Performing Organization Address City/[facility]/ZIP Code Phon e Number [facility] LABORATORY [address] [place] [address] SERVICES (ABNORMAL) COMPREHENSIVE METABOLIC PANEL (CMP) (02/18/2022 9:41 EDT) Pathologist Sig nature Sodium 140 136 - 145 [facility] mmol/L LABORATORY SERVICES Potassium 4.4 3.5 - 5.0 [facility] mmol/L LABORATORY SERVICES Chloride 103 96 - 110 mmol/L [facility] LABORATORY SERVICES CO2 Total 30 22 - 32 mmol/L [facility] LABORATORY SERVICES Glucose 161 (H) 70 - 100 mg/dL [facility] LABORATORY SERVICES BUN 15 10 - 26 mg/dL [facility] LABORATORY SERVICES Creatinine 0.88 0.66 - 1.25 [facility] mg/dL LABORATORY SERVICES eGFR 95 >60 [facility] mL/min/1.73m2 LABORATORY SERVICES Total Protein 7.7 6.3 - 8.2 g/dL [facility] LABORATORY SERVICES Albumin 5.1 (H) 3.4 - 4.9 g/dL [facility] LABORATORY SERVICES Alkaline Phosphatase 99 38 - 126 U/L [facility] LABORATORY SERVICES AST 30 15 - 46 U/L [facility] LABORATORY SERVICES ALT 26 <50 U/L [facility] LABORATORY SERVICES Bilirubin, Total 1.0 <1.4 mg/dL [facility] LABORATORY SERVICES Calcium 9.8 8.5 - 10.5 [facility] mg/dL LABORATORY SERVICES Albumin/Globulin 2.0 1.0 - 2.5 [facility] Ratio LABORATORY SERVICES Anion Gap 7 5 - 14 [facility] LABORATORY SERVICES Specimen Blood - Venous blood (substance) Performing Organization Address City/[facility]/ZIP Code Phon e Number [facility] LABORATORY [address] [place] [address] HEAD WO CONTRAST (02/18/2022 9:23 EDT) Anatomical Region Laterality Modality Head Computed Tomography Specimen Impressions [facility] - 02/18/2022 10:28 EDT Redemonstrated evolving left MCA territory infarcts without associated hematoma- type hemorrhage. Irre gular hyperattenuation within the region of infarct could represent a small amount of petechial hemorrhage, similar in distribution to prior but slightly more prominent. No new infarct. I have personally reviewed the images an d the above interpretation and agree with the findings. Narrative [facility] - 02/18/2022 10:28 EDT EXAM: CT HEAD WO CONTRAST HISTORY: Recent stroke, headache; Stroke , follow up ?? TECHNIQUE: CT head without contrast. Str uctured report code: [email or web address] COMPARISON: CTA head and neck 02/12/2022. CT head 02/05/2022. FINDINGS: PARENCHYMA: Redemonstrated areas of hypodensity with in the posterior left temporal lobe and adjacent parietal lobe, and in the left insula and adjacent temporal lobe, similar to prior. No new infarct. No acute viv cristina type parenchymal hemorrhage. There is an irregular area of mild hyperattenuation within the region of infarct (series 201, image #57) which is minimally more prominent compared to prior. No mass or midline shift. Redemonstrated mild diff use global volume loss. Scattered hypoattenuation in the supratentorial white matter likely represents chronic microangiopathic change. Bilateral deep brain stimulator leads are noted in unchanged position. EXTRA-AXIAL SPACES: No acute extra-axial hemorrhage or extra -axial collection. No extra-axial mass. VENTRICULAR SYSTEM: No acute intraventricular hemorrhage. No obstructive hydrocephalus. VESSELS: Limited evaluation without IV contrast. Normal density in the dural venous sinuses. Calcifications are present in the carotid siphons. BONES: Bilateral frontal fly holes. ORBITS: No significant abnormality. PARANASAL SINUSES/MASTOID AIR CELLS: Mild mural thickening of the ethmoid air cells. Remainder of the paranasal sinuses and mastoid air cells are predominantly clear. EXTRACRANIAL SOFT TISSUES: Stimulator leads course along the left s calp. Procedure Note Garret Finnegan MD - 02/18/2022 EXAM: CT HEAD WO CONTRAST HISTORY: Recent stroke, headache; Stroke , follow up TECHNIQUE: CT head without contrast. Str uctured report code: [email or web address] COMPARISON: CTA head and neck 02/12/2022. CT head 02/05/2022. FINDINGS: PARENCHYMA: Redemonstrated areas of hypodensity with in the posterior left temporal lobe and adjacent parietal lobe, and in the left insula and adjacent temporal lobe, similar to prior. No new infarct. No acute hematoma type parenchymal hemorrhage. There is an irre gular area of mild hyperattenuation within the region of infarct (series 201, image #57) which is minimally more prominent compared to prior. No mass or midline shift. Redemonstrated mild diffuse globa l volume loss. Scattered hypoattenuation in the supratentorial white matter likely represents chronic microangiopathic change. Bilateral deep brain stimulator leads are noted in unchanged position. EXTRA-AXIAL SPACES: No acute extra-axial hemorrhage or extra -axial collection. No extra-axial mass. VENTRICULAR SYSTEM: No acute intraventricular hemorrhage. No obstructive hydrocephalus. VESSELS: Limited evaluation without IV contrast. Normal density in the dural venous sinuses. Calcifications are present in the carotid siphons. BONES: Bilateral frontal fly holes. ORBITS: No significant abnormality. PARANASAL SINUSES/MASTOID AIR CELLS: Mild mural thickening of the ethmoid air cells. Remainder of the paranasal sinuses and mastoid air cells are predominantly clear. EXTRACRANIAL SOFT TISSUES: Stimulator leads course along the left s calp. IMPRESSION Redemonstrated evolving left MCA territo ry infarcts without associated hematoma- type hemorrhage. Irregular hyperattenuation within the region of infarct could represent a small amount of petechial hemorrhage, similar in distribution to prior but slightly more prominent. No new infarct. I have personally reviewed the images an d the above interpretation and agree with the findings. Performing Organization Address City/State/ZIP Code Phon e Number [facility] XR CHEST PORTABLE 1 VIEW (02/18/2022 9:00 EDT) Anatomical Region Laterality Modality Computed Radiography Specimen Impressions [facility] - 02/18/2022 11:45 EDT 1. ??No interval change aside from low lung volumes. Narrative [facility] - 02/18/2022 11:45 EDT XR CHEST PORTABLE 1 VIEW ??02/18/2022 9:00 AM CLINICAL HISTORY/COMMENTS: Concern for infection COMPARISON: Prior chest radiograph 02/12/2022.. FINDINGS: Single portable AP view of the chest. Lines/tubes: ??Battery pack projects ove r the lateral upper left hemithorax. Soft tissues, bones and extrathoracic fi ndings: Stable in appearance. Cardiac and mediastinal contours: Within normal limits accounting for patient positioning and film technique. Lungs: Lung volumes are slightly low but the lungs appear clear. Pleura: Although the left CP angle was n ot included on this exam. Procedure Note Tamara Harper MD - 02/18/2022 XR CHEST PORTABLE 1 VIEW 02/18/2022 9:00 AM CLINICAL HISTORY/COMMENTS: Concern for infection COMPARISON: Prior chest radiograph 02/12/2022.. FINDINGS: Single portable AP view of the chest. Lines/tubes: Battery pack projects over the lateral upper left hemithorax. Soft tissues, bones and extrathoracic fi ndings: Stable in appearance. Cardiac and mediastinal contours: Within normal limits accounting for patient positioning and film technique. Lungs: Lung volumes are slightly low but the lungs appear clear. Pleura: Although the left CP angle was n ot included on this exam. IMPRESSION 1. No interval change aside from low gerson g volumes. Performing Organization Address City/State/ZIP Code Phon e Number [facility] IMPLANT RECORD - SCANNED (02/14/2022 15:00 EDT) Specimen Narrative This result has an attachment that is no t available. COVID-19 TEST [facility] PCR (02/12/2022 15:48 EDT)Only the most recent of3 resultswithin the time period is included. Specimen Swab - Entire nasopharynx (body structur e) Performing Organization Address City/State/ZIP Code Phon e Number [facility] LABORATORY [address] [place] [address] SERVICES COVID-19 TESTING (02/12/2022 15:48 EDT)Only the most recent of3 resultswithin the time period is included. COVID-19 rt-PCR Negative Negative [facility] Result Comment: [facility] This test has not been FDA c leared or approved. This test has been authorized by FDA under an EUA for use by authorized laboratories. This test has been authorized only for detection of nucleic acid fro SERVICES m 2018-nCo, not for any oth er viruses or pathogens. This test is only authorized for the duration of the declaration that circumstances exist justifying the authorization of emergency use of in vitro d iagnostic tests for detectio n and/or diagnosis of 2019-nCoV under section 564(b)(1) of Act, 21 U.S.C ?? 360bbb-3(b) (1), unless the authorization is terminated or revoked sooner. Negative results do not prec lude 2019-nCoV infection and should not be used as the sole basis for treatment or other patient management decisions. Negative results must be combined with clinical observa tions, patient history, and epidemiological informatio n. Performed on the [employer] Fusion instrument Performing Lab [place] [facility] LABORATORY SERVICES Specimen Swab - Entire nasopharynx (body structur e) Performing Organization Address City/State/ZIP Code Phon e Number [facility] LABORATORY [address] [place] [address] SERVICES XR CHEST 2 VIEWS (02/12/2022 15:22 EDT) Anatomical Region Laterality Modality Computed Radiography Specimen Impressions [facility] - 02/12/2022 16:03 EDT 1. ??No acute cardiopulmonary disease. Narrative [facility] - 02/12/2022 16:03 EDT XR CHEST 2 VIEWS ??02/12/2022 3:15 PM CLINICAL HISTORY/COMMENTS: cough COMPARISON: Radiograph of the abdomen 02/04/2022. TECHNIQUE: Frontal and lateral views of the chest w ere performed. FINDINGS: Soft tissues and extrathoracic findings: ??Battery pack projects over the left lateral lung. Bones: There is severe endplate sclerosi s in the lower thoracic spine with marked anterior osteophytosis in this patient with DISH. Cardiac and mediastinal contours: Normal . Lungs: Clear. ?? Pleura/diaphragms: Normal. Procedure Note Tamara Harper MD - 02/12/2022 XR CHEST 2 VIEWS 02/12/2022 3:15 PM CLINICAL HISTORY/COMMENTS: cough COMPARISON: Radiograph of the abdomen 02/04/2022. TECHNIQUE: Frontal and lateral views of the chest w ere performed. FINDINGS: Soft tissues and extrathoracic findings: Battery pack projects over the left lateral lung. Bones: There is severe endplate sclerosi s in the lower thoracic spine with marked anterior osteophytosis in this patient with DISH. Cardiac and mediastinal contours: Normal . Lungs: Clear. Pleura/diaphragms: Normal. IMPRESSION 1. No acute cardiopulmonary disease. Performing Organization Address City/State/ZIP Code Phon e Number [facility] CT ANGIO HEAD NECK (02/12/2022 14:37 EDT) Anatomical Region Laterality Modality Head and Neck Computed Tomography Specimen Impressions [facility] RAD[facility]Y [facility] - 02/12/2022 17:24 EDT No evident acute intracranial abnormality; redemonstrated evolving left MCA territory infarct involving the posterior temporal lobe and parietal lobe on the left. No high-grade stenosis or occlusion of t he major arterial vasculature of the head and neck. STENOSIS REFERENCE: MILD: < 50% MODERATE: 50-69% SEVERE: 70-89% HAIRLINE/CRITICAL: 90-99% OCCLUDED: 100% I have personally reviewed the images an d the above interpretation and agree with the findings. Narrative [facility] - 02/12/2022 17:24 EDT EXAMS: CT HEAD WO CONTRAST CT ANGIOGRAM HEAD AND NECK WITH CONTRAST HISTORY: Neuro deficit, acute, stroke wilson spected TECHNIQUE: CT of the head without contra st. CT angiogram of the head and neck with intravenous contrast. Maximal intensity projected reformatted images were obtained, adjusted on an independent workstat ion, and reviewed prior to interpretatio n. Structured report code: [email or web address] COMPARISON: CT head 02/05/2022. FINDINGS: CT HEAD: PARENCHYMA: No evidence of acute infarction. Redemon strated hypodensity in the posterior temporal lobe and parietal lobe on the left, compatible with an evolving infarct. No acute parenchymal hemorrhage. No mass or midline shift. Redemonstrated mild diff use parenchymal volume loss and non- specific white matter changes. Unchanged stimulator lead position with a small amount of unchanged hypodensity in the frontal lobes adjacent to each lead. EXTRA-AXIAL SPACES: No acute extra-axial hemorrhage. No extr a-axial mass. VENTRICULAR SYSTEM: No acute intraventricular hemorrhage. No obstructive hydrocephalus. BONES: No concerning lesions. No evidence of fr acture. ORBITS: No significant abnormality. PARANASAL SINUSES/MASTOID AIR CELLS: Predominantly clear. EXTRACRANIAL SOFT TISSUES: Unremarkable. CTA HEAD: The intracranial internal carotid arteri es, anterior cerebral arteries, middle cerebral arteries, and posterior cerebral arteries are patent, without severe stenosis or occlusion. The intradural vertebr al arteries and basilar artery are paten t, without severe stenosis or occlusion. No aneurysms or vascular malformations. CTA NECK: There is a three-vessel, left-sided aort ic arch. The brachiocephalic and subclavian arteries are patent with no stenosis. The common carotid arteries are patent with no stenosis. There is mild Plaque in the carotid bifurcations witho ut significant stenosis. The cervical segments of the internal carotid arteries otherwise opacify normally with contrast. The cervical segments of the vertebral arteries are patent with no stenosis. NON-ANGIOGRAPHIC NECK FINDINGS: Bones: No fractures or concerning lesions. Dege nerative changes in the cervical and upper thoracic spine. Cervical Soft Tissues: Unremarkable. Lung Apices: No concerning abnormality. Procedure Note Antony Taylor MD - 02/12/2022 EXAMS: CT HEAD WO CONTRAST CT ANGIOGRAM HEAD AND NECK WITH CONTRAST HISTORY: Neuro deficit, acute, stroke wilson spected TECHNIQUE: CT of the head without contra st. CT angiogram of the head and neck with intravenous contrast. Maximal intensity projected reformatted images were obtained, adjusted on an independent workstation, and reviewed prior to interpretation. Structured repo rt code: [email or web address] COMPARISON: CT head 02/05/2022. FINDINGS: CT HEAD: PARENCHYMA: No evidence of acute infarction. Redemon strated hypodensity in the posterior temporal lobe and parietal lobe on the left, compatible with an evolving infarct. No acute parenchymal hemorrhage. No mass or midline shift. Redemonstrated mild diffuse paren chymal volume loss and non-specific white matter changes. Unchanged stimulator lead position with a small amount of unchanged hypodensity in the frontal lobes adjacent to each lead. EXTRA-AXIAL SPACES: No acute extra-axial hemorrhage. No extr a-axial mass. VENTRICULAR SYSTEM: No acute intraventricular hemorrhage. No obstructive hydrocephalus. BONES: No concerning lesions. No evidence of fr acture. ORBITS: No significant abnormality. PARANASAL SINUSES/MASTOID AIR CELLS: Predominantly clear. EXTRACRANIAL SOFT TISSUES: Unremarkable. CTA HEAD: The intracranial internal carotid arteri es, anterior cerebral arteries, middle cerebral arteries, and posterior cerebral arteries are patent, without severe stenosis or occlusion. The intradural vertebral arteries and basilar artery are patent, without s evere stenosis or occlusion. No aneurysms or vascular malformations. CTA NECK: There is a three-vessel, left-sided aort ic arch. The brachiocephalic and subclavian arteries are patent with no stenosis. The common carotid arteries are patent with no stenosis. There is mild Plaque in the carotid bifurcations witho ut significant stenosis. The cervical segments of the internal carotid arteries otherwise opacify normally with contrast. The cervical segments of the vertebral arteries are patent with no stenosis. NON-ANGIOGRAPHIC NECK FINDINGS: Bones: No fractures or concerning lesions. Dege nerative changes in the cervical and upper thoracic spine. Cervical Soft Tissues: Unremarkable. Lung Apices: No concerning abnormality. IMPRESSION No evident acute intracranial abnormalit y; redemonstrated evolving left MCA territory infarct involving the posterior temporal lobe and parietal lobe on the left. No high-grade stenosis or occlusion of t he major arterial vasculature of the head and neck. STENOSIS REFERENCE: MILD: < 50% MODERATE: 50-69% SEVERE: 70-89% HAIRLINE/CRITICAL: 90-99% OCCLUDED: 100% I have personally reviewed the images an d the above interpretation and agree with the findings. Performing Organization Address City/State/ZIP Code Phon e Number [facility] BLOOD BANK HOLD (02/12/2022 14:26 EDT) Pathologist [facility] Hold BB Spec will exp at [facility] 23:59, 3 days from BLOOD BANK collect date Specimen Blood - Venous blood (substance) Performing Organization Address City/State/ZIP Code Phon e Number [facility] BLOOD BANK [address] [place] [address] TROPONIN I (02/12/2022 14:25 EDT)Only the most recent of2 resultswithin the time period is included. Pathologist Sig [facility] Troponin I (ng/mL) <0.034 <0.034 ng/mL [facility] LABORATORY SERVICES Specimen Blood - Venous blood (substance) Narrative [facility] LABORATORY SERVICES - 02/12/2022 15:01 EDT The results of this assay can be falsely lowered due to the consumption of Biotin. Performing Organization Address City/State/ZIP Code Phon e Number [facility] LABORATORY [address] [place] [address] SERVICES PTT (02/12/2022 14:25 EDT)Only the most recent of2 resultswithin the time period is included. Pathologist Sig nature PTT 33 26 - 37 secs [facility] LABORATOR Y SERVICES Specimen Blood - Venous blood (substance) Performing Organization Address [facility] e Number [facility] LABORATORY [address] [place] [phone] SERVICES (ABNORMAL) PROTIME (02/12/2022 14:25 EDT)Only the most recent of2 resultswithin the time period is included. Pathologist Sig nature I.N.R. 1.1 0.9 - 1.1 Ratio [facility] LABORATORY SERVICES Pro Time 12.8 (H) 10.4 - 12.6 secs [facility] LABORATORY SERVICES Specimen Blood - Venous blood (substance) Narrative [facility] LABORATORY SERVICES - 02/12/2022 14:46 EDT Moderate Intensity Coumadin INR = 2.0-3.0 Adjustments in anticoagulant therapy dos e should be based on the INR and NOT on the Protime. Performing Organization Address [facility] / [facility] e Number [facility] LABORATORY [address] [place] [address] SERVICES (ABNORMAL) BASIC METABOLIC PANEL (BMP) (02/12/2022 14:25 EDT) Pathologist Sig nature Sodium 140 136 - 145 mmol/L [facility] LABORATORY SERVICES Potassium 4.1 3.5 - 5.0 mmol/L [facility] LABORATORY SERVICES Chloride 103 96 - 110 mmol/L [facility] LABORATORY SERVICES CO2 Total 29 22 - 32 mmol/L [facility] LABORATORY SERVICES Anion Gap 8 5 - 14 [facility] LABORATORY SERVICES Glucose 202 (H) 70 - 100 mg/dL [facility] LABORATORY SERVICES Calcium 9.1 8.5 - 10.5 mg/dL [facility] LABORATORY SERVICES BUN 18 10 - 26 mg/dL [facility] LABORATORY SERVICES Creatinine 0.95 0.66 - 1.25 mg/dL [facility] LABORATORY SERVICES eGFR 88 >60 mL/min/1.73m2 [facility] LABORATORY SERVICES Specimen Blood - Venous blood (substance) Performing Organization Address [facility] Phon e Number [facility] LABORATORY [address] [place] [address] SERVICES (ABNORMAL) COMPLETE BLOOD COUNT (02/09/2022 5:47 EDT)Only the most recent of5 resultswithin the time period is included. Pathologist Sig nature WBC 7.13 4.00 - 10.40 K/cmm [facility] LABORATORY SERVICES RBC 4.27 (L) 4.36 - 5.78 M/cmm [facility] LABORATORY SERVICES Hemoglobin 12.6 (L) 13.8 - 17.3 gm/dL [facility] LABORATORY SERVICES HCT 36.1 (L) 39.5 - 50.2 % [facility] LABORATORY SERVICES MCV 85 81 - 95 fl [facility] LABORATORY SERVICES MCH 29.5 27.6 - 33.0 pg [facility] LABORATORY SERVICES MCHC 34.9 32.8 - 36.4 gm/dL [facility] LABORATORY SERVICES RDW-CV 14.0 <14.2 % [facility] LABORATORY SERVICES RDW-SD 42.5 <46.0 fl [facility] LABORATORY SERVICES PLT 156 141 - 377 K/cmm [facility] LABORATORY SERVICES MPV 11.2 9.5 - 12.7 fl [facility] LABORATORY SERVICES Specimen Blood - Venous blood (substance) Performing Organization Address City/[facility] Phon e Number [facility]OR[facility]ORY [address] [place] [address] SERVICES CREATININE (02/09/2022 5:47 EDT)Only the most recent of6 resultswithin the time period is included. Pathologist Sig nature Creatinine 0.75 0.66 - 1.25 mg/dL [facility] LABORATORY SERVICES eGFR 100 >60 mL/min/1.73m2 [facility] Specimen Blood - Venous blood (substance) Performing Organization Address [facility]/ZIP [facility] Phon e Number [facility] [address] [place] [address] SERVICES ELECTROLYTES (02/09/2022 5:47 EDT)Only the most recent of6 resultswithin the time period is included. Pathologist Sig nature Sodium 140 136 - 145 mmol/L [facility] Potassium 3.9 3.5 - 5.0 mmol/L [facility] Chloride 108 96 - 110 mmol/L [facility] CO2 Total 24 22 - 32 mmol/L [facility] ORY SERVICES Anion Gap 8 5 - 14 [facility] SERVICES Specimen Blood - Venous blood (substance) Performing Organization Address City/State/ZIP Code Phon e Number [facility] [address] [place] [address] HEAD WO CONTRAST (02/05/2022 13:39 EDT) Anatomical Region Laterality Modality Head Computed Tomography Specimen Impressions [facility] - 02/05/2022 14:19 EDT Redemonstrated evolving left MCA territory infarcts without associated hemorrhage. I have personally reviewed the images an d the above interpretation and agree with the findings. 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 TECHNIQUE: CT head without contrast. Str uctured report code: [email or web address] COMPARISON: Head CT 02/04/2022. FINDINGS: PARENCHYMA: Areas of hypodensity are present in the left insula and adjacent temporal lobe, and separately within the posterior left temporal lobe and adjacent parietal lobe, slightly more apparent compared to the preceding CT, compatible with evolving i nfarcts. No acute parenchymal hemorrhage. No mass or midline shift. Redemonstrated mild diffuse parenchymal volume loss, nonspecific white matter changes, bilateral DBS leads. EXTRA-AXIAL SPACES: No extra-axial collection. No extra-axia l mass. No acute extra-axial hemorrhage. VENTRICULAR SYSTEM: No acute intraventricular hemorrhage. No obstructive hydrocephalus. VESSELS: Limited evaluation without IV contrast. Normal density in the dural venous sinuses. Calcifications are present in the carotid siphons. BONES: No concerning lesions. No evidence of fr acture. ORBITS: No significant abnormality. PARANASAL SINUSES/MASTOID AIR CELLS: Minor mural thickening noted in the para nasal sinuses. EXTRACRANIAL SOFT TISSUES: Partially imaged enteric tube. 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 Str uctured report code: [email or web address] COMPARISON: Head CT 02/04/2022. FINDINGS: PARENCHYMA: Areas of hypodensity are present in the left insula and adjacent temporal lobe, and separately within the posterior left temporal lobe and adjacent parietal lobe, slightly more apparent compared to the preceding CT, compatible with evolving infarcts. No ac [place] parenchymal hemorrhage. No mass or midline shift. Redemonstrated mild diffuse parenchymal volume loss, nonspecific white matter changes, bilateral DBS leads. EXTRA-AXIAL SPACES: No extra-axial collection. No extra-axia l mass. No acute extra-axial hemorrhage. VENTRICULAR SYSTEM: No acute intraventricular hemorrhage. No obstructive hydrocephalus. VESSELS: Limited evaluation without IV contrast. Normal density in the dural venous sinuses. Calcifications are present in the carotid siphons. BONES: No concerning lesions. No evidence of fr acture. ORBITS: No significant abnormality. PARANASAL SINUSES/MASTOID AIR CELLS: Minor mural thickening noted in the para nasal sinuses. EXTRACRANIAL SOFT TISSUES: Partially imaged enteric tube. IMPRESSION Redemonstrated evolving left MCA territo ry infarcts without associated hemorrhage. I have personally reviewed the images an d the above interpretation and agree with the findings. Performing Organization Address City/State/ZIP Code Phon e Number [facility] TRANSTHORACIC ECHO (TTE) COMPLETE W/DOPPLER W/CF W/ CONTRAST (02/05/2022 10:00 EDT) Pathologist Sig nature LA Atrial Length A2C 6.5 cm [facility] [place] Atrial Area A4C 33.4 cm2 [facility] LA ID/bsa, A-P 2.0 cm/m2 [facility] LV ID, ED, PLAX 5.0 3.5 - 6.0 cm [facility] LVIDD BY MMODE 5.0 cm [facility] LV ID, ES, PLAX 3.7 2.1 - 4.0 cm [facility] LA ID, A-P, ES 4.5 cm [facility] LV PW thickness, ED, PLAX 1.0 0.6 - 1.1 cm [facility] Aortic root ID 3.8 cm [facility] LV ejection fraction, 1-p 62 % [facility] A4C LVOT area 3.1 cm2 [facility] LV Systolic Volume Index 22.0 mL/m2 [facility] LV Diastolic Volume Index 54.0 mL/m2 [facility] LA Atrial Length A4C 7.2 cm [facility] LVOT ID, S 2.0 cm [facility] EF 60 % [facility] LA volume, ES, BP 128.0 ml [facility] LA volume/bsa, ES, A4C 53.0 ml/m2 [facility] LA volumes, ES, A4C 117.0 ml [facility] LA volume/bsa, ES, BP 58.0 ml/m2 [facility] LV Systolic Volume 49 mL [facility] LV Diastolic Volume 120 mL [facility] Interventricular Septum to 1 [facility] Posterior Wall Thickness Ratio IVS thickness, ED, PLAX 1.0 cm [facility] RE Ascending aorta ID, a-p 3.1 cm [facility] LA Atrial Area A2C 33.4 cm2 [facility] LA/aortic root ratio 1.18 [facility] LV end diastolic volume 95 ml [facility] 1-p A2C LV ejection fraction, 1-p 53 % [facility] A2C LV end-diastolic volume, 142 ml [facility] 1-p A4C Specimen Narrative [facility] - 02/05/2022 10:31 E DT ?Left??Ventricle: Left ventricular systolic function was normal with an ejection fraction of 55-60%. Possible hy pokinesis of the mid-apical inferoseptal wall. ?Right??Ventricle: Right ventricular systolic function was normal. ?IVC/SVC: The inferior vena cava was moderately dilated. ?Left??Atrium: No right to left shunting observed with agitated saline contrast injection. Performing Organization Address City/State/ZIP Code Phon e Number [facility] THYROID CASCADE (02/05/2022 4:15 EDT) Pathologist Sig nature TSH 4.22 0.47 - 4.68 mIU/L [facility] Specimen Blood - Venous blood (substance) Narrative [facility] - 02/05/2022 5:38 EDT NOTE: The results of this assay can be falsely lowered due to the consumption of Biotin. Performing Organization Address [facility] Code Phon e Number [facility] [address] [place] [address] SERVICES ALT (02/05/2022 4:15 EDT) Pathologist Sig nature ALT 15 <50 U/L [facility] Specimen Blood - Venous blood (substance) Performing Organization Address [facility] Phon e Number [facility] [address] [place] [address] SERVICES AST (02/05/2022 4:15 EDT) Pathologist Sig nature AST 22 15 - 46 U/L [facility] Specimen Blood - Venous blood (substance) Performing Organization Address [facility] Phon e Number [facility] [address] [place] [address] SERVICES PHOSPHORUS (02/05/2022 4:15 EDT) Pathologist Sig nature Phosphorus 3.6 2.5 - 4.5 mg/dL [facility] SERVICES Specimen Blood - Venous blood (substance) Performing Organization Address [facility] Phon e Number [facility] [address] [place] [phone] SERVICES (ABNORMAL) MAGNESIUM (02/05/2022 4:15 EDT) Pathologist Sig nature Magnesium 1.5 (L) 1.7 - 2.8 mg/dL [facility] SERVICES Specimen Blood - Venous blood (substance) Performing Organization Address [facility] Phon e Number [facility] [address] [place] [address] SERVICES (ABNORMAL) HEMOGLOBIN A1C (02/05/2022 4:15 EDT) Hemoglobin A1c 6.8 (H) <5.7 % [facility] Comment: LABORATORY SERVICES Glycemic Status References: Normal: ??<5.7% Pre-Diabetes: ??5.7% - 6.4% Diagnostic of Diabetes: ??> or = 6.5% (if confirmed) Est Avg Glucose 148Comment: The eAG mg/dL [facility] represents the A1c LABORATORY SERVICES result expressed as average glucose in mg/dL. Specimen Blood - Venous blood (substance) Performing Organization Address [facility]/ZIP Code Phon e Number [facility] [address] [place] [address] SERVICES (ABNORMAL) CALCIUM (02/05/2022 4:15 EDT) Pathologist Sig nature Calcium 8.3 (L) 8.5 - 10.5 mg/dL [facility] Specimen Blood - Venous blood (substance) Performing Organization Address [facility] Code Phon e Number [facility] [address] [place] [address] SERVICES (ABNORMAL) LIPID PROFILE (INCLUDES CHOLESTEROL, TRIGLYCERIDES, HDL, LDL) (02/05/2022 4:15 EDT) Cholesterol 117Comment: Note <200 mg/dL [facility] LABORATORY goals will differ SERVICES between patients based on cardiac risk factors and current medical therapy. HDL 29 (L)Comment: >=40 mg/dL [facility] Note that [facility] therapeutic goals SERVICES will differ between patients based on cardiac risk factors and current medical therapy. LDL, Calculated 48Comment: Note <160 mg/dL [facility] LABORATORY goals will differ SERVICES between patients based on cardiac risk factors and current medical therapy. Triglyceride 201 (H)Comment: <=150 mg/dL [facility] Note that [facility] therapeutic goals SERVICES will differ between patients based on cardiac risk factors and current medical therapy. Chol/HDL Ratio 4.0Comment: No See Note [facility] reference [facility] LABORATORY has been SERVICES established for CHOL/HDL ratio. Non HDL Cholesterol 88Comment: Note <160 mg/dL [facility] LABORATORY goals will differ SERVICES between patients based on cardiac risk factors and current medical therapy. Specimen Blood - Venous blood (substance) Performing Organization Address [facility]/ZIP [facility] Phon e Number [facility] [address] [place] [address] SERVICES XR FEEDING TUBE PLACEMENT (02/04/2022 17:37 EDT) Anatomical Region Laterality Modality Abdomen Computed Radiography Specimen Impressions [facility] - 02/05/2022 8:35 EDT Findings/ Impression: The orogastric feeding tube terminates i n the fourth segment of the duodenum, near the ligament of Treitz. This is not a dedicated view of the ches t nor abdomen. Obtain dedicated views if necessary. I have personally reviewed the images an d the above interpretation and agree with the findings. Narrative [facility] - 02/05/2022 8:35 EDT XR FEEDING TUBE PLACEMENT ??02/04/2022 5:10 PM Clinical History/Comments: NGT placement verification Comparison: None Technique: AP view lower chest/upper abd omen Procedure Note Kanchan Young MD - 02/05/2022 XR FEEDING TUBE PLACEMENT 02/04/2022 5:10 PM Clinical History/Comments: NGT placement verification Comparison: None Technique: AP view lower chest/upper abd omen IMPRESSION Findings/ Impression: The orogastric feeding tube terminates i n the fourth segment of the duodenum, near the ligament of Treitz. This is not a dedicated view of the ches t nor abdomen. Obtain dedicated views if necessary. I have personally reviewed the images an d the above interpretation and agree with the findings. 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 Time of femoral puncture: 1507 Time of first-pass with the stent retrie lupe: 1517 Time of complete rastafarian of flow in the middle cerebral artery: 1517 TICI Classification of final angiogram: TICI 3 I have personally reviewed the images an d the above interpretation and agree with the findings. Narrative [facility] - 02/08/2022 13:24 EDT Preoperative diagnosis: Distal left M1 occlusion Postoperative Diagnosis: Same Surgeons: Dr. Fidel Frausto Dynamo Tender:Dr. Yemi Wren Anesthesia: General anesthesia Interventional procedure: 1. ??Mechanical embolectomy using the 4 x 40 Solitaire stent retriever and React 68 aspiration catheter. Catheterization of the following vessels : 1. Left internal carotid artery 2. Left middle cerebral artery Angiographic interpretation of the follo wing images: 1. Left cerebral carotid artery angiogra m Followup angiogram: 1. Left cerebral carotid artery angiogr am after thrombectomy. Hemostasis: Angio-Seal closure device Indications: The patient is a 66-year-ol d male with acute onset of aphasia and weakness. Imaging revealed occlusion of the left middle cerebral artery. He was transferred from an outside institution for mechanical thrombectomy. Procedure in detail and findings: The ri sks and benefits of the procedure were explained to the patient's family and consent was obtained.The patient was brought to the neurointerventional suite and judith penelope in the supine position upon the [facility] ography table. Prior to the procedure, a timeout was co mpleted verifying correct patient, date of , procedure, site, positioning and special equipment as applicable. After appropriate monitoring was initiat ed, sedation was administered. Both groins were prepped and draped in sterile fashion. Lidocaine 1% was used for local anesthesia. A micropuncture needle was used to access the right common femoral sarah ry. The needle was exchanged over an Amplatz wire for an 8 Belgian pressure transducing sheath A [employer] catheter was advanced over Glidewire through an 8 Belgian Ballast guide catheter into the left internal carotid artery. Left internal carotid artery cerebral angiogram was performed. T his shows occlusion of the distal M1 seg ment. Small frontal branch is patent. The ophthalmic is patent. The anterior cerebral arteries are patent. Using roadmap guidance, a Phenom 21 micr ocatheter was advanced over a Synchro 2 microwire through the React 68 ??aspiration catheter into the internal carotid artery then into the middle cerebral artery . The microcatheter and wire were advanc ed through the thrombus into the left middle cerebral artery. Aspiration was initiated. A 4 mm x 40 mm Solitaire stent was then deployed. The microcatheter was re moved. Aspiration catheter was advanced into the thrombus. The system was then removed while aspirating through the guide catheter. Follow-up internal carotid artery angiog chay shows normal opacification of the middle cerebral artery without residual filling defect. The anterior cerebral artery opacifies normally on this injection. After thorough review of the images, the sheath was removed and an Angio-Seal closure the was used to achieve hemostasis. Dr. Fidel Frausto was present during the entire procedure and the interpretation of images. Procedure Note Fidel Frausto MD - 02/08/2022 Preoperative diagnosis: Distal left M1 o cclusion Postoperative Diagnosis: Same Surgeons: Dr. Fidel Frausto Dynamo Tender:Dr. Yemi Wren Anesthesia: General anesthesia Interventional procedure: 1. Mechanical embolectomy using the 4 x 40 Solitaire stent retriever and React 68 aspiration catheter. Catheterization of the following vessels : 1. Left internal carotid artery 2. Left middle cerebral artery Angiographic interpretation of the follo wing images: 1. Left cerebral carotid artery angiogra m Followup angiogram: 1. Left cerebral carotid artery angiogr am after thrombectomy. Hemostasis: Angio-Seal closure device Indications: The patient is a 66-year-ol d male with acute onset of aphasia and weakness. Imaging revealed occlusion of the left middle cerebral artery. He was transferred from an outside institution for mechanical thrombectomy. Procedure in detail and findings: The ri sks and benefits of the procedure were explained to the patient's family and consent was obtained.The patient was brought to the neurointerventional suite and placed in the supine position upon the angiography tab le. Prior to the procedure, a timeout was co mpleted verifying correct patient, date of , procedure, site, positioning and special equipment as applicable. After appropriate monitoring was initiat ed, sedation was administered. Both groins were prepped and draped in sterile fashion. Lidocaine 1% was used for local anesthesia. A micropuncture needle was used to access the right common femoral artery. The needle was exchanged over an Amplatz wire for an 8 Belgian pressure transducing sheath A [place] Tran catheter was advanced over Glidewire through an 8 Belgian Ballast guide catheter into the left internal carotid artery. Left internal carotid artery cerebral angiogram was performed. This shows occlusion of the distal M1 segment. Smal l frontal branch is patent. The ophthalmic is patent. The anterior cerebral arteries are patent. Using roadmap guidance, a Phenom 21 micr ocatheter was advanced over a Synchro 2 microwire through the React 68 aspiration catheter into the internal carotid artery then into the middle cerebral artery. The microcatheter and wire were advanced thr ough the thrombus into the left middle cerebral artery. Aspiration was initiated. A 4 mm x 40 mm Solitaire stent was then deployed. The microcatheter was removed. Aspiration catheter was advanced into the thrombus. The system was then removed while aspirating through the guide catheter. Follow-up internal carotid artery angiog chay shows normal opacification of the middle cerebral artery without residual filling defect. The anterior cerebral artery opacifies normally on this injection. After thorough review of the images, the sheath was removed and an Angio-Seal closure the was used to achieve hemostasis. Dr. Fidel Frausto was present during the entire procedure and the interpretation of images. IMPRESSION The patient has undergone mechanical thr ombectomy using a 4 x 40 Solitaire stent and React 68 aspiration catheter for treatment of an acute occlusion of the distal M1 segment of the left middle cerebral artery. Time of femoral puncture: 1507 Time of first-pass with the stent retrie lupe: 1517 Time of complete rastafarian of flow in the middle cerebral artery: 1517 TICI Classification of final angiogram: TICI 3 I have personally reviewed the images an d the above interpretation and agree with the findings. Performing Organization Address City/State/ZIP Code Phon e Number [facility] MO AN ELECTIVE ENDOTRACHEAL AIRWAY, MO ANESTHESIA NON-TIMED PLACEHOLDER (02/04/2022 14:56 EDT) Narrative Conrado Vila CRNA - 02/04/2022 14:56 EDT Conrado Vila CRNA ? 02/04/2022 15:00 Airway Date/Time: 02/04/2022 14:56 Urgency: elective Airway not difficult General Information and Staff Patient location during procedure: OR Anesthesiologist: Jared Maravilla MD Resident/PARTS INTERPRETER: Conrado Vila CRNA Performed: anesthesiologist and resident /PARTS INTERPRETER/AA Indications and Patient Condition Indications for airway management: anest hesia Sedation level: GA Preoxygenated: yes Patient position: sniffing Ventilation assessment: 0 - not attempte d Final Airway Details Final airway type: endotracheal airway Successful airway: ETT Cuffed: yes Successful intubation technique: video l aryngoscopy Fajardo Facilitating devices/methods: intubating stylet Endotracheal tube insertion site: oral Blade: Vonnie Blade size: #3 ETT size (mm): 7.5 Cormack-Lehane Classification: grade IIa - partial view of glottis Placement verified by: chest auscultatio n and capnometry Measured from: teeth ETT to teeth (cm): 23 Number of attempts at approach: 1 Additional Comments No problems Brijesh assisting CT HEAD WO CONTRAST (02/04/2022 14:45 EDT) Anatomical Region Laterality Modality Head Computed Tomography Specimen Impressions [facility] - 02/04/2022 16:28 EDT 1. 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 2. ??Bithalamic frontal approach electro nkaia. I have personally reviewed the images an d the above interpretation and agree with the findings. Narrative [facility] - 02/04/2022 16:28 EDT EXAM: CT HEAD WO CONTRAST HISTORY: distal m1 occlusion ?? TECHNIQUE: CT head without contrast. Str uctured report code: [email or web address] COMPARISON: None. FINDINGS: PARENCHYMA: There is loss of lam-white differentiat ion in the posterior left parietal (axial #64) and temporal lobes (axial #55-58). No parenchymal hemorrhage. No mass or midline shift. There is global cerebral atrophy. Scatte red hypodensities in the supratentorial white matter, non-specific, but likely representing chronic microangiopathic changes. Two frontal-approach electrodes terminat ing in the thalami bilaterally. EXTRA-AXIAL SPACES: No extra-axial collection. No extra-axia l mass. VENTRICULAR SYSTEM: Normal size and configuration. No obstru ctive hydrocephalus. VESSELS: Limited evaluation without IV contrast. Normal density in the dural venous sinuses. BONES: No concerning lesions. No evidence of fr acture. ORBITS: No significant abnormality. PARANASAL SINUSES/MASTOID AIR CELLS: Predominantly clear. EXTRACRANIAL SOFT TISSUES: Unremarkable. Procedure Note Jose Menard MD - 02/04/2022 EXAM: CT HEAD WO CONTRAST HISTORY: distal m1 occlusion TECHNIQUE: CT head without contrast. Str uctured report code: [email or web address] COMPARISON: None. FINDINGS: PARENCHYMA: There is loss of lam-white differentiat ion in the posterior left parietal (axial #64) and temporal lobes (axial #55-58). No parenchymal hemorrhage. No mass or midline shift. There is global cerebral atrophy. Scatte red hypodensities in the supratentorial white matter, non-specific, but likely representing chronic microangiopathic changes. Two frontal-approach electrodes terminat ing in the thalami bilaterally. EXTRA-AXIAL SPACES: No extra-axial collection. No extra-axia l mass. VENTRICULAR SYSTEM: Normal size and configuration. No obstru ctive hydrocephalus. VESSELS: Limited evaluation without IV contrast. Normal density in the dural venous sinuses. BONES: No concerning lesions. No evidence of fr acture. ORBITS: No significant abnormality. PARANASAL SINUSES/MASTOID AIR CELLS: Predominantly clear. EXTRACRANIAL SOFT TISSUES: Unremarkable. IMPRESSION 1. Acute infarction of the posterior lef t parietal and temporal lobes. 2. Bithalamic frontal approach electrode s. I have personally reviewed the images an d the above interpretation and agree with the findings. Performing Organization Address City/[facility]/ZIP Code Phon e Number [facility] HOLD BLUE TOP (02/04/2022 14:40 EDT) Pathologist Sig nature Hold Hold [facility] SERVICES Specimen Blood - Venous blood (substance) Performing Organization Address [facility] Code Phon e Number [facility] [address] [place] [address] SERVICES (ABNORMAL) SCREENING GLUCOSE (02/04/2022 14:40 EDT) Pathologist Sig nature Glucose, Screening 162 (H) 70 - 100 mg/dL [facility] SERVICES Specimen Blood - Venous blood (substance) Performing Organization Address [facility] Code Phon e Number [facility] [address] [place] [address] SERVICES TYPE AND SCREEN (02/04/2022 14:40 EDT) ABO A [facility] Rh Factor Positive [facility] Antibody Screen Negative [facility] Specimen Expires: 02/07/2022 @ 23:59 [facility] Specimen Blood - Venous blood (substance) Performing Organization Address [facility]/ZIP Code Phon e Number [facility] [address] [facility] [place] [address] BUN (02/04/2022 14:40 EDT) Pathologist Sig nature BUN 12 10 - 26 mg/dL [facility] RY SERVICES Specimen Blood - Venous blood (substance) Performing Organization Address [facility]/ZIP Code Phon e Number [facility] [address] [place] [address] SERVICES MO CRITICAL CARE, E/M 30-74 MINUTES, HC - CRITICAL CARE ILL/INJURED PATIENT INIT 30-74 MIN (02/04/2022 14:30 EDT) Narrative [facility] EKG - 02/04/2022 14:3 0 EDT Estela Vigil MD ? 02/05/2022 22:51 Critical Care Performed by: Estela Vigil MD Authorized by: Estela Vigil MD Critical care provider statement: ??Critical care time (minutes): ??60 ??Critical care time was exclusive of: ??Separately billable procedures and treating other patients and teaching jeremi e ??Critical care was necessary to treat or prevent imminent or life-threatening deterioration of the fo llowing conditions: ??EVENT MANAGER failure or compromise and dehydration ??Critical care was time spent personal ly by me on the following activities: ??Blood draw for specimens, development of treatment plan with patient or surrogate, discussions with c onsultants, evaluation of patient's response to treatment, examina tion of patient, interpretation of cardiac output measurements, obtaining h istory from patient or surrogate, ordering and performing treatments and i nterventions, ordering and review of laboratory studies, ordering and revi ew of radiographic studies, pulse oximetry, re-evaluation of patient's con dition and review of old charts Performing Organization Address City/State/ZIP Code Phon e Number [facility] EKG from Last 3 Months Insurance Payer Benefit Plan / Subscriber ID Effective Phone Address T ype Group Dates MEDICARE MEDICARE A/B [id number] 2013-Pres [address] edicare GL ent [id number] [facility] [place] [address] [employer] [facility] [id number] 2020-Pre [phone]cial GL SUPPLEMENTAL sent [phone] [place] [address] Sharlene,Timbo R Personal/Family Self 1955 [address] [place] [address] Sharlene,Timbo R Personal/Family Self 1955 [address] [place] [address] Advance Directives For more information, please contact: [phone] Latest Code Status on File Code Status Date Activated Date Inactivated Comments Full Code 02/10/2022 11:41 02/22/2022 12:57 When the patient has NO PULSE: Full Code / CPR Who Made the Decision? Patient Full Code 02/04/2022 15:11 02/10/2022 9:48 When the patient has NO PULSE: Full Code / CPR Who Made the Decision? Patient Care Teams Health And Safety Manager Relationship Specialty Start Date End Date Griselda Stanley MD PCP - General 06/06/12 [address] ,[facility] [address] [place] [address]
--- OUTSIDE RECORDS SUMMARY | 2022-02-26 04:08 | XMS_ITS | Encounter Summary ---
:1955 Author Organization [facility] Address [address] [place] [id number] Care Team Providers Name Role Phone Griselda Stanley MD Primary Care Provider Reason for Referral Consult (See Order Priority) - Authorization Not Required Specialty Diagnoses / Procedures Referred By Contact Refer red To Contact Neurology Diagnoses Occlusion of left middle cerebral artery Eda Machado MD Commichau, Christopher S [address] [facility] [place] [phone] [place] [address] [facility] [address] [phone] Phone: Fax: Referral ID Status Reason Start Expiration Visits Visits Date Date Requested Authorized [id number] Authorization Specialty 02/10/2022 1 1 Not Required Services Required Question Answer Reason for Request: hospital discharge Reason for Visit Reason Comments Cerebrovascular Accident Transfer from [facility] for [facility]. Auth/Cert Specialty Diagnoses / Procedures Referred By Contact Refer red To Contact Diagnoses Aphasia Stroke (HCC-CMS) (HCC) Dysarthria Arterial ischemic stroke, MCA (middle cerebral artery), left, acute (HCC-CMS) (HCC) Acute CVA (cerebrovascular accident) (HCC-CMS) (HCC) CVA Referral ID Status Reason Start Date Expiration Date Visits Requ ested Visits Authorized [id number] 1 1 Encounter Details Date Type Department Care Team Description 02/04/2022 - [facility] Robin Vigil MD [address] [place] [address], Level 1 [place] [phone] Arterial ischemic stroke, MCA (middle ce rebral artery), left, acute ([facility]) ([facility]) (Primary Dx); 02/10/2022 Encounter Neurosurgery Unit Analy Ramirez MD [facility], Level 2 [place] [phone] Stroke ([facility]) (HCC); [address] Gilbert Whitley MD [address] [place] [phone] Aphasia; [place] [address] Dysarthria; [phone] Occlusion of le ft middle cerebral artery Social History Tobacco Use Types Packs/Day Years Used Date Unknown If Ever Smoked Smokeless Tobacco: Never Used Sex Assigned at Date Recorded Not on file COVID-19 Exposure Response Date Recorded In the last 10 days, have you been in contact Unable to asse ss 02/04/2022 12:31 EDT with someone who was confirmed or suspected to have Coronavirus/COVID-19? documented as of this encounter Last Filed Vital Signs Vital Sign Reading Time Taken Comments Blood Pressure 147/103 02/10/2022 0806 EDT Pulse 65 02/10/2022 0651 EDT Temperature 35.9 ??C (96.6 ??F) 02/10/2022 0806 EDT Respiratory Rate 13 02/10/2022 0806 EDT Oxygen Saturation 98% 02/10/2022 0806 EDT Inhaled Oxygen Concentration - - Weight 100.2 kg (221 lb) 02/05/2022 0900 EDT Height 182.9 cm (6') 02/05/2022 0900 EDT Body Mass Index 29.97 02/05/2022 0900 EDT documented in this encounter Discharge Summaries Gilbert Barksdale MD - 02/10/2022 0704 EDT Stroke Discharge Summary Primary Care Provider: Griselda Stanley Attending Physician: Gilbert Barksdale MD Admit Date: 02/04/2022 Discharge Date: 02/10/2022 Disposition: Acute rehab Problems Presenting Problem: L MCA stroke Principal/Final Diagnosis: L MCA stroke Additional Problems Managed in the Hospital Active Hospital Problems Diagnosis Date Noted ??? *Arterial ischemic stroke, MCA (middle cerebral artery), left, acute ([facility]) ([facility]) 02/04/2022 ??? Acute CVA (cerebrovascular accident) ([facility]) ([facility]) 02/04/2022 ??? Stroke ([facility]) ([facility]) 02/04/2022 ??? Aphasia 02/04/2022 ??? Dysarthria 02/04/2022 Resolved Hospital Problems No resolved problems to display. Hospital Course Timbo Su??is a 66 y.o.??male??with a PMHx of progressive parkinson disease s/p DBS, polyneuropathy c/b R foot drop, atrial fibrillation (not on AC), T2DM, HLD, who presented as a transfer from [facility] on 02/04/22 as a stroke code after being found to have a L MCA occlusion on CTA,. He was outside therapeutic window for tPA and subsequent plan for thrombectomy upon transfer. W 02/04 at 0530. NIH on arrival was 11, MRS 3 (d/t PD). He underwent mechanical thrombectomy which revealed occlusion of L anterior M2 branch. TICI 3 flow (complete perfusion) achieved after first pass w/ good BP controlthereafter and successful procedure. An NG tube was placed on admission with priority for administration of PD medications. Etiology of L MCA occlusion thought to be cardio embolic in the setting of atrial fibrillation, not on anticoagulation, although he carries several other vascular risk factors. He continued to clinically improve s/p EVT with intermittent aphasia and repeat imaging at the 24 hour chio was stable. He tra nsferred to step down 02/06 with advancement of diet and stable for the floor on 02/06. Physical therapy Evaluated, recommending AR vs MENA and ultimately pt was deemed appropriate for AR. Plan to follow-up Neurology and Cardiology Given his underlying concern for cardio-embolic source, he may benefit from placement of a watchman device in the future as he is at high risk for fall on ac. Acute infarct secondary to L-M1 occlusion s/p mechanical??thrombectomy - aspirin 81 mg PO daily?? - atorvastatin 40 mg PO daily (increased from DOOR CUTTER 10 mg) - F/u Neurology outpt ?? Chronic atrial fibrillation - DOOR CUTTER metoprolol tartrate 50 mg BID - No therapeutic AC at this time given recent stroke (was not started previously d/t high fall risk), but will need to further discuss with PCP re: risks/benefits to start given new stroke. Can start 10-14 days following stroke - F/u PCP outpatient ?? Parkinson's Disease s/p DBS Sees Dr. Hooper from [facility] and also [facility]ER Winnie Stevenson of their neuro dept. Recently had DBS interrogated. - DOOR CUTTER regimen of carbidopa-levodopa 25-250 mg 1 tab QID + entacapone 200 mg TID Allergies and Immunizations Not on File There is no immunization history on file for this patient. Transition of Care Plans Condition at Discharge Improved Neurological Exam at Discharge HEENT: Masked facies, decreased blinking. ?? Mental status: Awake/alert. Aphasia improved, mild dysarthria. Follows simple commands. Intermittently conversant. Able to name some high and low frequency items, including glasses, elbow. Calls thumb numb. Able to read short phrases. Difficulty repeating 5-word sentences. ?? Cranial nerves: CN I: Deferred CN II: Visual ward full to confrontation. CN III-IV &??: EOMI CN V: Normal masseter bulk, tone. V1-V3 intact to light touch. CN VII: face symmetric CN VIII: Hearing is intact to voice. CN IX-X: Palate elevates symmetrically on activation. No hoarseness or dysarthria CN XI: Symmetric shoulder shrug. SCM/traps are full strength CN XII: Tongue protrusion midline, without deviation, atrophy, or fasciculations ? Motor:?? Increased tone of the bilateral UEs w/ L rigidity > R and resting tremor R > L. ?? Strength:?Right?Left Elbow flexion?5/5?5/5 Elbow extension?5/5?5/5 Wrist extension?4+/5?5/5 Grasp?5/5?5/5 ?? Hip flexion 4+/5 5/5 Knee extension 5/5 5/5 Knee flexion 5/5 5/5 Ankle dorsiflexion 5/5 5/5 Ankle plantar flexion 5/5 5/5 ?? Sensory:??Sensation is intact to light touch in all four extremities. Double simultaneous sensation intact. Results Pending at Discharge Test results still pending from this admission None Relevant Studies at Discharge CT Head wo Contrast 02/04/22 IMPRESSION 1. 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 2. ??Bithalamic frontal approach electrodes. ?? CT Head wo Contrast 02/05/22 IMPRESSION Redemonstrated evolving left MCA territory infarcts without associated hemorrhage. Last Lab Results at Discharge BUN: Lab Results Component Value Date BUN 12 02/04/2022 Creatinine: Lab Results Component Value Date CREATININE 0.75 02/09/2022 CBC: Lab Results Component Value Date WBC 7.13 02/09/2022 RBC 4.27 (L) 02/09/2022 HGB 12.6 (L) 02/09/2022 HCT 36.1 (L) 02/09/2022 MCV 85 02/09/2022 MCH 29.5 02/09/2022 MCHC 34.9 02/09/2022 PLT 156 02/09/2022 DIFFTYPE Auto 02/04/2022 Electrolytes: Lab Results Component Value Date NA 140 02/09/2022 K 3.9 02/09/2022 CL 108 02/09/2022 CO2 24 02/09/2022 NIHSS Criteria 02/04/2022 02/04/202202/05/2022 Test Interval Baseline 2 hr post treatment Other (Comment) Exam Date 02/04/2022 02/04/2022 02/05/2022 Exam Time 1447 1824 1130 LOC 0 0 1 LOC Questions 2 2 2 LOC Commands 2 2 0 Best Gaze 1 1 0 Visual 1 2 1 Facial Palsy 0 0 0 Left Arm, Motor 0 0 0 Right Arm, Motor 0 0 0 Left Leg, Motor 0 0 0 Right Leg, Motor 0 0 - Limb Ataxia 0 0 Untestable Sensory 0 0 0 Best Language 3 3 2 Dysarthria 2 2 2 Extinction/Inatten. 0 1 0 Total Score 11 13 8 Discharge Follow Up Discharge Summary Completed: Yes POLLY CRUZ MD 02/06/2022 12:23 Eda Machado MD Neurology, PGY-2 PGR [id number] 02/10/22 7:04 Attestation statement: I saw and examined the patient with the resident on 02/10/2022. I agree withthe findings and plan of care documented in the resident's note. I spent more than 30 minutes in discharge planning, chart review, rounding and examination of patient etc Gilbert Barksdale MD MSc documented in this encounter Medications at Time of Discharge Medication Sig Dispensed Refills Start Date End Date acetaminophen (TYLENOL) Take 2 Tablets by 0 02/21 325 mg tablet mouth every 4 hours as needed for Pain. aspirin chewable 81 mg Take 1 Tablet by 0 022 tablet mouth daily. atorvastatin (LIPITOR) 10 Take 4 Tablets by 60 Tablet 2 09/2021 mg tablet mouth daily. carbidopa-levodopa Take 1 Tablet by 0 (SINEMET) 25-250 mg per mouth 4 times tablet daily. DULoxetine (CYMBALTA) 30 Take 60 mg by mouth 0 mg delayed release capsule daily. entacapone (COMTAN) 200 mg Take 200 mg by 0 tablet mouth 3 times daily. gabapentin (NEURONTIN) 100 Take 100 mg by 0 mg capsule mouth 2 times daily. metFORMIN (GLUCOPHAGE) 500 Take 1 Tablet by 30 Tablet 0 mg tablet mouth daily with breakfast. metoprolol TARtrate Take 50 mg by mouth 0 (LOPRESSOR) 50 mg tablet 2 times daily. polyethylene glycol 3350 Take 17 g by mouth 0 (MIRALAX) 17 gram packet daily as needed (constipation). senna (SENOKOT) 8.6 mg Take 2 Tablets by 0 2021 tablet mouth at bedtime. glipiZIDE (GLUCOTROL) 5 mg Take 5 mg by mouth 0 02/22/2022 tablet 2 times daily. insulin aspart U-100 Sliding scale as 0 2 02/22/2022 (NOVOLOG FLEXPEN) 100 above unit/mL (3 mL) injectable pen documented as of this encounter Ordered Prescriptions Prescription Sig Dispensed Refills Start Date End Date aspirin chewable 81 mg Take 1 Tablet by 0 022 tablet mouth daily. atorvastatin (LIPITOR) 10 Take 4 Tablets by 60 Tablet 2 09/2021 mg tablet mouth daily. insulin aspart U-100 Sliding scale as 0 2 02/22/2022 (NOVOLOG FLEXPEN) 100 above unit/mL (3 mL) injectable pen documented in this encounter Discharge Disposition Disposition Code Departure Means Destination Rehab Facility Physical Acute R ehab documented in this encounter Progress Notes Zahida Patiño, PT - 02/10/2022 0918 EDT [facility] Rehabilitation Therapy [facility] Therapy [facility] Physical Therapy Discontinue/Discharge Note Date: 02/13/2022 SUBJECTIVE: None OBJECTIVE: The patient has been discharged from the hospital to acute rehab. Please refer to the Physical Therapy Initial Evaluation Note 02/07/2022 for details. ASSESSMENT: Unable to assess his current status as the patient was not seen for any additional therapy sessions. GOALS: All goals discontinued. PLAN: Discontinue physical therapy. Zahida Patiño, PT 02/13/2022 9:00 Elayne Carmichael OTR-Dona - 02/10/2022 0918 EDT [facility] Rehabilitation Therapy [facility] Occupational Therapy Discontinue/Discharge Note Date: 02/11/2022 SUBJECTIVE: None OBJECTIVE: The patient has been discharged from the hospital. Please refer to the Occupational Therapy Initial Evaluation Note for details. ASSESSMENT: Unable to assess his current status as the patient was not seen for any additional therapy sessions. GOALS: All goals discontinued. PLAN: Discontinue occupational therapy. LARON Mak 02/11/2022 9:06 Dee Zee RN - 02/09/2022 1616 EDT Eligible: Patient is determined to be Eligible for an Acute Inpatient Rehabilitation level of care based on his/her payer criteria Patient has accepted bed offer at the Acute Inpatient Rehabilitation Unit at [facility]. Refer to IP Rehab Pre-Admission Assessment Note in Inpatient Rehabilitation Medical record for further details. Rehab Admission Date: 02/10/2022 Transportation: [facility] Rehab Admission Time: 0900 Rehab Floor/Number for Report: Rehab 2 (7-1427) Dee Zee RN - 02/09/2022 1615 EDT [facility] Inpatient Acute Rehabilitation Unit - [place], [place] Pre-Admission Screening Name: Timbo Su : 1955 Age: 66 y.o. Sex: male Payer: Medicare Rehab Admission Date: 02/10/2022 Rehab Unit: Rehab 2 From: [id number]/[id number] Arriving via [facility] Time: 0900 Height: 182.9 cm (72) Weight : 100.2 kg (221 lb) Body mass index is 29.97 kg/m??. Admit W/C: Standard, Regular foot rests Bed to wheelchair transfers for transfer: with assist of 2 helpers and with robin steady lift Immediate Rehab Needs: Precautions: Fall/Aspiration Covid19 vaccination/testing status: neg covid 02/04/22, repeat test prior to admission Safety/Behavior: High fall risk, no impulsive behaviors documented this admission Lines/Tubes: R AC PIV Special Bed or Equipment Needs:Robin steady lift, R foot brace, Additional needs (cultural, dietary, communication):Expressive aphasia, Dysphagia 3 diet Rehab Nursing , Occupational Therapy , Physical Therapy , Speech and Language Pathology , Medical Psychology and Social Work Primary Rehab Diagnosis: Parkinsonism and Stroke Hx of Present Illness & Complications: Timbo Su??is a 66 y.o.??male??with L MCA occlusion on CTA, outside therapeutic window for tPA and now s/p mechanical thrombectomy. Etiology of L MCA occlusion remains cryptogenic, though there issuspicion for cardioembolic source given A fib not on AC, however he carries several other vascular risk factors. Acute Admission Date: 02/04/2022 Expected length of Stay: 10-14 days Expected duration of therapy treatment at inpatient acute rehab unit 10-14 days Ongoing Medical Concerns: Patient Active Problem List Diagnosis ??? Acute CVA (cerebrovascular accident) ([facility] ([facility]) ??? Stroke ([facility]) ([facility]) ??? Arterial ischemic stroke, MCA (middle cerebral artery), left, acute ([facility]) ([facility]) ??? Aphasia ??? Dysarthria Past Medical History: No past medical history on file. Pre-Hospital Living Setting and Support System: Lives with in a single floor home with ramp access. He has a Trapeze in his bed room to help with bed mobility. He has grab rails throughout the home, a shower seat and a U Step walker. Services prior to admission: none Prior Level of Function: Ambulated: with supervision and with device Completed Self-care: with minimal assist Current Functional Status: Care Management: Bladder: incontinence, toileting schedule,, Bowel: constipation, would benefit from bowel regimen, LBM 02/09/2022 after suppository, Skin Care:, skin assessments and pressure injury prevention, q 2 repo,, Positioning: assist with repositioning for comfort and skin integrity q 2 h.,, Medication Management: Meds whole one at a time with water,, Nutritional deficits: monitor for adequatePO intake,, Safety: high fall risk, aspiration risk,, Functional mobility: Carryover recommendationsfrom therapies, and Mental Status: s/p stroke with baseline parkinsonism, monitor neuro status, Transfers: with assist of 2 helpers, with mechanical lift and with brace/prosthesis Locomotion: From: ambulatory level with total assist and with device Self-care: with moderate assist, with maximal assist and with total assist IADLs: Deficits below baseline with:, meal preparation, home management and community management Swallowing: Deficits below baseline with mild oral phase dysphagia Communication: Deficits below baseline with mild receptive, moderate expressive aphasia compounded by moderate motor speech deficits (apraxia and dysarthria). Cognition: Deficits below baseline with mild receptive aphasia , difficulty with complex communication and commands. Social/Emotional: Adjustment Issues Rehab Eligibility Assessment: Conditions that caused the need for rehabilitation: Patient has had a significant decline in function as the result of Parkinsonism and Stroke . Need for Close Medical Supervision: An acute inpatient rehab setting is medically necessary to monitor and manage the Ongoing Medical Concerns listed above and to develop and oversee the plan of care for Current Functional Deficits also listed above. Bowel regimen, parkinson's with deep brain stimulator, rigidity, aspiration risk, neurological status s/p stroke and thrombectomy, BP control, diabetic polyneuropathy, R foot drop Risk for Clinical Complications: Timbo is at Moderate risk for medical complications from these medical issues, impacting ability to participate in the rehabilitation program. Rehab Potential: Timbo has realistic goals and good rehab potential. Patient's condition is sufficiently stable at the time of admission to allow this patient to actively participate in and tolerate an acute intensive rehabilitation program. Appropriate Therapy Needs/Expected interventions required: Rehab Nursing , Occupational Therapy , Physical Therapy , Speech and Language Pathology , Medical Psychology and Social Work including patient/caregiver education and DME recommendations and training. Expected Frequency and Duration of Treatment: Anticipate patient will be able to tolerate an acute rehab level intensity of care and for a total of 3 hours per day, 5 days per week for the expected duration of 9-14 total therapy days during the IRF stay. Patient is expected to make measurable improvement that will be of practical value to improveTimbo Su's functional capacity or adaptation to impairments Expected level of improvement: Expect Timbo to complete functional mobility with minimal assist andwith device and complete self-care with minimal assist, with moderate assist and with device at discharge. Patient/Family Rehabilitation Goals: Patient/family education regarding Acute Rehab program provided. Patient/family report willingness and motivation to participate. Anticipated Discharge: Location: Home Support available at discharge: Lives with in a single floor home with ramp access. He has a Trapeze in his bed room to help with bed mobility. He has grab rails throughout the home, a shower seat and a U Step walker. works from home and is able to resume assisting patient with ADLs given patient is at prior level of function. Anticipated Post-Discharge Treatments: Home health with Nursing, OT, PT and RAG WILLOW OPERATOR Physician Agreement: Co-signature of this note indicates that I have reviewed this pre-admission screening document and concur with the findings. I believe Timbo Su meets criteria, is sufficiently medically stable to allow participation in the program and has the medical needs and functional reha bilitation goals that require the complexity and intensity of inpatient rehabilitation. This patientrequires an intensive level of therapy, close medical supervision and an interdisciplinary team approach provided through an individualized plan of care; therefore, an admission to the acute inpatient r ehab unit is medically necessary. I approve admitting this patient for an intensive, inpatient rehabilitation hospital program. Dee Zee RN - 02/09/2022 1423 EDT Acute Inpatient Rehabilitation Rehab Referral Review Patient Review: Referral received., EMR reviewed. and Spoke with Patient, patient's , and patient's nurse. Referral Status and Assessment: New Referral Comments: PT recommending MENA vs AR OT recommending MENA vs AR RAG WILLOW OPERATOR recommending acute interdisciplinary rehab program Follow-up Plan: Will continue to follow Comments: Patient will need to have BM prior to admission to acute rehab per rehab budget analyst, Dr Townsend. DEE TEJEDA RN 02/09/2022 14:23 Malathi Cueva SLP - 02/09/2022 1319 EDT Speech-Language Pathology Cognitive Communicative Consult RAG WILLOW OPERATOR Diagnosis: Aphasia: , Dysarthria: and Dysphagia, oral phase: Medical Diagnosis: Aphasia [R47.01] Stroke ([facility] (HCC) [I63.9] Dysarthria [R47.1] Arterial ischemic stroke, MCA (middle cerebral artery), left, acute ([facility] ([facility]) [I63.512] Acute CVA (cerebrovascular accident) ([facility] ([facility]) [I63.9] Date of Onset: 02/04/22 Date of Referral: 02/04/22 Start Time: 1200 Total Therapy minutes: 30 minute(s) SUBJECTIVE: Alert and cooperative. The speech therapist is trying to help me with my voice (on the phone with his ) OBJECTIVE: History: Per Neurology note 02/06: Timbo Da Silva Sharlene??is a 66 y.o.??male??with a PMHx of progressive parkinson disease s/p DBS, polyneuropathy c/b R foot drop, atrial fibrillation (not on AC), T2DM, HLD, who presented as a transfer from [facility] as a stroke code after being found to have a L MCA occlusion on CTA, outside therapeutic window for tPA and subsequent plan for thrombectomy upon transfer. LKW 02/04 at 0530. NIH on arrival was 11, MRS 3 (d/t PD). Now s/p mechanical thrombectomy which revealed occlusion of L anterior M2 branch. TICI 3 flow (complete perfusion) achieved after first pass w/ good BP control thereafter. Etiology of L MCA occlusion remains cryptogenic, though there is suspicion forcardioembolic source given A fib not on AC, however he carries several other vascular risk factors. He continues to clinically improve s/p EVT, transferred to step down 02/06 with advancement of diet, continuing to work with PT/OT/RAG WILLOW OPERATOR. Anticipate MENA versus AR will be indicated. Current Diet: DYS 3 with thin liquids Diet prior to admission: Obtained from pt's , Arlyn. Pt with softer food diet at baseline (hamburgers cut up without buns, cut up chicken, spaghetti, etc) r/t recent dental extractions. Pt now edentulous and in process of obtaining partials. Pt takes medications whole with thin liquids and has occa sional coughing while drinking (no recent pna). No history of choking or difficulty with solids. Current Status: Cognitive Status: Patient presented with aphasia and dysarthria during evaluation. Respiratory Status: Respiratory status was judged to be WFL to support oral feeding. Clinical Swallow Consult: RN/patient report pt tolerating recommended diet level with adequate intake. No overt s/sx aspiration. Able to self-feed with set up assistance. Meds whole one at a time with water without difficulty per RN. Following interview with pt's , pt is currently tolerating least restrictive diet at this time. No further intervention for dysphagia indicated. Communication-Cognitive Consult The Informal measures were utilized to evaluate current speech-language/cognitive-linguistic function. Behavior: During evaluation today, patient presented as awake, alert and engaged. Speech-Language Function: Per patient's , at baseline pt is [place] which occasionally impacts his communication (ie misunderstanding/mishearing speaker message) though cognitive communicative function grossly intact besides those minor occurrences. Auditory Comprehension: Yes/No: 100% reliable for complex yes/no Following Commands: Followed 2 step commands without context Sue-Motor Evaluation/Motor Speech: Articulation: Patient presents with articulation characterized by reduced precision, inconsistent articulatory errors and speech intelligibility is reduced. Increased intelligibility with spontaneous phrase level utterances. Whole word and initial sound repetition present. Articulation deficits incons istent. Voice: clear Verbal Expression: Fluent Stanford Naming Test Confrontation naming was assessed utilizing the Stanford Naming Test (Short Form) during today's session (Amaya & Goodclarence, 1983; Amaya, Khris, & Margaret, 1978). Total Score: 8 Summary of Score Score # of spontaneously given correct responses 8 # of stimulus cues given 7 # of correct responses following a stimulus cue 8 # of phonemic cues 7 # of correct responses following the phonemic cue 9 # of multiple choices given 6 # of correct choices 6 Total number correct 8 Total score 8 Convergent Naming: produced 3 items in a concrete independently given extended response time in first 2 trials, able to write and verbalize Reading Comprehension: Read aloud with phonemic errors with increased attempts at self-correction atsentence level Written Expression: improvements in writing noted this date, pt able to complete concrete naming activities with increased accuracy and improved penmanship Augmentative/Alternative Communication: Patient will be appropriate for diagnostic probes with light-tech augmentative/alternative communication strategies. Social-Pragmatic Skills: Eye contact: Patient with fair eye contact throughout session. Facial Expression/Affect: Patient demonstrates flat affect. Prosody/Inflection: Patient demonstrates good vocal inflection. Cognitive-Linguistic: Unable to formally evaluate secondary to presence of language impairment. Attention/Concentration: Adequate sustained attention for 30 minute session. Orientation: Oriented to self, place, year, situation given yes/no. Recall: Not formally evaluated. Categorization/Association: Not formally evaluated. Organization: Not formally evaluated. Problem Solving/Reasoning: Not formally evaluated. Insight/Judgment: Adequate insight, requesting information about ways to improve communication Patient/Family Education/Training: Topic: Patient/Family education and training was completed today including the role of Speech-Language Pathology, results of today's exam/recommendations, communication strategies, anatomy and physiology of the swallowing mechanism, discharge planning and questions were addressed. Learner: patient Method of Education: Verbal Barriers to Learning/Education: patient's inability to learn/carry over information at this time Patient: needs further instruction and education Assessment /Clinical Impressions: is a 66 y.o. male with PD admitted with LMCA occlusion now s/p thrombectomy. currently presents with a mild oral phase dysphagia characterized by mildly prolonged mastication of soft solids with mild lingual stasis cleared with liquids wash. Following discussion with pt's spouse, suspect pt is at baseline swallow function given recent teeth extractions and mechanically altered diet at baseline. does remain at an increased risk of aspiration at this time given new onset cognitive-communicative deficits. Compensatory strategies of providing set up assistance and intermittent support as needed appear effective in decreasing risk of aspiration. Anticipate patient will continue to tolerate a modified diet during hospitalization, which is consistent with his baseline. Anticipate no further RAG WILLOW OPERATOR services for dysphagia at this time. A cognitive communicative re-assessment was also completed this date. Pt continues to demonstrate improvements in speech and language function. Pt now presents with a mild receptive, moderate expressive aphasia further compounded by at least moderate motor speech deficits (apraxia and dysarthria). Pt's verbal output marked by appropriate prosody with spontaneous appropriate and intelligible phrase level responses in conversation. Today, was was reliable for complex yes/no questions and followed multi-step commands given extended time and intermittent repetitions when requested. Writing and reading remain relative strengths for pt. Patient currently able to communicate basic wants and needs and direct his medical care with caregiver support. Given patient's age, independence prior to admission, and social/occupational demands, hewould benefit from intensive RAG WILLOW OPERATOR intervention. Based on the patient's premorbid level of functioning, medical diagnosis, comorbidities and patient/family support, the patient's prognosis is considered:Good. Functional Communication Measures ([place] [employer], 2002). The Functional Communication Measures (FCM???s) are a series of 7 point rating scales, ranging from least functional (Level 1) to most functional (Level 7). They have been developed by SUZANNA to describedifferent aspects of patient???s functional communication and swallowing abilities over the course of RAG WILLOW OPERATOR intervention. Swallowing Level 5: Swallowing is safe with minimal diet restriction and/or occasionally requires minimal cueing to use compensatory strategies. The individual may occasionally self-cue. All nutrition and hydration needs are met by mouth at mealtime. Spoken Language Expression Level 4: The individual is successfully able to initiate communication using spoken language in simple, structured conversations in routine daily activities with familiar communication partners. The individual usually requires moderate cueing, but is able to demonstrate use of simple sentences (i.e., semantics, syntax, and morphology) and rarely uses complex sentences/messages. Spoken Language Comprehension Level 5: Individual is able to understand communication in structured conversations with both familiar and unfamiliar communication partners. The individual occasionally requires minimal cueing to understand more complex sentences/messages. The individual occasionally init iates the use of compensatory strategies when encountering difficulty. GOALS: Pt will improve cognitive-linguistic functioning in order to increase participation and independencewith ADLs and communicate wants/needs with reduced caregiver support in current living environment. Pt will tolerate highest level safe/adequate PO intake without overt s/sx aspiration and min-no oralresidue. Plan /Recommendations: Patient will continue to benefit for further RAG WILLOW OPERATOR intervention in this setting to address communication intervention needs. Pt presents with a mild receptive and moderate expressive aphasia further compounded by at least moderate motor speech deficits. Though pt continues to demonstrate improvements in speech and language function, pt remains very far below baseline communication function as described by patient's spouse. Recommendations 1. Continue DYS 3 diet with thin liquids and 1:1 assistance/supervision 2. Aspiration precautions (HOB elevated, slow rate, small/single bites/sips, alternate liquids/solids) RAG WILLOW OPERATOR to continue to follow pt during acute hospitalization under consultative model. Please contact primary treating RAG WILLOW OPERATOR for change in status requiring priority re-assessment. Discharge Plan: Pt would greatly benefit from continued RAG WILLOW OPERATOR services in an acute interdisciplinary rehab program to target aphasia, apraxia, and dysarthria and improve pt's ability to make wants/needs known. Malathi Simmons MS CCC-RAG WILLOW OPERATOR [employer] preferred; #[phone] (Saturday-Saturday, [phone]) RAG WILLOW OPERATOR Float Pager #[phone] (Saturday-Saturday-1630) Gilbert Grady MD - 02/09/2022 0853 EDT Neurology Progress Note Admit Date: 02/04/2022 Hospital day: LOS: 5 days Date of Service: 02/09/2022 Procedure/Diagnosis: L MCA infarct PCP: Griselda Stanley Code Status: Full Code Chief Complaint: Stroke code 24 hour events: - NAEO Subjective: Marcell is doing okay today, asking about his glasses. He still feels as if his speech hasn't improved.No bowel movement yet but has passed gas. Review of Systems: Review of systems not obtained due to patient factors: significant dysarthria Objective/Physical Exam: VS current: Temp: 36 ??C (96.8 ??F) Pulse: 70 Resp: 15 BP: (!) 123/92 SpO2: 94 % O2 Flow Rate (L/min): 0 l/min VS range for last 24 hours: Temp: [35.6 ??C (96.1 ??F)-36.4 ??C (97.5 ??F)] Pulse: [70] Resp: [13-23] BP: (115-146)/(68-107) SpO2: [94 %-99 %] Respiratory Status for last 24 hours: SpO2: 94 % (02/09/22 0628) ICP range for last 24 hours: ICP: -- Pain: Patient Vitals for the past 8 hrs: Numeric Pain Level (Scale 1-10) 02/09/22 0212 0 I&O: Intake/Output Summary (Last 24 hours) at 02/09/2022 0853 Last data filed at 02/09/2022 0823 Gross per 24 hour Intake 480 ml Output 740 ml Net -260 ml Neurological Exam: HEENT: Masked facies, decreased blinking. Mental status: Awake/alert. Aphasia improved, mild dysarthria. Follows simple commands. Intermittently conversant. Able to name some high and low frequency items, including glasses, elbow. Calls thumb numb. Able to read short phrases. Difficulty repeating 5-word sentences. Cranial nerves: CN I: Deferred CN II: Visual ward full to confrontation. CN III-IV & : EOMI CN V: Normal masseter bulk, tone. V1-V3 intact to light touch. CN VII: face symmetric CN VIII: Hearing is intact to voice. CN IX-X: Palate elevates symmetrically on activation. No hoarseness or dysarthria CN XI: Symmetric shoulder shrug. SCM/traps are full strength CN XII: Tongue protrusion midline, without deviation, atrophy, or fasciculations Motor: Increased tone of the bilateral UEs w/ L rigidity > R and resting tremor R > L. Strength: Right Left Elbow flexion 5/5 5/5 Elbow extension 5/5 5/5 Wrist extension 4+/5 5/5 Grasp 5/5 5/5 Hip flexion 4+/5 5/5 Knee extension 5/5 5/5 Knee flexion 5/5 5/5 Ankle dorsiflexion 5/5 5/5 Ankle plantar flexion 5/5 5/5 Sensory: Sensation is intact to light touch and temperature in all four extremities. Double simultaneous sensation intact. Labs: CBC: Recent Labs 02/07/22 0642 02/08/22 0547 02/09/22 0547 WBC 7.07 8.69 7.13 RBC 4.37 4.34* 4.27* HGB 12.6* 12.7* 12.6* HCT 36.9* 37.3* 36.1* MCV 84 86 85 MCH 28.8 29.3 29.5 MCHC 34.1 34.0 34.9 PLT 141 151 156 BMP: Recent Labs 02/07/22 0642 02/08/22 0547 02/09/22 0547 NA 141 140 140 K 3.9 3.9 3.9 CL 103 103 108 CO2 29 29 24 CREATININE 0.83 0.94 0.75 Coags: No results for input(s): PROTIME, INR, PTT in the last 72 hours. LFT: No results for input(s): TBIL, ALKPHOS, AST, ALT, LIPASE, AMYLASE in the last 72 hours. Cardiac Markers: No results for input(s): CK, MB, CKMBINDEX, TROPONINI in the last 72 hours. Hemoglobin A1c: No results for input(s): HGBA1C in the last 72 hours. Thyroid Function: No results for input(s): TSH, FREET4 in the last 72 hours. Other studies: CT Head wo Contrast 02/04/22 IMPRESSION 1. Acute infarction of the posterior left parietal and temporal lobes. 2. Bithalamic frontal approach electrodes. CT Head wo Contrast 02/05/22 IMPRESSION Redemonstrated evolving left MCA territory infarcts without associated hemorrhage. TTE: ??? Left??Ventricle: Left ventricular systolic function was normal with an ejection fraction of 55-60%. Possible hypokinesis of the mid-apical inferoseptal wall. ??? Right??Ventricle: Right ventricular systolic function was normal. ??? IVC/SVC: The inferior vena cava was moderately dilated. ??? Left??Atrium: No right to left shunting observed with agitated saline contrast injection. Assessment: Timbo Su is a 66 y.o. male with a PMHx of progressive parkinson disease s/p DBS, polyneuropathy c/b R foot drop, atrial fibrillation (not on AC), T2DM, HLD, who presented as a transfer from [facility] as a stroke code after being found to have a L MCA occlusion on CTA, outside therapeutic window for tPA and subsequent plan for thrombectomy upon transfer. W 02/04 at 0530. NIH on arrival was 11, MRS 3 (d/t PD). Now s/p mechanical thrombectomy which revealed occlusion of L anterior M2 branch. TICI 3 flow (complete perfusion) achieved after first pass w/ good BP control thereafter. Etiology of L MCA occlusion remains cryptogenic, though there is suspicion for cardioembolic source given A fib not on AC, however he carries several other vascular risk factors. He continues to clinically improve s/p EVT, currently stable on the floor. Diet was advanced to dysphagia 3, tolerating well. Continues towork with PT/OT/RAG WILLOW OPERATOR, [facility] vs [facility]. Plan: Acute infarct secondary to L-M1 occlusion s/p mechanical thrombectomy -Q4 stroke checks and vital signs -[address] stable -Hyperglycemia management: SSI with aspart prn - goal BG <180 (A1c 6.8%) -PT/OT/RAG WILLOW OPERATOR evaluation -Dysphagia 3 diet w/ thin liquids and 1:1 assistance/supervision -Stroke prevention: - Cont aspirin 81 mg PO daily - Cont atorvastatin 40 mg PO daily - Cont Labetalol prn (has not required since 00302/05 AM) for goal SBP <150. No antihypertensives listed in chart other than metoprolol which he takes for A fib Chronic atrial fibrillation Possible provoking factor for stroke given chronicity and lack of treatment with AC over the long-term. Reportedly, this was discussed in the past and he was deemed too high risk due to frequent falls w/ his progressive PD. - Continue on telemetry - TTE w/ preserved EF (55-60%) and possible hypokinesis of mid-apical inferoseptal wall, but no notable thrombus or valvular vegetations. Severely dilated LA. - Cont DOOR CUTTER metoprolol tartrate 50 mg BID; goal HR <110 - can tx w/ additional PO metop if sustaining in >120s-130s - No therapeutic AC at this time but will cont w/ DVT prophylaxis Parkinson's Disease s/p DBS Sees Dr. Hooper from [facility] and also [facility] Winnie Stevenson of their neuro dept. Recently had DBS interrogated. - Cont DOOR CUTTER regimen of carbidopa-levodopa 25-250 mg 1 tab QID + entacapone 200 mg TID Suspected diabetic polyneuropathy c/b R foot drop - Cont DOOR CUTTER gabapentin 100 mg BID and duloxetine 60 mg daily Constipation - Increase senna 2 tab at bedtime - Miralax to BID - Dulcolax suppository PRN - Dulcolax suppository today x1 Day 4. Did patient receive t-PA or endovascular treatment? Yes - mechanical thrombectomy. NIHSS13 2 hrs post-thrombectomy. Recent NIHSS Values 02/04/2022 1400 02/04/2022 1800 02/05/2022 1649 NIHSS Testing Interval: Baseline 2 hr post treatment Other (Comment) Interval Exam Date: 02/04/22 02/04/22 02/05/22 Interval Exam Time: 1448 [id number] 1130 1A. Level of Consciousness: 0 0 1 1B. Ask Month and Age: 2 2 2 1C. Blink Eyes & Squeeze Hands: 2 2 0 2. Best Gaze: 1 1 0 3. Visual: 1 2 1 4. Facial Palsy: 0 0 0 5A. Motor - Left Arm: 0 0 0 5B. Motor - Right Arm: 0 0 0 6A. Motor - Left Le 0 0 6B. Motor - Right Le 0 ??? 7. Limb Ataxia: 0 0 Untestable 8. Sensory Loss: 0 0 0 9. Best Language: 3 3 2 10. Dysarthria: 2 2 2 11. Extinction And Inattention: 0 1 0 NIH Stroke Scale: [address] ordered: Yes Hemorrhagic conversion within the first 36 hours: No Is patient on telemetry? Yes Rhythms noted: Atrial fibrillation Discharge Plan: Uncertain at this time - [facility] vs. [facility] given baseline functional status due to PD now further hindered by stroke. Eda Machado MD Neurology, PGY-3 PGR [id number] 02/09/22 8:53 Attestation statement: I saw and examined the patient with the resident on 02/09/2022. I agree with the findings and plan of care documented in the resident's note. Gilbert Barksdale MD MSc Fiorella Vogt - 02/08/2022 1346 EDT Lengthy telephone discussion with of pt, Arlyn She is understanding of plan for rehab, but states a large preference for [facility] as she feels he has notreceived what he needs to bounce back from [facility]. Late Fall 2020 he was at [facility] rehab. She also asked that her feelings be shared with staff that he is receiving some of the best care he has ever received, and the kindness, as well as patience, of everyone here She is also asking about condom catheters for night time usage at home. Conversation to continue following OT assessment. Elayne Carmihcael OTR-L - 02/08/2022 1042 EDT [facility] Rehabilitation Therapy Acute Therapies [facility] Occupational Therapy Initial Evaluation Note Date of Service: 02/08/2022 Reason for Referral: Evaluate and Treat Precautions: Activity as tolerated SUBJECTIVE: I am Ok Pain: No pain reported during the interview. OBJECTIVE: Patient Profile: Timbo Su is a NE hand dominant 66 y.o. male admitted on 02/04/2022 secondary to Aphasia [R47.01] Stroke ([facility]) ([facility]) [I63.9] Dysarthria [R47.1] Arterial ischemic stroke, MCA (middle cerebral artery), left, acute (HCC-CMS) ([facility]) [I63.512] Acute CVA (cerebrovascular accident) (HCC-CMS) ([facility]) [I63.9] The patient lives at [address] [place] [address] [place] [address] History of Present Illness/Injury: Per MD's H&P, Timbo Su is a 66 y.o. male with a PMHx of progressive parkinson disease s/p DBS, polyneuropathy c/b R foot drop, atrial fibrillation, DM, HLD, presenting as a transfer from [facility] as a stroke code after found to have a L MCA occlusion withplan for thrombectomy. ?? LKW 0530 this morning after waking. His found him at approximately 0830 with unintelligible speech and inability to follow commands. EMS was called and he was initially evaluated at [facility], found tohave a LMCA on CTA imaging. Primary NIH of 6. He received 300 mg of ASA and IVF ?? His provided verbal consent for thrombectomy with Dr. Ramirez at 1330 via telephone and he was transported by life flight. En route he was hypertensive up to 190 systolic and given 20 mg IV labetalol with improvement. ?? On arrival to [facility], NIH 11. MRS 3 due to progressive PD, neuropathy. Uses a walker at baseline with decline over the past few years Living Environment/Home Set-up: Patient lives with spouse in a single level House. Bathroom is downstairs with a Walk in shower. Caregiver Support: Per CM notes, pt's spouse is a portable track crew chief caregiver Equipment Available: Rolling walker and Need further clarification Prior Level of Function: Activities of daily living: Pt has h/o progressive parkinson's disease. He needed assist needed withdressing, toileting and showers DOOR CUTTER. Instrumental activities of daily living: Assist needed with all Work/Leisure: Retired Medical/Surgical History: CURRENT: The patient has Acute CVA (cerebrovascular accident) (HCC-CMS) ([facility]); Stroke (HCC-CMS) ([facility]); Arterial ischemic stroke, MCA (middle cerebral artery), left, acute (HCC-CMS) (HCC); Aphasia; and Dysarthria on their problem list. PAST: The patient has no past medical history on file. SURGICAL: The patient has no past surgical history on file. Medical history reviewed. Medications: Medications reviewed. Body Functions and Performance Skills: Cardiovascular/Respiratory Systems Function: Vital Signs: Patient vital signs stable and not symptomatic during assessment/treatment Mental Functions: Arousal:Alert Orientation:Oriented to place Oriented to person Not orienred to situation and time this date Processing Speed:Pt demonstrates delayed processing speed Following instructions: Able to follow 1 step instructions with repetitions Behavioral characteristics: Pleasant and cooperative Communication: Pt has expressive aphasia and demonstrates intermittent unintelligible speech Sensory Functions: Hearing:Intact to conversational tones Touch:Pt reports tingling in all 4 limbs as a result of neuropathy Vision:Current complaints:No problems reported Neuro musculoskeletal and Movement Related Functions: Range of Motion: No problems noted Strength WNL. However, noted to have significant rigidity in all agonist and antagonist muscle groups. Session wasconducted prior to his PD medications were administered. Skin and Related Structure Functions: NE Areas of Occupation and Performance Skills: Basic Activities of Daily Living: Feeding: Modified [place] Grooming: Anticipate can complete oral hygiene with set up assist while in seated position UE dressing: Min contact assist LE dressing: Max assist, Same as PLOF Toileting: Pt is incontinent for urine and needs max A for all toileting tasks Toilet transfer: Max assist Mobility: Rolling: moderate assistance and with max one step VC for sequencing Supine to Sit: moderate assistance and max VC on appropriate hand placement and sequencing Sit to Stand: Min contact assist with Robin Steady, and max VC on appropriate hand placement and sequencing Stand to Sit: Min contact assist with Robin Steady, and max VC on appropriate hand placement and sequencing Transfers bed>recliner: Min contact assist with Robin Steady, and max VC on appropriate hand placement and sequencing Instrumental Activities of Daily Living: Not evaluated Informed Consent: The patient consented to occupational therapy evaluation. The patient agrees to and understands the occupational therapy treatment plan and goals Interventions completed today: Occupational therapy today at 0950. Total treatment time: 30 minutes. Timed code treatment minutes: 8 Intervention included: Therapeutic activity Therapist provided skilled VC on appropriate hand placement and sequencing throughout the functionalmobility and transfers. Pt performs sit<>stand transfer practice x3 attempts Patient/Family Education: See above Team Communication: Notified:Nurse By:Face to face communication When:Prior to therapy During therapy After therapy About:Readiness for therapy, Response to therapy and assistance with mobility Patient status at end of therapy session: The patient was left in:Recliner chair With the: Call white in reach and Chair alarm on ASSESSMENT: Patient was appropriate for skilled Occupational Therapy evaluation due to Arterial ischemic stroke. Occupational Therapy impairments: Cognition, Strength, Activity tolerance, Balance, Motor control and Communication These impairments impact the following areas of occupation: Self care and Functional mobility. Occupational Therapy is medically necessary to: establish and progress ADL's and provide recommendations for safe discharge planning. Current status compared to baseline level of function: Below prior level of function. Discharge recommendations: Since pt is currently presenting below his baseline, and is needing heavy 1 person assistance for all self care and functional mobility. Anticipate he would require skilled inpatient rehab. Recommending [facility] if pt's spouse is agreeable to continue providing the level of assist as his baseline post AR stay. If the level of assist is not feasible anticipate would have to consider [facility] for a longer inpatient rehab services. See plan below for applicable equipment and follow up service recommendations. GOALS: Short Term Goals: ?? N/A Penitentiary Goals: 1-3 weeks ?? Patient will be: Modified [place] with UE dressing ?? Patient will be: Modified [place] with Toileting. ?? Patient will be: Supervision with Toilet transfer. ?? Patient will be: Supervision with Functional mobility. PLAN: Intervention: Occupational therapy will be provided by occupational therapist when medically appropriate. Frequency: daily for 1-2 times per week as determined by patient's medical stability, tolerance to activity and progression of functional activities. Intensity: 15-60 minutes per session, Duration: During hospit alization, Interventions may include:Self care/home management, Therapeutic exercises, Therapeutic activities , Cognitive function intervention and Neuromuscular re-education Further Data: Continued evaluation Patient/Family Education: Adaptive ADL's, Adaptive equipment, Discharge planning, Precautions, Role of OT and Safety Recommended Discharge Destination: Acute vs. sub-acute rehabilitation (see assessment above) Recommended Discharge Services: Occupational therapy at rehabilitation facility Recommended Discharge Equipment: To be determined by next care provider Pager: [phone] LARON Mak, 02/08/2022, 10:42 Gilbert Barksdale MD - 02/08/2022 0848 EDT Neurology Progress Note Admit Date: 02/04/2022 Hospital day: LOS: 4 days Date of Service: 02/08/2022 Procedure/Diagnosis: L MCA infarct PCP: Griselda Stanley Code Status: Full Code Chief Complaint: Stroke code 24 hour events: - NAEO Subjective: Marcell is doing okay, though reports he has been having difficulty having a bowel movement in several days. Reports he slept well, denies any pain. Has been eating and drinking okay. Discussed that physical therapy suggesting stay at rehab and that we will also see what occupational therapy suggests. Review of Systems: Review of systems not obtained due to patient factors: significant dysarthria Objective/Physical Exam: VS current: Temp: 35.8 ??C (96.4 ??F) Pulse: 74 Resp: 13 BP: 121/81 SpO2: 95 % O2 Flow Rate (L/min): 0 l/min VS range for last 24 hours: Temp: [35.6 ??C (96.1 ??F)-36.2 ??C (97.2 ??F)] Pulse: -- Resp: [13-19] BP: (121-140)/(80-94) SpO2: [95 %-99 %] Respiratory Status for last 24 hours: SpO2: 95 % (02/08/22 0353) ICP range for last 24 hours: ICP: -- Pain: No data found. I&O: Intake/Output Summary (Last 24 hours) at 02/08/2022 0849 Last data filed at 02/08/2022 0603 Gross per 24 hour Intake 360 ml Output 650 ml Net -290 ml Neurological Exam: HEENT: Masked facies. Mental status: Awake/alert. Aphasia improved, mild dysarthria. Follows simple commands. Intermittently conversant. Able to name high and low frequency items, including straw, pen, elbow, glasses. Difficulty repeating 5-word sentences. Cranial nerves: CN I: Deferred CN II: Visual ward full to confrontation. CN III-IV & : EOMI CN V: Normal masseter bulk, tone. V1-V3 intact to light touch. CN VII: face symmetric CN VIII: Hearing is intact to voice. CN IX-X: Palate elevates symmetrically on activation. No hoarseness or dysarthria CN XI: Symmetric shoulder shrug. SCM/traps are full strength CN XII: Tongue protrusion midline, without deviation, atrophy, or fasciculations Motor: Increased tone of the bilateral UEs w/ L rigidity > R and resting tremor R > L. Strength: Right Left Elbow flexion 5/5 5/5 Elbow extension 5/5 5/5 Wrist extension 4+/5 5/5 Grasp 4+/5* 5/5 Hip flexion 4+/5 5/5 Knee extension 5/5 5/5 Knee flexion 5/5 5/5 Ankle dorsiflexion 5/5 5/5 Ankle plantar flexion 5/5 5/5 Sensory: Sensation is intact to light touch and temperature in all four extremities. Double simultaneous sensation intact. Labs: CBC: Recent Labs 02/06/22 0742 02/07/22 0642 02/08/22 0547 WBC 6.58 7.07 8.69 RBC 4.13* 4.37 4.34* HGB 11.9* 12.6* 12.7* HCT 35.0* 36.9* 37.3* MCV 85 84 86 MCH 28.8 28.8 29.3 MCHC 34.0 34.1 34.0 PLT 133* 141 151 BMP: Recent Labs 02/06/22 0742 02/07/22 0642 02/08/22 0547 NA 140 141 140 K 3.7 3.9 3.9 CL 106 103 103 CO2 28 29 29 CREATININE 0.78 0.83 0.94 Coags: No results for input(s): PROTIME, INR, PTT in the last 72 hours. LFT: No results for input(s): TBIL, ALKPHOS, AST, ALT, LIPASE, AMYLASE in the last 72 hours. Cardiac Markers: No results for input(s): CK, MB, CKMBINDEX, TROPONINI in the last 72 hours. Hemoglobin A1c: No results for input(s): HGBA1C in the last 72 hours. Thyroid Function: No results for input(s): TSH, FREET4 in the last 72 hours. Other studies: CT Head wo Contrast 02/04/22 IMPRESSION 1. Acute infarction of the posterior left parietal and temporal lobes. 2. Bithalamic frontal approach electrodes. CT Head wo Contrast 02/05/22 IMPRESSION Redemonstrated evolving left MCA territory infarcts without associated hemorrhage. TTE: ??? Left??Ventricle: Left ventricular systolic function was normal with an ejection fraction of 55-60%. Possible hypokinesis of the mid-apical inferoseptal wall. ??? Right??Ventricle: Right ventricular systolic function was normal. ??? IVC/SVC: The inferior vena cava was moderately dilated. ??? Left??Atrium: No right to left shunting observed with agitated saline contrast injection. Assessment: Timbo Su is a 66 y.o. male with a PMHx of progressive parkinson disease s/p DBS, polyneuropathy c/b R foot drop, atrial fibrillation (not on AC), T2DM, HLD, who presented as a transfer from [facility] as a stroke code after being found to have a L MCA occlusion on CTA, outside therapeutic window for tPA and subsequent plan for thrombectomy upon transfer. W 02/04 at 0530. NIH on arrival was 11, MRS 3 (d/t PD). Now s/p mechanical thrombectomy which revealed occlusion of L anterior M2 branch. TICI 3 flow (complete perfusion) achieved after first pass w/ good BP control thereafter. Etiology of L MCA occlusion remains cryptogenic, though there is suspicion for cardioembolic source given A fib not on AC, however he carries several other vascular risk factors. He continues to clinically improve s/p EVT, currently stable on the floor. Diet was advanced to dysphagia 3, tolerating well. Continues towork with PT/OT/RAG WILLOW OPERATOR, likely AR versus [facility] will be indicated. Plan: Acute infarct secondary to L-M1 occlusion s/p mechanical thrombectomy -Q4 stroke checks and vital signs -[address] stable -Hyperglycemia management: SSI with aspart prn - goal BG <180 (A1c 6.8%) -PT/OT/RAG WILLOW OPERATOR evaluation -Dysphagia 3 diet w/ thin liquids and 1:1 assistance/supervision -D/c NG tube -Stroke prevention: - Cont aspirin 81 mg PO daily - Cont atorvastatin 40 mg PO daily - Cont Labetalol prn (has not required since 0034 02/05 AM) for goal SBP <150. No antihypertensives listed in chart other than metoprolol which he takes for A fib Chronic atrial fibrillation Possible provoking factor for stroke given chronicity and lack of treatment with AC over the long-term. Reportedly, this was discussed in the past and he was deemed too high risk due to frequent falls w/ his progressive PD. - Continue on telemetry - TTE w/ preserved EF (55-60%) and possible hypokinesis of mid-apical inferoseptal wall, but no notable thrombus or valvular vegetations. Severely dilated LA. - Cont DOOR CUTTER metoprolol tartrate 50 mg BID; goal HR <110 - can tx w/ additional PO metop if sustaining in >120s-130s - No therapeutic AC at this time but will cont w/ DVT proph Parkinson's Disease s/p DBS Sees Dr. Hooper from [facility] and also [facility] Winnie Stevenson of their neuro dept. Recently had DBS interrogated. - Cont DOOR CUTTER regimen of carbidopa-levodopa 25-250 mg 1 tab QID + entacapone 200 mg TID Suspected diabetic polyneuropathy c/b R foot drop - Cont DOOR CUTTER gabapentin 100 mg BID and duloxetine 60 mg daily Constipation - Increase senna 2 tab at bedtime - Miralax daily - dulcolax suppository PRN Day 4. Did patient receive t-PA or endovascular treatment? Yes - mechanical thrombectomy. NIHSS13 2 hrs post-thrombectomy. Recent NIHSS Values 02/04/2022 1400 02/04/2022 1800 02/05/2022 1649 NIHSS Testing Interval: Baseline 2 hr post treatment Other (Comment) Interval Exam Date: 02/04/22 02/04/22 02/05/22 Interval Exam Time: 4269 8934 1130 1A. Level of Consciousness: 0 0 1 1B. Ask Month and Age: 2 2 2 1C. Blink Eyes & Squeeze Hands: 2 2 0 2. Best Gaze: 1 1 0 3. Visual: 1 2 1 4. Facial Palsy: 0 0 0 5A. Motor - Left Arm: 0 0 0 5B. Motor - Right Arm: 0 0 0 6A. Motor - Left Le 0 0 6B. Motor - Right Le 0 ??? 7. Limb Ataxia: 0 0 Untestable 8. Sensory Loss: 0 0 0 9. Best Language: 3 3 2 10. Dysarthria: 2 2 2 11. Extinction And Inattention: 0 1 0 NIH Stroke Scale: [address] ordered: Yes Hemorrhagic conversion within the first 36 hours: No Is patient on telemetry? Yes Rhythms noted: Atrial fibrillation Discharge Plan: Uncertain at this time, but anticipate subacute rehab given baseline functional status due to PD now further hindered by stroke. Eda Machado MD Neurology, PGY-3 PGR [id number] 02/08/22 / 8:49 Attestation statement: I saw and examined the patient with the resident on 02/08/2022. I agree with the findings and plan of care documented in the resident's note. Gilbert Barksdale MD MSc Zahida Leonard, PT - 02/07/2022 1711 EDT [facility] Rehabilitation Therapy Acute Therapies [facility] Physical Therapy Initial Evaluation Note Date of Service: 02/07/2022 Reason for Referral: Evaluate and treat Precautions: Activity as tolerated SUBJECTIVE: Ok. Pain: No pain reported during the interview. OBJECTIVE: Reason for hospitalization: From [facility] by Dr. Cruz, 02/04/2022: Timbo Su is a 66 y.o. male with a PMHx of progressive parkinson disease s/p DBS, polyneuropathy c/b R foot drop, atrial fibrillation, DM, HLD, presenting as a transfer from [facility] as a stroke code after found to have a L MCA occlusion with plan for thrombectomy. ?? LKW 0530 this morning after waking. His found him at approximately 0830 with unintelligible speech and inability to follow commands. EMS was called and he was initially evaluated at [facility], found tohave a LMCA on CTA imaging. Primary NIH of 6. He received 300 mg of ASA and IVF ?? His provided verbal consent for thrombectomy with Dr. Ramirez at 1330 via telephone and he was transported by life flight. En route he was hypertensive up to 190 systolic and given 20 mg IV labetalol with improvement. ?? On arrival to [facility], NIH 11. MRS 3 due to progressive PD, neuropathy. Uses a walker at baseline with decline over the past few years. ?? PatientProfile: Patient is a 66 y.o. male admitted on 02/04/2022 secondary to Aphasia [R47.01] Stroke (HCC-CMS) (FORM[facility]) [I63.9] Dysarthria [R47.1] Arterial ischemic stroke, MCA (middle cerebral artery), left, acute (HCC-CMS) ([facility]) [I63.512] Acute CVA (cerebrovascular accident) ([facility]) ([facility]) [I63.9] The patient lives at [address] [place] [address] [place] [address] Home environment Lives: with Caregiver Support: 24-hour assist Equipment Available: Upright walker, right AFO Home Environment: house Home Layout: One story. Prior Level of Function: Pt reports ambulating outside with walker at baseline. Services prior to admission: None Work/Leisure: Retired Medical/Surgical History: CURRENT: The patient has Acute CVA (cerebrovascular accident) ([facility]) ([facility]); Stroke ([facility]) ([facility]); Arterial ischemic stroke, MCA (middle cerebral artery), left, acute ([facility]) ([facility]); Aphasia; and Dysarthria on their problem list. PAST: The patient has no past medical history on file. SURGICAL: The patient has no past surgical history on file. Medications: Medications reviewed. Pt seen after AM dose of Sinemet. Arousal, Attention, and Cognition: Orientation: Alert Oriented to person, place and grossly to time. Full assessment limited by aphasia and limited intelligibility. Cardiopulmonary: Vital Signs: Activity Heart rate (bpm) Blood Pressure (mmHg) Respiratory rate (breaths/min) Oxygen Sat/ Fractions of inspired Oxygen SPO2/FIO2 % sitting 67 127/94 16 96% on RA post-activity 73 156/97 15 97% on RA Integumentary/Anthropometric Characteristics: Palpation/Observation: gross skin assessment with no significant findings to areas without clothing/without dressings Posture: Rigidity noted Range of Motion and Joint Integrity: Within normal limits as demonstrated functionally for BUE and BLE except: Right lower extremity: PROM to neutral ankle dorsiflexion with effort due to resistance to passisve movement Muscle Performance: Manual muscle testing not formally performed in order to prioritize functional mobility. Strength observed to be at least 3/5 with gross movement. Sensation, Reflexes, and Nerve Integrity: Tingling at baseline BUE and BLE due to neuropathy. Neuromotor Function/Development: History of PD. Flat affect. BUE tremor (right > left). Postural rigidity. Delayed responses. Balance, Mobility, and Gait: Balance: Balance deficits observed: static sitting: requires supervision to maintain balance static standing: requires moderate assist of 2 and UE support to maintain balance dynamic standing: requires moderate assist of 2 and UE support to maintain balance Mobility: During all activities performed this patient was provided cues and education. These were provided togive movement techniques to: optimize ability for patient to participate in and perform task and optimize patient safety Rolling: N/E, pt received in recliner and returned to recliner Supine to Sit: N/E, pt received in recliner and returned to recliner Sit to Supine: N/E, pt received in recliner and returned to recliner Sit to Stand: moderate assist <> maximal assist of 2 with to rolling walker with cues for handplacement, use of momentum and forward flexion of trunk Stand to Sit: moderate assist of 2 with rolling walker Gait: Gait: Marching in place with mod assist of 2 and BUE support on rolling walker with assist to stabilize walker, as pt was sometimes pulling up on walker instead of pushing down through walker. Minimal foot clearance noted with narrow CAROLINE. See also under interventions. Self-Care, Home Management, Work, and Leisure: N/E at this time Outcomes: Please refer to individual sections for any outcome measures that were performed Informed Consent: The patient consented to the physical therapy evaluation. The patient agrees to and understands the physical therapy treatment plan and goals. Interventions Completed Today: Physical Therapy today at: 11:35 Total treatment time: 30 minutes. Timed code treatment minutes: 10 Intervention included: Therapeutic activities: Loaner rolling walker provided and fit to pt. Pt ambulated 1 x 5 feet with rolling walker, right AFOand mod to max assist of 2 with very close chair follow. Very slow speed with narrow CAROLINE, shuffling steps and need for assist to manage the rolling walker. Patient/Family Education: Topic: Discharge planning Gait Role of therapy Safety Transfers Learner: patient Method: verbal and tactile Barriers to Learning: communication Outcome: requires assist, needs practice, verbalized understanding and returned demonstration Team Communication: Nurse Face to face communication During therapy session and After therapy session Patient status and use of right AFO (would not leave on for more than 2 hours at a time). ASSESSMENT: Physical Therapy Diagnosis: This patient presents with a Physical Therapy diagnosis of :Impaired gait, Impaired mobility and Impaired movement system impacted by impairments of: activity tolerance, balance, communication, coordination, motor control, motor planning, muscle strength and range of motion Physical Therapy Prognosis: Physical therapy is medically necessary to: address these body structure/function impairments, activity limitations, and participation restrictions, establish and progress mobility/exercise and provide recommendations for staff and safe discharge planning, facilitate return to prior level of function,improve safety and independence and provide education in a home exercise program to address impairments in body function and structures and promote increased activity and participation Current status compared to baseline level of function: below prior level of function Anticipated rate of progress: steady Progress may be affected by the following: strengths: family/social support, home environment and motivation barriers: fall risk and severity of condition/impairments Discharge recommendations: acute rehab- based on performance with therapy today, this patient is expected to be able to tolerate 3 hours of multi-disciplinary acute rehab therapy 5 days a week. He is not demonstrating adequate functional mobility to discharge home with his as of today. ?? Short-Term Goals: N/A ?? Long-Term Goals: 2-4 weeks ??? The patient will be able to perform bed mobility with supervision demonstrating appropriate sequencing/motor planning. ??? The patient will be able to perform transfers with supervision while demonstrating an effective strategy for recovery of loss of balance. ??? The patient will be able to ambulate with supervision with no loss of balance on level surfaces 100 feet with/without assistive device as needed. ??? The patient and/or caregiver will be aware of the PT recommendations provided and verbalize and/or demonstrate understanding of the recommendations. PLAN: Physical therapy will be provided by physical therapist when medically appropriate. Frequency: dailyfor 1-2 times per week as determined by patient's medical stability, tolerance to activity and progression of functional activities. Intensity: 15-60 minutes per session, Duration: During hospitalization, Interventions may include:Therapeutic exercises, Therapeutic activities, Neuromuscular ReEducation and Gait training, Patient/family education: Discharge planning, Equipment, Family training as appropriate, Precautions, Recommendations, Role of physical therapy/rehabilitation, Safety, Further Data:mobility progression Recommended Discharge Destination: Acute rehabilitation Recommended Discharge Services: Physical therapy at rehabilitation facility Recommended Equipment Needs: To be determined by next care provider Other recommendations: No other consults recommended at this time Pager: [phone] Zahida Patiño, PT 02/07/2022 17:11 ahida Lewis, PT - 02/07/2022 1709 EDT [facility] Rehabilitation Therapy Acute Therapy [facility] Physical Therapy Contact Note Date of Service: 02/07/2022 Physical therapy evaluation completed. Pt is well below his baseline level of function, requiring two people for transfers and short-distance ambulation. He is not demonstrating adequate functional mobility to discharge home with his . Recommend rehab ([facility] vs [facility], pending OT evaluation/input). Zahida Patiño, PT 02/07/2022 17:09 Gilbert Grady MD - 02/07/2022 0854 EDT Neurology Progress Note Admit Date: 02/04/2022 Hospital day: LOS: 3 days Date of Service: 02/07/2022 Procedure/Diagnosis: L MCA infarct PCP: Griselda Stanley Code Status: Full Code Chief Complaint: Stroke code 24 hour events: - NAEO Subjective: Marcell is doing well this morning. Reports he slept well, denies any pain. Otherwise no concurrent complaints. Reports he did eat yesterday, per RN is now awaiting breakfast. Discussed plan to remove NGTif able to maintain PO Current Facility-Administered Medications Medication Route Frequency ??? acetaminophen (TYLENOL) tablet 650 mg oral Q6H PRN Or ??? acetaminophen (TYLENOL) suppository 650 mg rectal Q6H PRN Or ??? acetaminophen (TYLENOL) solution unit dose cup 650 mg oral Q6H PRN ??? aspirin chewable tablet 81 mg oral DAILY ??? atorvastatin (LIPITOR) tablet 40 mg oral DAILY ??? bisacodyL (DULCOLAX) EC tablet 10 mg oral Daily PRN Or ??? bisacodyL (DULCOLAX) suppository 10 mg rectal Daily PRN ??? calcium carbonate (TUMS) 200 mg calcium (500 mg) per chewable tablet tablet,chewable 1 Tablet oral QID PRN ??? carbidopa-levodopa (SINEMET) 25-250 mg per tablet 1 Tablet oral 4 times per day ??? dextrose 50 % solution 12.5 g intravenous PRN ??? DULoxetine (CYMBALTA) delayed release capsule 60 mg oral DAILY ??? entacapone (COMTAN) tablet 200 mg oral 3 times per day ??? gabapentin (NEURONTIN) capsule 100 mg oral BID ??? glucagon injection 1 mg intramuscular PRN ??? heparin injection 5,000 Units subcutaneous Q12H ??? insulin aspart U-100 (NOVOLOG FLEXPEN) injection subcutaneous TID WC ??? insulin aspart U-100 (NOVOLOG FLEXPEN) injection subcutaneous QHS ??? labetaloL (TRANDATE) injection 10 mg intravenous Q4H PRN ??? metoprolol TARtrate (LOPRESSOR) tablet 50 mg oral BID Facility-Administered Medications Ordered in Other Encounters Medication Route Frequency ??? fentaNYL citrate (PF) injection intravenous PRN ??? lactated ringers (LR) infusion intravenous One Step Meds ??? ondansetron (PF) (ZOFRAN) injection intravenous PRN ??? propOFol (DIPRIVAN) injection intravenous PRN ??? rocuronium (ZEMURON) injection intravenous PRN ??? sugammadex (BRIDION) injection intravenous PRN Review of Systems: Review of systems not obtained due to patient factors: significant dysarthria Objective/Physical Exam: VS current: Temp: 36.2 ??C (97.2 ??F) Pulse: 74 Resp: 14 BP: (!) 157/95 SpO2: 98 % O2 Flow Rate (L/min): 0 l/min VS range for last 24 hours: Temp: [35.6 ??C (96.1 ??F)-36.2 ??C (97.2 ??F)] Pulse: -- Resp: [14-21] BP: (114-157)/(81-108) SpO2: [96 %-99 %] Respiratory Status for last 24 hours: SpO2: 98 % (02/07/22 0750) ICP range for last 24 hours: ICP: -- Pain: Patient Vitals for the past 8 hrs: Numeric Pain Level (Scale 1-10) Asleep 02/07/22 0715 0 Reassessed, sleeping comfortably, RR WNL. I&O: Intake/Output Summary (Last 24 hours) at 02/07/2022 0853 Last data filed at 02/07/2022 0837 Gross per 24 hour Intake ??? Output 3025 ml Net -3025 ml Neurological Exam: Mental status: Awake/alert. Aphasia improved, mild dysarthria. Follows simple commands. Intermittently conversant. Able to name knuckles, elbow, glasses. Calls thumb numb. Difficulty repeating 5 or 7-word sentences. Cranial nerves: CN I: Deferred CN II: Visual ward full to confrontation. CN III-IV & : EOMI CN V: Normal masseter bulk, tone. V1-V3 intact to light touch. CN VII: face symmetric CN VIII: Hearing is intact to voice. CN IX-X: Palate elevates symmetrically on activation. No hoarseness or dysarthria CN XI: Symmetric shoulder shrug. SCM/traps are full strength CN XII: Tongue protrusion midline, without deviation, atrophy, or fasciculations Motor: Increased tone of the bilateral UEs w/ L rigidity > R and resting tremor R > L. Strength: Right Left Elbow flexion 5/5 5/5 Elbow extension 5/5 5/5 Wrist extension 4+/5 5/5 Grasp 4/5* 5/5 Hip flexion 4+/5 5/5 Knee extension 5/5 5/5 Knee flexion 5/5 5/5 Ankle dorsiflexion 5/5 5/5 Ankle plantar flexion 5/5 5/5 Sensory: Sensation is intact to light touch and temperature in all four extremities. Labs: CBC: Recent Labs 02/04/22 1440 02/05/22 0415 02/06/22 0742 02/07/22 0642 WBC 8.40 8.12 6.58 7.07 RBC 4.19* 3.67* 4.13* 4.37 HGB 12.3* 10.7* 11.9* 12.6* HCT 35.5* 31.1* 35.0* 36.9* MCV 85 85 85 84 MCH 29.4 29.2 28.8 28.8 MCHC 34.6 34.4 34.0 34.1 PLT 143 137* 133* 141 NEUTROABS 5.38 -- -- -- BMP: Recent Labs 02/04/22 1440 02/05/22 0415 02/06/22 0742 02/07/22 0642 NA 141 138 140 141 K 3.9 3.7 3.7 3.9 CL 109 104 106 103 CO2 22 27 28 29 BUN 12 -- -- -- CREATININE 0.68 0.74 0.78 0.83 CALCIUM -- 8.3* -- -- MG -- 1.5* -- -- PHOS -- 3.6 -- -- Coags: Recent Labs 02/04/22 1440 PROTIME 12.6 INR 1.1 PTT 32 LFT: Recent Labs 02/05/22 0415 AST 22 ALT 15 Cardiac Markers: Recent Labs 02/04/22 1440 TROPONINI <0.034 Hemoglobin A1c: Recent Labs 02/05/22 0415 HGBA1C 6.8* Thyroid Function: Recent Labs 02/05/22 0415 TSH 4.22 Other studies: CT Head wo Contrast 02/04/22 IMPRESSION 1. Acute infarction of the posterior left parietal and temporal lobes. 2. Bithalamic frontal approach electrodes. CT Head wo Contrast 02/05/22 IMPRESSION Redemonstrated evolving left MCA territory infarcts without associated hemorrhage. TTE: ??? Left??Ventricle: Left ventricular systolic function was normal with an ejection fraction of 55-60%. Possible hypokinesis of the mid-apical inferoseptal wall. ??? Right??Ventricle: Right ventricular systolic function was normal. ??? IVC/SVC: The inferior vena cava was moderately dilated. ??? Left??Atrium: No right to left shunting observed with agitated saline contrast injection. Assessment: Timbo Su is a 66 y.o. male with a PMHx of progressive parkinson disease s/p DBS, polyneuropathy c/b R foot drop, atrial fibrillation (not on AC), T2DM, HLD, who presented as a transfer from [facility] as a stroke code after being found to have a L MCA occlusion on CTA, outside therapeutic window for tPA and subsequent plan for thrombectomy upon transfer. LKW 02/04 at 0530. NIH on arrival was 11, MRS 3 (d/t PD). Now s/p mechanical thrombectomy which revealed occlusion of L anterior M2 branch. TICI 3 flow (complete perfusion) achieved after first pass w/ good BP control thereafter. Etiology of L MCA occlusion remains cryptogenic, though there is suspicion for cardioembolic source given A fib not on AC, however he carries several other vascular risk factors. He continues to clinically improve s/p EVT, currently stable on the floor. Diet was advanced to dysphagia 3, tolerating well. Continues towork with PT/OT/RAG WILLOW OPERATOR, likely AR versus MENA will be indicated. Plan to to d/c NGT and morris today. Plan: Acute infarct secondary to L-M1 occlusion s/p mechanical thrombectomy -Q4 stroke checks and vital signs -[address] stable -Hyperglycemia management: SSI with aspart prn - goal BG <180 (A1c 6.8%) -PT/OT/RAG WILLOW OPERATOR evaluation -Dysphagia 3 diet w/ thin liquids and 1:1 assistance/supervision -D/c NG tube -Stroke prevention: - Cont aspirin 81 mg PO daily - Cont atorvastatin 40 mg PO daily - Cont Labetalol prn (has not required since 02/05 AM) for goal SBP <150. No antihypertensives listed in chart other than metoprolol which he takes for A fib Chronic atrial fibrillation Possible provoking factor for stroke given chronicity and lack of treatment with AC over the long-term. Reportedly, this was discussed in the past and he was deemed too high risk due to frequent falls w/ his progressive PD. - Continue on telemetry - TTE w/ preserved EF (55-60%) and possible hypokinesis of mid-apical inferoseptal wall, but no notable thrombus or valvular vegetations. Severely dilated LA. - Cont DOOR CUTTER metoprolol tartrate 50 mg BID; goal HR <110 - can tx w/ additional PO metop if sustaining in >120s-130s - No therapeutic AC at this time but will cont w/ DVT proph Parkinson's Disease s/p DBS Sees Dr. Hooper [place] [facility] and also [facility] Stevenson of their neuro dept. Recently had DBS interrogated. - Cont DOOR CUTTER regimen of carbidopa-levodopa 25-250 mg 1 tab QID + entacapone 200 mg TID Suspected diabetic polyneuropathy c/b R foot drop - Cont DOOR CUTTER gabapentin 100 mg BID and duloxetine 60 mg daily Day 3. Did patient receive t-PA or endovascular treatment? Yes - mechanical thrombectomy. NIHSS13 2 hrs post-thrombectomy. Recent NIHSS Values 02/04/2022 1400 02/04/2022 1800 02/05/2022 1649 NIHSS Testing Interval: Baseline 2 hr post treatment Other (Comment) Interval Exam Date: 02/04/22 02/04/22 02/05/22 Interval Exam Time: 1447 1824 1130 1A. Level of Consciousness: 0 0 1 1B. Ask Month and Age: 2 2 2 1C. Blink Eyes & Squeeze Hands: 2 2 0 2. Best Gaze: 1 1 0 3. Visual: 1 2 1 4. Facial Palsy: 0 0 0 5A. Motor - Left Arm: 0 0 0 5B. Motor - Right Arm: 0 0 0 6A. Motor - Left Le 0 0 6B. Motor - Right Le 0 ??? 7. Limb Ataxia: 0 0 Untestable 8. Sensory Loss: 0 0 0 9. Best Language: 3 3 2 10. Dysarthria: 2 2 2 11. Extinction And Inattention: 0 1 0 NIH Stroke Scale: [address] ordered: Yes Hemorrhagic conversion within the first 36 hours: No Is patient on telemetry? Yes Rhythms noted: Atrial fibrillation Discharge Plan: Uncertain at this time, but anticipate subacute rehab given baseline functional status due to PD now further hindered by stroke. Eda Machado MD Neurology, PGY-3 PGR [id number] 02/07/22 / 8:53 Attestation statement: I saw and examined the patient with the resident on 02/07/2022. I agree with the findings and plan of care documented in the resident's note. Gilbert Barksdale MD MSc Zahida Leonard, PT - 02/06/2022 1642 EDT [facility] Rehabilitation Therapy Acute Therapy [facility] Physical Therapy Contact Note Date of Service: 02/06/2022 A physical therapy consult order was received and the medical record was reviewed. Attempted to see pt for PT evaluation. Nursing notes that will be bringing in his brace this evening. Nursing assisted pt with transfer from bed to recliner with Robin Haines due to left LE malalignment in standing. Physical therapy deferred until tomorrow when brace will be available and in order to obtain an accurate picture of patient's functional status. Zahida Patiño, PT 02/06/2022 16:42 Malathi Cueva, RAG WILLOW OPERATOR - 02/06/2022 1410 EDT Speech-Language Pathology Clinical Swallow Cognitive Communicative Consult RAG WILLOW OPERATOR Diagnosis: Aphasia: , Dysarthria: and Dysphagia, oral phase: Medical Diagnosis: Aphasia [R47.01] Stroke (HCC-CMS) (HCC) [I63.9] Dysarthria [R47.1] Arterial ischemic stroke, MCA (middle cerebral artery), left, acute (HCC-CMS) (HCC) [I63.512] Acute CVA (cerebrovascular accident) (HCC-CMS) (HCC) [I63.9] Date of Onset: 02/04/22 Date of Referral: 02/04/22 Start Time: 1040 Total Therapy minutes: 40 minute(s) SUBJECTIVE: Alert and cooperative. The speech therapist is trying to help me with my voice (on the phone with his ) OBJECTIVE: History: Per Neurology note 02/06: Timbo Su??is a 66 y.o.??male??with a PMHx of progressive parkinson disease s/p DBS, polyneuropathy c/b R foot drop, atrial fibrillation (not on AC), T2DM, HLD, who presented as a transfer from [facility] as a stroke code after being found to have a L MCA occlusion on CTA, outside therapeutic window for tPA and subsequent plan for thrombectomy upon transfer. LKW 02/04 at 0530. NIH on arrival was 11, MRS 3 (d/t PD). Now s/p mechanical thrombectomy which revealed occlusion of L anterior M2 branch. TICI 3 flow (complete perfusion) achieved after first pass w/ good BP control thereafter. Etiology of L MCA occlusion remains cryptogenic, though there is suspicion forcardioembolic source given A fib not on AC, however he carries several other vascular risk factors. He continues to clinically improve s/p EVT, transferred to step down 02/06 with advancement of diet, continuing to work with PT/OT/RAG WILLOW OPERATOR. Anticipate MENA versus AR will be indicated. Current Diet: DYS 3 with thin liquids, NGT in place Diet prior to admission: Obtained from pt's , Arlyn. Pt with softer food diet at baseline (hamburgers cut up without buns, cut up chicken, spaghetti, etc) r/t recent dental extractions. Pt now edentulous and in process of obtaining partials. Pt takes medications whole with thin liquids and has occa sional coughing while drinking (no recent pna). No history of choking or difficulty with solids. Current Status: Cognitive Status: Patient presented with aphasia and dysarthria during evaluation. Respiratory Status: Respiratory status was judged to be WFL to support oral feeding. Clinical Swallow Consult: RN/patient report pt tolerating recommended diet level with adequate intake. No overt s/sx aspiration. Able to self-feed with set up assistance. Meds whole one at a time with water without difficulty per RN. Following interview with pt's , pt is currently tolerating least restrictive diet at this time. No further intervention for dysphagia indicated. Communication-Cognitive Consult The Informal measures were utilized to evaluate current speech-language/cognitive-linguistic function. Behavior: During evaluation today, patient presented as awake, alert and engaged. Speech-Language Function: Per patient's , at baseline pt is [place] which occasionally impacts his communication (ie misunderstanding/mishearing speaker message) though cognitive communicative function grossly intact besides those minor occurrences. Auditory Comprehension: Yes/No: 100% reliable for complex yes/no Following Commands: Followed 2 step commands without context Sue-Motor Evaluation/Motor Speech: Articulation: Patient presents with articulation characterized byreduced precision, inconsistent articulatory errors and speech intelligibility is reduced. Difficulty to fully assess due to presence of language deficits most consistent with fluent aphasia. Increased intelligibility with spontaneous phrase level utterances. Whole word and initial sound repetition present. Articulation deficits inconsistent. Voice: clear Verbal Expression: Fluent Automatic Sequences: Counted 1-12 independently, unable to continue r/t phonemic paraphasias despitemodel. KAEL: Perseverative on counting, given model, pt able to write initial abbreviation for 5/7 days and able to verbally state given written prompt/model after third attempt Repetition: intact at multisyllabic word level for initial trial, though unable to reproduce given model in majority of attempts Word associations: 2/3 with writing (provided with black and ___ and pt wrote ~white with errors.) Confrontational Namin/5 confrontational naming verbally, unable to reproduce later Convergent Naming: produced 3 items in a concrete independently given extended response time in first 2 trials, unable to reproduce despite max cues for visualization strategy in third trial Descriptive Namin/3 concrete naming (spelled out carrot verbally in last trial, though unable toproduce name given written/verbal prompt) Reading Comprehension: decoded parts of menu and selected choices verbally Written Expression: marked by errors in spelling, initial parts of word correct for KAEL. Able to write letters to dictation, unable to write word marker to dictation Augmentative/Alternative Communication: Patient will be appropriate for diagnostic probes with light-tech augmentative/alternative communication strategies. Social-Pragmatic Skills: Eye contact: Patient with fair eye contact throughout session. Facial Expression/Affect: Patient demonstrates flat affect. Prosody/Inflection: Patient demonstrates good vocal inflection. Cognitive-Linguistic: Unable to formally evaluate secondary to presence of language impairment. Attention/Concentration: Adequate sustained attention for 40 minute session. Orientation: Oriented to self, place, year, situation given yes/no. Recall: Not formally evaluated. Categorization/Association: Not formally evaluated. Organization: Not formally evaluated. Problem Solving/Reasoning: Not formally evaluated. Insight/Judgment: Increased signs of frustration this date demonstrating improved insight into deficits Patient/Family Education/Training: Topic: Patient/Family education and training was completed today including the role of Speech-Language Pathology, results of today's exam/recommendations, communication strategies, anatomy and physiology of the swallowing mechanism, discharge planning and questions were addressed. Learner: patient and family Method of Education: Verbal Barriers to Learning/Education: patient's inability to learn/carry over information at this time Patient: needs further instruction and education Family: was able to verbalize understanding of information Assessment /Clinical Impressions: is a 66 y.o. male with PD admitted with LMCA occlusion now s/p thrombectomy. A clinical swallow consult was completed today by Speech Language Pathology secondary to concerns for oropharyngeal dysphagia, and risk of laryngeal penetration/aspiration. currently presents with a mild oral phase dysphagia characterized by mildly prolonged mastication of soft solids with mild lingual stasis cleared with liquids wash. Following discussion with pt's spouse, suspect pt is at baseline swallow function given recent teeth extractions and mechanically altered diet at baseline. does remain at an increased risk of aspiration at this time given new onset cognitive-communic ative deficits. Compensatory strategies of providing set up assistance and intermittent support as needed appear effective in decreasing risk of aspiration. Anticipate patient will continue to toleratea modified diet during hospitalization, which is consistent with his baseline. Anticipate no furtherSLP services for dysphagia at this time. A cognitive communicative re-assessment was also completed this date. Pt's speech and language function presents as significantly improved from initial assessment. Pt now presents with a mild receptive, moderate-severe expressive aphasia further compounded by at least moderate motor speech deficits. Pt's verbal output marked by appropriate prosody with spontaneous appropriate and intelligible phrase level responses in conversation. Today, was was no reliable for complex yes/no questions and followedmulti-step commands given extended time and intermittent repetitions when requested. Given improvements in language function this date, motor speech deficits emerge with increased severity than previously suspected. Patient currently able to communicate basic wants and needs and direct his medical care with caregiver support. Given patient's age, independence prior to admission, and social/occupational demands, hewould benefit from intensive RAG WILLOW OPERATOR intervention. Based on the patient's premorbid level of functioning, medical diagnosis, comorbidities and patient/family support, the patient's prognosis is considered:Good. Functional Communication Measures ([place] [employer], 2002). The Functional Communication Measures (FCM???s) are a series of 7 point rating scales, ranging from least functional (Level 1) to most functional (Level 7). They have been developed by SUZANNA to describedifferent aspects of patient???s functional communication and swallowing abilities over the course of RAG WILLOW OPERATOR intervention. Swallowing Level 5: Swallowing is safe with minimal diet restriction and/or occasionally requires minimal cueing to use compensatory strategies. The individual may occasionally self-cue. All nutrition and hydration needs are met by mouth at mealtime. Spoken Language Expression Level 4: The individual is successfully able to initiate communication using spoken language in simple, structured conversations in routine daily activities with familiar communication partners. The individual usually requires moderate cueing, but is able to demonstrate use of simple sentences (i.e., semantics, syntax, and morphology) and rarely uses complex sentences/messages. Spoken Language Comprehension Level 5: Individual is able to understand communication in structured conversations with both familiar and unfamiliar communication partners. The individual occasionally requires minimal cueing to understand more complex sentences/messages. The individual occasionally init iates the use of compensatory strategies when encountering difficulty. GOALS: Pt will improve cognitive-linguistic functioning in order to increase participation and independencewith ADLs and communicate wants/needs with reduced caregiver support in current living environment. Pt will tolerate highest level safe/adequate PO intake without overt s/sx aspiration and min-no oralresidue. Plan /Recommendations: Patient will continue to benefit for further RAG WILLOW OPERATOR intervention in this setting to address communication intervention needs. Pt presents with a mild receptive and moderate-severe expressive aphasia further compounded by at least moderate motor speech deficits. Though pt's performance this date is significantly improved from initial assessment, pt is very far below baseline communication function as described by patient's spouse. Recommendations 1. Continue DYS 3 diet with thin liquids and 1:1 assistance/supervision 2. Aspiration precautions (HOB elevated, slow rate, small/single bites/sips, alternate liquids/solids) RAG WILLOW OPERATOR to continue to follow pt during acute hospitalization under consultative model. Please contact primary treating RAG WILLOW OPERATOR for change in status requiring priority re-assessment. Discharge Plan: Pt would greatly benefit from continued RAG WILLOW OPERATOR services in an acute interdisciplinary rehab program to target aphasia, apraxia, and dysarthria and improve pt's ability to make wants/needs known. Malathi Simmons MS [facility]-RAG WILLOW OPERATOR Cortext preferred; #[phone] (Saturday-Saturday, [phone]) RAG WILLOW OPERATOR Float Pager #[phone] (Saturday-Saturday-1630) Gilbert Grady MD - 02/06/2022 0721 EDT Neurology Progress Note Admit Date: 02/04/2022 Hospital day: LOS: 2 days Date of Service: 02/06/2022 Procedure/Diagnosis: L MCA infarct PCP: Griselda Stanley Code Status: Full Code Chief Complaint: Stroke code Subjective: Marcell is doing well this morning. Requests I turn the fan down. Wonders why he has the NG tube. Otherwise no concurrent complaints. Current Facility-Administered Medications Medication Route Frequency ??? acetaminophen (TYLENOL) tablet 650 mg oral Q6H PRN Or ??? acetaminophen (TYLENOL) suppository 650 mg rectal Q6H PRN Or ??? acetaminophen (TYLENOL) solution unit dose cup 650 mg oral Q6H PRN ??? aspirin chewable tablet 81 mg oral DAILY ??? atorvastatin (LIPITOR) tablet 40 mg oral DAILY ??? bisacodyL (DULCOLAX) EC tablet 10 mg oral Daily PRN Or ??? bisacodyL (DULCOLAX) suppository 10 mg rectal Daily PRN ??? carbidopa-levodopa (SINEMET) 25-250 mg per tablet 1 Tablet oral 4 times per day ??? dextrose 50 % solution 12.5 g intravenous PRN ??? DULoxetine (CYMBALTA) delayed release capsule 60 mg oral DAILY ??? entacapone (COMTAN) tablet 200 mg oral 3 times per day ??? gabapentin (NEURONTIN) capsule 100 mg oral BID ??? glucagon injection 1 mg intramuscular PRN ??? heparin injection 5,000 Units subcutaneous Q12H ??? insulin aspart U-100 (NOVOLOG FLEXPEN) injection subcutaneous TID WC ??? insulin aspart U-100 (NOVOLOG FLEXPEN) injection subcutaneous QHS ??? labetaloL (TRANDATE) injection 10 mg intravenous Q4H PRN ??? metoprolol TARtrate (LOPRESSOR) tablet 50 mg oral BID Facility-Administered Medications Ordered in Other Encounters Medication Route Frequency ??? fentaNYL citrate (PF) injection intravenous PRN ??? lactated ringers (LR) infusion intravenous One Step Meds ??? ondansetron (PF) (ZOFRAN) injection intravenous PRN ??? propOFol (DIPRIVAN) injection intravenous PRN ??? rocuronium (ZEMURON) injection intravenous PRN ??? sugammadex (BRIDION) injection intravenous PRN Review of Systems: Review of systems not obtained due to patient factors: significant dysarthria Objective/Physical Exam: VS current: Temp: 35.6 ??C (96.1 ??F) Pulse: 74 Resp: 12 BP: (!) 129/97 SpO2: 97 % VS range for last 24 hours: Temp: [35.6 ??C (96.1 ??F)-37.1 ??C (98.7 ??F)] Pulse: -- Resp: [12-21] BP: (99-145)/(70-99) SpO2: [90 %-97 %] Respiratory Status for last 24 hours: SpO2: 97 % (02/06/22 0626) ICP range for last 24 hours: ICP: -- Pain: No data found. I&O: Intake/Output Summary (Last 24 hours) at 02/06/2022 0721 Last data filed at 02/06/2022 0527 Gross per 24 hour Intake 370 ml Output 2175 ml Net -1805 ml Neurological Exam: Mental status: Awake/alert. Aphasia improved, mild dysarthria. Follows simple commands. Intermittently conversant. Cranial nerves: CN I: Deferred CN II: Visual ward full to confrontation. CN III-IV & : EOMI CN V: Normal masseter bulk, tone. V1-V3 intact to light touch. CN VII: face symmetric CN VIII: Hearing is intact to voice. CN IX-X: Palate elevates symmetrically on activation. No hoarseness or dysarthria CN XI: Symmetric shoulder shrug. SCM/traps are full strength CN XII: Tongue protrusion midline, without deviation, atrophy, or fasciculations Motor: Strength: Right Left Elbow flexion 5/5 5/5 Elbow extension 5/5 5/5 Wrist extension 4/5 5/5 Grasp 4/5* 5/5 Lifts LEs antigravity. No drift after 10s in UEs or after 5s in LEs. Increased tone of the bilateralUEs w/ L rigidity > R and resting tremor R > L. Sensory: Sensation is intact to light touch and temperature in all four extremities. Labs: CBC: Recent Labs 02/04/22 1440 02/05/22 0415 WBC 8.40 8.12 RBC 4.19* 3.67* HGB 12.3* 10.7* HCT 35.5* 31.1* MCV 85 85 MCH 29.4 29.2 MCHC 34.6 34.4 PLT 143 137* NEUTROABS 5.38 -- BMP: Recent Labs 02/04/22 1440 02/05/22 0415 NA 141 138 K 3.9 3.7 CL 109 104 CO2 BUN 12 -- CREATININE 0.68 0.74 CALCIUM -- 8.3* MG -- 1.5* PHOS -- 3.6 Coags: Recent Labs 02/04/22 1440 PROTIME 12.6 INR 1.1 PTT 32 LFT: Recent Labs 02/05/22 0415 AST 22 ALT 15 Cardiac Markers: Recent Labs 02/04/22 1440 TROPONINI <0.034 Hemoglobin A1c: Recent Labs 02/05/22 0415 HGBA1C 6.8* Thyroid Function: Recent Labs 02/05/22 0415 TSH 4.22 Other studies: CT Head wo Contrast 02/04/22 IMPRESSION 1. Acute infarction of the posterior left parietal and temporal lobes. 2. Bithalamic frontal approach electrodes. CT Head wo Contrast 02/05/22 IMPRESSION Redemonstrated evolving left MCA territory infarcts without associated hemorrhage. TTE: ??? Left??Ventricle: Left ventricular systolic function was normal with an ejection fraction of 55-60%. Possible hypokinesis of the mid-apical inferoseptal wall. ??? Right??Ventricle: Right ventricular systolic function was normal. ??? IVC/SVC: The inferior vena cava was moderately dilated. ??? Left??Atrium: No right to left shunting observed with agitated saline contrast injection. Assessment: Timbo Su is a 66 y.o. male with a PMHx of progressive parkinson disease s/p DBS, polyneuropathy c/b R foot drop, atrial fibrillation (not on AC), T2DM, HLD, who presented as a transfer from [facility] as a stroke code after being found to have a L MCA occlusion on CTA, outside therapeutic window for tPA and subsequent plan for thrombectomy upon transfer. LKW 02/04 at 0530. NIH on arrival was 11, MRS 3 (d/t PD). Now s/p mechanical thrombectomy which revealed occlusion of L anterior M2 branch. TICI 3 flow (complete perfusion) achieved after first pass w/ good BP control thereafter. Etiology of L MCA occlusion remains cryptogenic, though there is suspicion for cardioembolic source given A fib not on AC, however he carries several other vascular risk factors. He continues to clinically improve s/p EVT, currently stable on the floor. Diet was advanced, anticipate NG can be discontinued tomorrow. Continues to work with PT/OT/RAG WILLOW OPERATOR, likely AR versus AR will be indicated. Plan: Acute infarct secondary to L-M1 occlusion s/p mechanical thrombectomy -Q4 stroke checks and vital signs -[address] stable -Hyperglycemia management: SSI with aspart prn - goal BG <180 (A1c 6.8%) -PT/OT/RAG WILLOW OPERATOR evaluation -Dysphagia 3 diet w/ thin liquids and 1:1 assistance/supervision -NG tube remains in place for medications, may be able to remove if diet maintains -Stroke prevention: - Cont aspirin 81 mg PO daily - Cont atorvastatin 40 mg PO daily - Cont Labetalol prn (has not required since 02/05 AM) for goal SBP <150. No antihypertensives listed in chart other than metoprolol which he takes for A fib Chronic atrial fibrillation Possible provoking factor for stroke given chronicity and lack of treatment with AC over the long-term. Reportedly, this was discussed in the past and he was deemed too high risk due to frequent falls w/ his progressive PD. - Continue on telemetry - TTE w/ preserved EF (55-60%) and possible hypokinesis of mid-apical inferoseptal wall, but no notable thrombus or valvular vegetations. Severely dilated LA. - Cont DOOR CUTTER metoprolol tartrate 50 mg BID; goal HR <110 - can tx w/ additional PO metop if sustaining in >120s-130s - No therapeutic AC at this time but will cont w/ DVT proph Parkinson's Disease s/p DBS Sees Dr. Hooper from [facility] and also [facility]ie Stevenson of their neuro dept. Recently had DBS interrogated. - Cont DOOR CUTTER regimen of carbidopa-levodopa 25-250 mg 1 tab QID + entacapone 200 mg TID Suspected diabetic polyneuropathy c/b R foot drop - Cont DOOR CUTTER gabapentin 100 mg BID and duloxetine 60 mg daily Day 2. Did patient receive t-PA or endovascular treatment? Yes - mechanical thrombectomy. NIHSS13 2 hrs post-thrombectomy. Recent NIHSS Values 02/04/2022 1400 02/04/2022 1800 02/05/2022 1649 NIHSS Testing Interval: Baseline 2 hr post treatment Other (Comment) Interval Exam Date: 02/04/22 02/04/2202/05/22 Interval Exam Time: 1447 1824 1130 1A. Level of Consciousness: 0 0 1 1B. Ask Month and Age: 2 2 2 1C. Blink Eyes & Squeeze Hands: 2 2 0 2. Best Gaze: 1 1 0 3. Visual: 1 2 1 4. Facial Palsy: 0 0 0 5A. Motor - Left Arm: 0 0 0 5B. Motor - Right Arm: 0 0 0 6A. Motor - Left Le 0 0 6B. Motor - Right Le 0 ??? 7. Limb Ataxia: 0 0 Untestable 8. Sensory Loss: 0 0 0 9. Best Language: 3 3 2 10. Dysarthria: 2 2 2 11. Extinction And Inattention: 0 1 0 NIH Stroke Scale: [address] ordered: Yes Hemorrhagic conversion within the first 36 hours: No Is patient on telemetry? Yes Rhythms noted: Atrial fibrillation Patient Active Problem List Diagnosis Date Noted ??? *(H)Arterial ischemic stroke, MCA (middle cerebral artery), left, acute ([facility]) ([facility]) 02/04/2022 Priority: Medium ??? (H)Acute CVA (cerebrovascular accident) ([facility]) ([facility]) 02/04/2022 Priority: Medium ??? (H)Stroke ([facility]) ([facility]) 02/04/2022 Priority: Medium ??? (H)Aphasia 02/04/2022 Priority: Medium ??? (H)Dysarthria 02/04/2022 Priority: Medium Discharge Plan: Uncertain at this time, but anticipate subacute rehab given baseline functional status due to PD now further hindered by stroke. Polly Cruz MD Neurology Resident, PGY-2 Pager #[phone] Available on Cortext [phone] Attestation statement: I saw and examined the patient with the resident on 02/06/2022. I agree with the findings and plan of care documented in the resident's note. Gilbert Barksdale MD MSc Haritha Oneill - 02/05/2022 1723 EDT Initial Case Management/Social Work Assessment and Discharge Plan/Readmission Risk Assessment REASON FOR ADMISSION: Arterial ischemic stroke, MCA (middle cerebral artery), left, acute ([facility]) ([facility]) Patient understands reason for admission: Yes PATIENT INFO VERIFIED: PCP, Contact Info, Address Type of housing (single family, condo, apartment, [facility], single room occupancy, [facility] funded hotel room, group senior care) - Single Family Home Who does the patient live with? His , Ana Lilia. Does the patient have access to their own bedroom/bathroom/kitchen - or is it shared with others? Shared. Name of housing complex (ex [facility], [facility], etc)- N/A Housing Authority/Managing Organization - N/A Community Care Providers (spring encaser, [facility] nurse, etc) name and contact information- N/A LIVING ARRANGEMENTS AND ACCESSIBILITY ISSUES: Living Arrangements: Private residence, Spouse / significant other Levels: 1 Handicap access: Ramp, Railings into home, Grab bars Bathroom located on bedroom level?: Yes What in home social supports are available to the patient? Spouse / significant other Is 04/03 care available? Yes ADVANCED DIRECTIVES, POA &/or COLST IN PLACE: Healthcare Directive: No, patient unable to respond due to condition DIRECTIVES FOR FINANCES: TRANSPORTATION: Transportation: Family Transportation Additional Details: spouse Patient expects to be discharged to: To be determined CULTURAL, ADVENT and/or LANGUAGE factors affecting health care/discharge planning: No Insurance Information: Medicare and [employer] Nutrition: DISCHARGE RISK ASSESSMENT: Polypharmacy, > 7 medications;History of falls;Requires assistance with medication management;Requires assistance with ADLs/IADLs;Incontinent Total # selected above: Score > or equal to 5: This patient is HIGH RISK for re-hospitalization Tentative plan to address the risk of re-hospitalization for those at HIGH MODERATE RISK: RAPT TOOL: Age: [age] Gender: Male Ambulation distance: Housebound most of the time Gait device: Crutch/Walker Community Services: Home health, [facility], [facility]-none of one time a week Will you live with someone who will care for you?: Yes RAPT Tool Score: 7 Patient expects to be discharged to: To be determined SBIRT: SASQ (Single Alcohol Screening Question) How many times in the past year have you had 5 or more drinks in a single day?: Never How many times in the past year have you used an illegal drug or used a prescription medication for non-medical reasons?: Never Intervention in place/initiated?: No, not indicated FUNCTIONAL STATUS: Activities patient requires assistance: Food preparation/shopping, Bathing, Dressing, Mobility, Toileting Assistive Devices: Grab bars, Shower chair, Walker Walker type: Other (U Step Walker with seven wheels.) COMMUNITY RESOURCES/SUPPORTS: Primary Care Provider: Griselda Stanley PCP Verified: Specialists: Neurology ([facility]) Type of Home Health Services: None DME Provider: Pharmacy: No Pharmacies Listed Home Health: Other: POST HOSPITAL TRANSITION PLAN: To be determined pending clinical course and PT, OT and RAG WILLOW OPERATOR recommendations. Chart reviewed. Copied from H&P Timbo Su??is a 66 y.o.??male??with a PMHx of progressiveparkinson disease s/p DBS, polyneuropathy c/b R foot drop, atrial fibrillation (not on AC), T2DM, HLD, who presented as a transfer from [facility] as a stroke code after being found to have a L MCA occlusion on CTA, outside therapeutic window for tPA and subsequent plan for thrombectomy upon transfer. NIH on arrival was 11, MRS 3 (d/t PD). Now s/p mechanical thrombectomy which revealed occlusion of L anterior M2 branch. Patient is aphasic and unable to participate conversation with me other than an occasional nod of the head. I spoke with his , Ana Lilia, this afternoon to explain CMSW role and to complete the above. Patient lives with her in a single floor home with ramp access. He has a Trapeze in his bed room to help with bed mobility. He has grab rails throughout the home, a shower seat and a U Step walker. His is his primary caregiver and helps him with bathing, dressing, toileting, medication management,etc. His functional abilities fluctuate day to day. He has a brother, Behzad, who visits regularly totake him for walks. He does have a history of falling per 's report. They have a son who lives about 90 minutes away. She is unsure if they have ever applied for [employer] but she recalls being told they make too much money. He is not receiving any home health services at present. CM willfollow and assist as needed. HARITHA WALKER 02/05/2022 17:23 Malathi Cueva, RAG WILLOW OPERATOR - 02/05/2022 1204 EDT Speech-Language Pathology Clinical Swallow Evaluation and Cognitive Communicative Assessment RAG WILLOW OPERATOR Diagnosis: Aphasia: , Dysarthria: and Dysphagia, oral phase: Medical Diagnosis: Aphasia [R47.01] Stroke ([facility]) ([facility]) [I63.9] Dysarthria [R47.1] Arterial ischemic stroke, MCA (middle cerebral artery), left, acute ([facility] ([facility]) [I63.512] Acute CVA (cerebrovascular accident) ([facility]) ([facility]) [I63.9] Date of Onset: 02/04/22 Date of Referral: 02/04/22 Start Time: 1100 Total Therapy minutes: 40 minute(s) SUBJECTIVE: Alert and cooperative, verbalized No yes okay Marcell OBJECTIVE: History: Per Neurology note 02/04: Timbo Su is a 66 y.o. male with a PMHx of progressive parkinson disease s/p DBS, polyneuropathy c/b R foot drop, atrial fibrillation, DM, HLD, presenting as a transfer from [facility] as a stroke code after found to have a L MCA occlusion with plan for thrombectomy. LKW 02/04 at 0530. NIH 11, MRS 3. He was not a tPA candidate as he was out of the therapeutic window upon arrival to [facility]. Planning for thrombectomy and admission to the ICU under the neurology service for post-procedural checks. CT Head 02/04: IMPRESSION 1. Acute infarction of the posterior left parietal and temporal lobes. 2. Bithalamic frontal approach electrodes. PMH: No past medical history on file. No past surgical history on file. Current Diet: NPO with NGT pending RAG WILLOW OPERATOR assessment Diet prior to admission: Obtained from pt's , Arlyn. Pt with softer food diet at baseline (hamburgers cut up without buns, cut up chicken, spaghetti, etc) r/t recent dental extractions. Pt now edentulous and in process of obtaining partials. Pt takes medications whole with thin liquids and has occa sional coughing while drinking (no recent pna). No history of choking or difficulty with solids. Current Medications: Current Facility-Administered Medications Medication Dose Route Frequency Provider Last Rate Last Admin ??? acetaminophen (TYLENOL) tablet 650 mg 650 mg oral Q6H PRN Polly Cruz MD 650 mg at 02/05/22654 Or ??? acetaminophen (TYLENOL) suppository 650 mg 650 mg rectal Q6H PRN Polly Cruz MD Or ??? acetaminophen (TYLENOL) solution unit dose cup 650 mg 650 mg oral Q6H PRN Polly Cruz MD ??? aspirin chewable tablet 81 mg 81 mg oral DAILY Polly Cruz MD 81 mg at 02/05/22827 ??? atorvastatin (LIPITOR) tablet 40 mg 40 mg oral DAILY Polly Cruz MD 40 mg at 02/05/22827 ??? bisacodyL (DULCOLAX) EC tablet 10 mg 10 mg oral Daily PRN Polly Cruz MD Or ??? bisacodyL (DULCOLAX) suppository 10 mg 10 mg rectal Daily PRN Polly Cruz MD ??? carbidopa-levodopa (SINEMET) 25-250 mg per tablet 1 Tablet 1 Tablet oral 4 times per day Polly Cruz MD 1 Tablet at 02/05/22830 ??? dextrose 50 % solution 12.5 g 25 mL intravenous PRN Polly Cruz MD ??? DULoxetine capsule, delayed rel sprinkle 60 mg 60 mg nasogastric DAILY Rosana Nguyen MD 60 mgat 02/04/222022 ??? entacapone (COMTAN) tablet 200 mg 200 mg oral 3 times per day Polly Cruz MD 200 mg at 02/05/22830 ??? gabapentin (NEURONTIN) capsule 100 mg 100 mg oral BID Polly Cruz MD 100 mg at 02/05/22827 ??? glucagon injection 1 mg 1 mg intramuscular PRN Polly Cruz MD ??? heparin injection 5,000 Units 5,000 Units subcutaneous Q12H Polly Cruz MD 5,000 Units at 02/05/22828 ??? insulin aspart U-100 (NOVOLOG FLEXPEN) injection subcutaneous Q6H Polly Cruz MD ??? insulin aspart U-100 (NOVOLOG FLEXPEN) injection subcutaneous QHS Polly Cruz MD ??? labetaloL (TRANDATE) injection 10 mg 10 mg intravenous Q4H PRN Polly Cruz MD 10 mg at 02/05/22 0034 ??? metoprolol TARtrate (LOPRESSOR) tablet 50 mg 50 mg oral BID Polly Cruz MD 50 mg at 02/05/22 0828 Facility-Administered Medications Ordered in Other Encounters Medication Dose Route Frequency Provider Last Rate Last Admin ??? fentaNYL citrate (PF) injection intravenous PRN Conrado Vila, KNITTER MECHANIC 50 mcg at 02/04/22 1452 ??? lactated ringers (LR) infusion intravenous One Step Meds Conrado Vila, KNITTER MECHANIC New Bag at 02/04/22 1447 ??? ondansetron (PF) (ZOFRAN) injection intravenous PRN Conrado Vila, KNITTER MECHANIC 4 mg at 02/04/22 1528 ??? propOFol (DIPRIVAN) injection intravenous PRN Conrado Vila, KNITTER MECHANIC 100 mg at 02/04/22 1452 ??? rocuronium (ZEMURON) injection intravenous PRN Conrado Vila, KNITTER MECHANIC 50 mg at 02/04/22 1452 ??? sugammadex (BRIDION) injection intravenous PRN Conrado Vila, KNITTER MECHANIC 200 mg at 02/04/22 1528 Current Status: Cognitive Status: Patient presented with aphasia and dysarthria during evaluation. Respiratory Status: Respiratory status was judged to be WFL to support oral feeding. Clinical Swallow Evaluation: Patient/Family: consented to completing the clinical bedside swallow exam. Oral Peripheral Motor Exam: Face: Face was symmetrical with adequate strength and range of motion. No attempts at smiling, though per RN pt unable to smile at baseline. Lips: Adequate labial strength and range of motion. Tongue: Adequate lingual strength, range of motion and coordination. Velum: Unable to view during the evaluation. Dentition: Patient is edentulous. Teeth recently extracted, no dentures at baseline. Laryngeal Excursion: Within functional limits with anterior tipping upon palpation via subjective laryngeal palpation. Speech Intelligibility: Speech intelligibility is reduced, though suspect related to fluent aphasia with mild dysarthria c/b reduced volume and imprecise articulation. Vocal Quality: Patient presents with a clear vocal quality. Cough: Patient presents with a strong, non-productive cough. Positioning: Seen at bedside for evaluation. Consistencies Tested: was assessed with ice chips, thin liquids, puree foods and solid foods. Methods of Delivery: Patient was able to self administer all items with RAG WILLOW OPERATOR assistance using a spoon, cup and straw. Pt requires at least set up assistance at baseline d/t neuropathy impacting sensation to fingers. Oral Phase Findings: Oral phase of swallowing is within normal limits. Patient presents with adequate oral containment, functional chewing and appropriate bolus transport for all consistencies tested. Min lingual stasis independently cleared with liquid wash (pt noted to swish around mouth prior to swallow initiation).Pharyngeal Phase: Pharyngeal phase of swallowing is within normal limits. Patient presents with timely swallow response, adequate hyo-laryngeal excursion via palpation. Strong cough [id number] with thins via cup, suspect related to poor oral control when navigating cup sip around NGT. Intermittent coughing with liquids at baseline per spouse.Esophageal Phase: does not present with any s/sx concerning for esophageal phase deficits with limited PO trials during today's assessment Compensatory Strategies: The following compensatory swallow strategies were attempted during today'sevaluation: modified consistency and set-up assistance were provided Communication-Cognitive Evaluation: The Informal measures were utilized to evaluate current speech-language/cognitive-linguistic function. Behavior: During evaluation today, patient presented as awake, alert and engaged. Speech-Language Function: Per patient's , at baseline pt is [place] which occasionally impacts his communication (ie misunderstanding/mishearing speaker message) though cognitive communicative function grossly intact besides those minor occurrences. Auditory Comprehension: Yes/No: Unreliable for simple noncontextual yes/no, accuracy improved with multimodal input in context. Following Commands: Object Identification: Not assessed Sue-Motor Evaluation/Motor Speech: Articulation: Patient presents with articulation characterized byreduced precision, inconsistent articulatory errors and speech intelligibility is reduced. Difficulty to fully assess due to presence of language deficits most consistent with fluent aphasia with frequent neologisms. Articulation clear at word level for no Marcell okay yes. Voice: clear Verbal Expression: Fluent output, though largely nonsensical/unintelligible c/b predominately jargon/neologisms without awareness or attempts at self-correction Automatic Sequences: Counting 1-5: 2/5 KAEL: perseverative on counting, listed 7 and 9 Repetition: inconsistently at monosyllabic word level Word associations: No response initiation/incomprehensible verbal output Naming: unable to complete confrontational naming tasks with phonemic + sentence completion cue Reading Comprehension: Not evaluated Written Expression: Not evaluated Augmentative/Alternative Communication: Patient will be appropriate for diagnostic probes with light-tech augmentative/alternative communication strategies. Social-Pragmatic Skills: Patient demonstrated left gaze preference. Eye contact: Patient with fair eye contact throughout session. Facial Expression/Affect: Patient demonstrates flat affect. Prosody/Inflection: Patient demonstrates good vocal inflection. Cognitive-Linguistic: Unable to formally evaluate secondary to presence of language impairment. Attention/Concentration: Adequate sustained attention for 35 minute session. with intermittent cues for attention/eye contact to support receptive language Orientation: Difficult to assess d/t presence of language impairment, no response to verbal yes/no re: orientation. Oriented to self verbally. Recall: Not formally evaluated. Categorization/Association: Not formally evaluated. Organization: Not formally evaluated. Problem Solving/Reasoning: Not formally evaluated. Insight/Judgment: Suspect reduced insight into deficits as evidenced by limited signs of frustrationdespite severe communication deficits Patient/Family Education/Training: Topic: Patient/Family education and training was completed today including the role of Speech-Language Pathology, results of today's exam/recommendations, communication strategies, anatomy and physiology of the swallowing mechanism, discharge planning and questions were addressed. Learner: patient and family Method of Education: Verbal Barriers to Learning/Education: patient's inability to learn/carry over information at this time Patient: needs further instruction and education Family: was able to verbalize understanding of information Assessment /Clinical Impressions: is a 66 y.o. male with PD admitted with LMCA occlusion now s/p thrombectomy. A clinical swallow evaluation was completed today by Speech Language Pathology secondary to concernsfor oropharyngeal dysphagia, and risk of laryngeal penetration/aspiration. currently presents with a mild oral phase dysphagia characterized by mildly prolonged mastication of soft solids withmild lingual stasis cleared with liquids wash. Following discussion with pt's spouse, suspect pt is at baseline swallow function given recent teeth extractions and mechanically altered diet at baseline. does remain at an increased risk of aspiration at this time given new onset cognitive-communicative deficits. Compensatory strategies of providing set up assistance and intermittent support as needed appear effective in decreasing risk of aspiration. Prognosis for improvement in swallow function is judged to be good at this time secondary to anticipated improvements in medical condition andplan for partial to be inserted following hospitalization if appropriate. Anticipate patient will tolerate a modified diet during hospitalization, which is consistent with his baseline. A cognitive communicative assessment was also completed this date. Pt presents with a severe mixed receptive/expressive fluent aphasia further compounding by suspect mild motor speech deficits. Pt's verbal output marked by appropriate prosody with predominately nonsensical jargon/neologisms with intermittent ability to verbalize automatic speech appropriately at the word level. Pt's comprehension appears improved in conversation with context and multi-modal input, though pt unreliable with yes/no simple biographical questions and intermittently followed 1 step commands with model. Suspect pt with reduced insight into deficits as demonstrated by reduced signs of frustrations despite inability to communicate wants/needs with providers. Patient currently unable to communicate basic wants and needs and direct his medical care., Given patient's age, independence prior to admission, and social/occupational demands, he would benefit from intensive RAG WILLOW OPERATOR intervention. and Based on the patient's premorbid level of functioning, medical diagnosis, comorbidities and patient/family support, the patient's prognosis is considered: Good. Functional Communication Measures ([place] [employer], 2002). The Functional Communication Measures (FCM???s) are a series of 7 point rating scales, ranging from least functional (Level 1) to most functional (Level 7). They have been developed by SUZANNA to describedifferent aspects of patient???s functional communication and swallowing abilities over the course of RAG WILLOW OPERATOR intervention. Swallowing Level 5: Swallowing is safe with minimal diet restriction and/or occasionally requires minimal cueing to use compensatory strategies. The individual may occasionally self-cue. All nutrition and hydration needs are met by mouth at mealtime. Spoken Language Expression Level 2: The individual attempts to speak, although few attempts are accurate or appropriate. The communication partner must assume responsibility for structuring the communication exchange, and with consistent and maximal cueing, the individual can only occasionally produceautomatic and/or imitative words and phrases that are rarely meaningful in context. Spoken Language Comprehension Level 2: With consistent, maximal cues, the individual is able to follow simple directions, respond to simple yes/no questions in context, and respond to simple words or phrases related to personal needs. GOALS: Pt will improve cognitive-linguistic functioning in order to increase participation and independencewith ADLs and communicate wants/needs with reduced caregiver support in current living environment. Pt will tolerate highest level safe/adequate PO intake without overt s/sx aspiration and min-no oralresidue. Plan /Recommendations: Patient will continue to benefit for further RAG WILLOW OPERATOR intervention in this setting to address dysphagia management and intervention needs. Recommendations 1. DYS 3 diet with thin liquids and 1:1 assistance/supervision 2. Aspiration precautions (HOB elevated, slow rate, small/single bites/sips, alternate liquids/solids) Communication Access Recommendations: Patient's communication assistance needs are as follows: ?? Expressing basic physical needs/wants: ?? Provide prompts. ?? Provide yes/no questions, choices. ?? Point to referent items to support comprehension. ?? Ordering food: Menu assist ?? Comprehension of medical updates, changes in medical plan (e.g. changes in medications or surgeryand implications), discharge planning, carryover - Needs assistance RAG WILLOW OPERATOR to continue to follow pt during acute hospitalization under consultative model. Please contact primary treating RAG WILLOW OPERATOR for change in status requiring priority re-assessment. Discharge Plan: Pt would greatly benefit from continued RAG WILLOW OPERATOR services in an acute interdisciplinary rehab program pending clinical course. Malathi Simmons MS [facility]RAG WILLOW OPERATOR Cortext preferred; #[phone] (Saturday-Saturday, [id number]) RAG WILLOW OPERATOR Float Pager #[phone] (Saturday-Saturday [phone]) Gilbert Grady MD - 02/05/2022 0734 EDT Neurology Progress Note Admit Date: 02/04/2022 Hospital day: LOS: 1 day Date of Service: 02/05/2022 Procedure/Diagnosis: L MCA infarct PCP: Griselda Stanley Code Status: Full Code Chief Complaint: Stroke code Subjective: Timbo confirms he is doing okay this morning but is unable to participate in full subjective history due to his dysarthria. Confirms nothing is currently bothering him and he is not experiencing any pain. Current Facility-Administered Medications Medication Route Frequency ??? acetaminophen (TYLENOL) tablet 650 mg oral Q6H PRN Or ??? acetaminophen (TYLENOL) suppository 650 mg rectal Q6H PRN Or ??? acetaminophen (TYLENOL) solution unit dose cup 650 mg oral Q6H PRN ??? aspirin chewable tablet 81 mg oral DAILY ??? atorvastatin (LIPITOR) tablet 40 mg oral DAILY ??? bisacodyL (DULCOLAX) EC tablet 10 mg oral Daily PRN Or ??? bisacodyL (DULCOLAX) suppository 10 mg rectal Daily PRN ??? carbidopa-levodopa (SINEMET) 25-250 mg per tablet 1 Tablet oral 4 times per day ??? dextrose 50 % solution 12.5 g intravenous PRN ??? DULoxetine capsule, delayed rel sprinkle 60 mg nasogastric DAILY ??? entacapone (COMTAN) tablet 200 mg oral 3 times per day ??? gabapentin (NEURONTIN) capsule 100 mg oral BID ??? glucagon injection 1 mg intramuscular PRN ??? heparin injection 5,000 Units subcutaneous Q12H ??? insulin aspart U-100 (NOVOLOG FLEXPEN) injection subcutaneous Q6H ??? insulin aspart U-100 (NOVOLOG FLEXPEN) injection subcutaneous QHS ??? labetaloL (TRANDATE) injection 10 mg intravenous Q4H PRN ??? metoprolol TARtrate (LOPRESSOR) tablet 50 mg oral BID Facility-Administered Medications Ordered in Other Encounters Medication Route Frequency ??? fentaNYL citrate (PF) injection intravenous PRN ??? lactated ringers (LR) infusion intravenous One Step Meds ??? ondansetron (PF) (ZOFRAN) injection intravenous PRN ??? propOFol (DIPRIVAN) injection intravenous PRN ??? rocuronium (ZEMURON) injection intravenous PRN ??? sugammadex (BRIDION) injection intravenous PRN Review of Systems: Review of systems not obtained due to patient factors: significant dysarthria Objective/Physical Exam: VS current: Temp: 36.3 ??C (97.4 ??F) Pulse: 74 Resp: 15 BP: 133/77 SpO2: 95 % VS range for last 24 hours: Temp: [36.3 ??C (97.4 ??F)-36.4 ??C (97.6 ??F)] Pulse: [74] Resp: [10-24] BP: (103-162)/(66-95) SpO2: [91 %-98 %] Respiratory Status for last 24 hours: SpO2: 95 % (02/05/22 0600) ICP range for last 24 hours: ICP: -- Pain: No data found. I&O: Intake/Output Summary (Last 24 hours) at 02/05/2022 07 Last data filed at 02/05/2022 0600 Gross per 24 hour Intake 300 ml Output 925 ml Net -625 ml Exam: Gen: elderly male lying in bed on his back comfortably with resting tremor; NAD Resp: breathing comfortably on RA, saturating well Cardiovascular: mildly tachycardic w/ irregularly irregular rhythm. No M/R/G appreciated. Neurological Exam: Mental status: Awake/alert. Unable to answer orientation questions due to dysarthria, other than stating his last name clearly. Follows simple commands. Cranial nerves: CN I: Deferred CN II: Visual ward full to confrontation. No afferent pupillary defect noted. CN III-IV & : Subtle L gaze preference. Eyes cross midline but has difficulty following commands for full EOM testing. PERRL 4mm-->3mm b/l. CN V: Normal masseter bulk, tone. V1-V3 intact to light touch. CN VII: face symmetric with motor intact CN VIII: Hearing is intact to voice. No nystagmus noted. CN IX-X: Palate elevates symmetrically on activation. No hoarseness or dysarthria CN XI: Symmetric shoulder shrug. SCM/traps are full strength CN XII: Tongue protrusion midline, without deviation, atrophy, or fasciculations Motor: Strength: Right Left Elbow flexion 5/5 5/5 Elbow extension 5/5 5/5 Wrist extension 4/5 5/5 Grasp 4/5* 5/5 *R hand partially clenched at rest Lifts LEs antigravity and performs knee flexion/extension w/o issue. Not formally graded for strength. No drift after 10s in UEs or after 5s in LEs. Increased tone of the bilateral UEs w/ L rigidity > R and resting tremor R > L. Reflexes: Reflexes are 2+ and symmetric at the biceps, brachioradialis, and Achilles tendons bilaterally. R patellar reflex is brisk. L patella 2+. Babinski+ on the R. Plantar reflex is flexor on the L. Sensory: Sensation is intact to light touch and temperature in all four extremities. Coordination: Patient did not follow commands for FNF testing Gait: Gait assessment deferred Labs: CBC: Recent Labs 02/04/22 1440 02/05/22 0415 WBC 8.40 8.12 RBC 4.19* 3.67* HGB 12.3* 10.7* HCT 35.5* 31.1* MCV 85 85 MCH 29.4 29.2 MCHC 34.6 34.4 PLT 143 137* NEUTROABS 5.38 -- BMP: Recent Labs 02/04/22 1440 02/05/22 0415 NA 141 138 K 3.9 3.7 CL 109 104 CO2 22 27 BUN 12 -- CREATININE 0.68 0.74 CALCIUM -- 8.3* MG -- 1.5* PHOS -- 3.6 Coags: Recent Labs 02/04/22 1440 PROTIME 12.6 INR 1.1 PTT 32 LFT: Recent Labs 02/05/22 0415 AST 22 ALT 15 Cardiac Markers: Recent Labs 02/04/22 1440 TROPONINI <0.034 Hemoglobin A1c: Recent Labs 02/05/22 0415 HGBA1C 6.8* Thyroid Function: Recent Labs 02/05/22 0415 TSH 4.22 Other studies: CT Head wo Contrast 02/04/22 IMPRESSION 1. Acute infarction of the posterior left parietal and temporal lobes. 2. Bithalamic frontal approach electrodes. CT Head wo Contrast 02/05/22 IMPRESSION Redemonstrated evolving left MCA territory infarcts without associated hemorrhage. Assessment/Problems: Timbo Su is a 66 y.o. male with a PMHx of progressive parkinson disease s/p DBS, polyneuropathy c/b R foot drop, atrial fibrillation (not on AC), T2DM, HLD, who presented as a transfer from [facility] as a stroke code after being found to have a L MCA occlusion on CTA, outside therapeutic window for tPA and subsequent plan for thrombectomy upon transfer. LKW 02/04 at 0530. NIH on arrival was 11, MRS 3 (d/t PD). Now s/p mechanical thrombectomy which revealed occlusion of L anterior M2 branch. TICI 3 flow (complete perfusion) achieved after first pass w/ good BP control thereafter. Etiology of L MCA occlusion remains cryptogenic, though there is suspicion for cardioembolic source given A fib not on AC, however he carries several other vascular risk factors and thus far have been unable to review CTA H/N from [facility] though carotid disease to serve as a thromboembolic source would not be surprising based on his history, though this is only speculation at this point. Otherwise he has clinically improved to some degree after thrombectomy and can likely be transferred to neuro SDU post-CT today. Plan: Acute infarct secondary to L-M1 occlusion s/p mechanical thrombectomy -Remain in MICU for q1 VS/neuro checks this AM - Neurology resident to evaluate if change in neurologic status and consider need for stat CT imaging - Repeat CT head wo contrast at 1400 today w/o evidence of hemorrhagic conversion and thus can transfer to neurology SDU if a bed is available -Stop IVF after 24 hrs of NS complete and encourage PO -Hyperglycemia management: SSI with aspart prn - goal BG <180 (A1c 6.8%) -PT/OT/RAG WILLOW OPERATOR evaluation - input appreciated -Dysphagia 3 diet w/ thin liquids and 1:1 assistance/supervision -Stroke prevention: - Cont aspirin 81 mg PO daily - Cont atorvastatin 40 mg PO daily - Cont Labetalol prn (has not required since 02/05 AM) for goal SBP <150. No antihypertensives listed in chart other than metoprolol which he takes for A fib Chronic atrial fibrillation Possible provoking factor for stroke given chronicity and lack of treatment with AC over the long-term. Reportedly, this was discussed in the past and he was deemed too high risk due to frequent falls w/ his progressive PD. - Continue on telemetry - TTE w/ preserved EF (55-60%) and possible hypokinesis of mid-apical inferoseptal wall, but no notable thrombus or valvular vegetations. Severely dilated LA. - Cont DOOR CUTTER metoprolol tartrate 50 mg BID; goal HR <110 - can tx w/ additional PO metop if sustaining in >120s-130s - No therapeutic AC at this time but will cont w/ DVT proph Parkinson's Disease s/p DBS Sees Dr. Hooper from [facility] and also [employer] Winnie Stevenson of their neuro dept. Recently had DBS interrogated. 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 Yes Day 1. Did patient receive t-PA or endovascular treatment? Yes - mechanical thrombectomy. NIHSS13 2 hrs post-thrombectomy. Day 1 Assessment: Recent NIHSS Values 02/04/2022 1400 02/04/2022 1800 02/05/2022 1649 NIHSS Testing Interval: Baseline 2 hr post treatment Other (Comment) Interval Exam Date: 02/04/22 02/04/22 02/05/22 Interval Exam Time: 1447 1824 1130 1A. Level of Consciousness: 0 0 1 1B. Ask Month and Age: 2 2 2 1C. Blink Eyes & Squeeze Hands: 2 2 0 2. Best Gaze: 1 1 0 3. Visual: 1 2 1 4. Facial Palsy: 0 0 0 5A. Motor - Left Arm: 0 0 0 5B. Motor - Right Arm: 0 0 0 6A. Motor - Left Le 0 0 6B. Motor - Right Le 0 ??? 7. Limb Ataxia: 0 0 Untestable 8. Sensory Loss: 0 0 0 9. Best Language: 3 3 2 10. Dysarthria: 2 2 2 11. Extinction And Inattention: 0 1 0 NIH Stroke Scale: [address] ordered: Yes Hemorrhagic conversion within the first 36 hours: No Is patient on telemetry? Yes Rhythms noted: Atrial fibrillation Patient Active Problem List Diagnosis Date Noted ??? *(H)Arterial ischemic stroke, MCA (middle cerebral artery), left, acute ([facility] ([facility]) 02/04/2022 Priority: Medium ??? (H)Acute CVA (cerebrovascular accident) ([facility]) ([facility]) 02/04/2022 Priority: Medium ??? (H)Stroke ([facility]) ([facility]) 02/04/2022 Priority: Medium ??? (H)Aphasia 02/04/2022 Priority: Medium ??? (H)Dysarthria 02/04/2022 Priority: Medium Discharge Plan: Uncertain at this time, but anticipate subacute rehab given baseline functional status due to PD now further hindered by stroke. Sergei Covington DO PGY-1, Neurology Pager: [phone] Available on Cortext 02/05/2022 7:35 Attestation statement: I saw and examined the patient with the resident on 02/05/2022. I agree with the findings and plan of care documented in the note. Gilbert Barksdale MD MSc Polly albarado RN - 02/04/2022 1823 EDT FOUR EYES SKIN ASSESSMENT Four Eyes skin assessment was performed on admission to the unit by Polly Escobar RN and Kenneth BHATIA. Areas of concern: [] Occiput [] Nose [] Ear [] Lip [] Scapula [] Spinous process [] Shoulder [] Elbow [] Iliac crest [] Sacrum/coccyx [] Ischial tuberosity [] Trochanter [] Knee [] Malleolus [] Heel [] Toe [x] Other: Lower extremity scabs/bruising Patient has the following devices at the time of this assessment: NGT, BP cuff and Morris. Device related pressure injury present? No Instructions: ??? Add LDA for any identified wounds ??? Add [place] image for any suspected PI ??? Order wound consult if suspected PI identified 02/04/2022 18:23 Yudy Hewitt RN - 02/04/2022 1513 EDT Pt received from ER transfer from [facility] to IR 23 at 1442. Pt name and verified using armband and verbally. Patients allergies are unknown at this time. Pt has moderate aphasia and unable to verbalize Pt educated on procedure side effects Pt in supine position on table, safety strapsin place. Anestheisa team at bedside for intubation. Sterile prep of bilateral groins with duraprep by ELP in the usual sterile fashion in compliance with manufacturers recommendation. Time out done with all staff in room prior to start of procedure . Pt monitored through out procedure by anesthesia Pt tolerated well. Report given to Collette BHATIA on MICU 402. Pt transferred in stable condition. documented in this encounter H&P Notes Polly Cruz MD - 02/04/2022 1441 EDT Stroke History and Physical Service Date: 02/04/2022 Admit Date: 02/04/2022 14:29 Primary Care Provider: Griselda Stanley Referring MD:Madison Ascencio* Code Status: No Order Chief Complaint: stroke code HPI Timbo Su is a 66 y.o. male with a PMHx of progressive parkinson disease s/p DBS, polyneuropathy c/b R foot drop, atrial fibrillation, DM, HLD, presenting as a transfer from [facility] as a stroke code after found to have a L MCA occlusion with plan for thrombectomy. LKW 0530 this morning after waking. His found him at approximately 0830 with unintelligible speech and inability to follow commands. EMS was called and he was initially evaluated at [facility], found tohave a LMCA on CTA imaging. Primary NIH of 6. He received 300 mg of ASA and IVF His provided verbal consent for thrombectomy with Dr. Ramirez at 1330 via telephone and he was transported by life flight. En route he was hypertensive up to 190 systolic and given 20 mg IV labetalol with improvement. On arrival to [facility], NIH 11. MRS 3 due to progressive PD, neuropathy. Uses a walker at baseline with decline over the past few years. Review of Systems Unable to obtain No past medical history on file. No past surgical history on file. Social History Tobacco Use ??? Smoking status: Not on file Substance Use Topics ??? Alcohol use: Not on file No family history on file. Not on File Objective Vitals Temp: --, Heart Rate: --, Pulse: [74] , Resp: [15] , BP: (144)/(79) , SpO2: [95 %] , Numeric Pain Level (Scale 1-10): -- Weight: There is no height or weight on file to calculate BMI. Neurological Exam Awake and alert. Global aphasia, unintelligible speech. Intermittently follows commands but inconsistent. Subtle left gaze preference, eyes do not cross midline. Partial hemianopsia, does not blink to threat on the right Face symmetric Severe dysarthria Hearing intact to voice Moves all extremities antigravity on command LUE no drift after 10 seconds LLE no drift after 5 seconds RUE no drift after 10 seconds RLE no drift after 5 seconds Sensory intact without extinction to light touch Labs I have personally reviewed Recent Labs 02/04/22 1440 WBC 8.40 RBC 4.19* HGB 12.3* HCT 35.5* MCV 85 MCH 29.4 MCHC 34.6 PLT [address] head with LMCA territory infarct Assessment Timbo Su is a 66 y.o. male with a PMHx of progressive parkinson disease s/p DBS, polyneuropathy c/b R foot drop, atrial fibrillation, DM, HLD, presenting as a transfer from [facility] as a stroke code after found to have a L MCA occlusion with plan for thrombectomy. LKW 02/04 at 0530. NIH 11, MRS 3. He was not a tPA candidate as he was out of the therapeutic window upon arrival to [facility]. Planning for thrombectomy and admission to the ICU under the neurology service for post-procedural checks. Plan Acute infarct secondary to L-M1 occulsions/p tPA thrombectomy - Will admit to ICU on neurology service - Q1 vitals and neurochecks - neurology resident to evaluate if change in neurologic status and consider need for stat CT imaging -NIHSS checks at 2 hours post tPA, 24 hours post-admission, at discharge -BP goal: SBP <150 -IV labetalol or hydralazine prn -IVF 100 cc/hr NS for 24 hours -Euthermia and vigilant avoidance of fever; PRN tylenol ordered, q4h temperature checks with vitals -Hyperglycemia management: SSI with aspart Goal BG<180 -Obtained CBC, CMP, PT/PTT prior to procedure -CT head: complete -MRI head: ordered -CTA head/neck: complete -Tele: continuous -Echo: ordered -Labs: Obtained FLP, HbA1c, TSH, CBC, CMP, PT/PTT prior to tPA. -PT/OT consultation -Bedside dysphagia screen: Failed -RAG WILLOW OPERATOR consultation -NG tube placement for PD medications -Stroke prevention: -Antiplatelet: ASA daily -Statin: Atorvastatin 40 mg PO QD -Anti-HTN: Labetalol PRN vs Nicard gtt for now Patient will need a formal medication reconciliation. I will reach out to his to have her bringa list of medications. A list of medications was not sent with his information packet. Additional Information for Stroke Stroke code: Last Known Well Time: 529 Date: 02/04/22 [facility], NIHSS: NIHSS Criteria 02/04/2022 Test Interval Baseline Exam Date 02/04/2022 Exam Time 1447 LOC 0 LOC Questions 2 LOC Commands 2 Best Gaze 1 Visual 1 Facial Palsy 0 Left Arm, Motor 0 Right Arm, Motor 0 Left Leg, Motor 0 Right Leg, Motor 0 Limb Ataxia 0 Sensory 0 Best Language 3 Dysarthria 2 Extinction/Inatten. 0 Total Score 11 t-PA Decision: not given, patient was outside the therapeutic window Is patient on telemetry?: Yes Arrhythmias noted while on telemetry: NSR Discharge Plan: Uncertain at this time Admission status Patient has no Admit to Inpatient or Initiate Observation Status order on this encounter. POLLY CRUZ MD 02/04/2022 14:57 Associated attestation - Analy Ramirez MD - 02/04/2022 7164 EDT Attestation: I saw and examined the patient with Dr. Cruz on 02/04/2022. I agree with the resident's findings and plans as documented except as modified below. 66 yo man with history of PD (s/p BL DBS) and DM, baseline mRS 3, who was LKN at 0530 AM and presented to [facility] with aphasia and right sided weakness. Imaging notable for a L distal M1 occlusion. Discussed with Dr. Sandhu, vascular neurologist at [facility] and immediately transferred for EVT. S: unable to answer due to aphasia O: L gaze preference, no BTT on the right, severly dysarthric and globally aphasic. No drift on the right but weaker grinder chipper A: L MCA occlusion s/p EVT with TICI 3 reperfusion. Etiology cryptogenic at this time P: - admit to ICU - post EVT neuro checks and vitals - SBP CAP 140 - daily ASA and statin (already received a dose today) - repeat head CT tomorrow (24 hr post) - needs PT/OT/RAG WILLOW OPERATOR when stable - DVT ppx - resume PD medications (may need NGT) The patient is critically ill and has a high probability of imminent life- threatening deterioration due to left MCA occlusion, risk of large infarct and malignant edema. I spent a total of 95 minutes coordinating care with [facility] neurology, [facility] and [facility], obtaining a comprehensive medical history, per forming a complete neurological exam, and reviewing pertinent laboratory data. I independently reviewed imaging studies. I talked to the patient , Ana Lilia, about prognosis, risks, and benefits of acute reperfusion therapy. Analy Ramirez MD Vascular Neurology Attending documented in this encounter Procedure Notes Yudy Dougherty RN - 02/04/2022 1716 EDT Cortrack Feeding Tube Placement Procedure Note Title of Procedure: Cortrack Feeding Tube Placement Date Performed: 02/04/2022 Time Performed: 1699 Performed by: Mery Dougherty Indications and/or Provisional Diagnosis: Condition: The condition of the patient was Serious Consent: The patient/surrogate has consented after being informed of the risks, benefits and alternatives Ordered By: Ashley Time Out: A time-out was completed prior to procedure verifying correct patient, procedure, site, positioning, and special equipment if applicable. Type of Anesthesia or Sedation: Phenylephrine-lidocaine 0.25%-3% topical solution Procedure Technique/Description: Performed tube placement using the Cortrak EAS system2 X-Ray Confirmation: Yes Final Tube Position: Small bowel Exposed Catheter Length (cm): 95 at nares Complications: None YUDY DOUGHETRY RN 02/04/2022 17:18 Fidel Kent MD - 02/04/2022 1535 EDT IR Procedure Note Procedure: IR Thrombectomy Date Performed: 02/04/2022 Radiologist/Drum Drier(s): [place] Sedation/Anesthesia: General Time Out: A time-out was completed prior to procedure verifying correct patient, procedure, site, positioning, and special equipment if applicable. Estimated Blood Loss: Unless otherwise noted, there was no blood loss, specimens removed, cultures obtained, or drains retained. Specimens: None Complications: None Condition: Stable Post Procedure Diagnosis: Left MCA occlusion Findings: Occlusion of a left middle cerebral artery, TICI 3 following first pass. 1507 Puncture, 1517 first pass, 1517 open. Recommendations: 1. Right leg straight 3 hours. 2. SBP less than 150. Yemi Wren MD 02/04/2022 15:35 documented in this encounter ED Notes Bibi Hanley - 02/04/2022 1441 EDT Umalw-cs-Niou BGL was 179 mg/dl. Bibi cardenas - 02/04/2022 1438 EDT Blood drawn via saline lock per protocol, rainbow and pink tube(s) sent to lab per order. Estela Vigil MD - 02/04/2022 1430 EDTAssociated Order(s): Critical Care This patient received an evaluation and medical screening exam for emergent medical conditions at the [facility] on 02/04/2022 Scribe attestation: This documentation is recorded by Jenny Green acting as Scribe under the direction and presence of Estela Vigil MD. Estela Vigil MD: I personally performed the services recorded by the scribe in my presence. I confirm the scribe's documentation has been reviewed by me to accurately and completely record my work, treatment, procedures, and medical decision making. JOY Su is a 66 y.o. male with a PMH including Parkinson's disease who presents to the ED as a transfer from [facility] as a stroke code. The transport team report that the patient's last known well time was at 0530, his found him at 0800 with garbled speech and weakness in his right arm. They note that the patient has Parkinson's and normal speech at baseline but cannot smile normally at baseline. They report that at the outside hospital he had a CT which showed a large left MCA occlusion, was given rectal aspirin. Transport state that en route he had a systolic blood pressure of 190 and wasadministered 40 mg labetalol. They note that his speech continued to be garbled with no change on exam with them. They also mention that he has a deep brain stimulator. History was provided by: EMS Patient's pertinent PMH, FH, SH were reviewed and updated PRN. ROS A 10-point review of systems was performed. The patient answered negative to all of the questions with the exceptions of those explicitly detailed as positive in the HPI. Pertinent negatives are also explicitly stated. Physical Exam Vital Signs Pulse: 74 Resp: 15 SpO2: 95 % BP: (!) 144/79 BP Patient Position: Supine O2 Device: None (Room air) Nursing notes and vital signs were reviewed. Constitutional: Well appearing, in no acute distress Eyes: Pupils equal and reactive to light, no scleral icterus Mouth: Moist oral mucosa without apparent lesions Heart: RRR without MRG Lungs: Clear to ascultation Abdomen: Soft, nontender, nondistended Skin: No overt rashes on exposed skin Extremities: Moving spontaneously, warm and well perfused Neuro: Awake and alert. Global aphasia, unintelligible speech. Intermittently follows commands but inconsistent. Subtle left gaze preference, eyes do not cross midline. Partial hemianopsia, does not blink to threat on the right. Face symmetric. Severe dysarthria. Hearing intact to voice. Moves all extremities antigravity on command. LUE no drift after 10 seconds. LLE no drift after 5 seconds. RUE no drift after 10 seconds. RLE no drift after 5 seconds. Sensory intact without extinction to light touch Psych: No agitation or overt thought disorder Medical Decision Making Multiple etiologies were considered for this patient's symptoms including: Patient was transferred with a known left MCA occlusion. Laboratory Results Labs Reviewed SCREENING GLUCOSE - Abnormal Result Value Status Glucose, Screening 162 (*) Final COMPLETE BLOOD COUNT AND DIFFERENTIAL - Abnormal WBC 8.40 Final RBC 4.19 (*) Final Hemoglobin 12.3 (*) Final HCT 35.5 (*) Final MCV 85 Final MCH 29.4 Final MCHC 34.6 Final RDW-CV 13.8 Final RDW-SD 42.5 Final PLT 143 Final MPV 11.2 Final Neutrophils 64.0 Final Lymphocytes 28.0 Final Monocytes 6.5 Final Eosinophils 0.7 Final Basophils 0.4 Final Immature Grans 0.4 Final Absolute Neutrophils 5.38 Final Absolute Lymphocytes 2.35 Final Absolute Monocytes 0.55 Final Absolute Eosinophils 0.06 Final Absolute Basophils 0.03 Final Absolute Immature Grans 0.03 Final Type of Differential: Auto Final ELECTROLYTES - Normal Sodium 141 Final Potassium 3.9 Final Chloride 109 Final CO2 Total 22 Final Anion Gap 10 Final BUN - Normal BUN 12 Final CREATININE - Normal Creatinine 0.68 Final eGFR 103 Final PROTIME - Normal I.N.R. 1.1 Final Pro Time 12.6 Final Narrative: Moderate Intensity Coumadin INR = 2.0-3.0 Adjustments in anticoagulant therapy dose should be based on the INR and NOT on the Protime. PTT - Normal PTT 32 Final TROPONIN I - Normal Troponin I (ng/mL) <0.034 Final Narrative: The results of this assay can be falsely lowered due to the consumption of Biotin. COVID-19 TESTING PROFILE ED STROKE PANEL Narrative: The following orders were created for panel order PROFILE ED STROKE PANEL. Procedure Abnormality Status --------- ------ SCREENING GLUCOSE[[id number]] Abnormal Final result COMPLETE BLOOD COUNT AND...[[id number]] Abnormal Final result ELECTROLYTES[[id number]] Normal Final result BUN[[id number]] Normal Final result CREATININE[[id number]] Normal Final result PROTIME[[id number]] Normal Final result PTT[[id number]] Normal Final result TROPONIN I[[id number]] Normal Final result HOLD BLUE TOP[[id number]] Final result Please view results for these tests on the individual orders. HOLD BLUE TOP Hold Hold Final POCT GLUCOSE, INTERFACED POCT GLUCOSE, INTERFACED TYPE AND SCREEN ABO A Final Rh Factor Positive Final Antibody Screen Negative Final Specimen Expires: 02/07/2022 @ 23:59 Final Data Interpretation Imaging obtained was reviewed and independently interpreted: CT HEAD WO CONTRAST Preliminary Result 1. Acute infarction of the posterior left parietal and temporal lobes. 2. Bithalamic frontal approach electrodes. IR STROKE THROMBECTOMY (Results Pending) TRANSTHORACIC ECHO (TTE) COMPLETE (Results Pending) XR FEEDING TUBE PLACEMENT (Results Pending) Laboratory results independently reviewed, significant for: Stroke panel with a glucose of 162, RBC 4.19, hemoglobin 12.3, hematocrit 35.5. Procedures Critical Care Performed by: Estela Vigil MD Authorized by: Estela Vigil MD Critical care provider statement: Critical care time (minutes): 60 Critical care time was exclusive of: Separately billable procedures and treating other patients andteaching time Critical care was necessary to treat or prevent imminent or life-threatening deterioration of the following conditions: ASSISTANT IMPORT MANAGER failure or compromise and dehydration Critical care was time spent personally by me on the following activities: Blood draw for specimens, development of treatment plan with patient or surrogate, discussions with consultants, evaluation of patient's response to treatment, examination of patient, interpretation of cardiac output measuremen ts, obtaining history from patient or surrogate, ordering and performing treatments and interventions, ordering and review of laboratory studies, ordering and review of radiographic studies, pulse oximetry, re-evaluation of patient's condition and review of old charts ED Course A medical screening exam was performed. Timbo Su is a 66 y.o. male with PMH including Parkinson's disease who presents to the ED as a transfer from [facility] [place]. Physical exam was significant for: Awake and alert. Global aphasia, unintelligible speech. Intermittently follows commands but inconsistent. Subtle left gaze preference, eyes do not cross midline. Partial hemianopsia, does not blink to threat on the right. Face symmetric. Severe dysarthria. Hearing intact to voice. Moves all extremities antigravity on command. LUE no drift after 10 seconds. LLE no drift after 5 seconds. RUE no drift after 10 seconds. RLE no drift after 5 seconds. At this time, the patient was admitted to Neurology under the care of Dr. Analy Ramirez. While under my care in the Emergency Department, the patient's pain was managed to an adequate levelweighing risk vs. benefit of medication. Clinical Impression Final diagnoses: Stroke (HCC-CMS) (HCC) Disposition Admitted Disposition decisions were made weighing risks and benefits of hospitalization vs. outpatient treatment, the risk for further decompensation, and the patient's wishes. The patient's condition was severe enough to require additional inpatient evaluation and treatment, or the patient was at risk of sudden decompensation. Any further pain treatment will be at the discretion of the provider following up with the patient based on their clinical assessment. documented in this encounter Miscellaneous Notes Plan of Matthias - Tyler Souza RN - 02/10/2022 0918 EDT Problem: Daily Care Plan Goals Goal: Care Plan Documentation Flowsheets (Taken 02/10/2022 0806) Area of Focus: Discharge Plan Goal This Shift: pt will discharge to rehab this shift Nursing Discharge Note D: Patient noted with discharge orders to: [facility]. IV d/c'd. Belongings collected and sent home with patient. [place] [phone] @[phone]. R: Patient and Family verbalized understanding of discharge instructions and denied further questions. TYLER SOUZA RN 02/10/2022 9:25 lan of Care - Tyler Souza RN - 02/09/2022 1756 EDT Problem: Daily Care Plan Goals Goal: Care Plan Documentation Flowsheets (Taken 02/09/2022 0913) Area of Focus: GI//Elimination Goal This Shift: pt will have bowel movement this shift Data: Pt A&O this shift, easily wakeful and making needs known. Admit with L MCA and L anterior branch occlusion. Notable tremors in BUE's. Speech is hesitant and slurred but has understandable thoughts. Action: Repositioning in bed q2 and prn, providing incontinence care and offering urinal. BG monitoring with meals. See MAR for medication administration. SNVS q4. Suppository x1 given this morning perorder. Response: Positive effects from suppository. Stroke checks have been unchanged. Plan is for AR tomorrow at 0900. TYLER SOUZA RN 02/09/2022 17:57 lan of Care - Jumana Chiu RN - 02/09/2022 0417 EDT Problem: Daily Care Plan Goals Goal: Care Plan Documentation Outcome: Met This Shift Flowsheets (Taken 02/08/20222158) Area of Focus: GI//Elimination Goal This Shift: pt will be offered urinal q2h, will have decreased incontince, will have BM Problem: Safety: Goal: Will remain free from falls Outcome: Met This Shift Problem: Bowel/Gastric: Goal: Ability to achieve a regular elimination pattern will improve Outcome: Ongoing Data: Pt admitted for L MCA. Transferred from SDU to floor at 2100. Pt is A&Ox3, mild expressiveaphasia. Received report that pt incontinent of urine. Action: Q2h reposition, offered pt urinal q2h. Stroke neuro VS Q4h. Response: Pt had no episodes of incontinence overnight and was able to void using the urinal every time it was offered to him. No stroke neuro changes. Pt slept overnight in between cares. JUMANA CHIU RN 02/09/2022 4:17 lan of Susan Matute RN - 02/08/2022 9897 EDT Data: HD 4 L MCA sp thrombectomy. Hx of Parkinson's. A&Ox3. 3/3 strength all extremities. Robin steady OOB. Denies pain. Incontinent/continent urine, voiding chary/orange. Constipation. Blanchable redness buttocks. A fib on tele. Action: Q4 vitals and neuro checks. Medicated per eMAR. Bowel meds given. OOB to chair during day, stood at bedside with walker x2. Waffle cushion in chair, meplex on sacrum. Response: VSS. No BM. Successfully asked for and used urinal x1. Speech remains slurred and garbled with difficulty word finding and mixing up words- but able to make needs known. WCM. SUSAN HASSAN RN 02/08/2022 15:57 Problem: Safety: Goal: Will remain free from falls Outcome: Met This Shift Problem: Daily Care Plan Goals Goal: Care Plan Documentation Outcome: Not Met This Shift Flowsheets (Taken 02/08/2022 1000) Area of Focus: GI//Elimination Goal This Shift: Pt will achieve normal elimination pattern lan of Yobani Trinh RN - 02/08/2022 0334 EDT Data: Assumed care at 1900. A/Ox3 and able to make needs known. Communication can be difficult at times due to moderate expressive aphasia and dysarthria. Baseline tremors, R foot drop, and facial redness. No pain reported. Action: Administered medications per MAR, repositioning as needed, Q4 stroke checks/vitals, and clustering of care occurred to promote sleep. Response: Able to sleep inbetween nursing care. Patient's stroke checks saw no new deficits and vitals remained stable. YOBANI LOUIS RN 02/08/2022 3:34 Problem: Daily Care Plan Goals Goal: Care Plan Documentation Outcome: Met This Shift Flowsheets (Taken 02/07/20222023) Area of Focus: Neuro Status Goal This Shift: Stroke checks see no new deficits Problem: Safety: Goal: Will remain free from falls Outcome: Met This Shift lan of Care - Susan Hassan RN - 02/07/2022 1822 EDT Data: HD 3 L MCA s/p thrombectomy. Hx of Parkinson's. A&Ox3. Aphasia/dysarthria. 3/3 strength all extremities. Robin steady OOB. No pain. Blanchable redness on backside. Boot for right foot drop. Action: Q4 vitals and neuro. Medicated per eMAR. Gave PRN miralax. Discontinued NGT. OOB to chair during day. Morris removed, external cath in place. Encouraged repositioning q2. Response: VSS. No neuro changes. Pt remains difficult to understand but makes needs known. Tolerating dysphagia III diet with thins well. Candy at bedside in evening. SUSAN HASSAN RN 02/07/2022 18:23 Problem: Respiratory: Goal: Ability to maintain a clear airway will improve Outcome: Met This Shift Problem: Bowel/Gastric: Goal: Ability to achieve a regular elimination pattern will improve Outcome: Not Met This Shift Problem: Daily Care Plan Goals Goal: Care Plan Documentation Flowsheets (Taken 02/07/2022 0715) Area of Focus: Neuro Status Goal This Shift: Neuro status will remain stable or improve lan of Matthias - Yobani Louis RN - 02/07/2022 0341 EDT Data: Assumed care at 1900. A/Ox3 and able to make needs known. Extreme expressive aphasia and dysarthria present making communication difficult at times. History of parkinson's therefore has baseline tremors and general weakness. Action: Administered medications per MAR, Q4 stroke checks/vitals, repositioning when needed, and clustering of care occurred to promote sleep. Response: No new neuro deficits noted, vitals remained stable. Pt hoping to get his NGT removed today. YOBANI LOUIS RN 02/07/2022 3:41 Problem: Daily Care Plan Goals Goal: Care Plan Documentation Outcome: Met This Shift Flowsheets (Taken 02/06/20222037) Area of Focus: Neuro Status Goal This Shift: Stroke checks see no new deficits Problem: Safety: Goal: Will remain free from falls Outcome: Met This Shift lan of Matthias - Haritha Taylor RN - 02/06/20222025 EDT Problem: Safety: Goal: Will remain free from falls Outcome: Met This Shift Problem: Cognitive/ Neuro: Goal: Will regain or maintain usual level of consciousness Outcome: Met This Shift Problem: Daily Care Plan Goals Goal: Care Plan Documentation Outcome: Met This Shift Flowsheets (Taken 02/06/2022 0900) Area of Focus: Neuro Status Goal This Shift: Monitor neuro status Data: Hospital day #2 for left MCA CVA s/p thrombectomy. Pt is alert and oriented x3, Hesitant speech, mild aphasia and moderate dysarthria. Pt with moderate strength throughout, no drifts. Pt reports that he uses a splint and special shoes for walking related to right ankle turned in. Pt OOB to chairvia robin steady. Pt denied pain. On dysphagia 3 diet with thin liquids. Action: Stroke neuro vital signs monitored q4 hours. Turned and repositioned q2-3hours. Response: Stroke neuro vitals signs stable throughout shift. Pt tolerated OOB to chair and tolerating dysphagia diet and thin liquids well. HARITHA TAYLOR RN 02/06/2022 20:26 lan of Care - Yobani Louis RN - 02/06/2022 0446 EDT Data: Patient transferred from MICU around 2099. L MCA infarct s/p thrombectomy. Oriented to self and place. Extreme expressive aphasia and dysarthria - making communication of needs difficult. Morris and NGT in place. History of parkinson's disease therefore pt at baseline has tremors in BUE along with a general weakness. Action: Administered medications per MAR, Q2 neuro checks/vitals, and clustering of care occurred topromote sleep. Response: Neuro checks saw no new deficits and vitals remained stable. Able to sleep in between nursing care. YOBANI LOUIS RN 02/06/2022 4:46 Problem: Daily Care Plan Goals Goal: Care Plan Documentation Outcome: Met This Shift Flowsheets (Taken 02/05/20222103) Area of Focus: Neuro Status Goal This Shift: Neuro checks see no new deficits Problem: Safety: Goal: Will remain free from falls Outcome: Met This Shift documented in this encounter Plan of Treatment Scheduled Referrals Name Type Priority Associated Order Schedule Diagnoses AMB CONS/FOLLOW Outpatient Routine/Next Occlusion of left Expecte d: UP NEUROLOGY Referral Available middle cerebral 03/13/2022 artery (Approximate), Expires: 02/10/2023 documented as of this encounter Procedures Procedure Name Priority Date/Time Associated Comments Diagnosis IMPLANT RECORD - 02/14/2022 15:00 SCANNED EDT POCT GLUCOSE, Routine 02/10/2022 8:57 Results for this INTERFACED EDT procedure are i n the results section. COVID-19 TEST [facility] Today 02/10/2022 4:10 LAB PCR EDT COVID-19 TESTING Routine 02/10/2022 4:10 Results for this EDT procedure are i n the results section. POCT GLUCOSE, Routine 02/09/2022 21:27 Results fo r this INTERFACED EDT procedure are i n the results section. POCT GLUCOSE, Routine 02/09/2022 18:28 Results fo r this INTERFACED EDT procedure are i n the results section. POCT GLUCOSE, Routine 02/09/2022 14:06 Results fo r this INTERFACED EDT procedure are i n the results section. POCT GLUCOSE, Routine 02/09/2022 10:02 Results fo r this INTERFACED EDT procedure are i n the results section. COMPLETE BLOOD COUNT Routine 02/09/2022 5:47 Resu lts for this EDT procedure are i n the results section. CREATININE Routine 02/09/2022 5:47 Results for this EDT procedure are i n the results section. ELECTROLYTES Routine 02/09/2022 5:47 Results for this EDT procedure are i n the results section. POCT GLUCOSE, Routine 02/08/2022 21:34 Results fo r this INTERFACED EDT procedure are i n the results section. POCT GLUCOSE, Routine 02/08/2022 19:01 Results fo r this INTERFACED EDT procedure are i n the results section. POCT GLUCOSE, Routine 02/08/2022 12:59 Results fo r this INTERFACED EDT procedure are i n the results section. POCT GLUCOSE, Routine 02/08/2022 9:16 Results for this INTERFACED EDT procedure are i n the results section. COMPLETE BLOOD COUNT Routine 02/08/2022 5:47 Resu lts for this EDT procedure are i n the results section. CREATININE Routine 02/08/2022 5:47 Results for this EDT procedure are i n the results section. ELECTROLYTES Routine 02/08/2022 5:47 Results for this EDT procedure are i n the results section. POCT GLUCOSE, Routine 02/07/2022 20:26 Results fo r this INTERFACED EDT procedure are i n the results section. POCT GLUCOSE, Routine 02/07/2022 18:00 Results fo r this INTERFACED EDT procedure are i n the results section. POCT GLUCOSE, Routine 02/07/2022 13:15 Results fo r this INTERFACED EDT procedure are i n the results section. POCT GLUCOSE, Routine 02/07/2022 8:39 Results for this INTERFACED EDT procedure are i n the results section. COMPLETE BLOOD COUNT Routine 02/07/2022 6:42 Resu lts for this EDT procedure are i n the results section. CREATININE Routine 02/07/2022 6:42 Results for this EDT procedure are i n the results section. ELECTROLYTES Routine 02/07/2022 6:42 Results for this EDT procedure are i n the results section. POCT GLUCOSE, Routine 02/06/2022 21:59 Results fo r this INTERFACED EDT procedure are i n the results section. POCT GLUCOSE, Routine 02/06/2022 18:57 Results fo r this INTERFACED EDT procedure are i n the results section. POCT GLUCOSE, Routine 02/06/2022 12:55 Results fo r this INTERFACED EDT procedure are i n the results section. POCT GLUCOSE, Routine 02/06/2022 9:23 Results for this INTERFACED EDT procedure are i n the results section. COMPLETE BLOOD COUNT Routine 02/06/2022 7:42 Resu lts for this EDT procedure are i n the results section. CREATININE Routine 02/06/2022 7:42 Results for this EDT procedure are i n the results section. ELECTROLYTES Routine 02/06/2022 7:42 Results for this EDT procedure are i n the results section. POCT GLUCOSE, Routine 02/05/2022 21:51 Results fo r this INTERFACED EDT procedure are i n the results section. POCT GLUCOSE, Routine 02/05/2022 17:05 Results fo r this INTERFACED EDT procedure are i n the results section. CT HEAD WO CONTRAST Routine 02/05/2022 13:39 Resu lts for this EDT procedure are i n the results section. POCT GLUCOSE, Routine 02/05/2022 12:52 Results fo r this INTERFACED EDT procedure are i n the results section. TRANSTHORACIC ECHO Routine 02/05/2022 10:00 Resul ts for this (TTE) COMPLETE EDT procedure are in the results section. POCT GLUCOSE, Routine 02/05/2022 5:25 Results for this INTERFACED EDT procedure are i n the results section. THYROID CASCADE Routine 02/05/2022 4:15 Results f or this EDT procedure are i n the results section. COMPLETE BLOOD COUNT Routine 02/05/2022 4:15 Resu lts for this EDT procedure are i n the results section. ALT Routine 02/05/2022 4:15 Results for this EDT procedure are i n the results section. AST Routine 02/05/2022 4:15 Results for this EDT procedure are i n the results section. PHOSPHORUS Routine 02/05/2022 4:15 Results for this EDT procedure are i n the results section. MAGNESIUM Routine 02/05/2022 4:15 Results for this EDT procedure are i n the results section. HEMOGLOBIN A1C Routine 02/05/2022 4:15 Results fo r this EDT procedure are i n the results section. CREATININE Routine 02/05/2022 4:15 Results for this EDT procedure are i n the results section. CALCIUM Routine 02/05/2022 4:15 Results for this EDT procedure are i n the results section. LIPID PROFILE Routine 02/05/2022 4:15 Results for this (INCLUDES CHOLESTEROL, EDT proce dure are in TRIGLYCERIDES, HDL, the resu lts LDL) section. ELECTROLYTES Routine 02/05/2022 4:15 Results for this EDT procedure are i n the results section. POCT GLUCOSE, Routine 02/04/2022 23:07 Results fo r this INTERFACED EDT procedure are i n the results section. POCT GLUCOSE, Routine 02/04/2022 20:50 Results fo r this INTERFACED EDT procedure are i n the results section. COVID-19 TEST [facility] STAT 02/04/2022 18:53 LAB PCR EDT COVID-19 TESTING STAT 02/04/2022 18:53 Results for this EDT procedure are i n the results section. POCT GLUCOSE, Routine 02/04/2022 18:15 Results fo r this INTERFACED EDT procedure are i n the results section. XR FEEDING TUBE STAT 02/04/2022 17:37 Results for this PLACEMENT EDT procedure are i n the results section. IR STROKE THROMBECTOMY STAT 02/04/2022 15:48 R esults for this EDT procedure are i n the results section. CT HEAD WO CONTRAST STAT 02/04/2022 14:45 Resu lts for this EDT procedure are i n the results section. HOLD BLUE TOP STAT 02/04/2022 14:40 Results fo r this EDT procedure are i n the results section. SCREENING GLUCOSE STAT 02/04/2022 14:40 Result s for this EDT procedure are i n the results section. PROFILE ED STROKE STAT 02/04/2022 14:40 Result s for this PANEL EDT procedure are i n the results section. TROPONIN I STAT 02/04/2022 14:40 Results for this EDT procedure are i n the results section. PTT STAT 02/04/2022 14:40 Results for this EDT procedure are i n the results section. PROTIME STAT 02/04/2022 14:40 Results for this EDT procedure are i n the results section. COMPLETE BLOOD COUNT STAT 02/04/2022 14:40 Res ults for this AND DIFFERENTIAL EDT procedure a re in the results section. TYPE AND SCREEN STAT 02/04/2022 14:40 Results for this EDT procedure are i n the results section. BUN STAT 02/04/2022 14:40 Results for this EDT procedure are i n the results section. CREATININE STAT 02/04/2022 14:40 Results for this EDT procedure are i n the results section. ELECTROLYTES STAT 02/04/2022 14:40 Results for this EDT procedure are i n the results section. POCT GLUCOSE, Routine 02/04/2022 14:34 Results fo r this INTERFACED EDT procedure are i n the results section. ED CRITICAL CARE Routine 02/04/2022 14:30 Results for this EDT procedure are i n the results section. ED CRITICAL CARE Routine 02/04/2022 14:30 Results for this EDT procedure are i n the results section. documented in this encounter Results (ABNORMAL) POCT GLUCOSE, INTERFACED (02/10/2022 8:57 EDT) Glucose, POC 182 (H) 70 - 100 [facility] mg/dL LABORATORY SERVICES HN LAB POC COMMENT Test Performed by [facility] (GLUCOSE) Nursing Services LABORATORY SERVICES Specimen Blood - Capillary blood (substance) Performing Organization Address City/State/ZIP Code Phon e Number [facility] LABORATORY [address] [place] [address] SERVICES COVID-19 TEST [facility] LAB PCR (02/10/2022 4:10 EDT) Specimen Swab - Entire nasopharynx (body structur e) Performing Organization Address [facility] Phon e Number [facility] [address] [place] [address] SERVICES COVID-19 TESTING (02/10/2022 4:10 EDT) COVID-19 rt-PCR Negative Negative [facility] Result Comment: [facility] This test has not been FDA c leared or approved. This test has been authorized by FDA under an EUA for use by authorized laboratories. This test has been authorized only for detection of nucleic acid fro SERVICES m 2019-nCoV, not for any oth er viruses or [...] and epidemiological informatio n. Performed on the [employer] Fusion instrument Performing Lab [place] [facility] Lab [facility] LABORATORY SERVICES Specimen Swab - Entire nasopharynx (body structur e) Performing Organization Address [facility] Phon e Number [facility] [address] [place] [address] SERVICES (ABNORMAL) POCT GLUCOSE, INTERFACED (02/09/2022 21:27 EDT) Glucose, POC 213 (H) 70 - 100 [facility] mg/dL LABORATORY SERVICES HN LAB POC COMMENT Test Performed by [facility] R (GLUCOSE) Nursing Services LABORATORY SERVICES Specimen Blood - Capillary blood (substance) Performing Organization Address [facility]/[place] [facility] [place] [facility] [address] [place] [address] SERVICES (ABNORMAL) POCT GLUCOSE, INTERFACED (02/09/2022 18:28 EDT) Glucose, POC 121 (H) 70 - 100 [facility] mg/dL LABORATORY SERVICES HN LAB POC COMMENT Test Performed by [facility] [employer] R (GLUCOSE) Nursing Services LABORATORY SERVICES Specimen Blood - Capillary blood (substance) Performing Organization Address City/[facility]/ZIP Code Phon e Number [facility] [address] [place] [address] SERVICES (ABNORMAL) POCT GLUCOSE, INTERFACED (02/09/2022 14:06 EDT) Glucose, POC 166 (H) 70 - 100 [facility] mg/dL LABORATORY SERVICES HN LAB POC COMMENT Test Performed by [facility] R (GLUCOSE) Nursing Services LABORATORY SERVICES Specimen Blood - Capillary blood (substance) Performing Organization Address City/[facility]/ZIP Code Phon e Number [facility] [address] [place] [address] SERVICES (ABNORMAL) POCT GLUCOSE, INTERFACED (02/09/2022 10:02 EDT) Glucose, POC 132 (H) 70 - 100 [facility] mg/dL LABORATORY SERVICES HN LAB POC COMMENT Test Performed by [facility] R (GLUCOSE) Nursing Services LABORATORY SERVICES Specimen Blood - Capillary blood (substance) Performing Organization Address City/[facility]/ZIP Code Phon e Number [facility] [address] [place] [address] SERVICES (ABNORMAL) COMPLETE BLOOD COUNT (02/09/2022 5:47 EDT) Pathologist Sig nature WBC 7.13 4.00 - 10.40 K/cmm [facility] LABORATORY SERVICES RBC 4.27 (L) 4.36 - 5.78 M/cmm [facility] LABORATORY SERVICES Hemoglobin 12.6 (L) 13.8 - 17.3 gm/dL [facility] LABORATORY SERVICES HCT 36.1 (L) 39.5 - 50.2 % [facility] LABORATORY SERVICES MCV 85 81 - 95 fl [facility] LABORATORY SERVICES MCH 29.5 27.6 - 33.0 pg [facility] LABORATORY SERVICES MCHC 34.9 32.8 - 36.4 gm/dL [facility] LABORATORY SERVICES RDW-CV 14.0 <14.2 % [facility] LABORATORY SERVICES RDW-SD 42.5 <46.0 fl [facility] LABORATORY SERVICES PLT 156 141 - 377 K/cmm [facility] LABORATORY SERVICES MPV 11.2 9.5 - 12.7 fl [facility] LABORATORY SERVICES Specimen Blood - Venous blood (substance) Performing Organization Address City/[facility]/ZIP Code Phon e Number [facility] [address] [place] [address] SERVICES CREATININE (02/09/2022 5:47 EDT) Pathologist Sig nature Creatinine 0.75 0.66 - 1.25 mg/dL [facility] LABORATORY SERVICES eGFR 100 >60 mL/min/1.73m2 [facility] LAB[facility] SERVICES Specimen Blood - Venous blood (substance) Performing Organization Address City/[facility]/ZIP Code Phon e Number [facility] [address] [place] [address] SERVICES ELECTROLYTES (02/09/2022 5:47 EDT) Pathologist Sig nature Sodium 140 136 - 145 mmol/L [facility] [facility] Potassium 3.9 3.5 - 5.0 mmol/L [facility] Chloride 108 96 - 110 mmol/L [facility] LABORA TORY SERVICES CO2 Total 24 22 - 32 mmol/L [facility] LABORAT ORY SERVICES Anion Gap 8 5 - 14 [facility] LABORATOR Y SERVICES Specimen Blood - Venous blood (substance) Performing Organization Address [facility]/ZIP Code Phon e Number [facility] [address] [place] [address] SERVICES (ABNORMAL) POCT GLUCOSE, INTERFACED (02/08/2022 21:34 EDT) Glucose, POC 186 (H) 70 - 100 [facility] mg/dL LABORATORY SERVICES HN LAB POC COMMENT Test Performed by [facility] [employer] R (GLUCOSE) Nursing Services LABORATORY SERVICES Specimen Blood - Capillary blood (substance) Performing Organization Address City/[facility]/ZIP Code Phon e Number [facility] [address] [place] [address] SERVICES (ABNORMAL) POCT GLUCOSE, INTERFACED (02/08/2022 19:01 EDT) Glucose, POC 178 (H) 70 - 100 [facility] mg/dL LABORATORY SERVICES HN LAB POC COMMENT Test Performed by [facility] R (GLUCOSE) Nursing Services LABORATORY SERVICES Specimen Blood - Capillary blood (substance) Performing Organization Address City/[facility]/ZIP Code Phon e Number [facility] [address] [place] [address] SERVICES (ABNORMAL) POCT GLUCOSE, INTERFACED (02/08/2022 12:59 EDT) Glucose, POC 160 (H) 70 - 100 [facility] mg/dL LABORATORY SERVICES HN LAB POC COMMENT Test Per[facility] (GLUCOSE) Nursing Services LABORATORY SERVICES Specimen Blood - Capillary blood (substance) Performing Organization Address [facility] Phon e Number [facility]ORATORY [address] [place] [address] SERVICES (ABNORMAL) POCT GLUCOSE, INTERFACED (02/08/2022 9:16 EDT) Glucose, POC 133 (H) 70 - 100 [facility] mg/dL LABORATORY SERVICES HN LAB POC COMMENT Test Performed by [facility] R (GLUCOSE) Nursing Services LABORATORY SERVICES Specimen Blood - Capillary blood (substance) Performing Organization Address [facility] Phon e Number [facility]OR[facility] [address] [place] [address] SERVICES (ABNORMAL) COMPLETE BLOOD COUNT (02/08/2022 5:47 EDT) Pathologist Sig nature WBC 8.69 4.00 - 10.40 K/cmm [facility] LABORATORY SERVICES RBC 4.34 (L) 4.36 - 5.78 M/cmm [facility] LABORATORY SERVICES Hemoglobin 12.7 (L) 13.8 - 17.3 gm/dL [facility] LABORATORY SERVICES HCT 37.3 (L) 39.5 - 50.2 % [facility] LABORATORY SERVICES MCV 86 81 - 95 fl [facility] LABORATORY SERVICES MCH 29.3 27.6 - 33.0 pg [facility] LABORATORY SERVICES MCHC 34.0 32.8 - 36.4 gm/dL [facility] LABORATORY SERVICES RDW-CV 13.8 <14.2 % [facility] LABORATORY SERVICES RDW-SD 42.8 <46.0 fl [facility] LABORATORY SERVICES PLT 151 141 - 377 K/cmm [facility] LABORATORY SERVICES MPV 10.9 9.5 - 12.7 fl [facility] LABORATORY SERVICES Specimen Blood - Venous blood (substance) Performing Organization Address [facility] Phon e Number [facility]ORATORY [address] [place] [address] SERVICES CREATININE (02/08/2022 5:47 EDT) Pathologist Sig nature Creatinine 0.94 0.66 - 1.25 mg/dL [facility] LABORATORY SERVICES eGFR 89 >60 mL/min/1.73m2 [facility] LABORATORY SERVICES Specimen Blood - Venous blood (substance) Performing Organization Address City/[facility]/ZIP Code Phon e Number [facility] [address] [place] [address] SERVICES ELECTROLYTES (02/08/2022 5:47 EDT) Pathologist Sig nature Sodium 140 136 - 145 mmol/L [facility] LABOR ATORY SERVICES Potassium 3.9 3.5 - 5.0 mmol/L [facility] LABOR ATORY SERVICES Chloride 103 96 - 110 mmol/L [facility] LABORA TORY SERVICES CO2 Total 29 22 - 32 mmol/L [facility] LABORAT ORY SERVICES Anion Gap 8 5 - 14 [facility] LABORATOR Y SERVICES Specimen Blood - Venous blood (substance) Performing Organization Address [facility]/ZIP Code Phon e Number [facility]OR[facility]ORY [address] [place] [address] SERVICES (ABNORMAL) POCT GLUCOSE, INTERFACED (02/07/2022 20:26 EDT) Glucose, POC 134 (H) 70 - 100 [facility] mg/dL LABORATORY SERVICES HN LAB POC COMMENT Test Performed by [facility] [employer] R (GLUCOSE) Nursing Services LABORATORY SERVICES Specimen Blood - Capillary blood (substance) Performing Organization Address City/[facility]/ZIP Code Phon e Number [facility]OR[facility]ORY [address] [place] [address] SERVICES (ABNORMAL) POCT GLUCOSE, INTERFACED (02/07/2022 18:00 EDT) Glucose, POC 145 (H) 70 - 100 [facility] mg/dL LABORATORY SERVICES HN LAB POC COMMENT Test Performed by [facility] [employer] R (GLUCOSE) Nursing Services LABORATORY SERVICES Specimen Blood - Capillary blood (substance) Performing Organization Address City/[facility]/ZIP Code Phon e Number [facility] [address] [place] [address] SERVICES (ABNORMAL) POCT GLUCOSE, INTERFACED (02/07/2022 13:15 EDT) Glucose, POC 129 (H) 70 - 100 [facility] mg/dL LABORATORY SERVICES HN LAB POC COMMENT Test Performed by [facility] [employer] R (GLUCOSE) Nursing Services LABORATORY SERVICES Specimen Blood - Capillary blood (substance) Performing Organization Address City/[facility] Code Phon e Number [facility]OR[facility]ORY [address] [place] [address] SERVICES (ABNORMAL) POCT GLUCOSE, INTERFACED (02/07/2022 8:39 EDT) Glucose, POC 158 (H) 70 - 100 [facility] mg/dL LABORATORY SERVICES HN LAB POC COMMENT Test Performed by [facility] (GLUCOSE) Nursing Services LABORATORY SERVICES Specimen Blood - Capillary blood (substance) Performing Organization Address [facility] Phon e Number [facility] LABOR[facility]ORY [address] [place] [address] SERVICES (ABNORMAL) COMPLETE BLOOD COUNT (02/07/2022 6:42 EDT) Pathologist Sig nature WBC 7.07 4.00 - 10.40 K/cmm [facility] LABORATORY SERVICES RBC 4.37 4.36 - 5.78 M/cmm [facility] LABORATORY SERVICES Hemoglobin 12.6 (L) 13.8 - 17.3 gm/dL [facility] LABORATORY SERVICES HCT 36.9 (L) 39.5 - 50.2 % [facility] LABORATORY SERVICES MCV 84 81 - 95 fl [facility] LABORATORY SERVICES MCH 28.8 27.6 - 33.0 pg [facility] LABORATORY SERVICES MCHC 34.1 32.8 - 36.4 gm/dL [facility] LABORATORY SERVICES RDW-CV 13.8 <14.2 % [facility] LABORATORY SERVICES RDW-SD 42.5 <46.0 fl [facility] LABORATORY SERVICES PLT 141 141 - 377 K/cmm [facility] LABORATORY SERVICES MPV 11.5 9.5 - 12.7 fl [facility] LABORATORY SERVICES Specimen Blood - Venous blood (substance) Performing Organization Address City/[facility] Code Phon e Number [facility]OR[facility]ORY [address] [place] [address] SERVICES CREATININE (02/07/2022 6:42 EDT) Pathologist Sig nature Creatinine 0.83 0.66 - 1.25 mg/dL [facility] LABORATORY SERVICES eGFR 97 >60 mL/min/1.73m2 [facility] LABORATORY SERVICES Specimen Blood - Venous blood (substance) Performing Organization Address City/[facility] Code Phon e Number [facility] [address] [place] [address] SERVICES ELECTROLYTES (02/07/2022 6:42 EDT) Pathologist Sig nature Sodium 141 136 - 145 mmol/L [facility] LABOR ATORY SERVICES Potassium 3.9 3.5 - 5.0 mmol/L [facility] LABOR ATORY SERVICES Chloride 103 96 - 110 mmol/L [facility] LABORA TORY SERVICES CO2 Total 29 22 - 32 mmol/L [facility] LABORAT ORY SERVICES Anion Gap 9 5 - 14 [facility] LABORATOR Y SERVICES Specimen Blood - Venous blood (substance) Performing Organization Address City/[facility]/ZIP Code Phon e Number [facility] [address] [place] [address] SERVICES (ABNORMAL) POCT GLUCOSE, INTERFACED (02/06/2022 21:59 EDT) Glucose, POC 156 (H) 70 - 100 [facility] mg/dL LABORATORY SERVICES HN LAB POC COMMENT Test Performed by [facility] R (GLUCOSE) Nursing Services LABORATORY SERVICES Specimen Blood - Capillary blood (substance) Performing Organization Address City/[facility]/ZIP Code Phon e Number [facility]OR[facility]ORY [address] [place] [address] SERVICES (ABNORMAL) POCT GLUCOSE, INTERFACED (02/06/2022 18:57 EDT) Glucose, POC 135 (H) 70 - 100 [facility] mg/dL LABORATORY SERVICES HN LAB POC COMMENT Test Performed by [facility] [employer] R (GLUCOSE) Nursing Services LABORATORY SERVICES Specimen Blood - Capillary blood (substance) Performing Organization Address City/[facility]/ZIP Code Phon e Number [facility] [address] [place] [address] SERVICES (ABNORMAL) POCT GLUCOSE, INTERFACED (02/06/2022 12:55 EDT) Glucose, POC 127 (H) 70 - 100 [facility] mg/dL LABORATORY SERVICES HN LAB POC COMMENT Test [facility] (GLUCOSE) Nursing Services LABORATORY SERVICES Specimen Blood - Capillary blood (substance) Performing Organization Address City/[facility]/ZIP Code Phon e Number [facility] [address] [place] [address] SERVICES (ABNORMAL) POCT GLUCOSE, INTERFACED (02/06/2022 9:23 EDT) Glucose, POC 131 (H) 70 - 100 [facility] mg/dL LABORATORY SERVICES HN LAB POC COMMENT Test Performed by [facility] NEFTALY Da Silva (GLUCOSE) Nursing Services LABORATORY SERVICES Specimen Blood - Capillary blood (substance) Performing Organization Address [facility]/ZIP Code Phon e Number [facility] [address] [place] [address] SERVICES (ABNORMAL) COMPLETE BLOOD COUNT (02/06/2022 7:42 EDT) Pathologist Sig nature WBC 6.58 4.00 - 10.40 K/cmm [facility] LABORATORY SERVICES RBC 4.13 (L) 4.36 - 5.78 M/cmm [facility] LABORATORY SERVICES Hemoglobin 11.9 (L) 13.8 - 17.3 gm/dL [facility] LABORATORY SERVICES HCT 35.0 (L) 39.5 - 50.2 % [facility] LABORATORY SERVICES MCV 85 81 - 95 fl [facility] LABORATORY SERVICES MCH 28.8 27.6 - 33.0 pg [facility] LABORATORY SERVICES MCHC 34.0 32.8 - 36.4 gm/dL [facility] LABORATORY SERVICES RDW-CV 13.8 <14.2 % [facility] LABORATORY SERVICES RDW-SD 42.3 <46.0 fl [facility] LABORATORY SERVICES PLT 133 (L) 141 - 377 K/cmm [facility] LABORATORY SERVICES MPV 11.5 9.5 - 12.7 fl [facility] LABORATORY SERVICES Specimen Blood - Venous blood (substance) Performing Organization Address City/[facility]/ZIP Code Phon e Number [facility] [address] [place] [address] SERVICES CREATININE (02/06/2022 7:42 EDT) Pathologist Sig nature Creatinine 0.78 0.66 - 1.25 mg/dL [facility] LABORATORY SERVICES eGFR 98 >60 mL/min/1.73m2 [facility] LABORATORY SERVICES Specimen Blood - Venous blood (substance) Performing Organization Address City/State/ZIP Code Phon e Number [facility] LABORATORY [address] [place] [phone] SERVICES ELECTROLYTES (02/06/2022 7:42 EDT) Pathologist Sig nature Sodium 140 136 - 145 mmol/L [facility] LABOR ATORY SERVICES Potassium 3.7 3.5 - 5.0 mmol/L [facility] LABOR ATORY SERVICES Chloride 106 96 - 110 mmol/L [facility] LABORA TORY SERVICES CO2 Total 28 22 - 32 mmol/L [facility] LABORAT ORY SERVICES Anion Gap 6 5 - 14 [facility] LABORATOR Y SERVICES Specimen Blood - Venous blood (substance) Performing Organization Address City/[facility]/ZIP Code Phon e Number [facility] [address] [place] [address] SERVICES (ABNORMAL) POCT GLUCOSE, INTERFACED (02/05/2022 21:51 EDT) Glucose, POC 150 (H) 70 - 100 [facility] mg/dL LABORATORY SERVICES HN LAB POC COMMENT Test Performed by [facility] R (GLUCOSE) Nursing Services LABORATORY SERVICES Specimen Blood - Capillary blood (substance) Performing Organization Address [facility]/ZIP Code Phon e Number [facility] [address] [place] [address] SERVICES (ABNORMAL) POCT GLUCOSE, INTERFACED (02/05/2022 17:05 EDT) Glucose, POC 122 (H) 70 - 100 [facility] mg/dL LABORATORY SERVICES HN LAB POC COMMENT Test Performed by [facility] [employer] R (GLUCOSE) Nursing Services LABORATORY SERVICES Specimen Blood - Capillary blood (substance) Performing Organization Address City/[facility]/ZIP Code Phon e Number [facility] [address] [place] [address] HEAD WO CONTRAST (02/05/2022 13:39 EDT) Anatomical Region Laterality Modality Head Computed Tomography Specimen Impressions [facility] - 02/05/2022 14:19 EDT Redemonstrated evolving left MCA territory infarcts without associated hemorrhage. I have personally reviewed the images an d the above interpretation and agree with the findings. Narrative [facility] - 02/05/2022 14:19 [...] CT, compatible with evolving infarcts. No ac estella parenchymal hemorrhage. No mass or midline shift. [...] agree with the findings. Performing Organization Address City/State/[facility] Code Phon e Number [facility] (ABNORMAL) POCT GLUCOSE, INTERFACED (02/05/2022 12:52 EDT) Glucose, POC 168 (H) 70 - 100 [facility] mg/dL LABORATORY SERVICES HN LAB POC COMMENT Test Performed by [facility] NEFTALY Da Silva (GLUCOSE) Nursing Services LABORATORY SERVICES Specimen Blood - Capillary blood (substance) Performing Organization Address City/State/ZIP Code Phon e Number [facility] [address] [place] [address] SERVICES TRANSTHORACIC ECHO (TTE) COMPLETE W/DOPPLER W/CF W/ [...] OF C ARE 1-p A4C Specimen Narrative [facility] POINT OF CARE - 02/05/2022 10:31 E [...] Organization Address City/State/ZIP Code Phon e Number [facility] POINT OF CARE (ABNORMAL) POCT GLUCOSE, INTERFACED (02/05/2022 5:25 EDT) Glucose, POC 139 (H) 70 - 100 [facility] mg/dL LABORATORY SERVICES HN LAB POC COMMENT Test Performed by [facility] (GLUCOSE) Nursing Services LABORATORY SERVICES Specimen Blood - Capillary blood (substance) Performing Organization Address City/State/ZIP Code Phon e Number [facility] [address] [place] [address] SERVICES (ABNORMAL) COMPLETE BLOOD COUNT (02/05/2022 4:15 EDT) Pathologist Sig angélica WBC 8.12 4.00 - 10.40 K/cmm [facility] LABORATORY SERVICES RBC 3.67 (L) 4.36 - 5.78 M/cmm [facility] LABORATORY SERVICES Hemoglobin 10.7 (L) 13.8 - 17.3 gm/dL [facility] LABORATORY SERVICES HCT 31.1 (L) 39.5 - 50.2 % [facility] LABORATORY SERVICES MCV 85 81 - 95 fl [facility] LABORATORY SERVICES MCH 29.2 27.6 - 33.0 pg [facility] LABORATORY SERVICES MCHC 34.4 32.8 - 36.4 gm/dL [facility] LABORATORY SERVICES RDW-CV 13.7 <14.2 % [facility] LABORATORY SERVICES RDW-SD 42.6 <46.0 fl [facility] LABORATORY SERVICES PLT 137 (L) 141 - 377 K/cmm [facility] LABORATORY SERVICES MPV 11.4 9.5 - 12.7 fl [facility] LABORATORY SERVICES Specimen Blood - Venous blood (substance) Performing Organization Address City/[facility]/ZIP Code Phon e Number [facility] [address] [place] [address] SERVICES CREATININE (02/05/2022 4:15 EDT) Pathologist Sig nature Creatinine 0.74 0.66 - 1.25 mg/dL [facility] LABORATORY SERVICES eGFR 100 >60 mL/min/1.73m2 [facility] LABORATORY SERVICES Specimen Blood - Venous blood (substance) Performing Organization Address City/[facility]/ZIP Code Phon e Number [facility] [address] [place] [address] SERVICES ELECTROLYTES (02/05/2022 4:15 EDT) Pathologist Sig nature Sodium 138 136 - 145 mmol/L [facility] LABOR ATORY SERVICES Potassium 3.7 3.5 - 5.0 mmol/L [facility] LABOR ATORY SERVICES Chloride 104 96 - 110 mmol/L [facility] LABORA TORY SERVICES CO2 Total 27 22 - 32 mmol/L [facility] LABORAT ORY SERVICES Anion Gap 7 5 - 14 [facility] LABORATOR Y SERVICES Specimen Blood - Venous blood (substance) Performing Organization Address City/[facility]/ZIP Code Phon e Number [facility] [address] [place] [address] SERVICES THYROID CASCADE (02/05/2022 4:15 EDT) Pathologist Sig nature TSH 4.22 0.47 - 4.68 mIU/L [facility] LABO RATORY SERVICES Specimen Blood - Venous blood (substance) Narrative [facility] LABORATORY SERVICES - 02/05/2022 5:38 EDT NOTE: The results of this assay can be falsely lowered due to the consumption of Biotin. Performing Organization Address [facility] Phon e Number [facility] [address] [place] [address] SERVICES (ABNORMAL) LIPID PROFILE (INCLUDES CHOLESTEROL, TRIGLYCERIDES, HDL, LDL) (02/05/2022 4:15 EDT) Cholesterol 117Comment: Note <200 mg/dL [facility] LABORATORY goals will differ SERVICES between patients based on cardiac risk factors and current medical therapy. HDL 29 (L)Comment: >=40 mg/dL [facility] Note that [facility]ORAT[facility] therapeutic goals SERVICES will differ between patients based on cardiac risk factors and current medical therapy. LDL, Calculated 48Comment: Note <160 mg/dL [facility] LABORATORY goals will differ SERVICES between patients based on cardiac risk factors and current medical therapy. Triglyceride 201 (H)Comment: <=150 mg/dL [facility] Note that [facility] therapeutic goals SERVICES will differ between patients based on cardiac risk factors and current medical therapy. Chol/HDL Ratio 4.0Comment: No See Note [facility] LABORATORY has been SERVICES established for CHOL/HDL ratio. Non HDL Cholesterol 88Comment: Note <160 mg/dL [facility] LABORATORY goals will differ SERVICES between patients based on cardiac risk factors and current medical therapy. Specimen Blood - Venous blood (substance) Performing Organization Address [facility] Phon e Number [facility]ORY [address] [place] [address] SERVICES (ABNORMAL) HEMOGLOBIN A1C (02/05/2022 4:15 EDT) Hemoglobin A1c 6.8 (H) <5.7 % [facility] Comment: LABORATORY SERVICES Glycemic Status References: Normal: ??<5.7% Pre-Diabetes: ??5.7% - 6.4% Diagnostic of Diabetes: ??> or = 6.5% (if confirmed) Est Avg Glucose 148Comment: The eAG mg/dL [facility] represents the A1c LABORATORY SERVICES result expressed as average glucose in mg/dL. Specimen Blood - Venous blood (substance) Performing Organization Address [facility]/ZIP Code Phon e Number [facility] [address] [place] [address] SERVICES ALT (02/05/2022 4:15 EDT) Pathologist Sig nature ALT 15 <50 U/L [facility] LABORATOR Y SERVICES Specimen Blood - Venous blood (substance) Performing Organization Address [facility] Phon e Number [facility] [address] [place] [address] SERVICES AST (02/05/2022 4:15 EDT) Pathologist Sig nature AST 22 15 - 46 U/L [facility] LABORATOR Y SERVICES Specimen Blood - Venous blood (substance) Performing Organization Address [facility] Phon e Number [facility] [address] [place] [address] SERVICES PHOSPHORUS (02/05/2022 4:15 EDT) Pathologist Sig nature Phosphorus 3.6 2.5 - 4.5 mg/dL [facility] LABORA TOR SERVICES Specimen Blood - Venous blood (substance) Performing Organization Address [facility] Phon e Number [facility] LABORATORY [address] [place] [phone] SERVICES (ABNORMAL) MAGNESIUM (02/05/2022 4:15 EDT) Pathologist Sig nature Magnesium 1.5 (L) 1.7 - 2.8 mg/dL [facility] LABORA TORY SERVICES Specimen Blood - Venous blood (substance) Performing Organization Address [facility] Phon e Number [facility] [address] [place] [address] SERVICES (ABNORMAL) CALCIUM (02/05/2022 4:15 EDT) Pathologist Sig nature Calcium 8.3 (L) 8.5 - 10.5 mg/dL [facility] LABORATORY SERVICES Specimen Blood - Venous blood (substance) Performing Organization Address [facility] Phon e Number [facility] [address] [place] [address] SERVICES (ABNORMAL) POCT GLUCOSE, INTERFACED (02/04/2022 23:07 EDT) Glucose, POC 150 (H) 70 - 100 [facility] mg/dL LABORATORY SERVICES HN LAB POC COMMENT Test [facility] ([facility] Nursing Services LABORATORY SERVICES Specimen Blood - Capillary blood (substance) Performing Organization Address [facility] Phon e Number [facility] [address] [place] [address] SERVICES (ABNORMAL) POCT GLUCOSE, INTERFACED (02/04/2022 20:50 EDT) Glucose, POC 136 (H) 70 - 100 [facility] mg/dL LABORATORY SERVICES HN LAB POC COMMENT Test Performed by [facility] R (GLUCOSE) Nursing Services LABORATORY SERVICES Specimen Blood - Capillary blood (substance) Performing Organization Address [facility] Phon e Number [facility]OR[facility]ORY [address] [place] [address] SERVICES COVID-19 TEST [facility] LAB PCR (02/04/2022 18:53 EDT) Specimen Swab - Anterior nares Performing Organization Address [facility] [facility] Phon e Number [facility] [address] [place] [address] SERVICES COVID-19 TESTING (02/04/2022 18:53 EDT) Pathologist [facility] COVID-19 rt-PCR Negative Negative [facility] Result Comment: [facility]ORY This test has not been FDA c leared or approved. This test has been authorized by FDA under an EUA for use by authorized laboratories. This test has been authorized only for detection of nucleic acid fro SERVICES m 2019-nCoV, not for any oth er viruses or [...] and epidemiological informatio n. Performed on the EasyProveher Fusion instrument Performing Lab [place] [facility] SERVICES Specimen Swab - Anterior nares Performing Organization Address [facility] Phon e Number [facility] [address] [place] [address] SERVICES (ABNORMAL) POCT GLUCOSE, INTERFACED (02/04/2022 18:15 EDT) Glucose, POC 131 (H) 70 - 100 [facility] mg/dL LABORATORY SERVICES HN LAB POC COMMENT Test Performed by [facility] Da Silva (GLUCOSE) Nursing Services LABORATORY SERVICES Specimen Blood - Capillary blood (substance) Performing Organization Address City/State/ZIP Code Phon e Number [facility] [address] [place] [address] SERVICES XR FEEDING TUBE PLACEMENT (02/04/2022 17:37 EDT) Anatomical Region Laterality Modality Abdomen Computed Radiography Specimen Impressions [facility] - 02/05/2022 8:35 EDT Findings/ Impression: The orogastric feeding tube terminates i n the fourth segment of the duodenum, near the ligament of Treitz. This is not a dedicated view of the ches t nor abdomen. Obtain dedicated views if necessary. I have personally reviewed the images an d the above interpretation and agree with the findings. Narrative [facility] - 02/05/2022 8:35 EDT XR FEEDING TUBE [...] Organization Address City/State/ZIP Code Phon e Number [facility] IR STROKE THROMBECTOMY (02/04/2022 15:48 EDT) Anatomical Region Laterality Modality Head N/A X-Ray Angiography Specimen Impressions [facility] - 02/08/2022 13:24 EDT The patient has undergone mechanical thrombectomy using a 4 x 40 Solitaire stent and React 68 aspirat ion catheter for treatment of an acute o cclusion of the distal M1 segment of the left middle cerebral artery. Time of femoral puncture: 1507 Time of first-pass with the stent retrie lupe: 1517 Time of complete confucianism of flow in the middle cerebral artery: 1517 TICI Classification of final angiogram: TICI 3 I have personally reviewed the images an d the above interpretation and agree with the findings. Narrative [facility] - 02/08/2022 13:24 EDT Preoperative diagnosis: Distal left M1 occlusion Postoperative Diagnosis: Same Surgeons: Dr. Fidel Frausto Drum Drier:Dr. Yemi Wren Anesthesia: General anesthesia Interventional procedure: [...] penelope in the supine position upon the fredy ography table. Prior to the procedure, a [...] over an Amplatz wire for an 8 Montenegrin pressure transducing sheath A JirafeumbBiosynthetic Technologiess catheter was advanced over Glidewire through an 8 Montenegrin Ballast guide catheter into the left internal [...] Postoperative Diagnosis: Same Surgeons: Dr. Fidel Frausto Drum Drier:Dr. Yemi Wren Anesthesia: General anesthesia Interventional procedure: [...] over an Amplatz wire for an 8 Montenegrin pressure transducing sheath A Penumbra Tran catheter was advanced over Glidewire through an 8 Montenegrin Ballast guide catheter into the left internal [...] stent retrie lupe: 1517 Time of complete confucianism of flow in the middle cerebral artery: 1517 TICI Classification of final angiogram: TICI 3 I have personally reviewed the images an d the above interpretation and agree with the findings. Performing Organization Address City/State/ZIP Code Phon e Number [facility] CT HEAD WO CONTRAST (02/04/2022 14:45 EDT) Anatomical Region Laterality Modality Head Computed Tomography Specimen Impressions [facility] - 02/04/2022 16:28 EDT 1. 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 2. ??Bithalamic frontal approach electro nakia. I have personally reviewed the images an d the above interpretation and agree with the findings. Narrative [facility] - 02/04/2022 16:28 EDT EXAM: CT HEAD [...] Organization Address City/State/ZIP Code Phon e Number [facility] HOLD BLUE TOP (02/04/2022 14:40 EDT) Pathologist Sig nature Hold Hold [facility] Y SERVICES Specimen Blood - Venous blood (substance) Performing Organization Address City/State/ZIP Code Phon e Number [facility] [address] [place] [address] SERVICES TROPONIN I (02/04/2022 14:40 EDT) [facility] Troponin I (ng/mL) <0.034 <0.034 ng/mL [facility] SERVICES Specimen Blood - Venous blood (substance) Narrative [facility] SERVICES - 02/04/2022 15:15 EDT The results of this assay can be falsely lowered due to the consumption of Biotin. Performing Organization Address City/State/ZIP Code Phon e Number [facility] [address] [place] [address] SERVICES PTT (02/04/2022 14:40 EDT) [facility] PTT 32 26 - 37 secs [facility] SERVICES Specimen Blood - Venous blood (substance) Performing Organization Address [facility]/ZIP Code Phon e Number [facility] [address] [place] [address] SERVICES PROTIME (02/04/2022 14:40 EDT) [facility] I.N.R. 1.1 0.9 - 1.1 Ratio [facility] T[facility] SERVICES Pro Time 12.6 10.4 - 12.6 secs [facility] AT[facility] SERVICES Specimen Blood - Venous blood (substance) Narrative [facility] SERVICES - 02/04/2022 15:00 EDT Moderate Intensity Coumadin INR = 2.0-3.0 Adjustments in anticoagulant therapy dos e should be based on the INR and NOT on the Protime. Performing Organization Address City/[facility]/ZIP Code Phon e Number [facility] [address] [place] [address] SERVICES CREATININE (02/04/2022 14:40 EDT) [facility] Creatinine 0.68 0.66 - 1.25 mg/dL [facility] SERVICES eGFR 103 >60 mL/min/1.73m2 [facility] SERVICES Specimen Blood - Venous blood (substance) Performing Organization Address City/[facility]/ZIP Code Phon e Number [facility] [address] [place] [address] SERVICES BUN (02/04/2022 14:40 EDT) Pathologist Sig nature BUN 12 10 - 26 mg/dL [facility] RY SERVICES Specimen Blood - Venous blood (substance) Performing Organization Address City/[facility]/ZIP Code Phon e Number [facility] [address] [place] [phone] SERVICES ELECTROLYTES (02/04/2022 14:40 EDT) Pathologist Sig nature Sodium 141 136 - 145 mmol/L [facility] AT[facility] SERVICES Potassium 3.9 3.5 - 5.0 mmol/L [facility] AT[facility] SERVICES Chloride 109 96 - 110 mmol/L [facility] T[facility] SERVICES CO2 Total 22 22 - 32 mmol/L [facility] ORY SERVICES Anion Gap 10 5 - 14 [facility] Y SERVICES Specimen Blood - Venous blood (substance) Performing Organization Address City/[facility]/ZIP Code Phon e Number [facility] [address] [place] [address] SERVICES (ABNORMAL) COMPLETE BLOOD COUNT AND DIFFERENTIAL (02/04/2022 14:40 EDT) WBC 8.40 4.00 - 10.40 [facility] K/m LABORATORY SERVICES RBC 4.19 (L) 4.36 - 5.78 [facility] M/m LABORATORY SERVICES Hemoglobin 12.3 (L) 13.8 - 17.3 [facility] gm/dL LABORATORY SERVICES HCT 35.5 (L) 39.5 - 50.2 % [facility] SERVICES MCV 85 81 - 95 fl [facility] SERVICES MCH 29.4 27.6 - 33.0 pg [facility] SERVICES MCHC 34.6 32.8 - 36.4 [facility] gm/dL LABORATORY SERVICES RDW-CV 13.8 <14.2 % [facility] SERVICES RDW-SD 42.5 <46.0 fl [facility] SERVICES PLT 143 141 - 377 K/m [facility] SERVICES MPV 11.2 9.5 - 12.7 fl [facility] SERVICES Neutrophils 64.0 % [facility] SERVICES Lymphocytes 28.0 % [facility] SERVICES Monocytes 6.5 % [facility] SERVICES Eosinophils 0.7 % [facility] SERVICES Basophils 0.4 % [facility] LABORAT[facility] SERVICES Immature Grans 0.4 % [facility] SERVICES Absolute Neutrophils 5.38 2.20 - 8.85 [facility] LABORATORY SERVICES Absolute Lymphocytes 2.35 1.09 - 3.30 [facility] LABORATORY SERVICES Absolute Monocytes 0.55 0.10 - 0.80 [facility] LABORATORY SERVICES Absolute Eosinophils 0.06 0.03 - 0.61 [facility] LABORATORY SERVICES Absolute Basophils 0.03 0.01 - 0.11 [facility] LABORATORY SERVICES Absolute Immature 0.03 0.00 - 0.06 [facility] LABORATORY SERVICES Type of Differential: Auto [facility] LABORAT[facility] SERVICES Specimen Blood - Venous blood (substance) Performing Organization Address City/[facility]/ZIP Code Phon e Number [facility] [address] [place] [address] SERVICES (ABNORMAL) SCREENING GLUCOSE (02/04/2022 14:40 EDT) Pathologist Sig nature Glucose, Screening 162 (H) 70 - 100 mg/dL [facility] SERVICES Specimen Blood - Venous blood (substance) Performing Organization Address City/[facility]/[place] [facility] [place] [facility] [address] [place] [address] SERVICES TYPE AND SCREEN (02/04/2022 14:40 EDT) ABO A [facility] BLOOD BANK Rh Factor Positive [facility] B[facility]OD B[facility] Antibody Screen Negative [facility] B[facility]OD BANK Specimen Expires: 02/07/2022 @ 23:59 [facility] BLOOD BANK Specimen Blood - Venous blood (substance) Performing Organization Address City/[facility]/ZIP Code Phon e Number [facility] BLOOD BANK [address] [place] [address] (ABNORMAL) POCT GLUCOSE, INTERFACED (02/04/2022 14:34 EDT) Pathologist [place] Glucose, POC 179 (H) 70 - 100 [facility] mg/dL LABORATORY SERVICES HN LAB POC COMMENT Test Performed by [facility] Da Silva (GLUCOSE) Nursing Services LABORATORY SERVICES Specimen Blood - Capillary blood (substance) Performing Organization Address City/[facility]/ZIP Code Phon e Number [facility] [address] [place] [address] SERVICES SC CRITICAL CARE, E/M 30-74 MINUTES, HC - CRITICAL CARE ILL/INJURED PATIENT INIT 30-74 MIN (02/04/2022 14:30 EDT) Narrative [facility] EKG - 02/04/2022 14:3 0 EDT [...] life-threatening deterioration of the fo llowing conditions: ??[employer] failure or compromise and dehydration ??Critical [...] review of old charts Performing Organization Address City/[facility]/ZIP Code Phon e Number [facility] EKG documented in this encounter Visit Diagnoses Diagnosis Arterial ischemic stroke, MCA (middle ce rebral artery), left, acute (HCC-CMS) ([facility]) - Primary Unspecified cerebral artery occlusion wi th cerebral infarction Stroke (HCC-CMS) ([facility]) Unspecified cerebral artery occlusion wi th cerebral infarction Aphasia Dysarthria Occlusion of left middle cerebral artery Acute CVA (cerebrovascular accident) (HC C-CMS) ([facility]) documented in this encounter Admitting Diagnoses Diagnosis Acute CVA (cerebrovascular accident) (HC C-CMS) ([facility]) documented in this encounter Administered Medications Inactive Administered Medications - up to 3 most recent administrations Medication Order MAR Action Action Date Dose Rate Site acetaminophen (TYLENOL) solution unit do se cup 650 mg 650 mg, oral, EVERY 6 HOURS PRN, Startin g on 02/04/22 at 1507, Until 02/10/22 at 0948, Pain, Fever, Routine acetaminophen (TYLENOL) suppository 650 mg 650 mg, rectal, EVERY 6 HOURS PRN, Starting on Sun 01/11 01/31 at 1507, Until 02/10/22 at 0948, Fever, Pain, Routine acetaminophen (TYLENOL) tablet 650 mg Given 02/05/2022 6:55 EDT 650 mg 650 mg, oral, EVERY 6 HOURS PRN, Starting on 02/04/22 at 1507, Until 02/10/22 at 0948, Pain, Fever, Routine Given 02/04/2022 20:25 EDT 650 mg aspirin chewable tablet 81 mg Given 02/10/2022 8:07 EDT 81 mg 81 mg, oral, DAILY, First dose on 02/05/22 at 0900, Until Discontinued, Routine Given 02/09/2022 10:03 EDT 81 mg Given 02/08/2022 10:13 EDT 81 mg atorvastatin (LIPITOR) tablet 40 mg Given 02/10/2022 8:07 EDT 40 mg 40 mg, oral, DAILY, First dose on 02/04/22 at 1515, Until Discontinued, Routine Given 02/09/2022 10:03 EDT 40 mg Given 02/08/2022 10:13 EDT 40 mg bisacodyL (DULCOLAX) EC tablet 10 mg 10 mg, oral, DAILY PRN, Starting on 02/04/22 at 1507, Until 02/10/22 at 0948, Constipation, Routine bisacodyL (DULCOLAX) suppository 10 mg 10 mg, rectal, DAILY PRN, Starting on 02/04/22 at 1 507, Until 02/10/22 at 0948, Constipation, Routine bisacodyL (DULCOLAX) suppository 10 mg Given 02/09/2022 10:03 EDT 10 mg 10 mg, rectal, Once, 1 dose, On Sat02/09/22 at 0915, Routine calcium carbonate (TUMS) 200 mg calcium (500 Given 4:09 EDT 1 Tablet mg) per chewable tablet tablet,chewable 1 Tablet 1 Tablet, oral, 4 TIMES DAILY PRN, Starting on Sat02/07/22 at 0354, Until 02/10/22 at 0948, Heartburn, Indigestion, Routine carbidopa-levodopa (SINEMET) 25-250 mg per Given 02/10/2022 8:11 EDT 1 Tablet tablet 1 Tablet 1 Tablet, oral, USER SPECIFIED (4 times per day), First dose on Sat02/04/22 at 1845, Until Discontinued, Routine Given 02/09/2022 21:44 EDT 1 Tablet Given 02/09/2022 18:25 EDT 1 Tablet dextrose 50 % solution 12.5 g 12.5 g (25 mL), intravenous, PRN, Starti ng on Sat02/04/22 at 1512, Until 02/10/22 at 0948, Low Blood Sugar, Routine DULoxetine (CYMBALTA) delayed release capsule 60 Given 02/10/2022 8:07 EDT 60 mg mg 60 mg, oral, DAILY, First dose on Sat02/05/22 at 1530, Until Discontinued, Routine Given 02/09/2022 10:03 EDT 60 mg Given 02/08/2022 10:14 EDT 60 mg DULoxetine capsule, delayed rel sprinkle 60 mg Given 02/04/2022 20:23 EDT 60 mg 60 mg, nasogastric, DAILY, First dose on Sat02/04/22 at 2100, Until Discontinued entacapone (COMTAN) tablet 200 mg Given 02/10/2022 8:11 EDT 200 mg 200 mg, oral, USER SPECIFIED (3 times per day), First dose on Sat02/04/22 at 1845, Until Discontinued, Routine Given 02/09/2022 18:24 EDT 200 mg Given 02/09/2022 14:59 EDT 200 mg gabapentin (NEURONTIN) capsule 100 mg Given 02/10/2022 8:06 EDT 100 mg 100 mg, oral, 2 TIMES DAILY, First dose on Sat02/04/22 at 2100, Until Discontinued, Routine Given 02/09/2022 21:39 EDT 100 mg Given 02/09/2022 10:03 EDT 100 mg glucagon injection 1 mg 1 mg, intramuscular, PRN, Starting on Sat02/04/22 at 1 512, Until 02/10/22 at 0948, Other, Low blood sugar, Routine heparin injection 5,000 Units Given 02/10/2022 8:07 EDT 5,000 Units 5,000 Units, subcutaneous, EVERY 12 HOURS, First dose on Sat02/04/22 at 2100, Until Discontinued, Routine Given 02/09/2022 21:39 EDT 5,000 Units Given 02/09/2022 10:03 EDT 5,000 Units insulin aspart U-100 (NOVOLOG FLEXPEN) Given 02/05/2022 13:21 ED T 2 Units injection subcutaneous, EVERY 6 HOURS, First dose on Sat02/04/22 at 1800, Until Discontinued, Routine, Indications: SUPPLEMENTAL INSULIN insulin aspart U-100 (NOVOLOG FLEXPEN) Given 02/10/2022 9:01 EDT 3 Units injection subcutaneous, 3 TIMES DAILY WITH MEALS, First dose on Sat02/05/22 at 1700, Until Discontinued, Routine Given 02/09/2022 15:00 EDT 2 Units Given 02/08/2022 19:02 EDT 2 Units insulin aspart U-100 (NOVOLOG FLEXPEN) i njection subcutaneous, AT BEDTIME, First dose on Sat02/05/22 at 2100, Until Discontinued, Routine iohexoL (OMNIPAQUE 300) injection 150 mL Given 02/04/2022 15:56 EDT 35 mL 150 mL, intra-arterial, NOW X1, 1 dose, On Sat02/04/22 at 1600, Routine labetaloL (TRANDATE) 20 mg/4 mL (5 mg/mL ) injection 1 dose, Starting on Sat02/04/22 at 1638, Until 01/11 at 1651 labetaloL (TRANDATE) injection 10 mg Given 02/05/2022 0:34 EDT 10 mg 10 mg, intravenous, EVERY 4 HOURS PRN, Starting on Sat02/04/22 at 1634, Until 02/10/22 at 0948, High Blood Pressure, Routine Given 02/04/2022 16:51 EDT 10 mg magnesium sulfate 2 g in water 50 mL New Bag 02/05/2022 9:57 EDT 2 g 2 g, intravenous, Administer over 60 Minutes, NOW X1, 1 dose, On Sat02/05/22 at 0915, Routine metoprolol TARtrate (LOPRESSOR) tablet 5 0 mg Given 02/10/2022 8:06 EDT 50 mg 50 mg, oral, 2 TIMES DAILY, First dose on Sat02/04/22 at 2100, Until Discontinued, Routine Given 02/09/2022 21:39 EDT 50 mg Given 02/09/2022 10:03 EDT 50 mg perflutren lipid microspheres (DEFINITY) 0.165 mg Given 02/05/2022 10:13 EDT 2 mL in sodium chloride (PF) 1 mL 0.165 mg, intravenous, ONCE, 1 dose, Starting on Sat02/05/22 at 1013, Until Sat02/05/22 at 1013, Routine polyethylene glycol 3350 (MIRALAX) packe t 17 g Given 02/08/2022 10:17 EDT 17 g 17 g, oral, DAILY, First dose on Sat02/07/22 at 1615, Until Discontinued, Routine Given 02/07/2022 17:57 EDT 17 g polyethylene glycol 3350 (MIRALAX) packe t 17 g Given 02/10/2022 8:07 EDT 17 g 17 g, oral, 2 TIMES DAILY, First dose (after last modification) on Sat02/09/22 at 0915, Until Discontinued, Routine Given 02/09/2022 10:03 EDT 17 g senna (SENOKOT) tablet 1 Tablet Given 02/07/2022 20:27 EDT 1 Tablet 1 Tablet, oral, AT BEDTIME, First dose on Sat02/07/22 at 2100, Until Discontinued, Routine senna (SENOKOT) tablet 2 Tablet Given 02/08/2022 21:09 EDT 2 Tablets 2 Tablet, oral, AT BEDTIME, First dose (after last modification) on Sat02/08/22 at 2100, Until Discontinued, Routine documented in this encounter Discontinued Medications Medication Sig Discontinue Reason Start Date End Date atorvastatin (LIPITOR) 10 Take 10 mg by Reorder 0 02/10/2022 mg tablet mouth daily. documented as of this encounter Historical Medications This list may reflect changes made after this encounter. Medication Sig Dispensed Refills Start Date End Date metoprolol TARtrate Take 50 mg by mouth 0 (LOPRESSOR) 50 mg tablet 2 times daily. DULoxetine (CYMBALTA) 30 Take 60 mg by mouth 0 mg delayed release capsule daily. gabapentin (NEURONTIN) 100 Take 100 mg by 0 mg capsule mouth 2 times daily. entacapone (COMTAN) 200 mg Take 200 mg by 0 tablet mouth 3 times daily. carbidopa-levodopa Take 1 Tablet by 0 (SINEMET) 25-250 mg per mouth 4 times tablet daily. glipiZIDE (GLUCOTROL) 5 mg Take 5 mg by mouth 0 02/22/2022 tablet 2 times daily. atorvastatin (LIPITOR) 10 Take 10 mg by mouth 0 02/10/2022 mg tablet daily. added in this encounter Active and Recently Administered Medications Times are shown in EDT. Scheduled Medication Order 02/08/2022 02/09/2022 02/10/2022 aspirin chewable tablet 81 mg 1013 (Given - Provider: Jung Hassan RN) 1003 (Given - Provider: Tyler Souza RN) 0807 (Given - Provider: Tyler Souza RN) 81 mg, oral, DAILY, First dose on Sat at 0900, Until Discontinued, Routine atorvastatin (LIPITOR) tablet 40 mg 1013 (Given - Provider: Susan Hassan RN) 1003 (Given - Provider: Tyler Souza RN) 0807 (Given - Provider: Tyler Souza RN) 40 mg, oral, DAILY, First dose on Sat at 1515, Until Discontinued, Routine bisacodyL (DULCOLAX) suppository 10 mg (COMPLETED) 1003 (Given - Provider: Tyler Souza RN) 10 mg, rectal, Once, 1 dose, On Sat02/09/22 at 0915, Routine carbidopa-levodopa (SINEMET) 25-250 mg per tablet 1 Ta blet 1014 (Given - Provider: Susan Hassan RN)1337 (Given - Provider: Susan Hassan RN)1820 (Given - Provider: Susan Hassan RN)2112 (Given - Provider: Natalie Diaz RN) 1003 (Given - Provider: Tyler Souza RN)1459 (Given - Provider: Tyler Souza RN)1825 (Given - Provider: Tyler Souza RN)2144 (Given - Provider: Charla Howe RN) 0811 (Given - Provider: Tyler Souza RN) 1 Tablet, oral, USER SPECIFIED (4 times per day), First dose on Sat02/04/22 at 1845, Until Discontinued, Routine DULoxetine (CYMBALTA) delayed release capsule 60 mg 10 14 (Given - Provider: Susan Hassan RN) 1003 (Given - Provider: Tyler Souza RN) 0807 (Gi analilia - Provider: Tyler Souza RN) 60 mg, oral, DAILY, First dose on Sat at 1530, Until Discontinued, Routine entacapone (COMTAN) tablet 200 mg 1014 (Given - Provid er: Susan Hassan RN)1337 (Given - Provider: Susan Hassan RN)1820 (Given - Provider: Susan Hassan RN) 1003 (Given - Provider: Tyler Souza RN)1459 (Given - Provider: Tyler Souza RN)1824 (Given - Provider: Tyler Souza RN) 0811 (Given - Provider: Tylre Souza RN) 200 mg, oral, USER SPECIFIED (3 times pe r day), First dose on Sat02/04/22 at 1845, Until Discontinued, Routine gabapentin (NEURONTIN) capsule 100 mg 1017 (Given - Pr ovider: Susan Hassan RN)2108 (Given - Provider: Natalie Diaz RN) 1003 (Given - Provider: Tyler Souza RN)2138 (Given - Provider: Charla Howe RN) 0806 (Given - Provider: Tyler Souza RN) 100 mg, oral, 2 TIMES DAILY, First dose on Sat02/04/22 at 2100, Until Discontinued, Routine heparin injection 5,000 Units 1017 (Given - Provider: Susan Hassan RN)2108 (Given - Provider: Natalie Diaz RN) 1003 (Given - Provider: Tyler Souza RN)2138 (Given - Provider: Charla Howe RN) 0807 (Given - Provider: Tyler Souza RN) 5,000 Units, subcutaneous, EVERY 12 HOUR S, First dose on Sat02/04/22 at 2100, Until Discontinued, Routine insulin aspart U-100 (NOVOLOG FLEXPEN) injection 1003 (Not Given - Provider: Susan aHssan RN - Reason: Order parameters not met)1337 (Given - Provider: Susan Hassan RN - Comment: FBG 160)1902 (Given - Provider: Susan Hassan RN - Comment: FBG 178) 1002 (Not Given - Provider: Tyler small RN - Reason: Order parameters not met - Comment: fs 132)1500 (Given - Provider: Tyler Souza RN)1828 (Not Given - Provider: Tyler Souza RN - Reason: Order parameters not met - Comment: fs 121) 0901 (Given - Provider: Tyler Souza RN) subcutaneous, 3 TIMES DAILY WITH MEALS, First dose on Sat02/05/22 at 1700, Until Discontinued, Routine insulin aspart U-100 (NOVOLOG FLEXPEN) injection 220 (Not Given - Provider: Natalie Diaz RN - Reason: Order parameters not met) 214 (Not Given - Provider: Charla Howe RN - Reason: Order parameters not met) subcutaneous, AT BEDTIME, First dose on Sat02/05/22 at 2100, Until Discontinued, Routine metoprolol TARtrate (LOPRESSOR) tablet 50 mg 1017 (Giv en - Provider: Susan Hassan RN)2111 (Given - Provider: Natalie Diaz RN) 1003 (Given - Provider: Tyler Souza RN)213 (Given - Provider: Charla Howe RN) 0806 (Given - Provider: Tyler Suoza RN) 50 mg, oral, 2 TIMES DAILY, First dose o n 02/04/22 at 2100, Until Discontinued, Routine polyethylene glycol 3350 (MIRALAX) packet 17 g (CANCEL ED) 1017 (Given - Provider: Susan Hassan RN) 17 g, oral, DAILY, First dose on 01/11 at 1615, Until Discontinued, Routine polyethylene glycol 3350 (MIRALAX) packet 17 g 1003 (Given - Provider: Tyler Souza RN)214 (Not Given - Provider: Charla Howe RN - Reason: Other) 0807 (Given - Provider: Tyler Souza RN) 17 g, oral, 2 TIMES DAILY, First dose (a fter last modification) on Sat02/09/22 at 0915, Until Discontinued, Routine senna (SENOKOT) tablet 2 Tablet 2108 (Given - Provider: Marietta Diaz RN) [id number] (Not Given - Provider: Charla Howe RN - Reason: Other - Comment: Lg bm earlier today) 2 Tablet, oral, AT BEDTIME, First dose ( after last modification) on Marianne 02/08/22 at 2100, Until Discontinued, Routine PRN Medication Order 02/08/2022 02/09/2022 02/10/2022 acetaminophen (TYLENOL) solution unit dose cup 650 mg(Linked Du up 1) 650 mg, oral, EVERY 6 HOURS PRN, Startin g on 02/04/22 at 1507, Until 02/10/22 at 0948, Pain, Fever, Routine acetaminophen (TYLENOL) suppository 650 mg(Linked Group 1) 650 mg, rectal, EVERY 6 HOURS PRN, Start ing on 02/04/22 at 1507, Until 02/10/22 at 0948, Fever, Pain, Routine acetaminophen (TYLENOL) tablet 650 mg(Linked Group 1) 650 mg, oral, EVERY 6 HOURS PRN, Startin g on 02/04/22 at 1507, Until 02/10/22 at 0948, Pain, Fever, Routine bisacodyL (DULCOLAX) EC tablet 10 mg(Linked Group 2) 10 mg, oral, DAILY PRN, Starting on 02/04/22 at 1507, Until 02/10/22 at 0948, Constipation, Routine bisacodyL (DULCOLAX) suppository 10 mg(Linked Group 2) 10 mg, rectal, DAILY PRN, Starting on Gant n 02/04/22 at 1507, Until 02/10/22 at 0948, Constipation, Routine calcium carbonate (TUMS) 200 mg calcium (500 mg) per chewable tablet tablet,chewable 1 Tablet 1 Tablet, oral, 4 TIMES DAILY PRN, Start ing on Sat02/07/22 at 0354, Until 02/10/22 at 0948, Heartburn, Indigestion, Routine dextrose 50 % solution 12.5 g 12.5 g (25 mL), intravenous, PRN, Starti ng on 02/04/22 at 1512, Until 02/10/22 at 0948, Low Blood Sugar, Routine glucagon injection 1 mg 1 mg, intramuscular, PRN, Starting on Gant n 02/04/22 at 1512, Until 02/10/22 at 0948, Other, Low blood sugar, Routine labetaloL (TRANDATE) injection 10 mg 10 mg, intravenous, EVERY 4 HOURS PRN, S tarting on 02/04/22 at 1634, Until 02/10/22 at 0948, High Blood Pressure, Routine Linked Groups Order Group 1: acetaminophen (TYLENOL) tablet 650 mgJump to med 650 mg, oral, EVERY 6 HOURS PRN, Startin g on 02/04/22 at 1507, Until 02/10/22 at 0948, Pain, Fever, Routine Or acetaminophen (TYLENOL) suppository 650 mgJump to med 650 mg, rectal, EVERY 6 HOURS PRN, Start ing on 02/04/22 at 1507, Until 02/10/22 at 0948, Fever, Pain, Routine Or acetaminophen (TYLENOL) solution unit dose cup 650 mgJump to med 650 mg, oral, EVERY 6 HOURS PRN, Startin g on 02/04/22 at 1507, Until 02/10/22 at 0948, Pain, Fever, Routine Group 2: bisacodyL (DULCOLAX) EC tablet 10 mgJump to med 10 mg, oral, DAILY PRN, Starting on 02/04/22 at 1507, Until 02/10/22 at 0948, Constipation, Routine Or bisacodyL (DULCOLAX) suppository 10 mgJump to med 10 mg, rectal, DAILY PRN, Starting on Gant n 02/04/22 at 1507, Until 02/10/22 at 0948, Constipation, Routine documented in this encounter Orders Medications Ordered That Might Not Have Count Last Ord ered Date First Ordered Date Been Administered insulin aspart U-100 (NOVOLOG FLEXPEN) 2 2 02/04/2022 injection acetaminophen (TYLENOL) solution unit dose 1 02/04 cup 650 mg acetaminophen (TYLENOL) suppository 650 mg 1 02/04 bisacodyL (DULCOLAX) EC tablet 10 mg 1 02/04/2022 bisacodyL (DULCOLAX) suppository 10 mg 1 dextrose 50 % solution 12.5 g 1 02/04/2022 DULoxetine (CYMBALTA) delayed release 1 02/04/2022 capsule 60 mg glucagon injection 1 mg 1 02/04/2022 lidocaine (XYLOCAINE) 2 % viscous solution 1 02/04 5 mL phenylephrine-lidocaine 0.25 %-3 % 1 02/04/2022 (CO-PHENYLCAINE) topical solution 5 mL Procedures Count Last Ordered Date First Ordered Date IMPLANT RECORD - SCANNED 1 02/14/2022 Diet Count Last Ordered Date First Ordered Date DISCHARGE DIET 1 02/10/2022 Nursing Count Last Ordered Date First Ordered Date ACTIVITY INSTRUCTIONS 1 02/10/2022 Admission Count Last Ordered Date First Ordered Date ADMIT TO INPATIENT 1 02/04/2022 Transfer Count Last Ordered Date First Ordered Date TRANSFER PATIENT 3 02/06/2022 02/05/2022 ED BED REQUEST 1 02/04/2022 Discharge Count Last Ordered Date First Ordered Date DISCHARGE PATIENT 1 02/10/2022 documented in this encounter Care Teams Nib Finisher Relationship Specialty Start Date End Date Griselda Stanley MD PCP - General 06/06/12 [address] [place],[address] [place] [address] documented as of this encounter
--- OUTSIDE RECORDS SUMMARY | 2022-02-26 04:08 | XMS_ITS | Encounter Summary ---
:1955 Author Organization [facility] Address [address] [place] [address] Care Team Providers Name Role Phone Griselda Stanley MD Primary Care Provider Reason for Referral Consult (Routine/Next Available) - Authorization Not Required Specialty Diagnoses / Procedures Referred By Contact Refer red To Contact Diagnoses Arterial ischemic stroke, MCA (middle cerebral artery), left, acute ([facility]) (HCC) Parkinson's disease ([facility] ([facility]) Tequila Llamas MD [address] [place] [phone] Referral ID Status Reason Start Expiration Visits Visits Date Date Requested Authorized [id number] Authorization Specialty 1 1 Not Required Services 2 Required Question Answer I certify that this patient is under my 02/21/2022 care and that I, or another Medicare allowed practitioner (DO PAMELA, GLEN) working with me, had a [id number] encounter with this patient on this date: The discharge summary or progress note will Yes provide further details that support the need for the home health services and the plan of care. Enter the allowed practitioner (DO SANTIAGO Pratt GLEN) who will provide oversight of this patient's home heatlh care needs and plan of care The patient? CVA s homebound status is related to the following diagnoses, illness or condition (describe): Patient needs one or more of the following The assista nce or supervision of another to leave home: person Leaving the home is medically Risk of falls and/or his tory of falls contraindicated due to: require the assistance/super vision of another person The following conditions illustrate the The severity o f the neurological disease patient? limits functional ability and ambulation s normal inability to leave home AND that leaving home requires a considerable and taxing effort: Skilled Care Requested Physical Therapy, PLANT ANATOMIST, Occup ational therapy, FIREARMS SPECIALIST for personal ca re Physical therapy is needed for: Evaluation, Safety, Ga it/Mobility Assessment and Training, Equ ipment Recommendations PLANT ANATOMIST for: Communication Occupational Therapy for: ADL Training, Assess Need fo r Adaptive Equipment, Bathroom Equipmen t Eval FIREARMS SPECIALIST for Personal Care (SN/PT referral Yes req'd): Expected Discharge Date (Inpatient Only): 02/22/2022 Reason for Visit Auth/Cert Specialty Diagnoses / Procedures Referred By Contact Refer red To Contact Diagnoses Encounter for other specified aftercare Arterial ischemic stroke, MCA (middle cerebral artery), left, acute ([facility]) ([facility]) History of recent stroke Referral ID Status Reason Start Date Expiration Date Visits Requ ested Visits Authorized [id number] 1 1 Encounter Details Date Type Department Care Team Description 02/10/2022 - [facility] Tequila Llamas MD [address] [place] [phone] Arterial ischemic stroke, MCA (middle ce rebral artery), left, acute ([facility]) ([facility]) (Primary Dx); 02/22/2022 Encounter Rehabilitation Therapy Nadiya Roldan MD [address] [place] [phone] Aphasia; Unit Level 2 Dysarthria; [address] [place] [address] Diabetes mellitus type 2 in nonobese ([facility]) ([facility]); [place] [address] Parkinson's disease ([facility] ) ([facility]); [phone] Longstanding pe rsistent atrial fibrillation ([facility]) ([facility]); Other constipat ion Social History Tobacco Use Types Packs/Day Years [...] EDT Inhaled Oxygen Concentration - - Weight 96.1 kg (211 lb 12.8 oz) 02/10/2022 1003 EDT Height 182.9 cm (6' 0.01) 02/10/2022 1022 EDT Body Mass Index 28.72 02/10/2022 1003 EDT documented in this encounter Functional Status Functional Status Response Date of Assessment Are you deaf or do you have serious difficulty hearing? Yes - OMAHA 02/11/2022 Are you blind or do you have serious difficulty seeing, No 02/11/2022 even when wearing glasses? Do you have serious difficulty walking or climbing Yes 02/11/2022 stairs? (5 years old or older) Do you have difficulty dressing or bathing? (5 years old Yes 02/11/2022 or older) Because of a physical, mental, or emotional condition, Yes 02/11/2022 do you have difficulty doing errands alone such as visiting a doctor's office or shopping? (15 years old or older) Cognitive Status Response Date of Assessment Because of a physical, mental, or emotional condition, do Ye s 02/11/2022 you have serious difficulty concentrating, remembering, or making decisions? (5 years old or older) documented as of this encounter Discharge Summaries Tequila Llamas MD - 02/22/2022 0930 EDT Discharge Summary Date of Service: 02/22/2022 Chief Complaint/Reason for Admission: CVA Admission date: 02/10/2022 Discharge date: 02/22/2022 Principal/Final Diagnosis: History of recent stroke Condition at Discharge: Improved Assessment at Discharge: Temp: [35.6 ??C (96.1 ??F)-36 ??C (96.8 ??F)] , Pulse: [67] , Resp: [14-15] , BP: (127-130)/(75-77) , SpO2: [97 %-100 %] History of Illness Prior to Rehabilitation Admission: Per HPI 02/10/2022: 66 y.o. male with history of Parkinson's disease status post deep brain stimulator placement, polyneuropathy, right foot drop, atrial fibrillation not anticoagulated, type 2 diabetes, hyperlipidemia presented 02/04/2022 with left MCA occlusion transferred to [facility] from [facility] following CTA outside th erapeutic window for tPA. NIH 11 on arrival. Underwent mechanical thrombectomy revealing occlusion of left anterior M2 branch, complete perfusion achieved after first pass. TTE w/ preserved EF (55-60%) and possible hypokinesis of mid-apical inferoseptal wall, but no notable thrombus or valvular vegetations. Severely dilated LA. Suspected cardioembolic etiology of stroke given A. fib not on anticoagulation. Plan is to follow-upwith neurology and cardiology. Previously not on anticoagulation due to fall risk. ?? Currently he is requiring assistance with functional mobility and basic self care. Patient was evaluated and found appropriate for acute inpatient rehabilitation program. Patient transferred to acute rehab 02/10/2022 Problems Addressed During Rehabilitation Admission: 1. Left MCA stroke 02/04/2022 s/p mechanical thrombectomy. He has residual aphasia, with impaired mobility and self-cares. Patient underwent comprehensive rehabilitation program including OT, PT, 24 hour rehab nursing. Patient progressed functionally and on discharge is assist of one for basic self care and functional mobility. Remains with aphasia moderate expressive and mild receptive as well as dysarthria and apraxia of speech. Tolerating Dysphagia level 4 diet with thin liquids. Continues on aspirin 81 mg daily and atorvastatin (increased to 40 mg daily) for stroke prophylaxis at discharge. Consider initiation of anticoagulation for A fib at follow up. ?? Episodes JAVED and worsened speech occured on 02/12 and 02/18 prompting ED evals with no sig changes on head CT, CT does show small amount of petechial hemorrhage within infarct. Has continued to have fluctuating course with motor and speech function, suspect parkinson's is playing a role in this. ?? 2. Chronic atrial fibrillation: Continued metoprolol for rate control. He has not been on anticoagulation previously due to fall risk. Reviewed with patient and risks and benefits and they would like to start anticoagulation pending review with primary care and stable follow up neuro imaging. ?? 3. Parkinson disease: S/p DBS: Continued carbidopa/levodopa 25-250 mg 4 times daily and encaptone 200 Mg 3 Times Daily. Followed by neurology [facility] as outpatient. ?? 4. Right foot drop: Uses a solid AFO with subtalar strap at baseline and continued use here. ?? 5. 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 Managed with Metformin 500mg daily here. Continued gabapentin for diabetic polyneuropathy. ?? Disposition: The patient is being discharged to home 02/22/2022. Assistance to be provided by spouse. Caregiver training completed. Continued home services to include PLANT ANATOMIST, PT, OT, and home health aide have been requested. Last Lab Results at Discharge: BUN: Lab Results Component Value Date BUN 15 02/18/2022 Creatinine: Lab Results Component Value Date CREATININE 0.88 02/18/2022 CBC: Lab Results Component Value Date WBC 9.48 02/18/2022 RBC 4.84 02/18/2022 HGB 14.2 02/18/2022 HCT 41.8 02/18/2022 MCV 86 02/18/2022 MCH 29.3 02/18/2022 MCHC 34.0 02/18/2022 PLT 193 02/18/2022 DIFFTYPE Auto 02/18/2022 Electrolytes: Lab Results Component Value Date NA 140 02/18/2022 K 4.4 02/18/2022 CL 103 02/18/2022 CO2 30 02/18/2022 CT head 02/18/22 IMPRESSION: Redemonstrated evolving left MCA territory infarcts without associated hematoma- type hemorrhage. Irregular hyperattenuation within the region of infarct could represent a small amount of petechial hemorrhage, similar in distribution to prior but slightly more prominent. No new infarct. cc: Primary Care Provider: Griselda Satnley [address] [place] [address],[facility] 1 [facility] [id number] Discharge Summary Completed: yes 45 minutes total time spent on discharge today including discussion and instruction to patient and caregiver, preparation of records, prescriptions and referrals. documented in this encounter Discharge Instructions MedicationsCourtney Marsh RN - 02/22/2022 9:20 EDT Please make an appt with your PCP within 7-10 days to obtain refills. Refills cannot be written by Rehab. documented in this encounter Medications at Time of Discharge Medication Sig Dispensed Refills Start Date End Date acetaminophen (TYLENOL) 325 Take 2 Tablets by 0 0 02/21/2022 mg tablet mouth every 4 hours as needed for Pain. aspirin chewable 81 mg Take 1 Tablet by 0 022 tablet mouth daily. atorvastatin (LIPITOR) 10 Take 4 Tablets by 60 Tablet 2 09/2021 mg tablet mouth daily. carbidopa-levodopa Take 1 Tablet by 0 (SINEMET) 25-250 mg per mouth 4 times daily. tablet DULoxetine (CYMBALTA) 30 mg Take 60 mg by mouth 0 delayed release capsule daily. entacapone (COMTAN) 200 mg Take 200 mg by mouth 0 tablet 3 times daily. gabapentin (NEURONTIN) 100 Take 100 mg by mouth 0 mg capsule 2 times daily. metFORMIN (GLUCOPHAGE) 500 Take [...] by 0 2021 tablet mouth at bedtime. documented as of this encounter Ordered Prescriptions Prescription Sig Dispensed Refills Start Date End Date metFORMIN (GLUCOPHAGE) 500 Take 1 Tablet by 30 Tablet 0 mg tablet mouth daily with breakfast. senna (SENOKOT) 8.6 mg Take 2 Tablets by 0 2021 tablet mouth at bedtime. polyethylene glycol 3350 Take 17 g by mouth 0 (MIRALAX) 17 gram packet daily as needed (constipation). acetaminophen (TYLENOL) 325 Take 2 Tablets by 0 0 02/21/2022 mg tablet mouth every 4 hours as needed for Pain. documented in this encounter Discharge Disposition Disposition Code Departure Means Destination Home-Health Care [facility] documented in this encounter Progress Notes Terri Stevens - 02/22/2022 1050 EDT CM Discharge Note CASE MANAGEMENT DISCHARGE NOTE DISCHARGE DATE/TIME: Today at 10:30 DESTINATION: home with spouse TRANSPORTATION: spouse HEMATOLOGIST ONCOLOGIST/CHARGE/MD NOTIFIED (Y/N): yes IM SIGNED (Y/NA): yes HOME HEALTH: Referred to [facility] for PT/OT/PLANT ANATOMIST/FIREARMS SPECIALIST DME: No new DME orders PHARMACY/PRESCRIPTIONS: Sent to his community pharmacy Patient and/or family who participated in discharge plan: was here this morning for education and d/c instructions with therapy staff. Terri Monsivais RN CCM Robert Garcia - 02/22/2022 0859 EDT Speech-Language Pathology Progress and Discharge Note PLANT ANATOMIST Diagnosis: Aphasia, Dysarthria, Apraxia, and Dysphagia, oral phase Medical Diagnosis: L MCA CVA Date of Onset: 02/04/22 Date of Referral: Admit to rehab 02/09/22 Subjective/Objective SUBJECTIVE: Sometime's its good, sometimes it's bad OBJECTIVE: Date of Service: 02/22/2022 Start Time: 1000 Total Therapy minutes: 30 minute(s) language tx Patient has been seen 10 times by PLANT ANATOMIST services during his 1.5 week inpatient rehabilitation stay. Please refer to daily documentation for details. Patient Interview: Patient's preferred name is Rick. Faith is lives in [place], [place] with his , Arlyn. 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 He is originally from [place], [place] but moved to [place] when he was 21. He has one adult son, Marcell Pack, a [id number], and a granddaughter, Bala, who live in [place]. Marcell's highest level of schooling is 12th grade. Per patient's , patient did not seek speech therapy prior to this hospitalization as it was not deemed necessary; for example, stated that patient was able to carry on a conversation in a crowded room without difficulty and order meals at restaurants. Current presentation of severely reduced intelligibility is a significant departure from patient's baseline. Current Treatment Objectives: Verbal Expression: Goal #1: The patient will generate automatic sequences (counting, days of the week) with 90% accuracy. 02/14: Patient attempted to count from 1-20 aloud. Patient presented with frequent semantic paraphasias (e.g., 1, 2, 3, 4, 5, 36, 37, 38...) in all trials. Strategies of reading written numbers aloud or saying numbers in unison with PLANT ANATOMIST were not successful in reducing paraphasias. Patient did recite days of the week provided written cues of the first letter of each day and the full words of Saturday-Saturday. Patient presented with frequent neologistic paraphasias (squickay) in trials with less cueing. 02/17: Couting 1-: 95% accuracy (x1 repetition) with accuracy increased to 100% with phonemic cue. KAEL: 3/ independently (43%), increased to 7/ with phonemic cues/reframing as cloze task. 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 02/21: KAEL: 5/7 independently (71%), increased to 7/7 with repetition NADIYA: 3/12 independently (25%), increased to 6/12 with written cues, increased to 11/ with written and phonemic cues. Goal #2: The patient will describe a word utilizing semantic feature analysis (SFA) or any appropriate word retrieval strategy with 90% accuracy??provided moderate verbal and written cues for word retrieval. 02/19: In the context of an SFA task, pt stated several one-word utterances describing various attributes of items: Cell phone: FUNCTION: call, talk, text; ATTRIBUTES: square, small; LOCATION: everywhere ASSOCIATION:n/a 02/20: In the context of an SFA task, pt stated several one-word utterances describing various attributes of items: Tissues: FUNCTION: clean, sneeze; ATTRIBUTES: paper, white; LOCATION: bathroom ASSOCIATION: n/a Mask FUNCTION: protect (multiple choice); ATTRIBUTES: blue; LOCATION: pharmacy ASSOCIATION: germs Goal #3: Given a specific category, the patient will accurately name 5 items within it with 90% accuracy. 7: The patient names two items in a category with 100% success (10/10); he also names three items in a category with 100% success (10/10). He benefited from maximal cues to draw and use an alphabet board to spell when experiences difficulty with word-finding. The patient presented with frequent phonemic paraphasias during this task. 02/17: The patient names two items in a category with 100% accuracy. Patient was able to increase number of items within a category given written cues and additional processing time. Animals: The patient generated x6 items given written cues Tools: Generated x 4 items given written cues and phonemic cues; frequent literal paraphasias noted 02/21: The patient names 5 items in a category with 100% accuracy given very minimal phonemic and visual cues. x1 neologism noted (michelle). Categories: fruit, clothing, [place] states, [place] towns, forest animals, things in a garden. Goal #4: The patient will provide a single word to complete a phrase with 90% accuracy. 7/: Patient generated single word pairs to opposites (e.g., salt and , black and ____) with 70% accuracy (02/18) provided maximal gestural, verbal, and written cues. Writing down stimuli increase accuracy and decreased pt frustration significantly. 02/21: Pt generated single wort pairs to opposites with 80% accuracy (12) with minimal phonemic cues. In responsive naming task, pt named an item based off of a verbal description with 100% accuracy (15/15) independently. Goal #5: The patient will produce >10 utterances of >5 words during a 50 minute PLANT ANATOMIST session independently. 02/16: Pt performance of a Verb Network Strengthening Treatment (VNeST) task below: Verb Production Type Response # of Words 1. drive VNeST 1. 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 I drive my truck 3. My drives her car 4. My brother drives his bike 5. My drives her car to the grocery store after her work because she needs groceries. 1. 4 2. 4 3. 5 4. 5 5. 16 02/19: Pt performance of a Verb Network Strengthening Treatment (VNeST) task below: Verb Production Type Response # of Words 1. carry VNeST Dalia carries a baby. Bala carries toys. Charlotte carries toys. Bala carries toys around my house on holidays to play with me. 4 3 3 12 Motor Speech: Goal #1: The patient will be 90% intelligible to familiar listeners during spontaneous conversation using compensatory strategies of speaking loudly and slowly. 02/14: The pt effectively used compensatory strategy of speaking loudly with moderate success for increased intelligibility. Visual cue of SAY IT LOUD increased pt's use of strategy. 02/15: The patient independently noted intelligibility strategy of SAY IT LOUD when clinician entered room. Patient benefited from minimal cueing throughout today's session to increase volume for improved intelligibility. 02/17: The patient with reduced intelligibility across all verbal tasks today. Intelligibility decreased as a function of word length. Suspect both hypokinetic dysarthria and literal paraphasias contribute to decreased intelligibility. Patient approximately 50% intelligible to this unfamiliar listener at sentence level. Patient continues to benefit from education regarding speech intelligibility strategies. Augmentative-Alternative Communication: Goal #1: The patient will produce 10+ meaningful utterances using an AAC device during a 60-minute PLANT ANATOMIST session provided minimal cues. 02/20: PLANT ANATOMIST supported pt navigation through AAC glen TouchChat[employer]. With maximal cueing, pt produced 4 meaningful utterances using the AAC glen. Pt expressed interest in continued work with AAC to supplement verbal communication treatment. Patient/Family Education: Topic: Patient/Family education and training was completed today with patient and his , Arlyn. Arlyn purchased a tablet to download an AAC program to support Marcell's communication. PLANT ANATOMIST attempted to search/download apps on tablet, but could not d/t technical difficulties. PLANT ANATOMIST will follow up via email with list of possible AAC apps that may be helpful for the pt. PLANT ANATOMIST reviewed communication strategies including writing, speaking slowly/loudly in short utterances, and facing each other when speaking. PLANT ANATOMIST also stressed importance of continuing services on home health and then outpatient basis. Arlyn enthusiastically agreed. Learner: patient Method of Education: Verbal and Written Barriers to Learning/Education: none Patient: was able to verbalize understanding of information Family: , Arlyn, verbalized understanding Assessment/Plan ASSESSMENT/CLINICAL IMPRESSIONS: Mr. Sharlene Faith is a male 66 y.o. with PD admitted with LMCA occlusion s/p thrombectomy. Marcell has made modest gains in his motor speech and language functioning over the course of his 1.5 week stay ininpatient rehab. 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 At discharge, speech is non-fluent with evidence of anomia and occasional phonemic/neologistic paraphasias. Marcell has made significant gains in confrontation,generative and responsive naming. He continues to demonstrate difficulty producing automatic sequences and spontaneous language of 5+ word length. 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 He also demonstrates inconsistent errors and deteriorating articulation when repeating words 5+ times, suggesting Apraxia of Speech (AOS). Also noted throughout Marcell's inpt rehab stay was variable language output, possibly related to Parkinson's medication/symptom severity cycles. Marcell is 68% intelligible at the word level and ~50% intelligible at the sentence level to an unfamiliar listener. Brief AAC trials suggested high-tech AAC could be promising communicative support during pt ongoing treatment (and beyond). Education provided today in regards to AAC glen options and importance of continued therapies through home health. Patient currently needs assistance communicating basic wants and needs and directing his medical care. Given patient's age, independence prior to admission, and social/occupational demands, he would benefit from continued PLANT ANATOMIST intervention from home health upon discharge, with a quick transition to outpatient services. Based on the patient's premorbid level of functioning, medical diagnosis, comorbidities and patient/family support, the patient's prognosis is considered good. Previous evaluation of pt's swallow function indicated pt currently presents with a very mild oral phase dysphagia characterized by prolonged mastication and bolus formation. Etiology of dysphagia is mechanical d/t pt's current lack of teeth while he is going through process of acquiring dentures. No overt s/sx of laryngeal penetration observed during evaluation. Patient remains at low risk of aspiration at this time. Prognosis for improvement in swallow function is judged to be excellent at this time secondary to upcoming acquisition of dentures. Functional Communication Measures ([place] [employer], 2002). The Functional Communication Measures (FCM???s) are a series of 7 point rating scales, ranging from least functional (Level 1) to most functional (Level 7). They have been developed by SUZANNA to describedifferent aspects of patient???s functional communication and swallowing abilities over the course of PLANT ANATOMIST intervention. ?? Spoken Language Comprehension Level 6: Individual is able to understand communication in most activities, but some limitations in comprehension are still apparent in vocational, avocational, and socialactivities. The individual rarely requires minimal cueing to understand complex sentences. The individual usually uses compensatory strategies when encountering difficulty. Spoken Language Expression Level 3: The communication partner must assume responsibility for structuring the communication exchange, and with consistent and moderate cueing, the individual can produce words and phrases that are appropriate and meaningful in context. Motor Speech Level 3: 3The communication partner must assume primary responsibility for interpretingthe communication exchange, however, the individual is able to produce short consonant-vowel combinations or automatic words intelligibly. With consistent and moderate cueing, the individual can produce simple words and phrases intelligibly, although accuracy may vary. Augmentative-Alternative Communication Level 3: The individual usually requires moderate cueing and additional time to use augmentative-alternative communication to convey simple messages related to personal wants/needs with familiar communication partners, although accuracy may vary. The communication partner must assume responsibility for structuring most communication exchanges. GOALS: Blanket Binder Goals: Projected Functional Communication Measures at discharge: Spoken Language Expression Level 3: The communication partner must assume responsibility for structuring the communication exchange, and with consistent and moderate cueing, the individual can produce words and phrases that are appropriate and meaningful in context. Augmentative-Alternative Communication Level 3: The individual usually requires moderate cueing and additional time to use augmentative-alternative communication to convey simple messages related to personal wants/needs with familiar communication partners, although accuracy may vary. The communication partner must assume responsibility for structuring most communication exchanges. ?? Short Term Goals: Verbal Expression: Goal #1: The patient will generate automatic sequences (counting, days of the week) with 90% accuracy. - Not met. Continue Goal. Goal #2: The patient will describe a word utilizing semantic feature analysis (SFA) or any appropriate word retrieval strategy with 90% accuracy??provided moderate verbal and written cues for word retrieval. - Met. Discontinue. Goal #3: Given a specific category, the patient will accurately name 5 items within it with 90% accuracy. -Met. Discontinue. Goal #4: The patient will provide a single word to complete a phrase with 90% accuracy. - Met. Discontinue. Goal #5: The patient will produce >10 utterances of >5 words during a 50 minute PLANT ANATOMIST session independently. - Not met. Continue Goal. New Goal Area Augmentative-Alternative Communication: Goal #1: The patient will produce 10+ meaningful utterances using an AAC device during a 60-minute PLANT ANATOMIST session provided minimal cues. - Not met. Continue Goal. Motor Speech: Goal #1: The patient will be 90% intelligible to familiar listeners during spontaneous conversation using compensatory strategies of speaking loudly and slowly. - Not met. Continue Goal. PLAN/RECOMMENDATIONS: Recommend PLANT ANATOMIST services: through home health transitioning to outpatient. Recommend patient seen 3x/week @ 50 min. ?? Healthcare Communication Access Recommendations Patient has mild Comprehension and moderate Expression impairments; pt is hard of hearing at baseline ?? Please support access to communication and healthcare information by doing the following: Plan in extra time when preparing to speak to Marcell Offer Marcell written cues as needed. ?? Supported Comprehension: ?? Supplement communication with gestures, writing, pictures ?? Be prepared to repeat and rephrase, especially as pt is hard of hearing. ?? Supported Expression: ?? Verbalize two choices or ask yes/no questions. ?? Ask closed ended questions. ROBERT WADSWORTH 02/22/2022 15:12 Vijaya Mishra - 02/22/2022 0789 EDT [facility] Rehabilitation Therapy Inpatient Rehabilitation [facility] Occupational Therapy Discontinue/Discharge Note Date of Service: 02/22/2022 Mobility Precautions Activity: Activity as tolerated, Level of risk of Harm A SUBJECTIVE: So what's up? You take care too. OBJECTIVE: In this reporting period 02/10/22 to today, the patient has been seen for occupational therapy services. Please refer to the occupational therapy notes for specifics on the patient???s treatment sessions. Interventions Completed Today: First Session Start time: 929 Total Therapy Minutes: 10 minute(s) Interventions included: Therapeutic Activities -Discussed plan for discharge today with pt and spouse verbalizing good understanding. -Skilled discussion with pt and pt's regarding pt status with self-feeding, support group resources and therapy/counseling resources available. Pt expressed interest in counseling and spouse verbalized understanding. -Information and recommendations provided regarding freezing when pt stands up, including counting prior to standing, starting to move feet and bending forward. Spouse verbalized understanding. Vital signs: Vital signs have been stable with interventions and were not monitored. Body Functions and Performance Skills Cardiovascular/Respiratory Systems Function: Vital Signs: Vital signs have been stable with interventions and were not monitored. Mental Functions: Arousal/Alertness: Alert Orientation Level: Oriented X 4 Following Commands: Follows one step commands Following Commands Comments: consistently following 1 step commands in functional context. Some breakdown of command following with novel instructions Sensory Functions: Vision: wears bifocals, able to read sentences on whiteboard Hearing: Hard of hearing, Intact to conversational tones Neuromusculoskeletal and Movement Related Functions: Range of motion: B UE AROM within functional limits Strength: not formally assessed but grossly 3+/5 in BUEs. Good B gross grasp- see arts therapist strength below Control of voluntary movement: able to correct slight posterior and lateral lean to maintain sittingbalance EOB. Static standing balance: min contact A Dynamic standing balance: min contact A with use of 4WW Involuntary movement: R>LUE tremor which was pt's baseline Fine motor coordination: impaired d/t limited sensation in distal extremities, decreased B fine motor dexterity Landscape Nurseryman Strength^ measures the strength of a person's arts therapist. Age/gender based healthy normative values (Wisam, 2006) Male 95% CI (pounds) 95% CI (pounds) Age Right Left 20 - 24 99.6 - 135.6 85.5 - 123.6 25 - 29 97.7 - 140.3 90.5 - 129.9 30 - 34 97.2 - 135.6 89.1 - 127.6 35 - 39 97.0 - 138.1 97.1 - 130.8 40 - 44 103.9 - 135.0 93.7 - 125.8 45 - 49 93.7 - 128.5 88.9 - 126.0 50 - 54 97.4 - 125.4 86.8 - 112.7 55 - 59 80.9 - 113.4 74.3 - 106.6 60 - 64 81.1 - 103.0 73.7 - 97.1 65 - 69 78.1 - 105.7 70.6 - 97.9 70 - 74 70.5 - 98.0 66.9 - 92.9 75+ 55.2 - 68.4 54.7 - 76.4 For people with Parkinson's disease and a Aiyana and Yahr score of 1.9 + 0.9, a change as small as + 0.1 kilogram or 0.22 pounds (2 YANIRA) may be indicative of true change in arts therapist strength (Dion, 2016) Landscape Nurseryman strength assessed 02/12/22: Landscape Nurseryman Strength-Dynamometer (pounds)-Right Hand Handgrip Right trial 1: 45 Handgrip Right trial 2: 50 Handgrip Right trial 3: 46 [address] Landscape Nurseryman Strength-Dynamometer (pounds)-Left Hand Handgrip Left trial 1: 55 Handgrip Left trial 2: 60 Handgrip Left trial 3: 54 [address]rip Left Av.33 Skin and Related Structure Functions: Skin General Assessment Additional Comments: bandage on sacrum and proximal R thigh, see nursing notes for details Sitting Posture General Assessment: No problem noted Standing Posture Additional Standing Posture Comments: stands w/ flexed posture with fatigue Areas of Occupation and Performance Skills Basic Activities of Daily Living Feeding: Set-up A, able to self-feed with use of fork and spoon Oral Hygiene: Set-up A, in stance with min contact A Upper Body Dressing: Set-up A and extra time Pants and Underwear: Mod-Max A to thread underwear and pants, pt hikes underwear and pants in stancewith min contact A and extra time Footwear: Max A to don socks, shoes and brace Toileting: Set-up A with urinal, pt able to void and hold urinal when seated. Did not have a BM during OT so not assessed; please see nursing notes. Bathing: Supervision with use of shower chair, min contact A sit>stand Toilet Transfer: Min contact A with arm rails Tub/Shower Transfer: Min contact A, transfer bench, grab bars Functional Mobility: Min contact A and use of 4WW, hand hold A without use of walker Instrumental Activities of Daily Living Medication Management: Total A from spouse Finance/Money Management: Total A from spouse Meal Prep: Total A from spouse Housework/Laundry: Min contact A in stance to complete laundry tasks (loading washer, folding clothes) Patient/Family Education: Topics: recommendations for freezing gait, counseling/therapy services, self- feeding recommendations Activity/Work/Community: Activity/energy conservation, Activity modification, Body mechanics Safety: Safety, Fall prevention Therapy Specific: Community resources Learner: Patient, Family Method: Verbal, Demonstration Barriers to Learning: Cognition, Language Outcome: Verbalized understanding, Returned demonstration, Needs practice, Needs reinforcement Team Communication Notified: Nurse When: Prior to therapy session By: [id number] communication About: d/c education ASSESSMENT: Timbo Su is a 66 y.o. male admitted on 02/10/2022 due to functional limitations s/p left MCA territory infarct secondary to Parkinson's Disease with deep brain stimulator in place. He initially presented to rehabilitation with decreased mobility, impaired sitting/standing balance, decre ased midline awareness, language deficits, decreased auditory processing, impaired visual spatial processing, and impaired cognition, impacting his ability to independently complete self-care, household management, and leisure activities. Prior to admission, the patient was independent in all aspects of ADL and IADL. Notable gains this rehab stay include improved sitting/standing balance, increased midline awareness, improved communication and auditory processing, improved strength and endurance with functional mobility and transfers. The patient has benefited from OT at an acute rehab level to reach a min-mod A level for ADL and IADL. Patient will require intermittent physical level of assistance for dressing, grooming, showering, self-feeding, functional mobility and functional transfers upon discharge. Pt/caregiver have been educated on OT recommendations related to ADL and IADL. Plan for home health follow-up services after d/c from acute rehab. Short Term Goals: Short Term Goals: Not Applicable (due to short ELOS) Longterm Goals: Time Frame: 10 days Goal: Patient will transfer on/off handicap height toilet with S and grab bars Status: Progressing, Discontinue Comments: min contact A Goal: Patient will complete toileting task with supervision Status: Met, Discontinue Goal: Patient will complete UB dressing with intermittent min assist Status: Met, Discontinue Goal: Patient will complete LB dressing with 1 person assist Status: Met, Discontinue Goal: Patient will shower with supervision and set-up assist using seat and grab bars Status: Met, Discontinue Comments: min contact A sit>stand when showering Goal: Patient/spouse will verbalize understanding of team recommendations regarding incontinence management Status: Met, Discontinue Goal: Patient will require supervision for functional mobility within BADL Status: Met, Discontinue Goal: Patient will compete grooming tasks with supervision from stance per improved standing balance Status: Discontinue Comments: min contact A in stance Goal: Patient/spouse will verbalize understanding of fall prevention recommendations Status: Met, Discontinue Goal: Patient/spouse will be independent with HEP for UE strengthening to improve overall strength Status: Discontinue PLAN: Patient/Family Education: Discharge planning, Family/caregiver education, Recommendations, Role of physical therapy/occupational therapy/rehabilitation, Patient education, Falls Prevention, Safety Recommended Discharge Destination: Home with family support/supervision Therapy Specific Services: Home therapy, Occupational therapy Equipment Recommended: Patient has all necessary equipment (4 wheeled walker, shower chair, grabs inshower and next to toilet, hospital bed with trapeze) Vijaya Cristobal, 02/22/2022, 12:15 Associated attestation - Dulce Maria Mobley OT - 02/22/2022 [id number] EDT I was present and supervised Occupational Therapy interventions for this patient. I have read and agree with the note as written. Navneet Contreras Heather, PT - 02/21/2022 1518 EDT [facility] Rehabilitation Therapy Inpatient Rehabilitation [facility] Physical Therapy Discontinue/Discharge Note Date of Service: 02/21/2022 SUBJECTIVE: we might come to visit when there's carpet, the chair..stuck OBJECTIVE: In this reporting period 02/10/22 to today, the patient has been seen for physical therapy services. Please refer to the physical therapy notes for specifics on the patient's treatment sessions. Interventions Completed Today: Start time: 1330 Total Therapy Minutes: 60 minute(s) Interventions Completed Today: Therapeutic activity: Pt reports he used to go out to eat frequently but recently has stopped due to feeling conscientiousabout getting in/out from a table. Phone call placed to to clarify areas of difficulty: navigating w/ walker, repositioning chair. -discussed ambulating in w/o the walker for ease of access and then pulling chair out and having pt walk up to table edge, then sit. -sit<>stand practice, standing by edge of table still difficult and may mean pushing table fwdto allow pt to stand. -Educated also to stand up fully, not relying on UE support on table-resulting in increased difficulty sidestepping/repositoning. Neuromuscular re-education: The Wilson Balance Scale (BBS)^ is a 14-item objective measure designed to screen balance in adult populations. Balance is one domain of fall risk. As the score decreases, the patient may exhibit more balance deficits putting them at increased risk for falling. (Tonie, 2008, Erwin, 2004, Jennifer, 2016) 1. Sitting to standing 3 2. Standing unsupported 4 3. Sitting unsupported feet on floor 4 4. Standing to sitting 3 5. Transfers 3 6. Standing unsupported with eyes closed 0 7. Standing unsupported with feet together 0 8. Reaching forward with outstretched arm 2 9. ground support agent object from floor 3 10.Turn look behind over left/right shoulder 2 11.Turn 360 degrees 1 12.Stool touch 1 13.Standing unsupported one foot in front 0 14.Standing on one leg 0 Total 26/56 Age/gender normative values for community dwelling elders (Slava, 2002) Age Gender 95% CI 60-69 Male 55-56 60-69 Female 54-56 70-79 Male 52-56 70-79 Female 52-55 80-89 Male 51-54 80-89 Female 49-52 The minimal detectable change (MDC-95%) for patients with acute stroke (< 44 days from onset of stroke) is 6.9 points (Xavier, 2001). The minimal detectable change (MDC-95%) for patients with chronic stroke (> 6 months) is > 5 (Lisa, 2012) to > 7 points (Geneva, 2008). Gait Training: Pt ambulated x 600 ft, x 200 ft with min contact x 1. Gait speed obtained see below. Cues to pt to stop and reset when steps becoming quick with decreased step length and foot clearance. Wilson Balance Score (n/56): 26 Gait Speed - Distance (m): 10 Gait Speed - Time (sec): 16.8 Gait Speed - Velocity (meters/sec): 0.6 meters/sec Relevant Objective Findings: Arousal, Attention, and Cognition: Arousal/Alertness: Alert Orientation Level: Oriented X 4 Following Commands: Follows one step commands Following Commands Comments: consistently following 1 step commands in functional context. Some breakdown of command following with novel instructions Voice and Speech Functions: Patient presents with receptive aphasia, Patient presents with expressive aphasia Voice and Speech Comments: Expressive>receptive language impairment. Very difficult to understandwith dysarthric speech and difficulty with word finding, able to follow most simple commands with time Cardiopulmonary: Integumentary/Anthropometric: Skin General Assessment Additional Comments: bandage on sacrum and proximal R thigh, see nursing notes for details Sitting Posture General Assessment: No problem noted Standing Posture Additional Standing Posture Comments: stands w/ flexed posture with fatigue Range of Motion and Joint Integrity: General Assessment Range of Motion Additional Comments: R DF to neutral, R foot rests in inverted position Muscle Performance: Strength Additional Comments: grossly 5/5 through BLEs except following: no active R ankle eversion,3+/5 ankle dorsiflexion with associated inversion, BUEs grossly at least 4/5 throughout see OT notesfor details Sensation, Reflexes, and Nerve Integrity Sensory Function Additional Comments: attempted sensory evaluation of LEs but results inconsistent ?command following/communication barrier with aphasia. Pt's reports pt has peripheral neuropathy,was perscribed an AFO for his RLE as this has gotten very severe resulting in his RLE inverting all the time and unsafe to ambulate without Hearing: Hard of hearing Additional Comments: vs decreased auditory processing, required repetition of information, increasedvolume Neuromotor Function/Development: Balance, Mobility, and Gait: Balance: Balance: Static Sitting Balance Static Sitting Balance: Good (can weight shift when challenged to maintain posture) Level of Assistance: Independent Dynamic Sitting Balance Dynamic Sitting Balance: Good (minimal risk for falls, patient self corrects instability) Additional Comments: some hesitancy still with increased fwd lean but improved from inital evaluation Static Standing Balance Static Standing Balance: Good (patient able to maintain balance without handhold support, limited postural sway) Patient able to stand upright independently for: 2 minutes, with eyes closed LOB occurs near immediately in posterior direction Dynamic Standing Balance Dynamic Standing Balance: Fair (patient accepts minimal challenge and is able to maintain balance while turning head/trunk) Protective Reactions: Absent Additional Comments: LOB tends to occur in posterior direction Wilson Balance Score (n/56): 26 Wilson Balance Score (n/56): 26 Bed mobility: Sit->supine: independently with flat bed and rails. Supine->sit: with supervison, cues and assistance of 1 with flat bed and rails. Transfers: Bed < > Chair: stand-step with min contact assist of 1 Wheelchair: NA Gait: The patient ambulates with min contact assist of 1 using no device for 250+ feet. Gait deviations: flexed posture, short shuffling steps, propulsive gait with fatigue Stairs: Patient negotiates with min contact assist of 1 up and down 18 stairs with 2 rails. Wilson Balance Score (n/56): 26 Gait Speed - Distance (m): 10 Gait Speed - Time (sec): 16.8 Gait Speed - Velocity (meters/sec): 0.6 meters/sec Self-Care, Home Management, Work, Leisure: Additional information may be available in the medical record. Patient/Family Education: Topic: Restaurant accessibility Learner: patient/family Method: verbal Barriers to Learning: aphasia Outcome: verbalized understanding Team Communication: With OT re pt status ASSESSMENT: The patient presented with a physical therapy diagnosis of: Impaired mobility which is consistent with the medical diagnosis of: L MCA CVA with h/o parkinsons and peripheral neuropathy Physical therapy examination revealed the following impairments: endurance, motor control, sensation, balance Physical therapy examination reveals the following impairments: aphasia expressive>receptive These impairments contributed to the following activity limitations: gait, functional mobility/transfers and participation restrictions of: community integration, home management, family relations, recreation and leisure, play/running, participate with peers, social life The patient has made progress in the areas of : overall mobility with reduced physical assistance, ambulating with assist of one. Significant improvement in gait as demosntrated by improved gait speed,improved balance as demonstrated by improved WILSON balance test. At time of discharge Marcell continues to present significant mobility deficits more consistent with his h/o Parkinson disease and peripheral neuropathy Therapy services in this setting have been discontinued secondary to: goals met, the patient has been or will be discharged from the hospital The patient: requires home health services as next level of care to provide continued rehabilitationservices within the safety of the home setting. The patient: will benefit from home health and progression to outpatient services when ready at thistime to primarily address continued mobility deficits that are consistent with parkinson presentation. They may also benefit from education on community/video based PD programs when ready to participate. Short-Term Goals: Time Frame: NA due to length of stay Long-Term Goals: Time Frame: 7-10 days Goal: pt will be able to perform bed mobility with modified independence Status: Discontinue Comments: supervision Goal: pt will be able to perform stand step transfers with min assist of one Status: Met Goal: pt will be able to ambulate with supervision and pt's own RW Status: Met Comments: focus in therapy on ambulation without device with incidental touching assist Goal: pt will be able to ambulate outdoors with walker x 10 minutes continously with min assist of 1 Status: Met Goal: pt will improve WILSON balance score by 14+ points Status: Met Goal: pt will be able to perform car transfer with min asisst of 1 Status: Met PLAN: Discontinue physical therapy services Recommended Discharge Destination: Home with family support/supervision Therapy Specific Services: Home therapy with supervision Equipment Dispensed Comments: none Jessie Park, PT 02/21/2022 20:29 Jr Ku - 02/21/2022 [id number] EDT CM spoke with spouse, Bela, will be here at [facility] at 0800 on 02/22 for discharge of patient and any further education needed. A Maritza 1098 Tequila Llamas MD - 02/21/2022 1323 EDT Physiatry Progress Note Admit Date: 02/10/2022 Hospital Day: LOS: 11 days Date of Service: 02/21/2022 Chief Complaint: Left MCA territory infarct: Posterior temporal lobe and parietal lobe. Subjective: limited by aphasia. currently expressing no concerns. Denies headache, pain, respiratoryor GI complaint. Current Facility-Administered Medications Medication Route Frequency ??? acetaminophen (TYLENOL) tablet 650 mg oral Q4H PRN ??? aspirin chewable tablet 81 mg oral DAILY ??? atorvastatin (LIPITOR) tablet 80 mg oral DAILY ??? bisacodyL (DULCOLAX) EC tablet 10 mg oral Daily PRN Or ??? bisacodyL (DULCOLAX) suppository 10 mg rectal Daily PRN ??? calcium carbonate (TUMS) 200 mg calcium (500 mg) per chewable tablet tablet,chewable 1 Tablet oral QID PRN ??? carbidopa-levodopa (SINEMET) 25-250 mg per tablet 1 Tablet oral 4 times per day ??? DULoxetine (CYMBALTA) delayed release capsule 60 mg oral DAILY ??? entacapone (COMTAN) tablet 200 mg oral 3 times per day ??? gabapentin (NEURONTIN) capsule 100 mg oral BID ??? glucagon injection 1 mg intramuscular PRN ??? metFORMIN (GLUCOPHAGE) tablet 500 mg oral DAILY (BREAKFAST) ??? metoprolol SUCCinate (TOPROL-XL) tablet 50 mg oral DAILY ??? polyethylene glycol 3350 (MIRALAX) packet 17 g oral BID ??? senna (SENOKOT) tablet 2 Tablet oral QHS Objective/Physical Exam: VS: BP (!) 142/85 (BP Cuff Location: Right arm, BP Patient Position: Semi fowlers) Pulse 68 Temp36.3 ??C (97.3 ??F) (Tympanic) Resp 16 Ht 182.9 cm (72.01) Wt 96.1 kg (211 lb 12.8 oz) [id number]% BMI 28.72 kg/m?? Weight: Weight : 96.1 kg (211 lb 12.8 oz) Exam: Exam is stable 02/21/2022 HEENT: AT/NC, no clear visual field cut. Lungs: Respirations even and unlabored at rest Abdomen: benign Extremities: Range of motion within normal limits. Calves soft nontender. Neurologic: Alert, oriented to hospital. He has a moderate dysarthria with a expressive aphasia and receptive component. processing is slowed . Simple naming intact and follows simple motor commands. Yes/no appears accurate for simple questionsin context. Motor: Grossly 5/5 except R right ankle in AFO (h/o foot drop) Sensation: No focal sensory loss, but aphasia does limit some testing. Labs: I have personally reviewed CBC: Lab Results Component Value Date WBC 9.48 02/18/2022 RBC 4.84 02/18/2022 HGB 14.2 02/18/2022 HCT 41.8 02/18/2022 MCV 86 02/18/2022 MCH 29.3 02/18/2022 MCHC 34.0 02/18/2022 PLT 193 02/18/2022 NEUTROABS 5.80 02/18/2022 BMP: Lab Results Component Value Date NA 140 02/18/2022 K 4.4 02/18/2022 CL 103 02/18/2022 CO2 30 02/18/2022 BUN 15 02/18/2022 CREATININE 0.88 02/18/2022 CALCIUM 9.8 02/18/2022 MG 1.5 (L) 02/05/2022 PHOS 3.6 02/05/2022 LABALBU 5.1 (H) 02/18/2022 CT head 02/18/22 IMPRESSION: Redemonstrated evolving left MCA territory infarcts without associated hematoma- type hemorrhage. Irregular hyperattenuation within the region of infarct could represent a small amount of petechial hemorrhage, similar in distribution to prior but slightly more prominent. No new infarct. Assessment/Problems: (update problem list daily as appropriate) Patient Active Problem List Diagnosis Date Noted ??? *(H)History of recent stroke 02/10/2022 Priority: Medium ??? (H)Acute CVA (cerebrovascular accident) ([facility] ([facility]) 02/04/2022 Priority: Medium ??? Stroke ([facility]) ([facility]) 02/04/2022 Priority: Medium ??? (H)Arterial ischemic stroke, MCA (middle cerebral artery), left, acute ([facility]) ([facility]) 02/04/2022 Priority: Medium ??? (H)Aphasia 02/04/2022 Priority: Medium ??? (H)Dysarthria 02/04/2022 Priority: Medium Plan: 1. Left MCA stroke 02/04/2022 s/p mechanical thrombectomy. He has residual aphasia, with impaired mobility and self-cares. Appropriate for acute level rehabilitation including PT, OT, PLANT ANATOMIST to address mobility, self-cares, cognition and, communication and swallowing function. Continue 24-hour rehabilitation nursing for self care deficits and education. Dysphagia level 4 diet, monitor for secondary aspiration Continue aspirin 81 mg daily and atorvastatin (increased to 40 mg daily) for stroke prophylaxis. Episodes JAVED and worsened speech on 02/12 and 02/18, prompting ED evals with no sig changes on head CT, does show small amount of petechial hemorrhage within infarct. Has continued to have fluctuating course with motor and speech function, suspect parkinson's is playing a role in this. 2. Chronic atrial fibrillation: Continue metoprolol 50 mg twice daily for rate control. He has not been on anticoagulation previously due to fall risk. Reviewed with patient and risks and benefitsand they would like to start anticoagulation. Recommend review at follow up with primary care initiation of anticoagulation pending stable imaging. 3. Parkinson disease: S/p DBS: Continue carbidopa/levodopa 25-250 mg 4 times daily and encaptone 200Mg 3 Times Daily. Followed by neurology [facility]. 4. Right foot drop: Uses a solid AFO with subtalar strap at baseline. Monitor skin for any breakdownwith wearing. 5. 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 Internal medicine consulting. Currently on Metformin 500mg daily. Continue gabapentin for diabetic polyneuropathy dysesthetic discomfort. 6. Chronic constipation: Per this is common at home. Continue with MiraLAX, senna. Suppository or Dulcolax tab available as needed. Tequila Llamas MD 02/21/2022 13:23 ills, Ladan Freed MD - 02/21/2022 0949 EDT Images from the original note were not included. MEDICINE FOLLOW-UP Date of service: 02/21/2022 PCP: Griselda Stanley CHIEF COMPLAINT: Left MCA ischemic stroke; Parkinson's Disease with deep brain stimulator in place; atrial fibrillation not previously anticoagulated due to falls risk; diabetes mellitus type 2 SUBJECTIVE: Marcell did a lot of walking and climbed stairs yesterday. was in for family training and was pleased with his progress to date. He says his legs feel tight this am - suspect related to the increased activity. feeling comfortable with dc home tomorrow, on report. BG nice on current regimen. No fever, cough, dyspnea, GI or issues. OBJECTIVE: BP (!) 142/85 (BP Cuff Location: Right arm, BP Patient Position: Semi fowlers) Pulse 68 Temp 36.3 ??C (97.3 ??F) (Tympanic) Resp 16 Ht 182.9 cm (72.01) Wt 96.1 kg (211 lb 12.8 oz) SpO2 98% BMI 28.72 kg/m?? Vital signs are stable and the patient is afebrile. Physical exam is stable. Flat affect (unchanged) but able to answer questions with deliberate effort. No distress. Respirations even, unlabored. Motor/sensory exam stable. MEDICATIONS: Current Facility-Administered Medications Medication Route Frequency ??? acetaminophen (TYLENOL) tablet 650 mg oral Q4H PRN ??? aspirin chewable tablet 81 mg oral DAILY ??? atorvastatin (LIPITOR) tablet 80 mg oral DAILY ??? bisacodyL (DULCOLAX) EC tablet 10 mg oral Daily PRN Or ??? bisacodyL (DULCOLAX) suppository 10 mg rectal Daily PRN ??? calcium carbonate (TUMS) 200 mg calcium (500 mg) per chewable tablet tablet,chewable 1 Tablet oral QID PRN ??? carbidopa-levodopa (SINEMET) 25-250 mg per tablet 1 Tablet oral 4 times per day ??? DULoxetine (CYMBALTA) delayed release capsule 60 mg oral DAILY ??? entacapone (COMTAN) tablet 200 mg oral 3 times per day ??? gabapentin (NEURONTIN) capsule 100 mg oral BID ??? glucagon injection 1 mg intramuscular PRN ??? heparin injection 5,000 Units subcutaneous Q12H ??? metFORMIN (GLUCOPHAGE) tablet 500 mg oral DAILY (BREAKFAST) ??? metoprolol SUCCinate (TOPROL-XL) tablet 50 mg oral DAILY ??? polyethylene glycol 3350 (MIRALAX) packet 17 g oral BID ??? senna (SENOKOT) tablet 2 Tablet oral QHS LABS: Last labs: Labs: I have personally reviewed CBC: Lab Results Component Value Date WBC 9.48 02/18/2022 RBC 4.84 02/18/2022 HGB 14.2 02/18/2022 HCT 41.8 02/18/2022 MCV 86 02/18/2022 MCH 29.3 02/18/2022 MCHC 34.0 02/18/2022 PLT 193 02/18/2022 NEUTROABS 5.80 02/18/2022 BMP: Lab Results Component Value Date NA 140 02/18/2022 K 4.4 02/18/2022 CL 103 02/18/2022 CO2 30 02/18/2022 BUN 15 02/18/2022 CREATININE 0.88 02/18/2022 CALCIUM 9.8 02/18/2022 MG 1.5 (L) 02/05/2022 PHOS 3.6 02/05/2022 LABALBU 5.1 (H) 02/18/2022 Blood Glucoses: ASSESSMENT/PLAN: 1. Left MCA ischemic stroke status post thrombectomy with satisfactory flow on 02/05/2022 Cont aspirin + high intensity statin Cont PT/OT/PLANT ANATOMIST Cont strict falls precautions, delirium prevention measures, aspiration precautions 2. Diabetes mellitus type 2. Reviewed prior documentation and previous visits in outpatient clinic and it looks like he took metformon 1000 bid at home prior. For now, given his current BG: Cont metformin 500 daily - BG well controlled on this currently DC'd supplemental aspart SSI Will adjust metformin as needed to keep BG around 150 without lows 3. Atrial fibrillation not previously anticoagulated Consider anticoagulation about 14 days after initial stroke, but falls risk in the past had prevented its use in the past. Also with petechial hemorrhage on head CT, so want to hold off for now Continue metoprolol 50 twice daily 4. Parkinson's disease Has been continued on his home Parkinson's meds which include: Sinemet 25???250: 1 tablet 4 times daily Entacapone 200 mg 3 times daily 5. Leg fatigue - suspect related to increased activity yesterday Tylenol prn Ice or heat prn ?? I reviewed prior neurology notes from [facility] and he takes gabapentin (100 every day) and cymbalta (60 bid) at home ?? DVT prophylaxis: Can dc heparin as he is moving around well at this point. The patient is medically stable and tolerating the present level of the rehab program. The patient is to continue in the rehabilitation program. Ladan Álvarez MD Robert Wadsworth - 02/21/2022 0831 EDT Speech-Language Pathology Daily and Current Progress Note PLANT ANATOMIST Diagnosis: Aphasia, Dysarthria, Apraxia, and Dysphagia, oral phase Medical Diagnosis: L MCA CVA Date of Onset: 02/04/22 Date of Referral: Admit to rehab 02/09/22 Subjective/Objective SUBJECTIVE: I don't think I can do it Go home tomorrow OBJECTIVE: Date of Service: 02/21/2022 Start Time: 1000 Total Therapy minutes: 60 minute(s) language tx Patient Interview: Patient's preferred name is Marcell. Marcell is lives in [place], [place] with his , Arlyn. 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 He is originally from [place], [place] but moved to [place] when he was 21. He has one adult son, Marcell Pack, a [id number], and a granddaughter, Bala, who live in [place]. Marcell's highest level of schooling is 12th grade. Per patient's , patient did not seek speech therapy prior to this hospitalization as it was not deemed necessary; for example, stated that patient was able to carry on a conversation in a crowded room without difficulty and order meals at restaurants. Current presentation of severely reduced intelligibility is a significant departure from patient's baseline. Current Treatment Objectives: Verbal Expression: Goal #1: The patient will generate automatic sequences (counting, days of the week) with 90% accuracy. 02/14: Patient attempted to count from 1-20 aloud. Patient presented with frequent semantic paraphasias (e.g., 1, 2, 3, 4, 5, 36, 37, 38...) in all trials. Strategies of reading written numbers aloud or saying numbers in unison with PLANT ANATOMIST were not successful in reducing paraphasias. Patient did recite days of the week provided written cues of the first letter of each day and the full words of Saturday-Saturday. Patient presented with frequent neologistic paraphasias (squickay) in trials with less cueing. 02/17: Couting 1-21: 95% accuracy (x1 repetition) with accuracy increased to 100% with phonemic cue. KAEL: 3/ independently (43%), increased to 7/ with phonemic cues/reframing as cloze task. 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 02/21: KAEL: 5/7 independently (71%), increased to 7/7 with repetition NADIYA: 3/12 independently (25%), increased to 6/12 with written cues, increased to 11/ with written and phonemic cues. Goal #2: The patient will describe a word utilizing semantic feature analysis (SFA) or any appropriate word retrieval strategy with 90% accuracy??provided moderate verbal and written cues for word retrieval. 02/19: In the context of an SFA task, pt stated several one-word utterances describing various attributes of items: Cell phone: FUNCTION: call, talk, text; ATTRIBUTES: square, small; LOCATION: everywhere ASSOCIATION:n/a 02/20: In the context of an SFA task, pt stated several one-word utterances describing various attributes of items: Tissues: FUNCTION: clean, sneeze; ATTRIBUTES: paper, white; LOCATION: bathroom ASSOCIATION: n/a Mask FUNCTION: protect (multiple choice); ATTRIBUTES: blue; LOCATION: pharmacy ASSOCIATION: germs Goal #3: Given a specific category, the patient will accurately name 5 items within it with 90% accuracy. 02/14: The patient names two items in a category with 100% success (10/10); he also names three items in a category with 100% success (10/10). He benefited from maximal cues to draw and use an alphabet board to spell when experiences difficulty with word-finding. The patient presented with frequent phonemic paraphasias during this task. 02/17: The patient names two items in a category with 100% accuracy. Patient was able to increase number of items within a category given written cues and additional processing time. Animals: The patient generated x6 items given written cues Tools: Generated x 4 items given written cues and phonemic cues; frequent literal paraphasias noted 02/21: The patient names 5 items in a category with 100% accuracy given very minimal phonemic and visual cues. x1 neologism noted (michelle). Categories: fruit, clothing, [place] states, [place] towns, forest animals, things in a garden. Goal #4: The patient will provide a single word to complete a phrase with 90% accuracy. 02/13: Patient generated single word pairs to opposites (e.g., salt and , black and ____) with 70% accuracy (02/18) provided maximal gestural, verbal, and written cues. Writing down stimuli increase accuracy and decreased pt frustration significantly. 02/21: Pt generated single wort pairs to opposites with 80% accuracy (12/15) with minimal phonemic cues. In responsive naming task, pt named an item based off of a verbal description with 100% accuracy (15/15) independently. Goal #5: The patient will produce >10 utterances of >5 words during a 50 minute PLANT ANATOMIST session independently. 02/16: Pt performance of a Verb Network Strengthening Treatment (VNeST) task below: Verb Production Type Response # of Words 1. drive VNeST 1. 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 I drive my truck 3. My drives her car 4. My brother drives his bike 5. My drives her car to the grocery store after her work because she needs groceries. 1. 4 2. 4 3. 5 4. 5 5. 16 02/19: Pt performance of a Verb Network Strengthening Treatment (VNeST) task below: Verb Production Type Response # of Words 1. carry VNeST Dalia carries a baby. Bala carries toys. Charlotte carries toys. Bala carries toys around my house on holidays to play with me. 4 3 3 12 Motor Speech: Goal #1: The patient will be 90% intelligible to familiar listeners during spontaneous conversation using compensatory strategies of speaking loudly and slowly. 02/14: The pt effectively used compensatory strategy of speaking loudly with moderate success for increased intelligibility. Visual cue of SAY IT LOUD increased pt's use of strategy. 02/15: The patient independently noted intelligibility strategy of SAY IT LOUD when clinician entered room. Patient benefited from minimal cueing throughout today's session to increase volume for improved intelligibility. 02/17: The patient with reduced intelligibility across all verbal tasks today. Intelligibility decreased as a function of word length. Suspect both hypokinetic dysarthria and literal paraphasias contribute to decreased intelligibility. Patient approximately 50% intelligible to this unfamiliar listener at sentence level. Patient continues to benefit from education regarding speech intelligibility strategies. Augmentative-Alternative Communication: Goal #1: The patient will produce 10+ meaningful utterances using an AAC device during a 60-minute PLANT ANATOMIST session provided minimal cues. 02/20: PLANT ANATOMIST supported pt navigation through AAC glen TouchChat[employer]. With maximal cueing, pt produced 4 meaningful utterances using the AAC glen. Pt expressed interest in continued work with AAC to supplement verbal communication treatment. Patient/Family Education: Topic: Patient/Family education and training was completed today including understanding aphasia, understanding apraxia, rehab goals, and discharge plan (e.g., to home health PLANT ANATOMIST services). Learner: patient Method of Education: Verbal and Written Barriers to Learning/Education: patient auditory comprehension impairments Patient: needs further instruction and education Family: , Arlyn, verbalized understanding Assessment/Plan ASSESSMENT/CLINICAL IMPRESSIONS: Mr. Sharlene Faith is a male 66 y.o. with PD admitted with LMCA occlusion s/p thrombectomy. Today Marcell demonstrated increased verbal output as compared to recent sessions. He produced words ingenerative and responsive naming tasks with 80%-100% accuracy with minimal phonemic cueing ranging to independence. Pt continues to demonstrate difficulty producing automatic sequences, even with maximal cues. Varied patient performance across sessions may be related to medication schedule and cycles of Parkinson's symptoms severity. 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 Speech is non-fluent with evidence of anomia and phonemic paraphasias. Confrontation, generative, and responsive naming are impaired. Pt's strength in receptive language is noted, including following commands, answering yes/no questions, and reading at the word level. Reading appears to be intact at the word-level, though it sharply declines functionality at the sentence-level. Patient currently needs assistance communicating basic wants and needs and directing his medical care. 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 He also demonstrates inconsistent errors and deteriorating articulation when repeating words 5+ times, suggesting Apraxia of Speech (AOS). Marcell is 68% intelligible at both the word level and the sentence level to an unfamiliar listener. Intelligibility decreases as a function of word/phrase length. Speaking loudly is an effective strategy to increase Marcell's intelligibility. Given patient's age, independence prior to admission, and social/occupational demands, he would benefit from intensive PLANT ANATOMIST intervention. Based on the patient's premorbid level of functioning, medical diagnosis, comorbidities and patient/family support, the patient's prognosis is considered good. Previous evaluation of pt's swallow function indicated pt currently presents with a very mild oral phase dysphagia characterized by prolonged mastication and bolus formation. Etiology of dysphagia is mechanical d/t pt's current lack of teeth while he is going through process of acquiring dentures. No overt s/sx of laryngeal penetration observed during evaluation. Patient remains at low risk of aspiration at this time. Prognosis for improvement in swallow function is judged to be excellent at this time secondary to upcoming acquisition of dentures. Anticipate patient will tolerate Dysphagia 4 diet with thin liquids; reevaluation appropriate if pt acquires dentures while in this setting. Functional Communication Measures ([place] [employer], 2002). The Functional Communication Measures (FCM???s) are a series of 7 point rating scales, ranging from least functional (Level 1) to most functional (Level 7). They have been developed by SUZANNA to describedifferent aspects of patient???s functional communication and swallowing abilities over the course of PLANT ANATOMIST intervention. ?? Spoken Language Comprehension Level 6: Individual is able to understand communication in most activities, but some limitations in comprehension are still apparent in vocational, avocational, and socialactivities. The individual rarely requires minimal cueing to understand complex sentences. The individual usually uses compensatory strategies when encountering difficulty. Spoken Language Expression Level 3: The communication partner must assume responsibility for structuring the communication exchange, and with consistent and moderate cueing, the individual can produce words and phrases that are appropriate and meaningful in context. Motor Speech Level 3: 3The communication partner must assume primary responsibility for interpretingthe communication exchange, however, the individual is able to produce short consonant-vowel combinations or automatic words intelligibly. With consistent and moderate cueing, the individual can produce simple words and phrases intelligibly, although accuracy may vary. Augmentative-Alternative Communication Level 3: The individual usually requires moderate cueing and additional time to use augmentative-alternative communication to convey simple messages related to personal wants/needs with familiar communication partners, although accuracy may vary. The communication partner must assume responsibility for structuring most communication exchanges. GOALS: Blanket Binder Goals: Projected Functional Communication Measures at discharge: Spoken Language Expression Level 3: The communication partner must assume responsibility for structuring the communication exchange, and with consistent and moderate cueing, the individual can produce words and phrases that are appropriate and meaningful in context. Augmentative-Alternative Communication Level 3: The individual usually requires moderate cueing and additional time to use augmentative-alternative communication to convey simple messages related to personal wants/needs with familiar communication partners, although accuracy may vary. The communication partner must assume responsibility for structuring most communication exchanges. ?? Short Term Goals: Verbal Expression: Goal #1: The patient will generate automatic sequences (counting, days of the week) with 90% accuracy. Goal #2: The patient will describe a word utilizing semantic feature analysis (SFA) or any appropriate word retrieval strategy with 90% accuracy??provided moderate verbal and written cues for word retrieval. Goal #3: Given a specific category, the patient will accurately name 5 items within it with 90% accuracy. Goal #4: The patient will provide a single word to complete a phrase with 90% accuracy. Goal #5: The patient will produce >10 utterances of >5 words during a 50 minute PLANT ANATOMIST session independently. New Goal Area Augmentative-Alternative Communication: Goal #1: The patient will produce 10+ meaningful utterances using an AAC device during a 60-minute PLANT ANATOMIST session provided minimal cues. Motor Speech: Goal #1: The patient will be 90% intelligible to familiar listeners during spontaneous conversation using compensatory strategies of speaking loudly and slowly. PLAN/RECOMMENDATIONS: Continue PLANT ANATOMIST services: Patient will be seen for a minimum of 5x/week @ 50 minutes. ?? DYSPHAGIA: Recommend upgrade to dysphagia 4, thin liquids - pt is in process of acquiring dentures, but currently has very few teeth. Continue general aspiration precautions (HOB elevated, slow rate, small/single bites/sips, alternateliquids/solids) ?? Healthcare Communication Access Recommendations Patient has mild Comprehension and moderate Expression impairments; pt is hard of hearing at baseline ?? Please support access to communication and healthcare information by doing the following: Plan in extra time when preparing to speak to Marcell Offer Marecll written cues as needed. ?? Supported Comprehension: ?? Supplement communication with gestures, writing, pictures ?? Be prepared to repeat and rephrase, especially as pt is hard of hearing. ?? Supported Expression: ?? Verbalize two choices or ask yes/no questions. ?? Ask closed ended questions. ROBERT WADSWORTH 02/21/2022 12:50 Vijaya Mishra - 02/21/2022 0743 EDT [facility] Rehabilitation Therapy Inpatient Rehabilitation [facility] Occupational Therapy Encounter Note Date of Service: 02/21/2022 SUBJECTIVE: I wish it was today re: leaving tomorrow OBJECTIVE: Interventions Completed Today: First Session Start time: 0800 Total Therapy Minutes: 60 minute(s) Interventions included: Self-Care/Home Management *Focus on progressing participation self-confidence and independence with self- care activities and self-feeding - Pt received in bed, on the phone with at beginning of session - Nursing in to [facility] Bed mobility: semi-fowlers>seated EOB with supervision and extra time Dressing UB: set-up A, pt donned shirt with extra time and intermittent A for orientation LB: total A to thread brief and shorts, sit>stand with min A, pt able to hike brief and shorts with extra time. Completed LB dressing x2 d/t toileting incident. See below Footwear: total A to don shoes and brace d/t priority of self-feeding during session Toileting - Pt reported needing to use the urinal - Ambulatory transfer bed>w/c with min contact A, 4WW and verbal cues to sequence steps - Once seated, set-up A with urinal, pt able to hold while voiding although leaked onto shorts Self-feeding - Pt seated in w/c, set up at table with cooked spaghetti and two different forks; a plastic fork and a regular fork with plastic handle Pt demonstrated use of regular fork with proper grasp, able to load pasta and twist using B hands and bring to mouth without spillage. Then completed with plastic fork; pt reported use of regular fork was easiest Pt demonstrated use of small spoon with proper grasp, able to scoop cereal and milk x1 rep with minor spillage. Trialed spoon with deeper bowl and wider handle which pt was more successful with, no spillage when bringing to mouth Pt demonstrated use of small spoon with proper grasp, able to scoop pudding and bring to mouth with no spillage Pt able to open cereal container with min A, milk container with min A and pudding container independently Skilled discussion with pt regarding feelings around eating out in public with spouse. Pt reported he feels ready to try it again and has gained more confidence with eating in public. Vital signs: Vital signs have been stable with interventions and were not monitored. Start Time: 0800 Individual Therapy (minutes): 60 Minutes Total Minutes Treatment 1: 60 Patient/Family Education: Topics: recommended utensils for self-feeding Activity/Work/Community: Activity modification, Body mechanics Mobility, Transfers, and Gait: Functional transfers Safety: Safety Learner: Patient Method: Demonstration, Verbal Barriers to Learning: Language Outcome: Verbalized understanding, Returned demonstration, Needs practice, Needs reinforcement Team Communication: Team Communication Notified: Nurse When: Prior to therapy session By: Jitx-fe-detr communication About: pt status, removing [place] cath ASSESSMENT: Marcell demonstrated good tolerance to today's occupational therapy session. Noted proper arts therapist and control when grasping utensils of various sizes. Marcell demonstrated greater success and no spillage when self-feeding with a spoon with a deeper bowl. Recommended using this type of spoon with cereal/ meals that have liquid. Opening containers with peel-off labels still remain challenged by limited fine motor dexterity. Marcell continues to benefit from verbal cues for sequencing steps when transferring, although noted smoother transition when transferring bed>w/c with 4WW. Marcell and spouse are ready for d/c tomorrow. PLAN: Next Session to Include: family education, [employer] resources for support group, recommendations for feeding Vijaya Cristobal, 02/21/2022, 12:50 Associated attestation - Dulce Maria Mobley OT - 02/21/2022 1527 EDT I was present and supervised Occupational Therapy interventions for this patient. I have read and agree with the note as written. Katia Contreras Brian - 02/20/2022 1546 EDT CM note TC to 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 [facility] will follow for DC. RN please call report to [phone]. [facility] Renny Roland MSW Alize Wong, PT - 02/20/2022 1406 EDT [facility] Rehabilitation Therapy Inpatient Rehabilitation [facility] Physical Therapy Encounter Note Date of Service: 02/20/2022 SUBJECTIVE: Pt requesting to show his how he does with stairs. Pt's endorsing that pt's mobility is better than premorbid OBJECTIVE: Interventions Completed Today: Start time: 1300 Total Therapy Minutes: 60 minute(s) Interventions completed today: *Goal of session on pt's assisting with mobility and observing to facilitate d/c to home Therapeutic activities: Transfers - Sit <> stand throughout session from various surfaces with close supervision to occasional min A of 1, able to provide necessary assist D/C planning - reports feeling ready for d/c after pt's session reporting mobility is better than premorbid - Discussed car transfer, pt and decline to complete today, stating they feel comfortable withprior practice for the subaru. Report truck would be difficult, encouraged to work with PT on getting in/out of truck if they desire at home. Gait Training: In Room Tight spaces - Pt ambulated in room, tight spaces, with min A of 1 provided by pt's via SYSTEMS SOFTWARE DESIGNER both in front of pt and at side of pt - Pt ambulated in room bed <> door with upright walker with min A of 1 provided by pt's In [place] - Pt ambulated no device ~300ft with min A of 1, provided by pt's via walking hand in hand, linking elbows, and assist at GB. - Pt ambulated ~300ft, 2x with upright walker with close supervision of 1 provided by therapist initially then pt's on 2nd bout. Outdoors - Pt ambulated outdoors on sidewalks with multiple 90deg turns and cracks in sidewalk with min A of1 provided by therapist. With all walks with upright walker focus on staying within walker, toes inside. Stair Training - # of steps completed: 18 (7.5) steps - Ascend: with step over step pattern - Descend: with step to step pattern - Device/Rail: B rails - Assist: Min A of 1, initially provided by therapist for first 9 steps, and provided assist for 2nd 9 steps Additional information may be available in the medical record. Patient/Family Education: Topic: Re: recommend assist at all times when pt on feet which was agreeable to, cleared to assist with all mobility Learner: patient and family Method: verbal and whiteboard updated Barriers to Learning: none noted Outcome: verbalized understanding Team Communication: With RN re: pt's cleared to assist and whiteboard updated. With OT re: results of family ed. Team rounds discussion re: patient status, progress, and d/c planning ASSESSMENT: Pt's in for family education today and pleased with pt's progress to date, feeling as though mobility is better than premorbid. demonstrates ability to provide assist safely with all mobilityat this time, and has been cleared to assist pt in the room. Pt remains on track for d/c . PLAN: Cont. Per established POC Primary Therapist: Jessie Rodriguez PT 02/20/2022 14:23 ITRenny Roland - 02/20/2022 1030 EDT CM Note CM met the patiens wide at bedside to provide community resources for assistance with general case and care management services available for free via [place] [employer] as well as contact info for the [facility] for support group info as well as info for the [place] [employer] which hold regular support groups in person and via zoom throughout the state. [facility] Renny Roland, MSW Robert Garcia - 02/20/2022 0955 EDT Speech-Language Pathology Daily and Current Progress Note PLANT ANATOMIST Diagnosis: Aphasia, Dysarthria, Apraxia, and Dysphagia, oral phase Medical Diagnosis: L MCA CVA Date of Onset: 02/04/22 Date of Referral: Admit to rehab 02/09/22 Subjective/Objective SUBJECTIVE: He's been feeling really depressed, I think, because he can't talk - pt's , Arlyn OBJECTIVE: Date of Service: 02/20/2022 Start Time: 1100 Total Therapy minutes: 60 minute(s) language tx Patient Interview: Patient's preferred name is Rick. Faith is lives in [place], [place] with his , Arlyn. 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 He is originally from [place], [place] but moved to [place] when he was 21. He has one adult son, Marcell Pack, a [id number], and a granddaughter, Bala, who live in [place]. Marcell's highest level of schooling is 12th grade. Per patient's , patient did not seek speech therapy prior to this hospitalization as it was not deemed necessary; for example, stated that patient was able to carry on a conversation in a crowded room without difficulty and order meals at restaurants. Current presentation of severely reduced intelligibility is a significant departure from patient's baseline. Current Treatment Objectives: Verbal Expression: Goal #1: The patient will generate automatic sequences (counting, days of the week) with 90% accuracy. 02/14: Patient attempted to count from 1-20 aloud. Patient presented with frequent semantic paraphasias (e.g., 1, 2, 3, 4, 5, 36, 37, 38...) in all trials. Strategies of reading written numbers aloud or saying numbers in unison with PLANT ANATOMIST were not successful in reducing paraphasias. Patient did recite days of the week provided written cues of the first letter of each day and the full words of Saturday-Saturday. Patient presented with frequent neologistic paraphasias (squickay) in trials with less cueing. 02/17: Couting 1-21: 95% accuracy (x1 repetition) with accuracy increased to 100% with phonemic cue. KAEL: 3/ independently (43%), increased to 7/ with phonemic cues/reframing as cloze task. 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 Goal #2: The patient will describe a word utilizing semantic feature analysis (SFA) or any appropriate word retrieval strategy with 90% accuracy??provided moderate verbal and written cues for word retrieval. 02/19: In the context of an SFA task, pt stated several one-word utterances describing various attributes of items: Cell phone: FUNCTION: call, talk, text; ATTRIBUTES: square, small; LOCATION: everywhere ASSOCIATION:n/a 02/20: In the context of an SFA task, pt stated several one-word utterances describing various attributes of items: Tissues: FUNCTION: clean, sneeze; ATTRIBUTES: paper, white; LOCATION: bathroom ASSOCIATION: n/a Mask FUNCTION: protect (multiple choice); ATTRIBUTES: blue; LOCATION: pharmacy ASSOCIATION: germs Goal #3: Given a specific category, the patient will accurately name 5 items within it with 90% accuracy. 7/6: The patient names two items in a category with 100% success (10/10); he also names three items in a category with 100% success (10/10). He benefited from maximal cues to draw and use an alphabet board to spell when experiences difficulty with word-finding. The patient presented with frequent phonemic paraphasias during this task. 02/17: The patient names two items in a category with 100% accuracy. Patient was able to increase number of items within a category given written cues and additional processing time. Animals: The patient generated x6 items given written cues Tools: Generated x 4 items given written cues and phonemic cues; frequent literal paraphasias noted Goal #4: The patient will provide a single word to complete a phrase with 90% accuracy. 7/: Patient generated single word pairs to opposites (e.g., salt and , black and ____) with 70% accuracy (02/18) provided maximal gestural, verbal, and written cues. Writing down stimuli increase accuracy and decreased pt frustration significantly. Goal #5: The patient will produce >10 utterances of >5 words during a 50 minute PLANT ANATOMIST session independently. 02/16: Pt performance of a Verb Network Strengthening Treatment (VNeST) task below: Verb Production Type Response # of Words 1. drive VNeST 1. 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 I drive my truck 3. My drives her car 4. My brother drives his bike 5. My drives her car to the grocery store after her work because she needs groceries. 1. 4 2. 4 3. 5 4. 5 5. 16 02/19: Pt performance of a Verb Network Strengthening Treatment (VNeST) task below: Verb Production Type Response # of Words 1. carry VNeST Dalia carries a baby. Bala carries toys. Charlotte carries toys. Bala carries toys around my house on holidays to play with me. 4 3 3 12 Motor Speech: Goal #1: The patient will be 90% intelligible to familiar listeners during spontaneous conversation using compensatory strategies of speaking loudly and slowly. 02/14: The pt effectively used compensatory strategy of speaking loudly with moderate success for increased intelligibility. Visual cue of SAY IT LOUD increased pt's use of strategy. 02/15: The patient independently noted intelligibility strategy of SAY IT LOUD when clinician entered room. Patient benefited from minimal cueing throughout today's session to increase volume for improved intelligibility. 02/17: The patient with reduced intelligibility across all verbal tasks today. Intelligibility decreased as a function of word length. Suspect both hypokinetic dysarthria and literal paraphasias contribute to decreased intelligibility. Patient approximately 50% intelligible to this unfamiliar listener at sentence level. Patient continues to benefit from education regarding speech intelligibility strategies. Augmentative-Alternative Communication: Goal #1: The patient will produce 10+ meaningful utterances using an AAC device during a 60-minute PLANT ANATOMIST session provided minimal cues. 02/20: PLANT ANATOMIST supported pt navigation through AAC glen [employer]. With maximal cueing, pt produced 4 meaningful utterances using the AAC glen. Pt expressed interest in continued work with AAC to supplement verbal communication treatment. Patient/Family Education: Topic: Patient/Family education and training was completed today including understanding aphasia, understanding apraxia, AAC, and rehab goals. Learner: patient and , Aristidesy Method of Education: Verbal and Written Barriers to Learning/Education: patient auditory comprehension impairments Patient: needs further instruction and education Family: , Arlyn, verbalized understanding Assessment/Plan ASSESSMENT/CLINICAL IMPRESSIONS: Mr. Sharlene Faith is a male 66 y.o. with PD admitted with LMCA occlusion s/p thrombectomy. Today Marcell continues to demonstrate reduced verbal output consisting largely of 1-2 word utterances.AAC was introduced today, with positive response. Pt actively engaged in navigation of AAC glen, producing four meaningful utterances (each from one button) in response to direct questions from PLANT ANATOMIST and his . Pt and expressed interest in continued AAC treatment; pt's stated she had tablet at home and will bring to family education on to download a program. 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 Speech is non-fluent with evidence of anomia and phonemic paraphasias. . Confrontation, generative, and responsive naming are impaired. Pt's strength in receptive language is noted, including following commands, answeringyes/no questions, and reading at the word level. Reading appears to be intact at the word-level, though it sharply declines functionality at the sentence-level. Patient currently needs assistance communicating basic wants and needs and directing his medical care. 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 He is 68% intelligible at both the word level and the sentence level to an unfamiliar listener. Intelligibility decreases as a function of word/phrase length. Speaking loudly is an effective strategy to increase Marcell's intelligibility. Given patient's age, independence prior to admission, and social/occupational demands, he would benefit from intensiveSLP intervention. Based on the patient's premorbid level of functioning, medical diagnosis, comorbidities and patient/family support, the patient's prognosis is considered good. Previous evaluation of pt's swallow function indicated pt currently presents with a very mild oral phase dysphagia characterized by prolonged mastication and bolus formation. Etiology of dysphagia is mechanical d/t pt's current lack of teeth while he is going through process of acquiring dentures. No overt s/sx of laryngeal penetration observed during evaluation. Patient remains at low risk of aspiration at this time. Prognosis for improvement in swallow function is judged to be excellent at this time secondary to upcoming acquisition of dentures. Anticipate patient will tolerate Dysphagia 4 diet with thin liquids; reevaluation appropriate if pt acquires dentures while in this setting. Functional Communication Measures ([place] [employer], 2002). The Functional Communication Measures (FCM???s) are a series of 7 point rating scales, ranging from least functional (Level 1) to most functional (Level 7). They have been developed by SUZANNA to describedifferent aspects of patient???s functional communication and swallowing abilities over the course of PLANT ANATOMIST intervention. ?? Spoken Language Comprehension Level 6: Individual is able to understand communication in most activities, but some limitations in comprehension are still apparent in vocational, avocational, and socialactivities. The individual rarely requires minimal cueing to understand complex sentences. The individual usually uses compensatory strategies when encountering difficulty. Spoken Language Expression Level 3: The communication partner must assume responsibility for structuring the communication exchange, and with consistent and moderate cueing, the individual can produce words and phrases that are appropriate and meaningful in context. Motor Speech Level 3: 3The communication partner must assume primary responsibility for interpretingthe communication exchange, however, the individual is able to produce short consonant-vowel combinations or automatic words intelligibly. With consistent and moderate cueing, the individual can produce simple words and phrases intelligibly, although accuracy may vary. Augmentative-Alternative Communication Level 3: The individual usually requires moderate cueing and additional time to use augmentative-alternative communication to convey simple messages related to personal wants/needs with familiar communication partners, although accuracy may vary. The communication partner must assume responsibility for structuring most communication exchanges. GOALS: Longterm Goals: Projected Functional Communication Measures at discharge: Spoken Language Expression Level 3: The communication partner must assume responsibility for structuring the communication exchange, and with consistent and moderate cueing, the individual can produce words and phrases that are appropriate and meaningful in context. Augmentative-Alternative Communication Level 3: The individual usually requires moderate cueing and additional time to use augmentative-alternative communication to convey simple messages related to personal wants/needs with familiar communication partners, although accuracy may vary. The communication partner must assume responsibility for structuring most communication exchanges. ?? Short Term Goals: Verbal Expression: Goal #1: The patient will generate automatic sequences (counting, days of the week) with 90% accuracy. Goal #2: The patient will describe a word utilizing semantic feature analysis (SFA) or any appropriate word retrieval strategy with 90% accuracy??provided moderate verbal and written cues for word retrieval. Goal #3: Given a specific category, the patient will accurately name 5 items within it with 90% accuracy. Goal #4: The patient will provide a single word to complete a phrase with 90% accuracy. Goal #5: The patient will produce >10 utterances of >5 words during a 50 minute PLANT ANATOMIST session independently. New Goal Area Augmentative-Alternative Communication: Goal #1: The patient will produce 10+ meaningful utterances using an AAC device during a 60-minute PLANT ANATOMIST session provided minimal cues. Motor Speech: Goal #1: The patient will be 90% intelligible to familiar listeners during spontaneous conversation using compensatory strategies of speaking loudly and slowly. PLAN/RECOMMENDATIONS: Continue PLANT ANATOMIST services: Patient will be seen for a minimum of 5x/week @ 50 minutes. ?? DYSPHAGIA: Recommend upgrade to dysphagia 4, thin liquids - pt is in process of acquiring dentures, but currently has very few teeth. Continue general aspiration precautions (HOB elevated, slow rate, small/single bites/sips, alternateliquids/solids) ?? Healthcare Communication Access Recommendations Patient has mild Comprehension and moderate Expression impairments; pt is hard of hearing at baseline ?? Please support access to communication and healthcare information by doing the following: Plan in extra time when preparing to speak to Marcell Offer Marcell written cues as needed. ?? Supported Comprehension: ?? Supplement communication with gestures, writing, pictures ?? Be prepared to repeat and rephrase, especially as pt is hard of hearing. ?? Supported Expression: ?? Verbalize two choices or ask yes/no questions. ?? Ask closed ended questions. ROBERT WADSWORTH 02/20/2022 16:13 harry, Ladan Freed MD - 02/20/2022 0948 EDT MEDICINE FOLLOW-UP Date of service: 02/20/2022 PCP: Griselda Stanley CHIEF COMPLAINT: Left MCA ischemic stroke; Parkinson's Disease with deep brain stimulator in place; atrial fibrillation not previously anticoagulated due to falls risk; diabetes mellitus type 2 SUBJECTIVE: Marcell had an appointment with his primary neurologist at [facility] scheduled for today but their office cancelled it. Watched him do balance activities in PT yesterday - he is a fairly significant falls risk due to narrow base of support and shuffling gait pattern. Arranging family ed and training for . BG good on low dose metformin. No side effects. No fever, cough, dyspnea, GI or issues. OBJECTIVE: BP 117/77 (BP Cuff Location: Right arm, BP Patient Position: Supine) Pulse 80 Temp 35.7 ??C (96.3 ??F) (Tympanic) Resp 16 Ht 182.9 cm (72.01) Wt 96.1 kg (211 lb 12.8 oz) SpO2 96% BMI 28.72 kg/m?? Vital signs are stable and the patient is afebrile. Physical exam is stable. Flat affect (unchanged) but able to answer questions with deliberate effort. No distress. Respirations even, unlabored. Motor/sensory exam stable. MEDICATIONS: Current Facility-Administered Medications Medication Route Frequency ??? acetaminophen (TYLENOL) tablet 650 mg oral Q4H PRN ??? aspirin chewable tablet 81 mg oral DAILY ??? atorvastatin (LIPITOR) tablet 80 mg oral DAILY ??? bisacodyL (DULCOLAX) EC tablet 10 mg oral Daily PRN Or ??? bisacodyL (DULCOLAX) suppository 10 mg rectal Daily PRN ??? calcium carbonate (TUMS) 200 mg calcium (500 mg) per chewable tablet tablet,chewable 1 Tablet oral QID PRN ??? carbidopa-levodopa (SINEMET) 25-250 mg per tablet 1 Tablet oral 4 times per day ??? DULoxetine (CYMBALTA) delayed release capsule 60 mg oral DAILY ??? entacapone (COMTAN) tablet 200 mg oral 3 times per day ??? gabapentin (NEURONTIN) capsule 100 mg oral BID ??? glucagon injection 1 mg intramuscular PRN ??? heparin injection 5,000 Units subcutaneous Q12H ??? metFORMIN (GLUCOPHAGE) tablet 500 mg oral DAILY (BREAKFAST) ??? metoprolol SUCCinate (TOPROL-XL) tablet 50 mg oral DAILY ??? polyethylene glycol 3350 (MIRALAX) packet 17 g oral BID ??? senna (SENOKOT) tablet 2 Tablet oral QHS LABS: Last labs: Labs: I have personally reviewed CBC: Lab Results Component Value Date WBC 9.48 02/18/2022 RBC 4.84 02/18/2022 HGB 14.2 02/18/2022 HCT 41.8 02/18/2022 MCV 86 02/18/2022 MCH 29.3 02/18/2022 MCHC 34.0 02/18/2022 PLT 193 02/18/2022 NEUTROABS 5.80 02/18/2022 BMP: Lab Results Component Value Date NA 140 02/18/2022 K 4.4 02/18/2022 CL 103 02/18/2022 CO2 30 02/18/2022 BUN 15 02/18/2022 CREATININE 0.88 02/18/2022 CALCIUM 9.8 02/18/2022 MG 1.5 (L) 02/05/2022 PHOS 3.6 02/05/2022 LABALBU 5.1 (H) 02/18/2022 ASSESSMENT/PLAN: 1. Left MCA ischemic stroke status post thrombectomy with satisfactory flow on 02/05/2022 Cont aspirin + high intensity statin Cont PT/OT/PLANT ANATOMIST Cont strict falls precautions, delirium prevention measures, aspiration precautions 2. Diabetes mellitus type 2. Reviewed prior documentation and previous visits in outpatient clinic and it looks like he took metformon 1000 bid at home prior. For now, given his current BG: Cont metformin 500 daily - BG well controlled on this currently DC'd supplemental aspart SSI Will adjust metformin as needed to keep BG around 150 without lows 3. Atrial fibrillation not previously anticoagulated Consider anticoagulation about 14 days after initial stroke, but falls risk in the past had prevented its use in the past. Also with petechial hemorrhage on head CT, so want to hold off for now Continue metoprolol 50 twice daily 4. Parkinson's disease Has been continued on his home Parkinson's meds which include: Sinemet 25???250: 1 tablet 4 times daily Entacapone 200 mg 3 times daily ?? I reviewed prior neurology notes from [facility] and he takes gabapentin (100 every day) and cymbalta (60 bid) at home ?? DVT prophylaxis: He is on heparin 5000 twice daily. Platelets stable at 193k on last check The patient is medically stable and tolerating the present level of the rehab program. The patient is to continue in the rehabilitation program. Ladan Álvarez MD Tequila Llamas MD - 02/20/2022 0915 EDT Physiatry Progress Note Admit Date: 02/10/2022 Hospital Day: LOS: 10 days Date of Service: 02/20/2022 Chief Complaint: Left MCA territory infarct: Posterior temporal lobe and parietal lobe. Subjective: limited by aphasia. currently expressing concern but unclear what concern is about. Denies headache, pain, respiratory or GI complaint. Possibly indicating concern over getting ready for therapies this morning. in this afternoon. Questions about starting anticoagulation. No concerns about upcoming discharge. Current Facility-Administered Medications Medication Route Frequency ??? acetaminophen (TYLENOL) tablet 650 mg oral Q4H PRN ??? aspirin chewable tablet 81 mg oral DAILY ??? atorvastatin (LIPITOR) tablet 80 mg oral DAILY ??? bisacodyL (DULCOLAX) EC tablet 10 mg oral Daily PRN Or ??? bisacodyL (DULCOLAX) suppository 10 mg rectal Daily PRN ??? calcium carbonate (TUMS) 200 mg calcium (500 mg) per chewable tablet tablet,chewable 1 Tablet oral QID PRN ??? carbidopa-levodopa (SINEMET) 25-250 mg per tablet 1 Tablet oral 4 times per day ??? DULoxetine (CYMBALTA) delayed release capsule 60 mg oral DAILY ??? entacapone (COMTAN) tablet 200 mg oral 3 times per day ??? gabapentin (NEURONTIN) capsule 100 mg oral BID ??? glucagon injection 1 mg intramuscular PRN ??? heparin injection 5,000 Units subcutaneous Q12H ??? metFORMIN (GLUCOPHAGE) tablet 500 mg oral DAILY (BREAKFAST) ??? metoprolol SUCCinate (TOPROL-XL) tablet 50 mg oral DAILY ??? polyethylene glycol 3350 (MIRALAX) packet 17 g oral BID ??? senna (SENOKOT) tablet 2 Tablet oral QHS Objective/Physical Exam: VS: BP 117/77 (BP Cuff Location: Right arm, BP Patient Position: Supine) Pulse 80 Temp 35.7 ??C (96.3 ??F) (Tympanic) Resp 16 Ht 182.9 cm (72.01) Wt 96.1 kg (211 lb 12.8 oz) SpO2 96% BMI28.72 kg/m?? Weight: Weight : 96.1 kg (211 lb 12.8 oz) Exam: Exam is stable HEENT: AT/NC, no clear visual field cut. Lungs: Respirations even and unlabored at rest Abdomen: benign Extremities: Range of motion within normal limits. Calves soft nontender. Neurologic: Alert, oriented to hospital. He has a moderate dysarthria with a expressive aphasia and receptive component. processing is slowed . Simple naming intact and follows simple motor commands. Yes/no appears accurate for simple questionsin context. Motor: Grossly 5/5 except R right ankle in AFO (h/o foot drop) Sensation: No focal sensory loss, but aphasia does limit some testing. Labs: I have personally reviewed CBC: Lab Results Component Value Date WBC 9.48 02/18/2022 RBC 4.84 02/18/2022 HGB 14.2 02/18/2022 HCT 41.8 02/18/2022 MCV 86 02/18/2022 MCH 29.3 02/18/2022 MCHC 34.0 02/18/2022 PLT 193 02/18/2022 NEUTROABS 5.80 02/18/2022 BMP: Lab Results Component Value Date NA 140 02/18/2022 K 4.4 02/18/2022 CL 103 02/18/2022 CO2 30 02/18/2022 BUN 15 02/18/2022 CREATININE 0.88 02/18/2022 CALCIUM 9.8 02/18/2022 MG 1.5 (L) 02/05/2022 PHOS 3.6 02/05/2022 LABALBU 5.1 (H) 02/18/2022 CT head 02/18/22 IMPRESSION: Redemonstrated evolving left MCA territory infarcts without associated hematoma- type hemorrhage. Irregular hyperattenuation within the region of infarct could represent a small amount of petechial hemorrhage, similar in distribution to prior but slightly more prominent. No new infarct. Assessment/Problems: (update problem list daily as appropriate) Patient Active Problem List Diagnosis Date Noted ??? *(H)History of recent stroke 02/10/2022 Priority: Medium ??? (H)Acute CVA (cerebrovascular accident) ([facility] ([facility]) 02/04/2022 Priority: Medium ??? Stroke ([facility] ([facility]) 02/04/2022 Priority: Medium ??? (H)Arterial ischemic stroke, MCA (middle cerebral artery), left, acute ([facility]) ([facility]) 02/04/2022 Priority: Medium ??? (H)Aphasia 02/04/2022 Priority: Medium ??? (H)Dysarthria 02/04/2022 Priority: Medium TEAM ROUNDS: patients full status reviewed and discharge barriers discussed. Pt. progressing well and tolerating therapy. Refer to rounds report in chart. Plan: 1. Left MCA stroke 02/04/2022 s/p mechanical thrombectomy. He has residual aphasia, with impaired mobility and self-cares. Appropriate for acute level rehabilitation including PT, OT, PL[employer]AT[employer]IST to address mobility, self-cares, cognition and, communication and swallowing function. Continue 24-hour rehabilitation nursing for self care deficits and education. Dysphagia level 4 diet, monitor for secondary aspiration Continue aspirin 81 mg daily and atorvastatin (increased to 40 mg daily) for stroke prophylaxis. Episodes JAVED and worsened speech on 02/12 and 02/18, prompting ED evals with no sig changes on head CT, does show small amount of petechial hemorrhage within infarct. Has continued to have fluctuating course with motor and speech function, suspect parkinson's is playing a role in this. 2. Chronic atrial fibrillation: Continue metoprolol 50 mg twice daily for rate control. He has not been on anticoagulation previously due to fall risk. Continue to evaluate overall balance, and review if anticoagulation may be appropriate, some 10 to 14 days following stroke. 3. Parkinson disease: S/p DBS: Continue carbidopa/levodopa 25-250 mg 4 times daily and encaptone 200Mg 3 Times Daily. Followed by neurology [facility]. 4. Right foot drop: Uses a solid AFO with subtalar strap at baseline. Monitor skin for any breakdownwith wearing. 5. 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 Internal medicine consulting. Currently on Metformin 500mg daily. Continue gabapentin for diabetic polyneuropathy dysesthetic discomfort. 6. Chronic constipation: Per this is common at home. Continue with MiraLAX, senna. Suppository or Dulcolax tab available as needed. Tequila Llamas MD 02/20/2022 9:15 Vijaya Mishra - 02/20/2022 0750 EDT [facility] Rehabilitation Therapy Inpatient Rehabilitation [facility] Occupational Therapy Encounter Note Date of Service: 02/20/2022 SUBJECTIVE: Thank you. OBJECTIVE: Interventions Completed Today: First Session Start time: 0930 Total Therapy Minutes: 60 minute(s) Interventions included: Self-Care/Home Management *Focus on progressing involvement and independence with self-care activities *Pt's present for session Bed mobility: semi-fowlers>EOB with min A and extra time Functional transfers - EOB> w/c with mod hand hold A from spouse - W/c<>tub bench with min A at gait belt, use of grab bars and verbal cues for sequencing steps, pt wearing brace and shoes w/c>bench, hospital socks bench > w/c Showering *Pt completed showering seated on a tub bench - Close supervision to bathe self with soap, wash cloth and rinse with shower head, required assistance to wash back - Sit>stand with use of grab bars, pt washed in stance while holding onto grab bar with one hand,min contact A for stance, cues to attend to R foot/ankle Dressing *Completed while seated in w/c UB: Set-up A, pt donned shirt with extra time and min A from spouse to pull shirt down LB: - Set-up A, total A from spouse to thread briefs and shorts per pt request - Sit>stand at sink with min contact A, pt able to hike brief with min A from spouse, hiked shorts with extra time Footwear: - Total A to don/doff brace, socks and shoes from spouse/ this television writer *Family education and skilled discussion provided to spouse regarding Parkinson's support group options, Marcell's baseline level, prior level of assist spouse would provide, home health services, and d/cplanning. Pt's spouse verbalized understanding of provided education. Vital signs: Vital signs have been stable with interventions and were not monitored. Second Session Start time: 1400 Total Therapy Minutes: 30 minute(s) Interventions included: Therapeutic Activity *Pt's spouse present for session -Skilled discussion with pt and pt's spouse regarding focus of therapy prior to d/c. Spouse mentioned challenges with going out to restaurants and Marcell's confidence with eating during meals. Recommended a feeding session tomorrow to evaluate and problem-solve any challenges that may come up (utensil use, spilling, etc.) Pt and pt's spouse agreed and verbalized understanding. Self-Care/Home Management Coffee prep: - Pt ambulated w/c>counter with min hand hold A in lifeskills room and completed making a cup of instant coffee - Pt attempted to plug electric kettle into outlet, requested help after prolonged effort - Pt filled electric kettle at sink, transferred onto kettle hot plate, and turned kettle on with verbal cues for sequencing - Stand > sit in w/c with extra time and verbal cues for sequencing movement - Pt able to unscrew large lid of instant coffee mix with B hands, scoop and mix instant coffee in cup, tear open sugar packet and mix with extra time - Pt poured hot water into cup with assist to hold cup to prevent spills and for safety *Min contact A at gait belt for duration of task Vital signs: Vital signs have been stable with interventions and were not monitored. Start Time: 0930 Individual Therapy (minutes): 60 Minutes Total Minutes Treatment 1: 60 Start Time: 1400 Individual Therapy (minutes): 30 Minutes Total Minutes Treatment 2: 30 Patient/Family Education: Activity/Work/Community: Activity/energy conservation, Activity modification, Body mechanics, Energyconservation techniques Mobility, Transfers, and Gait: Functional transfers Recommendations: Follow-up services, Home management activities Safety: Safety Learner: Patient, Family Method: Verbal, Demonstration Barriers to Learning: Hearing deficits, Language Outcome: Verbalized understanding, Returned demonstration, Needs practice, Needs reinforcement Team Communication: Team Communication Notified: Team When: After therapy session By: [id number]-tpet communication About: pt status, POC, d/c planning ASSESSMENT: Marcell was pleasant and agreeable to today's occupational therapy sessions. Marcell's , Ana Lilia, was present for therapy sessions. Education and skilled discussion provided regarding areas of focus for remainder of rehab stay, including self-feeding and increasing Marcell's self-confidence with eating in public places with intermittent help from Ana Lilia. Ana Lilia is very supportive and ready to provide assistance for Marcell as needed. Marcell continues to benefit from verbal cues for sequencing steps and movements when ambulating and transferring functionally. Marcell remains appropriate for skilled OT services at an acute rehab level to progress participation and independence with functional mobility, fu nctional activities, self-care and ADLs. PLAN: Next Session to Include: feeding evaluation, standing tolerance/balance with functional activities (grooming) Vijaya Susu, 02/20/2022, 15:31 Associated attestation - Dulce Maria Mobley OT - 02/21/2022 1013 EDT I was present and supervised Occupational Therapy interventions for this patient. I have read and agree with the note as written. Navneet Contreras Heather, PT - 02/19/2022 1430 EDT [facility] Rehabilitation Therapy Inpatient Rehabilitation [facility] Physical Therapy Encounter Note Date of Service: 02/19/2022 SUBJECTIVE: about twenty minutes- daily walks prior to admission OBJECTIVE: Interventions Completed Today: Start time: 1300 Total Therapy Minutes: 60 minute(s) Interventions completed today: Gait Training: High intensity gait training (HIGT): HRmax: 162 Beta blockers? (Y/N) Y Target heart rate of at least 70%-85% of HRmax, or >= 98 - 123 bpm and RPE >=7/10 or 14/20 Vitals (pre and post and recovery): Pre: BP 90/64, HR 61 Post 1st walk: BP 120/79, HR 75 Post session: BP 100/58, HR 66 ?? Task Time in bout HR range Assist Task conditions overground 6 min Post: 94 Min contact x 1-2 Fwd walking, nursing observing, strategies for freezing discussed 11:05 Durin Min contact x 1-2, hand hold intermittently for hurdles Fwd walking, x 4 stairs (step to gait) w/ B rails, 6in hurdles fwd/sideways 4:53 Durin-100 Min contact x 1-2, rollator walker W/ rollator walker through tight spaces-walking into room, turning around in bathroom, turning around to sit from straight on onto mat in gym 3 min 114 Min-mod assist of 2, use of hiking poles, mod assist mainly for assist with moving hiking poles L>R Fwd walking with use of nordic poles with focus on increasing trunk rotation/arm swing, requiring significant cues/assist for L pole, difficulty sequencing with fast paced steps 10:45 117 Min contact x 1-2, mod A near end of walk when navigating incline/decline Descending full 18 stairs step to gait, B railings, indoors/outdoors with focus on stopping/restarting when steps become short/quick/flexed posture. Increased flexed posture with incline/decline requiring max cues tostop and re-set Additional information may be available in the medical record. Patient/Family Education: Topic: Turns w/ vs w/o walker. Identifying flexed posture/fast steps and re starting Learner: patient Method: verbal Barriers to Learning: aphasia Outcome: verbalized understanding, needs practice Team Communication: With RN re pt mobility status, due to RN concerns for fall risk, assist level returned to 2 assist ASSESSMENT: Attempt at nordic walking to promote trunk rotation/arm swing challenging given pt's level of rigidity and shuffling/rapid step gait. Increased freezing/shuffling/fwd lean noted with use of walker withturns vs without, potential benefit of performing household mobility without device may be safer by time of discharge. Outdoor mobility challenging and will benefit from additional practice also at start of session when less fatigued. PLAN: Outdoor mobility/carpeting for external increased awareness of shuffling gait, ascending flight stairs, family training Primary Therapist: Jessie Park, PT 02/19/2022 14:31 enny Roland - 02/19/2022 1419 EDT CM Note Update: met the patients at and discussed family education. She will come in morning 9am to participate in education session prior to DC. Call paced to the patients regarding family education and the patients pending DC. CM asked to have the patiens call in to clarify the day and time she planned to come to the [facility] for work with the therapy team. CM will update the team and chart when more is known. CMSW Renny Roland MSW Tequila Echols MD - 02/19/2022 1040 EDT Physiatry Progress Note Admit Date: 02/10/2022 Hospital Day: LOS: 9 days Date of Service: 02/19/2022 Chief Complaint: Left MCA territory infarct: Posterior temporal lobe and parietal lobe. Subjective: limited by aphasia. currently no indication of pain, respiratory or GI complaint. Yesterday with headache and concern for decline in speech prompting ED evaluation. Headache has resolved. Slept well last night. Current Facility-Administered Medications Medication Route Frequency ??? acetaminophen (TYLENOL) tablet 650 mg oral Q4H PRN ??? aspirin chewable tablet 81 mg oral DAILY ??? atorvastatin (LIPITOR) tablet 80 mg oral DAILY ??? bisacodyL (DULCOLAX) EC tablet 10 mg oral Daily PRN Or ??? bisacodyL (DULCOLAX) suppository 10 mg rectal Daily PRN ??? calcium carbonate (TUMS) 200 mg calcium (500 mg) per chewable tablet tablet,chewable 1 Tablet oral QID PRN ??? carbidopa-levodopa (SINEMET) 25-250 mg per tablet 1 Tablet oral 4 times per day ??? DULoxetine (CYMBALTA) delayed release capsule 60 mg oral DAILY ??? entacapone (COMTAN) tablet 200 mg oral 3 times per day ??? gabapentin (NEURONTIN) capsule 100 mg oral BID ??? glucagon injection 1 mg intramuscular PRN ??? heparin injection 5,000 Units subcutaneous Q12H ??? metFORMIN (GLUCOPHAGE) tablet 500 mg oral DAILY (BREAKFAST) ??? [START ON 02/20/2022] metoprolol SUCCinate (TOPROL-XL) tablet 50 mg oral DAILY ??? polyethylene glycol 3350 (MIRALAX) packet 17 g oral BID ??? senna (SENOKOT) tablet 2 Tablet oral QHS Objective/Physical Exam: VS: BP 120/72 (BP Cuff Location: Right arm, BP Patient Position: Semi fowlers) Pulse 60 Temp 36.7 ??C (98.1 ??F) (Tympanic) Resp 14 Ht 182.9 cm (72.01) Wt 96.1 kg (211 lb 12.8 oz) SpO2 100% BMI 28.72 kg/m?? Pain: Patient Vitals for the past 8 hrs: Numeric Pain Level (Scale 1-10) Asleep 02/19/22 0700 0 ??? 02/19/22 0654 ??? Reassessed, sleeping comfortably, RR WNL. 02/19/22 0622 2 ??? Weight: Weight : 96.1 kg (211 lb 12.8 oz) Glucose Readings (last 8 readings): No results for input(s): GLUCOSEFINGE in the last 72 hours. I&O: Intake/Output Summary (Last 24 hours) at 02/19/2022 1040 Last data filed at 02/19/2022 0500 Gross per 24 hour Intake ??? Output 750 ml Net -750 ml Exam: HEENT: AT/NC, no clear visual field cut. Lungs: Respirations even and unlabored at rest Abdomen: benign Extremities: Range of motion within normal limits. Calves soft nontender. Neurologic: Alert, appears oriented. He has a moderate dysarthria with a expressive aphasia and receptive component. processing is slowed . Simple naming intact and follows simple motor commands. Yes/no appears accurate for simple questionsin context. Motor: Grossly 5/5 except R right ankle in AFO (h/o foot drop) Sensation: No focal sensory loss, but aphasia does limit some testing. Labs: I have personally reviewed CBC: Lab Results Component Value Date WBC 9.48 02/18/2022 RBC 4.84 02/18/2022 HGB 14.2 02/18/2022 HCT 41.8 02/18/2022 MCV 86 02/18/2022 MCH 29.3 02/18/2022 MCHC 34.0 02/18/2022 PLT 193 02/18/2022 NEUTROABS 5.80 02/18/2022 BMP: Lab Results Component Value Date NA 140 02/18/2022 K 4.4 02/18/2022 CL 103 02/18/2022 CO2 30 02/18/2022 BUN 15 02/18/2022 CREATININE 0.88 02/18/2022 CALCIUM 9.8 02/18/2022 MG 1.5 (L) 02/05/2022 PHOS 3.6 02/05/2022 LABALBU 5.1 (H) 02/18/2022 CT head 02/18/22 IMPRESSION: Redemonstrated evolving left MCA territory infarcts without associated hematoma- type hemorrhage. Irregular hyperattenuation within the region of infarct could represent a small amount of petechial hemorrhage, similar in distribution to prior but slightly more prominent. No new infarct. Assessment/Problems: (update problem list daily as appropriate) Patient Active Problem List Diagnosis Date Noted ??? *(H)History of recent stroke 02/10/2022 Priority: Medium ??? (H)Acute CVA (cerebrovascular accident) ([facility] ([facility]) 02/04/2022 Priority: Medium ??? Stroke ([facility]) ([facility]) 02/04/2022 Priority: Medium ??? (H)Arterial ischemic stroke, MCA (middle cerebral artery), left, acute ([facility]) ([facility]) 02/04/2022 Priority: Medium ??? (H)Aphasia 02/04/2022 Priority: Medium ??? (H)Dysarthria 02/04/2022 Priority: Medium Plan: Rehabilitation plan as established by Dr. Townsend reviewed and remains appropriate as copied here below. Additional Notes regarding constipation 1. Left MCA stroke 02/04/2022 s/p mechanical thrombectomy. He has residual aphasia, with impaired mobility and self-cares. Appropriate for acute level rehabilitation including PT, OT, [employer] ANAT[employer]IST to address mobility, self-cares, cognition and, communication and swallowing function. Continue 24-hour rehabilitation nursing for self care deficits and education. Dysphagia level 4 diet, monitor for secondary aspiration Continue aspirin 81 mg daily and atorvastatin (increased to 40 mg daily) for stroke prophylaxis. Episodes JAVED and worsened speech on 02/12 and 02/18, prompting ED evals with no sig changes on head CT, does show small amount of petechial hemorrhage within infarct. 2. Chronic atrial fibrillation: Continue metoprolol 50 mg twice daily for rate control. He has not been on anticoagulation previously due to fall risk. Continue to evaluate overall balance, and review if anticoagulation may be appropriate, some 10 to 14 days following stroke. 3. Parkinson disease: S/p DBS: Continue carbidopa/levodopa 25-250 mg 4 times daily and encaptone 200Mg 3 Times Daily. 4. Right foot drop: Uses a solid AFO with subtalar strap at baseline. Monitor skin for any breakdownwith wearing. 5. 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 Internal medicine consulting. Currently on Metformin 500mg daily. Continue gabapentin for diabetic polyneuropathy dysesthetic discomfort. 6. Chronic constipation: Per this is common at home. Continue with MiraLAX, senna. Suppository or Dulcolax tab available as needed. Tequila Llamas MD 02/19/2022 10:40 ills, Ladan Freed MD - 02/19/2022 1014 EDT MEDICINE FOLLOW-UP Date of service: 02/19/2022 PCP: Griselda Stanley CHIEF COMPLAINT: Left MCA ischemic stroke; Parkinson's Disease with deep brain stimulator in place; atrial fibrillation not previously anticoagulated due to falls risk; diabetes mellitus type 2 SUBJECTIVE: Marcell had developed mental status change this am prompting transfer to the ED for evaluation yesterday. Head CT appeared essentially unchanged with evolution of the left MCA infarct area and possible small amount of petechial hemorrhage. This am, no fever, cough, dyspnea, GI or issues. OBJECTIVE: BP 120/72 (BP Cuff Location: Right arm, BP Patient Position: Semi fowlers) Pulse 60 Temp 36.7 ??C (98.1 ??F) (Tympanic) Resp 14 Ht 182.9 cm (72.01) Wt 96.1 kg (211 lb 12.8 oz) SpO2 100% BMI 28.72 kg/m?? Vital signs are stable and the patient is afebrile. Physical exam is stable. Flat affect (unchanged) but able to answer questions with deliberate effort. No distress. Respirations even, unlabored. Motor/sensory exam stable. MEDICATIONS: Current Facility-Administered Medications Medication Route Frequency ??? acetaminophen (TYLENOL) tablet 650 mg oral Q4H PRN ??? aspirin chewable tablet 81 mg oral DAILY ??? atorvastatin (LIPITOR) tablet 80 mg oral DAILY ??? bisacodyL (DULCOLAX) EC tablet 10 mg oral Daily PRN Or ??? bisacodyL (DULCOLAX) suppository 10 mg rectal Daily PRN ??? calcium carbonate (TUMS) 200 mg calcium (500 mg) per chewable tablet tablet,chewable 1 Tablet oral QID PRN ??? carbidopa-levodopa (SINEMET) 25-250 mg per tablet 1 Tablet oral 4 times per day ??? DULoxetine (CYMBALTA) delayed release capsule 60 mg oral DAILY ??? entacapone (COMTAN) tablet 200 mg oral 3 times per day ??? gabapentin (NEURONTIN) capsule 100 mg oral BID ??? glucagon injection 1 mg intramuscular PRN ??? heparin injection 5,000 Units subcutaneous Q12H ??? metFORMIN (GLUCOPHAGE) tablet 500 mg oral DAILY (BREAKFAST) ??? [START ON 02/20/2022] metoprolol SUCCinate (TOPROL-XL) tablet 50 mg oral DAILY ??? polyethylene glycol 3350 (MIRALAX) packet 17 g oral BID ??? senna (SENOKOT) tablet 2 Tablet oral QHS LABS: Last labs: Labs: I have personally reviewed CBC: Lab Results Component Value Date WBC 9.48 02/18/2022 RBC 4.84 02/18/2022 HGB 14.2 02/18/2022 HCT 41.8 02/18/2022 MCV 86 02/18/2022 MCH 29.3 02/18/2022 MCHC 34.0 02/18/2022 PLT 193 02/18/2022 NEUTROABS 5.80 02/18/2022 BMP: Lab Results Component Value Date NA 140 02/18/2022 K 4.4 02/18/2022 CL 103 02/18/2022 CO2 30 02/18/2022 BUN 15 02/18/2022 CREATININE 0.88 02/18/2022 CALCIUM 9.8 02/18/2022 MG 1.5 (L) 02/05/2022 PHOS 3.6 02/05/2022 LABALBU 5.1 (H) 02/18/2022 ASSESSMENT/PLAN: 1. Left MCA ischemic stroke status post thrombectomy with satisfactory flow on 02/05/2022 Cont aspirin + high intensity statin Cont PT/OT/PLANT ANATOMIST Cont strict falls precautions, delirium prevention measures, aspiration precautions 2. Diabetes mellitus type 2. Reviewed prior documentation and previous visits in outpatient clinic and it looks like he took metformon 1000 bid at home prior. For now, given his current BG: Cont metformin 500 daily - BG well controlled on this currently DC'd supplemental aspart SSI Will adjust metformin as needed to keep BG around 150 without lows 3. Atrial fibrillation not previously anticoagulated Consider anticoagulation about 14 days after initial stroke, but falls risk in the past had prevented its use. Continue metoprolol 50 twice daily 4. Parkinson's disease Has been continued on his home Parkinson's meds which include: Sinemet 25???250: 1 tablet 4 times daily Entacapone 200 mg 3 times daily ?? I reviewed prior neurology notes from [facility] and he takes gabapentin (100 every day) and cymbalta (60 bid) at home ?? DVT prophylaxis: He is on heparin 5000 twice daily. Platelets stable at 193k this am The patient is medically stable and tolerating the present level of the rehab program. The patient is to continue in the rehabilitation program. Ladan Álvarez MD Renny Roland - 02/19/2022 0903 EDT CM Note CM called patients Gwen at her request to check in with CMSW. A VM was left with callback info. CM will update note when more is known about needs. [facility] R[facility] MSW Robert Garcia - 02/19/2022 0830 EDT Speech-Language Pathology Daily and Current Progress Note PLANT ANATOMIST Diagnosis: Aphasia, Dysarthria, and Dysphagia, oral phase Medical Diagnosis: L MCA CVA Date of Onset: 02/04/22 Date of Referral: Admit to rehab 02/09/22 Subjective/Objective SUBJECTIVE: I don't know what's going on OBJECTIVE: Date of Service: 02/19/2022 Start Time: 1100 Total Therapy minutes: 60 minute(s) language tx Patient Interview: Patient's preferred name is Marcell. Marcell is lives in [place], [place] with his , Arlyn. 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 He is originally from [place], [place] but moved to [place] when he was 21. He has one adult son, Marcell Pack, a [id number], and a granddaughter, Bala, who live in [place]. Marcell's highest level of schooling is 12th grade. Per patient's , patient did not seek speech therapy prior to this hospitalization as it was not deemed necessary; for example, stated that patient was able to carry on a conversation in a crowded room without difficulty and order meals at restaurants. Current presentation of severely reduced intelligibility is a significant departure from patient's baseline. Current Treatment Objectives: Verbal Expression: Goal #1: The patient will generate automatic sequences (counting, days of the week) with 90% accuracy. 02/14: Patient attempted to count from 1-20 aloud. Patient presented with frequent semantic paraphasias (e.g., 1, 2, 3, 4, 5, 36, 37, 38...) in all trials. Strategies of reading written numbers aloud or saying numbers in unison with PLANT ANATOMIST were not successful in reducing paraphasias. Patient did recite days of the week provided written cues of the first letter of each day and the full words of Saturday-Saturday. Patient presented with frequent neologistic paraphasias (squickay) in trials with less cueing. 02/17: Couting 1-21: 95% accuracy (x1 repetition) with accuracy increased to 100% with phonemic cue. KAEL: 3/ independently (43%), increased to 7/7 with phonemic cues/reframing as cloze task. 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 Goal #2: The patient will describe a word utilizing semantic feature analysis (SFA) or any appropriate word retrieval strategy with 90% accuracy??provided moderate verbal and written cues for word retrieval. 02/19: In the context of an SFA task, pt stated several one-word utterances describing various attributes of items: Cell phone: FUNCTION: call, talk, text; ATTRIBUTES: square, small; LOCATION: everywhere ASSOCIATION:n/a Goal #3: Given a specific category, the patient will accurately name 5 items within it with 90% accuracy. 7/6: The patient names two items in a category with 100% success (10/10); he also names three items in a category with 100% success (10/10). He benefited from maximal cues to draw and use an alphabet board to spell when experiences difficulty with word-finding. The patient presented with frequent phonemic paraphasias during this task. 02/17: The patient names two items in a category with 100% accuracy. Patient was able to increase number of items within a category given written cues and additional processing time. Animals: The patient generated x6 items given written cues Tools: Generated x 4 items given written cues and phonemic cues; frequent literal paraphasias noted Goal #4: The patient will provide a single word to complete a phrase with 90% accuracy. 7/5: Patient generated single word pairs to opposites (e.g., salt and , black and ____) with 70% accuracy (/10) provided maximal gestural, verbal, and written cues. Writing down stimuli increase accuracy and decreased pt frustration significantly. Goal #5: The patient will produce >10 utterances of >5 words during a 50 minute PLANT ANATOMIST session independently. 02/16: Pt performance of a Verb Network Strengthening Treatment (VNeST) task below: Verb Production Type Response # of Words 1. drive VNeST 1. 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 I drive my truck 3. My drives her car 4. My brother drives his bike 5. My drives her car to the grocery store after her work because she needs groceries. 1. 4 2. 4 3. 5 4. 5 5. 16 02/19: Pt performance of a Verb Network Strengthening Treatment (VNeST) task below: Verb Production Type Response # of Words 1. carry VNeST Dalia carries a baby. Bala carries toys. Charlotte carries toys. Bala carries toys around my house on holidays to play with me. 4 3 3 12 Motor Speech: Goal #1: The patient will be 90% intelligible to familiar listeners during spontaneous conversation using compensatory strategies of speaking loudly and slowly. 02/14: The pt effectively used compensatory strategy of speaking loudly with moderate success for increased intelligibility. Visual cue of SAY IT LOUD increased pt's use of strategy. 02/15: The patient independently noted intelligibility strategy of SAY IT LOUD when clinician entered room. Patient benefited from minimal cueing throughout today's session to increase volume for improved intelligibility. 02/17: The patient with reduced intelligibility across all verbal tasks today. Intelligibility decreased as a function of word length. Suspect both hypokinetic dysarthria and literal paraphasias contribute to decreased intelligibility. Patient approximately 50% intelligible to this unfamiliar listener at sentence level. Patient continues to benefit from education regarding speech intelligibility strategies. Patient/Family Education: Topic: Patient/Family education and training was completed today including understanding aphasia, word-finding strategies, intelligibility strategies, and rehab goals. Learner: patient and , Arlyn Method of Education: Verbal and Written Barriers to Learning/Education: patient auditory comprehension impairments Patient: needs further instruction and education Family: , Arlyn, verbalized understanding Assessment/Plan ASSESSMENT/CLINICAL IMPRESSIONS: Mr. Sharlene Faith is a male 66 y.o. with PD admitted with LMCA occlusion s/p thrombectomy. Today Marcell demonstrated significantly reduced verbal output consisting largely of 1-2 word utterances during VNeST and SFA trials. Dysarthria significantly worsened, severely affecting speech intelligibility. Marcell reported a headache and stated I don't know what's going on. Tremor in R hand notably worsened. Dr. Llamas consulted; questioned whether symptoms may be reflective of medication timing. 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 Speech is non-fluent with evidence of anomia and phonemic paraphasias. Repetition at the word level is intact. Confrontation, generative, and r esponsive naming are impaired. Pt's strength in receptive language is noted, including following commands, answering yes/no questions, and reading at the word level. Reading appears to be intact at theword-level, though it sharply declines functionality at the sentence-level. Patient currently needs assistance communicating basic wants and needs and directing his medical care. 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 He is 68% intelligible at both the word level and the sentence level to an unfamiliar listener. Intelligibility decreases as a function of word/phrase length. Speaking loudly is an effective strategy to increase Marcell's intelligibility. Given patient's age, independence prior to admission, and social/occupational demands, he would benefit from intensive PLANT ANATOMIST intervention. Based on the patient's premorbid level of functioning, medical diagnosis, comorbidities and patient/family support, the patient's prognosis is considered good. Previous evaluation of pt's swallow function indicated pt currently presents with a very mild oral phase dysphagia characterized by prolonged mastication and bolus formation. Etiology of dysphagia is mechanical d/t pt's current lack of teeth while he is going through process of acquiring dentures. No overt s/sx of laryngeal penetration observed during evaluation. Patient remains at low risk of aspiration at this time. Prognosis for improvement in swallow function is judged to be excellent at this time secondary to upcoming acquisition of dentures. Anticipate patient will tolerate Dysphagia 4 diet with thin liquids; reevaluation appropriate if pt acquires dentures while in this setting. Functional Communication Measures ([place] [employer], 2002). The Functional Communication Measures (FCM???s) are a series of 7 point rating scales, ranging from least functional (Level 1) to most functional (Level 7). They have been developed by SUZANNA to describedifferent aspects of patient???s functional communication and swallowing abilities over the course of PLANT ANATOMIST intervention. ?? Spoken Language Comprehension Level 6: Individual is able to understand communication in most activities, but some limitations in comprehension are still apparent in vocational, avocational, and socialactivities. The individual rarely requires minimal cueing to understand complex sentences. The individual usually uses compensatory strategies when encountering difficulty. Spoken Language Expression Level 4: The individual is successfully able to initiate communication using spoken language in simple, structured conversations in routine daily activities with familiar communication partners. The individual usually requires moderate cueing, but is able to demonstrate use of simple sentences (i.e., semantics, syntax, and morphology) and rarely uses complex sentences/messages. Motor Speech Level 3: 3The communication partner must assume primary responsibility for interpretingthe communication exchange, however, the individual is able to produce short consonant-vowel combinations or automatic words intelligibly. With consistent and moderate cueing, the individual can produce simple words and phrases intelligibly, although accuracy may vary. - Motor Speech Level 4: In simple structured conversation with familiar communication partners, the individual can produce simple words and phrases intelligibly. The individual usually requires moderate cueing in order to produce simple sentences intelligibly, although accuracy may vary. GOALS: Blanket Binder Goals: Projected Functional Communication Measures at discharge: Spoken Language Expression Level 6: The individual is successfully able to communicate in most activities, but some limitations in spoken language are still apparent in vocational, avocational, and social activities. The individual rarely requires minimal cueing to frame complex sentences. The individual usually self-cues when encountering difficulty. ?? Short Term Goals: Verbal Expression: Goal #1: The patient will generate automatic sequences (counting, days of the week) with 90% accuracy. Goal #2: The patient will describe a word utilizing semantic feature analysis (SFA) or any appropriate word retrieval strategy with 90% accuracy??provided moderate verbal and written cues for word retrieval. Goal #3: Given a specific category, the patient will accurately name 5 items within it with 90% accuracy. Goal #4: The patient will provide a single word to complete a phrase with 90% accuracy. Goal #5: The patient will produce >10 utterances of >5 words during a 50 minute PLANT ANATOMIST session independently. Motor Speech: Goal #1: The patient will be 90% intelligible to familiar listeners during spontaneous conversation using compensatory strategies of speaking loudly and slowly. PLAN/RECOMMENDATIONS: Continue/Recommend PLANT ANATOMIST services: Patient will be seen for a minimum of 5x/week @ 50 minutes. ?? DYSPHAGIA: Recommend upgrade to dysphagia 4, thin liquids - pt is in process of acquiring dentures, but currently has very few teeth. Continue general aspiration precautions (HOB elevated, slow rate, small/single bites/sips, alternateliquids/solids) ?? Healthcare Communication Access Recommendations Patient has mild Comprehension and moderate Expression impairments; pt is hard of hearing at baseline ?? Please support access to communication and healthcare information by doing the following: Plan in extra time when preparing to speak to Marcell Offer Marcell written cues as needed. ?? Supported Comprehension: ?? Supplement communication with gestures, writing, pictures ?? Be prepared to repeat and rephrase, especially as pt is hard of hearing. ?? Supported Expression: ?? Verbalize two choices or ask yes/no questions. ?? Ask closed ended questions. ROBERT WADSWORTH 02/19/2022 13:56 DanicaVijaya - 02/19/2022 [id number] EDT [facility] Rehabilitation Therapy Inpatient Rehabilitation [facility] Occupational Therapy Encounter Note Date of Service: 02/19/2022 SUBJECTIVE: Yesterday at 7pm re: when asked when Marcell took a shower last OBJECTIVE: Interventions Completed Today: First Session Start time: 829 Total Therapy Minutes: 60 minute(s) Interventions included: *Focus on progressing independence with self-care and safety within home management tasks Self-Care/Home Management - Pt received in w/c and agreeable to session Dressing: - UB: Doffed gown with extra time Donned shirt with intermittent min A to thread arm and pull down back, extra time needed - LB: Use of children's court magistrate and Mod A to thread shorts Sit>stand with min A, hiked shorts in stance with B hands and extra time, min contact A for stance Therapeutic Activity - Sit>stand from w/c with mod A, pt ambulated a short distance to table with hand hold A on R side and extra time - Pt in stance at table with w/c behind, completed folding 1 shirt and 1 pair of pants with extra time and verbal cues for posture, min contact A at gait belt. Pt standing ~10 minutes Cognition - Pt seated in w/c, completed sorting nuts, bolts and screws of various lengths within tool box. Focus on assessing functional cognition, including problem solving and direction following. Also addressed fine motor coordination and visual scanning. Prolonged time needed to complete (3 pieces in ~5 minutes). With repeated practice able to use pincer grasp to manipulate items. Vital signs: Vital signs have been stable with interventions and were not monitored. Second Session Start time: 1400 Total Therapy Minutes: 30 minute(s) Interventions included: *Focus on progressing independence and standing balance/tolerance within home management activities - Pt received in w/c, PT finishing up and taking vitals Therapeutic Activity Laundry - Sit>stand from w/c with min A, pt in stance at washer, completed steps for starting laundry including opening lid, switching settings (hot/cold, normal/perm press), adding laundry and locating thestart button. Pt completed with extra time, verbal cues for posture and sequencing. Pt able to read labels on washer and verbalize settings with extra time - Stand>sit to w/c with min A, verbal cues for sequencing steps and hand placement prior to sitting BITS Pt completed eye-hand coordination task using [employer]lick Integrated Therapy System ([employer]), in user paced setting, with focus on progressing standing balance, standing tolerance and posture, completed in astanding position with rollator. Parameters set to; target size 4 and stimuli equally loaded throughvisual bond. Pt completed in 2 minutes with 36 hits, 3.11s reaction time and 70% accuracy. Pt demonstrated strong standing balance and tolerance throughout task, however, noted flexed posture as fatigue was a factor. Vital signs: Vital signs were stable. Start Time: 0830 Individual Therapy (minutes): 60 Minutes Total Minutes Treatment 1: 60 Start Time: 1400 Individual Therapy (minutes): 30 Minutes Total Minutes Treatment 2: 30 Patient/Family Education: Topics: body mechanics, posture, energy conservation, AE dressing technique, pacing and timing Learner: Patient Method: Verbal, Demonstration Barriers to Learning: Hearing deficits, Language, Cognition Outcome: Verbalized understanding, Returned demonstration, Needs practice, Needs reinforcement Team Communication: Team Communication Notified: Primary speech-language pathologist, Primary physical therapist When: After therapy session By: [id number] communication About: pt status, POC, use of rollator ASSESSMENT: Marcell was pleasant and agreeable to today's occupational therapy sessions. He continues to benefit from extra time for processing when communicating and completing ADLs. Communication challenged by expressive aphasia, however, Marcell was able to verbalize and point to settings on washing machine upon request with great accuracy. Marcell continues to progress with dressing, requiring less assistance, however, lower body dressing remains challenged by limited dexterity, coordination and general Parkinson's symptoms. Marcell remains appropriate for skilled OT services at an acute rehab level to prog ress independence and participation in ADLs and IADLs. PLAN: Next Session to Include: shower evaluation, caregiver education/training, d/c planning, standing balance/tolerance, shelf organization, light drink prep Vijaya Cristobal, 02/19/2022, 15:16 Associated attestation - Dulce Maria Mobley OT - 02/19/2022 1617 EDT I was present for and directly supervised Occupational Therapy interventions for this patient. I have read and agree with the note as written. Catherine Contreras Carol Ann, MD - 02/18/2022 0941 EDT drawing tracer remote MD Notified by night RN early in AM ( btw 6:30 and 7 AM). that pt. Was c/o h/a, having increased difficulty with speech and not able to respond to orientation questions that he had been able to. Questionof increased difficulty with RLE motion. Challenging to assess this pt with also commorbidity of P arkinson's. Unable to do central imaging at [facility] on w/e. Transfer to ED for complete eval. If no new event identified and pt. back to baseline, expect he will be able to return to continue his acute rehab stay. Nadiya Roldan MD lisha Grijalva DPT - 02/17/2022 1522 EDT [facility] Rehabilitation Therapy Inpatient Rehabilitation [facility] Physical Therapy Encounter Note Date of Service: 02/17/2022 SUBJECTIVE: Patient agreeable to therapy. OBJECTIVE: Interventions Completed Today: Start time: 1300 Total Therapy Minutes: 35 minute(s) Interventions completed today: Vitals: Pre : 130/667 HR 60 bpm Post: 132/73 HR 62 bpm Therapeutic activities: -Supine to sit x4 trials with supervision, HOB elevated, increased time. -Sit to supine x4 trials with MIN A for LE elevation onto bed, trunk repositioning. Verbal cueing for hand placement on bedrail when transitioning to reduce posterior lean at trunk. Patient's reports she also assists with LE elevation at home as well. -Sit to/from stand from edge of bed x10 repetitions with CGA with focus on anterior trunk lean -Sit to/from stand from standard chair x1 repetition with CGA and UE support. Patient's asked about practicing car transfer. - Car transfer with MIN A x1 and second person for stand by assist for safety ; patient performs 2 complete transfers (from standing position); practiced bringing legs in/out of car from a seated position x3 trials. Increased time to bring feet into/out of the car. Education with patient's that he may need a little help to get his feet positioned in/out of the car. Educated patient to sit down and watch head on door frame before bringing legs in/out of the car. Education on options for hand placement during sit to stand transition from car seat. Dash ; seat; walker ; Education to make sure the seat of the car is placed as far back as it can go to improve ease of this transfer. Gait Training: -Ambulation room to/from gym with MIN hand held assist x1 and CGA of a 2nd person for safety. Verbalcueing for taking big steps. Verbal cueing for directions -Practiced sidestepping with MIN-MOD A x2. Tendency to freeze when stepping L requiring encouragement and 3 count to step. -Attempted sidestepping over obstacles; however patient freezing and very hesistant requiring MAX cues and encouragement. Performed one step over obstacle to the L and transitioned to stepping forward over obstacles x2 more trials with Mod A x2 for safety. Patient reports wanting to go up/down large stairwell as he did yesterday. Ambulated to the stairwell and patient descends one step; he then freezes. Did not feel it safe to attempt additional stairs at this time. Instructed and assisted patient to ascend back up the step. Educated patient he may needto rest before attempting stairs again. Additional information may be available in the medical record. Patient/Family Education: Topic: unsafe to attempt stairs when freezing; gait; bed mobility; car transfer Learner::patient Method: verbal Barriers to Learning: cognitive deficits Outcome: needs practice and verbalized understanding ASSESSMENT: Patient tolerates therapy well today although toward the end of the session he begins to fatigue, starts to freeze more when instructed to step over obstalces/attempt stairs. Patient wanted to demonstrate to his that he can negotiate up/down large stairwell. Attempted first step but patient frozeand did not feel it safe to continue down the stairwell. Patient supine in bed upon PT departure, call white in reach, pt's at bedside. PLAN: HIGT - larger movement, variable direction Dynamic balance training Primary Therapist: Elisha Muniz DPT 02/17/2022 15:24 Anne Allen - 02/17/2022 1342 EDT [facility] Rehabilitation Therapy Inpatient Rehabilitation [facility] Occupational Therapy Encounter Note Date of Service: 02/17/2022 SUBJECTIVE: Feels better to move around - patient initially reporting feeling unwell at start of session (headache) however reported feeling improved by end of session. OBJECTIVE: Interventions Completed Today: First Session Start time: 0900 Total Therapy Minutes: 60 minute(s) Interventions included: Self-Care/Home Management - Completed components of self-care routine this date to progress patient's independence and safety with same. *Patient's spouse present during session. ?? Bed mobility: Supine > sit EOB with min A x 1. ?? LB dressing: Reviewed use of adaptive equipment for LB dressing. Patient uses children's court magistrate to thread shorts with mod A and increased time/ verbal cues. Completed from sitting EOB with variable sitting balance from supervision to occasional min A to correct posterior LOB. Sit > stand with min- A x 2 for pant hike. Mod A for pant hike. ?? UB dressing: Min A from seated EOB ?? Footwear: cues and mod A for use of sock aid (patient attempts to don both socks on same foot). Max-total A for donning bilateral shoes and AFO ?? Toilet transfer: Pt ambulates in/out of bathroom twice during session with rollator and min-A x 1-2. Transfer to toilet with min-contact A with use of permanent grab bars. ?? Toileting: Patient manages clothing in stance with min-mod A and increased time/ cues to initiate. Max A for thoroughness with bowel hygiene x 2 during session. ?? Grooming: Patient stands to wash face and complete oral hygiene with min- contact A. Min cues for walker placement to enable close access to sink. Noted increased time required for task initiation/ termination with washing face (wrings out wash cloth 5-6 x prior to using on face). Vital signs: Vital signs have been stable with interventions and were not monitored. Patient/Fami ly Education: Topics: Adaptive equipment for LB dressing, safety, functional transfers Learner: Patient Method: Demonstration, Verbal Barriers to Learning: Hearing deficits, Language Outcome: Needs practice, Verbalized understanding, Returned demonstration, Needs reinforcement Team Communication: Team Communication Notified: Primary occupational therapist When: Prior to therapy session By: Other (Cover sheet) About: Patient status and plan of care ASSESSMENT: Marcell reported feeling unwell at start of today's session, however was still agreeable to participatetoday and tolerated session well. His spouse was present during session and is supportive, reports that overall patient seemingly approaching baseline for functional mobility. She is available to assist as needed at d/c, though would likely benefit from hands-on caregiver ed prior to discharge. Plans to hopefully be present during therapies on Saturday. PLAN: Next Session to Include: Continue per primary OT: shower, phone use in room, metronome with functional mobility/ transfers, light IADLs (beverage prep, shelf organization), progress standing tolerance/balance - caregiver education as appropriate (spouse will try to be present Saturday for therapies) ANNE ALONSO, OT, 02/17/2022, 13:45 Nadiya Bassett MD - 02/17/2022 1007 EDT Physiatry Progress Note Admit Date: 02/10/2022 Hospital Day: LOS: 7 days Date of Service: 02/17/2022 Chief Complaint: Left MCA territory infarct: Posterior temporal lobe and parietal lobe. Subjective: Complaining in the morning of not feeling that well. No specific area of complaint. Nursing identified patient had not had a bowel movement in about 4 days. stating this is a chronic issue and not unusual. If he does not respond to oral regimens she uses a suppository by day 4 or 5. Willing to participate in therapies. No SOB, cough, chest pain, headache, nausea, reflux. Current Facility-Administered Medications Medication Route Frequency ??? acetaminophen (TYLENOL) tablet 650 mg oral Q4H PRN ??? aspirin chewable tablet 81 mg oral DAILY ??? atorvastatin (LIPITOR) tablet 80 mg oral DAILY ??? bisacodyL (DULCOLAX) EC tablet 10 mg oral Daily PRN Or ??? bisacodyL (DULCOLAX) suppository 10 mg rectal Daily PRN ??? calcium carbonate (TUMS) 200 mg calcium (500 mg) per chewable tablet tablet,chewable 1 Tablet oral QID PRN ??? carbidopa-levodopa (SINEMET) 25-250 mg per tablet 1 Tablet oral 4 times per day ??? DULoxetine (CYMBALTA) delayed release capsule 60 mg oral DAILY ??? entacapone (COMTAN) tablet 200 mg oral 3 times per day ??? gabapentin (NEURONTIN) capsule 100 mg oral BID ??? glucagon injection 1 mg intramuscular PRN ??? heparin injection 5,000 Units subcutaneous Q12H ??? metFORMIN (GLUCOPHAGE) tablet 500 mg oral DAILY (BREAKFAST) ??? metoprolol TARtrate (LOPRESSOR) tablet 50 mg oral BID ??? polyethylene glycol 3350 (MIRALAX) packet 17 g oral BID ??? senna (SENOKOT) tablet 2 Tablet oral QHS Objective/Physical Exam: VS: BP (!) 154/84 (BP Cuff Location: Right arm, BP Patient Position: Semi fowlers) Comment: rn notified Pulse 59 Temp 35.9 ??C (96.6 ??F) (Tympanic) Resp 14 Ht 182.9 cm (72.01) Wt 96.1 kg (211 lb 12.8 oz) SpO2 97% BMI 28.72 kg/m?? Pain: Patient Vitals for the past 8 hrs: Numeric Pain Level (Scale 1-10) 02/17/22 0859 5 02/17/22 0613 0 Weight: Weight : 96.1 kg (211 lb 12.8 oz) Glucose Readings (last 8 readings): No results for input(s): GLUCOSEFINGE in the last 72 hours. I&O: Intake/Output Summary (Last 24 hours) at 02/17/2022 1007 Last data filed at 02/17/2022 0613 Gross per 24 hour Intake ??? Output 2024 ml Net -2024 ml Exam: HEENT: AT/NC, PERRL, no clear visual field cut. Neck: Supple Heart: Irregularly irregular Lungs: Respirations even and unlabored at rest Abdomen: No tenderness with palpation, mildly diminished bowel sounds, nondistended Extremities: Range of motion within normal limits. Calves soft nontender. Neurologic: Alert, appears oriented. He has a moderate dysarthria with a expressive aphasia and receptive component, although processing is slowed . Motor: Grossly 5/5 except 2/5 right dorsiflexors, inverters 2/5. Sensation: No focal sensory loss, but aphasia does limit some testing. Labs: I have personally reviewed CBC: Lab Results Component Value Date WBC 7.80 02/12/2022 RBC 4.50 02/12/2022 HGB 13.0 (L) 02/12/2022 HCT 38.5 (L) 02/12/2022 MCV 86 02/12/2022 MCH 28.9 02/12/2022 MCHC 33.8 02/12/2022 PLT 198 02/12/2022 NEUTROABS 4.78 02/12/2022 BMP: Lab Results Component Value Date NA 140 02/12/2022 K 4.1 02/12/2022 CL 103 02/12/2022 CO2 29 02/12/2022 BUN 18 02/12/2022 CREATININE 0.95 02/12/2022 CALCIUM 9.1 02/12/2022 MG 1.5 (L) 02/05/2022 PHOS 3.6 02/05/2022 Assessment/Problems: (update problem list daily as appropriate) Patient Active Problem List Diagnosis Date Noted ??? *(H)History of recent stroke 02/10/2022 Priority: Medium ??? (H)Acute CVA (cerebrovascular accident) ([facility]) ([facility]) 02/04/2022 Priority: Medium ??? Stroke ([facility]) ([facility]) 02/04/2022 Priority: Medium ??? (H)Arterial ischemic stroke, MCA (middle cerebral artery), left, acute ([facility]) ([facility]) 02/04/2022 Priority: Medium ??? (H)Aphasia 02/04/2022 Priority: Medium ??? (H)Dysarthria 02/04/2022 Priority: Medium Plan: Rehabilitation plan as established by Dr. Townsend reviewed and remains appropriate as copied here below. Additional Notes regarding constipation 1. Left MCA stroke 02/04/2022 s/p mechanical thrombectomy. He has residual aphasia, with impaired mobility and self-cares. Appropriate for acute level rehabilitation including PT, OT, PLANT ANATOMIST to address mobility, self-cares, cognition and, communication and swallowing function. Continue 24-hour rehabilitation nursing for self care deficits and education. Dysphagia level 3 diet, monitor for secondary aspiration Continue aspirin 81 mg daily and atorvastatin (increased to 40 mg daily) for stroke prophylaxis. 2. Chronic atrial fibrillation: Continue metoprolol 50 mg twice daily for rate control. He has been added prior fall risk and anticoagulation was not initiated secondary to the risk. Continue to evaluate overall balance, and review if anticoagulation may be appropriate, some 10 to 14 days following stroke. 3. Parkinson disease: S/p DBS: Continue carbidopa/levodopa 25-250 mg 4 times daily and encaptone 200Mg 3 Times Daily. 4. Right foot drop: Uses a solid AFO at baseline, the brace does have a subtalar strap. Interestingly he is wearing fairly hightops shoes with the AFO. Monitor skin for any breakdown with wearing, as reportedly is a new brace. 5. 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 Continue sliding scale supplemental insulin at this time. On chart review from [facility], it appears he was on glipizide 5 mg daily prior to admission. Currently on Metformin 500mg daily. Continue gabapentin for diabetic polyneuropathy dysesthetic discomfort. 6. Chronic constipation: Per this is common at home. Generally correlates with the complaints he is having today of not feeling quite right. Continue with MiraLAX, senna. Suppository or Dulcolax tab available as needed. Nadiya Roldan MD 02/17/2022 10:07 Jaylyn Rivera, PLANT ANATOMIST - 02/17/2022 0854 EDT Speech-Language Pathology Daily and Current Progress Note PLANT ANATOMIST Diagnosis: Aphasia, Dysarthria, and Dysphagia, oral phase Medical Diagnosis: L MCA CVA Date of Onset: 02/04/22 Date of Referral: Admit to rehab 02/09/22 Subjective/Objective SUBJECTIVE: Mind is different. 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 OBJECTIVE: Date of Service: 02/17/2022 Start Time: 1000 Total Therapy minutes: 60 minute(s) language tx Patient Interview: Patient's preferred name is Marcell. Marcell is lives in [place], [place] with his , Arlyn. 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 He is originally from [place], [place] but moved to [place] when he was 21. He has one adult son, Marcell Pack, a [id number], and a granddaughter, Bala, who live in [place]. Marcell's highest level of schooling is 12th grade. Per patient's , patient did not seek speech therapy prior to this hospitalization as it was not deemed necessary; for example, stated that patient was able to carry on a conversation in a crowded room without difficulty and order meals at restaurants. Current presentation of severely reduced intelligibility is a significant departure from patient's baseline. Current Treatment Objectives: Evaluation: Goal #1: The patient will complete the PLANT ANATOMIST evaluation in the areas of: motor speech, reading comprehension, written expression, light-tech AAC options 02/13: Some subtests ofThe Reading Comprehension Battery for Aphasia (RCBA-2) (Tiny & Mamadou, 1998) were administered. Not all subtests completed d/t time constraints. Results are as follows: Raw Score Percent Correct Subtest Time Word-Visual: 10 100% 2:00 Word-Auditory: 10 100% 1:22 Word- Semantic: 10 100% 1:14 Functional Readin 40% 11:22 Synonyms: 6 60% 5:12 02/14: Administration of the RCBA-2 continued. See results below: Raw Score Percent Correct Subtest Time Sentence-Picture: 9 90% 3:00 02/15: Assessment of Intelligibility of Dysarthric Speech (AIDS) The Assessment of Intelligibility of Dysarthric Speech was administered. Sentences and word level productions were judged by an unfamiliar listener using digital audio recording. Scores are reported aspercentage of intelligibility. Results as follows: Level Percentage of Intelligibility Scored by: Word: 68% Multiple Choice Sentence: 68% Elementary Secretary Verbal Expression: Goal #1: The patient will generate automatic sequences (counting, days of the week) with 90% accuracy. 02/14: Patient attempted to count from 1-20 aloud. Patient presented with frequent semantic paraphasias (e.g., 1, 2, 3, 4, 5, 36, 37, 38...) in all trials. Strategies of reading written numbers aloud or saying numbers in unison with PLANT ANATOMIST were not successful in reducing paraphasias. Patient did recite days of the week provided written cues of the first letter of each day and the full words of Saturday-Saturday. Patient presented with frequent neologistic paraphasias (squickay) in trials with less cueing. 02/17: Couting 1-21: 95% accuracy (x1 repetition) with accuracy increased to 100% with phonemic cue. KAEL: 3 independently (43%), increased to 02/15 with phonemic cues/reframing as cloze task. 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 Goal #2: The patient will demonstrate naming of objects to confrontation with 90% accuracy. 02/15: In the context of Semantic Feature Analysis (SFA) task, Marcell stated nine 1- 2 word utterances describing various attributes of milk (FUNCTION: drink it; ATTRIBUTES: white, 40 degrees, gallon; LOCATION: farm, store, refrigerator; ASSOCIATION: [employer], cows) provided minimal verbal cueing. 02/16: In the context of an SFA task, Marcell stated many one-word utterances and several 2-3 word utterances describing stimuli Bananas: FUNCTION: eat (multiple choice); ATTRIBUTES: yellow, hot dog, medium; LOCATION: grocery store, refrigerator ASSOCIATION: could not generate Grizzly bear: FUNCTION: run from it; ATTRIBUTES: he's large many shades ; LOCATION: [place], [place], zoo; ASSOCIATION: mountains, fierce Baby: FUNCTION: have fun with it; ATTRIBUTES: color eyes, small, noisy; LOCATION: in a hospital, nursery; ASSOCIATION: circus crying and laughing 02/17: Confrontation Namin/20 correct, 95% accuracy; please see data below. 1. 14/10 6. 15 2. 14 7. 15 3. 15 8. 15 4. 14 9. 14 5. 14 10. 15 11. 14 16. 14 12. 15 17. 14 13. 14 18. 8/WC 14. 15 19. 15 15. 15 20. 15 Goal #3: Given a specific category, the patient will accurately name 2 items within it with 90% accuracy. 7/6: The patient names two items in a category with 100% success (10/10); he also names three items in a category with 100% success (10/10). He benefited from maximal cues to draw and use an alphabet board to spell when experiences difficulty with word-finding. The patient presented with frequent phonemic paraphasias during this task. 02/17: The patient names two items in a category with 100% accuracy. Patient was able to increase number of items within a category given written cues and additional processing time. Animals: The patient generated x6 items given written cues Tools: Generated x 4 items given written cues and phonemic cues; frequent literal paraphasias noted Goal #4: The patient will provide a single word to complete a phrase with 90% accuracy. 7/5: Patient generated single word pairs to opposites (e.g., salt and , black and ____) with 70% accuracy (10) provided maximal gestural, verbal, and written cues. Writing down stimuli increase accuracy and decreased pt frustration significantly. Goal #5: The patient will produce >10 utterances of >5 words during a 50 minute PLANT ANATOMIST session independently. 02/16: Pt performance of a Verb Network Strengthening Treatment (VNeST) task below: Verb Production Type Response # of Words 1. drive VNeST 1. 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 I drive my truck 3. My drives her car 4. My brother drives his bike 5. My drives her car to the grocery store after her work because she needs groceries. 1. 4 2. 4 3. 5 4. 5 5. 16 Motor Speech: Goal #1: The patient will be 90% intelligible to familiar listeners during spontaneous conversation using compensatory strategies of speaking loudly and slowly. 02/14: The pt effectively used compensatory strategy of speaking loudly with moderate success for increased intelligibility. Visual cue of SAY IT LOUD increased pt's use of strategy. 02/15: The patient independently noted intelligibility strategy of SAY IT LOUD when clinician entered room. Patient benefited from minimal cueing throughout today's session to increase volume for improved intelligibility. 02/17: The patient with reduced intelligibility across all verbal tasks today. Intelligibility decreased as a function of word length. Suspect both hypokinetic dysarthria and literal paraphasias contribute to decreased intelligibility. Patient approximately 50% intelligible to this unfamiliar listener at sentence level. Patient continues to benefit from education regarding speech intelligibility strategies. Patient/Family Education: Topic: Patient/Family education and training was completed today including understanding aphasia, word-finding strategies, intelligibility strategies, and rehab goals. Learner: patient and Arlyn mcgarry Method of Education: Verbal and Written Barriers to Learning/Education: patient auditory comprehension impairments Patient: needs further instruction and education Family: Arlyn Mcgarry, verbalized understanding Assessment/Plan ASSESSMENT/CLINICAL IMPRESSIONS: Mr. Sharlene Faith is a male 66 y.o. with PD admitted with LMCA occlusion s/p thrombectomy. Today, Marcell demonstrated improvements in automatic speech compared to prior session. Additionally, Marcell demonstrated improvement from prior session during divergent naming task and confrontation namingtask; see advancement of goals below. Marcell's extremely low intelligibility compounds with his expressive aphasia, placing communicative burden on the listener. Written cues continue to be a highly effective communicative support. 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 Speech is non-fluent with evidence of anomia and phonemic paraphasias. Repetition at the word level is intact. Confrontation, generative, and r esponsive naming are impaired. Pt's strength in receptive language is noted, including following commands, answering yes/no questions, and reading at the word level. Reading appears to be intact at theword-level, though it sharply declines functionality at the sentence-level. Patient currently needs assistance communicating basic wants and needs and directing his medical care. 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 He is 68% intelligible at both the word level and the sentence level to an unfamiliar listener. Intelligibility decreases as a function of word/phrase length. Speaking loudly is an effective strategy to increase Marcell's intelligibility. Given patient's age, independence prior to admission, and social/occupational demands, he would benefit from intensive PLANT ANATOMIST intervention. Based on the patient's premorbid level of functioning, medical diagnosis, comorbidities and patient/family support, the patient's prognosis is considered good. Previous evaluation of pt's swallow function indicated pt currently presents with a very mild oral phase dysphagia characterized by prolonged mastication and bolus formation. Etiology of dysphagia is mechanical d/t pt's current lack of teeth while he is going through process of acquiring dentures. No overt s/sx of laryngeal penetration observed during evaluation. Patient remains at low risk of aspiration at this time. Prognosis for improvement in swallow function is judged to be excellent at this time secondary to upcoming acquisition of dentures. Anticipate patient will tolerate Dysphagia 4 diet with thin liquids; reevaluation appropriate if pt acquires dentures while in this setting. Functional Communication Measures ([place] [employer], 2002). The Functional Communication Measures (FCM???s) are a series of 7 point rating scales, ranging from least functional (Level 1) to most functional (Level 7). They have been developed by SUZANNA to describedifferent aspects of patient???s functional communication and swallowing abilities over the course of PLANT ANATOMIST intervention. ?? Spoken Language Comprehension Level 6: Individual is able to understand communication in most activities, but some limitations in comprehension are still apparent in vocational, avocational, and socialactivities. The individual rarely requires minimal cueing to understand complex sentences. The individual usually uses compensatory strategies when encountering difficulty. Spoken Language Expression Level 4: The individual is successfully able to initiate communication using spoken language in simple, structured conversations in routine daily activities with familiar communication partners. The individual usually requires moderate cueing, but is able to demonstrate use of simple sentences (i.e., semantics, syntax, and morphology) and rarely uses complex sentences/messages. Motor Speech Level 3: 3The communication partner must assume primary responsibility for interpretingthe communication exchange, however, the individual is able to produce short consonant-vowel combinations or automatic words intelligibly. With consistent and moderate cueing, the individual can produce simple words and phrases intelligibly, although accuracy may vary. - Motor Speech Level 4: In simple structured conversation with familiar communication partners, the individual can produce simple words and phrases intelligibly. The individual usually requires moderate cueing in order to produce simple sentences intelligibly, although accuracy may vary. GOALS: Longterm Goals: Projected Functional Communication Measures at discharge: Spoken Language Expression Level 6: The individual is successfully able to communicate in most activities, but some limitations in spoken language are still apparent in vocational, avocational, and social activities. The individual rarely requires minimal cueing to frame complex sentences. The individual usually self-cues when encountering difficulty. ?? Short Term Goals: Evaluation: Goal #1: The patient will complete the PLANT ANATOMIST evaluation in the areas of: motor speech, reading comprehension, written expression, light-tech AAC options. - Goal met - discontinue ?? Verbal Expression: Goal #1: The patient will generate automatic sequences (counting, days of the week) with 90% accuracy. Goal #2: The patient will demonstrate naming of objects to confrontation with 90% accuracy - Goal met - discontinue New Goal #2: The patient will describe a word utilizing semantic feature analysis (SFA) or any appropriate word retrieval strategy with 90% accuracy??provided moderate verbal and written cues for word retrieval. Goal #3: Given a specific category, the patient will accurately name 5 items within it with 90% accuracy. Goal met - upgraded Goal #4: The patient will provide a single word to complete a phrase with 90% accuracy. Goal #5: The patient will produce >10 utterances of >5 words during a 50 minute PLANT ANATOMIST session independently. Motor Speech: Goal #1: The patient will be 90% intelligible to familiar listeners during spontaneous conversation using compensatory strategies of speaking loudly and slowly. PLAN/RECOMMENDATIONS: Continue/Recommend PLANT ANATOMIST services: Patient will be seen for a minimum of 5x/week @ 50 minutes. ?? DYSPHAGIA: Recommend upgrade to dysphagia 4, thin liquids - pt is in process of acquiring dentures, but currently has very few teeth. Continue general aspiration precautions (HOB elevated, slow rate, small/single bites/sips, alternateliquids/solids) ?? Healthcare Communication Access Recommendations Patient has mild Comprehension and moderate Expression impairments; pt is hard of hearing at baseline ?? Please support access to communication and healthcare information by doing the following: Plan in extra time when preparing to speak to Marcell Offer Marcell written cues as needed. ?? Supported Comprehension: ?? Supplement communication with gestures, writing, pictures ?? Be prepared to repeat and rephrase, especially as pt is hard of hearing. ?? Supported Expression: ?? Verbalize two choices or ask yes/no questions. ?? Ask closed ended questions. SOHAN Jacinto 02/17/2022 15:20 Armaan Walker MD - 02/16/2022 1034 EDT Physiatry Progress Note Admit Date: 02/10/2022 Hospital Day: LOS: 6 days Date of Service: 02/16/2022 Chief Complaint: Left MCA territory infarct: Posterior temporal lobe and parietal lobe. Subjective: Good control of his Parkinson disease. Denies any shortness of breath, joint pain. No JAVED. Current Facility-Administered Medications Medication Route Frequency ??? acetaminophen (TYLENOL) tablet 650 mg oral Q4H PRN ??? aspirin chewable tablet 81 mg oral DAILY ??? atorvastatin (LIPITOR) tablet 80 mg oral DAILY ??? bisacodyL (DULCOLAX) EC tablet 10 mg oral Daily PRN Or ??? bisacodyL (DULCOLAX) suppository 10 mg rectal Daily PRN ??? calcium carbonate (TUMS) 200 mg calcium (500 mg) per chewable tablet tablet,chewable 1 Tablet oral QID PRN ??? carbidopa-levodopa (SINEMET) 25-250 mg per tablet 1 Tablet oral 4 times per day ??? DULoxetine (CYMBALTA) delayed release capsule 60 mg oral DAILY ??? entacapone (COMTAN) tablet 200 mg oral 3 times per day ??? gabapentin (NEURONTIN) capsule 100 mg oral BID ??? glucagon injection 1 mg intramuscular PRN ??? heparin injection 5,000 Units subcutaneous Q12H ??? metFORMIN (GLUCOPHAGE) tablet 500 mg oral DAILY (BREAKFAST) ??? metoprolol TARtrate (LOPRESSOR) tablet 50 mg oral BID ??? polyethylene glycol 3350 (MIRALAX) packet 17 g oral BID ??? senna (SENOKOT) tablet 2 Tablet oral QHS Objective/Physical Exam: VS: BP (!) 150/86 Pulse 87 Temp 36.2 ??C (97.2 ??F) (Tympanic) Resp 14 Ht 182.9 cm (72.01) Wt 96.1 kg (211 lb 12.8 oz) SpO2 92% BMI 28.72 kg/m?? Pain: Patient Vitals for the past 8 hrs: Numeric Pain Level (Scale 1-10) Asleep 02/16/22 0700 0 ??? 02/16/22 0245 ??? Reassessed, sleeping comfortably, RR WNL. Weight: Weight : 96.1 kg (211 lb 12.8 oz) Glucose Readings (last 8 readings): No results for input(s): GLUCOSEFINGE in the last 72 hours. I&O: Intake/Output Summary (Last 24 hours) at 02/16/2022 1034 Last data filed at 02/16/2022 0734 Gross per 24 hour Intake ??? Output 1350 ml Net -1350 ml Exam: HEENT: AT/NC, PERRL, no clear visual field cut. Neck: Supple Heart: Regular rate and rhythm Lungs: Irregularly irregular. Abdomen: Soft, nontender, bowel sounds present all quadrants Extremities: Range of motion within normal limits. Calves soft nontender. Neurologic: Alert, appears oriented. He has a moderate dysarthria with a expressive aphasia and receptive component, although processing is slowed . Motor: Grossly 5/5 except 2/5 right dorsiflexors, inverters 2/5. Sensation: No focal sensory loss, but aphasia does limit some testing. Labs: I have personally reviewed CBC: Lab Results Component Value Date WBC 7.80 02/12/2022 RBC 4.50 02/12/2022 HGB 13.0 (L) 02/12/2022 HCT 38.5 (L) 02/12/2022 MCV 86 02/12/2022 MCH 28.9 02/12/2022 MCHC 33.8 02/12/2022 PLT 198 02/12/2022 NEUTROABS 4.78 02/12/2022 BMP: Lab Results Component Value Date NA 140 02/12/2022 K 4.1 02/12/2022 CL 103 02/12/2022 CO2 29 02/12/2022 BUN 18 02/12/2022 CREATININE 0.95 02/12/2022 CALCIUM 9.1 02/12/2022 MG 1.5 (L) 02/05/2022 PHOS 3.6 02/05/2022 Assessment/Problems: (update problem list daily as appropriate) Patient Active Problem List Diagnosis Date Noted ??? *(H)History of recent stroke 02/10/2022 Priority: Medium ??? (H)Acute CVA (cerebrovascular accident) ([facility]) ([facility]) 02/04/2022 Priority: Medium ??? Stroke ([facility] ([facility]) 02/04/2022 Priority: Medium ??? (H)Arterial ischemic stroke, MCA (middle cerebral artery), left, acute ([facility]) ([facility]) 02/04/2022 Priority: Medium ??? (H)Aphasia 02/04/2022 Priority: Medium ??? (H)Dysarthria 02/04/2022 Priority: Medium Plan: 1. Left MCA stroke 02/04/2022 s/p mechanical thrombectomy. He has residual aphasia, with impaired mobility and self-cares. Appropriate for acute level rehabilitation including PT, OT, PLANT ANATOMIST to address mobility, self-cares, cognition and, communication and swallowing function. Continue 24-hour rehabilitation nursing for self care deficits and education. Dysphagia level 3 diet, monitor for secondary aspiration Continue aspirin 81 mg daily and atorvastatin (increased to 40 mg daily) for stroke prophylaxis. 2. Chronic atrial fibrillation: Continue metoprolol 50 mg twice daily for rate control. He has been added prior fall risk and anticoagulation was not initiated secondary to the risk. Continue to evaluate overall balance, and review if anticoagulation may be appropriate, some 10 to 14 days following stroke. 3. Parkinson disease: S/p DBS: Continue carbidopa/levodopa 25-250 mg 4 times daily and encaptone 200Mg 3 Times Daily. 4. Right foot drop: Uses a solid AFO at baseline, the brace does have a subtalar strap. Interestingly he is wearing fairly hightops shoes with the AFO. Monitor skin for any breakdown with wearing, as reportedly is a new brace. 5. 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 Continue sliding scale supplemental insulin at this time. On chart review from [facility], it appears he was on glipizide 5 mg daily prior to admission. Currently on Metformin 500mg daily. Continue gabapentin for diabetic polyneuropathy dysesthetic discomfort. Armaan Townsend MD 02/16/2022 10:34 Robert Wadsworth - 02/16/2022 0825 EDT Speech-Language Pathology Daily and Current Progress Note PLANT ANATOMIST Diagnosis: Aphasia, Dysarthria, and Dysphagia, oral phase Medical Diagnosis: L MCA CVA Date of Onset: 02/04/22 Date of Referral: Admit to rehab 02/09/22 Subjective/Objective SUBJECTIVE: They took a long time to name her (re: son naming granddaughter) It's going down fine (re: swallowing) OBJECTIVE: Date of Service: 02/16/2022 Start Time: 0900 Total Therapy minutes: 60 minute(s) language tx Patient Interview: Patient's preferred name is Rick. Faith is lives in [place], [place] with his , Arlyn. 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 He is originally from [place] but moved to [place] when he was 21. He has one adult son, Marcell Pack, a [id number], and a granddaughter, Bala, who live in [place]. Marcell's highest level of schooling is 12th grade. Current Treatment Objectives: Evaluation: Goal #1: The patient will complete the PLANT ANATOMIST evaluation in the areas of: motor speech, reading comprehension, written expression, light-tech AAC options 02/13: Some subtests ofThe Reading Comprehension Battery for Aphasia (RCBA-2) (Tiny & Mamadou, 1998) were administered. Not all subtests completed d/t time constraints. Results are as follows: Raw Score Percent Correct Subtest Time Word-Visual: 10 100% 2:00 Word-Auditory: 10 100% 1:22 Word- Semantic: 10 100% 1:14 Functional Readin 40% 11:22 Synonyms: 6 60% 5:12 02/14: Administration of the RCBA-2 continued today. See results below: Raw Score Percent Correct Subtest Time Sentence-Picture: 9 90% 3:00 02/15: Assessment of Intelligibility of Dysarthric Speech (AIDS) The Assessment of Intelligibility of Dysarthric Speech was administered. Sentences and word level productions were judged by an unfamiliar listener using digital audio recording. Scores are reported aspercentage of intelligibility. Results as follows: Level Percentage of Intelligibility Scored by: Word: 68% Multiple Choice Sentence: 68% Elementary Secretary Verbal Expression: Goal #1: The patient will generate automatic sequences (counting, days of the week) with 90% accuracy. 02/14: Patient attempted to count from 1-20 aloud. Patient presented with frequent semantic paraphasias (e.g., 1, 2, 3, 4, 5, 36, 37, 38...) in all trials. Strategies of reading written numbers aloud or saying numbers in unison with PLANT ANATOMIST were not successful in reducing paraphasias. Patient did recite days of the week provided written cues of the first letter of each day and the full words of Saturday-Saturday. Patient presented with frequent neologistic paraphasias (squickay) in trials with less cueing. Goal #2: The patient will demonstrate naming of objects to confrontation with 90% accuracy. 02/15: In the context of Semantic Feature Analysis (SFA) task, Marcell stated nine 1- 2 word utterances describing various attributes of milk (FUNCTION: drink it; ATTRIBUTES: white, 40 degrees, gallon; LOCATION: farm, store, refrigerator; ASSOCIATION: [employer], cows) provided minimal verbal cueing. 02/16: In the context of an SFA task, Marcell stated many one-word utterances and several 2-3 word utterances describing stimuli Bananas: FUNCTION: eat (multiple choice); ATTRIBUTES: yellow, hot dog, medium; LOCATION: grocery store, refrigerator ASSOCIATION: could not generate Grizzly bear: FUNCTION: run from it; ATTRIBUTES: he's large many shades ; LOCATION: [place], [place], zoo; ASSOCIATION: mountains, fierce Baby: FUNCTION: have fun with it; ATTRIBUTES: color eyes, small, noisy; LOCATION: in a hospital, nursery; ASSOCIATION: circus crying and laughing Goal #3: Given a specific category, the patient will accurately name 2 items within it with 90% accuracy. 7/6: The patient names two items in a category with 100% success (10/10); he also names three items in a category with 100% success (10/10). He benefited from maximal cues to draw and use an alphabet board to spell when experiences difficulty with word-finding. The patient presented with frequent phonemic paraphasias during this task. Goal #4: The patient will provide a single word to complete a phrase with 90% accuracy. 7/5: Patient generated single word pairs to opposites (e.g., salt and , black and ____) with 70% accuracy (7/10) provided maximal gestural, verbal, and written cues. Writing down stimuli increase accuracy and decreased pt frustration significantly. Goal #5: The patient will produce >10 utterances of >5 words during a 50 minute PLANT ANATOMIST session independently. 02/16: Pt performance of a Verb Network Strengthening Treatment (VNeST) task below: Verb Production Type Response # of Words 1. drive VNeST 1. 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 I drive my truck 3. My drives her car 4. My brother drives his bike 5. My drives her car to the grocery store after her work because she needs groceries. 1. 4 2. 4 3. 5 4. 5 5. 16 Motor Speech: Goal #1: The patient will be 90% intelligible to familiar listeners during spontaneous conversation using compensatory strategies of speaking loudly and slowly. 7/6: The pt effectively used compensatory strategy of speaking loudly with moderate success for increased intelligibility. Visual cue of SAY IT LOUD increased pt's use of strategy. 7/7: The patient independently noted intelligibility strategy of SAY IT LOUD when clinician entered room. Patient benefited from minimal cueing throughout today's session to increase volume for improved intelligibility. Patient/Family Education: Topic: Patient/Family education and training was completed today including understanding aphasia, word-finding strategies, and rehab goals. Learner: patient and , Arlyn Method of Education: Verbal and Written Barriers to Learning/Education: patient auditory comprehension impairments Patient: needs further instruction and education Family: , Aristidesy, verbalized understanding Assessment/Plan ASSESSMENT/CLINICAL IMPRESSIONS: Mr.Speer Faith is a male 66 y.o. with PD admitted with LMCA occlusion s/p thrombectomy. Today, Marcell generated a 16-word utterance during a highly structured VNeST trial. He demonstrated good ability to generate 1-3 word utterances given minimal cueing in both the VNeST task and SFA task. Marcell did not demonstrate ability to generate phrases >3 words independently during today's session. Marcell's extremely low intelligibility compounds with his expressive aphasia, placing communicative burden on the listener. Written cues continue to be a highly effective communicative support. ?? 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 Speech is non-fluent with evidence of anomia and phonemic paraphasias and/or apraxic component. Repetition at the word level is intact. Confrontation, generative, and responsive naming are impaired. Pt's strength in receptive language is noted, including following commands, answering yes/no questions, and reading at the word level. Reading appears to be intact at the word-level, though it sharply declines functionality at the sentence-level.Patient currently needs assistance communicating basic wants and needs and directing his medical care. 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 He is 68% intelligible at both the word level and the sentence level to an unfamiliar listener. Speaking loudly is an effective st rategy to increase Marcell's intelligibility. Given patient's age, independence prior to admission, andsocial/occupational demands, he would benefit from intensive PLANT ANATOMIST intervention. Based on the patient's premorbid level of functioning, medical diagnosis, comorbidities and patient/family support, the patient's prognosis is considered good. Previous evaluation of pt's swallow function indicated pt currently presents with a very mild oral phase dysphagia characterized by prolonged mastication and bolus formation. Etiology of dysphagia is mechanical d/t pt's current lack of teeth while he is going through process of acquiring dentures. No overt s/sx of laryngeal penetration observed during evaluation. Patient remains at low risk of aspiration at this time. Prognosis for improvement in swallow function is judged to be excellent at this time secondary to upcoming acquisition of dentures. Anticipate patient will tolerate Dysphagia 4 diet with thin liquids; reevaluation appropriate if pt acquires dentures while in this setting. Functional Communication Measures ([place] [employer]- [employer], 2002). The Functional Communication Measures (FCM???s) are a series of 7 point rating scales, ranging from least functional (Level 1) to most functional (Level 7). They have been developed by SUZANNA to describedifferent aspects of patient???s functional communication and swallowing abilities over the course of PLANT ANATOMIST intervention. ?? Spoken Language Comprehension Level 6: Individual is able to understand communication in most activities, but some limitations in comprehension are still apparent in vocational, avocational, and socialactivities. The individual rarely requires minimal cueing to understand complex sentences. The individual usually uses compensatory strategies when encountering difficulty. Spoken Language Expression Level 4: The individual is successfully able to initiate communication using spoken language in simple, structured conversations in routine daily activities with familiar communication partners. The individual usually requires moderate cueing, but is able to demonstrate use of simple sentences (i.e., semantics, syntax, and morphology) and rarely uses complex sentences/messages. GOALS: Longterm Goals: Projected Functional Communication Measures at discharge: Spoken Language Expression Level 6: The individual is successfully able to communicate in most activities, but some limitations in spoken language are still apparent in vocational, avocational, and social activities. The individual rarely requires minimal cueing to frame complex sentences. The individual usually self-cues when encountering difficulty. ?? Short Term Goals: Evaluation: Goal #1: The patient will complete the PLANT ANATOMIST evaluation in the areas of: motor speech, reading comprehension, written expression, light-tech AAC options ?? Verbal Expression: Goal #1: The patient will generate automatic sequences (counting, days of the week) with 90% accuracy. Goal #2: The patient will demonstrate naming of objects to confrontation with 90% accuracy. Goal #3: Given a specific category, the patient will accurately name 2 items within it with 90% accuracy. Goal #4: The patient will provide a single word to complete a phrase with 90% accuracy. New Goal: Goal #5: The patient will produce >10 utterances of >5 words during a 50 minute PLANT ANATOMIST session independently. Motor Speech: Goal #1: The patient will be 90% intelligible to familiar listeners during spontaneous conversation using compensatory strategies of speaking loudly and slowly. PLAN/RECOMMENDATIONS: Continue/Recommend PLANT ANATOMIST services: Patient will be seen for a minimum of 5x/week @ 50 minutes. ?? DYSPHAGIA: Recommend upgrade to dysphagia 4, thin liquids - pt is in process of acquiring dentures, but currently has very few teeth. Continue general aspiration precautions (HOB elevated, slow rate, small/single bites/sips, alternateliquids/solids) ?? Healthcare Communication Access Recommendations Patient has mild Comprehension and moderate Expression impairments; pt is hard of hearing at baseline ?? Please support access to communication and healthcare information by doing the following: Plan in extra time when preparing to speak to Marcell ?? Supported Comprehension: ?? Supplement communication with gestures, writing, pictures ?? Be prepared to repeat and rephrase, especially as pt is hard of hearing. ?? Supported Expression: ?? Verbalize two choices or ask yes/no questions. ?? Ask closed ended questions. ROBERT WADSWORTH 02/16/2022 8:25 Dulce Maria Frias, OT - 02/16/2022 0745 EDT [facility] Rehabilitation Therapy Inpatient Rehabilitation [facility] Occupational Therapy Encounter Note Date of Service: 02/16/2022 SUBJECTIVE: What are we going to do? OBJECTIVE: Interventions Completed Today: First Session Start time: 1000 Total Therapy Minutes: 60 minute(s) Interventions included: Therapeutic Activity -Pt received in room and agreeable to session. Was dressed prior to start and preferred to defer planned shower to an upcoming session. -Practiced the following functional transfers in LSR: ?? Couch: Min assist x 2 ?? Power recliner (elevated seat prior to stand): Min assist x 2 ?? Dining chair with arms: Min assist x 1 ?? Toilet (18.5, grab bar on the left): Min assist x 2 *Rocking 3 times prior to stand helpful. *Ambulated from couch>recliner>table>bathroom>w/c with min handhold assist x 2. Cues to lengthen stride. Neuromuscular Re-education -Completed pipe tree/PVC tabletop activity to progress B UE coordination and strength. Pt completed Figure 1 diagram with cues to correct mismatched length. Demonstrated adequate use of B hands to complete. -Cards: Turned cards over one at a time using R hand, sorted them by suit and stated the suit aloud.Extra time needed, but good accuracy. Vital signs: Vital signs have been stable with interventions and were not monitored. Second Session Start time: 1300 Total Therapy Minutes: 30 minute(s) Interventions included: Therapeutic Activities -Bed>w/c transfer: Stand-step with min handhold assist x 2 -Bed mobility: Sit>supine with mod assist x 1, cues for UE/LE positioning and use of bed rail. *Pt has an electric bed at home with a trapeze, bed rails and option to raise/lower HOB. *Pt reports that his spouse sometimes helps him get out of bed. Reports frequent incontinence at night by the time his spouse is able to come assist him with toileting. He calls her using a baby monitor. May benefit from use of a [place] cath or toileting schedule. Cognition -Phone use: Pt demonstrated ability to physically dial his spouse's phone number from paper without difficulty. Role played calling the school counselor and then reading her phone number ([facility] method for calling outside of hospital). After practice, completed an actual call to his , Ana Lilia. He required assist with verbalizing his desire to call an outside #, but was then able to clearly articulate the num bers. Practiced once more, continued to need some assist with asking to dial outside hospital. May benefit from a script that he could read from. Vital signs: Vital signs have been stable with interventions and were not monitored. Team Communication: Team Communication Team Communication Status: No communication needed at this time ASSESSMENT: Pt tolerated session well and making steady gains with functional transfers, functional mobility andactivity tolerance. Shower deferred at pt request as he was dressed prior to start of session. Less freezing and improved motor initiation noted. Would benefit from continued practice with phone use to increase independence with calling spouse within rehab setting. PLAN: Next Session to Include: shower, phone use in room, metronome with functional mobility/ transfers, light IADLs (beverage prep, shelf organization), progress standing tolerance/balance *Most interventions directed by MARK Cheney, under supervision of Dulce Maria Mobley OT Yolis Delgado, PT - 02/16/2022 0701 EDT [facility] Rehabilitation Therapy Inpatient Rehabilitation [facility] Physical Therapy Encounter Note Date of Service: 02/16/2022 SUBJECTIVE: Patient/caregiver states: Better, my ___ be happy.. OBJECTIVE: Interventions Completed Today: Start Time: 1510 Individual Therapy (minutes): 35 Minutes Total Minutes Treatment 2: 35 Therapy Session: A educational therapy teacher was present for the physical therapy session There activity: Transfers: Sit> stand from WC: w rollator in front (S), w/o AD MCA1/(S) Stand > sit: MCA1 Stand step w light single SYSTEMS SOFTWARE DESIGNER incidental touchinx All performed w/o freezing Neuromuscular re education: Anticipatory and reactive postural control: ?? Stepping over 6 and 9 hurdles forward and sidewards. 1 episode of LOB stepping to R, pt initiated stepping response, scale/ timing was to small/ slow required A of 1 to recover. Gait training: High intensity gait training (HIGT): HRmax: 162 Beta blockers? (Y/N) Y Target heart rate of at least 70%-85% of HRmax, or >= 98 - 123 bpm and RPE >=7/10 or 14/20 Vitals (pre and post and recovery): Pre: 130/75, 72, 12, 100% Post: 139/74, 92, 16, 100% (using ear clip to enhance accuracy of tack picker) Equipment: R AFO, rollator briefly ?? Task Time in bout HR range RPE Assist Task conditions OG Indoor tiled fl 2:41 74-78 Unable to rate MCA1 + rollator + auditory clap to establish reza Reciprocal stepping w emphasis on long steps OG indoor/ outdoor 10:30 84 same MCA2 bilateral SYSTEMS SOFTWARE DESIGNER > 1HHA (2nd standby) 2 flights of steps down:20 steps total Stepping over hurdles (6, 9) forward and laterally Carpet > patio> grass OG outdoor 15:17 86 same same Grass, sidewalk, tarmac, curb, ramp/ incline (auditory clap required to regain reaz) > inside up 20 steps Gait deviation: w fatigue and in outdoor heat, reza slowed and step length shortened, He maintained reciprocal stepping Wheelchair mobility: Lengthened leg rests to fit and improve sitting 90/90 posture and lessen WB on IT, yellow tape placed on foot plate for visual cue to place feet UPon arriving to room pt was holding both feet up above foot plates, end of tx able to place feet consistently on foot plate/ yellow tape Patient Status at the End of the Therapy Session, The patient was left in the: chair with the: Call white in reach Patient Status at the End of the Therapy Session Comments: RN updated Patient/Family Education: Topics: HIGT, progress, purpose of adjusting leg rests length Medical Information/Signs and Symptoms: Recovery process Learner: Patient Method: Demonstration, Verbal Barriers to Learning: Language, Hearing deficits Outcome: Needs practice Learner Comments: pt will benefit from PT sessions earlier in the day ASSESSMENT: Pt improved his activity tolerance before a gait kinematics degraded. Most challenging task was side stepping over hurdles to (R). He demonstrates improved gait speed and endurance. Consider retesting gait speed and administering 6MWT. Pt demonstrated stepping reaction to LOB when stepping over rené (scale was insufficient for and indep recovery). Walking was best w incidental 1 hand hold assist when walking and poorest with rollator, PLAN: POC per primary PT YOLIS FAN, PT 02/16/2022 16:25 Jessie Hoover, PT - 02/15/2022 1617 EDT [facility] [facility] Encounter Note Date of Service: 02/15/2022 SUBJECTIVE: how did I do? OBJECTIVE: Interventions Completed Today: Start time: 1400 Total Therapy Minutes: 60 minute(s) Interventions completed today: Neuromuscular re-education: Soccer ball kicking: initially to R and then L foot, x 10 each then variable/random pattern. Min contact x 1. Mild LOB with reactive step to recover 2x. The Mini BESTest^ is the shortened version of the Balance Evaluation Systems Test (BESTest), a clinical balance assessment tool that aims to target and identify six different balance control systems sothat specific rehabilitation approaches can be designed for different balance deficits. Anticipatory: 1. Sit to stand: 1 2. Rise to toes: 0 3. Stand on one le (left (used lowest score) Left: trial 1: 1 seconds, trial 2: 1 seconds Right: NE Score: 1/6 Reactive postural control: 4. Compensatory stepping correction - forward: 0 5. Compensatory stepping correction - backward: 0 6. Compensatory stepping correction - lateral: 0 (left (used lowest score) Score: 0/6 Sensory orientation: 7. Stance: feet together, eyes open, firm surface: 8 seconds - score: 0 8. Stance: feet together, eyes closed, foam surface: 0 seconds - score: 0 9. Stance: feet apart, eyes closed, incline: 0 seconds - score: 0 Score: 0/6 Dynamic gait: 10. Change in gait speed: 1 11. Walk with horizontal head turns: 0 12. Walk with pivot turn: 1 13. Step over obstacles: 0 14. Timed Up and Go: 21.06 seconds, with dual task: 22 seconds - score: 2 Score: 4/10 Total score: 5/10 The minimal detectable change (MDC) for patients with chronic stroke is 3. (Keaton, 2014) Gait Training: High intensity gait training (HIGT): HRmax:??162?Beta blockers? (Y/N) Y Target heart rate of at least 70%-85% of HRmax, or >=??98??- 123??bpm and RPE >=7/10 or 14/20 Vitals (pre and post and recovery): Pre AY=562/69 HR=64 ?? Task Time in bout HR range RPE Assist Task conditions overground 12:21 88 Min contact x 2 -cone weaving, stepping over obstacle (shoe box) -180 deg turns -trial of metronome 80-88 bpm -focus on walking to the beat of metronome when used, no significant difference in stepping. Trial of focus on long steps and stopping/restarting walking when steps become short/fast Gait deviations: fwd flexed posture with short shuffling fast steps with fatigue, decreased arm swing, decreased step length/foot clearance Additional information may be available in the medical record. Patient/Family Education: Topic: MiniBEST test results, gait focus, metronome purpose Learner: patient Method: verbal Barriers to Learning: aphasia, OMAHA Outcome: needs practice and verbalized understanding Team Communication: Whiteboard updated to reflect mobility status ASSESSMENT: Mini Best test indicating pt is at high risk for falling and score is below age matched norms. Scorealso indicating areas of most challenge include reactive/anticipatory postural control and sensory orientation. These scores also impacted by pt's known neuropathy and need for solid AFO on R due to risk for inversion injury. Metronone without significant change in step length/speed of stepping today. PLAN: gait training including larger movements/variable direction: consider side stepping over hurdles, walking with walking sticks?, walking w/ soccer kicks Primary Therapist: Jessie Park, PT 02/15/2022 16:18 Alexia Ocasio RN - 02/15/2022 1432 EDT Patient with scabbed wound on right knee. No drainage. Large bandaid covering to protect knee. Continue to protect and monitor. Armaan Walker MD - 02/15/2022 1352 EDT Physiatry Progress Note Admit Date: 02/10/2022 Hospital Day: LOS: 5 days Date of Service: 02/15/2022 Chief Complaint: Left MCA territory infarct: Posterior temporal lobe and parietal lobe. Subjective: No new issues. Reports his Parkinson disease is under good control. Denies any shortnessof breath, joint pain. Current Facility-Administered Medications Medication Route Frequency ??? acetaminophen (TYLENOL) tablet 650 mg oral Q4H PRN ??? aspirin chewable tablet 81 mg oral DAILY ??? atorvastatin (LIPITOR) tablet 80 mg oral DAILY ??? bisacodyL (DULCOLAX) EC tablet 10 mg oral Daily PRN Or ??? bisacodyL (DULCOLAX) suppository 10 mg rectal Daily PRN ??? calcium carbonate (TUMS) 200 mg calcium (500 mg) per chewable tablet tablet,chewable 1 Tablet oral QID PRN ??? carbidopa-levodopa (SINEMET) 25-250 mg per tablet 1 Tablet oral 4 times per day ??? DULoxetine (CYMBALTA) delayed release capsule 60 mg oral DAILY ??? entacapone (COMTAN) tablet 200 mg oral 3 times per day ??? gabapentin (NEURONTIN) capsule 100 mg oral BID ??? glucagon injection 1 mg intramuscular PRN ??? heparin injection 5,000 Units subcutaneous Q12H ??? metFORMIN (GLUCOPHAGE) tablet 500 mg oral DAILY (BREAKFAST) ??? metoprolol TARtrate (LOPRESSOR) tablet 50 mg oral BID ??? polyethylene glycol 3350 (MIRALAX) packet 17 g oral BID ??? senna (SENOKOT) tablet 2 Tablet oral QHS Objective/Physical Exam: VS: BP (!) 144/81 (BP Cuff Location: Right arm, BP Patient Position: Semi fowlers) Pulse 73 Temp36.4 ??C (97.5 ??F) (Tympanic) Resp 14 Ht 182.9 cm (72.01) Wt 96.1 kg (211 lb 12.8 oz) CrN412% BMI 28.72 kg/m?? Pain: Patient Vitals for the past 8 hrs: Numeric Pain Level (Scale 1-10) 02/15/22 1000 3 02/15/22 0802 4 Weight: Weight : 96.1 kg (211 lb 12.8 oz) Glucose Readings (last 8 readings): No results for input(s): GLUCOSEFINGE in the last 72 hours. I&O: Intake/Output Summary (Last 24 hours) at 02/15/2022 1352 Last data filed at 02/14/2022 1800 Gross per 24 hour Intake ??? Output 200 ml Net -200 ml Exam: HEENT: AT/NC, PERRL, no clear visual field cut. Neck: Supple Heart: Regular rate and rhythm Lungs: Irregularly irregular. Abdomen: Soft, nontender, bowel sounds present all quadrants Extremities: Range of motion within normal limits. Calves soft nontender. Neurologic: Alert, appears oriented. He has a moderate dysarthria with a expressive aphasia and possibly receptive component, although processing appears very . Motor: Grossly 5/5 except 2/5 right dorsiflexors, inverters 2/5. Sensation: No focal sensory loss, but aphasia does limit some testing. Labs: I have personally reviewed CBC: Lab Results Component Value Date WBC 7.80 02/12/2022 RBC 4.50 02/12/2022 HGB 13.0 (L) 02/12/2022 HCT 38.5 (L) 02/12/2022 MCV 86 02/12/2022 MCH 28.9 02/12/2022 MCHC 33.8 02/12/2022 PLT 198 02/12/2022 NEUTROABS 4.78 02/12/2022 BMP: Lab Results Component Value Date NA 140 02/12/2022 K 4.1 02/12/2022 CL 103 02/12/2022 CO2 29 02/12/2022 BUN 18 02/12/2022 CREATININE 0.95 02/12/2022 CALCIUM 9.1 02/12/2022 MG 1.5 (L) 02/05/2022 PHOS 3.6 02/05/2022 Assessment/Problems: (update problem list daily as appropriate) Patient Active Problem List Diagnosis Date Noted ??? *(H)History of recent stroke 02/10/2022 Priority: Medium ??? (H)Acute CVA (cerebrovascular accident) ([facility] ([facility]) 02/04/2022 Priority: Medium ??? Stroke ([facility]) ([facility]) 02/04/2022 Priority: Medium ??? (H)Arterial ischemic stroke, MCA (middle cerebral artery), left, acute ([facility]) ([facility]) 02/04/2022 Priority: Medium ??? (H)Aphasia 02/04/2022 Priority: Medium ??? (H)Dysarthria 02/04/2022 Priority: Medium Plan: 1. Left MCA stroke 02/04/2022 s/p mechanical thrombectomy. He has residual aphasia, with impaired mobility and self-cares. Appropriate for acute level rehabilitation including PT, OT, PLANT ANATOMIST to address mobility, self-cares, cognition and, communication and swallowing function. Continue 24-hour rehabilitation nursing for self care deficits and education. Dysphagia level 3 diet, monitor for secondary aspiration Continue aspirin 81 mg daily and atorvastatin (increased to 40 mg daily) for stroke prophylaxis. 2. Chronic atrial fibrillation: Continue metoprolol 50 mg twice daily for rate control. He has been added prior fall risk and anticoagulation was not initiated secondary to the risk. Continue to evaluate overall balance, and review if anticoagulation may be appropriate, some 10 to 14 days following stroke. 3. Parkinson disease: S/p DBS: Continue carbidopa/levodopa 25-250 mg 4 times daily and 200 Mg 3 Times Daily. 4. Right foot drop: Uses a solid AFO at baseline, the brace does have a subtalar strap. Interestingly he is wearing fairly hightops shoes with the AFO. Monitor skin for any breakdown with wearing, as reportedly is a new brace. 5. 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 Continue sliding scale supplemental insulin at this time. On chart review from [facility], it appears he was on glipizide 5 mg daily prior to admission. Continue gabapentin for diabetic polyneuropathy dysesthetic discomfort. Armaan Townsend MD 02/15/2022 13:52 Ladan Álvarez MD - 02/15/2022 1211 EDT MEDICINE FOLLOW-UP Date of service: 02/15/2022 PCP: Griselda Stanley CHIEF COMPLAINT: Left MCA ischemic stroke; Parkinson's Disease with deep brain stimulator in place; atrial fibrillation not previously anticoagulated due to falls risk; diabetes mellitus type 2 SUBJECTIVE: We started some low dose metformin today (home dose: 1000 bid). BG look good so far. I dc'd the supplemental aspart SSI for now, but this may need to be restarted if his diet is advanced and if BG cannot be controlled by increasing the metformin doses alone. No fever, cough, dyspnea, GI or issues. OBJECTIVE: BP (!) 144/81 (BP Cuff Location: Right arm, BP Patient Position: Semi fowlers) Pulse 73 Temp 36.4 ??C (97.5 ??F) (Tympanic) Resp 14 Ht 182.9 cm (72.01) Wt 96.1 kg (211 lb 12.8 oz) SpO2 95% BMI 28.72 kg/m?? Vital signs are stable and the patient is afebrile. Physical exam is stable. Flat affect.. No distress. Respirations even, unlabored. Motor/sensory exam stable. MEDICATIONS: Current Facility-Administered Medications Medication Route Frequency ??? acetaminophen (TYLENOL) tablet 650 mg oral Q4H PRN ??? aspirin chewable tablet 81 mg oral DAILY ??? atorvastatin (LIPITOR) tablet 80 mg oral DAILY ??? bisacodyL (DULCOLAX) EC tablet 10 mg oral Daily PRN Or ??? bisacodyL (DULCOLAX) suppository 10 mg rectal Daily PRN ??? calcium carbonate (TUMS) 200 mg calcium (500 mg) per chewable tablet tablet,chewable 1 Tablet oral QID PRN ??? carbidopa-levodopa (SINEMET) 25-250 mg per tablet 1 Tablet oral 4 times per day ??? DULoxetine (CYMBALTA) delayed release capsule 60 mg oral DAILY ??? entacapone (COMTAN) tablet 200 mg oral 3 times per day ??? gabapentin (NEURONTIN) capsule 100 mg oral BID ??? glucagon injection 1 mg intramuscular PRN ??? heparin injection 5,000 Units subcutaneous Q12H ??? metFORMIN (GLUCOPHAGE) tablet 500 mg oral DAILY (BREAKFAST) ??? metoprolol TARtrate (LOPRESSOR) tablet 50 mg oral BID ??? polyethylene glycol 3350 (MIRALAX) packet 17 g oral BID ??? senna (SENOKOT) tablet 2 Tablet oral HS LABS: Last labs: Labs: I have personally reviewed CBC: Lab Results Component Value Date WBC 7.80 02/12/2022 RBC 4.50 02/12/2022 HGB 13.0 (L) 02/12/2022 HCT 38.5 (L) 02/12/2022 MCV 86 02/12/2022 MCH 28.9 02/12/2022 MCHC 33.8 02/12/2022 PLT 198 02/12/2022 NEUTROABS 4.78 02/12/2022 BMP: Lab Results Component Value Date NA 140 02/12/2022 K 4.1 02/12/2022 CL 103 02/12/2022 CO2 29 02/12/2022 BUN 18 02/12/2022 CREATININE 0.95 02/12/2022 CALCIUM 9.1 02/12/2022 MG 1.5 (L) 02/05/2022 PHOS 3.6 02/05/2022 ASSESSMENT/PLAN: 1. Left MCA ischemic stroke status post thrombectomy with satisfactory flow on 02/05/2022 Cont aspirin + high intensity statin PT/OT/PLANT ANATOMIST Strict falls precautions, delirium prevention measures, aspiration precautions 2. Diabetes mellitus type 2. Reviewed prior documentation and previous visits in outpatient clinic and it looks like he took metformon 1000 bid at home prior. For now, given his current BG: Cont metformin 500 daily DC'd supplemental aspart SSI Will adjust metformin as needed to keep BG around 150 without lows 3. Atrial fibrillation not previously anticoagulated Consider anticoagulation about 14 days after initial stroke, but falls risk in the past had prevented its use. Continue metoprolol 50 twice daily 4. Parkinson's disease Has been continued on his home Parkinson's meds which include: Sinemet 25???250: 1 tablet 4 times daily Entacapone 200 mg 3 times daily ?? Not sure why he is on Cymbalta + gabapentin? Parkinsons? ?? DVT prophylaxis: He is on heparin 5000 twice daily The patient is medically stable and tolerating the present level of the rehab program. The patient is to continue in the rehabilitation program. Ladan Álvarez MD Robert Muse - 02/15/2022 0848 EDT Speech-Language Pathology Daily and Current Progress Note PLANT ANATOMIST Diagnosis: Aphasia, Dysarthria, and Dysphagia, oral phase Medical Diagnosis: L MCA CVA Date of Onset: 02/04/22 Date of Referral: Admit to rehab 02/09/22 Subjective/Objective SUBJECTIVE: Say it loud! Teeth in process. OBJECTIVE: Date of Service: 02/15/2022 Start Time: 0900 Total Therapy minutes: 60 minute(s) language tx Patient Interview: Patient's preferred name is Marcell. Marcell is lives in [place], [place] with his , Arlyn. 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 He is originally from [facility] but moved to [place] when he was 21. He has one adult son, Marcell Pack, a [id number], and a granddaughter, Bala, who live in [place]. Marcell's highest level of schooling is 12th grade. CLINICAL SWALLOW EVALUATION: Current Diet: Dysphagia Diet Level: 3 (soft, easy to chew, single consistency); Thin liquids Diet prior to admission: Regular diet with thin liquids. However, approximately two weeks ago, patient began process of acquiring dentures. Almost all teeth were pulled, leaving front bottoms natural. Pt was not yet fit for dentures at time of his hospital admission. Current Status: Cognitive Status: Patient presented with aphasia, apraxia and dysarthria during evaluation. Respiratory Status: Respiratory status was judged to be WFL to support oral feeding. Clinical Swallow Evaluation: Patient/Family: Patient consented to completing the clinical bedside swallow exam. Oral Peripheral Motor Exam: Face: Face was symmetrical with adequate strength and range of motion. Lips: Adequate labial strength and range of motion. Reduced precision when alternating between smile/pucker. Tongue: Adequate lingual strength, range of motion and coordination. Velum: Symmetrical soft palate elevation during phonation attempts. Dentition: Patient is edentulous except bottom front teeth. Laryngeal Excursion: Within functional limits with anterior tipping upon palpation. Speech Intelligibility: See AIDS results below. Vocal Quality: Patient presents with a clear vocal quality. Cough: Patient presents with a strong, productive cough. Positioning: Sitting in a chair during the evaluation. Consistencies Tested: Patient was assessed with cheese, toast w/ butter, and magaly crackers. Methods of Delivery: Patient was able to self administer all items without PLANT ANATOMIST assistance using a spoon, cup and straw. Oral Phase Findings: Patient presents with prolonged mastication and bolus manipulation d/t edentulous status. Though prolonged, it appears pt was able to effectively manage bolus for adequate swallow functioning. Pharyngeal Phase: Pharyngeal phase of swallowing is within normal limits. Patient presents with timely swallow response, adequate hyo-laryngeal excursion via palpation. No overt signs/ symptoms of laryngeal penetration/ aspiration were identified. Esophageal Phase: No overt s/sx of esophageal dysfunction. Compensatory Strategies: None trialed today. Current Treatment Objectives: Evaluation: Goal #1: The patient will complete the PLANT ANATOMIST evaluation in the areas of: motor speech, reading comprehension, written expression, light-tech AAC options 02/13: Some subtests ofThe Reading Comprehension Battery for Aphasia (RCBA-2) (Tiny & Mamadou, 1998) were administered. Not all subtests completed d/t time constraints. Results are as follows: Raw Score Percent Correct Subtest Time Word-Visual: 10 100% 2:00 Word-Auditory: 10 100% 1:22 Word- Semantic: 10 100% 1:14 Functional Readin 40% 11:22 Synonyms: 6 60% 5:12 02/14: Administration of the RCBA-2 continued today. See results below: Raw Score Percent Correct Subtest Time Sentence-Picture: 9 90% 3:00 02/15: Assessment of Intelligibility of Dysarthric Speech (AIDS) The Assessment of Intelligibility of Dysarthric Speech was administered. Sentences and word level productions were judged by an unfamiliar listener using digital audio recording. Scores are reported aspercentage of intelligibility. Results as follows: Level Percentage of Intelligibility Scored by: Word: 68% Multiple Choice Sentence: TBD TBD Verbal Expression: Goal #1: The patient will generate automatic sequences (counting, days of the week) with 90% accuracy. 02/14: Patient attempted to count from 1-20 aloud. Patient presented with frequent semantic paraphasias (e.g., 1, 2, 3, 4, 5, 36, 37, 38...) in all trials. Strategies of reading written numbers aloud or saying numbers in unison with PLANT ANATOMIST were not successful in reducing paraphasias. Patient did recite days of the week provided written cues of the first letter of each day and the full words of Saturday-Saturday. Patient presented with frequent neologistic paraphasias (squickay) in trials with less cueing. Goal #2: The patient will demonstrate naming of objects to confrontation with 90% accuracy. 7/7: In the context of Semantic Feature Analysis task, Marcell stated nine 1-2 word utterances describing various attributes of milk (FUNCTION: drink it; ATTRIBUTES: white, 40 degrees, gallon; LOCATION: farm, store, refrigerator; ASSOCIATION: [employer], cows) provided minimal verbal cueing. Goal #3: Given a specific category, the patient will accurately name 2 items within it with 90% accuracy. 7/6: The patient names two items in a category with 100% success (10/10); he also names three items in a category with 100% success (10/10). He benefited from maximal cues to draw and use an alphabet board to spell when experiences difficulty with word-finding. The patient presented with frequent phonemic paraphasias during this task. Goal #4: The patient will provide a single word to complete a phrase with 90% accuracy. 7/5: Patient generated single word pairs to opposites (e.g., salt and , black and ____) with 70% accuracy (7/10) provided maximal gestural, verbal, and written cues. Writing down stimuli increase accuracy and decreased pt frustration significantly. Motor Speech: Goal #1: The patient will be 90% intelligible to familiar listeners during spontaneous conversation using compensatory strategies of speaking loudly and slowly. 7/6: The pt effectively used compensatory strategy of speaking loudly with moderate success for increased intelligibility. Visual cue of SAY IT LOUD increased pt's use of strategy. 7: The patient independently noted intelligibility strategy of SAY IT LOUD when clinician entered room. Patient benefited from minimal cueing throughout today's session to increase volume for improved intelligibility. Patient/Family Education: Topic: Patient/Family education and training was completed today including understanding aphasia, swallow safety, and rehab goals. Learner: patient and dakota, Arlyn Method of Education: Verbal and Written Barriers to Learning/Education: patient auditory comprehension impairments Patient: needs further instruction and education Family: , Arlyn, verbalized understanding Assessment/Plan ASSESSMENT/CLINICAL IMPRESSIONS: Mr.Speer Faith is a male 66 y.o. with PD admitted with LMCA occlusion s/p thrombectomy. 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 He is 68% intelligible at the word level to an unfamiliar listener. Speaking loudly is an effective strategy to increase Marcell's intelligibility. In addition, Marcell demonstrates improving ability to produce 1-word utterances in the context of an SFA task today. He benefits from written cues to supplement verbal instruction. A clinical swallow evaluation was completed today by Speech Language Pathology secondary to concernsfor oropharyngeal dysphagia, and risk of laryngeal penetration/aspiration. Patient currently presents with a very mild oral phase dysphagia characterized by prolonged mastication and bolus formation. Etiology of dysphagia is mechanical d/t pt's current lack of teeth while he is going through process of acquiring dentures. PLANT ANATOMIST discussed swallow safety measures with Marcell, who reports he is nervous to eat a regular diet in current state. No overt s/sx of laryngeal penetration observed during today's session. Patient remains at low risk of aspiration at this time. Supervision no longer recommended in this setting. Prognosis for improvement in swallow function is judged to be excellent at this time secondary to upcoming acquisition of dentures. Anticipate patient would tolerate upgrade to Dysphagia 4 diet with thin liquids. ?? 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 Speech is non-fluent with evidence of anomia and phonemic paraphasias and/or apraxic component. Repetition at the word level is intact. Confrontation, generative, and responsive naming are impaired. Pt's strength in receptive language is noted, including following commands, answering yes/no questions, and reading at the word level. Reading appears to be intact at the word-level, though it sharply declines functionality at the sentence-level.Patient currently needs assistance communicating basic wants and needs and directing his medical care. Given patient's age, independence prior to admission, and social/occupational demands, he would benefit from intensive PLANT ANATOMIST intervention. Based on the patient's premorbid level of functioning, medicaldiagnosis, comorbidities and patient/family support, the patient's prognosis is considered good. Functional Communication Measures ([place] [employer]- [employer], 2002). The Functional Communication Measures (FCM???s) are a series of 7 point rating scales, ranging from least functional (Level 1) to most functional (Level 7). They have been developed by SUZANNA to describedifferent aspects of patient???s functional communication and swallowing abilities over the course of PLANT ANATOMIST intervention. ?? Spoken Language Comprehension Level 6: Individual is able to understand communication in most activities, but some limitations in comprehension are still apparent in vocational, avocational, and socialactivities. The individual rarely requires minimal cueing to understand complex sentences. The individual usually uses compensatory strategies when encountering difficulty. Spoken Language Expression Level 4: The individual is successfully able to initiate communication using spoken language in simple, structured conversations in routine daily activities with familiar communication partners. The individual usually requires moderate cueing, but is able to demonstrate use of simple sentences (i.e., semantics, syntax, and morphology) and rarely uses complex sentences/messages. GOALS: Longterm Goals: Projected Functional Communication Measures at discharge: Spoken Language Expression Level 6: The individual is successfully able to communicate in most activities, but some limitations in spoken language are still apparent in vocational, avocational, and social activities. The individual rarely requires minimal cueing to frame complex sentences. The individual usually self-cues when encountering difficulty. ?? Short Term Goals: Evaluation: Goal #1: The patient will complete the PLANT ANATOMIST evaluation in the areas of: motor speech, reading comprehension, written expression, light-tech AAC options ?? Verbal Expression: Goal #1: The patient will generate automatic sequences (counting, days of the week) with 90% accuracy. Goal #2: The patient will demonstrate naming of objects to confrontation with 90% accuracy. Goal #3: Given a specific category, the patient will accurately name 2 items within it with 90% accuracy. Goal #4: The patient will provide a single word to complete a phrase with 90% accuracy. Motor Speech: Goal #1: The patient will be 90% intelligible to familiar listeners during spontaneous conversation using compensatory strategies of speaking loudly and slowly. PLAN/RECOMMENDATIONS: Continue/Recommend PLANT ANATOMIST services: Patient will be seen for a minimum of 5x/week @ 50 minutes. ?? DYSPHAGIA: Recommend upgrade to dysphagia 4, thin liquids - pt is in process of acquiring dentures, but currently has very few teeth. Continue general aspiration precautions (HOB elevated, slow rate, small/single bites/sips, alternateliquids/solids) ?? Healthcare Communication Access Recommendations Patient has mild Comprehension and moderate Expression impairments; pt is hard of hearing at baseline ?? Please support access to communication and healthcare information by doing the following: Plan in extra time when preparing to speak to Marcell ?? Supported Comprehension: ?? Supplement communication with gestures, writing, pictures ?? Be prepared to repeat and rephrase, especially as pt is hard of hearing. ?? Supported Expression: ?? Verbalize two choices or ask yes/no questions. ?? Ask closed ended questions. ROBERT WADSWORTH 02/15/2022 16:17 Vijaya Mishra - 02/15/2022 0743 EDT [facility] Rehabilitation Therapy Inpatient Rehabilitation [facility] Occupational Therapy Encounter Note Date of Service: 02/15/2022 SUBJECTIVE: I'm stuck re: when using children's court magistrate to thread shorts OBJECTIVE: Interventions Completed Today: First Session Start time: 1000 Total Therapy Minutes: 60 minute(s) Interventions included: Self-Care/Home Management (3) *Focus on progressing independence with dressing -Pt received in w/c and agreeable to session Dressing - Pt able to verbalize which color clothing he wanted when presented with two options - UB: Pt able to orient short and don with intermittent min A - LB: Pt able to doff braces and B shoes with extra time Pt able to doff socks with extra time Donned B LE socks with sock aid, min A to don onto sock aid d/t tight socks, min-mod A to pull sock aid from foot Sit>stand with min A x 2, doffed shorts and brief in stance at sink with extra time and verbal cues for intiation Seated in w/c, pt used children's court magistrate to doff brief/shorts with extra time and min A. Able to thread brief and shorts with children's court magistrate, extra time and mod A d/t RLE brace and shoe still on Sit>stand min A x 2, pt hiked brief and shorts in stance at sink with B hands, intermittent A provided to baljinder, min contact A for stance Cognition (1) *Started the [facility] assessment, finished sections 9-11 in the second therapy session. *No longer standardized due to modifications and was administered to gather data. [facility] Mental Status Examination ([facility]) Timbo Su's score: 6/30 This is a test that detects cognitive impairment and tests orientation, short term memory, visual spatial awareness, and working memory. (Miguel, 2006) *Modifications due to expressive and receptive aphasia included: Writing a list of objects pt had to choose from when recalling five objects verbalized prior, Marcell was able to recall 3 /5 from the list. Aphasia did not appear to impact naming animals, as Marcell was able to name 8 without much hesitation Used the clock draw test template when completing the clock portion; see session 2 for details. Marcell was able to communicate an answer by writing it down when listening to the story and recalling what happened, however, Marcell was unable to recall portions of the story correctly. Vital signs: Vital signs have been stable with interventions and were not monitored. Second Session Start time: 1300 Total Therapy Minutes: 30 minute(s) Interventions included: Cognition *Finished remainder of [facility] assessment. See above for details. Clock Drawing Test The Clock Drawing Test assesses a patient???s long-term memory, short-term memory, visual perception, visuospatial skills, selective attention, abstract thinking, and executive skills. *No longer standardized due to modifications and was administered to gather data. *Mofidications include asking pt to set time to 10 minutes to 11 o'clock. Marcell included all clock numbers except 7, placed them in corresponding order, with incorrect orientation. Provided pt with drawn clock with correct numbers and asked to set time, and Marcell attempted to draw a hand pointing to 9. Therapeutic Activity Toilet transfer: pt completed ambulatory dry run transfer w/c<>toilet with hand hold A x 2 andmin A x 2 at gait belt, verbal cues for step sequencing. Noted shuffling gait while ambulating and freezing when pivoting to sit on toilet. Sit<>stand with mod A x 2, verbal cues for hand placement - Skilled discussion regarding fatigue level as pt reported concerns with ability to transfer on andoff the toilet. Notified nursing. Vital signs: Vital signs have been stable with interventions and were not monitored. Start Time: 1000 Individual Therapy (minutes): 60 Minutes Total Minutes Treatment 1: 60 Start Time: 1300 Individual Therapy (minutes): 30 Minutes Total Minutes Treatment 2: 30 Patient/Family Education: Activity/Work/Community: Activity modification, Body mechanics, Pacing Braces and Equipment: Adaptive equipment/durable medical equipment Medical Information/Signs and Symptoms: Recovery process Mobility, Transfers, and Gait: Mobility recommendations, Transfers Safety: Fall prevention, Safety Learner: Patient Method: Demonstration, Verbal Barriers to Learning: Cognition, Language, Hearing deficits Outcome: Verbalized understanding, Returned demonstration, Needs practice, Needs reinforcement Team Communication: Team Communication Notified: Nurse When: After therapy session By: [id number] communication About: pt status, POC ASSESSMENT: Marcell was pleasant and agreeable to today's occupational therapy sessions. He continues to progress with communicating and articulating words, still requiring extra time for processing. Cognitive screens administered with modifications, highlighting impaired recall, long/short-term memory, v isuospatial skills and working memory. Expressive and receptive aphasia still present and found to be a barrier when communicating during sessions at times. Marcell remains appropriate for skilled OT services at an acute rehab level to progress independence in ADLs, functional mobility, functional transfers and self-care. PLAN: Next Session to Include: shower, phone use in room, pvc pipe build, large peg board, metronome with functional mobility/ transfers, bed mobility Vijaya Cristobal, 02/15/2022, 15:33 Associated attestation - Dulce Maria Mobley OT - 02/16/2022 0856 EDT I was present for and supervised all Occupational Therapy interventions for this patient. I have read and agree with the note as written. Navneet Contreras Heather, PT - 02/14/2022 1523 EDT [facility] Rehabilitation Therapy Inpatient Rehabilitation [facility] Physical Therapy Encounter Note Date of Service: 02/14/2022 SUBJECTIVE: Nice to meet you OBJECTIVE: Interventions Completed Today: Start time: 1330 Total Therapy Minutes: 60 minute(s) Interventions completed today: Therapeutic Activity: Sit>Stands from WC/mat with min contact x 1. Stand step transitions from ambulation, with and without hand hold: min contact x 1-2, intermittent freezing with cues to stop/restart movement. Gait Training: High intensity gait training (HIGT): HRmax:??162?Beta blockers? (Y/N) Y Target heart rate of at least 70%-85% of HRmax, or >=??98??- 123??bpm and RPE >=7/10 or 14/20 Vitals (pre and post and recovery): Pre VK=732/60 HR=62 ?? R AFO in place for treatment ?? Task Time in bout HR range RPE Assist Task conditions overground 7:36 111 Min contact x 2, intermittent hand hold Fwd, sidestepping. Focus on long steps. Bouts of focus on keeping foot on each side of line to widen CAROLINE. 4:58 81 As above Fwd/bkwd/sidestepping. Focus as above. 11:28 83 As above Fwd/sidestepping, x 4 stairs 6.5 in height. W/ fwd walking intermittent stopping/restarting with focus on big steps Treadmill ~6 attempts with bouts lasting 30 sec-1min 80s BWS on slack for safety BUE support Min contact x 1 on L side Visual cue of kicking to therapist/aid foot on each side. Speed 0.6-0.8 Steps quickly getting progressively short and fast. Cues for bigger/longer steps. overground 1:36 NA Min contact x 2 Longer slower steps Additional information may be available in the medical record. Patient/Family Education: Topic: HIGT, treadmill vs overground, focus of gait training Learner: patient Method: verbal Barriers to Learning: aphasia Outcome: verbalized understanding Team Communication: This note serves as primary means of communication ASSESSMENT: Pt with better performance with overground vs treadmill today with quick breakdown in gait mechanicson treadmill. Potentially impacted by amount of overground completed first. Trial metronome. PLAN: Cont gait training focus, re-try treadmill first Primary Therapist: Jessie Park, PT 02/14/2022 15:33 ills, Ladan Freed MD - 02/14/2022 1110 EDT MEDICINE FOLLOW-UP Date of service: 02/14/2022 PCP: Griselda Stanley CHIEF COMPLAINT: Left MCA ischemic stroke; Parkinson's Disease with deep brain stimulator in place; atrial fibrillation not previously anticoagulated due to falls risk; diabetes mellitus type 2 SUBJECTIVE: The patient was seen today. Reports no new concerns. Slowed processing and aphasia. But able to get some words out. Says the abrasion on his right knee happened when he was having the stroke and fell (?) No fever, cough, dyspnea, GI or issues. OBJECTIVE: BP 141/71 (BP Cuff Location: Left arm, BP Patient Position: Semi fowlers) Pulse 60 Temp 36.5 ??C(97.7 ??F) (Tympanic) Resp 14 Ht 182.9 cm (72.01) Wt 96.1 kg (211 lb 12.8 oz) SpO2 95% BMI 28.72 kg/m?? Vital signs are stable and the patient is afebrile. Physical exam is stable. Flat affect. Heart irregular, no murmur Lungs clear. No distress. Respirations even, unlabored. Motor/sensory exam stable. Abrasion on right knee has scabbed over and dried and is healing up without erythema of any changes. MEDICATIONS: aspirin chewable, 81 mg, oral, DAILY atorvastatin, 80 mg, oral, DAILY carbidopa-levodopa, 1 Tablet, oral, 4 times per day DULoxetine, 60 mg, oral, DAILY entacapone, 200 mg, oral, 3 times per day gabapentin, 100 mg, oral, BID heparin, 5,000 Units, subcutaneous, Q12H insulin aspart U-100, , subcutaneous, TID WC [START ON 02/15/2022] metFORMIN, 500 mg, oral, DAILY (BREAKFAST) metoprolol TARtrate, 50 mg, oral, BID polyethylene glycol 3350, 17 g, oral, BID senna, 2 Tablet, oral, QHS acetaminophen, 650 mg, Q4H PRN bisacodyL, 10 mg, Daily PRN Or bisacodyL, 10 mg, Daily PRN calcium carbonate, 1 Tablet, QID PRN glucagon, 1 mg, PRN LABS: Last labs: Labs: I have personally reviewed CBC: Lab Results Component Value Date WBC 7.80 02/12/2022 RBC 4.50 02/12/2022 HGB 13.0 (L) 02/12/2022 HCT 38.5 (L) 02/12/2022 MCV 86 02/12/2022 MCH 28.9 02/12/2022 MCHC 33.8 02/12/2022 PLT 198 02/12/2022 NEUTROABS 4.78 02/12/2022 BMP: Lab Results Component Value Date NA 140 02/12/2022 K 4.1 02/12/2022 CL 103 02/12/2022 CO2 29 02/12/2022 BUN 18 02/12/2022 CREATININE 0.95 02/12/2022 CALCIUM 9.1 02/12/2022 MG 1.5 (L) 02/05/2022 PHOS 3.6 02/05/2022 ASSESSMENT/PLAN: 1. Left MCA ischemic stroke status post thrombectomy with satisfactory flow on 02/05/2022 Cont aspirin + high intensity statin PT/OT/PLANT ANATOMIST Strict falls precautions, delirium prevention measures, aspiration precautions 2. Diabetes mellitus type 2. Reviewed prior documentation and previous visits in outpatient clinic and it looks like he took metformon 1000 bid at home prior. For now, given his current BG: Will start metformin 500 daily tomorrow am (ordered) and keep SSI aspart for high highs as needed 3. Atrial fibrillation not previously anticoagulated Consider anticoagulation about 14 days after initial stroke, but falls risk in the past had prevented its use. Continue metoprolol 50 twice daily 4. Parkinson's disease Has been continued on his home Parkinson's meds which include: Sinemet 25???250: 1 tablet 4 times daily Entacapone 200 mg 3 times daily ?? Not sure why he is on Cymbalta + gabapentin? ?? DVT prophylaxis: He is on heparin 5000 twice daily The patient is medically stable and tolerating the present level of the rehab program. The patient is to continue in the rehabilitation program. Ladan Álvarez MD Armaan Townsend MD - 02/14/2022 1034 EDT Physiatry Progress Note Admit Date: 02/10/2022 Hospital Day: LOS: 4 days Date of Service: 02/14/2022 Chief Complaint: Left MCA territory infarct: Posterior temporal lobe and parietal lobe. Subjective: More alert today. Denies any new events, including no new language issues. Denies any shortness of breath, joint pain. Notes some discomfort from his right AFO, which reports to got about 1month ago, from an security technician in [facility]. Current Facility-Administered Medications Medication Route Frequency ??? acetaminophen (TYLENOL) tablet 650 mg oral Q4H PRN ??? aspirin chewable tablet 81 mg oral DAILY ??? atorvastatin (LIPITOR) tablet 80 mg oral DAILY ??? bisacodyL (DULCOLAX) EC tablet 10 mg oral Daily PRN Or ??? bisacodyL (DULCOLAX) suppository 10 mg rectal Daily PRN ??? calcium carbonate (TUMS) 200 mg calcium (500 mg) per chewable tablet tablet,chewable 1 Tablet oral QID PRN ??? carbidopa-levodopa (SINEMET) 25-250 mg per tablet 1 Tablet oral 4 times per day ??? DULoxetine (CYMBALTA) delayed release capsule 60 mg oral DAILY ??? entacapone (COMTAN) tablet 200 mg oral 3 times per day ??? gabapentin (NEURONTIN) capsule 100 mg oral BID ??? glucagon injection 1 mg intramuscular PRN ??? heparin injection 5,000 Units subcutaneous Q12H ??? insulin aspart U-100 (NOVOLOG FLEXPEN) injection subcutaneous TID WC ??? [START ON 02/15/2022] metFORMIN (GLUCOPHAGE) tablet 500 mg oral DAILY (BREAKFAST) ??? metoprolol TARtrate (LOPRESSOR) tablet 50 mg oral BID ??? polyethylene glycol 3350 (MIRALAX) packet 17 g oral BID ??? senna (SENOKOT) tablet 2 Tablet oral QHS Objective/Physical Exam: VS: BP 141/71 (BP Cuff Location: Left arm, BP Patient Position: Semi fowlers) Pulse 60 Temp 36.5??C (97.7 ??F) (Tympanic) Resp 14 Ht 182.9 cm (72.01) Wt 96.1 kg (211 lb 12.8 oz) SpO2 95% BMI 28.72 kg/m?? Pain: No data found. Weight: Weight : 96.1 kg (211 lb 12.8 oz) Glucose Readings (last 8 readings): No results for input(s): GLUCOSEFINGE in the last 72 hours. I&O: Intake/Output Summary (Last 24 hours) at 02/14/2022 1034 Last data filed at 02/14/2022 0913 Gross per 24 hour Intake 120 ml Output 1000 ml Net -880 ml Exam: HEENT: AT/NC, PERRL, no clear visual field cut. Neck: Supple Heart: Regular rate and rhythm Lungs: Irregularly irregular. Abdomen: Soft, nontender, bowel sounds present all quadrants Extremities: Range of motion within normal limits. Calves soft nontender. Neurologic: Alert, appears oriented. He has a moderate dysarthria with a expressive aphasia and possibly receptive component, although processing appears very . Motor: Grossly 5/5 except 2/5 right dorsiflexors, inverters 2/5. Sensation: No focal sensory loss, but aphasia does limit some testing. Labs: I have personally reviewed CBC: Lab Results Component Value Date WBC 7.80 02/12/2022 RBC 4.50 02/12/2022 HGB 13.0 (L) 02/12/2022 HCT 38.5 (L) 02/12/2022 MCV 86 02/12/2022 MCH 28.9 02/12/2022 MCHC 33.8 02/12/2022 PLT 198 02/12/2022 NEUTROABS 4.78 02/12/2022 BMP: Lab Results Component Value Date NA 140 02/12/2022 K 4.1 02/12/2022 CL 103 02/12/2022 CO2 29 02/12/2022 BUN 18 02/12/2022 CREATININE 0.95 02/12/2022 CALCIUM 9.1 02/12/2022 MG 1.5 (L) 02/05/2022 PHOS 3.6 02/05/2022 Assessment/Problems: (update problem list daily as appropriate) Patient Active Problem List Diagnosis Date Noted ??? *(H)History of recent stroke 02/10/2022 Priority: Medium ??? (H)Acute CVA (cerebrovascular accident) ([facility]) ([facility]) 02/04/2022 Priority: Medium ??? Stroke ([facility]) ([facility]) 02/04/2022 Priority: Medium ??? (H)Arterial ischemic stroke, MCA (middle cerebral artery), left, acute ([facility]) ([facility]) 02/04/2022 Priority: Medium ??? (H)Aphasia 02/04/2022 Priority: Medium ??? (H)Dysarthria 02/04/2022 Priority: Medium Plan: 1. Left MCA stroke 02/04/2022 s/p mechanical thrombectomy. He has residual aphasia, with impaired mobility and self-cares. Appropriate for acute level rehabilitation including PT, OT, PLANT ANATOMIST to address mobility, self-cares, cognition and, communication and swallowing function. Continue 24-hour rehabilitation nursing for self care deficits and education. Dysphagia level 3 diet, monitor for secondary aspiration Continue aspirin 81 mg daily and atorvastatin (increased to 40 mg daily) for stroke prophylaxis. 2. Chronic atrial fibrillation: Continue metoprolol 50 mg twice daily for rate control. He has been added prior fall risk and anticoagulation was not initiated secondary to the risk. Continue to evaluate overall balance, and review if anticoagulation may be appropriate, some 10 to 14 days following stroke. 3. Parkinson disease: S/p DBS: Continue carbidopa/levodopa 25-250 mg 4 times daily and 200 Mg 3 Times Daily. 4. Right foot drop: Uses a solid AFO at baseline, the brace does have a subtalar strap. Interestingly he is wearing fairly hightops shoes with the AFO. Monitor skin for any breakdown with wearing, as reportedly is a new brace. 5. 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 Continue sliding scale supplemental insulin at this time. On chart review from [facility], it appears he was on glipizide 5 mg daily prior to admission. Continue gabapentin for diabetic polyneuropathy dysesthetic discomfort. Armaan Townsend MD 02/14/2022 10:34 Terri Stevens - 02/14/2022 0939 EDT Rehab. Case Management Assessment & Initial Discharge Plan Working Diagnosis/Presenting Problem: Admitted to acute rehab on 02/10 s/p CVA 66 y.o. male with history of Parkinson's disease status post deep brain stimulator placement, polyneuropathy, right foot drop, atrial fibrillation not anticoagulated, type 2 diabetes, hyperlipidemia presented 02/04/2022 with left MCA occlusion transferred to [facility] from [facility] following CTA outside th erapeutic window for tPA. Suspected cardioembolic etiology of stroke given A. fib not on anticoagulation. Plan is to follow-upwith neurology and cardiology. Previously not on anticoagulation due to fall risk Living Arrangements: (with whom; description of house; steps/stairs; railings; ramp) Lives at home with spouse, 1 level, with ramp entrance. Bathroom is accessible with DME in place: Hand held shower head, Handicapped height toilet, Grab bars in shower stall, Built-in shower seat, Walk-in shower. He has a Trapeze in his bed room to help with bed mobility, and bed rails. Identified barriers:none at this time Action to resolve barriers: n/a Functional Status (psychosocial and physical): Level of functioning SORORITY MOTHER: previously using walker throughout home except in areas where there are railings (bathroom). His is his primary caregiver and she would assist with lower body dressing, and brace. She would assist into the shower, only because the brace would be off, but once in the shower, he was independent. He was able to make a sandwich for lunch, or get his own breakfast. His brother would take him out for walks outside, always making sure he was safe and not falling. At night, things were more concerning: he would slip off the bed when trying to get up to urinate, sometimes he would be incontinent, either on the floor after falling, or sometimes in bed-not waking up in time. Not having the brace on, he was definitely unsteady. Current level of functioning: transfers: stand-step with mod assist of 2. The patient ambulates withmin-mod assist of 2 using rolling walker and or hand hold bilaterally , R AFO for 150 feet. Communication needs: mild receptive and moderate expressive aphasia . A&Ox3. Speech is dysarthric and non-fluent Family functioning: has a supportive spouse, and his brother lives next door. Substance Abuse, (F/U if indicated): n/a Smoking status, (F/U if indicated): n/a Behavioral Health Needs: is very concerned about his mental health and would like for him to beseen by med psych. I will email Dr Merchant. Social Supports: First contact: (name and #) Arlyn Su, /[phone] If 04/03 indicated, who would provide; what level of assist can they provide: 24 hour care already available from Identified caregiver: yes Verified: yes Community Resources: PCP: (last time seen) Dr Griselda Stanley Pharmacy/location: [facility] [place] [place]. Consent for d/c meds to be filled at [facility] Med[facility] C[facility] Pharmacy? Yes Patient chose [facility] for DME. Pt already has a has rollator u walker, transport chair, R AFO. And many bathroom DME. Pt. chose [facility] if home health services indicated Pt. chose [place], [place] if outpatient services indicated MOW: n/a Medic Alert System: n/a CFC/TBI Waiver? No Advanced Directives/DPOA: Yes or No: no Action taken if no: AD booklet given to patient, for to review. Cultural/Language/Spiritual Needs: no needs at this time Insurance/Financial Needs: Current insurance coverage: Medicare and aetna supplemental If no insurance, action taken: n/a Prescription coverage? yes LTC Medicaid indicated? Maybe, will discuss with team. Disability needs assessed? No ST or LT disability through employer n/a. Pt has been disabled x 10 years. Transportation Needs: Who will provide: his will provide Transportation for outpatient f/u? same Action taken to arrange: none Patient Goals: Assessment and Discharge Care Plan: Identify anticipated d/c plan, destination, and caregivers: I anticipate a d/c home with continued support from his and family. Follow up with home health vs outpt therapy, depending on his progress in acute rehab. Spoke with and clarified level of support previously required. She can continue to support his needs, if his level of care is similar (or better) to previous. Anticipating a return home after acute rehab. TERRI STEVENS RN CCM Jose, Robert - 02/14/2022 0844 EDT Speech-Language Pathology Daily and Current Progress Note PLANT ANATOMIST Diagnosis: Aphasia, Dysarthria, and Dysphagia, oral phase Medical Diagnosis: L MCA CVA Date of Onset: 02/04/22 Date of Referral: Admit to rehab 02/09/22 Subjective/Objective SUBJECTIVE: Is that your baby? (re: picture in office) OBJECTIVE: Date of Service: 02/14/2022 Start Time: 1100 Total Therapy minutes: 60 minute(s) language tx Patient Interview: Patient's preferred name is Marcell. Marcell is lives in [place], [place] with his , Arlyn. 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 He is originally from [facility] but moved to [place] when he was 21. He has one adult son, Marcell Pack, a [id number], and a granddaughter who live in [place]. Marcell's highest level of schooling is 12th grade. Current Treatment Objectives: Evaluation: Goal #1: The patient will complete the PLANT ANATOMIST evaluation in the areas of: motor speech, reading comprehension, written expression, light-tech AAC options 02/13: Some subtests ofThe Reading Comprehension Battery for Aphasia (RCBA-2) (Tiny & Mamadou, 1998) were administered. Not all subtests completed d/t time constraints. Results are as follows: Raw Score Percent Correct Subtest Time Word-Visual: 10 100% 2:00 Word-Auditory: 10 100% 1:22 Word- Semantic: 10 100% 1:14 Functional Readin 40% 11:22 Synonyms: 6 60% 5:12 02/14: Administration of the RCBA-2 continued today. See results below: Raw Score Percent Correct Subtest Time Sentence-Picture: 9 90% 3:00 Verbal Expression: Goal #1: The patient will generate automatic sequences (counting, days of the week) with 90% accuracy. 7/6: Patient attempted to count from 1-20 aloud. Patient presented with frequent semantic paraphasias (e.g., 1, 2, 3, 4, 5, 36, 37, 38...) in all trials. Strategies of reading written numbers aloud or saying numbers in unison with PLANT ANATOMIST were not successful in reducing paraphasias. Patient did recite days of the week provided written cues of the first letter of each day and the full words of Saturday-Saturday. Patient presented with frequent neologistic paraphasias (squickay) in trials with less cueing. Goal #2: The patient will demonstrate naming of objects to confrontation with 90% accuracy. Goal #3: Given a specific category, the patient will accurately name 2 items within it with 90% accuracy. 7/6: The patient names two items in a category with 100% success (10/10); he also names three items in a category with 100% success (10/10). He benefited from maximal cues to draw and use an alphabet board to spell when experiences difficulty with word-finding. The patient presented with frequent phonemic paraphasias during this task. Goal #4: The patient will provide a single word to complete a phrase with 90% accuracy. 7/5: Patient generated single word pairs to opposites (e.g., salt and , black and ____) with 70% accuracy (7/10) provided maximal gestural, verbal, and written cues. Writing down stimuli increase accuracy and decreased pt frustration significantly. Motor Speech: Goal #1: The patient will be 90% intelligible to familiar listeners during spontaneous conversation using compensatory strategies of speaking loudly and slowly. 7/6: The pt effectively used compensatory strategy of speaking loudly with moderate success for increased intelligibility. Visual cue of SAY IT LOUD increased pt's use of strategy. Patient/Family Education: Topic: Patient/Family education and training was completed today including the role of Speech-Language Pathology, results of previous evaluation, communication strategies, and baseline diet. Pt's , Arlyn,reported that pt is in process of getting fit with new dentures, but clarified that he typically eats a regular diet at home. Requested further swallow evaluation for possible upgrade in diet. Learner: patient and , Arlyn Method of Education: Verbal and Written Barriers to Learning/Education: patient auditory comprehension impairments Patient: needs further instruction and education Family: , Arlyn, verbalized understanding Assessment/Plan ASSESSMENT/CLINICAL IMPRESSIONS: Mr.Speer Faith is a male 66 y.o. with PD admitted with LMCA occlusion s/p thrombectomy. Throughout today's tasks, the patient presented with frequent paraphasias (phonemic, semantic, and neologistic). The patient demonstrated notable struggle to recite automatic sequences and required maximal visual and verbal cueing, which was only moderately successful. On the other hand, pt demonstrates relative strength in generative naming today provided support to draw 'clues' for himself (pt drewa heart to cue himself for 'Mcclure's Day') and to write it out (pt unable to write with pen and paper, alphabet board used for spelling instead). Patient provided alphabet board in his room to aid with communication. Intelligibility increases with patient speaks loudly, visual cue posted in his room. ?? The patient presents with functioning consistent with: at least mild receptive and moderate expressive aphasia compounded by at least moderate motor speech impairments. Speech is dysarthric and non-fluent with evidence of anomia and phonemic paraphasias and/or apraxic component. Intelligibility is reduced, especially beyond the word level. Repetition at the word level is intact. Confrontation, generative, and responsive naming are impaired. Pt's strength in receptive language is noted, including following commands, answering yes/no questions, and reading at the word level. Reading appears to be intact at the word-level, though it sharply declines functionality at the sentence-level. Patient currently needs assistance communicating basic wants and needs and directing his medical care. Given patient's age, independence prior to admission, and social/occupational demands, he would benefit from intensive PLANT ANATOMIST intervention. Based on the patient's premorbid level of functioning, medical diagnosis, comorbidities and patient/family support, the patient's prognosis is considered: Excellent. Functional Communication Measures ([place] Speech- Language- [employer], 2002). The Functional Communication Measures (FCM???s) are a series of 7 point rating scales, ranging from least functional (Level 1) to most functional (Level 7). They have been developed by SUZANNA to describedifferent aspects of patient???s functional communication and swallowing abilities over the course of PLANT ANATOMIST intervention. ?? Spoken Language Comprehension Level 6: Individual is able to understand communication in most activities, but some limitations in comprehension are still apparent in vocational, avocational, and socialactivities. The individual rarely requires minimal cueing to understand complex sentences. The individual usually uses compensatory strategies when encountering difficulty. Spoken Language Expression Level 4: The individual is successfully able to initiate communication using spoken language in simple, structured conversations in routine daily activities with familiar communication partners. The individual usually requires moderate cueing, but is able to demonstrate use of simple sentences (i.e., semantics, syntax, and morphology) and rarely uses complex sentences/messages. GOALS: Blanket Binder Goals: Projected Functional Communication Measures at discharge: Spoken Language Expression Level 6: The individual is successfully able to communicate in most activities, but some limitations in spoken language are still apparent in vocational, avocational, and social activities. The individual rarely requires minimal cueing to frame complex sentences. The individual usually self-cues when encountering difficulty. ?? Short Term Goals: Evaluation: Goal #1: The patient will complete the PLANT ANATOMIST evaluation in the areas of: motor speech, reading comprehension, written expression, light-tech AAC options ?? Verbal Expression: Goal #1: The patient will generate automatic sequences (counting, days of the week) with 90% accuracy. Goal #2: The patient will demonstrate naming of objects to confrontation with 90% accuracy. Goal #3: Given a specific category, the patient will accurately name 2 items within it with 90% accuracy. Goal #4: The patient will provide a single word to complete a phrase with 90% accuracy. New Goal Area Motor Speech: Goal #1: The patient will be 90% intelligible to familiar listeners during spontaneous conversation using compensatory strategies of speaking loudly and slowly. PLAN/RECOMMENDATIONS: Continue/Recommend PLANT ANATOMIST services: Patient will be seen for a minimum of 5x/week @ 50 minutes. ?? DYSPHAGIA: Continue dysphagia 3, thin liquids - this is at or very near baseline diet per Deferred swallow evaluation given reported baseline abilities; however, PLANT ANATOMIST is available to re-evaluate as needed Continue general aspiration precautions (HOB elevated, slow rate, small/single bites/sips, alternateliquids/solids) ?? Healthcare Communication Access Recommendations Patient has mild Comprehension and moderate Expression impairments; pt is hard of hearing at baseline ?? Please support access to communication and healthcare information by doing the following: Plan in extra time when preparing to speak to Marcell ?? Supported Comprehension: ?? Supplement communication with gestures, writing, pictures ?? Be prepared to repeat and rephrase, especially as pt is hard of hearing. ?? Supported Expression: ?? Verbalize two choices or ask yes/no questions. ?? Ask closed ended questions. ROBERT WADSWORTH 02/14/2022 15:39 Vijaya Mishra - 02/14/2022 0749 EDT [facility] Rehabilitation Therapy Inpatient Rehabilitation [facility] Occupational Therapy Encounter Note Date of Service: 02/14/2022 SUBJECTIVE: My baby girl's name... I can't re: thinking of granddaughters name It jumped into my head! re: granddaughters name OBJECTIVE: Interventions Completed Today: First Session Start time: 0900 Total Therapy Minutes: 60 minute(s) Interventions included: Self-Care/Home Management *Focus on progressing independence with ADLs - Pt received in w/c and agreeable to session Dressing - Pt able to verbalize which color clothing he wanted when presented with two options - UB: ?? Pt able to orient shirt and don with supervision and extra time - LB: ?? Pt able to doff brace and B shoes with min A to initiate velcro ?? Pt able to doff socks with extra time ?? Introduced and demonstrated sock aid to pt, pt able to return demonstration with intermittent A and donned sock on RLE ?? Sit>stand with min A x 2, doffed shorts and brief in stance at sink with min A x 2, blocking Rknee, cues to attend to R leg ?? Seated in w/c, introduced and demonstrated children's court magistrate, pt able to return demonstration and thread brief with children's court magistrate in R hand, verbal cues for technique, extra time and min A ?? Seated in w/c, pt able to thread shorts with extra time ?? Sit>stand min A x 2, pt hiked brief and shorts in stance at sink with B hands, intermittent A provided to hike, min contact A for stance Grooming - Pt located toothbrush and paste on R side of sink, applied toothpaste to brush and brushed teeth with supervision. - Pt able to comb hair initially with comb upside down, then able to correct orientation with indirect cue Cognition - When asking pt about granddaughter, pt was able to recall her name, Bala, after questioning. Pt able to explain that Bala came to visit a couple days ago, and colored a picture that was hanging up onthe board. Vital signs: Vital signs have been stable with interventions and were not monitored. Second Session Start time: 1300 Total Therapy Minutes: 30 minute(s) Interventions included: Therapeutic Activity Shower transfer: - Ambulatory transfer w/c> shower bench in walk-in shower with min contact A x 2, extra time and cues for sequencing steps - Stand-step transfer shower bench> w/c with min A x 2, extra time and cues for hand placement/ step sequencing *Skilled discussion regarding bathroom/shower set-up, bathing technique and prior level of assist Cognition Phone use: - When asked pt to recall home phone number, pt articulated numbers correctly, then demonstrated dialing on gym phone with R hand - Pt unable to recall number for or son - Rearranged phone number on board in room so pt could see/read it Vital signs: Vital signs have been stable with interventions and were not monitored. Start Time: 0900 Individual Therapy (minutes): 60 Minutes Total Minutes Treatment 1: 60 Start Time: 1300 Individual Therapy (minutes): 30 Minutes Total Minutes Treatment 2: 30 Patient/Family Education: Activity/Work/Community: Activity modification, Body mechanics Braces and Equipment: Adaptive equipment/durable medical equipment Mobility, Transfers, and Gait: Functional transfers Safety: Safety, Fall prevention Learner: Patient Method: Demonstration, Verbal Barriers to Learning: Hearing deficits, Language Outcome: Verbalized understanding, Returned demonstration, Needs practice Team Communication: Team Communication Notified: Nurse When: Prior to therapy session By: [id number] communication About: Pt status, medication administration ASSESSMENT: Marcell was pleasant and agreeable to today's occupational therapy sessions. He continues to progress with communicating, however still requires extra time for processing. He continues to benefit from verbal cues to sequence stepping and reduce freezing of gait. Marcell continues to demonstrate strong safety awareness and insight during functional transfers and while standing. Functional cognition noted to be intact, especially when participating in basic ADL tasks such as grooming. Marcell remains appropriate for skilled OT services at an acute rehab level to progress independence and participation in ADLs and functional mobility. PLAN: Next Session to Include: shower, phone use in room, pvc pipe build, large peg board Vijaya Cristobal, 02/14/2022, 14:58 Associated attestation - Dulce Maria Mobley OT - 02/16/2022 1400 EDT I was present for and directly supervised Occupational Therapy interventions for this patient. I have read and agree with the note as written. CHASE Contreras Roger Chaloner, MD - 02/13/2022 1430 EDT Physiatry Progress Note Admit Date: 02/10/2022 Hospital Day: LOS: 3 days Date of Service: 02/13/2022 Chief Complaint: Left MCA territory infarct: Posterior temporal lobe and parietal lobe. Subjective: Events of yesterday with increased aphasia noted in follow-up evaluation emergency department. Was seen by neurology, and believes he had recrudescence of his stroke with low suspicion for neurovascular event. Currently denies any headache, new vision change. No shortness of breath or GI disturbance. Current Facility-Administered Medications Medication Route Frequency ??? acetaminophen (TYLENOL) tablet 650 mg oral Q4H PRN ??? aspirin chewable tablet 81 mg [...] Tablet oral 4 times per day ??? DULoxetine (CYMBALTA) delayed release capsule 60 mg oral DAILY ??? entacapone (COMTAN) tablet 200 mg oral 3 times per day ??? gabapentin (NEURONTIN) capsule 100 mg oral BID ??? glucagon injection 1 mg intramuscular PRN ??? heparin injection 5,000 Units subcutaneous Q12H ??? insulin aspart U-100 (NOVOLOG FLEXPEN) injection subcutaneous TID WC ??? metoprolol TARtrate (LOPRESSOR) tablet 50 mg oral BID ??? polyethylene glycol 3350 (MIRALAX) packet 17 g oral BID ??? senna (SENOKOT) tablet 2 Tablet oral QHS Objective/Physical Exam: VS: BP 141/87 (BP Cuff Location: Right arm, BP Patient Position: Semi fowlers) Pulse 55 Temp 36.6 ??C (97.9 ??F) (Tympanic) Resp 14 Ht 182.9 cm (72.01) Wt 96.1 kg (211 lb 12.8 oz) SpO2 95% BMI 28.72 kg/m?? Pain: Patient Vitals for the past 8 hrs: Numeric Pain Level (Scale 1-10) 02/13/22 0838 4 02/13/22 0727 0 Weight: Weight : 96.1 kg (211 lb 12.8 oz) Glucose Readings (last 8 readings): No results for input(s): GLUCOSEFINGE in the last 72 hours. I&O: Intake/Output Summary (Last 24 hours) at 02/13/2022 1430 Last data filed at 02/13/2022 0540 Gross per 24 hour Intake ??? Output 480 ml Net -480 ml Exam: HEENT: AT/NC, PERRL, no clear visual field cut. Neck: Supple Heart: Regular rate and rhythm Lungs: Irregularly irregular. Abdomen: Soft, nontender, bowel sounds present all quadrants Extremities: Range of motion within normal limits. Calves soft nontender. Neurologic: Alert, appears oriented. He has a moderate dysarthria with a expressive aphasia and possibly receptive component, although processing appears very . Motor: Grossly 5/5 except 2/5 right dorsiflexors, inverters 2/5. Sensation: No focal sensory loss, but aphasia does limit some testing. Labs: I have personally reviewed CBC: Lab Results Component Value Date WBC 7.80 02/12/2022 RBC 4.50 02/12/2022 HGB 13.0 (L) 02/12/2022 HCT 38.5 (L) 02/12/2022 MCV 86 02/12/2022 MCH 28.9 02/12/2022 MCHC 33.8 02/12/2022 PLT 198 02/12/2022 NEUTROABS 4.78 02/12/2022 BMP: Lab Results Component Value Date NA 140 02/12/2022 K 4.1 02/12/2022 CL 103 02/12/2022 CO2 29 02/12/2022 BUN 18 02/12/2022 CREATININE 0.95 02/12/2022 CALCIUM 9.1 02/12/2022 MG 1.5 (L) 02/05/2022 PHOS 3.6 02/05/2022 Assessment/Problems: (update problem list daily as appropriate) Patient Active Problem List Diagnosis Date Noted ??? *(H)History of recent stroke 02/10/2022 Priority: Medium ??? (H)Acute CVA (cerebrovascular accident) ([facility]) ([facility]) 02/04/2022 Priority: Medium ??? Stroke ([facility]) ([facility]) 02/04/2022 Priority: Medium ??? (H)Arterial ischemic stroke, MCA (middle cerebral artery), left, acute ([facility]) ([facility]) 02/04/2022 Priority: Medium ??? (H)Aphasia 02/04/2022 Priority: Medium ??? (H)Dysarthria 02/04/2022 Priority: Medium Plan: 1. Left MCA stroke 02/04/2022 s/p mechanical thrombectomy. He has residual aphasia, with impaired mobility and self-cares. Appropriate for acute level rehabilitation including PT, OT, PLANT ANATOMIST to address mobility, self-cares, cognition and, communication and swallowing function. Continue 24-hour rehabilitation nursing for self care deficits and education. Dysphagia level 3 diet, monitor for secondary aspiration Continue aspirin 81 mg daily and atorvastatin (increased to 40 mg daily) for stroke prophylaxis. Team meeting is attended today and case discussed with all team members. I spent 35 minutes of floortime, greater than 50% of that time was spent face to face with the patient in counseling and coordination of care and counseling including review of therapy goals and barriers to discharge, recovery, functional progress. 2. Chronic atrial fibrillation: Continue metoprolol 50 mg twice daily for rate control. He has been added prior fall risk and anticoagulation was not initiated secondary to the risk. Continue to evaluate overall balance, and review if anticoagulation may be appropriate, some 10 to 14 days following stroke. 3. Parkinson disease: S/p DBS: Continue carbidopa/levodopa 25-250 mg 4 times daily and 200 Mg 3 Times Daily. 4. Right foot drop: He uses a articulating AFO at baseline. 5. 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 Continue sliding scale supplemental insulin at this time. Continue gabapentin for diabetic polyneuropathy dysesthetic discomfort. Armaan Townsend MD 02/13/2022 14:30 Robert Wadsworth - 02/13/2022 0849 EDT Speech-Language Pathology Daily and Current Progress Note PLANT ANATOMIST Diagnosis: Aphasia, Dysarthria, and Dysphagia, oral phase Medical Diagnosis: L MCA CVA Date of Onset: 02/04/22 Date of Referral: Admit to rehab 02/09/22 Subjective/Objective SUBJECTIVE: Lumper (re: pt's past work in a [employer]) OBJECTIVE: Date of Service: 02/13/2022 Start Time: 0900 Total Therapy minutes: 45 minute(s) cog/com tx (shortened d/t patient toileting needs) Patient Interview: Patient's preferred name is Marcell. Marcell is lives in [place], [place] with his , Arlyn. 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 He is originally from [place] but moved to [place] when he was 21. He has one adult son, Marcell Pack, a [id number], and a granddaughter who live in [place]. Marcell's highest level of schooling is 12th grade. Current Treatment Objectives: Evaluation: Goal #1: The patient will complete the PLANT ANATOMIST evaluation in the areas of: motor speech, reading comprehension, written expression, light-tech AAC options 02/13: Some subtests ofThe Reading Comprehension Battery for Aphasia (RCBA-2) (Tiny & Mamadou, 1998) were administered. Not all subtests completed d/t time constraints. Results are as follows: Raw Score Percent Correct Subtest Time Word-Visual: 10 100% 2:00 Word-Auditory: 10 100% 1:22 Word- Semantic: 10 100% 1:14 Functional Readin 40% 11:22 Synonyms: 6 60% 5:12 Verbal Expression: Goal #1: The patient will generate automatic sequences (counting, days of the week) with 90% accuracy. Goal #2: The patient will demonstrate naming of objects to confrontation with 90% accuracy. Goal #3: Given a specific category, the patient will accurately name 2 items within it with 90% accuracy. Goal #4: The patient will provide a single word to complete a phrase with 90% accuracy. 02/13: Patient generated single word pairs to opposites (e.g., salt and , black and ____) with 70% accuracy (02/18) provided maximal gestural, verbal, and written cues. Writing down stimuli increase accuracy and decreased pt frustration significantly. Patient/Family Education: Topic: Patient/Family education and training was completed today including the role of Speech-Language Pathology, results of today's exam/recommendations and communication strategies. Learner: patient Method of Education: Verbal and Written Barriers to Learning/Education: patient auditory comprehension impairments Patient: needs further instruction and education Family: not present Assessment/Plan ASSESSMENT/CLINICAL IMPRESSIONS: Mr.Speer Faith is a male 66 y.o. with PD admitted with LMCA occlusion s/p thrombectomy. In continued evaluation today, pt presented with intact reading skills at the single word level (100% accuracies on subtests I-III of RBCA-2). However, reading comprehension sharply declines at the sentence level (as indicated by scores of 40%-60% on subtests IV-V of RBCA-2 which require reading sentences for instructions). In addition, Marcell completed a generative naming activity with 70% accuracy; he benefited greatly from written cues to supplement verbal cueing. Findings today indicate that a light-tech AAC trials consisting specifically of single-word stimuli may be successful in supporting communication. ?? The patient presents with functioning consistent with: at least mild receptive and moderate expressive aphasia compounded by at least moderate motor speech impairments. Speech is dysarthric and non-fluent with evidence of anomia and phonemic paraphasias and/or apraxic component. Intelligibility is reduced, especially beyond the word level. Repetition at the word level is intact. Confrontation, generative, and responsive naming are impaired. Pt's strength in receptive language is noted, including following commands, answering yes/no questions, and reading at the word level. Patient currently needs assistance communicating basic wants and needs and directing his medical care. Given patient's age, independence prior to admission, and social/occupational demands, he would benefit from intensive PLANT ANATOMIST intervention. Based on the patient's premorbid level of functioning, medical diagnosis, comorbidities and patient/family support, the patient's prognosis is considered: Excellent. Functional Communication Measures ([place] Speech- Language- Hearing Association, 2002). The Functional Communication Measures (FCM???s) are a series of 7 point rating scales, ranging from least functional (Level 1) to most functional (Level 7). They have been developed by SUZANNA to describedifferent aspects of patient???s functional communication and swallowing abilities over the course of PLANT ANATOMIST intervention. ?? Spoken Language Comprehension Level 6: Individual is able to understand communication in most activities, but some limitations in comprehension are still apparent in vocational, avocational, and socialactivities. The individual rarely requires minimal cueing to understand complex sentences. The individual usually uses compensatory strategies when encountering difficulty. Spoken Language Expression Level 4: The individual is successfully able to initiate communication using spoken language in simple, structured conversations in routine daily activities with familiar communication partners. The individual usually requires moderate cueing, but is able to demonstrate use of simple sentences (i.e., semantics, syntax, and morphology) and rarely uses complex sentences/messages. GOALS: Blanket Binder Goals: Projected Functional Communication Measures at discharge: Spoken Language Expression Level 6: The individual is successfully able to communicate in most activities, but some limitations in spoken language are still apparent in vocational, avocational, and social activities. The individual rarely requires minimal cueing to frame complex sentences. The individual usually self-cues when encountering difficulty. ?? Short Term Goals: Evaluation: Goal #1: The patient will complete the PLANT ANATOMIST evaluation in the areas of: motor speech, reading comprehension, written expression, light-tech AAC options ?? Verbal Expression: Goal #1: The patient will generate automatic sequences (counting, days of the week) with 90% accuracy. Goal #2: The patient will demonstrate naming of objects to confrontation with 90% accuracy. Goal #3: Given a specific category, the patient will accurately name 2 items within it with 90% accuracy. Goal #4: The patient will provide a single word to complete a phrase with 90% accuracy. PLAN/RECOMMENDATIONS: Continue/Recommend PLANT ANATOMIST services: Patient will be seen for a minimum of 5x/week @ 50 minutes. ?? DYSPHAGIA: Continue dysphagia 3, thin liquids - this is at or very near baseline diet per Deferred swallow evaluation given reported baseline abilities; however, PLANT ANATOMIST is available to re-evaluate as needed Continue general aspiration precautions (HOB elevated, slow rate, small/single bites/sips, alternateliquids/solids) ?? Healthcare Communication Access Recommendations Patient has mild Comprehension and moderate Expression impairments; pt is hard of hearing at baseline ?? Please support access to communication and healthcare information by doing the following: Plan in extra time when preparing to speak to Marcell ?? Supported Comprehension: ?? Supplement communication with gestures, writing, pictures ?? Be prepared to repeat and rephrase, especially as pt is hard of hearing. ?? Supported Expression: ?? Verbalize two choices or ask yes/no questions. ?? Ask closed ended questions. ROBERT WADSWORTH 02/13/2022 15:33 Kandace Felix PT - 02/13/2022 0851 EDT [facility] Rehabilitation Therapy Inpatient Rehabilitation Center [facility] Physical Therapy Encounter Note Date of Service: 02/13/2022 Subjective/Objective Subjective Able to use thumbs up/thumbs down to communicate. I used to have one. (in response to asking if he had a garden) Objective Start time: 1400 Total Therapy Minutes: 60 minute(s) Interventions completed today: Gait Training: High intensity gait training (HIGT): HRmax: 162 Beta blockers? (Y/N) Y Target heart rate of at least 70%-85% of HRmax, or >= 98 - 123 bpm and RPE >=7/10 or 14/20 Vitals (pre and post and recovery): Pre FU=922/60 HR=[address] for treatment ?? Task Time in bout HR range RPE Assist Task conditions overground ~2:00 U walker min contact A x 1 2nd helper for WC follow overground, tile, open environment Room to gym treadmill ~5:00 100 4/10 BWS loose for safety only BUE support on rails Supervision x 1-2 0.8 mph Mental singing Row Row Row Your Boat to facilitate improved reza and step length treadmill 3:00 101 same 0.8 mph Playing music with 80bpm reza treadmill 1:50 Added anterior strap at pelvis same treadmill 2:08 104 7/10 same 0.8>0.5 to facilitate improved LE advancement in swing treadmill 5 bouts of 45-60 sec ~98 8/10 same 0.5 mph Pt having difficulty maintaining speed, ending up on his toes and with clonus kicking in overground ~2:00 Same as first Same as first Very narrow CAROLINE with scissoring at times. 1 instance of R foot catching on L on TM. Shuffling gait, decreased step length, decreased foot clearance, decreased trunk rotation Once back in room, pt was trying to communicate something while sitting EOB, stating Go. Therapistunable to discern what pt was trying to communicate but then it became apparent that he had had urinary incontinence. Sit to supine mod A x 1. Rolling R and L with min to Mod A x 1 with bed rail in order to change brief and get positioned in bed. Pt resting comfortably at end of session with needs metand call white in place. Patient/Family Education: Topic: HIGT, target HR Learner: patient Method: verbal Barriers to Learning: aphasia expressive>receptive Outcome: needs practice and gave thumbs up to indicate understanding Team Communication: with team in rounds. With primary PT via treatment sheet Assessment/Plan Assessment Marcell was able to achieve his target HR today on the treadmill, which he has not been able to do withoverground ambulation. Recommend focus on TM going forward in order to facilitate best neuroplastic recovery. May benefit from a communication board for basic needs in therapy (toileting, rest breaks, pain etc). Will collaborate with PLANT ANATOMIST. Plan HIGT - OG and TM Family training Dynamic balance Primary Therapist: Contact information: Pager: [phone] Kandace Bellamy PT 02/13/2022 8:42 Vijaya Mishra - 02/13/2022 0738 EDT [facility] Rehabilitation Therapy Inpatient Rehabilitation [facility] Occupational Therapy Encounter Note Date of Service: 02/13/2022 SUBJECTIVE: I can see better than I did before. OBJECTIVE: Interventions Completed Today: First Session Start time: 1030 Total Therapy Minutes: 60 minute(s) Interventions included: Neuromuscular Re-education (1) *Pt seated in w/c at table - R finger>palm translation with dice, pt able to tack picker 5-6 dice and hold in palm - R palm>finger translation with dice, pt able to release dice one at at time Self-care (1) - Pt indicated he needed to use the bathroom - Pt doffed pants and brief with max A, sit>stand with hand hold A - Seated in w/c, pt able to hold urinal and void with some spilling - Total A to thred brief, max A to thread shorts, sit>stand with hand hold A - Provide pt with w/c brake assembler erector on R side, educated pt on use of brake assembler erector and pt demonstrated understanding. Plan to add a brake assembler erector on L side once supplies becomes available Therapeutic Activities (2) Vision Screen SUBJECTIVE: Current complaints None OBJECTIVE: Vision history None Corrective lenses: Glasses; progressive Observations: Eye alignment: intact Head position: neutral Clinical Testing: Near Visual Acuity: Assessed with Godfrey Letter Near Acuity Card, tested at a distance of 16 inches. 20 / 50 *Aphasia could have affected this score Visual Bond: Assessed with confrontation testing, one eye at a time, using a pen light. impaired noted a delay with R superior field Oculomotor Control: Range of motion: intact, however, noted pt needing to readjust focus while following target with eyes Pursuits: intact Visual Attention: Assessed with Single Letter Cancellation Test Time: 399 seconds Score: 97/104 (Scores < 100 indicate impairment) *All errors made to R of midline. *Frequently undershot when crossing out H's. Cognition -Pt able to read and verbalize clock in the room upon request. Asked pt how much time he has until next session after telling him that PLANT ANATOMIST would be in at 2:00. Extra processing time to produce an answer; was 5 minutes off. Able to correct with indirect cue. Vital signs: Vital signs have been stable with interventions and were not monitored. Patient/Family Education: Activity/Work/Community: Body mechanics, Activity modification Braces and Equipment: Wheelchair parts management Mobility, Transfers, and Gait: Functional transfers Learner: Patient Method: Demonstration, Verbal Barriers to Learning: Hearing deficits, Language Outcome: Verbalized understanding, Returned demonstration, Needs practice, Needs reinforcement Team Communication: Team Communication Notified: Team When: After therapy session By: [id number] communication Notification Comments: interdisciplinary team rounds meeting About: Pt status, POC, /c date ASSESSMENT: Marcell demonstrated good tolerance to today's occupational therapy session. He was able tocommunicate more clearly today and appreciated the use of clear face masks. Marcell still requires a fair amount of assistance for ADLs, including dressing and toileting, due to freezing, R sided weaknessand processing speed. Vision screen findings show a delay in superior bond and reduced visual attention to the right, however, have not noticed functional impact on ADLs. Marcell is appropriate for skilled OT services at an acute rehab level to progress independence and participation in ADLs. PLAN: Next Session to Include: Continue ADL assessment (grooming, LB dressing, dry-run shower stall transfer with assist x 2), AE for dressing (children's court magistrate) ambulatory BADL (assist x 2) Vijaya Cristobal, 02/13/2022, 12:44 Associated attestation - Dulce Maria Mobley OT - 02/13/2022 1513 EDT I was present for and directly supervised all Occupational Therapy interventions for this patient. Ihave read and agree with the note as written. Misael Contreras Marielle, JANNETTE - 02/12/2022 1856 EDT Pt returned to unit from ED at 1715, present. Pt is A & O X 3, n/c of JAVED or pain.Resume care per MD orders. Deja burnette MS CCC-PLANT ANATOMIST - 02/12/2022 1414 EDT Speech-Language Pathology Contact Note PLANT ANATOMIST consult received for: Communication-Cognitive Evaluation/Treatment Patient transferred to ED for imaging given worsening speech and headache. He will continue to benefit from intensive PLANT ANATOMIST once medically stable. Deja Mckeon MS, CCC-PLANT ANATOMIST 02/12/2022 Speech-Language Pathology PLANT ANATOMIST Dept Pager #[phone] Ami Hart RN - 02/12/2022 1350 EDT Patient's speech worsened today (02/12). . Patient normally has expressive aphasia since stroke, but seemed to be worse. Dr. Llamas aware. Pt did not sleep last night well per patient's report and FS was67 prior to lunch. (Given 120cc juice and increased to 158). Speech remained unimproved. Patient also started in with a headache- medicated with Tylenol. and patient in agreement to send patient to the ED to be evaluated and to get a CT since CT [facility] closed [facility] today. Report givento ED triage. Patient left via [place] ambulance at 1410. Elisha Osullivan DPT - 02/12/2022 1146 EDT [facility] Rehabilitation Therapy Inpatient Rehabilitation [facility] Physical Therapy Encounter Note Date of Service: 02/12/2022 SUBJECTIVE: Patient with expressive aphasia. Difficult to understand initially. Agreeable to therapy. Reports too much after transfer out of bed. OBJECTIVE: Interventions Completed Today: Start time: 0900 Total Therapy Minutes: 60 minute(s) Interventions completed today: Therapeutic activities: -Patient supine in bed. Assessment of R ankle mobility reveals no active R ankle eversion, 3+/5 ankle dorsiflexion with associated inversion. -Supine to sit with MOD A at trunk; verbal cues for R hand placement on bedrail to assist with this transition. MOD A to scoot to edge of bed. -MAX A to don R AFO and ruby shoes in seated position. Supervision/CGA in short sitting due to tendency for posterior LOB. -Transfer bed to wheelchair on the L with MOD A x2, Trialed one person assist anterior with a secondposterior; however patient leans heavy posteriorly and freezes, reducing ability to reach for arm rest of wheelchair and take steps successfully. Utilized ruby hand held technique for second trial and patient able to perform with MOD A x2 with increased time and verbal cueing for taking steps. Hand over hand assist to find arm rests of wheelchair prior to sitting. -Practiced sit to/from stand transitions from wheelchair to RW and Ustep with MOD A x2. Verbal cueing for anterior trunk lean. Trialed ruby hands on wheelchair to push to stand as well as one hand on wheelchair, one hand on walker. Manual/tactile cues when turning toward wheelchair to ensures safety due to tendency for freezing. -Practiced finding and locking wheelchair brakes with hand over hand assist - practiced wheelchair propulsion with ruby LEs only x50 ft with encourage big steps, MIN A Gait Training: High intensity gait training (HIGT): HRmax: 162 Beta blockers? (Y/N) Y Target heart rate of at least 70%-85% of HRmax, or >= 98 - 123 bpm and RPE >=7/10 or 14/20 Vitals (pre and post and recovery): Pre 154/94 (supine) 156/77 (sitting) HR 68bpm Post 124/77 (sitting) ; used larger cuff for BPs ?? Task Time in bout HR range RPE Assist Task conditions Overground 11:37min 74bpm Did not obtain Min-Mod A + 2nd person assist for w/c follow Rolling Walker, R AFO Level ground, incorporating 90 degree and 180 degree turns Overground 4:33 min 74bpm Did not obtain MOD A x2 Bilateral hand held assist, R AFO Level ground, incorporating 90 degree and 180 degree turns Overground 10:50 min 84bpm Did not obtain MIN-MOD A + 2nd person assist for w/c follow U step walker, R AFO Level ground incorporating 90 degree and 180 degree turns Gait deviations: Decreased foot clearance, shuffling, narrow base of support, freezing at times whenturning to transfer surface, RLE step length shorter compared to L, decreased trunk rotation Provided verbal cueing throughout gait training to increase step length and maintain upright posturecloser to walker Additional information may be available in the medical record. Patient/Family Education: Topic: Safe transfers, taking bigger steps, improved quality of gait with Ustep walker vs. RW and no device Learner: patient Method: verbal, demonstration Barriers to Learning: cognitive deficitscognitive deficits Outcome: requires assist and needs practice Team Communication: Spoke with aide about adding seatbelt to wheelchair ; Spoke with patient's OT about pt.'s transfer status, decreased ankle mobility and AFO (monitoring skin and removed post session). ASSESSMENT: Patient tolerates therapy well today with rest breaks. Difficult to reach target HR during HIGT today due to shuffling, slow gait tendency. Improved quality of gait and gait speed with Ustep walker vs.RW and no device (best device for increasing HR during gait today). Increased shuffling as he fatigues. Tendency for posterior lean during sit to stand transitions. Continues to have improved ease withtransfers with ruby hand held assist. Tendency for freezing and requires tactile/verbal cues throughout mobility as well as hand over hand assistance to find target. Improved ease with sit to stand withone hand elevated onto walker and one hand on wheelchair. Patient has difficulty releasing grasp from wheelchair if pushing up with ruby hands on the chair. Assessment of R ankle mobility reveals no active R ankle eversion, 3+/5 ankle dorsiflexion with associated inversion. Monitored skin after use of AFO today, no redness or irritation noted. PLAN: Continue with HIGT as tolerated (improved step length with Ustep walker compared to RW and no device), transfer training/bed mobility training Primary Therapist: Elisha Muniz DPT 02/12/2022 11:48 Tequila Echols MD - 02/12/2022 1132 EDT Acute Rehab Daily Progress Note Admit Date: 02/10/2022 Hospital Day: LOS: 2 days Date of Service: 02/12/2022 Chief Complaint/Reason for Rehab Admission: CVA Subjective: indicates not feeling well but not able to specify. Denies pain, respiratory or GI complaint. Indicates did not sleep well and is feeling tired. Noted to have low blood sugar (67) pre lunch. drinking juice. Blood sugar responded to juice. Subsequent report of headache, noting speech is worse compared to last two days. Past family/social history: Unchanged Current Medications: Current Facility-Administered Medications Medication Route Frequency ??? acetaminophen (TYLENOL) tablet 650 mg oral Q4H PRN ??? aspirin chewable tablet 81 mg [...] Tablet oral 4 times per day ??? DULoxetine (CYMBALTA) delayed release capsule 60 mg oral DAILY ??? entacapone (COMTAN) tablet 200 mg oral 3 times per day ??? gabapentin (NEURONTIN) capsule 100 mg oral BID ??? glucagon injection 1 mg intramuscular PRN ??? heparin injection 5,000 Units subcutaneous Q12H ??? insulin aspart U-100 (NOVOLOG FLEXPEN) injection subcutaneous TID WC ??? metoprolol TARtrate (LOPRESSOR) tablet 50 mg oral BID ??? polyethylene glycol 3350 (MIRALAX) packet 17 g oral BID ??? senna (SENOKOT) tablet 2 Tablet oral QHS Facility-Administered Medications Ordered in Other Encounters Medication Route Frequency ??? fentaNYL citrate (PF) injection intravenous PRN ??? lactated ringers (LR) infusion intravenous One Step Meds ??? ondansetron (PF) (ZOFRAN) injection intravenous PRN ??? propOFol (DIPRIVAN) injection intravenous PRN ??? rocuronium (ZEMURON) injection intravenous PRN ??? sugammadex (BRIDION) injection intravenous PRN Review of Systems: Pertinent items are noted in Subjective/HPI Objective/Physical Exam: VS: Patient Vitals for the past 8 hrs: BP Pulse Resp Temp SpO2 02/12/22 0642 124/72 66 16 36.1 ??C (97 ??F) 96 % Pain: Patient Vitals for the past 8 hrs: Numeric Pain Level (Scale 1-10) Asleep 02/12/22 0904 0 ??? 02/12/22 0545 0 Reassessed, sleeping comfortably, RR WNL. 02/12/22 0354 0 Reassessed, sleeping comfortably, RR WNL. Weight: Weight : 96.1 kg (211 lb 12.8 oz) Exam: Gen: Alert, pleasant, no distress HEENT: Head NC/AT, EOMI, MMM Skin: no rashes Cardiac: Irregularly irregular Pulmonary: clear to auscultation bilaterally Abdomen: normal bowel sounds, soft, nontender Musculoskeletal: no joint tenderness, deformity or swelling Neuro: Alert, aphasia and moderate dysarthria. Responses delayed, slowed processing Affect: flat in affect Language: Speech aphasic, inconsistent with simple naming and repetition. Follows simple motor commands. EOMI, No nystagmus. No ptosis or anisocoria is noted. Face symmetric. Hearing grossly intact. dysarthric. Motor: Tone is increased bilateral upper extremities with rigidity left greater than right, cogwheeling both upper extremities, resting tremor right upper extremity. Strength 5/5 bilateral upper extremities and bilateral lower extremities except for right ankle dorsiflexion and eversion weakness. Sensation: Intact to light touch Labs: Lab Results Component Value Date WBC 7.13 02/09/2022 HCT 36.1 (L) 02/09/2022 MCV 85 02/09/2022 MCH 29.5 02/09/2022 MCHC 34.9 02/09/2022 PLT 156 02/09/2022 RBC 4.27 (L) 02/09/2022 RDWCV 14.0 02/09/2022 Kidney/Electrolytes: Lab Results Component Value Date CREATININE 0.75 02/09/2022 BUN 12 02/04/2022 NA 140 02/09/2022 K 3.9 02/09/2022 CL 108 02/09/2022 CO2 24 02/09/2022 CALCIUM 8.3 (L) 02/05/2022 CALCGFR 100 02/09/2022 Other studies: Assessment/Problems: Principal Problem: History of recent stroke Active Problems: Acute CVA (cerebrovascular accident) ([facility] ([facility]) Arterial ischemic stroke, MCA (middle cerebral artery), left, acute ([facility] ([facility]) Aphasia Dysarthria The patient is medically stable to continue in the rehabilitation program. Plan: Left MCA stroke 02/04/2022, status post mechanical thrombectomy: Residual aphasia full PT, OT, PLANT ANATOMIST assessments and therapies to address mobility, self care, cognition, communication, swallow. 24 hour rehab nursing for self care deficits Continue aspirin and statin. Atorvastatin has been increased to 40 mg daily (prior dose 10 mg) Dysphagia 3 diet. Advance per PLANT ANATOMIST Speech is more dysarthric today with greater impairments in naming. Sending to ED for imaging. ?? Chronic atrial fibrillation Continue home metoprolol 50 mg twice daily He remains off anticoagulation due to recent stroke, could consider initiation at 10 to 14 days poststroke however he was previously not on anticoagulation due to high fall risk. ?? Parkinson's disease s/p DBS He did require assistance at home previously due to Parkinson's. Continue home carbidopa levodopa 25??? 250 mg 4 times daily and entacapone 200 mg 3 times daily ?? Diabetes: A1C 6.8 on 02/05 Home meds metformin and glipizide per chart review. Currently sliding scale aspart. Hypoglycemia pre lunch- drinking juice now. Monitor FSBG Continue gabapentin for diabetic polyneuropathy ?? Right foot drop appears to be longstanding. uses AFO at baseline. ?? DVT Prophylaxis: Pharmacologic Prophylaxis: Heparin 5000 units SQ Bid Tequila Llamas MD 02/12/2022 11:32 Malathi Correia - 02/12/2022 0918 EDT Spiritual Care Department Senior Administrative Assistant Note Re: Timbo Su : 1955 Room: [place] [id number] Service: Physical Medicine and Rehabilitation Hoahaoism: Jainmarko Izquierdo has received a visit from the Spiritual Care Department on 02/12/2022. Assessment/Comments: Marcell welcomed the opportunity to see a computer programmer chief but had difficulty communicating. He did express grattitude that his family has been able to visit and support him. He also expressed frustration and sadness about his current physical situation and hopes that it will improve with time. When asked if he'd like prayer, he said yes and seemed to appreciate the prayer for continued healing, strength, and peace. DEMOGRAPHICS Spiritual Care Welcomed End of Life Patient Is Sikh Importance Not Important Current Support System Family/Friends Level of Support Strong Support ENCOUNTER DATA Date of Encounter 02/12/22 Time of Encounter 0900 Reason for Encounter Initial Visit Referred by Care Level 2 - Meet and Greet Reason not visited ENCOUNTER Needs Addressed Frustration Interventions Support, Build Relationship Sacraments Provided Date of Anointing Communion Date of Communion Date of Christianity OUTCOME Outcome Stress Level Reduced Stress Outcome of Encounter Patient Satisfied CARE PLAN Plan Patient/Family will Call if Needed Consult With Additional Support Was Clergy Needed? No, TIME STAMP: Total time spent 15 minutes in direct floor time; >50% of time was spent in spiritualcare. Malathi Alvarez 02/12/2022 9:18 Dulce Maria Frias OT - 02/12/2022 0739 EDT [facility] Rehabilitation Therapy Inpatient Rehabilitation [facility] Occupational Therapy Encounter Note Date of Service: 02/12/2022 SUBJECTIVE: Pt with frequently difficulty expressing himself during session. Stated I don't know..., I can't... and My ... at various times, but unable to complete sentences despite extra time and offering compensatory strategies. [place] and all. (when therapist noted that he liked target shooting) When asked about a picture he had in his room, he pointed and without hesitation was able to state, That's me. That's my son and that's my . OBJECTIVE: Interventions Completed Today: First Session Start time: 1000 Total Therapy Minutes: 60 minute(s) Interventions included: Neuromuscular Re-education *Pt received in w/c following PT and agreeable to session. *Did well following demonstration for ROM and strength with simple instructions provided. ?? Range of motion: B UE AROM WNL with exception of lacking ~10 degrees bilateral shoulder flexion and ~15 degrees supination. ?? Strength: B strength appeared symmetrical. WNL with exception of shoulders 4+/5 and wrists 4+/5 ?? Proprioception: Unable to follow visual/simple verbal directions, including modified technique ofpointing with opposite hand to where therapist was touching, even with eyes opened. Defer to when communication skills are improved. ?? Sensation: Unable to follow directions. Decreased R hand sensation noted during 9 Hole Peg Test (at one point pt thought he was holding a peg but wasn't). -The Box and Blocks test was performed today to assess hand coordination. This test requires the patient to move as many 1 inch cubes from one side of the box to the other in one minute. *Extra time and practice to understand B&B instructions. Side Blocks RIGHT Box & Blocks - Right (#): 19 LEFT Box & Blocks - Left (#): 21 The minimal clinical important difference (MCID) is 7 blocks for this test. -The 9 Hole Peg Test^ measures finger dexterity. Age/gender based healthy normative values (Lipscomb-Bird, 2003) 9-Hole Peg-Right (sec): Unable to complete. Placed 4 pegs in 5 minutes. 9-Hole Peg-Left (sec): 206 Male Range (seconds): mean ?? 2 standard deviations Range (seconds): mean ?? 2 standard deviations Age Right Left 21 - 25 13.11 - 19.71 14.65 - 20.35 26 - 30 13.10 - 20.66 13.40 - 22.28 31 - 35 12.14 - 22.94 12.59 - 24.35 36 - 40 13.47 - 21.95 14.02 - 23.22 41 - 45 12.78 - 24.30 13.65 - 23.33 46 - 50 13.41 - 23.29 14.19 - 24.95 51 - 55 14.16 - 23.64 13.64 - 26.04 56 - 60 11.80 - 30.00 14.86 - 28.42 61 - 65 13.87 - 27.87 15.64 - 27.56 66 - 70 14.65 - 27.81 14.87 - 29.71 ? 71+ 14.59 - 36.99 16.87 - 35.03 The minimal detectable change (MDC) for patients with acute and chronic stroke is an improvement by 32.8 seconds or a greater than 54% change from baseline score (Beverley, 2009). Landscape Nurseryman Strength^ measures the strength of a person's arts therapist. Landscape Nurseryman Strength-Dynamometer (pounds)-Right Hand Handgrip Right trial 1: 45 Handgrip Right trial 2: 50 Handgrip Right trial 3: 46 Handgrip Right Av Landscape Nurseryman Strength-Dynamometer (pounds)-Left Hand Handgrip Left trial 1: 55 Handgrip Left trial 2: 60 Handgrip Left trial 3: 54 Handgrip Left Av.33 Age/gender based healthy normative values (Wisam, 2006) Male 95% CI (pounds) 95% CI (pounds) Age Right Left 20 - 24 99.6 - 135.6 85.5 - 123.6 25 - 29 97.7 - 140.3 90.5 - 129.9 30 - 34 97.2 - 135.6 89.1 - 127.6 35 - 39 97.0 - 138.1 97.1 - 130.8 40 - 44 103.9 - 135.0 93.7 - 125.8 45 - 49 93.7 - 128.5 88.9 - 126.0 50 - 54 97.4 - 125.4 86.8 - 112.7 55 - 59 80.9 - 113.4 74.3 - 106.6 60 - 64 81.1 - 103.0 73.7 - 97.1 65 - 69 78.1 - 105.7 70.6 - 97.9 70 - 74 70.5 - 98.0 66.9 - 92.9 Minimal Detectable Difference (MDD) for a Paretic Hand Post Stroke (95% CI) Initial Landscape Nurseryman Strength in kilograms (pounds) MDD in kilograms (pounds) < 20 kilograms (44 pounds) > 4.0 kilograms (8.8 pounds) > 20 kilograms (44 pounds) > 4.11 kilograms (9.0 pounds) A re-test score greater than the MDD indicates a significant change in people with acute stroke (Saul, 2015). Therapeutic Activity -W/c>bed: Stand-step transfer to the left with min assist x 2. -Bed mobility: Sitting EOB>supine with min assist for LE management Vital signs: Vital signs have been stable with interventions and were not monitored. Patient/Family Education: Topics: standardized measures Activity/Work/Community: Activity modification Therapy Specific: Treatment plan/goals Learner: Patient, Family Method: Demonstration, Verbal Barriers to Learning: Cognition, Language, Hearing deficits Outcome: Returned demonstration, Needs reinforcement, Requires assist, Needs practice, Verbalized understanding Team Communication: Team Communication Notified: Primary physical therapist When: Prior to therapy session By: [id number] communication About Patient Status and Referrals: Patient status, Plan of care ASSESSMENT: Pt tolerated session well and was agreeable to administration of various test and measures. Communication was a barrier to pt report, as well as assessing sensation and proprioception. B UE AROM and strength WFL. Decreased bilateral arts therapist strength (L stronger then R). Unable to complete 9 Hole Peg Testwith R hand within 5 minute time frame d/t reduced coordination. Pt does have Parkinson's at baseline. Demonstrated excellent task persistence and sustained attention during activities that were challenging. PLAN: Next Session to Include: Continue per primary OT's POC. Dulce Maria Mobley OT, 02/12/2022 Favio [place], RN - 02/10/2022 1914 EDT 1700 dose of Sinemet and Contam were given late d/t medications were not available. (medications arrived at 1914). Pharmacist was contacted, Dr Llamas was notified. Antonia Walker OT - 02/10/2022 5646 EDT [facility] Rehabilitation Therapy Inpatient Rehabilitation [facility] Occupational Therapy Initial Evaluation Note Date of Service: 02/10/2022 Mobility Precautions Activity: Activity as tolerated, Level of risk of Harm A SUBJECTIVE: Pain Description: No pain reported during interview OBJECTIVE: Patient Profile: Patient is a 66 y.o. male admitted on 02/10/2022 secondary to History of recent stroke. The patient lives at [address] [place] [address] [place] [address] Support Person: Spouse Amount of Support: 24 hour assist Prior Level of Function: Home Environment: Safety Assessment / Living Environment Home environment: House Home layout: One level Access/Entrance: Ramped entrance Bathroom Set up: Hand held shower head, Handicapped height toilet, Grab bars in shower stall, Built-in shower seat, Walk-in shower Home Equipment Bathing Equipment: Grab bars in shower stall, Grab bars next to toilet Dressing/Grooming/Feeding Equipment: Long-handled shoehorn, Rn Staff, Sock aid Mobility Equipment: Walker, Wheelchair (Transport W/C) Bed Equipment: Bed rail (2 bedrails, trapeze) Support Person: Spouse Amount of Support: 24 hour assist Lives With: Spouse Prior Level of Function Comment: Patient's performance of BADLs flucuated but patient typically required assistance for UB dressing, LB dressing, shower transfer, and urinal use with frequent bladder incontinence (impacted by time required for mobility/clothing management, etc...). Patient was generally independent with toileting for BM. Patient was able to shower post set- up..Spouse assists with medication. Level of Assistance Throughout: Needed physical assistance Occupation Comment: [employer]-disability x 10 years Occupation: Retired Leisure Activities / Hobbies Comment: TV. Pt has given up fly fishing and has been struggling with target shooting. Previous / Ongoing Services: None Services Comments: sick last summer ([facility]) last summer-home therapy and then outpatient. Ended in June. Basic Activities of Daily Living - General Level of Assistance Throughout: Needed physical assistance Instrumental Activities of Daily Living - General Instrumental Activities of Daily Living Comment: Patient assisted with laundry (load washer, move clothing from washer to dryer) and would occasionally get a snack. Spouse cooks, cleans, shops, managesfinances, and provides transportation assist Level of Assistance Throughout: Needed physical assistance Medical/Surgical History: CURRENT: The patient has Acute CVA (cerebrovascular accident) ([facility]) ([facility]); Stroke ([facility]) ([facility]); Arterial ischemic stroke, MCA (middle cerebral artery), left, acute ([facility] ([facility]); Aphasia; Dysarthria; and History of recent stroke on their problem list. PAST: The patient has no past medical history on file. SURGICAL: The patient has no past surgical history on file. Current Medications: Current medications reviewed Body Functions and Performance Skills Cardiovascular/Respiratory Systems Function: Mental Functions: *Pt oriented to day, month, year, difficult to assess place due to language impairment *Pt recalled 0/3 items on BIMs *Slow processing *Decreased carryover of mobility recommendations during session - benefits from repetition *Impaired visual spatial problem solving with orienting shirt Sensory Functions: *Longstanding tingling per spouse. Difficulty manipulating shirt to orient and locating waistband ofpants to hike - warrants further assessment *Vision: wears bifocals (new), able to read sentence on white board, did not recognize that shirt was twisted/backwards Hearing: Hard of hearing Additional Comments: vs decreased auditory processing, required repetition of information, increasedvolume Neuromusculoskeletal and Movement Related Functions: ROM: Bilateral UE AROM functional for donning shirt and drinking from a cup with straw. Active shoulder scaption >90 degrees to don shirt Strength: Patient has anti-gravity movement at all pivots Control of voluntary movement: *Sitting balance: Posterior lean with decreased awareness and no correction, was able to correct with cues but was difficult to maintain, better by end of session with patient able to maintain static sitting balance EOB with close S-S. Provided assist for sitting balance EOB for UB dressing for energyconservation *Standing balance: -Static: mod assist x 2 with posterior lean progressing to min contact assist (guarding) for 17 seconds with cueing during session -Dynamic: min contact assist (guarding) for clothing management for toileting with intermittent UE support Involuntary movement: R>LUE tremor (baseline) Coordination Additional Comments: Impaired fine motor coordination for UB/LB dressing including difficulty locating and grasping waist band of pants and difficulty manipulating shirt to orient Skin and Related Structure Functions: Skin General Assessment Additional Comments: Bandage R knee Areas of Occupation and Performance Skills Basic Activities of Daily Living: Current Functional Status is as follows: Eating- Able to drink from standard cup with straw with set-up using L, did not assess with dominantRUE Grooming- To evaluate Bathing- Unsafe to evaluate due to current status with mobility UB Dressing- Mod assist/max cues LB Dressing- To evaluate Toileting- Clothing management: Max assist (mod assist for shorts, total assist for brief), hygiene not assessed Bed Mobility- To evaluate Bed/Wheelchair Transfers- Sit>stand: min-mod assist x 2 with cues for increased forward flexion, foot placement, hand placement. Stand>sit: min assist and cues for forward trunk flexion. Stand/step transfer bed<>W/C: min assist x 2 with handhold assist, mod x 2, min of 2nd with RW with assistance required for walker management Toilet Transfers- Stand/step transfer W/C<>handicap height toilet: min assist x 2 with bilateral grab bars, cues for sequencing and hand placement Tub/shower Transfers-To evaluate Ambulation: Min-mod assist x 1, min assist of 2nd with handhold assist or RW, shuffling steps and narrow base of support, cues to take bigger steps Instrumental Activities of Daily Living: Not evaluated due to current level of impairment with BADL and spouse assist for most IADL Informed Consent: The patient consented to the Occupational Therapy evaluation. The patient agrees to and understands the Occupational Therapy treatment plan and goals. Interventions Completed Today: Start Time: 1400 Individual Therapy (minutes): 30 Minutes Co-Treat (minutes): 30 Total Minutes Treatment 1: 60 Therapy Session: A educational therapy teacher was present for the occupational therapy session Self-care: *Provided instruction in UB dressing strategy (start with arms in sleeves vs overhead to enable visual monitoring) *Provided instruction in strategies for sit<>stand and functional transfers in collaboration with PT Patient/Family Education: Topics: mobility strategies (forward lean, look for heels on shoes to promote increased forward trunk flexion, push up from armrests, UB dressing Learner: Patient, Family Method: Demonstration, Verbal Barriers to Learning: Cognition, Language, Hearing deficits Outcome: Verbalized understanding, Returned demonstration, Needs reinforcement, Requires assist, Needs practice Learner Comments: Patient will benefit from consistent cues Team Communication Notified: Primary physical therapist When: During therapy session, After therapy session By: [id number] communication About: Pt status and plan, ELOS ASSESSMENT: Timbo Su was appropriate for occupational therapy (OT) evaluation to address functional deficits due to CVA in conjunction with baseline progressive Parkinson's disease, hx of gradual functionaldecline. Prior to admission pt was using a stand-up walker for mobility in the home and required assistance from his spouse for many BADLs with flucuating performance. Timbo Faith is currently functioning far below his baseline level with impairments of decreased mobility, impaired sitting/standing balance, decreased mid-line awareness, decreased functional endurance, rigidity, bradykinesia, baseline R>LUE tremor, language deficits (expressive>receptive), decreased auditory processing, impair ed visual spatial processing, and impaired cognition including decreased carryover of strategies during evaluation. These impairments impact occupational performance in areas of self-care, home management, and leisure. Pt is a good rehabilitation candidate with strengths of notable progress with mobility and sittting/standing balance during session, hx of adapting to disability, and very supportive spouse who was providing care prior to admission. Am hopeful patient will return to near baseline level of function with OT focus on remediation in conjunction with compensation to maximize independence and safety. Patient will require 24 hr S/assist at discharge consistent with baseline which spouse isable to provide. Barriers to discharge include: current need for 2 person assist for BADL and functional mobility Anticipated follow-up services: Home health OT, ? Home health aide Likely DME recommendations: Likely minimal given equipment in place at home Upper quarter screen: See NM section above for Upper Quarter Screen findings. Plan to further assessand address via therapeutic exercise program, patient/family education, and HEP. Medical Necessity: occupational therapy is medically necessary to provide compensatory and remediation training to maximize the patient's independence and participation in activities of daily living and instrumental activities of daily living. Short Term Goals: Short Term Goals: Not Applicable (due to short ELOS) Longterm Goals: Time Frame: 10 days Goal: Patient will transfer on/off handicap height toilet with S and grab bars Status: Initiated Goal: Patient will complete toileting task with supervision Status: Initiated Goal: Patient will complete UB dressing with intermittent min assist Status: Initiated Goal: Patient will complete LB dressing with 1 person assist Status: Initiated Goal: Patient will shower with supervision and set-up assist using seat and grab bars Status: Initiated Goal: Patient/spouse will verbalize understanding of team recommendations regarding incontinence management Status: Initiated Goal: Patient will require supervision for functional mobility within BADL Status: Initiated Goal: Patient will compete grooming tasks with supervision from stance per improved standing balance Status: Initiated Goal: Patient/spouse will verbalize understanding of fall prevention recommendations Status: Initiated Goal: Patient/spouse will be independent with HEP for UE strengthening to improve overall strength Status: Initiated Goal: Spouse will demonstrate the ability to safely assist patient with BADLs PLAN: Occupational therapy will be provided by the occupational therapist and/or assistant corporate secretary when medically appropriate Frequency: Times per week Frequency Comments: 5-6x/week Intensity: 60-90 minutes Duration: Duration of rehabilitation admission Duration Comments: ~10 days Interventions May Include: Cognitive function intervention, Neuromuscular re- education, Self-care/home management, Therapeutic exercise, Therapeutic activities Patient/Family Education: Home exercise program, Falls Prevention, Discharge planning, Patient education, Safety, Family/caregiver education, Equipment, Role of physical therapy/occupational therapy/rehabilitation Further Data: Self-care assessment, Upper extremity assessment, Cognitive screen, IRF-MILANA assessment, Vision screen Recommended Discharge Destination: Home with family support/supervision Therapy Specific Services: Occupational therapy, Home therapy with supervision Next Session to Include: Continue ADL assessment (grooming, LB dressing, dry-run shower stall transfer with assist x 2), ambulatory BADL (assist x 2), upper quarter screen, vision screen, IRF-MILANA, box/blocks, arts therapist, consistent cues for sit<>stand ANTONIA WALKER OT, 02/10/2022, 20:30 Deja Nixon, [facility]PLANT ANATOMIST - 02/10/2022 1256 EDT Speech-Language Pathology Communication Evaluation PLANT ANATOMIST Diagnosis: Aphasia: , Dysarthria: and Dysphagia, oral phase: Medical Diagnosis: L MCA CVA Date of Onset: 02/04/22 Date of Referral: Admit to rehab 02/09/22 Start Time: 1400 Total Therapy minutes: 50 minute(s) (session ended early 2/2 pt fatigue) SUBJECTIVE: What about the .... H-O-L.... holiday? pt asking about therapy on Saturday OBJECTIVE: Per MD H&P: 66 y.o. male with history of Parkinson's disease status post deep brain stimulator placement, polyneuropathy, right foot drop, atrial fibrillation not anticoagulated, type 2 diabetes, hyperlipidemia presented 02/04/2022 with left MCA occlusion transferred to [facility] from [facility] following CTA outside therapeutic window for tPA. NIH 11 on arrival. Underwent mechanical thrombectomy revealing occlusion of left anterior M2 branch, complete perfusion achieved after first pass. TTE w/ preserved EF (55-60%) and possible hypokinesis of mid-apical inferoseptal wall, but no notable thrombus or valvular vegetations. Severely dilated LA. Suspected cardioembolic etiology of stroke given A. fib not on anticoagulation. Plan is to follow-upwith neurology and cardiology. Previously not on anticoagulation due to fall risk. ?? Currently he is requiring assistance with functional mobility and basic self care. Patient was evaluated and found appropriate for acute inpatient rehabilitation program. ?? This patient's current status is similar to the pre-admission screening and is appropriate for inpatient rehabilitation admission. ?? Previously requiring assist for mobility and self care due to Parkinson's disease. Was ambulating with walker and AFO. Past Medical History: History reviewed. No pertinent past medical history. Current Evaluation: The [place] Diagnostic Aphasia Evaluation (BDAE) and [place] Naming Test (BNT) were utilized to evaluate current speech-language/cognitive-linguistic function. Behavior: During evaluation today, patient presented as alert and cooperative. Per pt and , pt very tired after this long day of transferring to [facility] and [employer]. Per patient's , at baseline pt is [place] which occasionally impacts his communication (ie misunderstanding/mishearing speaker message) though cognitive communicative function grossly intact besides those minor occurrences. Speech-Language Function: Auditory Comprehension: Picture Identification: BDAE Short form: 16 Commands: BDAE Standard form: 15/15 Yes/No Response: Paired, personal y/n: 4/4; attempted complex ideational material but pt not following (? Hearing ?fatigue ?) Sue-Motor Evaluation/Motor Speech: Speech intelligibility is reduced beyond the word level, especially as pt is notably fatigued Articulation: Patient presents with articulation characterized by reduced precision and inconsistent articulatory errors ? Verbal apraxic component given inconsistency of errors, groping at times Verbal Expression: Automatic Sequences: Countin-10 successful but could not continue sequence from 10-21; Days of the week: unable to recite sequence independently or with clinician Repetition: Patient experienced breakdown at the sentence level, successful in repeating individualwords during naming tasks Responsive Naming:, Confrontation Naming: The [place] Naming Test (BNT) Short Form was administered: Patient obtained a score of 10/15 at the spontaneous level, 10/15 with semantic cues, and 10/15 with phonemic cues. Withmultiple choice options, pt scoring 15/15 Generative Naming: Pt able to name two items in given categories (animals and vegetables) Conversational Level: Patient presents with nonfluent expression characterized by anomia and phonemic paraphasias compounded by dysarthria and ? verbal apraxia Reading Comprehension: pt demonstrating word level reading; able to match 4/4 pictures to words (f of 4) Written Expression: Did not assess Augmentative/Alternative Communication: Patient will be appropriate for diagnostic probes with light-tech augmentative/alternative communication strategies. Social-Pragmatic Skills: Eye contact: Patient with good eye contact throughout session. Facial Expression/Affect: Patient demonstrates flat affect. Cognitive-Linguistic: Unable to formally evaluate secondary to presence of language impairment. Orientation: With yes/no questions, pt demonstrating awareness of location and dx PATIENT/FAMILY EDUCATION: Patient/Family Education: Topic: Patient/Family education and training was completed today including the role of Speech-Language Pathology, results of today's exam/recommendations, communication strategies and rehab goals. Learner: patient and , Arlyn Method of Education: Verbal and Demonstration Barriers to Learning/Education: fatigue Patient: was able to verbalize understanding of information and needs further instruction and education Family: was able to verbalize understanding of information Patient/Family Goals: To regain independence with communication. To return home with family. Assessment /CLINICAL IMPRESSIONS: Mr.Speer Faith is a male 66 y.o. with PD admitted with LMCA occlusion s/p thrombectomy. The patient presents with functioning consistent with: at least mild receptive and moderate expressive aphasia compounded by at least moderate motor speech impairments. Speech is dysarthric and non-fluent with evidence of anomia and phonemic paraphasias and/or apraxic component. Intelligibility is reduced, especially beyond the word level. Repetition at the word level is intact. Confrontation, generative, and responsive naming are impaired. Pt's strength in receptive language is noted, including following commands, answering yes/no questions, and reading at the word level. He would be a good candidate for light-tech AAC trials given receptive strengths. Patient currently needs assistance communicating basic wants and needs and directing his medical care. Given patient's age, independence prior toadmission, and social/occupational demands, he would benefit from intensive PLANT ANATOMIST intervention. Based on the patient's premorbid level of functioning, medical diagnosis, comorbidities and patient/family support, the patient's prognosis is considered: Excellent. Pt's swallow function was assessed during his acute care level of stay with swallowing determined poonam at or near baseline level. PLANT ANATOMIST note from 02/09: currently presents with a mild oral phase [...] will continue to tolerate a modified diet duringhospitalization, which is consistent with his baseline. Anticipate no further PLANT ANATOMIST services for dysphagia at this time. Defer evaluation at this time, but PLANT ANATOMIST will monitor and will be available as needed. Functional Communication Measures ([place] [employer], 2002). The Functional Communication Measures (FCM???s) are a series of 7 point rating scales, ranging from least functional (Level 1) to most functional (Level 7). They have been developed by SUZANNA to describedifferent aspects of patient???s functional communication and swallowing abilities over the course of PLANT ANATOMIST intervention. Spoken Language Comprehension Level 6: Individual is able to understand communication in most activities, but some limitations in comprehension are still apparent in vocational, avocational, and socialactivities. The individual rarely requires minimal cueing to understand complex sentences. The individual usually uses compensatory strategies when encountering difficulty. Spoken Language Expression Level 4: The individual is successfully able to initiate communication using spoken language in simple, structured conversations in routine daily activities with familiar communication partners. The individual usually requires moderate cueing, but is able to demonstrate use of simple sentences (i.e., semantics, syntax, and morphology) and rarely uses complex sentences/messages. GOALS: Longterm Goals: Projected Functional Communication Measures at discharge: Spoken Language Expression Level 6: The individual is successfully able to communicate in most activities, but some limitations in spoken language are still apparent in vocational, avocational, and social activities. The individual rarely requires minimal cueing to frame complex sentences. The individual usually self-cues when encountering difficulty. Short Term Goals: Evaluation: Goal #1: The patient will complete the PLANT ANATOMIST evaluation in the areas of: motor speech, reading comprehension, written expression, light-tech AAC options Verbal Expression: Goal #1: The patient will generate automatic sequences (counting, days of the week) with 90% accuracy. Goal #2: The patient will demonstrate naming of objects to confrontation with 90% accuracy. Goal #3: Given a specific category, the patient will accurately name 2 items within it with 90% accuracy. Goal #4: The patient will provide a single word to complete a phrase with 90% accuracy. Plan /RECOMMENDATIONS: Recommend PLANT ANATOMIST frequency of 60 minutes 5x/week DYSPHAGIA: Continue dysphagia 3, thin liquids - this is at or very near baseline diet per Deferred swallow evaluation given reported baseline abilities; however, PLANT ANATOMIST is available to re-evaluate as needed Continue general aspiration precautions (HOB elevated, slow rate, small/single bites/sips, alternateliquids/solids) Healthcare Communication Access Recommendations Patient has mild Comprehension and moderate Expression impairments; pt is hard of hearing at baseline Please support access to communication and healthcare information by doing the following: Plan in extra time when preparing to speak to Marcell Supported Comprehension: ??? Supplement communication with gestures, writing, pictures ??? Be prepared to repeat and rephrase, especially as pt is hard of hearing. Supported Expression: ?? Verbalize two choices or ask yes/no questions. ?? Ask closed ended questions. Deja Vasquez MS CCC-PLANT ANATOMIST 02/10/2022 15:55 Jessie Hoover, PT - 02/10/2022 1153 EDT [facility] Rehabilitation Therapy Inpatient Rehabilitation [facility] Physical Therapy Initial Evaluation Note Date of Service: 02/10/2022 Reason for Referral: Evaluate and treat consistent with acute rehabilitation admission Mobility Precautions Activity: Activity as tolerated, Level of risk of Harm A SUBJECTIVE: can we walk some more? OBJECTIVE: Patient Profile: Patient is a 66 y.o. male admitted on 02/10/2022 secondary to History of recent stroke The patient lives at [address] [place] [address] [place] [address] History of present illness per Dr. Llamas's H&P dated 02/10/22: 66 y.o. male with history of Parkinson's disease status post deep brain stimulator placement, polyneuropathy, right foot drop, atrial fibrillation not anticoagulated, type 2 diabetes, hyperlipidemia presented 02/04/2022 with left MCA occlusion transferred to [facility] from [facility] following CTA outside therapeutic window for tPA. NIH 11 on arrival. Underwent mechanical thrombectomy revealing occlusion of left anterior M2 branch, complete perfusion achieved after first pass. TTE w/ preserved EF (55-60%) and possible hypokinesis of mid-apical inferoseptal wall, but no notable thrombus or valvular vegetations. Severely dilated LA. Suspected cardioembolic etiology of stroke given A. fib not on anticoagulation. Plan is to follow-upwith neurology and cardiology. Previously not on anticoagulation due to fall risk. ?? Currently he is requiring assistance with functional mobility and basic self care. Patient was evaluated and found appropriate for acute inpatient rehabilitation program. ?? This patient's current status is similar to the pre-admission screening and is appropriate for inpatient rehabilitation admission. ?? Previously requiring assist for mobility and self care due to Parkinson's disease. Was ambulating with walker and AFO. Support Support Person: Spouse Amount of Support: 24 hour assist Support Comment: brother lives next door, son lives ~hour away Home Environment: Safety Assessment / Living Environment Home environment: House Home layout: One level Access/Entrance: Ramped entrance Home Equipment: see above re bed set up, has rollator u walker, transport chair, R AFO Prior Level of Function: Prior Level of Function Comment: using walker throughout home except in areas where there are railings (bathroom). Pt's report's Parkinsons is under control was having more issues with balance from neuropathy-using brace for RLE as his leg turns in. Quite mobile with walker/brace before. 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 Ended in June. Medical/Surgical History: CURRENT: The patient has Acute CVA (cerebrovascular accident) ([facility]) ([facility]); Stroke ([facility]) ([facility]); Arterial ischemic stroke, MCA (middle cerebral artery), left, acute ([facility]) ([facility]); Aphasia; Dysarthria; and History of recent stroke on their problem list. PAST: The patient has no past medical history on file. Medications Current Medications: Current medications reviewed Relevant Objective Findings: Arousal, Attention, and Cognition: Arousal/Alertness: Alert Orientation Level: Oriented X 4 Following Commands: Follows one step commands Following Commands Comments: consistently following 1 step commands in functional context. Some breakdown of command following with novel instructions (finger to nose testing etc) Voice and Speech Functions: Patient presents with receptive aphasia, Patient presents with expressive aphasia Voice and Speech Comments: see PLANT ANATOMIST notes for details expressive>receptive, dysarthric Cardiopulmonary: Vital Signs: Activity Blood Pressure (mmHg) Heart rate (bpm) Respiratory rate (breaths/min) Oxygen Sat/ Fractions of inspired Oxygen SPO2/FIO2 % Pre 127/78 60 97 During Post 137/67 72 Integumentary/Anthropometric: Skin General Assessment Skin and Related Structure Functions: No problems noted Sitting Posture General Assessment: No problem noted Range of Motion and Joint Integrity: General Assessment Range of Motion Additional Comments: R DF to neutral, R foot rests in inverted position Muscle Performance: Strength Additional Comments: grossly 5/5 through BLEs, NOTE-R ankle not evaluated: to evaluate nextsession. BUEs grossly at least 4/5 throughout see OT notes for details Sensation, Reflexes, and Nerve Integrity: Sensory Function Additional Comments: attempted sensory evaluation of LEs but results inconsistent ?command following/communication barrier with aphasia. Pt's reports pt has peripheral neuropathy,was perscribed an AFO for his RLE as this has gotten very severe resulting in his RLE inverting all the time and unsafe to ambulate without Neuromotor Function/Development: Bradykinesia (Velocity of Movement) Right Upper Extremity Task: donning shirt Left Upper Extremity Task: donning shirt Tremor Right Upper Extremity Tremor: Action-Kinetic Balance, Mobility, and Gait: Balance: Static Sitting Balance Static Sitting Balance: Fair (moderate risk for falls, difficulty with self-correction) Level of Assistance: Supervision Additional Comments: sits with posterior lean, can make self corrections but does not correct to full upright Dynamic Sitting Balance Dynamic Sitting Balance: Poor (high risk for falls, unable to self-correct instability Additional Comments: LOB to R/posterior with attempt to don shirt, cues/min assist to correct. Can correct with cues Static Standing Balance Static Standing Balance: Poor (patient required handhold and moderate to maximal assistance to maintain posture) Patient able to stand upright independently for: 18 seconds with min contact x 2, LOB occurs posteriorly, no reactive stepping/righting reaction noted. Wilson Balance Score (n/56): 4 Wilson Balance Score (n/56): 4 Bed mobility: Sit->supine: with mod assist of 1 with flat bed and rails. Supine->sit: with min contact assist of 1 with head of the bed up and rails. Transfers: Bed < > Chair: stand-step with mod assist of 2 Wheelchair: NA pt is ambulatory Gait: The patient ambulates with min-mod assist of 2 using rolling walker and or hand hold bilaterally , RAFO for 150 feet. Gait deviations: short step length, decreased foot clearance, NBOS, post trunk lean Stairs: Not evaluated Wilson Balance Score (n/56): 4 Gait Speed - Distance (m): 10 (with RW) Gait Speed - Time (sec): 28.62 Gait Speed - Velocity (meters/sec): 0.35 meters/sec Self-Care, Home Management, Work, Leisure: See OT notes for details Informed Consent: Informed Consent: The patient consented to the Physical Therapy evaluation. The patient agrees to and understands the Physical Therapy treatment plan and goals. Interventions Completed Today: Start Time: 1230 Individual Therapy (minutes): 30 Minutes Co-Treat (minutes): 30 Total Minutes Treatment 1: 60 Present for the Therapy Session Comments: session performed as co-treat due to pt complexity and energy conservation Additional information may be available in the medical record. Intervention included: Neuromuscular re-education: The Wilson Balance Scale (BBS)^ is a 14-item objective measure designed to screen balance in adult populations. Balance is one domain of fall risk. As the score decreases, the patient may exhibit more balance deficits putting them at increased risk for falling. (Tonie, 2008, Erwin, 2004, Jennifer, 2016) 1. Sitting to standing 1 2. Standing unsupported 0 3. Sitting unsupported feet on floor 3 4. Standing to sitting 0 5. Transfers 0 6. Standing unsupported with eyes closed 0 7. Standing unsupported with feet together 0 8. Reaching forward with outstretched arm 0 9. ground support agent object from floor 0 10.Turn look behind over left/right shoulder 0 11.Turn 360 degrees 0 12.Stool touch 0 13.Standing unsupported one foot in front 0 14.Standing on one leg 0 Total 4/56 Age/gender normative values for community dwelling elders (Slava, 2002) Age Gender 95% CI 60-69 Male 55-56 60-69 Female 54-56 70-79 Male 52-56 70-79 Female 52-55 80-89 Male 51-54 80-89 Female 49-52 The minimal detectable change (MDC-95%) for patients with acute stroke is 7. (Dheerajensen, 2001) The minimal detectable change (MDC-95%) for patients with chronic stroke is 5. (Lisa, 2012) Gait Training: Pt ambulated with assist of 2 progressing from RW to B hand hold assist. Decreasing from Mod-min support with increased practice. X 50 ft, x 150 ft with cues for long steps. Therapeutic activity: Sit<>Stands with cues for fwd trunk lean, lean fwd until you see the heels of your feet, cues for staying forward through transition progressing from mod-min A x 1-2 Patient/Family Education: Topic: Plan of care, midline awareness/balance deficit Learner: patient and family Method: verbal Barriers to Learning: aphasia Outcome: verbalized understanding Team Communication: Mobility status updated on whiteboard ASSESSMENT: The patient presents with a physical therapy diagnosis of: Impaired mobility which is consistent with the medical diagnosis of: L MCA CVA with h/o parkinsons and peripheral neuropathy Physical therapy examination reveals the following impairments: endurance, motor control, sensation,balance Physical therapy examination reveals the following impairments: aphasia expressive>receptive These impairments contribute to the following activity limitations: gait, functional mobility/transfers and participation restrictions of: community integration, home management, family relations, recreation and leisure, play/running, participate with peers, social life The patient's prior level of function was: min assist for transfers, supervision with rollator walker/brace for mobility in the home and outdoors Current status is: below prior level of function The patient's rehabilitation potential is: good The patient is expected to achieve the following outcomes: supervision for ambulation with previous assistive device, min assist for transfers, modified independence for bed mobility Progress may be improved by the following patient strengths: home environment, safety awareness, support system, participation level, motivation The patient: has a 77% probability of return to walking with contact guard or less based on paretic limb strength and initial WILSON balance test with participation in high intensity gait training. Of note this clinical prediction rule does not factor in pt's h/o Parkinsons's which may impact progress. Physical Therapy will focus on: remediation Short-Term Goals: Time Frame: NA due to length of stay Long-Term Goals: Time Frame: 7-10 days Goal: pt will be able to perform bed mobility with modified independence Goal: pt will be able to perform stand step transfers with min assist of one Goal: pt will be able to ambulate with supervision and pt's own RW Goal: pt will be able to ambulate outdoors with walker x 10 minutes continously with min assist of 1 Goal: pt will improve WILSON balance score by 14+ points Goal: pt will be able to perform car transfer with min asisst of 1 PLAN: Physical therapy will be provided by the physical therapist and/or physical therapist general office assistant whenmedically appropriate Training: Neuromuscular re-education, Gait training Active Engagement: Therapeutic activities, Therapeutic exercise Frequency: Daily Frequency Comments: 5-6x/week Intensity: 60-90 minutes Duration: Duration of rehabilitation admission Recommended Discharge Destination: Home with family support/supervision Equipment Recommended: Patient has all necessary equipment Jessie Park PT 02/10/2022 15:23 Prakash Navarrete RN - 02/10/2022 1119 EDT Images from the original note were not included. FOUR EYES SKIN ASSESSMENT Four Eyes skin assessment was performed on admission to the unit by Prakash Grossman RN and Azul Jones. Areas of concern: [] Occiput [x] Nose; reddened, blanchable [] Ear [] Lip [] Scapula [] Spinous process [] Shoulder [] Elbow [] Iliac crest [] Sacrum/coccyx [] Ischial tuberosity [] Trochanter [x] Knee; R Knee diabetic ulcer d/t abrasion; 4*4 mepilex [] Malleolus [] Heel [] Toe [x] Other: LLE abrasions along srinivasan; CDI, scabbed. Patient has the following devices at the time of this assessment: AFO/Brace RLE at bedside. Device related pressure injury present? No 02/10/2022 11:19 documented in this encounter H&P Notes Tequila Llamas MD - 02/10/2022 1120 EDT Acute Rehab Admission History and Physical Admit Date: 02/10/2022 Date of Service: 02/10/2022 PCP: Griselda Stanley Chief Complaint: CVA HPI As obtained from full chart review: 66 y.o. male with history of Parkinson's disease status post deep brain stimulator placement, polyneuropathy, right foot drop, atrial fibrillation not anticoagulated, type 2 diabetes, hyperlipidemia presented 02/04/2022 with left MCA occlusion transferred to [facility] from [facility] following CTA outside th erapeutic window for tPA. NIH 11 on arrival. Underwent mechanical thrombectomy revealing occlusion of left anterior M2 branch, complete perfusion achieved after first pass. TTE w/ preserved EF (55-60%) and possible hypokinesis of mid-apical inferoseptal wall, but no notable thrombus or valvular vegetations. Severely dilated LA. Suspected cardioembolic etiology of stroke given A. fib not on anticoagulation. Plan is to follow-upwith neurology and cardiology. Previously not on anticoagulation due to fall risk. Currently he is requiring assistance with functional mobility and basic self care. Patient was evaluated and found appropriate for acute inpatient rehabilitation program. This patient's current status is similar to the pre-admission screening and is appropriate for inpatient rehabilitation admission. Previously requiring assist for mobility and self care due to Parkinson's disease. Was ambulating with walker and AFO. PMH PSH History reviewed. No pertinent past medical history. History reviewed. No pertinent surgical history. Social History Family History Social History Tobacco Use ??? Smoking status: Unknown If Ever Smoked ??? Smokeless tobacco: Never Used Substance Use Topics ??? Alcohol use: Not on file History reviewed. No pertinent family history. Medications Medications Prior to Admission Medication Sig Dispense Refill Last Dose ??? aspirin chewable 81 mg tablet Take 1 Tablet by mouth daily. ??? atorvastatin (LIPITOR) 10 mg tablet Take 4 Tablets by mouth daily. 60 Tablet 2 ??? carbidopa-levodopa (SINEMET) 25-250 mg per tablet Take 1 Tablet by mouth 4 times daily. ??? DULoxetine (CYMBALTA) 30 mg delayed release capsule Take 60 mg by mouth daily. ??? entacapone (COMTAN) 200 mg tablet Take 200 mg by mouth 3 times daily. ??? gabapentin (NEURONTIN) 100 mg capsule Take 100 mg by mouth 2 times daily. ??? glipiZIDE (GLUCOTROL) 5 mg tablet Take 5 mg by mouth 2 times daily. ??? insulin aspart U-100 (NOVOLOG FLEXPEN) 100 unit/mL (3 mL) injectable pen Sliding scale as above ??? metoprolol TARtrate (LOPRESSOR) 50 mg tablet Take 50 mg by mouth 2 times daily. Allergies No Known Allergies Review of Systems: A review of systems was limited by aphasia. He does report Neurological: positive for speech problems. Does not respond when asked about other issues pertaining to stroke. Denies pain, respiratory, or GI complaint Objective/Physical Exam: VS: Patient Vitals for the past 8 hrs: BP Pulse Resp Temp SpO2 02/10/22 1022 118/66 60 18 35.8 ??C (96.4 ??F) 96 % Last 24 hours: Temp: [35.3 ??C (95.5 ??F)-36.4 ??C (97.5 ??F)] , Pulse: [60-65] , Resp: [11-20] , BP: (111-150)/(62-103) , SpO2: [96 %-99 %] Pain: Patient Vitals for the past 8 hrs: Numeric Pain Level (Scale 1-10) 02/10/22 1006 0 Weight: Weight : 96.1 kg (211 lb 12.8 oz) BMI: Body mass index is 28.72 kg/m??. Exam: Gen: Alert, pleasant, no distress HEENT: Head NC/AT, EOMI, MMM Skin: no rashes Cardiac: Irregularly irregular Pulmonary: clear to auscultation bilaterally Abdomen: normal bowel sounds, soft, nontender Musculoskeletal: no joint tenderness, deformity or swelling Neuro: Alert, aphasia and mild dysarthria. Responses delayed, slowed processing Is able to state date February 10, not year. Able to state reason for hospitalization brain, unable to state location. He is able to tell me his home town and that he has lived there for 30 years. Affect: flat in affect Language: Speech aphasic, intact simple naming and repetition. Follows simple motor commands. Cranial nerves: CN III-IV, : EOMI, No nystagmus. No ptosis or anisocoria is noted. CN V: Normal masseter bulk, tone. V1-V3 intact to LT. CN VII: Face symmetric without weakness. CN VIII: Hearing grossly intact. CN IX-X: Mild dysarthria. Normal palatal and uvular elevation. Motor: Tone is increased bilateral upper extremities with rigidity left greater than right, cogwheeling both upper extremities, resting tremor right upper extremity. Strength 5/5 bilateral upper extremities and bilateral lower extremities except for right ankle dorsiflexion and eversion weakness. Sensation: Intact to light touch Data Review: Labs: I have personally reviewed CBC: Lab Results Component Value Date WBC 7.13 02/09/2022 RBC 4.27 (L) 02/09/2022 HGB 12.6 (L) 02/09/2022 HCT 36.1 (L) 02/09/2022 MCV 85 02/09/2022 MCH 29.5 02/09/2022 MCHC 34.9 02/09/2022 PLT 156 02/09/2022 NEUTROABS 5.38 02/04/2022 BMP: Lab Results Component Value Date NA 140 02/09/2022 K 3.9 02/09/2022 CL 108 02/09/2022 CO2 24 02/09/2022 BUN 12 02/04/2022 CREATININE 0.75 02/09/2022 CALCIUM 8.3 (L) 02/05/2022 MG 1.5 (L) 02/05/2022 PHOS 3.6 02/05/2022 Coagulation: Lab Results Component Value Date PROTIME 12.6 02/04/2022 PTT 32 02/04/2022 Other Studies: CT Head wo Contrast??02/04/22 IMPRESSION 1. 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 2. ??Bithalamic frontal approach electrodes. ?? CT Head wo Contrast 02/05/22 IMPRESSION Redemonstrated evolving left MCA territory infarcts without associated hemorrhage. Assessment/Problems: Patient Active Problem List Diagnosis Date Noted ??? Acute CVA (cerebrovascular accident) ([facility] ([facility]) 02/04/2022 Priority: Medium ??? Stroke ([facility] ([facility]) 02/04/2022 Priority: Medium ??? Arterial ischemic stroke, MCA (middle cerebral artery), left, acute ([facility] ([facility]) 02/04/2022 Priority: Medium ??? Aphasia 02/04/2022 Priority: Medium ??? Dysarthria 02/04/2022 Priority: Medium Impairment group: Stroke: Right body involvement (left brain) This patient's current status is similar to the pre-admission screening and is appropriate for inpatient rehabilitation admission. Patient has had a significant decline in function as the result of CVA. he has impaired cognition, communication, self care, balance, and functional mobility. An acute inpatient rehab setting is medically necessary for physician monitoring of neuro status, 24 hour nursingcare, and acute level therapies including PT, OT, PLANT ANATOMIST for 3 hours per day, 5 days per week. Patient has excellent rehab potential and is expected to be independent to assist with functional mobility and self-care at discharge. Patient's preadmission medications have been fully reviewed and reconciled. Medication adjustments have been made according to present needs at time of admission. There are no clinically significant medication changes or complications that need to be addressed at this time. Plan: Left MCA stroke 02/04/2022, status post mechanical thrombectomy: Residual aphasia full PT, OT, PLANT ANATOMIST assessments and therapies to address mobility, self care, cognition, communication, swallow. 24 hour rehab nursing for self care deficits Continue aspirin and statin. Atorvastatin has been increased to 40 mg daily (prior dose 10 mg) Dysphagia 3 diet. Advance per PLANT ANATOMIST Chronic atrial fibrillation Continue home metoprolol 50 mg twice daily He remains off anticoagulation due to recent stroke, could consider initiation at 10 to 14 days poststroke however he was previously not on anticoagulation due to high fall risk. Parkinson's disease s/p DBS He did require assistance at home previously due to Parkinson's. Continue home carbidopa levodopa 25??? 250 mg 4 times daily and entacapone 200 mg 3 times daily Diabetes: A1C 6.8 on 02/05 Currently sliding scale aspart Monitor FSBG Continue gabapentin for diabetic polyneuropathy Right foot drop appears to be longstanding. Reports uses bracing at baseline. DVT Prophylaxis: Pharmacologic Prophylaxis: Heparin 5000 units SQ Bid Discharge Plan: Home with home health ELOS: 2 weeks Tequila Llamas MD 02/10/2022 11:20 documented in this encounter Consult Notes Ladan Álvarez MD - 02/13/2022 1424 EDT Images from the original note were not included. MEDICINE CONSULT Requested by: Dr. Townsend Reason: Left MCA ischemic stroke; Parkinson's Disease with deep brain stimulator in place; atrial fibrillation not previously anticoagulated due to falls risk; diabetes mellitus type 2 Date of admission to hospital: 02/04/2022 Date of admission to [facility] Rehabilitation: 02/10/2022 HPI: Patient was admitted with a left MCA ischemic stroke. Unable to get a clear history due to expressive aphasia, though that appears to be improving some. On chart review, it sounds like he was found with right-sided weakness and aphasia at home. He was transferred to [facility] where CT angiography showed a left MCA occlusion. Because they do not have neuro interventional radiology, he was transferred to [facility] for co nsideration on 02/04/2022. On arrival, he was found to be globally aphasic, severely dysarthric with left gaze preference. He went to neuro interventional radiology suite where satisfactory flow was achieved following first pass. Initially, an NG tube was placed for administration of his Parkinson's medications, however that hasbeen removed and he is able to take things by mouth at this time. Etiology of his stroke is thought related to atrial fibrillation not previously anticoagulation due to falls risk. Echocardiogram on 02/05/2022 showed generally preserved left ventricular function with an EF estimated at 55-60% with possible hypokinesis of the mid apical inferoseptal wall. He is currently on aspirin + high intensity statin with consideration for anticoagulation about 14 days poststroke. He tells me that he took pills for his diabetes at home but is not sure what medication. When I mentioned metformin, he thought maybe that was it. His hemoglobin A1c was 6.8% on arrival. Be transferred to acute inpatient rehab for ongoing functional therapies on 02/10/2022. He did go to [facility] ER yesterday for repeat neurologic evaluation when he was found moreaphasic and had a headache upon awakening from a nap. His blood sugar was also lower at 67. In the ER, labs were all stable with a negative troponin and stable CT head. He returned to inpatient rehab later in the evening. REVIEW OF SYSTEMS AT PRESENT: A ten point review of systems was performed. Pertinent positives are listed below, all others are negative: Aphasia Slowed processing PMH: History reviewed. No pertinent past medical history. MEDS: List reviewed. Current Facility-Administered Medications Medication Route Frequency ??? acetaminophen (TYLENOL) tablet 650 mg oral Q4H PRN ??? aspirin chewable tablet 81 mg [...] Tablet oral 4 times per day ??? DULoxetine (CYMBALTA) delayed release capsule 60 mg oral DAILY ??? entacapone (COMTAN) tablet 200 mg oral 3 times per day ??? gabapentin (NEURONTIN) capsule 100 mg oral BID ??? glucagon injection 1 mg intramuscular PRN ??? heparin injection 5,000 Units subcutaneous Q12H ??? insulin aspart U-100 (NOVOLOG FLEXPEN) injection subcutaneous TID WC ??? metoprolol TARtrate (LOPRESSOR) tablet 50 mg oral BID ??? polyethylene glycol 3350 (MIRALAX) packet 17 g oral BID ??? senna (SENOKOT) tablet 2 Tablet oral QHS ALL: No Known Allergies SOCIAL: Social History Tobacco Use ??? Smoking status: Unknown If Ever Smoked ??? Smokeless tobacco: Never Used Substance Use Topics ??? Alcohol use: Not on file Tells me he lives in [place] with his , Arlyn FAMILY: History reviewed. No pertinent family history. EXAM: BP 141/87 (BP Cuff Location: Right arm, BP Patient Position: Semi fowlers) Pulse 55 Temp 36.6 ??C (97.9 ??F) (Tympanic) Resp 14 Ht 182.9 cm (72.01) Wt 96.1 kg (211 lb 12.8 oz) SpO2 95% BMI 28.72 kg/m?? Gen: Alert, pleasant, slowed processing On room air HEENT: Head: Normal, normocephalic, atraumatic. Skin: No obvious rash Cardiac: Regular Pulmonary: Clear Abdomen: Soft, nontender No bowen Musculoskeletal: no joint tenderness, deformity or swelling Neuro: Slowed processing Expressive aphasia Affect: Flat Language: Speech slow with mild dysarthria No ptosis or anisocoria is noted. Face symmetric without weakness. Hearing grossly intact. Motor: Strength generally symmetric DATA: Labs: I have personally reviewed CBC: Lab Results Component Value Date WBC 7.80 02/12/2022 RBC 4.50 02/12/2022 HGB 13.0 (L) 02/12/2022 HCT 38.5 (L) 02/12/2022 MCV 86 02/12/2022 MCH 28.9 02/12/2022 MCHC 33.8 02/12/2022 PLT 198 02/12/2022 NEUTROABS 4.78 02/12/2022 BMP: Lab Results Component Value Date NA 140 02/12/2022 K 4.1 02/12/2022 CL 103 02/12/2022 CO2 29 02/12/2022 BUN 18 02/12/2022 CREATININE 0.95 02/12/2022 CALCIUM 9.1 02/12/2022 MG 1.5 (L) 02/05/2022 PHOS 3.6 02/05/[address] head Echo 02/05/2022: IMPRESSION + SUGGESTIONS: 1. Left MCA ischemic stroke status post thrombectomy with satisfactory flow on 02/05/2022 Aspirin + high intensity statin PT/OT/PLANT ANATOMIST Strict falls precautions, delirium prevention measures, aspiration precautions He is requiring supervision with meals right now 2. Diabetes mellitus type 2. Modified aspart SSI for now and will contact PCP to see what he was taking before 3. Atrial fibrillation not previously anticoagulated Consider anticoagulation about 14 days after initial stroke. Parkinson's and increased falls risk may prevent Continue metoprolol 50 twice daily 4. Parkinson's disease Has been continued on his home Parkinson's meds which include: Sinemet 25???250: 1 tablet 4 times daily Entacapone 200 mg 3 times daily Not sure why he is on Cymbalta + gabapentin? DVT prophylaxis: He is on heparin 5000 twice daily Ladan Álvarez MD 02/13/2022 14:24 documented in this encounter Miscellaneous Notes Plan of Care - Courtney Marsh RN - 02/22/2022 1050 EDT Problem: High Fall Risk: Goal: Patient will Remain Free of Falls due to Med. Side Effects Outcome: Met This Shift Problem: High Fall Risk: Goal: Patient Will Remain Free from Fall-Related Injury Outcome: Met This Shift Problem: Daily Care Plan Goals Goal: Care Plan Documentation Outcome: Completed Flowsheets (Taken 02/22/2022 0826) Goal This Shift: Pt will discharge this shift Data: Pt noted with d/c orders for today. Ana Lilia arrived at ~0830 to assist with preparations. Action: Pt assessed, provided with medications, and assisted with ADLs. Pt and educated re med administration. Reviewed AVS with pt and , and questions addressed. Notified [facility] of pt's departure and VM left with Maria E. Response: Pt signed AVS form. Pt left building via with all belongings accompanied by to waiting vehicle at 1030. Pt will be receiving OT, PT, PLANT ANATOMIST, and SYSTEMS SOFTWARE DESIGNER through [facility]. COURTNEY MARSH RN 02/22/2022 10:53 lan of Care - Griselda Velez, JANNETTE - 02/22/2022 0219 EDT Problem: Daily Care Plan Goals Goal: Care Plan Documentation Outcome: Ongoing Flowsheets (Taken 02/22/2022 0200) Area of Focus: Sleep Goal This Shift: adequate sleep and rest Patient alert and oriented x3. Patient asleep now. Turn every 2 hours. Monitor pain, sleep, and rest. Call white within reach. Will continue to monitor and do hourly checks. Plan of Care - Maida Mcallister - 02/21/20228 EDT Problem: Daily Care Plan Goals Goal: Care Plan Documentation 02/21/20222149 by Maida Mcallister Flowsheets Taken 02/21/2022 1746 Area of Focus: Mobility Taken 02/21/2022 1550 Goal This Shift: educate the patient about safety at home I spoke with patient at length about his discharge home and he was very excited about being with hisfamily. We spoke about being safe with his mobility, allowing himself time to rest after walking or doing his PT exercises. He's eager to be compliant with mobility and safety. lan of Care - Terri Wallace RN - 02/21/2022 1428 EDT Problem: Daily Care Plan Goals Goal: Care Plan Documentation Flowsheets (Taken 02/21/2022 0923) Area of Focus: Safety Goal This Shift: pt will remain free of falls and injuries Note: Pt here post MCA. Hx of Parkinson's. Pt is a one person assist for transfers, however this morning he was very tired, stiff, and having muscle cramps on both legs. Needed mod-max 2xA for part of the morninh Consulted with providers who said he did work very hard in PT yesterday with stairs. Pt remains tired and asking to go to bed and sleeping between therapies but free of falls and injuries this shift. Problem: Urinary Elimination: Goal: Ability to recognize the need to void and respond appropriately will improve Outcome: Ongoing Note: Pt once continent and once incontinent during shift. Prompting q2h. Problem: Cognitive/ Neuro: Goal: Will regain or maintain usual level of consciousness Outcome: Ongoing Problem: SKIN INTEGRITY Goal: Skin integrity will improve or be maintained Outcome: Met This Shift Problem: High Fall Risk: Goal: Patient Will Remain Free from Fall-Related Injury Outcome: Met This Shift lan of Jr Lira - 02/21/2022 1155 EDT 02/21/22 1155 Medicare IM Notice IM notice status Patient received notification verbally and in writing while in hospital. IM notice given on admission? Yes IM notice given at discharge? Yes lan of Jessica Santamaria RN - 02/21/2022 0506 EDT Problem: Daily Care Plan Goals Goal: Care Plan Documentation Outcome: Ongoing Problem: High Fall Risk: Goal: Patient will Remain Free of Falls due to Med. Side Effects Outcome: Ongoing Problem: High Fall Risk: Goal: Patient will Remain Free of Falls due to Altered Mobility Outcome: Ongoing Assumed care of pt at 2300. Provided assessment and meds for pain. Pt able to turn self, no other needs expressed this shift. JESSICA ARZOLA RN 02/21/2022 5:06 lan of Ambreen Pierre RN - 02/20/2022 2157 EDT Problem: Daily Care Plan Goals Goal: Care Plan Documentation Outcome: Met This Shift Flowsheets (Taken 02/20/2022 2700) Area of Focus: Mobility Goal This Shift: Pt will ambulate safely to and from the BR. Pt ambulated up and down the hallway with one assist and a gait belt. Pt rang for assist as needed. lan of Care - Renny Roland - 02/20/2022 1602 EDT 02/20/22 1601 Home Health Referral Information Referral Status Called [place] - [facility] , Home Health Choice Form Signed? Yes Remind provider to place Home Health Consult order? Yes ([facility] for PT/OT/SYSTEMS SOFTWARE DESIGNER) HH has been called. Renny Roland MSW Plan of Care - Courtney Marsh RN - 02/20/2022 1257 EDT Problem: Daily Care Plan Goals Goal: Care Plan Documentation Outcome: Met This Shift Flowsheets (Taken 02/20/2022 0905) Goal This Shift: review and communicate d/c plan Pt's case scheduled to be reviewed today during team rounds, where it was confirmed that pt will d/c7/14 with home health services, including OT, PT, PLANT ANATOMIST, and SYSTEMS SOFTWARE DESIGNER. Pt and his updated on plan. Gwen provided with [place] cath supplies for home, to get by until she can obtain an order from PCP and tack picker supplies of her own. Pt's educated on how to apply/remove/safely maintain [place] cath. Problem: High Fall Risk: Goal: Patient will Remain Free of Falls due to Med. Side Effects Outcome: Met This Shift Problem: High Fall Risk: Goal: Patient Will Remain Free from Fall-Related Injury Outcome: Met This Shift atient Care Conference - Tequila Llamas MD - 02/20/2022 1010 EDT Inpatient Acute Rehabilitation Unit - Interdisciplinary Team Conference Note Timbo Su 66 y.o. male Team Conference Date/Time: 02/20/2022 @1205 Admit Date/Time: 02/10/2022 9:48 Primary Rehab diagnosis: Parkinsonism and Stroke Comorbid Conditions: Patient Active Problem List Diagnosis ??? Acute CVA (cerebrovascular accident) (HCC-CMS) ([facility]) ??? Stroke (HCC-CMS) ([facility]) ??? Arterial ischemic stroke, MCA (middle cerebral artery), left, acute (HCC- CMS) ([facility]) ??? Aphasia ??? Dysarthria ??? History of recent stroke Progress towards goals: Nursing: Pain Management: occasional headache pain treated with prn Tylenol; Bladder: [place] cath at night; can be both continent and incontinent; wears brief during day; checked q2h; Bowel: can be bothcontinent and incontinent of bowel; Skin Care: prophylactic mepilex to blanchably red sacrum; foam bandage to R knee abrasion; Positioning: requires repositioning q2h; Medication Management: pills whole, 1 @ time with thins; Respiratory/Airway Management: lungs clear to auscultation bilaterally; Diabetes Management: ac/hs FS; treated with metformin; Nutritional deficits: dys 4 diet with thins, good appetite; Safety: BA on setting #3; Functional mobility: 2A with RW or hand hold, and AFO on RLE, ambul ation limited/slowed d/t Parkinsons; and Mental Status: A&Ox3. OT: Notable gains include less assistance required when dressing, grooming and during functional transfers, strong safety awareness and insight when transferring.Progress limited primarily by limited fine motor dexterity, extra time for processing, sequencing and carrying out gross movements, expressive aphasia and general Parkinson's symptoms. See below for additional barriers PT: Notable gains includeimproving endurance, improving balance and Progress limited primarily byh/oParkinson Disease, aphasia . See below for additional barriers Gait: The patient ambulates with min contact assist of 1-2 with no device or RW for 500+ feet. Gait deviations: flexed posture, reduced axial rotation/arm swing, quick shuffling steps Stairs: Patient negotiates with min contact assist of 1 up and down 18 stairs with 2 rails. Self-Care:Bed Mobility: Sit->supine: with min contact assist of 1 with flat bed and rails. Supine->sit: with min contact assist of 1 with flat bed and rails. Transfers: Bed < > Chair: stand-step with min contact assist of 1 PLANT ANATOMIST: This week, Marcell demonstrated significantly reduced verbal output consisting largely of 1-2 wordutterances during VNeST and SFA trials. Dysarthria significantly worsened, severely affecting speechintelligibility. 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 Pt's strength in receptive language is noted, including following commands, answering yes/no questions, and reading at the word level. Reading appears to be intact at the word-level, though it sharply declines functionality at the sentence-level. ??Patient currently??needs assistance communicating??basic wants and needs and directing??his??medical care. Given patient's age, independence prior to admission, and social/occupational demands, he??would benefit from intensive PLANT ANATOMIST intervention. Medical Complications: headaches, episodic declines in neuro function Level of Risk & Environmental Privilege: A Pre-Hospital Living Setting and Support System: Lives in [place], [place] with spouse in one level house with ramped entrance; 24-hour assist, spouse, and patient's brother lives next door. Barriers to Discharge: Impaired mobility s/p L MCA CVA with h/o parkinsons and peripheral neuropathy- pt has the following activity limitations: gait, functional mobility/transfers and participation restrictions of: community integration, home management, family relations, recreation and leisure, play /running, participate with peers, social life. Functional deficits with self- care and mobility with the following impairments: endurance, motor control, sensation, balance, aphasia expressive > receptive. Efforts to Remove Barriers: Patient is tolerating Acute IP Rehab Program intensity well and making significant functional progress. Full rehab program to increase the patient's level of independence with self-care and functional mobility to decrease the amount of assistance and/or supervision needed at discharge. Additional Team Conference Discussion: Patient is making slow progress towards established Acute IP Rehab goals as anticipated. Current discharge date remains appropriate for safe, successful discharge. Equipment needs are being address and are anticipated to be met by discharge. Patient/family education is in process and team feels patient/family will be ready for discharge as scheduled. PLANT ANATOMIST noted decline this past week- specifically with dysarthria. Planning to work with using tablet from home to assist patient in communicating needs to help with safe DC. Anticipated Actual Discharge Disposition: Discharge Location: Home Caregiver at Discharge: Spouse/significant other/domestic partner Supervision/Assistance at Discharge: 24 hour physical assistance Revised Expected Discharge Date: 02/22/22 Follow-Up Services: Home health with OT, PT, PLANT ANATOMIST and home health aid Anticipated Home Care Needs: None anticipated Reassessment of goals or treatment program: Goals maintained Assessment of need for Acute Rehabilitation level of care: The expected course of treatment continues to require an interdisciplinary approach to maximize interventions and progress towards functional goals established., The patient generally participates actively in therapy at expected intensity levels., Continue therapies by OT, PT and PLANT ANATOMIST and For a total of 3 hours per day, 5 days per week and be expected to make measurable improvement that will be of practical value to improve Timbo Su's functional capacity or adaptation to impairments. Additional interdisciplinary team information: Patient/Caregiver Communication: Patient/family are aware of discharge plan and estimated length of stay Full name and professional designation of each interdisciplinary pilot steam yacht physically in attendance for this team conference. Rehabilitation Physician: Tequila Llamas MD I lead this weekly interdisciplinary team meeting and was responsible for making the final decisions regarding the patient???s treatment in the IRF. I concur with all decisions made by the interdisciplinary team. Scale Agent: Renny Roland MSW Nurse: Courtney Marsh RN OT: Dulce Maria Mobley OT PT: Alize Rodriguez PT PLANT ANATOMIST: Robert Wadsworth -PLANT ANATOMIST Many members of the team attended this Team Conference via secure video conferencing in an effort tofacilitate social distancing as we are currently in the coronavirus pandemic. lan of Matthias - Jocelin Garza RN - 02/20/2022 0056 EDT Problem: Daily Care Plan Goals Goal: Care Plan Documentation Outcome: Met This Shift Flowsheets (Taken 02/19/20222209) Area of Focus: Pain/ Comfort Goal This Shift: patient will be comfortable this shift Patient A&Ox3, hesitant with speech but able to express needs, rings call white appropriately. Patient reporting discomfort in shoulders this shift, tylenol given per mar, patient reported significant relief with q2h turns and repositions, noted to be sleeping on hourly rounds. [facility], putting out CYU. Patient remained safe this shift, will continue hourly rounding. lan of Kasia Anderson LPN - 02/19/2022 1025 EDT Problem: Daily Care Plan Goals Goal: Care Plan Documentation Outcome: Met This Shift Flowsheets (Taken 02/19/2022 0933) Area of Focus: Safety Goal This Shift: Pt will remain safe this shift. Data: Assumed care of Pt @ 0700. S/p left CVA. Aphasia. A&O x 3. FS ACHS. Aspiration precautions. D/C scheduled 02/22/22. Action: Hourly rounding. Call white within reach. Safety measures in place. Meds given per OCT. Dysphagia 4 diet. Response: Pt has remained safe this shift. No unsafe behaviors or c/o pain noted. Will cont to monitor. KASIA HELMS LPN 02/19/2022 10:26 lan of Fidel Draper RN - 02/19/2022 0522 EDT Quiet night. Pt turned q3h. External catheter on until 05. Brief applied. Pt given Tylenol at 01 prophyllatically to prevent JAVED. Pt seemed more comfortable and denies having JAVED tonight. lan of Ambreen Pierre RN - 02/18/2022 1919 EDT Problem: Daily Care Plan Goals Goal: Care Plan Documentation Outcome: Ongoing Flowsheets (Taken 02/18/2022 1601) Area of Focus: Safety Goal This Shift: Pt will remain safe this shift Pt arrived back from the ED about 1400 on the day shift. Pt was A+OX3, no c/o H/A so far this shift.His speech was slow and hesitant. Tylenol given X1 for H/A prevention. Assisted pt with repositioning as needed. Pt ambulated up and down the hallway with one assist and a GB. lan of Fidel Draper RN - 02/18/2022 0748 EDT ADD: PT's contact was called. But no answer. [place] message that pt had been sent to ED. And to please call the floor. Left message on cell phone lan of Fidel Draper RN - 02/18/2022 0524 EDT Quiet night. Pt slept off and on. Difficult to understand what pt is trying to convey. Med with Tylenol for JAVED at 02. Condom cath patent. Bed alarm on. ADD: 0645 Pt seemed to have mental status change. Pt's eyes open but not responding verbally. [id number] 36.3 BS 136 Right pupil sluggish Pt unable to say name or date of . Dr Roldan notified and pt sent to ED. lan of Matthias - Ambreen Irizarry RN - 02/17/2022 1937 EDT Problem: Daily Care Plan Goals Goal: Care Plan Documentation 02/17/20221930 by Ambreen Irizarry RN Outcome: Met This Shift Flowsheets (Taken 02/17/2022 1539) Area of Focus: Safety Pt had no safety issues. Assisted pt with turning and repositioning. Alarm on for monitoring. lan of Gracy Jha RN - 02/17/2022 1406 EDT Problem: Daily Care Plan Goals Goal: Care Plan Documentation Outcome: Ongoing Data: Patient complained of increased headache 5/10 and feeling constipated. Patient has not had a B.M. in 4 days. Action: Patient medicated with Tylenol 650 mg P.O. Miralax one packet given. Patient states headachehas resolved. Patient had 2 large BM's. Response: No further issues noted. Patient resting in bed comfortably. GRACY CASTRO RN 02/17/2022 14:07 lan of Care - Shelbie Nettles RN - 02/17/2022 0745 EDT Problem: Daily Care Plan Goals Goal: Care Plan Documentation Outcome: Met This Shift Flowsheets Taken 02/17/2022 0743 Area of Focus: Sleep Taken 02/17/2022 0614 Goal This Shift: Pt will get adequate sleep tonight Note: Pt is alert and oriented x 3 and no unsafe behavior noted. Bed alarm in place as a precaution.Pt denied any pain and was noted to be asleep on most all hourly rounds. Pt reported feeling unwell this morning, however pt could not state what did not feel good, other than some slight nausea and declined to start eating his breakfast this morning. VSS and FSBG was 127. Day RN notified and will continue to monitor. lan of Care - Ambreen Irizarry RN - 02/16/2022 1914 EDT Problem: Daily Care Plan Goals Goal: Care Plan Documentation Outcome: Met This Shift Flowsheets (Taken 02/16/2022 1606) Area of Focus: Safety Goal This Shift: Pt will remain safe this shift Pt rang for assist as needed. Assisted with standing to void. Help needed with clothing and placement of the urinal. lan of Care - Roxanna Ryder RN - 02/16/2022 1407 EDT Problem: Daily Care Plan Goals Goal: Care Plan Documentation Outcome: Met This Shift Flowsheets (Taken 02/16/2022 0817) Area of Focus: Safety Goal This Shift: Pt will remain safe and free from injury Note: Pt s/p L MCA stroke/ h/o parkinsons Pt upgraded to Dysphagia diet. Pt sat up in chair and participated in therapies today. Denies pain when asked. Pt does not attempt to get up by himself today. Appetite good and no difficulty swallowing noted. Takes pills whole in applesauce. Voiding and continent. Wheelchair into bathroom to transfer to toilet Call light at bedside/continue to keep free from injury Hourly rounding continues lan of Shelbie Regalado RN - 02/16/2022 0643 EDT Problem: Daily Care Plan Goals Goal: Care Plan Documentation Outcome: Ongoing Flowsheets Taken 02/16/2022 0636 by Shelbie Nettles RN Area of Focus: Sleep Taken 02/16/2022223 by Ursula Miller RN Goal This Shift: Pt will remain safe all shift Note: Pt is alert and oriented x 3 and no unsafe behavior noted. Bed alarm in place as a precaution.Pt was able to reposition himself independently in bed. Pt assisted for boost up in bed x 1. Pt has external catheter in place and pt is voiding in adequate amounts. Pt reported trouble falling asleep initially and pt was offered tylenol at this time. Pt agreeable and was noted to be asleep within thehour. Pt reported left shoulder pain during the night, however was unable to get any PRN pain medication yet and pt was agreeable to try a thermacare wrap and pt was noted to be asleep shortly afterwards. Continue to monitor pt for pain control and offer rest periods as appropriate. lan of Matthias - Ursula Miller RN - 02/16/2022 0225 EDT Problem: Daily Care Plan Goals Goal: Care Plan Documentation Outcome: Met This Shift Flowsheets (Taken 02/16/2022 022) Area of Focus: Safety Goal This Shift: Pt will remain safe all shift No unsafe behaviors noted this shift. Pt has remained safe all shift. WCTM. lan of Griselda Lr, RN - 02/15/2022 0021 EDT Problem: Daily Care Plan Goals Goal: Care Plan Documentation Outcome: Ongoing Flowsheets (Taken 02/14/2022 2300) Area of Focus: Sleep Goal This Shift: adequate sleep and rest Patient asleep. Call white is within reach. Monitor patient for pain, sleep, and safety. Will continue to monitor and do hourly checks. lan of Care - Lina Santiago RN - 02/14/2022 2150 EDT Problem: Daily Care Plan Goals Goal: Care Plan Documentation 02/14/20222149 by Lina Santiago RN Outcome: Met This Shift Flowsheets (Taken 02/14/2022 1534) Area of Focus: Safety Goal This Shift: Safe transfers/mobility 02/14/20222149 by Lina Santiago RN Flowsheets (Taken 02/14/2022 1534) Area of Focus: Safety Goal This Shift: Safe transfers/mobility Data - Pt is s/p recent CVA and also has Parkinson's disease. Pt requires interventions to ensure safe transfers/mobility. Action - Call light within reach. 2 assist with transfers from bed to chair and from bed to stand during evening shift for safety. Voiding with urinal. 100% of meal consumed safely with minimal supervision required. External catheter placed at HS to promote rest. Bed alarm in place. Response - No c/o pain. Pt has expressive aphasia and requires extra time for verbal responses. Medstaken whole in apple sauce. Pt has been safe during this shift. WCTM Plan of Care - Amelia Rodrigues RN - 02/14/2022 1434 EDT Problem: Daily Care Plan Goals Goal: Care Plan Documentation Flowsheets (Taken 02/14/2022 0827) Area of Focus: Safety Goal This Shift: pt will remain safe this shift. Outcome: Met this shift. D: pt alert oriented to person time and place. He takes pills whole with apple sauce. Hx Dm 2 blood sugar ac/hs no insulin required .good set up supper vision with meal able to eat by himself. He is ambulating with Pt last Bm this shift. called to check in updated. Pt remained safe this shift. lan of Matthias - Jazmine Abdi RN - 02/14/2022 1035 EDT Problem: Pressure Ulcer Prevention Goal: Absence Of Pressure Ulcer Outcome: Met This Shift Edwin score 16 on skin rounds. Pt at risk for skin breakdown due to Edwin <17. Bilateral elbowsand heels intact, coccyx intact. Prophylactic sacral mepilex in place. Right knee abrasion, covered with mepilex. Right groin incision is healed. Pt wears [place] cath at HS. Continent/incontinent of bladder. Pt requires assist with turning q 2hrs. Will continue to monitor skin integrity. JAZMINE ABDI RN 02/14/2022 10:35 lan of Care - Jocelin Garza RN - 02/14/2022 0106 EDT Problem: Daily Care Plan Goals Goal: Care Plan Documentation Outcome: Met This Shift Flowsheets (Taken 02/13/20222121) Area of Focus: Safety Goal This Shift: patient will remain safe this shift Patient A&Ox3, answers questions appropriately, however hesitant with speech and hard to understand at times. Patient turned and repositioned q2h, wears [place] cath at night d/t incontinence, voiding overnight CYU. Incontinent x1 before external catheter was placed. Patient denies pain. Patient resting comfortably at this time. Will continue hourly rounding to ensure safety is maintained. lan of Ami Castellano RN - 02/13/2022 1829 EDT Problem: Daily Care Plan Goals Goal: Care Plan Documentation Outcome: Ongoing Flowsheets (Taken 02/13/2022 0850) Area of Focus: Safety Goal This Shift: pt will remain free of harm Patient alert and oriented x1-2. Expressive aphasia. Inc/cont of urine. LBM 7/5. Patient c/o pain 4/10 in neck. Medicated with tylenol PRN with good effect. into visit. Patient and made awareof tentative d/c date of 02/22. Patient's also wondering if patient could have a med/psych consult. also inquiring about [place] catheters at home- concerned about incontinence at night andfall risk. Patient remained free of harm/falls this shift. Transfers improving with therapies- hand hold assist with ambulation- 2 assist. Continue to monitor patient's safety. atient Care Conference - Armaan Townsend MD - 02/13/2022 0907 EDT Inpatient Acute Rehabilitation Unit - Interdisciplinary Team Conference Note Timbo Su 66 y.o. male Team Conference Date/Time: 02/13/2022 @1205 Admit Date/Time: 02/10/2022 9:48 Primary Rehab diagnosis: Parkinsonism and Stroke Comorbid Conditions: Patient Active Problem List Diagnosis ??? Acute CVA (cerebrovascular accident) ([facility] ([facility]) ??? Stroke ([facility] ([facility]) ??? Arterial ischemic stroke, MCA (middle cerebral artery), left, acute ([facility]) ([facility]) ??? Aphasia ??? Dysarthria ??? History of recent stroke Progress towards goals: Nursing: Pain Management: Patient c/o headache and neck pain at times. Tylenol and ice PRN. Well controlled. Bladder:incontinent/cont of urine, Bowel: LBM 7/5 per patient, prone to constipation, continent this AM per patient,, Skin Care:,, Wound Care,, Positioning, Medication Management: heparin, insulin, Diabetes Management: insulin and Functional mobility OT: Notable gains include improved verbal communication today and activity tolerance and Progress limited primarily by impaired coordination, decreased strength, reduced balance, freezing and bradykinesia impacting pt's ability to complete ADLs and IADLs. See below for additional barriers PT: Note PT present for rounds today has not yet met the pt 2/2 PM session. Based on treatment notes: Notable gains include improving ambulation endurance/activity tolerance and Progress limited primarily by freezing, impaired balance, shuffling, bradykinesia. See below for additional barriers Gait: The patient ambulates with mod assist of 1 with U walker for >150 feet. Gait deviations: Decreased foot clearance, shuffling, narrow base of support, freezing at times whenturning to transfer surface, RLE step length shorter compared to L, decreased trunk rotation Stairs:Not evaluated due to current level of function Self-Care:Bed Mobility: Sit->supine: with mod A x 1 With flat bed and rails. Supine->sit: with min contact assist of 1 with head of the bed up and rails. Transfers: Bed < > Chair: stand-step with mod assist of 2 PLANT ANATOMIST: The patient presents with functioning consistent with: at least mild receptive and moderate expressive aphasia compounded by at least moderate motor speech impairments. Speech is dysarthric and non-fluent with evidence of anomia and phonemic paraphasias and/or apraxic component. Intelligibility is reduced, especially beyond the word level. Repetition at the word level is intact. Confrontation, generative, and responsive naming are impaired. Pt's strength in receptive language is noted, including following commands, answering yes/no questions, and reading at the word level. He would be a good candidate for light-tech AAC trials given receptive strengths. Patient currently needs assistance communicating basic wants and needs and directing his medical care. Given patient's age, independence prior to admission, and social/occupational demands, he would benefit from intensive PLANT ANATOMIST intervention. Medical Complications: Atrial fibrillation rate control, Parkinson disease management. Pre-Hospital Living Setting and Support System: Lives in [place], [place] with spouse in one level house with ramped entrance; 24-hour assist, spouse, and patient's brother lives next door. 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 Functional deficits with self-care and mobility with the following impairments: endurance, motor control, sensation, balance, aphasia expressive > receptive. Efforts to Remove Barriers: Patient is tolerating Acute IP Rehab Program intensity well and making significant functional progress. Full rehab program to increase the patient's level of independence with self-care and functional mobility to decrease the amount of assistance and/or supervision needed at discharge. Additional Team Conference Discussion: Initial evaluations indicate that patient is appropriate for acute IP Rehab setting - able to tolerate 3 hours of therapy, 5 days per week with functional goals of practical value. PLANT ANATOMIST updated team that patient benefits from writing instructions down. CM to clarify how much assistance spouse can help at home. Anticipated Actual Discharge Disposition: Discharge Location: Home Caregiver at Discharge: Spouse/significant other/domestic partner Supervision/Assistance at Discharge: 24 hour physical assistance Discharge Date: 02/22/22 Follow-Up Services: Home health with OT, PT, PLANT ANATOMIST and home health aid Anticipated Home Care Needs: None anticipated Reassessment of goals or treatment program: Goals maintained Assessment of need for Acute Rehabilitation level of care: The expected course of treatment continues to require an interdisciplinary approach to maximize interventions and progress towards functional goals established., The patient generally participates actively in therapy at expected intensity levels., Continue therapies by OT, PT and PLANT ANATOMIST and For a total of 3 hours per day, 5 days per week and be expected to make measurable improvement that will be of practical value to improve Timbo Su's functional capacity or adaptation to impairments. Additional interdisciplinary team information: Patient/Caregiver Communication: Nurse will inform patient/family of discharge plan and estimated length of stay Full name and professional designation of each interdisciplinary pilot steam yacht physically in attendance for this team conference. Rehabilitation Physician: Armaan Townsend MD I lead this weekly interdisciplinary team meeting and was responsible for making the final decisions regarding the patient???s treatment in the IRF. I concur with all decisions made by the interdisciplinary team. Scale Agent: Terri Monsivais RN Nurse: Ami Hart RN OT: Dulce Maria Mobley OT PT: Kandace Bellamy PT PLANT ANATOMIST: Robert Wadsworth -PLANT ANATOMIST Many members of the team attended this Team Conference via secure video conferencing in an effort tofacilitate social distancing as we are currently in the coronavirus pandemic. lan of Kasia Anderson LPN - 02/13/2022 0337 EDT Problem: Daily Care Plan Goals Goal: Care Plan Documentation Outcome: Met This Shift Flowsheets (Taken 02/12/2022 2210) Area of Focus: Skin Integrity Goal This Shift: Skin integrity will be maintained this shift. Data: Assumed care of Pt @ 1900. S/p left MCA CVA with right sided weakness and right foot drop. Expressive aphasia. A&O x 2. Hx of DM2, Parkinsons, Afib, diabetic polyneuropathy. Aspiration precautions. FS ACHS. C/o 7/10 pain. Action: Hourly rounding. Call white within reach. Safety measures in place. Dysphagia 3 diet and 1:1 supervision with all PO. Q2H repositioning. Meds given per MAR; with applesauce. Response: Skin integrity maintained this shift. Pt tolerates repositioning well. PRNs given for neckpain. Pt in bed and appears to be resting comfortably. Will cont to monitor. KASIA HELMS LPN 02/13/2022 3:37 lan of Kati Delgado RN - 02/12/2022 0402 EDT Problem: Daily Care Plan Goals Goal: Care Plan Documentation Flowsheets (Taken 02/12/2022 0030) Goal This Shift: adequate rest and sleep. Data: Pt A/Ox3. Has expressive aphasia D/T L MCA CVA with right sided weakness and right foot drop. Right knee with scabbed area with mepilex covering. Turned and repositioned every 2 hours. On dysphagia 3 diet with thin liquids. OOB with CARLO steady and 2 assist. Action: Monitored for pain, safety and sleep. Call light within reach. Turned and repositioned every2 hours. R side elevated on pillows. Response: Pt with no c./o pain and remains safe. Restful and will BRENDA NAQVI RN 02/12/2022 4:19 lan of Favio Zamorano RN - 02/11/2022 2230 EDT Problem: Daily Care Plan Goals Goal: Care Plan Documentation Outcome: Met This Shift Flowsheets (Taken 02/11/2022 1530) Area of Focus: Skin Integrity Goal This Shift: skin will be improved or maintained this shift. Data: pt was alert and cooperative with care, oriented to person and place with some cognitive limitations and some expressive aphagia noted. Able to make needs known. No c/o pain or any discomfort. Ptdid not use call light. Required staff to check on pt frequently for safety. The w/c seat sled out x2 this shift with pt was sitting in. Non slid rubber sheet applied under the seat, tab alarm placed and note left with PT. Shower given this jaspal. Foam dressing at R knee was changed (see assessment in flowsheet). R femoral puncture site was cdi and open to air. Incontinent of bladder and bowel. Used urinal and external cath applied at hs. Action: monitored for safety. Monitored for skin breakdown. Turned and repositioned q 2 hrs. Encouraged po fluids intake. Monitored for comfort level. Transferred oob with 2 assists and Carlo steady. Response: skin integrity maintained. Safety maintained. Resting in bed comfortably at this time. Will cont to monitor. FAVIO CHANDLER RN 02/11/2022 22:15 lan of Care - Prakash Grossman RN - 02/11/2022 1034 EDT Problem: Daily Care Plan Goals Goal: Care Plan Documentation Outcome: Met This Shift Flowsheets Taken 02/10/2022 1136 Area of Focus: Skin Integrity Taken 02/10/2022 1003 Goal This Shift: Pt will remain free from impaired skin this shift Problem: Impaired Skin Integrity Goal: Signs of wound healing will improve Outcome: Met This Shift Data: 66 Yo M LOS 1D d/t L MCA occlusion on CTA; thrombectomy at R Groin; site CDI. PMH: Parkinson'sDisease, A fib, T2DM, HLD. Insulins TID, with meals. 100% supervision of meals. Mobility: 2A GB Bed<>WC. Deep Brain Stimulator (DBS) located at Left chest wall. GI/: continent/incontinent. Action: Assessed & monitored VS, s/e of meds; observed & assessed swallowing during meals and medication administration. High Shoemaker's for food/fluid & meds; needs good set-up. Skin impaired: RLE/knee. Abrasion/diabetic ulcer; CDI with new Mepilex. LLE/knee abrasion & srinivasan abrasion, both SUSTAINABLE COMMUNITIES DESIGNER. Assisted Pt with use of urinal. Response: Pt compliant with verbal cues, able to advocate needs; appropriately used call light to make needs known: assistance with urinal, TV channels & guide. Tolerated swallowing without pain/discomfort/coughing. Tolerated 2A repostioning & transferring WC<>bed. Call light within reach. Will continue to monitor. PRAKASH GROSSMAN RN 02/11/2022 10:34 lan of Care - Ling Stanley RN - 02/11/2022 0500 EDT Problem: Daily Care Plan Goals Goal: Care Plan Documentation Outcome: Ongoing Flowsheets (Taken 02/10/20221999) Area of Focus: Skin Integrity Goal This Shift: maintain skin integrity with repositioning and incontinence checks Data: Pt A&Ox3; slurred, hesitant speech at baseline. Left MCA S/P thrombectomy via right groin.Parkinson's; BUE tremors. 2A with RW or hand hold to ambulate for transfers. Bed alarm for safety. OMAHA. Dysphagia 3 diet with thins; 100% supervision. Medications whole with thins. Action: Pain 6/10 to right shoulder this shift. Some scheduled medications given late due to not available from pharmacy; MD aware. Deep brain stimulator to left chest. Abrasion to right knee with foam; scattered scabs to LLE. Prophylactic foam to sacrum. Repositioned Q3H with urinal offers/incontinence checks. [place] cath attempted this shift, became detached X1 and did not reapply. FS ACHS. Hourly checks complete, safety measures in place, call light in reach. Response: Pt appeared to be resting comfortably between care. Remained safe. Uses call light appropriately. Will continue to monitor and assess this shift. LING STANLEY RN 02/10/2022 21:19 lan of Care - Prakash Grossman RN - 02/10/2022 1137 EDT Problem: Daily Care Plan Goals Goal: Care Plan Documentation Outcome: Met This Shift Flowsheets Taken 02/10/2022 1136 Area of Focus: Skin Integrity Taken 02/10/2022 1003 Goal This Shift: Pt will remain free from impaired skin this shift Problem: Impaired Skin Integrity Goal: Signs of wound healing will improve Outcome: Met This Shift Data: 66 Yo M LOS 1D d/t L MCA occlusion on CTA; thrombectomy at R Groin; site CDI. PMH: Parkinson'sDisease, A fib, T2DM, HLD. Insulins TID, with meals. 100% supervision of meals. Mobility: 2A GB Bed<>WC. Deep Brain Stimulator (DBS) located at Left chest wall. GI/: continent/incontinent. Action: Assessed & monitored VS, s/e of meds; observed & assessed swallowing during meals and medication administration. High Shoemaker's for food/fluid & meds; needs good set-up. Performed FourEyes Assessment. Skin impaired: RLE/knee. Abrasion/diabetic ulcer; CDI with new Mepilex. *Photo uploaded. LLE/knee abrasion & srinivasan abrasion, both SUSTAINABLE COMMUNITIES DESIGNER. Assisted Pt with use of urinal. Response: Pt compliant with verbal cues, able to advocate needs; appropriately used call light to make needs known: assistance with urinal, TV channels & guide. Tolerated swallowing without pain/discomfort/coughing. Tolerated 2A repostioning & transferring WC<>bed. /Gwen was present in mid-morning through lunch. Call light within reach. Will continue to monitor. PRAKASH GROSSMAN RN 02/10/2022 11:38 documented in this encounter Plan of Treatment Scheduled Referrals Name Type Priority Associated Order Schedule Diagnoses AMB CONS/FOLLOW Outpatient Routine/Next Arterial ischemic Expecte d: [facility] Referral Available stroke, MCA 02/28/2022 SERVICES (middle cerebral (Approximat e), artery), left, Expires: acute ([facility]) 02/21/2023 ([facility]) Parkinson's disease ([facility]) ([facility]) documented as of this encounter Procedures Procedure Name Priority Date/Time Associated Comments Diagnosis POCT GLUCOSE, Routine 02/22/2022 6:30 EDT Results for this INTERFACED procedure are i n the results section. [...] results section. POCT GLUCOSE, Routine 02/21/2022 6:19 EDT Results for this INTERFACED procedure are i n the results section. [...] results section. POCT GLUCOSE, Routine 02/19/2022 6:44 EDT Results for this INTERFACED procedure are i n the results section. [...] results section. POCT GLUCOSE, Routine 02/18/2022 6:37 EDT Results for this INTERFACED procedure are i n the results section. [...] results section. POCT GLUCOSE, Routine 02/17/2022 7:14 EDT Results for this INTERFACED procedure are i n the results section. [...] results section. POCT GLUCOSE, Routine 02/16/2022 6:21 EDT Results for this INTERFACED procedure are i n the results section. [...] results section. POCT GLUCOSE, Routine 02/15/2022 6:32 EDT Results for this INTERFACED procedure are i n the results section. POCT GLUCOSE, Routine 02/14/2022 20:25 Results fo r this INTERFACED EDT procedure are i n the results section. POCT GLUCOSE, Routine 02/14/2022 17:03 Results fo r this INTERFACED EDT procedure are i n the results section. POCT GLUCOSE, Routine 02/14/2022 11:33 Results fo r this INTERFACED EDT procedure are i n the results section. POCT GLUCOSE, Routine 02/14/2022 6:30 EDT Results for this INTERFACED procedure are i n the results section. [...] results section. POCT GLUCOSE, Routine 02/13/2022 6:13 EDT Results for this INTERFACED procedure are i n the results section. POCT GLUCOSE, Routine 02/12/2022 20:34 Results fo r this INTERFACED EDT procedure are i n the results section. POCT GLUCOSE, Routine 02/12/2022 17:18 Results fo r this INTERFACED EDT procedure are i n the results section. POCT GLUCOSE, Routine 02/12/2022 11:44 Results fo r this INTERFACED EDT procedure are i n the results section. POCT GLUCOSE, Routine 02/12/2022 11:21 Results fo r this INTERFACED EDT procedure are i n the results section. POCT GLUCOSE, Routine 02/12/2022 6:39 EDT Results for this INTERFACED procedure are i n the results section. POCT GLUCOSE, Routine 02/11/2022 20:23 Results fo r this INTERFACED EDT procedure are i n the results section. POCT GLUCOSE, Routine 02/11/2022 17:20 Results fo r this INTERFACED EDT procedure are i n the results section. POCT GLUCOSE, Routine 02/11/2022 11:22 Results fo r this INTERFACED EDT procedure are i n the results section. POCT GLUCOSE, Routine 02/11/2022 6:43 EDT Results for this INTERFACED procedure are i n the results section. POCT GLUCOSE, Routine 02/10/2022 20:33 Results fo r this INTERFACED EDT procedure are i n the results section. POCT GLUCOSE, Routine 02/10/2022 17:15 Results fo r this INTERFACED EDT procedure are i n the results section. POCT GLUCOSE, Routine 02/10/2022 12:10 Results fo r this INTERFACED EDT procedure are i n the results section. documented in this encounter Results (ABNORMAL) POCT GLUCOSE, INTERFACED (02/22/2022 6:30 EDT) Glucose, POC 158 (H) 70 - 100 [facility] mg/dL LABORATORY SERVICES HN LAB POC COMMENT Test Performed by [facility] [employer] R (GLUCOSE) Nursing Services LABORATORY SERVICES Specimen Blood - Capillary blood (substance) Performing Organization Address City/[facility]/ZIP Code Phon e Number [facility] LABORATORY [address] [place] [address] SERVICES (ABNORMAL) POCT GLUCOSE, INTERFACED (02/21/2022 20:31 EDT) Glucose, POC 190 (H) 70 - 100 [facility] mg/dL LABORATORY SERVICES HN LAB POC COMMENT Test Performed by [facility] [employer]at [employer] R (GLUCOSE) Nursing Services LABORATORY SERVICES Specimen Blood - Capillary blood (substance) Performing Organization Address [facility]/ZIP Code Phon e Number [facility] LABORATORY [address] [place] [address] SERVICES (ABNORMAL) POCT GLUCOSE, INTERFACED (02/21/2022 17:11 EDT) Glucose, POC 154 (H) 70 - 100 [facility] mg/dL LABORATORY SERVICES HN LAB POC COMMENT Test Performed by [facility] [employer] R (GLUCOSE) Nursing Services LABORATORY SERVICES Specimen Blood - Capillary blood (substance) Performing Organization Address City/[facility]/ZIP Code Phon e Number [facility]ORATORY [address] [place] [address] SERVICES (ABNORMAL) POCT GLUCOSE, INTERFACED (02/21/2022 11:32 EDT) Glucose, POC 148 (H) 70 - 100 [facility] mg/dL LABORATORY SERVICES HN LAB POC COMMENT Test Performed by [facility] [employer]harat [employer] R (GLUCOSE) Nursing Services LABORATORY SERVICES Specimen Blood - Capillary blood (substance) Performing Organization Address City/[facility]/ZIP Code Phon e Number [facility]OR[facility]ORY [address] [place] [address] SERVICES (ABNORMAL) POCT GLUCOSE, INTERFACED (02/21/2022 6:19 EDT) Glucose, POC 164 (H) 70 - 100 [facility] mg/dL LABORATORY SERVICES HN LAB POC COMMENT Test Performed by [facility] [employer] R (GLUCOSE) Nursing Services LABORATORY SERVICES Specimen Blood - Capillary blood (substance) Performing Organization Address City/[facility]/ZIP Code Phon e Number [facility] [address] [place] [address] SERVICES (ABNORMAL) POCT GLUCOSE, INTERFACED (02/20/2022 20:36 EDT) Glucose, POC 223 (H) 70 - 100 [facility] mg/dL LABORATORY SERVICES HN LAB POC COMMENT Test Performed by [facility] Bharat [employer] R (GLUCOSE) Nursing Services LABORATORY SERVICES Specimen Blood - Capillary blood (substance) Performing Organization Address City/[facility]/ZIP Code Phon e Number [facility] [address] [place] [address] SERVICES (ABNORMAL) POCT GLUCOSE, INTERFACED (02/20/2022 17:00 EDT) Glucose, POC 188 (H) 70 - 100 [facility] mg/dL LABORATORY SERVICES HN LAB POC COMMENT Test Performed by [facility] [employer]harat [employer] R (GLUCOSE) Nursing Services LABORATORY SERVICES Specimen Blood - Capillary blood (substance) Performing Organization Address City/[facility]/ZIP Code Phon e Number [facility] [address] [place] [address] SERVICES (ABNORMAL) POCT GLUCOSE, INTERFACED (02/20/2022 12:13 EDT) Glucose, POC 154 (H) 70 - 100 [facility] mg/dL LABORATORY SERVICES HN LAB POC COMMENT Test Performed by [facility] Bharat MatrimonyE R (GLUCOSE) Nursing Services LABORATORY SERVICES Specimen Blood - Capillary blood (substance) Performing Organization Address City/[facility]/ZIP Code Phon e Number [facility] [address] [place] [address] SERVICES (ABNORMAL) POCT GLUCOSE, INTERFACED (02/19/2022 20:32 EDT) Glucose, POC 180 (H) 70 - 100 [facility] mg/dL LABORATORY SERVICES HN LAB POC COMMENT Test Performed by [facility] Bharat MatrimonyE R (GLUCOSE) Nursing Services LABORATORY SERVICES Specimen Blood - Capillary blood (substance) Performing Organization Address City/[facility]/ZIP Code Phon e Number [facility] [address] [place] [address] SERVICES (ABNORMAL) POCT GLUCOSE, INTERFACED (02/19/2022 20:21 EDT) Glucose, POC 171 (H) 70 - 100 [facility] mg/dL LABORATORY SERVICES HN LAB POC COMMENT Test Performed by [facility] [employer] R (GLUCOSE) Nursing Services LABORATORY SERVICES Specimen Blood - Capillary blood (substance) Performing Organization Address City/State/ZIP Code Phon e Number [facility] [address] [place] [address] SERVICES (ABNORMAL) POCT GLUCOSE, INTERFACED (02/19/2022 17:02 EDT) Glucose, POC 133 (H) 70 - 100 [facility] mg/dL LABORATORY SERVICES HN LAB POC COMMENT Test Performed by [facility] Bharat MatrimonyE R (GLUCOSE) Nursing Services LABORATORY SERVICES Specimen Blood - Capillary blood (substance) Performing Organization Address City/[facility]/ZIP Code Phon e Number [facility] [address] [place] [address] SERVICES (ABNORMAL) POCT GLUCOSE, INTERFACED (02/19/2022 11:58 EDT) Glucose, POC 154 (H) 70 - 100 [facility] mg/dL LABORATORY SERVICES HN LAB POC COMMENT Test Performed by [facility] MEDICAL Bharat MatrimonyE R (GLUCOSE) Nursing Services LABORATORY SERVICES Specimen Blood - Capillary blood (substance) Performing Organization Address City/[facility]/ZIP Code Phon e Number [facility] [address] [place] [address] SERVICES (ABNORMAL) POCT GLUCOSE, INTERFACED (02/19/2022 6:44 EDT) Glucose, POC 163 (H) 70 - 100 [facility] mg/dL LABORATORY SERVICES HN LAB POC COMMENT Test Performed by [facility] [employer] R (GLUCOSE) Nursing Services LABORATORY SERVICES Specimen Blood - Capillary blood (substance) Performing Organization Address City/State/ZIP Code Phon e Number [facility] [address] [place] [address] SERVICES (ABNORMAL) POCT GLUCOSE, INTERFACED (02/18/2022 20:54 EDT) Glucose, POC 137 (H) 70 - 100 [facility] mg/dL LABORATORY SERVICES HN LAB POC COMMENT Test Performed by [facility] CENT[facility] R (GLUCOSE) Nursing Services LABORATORY SERVICES Specimen Blood - Capillary blood (substance) Performing Organization Address City/State/ZIP Code Phon e Number [facility] [address] [place] [address] SERVICES (ABNORMAL) POCT GLUCOSE, INTERFACED (02/18/2022 16:30 EDT) Glucose, POC 234 (H) 70 - 100 [facility] mg/dL LABORATORY SERVICES HN LAB POC COMMENT Test Performed by [facility] R (GLUCOSE) Nursing Services LABORATORY SERVICES Specimen Blood - Capillary blood (substance) Performing Organization Address City/[facility]/ZIP Code Phon e Number [facility] [address] [place] [address] SERVICES (ABNORMAL) POCT GLUCOSE, INTERFACED (02/18/2022 14:02 EDT) Glucose, POC 153 (H) 70 - 100 [facility] mg/dL LABORATORY SERVICES HN LAB POC COMMENT Test Performed by [facility] R (GLUCOSE) Nursing Services LABORATORY SERVICES Specimen Blood - Capillary blood (substance) Performing Organization Address [facility]/ZIP [facility] Phon e Number [facility] [address] [place] [address] SERVICES (ABNORMAL) POCT GLUCOSE, INTERFACED (02/18/2022 6:37 EDT) Glucose, POC 136 (H) 70 - 100 [facility] mg/dL LABORATORY SERVICES HN LAB POC COMMENT Test Performed by [facility] [employer] R (GLUCOSE) Nursing Services LABORATORY SERVICES Specimen Blood - Capillary blood (substance) Performing Organization Address City/[facility]/ZIP Code Phon e Number [facility] [address] [place] [address] SERVICES (ABNORMAL) POCT GLUCOSE, INTERFACED (02/17/2022 20:44 EDT) Glucose, POC 184 (H) 70 - 100 [facility] mg/dL LABORATORY SERVICES HN LAB POC COMMENT Test Performed by [facility] R (GLUCOSE) Nursing Services LABORATORY SERVICES Specimen Blood - Capillary blood (substance) Performing Organization Address City/[facility]/ZIP Code Phon e Number [facility] [address] [place] [address] SERVICES (ABNORMAL) POCT GLUCOSE, INTERFACED (02/17/2022 16:53 EDT) Glucose, POC 139 (H) 70 - 100 [facility] mg/dL LABORATORY SERVICES HN LAB POC COMMENT Test Performed by [facility] Crew [facility]ENTE R (GLUCOSE) Nursing Services LABORATORY SERVICES Specimen Blood - Capillary blood (substance) Performing Organization Address [facility]/ZIP Code Phon e Number [facility] [address] [place] [address] SERVICES (ABNORMAL) POCT GLUCOSE, INTERFACED (02/17/2022 11:57 EDT) Glucose, POC 201 (H) 70 - 100 [facility] mg/dL LABORATORY SERVICES HN LAB POC COMMENT Test Performed by [facility] [employer] R (GLUCOSE) Nursing Services LABORATORY SERVICES Specimen Blood - Capillary blood (substance) Performing Organization Address City/[facility]/ZIP Code Phon e Number [facility] [address] [place] [address] SERVICES (ABNORMAL) POCT GLUCOSE, INTERFACED (02/17/2022 7:14 EDT) Glucose, POC 127 (H) 70 - 100 [facility] mg/dL LABORATORY SERVICES HN LAB POC COMMENT Test Performed by [facility] Bharat MatrimonyE R (GLUCOSE) Nursing Services LABORATORY SERVICES Specimen Blood - Capillary blood (substance) Performing Organization Address [facility]/ZIP Code Phon e Number [facility] [address] [place] [address] SERVICES (ABNORMAL) POCT GLUCOSE, INTERFACED (02/16/2022 20:37 EDT) Glucose, POC 180 (H) 70 - 100 [facility] mg/dL LABORATORY SERVICES HN LAB POC COMMENT Test Performed by [facility] [employer] R (GLUCOSE) Nursing Services LABORATORY SERVICES Specimen Blood - Capillary blood (substance) Performing Organization Address [facility]/ZIP Code Phon e Number [facility] [address] [place] [address] SERVICES (ABNORMAL) POCT GLUCOSE, INTERFACED (02/16/2022 16:51 EDT) Glucose, POC 148 (H) 70 - 100 [facility] mg/dL LABORATORY SERVICES HN LAB POC COMMENT Test Performed by [facility] [employer] R (GLUCOSE) Nursing Services LABORATORY SERVICES Specimen Blood - Capillary blood (substance) Performing Organization Address City/[facility]/ZIP Code Phon e Number [facility] [address] [place] [address] SERVICES (ABNORMAL) POCT GLUCOSE, INTERFACED (02/16/2022 11:41 EDT) Glucose, POC 157 (H) 70 - 100 [facility] mg/dL LABORATORY SERVICES HN LAB POC COMMENT Test Performed by [facility] [employer] R (GLUCOSE) Nursing Services LABORATORY SERVICES Specimen Blood - Capillary blood (substance) Performing Organization Address City/State/ZIP Code Phon e Number [facility] [address] [place] [address] SERVICES (ABNORMAL) POCT GLUCOSE, INTERFACED (02/16/2022 6:21 EDT) Glucose, POC 148 (H) 70 - 100 [facility] mg/dL LABORATORY SERVICES HN LAB POC COMMENT Test Performed by [facility] Bharat MatrimonyE R (GLUCOSE) Nursing Services LABORATORY SERVICES Specimen Blood - Capillary blood (substance) Performing Organization Address City/[facility]/ZIP Code Phon e Number [facility] [address] [place] [address] SERVICES (ABNORMAL) POCT GLUCOSE, INTERFACED (02/15/2022 20:33 EDT) Glucose, POC 192 (H) 70 - 100 [facility] mg/dL LABORATORY SERVICES HN LAB POC COMMENT Test Performed by [facility] Bharat MatrimonyE R (GLUCOSE) Nursing Services LABORATORY SERVICES Specimen Blood - Capillary blood (substance) Performing Organization Address City/[facility]/ZIP Code Phon e Number [facility] [address] [place] [address] SERVICES (ABNORMAL) POCT GLUCOSE, INTERFACED (02/15/2022 17:38 EDT) Glucose, POC 139 (H) 70 - 100 [facility] mg/dL LABORATORY SERVICES HN LAB POC COMMENT Test Performed by [facility] Bharat MatrimonyE R (GLUCOSE) Nursing Services LABORATORY SERVICES Specimen Blood - Capillary blood (substance) Performing Organization Address City/State/ZIP Code Phon e Number [facility] [address] [place] [address] SERVICES (ABNORMAL) POCT GLUCOSE, INTERFACED (02/15/2022 11:37 EDT) Glucose, POC 153 (H) 70 - 100 [facility] mg/dL LABORATORY SERVICES HN LAB POC COMMENT Test Performed by [facility] Bharat Matrimony[employer] R (GLUCOSE) Nursing Services LABORATORY SERVICES Specimen Blood - Capillary blood (substance) Performing Organization Address City/[facility]/ZIP Code Phon e Number [facility] [address] [place] [address] SERVICES (ABNORMAL) POCT GLUCOSE, INTERFACED (02/15/2022 11:25 EDT) Glucose, POC 183 (H) 70 - 100 [facility] mg/dL LABORATORY SERVICES HN LAB POC COMMENT Test Performed by [facility] R (GLUCOSE) Nursing Services LABORATORY SERVICES Specimen Blood - Capillary blood (substance) Performing Organization Address City/[facility]/ZIP Code Phon e Number [facility] [address] [place] [address] SERVICES (ABNORMAL) POCT GLUCOSE, INTERFACED (02/15/2022 6:32 EDT) Glucose, POC 127 (H) 70 - 100 [facility] mg/dL LABORATORY SERVICES HN LAB POC COMMENT Test Performed by [facility] R (GLUCOSE) Nursing Services LABORATORY SERVICES Specimen Blood - Capillary blood (substance) Performing Organization Address [facility]/ZIP Code Phon e Number [facility] [address] [place] [address] SERVICES (ABNORMAL) POCT GLUCOSE, INTERFACED (02/14/2022 20:25 EDT) Glucose, POC 165 (H) 70 - 100 [facility] mg/dL LABORATORY SERVICES HN LAB POC COMMENT Test Performed by [facility] R (GLUCOSE) Nursing Services LABORATORY SERVICES Specimen Blood - Capillary blood (substance) Performing Organization Address City/[facility]/ZIP Code Phon e Number [facility] [address] [place] [address] SERVICES (ABNORMAL) POCT GLUCOSE, INTERFACED (02/14/2022 17:03 EDT) Glucose, POC 183 (H) 70 - 100 [facility] mg/dL LABORATORY SERVICES HN LAB POC COMMENT Test Performed by [facility] R (GLUCOSE) Nursing Services LABORATORY SERVICES Specimen Blood - Capillary blood (substance) Performing Organization Address City/[facility]/ZIP Code Phon e Number [facility] [address] [place] [address] SERVICES (ABNORMAL) POCT GLUCOSE, INTERFACED (02/14/2022 11:33 EDT) Glucose, POC 160 (H) 70 - 100 [facility] mg/dL LABORATORY SERVICES HN LAB POC COMMENT Test Performed by [facility] R (GLUCOSE) Nursing Services LABORATORY SERVICES Specimen Blood - Capillary blood (substance) Performing Organization Address City/State/ZIP Code Phon e Number [facility] [address] [place] [address] SERVICES (ABNORMAL) POCT GLUCOSE, INTERFACED (02/14/2022 6:30 EDT) Glucose, POC 145 (H) 70 - 100 [facility] mg/dL LABORATORY SERVICES HN LAB POC COMMENT Test Performed by [facility] [employer] R (GLUCOSE) Nursing Services LABORATORY SERVICES Specimen Blood - Capillary blood (substance) Performing Organization Address City/State/ZIP Code Phon e Number [facility] [address] [place] [address] SERVICES (ABNORMAL) POCT GLUCOSE, INTERFACED (02/13/2022 20:17 EDT) Glucose, POC 193 (H) 70 - 100 [facility] mg/dL LABORATORY SERVICES HN LAB POC COMMENT Test Performed by [facility] [employer] R (GLUCOSE) Nursing Services LABORATORY SERVICES Specimen Blood - Capillary blood (substance) Performing Organization Address City/[facility]/ZIP Code Phon e Number [facility] [address] [place] [address] SERVICES (ABNORMAL) POCT GLUCOSE, INTERFACED (02/13/2022 16:35 EDT) Glucose, POC 138 (H) 70 - 100 [facility] mg/dL LABORATORY SERVICES HN LAB POC COMMENT Test Performed by [facility] [employer] R (GLUCOSE) Nursing Services LABORATORY SERVICES Specimen Blood - Capillary blood (substance) Performing Organization Address City/[facility]/ZIP Code Phon e Number [facility] [address] [place] [address] SERVICES (ABNORMAL) POCT GLUCOSE, INTERFACED (02/13/2022 11:32 EDT) Glucose, POC 170 (H) 70 - 100 [facility] mg/dL LABORATORY SERVICES HN LAB POC COMMENT Test Performed by [facility] [employer] R (GLUCOSE) Nursing Services LABORATORY SERVICES Specimen Blood - Capillary blood (substance) Performing Organization Address City/State/ZIP Code Phon e Number [facility] [address] [place] [address] SERVICES (ABNORMAL) POCT GLUCOSE, INTERFACED (02/13/2022 6:13 EDT) Glucose, POC 152 (H) 70 - 100 [facility] mg/dL LABORATORY SERVICES HN LAB POC COMMENT Test Performed by [facility] [employer] R (GLUCOSE) Nursing Services LABORATORY SERVICES Specimen Blood - Capillary blood (substance) Performing Organization Address City/[facility]/ZIP Code Phon e Number [facility] [address] [place] [address] SERVICES (ABNORMAL) POCT GLUCOSE, INTERFACED (02/12/2022 20:34 EDT) Glucose, POC 156 (H) 70 - 100 [facility] mg/dL LABORATORY SERVICES HN LAB POC COMMENT Test Performed by [facility] Bharat [employer] R (GLUCOSE) Nursing Services LABORATORY SERVICES Specimen Blood - Capillary blood (substance) Performing Organization Address City/[facility]/ZIP Code Phon e Number [facility] [address] [place] [address] SERVICES (ABNORMAL) POCT GLUCOSE, INTERFACED (02/12/2022 17:18 EDT) Glucose, POC 156 (H) 70 - 100 [facility] mg/dL LABORATORY SERVICES HN LAB POC COMMENT Test Performed by [facility] Bharat [employer] R (GLUCOSE) Nursing Services LABORATORY SERVICES Specimen Blood - Capillary blood (substance) Performing Organization Address City/[facility]/ZIP Code Phon e Number [facility] [address] [place] [address] SERVICES (ABNORMAL) POCT GLUCOSE, INTERFACED (02/12/2022 11:44 EDT) Glucose, POC 158 (H) 70 - 100 [facility] mg/dL LABORATORY SERVICES HN LAB POC COMMENT Test Performed by [facility] Bharat [employer] R (GLUCOSE) Nursing Services LABORATORY SERVICES Specimen Blood - Capillary blood (substance) Performing Organization Address City/[facility]/ZIP Code Phon e Number [facility] [address] [place] [address] SERVICES (ABNORMAL) POCT GLUCOSE, INTERFACED (02/12/2022 11:21 EDT) Glucose, POC 67 (L) 70 - 100 [facility] mg/dL LABORATORY SERVICES HN LAB POC COMMENT Test Performed by [facility] Bharat [employer] R (GLUCOSE) Nursing Services LABORATORY SERVICES Specimen Blood - Capillary blood (substance) Performing Organization Address City/[facility]/ZIP Code Phon e Number [facility] [address] [place] [address] SERVICES (ABNORMAL) POCT GLUCOSE, INTERFACED (02/12/2022 6:39 EDT) Glucose, POC 156 (H) 70 - 100 [facility] mg/dL LABORATORY SERVICES HN LAB POC COMMENT Test Performed by [facility] [employer] R (GLUCOSE) Nursing Services LABORATORY SERVICES Specimen Blood - Capillary blood (substance) Performing Organization Address City/State/ZIP Code Phon e Number [facility] [address] [place] [address] SERVICES (ABNORMAL) POCT GLUCOSE, INTERFACED (02/11/2022 20:23 EDT) Glucose, POC 172 (H) 70 - 100 [facility] mg/dL LABORATORY SERVICES HN LAB POC COMMENT Test Performed by [facility] [employer]har[employer] R (GLUCOSE) Nursing Services LABORATORY SERVICES Specimen Blood - Capillary blood (substance) Performing Organization Address City/State/ZIP Code Phon e Number [facility] [address] [place] [address] SERVICES (ABNORMAL) POCT GLUCOSE, INTERFACED (02/11/2022 17:20 EDT) Glucose, POC 143 (H) 70 - 100 [facility] mg/dL LABORATORY SERVICES HN LAB POC COMMENT Test Performed by [facility] [employer]har[employer] R (GLUCOSE) Nursing Services LABORATORY SERVICES Specimen Blood - Capillary blood (substance) Performing Organization Address City/State/ZIP Code Phon e Number [facility] [address] [place] [address] SERVICES (ABNORMAL) POCT GLUCOSE, INTERFACED (02/11/2022 11:22 EDT) Glucose, POC 188 (H) 70 - 100 [facility] mg/dL LABORATORY SERVICES HN LAB POC COMMENT Test Performed by [facility] Bharat [employer] R (GLUCOSE) Nursing Services LABORATORY SERVICES Specimen Blood - Capillary blood (substance) Performing Organization Address City/State/ZIP Code Phon e Number [facility] [address] [place] [address] SERVICES (ABNORMAL) POCT GLUCOSE, INTERFACED (02/11/2022 6:43 EDT) Glucose, POC 142 (H) 70 - 100 [facility] mg/dL LABORATORY SERVICES HN LAB POC COMMENT Test Performed by [facility] CENTE R (GLUCOSE) Nursing Services LABORATORY SERVICES Specimen Blood - Capillary blood (substance) Performing Organization Address City/State/ZIP Code Phon e Number [facility] [address] [place] [address] SERVICES (ABNORMAL) POCT GLUCOSE, INTERFACED (02/10/2022 20:33 EDT) Glucose, POC 176 (H) 70 - 100 [facility] mg/dL LABORATORY SERVICES HN LAB POC COMMENT Test Performed by [facility] [employer] R (GLUCOSE) Nursing Services LABORATORY SERVICES Specimen Blood - Capillary blood (substance) Performing Organization Address [facility]/ZIP [facility] Phon e Number [facility] [address] [place] [address] SERVICES (ABNORMAL) POCT GLUCOSE, INTERFACED (02/10/2022 17:15 EDT) Glucose, POC 109 (H) 70 - 100 [facility] mg/dL LABORATORY SERVICES HN LAB POC COMMENT Test Performed by [facility] [employer] R (GLUCOSE) Nursing Services LABORATORY SERVICES Specimen Blood - Capillary blood (substance) Performing Organization Address [facility] Phon e Number [facility] [address] [place] [address] SERVICES (ABNORMAL) POCT GLUCOSE, INTERFACED (02/10/2022 12:10 EDT) Glucose, POC 194 (H) 70 - 100 [facility] mg/dL LABORATORY SERVICES HN LAB POC COMMENT Test Performed by [facility] [employer] R (GLUCOSE) Nursing Services LABORATORY SERVICES Specimen Blood - Capillary blood (substance) Performing Organization Address City/[facility] Phon e Number [facility] [address] [place] [address] SERVICES documented in this encounter Visit Diagnoses Diagnosis History of recent stroke - Primary Arterial ischemic stroke, MCA (middle ce rebral artery), left, acute ([facility] ([facility]) Unspecified cerebral artery occlusion wi th cerebral infarction Aphasia Dysarthria Diabetes mellitus type 2 in nonobese ([facility]-CMS) ([facility]) Type II or unspecified type diabetes troy litus without mention of complication, not stated as uncontrolled Parkinson's disease ([facility]) ([facility]) Paralysis agitans Longstanding persistent atrial fibrillat ion (HCC-CMS) ([facility] Other constipation Acute CVA (cerebrovascular accident) ([facility] ([facility]) Rehab Individualized Plan of Care - Tequila Llamas MD - 02/12/2022 0745 EDT Individualized Overall Plan of Care I have reviewed this patient's pre-admission screening, post-admission evaluation, assessments from the involved therapy disciplines including OT, PT and PLANT ANATOMIST and all other pertinent assessments to datein the development of this overall plan of care for Timbo Su. Reason for admission is CVA The medical prognosis for this patient is good with continued supportive treatment including daily medical monitoring for neuro status. I anticipate that this patient will achieve a level of function such that he will complete functional mobility independently with supervision and with assist of 1 helper, and self care independently with supervision and with assist of 1 helper at the time of discharge. The estimated length of stay is 10 days with planned discharge to the home setting. Based on his current impairments, functional status, complicating conditions and other contributing factors, this patient continues to require a multidisciplinary team for an average of 3 hours total of OT, PT and PLANT ANATOMIST daily, 5 days a week, to achieve therapy and team goals. With this level of therapy, this patient can reasonably be expected to make measurable improvement as a result of the rehabilitation treatment. The time stated is an average and may be varied day to day based on patient's individual daily needs. Tequila Llamas MD 02/12/2022 7:45 documented in this encounter Admitting Diagnoses Diagnosis Arterial ischemic stroke, MCA (middle ce rebral artery), left, acute ([facility] (HCC) Unspecified cerebral artery occlusion wi th cerebral infarction History of recent stroke documented in this encounter Administered Medications Inactive Administered Medications - up to 3 most recent administrations Medication Order MAR Action Action Date Dose Rate Site acetaminophen (TYLENOL) tablet 650 mg Given 02/22/2022 8:22 EDT 650 mg 650 mg, oral, EVERY 4 HOURS PRN, Starting on 02/10/22 at 1141, Until Marianne 02/22/22 at 1252, Pain, Routine Given 02/21/2022 20:54 EDT 650 mg Given 02/21/2022 3:47 EDT 650 mg aspirin chewable tablet 81 mg Given 02/22/2022 8:22 EDT 81 mg 81 mg, oral, DAILY, First dose (after last modification) on 02/11/22 at 0800, Until Discontinued, Routine Given 02/21/2022 7:28 EDT 81 mg Given 02/20/2022 8:26 EDT 81 mg atorvastatin (LIPITOR) tablet 40 mg Given 02/13/2022 8:38 EDT 40 mg 40 mg, oral, DAILY, First dose (after last modification) on Sat02/11/22 at 0800, Until Discontinued, Routine Given 02/12/2022 8:52 EDT 40 mg Given 02/11/2022 8:25 EDT 40 mg atorvastatin (LIPITOR) tablet 80 mg Given 02/22/2022 8:22 EDT 80 mg 80 mg, oral, DAILY, First dose (after last modification) on Sat02/14/22 at 0800, Until Discontinued, Routine Given 02/21/2022 7:28 EDT 80 mg Given 02/20/2022 8:25 EDT 80 mg bisacodyL (DULCOLAX) EC tablet 10 mg 10 mg, oral, DAILY PRN, Starting on [facility] 02/10/22 at 1141, Until [facility] 02/22/22 at 1252, Constipation, Routine bisacodyL (DULCOLAX) suppository 10 mg 10 mg, rectal, DAILY PRN, Starting on [facility] 02/10/22 at 11 41, Until [facility] 02/22/22 at 1252, Constipation, Routine calcium carbonate (TUMS) 200 mg calcium (500 Given 12/2021 12:43 EDT 1 Tablet mg) per chewable tablet tablet,chewable 1 Tablet 1 Tablet, oral, 4 TIMES DAILY PRN, Starting on [facility] 02/10/22 at 1141, Until [facility] 02/22/22 at 1252, Heartburn, Indigestion, Routine carbidopa-levodopa (SINEMET) 25-250 mg per Given 02/22/2022 8:22 EDT 1 Tablet tablet 1 Tablet 1 Tablet, oral, USER SPECIFIED (4 times per day), First dose (after last modification) on [facility] 02/10/22 at 1300, Until Discontinued, Routine Given 02/21/2022 20:41 EDT 1 Tablet Given 02/21/2022 16:39 EDT 1 Tablet DULoxetine (CYMBALTA) delayed release capsule 60 Given 02/22/2022 8:22 EDT 60 mg mg 60 mg, oral, DAILY, First dose (after last modification) on [place] 02/11/22 at 0800, Until Discontinued, Routine Given 02/21/2022 7:28 EDT 60 mg Given 02/20/2022 8:25 EDT 60 mg entacapone (COMTAN) tablet 200 mg Given 02/22/2022 8:23 EDT 200 mg 200 mg, oral, USER SPECIFIED (3 times per day), First dose (after last modification) on [facility] 02/10/22 at 1300, Until Discontinued, Routine Given 02/21/2022 16:39 EDT 200 mg Given 02/21/2022 13:29 EDT 200 mg gabapentin (NEURONTIN) capsule 100 mg Given 02/22/2022 8:23 EDT 100 mg 100 mg, oral, 2 TIMES DAILY, First dose (after last modification) on [facility] 02/10/22 at 2100, Until Discontinued, Routine Given 02/21/2022 20:41 EDT 100 mg Given 02/21/2022 7:29 EDT 100 mg glucagon injection 1 mg 1 mg, intramuscular, PRN, Starting on [facility] 02/10/22 at 11 41, Until [facility] 02/22/22 at 1252, Other, Low blood sugar, Routine heparin injection 5,000 Units Given 02/21/2022 7:28 EDT 5,000 Units 5,000 Units, subcutaneous, EVERY 12 HOURS, First dose (after last modification) on [facility] 02/10/22 at 2000, Until Discontinued, Routine Given 02/20/2022 19:35 EDT 5,000 Units Given 02/20/2022 8:25 EDT 5,000 Units insulin aspart U-100 (NOVOLOG FLEXPEN) Given 02/14/2022 17:34 ED T 1 Units injection subcutaneous, 3 TIMES DAILY WITH MEALS, First dose (after last modification) on [facility] 02/10/22 at 1200, Until Discontinued, Routine Given 02/12/2022 8:50 EDT 2 Units Given 02/11/2022 17:24 EDT 2 Units metFORMIN (GLUCOPHAGE) tablet 500 mg Given 02/22/2022 8:23 EDT 500 mg 500 mg, oral, DAILY WITH BREAKFAST, First dose on [facility] 02/15/22 at 0800, Until Discontinued, Routine Given 02/21/2022 7:29 EDT 500 mg Given 02/20/2022 8:26 EDT 500 mg metoprolol SUCCinate (TOPROL-XL) tablet 50 mg Given 02/22/2022 8:23 EDT 50 mg 50 mg, oral, DAILY, First dose on 02/20/22 at 0800, Until Discontinued, Routine Given 02/21/2022 7:29 EDT 50 mg Given 02/20/2022 8:26 EDT 50 mg metoprolol TARtrate (LOPRESSOR) tablet 5 0 mg Given 02/19/2022 8:11 EDT 50 mg 50 mg, oral, 2 TIMES DAILY, First dose (after last modification) on 02/10/22 at 2100, Until Discontinued, Routine Given 02/18/2022 20:46 EDT 50 mg Given 02/18/2022 14:03 EDT 50 mg polyethylene glycol 3350 (MIRALAX) packe t 17 g Given 02/22/2022 8:21 EDT 17 g 17 g, oral, 2 TIMES DAILY, First dose (after last modification) on 02/10/22 at 2100, Until Discontinued, Routine Given 02/21/2022 20:41 EDT 17 g Given 02/21/2022 7:28 EDT 17 g senna (SENOKOT) tablet 2 Tablet Given 02/21/2022 20:41 EDT 2 Tablets 2 Tablet, oral, AT BEDTIME, First dose (after last modification) on 02/10/22 at 2100, Until Discontinued, Routine Given 02/20/2022 20:56 EDT 2 Tablets Given 02/19/2022 20:00 EDT 2 Tablets documented in this encounter Discontinued Medications Medication Sig Discontinue Reason Start Date End Date glipiZIDE (GLUCOTROL) 5 Take 5 mg by mouth 2 02/22/2022 mg tablet times daily. insulin aspart U-100 Sliding scale as 02/10/2022 (NOVOLOG FLEXPEN) 100 above unit/mL (3 mL) injectable pen documented as of this encounter Active and Recently Administered Medications Times are shown in EDT. Scheduled Medication Order 02/20/2022 02/21/2022 02/22/2022 aspirin chewable tablet 81 mg 0826 (Given - Provider: Courtney garza RN) 0728 (Given - Provider: Terri Wallace RN) 0822 (Given - Provider: Courtney Marsh RN) 81 mg, oral, DAILY, First dose (after la st modification) on 02/11/22 at 0800, Until Discontinued, Routine atorvastatin (LIPITOR) tablet 80 mg 08 (Given - Provider: Courtney Marsh RN) 0728 (Given - Provider: Terri Wallace RN) 0822 (Given - Provider: Courtney Marsh RN) 80 mg, oral, DAILY, First dose (after la st modification) on Sat02/14/22 at 0800, Until Discontinued, Routine carbidopa-levodopa (SINEMET) 25-250 mg per tablet 1 Ta blet 08 (Given - Provider: Courtney Marsh RN)131 (Given - Provider: Kasia Helms LPN)171 (Given - Provider: Ambreen Irizarry RN)2055 (Given - Provider: Ambreen Iriazrry RN) 09 (Given - Provider: Terri girard RN)132 (Given - Provider: Terri Wallace, JANNETTE)163 (Given - Provider: Ambreen Irizarry RN)2040 (Given - Provider: Ambreen Irizarry RN) 08 (Given - Provider: Courtney Marsh RN) 1 Tablet, oral, USER SPECIFIED (4 times per day), First dose (after last modification) on 02/10/22 at 1300, Until Discontinued, Routine DULoxetine (CYMBALTA) delayed release capsule 60 mg 08 (Given - Provider: Courtney Marsh RN) 0728 (Given - Provider: Terri Wallace RN) 08 (Given - Provider: Courtney Marsh RN) 60 mg, oral, DAILY, First dose (after la st modification) on 02/11/22 at 0800, Until Discontinued, Routine entacapone (COMTAN) tablet 200 mg 08 (Given - Provid er: Courtney Marsh RN)131 (Given - Provider: Kasia Helms LPN)171 (Given - Provider: Ambreen Irizarry RN) 09 (Given - Provider: Terri girard RN)132 (Given - Provider: Terri Wallace RN)163 (Given - Provider: Ambreen Irizarry RN) 08 (Given - Provider: Courtney Marsh RN ) 200 mg, oral, USER SPECIFIED (3 times pe r day), First dose (after last modification) on 02/10/22 at 1300, Until Discontinued, Routine gabapentin (NEURONTIN) capsule 100 mg 825 (Given - Pr ovider: Courtney Marsh RN)2055 (Given - Provider: Ambreen Irizarry RN) 728 (Given - Provider: Terri Wallace, JANNETTE)2040 (Given - Provider: Ambreen Irizarry RN) 08 (Given - Provider: Courtney Marsh RN) 100 mg, oral, 2 TIMES DAILY, First dose (after last modification) on 02/10/22 at 2100, Until Discontinued, Routine heparin injection 5,000 Units (CANCELED) 824 (Given - Provider: Courtney Marsh RN)1934 (Given - Provider: Ambreen Irizarry RN) 727 (Given - Provider: Terri aWllace, JANNETTE) 5,000 Units, subcutaneous, EVERY 12 HOUR S, First dose (after last modification) on 02/10/22 at 2000, Until Discontinued, Routine metFORMIN (GLUCOPHAGE) tablet 500 mg 825 (Given - Provider: Courtney Marsh RN) 728 (Given - Provider: Terri Wallace, JANNETTE) 822 (Given - Provider: Courtney Marsh RN) 500 mg, oral, DAILY WITH BREAKFAST, Firs t dose on Sat02/15/22 at 0800, Until Discontinued, Routine metoprolol SUCCinate (TOPROL-XL) tablet 50 mg 825 (Gi analilia - Provider: Courtney Marsh RN) 728 (Given - Provider: Terri Wallace, JANNETTE) 04 03 (Given - Provider: Courtney Marsh, JANNETTE) 50 mg, oral, DAILY, First dose on 08/02 at 0800, Until Discontinued, Routine polyethylene glycol 3350 (MIRALAX) packet 17 g 823 (G iven - Provider: Courtney Marsh RN)2057 (Not Given - Provider: Ambreen Irizarry RN - Reason: Order parameters not met - Comment: lg soft bm) 727 (Given - Provider: Terri Wallace RN)2040 (Given - Provider: Ambreen Irizarry RN) 820 (Given - Provider: Courtney Marsh, RN) 17 g, oral, 2 TIMES DAILY, First dose (a fter last modification) on 02/10/22 at 2100, Until Discontinued, Routine senna (SENOKOT) tablet 2 Tablet 2055 (Given - Provider: Valentin Irizarry RN) 2040 (Given - Provider: Ambreen Irizarry RN) 2 Tablet, oral, AT BEDTIME, First dose ( after last modification) on 02/10/22 at 2100, Until Discontinued, Routine PRN Medication Order 02/20/2022 02/21/2022 02/22/2022 acetaminophen (TYLENOL) tablet 650 mg (Given - Provider: Ludy Stewart RN)2053 (Given - Provider: Ambreen Irizarry RN) 821 (Given - Provider: Courtney Marsh, JANNETTE) 650 mg, oral, EVERY 4 HOURS PRN, Startin g on 02/10/22 at 1141, Until [place] 02/22/22 at 1252, Pain, Routine bisacodyL (DULCOLAX) EC tablet 10 mg(Linked Group 1) 10 mg, oral, DAILY PRN, Starting on 02/10/22 at 1141, Until [place] 02/22/22 at 1252, Constipation, Routine bisacodyL (DULCOLAX) suppository 10 mg(Linked Group 1) 10 mg, rectal, DAILY PRN, Starting on [facility] 02/10/22 at 1141, Until [place] 02/22/22 at 1252, Constipation, Routine calcium carbonate (TUMS) 200 mg calcium (500 mg) per chewable tablet tablet,chewable 1 Tablet 1 Tablet, oral, 4 TIMES DAILY PRN, Start ing on 02/10/22 at 1141, Until [place] 02/22/22 at 1252, Heartburn, Indigestion, Routine glucagon injection 1 mg 1 mg, intramuscular, PRN, Starting on [facility] 02/10/22 at 1141, Until [place] 02/22/22 at 1252, Other, Low blood sugar, Routine Linked Groups Order Group 1: bisacodyL (DULCOLAX) EC tablet 10 mgJump to med 10 mg, oral, DAILY PRN, Starting on 02/10/22 at 1141, Until [place] 02/22/22 at 1252, Constipation, Routine Or bisacodyL (DULCOLAX) suppository 10 mgJump to med 10 mg, rectal, DAILY PRN, Starting on [facility] 02/10/22 at 1141, Until [place] 02/22/22 at 1252, Constipation, Routine documented in this encounter Orders Medications Ordered That Might Not Have Count Last Ord ered Date First Ordered Date Been Administered bisacodyL (DULCOLAX) EC tablet 10 mg 1 02/10/2022 bisacodyL (DULCOLAX) suppository 10 mg 1 glucagon injection 1 mg 1 02/10/2022 Nursing Count Last Ordered Date First Ordered Date VTE PHARMACOLOGIC PROPHYLAXIS CURRENTLY 1 02/11/20 22 ORDERED OR ON ALTERNATIVE THER Admission Count Last Ordered Date First Ordered Date ADMIT TO IP REHAB 1 02/10/2022 Discharge Count Last Ordered Date First Ordered Date DISCHARGE PATIENT 1 02/22/2022 Leave of Absence Count Last Ordered Date First Ordered Date LEAVE OF ABSENCE 2 02/18/2022 02/12/2022 documented in this encounter Care Teams Threshing Operator Relationship Specialty Start Date End Date Griselda Stanley MD PCP - General 06/06/12 [address] [facility] [place] [address] documented as of this encounter
--- OUTSIDE RECORDS SUMMARY | 2022-02-26 04:08 | XMS_ITS | Encounter Summary ---
:1955 Author Organization [facility] Address [address] [place] [address] Care Team Providers Name Role Phone Griselda [...] Expiration Date Visits Requ ested Visits Authorized [id number] 1 1 Encounter Details Date Type Department Care Team Description 02/04/2022 Anesthesia Event [facility] Isidro Maravilla MD [address] [address] Interventional Radiology Conrado Vila, COLLATERAL SPECIALIST [address] [address] [address] [place], [place] [id number] Anesthesia Record Procedure Summary Procedure Name Responsible Anesthesia Start Anesthesia Stop Anesthesiologist Time Time IR STROKE THROMBECTOMY Jared Maravilla, 02/04/22 1447 02/04/22 Christine7 Events Date Time Event Comment 02/04/2022 1447 An Start The patient was re-evaluated immediately before moderate or deep sedation use, before anesthesia induction, or be fore the anesthesia procedure. 1447 An Start Data 1452 An Induction The patient was reevaluated immediately before moderate or deep sedation use and before anesthesia induction. 1456 An Intubation 1456 Anesthesia Ready 1456 [place] Preoxygenated wi th 100% O2 via facemask, head and neck neutral, ey es closed and taped shut with paper tape on inductio n. ETT cuff inflated with minimal volume to create seal. 1533 An Extubation 1545 an stop data 1546 Handoff to RN I completed my h andoff to the receiving nurse during which we: 1. Andres ntified the patient 2. Identified the responsible provider 3. Reviewed the pertinent medical history 4. Discussed the surgical course 5. Reviewed intra-o p anesthesia management and issues during anesthesi a 6. Set expectations for post-procedure p eriod 7. Allowed opportunity for questions and ac knowledgement of understanding. 1547 An Stop Name Total fentanyl citrate (PF) injection 50 mcg ondansetron (PF) (ZOFRAN) injection 8 mg propOFol (DIPRIVAN) injection 100 mg rocuronium 10 mg/mL vial 50 mg sugammadex 100 mg/mL 2 mL vial 200 mg lactated ringers (LR) infusion 300 mL Agents Name Exp Sevoflurane (Aux) Insp Sevoflurane (Aux) O2 N2O Air Blood No blood administrations on file. Lines, Drains, and Airways Type Details Placement Removal Peripheral IV 02/04/22; 1428; 18; 02/04/22 1428 by 02/10/22 05 00 by 1.25; B Bright Introcan; Bibi Hanley Teresa, RN Right; Antecubital; Patient arrived with LDA; 1; None; 02/10/22; 0500; Leaking Non-Surgical Airway 02/04/22; 1500 (created 02/04/22 1500 by 1533 by via procedure Conrado Vila, COLLATERAL SPECIALIST Conrado Vila, documentation); COLLATERAL SPECIALIST 02/04/22; 1533 Wound 02/04/22; 1530; Right; 02/04/22 1530 by Neal, 0946 by Groin; right femoral JANNETTE Jimenes An ne, RN artery puncture; N; 02/20/22; 0946; Healed documented in this encounter Social History Tobacco [...] have Coronavirus/COVID-19? documented as of this encounter OR Notes Anesthesia Postprocedure Evaluation - Jared Maravilla MD - 02/13/2022 0704 EDT Patient: Timbo Su Vital signs were reviewed with the recovery nurse. Complete vitals history is available in the Epic flowsheets. Vitals Value Taken Time BP 141/87 02/13/22 0629 Temp 36.6 ??C (97.9 ??F) 02/13/22 0629 Resp 14 02/13/22 0629 Pulse From Oximetry 68 BPM 02/12/22 1600 SpO2 95 % 02/13/22 06 Heart Rate 67 BPM 02/13/22 0221 Last Pain Score - Numeric Pain Level (Scale 1-10): 7 Type of Anesthesia - general Anesthesia Post Evaluation Post-procedure vitals reviewed and are stable. Level of consciousness: awake Temperature status: normothermia Respiratory status: airway patent Cardiovascular status: acceptable Hydration status: adequate Nausea/Vomiting: none Pain management: adequate Post-Op Assessment: patient tolerated procedure well with no complications Patient participation: unable to participate due to sedation Disposition: inpatient Anesthesia Complications: No apparent anesthesia complications Anesthesia Procedure Notes - Conrado Vila CRNA - 02/04/2022 1459 EDT Associated Order(s): Airway Airway Date/Time: 02/04/2022 14:56 Urgency: elective Airway not difficult General Information and Staff Patient location during procedure: OR Anesthesiologist: Jared Maravilla MD Resident/COLLATERAL SPECIALIST: Conrado Vila CRNA Performed: anesthesiologist and resident/COLLATERAL SPECIALIST/AA Indications and Patient Condition Indications for airway management: anesthesia Sedation level: GA Preoxygenated: yes Patient position: sniffing Ventilation assessment: 0 - not attempted Final Airway Details Final airway type: endotracheal airway Successful airway: ETT Cuffed: yes Successful intubation technique: video laryngoscopy Kerens Facilitating devices/methods: intubating stylet Endotracheal tube insertion site: oral Blade: Vonnie Blade size: #3 ETT size (mm): 7.5 Cormack-Lehane Classification: grade IIa - partial view of glottis Placement verified by: chest auscultation and capnometry Measured from: teeth ETT to teeth (cm): 23 Number of attempts at approach: 1 Additional Comments No problems Brijesh assisting nesthesia Preprocedure Evaluation - Conrado Vila CRNA - 02/04/2022 1453 EDT Anesthesia Preprocedure Evaluation Patient Medical History, including Anesthesia History reviewed. Chart and Nursing Notes reviewed, including NPO status and Medication History. Additional ROS/History Findings: 66yo M with history of Parkinson's s/p neurostimulator, otherwise unknown medical history transferred from [facility] for stroke code. Planning on emergent stroke thrombectomy. Not on File Review of Systems Unable to perform ROS: Acuity of condition No past medical history on file. Relevant Problems Neuro/Psych (+) Acute CVA (cerebrovascular accident) (HCC-CMS) (HCC) Physical Exam Airway Mallampati: Unknown Cardiovascular Rhythm: regular Rate: normal Dental Comments: Edentulous upper Pulmonary Breath sounds clear to auscultation Abdominal Anesthesia Plan ASA 4 Anesthesia Type - general, to include intravenous induction. Block for post-op pain? No Code status discussed? No H&P not reviewed Emergent case, time sensitive, presumed consent. BRANDT SANCHEZ Note Notes from 01/05/22 through 02/04/22 No notes of this type exist for this encounter. documented in this encounter Plan of Treatment Not on filedocumented as of this encounter Procedures Procedure Name Priority Date/Time Associated Comments Diagnosis ANESTHESIA Routine 02/04/2022 14:56 Results for this INTUBATION EDT procedure are i n the results section. ANESTHESIA Routine 02/04/2022 14:56 Results for this INTUBATION EDT procedure are i n the results section. documented in this encounter Results ID AN ELECTIVE ENDOTRACHEAL AIRWAY, ID ANESTHESIA NON-TIMED PLACEHOLDER (02/04/2022 14:56 EDT) Narrative Conrado Vila CRNA - 02/04/2022 14:56 EDT Conrado Vila CRNA ? 02/04/2022 15:00 Airway Date/Time: 02/04/2022 14:56 Urgency: elective Airway not difficult General Information and Staff Patient location during procedure: OR Anesthesiologist: Jared Maravilla MD Resident/COLLATERAL SPECIALIST: Conrado Vila CRNA Performed: anesthesiologist and resident /COLLATERAL SPECIALIST/AA Indications and Patient Condition Indications for airway [...] at approach: 1 Additional Comments No problems C.Quill assisting documented in this encounter Visit Diagnoses Not on filedocumented in this encounter Administered Medications Inactive Administered Medications - up to 3 most recent administrations Medication Order MAR Action Action Date Dose Rate Site fentaNYL citrate (PF) injection Given 02/04/2022 14:52 EDT 50 mcg intravenous, PRN, Starting on 02/04/22 at 1452, Until Sat02/13/22 at 0704, Routine, Anesthesia Intraprocedure lactated ringers (LR) infusion New Bag 02/04/2022 14:47 EDT intravenous, FA IP EQF CONTINUOUS PRN FOR ONE STEP MEDS, Starting on Sat02/04/22 at 1447, Until Sat02/13/22 at 0704, Routine, Anesthesia Intraprocedure ondansetron (PF) (ZOFRAN) injection Given 02/04/2022 15:28 EDT 4 mg intravenous, PRN, Starting on Sat02/04/22 at 1520, Until Sat02/13/22 at 0704, Routine, Anesthesia Intraprocedure Given 02/04/2022 15:20 EDT 4 mg propOFol (DIPRIVAN) injection Given 02/04/2022 14:52 EDT 100 mg intravenous, PRN, Starting on Sat02/04/22 at 1452, Until Sat02/13/22 at 0704, Routine, Anesthesia Intraprocedure rocuronium (ZEMURON) injection Given 02/04/2022 14:52 EDT 50 mg intravenous, PRN, Starting on Sat02/04/22 at 1452, Until Sat02/13/22 at 0704, Routine, Anesthesia Intraprocedure sugammadex (BRIDION) injection Given 02/04/2022 15:28 EDT 200 mg intravenous, PRN, Starting on Sat02/04/22 at 1528, Until Sat02/13/22 at 0704, Routine, Anesthesia Intraprocedure documented in this encounter Care Teams Cylinder Loader Relationship Specialty Start Date End Date Griselda Stanley MD PCP - General 06/06/12 [address] [place] [address] documented as of this encounter
--- OUTSIDE RECORDS SUMMARY | 2022-02-26 04:08 | XMS_ITS | Encounter Summary ---
:1955 Author Organization [facility] Address [address] [place] [address] Care Team Providers Name Role Phone Griselda Stanley MD Primary Care Provider Encounter Details Date Type Department Care Team Description 02/04/2022 Travel Social History Tobacco Use Types Packs/Day Years Used Date Unknown If Ever Smoked Smokeless Tobacco: Never Used Sex Assigned at Date Recorded Not on file COVID-19 Exposure Response Date Recorded In the last 10 days, have you been in contact Unable to asse ss 02/04/2022 12:31 EDT with someone who was confirmed or suspected to have Coronavirus/COVID-19? documented as of this encounter Plan of Treatment Not on filedocumented as of this encounter Visit Diagnoses Not on filedocumented in this encounter Care Teams Pool Player Relationship Specialty Start Date End Date Griselda Stanley MD PCP - General 06/06/[address] [place] [address],[address] [place] [address] documented as of this encounter
--- OUTSIDE RECORDS SUMMARY | 2022-02-26 04:08 | XMS_ITS | Encounter Summary ---
:1955 Author Organization [facility] Address [address] [place] [address] Care Team Providers Name Role Phone Griselda Stanley MD Primary Care Provider Reason for Visit Reason Comments Aphasia Pt arrivies via EMS from [facility]. Pt at rehab post stroke, baseline aphasia and left sided weakn ess. Per staff, aphasia is worse so they sent pt here. BGL 136 w/ EMS. Encounter Details Date Type Department Care Team Description 02/18/2022 Emergency [facility] Louisa Law Ap hasia (Primary Dx) Emergency Department - [address] [address] [address], [place] [address] (Wo rk) Social History Tobacco Use Types [...] Sign Reading Time Taken Comments Blood Pressure 169/91 02/18/2022 1200 EDT Pulse 58 02/18/2022 0747 EDT Temperature 35.6 ??C (96.1 ??F) 02/18/2022 0747 EDT Respiratory Rate 13 02/18/2022 1200 EDT Oxygen Saturation 99% 02/18/2022 1100 EDT Inhaled Oxygen Concentration - - Weight - - Height - - Body Mass Index - - documented in this encounter Functional Status Functional Status Response Date of Assessment Are you deaf or do you have serious difficulty hearing? No 02/12/2022 Are you blind or do you have serious difficulty seeing, No 02/11/2022 even when wearing glasses? Do you have serious difficulty walking or climbing Yes 02/11/2022 stairs? (5 years old or older) Do you have difficulty dressing or bathing? (5 years old Yes 02/11/2022 or older) Because of a physical, mental, or emotional condition, do Az s 02/11/2022 you have difficulty doing errands alone such as visiting a doctor's office or shopping? (15 years old or older) Cognitive Status Response Date of Assessment Because of a physical, mental, or emotional condition, do Ye s 02/11/2022 you have serious difficulty concentrating, remembering, or making decisions? (5 years old or older) documented as of this encounter Discharge Instructions Louisa Fernandez MD - 02/18/2022 You were seen in the emergency department for difficulty speaking. You appear to be back to your baseline at this point in time. The CT scan of your head did not show any evidence of a significant bleed. You were seen by the neurologist who noted it was likely your aphasia will continue to wax and wane. documented in this encounter Medications at Time [...] injectable pen documented as of this encounter Discharge Disposition Disposition Code Departure Means Destination Home or Self Assisted documented in this encounter ED Notes Chichi Bean RN - 02/18/2022 1327 EDT Patient ordered for discharge. IV removed. Discharge teaching provided. Patient verbalized understanding discharge instruction, follow up, and return criteria. NAD noted or verbalized by patient. Report called to [facility] specialist, pt transported via ambulance back to facility. Estela Mayen - 02/18/2022 1152 EDT LAS TO GET PATIENT AT 1330. [employer] IS AWARE. Chichi Edmond RN - 02/18/2022 1120 EDT Report to [facility]ce Banks RN, awaiting ambulance ride back to rehab. Chichi Edmond RN - 02/18/2022 1100 EDT Assisted pt to use bedpan, pt moving all extremities, turning self in bed. New brief and linens. Chichi Edmond RN - 02/18/2022 1017 EDT Pt called RN to room. Brief and linen changed. Louisa Lawler MD - 02/18/2022 0810 EDT Emergency Department Visit I, Louisa Law, performed a history and exam of this patient and discussed the case with the resident. I have reviewed and edited this note, and the documentation is consistent with my findings, assessment and plan. I fully participated in the medical decision making. Patient with recent cva, repeat CT obtained. Neuro consulted, felt patient was at baseline, no further workup needed. Neuro resident called [facility] to discuss expected waxing and waning of symptoms. DC back to rehab. Chief Complaint Chief Complaint Patient presents with ??? Aphasia Pt arrivies via EMS from [facility]. Pt at rehab post stroke, baseline aphasia and left sided weakness. Per staff, aphasia is worse so they sent pt here. BGL 136 w/ EMS. Assessment and ED Course Patient evaluated at bedside, and neurological exam is unremarkable except for apparent aphasia, likely expressive. Patient reports no other concerns at this time or any pain. Patient case was discussed with his providers at [facility], and the staff there reported that the night nurse had called EMS for concerns of headache and aphasia but that this nurse had never worked with this patient before. A broad differential was considered for explanations behind his presentation today. Given concern ofrecent stroke and possible new neurological symptoms, laboratory work-up including CBC, CMP, urinalysis was ordered, along with imaging including chest x-ray and CT of head noncontrast. CBC, CMP, chest x-ray are reviewed and unremarkable. CT of head noncontrast was read as petechial hemorrhage in the area of the infarct, so neurology was consulted. Neurology evaluated patient at bedside and believe that patient was at or near to her baseline and that there was no additional intervention or benefit to admission. They personally called back patient's rehab facility and ensured that patient baseline will be documented and that they were comfortable caring for his current status. Patient was informed of this recommendation to be discharged back to his rehab facility, and he understands and agrees with this plan. All questions were answered. Final diagnoses: Aphasia Disposition: Discharged HPI This note was created and authored by Mati Ross working under the supervision of No att. providers found. Timbo Su is a 66 y.o. male who presents to the ED [facility] for concern of confusion and worsening of aphasia. 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 His night nurse noticed that he was confused and complaining of a headache upon waking up this morning, and therefore activated EMS. Upon examination, patient denies pain but does have continued expressive aphasia and difficulty explaining why he was brought to the emergency department.Patient is able to answer yes and no to questions, but struggles to make sentences with more than 3-5 words. History was provided by: Patient, [facility] rehab staff, EMS Patient's pertinent PMH, FH, SH were reviewed and edited as necessary. .Review of Systems Constitutional: Negative for chills and fever. HENT: Negative for congestion and sore throat. Eyes: Negative for blurred vision and pain. Respiratory: Negative for cough and shortness of breath. Cardiovascular: Negative for chest pain, palpitations and leg swelling. Gastrointestinal: Negative for abdominal pain, constipation, diarrhea, nausea and vomiting. Genitourinary: Negative for dysuria and urgency. Musculoskeletal: Negative for falls and myalgias. Skin: Negative for itching and rash. Neurological: Positive for tremors and speech change. Negative for dizziness, tingling, focal weakness, loss of consciousness and headaches. Physical Exam Vital Signs Temp: 35.6 ??C (96.1 ??F) Pulse: 58 Heart Rate: 57 BPM Resp: 13 SpO2: 99 % Pulse From Oximetry: 56 BPM BP: (!) 169/91 BP MAP: 113 mm Hg BP Device: BP Machine BP Patient Position: Semi fowlers BP Cuff Location: Right arm O2 Device: None (Room air) There is no height or weight on file to calculate BMI. A medical screening exam was performed. Physical Exam Constitutional: General: He is not in acute distress. Appearance: Normal appearance. He is not ill-appearing, toxic-appearing or diaphoretic. HENT: Head: Normocephalic and atraumatic. Right Ear: External ear normal. Left Ear: External ear normal. Nose: Nose normal. No congestion. Mouth/Throat: Mouth: Mucous membranes are moist. Pharynx: Oropharynx is clear. Eyes: General: No scleral icterus. Extraocular Movements: Extraocular movements intact. Conjunctiva/sclera: Conjunctivae normal. Pupils: Pupils are equal, round, and reactive to light. Cardiovascular: Rate and Rhythm: Normal rate and regular rhythm. Pulses: Normal pulses. Heart sounds: Normal heart sounds. No murmur heard. Pulmonary: Effort: Pulmonary effort is normal. No respiratory distress. Breath sounds: Normal breath sounds. No stridor. No wheezing, rhonchi or rales. Abdominal: General: Abdomen is flat. Bowel sounds are normal. There is no distension. Palpations: Abdomen is soft. Tenderness: There is no abdominal tenderness. There is no guarding. Musculoskeletal: General: No swelling or tenderness. Normal range of motion. Cervical back: Normal range of motion and neck supple. Skin: General: Skin is warm and dry. Capillary Refill: Capillary refill takes less than 2 seconds. Coloration: Skin is not pale. Neurological: Mental Status: He is alert. Comments: Patient has expressive aphasia, does not form sentences longer than 3-5 words, but indicates understanding to spoken and written language. Patient is oriented to self, time, and place but unable to articulate why he has been brought to the hospital. Cranial nerves II through XII intact. Motor strength 5/5 in bilateral deltoids, triceps, biceps, interosseous warp drawer, hip flexors, knee flexors,knee extensors, plantarflexion, dorsiflexion. Sensation intact to light touch bilaterally C5-T2 and L3-S1. Coordination normal, no concern for dysdiadochokinesia. Psychiatric: Mood and Affect: Mood normal. Behavior: Behavior normal. Results Laboratory results independently reviewed, significant for: Unremarkable urinalysis, CBC, CMP, UA, and CXR was not indicative of any cardiopulmonary pathology. Procedures Procedures documented in this encounter Plan of Treatment Scheduled Orders Name Type Priority Associated Diagnoses Order S chedule EKG 12-LEAD ECG STAT One Time for 1 Occurrences starting 02/18/2022 unti l 02/18/2022 documented as of this encounter Procedures Procedure Name Priority Date/Time Associated Comments Diagnosis URINE CHEMICAL (DIP) & STAT 02/18/2022 10:57 R esults for this SEDIMENT (MICRO) WITH EDT proced ure are in REFLEX TO CULTURE the result s section. COMPLETE BLOOD COUNT STAT 02/18/2022 9:41 Resu lts for this AND DIFFERENTIAL EDT procedure a re in the results section. COMPREHENSIVE STAT 02/18/2022 9:41 Results for this METABOLIC PANEL (CMP) EDT proced ure are in the results section. CT HEAD WO CONTRAST STAT 02/18/2022 9:23 Resul ts for this EDT procedure are i n the results section. XR CHEST PORTABLE 1 STAT 02/18/2022 9:00 Resul ts for this VIEW EDT procedure are i n the results section. documented in this encounter Results URINE CHEMICAL (DIP) & SEDIMENT (MICRO) WITH REFLEX TO CULTURE (02/18/2022 10:57 EDT) Color UA Yellow Colorless, Yellow [facility] Clarity UA Clear Clear [facility] Glucose UA Negative Negative [facility] Bilirubin UA Negative Negative [facility] Ketones UA Negative Negative [facility] Specific [place], 1.010 1.001 - 1.035 [facility] Urine LABORATORY SERVICES Blood UA Negative Negative [facility] Urobilinogen UA Normal Normal mg/dL [facility] Nitrite UA Negative Negative [facility] Leukocyte Esterase UA Negative Negative [facility] Protein UA Negative Negative [facility] pH, UA 6.0 4.6 - 8.0 [facility] Urine RBC Count, Auto 0 - 2 0 - 2 Cells/HPF [facility]AT[facility] SERVICES Urine WBC Count, Auto 0 - 3 0 - 3 Cells/HPF [facility] Urine Squamous Count, None Seen None Seen [facility] Auto Cells/HPF LABORATORY SERVICES Urine Hyaline Cast <=10 <=10 Casts/LPF [facility] Count, Auto LABORATORY SERVICES Urine Bacteria Count, None Seen None Seen [facility] Auto Bacteria/HPF LABORATORY SERVICES Specimen Urine - Urine specimen collection, clean catch (procedure) Narrative [facility] - 02/18/2022 11:21 EDT NOTE: Reflex to Urine Culture test is not aung cated based on Urine Sediment Analysis results. Urine Sediment Analysis results are unre liable on urines that are unrefrigerated for >2 hrs or refrigerated >8 hrs. Performing Organization Address City/[facility] Code Phon e Number [facility] [address] [phone] SERVICES (ABNORMAL) COMPREHENSIVE METABOLIC PANEL (CMP) (02/18/2022 9:41 EDT) Pathologist Sig nature Sodium 140 136 - 145 [facility] mmol/L LABORATORY SERVICES Potassium 4.4 3.5 - 5.0 [facility] mmol/L LABORATORY SERVICES Chloride 103 96 - 110 mmol/L [facility] CO2 Total 30 22 - 32 mmol/L [facility] Glucose 161 (H) 70 - 100 mg/dL [facility] BUN 15 10 - 26 mg/dL [facility] Creatinine 0.88 0.66 - 1.25 [facility] mg/dL LABORATORY SERVICES eGFR 95 >60 [facility] mL/min/1.73m2 LABORATORY SERVICES Total Protein 7.7 6.3 - 8.2 g/dL [facility] SERVICES Albumin 5.1 (H) 3.4 - 4.9 g/dL [facility] Alkaline Phosphatase 99 38 - 126 U/L [facility] AST 30 15 - 46 U/L [facility] ALT 26 <50 U/L [facility] Bilirubin, Total 1.0 <1.4 mg/dL [facility] Calcium 9.8 8.5 - 10.5 [facility] mg/dL LABORATORY SERVICES Albumin/Globulin 2.0 1.0 - 2.5 [facility] Ratio LABORATORY SERVICES Anion Gap 7 5 - 14 [facility] Specimen Blood - Venous blood (substance) Performing Organization Address City/[facility]/ZIP Code Phon e Number [facility] [address] [phone] SERVICES COMPLETE BLOOD COUNT AND DIFFERENTIAL (02/18/2022 9:41 EDT) Pathologist Sig nature WBC 9.48 4.00 - 10.40 [facility] K/[facility] LABORATORY SERVICES RBC 4.84 4.36 - 5.78 [facility] LABORATORY SERVICES Hemoglobin 14.2 13.8 - 17.3 [facility] gm/dL LABORATORY SERVICES HCT 41.8 39.5 - 50.2 % [facility] SERVICES MCV 86 81 - 95 fl [facility] MCH 29.3 27.6 - 33.0 pg [facility] MCHC 34.0 32.8 - 36.4 [facility] gm/dL LABORATORY SERVICES RDW-CV 13.7 <14.2 % [facility] SERVICES RDW-SD 42.1 <46.0 fl [facility] LABORATORY SERVICES PLT 193 141 - 377 K/[facility] LABORATORY SERVICES MPV 11.3 9.5 - 12.7 fl [facility] SERVICES Neutrophils 61.2 % [facility] Lymphocytes 32.0 % [facility] Monocytes 5.5 % [facility] Eosinophils 0.6 % [facility] Basophils 0.4 % [facility] Immature Grans 0.3 % [facility] SERVICES Absolute Neutrophils 5.80 2.20 - 8.85 [facility] LABORATORY SERVICES Absolute Lymphocytes 3.03 1.09 - 3.30 [facility] LABORATORY SERVICES Absolute Monocytes 0.52 0.10 - 0.80 [facility] LABORATORY SERVICES Absolute Eosinophils 0.06 0.03 - 0.61 [facility] LABORATORY SERVICES Absolute Basophils 0.04 0.01 - 0.11 [facility] LABORATORY SERVICES Absolute Immature 0.03 0.00 - 0.06 [facility] LABORATORY SERVICES Type of Differential: Auto [facility] Specimen Blood - Venous blood (substance) Performing Organization Address City/State/ZIP Code Phon e Number [facility] [address] [place] [address] HEAD WO CONTRAST (02/18/2022 9:23 EDT) Anatomical Region Laterality Modality Head Computed Tomography Specimen Impressions [facility] - 02/18/2022 10:28 [...] interpretation and agree with the findings. Narrative [facility] - 02/18/2022 10:28 [...] Organization Address City/State/ZIP Code Phon e Number [facility] XR CHEST PORTABLE 1 VIEW (02/18/2022 9:00 EDT) Anatomical Region Laterality Modality Computed Radiography Specimen Impressions [facility] - 02/18/2022 11:45 EDT 1. ??No interval change aside from low lung volumes. Narrative [facility] - 02/18/2022 11:45 [...] Organization Address City/State/ZIP Code Phon e Number [facility] documented in this encounter Visit Diagnoses Diagnosis Aphasia - Primary documented in this encounter Care Teams Mr Teacher Relationship Specialty Start Date End Date Griselda Stanley MD PCP - General 06/06/12 [address]ER,RENÉ [address] [place] [address] documented as of this encounter
--- OUTSIDE RECORDS SUMMARY | 2022-02-26 04:08 | XMS_ITS | Encounter Summary ---
:1955 Author Organization [facility] Address [address] [place] [address] Care Team Providers Name Role Phone Unknown, Provider Primary Care Provider Encounter Details Date Type Department Care Team Description 06/04/2012 Results Only [facility] Dmitriy Varela MD Laboratory Services - [address] [place] [address] [place] [address] [phone] Social History Tobacco Use Types Packs/Day Years Used Date Never Assessed Sex Assigned at Date Recorded Not on file documented as of this encounter Plan of Treatment Not on filedocumented as of this encounter Procedures Procedure Name Priority Date/Time Associated Diagnosis Comme [facility] SURGICAL PATHOLOGY Routine 06/04/2012 0:00 EDT Re sults for this procedure are i n the results section. documented in this encounter Results SURGICAL PATHOLOGY (06/04/2012 0:00 EDT) Pathology Report: SURGICAL PATHOLOGY REPORT CLAUDIA GARCIA Reports generated via electronic interface contain jesus ginal data; LAB however they are lacking the format of the original re port. Caution should be taken when reading/interpreting unfo rmatted reports. Name: ? TIMBO SU ? Accession #: ? [id number] ? : ? 1955 (Age: 56) ??M ? Collect Date: ? 06/04/2012 ? Location: ? [facility] ? Receive Date: ? 06/05/20 12 ? Provider: DMITRIY VARELA MD Copy to: GIANCARLO ESPINOZA MD ? Final Pathologic Diagnosis: A. ? Colon, distal transverse, polyp, bio psy: ?1. ?? Tubular adenoma. B. ?Colon, ascending, polyp, biopsy: ? 1. ?? Fragments of tubular adenoma. C. ?Rectum, polyps, biopsies: ? 1. ?? Tubulovillous adenoma (0.8cm). ? 2. ?? Hyperplastic polyps. Document reviewed and electronically signed by: CLAUDIA KUMAR [facility] for CESAR BOWEN MD Report ??Date: 06/06/2012 12:38 By the signature above, the attending physician certif ies that he/she has personally conducted a gross and/or microscopic examin ation of the described specimens and rendered or confirmed the above diagnosi s. Specimen(s) Received: A. ?Distal transverse colon polyp B. ? Ascending colon polyp C. ? Polyps rectum Clinical History: ? Colonoscopy screening; FH polyps Gross Description: ? Received in formalin labelled Timbo Su a nd #1 polyp distal transverse colon is a light agarwal biopsy measuring 0.2 x 0.2 x 0.1 cm. ??The specimen is submitted intact as (A). Received in formalin labelled Titi Su and #2 polyp asc colon are two light agarwal biopsies measuring 0.2 x 0.2 x 0.1 cm and 0.3 x 0.3 x 0.1 cm. ??The specimens are submitted intact as (B). Received in formalin labelled Timbo Su and #3 polyps rectum are two light agarwal biopsies and a lob ulated polyp. ??The biopsies measure 0.2 x 0.2 x 0.1 cm, each. ??These are submit josias intact as (C1). ??The agarwal-pink polyp measures 0.8 x 0.8 x 0.7 cm. ??The specimen is inked, trisect ed, and submitted entirely as (C2). ??(SKYE Carreon)/sandeep End of Report Specimen Performing Organization Address City/State/ZIP Code Phon e Number [facility] [address] [place] [address] SERVICES [facility] [address] [place] [address] documented in this encounter Visit Diagnoses Not on filedocumented in this encounter Care Teams Temperature Regulator Relationship Specialty Start Date End Date Unknown, Provider, PCP - General 06/05/12 06/05/12 documented as of this encounter
--- OUTSIDE RECORDS SUMMARY | 2022-02-26 04:08 | XMS_ITS | Encounter Summary ---
:1955 Author Organization [facility] Address [address] [place] [address] Care Team Providers Name Role Phone Griselda Stanley MD Primary Care Provider Reason for Visit Reason Comments Aphasia BIBEMS from [facility] as stroke alert for concern for increasing aphasia. hx CBA and thrombec rylie 02/04/22, residual R sided weakness. LKW 1315. afib 70s on tele. Encounter Details Date Type Department Care Team Description 02/12/[address] [facility] Julián Pérez MD A phasia as late effect Emergency Department MSc of cerebrovascular - [address] accident (Primary Dx) [address] [phone] [place], [address] [place] [id number] (Wo rk) Social History Tobacco Use Types [...] Sign Reading Time Taken Comments Blood Pressure 119/82 02/12/2022 1600 EDT Pulse - - Temperature 36.9 ??C (98.4 ??F) 02/12/2022 1443 EDT Respiratory Rate 13 02/12/2022 1600 EDT Oxygen Saturation 100% 02/12/2022 1600 EDT Inhaled Oxygen Concentration - - Weight 97.7 kg (215 lb 6.2 oz) 02/12/2022 1454 EDT Height 185.4 cm (6' 1) 02/12/2022 1454 EDT Body Mass Index 28.42 02/12/2022 1454 EDT documented in this encounter Functional Status [...] condition, do Ye s 02/11/2022 you have difficulty doing errands alone such as visiting a doctor's office or shopping? (15 years old or older) Cognitive Status Response Date of Assessment Because of a physical, mental, or emotional condition, do Ye s 02/11/2022 you have serious difficulty concentrating, remembering, or making decisions? (5 years old or older) documented as of this encounter Discharge Instructions Julián Walter MD MSc - 02/12/2022 Timbo was evaluated in the emergency department for speech difficulty in the setting of recent stroke. He underwent a CT angiogram and the results were reassuring and he had blood work including a urinalysis as well as a chest x-ray due to a new cough. Overall, the results are reassuring and his symptoms improved as well. He did have a COVID test which is currently pending. He was also evaluated by the neurology team if he feels worse or develops any new or additional symptoms of concern, please return right away. Otherwise, please follow-up with his primary care physician this week AttachmentsThe following attachments cannot be sent through Care Everywhere. Aphasia: General Info (Spanish)documented in this encounter Medications at Time of [...] Code Departure Means Destination Home or Self Snf documented in this encounter Consult Notes Pili Lam MD - 02/12/2022 1431 EDT Stroke Consult Note Service Date: 02/12/2022 Admit Date: 02/12/2022 14:13 Primary Care Provider: Griselda Gallardo MD:No ref. provider found Code Status: Full Code Palliative Care was not consulted because criteria not met. Chief Complaint: stroke code, aphasia, headache HPI Timbo Su is a 66 y.o. male with a PMHx of recent L MCA stroke (02/04/22), atrial fibrillation not on anticoagulation, T2DM, HLD, Parkinson's disease s/p DBS, and polyneuropathy s/b R foot drop. Hewas recently discharged from the stroke service on 02/10/22 after presenting with a left MCA stroke s/p EVT with complete reperfusion (TICI 3) on 02/04/22. He presents to the ED from acute rehab at [facility] with worsening aphasia and headache. LKN 13:00 on 02/12/22. Patient went to nap at 1300 and upon awakening his noted worsening of aphasia compared to recent baseline, as well as new 8/10 headache. Note that prior to lunch this afternoon patient had been fonud to have glucose of 67, which improved to 226 after food by the time of EMS arrival. Presented to ED where he was found to be afebrile and normotensive, BP 130/68. Labs significant for Hgb 13.0, WBC 7.8, SGL 202, creat 0.95, troponin negative. NIHSS 3 for disorientation (incorrect month), mild aphasia, mild dysarthria vs hypophonia. CT Head was without acute abnormality, re-demonstrated findings of known recent left MCA infarct. CTA Head/Neck showed no LVO. Not a candidate for tPA due to recent stroke. No thrombectomy indicated due to no LVO on CTA. At recent baseline (at acute rehab) patient ambulates with a walker with assistance and is dependentin most ADLs, mRS 4. Additional diagnosis on admission: Diabetes Encephalopathy (any cause) Review of Systems A ten point review of systems was performed and was negative except for pertinent positives noted inthe HPI Past Medical History reviewed. History reviewed. No pertinent surgical history. Social History Tobacco Use ??? Smoking status: Unknown If Ever Smoked ??? Smokeless tobacco: Never Used Substance Use Topics ??? Alcohol use: Not on file History reviewed. No pertinent family history. No current outpatient medications on file. No Known Allergies Objective Vitals Temp: [36.1 ??C (97 ??F)-36.9 ??C (98.4 ??F)] , Heart Rate: [61 BPM-88 BPM] , Pulse: [61-66] , Resp:[13-16] , BP: (119-139)/(68-95) , SpO2: [96 %-100 %] , Numeric Pain Level (Scale 1-10): 8 Weight: Body mass index is 28.42 kg/m??. Neurological Exam Mental Status & Language Awake and alert. Oriented to self, age, location; incorrect month Follows simple commands. Normal comprehension and attention. Mild expressive aphasia. Cranial Nerves Visual ward full to confrontation. PERRL. EOMI, no nystagmus. Conjugate gaze. No facial asymmetry Hearing grossly intact Mild dysarthria, moderate hypophonia Shoulder shrug symmetric Tongue protrusion midline Motor Mildly increased tone throughout, and normal bulk. RUE & LUE each sustain antigravity for 10 seconds without drift. RLE & LLE each sustain antigravity for 5 seconds without drift. 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 No extinguishing to touch. Cerebellar/Movement Function FTN and HTS intact bilaterally without dysmetria. Labs I have personally reviewed Recent Labs 02/12/22 1425 WBC 7.80 RBC 4.50 HGB 13.0* HCT 38.5* MCV 86 MCH 28.9 MCHC 33.8 PLT 198 NEUTROABS 4.78 Recent Labs 02/12/22 1425 NA 140 K 4.1 CL 103 CO2 29 BUN 18 CREATININE 0.95 CALCIUM 9.1 Recent Labs 02/12/22 1425 PROTIME 12.8* INR 1.1 PTT 33 Recent Labs 02/12/22 1425 TROPONINI <0.[address] ANGIO HEAD NECK Result Date: 02/12/2022 No evident acute intracranial abnormality; redemonstrated evolving left MCA territory infarct involving the posterior temporal lobe and parietal lobe on the left. No high-grade stenosis or occlusion ofthe major arterial vasculature of the head and neck. STENOSIS REFERENCE: MILD: < 50% MODERATE: 50-69% SEVERE: 70- 89% HAIRLINE/CRITICAL: 90-99% OCCLUDED: 100% I have personally reviewed the images and the above interpretation and agree with the findings. Assessment Timbo Su is a 66 y.o. male with a PMHx significant for recent L MCA stroke (02/04/22), atrial fibrillation not on anticoagulation, T2DM, HLD, Parkinson's disease s/p DBS, and polyneuropathy s/b R foot drop. He was recently discharged from the stroke service on 02/10/22 after presenting with a left MCA stroke s/p EVT with complete reperfusion (TICI 3) on 02/04/22. He presents to the ED from acute rehab at [facility] with worsening aphasia and headache. LKN 13:00 on 02/12/22. Patient went to nap at 1300 and upon awakening his noted worsening of aphasia compared to recent baseline, as well as new 8/10 headache. Note that prior to lunch this afternoon patient had been fonud to have glucose of 67, which improved to 226 after food by the time of EMS arrival. Presented to ED where he was found to be afebrile and normotensive, BP 130/68. Labs significant for Hgb 13.0, WBC 7.8, SGL 202, creat 0.95, troponin negative. NIHSS 3 for disorientation (incorrect month), mild aphasia, mild dysarthria vs hypophonia. CT Head was without acute abnormality, re-demonstrated findings of known recent left MCA infarct. CTA Head/Neck showed no LVO. Not a candidate for tPA due to recent stroke. No thrombectomy indicated due to no LVO on CTA. Most likely his current presentation represents recrudescence, particularly in the setting of recentL MCA infarct presenting with similar symptoms. Low suspicion for a new vascular event at this time.Recommend further toxic/metabolic/infectious workup per ED team to investigate for causes of recrudescence of stroke symptoms. Recommendations Worsening aphasia likely 2/2 recrudescence of stroke symptoms - no indication for further neurologic workup or neurology admission at this time - swallow screen: passed --> resume SHIRT CLOSER diet - toxic/metabloic/infectious workup per ED team - dispo per ED team Evaluated with chief resident Dr. Singh, and discussed with stroke attending Dr. Zarco over phone. Pili Lam MD Neurology resident 02/12/22 14:31 Additional Information for Stroke Stroke code: Last Known Well Time: 1300 Date: 02/12/22 [facility], NIHSS: NIHSS Criteria 02/12/2022 Test Interval Baseline Exam Date 02/12/2022 Exam Time 1420 LOC 0 LOC Questions 1 LOC Commands 0 Best Gaze 0 Visual 0 Facial Palsy 0 Left Arm, Motor 0 Right Arm, Motor 0 Left Leg, Motor 0 Right Leg, Motor 0 Limb Ataxia 0 Sensory 0 Best Language 1 Dysarthria 1 Extinction/Inatten. 0 Total Score 3 t-PA Decision: Endovascular intervention considered?: Yes Is this a TIA: No Is patient on telemetry?: Yes Arrhythmias noted while on telemetry: Atrial fibrillation Dysphagia screen prior to food/fluids/meds was performed per protocol. The patient passed swallow screen. Has the patient smoked at least one cigarette in the past year?: No Enrolled in a clinical research study?: No Personal Risk Factors: Hypertension, Afib/Aflutter, Hyperlipidemia/Dyslipidemia, Diabetes Treatment plan and/or risk/benefits of treatment/diagnostic work-up was fully discussed at bedside: Yes - Patient/Family in agreement with current plan Associated attestation - Farhan Zarco IV, MD - 02/13/2022 1120 EDT Discussed with neurology residents over the phone. Farhan Zarco Neurology attendingdocumented in this encounter ED Notes Richelle Tellez RN - 02/12/2022 1633 EDT Report called to [facility] RN. AVS reviewed with patient. All questions addressed. IV discontinuedwithout complication, vitally stable. belongings with patient. Instructed to follow up with primary care. Pattie del castillo RN - 02/12/2022 1435 EDT Samir Su, 55, @ rehab after L MCA stroke with aphasia, now worse, CT down @ [facility] TCALL: TIMBO SU KYLAH 55, REF BY [facility]EE AT [facility] FOR WORSENING EXPRESSIVE APHASIA, NEW 8/10 HEADACHE, RECENT STROKE 02/04/22 W/ L MCA OCCLUSION, R SIDED FLACCID, EXPRESSIVE APHASIA, INCONTINENCE SINCE STROKE, HX DM, BGL 158 S/P APPLE JUICE EARLIER, NEEDS CT SCAN (CJZ) Julián Raines MD MSc - 02/12/2022 1421 EDT This patient received an evaluation and medical screening exam for emergent medical conditions at the [facility] on 02/12/2022 Scribe attestation: This documentation is recorded by Ashvin Keys acting as Scribe under the direction and presence of Julián Pérez MD MSc. Julián Pérez MD MSc: I personally performed the services recorded by the scribe in my presence.I confirm the scribe's documentation has been reviewed by me to accurately and completely record my work, treatment, procedures, and medical decision making. HPI Timbo Su is a 66 y.o. male with PMH including acute CVA who presents to the ED for potential stroke. The patient is a currently at [facility] following a stroke that occurred on 02/04/22. Following his stroke, the patient exhibited right sided weakness and speech difficulties. Today, the patient was taking a nap when he woke up exhibiting increased word finding difficulty. He also endorsed an 8/10 headache. With EMS, the patient had a BG of 226, his pupils were equal, round, and reactive. His blood pressure was 153/70. His last known well was approximately one hour ago. History was provided by: EMS Patient's pertinent PMH, FH, SH were reviewed and updated PRN. ROS A 10-point review of systems was performed. The patient answered negative to all questions with the exceptions of those explicitly detailed as positives in the HPI. Pertinent negatives are also explicitly stated. Physical Exam Vital Signs Heart Rate: 82 BPM Resp: 16 SpO2: 97 % Pulse From Oximetry: 79 BPM BP: 126/78 BP MAP: 90 mm Hg Nursing notes and vital signs were reviewed. Constitutional: Well appearing in no acute distress Eyes: Pupils equal and reactive to light, no scleral icterus. Eyes track midline. Mouth: Moist oral mucosa without apparent lesions Neck: Full ROM, no cervical LAD Heart: RRR without MRG Lungs: Clear to auscultation Abdomen: Soft NT/ND, positive BS Skin: No overt rashes on exposed skin Extremities: Moving spontaneously, warm and well perfused. Neuro: Grossly neurologically intact. Speech pattern was slow, but there appeared to be no receptiveaphasia. Facial movements were normal, no significant pronator drift, swallowing function normal. Psych: No agitation or overt thought disorder Results Labs Reviewed COMPLETE BLOOD COUNT AND DIFFERENTIAL - Abnormal Result Value Status WBC 7.80 Final RBC 4.50 Final Hemoglobin 13.0 (*) Final HCT 38.5 (*) Final MCV 86 Final MCH 28.9 Final MCHC 33.8 Final RDW-CV 13.9 Final RDW-SD 43.0 Final PLT 198 Final MPV 11.1 Final Neutrophils 61.2 Final Lymphocytes 29.0 Final Monocytes 7.8 Final Eosinophils 1.3 Final Basophils 0.4 Final Immature Grans 0.3 Final Absolute Neutrophils 4.78 Final Absolute Lymphocytes 2.26 Final Absolute Monocytes 0.61 Final Absolute Eosinophils 0.10 Final Absolute Basophils 0.03 Final Absolute Immature Grans 0.02 Final Type of Differential: Auto Final BASIC METABOLIC PANEL (BMP) - Abnormal Sodium 140 Final Potassium 4.1 Final Chloride 103 Final CO2 Total 29 Final Anion Gap 8 Final Glucose 202 (*) Final Calcium 9.1 Final BUN 18 Final Creatinine 0.95 Final eGFR 88 Final PROTIME - Abnormal I.N.R. 1.1 Final Pro Time 12.8 (*) Final Narrative: Moderate Intensity Coumadin INR = 2.0-3.0 Adjustments in anticoagulant therapy dose should be based on the INR and NOT on the Protime. URINE CHEMICAL (DIP) & SEDIMENT (MICRO) WITH REFLEX TO CULTURE - Abnormal Color UA Yellow Final Clarity UA Clear Final Glucose UA 1+ (*) Final Bilirubin UA Negative Final Ketones UA Negative Final Specific [employer] [place], Urine 1.020 Final Blood UA Negative Final Urobilinogen UA Normal Final Nitrite UA Negative Final Leukocyte Esterase UA Negative Final Protein UA Negative Final pH, UA 5.5 Final Urine RBC Count, Auto 0 - 2 Final Urine WBC Count, Auto 0 - 3 Final Urine Squamous Count, Auto None Seen Final Urine Hyaline Cast Count, Auto <=10 Final Urine Bacteria Count, Auto None Seen Final Narrative: NOTE: Reflex to Urine Culture test is not indicated based on Urine Sediment Analysis results. Urine Sediment Analysis results are unreliable on urines that are unrefrigerated for >2 hrs or refrigerated >8 hrs. POCT GLUCOSE, INTERFACED - Abnormal Glucose, POC 171 (*) Final HN LAB POC COMMENT (GLUCOSE) Test Performed by Nursing Services Final PTT - Normal PTT 33 Final TROPONIN I - Normal Troponin I (ng/mL) <0.034 Final Narrative: The results of this assay can be falsely lowered due to the consumption of Biotin. COVID-19 TESTING BLOOD BANK HOLD Hold BB Spec will exp at 23:59, 3 days from collect date Final Imaging Results XR CHEST 2 VIEWS (In process) CT ANGIO HEAD NECK (Preliminary result) Result time 02/12/22 15:42:12 Preliminary result Impression: CT head: No acute intracranial abnormality. CTA head and neck: No significant stenosis, aneurysm, or dissection identified. STENOSIS REFERENCE: MILD: < 50% MODERATE: 50-69% SEVERE: 70-89% HAIRLINE/CRITICAL: 90-99% OCCLUDED: 100% Narrative: PRELIMINARY RESIDENT REPORT EXAMS: CT HEAD WO CONTRAST CT ANGIOGRAM HEAD AND NECK WITH CONTRAST HISTORY: Neuro deficit, acute, stroke suspected TECHNIQUE: CT of the head without contrast. CT angiogram of the head and neck with intravenous contrast. Maximal intensity projected reformatted images were obtained, adjusted on an independent workstation, and reviewed prior to interpretation. Structured report code: [id number] COMPARISON: CT head 02/05/2022 FINDINGS: CT HEAD: PARENCHYMA: No evidence of acute infarction. Redemonstrated hypodensities present in the left insula and adjacent temporal lobe, and separately within the posterior left temporal lobe and adjacent parietal lobe, compatible with evolving infarct. No acute parenchymal hemorrhage. No mass or midline shift. Hypodensities in the supratentorial white matter, non-specific, but likely representing chronic microangiopathic changes. Mild diffuse parenchymal volume loss. Stable positioning of bilateral deep brain stimulator leads EXTRA-AXIAL SPACES: No acute extra-axial hemorrhage. No extra-axial mass. VENTRICULAR SYSTEM: No acute intraventricular hemorrhage. No obstructive hydrocephalus. BONES: No concerning bone lesions. No evidence of fracture. ORBITS: No significant abnormality. PARANASAL SINUSES/MASTOID AIR CELLS: Predominantly. Clear. EXTRACRANIAL SOFT TISSUES: Unremarkable. CTA HEAD: ARTERIES: The intracranial internal carotid arteries, anterior cerebral arteries, middle cerebral arteries, and posterior cerebral arteries are patent, without severe stenosis or occlusion. The intradural vertebral arteries and basilar artery are patent, without severe stenosis or occlusion. The proximal segments of the PICA, AICA, and SCA are patent. No aneurysms or vascular malformations. VEINS: While evaluation of the veins is limited on arterial phase imaging, there is no evidence of dural venous sinus thrombosis. CTA NECK: ARTERIES: There is a three-vessel, left-sided aortic arch. The brachiocephalic and subclavian arteries are patent with no stenosis. The common carotid arteries are patent with no stenosis. There is mild calcific and soft tissue atherosclerosis bilateral carotid bulbs. The internal carotid arteries are patent with no stenosis. The vertebral arteries are patent with no stenosis. VEINS: While evaluation of the veins is limited on arterial phase imaging, there is no evidence of venous thrombosis. NON-ANGIOGRAPHIC NECK FINDINGS: Bones: No fractures or concerning bone lesions. Cervical Soft Tissues: Unremarkable. Lung Apices: Slightly degraded secondary to motion however no significant abnormality identified. Data Interpretation An EKG was obtained and independently interpreted: AFIB, rate of 82 bpm, normal axis and intervals, no ST elevations. Imaging obtained was reviewed and independently interpreted: CT angio head and neck: No significant hemorrhagic conversion or reocclusion of a large vessel. Laboratory results independently reviewed, significant for: troponin negative Procedures Procedures Medical Decision Making/ED Course A medical screening exam was performed. In summary, the patient is a 66-year-old man who experienced a left MCA ischemic stroke 1 week ago treated with mechanical thrombectomy who has residual right- sided weakness and speech difficulty, but was found to have worsening speech difficulty of acute onset approximately 1 hour prior to arrival. He was initially triaged to urgent care and then transferred here as a stroke alert. On arrival, he does have slurred speech and some expressive aphasia, but this is improving from what was reported by EMS. He also reported a significant headache which is of new onset. On exam, he was awake, alert, witheyes that did track across midline. Speech pattern was slow, but there appeared to be no receptive aphasia. Facial movements were normal, there was no significant pronator drift, swallowing function was normal, heart rate was regular and without murmur, breath sounds are symmetric and lungs clear to auscultation and I appreciated no significant abdominal tenderness. Neurology reported a nonfocal initial exam and he underwent a CT/CTA without significant hemorrhagic conversion or reocclusion of a large vessel. Preliminary diagnosis is likely recrudescence. We are awaiting labs and urinalysis and final neurology input. 1509: Patient reassessed and speech is back to its poststroke baseline and is improved per his .He denies dysuria, but does report a new cough, raising some concern for potential aspiration or pneumonia. We will obtain an x-ray as well as a COVID swab. CXR reassuring Clinical Impression Final diagnoses: None Pain Management Any further pain treatment will be at the discretion of the provider following up with the patient based on their clinical assessment. Condition at departure from the Emergency Department: Good Following departure from our facility, any remaining pain can with all likelihood be managed by the patient using prescribed non-opioid medication, OTC analgesics, or non-pharmacological agents such heat or ice packs. The patient was advised to follow-up with his/her primary care provider if additional or prolonged pain management is needed. If the pain worsens, the patient is instructed to return for re-evaluation. Disposition Disposition decisions were made weighing risks and benefits of hospitalization vs. outpatient treatment, the risk for further decompensation, and the patient???s wishes. - If discharged: the patient was stable, improved, or requested discharge. Prior to discharge my usual and customary return precautions were reviewed with the patient and/or family. This included follow-up instructions and reasons to return to the Emergency Department if condition worsens, does not improve as expected, or other new concerns arise. - If admitted: the patient???s condition was severe enough to require additional inpatient evaluation and treatment, or the patient was at risk of sudden decompensation. documented in this encounter Plan of Treatment Pending Results Name Type Priority Associated Diagnoses Date/Ti me EKG 12-LEAD ECG STAT 02/12/2022 14:5 4 EDT documented as of this encounter Procedures Procedure Name Priority Date/Time Associated Diagnosis Comme nts COVID-19 TEST [facility] Today 02/12/2022 15:48 LAB [...] to fol low after physician interpretation. 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 documented in this encounter Results COVID-19 TEST [facility] PCR (02/12/2022 15:48 EDT) Specimen Swab - Entire nasopharynx (body structur e) Performing Organization Address City/State/ZIP Code Phon e Number [facility] [address] [place] [address] SERVICES COVID-19 TESTING (02/12/2022 15:48 EDT) COVID-19 rt-PCR Negative Negative [facility] Result Comment: [facility] This [...] and epidemiological informatio n. Performed on the [email or web address] Fusion instrument Performing Lab [place] [facility] SERVICES Specimen Swab - Entire nasopharynx (body structur e) Performing Organization Address City/State/ZIP Code Phon e Number [facility] [address] [place] [address] SERVICES XR CHEST 2 VIEWS (02/12/2022 15:22 EDT) Anatomical Region Laterality Modality Computed Radiography Specimen Impressions [facility] - 02/12/2022 16:03 EDT 1. ??No acute cardiopulmonary disease. Narrative [facility] - 02/12/2022 16:03 [...] No acute cardiopulmonary disease. Performing Organization Address City/[facility]/ZIP Code Phon e Number [facility] (ABNORMAL) URINE CHEMICAL (DIP) & SEDIMENT (MICRO) WITH REFLEX TO CULTURE (02/12/2022 14:43 EDT) Color UA Yellow Colorless, Yellow [facility] Clarity UA Clear Clear [facility] Glucose UA 1+ (A) Negative [facility] Bilirubin UA Negative Negative [facility] Ketones UA Negative Negative [facility] Specific [employer], 1.020 1.001 - 1.035 [facility] Urine LABORATORY SERVICES Blood UA Negative Negative [facility] Urobilinogen UA Normal Normal mg/dL [facility] Nitrite UA Negative Negative [facility] Leukocyte Esterase UA Negative Negative [facility] Protein UA Negative Negative [facility] pH, UA 5.5 4.6 - 8.0 [facility] Urine RBC Count, Auto 0 - 2 0 - 2 Cells/HPF [facility] Urine WBC Count, Auto 0 - 3 0 - 3 Cells/HPF [facility] Urine Squamous Count, None Seen None Seen [facility] Auto Cells/HPF LABORATORY SERVICES Urine Hyaline Cast <=10 <=10 Casts/LPF [facility] Count, Auto LABORATORY SERVICES Urine Bacteria Count, None Seen None Seen [facility] Auto Bacteria/HPF [facility] SERVICES Specimen Urine - Urine specimen collection, clean catch (procedure) Narrative [facility] - 02/12/2022 15:03 EDT NOTE: Reflex to Urine Culture test is not aung cated based on Urine Sediment Analysis results. Urine Sediment Analysis results are unre liable on urines that are unrefrigerated for >2 hrs or refrigerated >8 hrs. Performing Organization Address City/[facility]/ZIP Code Phon e Number [facility] [address] [place] [address] ANGIO HEAD NECK (02/12/2022 14:37 EDT) Anatomical Region Laterality Modality Head and Neck Computed Tomography Specimen Impressions [facility] - 02/12/2022 17:24 EDT No evident [...] interpretation and agree with the findings. Narrative [facility] - 02/12/2022 17:24 [...] agree with the findings. Performing Organization Address [facility] Phon e Number [facility] BLOOD BANK HOLD (02/12/2022 14:26 EDT) [facility] Hold BB Spec will exp at [facility] 23:59, 3 days from BLOOD BANK collect date Specimen Blood - Venous blood (substance) Performing Organization Address [facility] e Number [facility] [address] [place] [address] TROPONIN I (02/12/2022 14:25 EDT) [facility] Troponin I (ng/mL) <0.034 <0.034 ng/mL [facility] Specimen Blood - Venous blood (substance) Narrative [facility] - 02/12/2022 15:01 EDT The results of this assay can be falsely lowered due to the consumption of Biotin. Performing Organization Address [facility] Code Phon e Number [facility] [address] [place] [address] SERVICES PTT (02/12/2022 14:25 EDT) [facility] PTT 33 26 - 37 secs [facility] Specimen Blood - Venous blood (substance) Performing Organization Address [facility] Phon e Number [facility] [address] [place] [address] SERVICES (ABNORMAL) PROTIME (02/12/2022 14:25 EDT) [facility] I.N.R. 1.1 0.9 - 1.1 Ratio [facility] Pro Time 12.8 (H) 10.4 - 12.6 secs [facility] Specimen Blood - Venous blood (substance) Narrative [facility] - 02/12/2022 14:46 EDT Moderate Intensity Coumadin INR = 2.0-3.0 Adjustments in anticoagulant therapy dos e should be based on the INR and NOT on the Protime. Performing Organization Address [facility] Phon e Number [facility] [address] [place] [address] SERVICES (ABNORMAL) BASIC METABOLIC PANEL (BMP) (02/12/2022 14:25 EDT) Pathologist Sig nature Sodium 140 136 - 145 mmol/L [facility] Potassium 4.1 3.5 - 5.0 mmol/L [facility] Chloride 103 96 - 110 mmol/L [facility] CO2 Total 29 22 - 32 mmol/L [facility] Anion Gap 8 5 - 14 [facility] Glucose 202 (H) 70 - 100 mg/dL [facility] Calcium 9.1 8.5 - 10.5 mg/dL [facility] BUN 18 10 - 26 mg/dL [facility] Creatinine 0.95 0.66 - 1.25 mg/dL [facility] eGFR 88 >60 mL/min/1.73m2 [facility] Specimen Blood - Venous blood (substance) Performing Organization Address [facility] Phon e Number [facility] [address] [place] [address] SERVICES (ABNORMAL) COMPLETE BLOOD COUNT AND DIFFERENTIAL (02/12/2022 14:25 EDT) WBC 7.80 4.00 - 10.40 [facility] K/m LABORATORY SERVICES RBC 4.50 4.36 - 5.78 [facility] M/[facility]OR[facility] SERVICES Hemoglobin 13.0 (L) 13.8 - 17.3 [facility] gm/dL LABORATORY SERVICES HCT 38.5 (L) 39.5 - 50.2 % [facility] MCV 86 81 - 95 fl [facility] MCH 28.9 27.6 - 33.0 pg [facility] MCHC 33.8 32.8 - 36.4 [facility] gm/dL LABORATORY SERVICES RDW-CV 13.9 <14.2 % [facility] RDW-SD 43.0 <46.0 fl [facility] PLT 198 141 - 377 K/[facility] LABORATORY SERVICES MPV 11.1 9.5 - 12.7 fl [facility] Neutrophils 61.2 % [facility] Lymphocytes 29.0 % [facility] Monocytes 7.8 % [facility] Eosinophils 1.3 % [facility] Basophils 0.4 % [facility] Immature Grans 0.3 % [facility] Absolute Neutrophils 4.78 2.20 - 8.85 [facility]ATORY SERVICES Absolute Lymphocytes 2.26 1.09 - 3.30 [facility]ORY SERVICES Absolute Monocytes 0.61 0.10 - 0.80 [facility] SERVICES Absolute Eosinophils 0.10 0.03 - 0.61 [facility]ORY SERVICES Absolute Basophils 0.03 0.01 - 0.11 [facility] SERVICES Absolute Immature 0.02 0.00 - 0.06 [facility]ORY SERVICES Type of Differential: Auto [facility] Specimen Blood - Venous blood (substance) Performing Organization Address City/State/ZIP Code Phon e Number [facility] [address] [place] [address] SERVICES (ABNORMAL) POCT GLUCOSE, INTERFACED (02/12/2022 14:20 EDT) Glucose, POC 171 (H) 70 - 100 [facility] mg/dL LABORATORY SERVICES HN LAB POC COMMENT Test Performed by [facility] (GLUCOSE) Nursing Services LABORATORY SERVICES Specimen Blood - Capillary blood (substance) Performing Organization Address City/State/ZIP Code Phon e Number [facility] [address] [place] [address] SERVICES documented in this encounter Visit Diagnoses Diagnosis 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 Scheduled Medication Order 02/10/2022 02/11/2022 02/12/2022 iohexoL (OMNIPAQUE 350) solution 100 mL (COMPLETED) 1437 (Given - Provider: Katarzyna Hamilton) 100 mL, intravenous, Once in imaging, 1 dose, Starting on Sat02/12/22 at 1430, Until Sat02/12/22 at 1437, Routine, Imaging Protocol Orders documented in this encounter Orders Medications Ordered That Might Not Have Count Last Ord ered Date First Ordered Date Been Administered iohexoL (OMNIPAQUE 350) solution 100 mL 1 02/13/20 lactated ringers BOLUS 1,000 mL 1 02/12/2022 documented in this encounter Care Teams Retail Customer Service Representative Relationship Specialty Start Date End Date Griselda Stanley MD PCP - General 06/06/12 [address] [place] [address] documented as of this encounter
--- OUTSIDE RECORDS SUMMARY | 2022-02-26 04:08 | XMS_ITS | Encounter Summary ---
:1955 Author Organization [facility] Address [address] [place] [address] Care Team Providers Name Role Phone Griselda Stanley MD Primary Care Provider Encounter Details Date Type Department Care Team Description 02/12/2022 Travel Social History Tobacco Use Types Packs/Day Years Used Date Unknown If Ever Smoked Smokeless Tobacco: Never Used Sex Assigned at Date Recorded Not on file COVID-19 Exposure Response Date Recorded In the last 10 days, have you been in contact with No / Unsu re 02/12/2022 14:55 EDT someone who was confirmed or suspected to have Coronavirus/COVID-19? documented as of this encounter Functional Status Functional Status Response [...] or older) documented as of this encounter Plan of Treatment Not on filedocumented as of this encounter Visit Diagnoses Not on filedocumented in this encounter Care Teams Forensic Pathologist Relationship Specialty Start Date End Date Griselda Stanley MD PCP - General 06/06/12 [address] [place] [address] documented as of this encounter
--- OUTSIDE RECORDS SUMMARY | 2022-02-26 04:08 | XMS_ITS | Encounter Summary ---
:1955 Author Organization [facility] Address [address] [place] [address] Care Team Providers Name Role Phone Griselda Stanley MD Primary Care Provider Encounter Details Date Type Department Care Team Description 02/04/2022 Orders Only [facility] Interventional Mery De Jesus, waistline joiner overlock [address] [place], [place] [id number] Social History Tobacco Use Types Packs/Day Years [...] on filedocumented in this encounter Care Teams Escrow Secretary Relationship Specialty Start Date End Date Griselda Stanley MD PCP - General 06/06/[address] [place] [address],[facility] [address] [place] [address] documented as of this encounter
[2022-02-26 04:14] VITALS: BP 154/81; PULSE 60; RESP 16; TEMP 36.9; O2SAT 100
[2022-02-26 04:18] VITALS: BP 154/81; PULSE 60; RESP 16; TEMP 36.9; O2SAT 100
[2022-02-26] MEDS: LORazepam 1 MG TAB PO (04:51)
[2022-02-26 08:33] LABS: Abs Immature Grans 0.02 10^3/uL (0.0-0.06); Absolute Basophil Count 0.03 10^3/uL (0.0-0.2); Absolute Eosinophil Count 0.05 10^3/uL (0.0-0.7); Absolute Lymphocyte Count 3.17 10^3/uL (1.2-3.4); Absolute Monocyte Count 0.59 10^3/uL (0.1-0.8); Basophils % 0.4; Eosinophils % 0.6; HCT 37.1 % (40.0-50.0); HGB 12.9 g/dL (13.5-17.5); Immature Grans % 0.2; MCH 29.4 pg (27.0-33.0); MCHC 34.8 % (32.0-36.0); MCV 85 fL (80-95); MPV 11.4 fL (8.0-11.0); Monocytes % 6.9; Neutrophils % 54.9; Platelet Count 148 10^3/uL (130-400); RBC 4.39 10^6/uL (4.36-5.78); RDW 13.6 % (11.8-14.1); RDW-SD 42.4 fL; WBC 8.56 10^3/uL (4.4-10.8)
[2022-02-26 08:46] LABS: Anion Gap 10.9 mmol/L (3-11); BUN 15 mg/dL (7-18); CO2 28.1 mmol/L (21.0-32.0); Calcium 9.1 mg/dL (8.5-10.1); Chloride 103 mmol/L (98-107); Glucose 155 mg/dL (74-106); Magnesium 1.7 mg/dL (1.8-2.4); Potassium 3.7 mmol/L (3.5-5.1); Sodium 142 mmol/L (136-145)
[2022-02-26 08:50] VITALS: BP 161/80; PULSE 71; RESP 18; TEMP 36.8; O2SAT 99
[2022-02-26] MEDS: Aspirin 81 MG CHEW PO (08:59)
[2022-02-26 09:13] LABS: Procalcitonin < 0.1 ng/mL
--- NOTE | 2022-02-26 09:13 | IN_ITS ---
Date of service: 02/26/22 Time of Service: 09:13 PT Notes Visit Reasons: Agitation Physical Therapy Inpatient Initial Evaluation Date: 02/26/2022 Referring Doctor: Mary Orosco MD PT Orders: PT CONSULT: Limited ability Precautions: Fall. Standard. WBAT on the R LE with AD. AFO on the R when OOB. Patient Profile/Admitting Diagnosis: Mj is a 66-year-old male with Parkinson's disease and accumulated CVA burden from episodes in January and February of this year who presented to the ED on today due to increased agitation and threatening behavior towards and with reporting not being unable to take care of patient. Patient is diagnosed to have agitation due to dementia with admission recommended for observation and psych evaluation. PT referral has also been requested to assess for safety of mobility performnance and fall risk. PMHX: All Active Problems? Agitation due to dementia (Acute) Medical History? Diabetes Hypertension Parkinson disease Surgical History? ankle fx Cholecystectomy Social History/Home Situation: Lives with in a priavte home with 4 steps to enter and rail on one side. Equipment Owned/DME: 4WW, wheelchair, bedside commode Subjective: Pleasant and cooperative. Agreeable to PT consult. Denies headache, chest pain, and dizziness throughout. States that he recenlt just got discharged from a facility in [place] where PT had been working with him. Objective: General Observation: Seated on chair. AFO on R LE. Some slurring of speech noted. No agitation seen. Some facial asymmetry observed. Mental Status: Alert and oriented as to personand place. Able to follow single- step commands. Able to pay attention, focus, and respond appropriately. Pain: Denies ROM: Right Upper Extremity: Shoulder Flexion WFL. Shoulder abduction WFL. Elbow flexion WFL. Wrist flexion WFL. Functional opening and closing of hand WFL. Left Upper Extremity: Shoulder Flexion WFL. Shoulder abduction WFL. Elbow flexion WFL. Wrist flexion WFL. Functional opening and closing of hand WFL. Right Lower Extremity: Hip flexion WFL. Hip abduction WFL. Knee flexion WFL. Ankle dorsiflexion absent. Ankle plantarflexion WFL. Left Lower Extremity: Hip flexion WFL. Hip abduction WFL. Knee flexion WFL. A nkle dorsiflexion to neutral only. Ankle plantarflexion WFL. Strength: Right Upper Extremity: Shoulder flexors 4-/5. Shoulder abductors 4-/5. Elbow flexors 4-/5. Elbow extensors 4-/5. Field Return Repairer weaker slightly than on the L. Left Upper Extremity: Shoulder flexors 4/5. Shoulder abductors 4/5. Elbow flexors 4/5. Elbow extensors 4/5. Field Return Repairer strong. Right Lower Extremity: Hip flexors 4-/5. Hip abductors 4-/5. Knee flexors 4-/5. Knee extensors 4-/5. Ankle dorsiflexors 1/5. Ankle plantarflexors 4-/5. Left Lower Extremity: Hip flexors 4/5. Hip abductors 4/5. Knee flexors 4/5. Knee extensors 4/5. Ankle dorsiflexors 3-/5. Ankle plantarflexors 5/5. Bed Mobility/Transfers: Sit to stand minimal assist Stand to sit moderate assist Gait: Instructed patient with level surface ambulation of 200 feet requiring contact guard assist with wheelchair follow for safety. Mary Lou decreased. R Step height decreased. R Step length decreased. Step-to gait pattern. Had a short-lived freezing episode which posed a difficulty with sitting down from standing after the walk which required moderate assist to buffer quick descent. Balance: Static Sitting: Normal Dynamic Sitting: Good Static Standing: Fair Dynamic Standing: Fair Special Tests: Mobility Limitations Standardized [facility] clicks Basic Mobility Inpatient Short Form: Raw Score: 17 CMS Score: 51% deficit Informed Consent/Education: Patient was instructed in purpose of PT consult and plan of care. Agreeable to proceed with established PT POC to achieve personal goals. Assessment: Patient requires assist of 1 for today's evaluation using FWW. Patient presents with clinical signs and symptoms consistent with current/admitting diagnoses that have resulted to mobility limitations, gait instability, generalized weakness, and overall ADL decline as demonstrated by the following impairment level findings: 1. Decreased strength to R UE/LE major muscle groups 2. Impaired sitting/standing balance 3. Impaired activity tolerance 4. Limitation of joint range of motion in R ankle (chronic, has AFO on R) 5. Shortness of breath 6. Swelling Impairments are contributing to the following functional limitations: 1. Decline in transfer skills 2. Difficulty with ambulation without assistive device and physical assistance 3. Increased completion time for mobility ADL performance 4. Increased risk for falls 5. Difficulty with managing steps alone safely [place] [address] moderate complexity based on the following: History: 66-year-old male with past medical history as indicated above Examination: Demonstrable impairment in strength, balance, and mobility level with underlying impairments and functional limitations as exhibited above as well as deficit score of 51% utilizing the [facility] Mobility Inpatient Short Form Presentation: Evolving Decision Makin moderate complexity Goals: Goals X1 week 1. Supine-Sit independent 2. Sit-Supine independent 3. Sit-Stand supervision 4. Stand-Sit supervision with FWW 5. Bed-Chair supervision with FWW 6. Chair-Bed supervision with FWW 7. Supervision with gait on level surface with use of FWW for at least 300 feet without report of pain nor dyspnea 8. Independent stair negotiation while holding onto 1 rails for at least 4 steps without report of pain nor dyspnea 9. Good static and dynamic standing balance/tolerance Plan of Care/Treatment Plan: 1-2x/day, 7 days/week x 1 week. Plan of care has been reviewed with the SCRATCH BRUSHER providing the service under Physical Therapy direction. Initiate Physical Therapy intervention for pain management as needed, strengthening, bed mobility, transfers, gait, stairs, balance training, and use of assistive device. DISCHARGE RECOMMENDATIONS: [] Home with no services [] [] Home with services [specify] [] Home with outpatient PT [] [] SNF for continued rehabilitation [] [] [facility] [] [] SNF versus LTC based on ability to participate and progress [] [X] Other: SNF vs. PT depending on level of assist he will be getting home from TREATMENT CODE/TIME: 29384 x 20 minutes beginning at 9:13 AM. Thank you for the opportunity to participate in the care of this patient. Claudia Stewart PT, DPT, CLT [facility] [place], [place]
[2022-02-26] MEDS: MAGNESIUM SULFATE 2 GM/50 ML BAG IVPB (10:16)
--- NOTE | 2022-02-26 10:34 | W.PM.PROGNOT ---
Date of Service Date of service: 02/26/22 Time of Service: 10:34 Subjective Subjective Interval history since last seen: Mr Su has been refusing some of his medications, but has not had any behavioral outbursts since arrival to the hospital. The patient denies pain, dizziness, shortness of breath, nausea. He knows he is in the hospital, but does not know the date. I have consulted neurology and palliative care for him. I have requested that his outpatient medication list be updated. Objective Last Vital Signs Temp 36.8 C 02/26/22 08:50 Pulse 71 02/26/22 08:50 Resp 18 02/26/22 08:50 BP 161/80 H 02/26/22 08:50 Pulse Ox 99 02/26/22 08:50 Laboratory Results - last 24 hr 02/25/22 02/25/22 02/25/22 23:15 23:30 23:30 WBC RBC Hgb Hct MCV MCH MCHC RDW Plt Count MPV Immature Gran % Neutrophils % Lymphocytes % Monocytes % Eosinophils % Basophils % Nucleated RBC % Absolute Neutrophils Absolute Lymphocytes Absolute Monocytes Absolute Eosinophils Absolute Basophils Sodium 140 Potassium 3.7 Chloride 104 Carbon Dioxide 26.3 Anion Gap 9.7 BUN 16 Creatinine 1.0 Estimated GFR/1.73 m2 >= 60.00 Glucose 143 H Calcium 9.5 Magnesium Total Bilirubin 1.1 H AST 22 ALT 46 Alkaline Phosphatase 99 Ammonia < 10 L Total Protein 7.4 Albumin 4.5 Procalcitonin TSH 3.56 Urine Color Urine Clarity Urine pH Ur Specific [place] Urine Protein Urine Ketones Urine Blood Urine Nitrite Urine Bilirubin Urine Urobilinogen Ur Leukocyte Esterase Urine Glucose Salicylates Acetaminophen Ethyl Alcohol < 3.0 COVID-19 Source Nasal/Nares SARS-CoV-2 (PCR) Negative 02/25/22 02/25/22 02/26/22 23:30 23:30 02:36 WBC 11.08 H RBC 4.34 L Hgb 12.6 L Hct 37.6 L MCV 87 MCH 29.0 MCHC 33.5 RDW 13.5 Plt Count 149 MPV 11.8 H Immature Gran % 0.2 Neutrophils % 59.0 Lymphocytes % 32.6 Monocytes % 7.4 Eosinophils % 0.5 Basophils % 0.3 Nucleated RBC % 0.0 Absolute Neutrophils 6.54 Absolute Lymphocytes 3.61 H Absolute Monocytes 0.82 H Absolute Eosinophils 0.06 Absolute Basophils 0.03 Sodium Potassium Chloride Carbon Dioxide Anion Gap BUN Creatinine Estimated GFR/1.73 m2 Glucose Calcium Magnesium Total Bilirubin AST ALT Alkaline Phosphatase Ammonia Total Protein Albumin Procalcitonin TSH Urine Color Yellow Urine Clarity Clear Urine pH 5.5 Ur Specific [place] 1.025 Urine Protein Negative Urine Ketones Negative Urine Blood Negative Urine Nitrite Negative Urine Bilirubin Negative Urine Urobilinogen 0.2 Ur Leukocyte Esterase Negative Urine Glucose Negative Salicylates 4.8 Acetaminophen < 2 Ethyl Alcohol COVID-19 Source SARS-CoV-2 (PCR) 02/26/22 02/26/22 02/26/22 08:20 08:20 08:20 WBC 8.56 RBC 4.39 Hgb 12.9 L Hct 37.1 L MCV 85 MCH 29.4 MCHC 34.8 RDW 13.6 Plt Count 148 MPV 11.4 H Immature Gran % 0.2 Neutrophils % 54.9 Lymphocytes % 37.0 Monocytes % 6.9 Eosinophils % 0.6 Basophils % 0.4 Nucleated RBC % 0.0 Absolute Neutrophils 4.70 Absolute Lymphocytes 3.17 Absolute Monocytes 0.59 Absolute Eosinophils 0.05 Absolute Basophils 0.03 Sodium 142 Potassium 3.7 Chloride 103 Carbon Dioxide 28.1 Anion Gap 10.9 BUN 15 Creatinine 1.0 Estimated GFR/1.73 m2 >= 60.00 Glucose 155 H Calcium 9.1 Magnesium 1.7 L Total Bilirubin AST ALT Alkaline Phosphatase Ammonia Total Protein Albumin Procalcitonin < 0.1 TSH Urine Color Urine Clarity Urine pH Ur Specific [place] Urine Protein Urine Ketones Urine Blood Urine Nitrite Urine Bilirubin Urine Urobilinogen Ur Leukocyte Esterase Urine Glucose Salicylates Acetaminophen Ethyl Alcohol COVID-19 Source SARS-CoV-2 (PCR)
--- NOTE | 2022-02-26 12:35 | INITIAL_ITS ---
- If Service Date Differs Date of service: 02/26/22 Time of Service: 12:36 Care Management Initial Assess REASON FOR HOSPITALIZATION:: agitation PAST MEDICAL HISTORY/PAST SURGICAL HISTORY:: All Active Problems. Agitation due to dementia (Acute). Medical History. Diabetes. Hypertension. Parkinson disease. Surgical History. ankle fx. Cholecystectomy PREVIOUS FUNCTIONAL STATUS/SOCIAL/FAMILY SUPPORTS:: Timbo lives with his , Ana Lilia in [place], [place]. They have one adult son who lives in [place]. He has been out of work for about ten years, due to his parkinsons. His is his primary caregiver, and although she works time signal wirer, she works from home. Marcell has been independent with mobility, and Ana Lilia assists with his ADL's. CURRENT FUNCTIONAL STATUS:: KULWINDER met with Ana Lilia, Marcell's , who described the events of the last few days at home. She stated that he was discharged from [facility] (acute rehab) on 02/22/22, and that he was doing well on that day. She stated that he was concerned about his declining mental status while at rehab, as she stated that his worse fear is being put away. She reported that he became increasingly paranoid over the next three days, and made suicidal and homicidal statements. Her brother in law assisted when he became aggressive, and eventually she called 911. He was brought to the ED for emergency evaluation, and in the ED the provider stated that he is not medically cleared, and that this could be a medical process, rather than mental health, therefore the EE was not completed. Ana Lilia expressed that she is hoping to have his mental health addressed, as he has had increased depression since being diagnosed with Parkinsons. KULWINDER explained that there is a Neuro consult, as well as a Palliative consult, which will likely happen tomorrow. She would like to be present for these, if possible. KULWINDER and Ana Lilia met with Marcell together, who stated that he is agreeable to meeting with Neuro, palliative, and to discuss his mental health needs further. He is agreeable to a referral being sent to [facility], if indicated. CM will continue to follow. ADVANCE DIRECTIVES:: Not on file. Has patient been provided with info about the portal/API?: Yes Did the patient sign up for the portal?: No CODE STATUS:: Full Code INSURANCE COVERAGE / FINANCIAL ISSUES:: [facility]/ [facility] CURRENT HOME/COMMUNITY SERVICES/EQUIPMENT:: No current services. PRIMARY CARE PHYSICIAN:: Griselda Stanley POTENTIAL DISCHARGE NEEDS:: Evaluations for further needs, follow up appointments. PATIENT/FAMILY EDUCATION NEEDS:: Review discharge instructions and limitations, discussion of self care needs including ask me three. ANTICIPATED BARRIERS TO DISCHARGE:: Per report, has been having increased difficulty caring for him at home. TRANSPORTATION:: To be determined by disposition. PLAN:: Marcell will meet with Neuro and Palliative care tomorrow, as well as [facility] to discuss mental health needs. He will return home with additional support vs transition to inpatient psychiatric treatment, if indicated. He is agreeable to a referral being sent to [facility]. He will follow up with his PCP and discharge plan of care. CM will continue to follow.
[2022-02-26] MEDS: Acetaminophen 325 MG TAB 650 MG PO (15:34)
[2022-02-26 16:13] VITALS: BP 163/80; PULSE 78; RESP 18; TEMP 36.6; O2SAT 95
--- NOTE | 2022-02-26 16:24 | PT.INTREAT ---
Date of service: 02/26/22 Time of Service: 15:58 PT Notes Visit Reasons: Agitation Inpatient Physical Therapy Treatment Note [facility] Date: 02/26/2022 PRECAUTIONS: Activity as tolerated, fall, dementia SUBJECTIVE: Timbo (Óscar) agreeable to participating in PT. OBJECTIVE: PAIN: No c/o pain BED MOBILITY/TRANSFERS Sit-stand: Min A x2 Stand-sit: Min A GAIT Assistive Device: FWW Weight bearing: Full Assist: CGA Distance: 100' Deviation: Slow pacing, cueing for large amplitude movements, instructed patient to pause and resume walking to initiate large amplitude movements. TOILETING: Patient toileted with assist ASSESSMENT: Patient tolerated session well. Patient was able to tolerate gait training with use of FWW and with CGA. He requires cueing and instruction for large amplitude movements for safety. PLAN: Continue with global strengthening and general conditioning for continued progression toward baseline level of function. TREATMENT CODE/TIME: 25 minutes; [id number] x2 (15:58)
[2022-02-26 22:31] VITALS: BP 135/79; PULSE 71; RESP 17; TEMP 36.6; O2SAT 95
[2022-02-27 06:36] LABS: Abs Immature Grans 0.03 10^3/uL (0.0-0.06); Absolute Basophil Count 0.03 10^3/uL (0.0-0.2); Absolute Eosinophil Count 0.08 10^3/uL (0.0-0.7); Absolute Lymphocyte Count 2.97 10^3/uL (1.2-3.4); Absolute Monocyte Count 0.66 10^3/uL (0.1-0.8); Absolute Neutrophil Count 4.88 10^3/uL (1.2-6.7); Basophils % 0.3; Eosinophils % 0.9; HCT 37.2 % (40.0-50.0); HGB 12.4 g/dL (13.5-17.5); Immature Grans % 0.3; Lymphocytes % 34.3; MCHC 33.3 % (32.0-36.0); MCV 87 fL (80-95); Monocytes % 7.6; Neutrophils % 56.6; Platelet Count 139 10^3/uL (130-400); RBC 4.28 10^6/uL (4.36-5.78); RDW 13.9 % (11.8-14.1); RDW-SD 43.5 fL; WBC 8.65 10^3/uL (4.4-10.8)
[2022-02-27 06:50] LABS: Anion Gap 11.3 mmol/L (3-11); BUN 15 mg/dL (7-18); CO2 26.7 mmol/L (21.0-32.0); Calcium 9.3 mg/dL (8.5-10.1); Chloride 107 mmol/L (98-107); Glucose 165 mg/dL (74-106); Potassium 3.8 mmol/L (3.5-5.1); Sodium 145 mmol/L (136-145)
[2022-02-27 08:12] VITALS: BP 165/84; PULSE 68; RESP 16; TEMP 36.7; O2SAT 100
[2022-02-27] MEDS: Aspirin 81 MG CHEW PO (08:30)
--- NOTE | 2022-02-27 08:39 | PT.INTREAT ---
Date of service: 02/27/22 Time of Service: 08:08 PT Notes Visit Reasons: Agitation Inpatient Physical Therapy Treatment Note [facility] Date: 02/27/2022 PRECAUTIONS: Activity as tolerated, fall, dementia, PD SUBJECTIVE: Timbo (Óscar) agreeable to participating in PT. He responds appropriately with yes/no when asked questions, but does not offer up more in the way of conversation. OBJECTIVE: PAIN: No c/o pain BED MOBILITY/TRANSFERS Sit-stand: Min A Stand-sit: CGA GAIT Assistive Device: FWW Weight bearing: Full Assist: CGA Distance: 120' Deviation: Slow pacing, cueing for large amplitude movements, instructed patient to pause and resume walking to initiate large amplitude movements. TOILETING: Patient was incontinent of urine, requiring assist ASSESSMENT: Patient tolerated session well. Patient was able to tolerate gait training with use of FWW and with CGA. He requires cueing and instruction for large amplitude movements for safety. PLAN: Continue with global strengthening and general conditioning for continued progression toward baseline level of function. TREATMENT CODE/TIME: Session 1: 16 minutes; [id number] (08:08) Session 2: Patient refused afternoon session
--- NOTE | 2022-02-27 11:11 | OTIE_ITS ---
Occupational Therapy Notes Inpatient Occupational Therapy Evaluation Date: 02/27/22 Referring Doctor: Dr. Orosco OT Orders: Non urgent Precautions: Fall, standard, Full, utilize AFO PATIENT PROFILE/ADMITTING DIAGNOSIS: Pt is a 66 year old male who was admitted through the ED for a dx Parkinson's disease with (R) sided tremor, accumulated CVA and increased agitation and threatening behavior towards . Patient is admitted to Med Surg for agitation due to dementia and is awaiting a psych evaluation.? Past Medical History: All Active Problems? Agitation due to dementia (Acute) Medical History? Diabetes Hypertension Parkinson disease Surgical History? ankle fx Cholecystectomy Social History/Home Situation: Pt is unable to provide OT with information on his home setting. He shares with OT that he lives with his . Per CM note it appears that Marcell lives with his in a private home and she has had increased difficulty taking care of him. He does share that his is the perform who does most of his (B) LE dressing and bathing. SUBJECTIVE: Pt was quiet but agreeable to OT consult. OBJECTIVE: General Observation: pleasant, IV in (R) UE, utilizes AFO on (R) LE with shoes Mental Status: alert to name Pain: no c/o pain ROM: RUE rigid mobility but WFL L UE rigid mobility but WFL STRENGTH: RUE 5/5 throughout LUE 5/5 throughout FUNCTIONAL MOBILITY/ADLS: Transfers with FWW BATHING sitting in chair with max (A) Set up Bathing UE (I) face with mod vc, (I) (B) UE with step by step vc throughout Bathing LE max (A) DRESSING sitting in chair Dressing UE mod (A) [facility] gown Dressing LE mod vc for pulling up underwear and pt required max (A), max (A) with donning shoes (B) GROOMING mod (A) with hair TOILETING NT EATING sitting in chair with max (A) set up, pt was (I) with hand to mouth and use of silerware. BALANCE: Static sitting Good Dynamic Sitting Good Static Standing Good Dynamic Standing Good INFORMED CONSENT/EDUCATION: Pt instructed in purpose of OT Consult and plan of care. ASSESSMENT: Patient is a 66-year-old male referred to occupational therapy services with diagnosis of agitation due to dementia. Patient presents with clinical signs and symptoms consistent with dx, as demonstrated by the following impairment level findings/functional limitations: decreased cognitive awareness, safety risk, fall risk, requires vc for task initiation and procedural follow through, poor historian, decreased (I) in his LE dressing/bathing. Patient is assessed as a Moderate 77699 complexity based on the following: History: see above Examination: see functional limitations as noted above Presentation: evolving Decision Making: moderate complexity GOALS Goals x1 week 1. Transfers with S 2. Dressing sitting in chair with mod vc (I) 3. Bathing sitting in chair min vc UE and mod (A) LE 4. Toileting on toilet min (A) PLAN OF CARE/TREATMENT PLAN: 1x/day, 5 days/ week x 1week Initiate Occupational Therapy Services for bathing, dressing, grooming, toileting, eating, transfer training. DISCHARGE RECOMMENDATIONS OT recommends that pt return home with HH services vs. SNF when medically cleared per MD. TREATMENT TIME/MINUTES/CODES 20227, 57626, 30 minutes [facility]
[2022-02-27] MEDS: Acetaminophen 325 MG TAB 650 MG PO (13:26)
[2022-02-27] MEDS: LORazepam 1 MG TAB PO (14:47)
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
[2022-02-27 15:57] VITALS: BP 156/98; PULSE 83; RESP 17; TEMP 36; O2SAT 97
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
--- NOTE | 2022-02-27 18:43 | PDOC.CMPRO ---
- If Service Date Differs Date of service: 02/27/22 Time of Service: 18:43 Care Management Progress Note S/O: Marcell was sitting up in bed when CM met with him. His was by his side, visiting. She stated that today is not a great day, noting his hand tremor. Marcell had a Palliative consult today, as well as a Neurology consult, and his was present for both. Ana Lilia stated that she is not comfortable taking him home today, with no resolution to his symptoms that brought him in. She is advocating for inpatient psychiatric treatment. CM will send a referral to [facility] for consideration. CM will continue to follow. A: iTmbo Faith is a 66 year old male admitted to [facility] on 02/26/22 with agitation. P: Marcell will meet with Neuro and Palliative care, as well as [facility] to discuss mental health needs. He will return home with additional support vs transition to inpatient psychiatric treatment, if indicated. He is agreeable to a referral being sent to [facility]. He will follow up with his PCP and discharge plan of care. CM will continue to follow.
[2022-02-27 20:00] VITALS: BP 155/89; PULSE 94; RESP 17; TEMP 37.2; O2SAT 98
[2022-02-27] MEDS: Atorvastatin 10 MG TAB PO (20:15)
[2022-02-27] MEDS: Metoprolol 50 MG TAB PO (20:15)
[2022-02-27] MEDS: Gabapentin 100 MG CAP PO (20:19)
[2022-02-27 23:06] VITALS: BP 154/88; PULSE 92; RESP 17; TEMP 36.8; O2SAT 98
[2022-02-28 00:39] LABS: *AMPHETAMINES SCREEN URINE Negative (Negative); *BARBITURATES SCREEN URINE Negative (Negative); *BENZODIAZEPINES SCREEN URINE Negative (Negative); Cannabinoids THC Negative (Negative); Cocaine Screen,Urine Negative (Negative); METHADONE URINE SCREEN Negative (Negative); OPIATES URINE SCREEN Negative (Negative)
[2022-02-28 00:48] LABS: Tricyclic Antidepressants Negative (Negative)
[2022-02-28] MEDS: LORazepam 1 MG TAB PO ×2 (02:07→15:38)
[2022-02-28 08:05] VITALS: BP 117/66; PULSE 57; RESP 19; TEMP 36.4; O2SAT 99
[2022-02-28] MEDS: Metoprolol 50 MG TAB PO (08:11)
[2022-02-28] MEDS: Gabapentin 100 MG CAP PO ×2 (08:11→21:37)
[2022-02-28] MEDS: Aspirin 81 MG CHEW PO (08:11)
[2022-02-28] MEDS: DULoxetine 30 MG CAP 60 MG PO ×2 (08:11→21:37)
--- NOTE | 2022-02-28 09:26 | OT.INNT ---
Occupational Therapy Notes 02/28/22 OT went in to see pt who was sitting in the chair and notes that he is not interested in performing his ADLs at this time. He is tired from working with Physical Therapy and OT Will resume services tomorrow. Mariela Ellis, OTR/L
--- NOTE | 2022-02-28 11:02 | W.PM.PROGNOT ---
Date of Service Date of service: 02/28/22 Time of Service: 11:02 Assessment and Plan Assessment and plan (1) Palliative care patient: Status: Acute Assessment and plan: continue to follow inpatient, recommend follow up later this week remains FULL CODE at this time need for [facility] on file, pt verbalized Ana Lilia (2) Agitation due to dementia: Status: Acute Assessment and plan: no behavioral outbursts since hospitalized (3) Diabetes mellitus type 2 in obese: Status: Acute (4) Parkinson disease: Status: Chronic Assessment and plan: long history, neuro consulted with no medication changes. home meds resumed continue Sinemet and entacapone (5) History of stroke: Status: Acute Assessment and plan: continue PT/OT, need for ongoing outpatient rehab continue asa and statin (6) Depression with suicidal ideation: Status: Acute Assessment and plan: no suicidal ideation mental health consulted continue duloxetine (7) Nonadherence to medication: Status: Acute Assessment and plan: related to depression; have been restarted on home medications. (8) Discharge planning issues: Status: Acute Assessment and plan: referral to [facility] sent unsafe to return home based on 's report discussed with Dr Puckett Subjective Subjective Patient reports: no new complaints, feels better, tolerating liquids well, tolerating a regular diet, voiding w/o difficulty and afebrile; denies shortness of breath Interval history since last seen: ambulating in the malave with PT Exam Const General: cooperative, comfortable, no acute distress and frail appearing (older than stated age) Nutritional Appearance: overweight Orientation: alert and awake Other: resting tremor HENMT Head: normal to inspection, normocephalic and atraumatic Eyes General: appearance normal, both eyes and all related structures Resp Effort & Inspection: normal respiratory effort Cardio Rate: regular rate Rhythm: regular rhythm GI Inspection: normal to inspection Palpation: soft Auscultation: normal bowel sounds Skin General skin exam: no rashes or lesions noted Neuro General: patient alert and patient awake Extrem General: normal to inspection, full ROM and no pedal edema Objective Last Vital Signs Temp 36.4 C L 02/28/22 08:05 Pulse 57 L 02/28/22 08:05 Resp 19 02/28/22 08:05 BP 117/66 02/28/22 08:05 Pulse Ox 99 02/28/22 08:05 Laboratory Results - last 24 hr 02/27/22 22:40 Urine Opiates Screen Negative Urine Methadone Screen Negative Ur Barbiturates Screen Negative Ur Tricyclics Screen Negative Ur Amphetamines Screen Negative U Benzodiazepines Scrn Negative Urine Cocaine Screen Negative Ur THC Screen Negative
[2022-02-28 15:31] VITALS: BP 137/75; PULSE 60; RESP 18; TEMP 36.2; O2SAT 98
[2022-02-28] MEDS: Acetaminophen 325 MG TAB 650 MG PO (15:37)
--- NOTE | 2022-02-28 15:41 | PTTR_ITS ---
PT Notes Visit Reasons: Agitation SUBJECTIVE: pt sleepy this morning and is having a hard time keeping eyes open initially, pt eventually woke up and was able to participate with therapy, pt much more awake in the afternoon and was responding well with instructions. OBJECTIVE:? PAIN: No c/o pain ? BED MOBILITY/TRANSFERS? Sit-stand: Min A? Stand-sit: CGA ? GAIT? Assistive Device: FWW? Weight bearing: Full Assist: CGA ? Distance:? 120'x2 am /120', 300' pm? Deviation: Slow unsteady festinating gait with NBOS in the morning, started slow but increased pace on second round requiring cue for slower reza for safety. ? ASSESSMENT:?pt much more active in the afternoon with pt tolerating longer duration and distance while gait training. pt also require ceing for slower pa cing to avoid collision and stability during turns. pt was present in the afternoon helping to motivate pt to do more with therapy. PLAN: Continue with global strengthening and general conditioning for continued progression toward baseline level of function. TREATMENT CODE/TIME: 03614 (08:40-9:05am [id number]/ 2:25-2:50pm [id number])
--- NOTE | 2022-02-28 16:28 | W.PM.PROGNOT ---
Date of Service Date of service: 02/28/22 Time of Service: 16:28 Assessment and Plan Assessment and plan (1) Parkinson disease: Status: Chronic (2) Depression with suicidal ideation: Status: Acute (3) Headache: Status: Acute Assessment and plan: #1. Depression with SI/HI. He has a long history of depression with prior SI, exacerbated currently by recent stroke. I also suspect a cognitive/neurodegenerative component, but difficult to assess given his aphasia. Also not really interacting with me this afternoon - due to sedation from re-start of his medications? due to depression? I think the latter. Agree with psychiatric consultation and plan for [facility]. #2. Parkinsons. Please continue his home regimen of Sinemet 25/250mg QID at 9am, 1pm, 5pm, and 9pm along with entacapone TID at 9am, 1pm, and 5pm. #3. Headaches. It is unclear how much of his headaches are from his depression vs how much his headaches are contributing to his depression. He complained of headache for the first time today. I would prioritze treatment of his mental health. If he continues to have headaches, you could consider increasing his gabapentin to 100-300mg for migraine prevention. Ok from stroke stand-point to use NSAIDs if not otherwise contraindicated or if satsfied with APAP. #4. Stroke/afib. I briefly discussed anticoagulation with Marcell's to prevent future strokes. In the past, they have not wanted to be on anticoagulation due to risk of bleeding given that he does have falls from time to time. They have a really good relationship with his PCP, Dr. Stanley and want to discuss whether to start it or not with her. He will continue ASA + statin for now. He should follow-up with neurology at [facility]. Please call with any further questions or concerns. Subjective Subjective Interval history since last seen: Per hospitalist team, he seemed better this am, but this afternoon has been less responsive and not participating as much. Nursing notes patient has been more agitated since 's arrival. is concerned that he has had a constant headache in the back of his head since the stroke. Just before my arrival was fist time since he has been here that he complained of a headache. He also notes that all of his headaches are bifrontal and denies having occipital headaches to me. They are both interested in pursuing treatment at [facility]. He was re-started on most of his home medications today including Sinemet. Entacapone will be started tomorrow as brought in the medication today. Duloxetine was re-started at 60mg once daily. Exam Narrative Exam Narrative: Physical Exam: Sinemet taken ~4hr prior Constitutional: Patient of apparent stated age, well nourished, well developed, no acute distress; moderate-severe hypomimia Neuro: MS/Language/Speech: Alert, oriented, naming, repetition, and comprehension all impaired - able to follow 2 step command only and had difficulty crossing the midline mild dysarthria with moderate hypophonia Motor: Normal bulk. Mild bilateral UE cogwheel rigidity. FMM reduced bilaterally, no pronator drift. Diffuse moderate-severe bradykinesia, worse on the left. 5/5 strength in bilateral upper and lower extremities except for noted R foot drop (brace on currently). No resting tremors seen today - yesterday had intermittent bilateral UE pill-rolling tremors. Coordination: Finger to nose performed without dysmetria Gait: note tested Objective Last Vital Signs Temp 97.2 F L 02/28/22 15:31 Pulse 60 02/28/22 15:31 Resp 18 02/28/22 15:31 BP 137/75 02/28/22 15:31 Pulse Ox 98 02/28/22 15:31 Laboratory Results - last 24 hr 02/27/22 22:40 Urine Opiates Screen Negative Urine Methadone Screen Negative Ur Barbiturates Screen Negative Ur Tricyclics Screen Negative Ur Amphetamines Screen Negative U Benzodiazepines Scrn Negative Urine Cocaine Screen Negative Ur THC Screen Negative
--- NOTE | 2022-02-28 16:48 | CMPROGNOTE_ITS ---
- If Service Date Differs Date of service: 02/28/22 Time of Service: 16:48 Care Management Progress Note S/O: Marcell was sitting up in his chair today when CM met with him. His , Ana Lilia, was in the room visiting. CM sent the referral to [facility] today, and informed Marcell and Ana Lilia that it is currently pending. CM received a call from Marcell's PCP today, who is in agreement with the plan for him to have inpatient psychiatric care at [facility], and has called [facility] to encourage his acceptance. He was seen by Palliative and Neuro, who are also in agreement with this plan. CM will continue to follow. A: Timbo Faith is a 66 year old male admitted to [facility] on 02/26/22 with agitation. P: Marcell met with Neuro and Palliative care, as well as [facility] to discuss mental health needs. He will return home with additional support vs transition to inpatient psychiatric treatment, if indicated. He is agreeable to a referral being sent to [facility]. He will follow up with his PCP and discharge plan of care. CM will continue to follow.
[2022-02-28 21:36] VITALS: BP 111/70; PULSE 67; RESP 20; TEMP 36.8; O2SAT 96
[2022-02-28] MEDS: Metoprolol CR 50 MG TABCR PO (21:37)
[2022-02-28] MEDS: Atorvastatin 10 MG TAB PO (21:37)
[2022-03-01 06:50] LABS: Platelet Count 139 10^3/uL (130-400)
[2022-03-01] MEDS: DULoxetine 30 MG CAP 60 MG PO ×2 (08:18→20:23)
[2022-03-01] MEDS: Gabapentin 100 MG CAP PO ×2 (08:18→20:24)
[2022-03-01] MEDS: Aspirin 81 MG CHEW PO (08:18)
[2022-03-01] MEDS: Enoxaparin 40 MG/0.4 ML SYR SC (08:18)
[2022-03-01] MEDS: Metoprolol CR 50 MG TABCR PO ×2 (08:18→20:23)
[2022-03-01 08:39] VITALS: BP 158/89; PULSE 75; RESP 16; TEMP 36.1; O2SAT 99
--- NOTE | 2022-03-01 11:46 | W.PM.PROGNOT ---
Date of Service Date of service: 03/01/22 Time of Service: 15:41 Assessment and Plan Assessment and plan (1) Palliative care patient: Status: Acute Assessment and plan: continue to follow inpatient, recommend follow up later this week remains FULL CODE at this time need for [facility] on file, pt verbalized Ana Lilia (2) Agitation due to dementia: Status: Acute Assessment and plan: no behavioral outbursts since hospitalized (3) Diabetes mellitus type 2 in obese: Status: Acute (4) Parkinson disease: Status: Chronic Assessment and plan: long history, neuro consulted with no medication changes. home meds resumed continue Sinemet and entacapone (5) History of stroke: Status: Acute Assessment and plan: continue PT/OT, need for ongoing outpatient rehab continue asa and statin (6) Depression with suicidal ideation: Status: Acute Assessment and plan: no suicidal ideation mental health consulted continue duloxetine (7) Nonadherence to medication: Status: Acute Assessment and plan: related to depression; have been restarted on home medications. (8) Discharge planning issues: Status: Acute Assessment and plan: referral to [facility] sent and accepted, pending discharge tomorrow as bed available. discussed with Dr Puckett Subjective Subjective Patient reports: no new complaints, feels better, tolerating liquids well, tolerating a regular diet, voiding w/o difficulty and afebrile; denies shortness of breath Exam Const General: cooperative, comfortable, no acute distress and frail appearing (older than stated age) Nutritional Appearance: overweight Orientation: alert and awake Other: resting tremor HENMT Head: normal to inspection, normocephalic and atraumatic Eyes General: appearance normal, both eyes and all related structures Resp Effort & Inspection: normal respiratory effort Cardio Rate: regular rate Rhythm: regular rhythm GI Inspection: normal to inspection Palpation: soft Auscultation: normal bowel sounds Skin General skin exam: no rashes or lesions noted Neuro General: patient alert and patient awake Extrem General: normal to inspection, full ROM and no pedal edema Objective Last Vital Signs Temp 36.1 C L 03/01/22 08:39 Pulse 75 03/01/22 08:39 Resp 16 03/01/22 08:39 BP 158/89 H 03/01/22 08:39 Pulse Ox 99 03/01/22 08:39 Laboratory Results - last 24 hr 03/01/22 05:53 Plt Count 139
--- NOTE | 2022-03-01 12:46 | PT.INTREAT ---
Date of service: 03/01/22 Time of Service: 10:15 PT Notes Visit Reasons: Agitation Inpatient Physical Therapy Treatment Note [facility] Date: 03/01/2022 PRECAUTIONS: Activity as tolerated, fall, dementia, PD SUBJECTIVE: Timbo (Óscar) agreeable to participating in PT. He responds appropriately with yes/no when asked questions, and indicates that he is feeling better today. OBJECTIVE: PAIN: No c/o pain BED MOBILITY/TRANSFERS Sit-stand: SBA Stand-sit: SBA GAIT Assistive Device: No AD (U [employer] ARCHITECT) Weight bearing: Full Assist: CGA - Min A Distance: ~600' Deviation: Cueing for appropriate pacing for safety, cueing for large amplitude movements, instructed patient to pause and resume walking to initiate large amplitude movements. TOILETING: Patient was incontinent of urine and stool, requiring assist ASSESSMENT: Patient tolerated session well. Patient was able to tolerate gait training without use of assistive device, requiring decreased need for cueing for large amplitude movements and demonstrating increased pacing, although requires U [employer] ARCHITECT and CGA-Min A. He does still require cueing and instruction for large amplitude movements for safety. PLAN: Continue with global strengthening and general conditioning for continued progression toward baseline level of function. TREATMENT CODE/TIME: 26 minutes; 96602 x2 (08:44)
[2022-03-01] MEDS: metFORMIN 500 MG TAB 1000 MG PO (13:17)
[2022-03-01 15:56] VITALS: BP 123/76; PULSE 70; RESP 16; TEMP 36.5; O2SAT 97
[2022-03-01] MEDS: Acetaminophen 325 MG TAB 650 MG PO ×2 (16:14→20:24)
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
--- NOTE | 2022-03-01 17:14 | PDOC.CMPRO ---
- If Service Date Differs Date of service: 03/01/22 Time of Service: 17:14 Care Management Progress Note S/O: Marcell was sitting up in bed when CM met with him. His , Ana Lilia, was visiting. He reported that he is feeling good today. CM discussed Advanced directives and Marcell reported that he was ready to fill these out, with assistance. CM assisted Marcell in filling out his [place] AD, and provided him with the original, while sending one to his PCP, and providing one for his chart here at [facility]. KULWINDER received an acceptance from [facility] for tomorrow, therefore he will be transferred on Saturday03/02/22 at 10AM. He is agreeable to this plan, as is his . CM will set up RCT w/c van transport. CM will continue to follow. A: Timbo is a 66 year old male admitted to [facility] on 02/26/22 with agitation. P: Marcell met with Neuro and Palliative care, as well as [facility] to discuss mental health needs. He will return home with additional support vs transition to inpatient psychiatric treatment, if indicated. He is agreeable to a referral being sent to [facility]. He will follow up with his PCP and discharge plan of care. CM will continue to follow.
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
[2022-03-01 20:15] VITALS: BP 158/85; PULSE 75; RESP 16; TEMP 36.6; O2SAT 98
[2022-03-01] MEDS: Atorvastatin 10 MG TAB PO (20:24)
[2022-03-01 22:45] VITALS: BP 148/78; PULSE 70; RESP 16; TEMP 36; O2SAT 98
[2022-03-02] MEDS: Acetaminophen 325 MG TAB 650 MG PO (02:37)
[2022-03-02] MEDS: LORazepam 1 MG TAB PO (02:38)
[2022-03-02 07:54] VITALS: BP 164/96; PULSE 60; RESP 16; TEMP 36.6; O2SAT 99
[2022-03-02] MEDS: metFORMIN 500 MG TAB 1000 MG PO (08:26)
[2022-03-02] MEDS: Aspirin 81 MG CHEW PO (08:26)
[2022-03-02] MEDS: Metoprolol CR 50 MG TABCR PO (08:26)
[2022-03-02] MEDS: Gabapentin 100 MG CAP PO (08:26)
[2022-03-02] MEDS: DULoxetine 30 MG CAP 60 MG PO (08:26)
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
--- NOTE | 2022-03-02 10:21 | NUR.NOTE ---
Nursing Note: pt transfered to [facility], ambulance took pt out of facility at 10:10, tried to call report at 10:20. nurse was busy with a discharge and unable to take report at this time. will attempt to recall in 20 minutes.
--- NOTE | 2022-03-02 11:38 | PDOC.CMDIS ---
- If Service Date Differs Date of service: 03/02/22 Time of Service: 11:38 LACE Index Scoring Tool - Questions: Length of Stay (in days): 4 - 6 Acuity (Admit via E.D.?): Yes Comorbidities: Diabetes w/o Complication, Dementia E.D. Visits: 1 - Answers: Total Score: 13 Risk of Readmission: High Risk Care Management Discharge Reason for Hospitalization: agitation Discharge Plan: Timbo Faith transferred to the [facility] today. He was transported via [facility], and his is meeting him at the facility. He will follow up with his PCP and discharge plan of care. He is agreeable to this plan. Patient/Family Education Needs: Review discharge instructions and limitations, discussion of self care needs including ask me three. Services Needed at Discharge: Psychiatric Facility - Disposition Disposition: Other ([facility]) Transport via of: EMS ([employer])
== END 2022-03-02 10:05 | DRG 57 ==
LOC: ER 02-26 01:05 → MS 02-26 05:27
PROVIDERS: Internal Medicine; Admitting Provider General Practice; Emergency Provider Student in an Organized Health Care Education/Training Program; PCP Legal Medicine; Visit Provider General Practice
DX: G20 Parkinson's disease (principal); F02.81 Dementia in other diseases classified elsewhere, unspecified severity, with behavioral disturbance; R45.851 Suicidal ideations; E11.42 Type 2 diabetes mellitus with diabetic polyneuropathy; I10 Essential (primary) hypertension; I69.320 Aphasia following cerebral infarction; Z91.14 Patient's other noncompliance with medication regimen; Z96.82 Presence of neurostimulator; F32.A Depression, unspecified; R45.1 Restlessness and agitation; Z79.82 Long term (current) use of aspirin; Z79.84 Long term (current) use of oral hypoglycemic drugs; R51.9 Headache, unspecified; I48.0 Paroxysmal atrial fibrillation; M21.371 Foot drop, right foot; E66.3 Overweight; Z68.27 Body mass index [BMI] 27.0-27.9, adult; R45.850 Homicidal ideations
CPT/HCPCS: 36415; 80048; 80053; 80307; 84145; 87635; 93005; 97162; 97166; 97530; 97535; 99220; 99232; 99285; J1650; Q3014; 70450; 80320; 80329; 81003; 82140; 83735; 84443; 85025; 85049; 93010; 99219; 99225; 99233; 99239; G0378